=== PATIENT | male | born 1945 | race Two or more races ===

== ENCOUNTER 2020-05-25 12:54 | Emergency (ER) | payer OTHER, SELFPAY ==
[2020-05-25] VITALS (8 sets, daily range): BP systolic 140–173; BP diastolic 54–82; PULSE 64–92; RESP 16–18; TEMP 37–37.2; O2SAT 94–97; BMI 29.0
--- NOTE | ~2020-05-25 | CT_ITS ---
EXAM: CTA chest, abdomen and pelvis CLINICAL INDICATION: Sudden syncope and severe back pain TECHNIQUE: Axial multidetector CTA scan of the chest, abdomen and pelvis was performed following the intravenous administration of 85 cc Omnipaque 350. Coronal, sagittal and MIP reformatted images were also obtained at the acquisition workstation. This CT examination was performed using dose optimization techniques as appropriate, variously including the following: *Automated exposure control *Adjustment of mA and/or kV according to patient size (this includes techniques or standardized protocols for targeted exams where dose is matched to indication/reason for exam; i.e. extremities or head) *Use of iterative reconstruction technique DLP: 620 mGy-cm COMPARISON: None FINDINGS: VASCULAR: Thoracic aorta is normal in caliber. There is mild atherosclerotic disease of the thoracic aorta without evidence of aneurysm or gross dissection. Visualized portions of the proximal bilateral subclavian, common carotid and vertebral arteries are patent. The pulmonary arteries are suboptimally opacified due to contrast bolus timing and therefore not accurately evaluated. The abdominal aorta is nonaneurysmal and demonstrates moderate atherosclerotic disease. Celiac artery is stenotic but patent. Superior mesenteric artery is patent and demonstrates only mild ostial stenosis. Inferior mesenteric artery is patent. Bilateral renal arteries are patent. Deep arteries of the pelvis are patent without gross aneurysm. NON-VASCULAR: Central airways are patent. Lungs are well aerated. Mild emphysematous changes are noted diffusely. There is no lobar consolidation. No pleural effusion or pneumothorax. A few tiny pulmonary nodules are noted, for example a 2 mm right apical nodule on image [id number], series 7. The heart is normal in size. Coronary artery calcifications are present. There is no pericardial effusion. No gross mediastinal lymphadenopathy. Small calcification within the right thyroid lobe. The liver is normal in size but demonstrates diffusely decreased attenuation. Small coarse calcification of the right hepatic lobe. The gallbladder is normal in appearance. The common bile left is normal in caliber although there appears to be nonspecific 1.6 cm cystic abnormality of the pancreatic head. The pancreatic duct is mildly prominent measuring up to 4 mm in diameter. The spleen and adrenal glands are unremarkable. Symmetrically enhancing kidneys without hydronephrosis. There are a few small bilateral hypodensities which are incompletely characterized, for example a partially exophytic 1.5 cm hypodensity off the lateral mid pole of the left kidney. Normal caliber loops of small and large bowel. Moderate colonic diverticulosis without CT evidence to suggest active diverticulitis. 2 cm intraluminal density at the rectosigmoid junction likely represents stool, however, a polyp is not excluded (image 99/137, series 9). Normal appendix. No retroperitoneal lymphadenopathy. The bladder is decompressed and therefore not optimally characterized, however, there does appear to be diffuse bladder wall thickening. The prostate gland is not enlarged. No gross inguinal lymphadenopathy. Diffuse osteopenia with moderate degenerative changes of the thoracolumbar spine. CT/CT angio abdomen pelvis IMPRESSION: 1. Normal caliber thoracic and abdominal aorta without evidence for gross dissection or aneurysm. 2. Mild emphysema. 3. Diffusely decreased liver attenuation suggesting hepatic steatosis. 4. Suspected 1.6 cm cystic abnormality of the pancreatic head. Neoplasm not excluded. Further evaluation with MRI/MRCP recommended. 5. Nonspecific renal hypodensities. These may further evaluated with nonemergent renal ultrasound. 6. Moderate colonic diverticulosis. 7. 2 cm intraluminal density at the rectosigmoid junction likely represents stool, however, a polyp is not excluded. Colonoscopy may be warranted if not recently undertaken.
--- NOTE | 2020-05-25 17:10 | ECG_ITS ---
Test Reason : ABD PAIN Blood Pressure : / mmHG Vent. Rate : 071 BPM Atrial Rate : 071 BPM P-R Int : 138 ms QRS Dur : 092 ms QT Int : 402 ms P-R-T Axes : 059 026 048 degrees QTc Int : 436 ms Normal sinus rhythm with sinus arrhythmia Normal ECG When compared with ECG of 11-JUL-2013 11:48, Sinus rhythm has replaced Atrial fibrillation T wave amplitude has increased in Lateral leads Referred By: Tanna Escobedo Electronically Signed By:JEWELS FLORES
--- NOTE | 2020-05-25 17:25 | ED_ITS ---
HPI - General Adult General Chief complaint: Dizziness Stated complaint: BACK PAIN Time Seen by Provider: 05/25/20 17:00 Source: patient Mode of arrival: EMS Limitations: no limitations History of Present Illness HPI narrative: Patient comes emergency room complaining of left-sided back pain. Patient states it was mild yesterday when it started, not related to exertion or trauma, throughout the day it gradually became worse. Patient states that this afternoon he was walking down the street, states the pain in his back got worse, he got dizzy, states he felt lightheaded, lower himself to the ground, thinks that he passed out for a few seconds. Patient denies hitting his head, no headache, no neck pain, patient is not on blood thinners. Patient states that he was able to get up. Bystanders called the ambulance. Patient states he does not have any chest pain, no abdominal pain, at this time he is only complaining of left-sided back pain, no dizziness. Related Data Previous Rx's Medication Instructions Recorded baclofen 5 mg PO BID #10 tab 05/25/20 Allergies Allergy/AdvReac Type Severity Reaction Status Date / Time No Known Allergies [NKA] Allergy Mild NOT Unverified 10/30/19 16:06 APPLICABLE simvastatin [Zocor] Allergy Unknown Verified 01/24/17 00:00 Review of Systems Review of Systems: Constitutional : No Weight loss, No Fever, No Chills, No Night Sweats, No Fatigue, No Malaise ENT/Mouth : No Hearing loss, No Ear Pain, No Nasal Congestion, No Sinus Pain, No Hoarseness, No sore throat, No Rhinorrhea, No Swallowing Difficulty Eyes: No Eye Pain, No Swelling, No Redness, No Foreign Body, No Discharge, No Vision Changes Cardiovascular : No Chest Pain, No SOB, No Dyspnea on Exertion, No Orthopnea, No Edema, No Palpitations Respiratory : No Cough, No Sputum, No Wheezing, No Smoke Exposure, No Dyspnea Gastrointestinal : No Nausea, No Vomiting, No Diarrhea, No Constipation, No abdominal Pain, No Hematochezia, No Melena Genitourinary : no irregular bleeding, No Dysuria, No Urinary Frequency, No Hematuria, No Urinary Incontinence, No Urgency, No Flank Pain, No Urinary Flow Changes, No Hesitancy Musculoskeletal : Complaining of left-sided back pain, No Joint Swelling Skin : No Skin Lesions, No rash Neuro : No Weakness, No Numbness, No Paresthesias, complaining of brief episode of loss of consciousness Psych : No Anxiety/Panic, No Depression, No SI/HI/AH/VH, No Social Issues, Heme/Lymph: No Bruising, No Bleeding,No Lymphadenopathy Endocrine : No Polyuria, No Polydipsia, No Temperature Intolerance [facility] Past Medical History Medical History High cholesterol Hypertension Social History Social History Alcohol intake: current Alcohol intake frequency: 3 or more drinks per day Alcohol type: beer Smoking Status: Current every day smoker Use of substances other than those prescribed or required for medical reasons: No Advance Directives: No Advance Directives Information Provided: Yes Physical Exam Vital Signs: Vital Signs: Last Vital Signs Temp 98.9 F 05/25/20 17:53 Pulse 86 05/25/20 20:18 Resp 18 05/25/20 20:18 BP 146/78 H 05/25/20 20:18 Pulse Ox 95 05/25/20 20:18 Body Mass Index 29.0 Appearance: Alert. Oriented X3. No acute distress. Eyes: Pupils equal, round and reactive to light. ENT: Pharynx normal. Neck: Normal inspection. Neck supple. No lymph nodes noted. No crepitus CVS: Normal heart rate and rhythm. Pulses normal. Normal S1 and S2 Respiratory: No respiratory distress. Breath sounds normal. No Wheezing. No rales Abdomen: Soft and nontender. No rigidity. No distention. No palpable masses, declined GONZALO Back: No pain to palpation midline, no pain to palpation over the paraspinal muscles or back, pain on back flexion and extension Skin: Skin warm and dry. Normal skin color. Normal skin turgor. Extremities: No lower extremity edema. No lower extremity edema. No Lacerations. No Rash, upper extremity non intentional tremor noted, per patient at baseline for several years (no diagnosis of Parkinson's) Neuro: Oriented X 3. No motor deficit. No sensory deficit. Moving all extermities. No slurred speech. Course Course Course Narrative: I discussed the labs and imaging with the patient. At this time (19:50), patient has not urinated yet, UA pending. I discussed with the patient his CT scan. Patient has suspicious 1.6 cm cystic mass in the head of the pancreas which could represent an new neoplasm, patient will need an MRI or MRCP. Patient also has a 2 cm density in the rectosigmoid junction which could be stool however polyp is not excluded. Patient had a hemoglobin of 14 in 2013 and now is 8.9. Patient declined GONZALO. I discussed with the patient that I recommend that he gets admitted for the GI workup to rule out pancreatic and sigmoid rectal mass, and also for syncope workup. Patient states that he feels well and he wants to go home. Patient declined rectal exam, states that he had a colonoscopy 3 years ago. Patient will likely need another colonoscopy. Urinalysis clean, unlikely to have urethral lithiasis. Patient's pain may likely be musculoskeletal Medical Decision Making Lab Data Result diagrams: 05/25/20 17:21 05/25/20 17:21 Labs: Lab Results 05/25/20 05/25/20 05/25/20 Range/Units 17:21 17:21 17:21 WBC 8.1 (4.8-10.8) X10*3/uL RBC 3.41 L (4.60-5.80) X10*6/uL Hgb 8.9 L (14.0-18.0) g/dl Hct 29.1 L (42-52) % MCV 85.3 (80-98) fL MCH 26.1 L (27.0-33.0) pg MCHC 30.6 L (31.0-36.0) g/dl RDW 17.1 H (11.0-16.0) % Plt Count 222 (160-400) X10*3/uL MPV 10.0 (9.4-12.4) fL Immature Gran % (Auto) 1.0 H (0.0-0.4) % Neut % (Auto) 63.9 (45-73) % Lymph % (Auto) 21.7 (20-40) % [place] % (Auto) 11.9 H (2-11) % Eos % (Auto) 0.9 (0-4) % Baso % (Auto) 0.6 (0-2) % Lymph # (Auto) 1.8 (1.2-4.9) X10*3/uL [place] # (Auto) 1.0 (0.1-1.2) X10*3/uL Eos # (Auto) 0.1 (0.0-0.4) X10*3/uL Baso # (Auto) 0.1 (0.0-0.2) X10*3/uL Abs Immat Gran (auto) 0.08 H (0.00-0.03) X10*3/uL Absolute Neuts (auto) 5.2 (2.0-8.3) X10*3/uL Absolute Nucleated RBC 0.000 (0.0-0.012) X10*3/uL Nucleated RBC % (auto) 0.0 (0.0-0.2) /100WBC D-Dimer NG/ML Sodium 136 (135-145) mmol/L Potassium 5.2 H (3.3-5.1) mmol/L Chloride 103 (96-108) mmol/L Carbon Dioxide 23 (22-29) mmol/L Anion Gap 15 (12-20) BUN 10 (9-16) mg/dL Creatinine 0.91 (0.5-1.4) mg/dL Estim Creat Clear Calc 72.5 Estimated GFR > 60 Random Glucose 89 (60-115) mg/dL Calcium 8.6 (8.4-10.2) mg/dL Total Bilirubin (0.0-1.0) mg/dL Direct Bilirubin (0.0-0.5) mg/dL AST (5-37) U/L ALT (0-40) U/L Alkaline Phosphatase (39-117) U/L Troponin I High Sens 4.4 (<3.5-35.0) ng/L Total Protein (6.5-8.0) g/dL Albumin (3.5-5.0) g/dL Urine Color Urine Appearance Urine pH (5.0-8.0) Ur Specific [place] (1.005-1.025) Urine Protein (NEG-TRACE) MG/DL Urine Glucose (UA) (NEG) MG/DL Urine Ketones (NEG) MG/DL Urine Blood (NEG) Urine Nitrite (NEG) Ur Leukocyte Esterase (NEG) 05/25/20 05/25/20 05/25/20 Range/Units 17:21 17:21 20:21 WBC (4.8-10.8) X10*3/uL RBC (4.60-5.80) X10*6/uL Hgb (14.0-18.0) g/dl Hct (42-52) % MCV (80-98) fL MCH (27.0-33.0) pg MCHC (31.0-36.0) g/dl RDW (11.0-16.0) % Plt Count (160-400) X10*3/uL MPV (9.4-12.4) fL Immature Gran % (Auto) (0.0-0.4) % Neut % (Auto) (45-73) % Lymph % (Auto) (20-40) % [place] % (Auto) (2-11) % Eos % (Auto) (0-4) % Baso % (Auto) (0-2) % Lymph # (Auto) (1.2-4.9) X10*3/uL [place] # (Auto) (0.1-1.2) X10*3/uL Eos # (Auto) (0.0-0.4) X10*3/uL Baso # (Auto) (0.0-0.2) X10*3/uL Abs Immat Gran (auto) (0.00-0.03) X10*3/uL Absolute Neuts (auto) (2.0-8.3) X10*3/uL Absolute Nucleated RBC (0.0-0.012) X10*3/uL Nucleated RBC % (auto) (0.0-0.2) /100WBC D-Dimer 250 NG/ML Sodium 135 (135-145) mmol/L Potassium 5.0 (3.3-5.1) mmol/L Chloride 103 (96-108) mmol/L Carbon Dioxide 23 (22-29) mmol/L Anion Gap 14 (12-20) BUN 10 (9-16) mg/dL Creatinine 0.91 (0.5-1.4) mg/dL Estim Creat Clear Calc 72.5 Estimated GFR > 60 Random Glucose 89 (60-115) mg/dL Calcium 8.5 (8.4-10.2) mg/dL Total Bilirubin 1.1 H (0.0-1.0) mg/dL Direct Bilirubin 0.4 (0.0-0.5) mg/dL AST 40 H (5-37) U/L ALT 27 (0-40) U/L Alkaline Phosphatase 85 (39-117) U/L Troponin I High Sens (<3.5-35.0) ng/L Total Protein 7.4 (6.5-8.0) g/dL Albumin 4.0 (3.5-5.0) g/dL Urine Color YELLOW Urine Appearance CLEAR Urine pH 5.5 (5.0-8.0) Ur Specific [place] 1.010 (1.005-1.025) Urine Protein NEG (NEG-TRACE) MG/DL Urine Glucose (UA) NEG (NEG) MG/DL Urine Ketones NEG (NEG) MG/DL Urine Blood NEG (NEG) Urine Nitrite NEG (NEG) Ur Leukocyte Esterase NEG (NEG) Imaging Data CTA of chest and abdomen and pelvis: Radiologist's impression: VASCULAR: Thoracic aorta is normal in caliber. There is mild atherosclerotic disease of the thoracic aorta without evidence of aneurysm or gross dissection. Visualized portions of the proximal bilateral subclavian, common carotid and vertebral arteries are patent. The pulmonary arteries are suboptimally opacified due to contrast bolus timing and therefore not accurately evaluated. The abdominal aorta is nonaneurysmal and demonstrates moderate atherosclerotic disease. Celiac artery is stenotic but patent. Superior mesenteric artery is patent and demonstrates only mild ostial stenosis. Inferior mesenteric artery is patent. Bilateral renal arteries are patent. Deep arteries of the pelvis are patent without gross aneurysm. NON-VASCULAR: Central airways are patent. Lungs are well aerated. Mild emphysematous changes are noted diffusely. There is no lobar consolidation. No pleural effusion or pneumothorax. A few tiny pulmonary nodules are noted, for example a 2 mm right apical nodule on image [id number]/[id number], series 7. The heart is normal in size. Coronary artery calcifications are present. There is no pericardial effusion. No gross mediastinal lymphadenopathy. Small calcification within the right thyroid lobe. The liver is normal in size but demonstrates diffusely decreased attenuation. Small coarse calcification of the right hepatic lobe. The gallbladder is normal in appearance. The common bile left is normal in caliber although there appears to be nonspecific 1.6 cm cystic abnormality of the pancreatic head. The pancreatic duct is mildly prominent measuring up to 4 mm in diameter. The spleen and adrenal glands are unremarkable. Symmetrically enhancing kidneys without hydronephrosis. There are a few small bilateral hypodensities which are incompletely characterized, for example a partially exophytic 1.5 cm hypodensity off the lateral mid pole of the left kidney. Normal caliber loops of small and large bowel. Moderate colonic diverticulosis without CT evidence to suggest active diverticulitis. 2 cm intraluminal density at the rectosigmoid junction likely represents stool, however, a polyp is not excluded (image 99/137, series 9). Normal appendix. No retroperitoneal lymphadenopathy. The bladder is decompressed and therefore not optimally characterized, however, there does appear to be diffuse bladder wall thickening. The prostate gland is not enlarged. No gross inguinal lymphadenopathy. Diffuse osteopenia with moderate degenerative changes of the thoracolumbar spine. CT/CT angio abdomen pelvis IMPRESSION: 1. Normal caliber thoracic and abdominal aorta without evidence for gross dissection or aneurysm. 2. Mild emphysema. 3. Diffusely decreased liver attenuation suggesting hepatic steatosis. 4. Suspected 1.6 cm cystic abnormality of the pancreatic head. Neoplasm not excluded. Further evaluation with MRI/MRCP recommended. 5. Nonspecific renal hypodensities. These may further evaluated with nonemergent renal ultrasound. 6. Moderate colonic diverticulosis. 7. 2 cm intraluminal density at the rectosigmoid junction likely represents stool, however, a polyp is not excluded. Colonoscopy may be warranted if not recently undertaken. ECG Data Attestation: I personally reviewed and interpreted this ECG as follows: (Normal sinus, sinus arrhythmia, heart rate 71, no ST segment depression or elevation, QTC 436) Discharge Plan Discharge Clinical Impression: Syncope, Anemia, Pancreas cyst, Back pain Patient Disposition: Left Against Medical Advice Instructions: Syncope (ED), Back Pain (ED) Additional Instructions: You refused to be admitted the hospital. Please follow-up with your primary care doctor as it is possible that you may have a cyst versus mass in the pancreas and in the rectosigmoid junction. You will need to be seen by your primary care physician, Gastroenterology, you will likely need a colonoscopy. Please follow-up with your primary care physician tomorrow. If you have any worsening or new symptoms, please return to the emergency room or call 911 Prescriptions: New baclofen 5 mg tablet 5 mg PO BID Qty: 10 RF: 0 Interventions: ED Discharge Assessment Last Done: 05/25/20 22:04 Discharge Date/Time: 05/25/20 22:05
[2020-05-25 17:31] LABS: MANUAL DIFF FLAG NO
[2020-05-25 17:43] LABS: Basophils Absolute Auto 0.1 X10*3/uL (0.0-0.2); Basophils Percent Auto 0.6 % (0-2); Eosinophils Absolute Auto 0.1 X10*3/uL (0.0-0.4); Eosinophils Percent Auto 0.9 % (0-4); Hematocrit 29.1 % (42-52); Hemoglobin 8.9 g/dl (14.0-18.0); Imm Gran Abs Auto 0.08 X10*3/uL (0.00-0.03); Lymphocytes Absolute Auto 1.8 X10*3/uL (1.2-4.9); Lymphocytes Percent Auto 21.7 % (20-40); Mean Corpuscular HGB Conc 30.6 g/dl (31.0-36.0); Mean Corpuscular Hemoglobin 26.1 pg (27.0-33.0); Mean Corpuscular Volume 85.3 fL (80-98); Monocytes Percent Auto 11.9 % (2-11); Neutrophils Absolute Auto 5.2 X10*3/uL (2.0-8.3); Neutrophils Percent Auto 63.9 % (45-73); Platelet Count 222 X10*3/uL (160-400); Red Blood Count 3.41 X10*6/uL (4.60-5.80); Red Cell Distribution Width 17.1 % (11.0-16.0); White Blood Count 8.1 X10*3/uL (4.8-10.8)
[2020-05-25 17:47] LABS: D Dimer 250 NG/ML
[2020-05-25 17:57] LABS: Anion Gap 15 (12-20); Blood Urea Nitrogen 10 mg/dL (9-16); Calcium 8.6 mg/dL (8.4-10.2); Carbon Dioxide 23 mmol/L (22-29); Chloride 103 mmol/L (96-108); Creatinine Clr Calc Pharmacy 72.5; Estimated Glomerular Filt Rate > 60; Glucose Random 89 mg/dL (60-115); Potassium 5.2 mmol/L (3.3-5.1); Sodium 136 mmol/L (135-145)
[2020-05-25 18:00] LABS: Alanine Aminotransferase 27 U/L (0-40); Alkaline Phosphatase 85 U/L (39-117); Anion Gap 14 (12-20); Aspartate Amino Transferase 40 U/L (5-37); Bilirubin Direct 0.4 mg/dL (0.0-0.5); Bilirubin Total 1.1 mg/dL (0.0-1.0); Blood Urea Nitrogen 10 mg/dL (9-16); Calcium 8.5 mg/dL (8.4-10.2); Carbon Dioxide 23 mmol/L (22-29); Chloride 103 mmol/L (96-108); Creatinine Clr Calc Pharmacy 72.5; Estimated Glomerular Filt Rate > 60; Glucose Random 89 mg/dL (60-115); Sodium 135 mmol/L (135-145); Total Protein 7.4 g/dL (6.5-8.0)
[2020-05-25] MEDS: Morphine Sulfate 4 MG/ML CARTRIDGE IVPUSH (18:00)
--- NOTE | 2020-05-25 18:02 | PC.NURSE ---
pt needs assistance for change in position but is steady on feet once up. has gross UE tremor, drinks 3 beers daily and none since yesterday. this rn to make provider aware of tremor. denies ever having dt/sz.
[2020-05-25 18:04] LABS: Troponin-I High Sensitivity 4.4 ng/L (<3.5-35.0)
[2020-05-25] MEDS: iohexoL 350 MG/ML 100 ML INFUS..BTL IV (18:24)
--- NOTE | 2020-05-25 19:51 | PC.NURSE ---
md present to explain finding in ct. pt is refussing rectal exam. willing to give urine. encouraged to stay for admission but refusing.
[2020-05-25 20:37] LABS: Appearance Urine CLEAR; Color Urine YELLOW; Glucose Urine UA NEG (NEG); Leukocyte Esterase Urine NEG (NEG); Nitrite Urine NEG (NEG); PH 5.5 (5.0-8.0); Urine Blood NEG (NEG); Urine Ketones NEG (NEG); Urine Protein NEG (NEG-TRACE)
== END 2020-05-25 22:05 | disposition left against medical advice (07) ==
PROVIDERS: Emergency Provider Emergency Medicine
DX: R42 Dizziness and giddiness (principal); D64.9 Anemia, unspecified; R10.9 Unspecified abdominal pain; R93.5 Abnormal findings on diagnostic imaging of other abdominal regions, including retroperitoneum; K86.2 Cyst of pancreas; K76.0 Fatty (change of) liver, not elsewhere classified; I10 Essential (primary) hypertension; E78.5 Hyperlipidemia, unspecified; F17.200 Nicotine dependence, unspecified, uncomplicated
CPT/HCPCS: 36415; 71275; 74174; 80048; 80076; 81003; 84484; 85025; 85379; 93005; 96374; 99284; J2270; Q9967

== ENCOUNTER 2021-03-28 15:58 | Emergency (ER) | payer OTHER, SELFPAY ==
--- NOTE | ~2021-03-28 | CT_ITS ---
EXAMINATION: CT ABDOMEN AND PELVIS WITH CONTRAST CLINICAL INFORMATION: abd pain COMPARISON: 05/25/2020 TECHNIQUE: Multidetector volumetric imaging was performed from the superior aspect of the liver through the pubic symphysis following administration of 100 mL Omnipaque 300 intravenous contrast. Sagittal and coronal reformatted images were obtained on the technologist workstation.. This CT examination was performed using dose optimization techniques as appropriate, variously including the following: *Automated exposure control *Adjustment of mA and/or kV according to patient size (this includes techniques or standardized protocols for targeted exams where dose is matched to indication/reason for exam; i.e. extremities or head) *Use of iterative reconstruction technique DLP: 648 mGy-cm FINDINGS: LUNG BASES: Minimal dependent atelectasis. Small hiatal hernia. LIVER, GALLBLADDER, AND BILIARY TREE: The liver is normal in size, shape, and attenuation. No focal hepatic lesion or biliary ductal dilatation is present. Subtle focal thickening of the gallbladder fundus again seen possibly due to underlying adenomyomatosis. No pericholecystic inflammatory change or radiopaque gallstones appreciated. PANCREAS: Again there is a low-attenuation cystic structures seen within the pancreatic head/neck measuring up to 1.5 cm in diameter similar to the prior study. This appears to be within the duct. The main branch duct IPMN could have this appearance. There is mild prominence to the distal duct as it extends to the ampulla. No peripancreatic inflammatory changes or fluid. SPLEEN: Unremarkable. ADRENAL GLANDS: Unremarkable. KIDNEYS AND URETERS: There are several low-attenuation probable cysts seen within the left kidney. There is however a partially exophytic 1.2 cm lesion in the lateral midpole of the left kidney that does not measure simple cystic density and a solid left renal lesion cannot be excluded. BLADDER: Unremarkable. GASTROINTESTINAL TRACT: Colon is redundant with scattered colonic diverticulosis but no evidence for diverticulitis. No small bowel abnormality. Stomach is decompressed. ABDOMINAL WALL: No significant hernia is appreciated. LYMPHOVASCULAR STRUCTURES: Vascular calcification within the aorta iliac system. No bulky adenopathy PELVIC VISCERA: Unremarkable. OSSEOUS STRUCTURES: Multilevel degenerative changes in the spine. CT/CT abdomen pelvis w con IMPRESSION: Overall the appearance is similar to the 05/25/2020 study. There are several abnormalities of note 1. Probable adenomyomatosis of the gallbladder fundus. 2. Lesion in the pancreatic head/neck location does appear to be arising within the main pancreatic duct in this location. 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 This does appear to be stable in appearance from the prior study. Dynamic MRI/MRCP may be helpful to evaluate this further. Clinical correlation with endoscopic ultrasound may be helpful to define this further 3. There is a 1.2 cm lesion in the lateral midpole of the left kidney that does not measure cystic density. Uncertain if this represents a hyperdense cyst or a solid renal mass. This can also be assessed with a dynamic MRI with and without contrast. 4. Chronic appearing changes otherwise as described.
--- NOTE | ~2021-03-28 | XR_ITS ---
EXAMINATION: XR CHEST CLINICAL INFORMATION: Fall. COMPARISON: CTA chest, abdomen and pelvis dated from 05/25/2020. Chest radiograph dated from 07/11/2013. TECHNIQUE: AP view of the chest was obtained. FINDINGS: Stable appearance of the cardiomediastinal silhouette. No focal airspace opacities, pleural effusions or pneumothorax. Nonspecific diffuse interstitial prominence. No acute osseous abnormalities. XR/XR chest 1V IMPRESSION: Increased interstitial prominence which is nonspecific and could be associated with asthma, bronchitis, reactive airways disease or atypical infections. No pneumothorax or pleural effusions. No evidence of acutely displaced rib fractures.
--- NOTE | ~2021-03-28 | XR_ITS ---
EXAMINATION: XR HIP, LEFT CLINICAL INFORMATION: Fall, back pain, hip pain. COMPARISON: CTA of the chest abdomen and pelvis dated from 05/25/2020. TECHNIQUE: Two views of the left hip. FINDINGS: No evidence of acute fractures or malalignment. The femoral heads remain well-seated in their respective acetabula. Moderate degenerative changes in both hips with joint space narrowing, subcortical sclerosis and osteophytes. Enthesophytosis in the ischial tuberosities. Pelvic phleboliths. No unexpected radiopaque foreign bodies. XR/XR hip LT w PEL1V IMPRESSION: No acute fractures or malalignment. Moderate degenerative osteoarthritis.
--- NOTE | ~2021-03-28 | XR_ITS ---
EXAMINATION: XR FEMUR, LEFT CLINICAL INFORMATION: Pain COMPARISON: 06/18/2006 TECHNIQUE: AP and lateral views of the left femur were obtained. FINDINGS: Visualized bones are well-mineralized. There are mild 3 compartmental degenerative changes in the left knee joint with marginal spurring. There is no fracture seen. There is small joint effusion seen in suprapatellar. XR/XR femur LT 2V IMPRESSION: Mild degenerative changes and small joint effusion
--- NOTE | ~2021-03-28 | XR_ITS ---
EXAMINATION: XR LUMBOSACRAL SPINE CLINICAL INFORMATION: Fall, back pain. COMPARISON: CTA chest, abdomen and pelvis dated from 05/25/2020. TECHNIQUE: Three views of the lumbosacral spine. FINDINGS: No evidence of acute compression deformities or malalignment. Minimal retrolisthesis of L3 on L4 is unchanged. Redemonstration of moderate to severe multilevel lumbar spondylosis with disc space narrowing, osteophytes and bilateral facet arthropathy leading to varying degrees of neural foraminal encroachment, more noticeable in the lower lumbar spine. Sacroiliac joints are symmetric. Other partially imaged bony structures of the pelvis are within normal limits. Vascular calcifications. Nonobstructive bowel gas pattern. Pelvic phleboliths. XR/XR lumbar spine 2-3V IMPRESSION: No acute fractures or malalignment. Moderate to severe multilevel lumbar spondylosis.
[2021-03-28 16:05] VITALS: BP 147/54; BP 184/90; PULSE 67; PULSE 73; RESP 16; TEMP 37; O2SAT 100; O2SAT 98; BMI 26.5
--- NOTE | 2021-03-28 16:10 | ED_ITS ---
HPI - Fall General Chief Complaint: Fall Stated Complaint: LOW BACK PAIN S/P FALL Time Seen by Provider: 03/28/21 16:09 Source: patient and EMS Mode of arrival: EMS Limitations: no limitations History of Present Illness HPI Narrative: 75-year-old male stents via EMS for lower back and left hip pain. Patient fell on Sunday while at home, experienced some back and hip pain shortly after the fall. Pain has progressively gotten worse and now he is having difficult time ambulating. MD complaint: fall Onset (ago): day(s) (3) Fall from: standing Place fall occurred: home Loss of consciousness: none Prolonged down time: no Symptoms prior to fall: none Context: tripped/slipped and alcohol use Location of injury: back and pelvis Severity: moderate Severity scale (1-10): 7 Quality: aching Associated symptoms (after fall): denies Related Data Home Medications Medication Instructions Recorded Confirmed lisinopril 40 mg tablet 40 mg PO DAILY 03/28/21 03/28/21 metoprolol tartrate 50 mg tablet 50 mg PO BID 03/28/21 03/28/21 nicotine 21 mg/24 hr daily 1 patch TRANSDERMAL DAILY 03/28/21 03/28/21 transdermal patch pravastatin 20 mg tablet 20 mg PO BEDTIME 03/28/21 03/28/21 Allergies Allergy/AdvReac Type Severity Reaction Status Date / Time No Known Allergies [NKA] Allergy Mild NOT Verified 03/28/21 16:09 APPLICABLE simvastatin [Zocor] Allergy Unknown Unknown Unverified 03/28/21 16:09 Review of Systems Review of Systems: Constitutional: No Fever, No Chills ENT/Mouth: No Ear Pain, No Hoarseness, No sore throat Eyes: No Eye Pain, No Swelling, No Redness, No Foreign Body Cardiovascular: No Chest Pain, No SOB Respiratory: No Cough, No Dyspnea Gastrointestinal: No Nausea, No Vomiting, No Diarrhea, No abdominal Pain Genitourinary: No Dysuria, No Hematuria Musculoskeletal: positive lower back and left hip pain, No Myalgias, No Joint Swelling Skin: No Skin lacerations, No rash Neuro: No Weakness, No Numbness, No Paresthesias, No Loss of Consciousness, No Dizziness, No Headache Psych: No Anxiety/Panic, No Depression Heme/Lymph: no easy bruising, no Lymphadenopathy Endocrine: No Polyuria, No Polydipsia Yes all other systems are reviewed and are negative [facility] Past Medical History Attestation statement: The following information was validated with the patient. Source: old records reviewed Medical History High cholesterol Hypertension Social History Social History Alcohol intake: current Alcohol intake frequency: 3 or more drinks per day Alcohol type: beer Advance Directives: No Advance Directives Information Provided: No Physical Exam Vital Signs: Vital Signs: Last Vital Signs Temp 98.0 F 03/28/21 22:25 Pulse 93 03/28/21 22:25 Resp 17 03/28/21 22:25 BP 163/68 H 03/28/21 22: Pulse Ox 97 03/28/21 22:25 BMI result Body Mass Index 26.5 Appearance: Alert. Oriented X3. Moderate distress. Eyes: Pupils equal, round and reactive to light. Sclera nonicteric. ENT: Pharynx normal. Moist mucous membranes. Neck: Normal inspection. Neck supple. CVS: Normal heart rate and rhythm. Pulses normal. Respiratory: No respiratory distress. Breath sounds normal. Abdomen: Soft and diffusely tender to the left side. Obese. Skin: Skin warm and dry. Normal skin color. Normal skin turgor. Extremities: No lower extremity edema. Decreased made of motion to the left lower extremity secondary to pain. Neuro: No motor deficit. No sensory deficit. Cranial nerves 2-12 intact. Course Course Course Narrative: 75-year-old male presents with sustained from a fall. States that he was drinking alcohol Clifford night, and fell over onto his side. Did not hit his head or lose consciousness. Pain is gradually increased over the past few days, and at this point he is having a difficult time ambulating because of the pain. Will order labs, and imaging. 17:40 H&H 7.6, K elevated at 5.6. Troponin is elevated at 51.6 repeat ordered for 20:00. Order for guaiac. 19:03 blood consent signed by patient. Patient verbalized understanding of and risks and benefits of blood transfusion. Agrees with plan. Patient's pain continues to be 10/10 to the left lower extremity, no longer has back pain. Patient is describing pain in his femur. We will now order x-ray of the left femur. 20:[address] Gaxiola, Dr. Gaxiola would like him to be admitted to expedite his workup based on CT scan findings. Dr. Coats gastroenterology consulted by Dr. Gaxiola who agrees with this plan. Discussion with hospitalist regarding plan for admission. 20:38 patient would like to leave against medical advice. Multiple discussions with this FREELANCE DIRECTOR, hospitalist, RN all utilizing interpreter and translator provided information to the patient regarding risks of leaving against medical advice. Patient does continue to request to leave after blood transfusion. Patient wishes respected. Consultations Consultation #1: Minor Time: 20:30 Consultation #2: Hospitalist Time: 20:30 MDM - Fall Differential Diagnosis Differential diagnosis: Likely dislocation and fracture Medical Records Attestation: I reviewed the patient's medical records. Lab Data Attestation: I reviewed the patient's lab results. Result diagrams: 03/28/21 17:05 03/28/21 18:57 Labs: Lab Results 03/28/21 03/28/21 03/28/21 Range/Units 17:05 17:05 17:05 WBC 9.3 (4.8-10.8) X10*3/uL RBC 3.26 L (4.60-5.80) X10*6/uL Hgb 7.2 L (14.0-18.0) g/dl Hct 25.7 L (42.0-52.0) % MCV 78.8 L (80.0-98.0) fL MCH 22.1 L (27.0-33.0) pg MCHC 28.0 L (31.0-36.0) g/dl RDW 18.4 H (11.0-16.0) % Plt Count 316 (160-400) X10*3/uL MPV 9.9 (9.4-12.4) fL Immature Gran % (Auto) 1.2 H (0.0-0.4) % Neut % (Auto) 65.8 (45-73) % Lymph % (Auto) 16.9 L (20-40) % [place] % (Auto) 14.5 H (2-11) % Eos % (Auto) 1.1 (0-4) % Baso % (Auto) 0.5 (0-2) % Lymph # (Auto) 1.6 (1.2-4.9) X10*3/uL [place] # (Auto) 1.4 H (0.1-1.2) X10*3/uL Eos # (Auto) 0.1 (0.0-0.4) X10*3/uL Baso # (Auto) 0.1 (0.0-0.2) X10*3/uL Abs Immat Gran (auto) 0.11 H (0.00-0.03) X10*3/uL Absolute Neuts (auto) 6.1 (2.0-8.3) x10*3/uL Absolute Nucleated RBC 0.000 (0.0-0.012) X10*3/uL Nucleated RBC % (auto) 0.0 (0.0-0.2) /100WBC PT 12.9 (9.9-13.0) SEC INR 1.1 (0.9-1.1) Sodium 137 (135-145) mmol/L Potassium 5.6 H (3.3-5.1) mmol/L Chloride 104 (96-108) mmol/L Carbon Dioxide 25 (22-29) mmol/L Anion Gap 14 (12-20) BUN 16 (9-16) mg/dL Creatinine 1.17 (0.5-1.4) mg/dL Estim Creat Clear Calc 57.1 Estimated GFR > 60 Random Glucose 100 (60-115) mg/dL Calcium 9.2 D (8.4-10.2) mg/dL Total Bilirubin 0.8 (0.0-1.0) mg/dL Direct Bilirubin 0.3 (0.0-0.5) mg/dL AST 27 (5-37) U/L ALT 12 (0-40) U/L Alkaline Phosphatase 108 D (39-117) U/L Troponin I High Sens (<3.5-35.0) ng/L Total Protein 7.4 (6.5-8.0) g/dL Albumin 3.8 (3.5-5.0) g/dL Lipase 71 (8-78) U/L Urine Color Urine Appearance Urine pH (5.0-8.0) Ur Specific [place] (1.005-1.025) Urine Protein (NEG-TRACE) MG/DL Urine Glucose (UA) (NEG) MG/DL Urine Ketones (NEG) MG/DL Urine Blood (NEG) Urine Nitrite (NEG) Ur Leukocyte Esterase (NEG) Stool Occult Blood (NEGATIVE) COVID-19 (GUILLERMO) (Negative) COVID-19 Clin Com Blood Type Antibody Screen Crossmatch 03/28/21 03/28/21 03/28/21 Range/Units 17:05 18:57 18:57 WBC (4.8-10.8) X10*3/uL RBC (4.60-5.80) X10*6/uL Hgb (14.0-18.0) g/dl Hct (42.0-52.0) % MCV (80.0-98.0) fL MCH (27.0-33.0) pg MCHC (31.0-36.0) g/dl RDW (11.0-16.0) % Plt Count (160-400) X10*3/uL MPV (9.4-12.4) fL Immature Gran % (Auto) (0.0-0.4) % Neut % (Auto) (45-73) % Lymph % (Auto) (20-40) % [place] % (Auto) (2-11) % Eos % (Auto) (0-4) % Baso % (Auto) (0-2) % Lymph # (Auto) (1.2-4.9) X10*3/uL [place] # (Auto) (0.1-1.2) X10*3/uL Eos # (Auto) (0.0-0.4) X10*3/uL Baso # (Auto) (0.0-0.2) X10*3/uL Abs Immat Gran (auto) (0.00-0.03) X10*3/uL Absolute Neuts (auto) (2.0-8.3) x10*3/uL Absolute Nucleated RBC (0.0-0.012) X10*3/uL Nucleated RBC % (auto) (0.0-0.2) /100WBC PT (9.9-13.0) SEC INR (0.9-1.1) Sodium 137 (135-145) mmol/L Potassium 4.8 (3.3-5.1) mmol/L Chloride 107 (96-108) mmol/L Carbon Dioxide 23 (22-29) mmol/L Anion Gap 12 (12-20) BUN 15 (9-16) mg/dL Creatinine 1.07 (0.5-1.4) mg/dL Estim Creat Clear Calc 62.5 Estimated GFR > 60 Random Glucose 114 (60-115) mg/dL Calcium 8.6 D (8.4-10.2) mg/dL Total Bilirubin (0.0-1.0) mg/dL Direct Bilirubin (0.0-0.5) mg/dL AST (5-37) U/L ALT (0-40) U/L Alkaline Phosphatase (39-117) U/L Troponin I High Sens 51.6 H (<3.5-35.0) ng/L Total Protein (6.5-8.0) g/dL Albumin (3.5-5.0) g/dL Lipase (8-78) U/L Urine Color Urine Appearance Urine pH (5.0-8.0) Ur Specific [place] (1.005-1.025) Urine Protein (NEG-TRACE) MG/DL Urine Glucose (UA) (NEG) MG/DL Urine Ketones (NEG) MG/DL Urine Blood (NEG) Urine Nitrite (NEG) Ur Leukocyte Esterase (NEG) Stool Occult Blood (NEGATIVE) COVID-19 (GUILLERMO) Negative (Negative) COVID-19 Clin Com See Note Blood Type Antibody Screen Crossmatch 03/28/21 03/28/21 03/28/21 Range/Units 18:57 21:06 21:19 WBC (4.8-10.8) X10*3/uL RBC (4.60-5.80) X10*6/uL Hgb (14.0-18.0) g/dl Hct (42.0-52.0) % MCV (80.0-98.0) fL MCH (27.0-33.0) pg MCHC (31.0-36.0) g/dl RDW (11.0-16.0) % Plt Count (160-400) X10*3/uL MPV (9.4-12.4) fL Immature Gran % (Auto) (0.0-0.4) % Neut % (Auto) (45-73) % Lymph % (Auto) (20-40) % [place] % (Auto) (2-11) % Eos % (Auto) (0-4) % Baso % (Auto) (0-2) % Lymph # (Auto) (1.2-4.9) X10*3/uL [place] # (Auto) (0.1-1.2) X10*3/uL Eos # (Auto) (0.0-0.4) X10*3/uL Baso # (Auto) (0.0-0.2) X10*3/uL Abs Immat Gran (auto) (0.00-0.03) X10*3/uL Absolute Neuts (auto) (2.0-8.3) x10*3/uL Absolute Nucleated RBC (0.0-0.012) X10*3/uL Nucleated RBC % (auto) (0.0-0.2) /100WBC PT (9.9-13.0) SEC INR (0.9-1.1) Sodium (135-145) mmol/L Potassium (3.3-5.1) mmol/L Chloride (96-108) mmol/L Carbon Dioxide (22-29) mmol/L Anion Gap (12-20) BUN (9-16) mg/dL Creatinine (0.5-1.4) mg/dL Estim Creat Clear Calc Estimated GFR Random Glucose (60-115) mg/dL Calcium (8.4-10.2) mg/dL Total Bilirubin (0.0-1.0) mg/dL Direct Bilirubin (0.0-0.5) mg/dL AST (5-37) U/L ALT (0-40) U/L Alkaline Phosphatase (39-117) U/L Troponin I High Sens 29.8 (<3.5-35.0) ng/L Total Protein (6.5-8.0) g/dL Albumin (3.5-5.0) g/dL Lipase (8-78) U/L Urine Color YELLOW Urine Appearance CLEAR Urine pH 6.0 (5.0-8.0) Ur Specific [place] 1.015 (1.005-1.025) Urine Protein NEG (NEG-TRACE) MG/DL Urine Glucose (UA) NEG (NEG) MG/DL Urine Ketones NEG (NEG) MG/DL Urine Blood NEG (NEG) Urine Nitrite NEG (NEG) Ur Leukocyte Esterase NEG (NEG) Stool Occult Blood (NEGATIVE) COVID-19 (GUILLERMO) (Negative) COVID-19 Clin Com Blood Type A Positive Antibody Screen NEGATIVE Crossmatch See Detail 03/28/21 Range/Units Unknown WBC (4.8-10.8) X10*3/uL RBC (4.60-5.80) X10*6/uL Hgb (14.0-18.0) g/dl Hct (42.0-52.0) % MCV (80.0-98.0) fL MCH (27.0-33.0) pg MCHC (31.0-36.0) g/dl RDW (11.0-16.0) % Plt Count (160-400) X10*3/uL MPV (9.4-12.4) fL Immature Gran % (Auto) (0.0-0.4) % Neut % (Auto) (45-73) % Lymph % (Auto) (20-40) % [place] % (Auto) (2-11) % Eos % (Auto) (0-4) % Baso % (Auto) (0-2) % Lymph # (Auto) (1.2-4.9) X10*3/uL [place] # (Auto) (0.1-1.2) X10*3/uL Eos # (Auto) (0.0-0.4) X10*3/uL Baso # (Auto) (0.0-0.2) X10*3/uL Abs Immat Gran (auto) (0.00-0.03) X10*3/uL Absolute Neuts (auto) (2.0-8.3) x10*3/uL Absolute Nucleated RBC (0.0-0.012) X10*3/uL Nucleated RBC % (auto) (0.0-0.2) /100WBC PT (9.9-13.0) SEC INR (0.9-1.1) Sodium (135-145) mmol/L Potassium (3.3-5.1) mmol/L Chloride (96-108) mmol/L Carbon Dioxide (22-29) mmol/L Anion Gap (12-20) BUN (9-16) mg/dL Creatinine (0.5-1.4) mg/dL Estim Creat Clear Calc Estimated GFR Random Glucose (60-115) mg/dL Calcium (8.4-10.2) mg/dL Total Bilirubin (0.0-1.0) mg/dL Direct Bilirubin (0.0-0.5) mg/dL AST (5-37) U/L ALT (0-40) U/L Alkaline Phosphatase (39-117) U/L Troponin I High Sens (<3.5-35.0) ng/L Total Protein (6.5-8.0) g/dL Albumin (3.5-5.0) g/dL Lipase (8-78) U/L Urine Color Urine Appearance Urine pH (5.0-8.0) Ur Specific [place] (1.005-1.025) Urine Protein (NEG-TRACE) MG/DL Urine Glucose (UA) (NEG) MG/DL Urine Ketones (NEG) MG/DL Urine Blood (NEG) Urine Nitrite (NEG) Ur Leukocyte Esterase (NEG) Stool Occult Blood NEGATIVE (NEGATIVE) COVID-19 (GUILLERMO) (Negative) COVID-19 Clin Com Blood Type Antibody Screen Crossmatch Imaging Data Chest x-ray: Attestation: I personally reviewed and interpreted this imaging study as follows: Radiologist's impression: EXAMINATION: XR CHEST CLINICAL INFORMATION: Fall. COMPARISON: CTA chest, abdomen and pelvis dated from 05/25/2020. Chest radiograph dated from 07/11/2013. TECHNIQUE: AP view of the chest was obtained. FINDINGS: Stable appearance of the cardiomediastinal silhouette. No focal airspace opacities, pleural effusions or pneumothorax. Nonspecific diffuse interstitial prominence. No acute osseous abnormalities. XR/XR chest 1V IMPRESSION: Increased interstitial prominence which is nonspecific and could be associated with asthma, bronchitis, reactive airways disease or atypical infections. ? No pneumothorax or pleural effusions. ? No evidence of acutely displaced rib fractures. ? Hip x-ray: Attestation: I personally reviewed and interpreted this imaging study as follows: Radiologist's impression: EXAMINATION: XR HIP, LEFT CLINICAL INFORMATION: Fall, back pain, hip pain. COMPARISON: CTA of the chest abdomen and pelvis dated from 05/25/2020. TECHNIQUE: Two views of the left hip. FINDINGS: No evidence of acute fractures or malalignment. The femoral heads remain well-seated in their respective acetabula. Moderate degenerative changes in both hips with joint space narrowing, subcortical sclerosis and osteophytes. Enthesophytosis in the ischial tuberosities. Pelvic phleboliths. No unexpected radiopaque foreign bodies. XR/XR hip LT w PEL1V IMPRESSION: No acute fractures or malalignment. Moderate degenerative osteoarthritis. Lumbar spine: Attestation: I personally reviewed and interpreted this imaging study as follows: Radiologist's impression: EXAMINATION: XR LUMBOSACRAL SPINE CLINICAL INFORMATION: Fall, back pain. COMPARISON: CTA chest, abdomen and pelvis dated from 05/25/2020. TECHNIQUE: Three views of the lumbosacral spine. FINDINGS: No evidence of acute compression deformities or malalignment. Minimal retrolisthesis of L3 on L4 is unchanged. Redemonstration of moderate to severe multilevel lumbar spondylosis with disc space narrowing, osteophytes and bilateral facet arthropathy leading to varying degrees of neural foraminal encroachment, more noticeable in the lower lumbar spine. Sacroiliac joints are symmetric. Other partially imaged bony structures of the pelvis are within normal limits. Vascular calcifications. Nonobstructive bowel gas pattern. Pelvic phleboliths. XR/XR lumbar spine 2-3V IMPRESSION: No acute fractures or malalignment. ? Moderate to severe multilevel lumbar spondylos CT abdomen pelvis: Attestation: I personally reviewed and interpreted this imaging study as follows: Radiologist's impression: EXAMINATION: CT ABDOMEN AND PELVIS WITH CONTRAST CLINICAL INFORMATION: abd pain COMPARISON: 05/25/2020? TECHNIQUE: Multidetector volumetric imaging was performed from the superior aspect of the liver through the pubic symphysis following administration of 100 mL Omnipaque 300 intravenous contrast. Sagittal and coronal reformatted images were obtained on the technologist workstation.. This CT examination was performed using dose optimization techniques as appropriate, variously including the following: *Automated exposure control *Adjustment of mA and/or kV according to patient size (this includes techniques or standardized protocols for targeted exams where dose is matched to indication/reason for exam; i.e. extremities or head) *Use of iterative reconstruction technique DLP: 648 mGy-cm FINDINGS: LUNG BASES: Minimal dependent atelectasis. Small hiatal hernia.? LIVER, GALLBLADDER, AND BILIARY TREE: The liver is normal in size, shape, and attenuation. No focal hepatic lesion or biliary ductal dilatation is present. Subtle focal thickening of the gallbladder fundus again seen possibly due to underlying adenomyomatosis. No pericholecystic inflammatory change or radiopaque gallstones appreciated.? PANCREAS: Again there is a low-attenuation cystic structures seen within the pancreatic head/neck measuring up to 1.5 cm in diameter similar to the prior study. This appears to be within the duct. The main branch duct IPMN could have this appearance. There is mild prominence to the distal duct as it extends to the ampulla. No peripancreatic inflammatory changes or fluid.? SPLEEN: Unremarkable.? ADRENAL GLANDS: Unremarkable.? KIDNEYS AND URETERS: There are several low-attenuation probable cysts seen within the left kidney. There is however a partially exophytic 1.2 cm lesion in the lateral midpole of the left kidney that does not measure simple cystic density and a solid left renal lesion cannot be excluded.? BLADDER: Unremarkable.? GASTROINTESTINAL TRACT: Colon is redundant with scattered colonic diverticulosis but no evidence for diverticulitis. No small bowel abnormality. Stomach is decompressed.? ABDOMINAL WALL: No significant hernia is appreciated.? LYMPHOVASCULAR STRUCTURES: Vascular calcification within the aorta iliac system. No bulky adenopathy? PELVIC VISCERA: Unremarkable. OSSEOUS STRUCTURES: Multilevel degenerative changes in the spine.? CT/CT abdomen pelvis w con IMPRESSION: Overall the appearance is similar to the 05/25/2020 study. There are several abnormalities of note 1. Probable adenomyomatosis of the gallbladder fundus. 2. Lesion in the pancreatic head/neck location does appear to be arising within the main pancreatic duct in this location. 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 This does appear to be stable in appearance from the prior study. Dynamic MRI/MRCP may be helpful to evaluate this further. Clinical correlation with endoscopic ultrasound may be helpful to define this further 3. There is a 1.2 cm lesion in the lateral midpole of the left kidney that does not measure cystic density. Uncertain if this represents a hyperdense cyst or a solid renal mass. This can also be assessed with a dynamic MRI with and without contrast. 4. Chronic appearing changes otherwise as described. Femur x-ray: Attestation: I personally reviewed and interpreted this imaging study as follows: Radiologist's impression: EXAMINATION: XR FEMUR, LEFT CLINICAL INFORMATION: Pain? COMPARISON: 06/18/2006? TECHNIQUE: AP and lateral views of the left femur were obtained. FINDINGS: Visualized bones are well-mineralized. There are mild 3 compartmental degenerative changes in the left knee joint with marginal spurring. There is no fracture seen. There is small joint effusion seen in suprapatellar. XR/XR femur LT 2V IMPRESSION: Mild degenerative changes and small joint effusion ECG Data Attestation: I personally reviewed and interpreted this ECG as follows: ECG interpretation date: 03/28/21 ECG interpretation time: 17:06 Prior ECG tracings: available for review Interpretation: Vent. rate 71 BPM ME interval 142 ms QRS duration 86 ms QT/QTc 398/432 ms P-R-T axes 66 24 37 Normal sinus rhythm Normal ECG Critical Care Time Critical Care Time Critical Care Time: Yes Total Critical Care Time: 45 Attestation: I have personally provided critical care time exclusive of time spent on separately billable procedures. Time includes review of laboratory data, radiology results, discussion with consultants, and monitoring for potential decompensation. Interventions were performed as documented. Discharge Plan Discharge Clinical Impression: Anemia, Left kidney mass, Pancreatic lesion, Adenomyomatosis of gallbladder, Joint effusion Patient Disposition: Left Against Medical Advice Instructions: Anemia (ED) Additional Instructions: You were evaluated for injury sustained from a fall. Laboratory work indicated anemia, which required a unit of blood to be transfused. CT scan of abdomen pelvis shows adenomyomatosis of the gallbladder, a pancreatic lesion that requires MRI and MRCP and endoscopic ultrasound, and a mass on the left kidney. I discussed your case with Oncology, Dr. Gaxiola, and the hospitalist and we advised admission to the hospital for further testing. You declined admission, and decided for leaving against medical advice. You must follow-up with Oncology and Gastroenterology. These findings are highly suspicious for cancer. You may return at any time for further care. Thank you for choosing this emergency department for evaluation. Please follow-up with primary care physician as needed. Return to the emergency department for any new, concerning, or worsening symptoms. Prescriptions: No Action metoprolol tartrate 50 mg Tablet 50 mg PO BID 0RF nicotine 21 mg/24 hr Patch 24 Hour 1 patch TRANSDERMAL DAILY 0RF pravastatin 20 mg Tablet 20 mg PO BEDTIME 0RF lisinopril 40 mg Tablet 40 mg PO DAILY 0RF Referrals: Pepper Coats MD [Physician] - 2 days (Pancreatic lesion) Yu Gaxiola MD [Physician] - 2 days ([address] scan) Stand Alone Forms: Against Medical Advice Interventions: ED Discharge Assessment Last Done: 03/28/21 23:18
--- NOTE | 2021-03-28 16:13 | ECG_ITS ---
Test Reason : FALL Blood Pressure : / mmHG Vent. Rate : 071 BPM Atrial Rate : 071 BPM P-R Int : 142 ms QRS Dur : 086 ms QT Int : 398 ms P-R-T Axes : 066 024 037 degrees QTc Int : 432 ms Normal sinus rhythm Normal ECG When compared to the previous EKG of No significant changes seen Referred By: Destiny Calvillo Electronically Signed By:BIB ESPINOZA MD
[2021-03-28 17:10] LABS: MANUAL DIFF FLAG NO
[2021-03-28 17:13] VITALS: BP 155/58; PULSE 76; RESP 16; TEMP 37.1; O2SAT 99
[2021-03-28 17:18] LABS: Basophils Absolute Auto 0.1 X10*3/uL (0.0-0.2); Basophils Percent Auto 0.5 % (0-2); Eosinophils Absolute Auto 0.1 X10*3/uL (0.0-0.4); Eosinophils Percent Auto 1.1 % (0-4); Hematocrit 25.7 % (42.0-52.0); Hemoglobin 7.2 g/dl (14.0-18.0); INTERNATIONAL NORM RATIO 1.1 (0.9-1.1); Imm Gran Abs Auto 0.11 X10*3/uL (0.00-0.03); Imm Gran Pct Auto 1.2 % (0.0-0.4); Lymphocytes Absolute Auto 1.6 X10*3/uL (1.2-4.9); Lymphocytes Percent Auto 16.9 % (20-40); Mean Corpuscular Hemoglobin 22.1 pg (27.0-33.0); Mean Corpuscular Volume 78.8 fL (80.0-98.0); Mean Platelet Volume 9.9 fL (9.4-12.4); Monocytes Absolute Auto 1.4 X10*3/uL (0.1-1.2); Monocytes Percent Auto 14.5 % (2-11); Neutrophils Absolute Auto 6.1 x10*3/uL (2.0-8.3); Neutrophils Percent Auto 65.8 % (45-73); Platelet Count 316 X10*3/uL (160-400); Prothrombin Time 12.9 SEC (9.9-13.0); Red Blood Count 3.26 X10*6/uL (4.60-5.80); Red Cell Distribution Width 18.4 % (11.0-16.0); White Blood Count 9.3 X10*3/uL (4.8-10.8)
[2021-03-28 17:29] LABS: Alanine Aminotransferase 12 U/L (0-40); Albumin Level 3.8 g/dL (3.5-5.0); Alkaline Phosphatase 108 U/L (39-117); Anion Gap 14 (12-20); Aspartate Amino Transferase 27 U/L (5-37); Bilirubin Direct 0.3 mg/dL (0.0-0.5); Bilirubin Total 0.8 mg/dL (0.0-1.0); Blood Urea Nitrogen 16 mg/dL (9-16); Calcium 9.2 mg/dL (8.4-10.2); Carbon Dioxide 25 mmol/L (22-29); Chloride 104 mmol/L (96-108); Creatinine Clr Calc Pharmacy 57.1; Estimated Glomerular Filt Rate > 60; Glucose Random 100 mg/dL (60-115); Lipase 71 U/L (8-78); Potassium 5.6 mmol/L (3.3-5.1); Sodium 137 mmol/L (135-145); Total Protein 7.4 g/dL (6.5-8.0)
[2021-03-28 17:34] LABS: Troponin-I High Sensitivity 51.6 ng/L (<3.5-35.0)
[2021-03-28 18:01] LABS: OBS Int Ctl Valid YES; OBS1 NEGATIVE (NEGATIVE)
[2021-03-28] MEDS: Morphine Sulfate 4 MG/ML CARTRIDGE IVPUSH ×2 (18:06→19:18)
[2021-03-28] MEDS: 0.9 % Sodium Chloride 1,000 ML 999 ML IVCONT (18:06)
[2021-03-28] MEDS: Albuterol Sulfate (0.083%) 2.5 MG/3 ML VIAL.NEB 10 MG INHALE (18:06)
[2021-03-28] MEDS: ondansetron HCL 4 MG/2 ML VIAL IVPUSH (18:07)
[2021-03-28 18:11] VITALS: PULSE 78; RESP 20; O2SAT 95
[2021-03-28] MEDS: oxyCODONE HCl Immed Release 5 MG TABLET PO (19:18)
[2021-03-28 19:19] LABS: Anion Gap 12 (12-20); Blood Urea Nitrogen 15 mg/dL (9-16); Calcium 8.6 mg/dL (8.4-10.2); Carbon Dioxide 23 mmol/L (22-29); Chloride 107 mmol/L (96-108); Creatinine Clr Calc Pharmacy 62.5; Estimated Glomerular Filt Rate > 60; Glucose Random 114 mg/dL (60-115); Potassium 4.8 mmol/L (3.3-5.1); Sodium 137 mmol/L (135-145)
[2021-03-28 19:22] LABS: COVID-19 Test Negative (Negative); IDNOW Serial# 9DD0AD1C
--- NOTE | 2021-03-28 19:25 | PC.NURSE ---
provider WIRELESS CELLULAR TECHNICIAN Destiny, rudy RN and smudger at pt bedside to inform pt of questionably CT scan results and discussed pt staying in the hospital. pt adament that he does not want to stay in the hospital. pt reports he wants to go home and get things in order and park his car somewhere safe then he will return to the hospital .
[2021-03-28] MEDS: iohexoL 350 MG/ML 100 ML INFUS..BTL 85 ML IV (19:47)
--- NOTE | 2021-03-28 20:28 | PHA.MEDREC ---
Pharmacy Consult ? Medication Reconciliation Pharmacy has completed the medication reconciliation. [facility]
--- NOTE | 2021-03-28 20:38 | PM.IMHP ---
History of Present Illness Date of Service: 03/28/21 Chief Complaint: fall [facility] Medical History High cholesterol Hypertension Social History Alcohol intake: current Alcohol intake frequency: 3 or more drinks per day Alcohol type: beer Advance Directives: No Advance Directives Information Provided: No Meds Allergies Allergy/AdvReac Type Severity Reaction Status Date / Time No Known Allergies [NKA] Allergy Mild NOT Verified 03/28/21 16:09 APPLICABLE simvastatin [Zocor] Allergy Unknown Unknown Unverified 03/28/21 16:09 Home Medications Medication Instructions Recorded Confirmed Last Taken Type lisinopril 40 mg tablet 40 mg PO DAILY 03/28/21 03/28/21 Unknown History metoprolol tartrate 50 mg tablet 50 mg PO BID 03/28/21 03/28/21 Unknown History nicotine 21 mg/24 hr daily 1 patch TRANSDERMAL DAILY 03/28/21 03/28/21 Unknown History transdermal patch pravastatin 20 mg tablet 20 mg PO BEDTIME 03/28/21 03/28/21 Unknown History Physical Exam Vital Signs and Narrative: Vital Signs: Last Vital Signs Temp 98.8 F 03/28/21 17:13 Pulse 78 03/28/21 18:11 Resp 20 03/28/21 18:11 BP 155/58 H 03/28/21 17:13 Pulse Ox 99 03/28/21 17:13 BMI result Body Mass Index 26.5 Results Labs CBC and Chem 7: 03/28/21 17:05 03/28/21 18:57 Labs: Laboratory Results - last 24 hr 03/28/21 03/28/21 03/28/21 17:05 17:05 17:05 MCV 78.8 L MCH 22.1 L MCHC 28.0 L RDW 18.4 H Plt Count 316 MPV 9.9 Immature Gran % (Auto) 1.2 H Neut % (Auto) 65.8 Lymph % (Auto) 16.9 L [place] % (Auto) 14.5 H Eos % (Auto) 1.1 Baso % (Auto) 0.5 Lymph # (Auto) 1.6 [place] # (Auto) 1.4 H Eos # (Auto) 0.1 Baso # (Auto) 0.1 Abs Immat Gran (auto) 0.11 H Absolute Neuts (auto) 6.1 Absolute Nucleated RBC 0.000 Nucleated RBC % (auto) 0.0 PT 12.9 INR 1.1 Anion Gap 14 Estim Creat Clear Calc 57.1 Estimated GFR > 60 Random Glucose 100 Calcium 9.2 D Total Bilirubin 0.8 Direct Bilirubin 0.3 AST 27 ALT 12 Alkaline Phosphatase 108 D Total Protein 7.4 Albumin 3.8 Lipase 71 Stool Occult Blood COVID-19 (GUILLERMO) COVID-[employer] Blood Type Antibody Screen Crossmatch 03/28/21 03/28/21 03/28/21 18:57 18:57 18:57 MCV MCH MCHC RDW Plt Count MPV Immature Gran % (Auto) Neut % (Auto) Lymph % (Auto) [place] % (Auto) Eos % (Auto) Baso % (Auto) Lymph # (Auto) [place] # (Auto) Eos # (Auto) Baso # (Auto) Abs Immat Gran (auto) Absolute Neuts (auto) Absolute Nucleated RBC Nucleated RBC % (auto) PT INR Anion Gap 12 Estim Creat Clear Calc 62.5 Estimated GFR > 60 Random Glucose 114 Calcium 8.6 D Total Bilirubin Direct Bilirubin AST ALT Alkaline Phosphatase Total Protein Albumin Lipase Stool Occult Blood COVID-19 (GUILLERMO) Negative COVID-[employer] See Note Blood Type A Positive Antibody Screen NEGATIVE Crossmatch See Detail 03/28/21 Unknown MCV MCH MCHC RDW Plt Count MPV Immature Gran % (Auto) Neut % (Auto) Lymph % (Auto) [place] % (Auto) Eos % (Auto) Baso % (Auto) Lymph # (Auto) [place] # (Auto) Eos # (Auto) Baso # (Auto) Abs Immat Gran (auto) Absolute Neuts (auto) Absolute Nucleated RBC Nucleated RBC % (auto) PT INR Anion Gap Estim Creat Clear Calc Estimated GFR Random Glucose Calcium Total Bilirubin Direct Bilirubin AST ALT Alkaline Phosphatase Total Protein Albumin Lipase Stool Occult Blood NEGATIVE COVID-19 (GUILLERMO) COVID-[employer] Blood Type Antibody Screen Crossmatch Imaging Radiologist's Impressions: Impressions Chest X-Ray 03/28/21 16:52 IMPRESSION: Increased interstitial prominence which is nonspecific and could be associated with asthma, bronchitis, reactive airways disease or atypical infections. No pneumothorax or pleural effusions. No evidence of acutely displaced rib fractures. Hip/Pelvis X-Ray 03/28/21 16:52 IMPRESSION: No acute fractures or malalignment. Moderate degenerative osteoarthritis. Lumbar Spine X-Ray 03/28/21 16:52 IMPRESSION: No acute fractures or malalignment. Moderate to severe multilevel lumbar spondylosis. Femur X-Ray 03/28/21 19:18 IMPRESSION: Mild degenerative changes and small joint effusion Abdomen/Pelvis CT 03/28/21 19:49 IMPRESSION: Overall the appearance is similar to the 05/25/2020 study. There are several abnormalities of note 1. Probable adenomyomatosis of the gallbladder fundus. 2. Lesion in the pancreatic head/neck location does appear to be arising within the main pancreatic duct in this location. 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 This does appear to be stable in appearance from the prior study. Dynamic MRI/MRCP may be helpful to evaluate this further. Clinical correlation with endoscopic ultrasound may be helpful to define this further 3. There is a 1.2 cm lesion in the lateral midpole of the left kidney that does not measure cystic density. Uncertain if this represents a hyperdense cyst or a solid renal mass. This can also be assessed with a dynamic MRI with and without contrast. 4. Chronic appearing changes otherwise as described. Quality Stroke Does the patient have a stroke diagnosis?: No VTE Prior VTE?: No VTE Risk Level:: Medical - moderate - high VTE Device Contraindication: Treatment Not Indicated VTE Drug Contraindication: N/A - Med Ordered
[2021-03-28 21:15] VITALS: BP 152/63; PULSE 99; RESP 17; TEMP 37.1
[2021-03-28 21:20] LABS: Appearance Urine CLEAR; Color Urine YELLOW; Glucose Urine UA NEG (NEG); Leukocyte Esterase Urine NEG (NEG); Nitrite Urine NEG (NEG); Specific Gravity - Urine 1.015 (1.005-1.025); Urine Blood NEG (NEG); Urine Ketones NEG (NEG); Urine Protein NEG (NEG-TRACE)
--- NOTE | 2021-03-28 21:21 | PC.NURSE ---
pt receiving blood at this time. reports that he does not want to be admit to the hospital, that he will get his blood but then would like to go home. pt reports he will return another day
[2021-03-28 21:32] VITALS: BP 147/63; PULSE 96; RESP 15; TEMP 37
[2021-03-28 21:42] LABS: Troponin-I High Sensitivity 29.8 ng/L (<3.5-35.0)
--- NOTE | 2021-03-28 21:43 | PM.EVENT ---
Event Note Date of Service: 03/28/21 Event Note: ER wanted to admit the patient but patient refused to admitted. Went speak to the patient he is to stay for further. Patient mentioned that some stuff take care at home and he cannot get admitted to right. ER team to have the patient sign AMA forms
--- NOTE | 2021-03-28 21:50 | PC.NURSE ---
Hospitalist MD Smalls down to see pt. pt continues to report that he is not going to stay in the hospital this evening and that he will be back another day - pt reporting he would like to sign out AMA after his blood has finished administering
[2021-03-28 22:25] VITALS: BP 163/68; PULSE 93; RESP 17; TEMP 36.7; O2SAT 97
== END 2021-03-28 23:19 | disposition left against medical advice (07) ==
PROVIDERS: Nurse Practitioner Family; Emergency Provider Emergency Medicine
DX: D64.9 Anemia, unspecified (principal); K86.9 Disease of pancreas, unspecified; N28.89 Other specified disorders of kidney and ureter; D13.5 Benign neoplasm of extrahepatic bile ducts; M25.452 Effusion, left hip; M54.50 Low back pain, unspecified; I10 Essential (primary) hypertension; E78.5 Hyperlipidemia, unspecified; Z20.822 Contact with and (suspected) exposure to COVID-19; Z79.02 Long term (current) use of antithrombotics/antiplatelets; Z79.899 Other long term (current) drug therapy
CPT/HCPCS: 36415; 36430; 71045; 72100; 73502; 73552; 74177; 80048; 80076; 81003; 82272; 83690; 84484; 85025; 85610; 86850; 86900; 86901; 86923; 87635; 93005; 94640; 94644; 96361; 96374; 96375; 96376; 99284; 99291; J2270; J2405; P9016; Q9967

== ENCOUNTER 2021-04-18 16:20 | Outpatient (REF) | payer OTHER, SELFPAY ==
--- NOTE | ~2021-04-18 | MR_ITS ---
EXAMINATION: MR ABDOMEN WITHOUT CONTRAST CLINICAL INFORMATION: Renal mass. COMPARISON: Previous CT of the abdomen and pelvis March 2021 and CTA of the abdomen May 2020. TECHNIQUE: MR abdomen is performed without gadolinium contrast. IV contrast was not administered as the patient is claustrophobic. There is significant motion artifact. FINDINGS: LUNG BASES: The visualized lung bases are unremarkable. LIVER, GALLBLADDER, AND BILIARY TREE: The liver is normal in size and shape. There is mild fatty infiltration of the liver. No focal liver lesion or biliary ductal dilatation is seen. The gallbladder wall is irregular questionable for adenomyomatosis of the gallbladder wall. There are several small low signal densities adjacent to the gallbladder wall, questionable for small polyps or stones. PANCREAS: There is focal dilatation of the main pancreatic duct in the head of the pancreas measuring up to 1 cm. The pancreas is otherwise unremarkable. SPLEEN: Unremarkable. ADRENAL GLANDS: Unremarkable. KIDNEYS AND URETERS: There is a 1.5 cm lesion exophytic to the lateral midpole of the left kidney. This is slightly high signal on T1-weighted sequences and low signal on T2-weighted sequences. Complex cyst and solid renal lesion, particularly papillary-type renal cell carcinoma, should be considered. Gadolinium was not administered due to motion artifact and claustrophobia. Enhancement of this lesion cannot be assessed. This does not appear appreciably changed in size from May 2020 CTA. There are several adjacent small low signal T1 and high signal T2 lesions in the left kidney probably representing simple cysts. The largest measures 1 cm. The right kidney is normal appearing. GASTROINTESTINAL TRACT: There is diverticulosis of the colon. No ascites. The stomach is unremarkable. ABDOMINAL WALL: No significant hernia is appreciated. LYMPH NODES: No lymphadenopathy. VASCULAR: There is evidence of atherosclerotic disease. OSSEOUS STRUCTURES: Marrow signal normal. There is degenerative disc disease of the spine. MR/MR abdomen wo con IMPRESSION: Limited exam. The patient was claustrophobic and there is significant motion artifact. Gadolinium was not administered. 1.5 cm lesion exophytic to the lateral midpole of the left kidney. This may represent a solid renal lesion, in particular papillary-type renal cell carcinoma versus a complex cyst. This is similar in size to CTA May 2020. Follow-up ultrasound may be helpful. Several adjacent probable simple left renal cysts largest measuring 1 cm. Focal dilatation of the main pancreatic duct in the head of the pancreas. This is similar to May 2020 exam as well. Irregular appearance to the gallbladder wall questionable for adenomyomatosis of the gallbladder wall. Diverticulosis of the colon.
== END 2021-04-18 16:21 | disposition home or self-care (01) ==
LOC: HO.MRI 16:20
PROVIDERS: PCP Internal Medicine; Visit Provider Internal Medicine
DX: N28.89 Other specified disorders of kidney and ureter (principal)
CPT/HCPCS: 74181

== ENCOUNTER → 2021-05-13 13:43 | Outpatient (BNVA) | payer OTHER, SELFPAY | PROVIDERS: PCP Internal Medicine; Visit Provider Urology | DX: C64.9 Malignant neoplasm of unspecified kidney, except renal pelvis (principal) | CPT/HCPCS: 99202 ==

== ENCOUNTER 2021-10-19 10:32 | Outpatient (REF) | payer OTHER, SELFPAY ==
--- NOTE | ~2021-10-19 | US_ITS ---
EXAMINATION: US RETROPERITONEAL LIMITED (RENAL ONLY) CLINICAL INFORMATION: Malignant neoplasm of unspecified kidney, except renal pelvis. COMPARISON: MRI abdomen 04/18/2021. CT abdomen and pelvis 03/28/2021. TECHNIQUE: Real-time imaging of the kidneys. FINDINGS: RIGHT KIDNEY: 10.1 x 5.3 x 5.8 cm (SAG x AP x TRV). The kidney is normal in size, contour, and echogenicity. Renal cortical thickness is normal. No calculi or focal parenchymal lesions. No hydronephrosis. LEFT KIDNEY: 10.4 x 5.1 x 4.6 cm (SAG x AP x TRV). The kidney is normal in size, contour, and echogenicity. Renal cortical thickness is normal. There is a 1.3 x 1.4 x 1.3 cm solid lesion exophytic to the lateral midpole. This does not appear appreciably changed in size from previous exams. There are 2 cysts in the midpole measuring 1.2 x 1 x 1.3 cm and 0.8 x 0.6 x 1 cm. No renal calculi or hydronephrosis. US/US renal BI IMPRESSION: No appreciable change in the left renal mass exophytic to the lateral midpole. Small left renal cysts. Normal right kidney.
== END 2021-10-19 10:33 | disposition home or self-care (01) ==
LOC: HO.HMGCX 10:32
PROVIDERS: Visit Provider Urology
DX: C64.9 Malignant neoplasm of unspecified kidney, except renal pelvis (principal)
CPT/HCPCS: 76775

== ENCOUNTER → 2021-11-15 09:37 | Outpatient (BNVA) | payer OTHER, SELFPAY | PROVIDERS: PCP Internal Medicine; Visit Provider Urology | DX: C64.2 Malignant neoplasm of left kidney, except renal pelvis (principal) | CPT/HCPCS: 99212 ==

== ENCOUNTER 2022-03-12 17:20 | Emergency (ER) | payer OTHER, SELFPAY ==
--- NOTE | 2022-03-12 17:22 | ED.DIZZY ---
HPI - Dizziness General Chief Complaint: General Medical <Santa Menezes CNP - Last Filed: 03/12/22 17:29> Stated Complaint: dizziness/ high blood pressure? <Santa Menezes CNP - Last Filed: 03/12/22 17:29> Time Seen by Provider: 03/12/22 19:51 <Santa Menezes CNP - Last Filed: 03/12/22 17:29> Source: patient <Destiny Calvillo NP - Last Filed: 03/12/22 22:28> Mode of arrival: ambulatory <Destiny Calvillo NP - Last Filed: 03/12/22 22:28> Limitations: no limitations <Destiny Calvillo NP - Last Filed: 03/12/22 22:28> History of Present Illness HPI Narrative: 76-year-old male presents for an episode of dizziness with hypertension after drinking beer. Patient states that he is no longer dizzy, and feels that his dizziness be related to his alcohol intake. <Destiny Calvillo NP - Last Filed: 03/12/22 22:28> MD elicited complaint: dizziness <Destiny Calvillo NP - Last Filed: 03/12/22 22:28> Onset (ago): hour(s) (Within the hour of arrival) <Destiny Calvillo NP - Last Filed: 03/12/22 22:28> Severity: mild <Destniy Calvillo NP - Last Filed: 03/12/22 22:28> Description: lightheadedness <Destiny Calvillo NP - Last Filed: 03/12/22 22:28> Context: other (Alcohol intoxication) <Destiny Calvillo NP - Last Filed: 03/12/22 22:28> History of similar symptoms: Yes <Destiny Calvillo NP - Last Filed: 03/12/22 22:28> Relieving factors: rest <Destiny Calvillo NP - Last Filed: 03/12/22 22:28> Associated symptoms: denies other symptoms <Destiny Calvillo NP - Last Filed: 03/12/22 22:28> Related Data Home Medications: Home Medications Medication Instructions Recorded Confirmed lisinopril 40 mg tablet 40 mg PO DAILY 03/28/21 11/15/21 metoprolol tartrate 50 mg tablet 50 mg PO BID 03/28/21 11/15/21 nicotine 21 mg/24 hr daily 1 patch transdermal DAILY 03/28/21 11/15/21 transdermal patch pravastatin 20 mg tablet 20 mg PO BEDTIME 03/28/21 11/15/21 <Santa Menezes CNP - Last Filed: 03/12/22 17:29> Allergies/Adverse Reactions: Allergies Allergy/AdvReac Type Severity Reaction Status Date / Time No Known Allergies [NKA] Allergy Mild NOT Verified 11/15/21 10:09 APPLICABLE simvastatin [Zocor] Allergy Unknown Unknown Verified 11/15/21 10:09 <Santa Menezes CNP - Last Filed: 03/12/22 17:29> Review of Systems Review of Systems: Constitutional: Resolved dizziness, No Fever, No Chills Cardiovascular: No Chest Pain, No SOB Respiratory: No Cough, No Dyspnea Gastrointestinal: No Nausea, No Vomiting, No Diarrhea, No abdominal Pain Genitourinary: No Dysuria, No Hematuria Musculoskeletal: Note joint pain, No Myalgias, No Joint Swelling Skin: No Skin lacerations, No rash Neuro: No Weakness, No Numbness, No Paresthesias, No Loss of Consciousness, No Dizziness, No Headache <Destiny Calvillo NP - Last Filed: 03/12/22 22:28> Yes all other systems are reviewed and are negative <Destiny Calvillo NP - Last Filed: 03/12/22 22:28> [facility] Past Medical History Attestation statement: The following information was validated with the patient. <Destiny Calvillo NP - Last Filed: 03/12/22 22:28> Source: old records reviewed <Destiny Calvillo NP - Last Filed: 03/12/22 22:28> Medical History: Medical History Atrial fibrillation Borderline hyperlipidemia EtOH dependence High cholesterol HTN (hypertension) Hypertension Inhibited sex excitement Mild cognitive impairment OA (osteoarthritis) Obesity <Santa Menezes CNP - Last Filed: 03/12/22 17:29> Social History Social History: Social History Alcohol intake: current Alcohol intake frequency: 3 or more drinks per day Alcohol type: beer Advance Directives: No Advance Directives Information Provided: Yes <Santa Menezes CNP - Last Filed: 03/12/22 17:29> Physical Exam Vital Signs: Vital Signs: Last Vital Signs Temp 97.5 F 03/12/22 17:26 Pulse 86 03/12/22 17:26 Resp 18 03/12/22 17:26 BP 144/78 H 03/12/22 17:26 Pulse Ox 98 03/12/22 17:26 O2 Del Method 03/12/22 17:26 BMI result Body Mass Index 24.3 <Santa Menezes CNP - Last Filed: 03/12/22 17:29> Vital Signs: Last Vital Signs Temp 97.5 F 03/12/22 17:26 Pulse 86 03/12/22 17:26 Resp 18 03/12/22 17:26 BP 144/78 H 03/12/22 17:26 Pulse Ox 98 03/12/22 17:26 O2 Del Method 03/12/22 17:26 BMI result Body Mass Index 24.3 <Destiny Calvillo NP - Last Filed: 03/12/22 22:28> Appearance: Alert. Oriented X3. No acute distress. Eyes: Pupils equal, round and reactive to light. Sclera nonicteric. ENT: Pharynx normal. Neck: Normal inspection. Neck supple. CVS: Normal heart rate and rhythm. Pulses normal. Respiratory: No respiratory distress. Breath sounds normal. Abdomen: Soft and nontender. Skin: Skin warm and dry. Normal skin color. Normal skin turgor. Extremities: No lower extremity edema. Gait well-balanced well coordinated. Neuro: No motor deficit. No sensory deficit. Cranial nerves 2-12 intact. <Destiny Calvillo NP - Last Filed: 03/12/22 22:28> Course Course Course Narrative: This is an RME: Additional HPI, ROS, PE not included below will be deferred to primary provider. Patient is a 76-year-old male who presents emergency department for evaluation of dizziness with sudden onset at 14:00 has been intermittent since then. Currently without dizziness, resolved 30 minutes ago. Reports history of similar event 2 months ago resulting in a syncopal episode. Patient reports a history of high blood pressure, states he is not sure if this is the cause for his dizziness. he states he has been compliant with his antihypertensives. Denies headache, neck pain, vision changes, chest pain, shortness of breath, nausea, vomiting, numbness or tingling of extremities. No focal neurological deficits. Upon asking he does endorse that he consumed 4 beers today, however the dizziness started before drinking. Reports not being a daily drinker. Plan: labs, EKG <Santa Menezes, BACILIO - Last Filed: 03/12/22 17:29> This is an RME: Additional HPI, ROS, PE not included below will be deferred to primary provider. Patient is a 76-year-old male who presents emergency department for evaluation of dizziness with sudden onset at 14:00 has been intermittent since then. Currently without dizziness, resolved 30 minutes ago. Reports history of similar event 2 months ago resulting in a syncopal episode. Patient reports a history of high blood pressure, states he is not sure if this is the cause for his dizziness. he states he has been compliant with his antihypertensives. Denies headache, neck pain, vision changes, chest pain, shortness of breath, nausea, vomiting, numbness or tingling of extremities. No focal neurological deficits. Upon asking he does endorse that he consumed 4 beers today, however the dizziness started before drinking. Reports not being a daily drinker. Plan: labs, EKG 76-year-old male presents for an episode of dizziness that resolved. Patient has been drinking alcohol throughout the day, and states that he is no longer dizzy upon presentation to the emergency department. NIH stroke scale 0, Mateus coma Scale 15, patient is ambulatory with an even steady gait. Physical exam is unremarkable. Lung sounds clear to auscultation all lobes. Abdomen soft and nontender. Strength 5/5 to all extremities. Labs indicate a white count of 13.2, however patient does not have any upper respiratory symptoms, or indication of infection. Patient's H&H is 11.1/35.1, it is normally 8.9/29.1, he could possibly be dehydrated however I do not feel that IV fluid resuscitation was appropriate at this time. Patient is able to eat and drink without difficulty, I did encourage is patient to drink fluids other than alcohol. Patient is speaking in clear sentences, does not appear to be intoxicated, and would like to be discharged home. Patient verbalized understanding of and agrees to plan of care. Agrees to plan of care discharge home and understands signs symptoms indicating need for emergent intervention. <Destiny Calvillo NP - Last Filed: 03/12/22 22:28> Medical Decision Making Differential Diagnosis Differential Diagnoses: The differential diagnosis associated with the presentation includes <Destiny Calvillo NP - Last Filed: 03/12/22 22:28> Dizziness, alcohol intoxication, dehydration <Destiny Calvillo NP - Last Filed: 03/12/22 22:28> Lab Data MDM Lab Attestation statement: I reviewed the patient's lab results. <Destiny Calvillo NP - Last Filed: 03/12/22 22:28> Result Diagrams: 03/12/22 17:53 03/12/22 17:53 <Santa Menezes CNP - Last Filed: 03/12/22 17:29> Labs: Lab Results 03/12/22 03/12/22 03/12/22 Range/Units 17:52 17:52 17:52 WBC (4.8-10.8) X10*3/uL RBC (4.60-5.80) X10*6/uL Hgb (14.0-18.0) g/dl Hct (42.0-52.0) % MCV (80.0-98.0) fL MCH (27.0-33.0) pg MCHC (31.0-36.0) g/dl RDW (11.0-16.0) % Plt Count (160-400) X10*3/uL MPV (9.4-12.4) fL Immature Gran % (Auto) (0.0-0.4) % Neut % (Auto) (45-73) % Lymph % (Auto) (20-40) % [place] % (Auto) (2-11) % Eos % (Auto) (0-4) % Baso % (Auto) (0-2) % Lymph # (Auto) (1.2-4.9) X10*3/uL [place] # (Auto) (0.1-1.2) X10*3/uL Eos # (Auto) (0.0-0.4) X10*3/uL Baso # (Auto) (0.0-0.2) X10*3/uL Abs Immat Gran (auto) (0.00-0.03) X10*3/uL Absolute Neuts (auto) (2.0-8.3) x10*3/uL Absolute Nucleated RBC (0.0-0.012) X10*3/uL Nucleated RBC % (auto) (0.0-0.2) /100WBC Sodium (135-145) mmol/L Potassium (3.3-5.1) mmol/L Chloride (96-108) mmol/L Carbon Dioxide (22-29) mmol/L Anion Gap (12-20) BUN (9-16) mg/dL Creatinine (0.5-1.4) mg/dL Estim Creat Clear Calc Estimated GFR Random Glucose (60-115) mg/dL Calcium (8.4-10.2) mg/dL Magnesium (1.6-2.6) mg/dL Total Bilirubin (0.0-1.0) mg/dL AST (5-37) U/L ALT (0-40) U/L Alkaline Phosphatase (39-117) U/L Troponin I High Sens 4.1 (<3.5-35.0) ng/L Total Protein (6.5-8.0) g/dL Albumin (3.5-5.0) g/dL Ethyl Alcohol mg/dL COVID-19 (GUILLERMO) Negative (Negative) COVID-19 Clin Com See Note Influenza Type A (FLOR) Cancelled Influenza Type A (PCR) (Negative) Influenza Type B (FLOR) Cancelled Influenza Type B (PCR) (Negative) Influenza A & B Note Cancelled RSV RNA Qual (PCR) (Negative) SARS-CoV-2 RNA (RT-PCR) (Negative) 03/12/22 03/12/22 03/12/22 Range/Units 17:52 17:52 17:53 WBC 13.2 H (4.8-10.8) X10*3/uL RBC 3.73 L (4.60-5.80) X10*6/uL Hgb 11.1 L D (14.0-18.0) g/dl Hct 35.1 L D (42.0-52.0) % MCV 94.1 (80.0-98.0) fL MCH 29.8 (27.0-33.0) pg MCHC 31.6 (31.0-36.0) g/dl RDW 15.6 (11.0-16.0) % Plt Count 306 (160-400) X10*3/uL MPV 10.2 (9.4-12.4) fL Immature Gran % (Auto) 1.5 H (0.0-0.4) % Neut % (Auto) 67.9 (45-73) % Lymph % (Auto) 20.2 (20-40) % [place] % (Auto) 9.4 (2-11) % Eos % (Auto) 0.7 (0-4) % Baso % (Auto) 0.3 (0-2) % Lymph # (Auto) 2.7 (1.2-4.9) X10*3/uL [place] # (Auto) 1.2 (0.1-1.2) X10*3/uL Eos # (Auto) 0.1 (0.0-0.4) X10*3/uL Baso # (Auto) 0.0 (0.0-0.2) X10*3/uL Abs Immat Gran (auto) 0.20 H (0.00-0.03) X10*3/uL Absolute Neuts (auto) 8.9 H (2.0-8.3) x10*3/uL Absolute Nucleated RBC 0.000 (0.0-0.012) X10*3/uL Nucleated RBC % (auto) 0.0 (0.0-0.2) /100WBC Sodium (135-145) mmol/L Potassium (3.3-5.1) mmol/L Chloride (96-108) mmol/L Carbon Dioxide (22-29) mmol/L Anion Gap (12-20) BUN (9-16) mg/dL Creatinine (0.5-1.4) mg/dL Estim Creat Clear Calc Estimated GFR Random Glucose (60-115) mg/dL Calcium (8.4-10.2) mg/dL Magnesium (1.6-2.6) mg/dL Total Bilirubin (0.0-1.0) mg/dL AST (5-37) U/L ALT (0-40) U/L Alkaline Phosphatase (39-117) U/L Troponin I High Sens (<3.5-35.0) ng/L Total Protein (6.5-8.0) g/dL Albumin (3.5-5.0) g/dL Ethyl Alcohol 35 mg/dL COVID-19 (GUILLERMO) (Negative) COVID-19 Clin Com Influenza Type A (FLOR) Influenza Type A (PCR) NEGATIVE (Negative) Influenza Type B (FLOR) Influenza Type B (PCR) NEGATIVE (Negative) Influenza A & B Note RSV RNA Qual (PCR) NEGATIVE (Negative) SARS-CoV-2 RNA (RT-PCR) NEGATIVE (Negative) 03/12/22 Range/Units 17:53 WBC (4.8-10.8) X10*3/uL RBC (4.60-5.80) X10*6/uL Hgb (14.0-18.0) g/dl Hct (42.0-52.0) % MCV (80.0-98.0) fL MCH (27.0-33.0) pg MCHC (31.0-36.0) g/dl RDW (11.0-16.0) % Plt Count (160-400) X10*3/uL MPV (9.4-12.4) fL Immature Gran % (Auto) (0.0-0.4) % Neut % (Auto) (45-73) % Lymph % (Auto) (20-40) % [place] % (Auto) (2-11) % Eos % (Auto) (0-4) % Baso % (Auto) (0-2) % Lymph # (Auto) (1.2-4.9) X10*3/uL [place] # (Auto) (0.1-1.2) X10*3/uL Eos # (Auto) (0.0-0.4) X10*3/uL Baso # (Auto) (0.0-0.2) X10*3/uL Abs Immat Gran (auto) (0.00-0.03) X10*3/uL Absolute Neuts (auto) (2.0-8.3) x10*3/uL Absolute Nucleated RBC (0.0-0.012) X10*3/uL Nucleated RBC % (auto) (0.0-0.2) /100WBC Sodium 131 L (135-145) mmol/L Potassium 4.3 (3.3-5.1) mmol/L Chloride 100 (96-108) mmol/L Carbon Dioxide 20 L (22-29) mmol/L Anion Gap 15 (12-20) BUN 16 (9-16) mg/dL Creatinine 1.04 (0.5-1.4) mg/dL Estim Creat Clear Calc 63.3 Estimated GFR > 60 Random Glucose 89 (60-115) mg/dL Calcium 8.7 (8.4-10.2) mg/dL Magnesium 2.1 (1.6-2.6) mg/dL Total Bilirubin 0.7 (0.0-1.0) mg/dL AST 30 (5-37) U/L ALT 23 (0-40) U/L Alkaline Phosphatase 110 (39-117) U/L Troponin I High Sens (<3.5-35.0) ng/L Total Protein 6.9 (6.5-8.0) g/dL Albumin 3.6 (3.5-5.0) g/dL Ethyl Alcohol mg/dL COVID-19 (GUILLERMO) (Negative) COVID-19 Clin Com Influenza Type A (FLOR) Influenza Type A (PCR) (Negative) Influenza Type B (FLOR) Influenza Type B (PCR) (Negative) Influenza A & B Note RSV RNA Qual (PCR) (Negative) SARS-CoV-2 RNA (RT-PCR) (Negative) <Santa Menezes, BACILIO - Last Filed: 03/12/22 17:29> Lab Results 03/12/22 03/12/22 03/12/22 Range/Units 17:52 17:52 17:52 WBC (4.8-10.8) X10*3/uL RBC (4.60-5.80) X10*6/uL Hgb (14.0-18.0) g/dl Hct (42.0-52.0) % MCV (80.0-98.0) fL MCH (27.0-33.0) pg MCHC (31.0-36.0) g/dl RDW (11.0-16.0) % Plt Count (160-400) X10*3/uL MPV (9.4-12.4) fL Immature Gran % (Auto) (0.0-0.4) % Neut % (Auto) (45-73) % Lymph % (Auto) (20-40) % [place] % (Auto) (2-11) % Eos % (Auto) (0-4) % Baso % (Auto) (0-2) % Lymph # (Auto) (1.2-4.9) X10*3/uL [place] # (Auto) (0.1-1.2) X10*3/uL Eos # (Auto) (0.0-0.4) X10*3/uL Baso # (Auto) (0.0-0.2) X10*3/uL Abs Immat Gran (auto) (0.00-0.03) X10*3/uL Absolute Neuts (auto) (2.0-8.3) x10*3/uL Absolute Nucleated RBC (0.0-0.012) X10*3/uL Nucleated RBC % (auto) (0.0-0.2) /100WBC Sodium (135-145) mmol/L Potassium (3.3-5.1) mmol/L Chloride (96-108) mmol/L Carbon Dioxide (22-29) mmol/L Anion Gap (12-20) BUN (9-16) mg/dL Creatinine (0.5-1.4) mg/dL Estim Creat Clear Calc Estimated GFR Random Glucose (60-115) mg/dL Calcium (8.4-10.2) mg/dL Magnesium (1.6-2.6) mg/dL Total Bilirubin (0.0-1.0) mg/dL AST (5-37) U/L ALT (0-40) U/L Alkaline Phosphatase (39-117) U/L Troponin I High Sens 4.1 (<3.5-35.0) ng/L Total Protein (6.5-8.0) g/dL Albumin (3.5-5.0) g/dL Ethyl Alcohol mg/dL COVID-19 (GUILLERMO) Negative (Negative) COVID-19 Clin Com See Note Influenza Type A (FLOR) Cancelled Influenza Type A (PCR) (Negative) Influenza Type B (FLOR) Cancelled Influenza Type B (PCR) (Negative) Influenza A & B Note Cancelled RSV RNA Qual (PCR) (Negative) SARS-CoV-2 RNA (RT-PCR) (Negative) 03/12/22 03/12/22 03/12/22 Range/Units 17:52 17:52 17:53 WBC 13.2 H (4.8-10.8) X10*3/uL RBC 3.73 L (4.60-5.80) X10*6/uL Hgb 11.1 L D (14.0-18.0) g/dl Hct 35.1 L D (42.0-52.0) % MCV 94.1 (80.0-98.0) fL MCH 29.8 (27.0-33.0) pg MCHC 31.6 (31.0-36.0) g/dl RDW 15.6 (11.0-16.0) % Plt Count 306 (160-400) X10*3/uL MPV 10.2 (9.4-12.4) fL Immature Gran % (Auto) 1.5 H (0.0-0.4) % Neut % (Auto) 67.9 (45-73) % Lymph % (Auto) 20.2 (20-40) % [place] % (Auto) 9.4 (2-11) % Eos % (Auto) 0.7 (0-4) % Baso % (Auto) 0.3 (0-2) % Lymph # (Auto) 2.7 (1.2-4.9) X10*3/uL [place] # (Auto) 1.2 (0.1-1.2) X10*3/uL Eos # (Auto) 0.1 (0.0-0.4) X10*3/uL Baso # (Auto) 0.0 (0.0-0.2) X10*3/uL Abs Immat Gran (auto) 0.20 H (0.00-0.03) X10*3/uL Absolute Neuts (auto) 8.9 H (2.0-8.3) x10*3/uL Absolute Nucleated RBC 0.000 (0.0-0.012) X10*3/uL Nucleated RBC % (auto) 0.0 (0.0-0.2) /100WBC Sodium (135-145) mmol/L Potassium (3.3-5.1) mmol/L Chloride (96-108) mmol/L Carbon Dioxide (22-29) mmol/L Anion Gap (12-20) BUN (9-16) mg/dL Creatinine (0.5-1.4) mg/dL Estim Creat Clear Calc Estimated GFR Random Glucose (60-115) mg/dL Calcium (8.4-10.2) mg/dL Magnesium (1.6-2.6) mg/dL Total Bilirubin (0.0-1.0) mg/dL AST (5-37) U/L ALT (0-40) U/L Alkaline Phosphatase (39-117) U/L Troponin I High Sens (<3.5-35.0) ng/L Total Protein (6.5-8.0) g/dL Albumin (3.5-5.0) g/dL Ethyl Alcohol 35 mg/dL COVID-19 (GUILLERMO) (Negative) COVID-19 Clin Com Influenza Type A (FLOR) Influenza Type A (PCR) NEGATIVE (Negative) Influenza Type B (FLOR) Influenza Type B (PCR) NEGATIVE (Negative) Influenza A & B Note RSV RNA Qual (PCR) NEGATIVE (Negative) SARS-CoV-2 RNA (RT-PCR) NEGATIVE (Negative) 03/12/22 Range/Units 17:53 WBC (4.8-10.8) X10*3/uL RBC (4.60-5.80) X10*6/uL Hgb (14.0-18.0) g/dl Hct (42.0-52.0) % MCV (80.0-98.0) fL MCH (27.0-33.0) pg MCHC (31.0-36.0) g/dl RDW (11.0-16.0) % Plt Count (160-400) X10*3/uL MPV (9.4-12.4) fL Immature Gran % (Auto) (0.0-0.4) % Neut % (Auto) (45-73) % Lymph % (Auto) (20-40) % [place] % (Auto) (2-11) % Eos % (Auto) (0-4) % Baso % (Auto) (0-2) % Lymph # (Auto) (1.2-4.9) X10*3/uL [place] # (Auto) (0.1-1.2) X10*3/uL Eos # (Auto) (0.0-0.4) X10*3/uL Baso # (Auto) (0.0-0.2) X10*3/uL Abs Immat Gran (auto) (0.00-0.03) X10*3/uL Absolute Neuts (auto) (2.0-8.3) x10*3/uL Absolute Nucleated RBC (0.0-0.012) X10*3/uL Nucleated RBC % (auto) (0.0-0.2) /100WBC Sodium 131 L (135-145) mmol/L Potassium 4.3 (3.3-5.1) mmol/L Chloride 100 (96-108) mmol/L Carbon Dioxide 20 L (22-29) mmol/L Anion Gap 15 (12-20) BUN 16 (9-16) mg/dL Creatinine 1.04 (0.5-1.4) mg/dL Estim Creat Clear Calc 63.3 Estimated GFR > 60 Random Glucose 89 (60-115) mg/dL Calcium 8.7 (8.4-10.2) mg/dL Magnesium 2.1 (1.6-2.6) mg/dL Total Bilirubin 0.7 (0.0-1.0) mg/dL AST 30 (5-37) U/L ALT 23 (0-40) U/L Alkaline Phosphatase 110 (39-117) U/L Troponin I High Sens (<3.5-35.0) ng/L Total Protein 6.9 (6.5-8.0) g/dL Albumin 3.6 (3.5-5.0) g/dL Ethyl Alcohol mg/dL COVID-19 (GUILLERMO) (Negative) COVID-19 Clin Com Influenza Type A (FLOR) Influenza Type A (PCR) (Negative) Influenza Type B (FLOR) Influenza Type B (PCR) (Negative) Influenza A & B Note RSV RNA Qual (PCR) (Negative) SARS-CoV-2 RNA (RT-PCR) (Negative) <Destiny Calvillo NP - Last Filed: 03/12/22 22:28> Independent Interpretation I performed an independent interpretation of an: EKG <Destiny Calvillo NP - Last Filed: 03/12/22 22:28> Interpretation: Sinus rhythm with marked sinus arrhythmia with occasional , and consecutive Premature ventricular complexes Abnormal ECG When compared with ECG of 28-MAR-2021 17:06, Premature ventricular complexes are now Present Vent. rate 74 BPM DE interval 136 ms QRS duration 86 ms QT/QTc 380/421 ms P-R-T axes 39 12 34 12-MAR-2022 17:45:01 <Destiny Calvillo NP - Last Filed: 03/12/22 22:28> External Record Review External record reviewed: Outpatient record and Prior outpatient labs <Destiny Calvillo NP - Last Filed: 03/12/22 22:28> Discharge Plan Discharge Clinical Impression: Alcohol use <Santa Menezes CNP - Last Filed: 03/12/22 17:29> Patient Disposition: Home, Self-Care <Santa Menezes CNP - Last Filed: 03/12/22 17:29> Instructions: At-Risk Alcohol Use (ED) <Santa Menezes CNP - Last Filed: 03/12/22 17:29> Additional Instructions: You were evaluated for dizziness after drinking multiple beers. Please consider drinking less alcohol. Thank you for choosing this emergency department for evaluation. Please follow-up with primary care physician as needed. Return to the emergency department for any new, concerning, or worsening symptoms. <Santa Menezes CNP - Last Filed: 03/12/22 17:29> Prescriptions: No Action metoprolol tartrate 50 mg Tablet 50 mg PO BID nicotine 21 mg/24 hr Patch 24 Hour 1 patch TRANSDERMAL DAILY pravastatin 20 mg Tablet 20 mg PO BEDTIME lisinopril 40 mg Tablet 40 mg PO DAILY <Santa Menezes CNP - Last Filed: 03/12/22 17:29> Interventions: ED Discharge Assessment Last Done: 03/12/22 20:58 <Santa Menezes CNP - Last Filed: 03/12/22 17:29> Discharge Date/Time: 03/12/22 20:59 <Santa Menezes CNP - Last Filed: 03/12/22 17:29>
[2022-03-12 17:26] VITALS: BP 144/78; PULSE 86; RESP 18; TEMP 36.4; O2SAT 98; BMI 24.3
--- NOTE | 2022-03-12 17:27 | ECG_ITS ---
Test Reason : DIZZINESS Blood Pressure : / mmHG Vent. Rate : 074 BPM Atrial Rate : 074 BPM P-R Int : 136 ms QRS Dur : 086 ms QT Int : 380 ms P-R-T Axes : 039 012 034 degrees QTc Int : 421 ms Sinus rhythm with marked sinus arrhythmia with occasional , and consecutive Premature ventricular complexes Abnormal ECG When compared with ECG of 28-MAR-2021 17:06, Premature ventricular complexes are now Present Referred By: Santa Menezes Electronically Signed By:Jarred Flores
[2022-03-12 17:59] LABS: MANUAL DIFF FLAG NO
[2022-03-12 18:02] LABS: Basophils Percent Auto 0.3 % (0-2); Eosinophils Absolute Auto 0.1 X10*3/uL (0.0-0.4); Eosinophils Percent Auto 0.7 % (0-4); Hematocrit 35.1 % (42.0-52.0); Hemoglobin 11.1 g/dl (14.0-18.0); Imm Gran Pct Auto 1.5 % (0.0-0.4); Lymphocytes Absolute Auto 2.7 X10*3/uL (1.2-4.9); Lymphocytes Percent Auto 20.2 % (20-40); Mean Corpuscular HGB Conc 31.6 g/dl (31.0-36.0); Mean Corpuscular Hemoglobin 29.8 pg (27.0-33.0); Mean Corpuscular Volume 94.1 fL (80.0-98.0); Mean Platelet Volume 10.2 fL (9.4-12.4); Monocytes Absolute Auto 1.2 X10*3/uL (0.1-1.2); Monocytes Percent Auto 9.4 % (2-11); Neutrophils Absolute Auto 8.9 x10*3/uL (2.0-8.3); Neutrophils Percent Auto 67.9 % (45-73); Platelet Count 306 X10*3/uL (160-400); Red Blood Count 3.73 X10*6/uL (4.60-5.80); Red Cell Distribution Width 15.6 % (11.0-16.0); White Blood Count 13.2 X10*3/uL (4.8-10.8)
[2022-03-12 18:15] LABS: Ethanol 35 mg/dL
[2022-03-12 18:18] LABS: Alanine Aminotransferase 23 U/L (0-40); Albumin Level 3.6 g/dL (3.5-5.0); Alkaline Phosphatase 110 U/L (39-117); Anion Gap 15 (12-20); Aspartate Amino Transferase 30 U/L (5-37); Bilirubin Total 0.7 mg/dL (0.0-1.0); Blood Urea Nitrogen 16 mg/dL (9-16); Calcium 8.7 mg/dL (8.4-10.2); Carbon Dioxide 20 mmol/L (22-29); Chloride 100 mmol/L (96-108); Creatinine Clr Calc Pharmacy 63.3; Estimated Glomerular Filt Rate > 60; Glucose Random 89 mg/dL (60-115); Magnesium 2.1 mg/dL (1.6-2.6); Potassium 4.3 mmol/L (3.3-5.1); Sodium 131 mmol/L (135-145); Total Protein 6.9 g/dL (6.5-8.0)
[2022-03-12 18:24] LABS: COVID-19 Test Negative (Negative); IDNOW Serial# 16C4AD1C
[2022-03-12 18:25] LABS: Troponin-I High Sensitivity 4.1 ng/L (<3.5-35.0)
[2022-03-12 18:49] LABS: Influenza A PCR NEGATIVE (Negative); Influenza B PCR NEGATIVE (Negative); Resp Syncy Virus RNA Qual PCR NEGATIVE (Negative); SARS COV2 PCR INHOUSE NEGATIVE (Negative)
--- NOTE | 2022-03-12 20:57 | PC.NURSE ---
per provider Destiny, pt is ready for discharge. Reviewed discharge with pt. pt verbalized understanding. Pt a&o, no sob or chest pain. pt able to answer appropriately . Notified RN Naty.
== END 2022-03-12 20:59 | disposition home or self-care (01) ==
PROVIDERS: Nurse Practitioner Family; Emergency Provider Internal Medicine
DX: R42 Dizziness and giddiness (principal); I10 Essential (primary) hypertension; F10.10 Alcohol abuse, uncomplicated; Y90.1 Blood alcohol level of 20-39 mg/100 ml; Z20.822 Contact with and (suspected) exposure to COVID-19; Z20.828 Contact with and (suspected) exposure to other viral communicable diseases; Z79.899 Other long term (current) drug therapy
CPT/HCPCS: 0241U; 36415; 80053; 82077; 83735; 84484; 85025; 87635; 93005; 99283

== ENCOUNTER 2022-04-20 15:31 | Emergency (ER) | payer OTHER, SELFPAY ==
--- NOTE | ~2022-04-20 | CT_ITS ---
EXAMINATION: CT HEAD WITHOUT CONTRAST CLINICAL INFORMATION: Dizziness. COMPARISON: CT head 09/16/2007. TECHNIQUE: Contiguous axial imaging was performed from the skull base to vertex without intravenous administration of contrast. This CT examination was performed using dose optimization techniques as appropriate, variously including the following: *Automated exposure control *Adjustment of mA and/or kV according to patient size (this includes techniques or standardized protocols for targeted exams where dose is matched to indication/reason for exam; i.e. extremities or head) *Use of iterative reconstruction technique DLP: 732 mGy-cm FINDINGS: A 0.4 cm hyperdense focus in the left frontal lobe (4:30) is unchanged compared to 09/16/2007. There is no evidence of acute intracranial hemorrhage or edematous territorial infarction. A few foci of hypoattenuation in the periventricular and deep white matter are consistent with mild microangiopathy. Fontenot-white matter differentiation is preserved. Proportional prominence of the ventricles and sulcal spaces. No evidence for obstructive hydrocephalus. No abnormal mass effect or midline shift. No extra-axial fluid collections. No acute soft tissue or osseous abnormalities. Unchanged nonaggressive appearing cystic lucency in the right mandibular rami, likely degenerative in nature. Mucosal thickening of the paranasal sinuses with small mucous retention cysts in the maxillary sinuses. The mastoids and middle ear cavities are clear. A 0.6 cm soft tissue nodule in the right posterior scalp at the vertex (4:4) likely represents a sebaceous cyst or pilomatricoma. CT/CT head/brain wo IV con IMPRESSION: 1. No evidence of acute intracranial hemorrhage or edematous territorial infarction. 2. Small hyperdense focus in the left frontal lobe is unchanged dating back to 2007, which is reassuring, favoring to represent a benign calcification. 3. Soft tissue nodule in the scalp of the right posterior vertex, likely a sebaceous cyst or pilomatricoma. Correlation with direct visualization could be obtained.
--- NOTE | 2022-04-20 15:33 | ECG_ITS ---
Test Reason : PRE-SYNCOPE Blood Pressure : / mmHG Vent. Rate : 077 BPM Atrial Rate : 077 BPM P-R Int : 136 ms QRS Dur : 090 ms QT Int : 394 ms P-R-T Axes : 046 005 035 degrees QTc Int : 445 ms Sinus rhythm with Premature atrial complexes with Aberrant conduction Minimal voltage criteria for LVH, may be normal variant ( Chente product ) Borderline ECG When compared with ECG of 12-MAR-2022 17:45, No significant changes seen Referred By: Santa Menezes Electronically Signed By:JEWELS FLORES
[2022-04-20 15:46] VITALS: BP 144/72; PULSE 74; O2SAT 98; BMI 25.8
--- NOTE | 2022-04-20 16:15 | ED_ITS ---
HPI - Syncope General Chief Complaint: Dizziness Stated Complaint: near syncope Time Seen by Provider: 04/20/22 16:10 Source: patient Mode of arrival: EMS Limitations: no limitations History of Present Illness HPI narrative: Patient is 71 years old with history of hypertension hyperlipidemia alcohol dependence comes in for dizziness after drinking beer same in the past complaining of vertiginous feeling for last 2 days does have chronic tinnitus today prior to arrival got worse feels off balance no headache no recent fall no nausea no vomiting no focal weakness dizziness gets worse on movements no neck pain which did not have any CT scan for dizziness in the past patient did have left-sided chest pain and shoulder pain lasted for 2 hours patient does patient complain of bilateral tinnitus for years Related Data Home Medications Medication Instructions Recorded Confirmed lisinopril 40 mg tablet 40 mg PO DAILY 03/28/21 11/15/21 metoprolol tartrate 50 mg tablet 50 mg PO BID 03/28/21 11/15/21 nicotine 21 mg/24 hr daily 1 patch transdermal DAILY 03/28/21 11/15/21 transdermal patch pravastatin 20 mg tablet 20 mg PO BEDTIME 03/28/21 11/15/21 Previous Rx's Medication Instructions Recorded aspirin 81 mg tablet,delayed 81 mg PO DAILY #30 tabs 04/20/22 release meclizine 25 mg tablet 25 mg PO TID PRN dizziness #20 tabs 04/20/22 Allergies Allergy/AdvReac Type Severity Reaction Status Date / Time No Known Allergies [NKA] Allergy Mild NOT Verified 11/15/21 10:09 APPLICABLE simvastatin [Zocor] Allergy Unknown Unknown Verified 11/15/21 10:09 Review of Systems Review of Systems: Yes all other systems are reviewed and are negative [facility] Past Medical History Medical History Atrial fibrillation Borderline hyperlipidemia EtOH dependence High cholesterol HTN (hypertension) Hypertension Inhibited sex excitement Mild cognitive impairment OA (osteoarthritis) Obesity Social History Social History Alcohol intake: current Alcohol intake frequency: 3 or more drinks per day Alcohol type: beer Advance Directives: No Advance Directives Information Provided: Yes Physical Exam Vital Signs: Vital Signs: Last Vital Signs Pulse 75 04/20/22 19:02 Resp 18 04/20/22 19:02 BP 142/81 H 04/20/22 19:02 Pulse Ox 97 04/20/22 19:02 O2 Del Method 04/20/22 19:02 BMI result Body Mass Index 25.8 Appearance: Alert. Oriented X3. No acute distress. Denies any dizziness at this time Eyes: PERRLA, No Nystagmus ENT: Pharynx normal. Oral Mucosa moist Neck: Normal inspection. Neck supple. CVS: Normal heart rate and rhythm. Pulses normal. Respiratory: No respiratory distress. Equal air entry bilateral, no wheezing/rales/rhonchi Abdomen: Soft and nontender. Bowel sounds are present, no mass palpable, no CVA tenderness Skin: Skin warm and dry. Normal skin color. Normal skin turgor. Extremities: No lower extremity edema. No calf tenderness Neuro: Oriented X 3. No motor deficit. No sensory deficit.No cerebellar signs , cranial nerves II-XII intact Medications Administered Discontinued Medications Generic Name Dose Route Start Last Admin Trade Name Freq PRN Reason Stop Dose Admin Meclizine HCl 25 mg 04/20/22 16:26 04/20/22 17:15 Meclizine Hcl 25 Mg Tablet PO 04/20/22 16:27 25 mg ONCE ONE Administration Medical Decision Making Medical Decision Making [facility] Narrative: Patient with benign positional vertigo with history of chest pain last night no significant change in delta troponin EKG without any ischemic changes patient chest pain-free at this time advised patient to follow supercalender operator helper in 1-2 days for further workup will prescribe meclizine also no chest pain at this time patient feels comfortable going home will give aspirin Lab Data [facility] Lab Attestation statement: I reviewed the patient's lab results. 04/20/22 17:07 04/20/22 17:07 Labs: Lab Results 04/20/22 04/20/22 04/20/22 Range/Units 15:59 15:59 17:07 WBC 13.1 H (4.8-10.8) X10*3/uL RBC 3.86 L (4.60-5.80) X10*6/uL Hgb 11.3 L (14.0-18.0) g/dl Hct 35.0 L (42.0-52.0) % MCV 90.7 (80.0-98.0) fL MCH 29.3 (27.0-33.0) pg MCHC 32.3 (31.0-36.0) g/dl RDW 15.9 (11.0-16.0) % Plt Count 281 (160-400) X10*3/uL MPV 10.4 (9.4-12.4) fL Immature Gran % (Auto) 1.1 H (0.0-0.4) % Neut % (Auto) 74.4 H (45-73) % Lymph % (Auto) 15.0 L (20-40) % [place] % (Auto) 8.7 (2-11) % Eos % (Auto) 0.3 (0-4) % Baso % (Auto) 0.5 (0-2) % Lymph # (Auto) 2.0 (1.2-4.9) X10*3/uL [place] # (Auto) 1.1 (0.1-1.2) X10*3/uL Eos # (Auto) 0.0 (0.0-0.4) X10*3/uL Baso # (Auto) 0.1 (0.0-0.2) X10*3/uL Abs Immat Gran (auto) 0.15 H (0.00-0.03) X10*3/uL Absolute Neuts (auto) 9.8 H (2.0-8.3) x10*3/uL Absolute Nucleated RBC 0.000 (0.0-0.012) X10*3/uL Nucleated RBC % (auto) 0.0 (0.0-0.2) /100WBC Sodium (135-145) mmol/L Potassium (3.3-5.1) mmol/L Chloride (96-108) mmol/L Carbon Dioxide (22-29) mmol/L Anion Gap (12-20) BUN (9-16) mg/dL Creatinine (0.5-1.4) mg/dL Estim Creat Clear Calc Estimated GFR Random Glucose (60-115) mg/dL Calcium (8.4-10.2) mg/dL Magnesium (1.6-2.6) mg/dL Total Bilirubin (0.0-1.0) mg/dL AST (5-37) U/L ALT (0-40) U/L Alkaline Phosphatase (39-117) U/L Total Creatine Kinase (38-174) U/L Troponin I High Sens (<3.5-35.0) ng/L B-Natriuretic Peptide (<100) pg/mL Total Protein (6.5-8.0) g/dL Albumin (3.5-5.0) g/dL Ethyl Alcohol mg/dL COVID-19 (GUILLERMO) Negative (Negative) COVID-19 Clin Com See Note Influenza Type A (FLOR) Negative (Negative) Influenza Type B (FLOR) Negative (Negative) Influenza A & B Note See Note 04/20/22 04/20/22 04/20/22 Range/Units 17:07 17:07 17:07 WBC (4.8-10.8) X10*3/uL RBC (4.60-5.80) X10*6/uL Hgb (14.0-18.0) g/dl Hct (42.0-52.0) % MCV (80.0-98.0) fL MCH (27.0-33.0) pg MCHC (31.0-36.0) g/dl RDW (11.0-16.0) % Plt Count (160-400) X10*3/uL MPV (9.4-12.4) fL Immature Gran % (Auto) (0.0-0.4) % Neut % (Auto) (45-73) % Lymph % (Auto) (20-40) % [place] % (Auto) (2-11) % Eos % (Auto) (0-4) % Baso % (Auto) (0-2) % Lymph # (Auto) (1.2-4.9) X10*3/uL [place] # (Auto) (0.1-1.2) X10*3/uL Eos # (Auto) (0.0-0.4) X10*3/uL Baso # (Auto) (0.0-0.2) X10*3/uL Abs Immat Gran (auto) (0.00-0.03) X10*3/uL Absolute Neuts (auto) (2.0-8.3) x10*3/uL Absolute Nucleated RBC (0.0-0.012) X10*3/uL Nucleated RBC % (auto) (0.0-0.2) /100WBC Sodium 135 (135-145) mmol/L Potassium 5.2 H D (3.3-5.1) mmol/L Chloride 103 (96-108) mmol/L Carbon Dioxide 24 (22-29) mmol/L Anion Gap 13 (12-20) BUN 18 H (9-16) mg/dL Creatinine 1.36 (0.5-1.4) mg/dL Estim Creat Clear Calc 48.4 Estimated GFR 51 Random Glucose 94 (60-115) mg/dL Calcium 9.0 (8.4-10.2) mg/dL Magnesium 2.0 (1.6-2.6) mg/dL Total Bilirubin 0.8 (0.0-1.0) mg/dL AST 35 (5-37) U/L ALT 19 (0-40) U/L Alkaline Phosphatase 95 (39-117) U/L Total Creatine Kinase 172 (38-174) U/L Troponin I High Sens 102.3 H* D (<3.5-35.0) ng/L B-Natriuretic Peptide 196 H (<100) pg/mL Total Protein 7.0 (6.5-8.0) g/dL Albumin 3.8 (3.5-5.0) g/dL Ethyl Alcohol mg/dL COVID-19 (GUILLERMO) (Negative) COVID-19 Clin Com Influenza Type A (FLOR) (Negative) Influenza Type B (FLOR) (Negative) Influenza A & B Note 04/20/22 04/20/22 Range/Units 17:07 18:27 WBC (4.8-10.8) X10*3/uL RBC (4.60-5.80) X10*6/uL Hgb (14.0-18.0) g/dl Hct (42.0-52.0) % MCV (80.0-98.0) fL MCH (27.0-33.0) pg MCHC (31.0-36.0) g/dl RDW (11.0-16.0) % Plt Count (160-400) X10*3/uL MPV (9.4-12.4) fL Immature Gran % (Auto) (0.0-0.4) % Neut % (Auto) (45-73) % Lymph % (Auto) (20-40) % [place] % (Auto) (2-11) % Eos % (Auto) (0-4) % Baso % (Auto) (0-2) % Lymph # (Auto) (1.2-4.9) X10*3/uL [place] # (Auto) (0.1-1.2) X10*3/uL Eos # (Auto) (0.0-0.4) X10*3/uL Baso # (Auto) (0.0-0.2) X10*3/uL Abs Immat Gran (auto) (0.00-0.03) X10*3/uL Absolute Neuts (auto) (2.0-8.3) x10*3/uL Absolute Nucleated RBC (0.0-0.012) X10*3/uL Nucleated RBC % (auto) (0.0-0.2) /100WBC Sodium (135-145) mmol/L Potassium (3.3-5.1) mmol/L Chloride (96-108) mmol/L Carbon Dioxide (22-29) mmol/L Anion Gap (12-20) BUN (9-16) mg/dL Creatinine (0.5-1.4) mg/dL Estim Creat Clear Calc Estimated GFR Random Glucose (60-115) mg/dL Calcium (8.4-10.2) mg/dL Magnesium (1.6-2.6) mg/dL Total Bilirubin (0.0-1.0) mg/dL AST (5-37) U/L ALT (0-40) U/L Alkaline Phosphatase (39-117) U/L Total Creatine Kinase (38-174) U/L Troponin I High Sens 83.8 H (<3.5-35.0) ng/L B-Natriuretic Peptide (<100) pg/mL Total Protein (6.5-8.0) g/dL Albumin (3.5-5.0) g/dL Ethyl Alcohol < 10 mg/dL COVID-19 (GUILLERMO) (Negative) COVID-19 Clin Com Influenza Type A (FLOR) (Negative) Influenza Type B (FLOR) (Negative) Influenza A & B Note Independent Interpretation I performed an independent interpretation of an: EKG Interpretation: Normal sinus rhythm heart rate 77 beats per minute, PACs present LVH no acute ischemic change Discharge Plan Discharge Clinical Impression: Benign paroxysmal positional vertigo, Chest pain Patient Disposition: Home, Self-Care Instructions: Chest Pain (ED), Benign Paroxysmal Positional Vertigo (ED) Additional Instructions: Care and caution as advised Follow-up with supercalender operator helper for further workup about chest pain including stress test Start taking baby aspirin daily Report to the ER if recurrence of the chest pain Medication for dizziness as prescribed Prescriptions: New meclizine 25 mg tablet 25 mg PO TID PRN (Reason: dizziness) Qty: 20 0RF aspirin 81 mg tablet,delayed release (DR/EC) 81 mg PO DAILY Qty: 30 0RF No Action metoprolol tartrate 50 mg Tablet 50 mg PO BID nicotine 21 mg/24 hr Patch 24 Hour 1 patch TRANSDERMAL DAILY pravastatin 20 mg Tablet 20 mg PO BEDTIME lisinopril 40 mg Tablet 40 mg PO DAILY Referrals: Vern Calix MD [Physician] - 3 days Interventions: ED Discharge Assessment Last Done: 04/20/22 20:35 Discharge Date/Time: 04/20/22 20:37
[2022-04-20 16:34] LABS: COVID-19 Test Negative (Negative); IDNOW Serial# 55D5AD1C
[2022-04-20 16:45] LABS: IDNOW Serial# 9DB6401D; Influenza A Negative (Negative); Influenza B2 Negative (Negative)
[2022-04-20] MEDS: Meclizine HCl 25 MG TABLET PO (17:15)
[2022-04-20 17:18] LABS: MANUAL DIFF FLAG NO
[2022-04-20 17:19] LABS: Basophils Absolute Auto 0.1 X10*3/uL (0.0-0.2); Basophils Percent Auto 0.5 % (0-2); Eosinophils Percent Auto 0.3 % (0-4); Hemoglobin 11.3 g/dl (14.0-18.0); Imm Gran Abs Auto 0.15 X10*3/uL (0.00-0.03); Imm Gran Pct Auto 1.1 % (0.0-0.4); Mean Corpuscular HGB Conc 32.3 g/dl (31.0-36.0); Mean Corpuscular Hemoglobin 29.3 pg (27.0-33.0); Mean Corpuscular Volume 90.7 fL (80.0-98.0); Mean Platelet Volume 10.4 fL (9.4-12.4); Monocytes Absolute Auto 1.1 X10*3/uL (0.1-1.2); Monocytes Percent Auto 8.7 % (2-11); Neutrophils Absolute Auto 9.8 x10*3/uL (2.0-8.3); Neutrophils Percent Auto 74.4 % (45-73); Platelet Count 281 X10*3/uL (160-400); Red Blood Count 3.86 X10*6/uL (4.60-5.80); Red Cell Distribution Width 15.9 % (11.0-16.0); White Blood Count 13.1 X10*3/uL (4.8-10.8)
[2022-04-20 17:50] LABS: Ethanol < 10 mg/dL
[2022-04-20 17:53] VITALS: BP 144/75; PULSE 78
[2022-04-20 17:53] LABS: Alanine Aminotransferase 19 U/L (0-40); Albumin Level 3.8 g/dL (3.5-5.0); Alkaline Phosphatase 95 U/L (39-117); Anion Gap 13 (12-20); Aspartate Amino Transferase 35 U/L (5-37); Bilirubin Total 0.8 mg/dL (0.0-1.0); Blood Urea Nitrogen 18 mg/dL (9-16); Carbon Dioxide 24 mmol/L (22-29); Chloride 103 mmol/L (96-108); Creatinine Clr Calc Pharmacy 48.4; Estimated Glomerular Filt Rate 51; Glucose Random 94 mg/dL (60-115); Potassium 5.2 mmol/L (3.3-5.1); Sodium 135 mmol/L (135-145)
[2022-04-20 17:54] VITALS: BP 146/79; PULSE 83
[2022-04-20 17:55] VITALS: BP 143/78; PULSE 89
[2022-04-20 17:56] LABS: B Type Natriuretic Peptide 196 pg/mL (<100)
[2022-04-20 18:09] LABS: Troponin-I High Sensitivity 102.3 ng/L (<3.5-35.0)
[2022-04-20 18:52] LABS: Troponin-I High Sensitivity 83.8 ng/L (<3.5-35.0)
[2022-04-20 19:02] VITALS: BP 142/81; PULSE 75; RESP 18; O2SAT 97
== END 2022-04-20 20:37 | disposition home or self-care (01) ==
PROVIDERS: Nurse Practitioner Family; Emergency Provider Internal Medicine
DX: H81.13 Benign paroxysmal vertigo, bilateral (principal); R07.89 Other chest pain; R06.02 Shortness of breath; Z20.822 Contact with and (suspected) exposure to COVID-19; Z20.828 Contact with and (suspected) exposure to other viral communicable diseases; Z79.899 Other long term (current) drug therapy
CPT/HCPCS: 36415; 70450; 80053; 82077; 82550; 83735; 83880; 84484; 85025; 87502; 87635; 93005; 99283; 99284

== ENCOUNTER 2022-04-21 12:40 | Outpatient (REF) | payer OTHER, SELFPAY ==
--- NOTE | ~2022-04-21 | US_ITS ---
EXAMINATION: US RETROPERITONEAL LIMITED (RENAL ONLY) CLINICAL INFORMATION: Malignant neoplasm of unspecified kidney, except renal pelvis. COMPARISON: Renal ultrasound 10/19/2021. MRI abdomen 04/18/2021. CT abdomen and pelvis 03/28/2021. TECHNIQUE: Real-time imaging of the kidneys. FINDINGS: RIGHT KIDNEY: 10.5 x 5.1 x 6.4 cm (SAG x AP x TRV). The kidney is normal in size, contour, and echogenicity. Renal cortical thickness is normal. No calculi or focal parenchymal lesions. No hydronephrosis. LEFT KIDNEY: 10.5 x 5.2 x 4.0 cm (SAG x AP x TRV). The kidney is normal in size, contour, and echogenicity. Renal cortical thickness is normal. No renal calculi or hydronephrosis. There is a solid exophytic upper to mid pole renal mass present measuring 1.1 x 1.2 x 1.3 cm. Previous ultrasound measurements are 1.3 x 1.4 x 1.3 cm. On the prior MRI abdomen, this measured 1.5 cm. Some benign Bosniak class I left-sided renal cysts are again seen which need no additional imaging or follow up. US/US renal BI IMPRESSION: Solid left renal mass, slightly smaller than previously noted, although differences may be within the margin of measuring error.
== END 2022-04-21 12:41 | disposition home or self-care (01) ==
LOC: HO.US 12:40
PROVIDERS: Visit Provider Urology
DX: C64.9 Malignant neoplasm of unspecified kidney, except renal pelvis (principal)
CPT/HCPCS: 76775

== ENCOUNTER 2022-05-09 18:35 | Inpatient (IN) | payer OTHER, SELFPAY ==
--- NOTE | ~2022-05-09 | CT_ITS ---
EXAMINATION: CT head/brain wo IV con CLINICAL INFORMATION: Reason for Exam dizziness COMPARISON: CT head without contrast 04/20/2022 TECHNIQUE: Contiguous axial imaging was performed from the skull base to vertex without intravenous contrast. Sagittal and coronal reformatted images were obtained. This CT examination was performed using dose optimization techniques as appropriate, variously including the following: * Automated exposure control * Adjustment of mA and/or kV according to patient size (this includes techniques or standardized protocols for targeted exams where dose is matched to indication/reason for exam; i.e. extremities or head) Use of iterative reconstruction technique DLP: 1122 mGy-cm FINDINGS: No acute osseous or soft tissue abnormality. Mastoids are clear. Maxillary sinus mucous retention cysts. Mild ethmoid sinus mucosal thickening There is no evidence of acute intracranial hemorrhage or territorial infarction. Stable hyperdensity in the left frontal lobe spanning approximately 9 mm which may reflect mineralization or a cavernoma No abnormal mass effect or midline shift is seen. Fontenot to white matter differentiation is well preserved. No extra-axial fluid collections are identified. No hydrocephalus. No significant volume loss. There is no abnormal attenuation within the brain parenchyma. CT/CT head/brain wo IV con IMPRESSION: 1. No acute intracranial abnormality including hemorrhage, mass effect, hydrocephalus, or acute territorial edematous infarction. 2. Stable chronic hyperdensity in the left frontal lobe which may reflect parenchymal mineralization or the presence of a cavernoma.
--- NOTE | ~2022-05-09 | CT_ITS ---
EXAMINATION: CT ANGIOGRAM OF THE CHEST WITH AND WITHOUT CONTRAST (CT PULMONARY ANGIOGRAM FOR PE) CLINICAL INFORMATION: New onset atrial fibrillation. COMPARISON: CTA chest, abdomen and pelvis 05/25/2020. Abdominal MRI 04/18/2021. TECHNIQUE: Prior to contrast administration, noncontrast localization images were obtained. Subsequently, multidetector volumetric imaging was performed from the thoracic inlet to below the diaphragms following the administration of 65 mL Omnipaque 350 intravenous contrast. No contrast reaction reported Sagittal, coronal, and MIP oblique sagittal reformatted images were obtained on the CT workstation, uploaded to PACS, and reviewed. This CT examination was performed using dose optimization techniques as appropriate, variously including the following: *Automated exposure control *Adjustment of mA and/or kV according to patient size (this includes techniques or standardized protocols for targeted exams where dose is matched to indication/reason for exam; i.e. extremities or head) *Use of iterative reconstruction technique Total exam dose-length product 342 mGy-cm FINDINGS: QUALITY OF STUDY/CONTRAST BOLUS: Satisfactory. PULMONARY ARTERIES: No central or segmental pulmonary emboli. THORACIC AORTA: No aneurysm or dissection. Atherosclerotic disease. LUNG: Increased bronchial wall thickening and mosaic attenuation of the lung parenchyma compared to May 2020. Redemonstration of background of emphysematous changes with mild peripheral reticulation. No consolidation or significant groundglass disease. The central airways are patent. A 7 mm nodule in the medial right upper lobe (18:183) is unchanged. Additional scattered sub-3 mm pulmonary nodules are not convincingly changed, for instance a 3 mm nodule in the right upper lobe (18:174) and a 2 mm left lower lobe nodule (18:328). Stable perifissural nodules along the right minor fissure, largest measuring 8 mm (18:258). PLEURA: No pleural effusion or pneumothorax. MEDIASTINUM: Normal heart size. No pericardial effusion. No hilar or mediastinal lymphadenopathy. No evidence of septal bowing or right heart strain. Air-fluid level seen in the esophagus suggesting reflux/dysmotility. CORONARY ARTERY CALCIFICATION: Coronary artery calcifications are visualized. CHEST WALL/AXILLA: No axillary or internal mammary lymphadenopathy. OSSEOUS STRUCTURES: No acute or suspicious osseous abnormality. UPPER ABDOMEN: Small granuloma in the right hepatic lobe (16:60). Stable punctate calculus in the region of the gallbladder neck (16:61). Redemonstration of a partially imaged hypodensity in the pancreatic head (16:61). No reflux of contrast into the hepatic veins to suggest elevated right heart pressures. CT/CT angio chest PE protocol IMPRESSION: 1. No evidence of pulmonary embolism or increased right-sided heart pressures. 2. Increased bronchial wall thickening and mosaic attenuation of the lung parenchyma compared to prior examination from May 2020, suggesting the possibility of an infectious/inflammatory process of the small airways. 3. Background of emphysematous changes with multiple stable pulmonary nodules, largest measuring 7 mm in the medial right upper lobe. Assuming patient has no history of malignancy, recommend follow-up per Fleischner Society recommendations. According to the UPDATED 2017 Fleischner Society recommendations, the advised followup imaging for multiple solid nodules, the largest measuring 6 mm or greater, is: LOW RISK PATIENT: CT at 3-6 months, then consider CT at 18-24 months. HIGH RISK PATIENT: CT at 3-6 months, then at 18-24 months. 4. Air-fluid level in the esophagus suggesting reflux/dysmotility, which could predispose to aspiration. 5. Partially imaged hypodensity in the pancreatic head, previously characterized as focal dilatation of the main duct on abdominal MRI from 04/18/2021. 6. Previously described possible solid renal neoplasm in the lateral left mid kidney is not well seen, follow-up with an elective MRI of the abdomen is recommended. VTE: negative
--- NOTE | ~2022-05-09 | XR_ITS ---
EXAMINATION: XR CHEST 2 VIEW CLINICAL INFORMATION: Chest pain COMPARISON: 03/28/2021 TECHNIQUE: PA and lateral views of the chest obtained. FINDINGS: The lungs are clear. There are no pleural effusions. The cardiomediastinal silhouette is normal. No rib fracture or pneumothorax is identified. XR/XR chest 2V IMPRESSION: No active cardiopulmonary disease.
--- NOTE | 2022-05-09 18:38 | ECG_ITS ---
Test Reason : CHEST PAIN Blood Pressure : / mmHG Vent. Rate : 130 BPM Atrial Rate : 000 BPM P-R Int : 000 ms QRS Dur : 086 ms QT Int : 304 ms P-R-T Axes : 000 009 043 degrees QTc Int : 447 ms Atrial fibrillation with rapid ventricular response with premature ventricular or aberrantly conducted complexes Nonspecific ST abnormality Abnormal ECG When compared with ECG of 20-APR-2022 15:50, Atrial fibrillation has replaced Sinus rhythm Vent. rate has increased BY 53 BPM Referred By: Deisy Salas Electronically Signed By:JEWELS FLORES
--- NOTE | 2022-05-09 18:49 | ED.CHESTPAIN ---
HPI - Chest Pain General Chief Complaint: Chest Pain <SEBASTIAN Hunter - Last Filed: 05/09/22 18:53> Stated Complaint: chest pain/ numbness arm <SEBASTIAN Hunter - Last Filed: 05/09/22 18:53> Time Seen by Provider: 05/09/22 18:57 <SEBASTIAN Hunter - Last Filed: 05/09/22 18:53> Source: patient <SEBASTIAN Prince - Last Filed: 05/10/22 00:18> Mode of arrival: ambulatory <SEBASTIAN Prince - Last Filed: 05/10/22 00:18> Limitations: other (Poor historian) <SEBASTIAN Prince - Last Filed: 05/10/22 00:18> History of Present Illness HPI narrative: This is a 76-year-old male history of atrial fibrillation not on anticoagulation, ETOH dependence, hyperlipidemia, hypercholesterolemia, hypertension, inhibited sex excitement, mild cognitive impairment, osteoarthritis and obesity presenting to the emergency department for evaluation of hot flashes, lightheadedness, palpitations that started today. He tells me he has had 2 episodes of lasted a few minutes unable to tell me how many minutes. He tells me he just did not feel right. Feels fatigued does well. Denying chest pain, shortness of breath, fevers, chills, nausea, vomiting, abdominal pain, headache, vision changes, dizziness at this time. NIH stroke scale 0. <SEBASTIAN Prince Last Filed: 05/10/22 00:18> Related Data Home Medications: Home Medications Medication Instructions Recorded Confirmed lisinopril 40 mg tablet 40 mg PO DAILY 03/28/21 11/15/21 metoprolol tartrate 50 mg tablet 50 mg PO BID 03/28/21 11/15/21 nicotine 21 mg/24 hr daily 1 patch transdermal DAILY 03/28/21 11/15/21 transdermal patch pravastatin 20 mg tablet 20 mg PO BEDTIME 03/28/21 11/15/21 Previous Rx's Medication Instructions Recorded aspirin 81 mg tablet,delayed 81 mg PO DAILY #30 tabs 04/20/22 release meclizine 25 mg tablet 25 mg PO TID PRN dizziness #20 tabs 04/20/22 <SEBASTIAN Hunter Last Filed: 05/09/22 18:53> Allergies/Adverse Reactions: Allergies Allergy/AdvReac Type Severity Reaction Status Date / Time No Known Allergies [NKA] Allergy Mild NOT Verified 11/15/21 10:09 APPLICABLE <SEBASTIAN Hunter - Last Filed: 05/09/22 18:53> Review of Systems Review of Systems: Constitutional : No Weight loss, No Fever, No Chills, No Fatigue, No Malaise ENT/Mouth : No sore throat, No Rhinorrhea Eyes: No Eye Pain, No Swelling, No Redness Cardiovascular : No Chest Pain, No SOB, No Dyspnea on Exertion, No Orthopnea, No Edema, + Palpitations Respiratory : No Cough, No Sputum, No Wheezing Gastrointestinal : No Nausea, No Vomiting, No Diarrhea, No Constipation, No abdominal Pain, No Hematochezia, No Melena Genitourinary : No Dysuria, No Urinary Frequency, No Hematuria, Musculoskeletal : No joint pain, No Myalgias, No Joint Swelling Skin : No Skin Lesions, No rash Neuro : No Weakness, No Numbness, + Dizziness, No Headache Psych : No Anxiety/Panic, No Depression All other systems reviewed and are negative <SEBASTIAN Prince - Last Filed: 05/10/22 00:18> Yes all other systems are reviewed and are negative <SEBASTIAN Prince - Last Filed: 05/10/22 00:18> [facility] Past Medical History Attestation statement: The following information was validated with the patient. <SEBASTIAN Prince - Last Filed: 05/10/22 00:18> Source: old records reviewed and nursing notes reviewed <SEBASTIAN Prince - Last Filed: 05/10/22 00:18> Medical History: Medical History Atrial fibrillation Borderline hyperlipidemia EtOH dependence High cholesterol HTN (hypertension) Hypertension Inhibited sex excitement Mild cognitive impairment OA (osteoarthritis) Obesity <SEBASTIAN Hunter - Last Filed: 05/09/22 18:53> Social History Social History: Social History Alcohol intake: current Alcohol intake frequency: a few times a week Alcohol type: beer Smoked in Last 30 Days: No Use of substances other than those prescribed or required for medical reasons: No Advance Directives: No Advance Directives Information Provided: Yes <SEBASTIAN Hunter - Last Filed: 05/09/22 18:53> Physical Exam Vital Signs: Vital Signs: Last Vital Signs Temp 98.5 F 05/09/22 23:59 Pulse 68 05/09/22 23:59 Resp 17 05/09/22 23:59 BP 144/70 H 05/09/22 23:59 Pulse Ox 97 05/09/22 23:59 O2 Del Method Room Air 05/09/22 23:59 BMI result Body Mass Index 26.9 <SEBASTIAN Hunter - Last Filed: 05/09/22 18:53> Vital Signs: Last Vital Signs Temp 98.5 F 05/09/22 23:59 Pulse 68 05/09/22 23:59 Resp 17 05/09/22 23:59 BP 144/70 H 05/09/22 23:59 Pulse Ox 97 05/09/22 23:59 O2 Del Method Room Air 05/09/22 23:59 BMI result Body Mass Index 26.9 vss <SEBASTIAN Prince - Last Filed: 05/10/22 00:18> Appearance: Alert.? Oriented X3.? No acute distress.? Head: Normocephalic, atraumatic, no step-offs or deformities Eyes: Pupils equal, round and reactive to light.? Neck: Normal inspection.? Neck supple.? CVS: Regularly irregular rhythm likely atrial fibrillation..? Pulses normal.? Respiratory: No respiratory distress.? Breath sounds normal.? Abdomen: Soft and nontender.? Skin: Skin warm and dry.? Normal skin color.? Normal skin turgor.? Extremities: No lower extremity edema.? No calf ttp. 5/5 strength to bilateral upper and lower extremities Neuro: Oriented X 3.? No motor deficit.? No sensory deficit. CN 2-12 intact <SEBASTIAN Prince - Last Filed: 05/10/22 00:18> Course Course Course Narrative: PIA-18:50pm - 76yoM who is Montene[place]in-speaking with a PMHx of hypertension, hyperlipidemia, alcohol dependency who is presenting to the ER with complaints of left-sided chest/rib cage pain and left arm pain since yesterday has been intermittent. Also has some right-sided chest pain although that has resolved today. Repeat reports associated chills and intermittent shortness of breath. Denies any dizziness, change in vision, cough, paresthesias, nausea/vomiting/diarrhea, abdominal pain or any other symptoms complaints or concerns at this time. Patient is only on a aspirin no other blood thinners. Plan: Labs, EKG, chest x-ray, COVID/RSV/flu swab. Patient will be brought directly to the ED for further evaluation treatment <SEBASTIAN Hunter - Last Filed: 05/09/22 18:53> Reevaluation(s) Reevaluation #1: Patient's white blood cell count elevated 13.8 however this appears to be around his baseline, patient with normocytic anemia again patient's baseline. Chemistry unremarkable. Troponin negative EKG nonischemic unlikely ACS, BNP slightly elevated 117 unlikely that this is CHF. No signs of fluid overload on exam. Coags no acute finding. UA without infection. COVID and influenza negative. Chest x-ray with no acute cardiopulmonary disease. CTA pending. <SEBASTIAN Prince - Last Filed: 05/10/22 00:18> Time: 20:22 <SEBASTIAN Prince - Last Filed: 05/10/22 00:18> Reevaluation #2: EKG initially showed atrial fibrillation with rapid ventricular response. Patient was given Cardizem x2 despite this heart rate in the 160s. Will try Lopressor at this time. CT of the head with no acute findings. Stable chronic hyperdensity in the left frontal lobe, chronic in nature. Chest x-ray unremarkable. CTA pending. <SEBASTIAN Prince Last Filed: 05/10/22 00:18> Time: 21:24 <SEBASTIAN Prince Last Filed: 05/10/22 00:18> Reevaluation #3: CT with no evidence of PE. No signs of increased right heart strain. Increased bronchial wall thickening similar to previous studies. Emphysema noted with some changes. Some pulmonary nodules noted. Air-fluid level in the esophagus likely reflux. Due to inconsistency of heart rates while in the department, patient was up to 160 beats per minute at 1 point sustained, slightly positive delta troponin likely secondary to demand ischemia, unlikely from ACS. Patient will be admitted to the hospital for further evaluation and treatment. <SEBASTIAN Prince - Last Filed: 05/10/22 00:18> Time: 00:17 <SEBASTIAN Prince - Last Filed: 05/10/22 00:18> Medications Administered Discontinued Medications Generic Name Dose Route Start Last Admin Trade Name Freq PRN Reason Stop Dose Admin Diltiazem HCl 10 mg 05/09/22 19:03 05/09/22 19:09 Diltiazem Hcl 50 Mg/10 Ml Vial IVPUSH 05/09/22 19:04 10 mg STAT STA Administration Diltiazem HCl 10 mg 05/09/22 20:35 05/09/22 20:42 Diltiazem Hcl 50 Mg/10 Ml Vial IVPUSH 05/09/22 20:36 10 mg STAT STA Administration Diltiazem HCl 10 mg 05/09/22 21:40 05/09/22 21:56 Diltiazem Hcl 50 Mg/10 Ml Vial IVPUSH 05/09/22 21:41 10 mg STAT STA Administration Iohexol 100 ml 05/09/22 20:15 05/09/22 20:15 Iohexol 350 Mg/Ml 100 Ml Infus..Btl IV 05/09/22 20:16 65 ml ONCE ONE Administration Metoprolol Tartrate 5 mg 05/09/22 21:23 05/09/22 21:37 Metoprolol Tartrate 5 Mg/5 Ml Vial IVPUSH 05/09/22 21:24 5 mg ONCE ONE Administration <SEBASTIAN Hunter - Last Filed: 05/09/22 18:53> Medications Administered Discontinued Medications Generic Name Dose Route Start Last Admin Trade Name Freq PRN Reason Stop Dose Admin Diltiazem HCl 10 mg 05/09/22 19:03 05/09/22 19:09 Diltiazem Hcl 50 Mg/10 Ml Vial IVPUSH 05/09/22 19:04 10 mg STAT STA Administration Diltiazem HCl 10 mg 05/09/22 20:35 05/09/22 20:42 Diltiazem Hcl 50 Mg/10 Ml Vial IVPUSH 05/09/22 20:36 10 mg STAT STA Administration Diltiazem HCl 10 mg 05/09/22 21:40 05/09/22 21:56 Diltiazem Hcl 50 Mg/10 Ml Vial IVPUSH 05/09/22 21:41 10 mg STAT STA Administration Iohexol 100 ml 05/09/22 20:15 05/09/22 20:15 Iohexol 350 Mg/Ml 100 Ml Infus..Btl IV 05/09/22 20:16 65 ml ONCE ONE Administration Metoprolol Tartrate 5 mg 05/09/22 21:23 05/09/22 21:37 Metoprolol Tartrate 5 Mg/5 Ml Vial IVPUSH 05/09/22 21:24 5 mg ONCE ONE Administration <SEBASTIAN Prince - Last Filed: 05/10/22 00:18> Medical Decision Making Medical Decision Making [facility] Narrative: 1904 76-year-old male presents with complaints of lightheadedness, hot flashes, malaise Exam noted to have an irregularly irregular fast rhythm likely atrial fibrillation. Concerns for atrial fibrillation with rapid ventricular response, will rule out electrolyte abnormalities, UTI, ACS, PE although less likely. Unlikely stroke or posterior stroke Plan at this time labs, imaging, urine, viral testing <SEBASTIAN Prince Last Filed: 05/10/22 00:18> Differential Diagnosis Differential Diagnoses: The differential diagnosis associated with the presentation includes <SEBASTIAN Prince Last Filed: 05/10/22 00:18> Concerns for atrial fibrillation with rapid ventricular response, will rule out electrolyte abnormalities, UTI, ACS, PE although less likely. Unlikely stroke or posterior stroke <SEBASTIAN Prince - Last Filed: 05/10/22 00:18> Admission/Observation Consideration of admission/observation: Escalation of care including admission/observation considered <SEBASTIAN Prince Last Filed: 05/10/22 00:18> Likely <SEBASTIAN Prince Last Filed: 05/10/22 00:18> Consult Healthcare Provider Management of the patient was discussed with: Hospitalist <SEBASTIAN Prince - Last Filed: 05/10/22 00:18> Lab Data [facility] Lab Attestation statement: I reviewed the patient's lab results. <SEBASTIAN Prince - Last Filed: 05/10/22 00:18> Result Diagrams: 05/09/22 18:48 05/09/22 18:48 <SEBASTIAN Hunter - Last Filed: 05/09/22 18:53> Labs: Lab Results 05/09/22 05/09/22 05/09/22 Range/Units 18:48 18:48 18:48 WBC 13.8 H (4.8-10.8) X10*3/uL RBC 3.93 L (4.60-5.80) X10*6/uL Hgb 11.0 L (14.0-18.0) g/dl Hct 35.6 L (42.0-52.0) % MCV 90.6 (80.0-98.0) fL MCH 28.0 (27.0-33.0) pg MCHC 30.9 L (31.0-36.0) g/dl RDW 15.6 (11.0-16.0) % Plt Count 301 (160-400) X10*3/uL MPV 10.7 (9.4-12.4) fL Immature Gran % (Auto) 1.6 H (0.0-0.4) % Neut % (Auto) 61.5 (45-73) % Lymph % (Auto) 24.0 (20-40) % [place] % (Auto) 11.1 H (2-11) % Eos % (Auto) 1.4 (0-4) % Baso % (Auto) 0.4 (0-2) % Lymph # (Auto) 3.3 (1.2-4.9) X10*3/uL [place] # (Auto) 1.5 H (0.1-1.2) X10*3/uL Eos # (Auto) 0.2 (0.0-0.4) X10*3/uL Baso # (Auto) 0.1 (0.0-0.2) X10*3/uL Abs Immat Gran (auto) 0.22 H (0.00-0.03) X10*3/uL Absolute Neuts (auto) 8.5 H (2.0-8.3) x10*3/uL Absolute Nucleated RBC 0.000 (0.0-0.012) X10*3/uL Nucleated RBC % (auto) 0.0 (0.0-0.2) /100WBC Smear Tech's Comments VERIFIED PT 11.7 (10.0-13.1) SEC INR 1.0 (0.9-1.1) Sodium 138 (135-145) mmol/L Potassium 4.2 (3.3-5.1) mmol/L Chloride 103 (96-108) mmol/L Carbon Dioxide 25 (22-29) mmol/L Anion Gap 14 (12-20) BUN 10 (9-16) mg/dL Creatinine 0.96 (0.5-1.4) mg/dL Estim Creat Clear Calc 68.6 Estimated GFR > 60 Random Glucose 99 (60-115) mg/dL Calcium 8.9 (8.4-10.2) mg/dL Magnesium 2.0 (1.6-2.6) mg/dL Total Bilirubin 0.4 (0.0-1.0) mg/dL AST 22 (5-37) U/L ALT 19 (0-40) U/L Alkaline Phosphatase 101 (39-117) U/L Troponin I High Sens (<3.5-35.0) ng/L B-Natriuretic Peptide (<100) pg/mL Total Protein 6.9 (6.5-8.0) g/dL Albumin 3.7 (3.5-5.0) g/dL Urine Color Urine Appearance Urine pH (5.0-9.0) Ur Specific [place] (1.005-1.025) Urine Protein (Neg-Trace) mg/dL Urine Glucose (UA) (Negative) mg/dL Urine Ketones (Negative) mg/dL Urine Blood (Negative) Urine Nitrite (Negative) Ur Leukocyte Esterase (Negative) Influenza Type A (PCR) (Negative) Influenza Type B (PCR) (Negative) RSV RNA Qual (PCR) (Negative) SARS-CoV-2 RNA (RT-PCR) (Negative) 05/09/22 05/09/22 05/09/22 Range/Units 18:48 18:48 19:31 WBC (4.8-10.8) X10*3/uL RBC (4.60-5.80) X10*6/uL Hgb (14.0-18.0) g/dl Hct (42.0-52.0) % MCV (80.0-98.0) fL MCH (27.0-33.0) pg MCHC (31.0-36.0) g/dl RDW (11.0-16.0) % Plt Count (160-400) X10*3/uL MPV (9.4-12.4) fL Immature Gran % (Auto) (0.0-0.4) % Neut % (Auto) (45-73) % Lymph % (Auto) (20-40) % [place] % (Auto) (2-11) % Eos % (Auto) (0-4) % Baso % (Auto) (0-2) % Lymph # (Auto) (1.2-4.9) X10*3/uL [place] # (Auto) (0.1-1.2) X10*3/uL Eos # (Auto) (0.0-0.4) X10*3/uL Baso # (Auto) (0.0-0.2) X10*3/uL Abs Immat Gran (auto) (0.00-0.03) X10*3/uL Absolute Neuts (auto) (2.0-8.3) x10*3/uL Absolute Nucleated RBC (0.0-0.012) X10*3/uL Nucleated RBC % (auto) (0.0-0.2) /100WBC Smear Tech's Comments PT (10.0-13.1) SEC INR (0.9-1.1) Sodium (135-145) mmol/L Potassium (3.3-5.1) mmol/L Chloride (96-108) mmol/L Carbon Dioxide (22-29) mmol/L Anion Gap (12-20) BUN (9-16) mg/dL Creatinine (0.5-1.4) mg/dL Estim Creat Clear Calc Estimated GFR Random Glucose (60-115) mg/dL Calcium (8.4-10.2) mg/dL Magnesium (1.6-2.6) mg/dL Total Bilirubin (0.0-1.0) mg/dL AST (5-37) U/L ALT (0-40) U/L Alkaline Phosphatase (39-117) U/L Troponin I High Sens 4.7 D (<3.5-35.0) ng/L B-Natriuretic Peptide 117 H (<100) pg/mL Total Protein (6.5-8.0) g/dL Albumin (3.5-5.0) g/dL Urine Color Urine Appearance Urine pH (5.0-9.0) Ur Specific [place] (1.005-1.025) Urine Protein (Neg-Trace) mg/dL Urine Glucose (UA) (Negative) mg/dL Urine Ketones (Negative) mg/dL Urine Blood (Negative) Urine Nitrite (Negative) Ur Leukocyte Esterase (Negative) Influenza Type A (PCR) NEGATIVE (Negative) Influenza Type B (PCR) NEGATIVE (Negative) RSV RNA Qual (PCR) NEGATIVE (Negative) SARS-CoV-2 RNA (RT-PCR) NEGATIVE (Negative) 05/09/22 05/09/22 Range/Units 19:48 23:09 WBC (4.8-10.8) X10*3/uL RBC (4.60-5.80) X10*6/uL Hgb (14.0-18.0) g/dl Hct (42.0-52.0) % MCV (80.0-98.0) fL MCH (27.0-33.0) pg MCHC (31.0-36.0) g/dl RDW (11.0-16.0) % Plt Count (160-400) X10*3/uL MPV (9.4-12.4) fL Immature Gran % (Auto) (0.0-0.4) % Neut % (Auto) (45-73) % Lymph % (Auto) (20-40) % [place] % (Auto) (2-11) % Eos % (Auto) (0-4) % Baso % (Auto) (0-2) % Lymph # (Auto) (1.2-4.9) X10*3/uL [place] # (Auto) (0.1-1.2) X10*3/uL Eos # (Auto) (0.0-0.4) X10*3/uL Baso # (Auto) (0.0-0.2) X10*3/uL Abs Immat Gran (auto) (0.00-0.03) X10*3/uL Absolute Neuts (auto) (2.0-8.3) x10*3/uL Absolute Nucleated RBC (0.0-0.012) X10*3/uL Nucleated RBC % (auto) (0.0-0.2) /100WBC Smear Tech's Comments PT (10.0-13.1) SEC INR (0.9-1.1) Sodium (135-145) mmol/L Potassium (3.3-5.1) mmol/L Chloride (96-108) mmol/L Carbon Dioxide (22-29) mmol/L Anion Gap (12-20) BUN (9-16) mg/dL Creatinine (0.5-1.4) mg/dL Estim Creat Clear Calc Estimated GFR Random Glucose (60-115) mg/dL Calcium (8.4-10.2) mg/dL Magnesium (1.6-2.6) mg/dL Total Bilirubin (0.0-1.0) mg/dL AST (5-37) U/L ALT (0-40) U/L Alkaline Phosphatase (39-117) U/L Troponin I High Sens 7.1 D (<3.5-35.0) ng/L B-Natriuretic Peptide (<100) pg/mL Total Protein (6.5-8.0) g/dL Albumin (3.5-5.0) g/dL Urine Color Yellow Urine Appearance Clear Urine pH 6.5 (5.0-9.0) Ur Specific [place] <= 1.005 (1.005-1.025) Urine Protein Negative (Neg-Trace) mg/dL Urine Glucose (UA) Negative (Negative) mg/dL Urine Ketones Negative (Negative) mg/dL Urine Blood Negative (Negative) Urine Nitrite Negative (Negative) Ur Leukocyte Esterase Negative (Negative) Influenza Type A (PCR) (Negative) Influenza Type B (PCR) (Negative) RSV RNA Qual (PCR) (Negative) SARS-CoV-2 RNA (RT-PCR) (Negative) <SEBASTIAN Hunter - Last Filed: 05/09/22 18:53> Lab Results 05/09/22 05/09/22 05/09/22 Range/Units 18:48 18:48 18:48 WBC 13.8 H (4.8-10.8) X10*3/uL RBC 3.93 L (4.60-5.80) X10*6/uL Hgb 11.0 L (14.0-18.0) g/dl Hct 35.6 L (42.0-52.0) % MCV 90.6 (80.0-98.0) fL MCH 28.0 (27.0-33.0) pg MCHC 30.9 L (31.0-36.0) g/dl RDW 15.6 (11.0-16.0) % Plt Count 301 (160-400) X10*3/uL MPV 10.7 (9.4-12.4) fL Immature Gran % (Auto) 1.6 H (0.0-0.4) % Neut % (Auto) 61.5 (45-73) % Lymph % (Auto) 24.0 (20-40) % [place] % (Auto) 11.1 H (2-11) % Eos % (Auto) 1.4 (0-4) % Baso % (Auto) 0.4 (0-2) % Lymph # (Auto) 3.3 (1.2-4.9) X10*3/uL [place] # (Auto) 1.5 H (0.1-1.2) X10*3/uL Eos # (Auto) 0.2 (0.0-0.4) X10*3/uL Baso # (Auto) 0.1 (0.0-0.2) X10*3/uL Abs Immat Gran (auto) 0.22 H (0.00-0.03) X10*3/uL Absolute Neuts (auto) 8.5 H (2.0-8.3) x10*3/uL Absolute Nucleated RBC 0.000 (0.0-0.012) X10*3/uL Nucleated RBC % (auto) 0.0 (0.0-0.2) /100WBC Smear Tech's Comments VERIFIED PT 11.7 (10.0-13.1) SEC INR 1.0 (0.9-1.1) Sodium 138 (135-145) mmol/L Potassium 4.2 (3.3-5.1) mmol/L Chloride 103 (96-108) mmol/L Carbon Dioxide 25 (22-29) mmol/L Anion Gap 14 (12-20) BUN 10 (9-16) mg/dL Creatinine 0.96 (0.5-1.4) mg/dL Estim Creat Clear Calc 68.6 Estimated GFR > 60 Random Glucose 99 (60-115) mg/dL Calcium 8.9 (8.4-10.2) mg/dL Magnesium 2.0 (1.6-2.6) mg/dL Total Bilirubin 0.4 (0.0-1.0) mg/dL AST 22 (5-37) U/L ALT 19 (0-40) U/L Alkaline Phosphatase 101 (39-117) U/L Troponin I High Sens (<3.5-35.0) ng/L B-Natriuretic Peptide (<100) pg/mL Total Protein 6.9 (6.5-8.0) g/dL Albumin 3.7 (3.5-5.0) g/dL Urine Color Urine Appearance Urine pH (5.0-9.0) Ur Specific [place] (1.005-1.025) Urine Protein (Neg-Trace) mg/dL Urine Glucose (UA) (Negative) mg/dL Urine Ketones (Negative) mg/dL Urine Blood (Negative) Urine Nitrite (Negative) Ur Leukocyte Esterase (Negative) Influenza Type A (PCR) (Negative) Influenza Type B (PCR) (Negative) RSV RNA Qual (PCR) (Negative) SARS-CoV-2 RNA (RT-PCR) (Negative) 05/09/22 05/09/22 05/09/22 Range/Units 18:48 18:48 19:31 WBC (4.8-10.8) X10*3/uL RBC (4.60-5.80) X10*6/uL Hgb (14.0-18.0) g/dl Hct (42.0-52.0) % MCV (80.0-98.0) fL MCH (27.0-33.0) pg MCHC (31.0-36.0) g/dl RDW (11.0-16.0) % Plt Count (160-400) X10*3/uL MPV (9.4-12.4) fL Immature Gran % (Auto) (0.0-0.4) % Neut % (Auto) (45-73) % Lymph % (Auto) (20-40) % [place] % (Auto) (2-11) % Eos % (Auto) (0-4) % Baso % (Auto) (0-2) % Lymph # (Auto) (1.2-4.9) X10*3/uL [place] # (Auto) (0.1-1.2) X10*3/uL Eos # (Auto) (0.0-0.4) X10*3/uL Baso # (Auto) (0.0-0.2) X10*3/uL Abs Immat Gran (auto) (0.00-0.03) X10*3/uL Absolute Neuts (auto) (2.0-8.3) x10*3/uL Absolute Nucleated RBC (0.0-0.012) X10*3/uL Nucleated RBC % (auto) (0.0-0.2) /100WBC Smear Tech's Comments PT (10.0-13.1) SEC INR (0.9-1.1) Sodium (135-145) mmol/L Potassium (3.3-5.1) mmol/L Chloride (96-108) mmol/L Carbon Dioxide (22-29) mmol/L Anion Gap (12-20) BUN (9-16) mg/dL Creatinine (0.5-1.4) mg/dL Estim Creat Clear Calc Estimated GFR Random Glucose (60-115) mg/dL Calcium (8.4-10.2) mg/dL Magnesium (1.6-2.6) mg/dL Total Bilirubin (0.0-1.0) mg/dL AST (5-37) U/L ALT (0-40) U/L Alkaline Phosphatase (39-117) U/L Troponin I High Sens 4.7 D (<3.5-35.0) ng/L B-Natriuretic Peptide 117 H (<100) pg/mL Total Protein (6.5-8.0) g/dL Albumin (3.5-5.0) g/dL Urine Color Urine Appearance Urine pH (5.0-9.0) Ur Specific [place] (1.005-1.025) Urine Protein (Neg-Trace) mg/dL Urine Glucose (UA) (Negative) mg/dL Urine Ketones (Negative) mg/dL Urine Blood (Negative) Urine Nitrite (Negative) Ur Leukocyte Esterase (Negative) Influenza Type A (PCR) NEGATIVE (Negative) Influenza Type B (PCR) NEGATIVE (Negative) RSV RNA Qual (PCR) NEGATIVE (Negative) SARS-CoV-2 RNA (RT-PCR) NEGATIVE (Negative) 05/09/22 05/09/22 Range/Units 19:48 23:09 WBC (4.8-10.8) X10*3/uL RBC (4.60-5.80) X10*6/uL Hgb (14.0-18.0) g/dl Hct (42.0-52.0) % MCV (80.0-98.0) fL MCH (27.0-33.0) pg MCHC (31.0-36.0) g/dl RDW (11.0-16.0) % Plt Count (160-400) X10*3/uL MPV (9.4-12.4) fL Immature Gran % (Auto) (0.0-0.4) % Neut % (Auto) (45-73) % Lymph % (Auto) (20-40) % [place] % (Auto) (2-11) % Eos % (Auto) (0-4) % Baso % (Auto) (0-2) % Lymph # (Auto) (1.2-4.9) X10*3/uL [place] # (Auto) (0.1-1.2) X10*3/uL Eos # (Auto) (0.0-0.4) X10*3/uL Baso # (Auto) (0.0-0.2) X10*3/uL Abs Immat Gran (auto) (0.00-0.03) X10*3/uL Absolute Neuts (auto) (2.0-8.3) x10*3/uL Absolute Nucleated RBC (0.0-0.012) X10*3/uL Nucleated RBC % (auto) (0.0-0.2) /100WBC Smear Tech's Comments PT (10.0-13.1) SEC INR (0.9-1.1) Sodium (135-145) mmol/L Potassium (3.3-5.1) mmol/L Chloride (96-108) mmol/L Carbon Dioxide (22-29) mmol/L Anion Gap (12-20) BUN (9-16) mg/dL Creatinine (0.5-1.4) mg/dL Estim Creat Clear Calc Estimated GFR Random Glucose (60-115) mg/dL Calcium (8.4-10.2) mg/dL Magnesium (1.6-2.6) mg/dL Total Bilirubin (0.0-1.0) mg/dL AST (5-37) U/L ALT (0-40) U/L Alkaline Phosphatase (39-117) U/L Troponin I High Sens 7.1 D (<3.5-35.0) ng/L B-Natriuretic Peptide (<100) pg/mL Total Protein (6.5-8.0) g/dL Albumin (3.5-5.0) g/dL Urine Color Yellow Urine Appearance Clear Urine pH 6.5 (5.0-9.0) Ur Specific [place] <= 1.005 (1.005-1.025) Urine Protein Negative (Neg-Trace) mg/dL Urine Glucose (UA) Negative (Negative) mg/dL Urine Ketones Negative (Negative) mg/dL Urine Blood Negative (Negative) Urine Nitrite Negative (Negative) Ur Leukocyte Esterase Negative (Negative) Influenza Type A (PCR) (Negative) Influenza Type B (PCR) (Negative) RSV RNA Qual (PCR) (Negative) SARS-CoV-2 RNA (RT-PCR) (Negative) <SEBASTIAN Prince - Last Filed: 05/10/22 00:18> Independent Interpretation I performed an independent interpretation of an: CT Scan ( CT/CT angio chest PE protocol IMPRESSION: 1. No evidence of pulmonary embolism or increased right-sided heart pressures. 2. Increased bronchial wall thickening and mosaic attenuation of the lung parenchyma compared to prior examination from May 2020, suggesting the possibility of an infectious/) <SEBASTIAN Prince Last Filed: 05/10/22 00:18> Radiology Impression Discussion of test interpretation with radiology: I have reviewed the radiologist's reading. <SEBASTIAN Prince Last Filed: 05/10/22 00:18> Chronic Conditions Patient?s care impacted by: Hypertension <SEBASTIAN Prince Last Filed: 05/10/22 00:18> Core Measures AMI core measures followed: Yes <SEBASTIAN Prince - Last Filed: 05/10/22 00:18> Measure exclusions: not indicated <SEBASTIAN Prince - Last Filed: 05/10/22 00:18> Critical Care Time Critical Care Time Critical Care Time: No <SEBASTIAN Prince - Last Filed: 05/10/22 00:18> Discharge Plan Discharge Clinical Impression: Atrial fibrillation with rapid ventricular response <SEBASTIAN Hunter - Last Filed: 05/09/22 18:53> Patient Disposition: Still a Patient <SEBASTIAN Hunter - Last Filed: 05/09/22 18:53> Prescriptions: No Action metoprolol tartrate 50 mg Tablet 50 mg PO BID nicotine 21 mg/24 hr Patch 24 Hour 1 patch TRANSDERMAL DAILY pravastatin 20 mg Tablet 20 mg PO BEDTIME lisinopril 40 mg Tablet 40 mg PO DAILY meclizine 25 mg tablet 25 mg PO TID PRN (Reason: dizziness) Qty: 20 0RF aspirin 81 mg tablet,delayed release (DR/EC) 81 mg PO DAILY Qty: 30 0RF <SEBASTIAN Hunter - Last Filed: 05/09/22 18:53>
[2022-05-09 18:50] VITALS: BP 168/80; PULSE 75; RESP 20; TEMP 36.5; O2SAT 98; BMI 26.9
[2022-05-09 19:05] LABS: Prothrombin Time 11.7 SEC (10.0-13.1)
[2022-05-09] MEDS: dilTIAZem HCL 50 MG/10 ML VIAL 10 MG IVPUSH ×3 (19:09→21:56)
[2022-05-09 19:19] LABS: Basophils Absolute Auto 0.1 X10*3/uL (0.0-0.2); Basophils Percent Auto 0.4 % (0-2); Eosinophils Absolute Auto 0.2 X10*3/uL (0.0-0.4); Eosinophils Percent Auto 1.4 % (0-4); Hematocrit 35.6 % (42.0-52.0); Imm Gran Abs Auto 0.22 X10*3/uL (0.00-0.03); Imm Gran Pct Auto 1.6 % (0.0-0.4); Lymphocytes Absolute Auto 3.3 X10*3/uL (1.2-4.9); MANUAL DIFF FLAG SCAN; Mean Corpuscular HGB Conc 30.9 g/dl (31.0-36.0); Mean Corpuscular Volume 90.6 fL (80.0-98.0); Mean Platelet Volume 10.7 fL (9.4-12.4); Monocytes Absolute Auto 1.5 X10*3/uL (0.1-1.2); Monocytes Percent Auto 11.1 % (2-11); Neutrophils Absolute Auto 8.5 x10*3/uL (2.0-8.3); Neutrophils Percent Auto 61.5 % (45-73); Platelet Count 301 X10*3/uL (160-400); Red Blood Count 3.93 X10*6/uL (4.60-5.80); Red Cell Distribution Width 15.6 % (11.0-16.0); SCAN SMEAR FLAG 1; White Blood Count 13.8 X10*3/uL (4.8-10.8)
[2022-05-09 19:22] LABS: Alanine Aminotransferase 19 U/L (0-40); Albumin Level 3.7 g/dL (3.5-5.0); Alkaline Phosphatase 101 U/L (39-117); Anion Gap 14 (12-20); Aspartate Amino Transferase 22 U/L (5-37); Bilirubin Total 0.4 mg/dL (0.0-1.0); Blood Urea Nitrogen 10 mg/dL (9-16); Calcium 8.9 mg/dL (8.4-10.2); Carbon Dioxide 25 mmol/L (22-29); Chloride 103 mmol/L (96-108); Creatinine Clr Calc Pharmacy 68.6; Estimated Glomerular Filt Rate > 60; Glucose Random 99 mg/dL (60-115); Potassium 4.2 mmol/L (3.3-5.1); Sodium 138 mmol/L (135-145); Total Protein 6.9 g/dL (6.5-8.0)
[2022-05-09 19:30] LABS: Troponin-I High Sensitivity 4.7 ng/L (<3.5-35.0)
[2022-05-09 19:44] VITALS: BP 143/80; PULSE 85; RESP 17; TEMP 36.9; O2SAT 96
[2022-05-09 19:45] LABS: Influenza A PCR NEGATIVE (Negative); Influenza B PCR NEGATIVE (Negative); Resp Syncy Virus RNA Qual PCR NEGATIVE (Negative); SARS COV2 PCR INHOUSE NEGATIVE (Negative)
[2022-05-09 19:46] LABS: SLIDE REVIEW VERIFIED
[2022-05-09 19:57] LABS: Appearance Urine Clear; Color Urine Yellow; Glucose Urine UA Negative (Negative); Leukocyte Esterase Urine Negative (Negative); Nitrite Urine Negative (Negative); PH 6.5 (5.0-9.0); Specific Gravity - Urine <= 1.005 (1.005-1.025); Urine Blood Negative (Negative); Urine Ketones Negative (Negative); Urine Protein Negative (Neg-Trace)
[2022-05-09 20:06] LABS: B Type Natriuretic Peptide 117 pg/mL (<100)
[2022-05-09] MEDS: iohexoL 350 MG/ML 100 ML INFUS..BTL IV (20:15)
[2022-05-09 20:44] VITALS: BP 105/63; PULSE 125; RESP 18; TEMP 36.9; O2SAT 97
[2022-05-09] MEDS: Metoprolol Tartrate 5 MG/5 ML VIAL IVPUSH (21:37)
--- NOTE | 2022-05-09 21:58 | PC.NURSE ---
Pt aox4 resting at the bedside in no apparent distress. Breaths are even, regular and unlabored. Sinus tach on monitor with HR 125. Medicated as ordered. Pt tolerated well. Abd soft and nontender. Skin warm, dry, and appropriate for color. Pt denies any pain, sob, or dizziness at this time. Pt aware of plan of care. Will continue to monitor.
[2022-05-09 22:01] VITALS: BP 128/66; PULSE 74; RESP 13; TEMP 37; O2SAT 97
[2022-05-09 22:03] VITALS: PULSE 125
[2022-05-09 23:37] LABS: Troponin-I High Sensitivity 7.1 ng/L (<3.5-35.0)
[2022-05-09 23:59] VITALS: BP 144/70; PULSE 68; RESP 17; TEMP 36.9; O2SAT 97
--- NOTE | 2022-05-10 | PC.NURSE ---
Pt aox4 resting at the bedside in no apparent distress. O2 sat 97% RA. Sinu tach on monitor with HR between 70-105bpm. Reports no pain or discomfort at this time. Will continue to monitor.
--- NOTE | 2022-05-10 00:17 | P.HPHOSP_ITS ---
History of Present Illness Date of Service: 05/10/22 Chief Complaint: Palpitations This is a 76-year-old male with pertinent history of atrial fibrillation not on anticoagulation, essential hypertension, mixed hyperlipidemia who presents to the emergency department evaluation of palpitations. Patient states he had multiple episodes of palpitations that started yesterday. Each episode lasted a few minutes and resolved. Also had episodes of lightheadedness along with palpitations. Patient denies fever, chills, cough, chest discomfort, shortness of breath, abdominal pain, changes in urinary or bowel habits. In the emergency department, patient's heart rate was found to be 160s Review of Systems Constitutional: Constitutional: Reports fatigue Cardiovascular: Cardiovascular: Reports rapid heart rate Respiratory: Respiratory: Reports no additional respiratory complaints Gastrointestinal: Gastrointestinal: Reports no additional gastrointestinal complaints Genitourinary: Genitourinary: Reports no additional male genitourinary complaints Endocrine: Endocrine: Reports fatigue [facility] Medical History Atrial fibrillation Borderline hyperlipidemia EtOH dependence High cholesterol HTN (hypertension) Hypertension Inhibited sex excitement Mild cognitive impairment OA (osteoarthritis) Obesity Social History Alcohol intake: current Alcohol intake frequency: a few times a week Alcohol type: beer Smoked in Last 30 Days: No Use of substances other than those prescribed or required for medical reasons: No Advance Directives: No Advance Directives Information Provided: Yes Meds Allergies Allergy/AdvReac Type Severity Reaction Status Date / Time No Known Allergies [NKA] Allergy Mild NOT Verified 11/15/21 10:09 APPLICABLE Active Medications: Current Medications Pharmacy Consult (Consult Rx Perform Med Rec) 1 each MISCELLANE ONCE PRN PRN Reason: Consult order Home Medications Medication Instructions Recorded Confirmed Last Taken Type lisinopril 40 mg tablet 40 mg PO DAILY 03/28/21 11/15/21 Unknown History metoprolol tartrate 50 mg tablet 50 mg PO BID 03/28/21 11/15/21 Unknown History nicotine 21 mg/24 hr daily 1 patch transdermal DAILY 03/28/21 11/15/21 Unknown History transdermal patch pravastatin 20 mg tablet 20 mg PO BEDTIME 03/28/21 11/15/21 Unknown History Physical Exam Vital Signs and Narrative: Vital Signs: Last Vital Signs Temp 98.5 F 05/09/22 23:59 Pulse 68 05/09/22 23:59 Resp 17 05/09/22 23:59 BP 144/70 H 05/09/22 23:59 Pulse Ox 97 05/09/22 23:59 O2 Del Method Room Air 05/09/22 23:59 BMI result Body Mass Index 26.9 Middle-aged male lying in bed in no distress Neck supple, no JVD Irregularly irregular, S1-S2 heard Regular breath sounds bilaterally, no wheezing or crackles appreciated Abdomen soft nontender, no guarding, no rigidity Patient is awake, alert and oriented to self, place, time and person ; no focal motor deficit Psych: Normal mood No pedal edema Results Labs 05/09/22 18:48 05/09/22 18:48 Labs: Laboratory Results - last 24 hr 05/09/22 05/09/22 05/09/22 18:48 18:48 18:48 MCV 90.6 MCH 28.0 MCHC 30.9 L RDW 15.6 Plt Count 301 MPV 10.7 Immature Gran % (Auto) 1.6 H Neut % (Auto) 61.5 Lymph % (Auto) 24.0 [place] % (Auto) 11.1 H Eos % (Auto) 1.4 Baso % (Auto) 0.4 Lymph # (Auto) 3.3 [place] # (Auto) 1.5 H Eos # (Auto) 0.2 Baso # (Auto) 0.1 Abs Immat Gran (auto) 0.22 H Absolute Neuts (auto) 8.5 H Absolute Nucleated RBC 0.000 Nucleated RBC % (auto) 0.0 Smear Tech's Comments VERIFIED PT 11.7 INR 1.0 Anion Gap 14 Estim Creat Clear Calc 68.6 Estimated GFR > 60 Random Glucose 99 Calcium 8.9 Magnesium 2.0 Total Bilirubin 0.4 AST 22 ALT 19 Alkaline Phosphatase 101 Troponin I High Sens B-Natriuretic Peptide Total Protein 6.9 Albumin 3.7 Urine Color Urine Appearance Urine pH Ur Specific [place] Urine Protein Urine Glucose (UA) Urine Ketones Urine Blood Urine Nitrite Ur Leukocyte Esterase Influenza Type A (PCR) Influenza Type B (PCR) RSV RNA Qual (PCR) SARS-CoV-2 RNA (RT-PCR) 05/09/22 05/09/22 05/09/22 18:48 18:48 19:31 MCV MCH MCHC RDW Plt Count MPV Immature Gran % (Auto) Neut % (Auto) Lymph % (Auto) [place] % (Auto) Eos % (Auto) Baso % (Auto) Lymph # (Auto) [place] # (Auto) Eos # (Auto) Baso # (Auto) Abs Immat Gran (auto) Absolute Neuts (auto) Absolute Nucleated RBC Nucleated RBC % (auto) Smear Tech's Comments PT INR Anion Gap Estim Creat Clear Calc Estimated GFR Random Glucose Calcium Magnesium Total Bilirubin AST ALT Alkaline Phosphatase Troponin I High Sens 4.7 D B-Natriuretic Peptide 117 H Total Protein Albumin Urine Color Urine Appearance Urine pH Ur Specific [place] Urine Protein Urine Glucose (UA) Urine Ketones Urine Blood Urine Nitrite Ur Leukocyte Esterase Influenza Type A (PCR) NEGATIVE Influenza Type B (PCR) NEGATIVE RSV RNA Qual (PCR) NEGATIVE SARS-CoV-2 RNA (RT-PCR) NEGATIVE 05/09/22 05/09/22 19:48 23:09 MCV MCH MCHC RDW Plt Count MPV Immature Gran % (Auto) Neut % (Auto) Lymph % (Auto) [place] % (Auto) Eos % (Auto) Baso % (Auto) Lymph # (Auto) [place] # (Auto) Eos # (Auto) Baso # (Auto) Abs Immat Gran (auto) Absolute Neuts (auto) Absolute Nucleated RBC Nucleated RBC % (auto) Smear Tech's Comments PT INR Anion Gap Estim Creat Clear Calc Estimated GFR Random Glucose Calcium Magnesium Total Bilirubin AST ALT Alkaline Phosphatase Troponin I High Sens 7.1 D B-Natriuretic Peptide Total Protein Albumin Urine Color Yellow Urine Appearance Clear Urine pH 6.5 Ur Specific [place] <= 1.005 Urine Protein Negative Urine Glucose (UA) Negative Urine Ketones Negative Urine Blood Negative Urine Nitrite Negative Ur Leukocyte Esterase Negative Influenza Type A (PCR) Influenza Type B (PCR) RSV RNA Qual (PCR) SARS-CoV-2 RNA (RT-PCR) Imaging Radiologist's Impressions: Impressions Chest X-Ray 05/09/22 19:22 IMPRESSION: No active cardiopulmonary disease. Head CT 05/09/22 20:27 IMPRESSION: 1. No acute intracranial abnormality including hemorrhage, mass effect, hydrocephalus, or acute territorial edematous infarction. 2. Stable chronic hyperdensity in the left frontal lobe which may reflect parenchymal mineralization or the presence of a cavernoma. Chest CTA 05/09/22 20:28 IMPRESSION: 1. No evidence of pulmonary embolism or increased right-sided heart pressures. 2. Increased bronchial wall thickening and mosaic attenuation of the lung parenchyma compared to prior examination from May 2020, suggesting the possibility of an infectious/inflammatory process of the small airways. 3. Background of emphysematous changes with multiple stable pulmonary nodules, largest measuring 7 mm in the medial right upper lobe. Assuming patient has no history of malignancy, recommend follow-up per Fleischner Society recommendations. According to the UPDATED 2017 Fleischner Society recommendations, the advised followup imaging for multiple solid nodules, the largest measuring 6 mm or greater, is: LOW RISK PATIENT: CT at 3-6 months, then consider CT at 18-24 months. HIGH RISK PATIENT: CT at 3-6 months, then at 18-24 months. 4. Air-fluid level in the esophagus suggesting reflux/dysmotility, which could predispose to aspiration. 5. Partially imaged hypodensity in the pancreatic head, previously characterized as focal dilatation of the main duct on abdominal MRI from 04/18/2021. 6. Previously described possible solid renal neoplasm in the lateral left mid kidney is not well seen, follow-up with an elective MRI of the abdomen is recommended. VTE: negative Assessment and Plan (1) Atrial fibrillation with rapid ventricular response: Status: Acute Plan This is a 76-year-old male with pertinent history of atrial fibrillation not on anticoagulation, essential hypertension, mixed hyperlipidemia who presents to the emergency department evaluation of palpitations. #. AFib with RVR: Unclear compliance with beta-blanca. Will admit with c ardiac monitor. Initiated on diltiazem drip in the ER. Consulting Cardiology, obtaining TSH and echo. CHADsVASc score 3, will benefit from anticoagulation #. Essential hypertension: Continue home antihypertensives #. Mixed hyperlipidemia: On statin #. Imaging with possible solid renal neoplasm of left kidney: Follow-up with outpatient MRI #. GERD: Initiating H2 blanca Med rec pending DVT prophylaxis: Lovenox 40 mg daily Full code Cardiac diet Admit as inpatient and will require two night minimum hospital stay for IV diltiazem and optimizing medications for AFib Time Spent With Patient Time: Total time managing care of this patient today ____ minutes. Quality Stroke Does the patient have a stroke diagnosis?: No VTE Prior VTE?: No VTE Risk Level:: Medical - moderate - high VTE Device Contraindication: Treatment Not Indicated VTE Drug Contraindication: N/A - Med Ordered
[2022-05-10] MEDS: Famotidine 20 MG TABLET PO ×2 (00:48→21:57)
[2022-05-10] MEDS: Enoxaparin Sodium 40 MG/0.4 ML SYRINGE SUBCUT (00:48)
[2022-05-10] MEDS: Metoprolol Tartrate 50 MG TABLET PO ×3 (00:48→21:57)
[2022-05-10 01:07] LABS: Thyroid Stimulating Hormone 1.92 uIU/mL (0.32-4.0)
[2022-05-10] MEDS: dilTIAZem HCL 125 MG in 0.9 % Sodium Chloride 100 ML 10 MG IVCONT (01:32)
--- NOTE | 2022-05-10 01:33 | PC.NURSE ---
Pt aox4 resting at the bedside in no apparent distress. Sinus tach on monitor with hr 106. Cardizem drip started at 10mg/hr as ordered. Pt tolerating well. Will continue to monitor.
--- NOTE | 2022-05-10 02:15 | PC.NURSE ---
Med req completed.
[2022-05-10 04:02] VITALS: BP 130/94; PULSE 65; RESP 17; TEMP 36.5; O2SAT 96
--- NOTE | 2022-05-10 04:12 | PC.NURSE ---
Diltiazem drip paused at this time as pts HR 68. aware.
--- NOTE | 2022-05-10 04:16 | PC.NURSE ---
RN to RN report given to HAILEY Johnson. Pt being transferred to room 461 and aware of plan of care.
[2022-05-10 04:47] VITALS: BP 106/65; PULSE 65; RESP 15; TEMP 36.5; O2SAT 95
[2022-05-10 04:52] VITALS: BMI 27.0
--- NOTE | 2022-05-10 07:00 | CA_ITS ---
Transthoracic Echocardiogram Patient (Last, First, Middle): Mehran Ku, Gender: Male Date of : 1945 Age: 76 Procedure Date: 05/10/2022 Procedure Type: Transthoracic Echocardiogram Location: [facility] [place] Height: 177.8 cm Weight: 85.28 kg BSA: 2.03 m2 Heart Rate: bpm BP: 136 / 87 mmHg Wind Up Worker: Referring MD: Meli Gamboa MD Symptoms: afib Study Quality: Fair ECG Rhythm: Atrial Fibrillation Conclusions: - The left ventricular systolic function is hyperdynamic. The visually estimated ejection fraction is >70%. - There is mild calcification of the aortic valve. - There is mild anterior mitral leaflet thickening. Findings Procedure Information Contrast agent, definity, is being given per protocol without apparent complications. Left Ventricle Normal left ventricular cavity size. There is moderately increased left ventricular wall thickness. The left ventricular systolic function is hyperdynamic. The visually estimated ejection fraction is >70%. There is no evidence of regional wall motion abnormalities. Diastolic function is indeterminate on the basis of available data. Right Ventricle Normal right ventricular cavity size and systolic function. Atria Both atria are normal in size. Aortic Valve There is a normal trileaflet aortic valve. There is mild calcification of the aortic valve. There is no aortic valve stenosis. There is no aortic valve regurgitation. Mitral Valve There is mild anterior mitral leaflet thickening. There is no mitral valve regurgitation. There is no mitral valve stenosis. Pulmonic Valve The pulmonic valve is likely normal. Tricuspid Valve Normal tricuspid valve structure. There is trace tricuspid valve regurgitation. There is no evidence of pulmonary hypertension. Great Vessels The asc aorta is normal in size. Venous The inferior vena cava is normal in size and collapses greater than 50% with inspiration. Pericardium/Pleural There is a trivial pericardial effusion. Prior Study Comparison No prior study available for comparison. Measurements 2D Linear Measurements IVSd: 1.62 0.6-0.9/0.6-1.0 cm LVIDd: 4.45 3.9-5.3/4.2-5.9 cm LVIDd Index: 2.19 2.4-3.2/2.2-3.1 cm/m2 LVIDs: 2.60 2.0-3.6 cm LVPWd: 1.56 0.7-1.1 cm Ao Root: 3.30 2.1-3.5 cm LA Diam: 3.40 2.7-3.8/3.0-4.0 cm LAIDs Index: 1.67 1.5-2.3 cm/m2 LV Mass: 370.32 67-162/88-224 g LV Mass Index: 182.42 43-95/49-115 g/m2 LVOT Diam: 2.00 3.0+(-)1.3 cm 2D Systolic Function EF 4C: 69.80 >55% EF 2C: 74.40 >55% EF BiP: 72.20 >55% Mitral Valve MV Pk E: 0.84 MV Decel Time: 100.00 E'Lateral: 12.50 E'Medial: 8.81 E/E' Med: 9.60 E/E' Lat: 6.80 PHT: 29.00 MVA PHT: 7.59 Decel [place]: 8.41 Aortic Valve AoV Pk Yonis: 1.60 AoV Mn Yonis: 1.01 AoV VTI: 0.29 AoV Pk Grad: 10.00 Aov Mn Grad: 5.00 JENY Cont.VTI: 1.54 LVOT LVOT Pk Yonis: 1.19 LVOT Mn Yonis: 0.53 LVOT VTI: 0.14 LVOT Pk Grad: 6.00 LVOT Mn Grad: 1.00 LVOT Diam: 2.00 LVOT Area: 3.14 Diastolic Function MV Pk E: 0.84 E'Medial: 8.81 E/E' Med: 9.60 E' Laterial: 12.50 E/E' Lat: 6.80 Right Ventricle TAPSE (mm): 29.00 TVS' Yonis: 17.00 Tricuspid Valve TR Pk Yonis: 2.20 TR Pk Grad: 19.00 RA Press: 3.00 RVSP: 22.00 Great Vessels Aorta Ao Root-2D: 3.30 2.0-3.7 cm Ao Asc: 3.60 2.1-3.4 cm Pulmonary Valve PV Pk Yonis: 1.08 Peak PV Grad: 5.00 Updated in Other Vendor System with Status of Final Randy Melgar MD electronically signed on 05/10/2022 4:16:41 PM with status of Final
[2022-05-10 07:15] VITALS: BP 135/87; PULSE 91; RESP 20; TEMP 36.4; O2SAT 96
--- NOTE | 2022-05-10 07:36 | PM.EVENT ---
Event Note Date of Service: 05/10/22 Event Note: pt seen and examined on same day of admission, vitals reviewed, exam unremarkable This is a 76-year-old male with pertinent history of atrial fibrillation not on anticoagulation, essential hypertension, mixed hyperlipidemia who presents to the emergency department evaluation of palpitations and found to be in AFIB with rVR #.Unknown type of? AFib with RVR:? Unclear compliance with beta-blanca.? CHADsVASc score 3 -control with IV cardizem and transtion to oral BB or CCB -Has not been on anticoagulation, baring no contrindication will start eliquis] -defer echo to cardiology #.? Essential hypertension:? continue Lisinopril 20 daily (40 at home), Metoprolol 50 bid #.? Mixed hyperlipidemia: On statin #.? 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 GERD: Initiating H2 blanca Time Spent With Patient Time: Total time managing care of this patient today _15___ minutes.
--- NOTE | 2022-05-10 08:03 | PC.NURSE ---
cardizem gtt resumed at 08:03 due to HR of 140. Current rate is 10mg/hr per policy. Will continue to monitor. MD farley
[2022-05-10] MEDS: lisinopriL 20 MG TABLET PO (08:14)
[2022-05-10] MEDS: 0.9 % Sodium Chloride Flush 3 ML SYRINGE IVFLUSH ×2 (08:15→21:57)
[2022-05-10] MEDS: Aspirin Enteric Coated 81 MG TABLET.DR PO (08:15)
[2022-05-10 08:36] LABS: MANUAL DIFF FLAG NO
[2022-05-10 08:38] LABS: Basophils Absolute Auto 0.1 X10*3/uL (0.0-0.2); Basophils Percent Auto 0.6 % (0-2); Eosinophils Absolute Auto 0.2 X10*3/uL (0.0-0.4); Eosinophils Percent Auto 1.7 % (0-4); Hematocrit 36.8 % (42.0-52.0); Hemoglobin 11.5 g/dl (14.0-18.0); Imm Gran Abs Auto 0.19 X10*3/uL (0.00-0.03); Imm Gran Pct Auto 1.4 % (0.0-0.4); Lymphocytes Absolute Auto 3.3 X10*3/uL (1.2-4.9); Lymphocytes Percent Auto 25.2 % (20-40); Mean Corpuscular HGB Conc 31.3 g/dl (31.0-36.0); Mean Corpuscular Hemoglobin 28.3 pg (27.0-33.0); Mean Corpuscular Volume 90.4 fL (80.0-98.0); Mean Platelet Volume 10.2 fL (9.4-12.4); Monocytes Absolute Auto 1.3 X10*3/uL (0.1-1.2); Monocytes Percent Auto 9.9 % (2-11); Neutrophils Absolute Auto 8.1 x10*3/uL (2.0-8.3); Neutrophils Percent Auto 61.2 % (45-73); Platelet Count 321 X10*3/uL (160-400); Red Blood Count 4.07 X10*6/uL (4.60-5.80); Red Cell Distribution Width 15.9 % (11.0-16.0); White Blood Count 13.2 X10*3/uL (4.8-10.8)
--- NOTE | 2022-05-10 08:47 | PC.NURSE ---
Cardizem drip decreased to 5mg/hr per Dr. Addison
[2022-05-10 08:53] LABS: Anion Gap 12 (12-20); Blood Urea Nitrogen 10 mg/dL (9-16); Calcium 8.9 mg/dL (8.4-10.2); Carbon Dioxide 27 mmol/L (22-29); Chloride 104 mmol/L (96-108); Creatinine Clr Calc Pharmacy 65.2; Estimated Glomerular Filt Rate > 60; Glucose Random 152 mg/dL (60-115); Potassium 4.4 mmol/L (3.3-5.1); Sodium 139 mmol/L (135-145)
--- NOTE | 2022-05-10 08:55 | MHC.CM.PN ---
CM spoke with Patient with the assist of a Sander Hand. 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 Home/self care is the goal and CM has initiated and will follow for dc planning. Patient has not been covid vax'd and his PCP is Dr. Joao Duncan.
--- NOTE | 2022-05-10 10:06 | PM.CNCAR ---
History of Present Illness History of Present Illness Date of Service: 05/10/22 Chief complaint: Palpitations Narrative: This is a cardiology consultation regarding atrial fibrillation with rapid rate. Apparently, he has a history of atrial fibrillation but patient cannot recall his. Mention in the chart. Not any anticoagulation baseline. Has hypertension and dyslipidemia. He came to the ER for palpitations. However, when I questioned him he states he just has dizziness and no palpitations. No anginal-type symptoms or shortness of breath. No other cardiac history. Denies any history of coronary disease or myocardial infarction or cardiomyopathy. It seems he was found to be atrial fibrillation rapid rate. Then has been put on a Cardizem drip. There has been some interruption overnight and there was a pause in the morning but he is back on the drip. Review of Systems Review of Systems: Yes all other systems are reviewed and are negative Constitutional: Constitutional: Reports as per HPI and Reports no additional constitutional complaints Eyes: Eyes: Reports as per HPI and Denies no additional eye complaints ENT: Denies system reviewed and no additional complaints, except as documented and Reports as per HPI Cardiovascular: Cardiovascular: Reports as per HPI, Reports no additional cardiovascular complaints, Denies acrocyanosis, Denies cool extremities, Denies chest pain, Denies leg edema, Reports lightheadedness, Reports palpitations and Denies dyspnea Respiratory: Respiratory: Reports as per HPI, Denies no additional respiratory complaints and Denies dyspnea Gastrointestinal: Gastrointestinal: Reports as per HPI and Denies no additional gastrointestinal complaints Genitourinary: Genitourinary: Reports no additional male genitourinary complaints and Reports as per HPI Musculoskeletal: Musculoskeletal: Reports no additional musculoskeletal complaints and Reports as per HPI Integumentary/Breasts: Skin/Breast: Reports system reviewed and no additional complaints, except as docu Neurologic: Reports system reviewed and no additional complaints, except as documented and Reports as per HPI Psychiatric: Psychiatric: Reports no additional psychiatric complaints and Reports as per HPI Endocrine: Endocrine: Reports no additional endocrine complaints, Reports as per HPI and Reports palpitations Hematologic/Lymphatic: Hematologic/Lymphatic: Reports no additional hematologic/lymphatic complaints and Reports as per HPI Allergic/Immunologic: Allergic/Immunologic: Reports no additional allergic/immunologic complaints and Reports as per HPI [facility] Past Medical History Medical History Atrial fibrillation Borderline hyperlipidemia EtOH dependence High cholesterol HTN (hypertension) Hypertension Inhibited sex excitement Mild cognitive impairment OA (osteoarthritis) Obesity Family History Family History (Updated 05/10/22 @ 10:08 by Randy Melgar MD) Mother Heart problem Social History Social History Household Members: Spouse Housing: House Alcohol intake: current Alcohol intake frequency: a few times a week Alcohol type: beer Patient Tobacco Use Status: Never used Tobacco service: Yes Current occupational status: retired [employer] Allergies Allergy/AdvReac Type Severity Reaction Status Date / Time No Known Allergies [NKA] Allergy Mild NOT Verified 11/15/21 10:09 APPLICABLE Active Medications: Current Medications Acetaminophen (Acetaminophen 325 Mg Tablet) 650 mg PO Q6H PRN PRN Reason: Pain, Mild (Pain Scale 1-3) Acetaminophen (Acetaminophen Supp 650 Mg Supp.Rect) 650 mg PA Q6H PRN PRN Reason: Pain, Mild (Pain Scale 1-3) Aspirin (Aspirin Enteric Coated 81 Mg Tablet.Dr) 81 mg PO DAILY [facility] Last Admin: 05/10/22 08:15 Dose: 81 mg Famotidine (Famotidine 20 Mg Tablet) 20 mg PO BEDTIME NILE Last Admin: 05/10/22 00:48 Dose: 20 mg Diltiazem HCl 125 mg/ Sodium (Chloride) 125 mls @ 0 mls/hr IVCONT .Q0M [facility]; Protocol Last Titration: 05/10/22 07:57 Dose: 10 mg/hr, 10 mls/hr Lisinopril (Lisinopril 20 Mg Tablet) 20 mg PO DAILY [facility]; Protocol Last Admin: 05/10/22 08:14 Dose: 20 mg Meclizine HCl (Meclizine Hcl 25 Mg Tablet) 25 mg PO TID PRN PRN Reason: dizziness Melatonin (Melatonin 3 Mg Tablet) 6 mg PO BEDTIME PRN PRN Reason: Insomnia Metoprolol Tartrate (Metoprolol Tartrate 50 Mg Tablet) 50 mg PO BID [facility]; Protocol Last Admin: 05/10/22 08:15 Dose: 50 mg Ondansetron HCl (Ondansetron Hcl 4 Mg/2 Ml Vial) 4 mg IVPUSH Q8H PRN PRN Reason: Nausea and Vomiting Pharmacy Consult (Consult Rx Perform Med Rec) 1 each MISCELLANE ONCE PRN PRN Reason: Consult order Pravastatin Sodium (Pravastatin Sodium 20 Mg Tablet) 20 mg PO BEDTIME [facility] Sodium Chloride (0.9 % Sodium Chloride Flush 3 Ml Syringe) 3 ml IVFLUSH QSHIFT NILE Last Admin: 05/10/22 08:15 Dose: 3 ml Home Medications Medication Instructions Recorded Confirmed Last Taken Type lisinopril 40 mg tablet 40 mg PO DAILY 03/28/21 05/10/22 Unknown History metoprolol tartrate 50 mg tablet 50 mg PO BID 03/28/21 05/10/22 Unknown History pravastatin 20 mg tablet 20 mg PO BEDTIME 03/28/21 05/10/22 Unknown History Physical Exam Vital Signs: Vital Signs: Last Vital Signs Temp 97.5 F 05/10/22 07:15 Pulse 91 05/10/22 07:15 Resp 20 05/10/22 07:15 BP 135/87 05/10/22 07:15 Pulse Ox 96 05/10/22 07:15 O2 Del Method Room Air 05/10/22 07:15 BMI result Body Mass Index 27.0 Const: General: comfortable and no acute distress Orientation/consciousness: patient oriented x3 HEENT: Other: Unremarkable Head: Yes normal to inspection Neck: Neck: Yes normal visual inspection Chest: Chest palpation & inspection: normal inspection of the chest Resp: Auscultation: clear to auscultation bilaterally Cardio: Palpation: normal PMI Heart sounds: S1 normal heart sound present, S2 normal heart sound present, no gallops, no murmurs and no rubs GI: Palpation (GI): Soft to palpation Back/Spine/Pelvis: Other: unremarkable Skin: General skin exam: no rashes or lesions noted Neuro: General: patient oriented x3 Extrem: General: Yes normal to inspection Psych: Mental Status: mental status grossly normal Objective Labs and Meds 05/10/22 08:31 05/10/22 08:31 Lab results: Laboratory Results - last 24 hr 05/09/22 05/09/22 05/09/22 18:48 18:48 18:48 WBC 13.8 H RBC 3.93 L Hgb 11.0 L Hct 35.6 L MCV 90.6 MCH 28.0 MCHC 30.9 L RDW 15.6 Plt Count 301 MPV 10.7 Immature Gran % (Auto) 1.6 H Neut % (Auto) 61.5 Lymph % (Auto) 24.0 [place] % (Auto) 11.1 H Eos % (Auto) 1.4 Baso % (Auto) 0.4 Lymph # (Auto) 3.3 [place] # (Auto) 1.5 H Eos # (Auto) 0.2 Baso # (Auto) 0.1 Abs Immat Gran (auto) 0.22 H Absolute Neuts (auto) 8.5 H Absolute Nucleated RBC 0.000 Nucleated RBC % (auto) 0.0 Smear Tech's Comments VERIFIED PT 11.7 INR 1.0 Sodium 138 Potassium 4.2 Chloride 103 Carbon Dioxide 25 Anion Gap 14 BUN 10 Creatinine 0.96 Estim Creat Clear Calc 68.6 Estimated GFR > 60 Random Glucose 99 Calcium 8.9 Magnesium 2.0 Total Bilirubin 0.4 AST 22 ALT 19 Alkaline Phosphatase 101 Troponin I High Sens B-Natriuretic Peptide Total Protein 6.9 Albumin 3.7 TSH 1.92 Urine Color Urine Appearance Urine pH Ur Specific [place] Urine Protein Urine Glucose (UA) Urine Ketones Urine Blood Urine Nitrite Ur Leukocyte Esterase Influenza Type A (PCR) Influenza Type B (PCR) RSV RNA Qual (PCR) SARS-CoV-2 RNA (RT-PCR) 05/09/22 05/09/22 05/09/22 18:48 18:48 19:31 WBC RBC Hgb Hct MCV MCH MCHC RDW Plt Count MPV Immature Gran % (Auto) Neut % (Auto) Lymph % (Auto) [place] % (Auto) Eos % (Auto) Baso % (Auto) Lymph # (Auto) [place] # (Auto) Eos # (Auto) Baso # (Auto) Abs Immat Gran (auto) Absolute Neuts (auto) Absolute Nucleated RBC Nucleated RBC % (auto) Smear Tech's Comments PT INR Sodium Potassium Chloride Carbon Dioxide Anion Gap BUN Creatinine Estim Creat Clear Calc Estimated GFR Random Glucose Calcium Magnesium Total Bilirubin AST ALT Alkaline Phosphatase Troponin I High Sens 4.7 D B-Natriuretic Peptide 117 H Total Protein Albumin TSH Urine Color Urine Appearance Urine pH Ur Specific [place] Urine Protein Urine Glucose (UA) Urine Ketones Urine Blood Urine Nitrite Ur Leukocyte Esterase Influenza Type A (PCR) NEGATIVE Influenza Type B (PCR) NEGATIVE RSV RNA Qual (PCR) NEGATIVE SARS-CoV-2 RNA (RT-PCR) NEGATIVE 05/09/22 05/09/22 05/10/22 19:48 23:09 08:31 WBC 13.2 H RBC 4.07 L Hgb 11.5 L Hct 36.8 L MCV 90.4 MCH 28.3 MCHC 31.3 RDW 15.9 Plt Count 321 MPV 10.2 Immature Gran % (Auto) 1.4 H Neut % (Auto) 61.2 Lymph % (Auto) 25.2 [place] % (Auto) 9.9 Eos % (Auto) 1.7 Baso % (Auto) 0.6 Lymph # (Auto) 3.3 [place] # (Auto) 1.3 H Eos # (Auto) 0.2 Baso # (Auto) 0.1 Abs Immat Gran (auto) 0.19 H Absolute Neuts (auto) 8.1 Absolute Nucleated RBC 0.000 Nucleated RBC % (auto) 0.0 Smear Tech's Comments PT INR Sodium Potassium Chloride Carbon Dioxide Anion Gap BUN Creatinine Estim Creat Clear Calc Estimated GFR Random Glucose Calcium Magnesium Total Bilirubin AST ALT Alkaline Phosphatase Troponin I High Sens 7.1 D B-Natriuretic Peptide Total Protein Albumin TSH Urine Color Yellow Urine Appearance Clear Urine pH 6.5 Ur Specific [place] <= 1.005 Urine Protein Negative Urine Glucose (UA) Negative Urine Ketones Negative Urine Blood Negative Urine Nitrite Negative Ur Leukocyte Esterase Negative Influenza Type A (PCR) Influenza Type B (PCR) RSV RNA Qual (PCR) SARS-CoV-2 RNA (RT-PCR) 05/10/22 08:31 WBC RBC Hgb Hct MCV MCH MCHC RDW Plt Count MPV Immature Gran % (Auto) Neut % (Auto) Lymph % (Auto) [place] % (Auto) Eos % (Auto) Baso % (Auto) Lymph # (Auto) [place] # (Auto) Eos # (Auto) Baso # (Auto) Abs Immat Gran (auto) Absolute Neuts (auto) Absolute Nucleated RBC Nucleated RBC % (auto) Smear Tech's Comments PT INR Sodium 139 Potassium 4.4 Chloride 104 Carbon Dioxide 27 Anion Gap 12 BUN 10 Creatinine 1.01 Estim Creat Clear Calc 65.2 Estimated GFR > 60 Random Glucose 152 H Calcium 8.9 Magnesium Total Bilirubin AST ALT Alkaline Phosphatase Troponin I High Sens B-Natriuretic Peptide Total Protein Albumin TSH Urine Color Urine Appearance Urine pH Ur Specific [place] Urine Protein Urine Glucose (UA) Urine Ketones Urine Blood Urine Nitrite Ur Leukocyte Esterase Influenza Type A (PCR) Influenza Type B (PCR) RSV RNA Qual (PCR) SARS-CoV-2 RNA (RT-PCR) ECG Interpretation: EKG with atrial fibrillation at a rate of 130/Min. Telemetry reviewed. There is a pause of 6.6 seconds while in atrial fibrillation this a.m. around 6. Now rate is around 100-110/Min. Imaging Radiologist's impression: Impressions Chest X-Ray 05/09/22 19:22 IMPRESSION: No active cardiopulmonary disease. Head CT 05/09/22 20:27 IMPRESSION: 1. No acute intracranial abnormality including hemorrhage, mass effect, hydrocephalus, or acute territorial edematous infarction. 2. Stable chronic hyperdensity in the left frontal lobe which may reflect parenchymal mineralization or the presence of a cavernoma. Chest CTA 05/09/22 20:28 IMPRESSION: 1. No evidence of pulmonary embolism or increased right-sided heart pressures. 2. Increased bronchial wall thickening and mosaic attenuation of the lung parenchyma compared to prior examination from May 2020, suggesting the possibility of an infectious/inflammatory process of the small airways. 3. Background of emphysematous changes with multiple stable pulmonary nodules, largest measuring 7 mm in the medial right upper lobe. Assuming patient has no history of malignancy, recommend follow-up per Fleischner Society recommendations. According to the UPDATED 2017 Fleischner Society recommendations, the advised followup imaging for multiple solid nodules, the largest measuring 6 mm or greater, is: LOW RISK PATIENT: CT at 3-6 months, then consider CT at 18-24 months. HIGH RISK PATIENT: CT at 3-6 months, then at 18-24 months. 4. Air-fluid level in the esophagus suggesting reflux/dysmotility, which could predispose to aspiration. 5. Partially imaged hypodensity in the pancreatic head, previously characterized as focal dilatation of the main duct on abdominal MRI from 04/18/2021. 6. Previously described possible solid renal neoplasm in the lateral left mid kidney is not well seen, follow-up with an elective MRI of the abdomen is recommended. VTE: negative Assessment and Plan (1) Atrial fibrillation with rapid ventricular response: Status: Acute Plan EKG shows atrial fibrillation with rapid rate. There is mention of atrial fibrillation is history as a past medical problem but patient is not aware of it and prior EKG shows only sinus rhythm. Hence not very clear. At the current time, we can stop the diltiazem drip and start up titrating the beta-blockers. Possibly add digoxin. Anticoagulation. Stop aspirin. Echocardiogram once heart rates are better. If there is any definite evidence of tachy/Robert, then consider pacemaker. If rates currently controlled, then potentially BERNARDINO/cardioversion. Will follow up with you closely. Discussed with Dr. Addison. Time Spent With Patient Time: Total time managing care of this patient today 76 minutes. This includes review of chart, discussion with patient, discussion with nurse, review of telemetry, discussion with telemetry psychiatry, discussion with hospitalist, documentation, coordination of care. Procedures Date of Service Date of Service: 05/10/22
[2022-05-10 11:27] VITALS: BP 117/56; PULSE 95; RESP 20; TEMP 36.7; O2SAT 96
[2022-05-10 16:00] VITALS: BP 150/77; PULSE 87; RESP 20; TEMP 36.9; O2SAT 99
[2022-05-10 20:00] VITALS: BP 167/74; PULSE 82; RESP 18; TEMP 36.8; O2SAT 95
[2022-05-10] MEDS: Pravastatin Sodium 20 MG TABLET PO (21:57)
[2022-05-10] MEDS: Apixaban 5 MG TABLET PO (21:57)
[2022-05-11] VITALS: BP 140/67; PULSE 64; RESP 18; TEMP 37.2; O2SAT 94
[2022-05-11 03:28] VITALS: BP 164/76; PULSE 72; RESP 18; TEMP 36.2; O2SAT 95
[2022-05-11 07:31] VITALS: BP 144/65; PULSE 88; RESP 18; TEMP 36.2; O2SAT 96
--- NOTE | 2022-05-11 09:17 | PM.PNCARD ---
Subjective Subjective Date of Service: 05/11/22 Interval history: He states that he is doing okay. No new complaints. Review of Systems Review of Systems Yes all other systems are reviewed and are negative Constitutional: Reports as per HPI and Reports no additional constitutional complaints Eyes: Reports as per HPI and Denies no additional eye complaints Denies system reviewed and no additional complaints, except as documented and Reports as per HPI Cardiovascular: Reports as per HPI, Reports no additional cardiovascular complaints, Denies acrocyanosis, Denies cool extremities, Denies chest pain, Denies leg edema, Denies lightheadedness, Denies palpitations and Denies dyspnea Respiratory: Reports as per HPI, Denies no additional respiratory complaints and Denies dyspnea Gastrointestinal: Reports as per HPI and Denies no additional gastrointestinal complaints Genitourinary: Reports no additional male genitourinary complaints and Reports as per HPI Musculoskeletal: Reports no additional musculoskeletal complaints and Reports as per HPI Skin/Breast: Reports system reviewed and no additional complaints, except as docu Reports system reviewed and no additional complaints, except as documented and Reports as per HPI Psychiatric: Reports no additional psychiatric complaints and Reports as per HPI Endocrine: Reports no additional endocrine complaints, Reports as per HPI and Denies palpitations Hematologic/Lymphatic: Reports no additional hematologic/lymphatic complaints and Reports as per HPI Allergic/Immunologic: Reports no additional allergic/immunologic complaints and Reports as per HPI Physical Exam Vital Signs: Last Vital Signs Temp 97.1 F 05/11/22 07:31 Pulse 88 05/11/22 07:31 Resp 18 05/11/22 07:31 BP 144/65 H 05/11/22 07:31 Pulse Ox 96 05/11/22 07:31 O2 Del Method Room Air 05/11/22 07:31 BMI result Body Mass Index 27.0 Const General: comfortable and no acute distress Orientation/consciousness: patient oriented x3 HEENT Other: Unremarkable Head: Yes normal to inspection Neck Neck: Yes normal visual inspection Chest Chest palpation & inspection: normal inspection of the chest Resp Auscultation: clear to auscultation bilaterally Cardio Palpation: normal PMI Heart sounds: S1 normal heart sound present, S2 normal heart sound present, no gallops, no murmurs and no rubs GI Palpation (GI): Soft to palpation Back/Spine/Pelvis Other: unremarkable Skin General skin exam: no rashes or lesions noted Neuro General: patient oriented x3 Extrem General: Yes normal to inspection Psych Mental Status: mental status grossly normal Objective Labs and Meds 05/10/22 08:31 05/10/22 08:31 Progress Note: A&P Assessment and plan (1) Atrial fibrillation with rapid ventricular response: Status: Acute Plan He is back in sinus rhythm. No longer in atrial fibrillation. Echocardiogram with hyperdynamic LVEF and mild aortic calcification and mitral valve thickening. For medications, we can increase the home dose of metoprolol from 50 mg b.i.d. to 100 mg b.i.d. and cut back on the lisinopril. Anticoagulation with Eliquis. Stop aspirin. Discharge planning. Discussed with Dr. Addison. Follow-up can be arranged. Time Spent With Patient Time: Total time managing care of this patient today 35 minutes. This includes time spent in review of chart, telemetry, discussion with patient, hospitalist, documentation, coordination of care. Progress Note: Quality Stroke Does the patient have a stroke diagnosis?: No Procedures Date of Service Date of Service: 05/11/22
[2022-05-11] MEDS: lisinopriL 20 MG TABLET PO (09:48)
[2022-05-11] MEDS: Apixaban 5 MG TABLET PO (09:48)
[2022-05-11] MEDS: 0.9 % Sodium Chloride Flush 3 ML SYRINGE IVFLUSH (09:49)
[2022-05-11 11:06] VITALS: BP 140/74; PULSE 69; RESP 20; TEMP 36.3; O2SAT 96
--- NOTE | 2022-05-11 11:30 | P.DS_ITS ---
DS: Providers Provider Date of Service: 05/11/22 Date of admission: 05/10/22 00:16 Primary care physician: Joao Duncan Consults: 05/10/22 00:18 Consult to Cardiology Routine Consulting Provider: [facility] Cardiovascular Services Reason for consultation: afib with rvr Has provider been notified: Yes DS: Diagnosis Discharge Diagnosis (1) Atrial fibrillation with rapid ventricular response: Status: Acute DS: Summary Hospital Course Hospital Course: Admission HPI Chief Complaint: Palpitations This is a 76-year-old male with pertinent history of atrial fibrillation not on anticoagulation, essential hypertension, mixed hyperlipidemia who presents to the emergency department evaluation of palpitations.? Patient states he had multiple episodes of palpitations that started yesterday.? Each episode lasted a few minutes and resolved.? Also had episodes of lightheadedness along with palpitations.? Patient denies fever, chills, cough, chest discomfort, shortness of breath, abdominal pain, changes in urinary or bowel habits. In the emergency department, patient's heart rate was found to be 160s Hospital course: The patient has a documented history of atrial fibrillation and was on metoprolol 50 mg twice daily. For some reason, he was only on baby aspirin, not a blood thinner. He presented with palpitations and was noted to be in atrial fibrillation with a rapid ventricular response; his heart rate was as high as 160. He was started on IV Cardizem and subsequently admitted. During hospitalization, he developed 1 episode of bradycardia with a sinus pause of up to 6 seconds. He was seen in consultation by Dr. Melgar from Cardiology and was put on metoprolol. Ultimately, his heart rate came down he converted to sinus rhythm. He has been initiated Eliquis to prevent stroke. His blood pressure medication has been adjusted such that lisinopril 40 mg has been changed to 20 mg. Aspirin will D discontinue instead of him being on Eliquis. He had an echocardiogram which showed an ejection fraction greater than 70%. #.? Essential hypertension:? continue Lisinopril 20 daily (40 at home), Metoprolol now 100 mg twice daily #.? Mixed hyperlipidemia: continue Pravastatin #.? 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 GERD: Initiating H2 blanca Time Spent with Patient Time attestation: Total time managing care of this patient today ____ minutes. Discharge coordination time: Greater than 30 minutes Quality: Safe Use of Opioids Does Pt have an Active Cancer Diagnosis on the Problem List?: No Quality: Stroke Does the patient have a stroke diagnosis?: No Physical Exam Vital Signs: Vital Signs: Last Vital Signs Temp 97.4 F 05/11/22 11:06 Pulse 69 05/11/22 11:06 Resp 20 05/11/22 11:06 BP 140/74 H 05/11/22 11:06 Pulse Ox 96 05/11/22 11:06 O2 Del Method Room Air 05/11/22 11:06 BMI result Body Mass Index 27.0 Discharge Plan Discharge Anticipated Discharge Date/Time: 05/11/22 11:20 Patient Disposition: Home, Self-Care Discharge Diagnosis: Paroxysmal AFIB Referrals: Joao Duncan [Primary Care Provider] - 1 Week Discharge Medications: New metoprolol tartrate 100 mg Tablet 100 mg PO BID Qty: 61 1RF Protocol: Hold for SBP/HR < HOLD for SBP < : 90 HOLD for HR < : 60 lisinopril 20 mg Tablet 20 mg PO DAILY Qty: 30 1RF Protocol: Hold for SBP< HOLD for SBP < : 90 Eliquis 5 mg Tablet 5 mg PO Q12H Qty: 60 0RF Continued pravastatin 20 mg Tablet 20 mg PO BEDTIME meclizine 25 mg tablet 25 mg PO TID PRN (Reason: dizziness) Qty: 20 0RF Discontinued metoprolol tartrate 50 mg Tablet 50 mg PO BID lisinopril 40 mg Tablet 40 mg PO DAILY aspirin 81 mg tablet,delayed release (DR/EC) 81 mg PO DAILY Qty: 30 0RF Discharge Orders: Discharge Order (Routine); Ordered 05/11/22 Ordered By: Facundo Addison Diet: Advance to usual diet Activity on Discharge: As tolerated Stand Alone Forms: Patient Portal Discharge page Other Ambulatory Orders: MR abdomen wo con (Routine) Timeframe: 2 Weeks Facility: [facility] - Location: MRI Ordered By: Facundo Addison Care Plan Goals: The goal of afib treatment is to control the heart rhythm and prevent stroke Health Concerns: AFIB, Plan of Treatment: You should take Metoprolol 100 mg twice daily instead of 50 mg twice daily, Lisinopril 20 mg rather than 40 mg, and Eliquis to help thin your blood and prevent stroke. Stop taking Aspirin Follow up with the heart Doctor--they will call you Follow up with your Doctor rosina week, call for appointment You will have MRI of abdomen done to assess a left kidney mass Assessment: as above
--- NOTE | 2022-05-11 11:43 | MHC.CM.PN ---
Patient has been medic ally cleared for dc to home today, self care.
--- NOTE | 2022-05-11 15:13 | MHC.CM.PN ---
Per RN, Patient's Friend is providing transportation to home.
--- NOTE | 2022-05-11 16:16 | MHC.CM.PN ---
RN informed NOAH that Patient had difficulty filling his scripts (and returned to the hospital) because no insurance was listed. CM has provided Patient with a coupon for a 30 day fee trial for his Eliquis and provided him with his insurance information. NOAH attempted to reach the MS/ Grethel on her cell and office number but only reached a voice message.
--- NOTE | 2022-05-11 17:20 | PC.NURSE ---
patient was dc'd home ,stopped by at the [facility] and came back to the med/tele unit again saying that his medications are not in the pharmacy . Phone call was made and per pharmacist statement meds are available but they don't have his RX insurance on file . Pt stated that he pays some meds out of packet at times and he gets regular RX via mail. Stated that he doesn't have health insurance but has a doctor in [place] and goes to the [address] [place] [address] for Cardiology appointment and has one coming up on May. Darlyn ZAMORA was contacted and pt was given a free trial card for Eliquis . Pt stated that he will pay for his Lisinopril and Metoprolol out of packet. Patient went to the pharmacy again and came back to the nursing station again saying that the card for the Eliqius is not valid. Nathalia ZAMORA from ED was contacted and was able to provide another free trial card for eliquis
== END 2022-05-11 15:38 | disposition home or self-care (01) | DRG 310 ==
LOC: HO.ED 05-10 00:18 → HO.EDOVER 05-10 00:34 → HO.IMC 05-10 03:41
PROVIDERS: Physician Assistant; Physician Assistant Medical; Admitting Provider Student in an Organized Health Care Education/Training Program; Emergency Provider Emergency Medicine Emergency Medical Services; PCP Internal Medicine; Visit Provider Internal Medicine
DX: I48.91 Unspecified atrial fibrillation (principal); K21.9 Gastro-esophageal reflux disease without esophagitis; I49.5 Sick sinus syndrome; E78.2 Mixed hyperlipidemia; I70.0 Atherosclerosis of aorta; D49.512 Neoplasm of unspecified behavior of left kidney; Z20.822 Contact with and (suspected) exposure to COVID-19; Z79.01 Long term (current) use of anticoagulants; Z79.899 Other long term (current) drug therapy
CPT/HCPCS: 0241U; 36415; 70450; 71046; 71275; 80048; 80053; 81003; 83735; 83880; 84443; 84484; 85025; 85610; 93005; 93306; 99285; J1650; Q9957; Q9967

== ENCOUNTER → 2022-05-18 08:52 | Outpatient (BNVA) | payer OTHER, SELFPAY | PROVIDERS: PCP Internal Medicine; Visit Provider Urology | DX: C64.9 Malignant neoplasm of unspecified kidney, except renal pelvis (principal) | CPT/HCPCS: 99212 ==

== ENCOUNTER 2022-06-08 08:45 | Outpatient (REF) | payer OTHER, SELFPAY ==
[2022-06-08 10:12] LABS: Alanine Aminotransferase 18 U/L (0-40); Albumin Level 3.4 g/dL (3.5-5.0); Alkaline Phosphatase 89 U/L (39-117); Aspartate Amino Transferase 18 U/L (5-37); Bilirubin Direct 0.3 mg/dL (0.0-0.5); Bilirubin Total 0.7 mg/dL (0.0-1.0); Blood Urea Nitrogen 14 mg/dL (9-16); Estimated Glomerular Filt Rate > 60; Total Protein 6.1 g/dL (6.5-8.0)
[2022-06-10 08:28] LABS: Carbohydrate Antigen 19-9 <3 U/mL (<34)
== END 2022-06-08 08:46 | disposition home or self-care (01) ==
LOC: HO.LAB 08:45
PROVIDERS: Visit Provider Internal Medicine
DX: Q45.3 Other congenital malformations of pancreas and pancreatic duct (principal)
CPT/HCPCS: 36415; 80076; 82565; 84520; 86301

== ENCOUNTER 2022-06-18 17:46 | Inpatient (IN) | payer OTHER, SELFPAY ==
--- NOTE | 2022-06-18 | ECG_ITS ---
Test Reason : change of rythm Blood Pressure : / mmHG Vent. Rate : 057 BPM Atrial Rate : 057 BPM P-R Int : 146 ms QRS Dur : 088 ms QT Int : 416 ms P-R-T Axes : 059 023 043 degrees QTc Int : 404 ms Sinus bradycardia Otherwise normal ECG When compared with ECG of 18-JUN-2022 18:03, Sinus rhythm has replaced Atrial fibrillation Vent. rate has decreased BY 50 BPM Referred By: Alonso Francois Electronically Signed By:JEWELS FLORES
--- NOTE | ~2022-06-18 | CT_ITS ---
EXAMINATION: CT ABDOMEN AND PELVIS WITH CONTRAST CLINICAL INFORMATION: GI bleed, not acute COMPARISON: 03/28/2021 TECHNIQUE: Multidetector volumetric images were obtained from the superior aspect of the liver through the pubic symphysis following administration 85 mL of Omnipaque 350 intravenous contrast. Sagittal and coronal reformatted images were obtained on the technologist's workstation. Oral contrast: No This CT examination was performed using dose optimization techniques as appropriate, variously including the following: *Automated exposure control *Adjustment of mA and/or kV according to patient size (this includes techniques or standardized protocols for targeted exams where dose is matched to indication/reason for exam; i.e. extremities or head) *Use of iterative reconstruction technique DLP: 650 mGy-cm FINDINGS: LUNG BASES: The visualized lung bases are unremarkable. LIVER, GALLBLADDER, AND BILIARY TREE: The liver is normal in size, shape, and attenuation. No focal hepatic lesion or biliary ductal dilatation is present. Cholelithiasis is noted. There is suspected adenomyomatosis at the gallbladder fundus. PANCREAS: Redemonstrated cystic structure and/or dilated segment of pancreatic duct in the head and proximal body, without significant change. No surrounding inflammation. SPLEEN: Unremarkable. ADRENAL GLANDS: Subtle mural nodularity of the adrenal glands is similar to prior. KIDNEYS AND URETERS: Bilateral nephrograms are symmetric. No hydronephrosis or obstructing calculus identified. Small left renal cyst suspected, though an additional mildly hypodense small left renal lesion is also again noted, not cystic by CT criteria. BLADDER: Mild mural prominence, which may be due to underdistention. GASTROINTESTINAL TRACT: Colonic diverticulosis is noted. The small and large bowel are otherwise unremarkable without evidence of obstruction or pericolonic inflammatory change. The appendix is unremarkable. No free fluid or free air is seen. ABDOMINAL WALL: No significant hernia is appreciated. LYMPH NODES: Normal. VASCULAR: There is atherosclerotic calcification along the aorta and iliac arteries. PELVIC VISCERA: Unremarkable. OSSEOUS STRUCTURES: Degenerative changes are noted in the spine. CT/CT abdomen pelvis w IV con IMPRESSION: 1. No acute findings identified in the abdomen/pelvis. Colonic diverticulosis without diverticulitis. 2. Cholelithiasis. 3. Redemonstrated cystic structure versus dilated segment of pancreatic duct in the head and proximal body of the pancreas, without significant change. As previously noted, this may be better assessed with MRI/MRCP. 4. Redemonstrated small left renal lesion, not definitively cystic. Solid mass cannot be excluded. As previously noted, this would be better evaluated with renal protocol MRI.
--- NOTE | ~2022-06-18 | XR_ITS ---
EXAMINATION: XR CHEST CLINICAL INFORMATION: Cough COMPARISON: Chest x-ray 05/01/2022 TECHNIQUE: Frontal view of the chest was obtained. 6:32 PM FINDINGS: Lungs are clear. No pulmonary vascular congestion. There is no pleural effusion. The heart size is normal. The cardiac and mediastinal contours are normal. There are calcifications of the thoracic aorta. There are multilevel degenerative changes of dorsal spine. XR/XR chest 1V IMPRESSION: Unremarkable examination.
--- NOTE | ~2022-06-18 | FL_ITS ---
EXAMINATION: XR FLUOROSCOPY WITH IMAGES CLINICAL INFORMATION: Pacemaker. COMPARISON: Chest x-ray of 06/18/2022 TECHNIQUE: Fluoroscopy Supervised By: Dr. Armstrong. Fluoroscopy Time: 3.7 minutes. Cumulative Dose: 100 mGy-cm DAP: 27.2 uGy-cm2 Images: 3 FINDINGS: Intraoperative imaging demonstrates placement of dual-chamber pacemaker. FL/FL guidance in OR IMPRESSION: Intraoperative imaging for cardiology procedure.
[2022-06-18 17:58] VITALS: BP 124/84; BP 144/79; PULSE 95; PULSE 96; RESP 17; TEMP 36.9; O2SAT 100; O2SAT 97; BMI 29.5
--- NOTE | 2022-06-18 18:03 | ECG_ITS ---
Test Reason : dizziness Blood Pressure : / mmHG Vent. Rate : 107 BPM Atrial Rate : 000 BPM P-R Int : 000 ms QRS Dur : 088 ms QT Int : 296 ms P-R-T Axes : 000 020 048 degrees QTc Int : 395 ms Atrial fibrillation with rapid ventricular response Abnormal ECG When compared with ECG of 09-MAY-2022 18:41, No significant change was found Referred By: Antonia Perez Electronically Signed By:JEWELS FLORES
--- NOTE | 2022-06-18 18:15 | PC.NURSE ---
pt a+o x4, vss, he states that he was sitting in his recliner and got dizzy then it went away. he states that it happened couple more times since then. denies syncope/fall/ injury/head strike. no other symptoms reported. pt has hx of AFIB is on eliquis. he states that he is not having any dizziness at this time. AFIB on monitor.
[2022-06-18 18:33] LABS: MANUAL DIFF FLAG NO
[2022-06-18 18:34] LABS: Basophils Percent Auto 0.4 % (0-2); Eosinophils Absolute Auto 0.2 X10*3/uL (0.0-0.4); Eosinophils Percent Auto 1.6 % (0-4); Hematocrit 27.8 % (42.0-52.0); Hemoglobin 8.4 g/dl (14.0-18.0); Imm Gran Abs Auto 0.23 X10*3/uL (0.00-0.03); Imm Gran Pct Auto 2.1 % (0.0-0.4); Lymphocytes Absolute Auto 1.8 X10*3/uL (1.2-4.9); Lymphocytes Percent Auto 16.5 % (20-40); Mean Corpuscular HGB Conc 30.2 g/dl (31.0-36.0); Mean Corpuscular Hemoglobin 26.2 pg (27.0-33.0); Mean Corpuscular Volume 86.6 fL (80.0-98.0); Mean Platelet Volume 10.5 fL (9.4-12.4); Monocytes Absolute Auto 1.4 X10*3/uL (0.1-1.2); Monocytes Percent Auto 12.9 % (2-11); Neutrophils Absolute Auto 7.3 x10*3/uL (2.0-8.3); Neutrophils Percent Auto 66.5 % (45-73); Platelet Count 294 X10*3/uL (160-400); Red Blood Count 3.21 X10*6/uL (4.60-5.80); Red Cell Distribution Width 15.8 % (11.0-16.0)
[2022-06-18 18:49] LABS: INTERNATIONAL NORM RATIO 1.1 (0.9-1.1); Prothrombin Time 13.1 SEC (10.0-13.1)
[2022-06-18 18:54] LABS: Alanine Aminotransferase 18 U/L (0-40); Albumin Level 3.4 g/dL (3.5-5.0); Alkaline Phosphatase 98 U/L (39-117); Anion Gap 10 (12-20); Aspartate Amino Transferase 20 U/L (5-37); Bilirubin Total 0.5 mg/dL (0.0-1.0); Blood Urea Nitrogen 13 mg/dL (9-16); Calcium 8.6 mg/dL (8.4-10.2); Carbon Dioxide 26 mmol/L (22-29); Chloride 103 mmol/L (96-108); Creatinine Clr Calc Pharmacy 75.5; Estimated Glomerular Filt Rate > 60; Ethanol < 10 mg/dL; Glucose Random 95 mg/dL (60-115); Potassium 4.9 mmol/L (3.3-5.1); Sodium 134 mmol/L (135-145); Total Protein 6.5 g/dL (6.5-8.0)
[2022-06-18 18:57] LABS: Appearance Urine Clear; Color Urine Yellow; Glucose Urine UA Negative (Negative); Leukocyte Esterase Urine Negative (Negative); Nitrite Urine Negative (Negative); Specific Gravity - Urine <= 1.005 (1.005-1.025); Urine Blood Negative (Negative); Urine Ketones Negative (Negative); Urine Protein Negative (Neg-Trace)
[2022-06-18 18:57] LABS: B Type Natriuretic Peptide 56 pg/mL (<100)
--- NOTE | 2022-06-18 19:00 | ED_ITS ---
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 He states he is otherwise been feeling well and denies any speech changes or unilateral numbness/tingling/weakness. He also denies any chest pain or palpitations. Related Data Home Medications Medication Instructions Recorded Confirmed pravastatin 20 mg tablet 20 mg PO BEDTIME 03/28/21 05/18/22 aspirin 81 mg tablet,delayed 81 mg PO DAILY 05/18/22 05/18/22 release Previous Rx's Medication Instructions Recorded meclizine 25 mg tablet 25 mg PO TID PRN dizziness #20 tabs 04/20/22 apixaban 5 mg tablet (Eliquis) 5 mg PO Q12H 90 days #180 tabs 06/08/22 lisinopril 20 mg tablet 20 mg PO DAILY 90 days #90 tabs 06/08/22 metoprolol tartrate 100 mg tablet 100 mg PO BID 90 days #180 tabs 06/08/22 Allergies Allergy/AdvReac Type Severity Reaction Status Date / Time No Known Allergies [NKA] Allergy Mild NOT Verified 06/18/22 18:04 APPLICABLE Review of Systems Review of Systems: Pertinent positives and negatives as stated in HPI PMFSH Past Medical History Source: nursing notes reviewed Medical History Atrial fibrillation Borderline hyperlipidemia EtOH dependence High cholesterol HTN (hypertension) Hypertension Inhibited sex excitement Mild cognitive impairment OA (osteoarthritis) Obesity Family History Family History Mother Heart problem Social History Social History Household Members: Spouse Housing: House Alcohol intake: current Alcohol intake frequency: does not drink Alcohol type: beer Patient Tobacco Use Status: Never used Tobacco Use of substances other than those prescribed or required for medical reasons: No Advance Directives: No Advance Directives Information Provided: No service: Yes Current occupational status: retired Physical Exam Vital Signs: Vital Signs: Last Vital Signs Temp 98.5 F 06/18/22 19:17 Pulse 97 06/18/22 19:17 Resp 16 06/18/22 19:17 BP 127/71 06/18/22 19:17 Pulse Ox 96 06/18/22 19:17 O2 Del Method Room Air 06/18/22 19:17 BMI result Body Mass Index 29.5 VITAL SIGNS: Reviewed. GENERAL: Well developed, well nourished, in no acute distress. HEAD: Normocephalic/atraumatic EYES: PERRLA, EOMI EARS: Ext canals without abnormality NOSE: Nares patent bilateral OROPHARYNX: no oral lesions noted, posterior pharynx clear NECK: Supple, no adenopathy LUNGS: Normal breath sounds. No adventitious sounds or accessory muscle use. SpO2<96> CARDIOVASCULAR: Regular rate and rhythm without noted murmurs, no JVD or lower extremity edema. ABDOMEN: Soft, non-tender, non-distended with bowel sounds. GONZALO: [Parachute Rigger-Aditi] No skin tags, difficulty with rectal exam but noted to have blood-tinged substance on finger tip no evidence of melena MUSCULOSKELETAL: No tenderness, deformities, or effusions noted on gross inspection. EXTREMITIES: No cyanosis, clubbing or edema. SKIN: Inspection of the skin reveals no rashes NEUROLOGIC: Alert and oriented x 4. Strength and sensation to light touch were grossly intact x 4. Medications Administered Discontinued Medications Generic Name Dose Route Start Last Admin Trade Name Freq PRN Reason Stop Dose Admin Metoprolol Tartrate 5 mg 06/18/22 18:33 06/18/22 19:03 Metoprolol Tartrate 5 Mg/5 Ml Vial IVPUSH 06/18/22 18:34 5 mg ONCE ONE Administration Medical Decision Making Medical Decision Making [facility] Narrative: 76-year-old male with history and clinical presentation without focal deficits, patient otherwise appears well but is obviously in atrial fibrillation with RVR no significant shortness of breath noted. I reviewed all laboratory investigations and he has a noted drop in his hemoglobin but denies any melena or hematochezia and denies any hematemesis. I did order 5 mg Lopressor, IVP for the RVR, however suspect that the tachycardia may be attributable to the anemia. Patient has no abdominal discomfort so I do not suspect any intra-abdominal infection or bleeding. 2039: I reviewed all investigations and my interpretation is that this patient is likely tachycardic secondary to anemia and suspect that patient's dizziness may be attributed ill to this as well. I consented the patient in Jamaican, he understands that he will need to be admitted, will proceed with CT abdomen pelvis with IV contrast, I discussed this with the inpatient hospitalist who accepts admission. Follow-up: Chest x-ray results and CT scan abdomen/pelvis. Differential Diagnosis Please see the discussion above Consult Healthcare Provider Management of the patient was discussed with: Hospitalist Please see the discussion above Lab Data Please see the discussion above 06/18/22 18:28 06/18/22 18:28 Labs: Lab Results 06/18/22 06/18/22 06/18/22 Range/Units 18:28 18:28 18:28 WBC 11.0 H (4.8-10.8) X10*3/uL RBC 3.21 L D (4.60-5.80) X10*6/uL Hgb 8.4 L D (14.0-18.0) g/dl Hct 27.8 L D (42.0-52.0) % MCV 86.6 (80.0-98.0) fL MCH 26.2 L (27.0-33.0) pg MCHC 30.2 L (31.0-36.0) g/dl RDW 15.8 (11.0-16.0) % Plt Count 294 (160-400) X10*3/uL MPV 10.5 (9.4-12.4) fL Immature Gran % (Auto) 2.1 H (0.0-0.4) % Neut % (Auto) 66.5 (45-73) % Lymph % (Auto) 16.5 L (20-40) % Ogle % (Auto) 12.9 H (2-11) % Eos % (Auto) 1.6 (0-4) % Baso % (Auto) 0.4 (0-2) % Lymph # (Auto) 1.8 (1.2-4.9) X10*3/uL [place]gle # (Auto) 1.4 H (0.1-1.2) X10*3/uL Eos # (Auto) 0.2 (0.0-0.4) X10*3/uL Baso # (Auto) 0.0 (0.0-0.2) X10*3/uL Abs Immat Gran (auto) 0.23 H (0.00-0.03) X10*3/uL Absolute Neuts (auto) 7.3 (2.0-8.3) x10*3/uL Absolute Nucleated RBC 0.000 (0.0-0.012) X10*3/uL Nucleated RBC % (auto) 0.0 (0.0-0.2) /100WBC PT 13.1 (10.0-13.1) SEC INR 1.1 (0.9-1.1) Sodium 134 L (135-145) mmol/L Potassium 4.9 (3.3-5.1) mmol/L Chloride 103 (96-108) mmol/L Carbon Dioxide 26 (22-29) mmol/L Anion Gap 10 L (12-20) BUN 13 (9-16) mg/dL Creatinine 0.94 (0.5-1.4) mg/dL Estim Creat Clear Calc 75.5 Estimated GFR > 60 Random Glucose 95 (60-115) mg/dL Calcium 8.6 (8.4-10.2) mg/dL Total Bilirubin 0.5 (0.0-1.0) mg/dL AST 20 (5-37) U/L ALT 18 (0-40) U/L Alkaline Phosphatase 98 (39-117) U/L Troponin I High Sens (<3.5-35.0) ng/L B-Natriuretic Peptide (<100) pg/mL Total Protein 6.5 (6.5-8.0) g/dL Albumin 3.4 L (3.5-5.0) g/dL Urine Color Urine Appearance Urine pH (5.0-9.0) Ur Specific [place] (1.005-1.025) Urine Protein (Neg-Trace) mg/dL Urine Glucose (UA) (Negative) mg/dL Urine Ketones (Negative) mg/dL Urine Blood (Negative) Urine Nitrite (Negative) Ur Leukocyte Esterase (Negative) Stool Occult Blood (NEGATIVE) Ethyl Alcohol mg/dL 06/18/22 06/18/22 06/18/22 Range/Units 18:28 18:28 18:28 WBC (4.8-10.8) X10*3/uL RBC (4.60-5.80) X10*6/uL Hgb (14.0-18.0) g/dl Hct (42.0-52.0) % MCV (80.0-98.0) fL MCH (27.0-33.0) pg MCHC (31.0-36.0) g/dl RDW (11.0-16.0) % Plt Count (160-400) X10*3/uL MPV (9.4-12.4) fL Immature Gran % (Auto) (0.0-0.4) % Neut % (Auto) (45-73) % Lymph % (Auto) (20-40) % Ogle % (Auto) (2-11) % Eos % (Auto) (0-4) % Baso % (Auto) (0-2) % Lymph # (Auto) (1.2-4.9) X10*3/uL Ogle # (Auto) (0.1-1.2) X10*3/uL Eos # (Auto) (0.0-0.4) X10*3/uL Baso # (Auto) (0.0-0.2) X10*3/uL Abs Immat Gran (auto) (0.00-0.03) X10*3/uL Absolute Neuts (auto) (2.0-8.3) x10*3/uL Absolute Nucleated RBC (0.0-0.012) X10*3/uL Nucleated RBC % (auto) (0.0-0.2) /100WBC PT (10.0-13.1) SEC INR (0.9-1.1) Sodium (135-145) mmol/L Potassium (3.3-5.1) mmol/L Chloride (96-108) mmol/L Carbon Dioxide (22-29) mmol/L Anion Gap (12-20) BUN (9-16) mg/dL Creatinine (0.5-1.4) mg/dL Estim Creat Clear Calc Estimated GFR Random Glucose (60-115) mg/dL Calcium (8.4-10.2) mg/dL Total Bilirubin (0.0-1.0) mg/dL AST (5-37) U/L ALT (0-40) U/L Alkaline Phosphatase (39-117) U/L Troponin I High Sens 3.3 D (<3.5-35.0) ng/L B-Natriuretic Peptide 56 (<100) pg/mL Total Protein (6.5-8.0) g/dL Albumin (3.5-5.0) g/dL Urine Color Urine Appearance Urine pH (5.0-9.0) Ur Specific [place] (1.005-1.025) Urine Protein (Neg-Trace) mg/dL Urine Glucose (UA) (Negative) mg/dL Urine Ketones (Negative) mg/dL Urine Blood (Negative) Urine Nitrite (Negative) Ur Leukocyte Esterase (Negative) Stool Occult Blood (NEGATIVE) Ethyl Alcohol < 10 mg/dL 06/18/22 06/18/22 Range/Units 18:35 20:00 WBC (4.8-10.8) X10*3/uL RBC (4.60-5.80) X10*6/uL Hgb (14.0-18.0) g/dl Hct (42.0-52.0) % MCV (80.0-98.0) fL MCH (27.0-33.0) pg MCHC (31.0-36.0) g/dl RDW (11.0-16.0) % Plt Count (160-400) X10*3/uL MPV (9.4-12.4) fL Immature Gran % (Auto) (0.0-0.4) % Neut % (Auto) (45-73) % Lymph % (Auto) (20-40) % [place]gle % (Auto) (2-11) % Eos % (Auto) (0-4) % Baso % (Auto) (0-2) % Lymph # (Auto) (1.2-4.9) X10*3/uL [place]gle # (Auto) (0.1-1.2) X10*3/uL Eos # (Auto) (0.0-0.4) X10*3/uL Baso # (Auto) (0.0-0.2) X10*3/uL Abs Immat Gran (auto) (0.00-0.03) X10*3/uL Absolute Neuts (auto) (2.0-8.3) x10*3/uL Absolute Nucleated RBC (0.0-0.012) X10*3/uL Nucleated RBC % (auto) (0.0-0.2) /100WBC PT (10.0-13.1) SEC INR (0.9-1.1) Sodium (135-145) mmol/L Potassium (3.3-5.1) mmol/L Chloride (96-108) mmol/L Carbon Dioxide (22-29) mmol/L Anion Gap (12-20) BUN (9-16) mg/dL Creatinine (0.5-1.4) mg/dL Estim Creat Clear Calc Estimated GFR Random Glucose (60-115) mg/dL Calcium (8.4-10.2) mg/dL Total Bilirubin (0.0-1.0) mg/dL AST (5-37) U/L ALT (0-40) U/L Alkaline Phosphatase (39-117) U/L Troponin I High Sens (<3.5-35.0) ng/L B-Natriuretic Peptide (<100) pg/mL Total Protein (6.5-8.0) g/dL Albumin (3.5-5.0) g/dL Urine Color Yellow Urine Appearance Clear Urine pH 6.0 (5.0-9.0) Ur Specific [place] <= 1.005 (1.005-1.025) Urine Protein Negative (Neg-Trace) mg/dL Urine Glucose (UA) Negative (Negative) mg/dL Urine Ketones Negative (Negative) mg/dL Urine Blood Negative (Negative) Urine Nitrite Negative (Negative) Ur Leukocyte Esterase Negative (Negative) Stool Occult Blood POSITIVE (NEGATIVE) Ethyl Alcohol mg/dL Independent Interpretation I performed an independent interpretation of an: EKG Interpretation: Atrial fibrillation with RVR, HR-107, no STEMI, peaked appearance of T-waves is consistent with prior EKGs, QRS/QTC is within normal limits. Discharge Plan Discharge Clinical Impression: Atrial fibrillation with rapid ventricular response, GI bleed, Chronic anticoagulation, Anemia Patient Disposition: Admitted As Inpatient
[2022-06-18 19:02] LABS: Troponin-I High Sensitivity 3.3 ng/L (<3.5-35.0)
[2022-06-18] MEDS: Metoprolol Tartrate 5 MG/5 ML VIAL IVPUSH (19:03)
[2022-06-18 19:17] VITALS: BP 127/71; PULSE 97; RESP 16; TEMP 36.9; O2SAT 96
[2022-06-18 20:16] LABS: OBS Int Ctl Valid YES; OBS1 POSITIVE (NEGATIVE)
[2022-06-18 21:04] VITALS: BP 139/90; PULSE 111; RESP 16; TEMP 36.9; O2SAT 97
--- NOTE | 2022-06-18 21:07 | P.HPHOSP_ITS ---
History of Present Illness Date of Service: 06/18/22 Chief Complaint: Dizziness 76-year-old male with past medical history of AFib on Eliquis, HTN, history of alcohol abuse although patient currently denies alcohol use for the past 2 months, presents the hospital with complaints of dizziness. Patient is Serbian-speaking only, history is obtained with the help of an meteorology professor. Patient reports that his dizziness is intermittent, worse with walking, he denies any shortness of breath, no chest pain, no palpitations. Reports noticing some bloody bowel movements on and off for the past few weeks, but reports that he has hemorrhoids. denies using any aspirin, no NSAIDs. Reports no abdominal pain, no nausea or vomiting, no diarrhea. Patient denies any chest pain, no palpitations, no numbness tingling or weakness in extremities, no urinary symptoms and no lower extremity edema. On arrival to the ED patient noticed to have tachycardia with a heart rate increasing to 140s, patient received 5 mg of IV Lopressor, and received his home dose of metoprolol. While in the ED patient observed to have 2 episodes of 3-5 second pauses of monitor . he was awake during these episodes and denies feeling anything when the happened. Otherwise stable After patient developed this 2nd pause at lasted about 3 seconds, patient went into sinus bradycardia with heart rate in the 50s. Lab work otherwise significant for WBC count of 11, hemoglobin of 8.4 which dropped from 11.5 on 05/10, hematocrit 27.8, sodium 134, BNP of 56, troponin of 3.3, TSH of 1.65 UA negative, stool occult blood positive, Abdomen pelvic CT shows no acute findings in the abdomen and pelvis, diverticulosis with no diverticulitis, cholelithiasis, cystic structure versus dilated segment of pancreatic duct in the head and proximal body of the pancreas which was seen and previous imaging as well as a left renal cyst lesion Patient will be admitted for further management Review of Systems Review of Systems: Yes all other systems are reviewed and are negative [facility] Medical History Atrial fibrillation Borderline hyperlipidemia EtOH dependence High cholesterol HTN (hypertension) Hypertension Inhibited sex excitement Mild cognitive impairment OA (osteoarthritis) Obesity Family History Mother Heart problem Social History Household Members: Spouse Housing: House Alcohol intake: current Alcohol intake frequency: does not drink Alcohol type: beer Patient Tobacco Use Status: Never used Tobacco Use of substances other than those prescribed or required for medical reasons: No Advance Directives: No Advance Directives Information Provided: No Nutrition Risks: No Nutritional Risk service: Yes Current occupational status: retired Meds Allergies Allergy/AdvReac Type Severity Reaction Status Date / Time No Known Allergies [NKA] Allergy Mild NOT Verified 06/18/22 18:04 APPLICABLE Active Medications: Current Medications Pharmacy Consult (Consult Rx Perform Med Rec) 1 each MISCELLANE ONCE PRN PRN Reason: Consult order Physical Exam Vital Signs and Narrative: Vital Signs: Last Vital Signs Temp 98.4 F 06/18/22 21:04 Pulse 111 H 06/18/22 21:04 Resp 16 06/18/22 21:04 BP 139/90 H 06/18/22 21:04 Pulse Ox 97 06/18/22 21:04 O2 Del Method Room Air 06/18/22 21:04 BMI result Body Mass Index 29.5 Const: General: cooperative and no acute distress Orientation/consciousness : patient oriented x3 Eyes: General: appearance normal, both eyes and all related structures Resp: Effort & Inspection: normal respiratory effort Auscultation: clear to auscultation bilaterally Cardio: Other: Tachycardic, irregular rhythm GI: Palpation (GI): Soft to palpation Auscultation: normal bowel sounds Skin: General skin exam: no rashes or lesions noted Neuro: General: patient oriented x3 Cognition (Neuro): normal cognition Extrem: General: Yes normal to inspection and Yes no pedal edema Results Labs 06/18/22 18:28 06/18/22 18:28 Labs: Laboratory Results - last 24 hr 06/18/22 06/18/22 06/18/22 18:28 18:28 18:28 MCV 86.6 MCH 26.2 L MCHC 30.2 L RDW 15.8 Plt Count 294 MPV 10.5 Immature Gran % (Auto) 2.1 H Neut % (Auto) 66.5 Lymph % (Auto) 16.5 L [place] % (Auto) 12.9 H Eos % (Auto) 1.6 Baso % (Auto) 0.4 Lymph # (Auto) 1.8 [place] # (Auto) 1.4 H Eos # (Auto) 0.2 Baso # (Auto) 0.0 Abs Immat Gran (auto) 0.23 H Absolute Neuts (auto) 7.3 Absolute Nucleated RBC 0.000 Nucleated RBC % (auto) 0.0 PT 13.1 INR 1.1 Anion Gap 10 L Estim Creat Clear Calc 75.5 Estimated GFR > 60 Random Glucose 95 Calcium 8.6 Total Bilirubin 0.5 AST 20 ALT 18 Alkaline Phosphatase 98 Troponin I High Sens B-Natriuretic Peptide Total Protein 6.5 Albumin 3.4 L Urine Color Urine Appearance Urine pH Ur Specific [place] Urine Protein Urine Glucose (UA) Urine Ketones Urine Blood Urine Nitrite Ur Leukocyte Esterase Stool Occult Blood Ethyl Alcohol 06/18/22 06/18/22 06/18/22 18:28 18:28 18:28 MCV MCH MCHC RDW Plt Count MPV Immature Gran % (Auto) Neut % (Auto) Lymph % (Auto) [place] % (Auto) Eos % (Auto) Baso % (Auto) Lymph # (Auto) [place] # (Auto) Eos # (Auto) Baso # (Auto) Abs Immat Gran (auto) Absolute Neuts (auto) Absolute Nucleated RBC Nucleated RBC % (auto) PT INR Anion Gap Estim Creat Clear Calc Estimated GFR Random Glucose Calcium Total Bilirubin AST ALT Alkaline Phosphatase Troponin I High Sens 3.3 D B-Natriuretic Peptide 56 Total Protein Albumin Urine Color Urine Appearance Urine pH Ur Specific [place] Urine Protein Urine Glucose (UA) Urine Ketones Urine Blood Urine Nitrite Ur Leukocyte Esterase Stool Occult Blood Ethyl Alcohol < 10 06/18/22 06/18/22 18:35 20:00 MCV MCH MCHC RDW Plt Count MPV Immature Gran % (Auto) Neut % (Auto) Lymph % (Auto) [place] % (Auto) Eos % (Auto) Baso % (Auto) Lymph # (Auto) [place] # (Auto) Eos # (Auto) Baso # (Auto) Abs Immat Gran (auto) Absolute Neuts (auto) Absolute Nucleated RBC Nucleated RBC % (auto) PT INR Anion Gap Estim Creat Clear Calc Estimated GFR Random Glucose Calcium Total Bilirubin AST ALT Alkaline Phosphatase Troponin I High Sens B-Natriuretic Peptide Total Protein Albumin Urine Color Yellow Urine Appearance Clear Urine pH 6.0 Ur Specific [place] <= 1.005 Urine Protein Negative Urine Glucose (UA) Negative Urine Ketones Negative Urine Blood Negative Urine Nitrite Negative Ur Leukocyte Esterase Negative Stool Occult Blood POSITIVE Ethyl Alcohol Imaging Radiologist's Impressions: Impressions Chest X-Ray 06/18/22 18:35 IMPRESSION: Unremarkable examination. Assessment and Plan (1) Atrial fibrillation with rapid ventricular response: Status: Acute (2) Normocytic anemia: Status: Acute (3) Acute on chronic anemia: Status: Acute (4) Sinus bradycardia: Status: Acute (5) Sick sinus syndrome: Status: Acute (6) Dizziness: Status: Acute (7) Cancer of kidney: Status: Acute Plan 76-year-old male with past medical history of AFib on anticoagulation, hypertension, presents to the hospital with complaints of dizziness, found to have multiple abnormalities # AFib with RVR - on arrival patient was found to be in AFib with RVR, was given 1 dose of IV metoprolol, and home medications was resumed - he then developed 2 episodes of few seconds of pauses on quality assurance monitor final, and sinus bradycardia - given the dizziness, this is concerning for sick sinus syndrome - EKG shows no AV block - will obtain echocardiogram, will consult Cardiology - admit to telemetry # normocytic anemia, acute on chronic anemia, - likely secondary to GI bleed - dropped from 11-8.4 within less than 2 months - evidence of diverticulosis with no diverticulitis on CT abdomen - patient on Eliquis, denies any use of NSAIDs - will hold off Eliquis at this time, GI consult, receiving 1 unit of PRBC - follow CBC # dizziness - likely multifactorial secondary to the above 2 reasons including anemia, AFib, sinus bradycardia, episodes of pauses seen on telemetry - will admit to telemetry - cardiology consulted # abnormal mass of kidney/pancreas - 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 Quality Stroke Does the patient have a stroke diagnosis?: No VTE Prior VTE?: No VTE Risk Level:: Medical - moderate - high VTE Device Contraindication: N/A - Device Ordered VTE Drug Contraindication: Treatment Not Indicated
[2022-06-18] MEDS: iohexoL 350 MG/ML 100 ML INFUS..BTL IV (21:11)
[2022-06-18] MEDS: Metoprolol Tartrate 100 MG TABLET PO (21:16)
[2022-06-18] MEDS: Pantoprazole Sodium 40 MG/10 ML VIAL IVPUSH (21:16)
--- NOTE | 2022-06-18 21:28 | PC.NURSE ---
second IV placed 22g in RFA
[2022-06-18 21:34] VITALS: BP 149/72; PULSE 117; RESP 12; TEMP 36.9
[2022-06-18 21:51] VITALS: BP 119/65; PULSE 58; RESP 12; TEMP 36.9
[2022-06-18 21:59] VITALS: BP 130/67; PULSE 62; RESP 16; TEMP 36.9
--- NOTE | 2022-06-18 22:02 | PC.NURSE ---
this RN was in pts room while administering blood when patient had episode of asystole lasting approximately 2 seconds. Pt jolted up in bed and stated that he was dizzy. This RN stopped the blood administration and tiger texted MD Francois. GRACIELA Au printed out rhythm strip. MD Francois at bedside. Verbal order to resume blood again and obtain an EKG. GRACIELA Parra in room at this time obtaining EKG. Prior to period of aystole patient HR was in the 90s-100s, after the period of asystole patient has sustained a HR of 50-60s
[2022-06-18 23:05] LABS: Thyroid Stimulating Hormone 1.65 uIU/mL (0.32-4.0)
[2022-06-19] VITALS (10 sets, daily range): BP systolic 95–167; BP diastolic 58–77; PULSE 57–93; RESP 15–20; TEMP 36.2–37.1; O2SAT 92–98; BMI 28.3
--- NOTE | 2022-06-19 07:00 | CA_ITS ---
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 The calculated ejection fraction is 63% by biplane method. - There is mildly increased left ventricular wall thickness. - No obvious valvular pathology seen on this study. Findings Left Ventricle Normal left ventricular cavity size. There is mildly increased left ventricular wall thickness. The left ventricular systolic function is normal. The calculated ejection fraction is 63% by biplane method. There is no evidence of regional wall motion abnormalities. Diastolic function is normal for age. Right Ventricle Normal right ventricular cavity size and systolic function. Atria Both atria are normal in size. Aortic Valve There is a normal trileaflet aortic valve. There is mild calcification of the aortic valve. There is no aortic valve stenosis. There is no aortic valve regurgitation. Mitral Valve There is mild anterior mitral leaflet thickening. There is no mitral valve regurgitation. There is no mitral valve stenosis. Pulmonic Valve The pulmonic valve is likely normal. Tricuspid Valve There is trace tricuspid valve regurgitation. There is no evidence of pulmonary hypertension. Great Vessels The asc aorta is normal in size. Venous The inferior vena cava is normal in size and collapses greater than 50% with inspiration. Pericardium/Pleural There is a trivial pericardial effusion. Prior Study Comparison No significant change compared to prior study dated: 05/10/2022. Recommendations, Care & Conclusions No obvious valvular pathology seen on this study. Measurements 2D Linear Measurements IVSd: 1.26 0.6-0.9/0.6-1.0 cm LVIDd: 4.76 3.9-5.3/4.2-5.9 cm LVIDd Index: 2.31 2.4-3.2/2.2-3.1 cm/m2 LVIDs: 3.08 2.0-3.6 cm LVPWd: 1.31 0.7-1.1 cm Ao Root: 3.20 2.1-3.5 cm LA Diam: 4.00 2.7-3.8/3.0-4.0 cm LAIDs Index: 1.94 1.5-2.3 cm/m2 LV Mass: 297.42 67-162/88-224 g LV Mass Index: 144.38 43-95/49-115 g/m2 LVOT Diam: 2.40 3.0+(-)1.3 cm 2D Systolic Function EF 4C: 68.70 >55% EF 2C: 59.00 >55% EF BiP: 62.60 >55% Mitral Valve MV Pk E: 0.84 MV PK A: 0.88 MV Decel Time: 268.00 E/A: 1.00 E'Lateral: 8.05 E'Medial: 5.87 E/E' Med: 14.30 E/E' Lat: 10.40 PHT: 78.00 MVA PHT: 2.82 Decel [place]: 3.13 Aortic Valve AoV Pk Yonis: 2.21 AoV Mn Yonis: 1.27 AoV VTI: 0.49 AoV Pk Grad: 20.00 Aov Mn Grad: 8.00 JENY Cont.VTI: 3.00 LVOT LVOT Pk Yonis: 1.31 LVOT Mn Yonis: 0.76 LVOT VTI: 0.32 LVOT Pk Grad: 7.00 LVOT Mn Grad: 3.00 LVOT Diam: 2.40 LVOT Area: 4.52 Diastolic Function MV Pk E: 0.84 MV Pk A: 0.88 E/A: 1.00 E'Medial: 5.87 E/E' Med: 14.30 E' Laterial: 8.05 E/E' Lat: 10.40 Right Ventricle TAPSE (mm): 26.00 TVS' Yonis: 21.00 Tricuspid Valve TR Pk Yonis: 1.90 TR Pk Grad: 14.00 RA Press: 3.00 RVSP: 17.00 Great Vessels Aorta Ao Root-2D: 3.20 2.0-3.7 cm Ao Asc: 3.60 2.1-3.4 cm Pulmonary Valve PV Pk Yonis: 1.06 Peak PV Grad: 4.00 Updated in Other Vendor System with Status of Final Randy Melgar MD electronically signed on 06/19/2022 11:51:49 AM with status of Final
[2022-06-19 07:02] LABS: Basophils Percent Auto 0.4 % (0-2); Eosinophils Absolute Auto 0.2 X10*3/uL (0.0-0.4); Eosinophils Percent Auto 1.7 % (0-4); Hematocrit 28.5 % (42.0-52.0); Hemoglobin 8.9 g/dl (14.0-18.0); Imm Gran Abs Auto 0.21 X10*3/uL (0.00-0.03); Imm Gran Pct Auto 1.9 % (0.0-0.4); Lymphocytes Absolute Auto 2.1 X10*3/uL (1.2-4.9); Lymphocytes Percent Auto 18.4 % (20-40); MANUAL DIFF FLAG NO; Mean Corpuscular HGB Conc 31.2 g/dl (31.0-36.0); Mean Corpuscular Hemoglobin 27.4 pg (27.0-33.0); Mean Corpuscular Volume 87.7 fL (80.0-98.0); Mean Platelet Volume 10.7 fL (9.4-12.4); Monocytes Absolute Auto 1.5 X10*3/uL (0.1-1.2); Monocytes Percent Auto 12.8 % (2-11); Neutrophils Absolute Auto 7.4 x10*3/uL (2.0-8.3); Neutrophils Percent Auto 64.8 % (45-73); Platelet Count 277 X10*3/uL (160-400); Red Blood Count 3.25 X10*6/uL (4.60-5.80); Red Cell Distribution Width 15.9 % (11.0-16.0); White Blood Count 11.3 X10*3/uL (4.8-10.8)
[2022-06-19 07:32] LABS: Anion Gap 10 (12-20); Blood Urea Nitrogen 13 mg/dL (9-16); Calcium 8.7 mg/dL (8.4-10.2); Carbon Dioxide 27 mmol/L (22-29); Chloride 104 mmol/L (96-108); Creatinine Clr Calc Pharmacy 66.3; Estimated Glomerular Filt Rate > 60; Glucose Random 91 mg/dL (60-115); Potassium 4.9 mmol/L (3.3-5.1); Sodium 136 mmol/L (135-145)
--- NOTE | 2022-06-19 08:57 | MHC.CM.PN ---
CM met with Patient at bedside. 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 Home/self care is the goal and CM has initiated and will follow for dc planning. Patient has received NO covid vax and his PCP is Dr. Graciela Nolan.
--- NOTE | 2022-06-19 09:51 | P.PNIM_ITS ---
Subjective Subjective Date of Service: 06/19/22 Review of Systems Follow up afib rvr, anemia, SSS no pain, or discomfort Physical Exam Vital Signs: Vital Signs: Last Vital Signs Temp 97.6 F 06/19/22 09:00 Pulse 60 06/19/22 09:00 Resp 20 06/19/22 09:00 BP 145/68 H 06/19/22 09:00 Pulse Ox 96 06/19/22 09:00 O2 Del Method Room Air 06/19/22 09:00 BMI result Body Mass Index 28.3 Appearing in no acute distress lung sounds are clear to auscultation heart regular rate rhythm, clear S1, S2 positive bowel sounds, abdomen is soft, nontender neuro patient is alert x3, no focal deficits Objective Data Active Medications Acetaminophen (Acetaminophen 325 Mg Tablet) 650 mg PO Q6H PRN PRN Reason: Pain, Mild (Pain Scale 1-3) Docusate Sodium (Docusate Sodium 100 Mg Capsule) 100 mg PO DAILY PRN PRN Reason: Constipation Cefazolin Sodium/Dextrose (Ancef) 2 gm in 50 mls @ 100 mls/hr IV PREOP ONE Stop: 06/19/22 10:02 Lisinopril (Lisinopril 20 Mg Tablet) 20 mg PO DAILY [facility]; Protocol Ondansetron HCl (Ondansetron Hcl 4 Mg/2 Ml Vial) 4 mg IVPUSH Q8H PRN PRN Reason: Nausea and Vomiting Pantoprazole Sodium (Pantoprazole Sodium 40 Mg/10 Ml Vial) 40 mg IVPUSH BID@0630,1630 [facility] Last Admin: 06/18/22 21:16 Dose: 40 mg Documented By: SIVAKUMAR Pharmacy Consult (Consult Rx Perform Med Rec) 1 each MISCELLANE ONCE PRN PRN Reason: Consult order Sodium Chloride (0.9 % Sodium Chloride Flush 3 Ml Syringe) 3 ml IVFLUSH QSHIFT [facility] Last Admin: 06/19/22 01:01 Dose: Not Given Documented By: SIVAKUMAR Non-Admin Reason: IV Running Labs 06/19/22 06:25 06/19/22 06:25 Labs: Laboratory Results - last 24 hr 06/18/22 06/18/22 06/18/22 18:28 18:28 18:28 MCV 86.6 MCH 26.2 L MCHC 30.2 L RDW 15.8 Plt Count 294 MPV 10.5 Immature Gran % (Auto) 2.1 H Neut % (Auto) 66.5 Lymph % (Auto) 16.5 L Ness % (Auto) 12.9 H Eos % (Auto) 1.6 Baso % (Auto) 0.4 Lymph # (Auto) 1.8 Ness # (Auto) 1.4 H Eos # (Auto) 0.2 Baso # (Auto) 0.0 Abs Immat Gran (auto) 0.23 H Absolute Neuts (auto) 7.3 Absolute Nucleated RBC 0.000 Nucleated RBC % (auto) 0.0 PT 13.1 INR 1.1 Anion Gap 10 L Estim Creat Clear Calc 75.5 Estimated GFR > 60 Random Glucose 95 Calcium 8.6 Total Bilirubin 0.5 AST 20 ALT 18 Alkaline Phosphatase 98 Troponin I High Sens B-Natriuretic Peptide Total Protein 6.5 Albumin 3.4 L TSH 1.65 Urine Color Urine Appearance Urine pH Ur Specific [place] Urine Protein Urine Glucose (UA) Urine Ketones Urine Blood Urine Nitrite Ur Leukocyte Esterase Stool Occult Blood Ethyl Alcohol Blood Type Antibody Screen Crossmatch 06/18/22 06/18/22 06/18/22 18:28 18:28 18:28 MCV MCH MCHC RDW Plt Count MPV Immature Gran % (Auto) Neut % (Auto) Lymph % (Auto) Ness % (Auto) Eos % (Auto) Baso % (Auto) Lymph # (Auto) Ness # (Auto) Eos # (Auto) Baso # (Auto) Abs Immat Gran (auto) Absolute Neuts (auto) Absolute Nucleated RBC Nucleated RBC % (auto) PT INR Anion Gap Estim Creat Clear Calc Estimated GFR Random Glucose Calcium Total Bilirubin AST ALT Alkaline Phosphatase Troponin I High Sens 3.3 D B-Natriuretic Peptide 56 Total Protein Albumin TSH Urine Color Urine Appearance Urine pH Ur Specific [place] Urine Protein Urine Glucose (UA) Urine Ketones Urine Blood Urine Nitrite Ur Leukocyte Esterase Stool Occult Blood Ethyl Alcohol < 10 Blood Type Antibody Screen Crossmatch 06/18/22 06/18/22 06/18/22 18:35 20:00 20:34 MCV MCH MCHC RDW Plt Count MPV Immature Gran % (Auto) Neut % (Auto) Lymph % (Auto) Ness % (Auto) Eos % (Auto) Baso % (Auto) Lymph # (Auto) Ness # (Auto) Eos # (Auto) Baso # (Auto) Abs Immat Gran (auto) Absolute Neuts (auto) Absolute Nucleated RBC Nucleated RBC % (auto) PT INR Anion Gap Estim Creat Clear Calc Estimated GFR Random Glucose Calcium Total Bilirubin AST ALT Alkaline Phosphatase Troponin I High Sens B-Natriuretic Peptide Total Protein Albumin TSH Urine Color Yellow Urine Appearance Clear Urine pH 6.0 Ur Specific [place] <= 1.005 Urine Protein Negative Urine Glucose (UA) Negative Urine Ketones Negative Urine Blood Negative Urine Nitrite Negative Ur Leukocyte Esterase Negative Stool Occult Blood POSITIVE Ethyl Alcohol Blood Type A Positive Antibody Screen NEGATIVE Crossmatch See Detail 06/19/22 06/19/22 06:25 06:25 MCV 87.7 MCH 27.4 MCHC 31.2 RDW 15.9 Plt Count 277 MPV 10.7 Immature Gran % (Auto) 1.9 H Neut % (Auto) 64.8 Lymph % (Auto) 18.4 L Ness % (Auto) 12.8 H Eos % (Auto) 1.7 Baso % (Auto) 0.4 Lymph # (Auto) 2.1 Ness # (Auto) 1.5 H Eos # (Auto) 0.2 Baso # (Auto) 0.0 Abs Immat Gran (auto) 0.21 H Absolute Neuts (auto) 7.4 Absolute Nucleated RBC 0.000 Nucleated RBC % (auto) 0.0 PT INR Anion Gap 10 L Estim Creat Clear Calc 66.3 Estimated GFR > 60 Random Glucose 91 Calcium 8.7 Total Bilirubin AST ALT Alkaline Phosphatase Troponin I High Sens B-Natriuretic Peptide Total Protein Albumin TSH Urine Color Urine Appearance Urine pH Ur Specific [place] Urine Protein Urine Glucose (UA) Urine Ketones Urine Blood Urine Nitrite Ur Leukocyte Esterase Stool Occult Blood Ethyl Alcohol Blood Type Antibody Screen Crossmatch Assessment and Plan (1) Acute on chronic anemia: Status: Acute Plan 76-year-old male with past medical history of AFib on anticoagulation, hypertension, presents to the hospital with complaints of dizziness, found to have multiple abnormalities SSS dissiness associated with multiple episodes of pauses on telemetry, some over 8 seconds No AV block on EKG discussed with cardiology>plan for pacer, Dr. 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 Kapadia Full code continue hospital stay for acute anemia, afib rvr and SSS likely requiring pacer placement and close cardiac monitoring Time Spent With Patient Time: Total time managing care of this patient today ____ minutes. Quality Stroke Does the patient have a stroke diagnosis?: No VTE Prior VTE?: No VTE Risk Level:: Medical - moderate - high VTE Device Contraindication: N/A - Device Ordered VTE Drug Contraindication: Treatment Not Indicated
--- NOTE | 2022-06-19 10:08 | PHA.MEDREC ---
Pharmacy Consult ? Medication Reconciliation Pharmacy has completed the medication reconciliation. Pharmacy has reviewed med rec done by overnight nurse
--- NOTE | 2022-06-19 10:34 | PM.CNCAR ---
History of Present Illness History of Present Illness Date of Service: 06/19/22 Chief complaint: Symptomatic anemia, a. fib w rvr, GI bleed Narrative: This is a cardiology consultation regarding atrial fibrillation as well as pauses. Patient was recently seen in the hospital consultation few weeks back. At that time, he was placed on beta-blockers and Eliquis and aspirin was stopped. He was then discharged home. Current admission is for feeling dizzy. He states that he has been feeling intermittently dizzy and feels as though his vision is blurry as well. These last for several seconds at a time. Apparently has had in the past but not to frequent but now much more bothersome. Also duration is longer recently than in the past. This led to the current hospitalization. In the actual H and P there is not a clear documentation av as to the pauses but when I reviewed the strips, these are fairly long and last for several seconds. And these happen primarily the time of conversion from atrial fibrillation to sinus. By my own measurement, seems to be more than 8 seconds. Cannot see the last QRS complex as the strip ends. Hence the actual duration is not clear. Review of Systems Review of Systems: Yes all other systems are reviewed and are negative Constitutional: Constitutional: Reports as per HPI and Reports no additional constitutional complaints Eyes: Eyes: Reports as per HPI and Denies no additional eye complaints ENT: Denies system reviewed and no additional complaints, except as documented and Reports as per HPI Cardiovascular: Cardiovascular: Reports as per HPI, Reports no additional cardiovascular complaints, Denies acrocyanosis, Denies cool extremities, Denies chest pain, Denies leg edema, Denies lightheadedness, Denies palpitations and Denies dyspnea Respiratory: Respiratory: Reports as per HPI, Denies no additional respiratory complaints and Denies dyspnea Gastrointestinal: Gastrointestinal: Reports as per HPI and Denies no additional gastrointestinal complaints Genitourinary: Genitourinary: Reports no additional male genitourinary complaints and Reports as per HPI Musculoskeletal: Musculoskeletal: Reports no additional musculoskeletal complaints and Reports as per HPI Integumentary/Breasts: Skin/Breast: Reports system reviewed and no additional complaints, except as docu Neurologic: Reports system reviewed and no additional complaints, except as documented and Reports as per HPI Psychiatric: Psychiatric: Reports no additional psychiatric complaints and Reports as per HPI Endocrine: Endocrine: Reports no additional endocrine complaints, Reports as per HPI and Denies palpitations Hematologic/Lymphatic: Hematologic/Lymphatic: Reports no additional hematologic/lymphatic complaints and Reports as per HPI Allergic/Immunologic: Allergic/Immunologic: Reports no additional allergic/immunologic complaints and Reports as per HPI [facility] Past Medical History Medical History Atrial fibrillation Borderline hyperlipidemia EtOH dependence High cholesterol HTN (hypertension) Hypertension Inhibited sex excitement Mild cognitive impairment OA (osteoarthritis) Obesity Family History Family History Mother Heart problem Social History Social History Household Members: Spouse Housing: House Do you presently have visiting nurse or other home services: No Alcohol intake: current Alcohol intake frequency: does not drink Alcohol type: beer Patient Tobacco Use Status: Never used Tobacco service: Yes Current occupational status: [employer] Allergies Allergy/AdvReac Type Severity Reaction Status Date / Time No Known Allergies [NKA] Allergy Mild NOT Verified 06/18/22 18:04 APPLICABLE Active Medications: Current Medications Acetaminophen (Acetaminophen 325 Mg Tablet) 650 mg PO Q6H PRN PRN Reason: Pain, Mild (Pain Scale 1-3) Docusate Sodium (Docusate Sodium 100 Mg Capsule) 100 mg PO DAILY PRN PRN Reason: Constipation Lisinopril (Lisinopril 20 Mg Tablet) 20 mg PO DAILY [facility]; Protocol Ondansetron HCl (Ondansetron Hcl 4 Mg/2 Ml Vial) 4 mg IVPUSH Q8H PRN PRN Reason: Nausea and Vomiting Pantoprazole Sodium (Pantoprazole Sodium 40 Mg/10 Ml Vial) 40 mg IVPUSH BID@0630,1630 [facility] Last Admin: 06/18/22 21:16 Dose: 40 mg Pharmacy Consult (Consult Rx Perform Med Rec) 1 each MISCELLANE ONCE PRN PRN Reason: Consult order Sodium Chloride (0.9 % Sodium Chloride Flush 3 Ml Syringe) 3 ml IVFLUSH QSHIFT [facility] Last Admin: 06/19/22 01:01 Dose: Not Given Home Medications Medication Instructions Recorded Confirmed Last Taken Type aspirin 81 mg tablet,delayed 81 mg PO DAILY 06/19/22 06/19/22 06/18/22 History release Physical Exam Vital Signs: Vital Signs: Last Vital Signs Temp 97.6 F 06/19/22 09:00 Pulse 60 06/19/22 09:00 Resp 20 06/19/22 09:00 BP 145/68 H 06/19/22 09:00 Pulse Ox 96 06/19/22 09:00 O2 Del Method Room Air 06/19/22 09:00 BMI result Body Mass Index 28.3 Const: General: comfortable and no acute distress Orientation/consciousness: patient oriented x3 HEENT: Other: Unremarkable Head: Yes normal to inspection Neck: Neck: Yes normal visual inspection Chest: Chest palpation & inspection: normal inspection of the chest Resp: Auscultation: clear to auscultation bilaterally Cardio: Palpation: normal PMI Heart sounds: S1 normal heart sound present, S2 normal heart sound present, no gallops, no murmurs and no rubs GI: Palpation (GI): Soft to palpation Back/Spine/Pelvis: Other: unremarkable Skin: General skin exam: no rashes or lesions noted Neuro: General: patient oriented x3 Extrem: General: Yes normal to inspection Psych: Mental Status: mental status grossly normal Objective Labs and Meds 06/19/22 06:25 06/19/22 06:25 Lab results: Laboratory Results - last 24 hr 06/18/22 06/18/22 06/18/22 18:28 18:28 18:28 WBC 11.0 H RBC 3.21 L D Hgb 8.4 L D Hct 27.8 L D MCV 86.6 MCH 26.2 L MCHC 30.2 L RDW 15.8 Plt Count 294 MPV 10.5 Immature Gran % (Auto) 2.1 H Neut % (Auto) 66.5 Lymph % (Auto) 16.5 L [place] % (Auto) 12.9 H Eos % (Auto) 1.6 Baso % (Auto) 0.4 Lymph # (Auto) 1.8 [place] # (Auto) 1.4 H Eos # (Auto) 0.2 Baso # (Auto) 0.0 Abs Immat Gran (auto) 0.23 H Absolute Neuts (auto) 7.3 Absolute Nucleated RBC 0.000 Nucleated RBC % (auto) 0.0 PT 13.1 INR 1.1 Sodium 134 L Potassium 4.9 Chloride 103 Carbon Dioxide 26 Anion Gap 10 L BUN 13 Creatinine 0.94 Estim Creat Clear Calc 75.5 Estimated GFR > 60 Random Glucose 95 Calcium 8.6 Total Bilirubin 0.5 AST 20 ALT 18 Alkaline Phosphatase 98 Troponin I High Sens B-Natriuretic Peptide Total Protein 6.5 Albumin 3.4 L TSH 1.65 Urine Color Urine Appearance Urine pH Ur Specific [place] Urine Protein Urine Glucose (UA) Urine Ketones Urine Blood Urine Nitrite Ur Leukocyte Esterase Stool Occult Blood Ethyl Alcohol Blood Type Antibody Screen Crossmatch 06/18/22 06/18/22 06/18/22 18:28 18:28 18:28 WBC RBC Hgb Hct MCV MCH MCHC RDW Plt Count MPV Immature Gran % (Auto) Neut % (Auto) Lymph % (Auto) [place] % (Auto) Eos % (Auto) Baso % (Auto) Lymph # (Auto) [place] # (Auto) Eos # (Auto) Baso # (Auto) Abs Immat Gran (auto) Absolute Neuts (auto) Absolute Nucleated RBC Nucleated RBC % (auto) PT INR Sodium Potassium Chloride Carbon Dioxide Anion Gap BUN Creatinine Estim Creat Clear Calc Estimated GFR Random Glucose Calcium Total Bilirubin AST ALT Alkaline Phosphatase Troponin I High Sens 3.3 D B-Natriuretic Peptide 56 Total Protein Albumin TSH Urine Color Urine Appearance Urine pH Ur Specific [place] Urine Protein Urine Glucose (UA) Urine Ketones Urine Blood Urine Nitrite Ur Leukocyte Esterase Stool Occult Blood Ethyl Alcohol < 10 Blood Type Antibody Screen Crossmatch 06/18/22 06/18/22 06/18/22 18:35 20:00 20:34 WBC RBC Hgb Hct MCV MCH MCHC RDW Plt Count MPV Immature Gran % (Auto) Neut % (Auto) Lymph % (Auto) [place] % (Auto) Eos % (Auto) Baso % (Auto) Lymph # (Auto) [place] # (Auto) Eos # (Auto) Baso # (Auto) Abs Immat Gran (auto) Absolute Neuts (auto) Absolute Nucleated RBC Nucleated RBC % (auto) PT INR Sodium Potassium Chloride Carbon Dioxide Anion Gap BUN Creatinine Estim Creat Clear Calc Estimated GFR Random Glucose Calcium Total Bilirubin AST ALT Alkaline Phosphatase Troponin I High Sens B-Natriuretic Peptide Total Protein Albumin TSH Urine Color Yellow Urine Appearance Clear Urine pH 6.0 Ur Specific [place] <= 1.005 Urine Protein Negative Urine Glucose (UA) Negative Urine Ketones Negative Urine Blood Negative Urine Nitrite Negative Ur Leukocyte Esterase Negative Stool Occult Blood POSITIVE Ethyl Alcohol Blood Type A Positive Antibody Screen NEGATIVE Crossmatch See Detail 06/19/22 06/19/22 06:25 06:25 WBC 11.3 H RBC 3.25 L Hgb 8.9 L Hct 28.5 L MCV 87.7 MCH 27.4 MCHC 31.2 RDW 15.9 Plt Count 277 MPV 10.7 Immature Gran % (Auto) 1.9 H Neut % (Auto) 64.8 Lymph % (Auto) 18.4 L [place] % (Auto) 12.8 H Eos % (Auto) 1.7 Baso % (Auto) 0.4 Lymph # (Auto) 2.1 Pender # (Auto) 1.5 H Eos # (Auto) 0.2 Baso # (Auto) 0.0 Abs Immat Gran (auto) 0.21 H Absolute Neuts (auto) 7.4 Absolute Nucleated RBC 0.000 Nucleated RBC % (auto) 0.0 PT INR Sodium 136 Potassium 4.9 Chloride 104 Carbon Dioxide 27 Anion Gap 10 L BUN 13 Creatinine 1.07 Estim Creat Clear Calc 66.3 Estimated GFR > 60 Random Glucose 91 Calcium 8.7 Total Bilirubin AST ALT Alkaline Phosphatase Troponin I High Sens B-Natriuretic Peptide Total Protein Albumin TSH Urine Color Urine Appearance Urine pH Ur Specific [place] Urine Protein Urine Glucose (UA) Urine Ketones Urine Blood Urine Nitrite Ur Leukocyte Esterase Stool Occult Blood Ethyl Alcohol Blood Type Antibody Screen Crossmatch ECG Interpretation: EKGs as well as available telemetry strips reviewed. Initial EKG shows atrial fibrillation rate of 107/Min. Others strips from telemetry show sinus rhythm. In some strips, there is atrial fibrillation with rapid rate followed by very long pauses- about 7-8sec +. Imaging Radiologist's impression: Impressions Chest X-Ray 06/18/22 18:35 IMPRESSION: Unremarkable examination. Abdomen/Pelvis CT 06/18/22 21:15 IMPRESSION: 1. No acute findings identified in the abdomen/pelvis. Colonic diverticulosis without diverticulitis. 2. Cholelithiasis. 3. Redemonstrated cystic structure versus dilated segment of pancreatic duct in the head and proximal body of the pancreas, without significant change. As previously noted, this may be better assessed with MRI/MRCP. 4. Redemonstrated small left renal lesion, not definitively cystic. Solid mass cannot be excluded. As previously noted, this would be better evaluated with renal protocol MRI. Assessment and Plan (1) Atrial fibrillation with rapid ventricular response: Status: Acute (2) Sick sinus syndrome: Status: Acute (3) Anemia: Status: Acute Plan Atrial fibrillation and rapid rate with recurrent pauses exceeding 8 seconds with symptomatic dizziness/visual blurring. Based on the above, recommend permanent pacemaker implantation. Once this is completed, can resume the dose of metoprolol that he takes at home. If the blood pressure is still running high, then we can probably add diltiazem as well. Discussed with Nathalia Dawn hold communicate with the thoracic surgeon. With regard to the anemia, not clear why this is happening. Will need to probably get GI involved as he may need endoscopy/colonoscopy and further evaluation. Time Spent With Patient Time: Total time managing care of this patient today 75 minutes. This includes time spent in review of chart, laboratory data, imaging studies, review of telemetry, counseling patient, discussion with hospitalist, RN, documentation, coordination of care. Procedures Date of Service Date of Service: 06/19/22
[2022-06-19] MEDS: Pantoprazole Sodium 40 MG/10 ML VIAL IVPUSH ×2 (10:53→17:22)
[2022-06-19] MEDS: lisinopriL 20 MG TABLET PO (10:53)
[2022-06-19] MEDS: 0.9 % Sodium Chloride Flush 3 ML SYRINGE IVFLUSH ×3 (10:55→19:47)
--- NOTE | 2022-06-19 12:37 | P.CNGI_ITS ---
History of Present Illness Data of Consult Service Date: 06/19/22 Requesting physician: Nathalia Dawn Primary Care Provider: Dayana Nolan HPI Reason for consult: anemia 76-year-old male with past medical history of AFib on Eliquis, HTN, history of alcohol abuse and kidney mass who I am seeing for assessment for anemia. Patient presented with dizziness-worse on exertion but no other complaints of shortness of breath, no chest pain, no palpitations. Hed id notice some fresh b lood on and off in stools attributed to hemorrhoids. denies using any aspirin, no NSAIDs.? Reports no abdominal pain, no nausea or vomiting, no diarrhea-no melena, no nose bleeds Lab: WBC count of 11, hemoglobin of 8.4 which dropped from 11.5 on 05/10, hematocrit 27.8, sodium 134, BNP of 56, troponin of 3.3, TSH of 1.65 UA negative, stool occult blood positive, \ Imaging: no acute findings in the abdomen and pelvis, diverticulosis with no diverticulitis, cholelithiasis, cystic structure versus dilated segment of pancreatic duct in the head and proximal body of the pancreas which was seen on previous imaging as well as a left renal cyst lesion He did have pauses on monitor and concern for SSS, awaiting in patient pacemaker placement. Review of Systems Review of Systems: Constitutional : No Weight loss, No Fever, No Chills ENT/Mouth : No sore throat, No Rhinorrhea Eyes: No Swelling, No Redness Cardiovascular : No Chest Pain, No SOB, No Edema Respiratory : No Cough, No Sputum, No Wheezing Gastrointestinal : see HPI Genitourinary : NO Dysuria, No Urinary Frequency, No Hematuria, No Urgency Musculoskeletal : No joint pain, No Myalgias, No Joint Swelling Skin : No Skin Lesions, No rash Neuro : No Weakness, No Numbness, No Dizziness, No Headache Psych : No Anxiety/Panic, No Depression Heme/Lymph: No Bruising, No Lymphadenopathy Endocrine : No Polyuria, No Polydipsia All other systems reviewed and are negative. [facility] Past Medical History Medical History Atrial fibrillation Borderline hyperlipidemia EtOH dependence High cholesterol HTN (hypertension) Hypertension Inhibited sex excitement Mild cognitive impairment OA (osteoarthritis) Obesity Family History Family History Mother Heart problem Social History Social History Household Members: Spouse Housing: House Do you presently have visiting nurse or other home services: No Alcohol intake: current Alcohol intake frequency: does not drink Alcohol type: beer Patient Tobacco Use Status: Never used Tobacco service: Yes Current occupational status: retired Meds Allergies Allergy/AdvReac Type Severity Reaction Status Date / Time No Known Allergies [NKA] Allergy Mild NOT Verified 06/18/22 18:04 APPLICABLE Active Medications: Current Medications Acetaminophen (Acetaminophen 325 Mg Tablet) 650 mg PO Q6H PRN PRN Reason: Pain, Mild (Pain Scale 1-3) Docusate Sodium (Docusate Sodium 100 Mg Capsule) 100 mg PO DAILY PRN PRN Reason: Constipation Lisinopril (Lisinopril 20 Mg Tablet) 20 mg PO DAILY [facility]; Protocol Last Admin: 06/19/22 10:53 Dose: 20 mg Ondansetron HCl (Ondansetron Hcl 4 Mg/2 Ml Vial) 4 mg IVPUSH Q8H PRN PRN Reason: Nausea and Vomiting Pantoprazole Sodium (Pantoprazole Sodium 40 Mg/10 Ml Vial) 40 mg IVPUSH BID@0630,1630 [facility] Last Admin: 06/19/22 10:53 Dose: 40 mg Pharmacy Consult (Consult Rx Perform Med Rec) 1 each MISCELLANE ONCE PRN PRN Reason: Consult order Sodium Chloride (0.9 % Sodium Chloride Flush 3 Ml Syringe) 3 ml IVFLUSH QSHIFT [facility] Last Admin: 06/19/22 10:55 Dose: 3 ml Home Medications Medication Instructions Recorded Confirmed Last Taken Type aspirin 81 mg tablet,delayed 81 mg PO DAILY 06/19/22 06/19/22 06/18/22 History release Physical Exam Vital Signs: Vital Signs: Last Vital Signs Temp 98.4 F 06/19/22 12:00 Pulse 64 06/19/22 12:00 Resp 20 06/19/22 12:00 BP 134/64 06/19/22 12:00 Pulse Ox 97 06/19/22 12:00 O2 Del Method Room Air 06/19/22 12:00 BMI result Body Mass Index 28.3 EXAM: GENERAL: The patient is well developed and nontoxic. VITAL SIGNS:see workflow HEENT: Nonicteric sclerae, PERRLA, EOMI. Oropharynx clear. Moist mucous membranes. Conjunctivae appear well perfused. No thyroid mass. CHEST: Chest wall is nontender. HEART: Regular rate and rhythm without murmurs. LUNGS: Clear to auscultation bilaterally. ABDOMEN: Soft, positive bowel sounds, nontender, no organomegaly.no flank tenderness SKIN: No rash, no excessive bruising, petechiae, or purpura. NEUROLOGIC: Cranial nerves II-XII intact without motor/sensory deficit. Psych: Appearance: grossly normal Results Labs 06/19/22 06:25 06/19/22 06:25 Labs: Short CBC 06/18/22 06/19/22 Range/Units 18:28 06:25 WBC 11.0 H 11.3 H (4.8-10.8) X10*3/uL Hgb 8.4 L D 8.9 L (14.0-18.0) g/dl Hct 27.8 L D 28.5 L (42.0-52.0) % Plt Count 294 277 (160-400) X10*3/uL BMP 06/18/22 06/19/22 18:28 06:25 Sodium 134 L 136 Potassium 4.9 4.9 Chloride 103 104 Carbon Dioxide 26 27 BUN 13 13 Creatinine 0.94 1.07 Calcium 8.6 8.7 Liver Function 06/18/22 Range/Units 18:28 Total Bilirubin 0.5 (0.0-1.0) mg/dL AST 20 (5-37) U/L ALT 18 (0-40) U/L Alkaline Phosphatase 98 (39-117) U/L Albumin 3.4 L (3.5-5.0) g/dL Urine 06/18/22 Range/Units 18:35 Urine Color Yellow Urine Appearance Clear Urine pH 6.0 (5.0-9.0) Ur Specific [place] <= 1.005 (1.005-1.025) Urine Protein Negative (Neg-Trace) mg/dL Urine Glucose (UA) Negative (Negative) mg/dL Assessment and Plan (1) Acute on chronic anemia: Status: Acute Plan 1/ Acute on chronic anemia on eliquis with some rectal bleeding noted recently, ddx: hemorhroidal, upper GI source, proctitits, neoplasia or mets PLAN: 1/ he si getting pacemaker for the SSS, can plan EGd,colo thereafter 2/ can start low dose PPI meantime, monitor HGB and transfuse if <7 g/dl Time Spent With Patient Time: Total time managing care of this patient today ____ minutes. Procedures Date of Service Date of Service: 06/19/22
--- NOTE | 2022-06-19 13:53 | HO.ANESPROP2 ---
HPI - Anesthesia Eval Consult details Narrative: 76yo male patient with Sick Sinus Syndrome. For dual chamber pacemaker [facility] Active Problems Active Problems: All Active Problems (Updated 06/19/22 @ 13:55 by Miley Her MD) Acute on chronic anemia (Acute)- Seen by Dr Lara. Planned EGD/ Colonoscopy after pacemaker insertion Normocytic anemia (Acute). S/p transfusion of 1unit PRBC yesterday evening 06/18/22 for H/H 8.4/27.8. H/H today 06/19 23 8.9/28.5 Dizziness (Acute) Sick sinus syndrome (Acute) Sinus bradycardia (Acute) GI bleed (Acute) Chronic anticoagulation (Acute) Anemia (Acute) Atrial fibrillation with rapid ventricular response (Acute). Started on eliquis 05/04. Last dose 06/18/22 a.m. EKG today 06/19 SR 76 Cancer of kidney (Acute) H/o ETOH dependece. Denies ETOH in last 3 months Left renal mass Past Medical History Medical History Atrial fibrillation Borderline hyperlipidemia EtOH dependence High cholesterol HTN (hypertension) Hypertension Inhibited sex excitement Mild cognitive impairment OA (osteoarthritis) Obesity Family History Family History Mother Heart problem Family history of problems with anesthesia: No Surgical History History of Problems with Anesthesia: No Social History Social History Household Members: Spouse Housing: House Do you presently have visiting nurse or other home services: No Alcohol intake: current Alcohol intake frequency: former alcohol drinker Alcohol type: beer Patient Tobacco Use Status: Former Tobacco user service: Yes Current occupational status: retired Meds Allergies Allergy/AdvReac Type Severity Reaction Status Date / Time No Known Allergies [NKA] Allergy Mild NOT Verified 06/18/22 18:04 APPLICABLE Active Medications: Current Medications Acetaminophen (Acetaminophen 325 Mg Tablet) 650 mg PO Q6H PRN PRN Reason: Pain, Mild (Pain Scale 1-3) Docusate Sodium (Docusate Sodium 100 Mg Capsule) 100 mg PO DAILY PRN PRN Reason: Constipation Lisinopril (Lisinopril 20 Mg Tablet) 20 mg PO DAILY [facility]; Protocol Last Admin: 06/19/22 10:53 Dose: 20 mg Ondansetron HCl (Ondansetron Hcl 4 Mg/2 Ml Vial) 4 mg IVPUSH Q8H PRN PRN Reason: Nausea and Vomiting Pantoprazole Sodium (Pantoprazole Sodium 40 Mg/10 Ml Vial) 40 mg IVPUSH BID@0630,1630 [facility] Last Admin: 06/19/22 10:53 Dose: 40 mg Pharmacy Consult (Consult Rx Perform Med Rec) 1 each MISCELLANE ONCE PRN PRN Reason: Consult order Sodium Chloride (0.9 % Sodium Chloride Flush 3 Ml Syringe) 3 ml IVFLUSH QSHIFT [facility] Last Admin: 06/19/22 10:55 Dose: 3 ml Home Medications Medication Instructions Recorded Confirmed Last Taken Type aspirin 81 mg tablet,delayed 81 mg PO DAILY 06/19/22 06/19/22 06/18/22 History release Exam Exam Date and Time: June 19, 2022 1353 Height,Weight and Vital Signs: Height 5 ft 9 in Weight 86.8 kg Last Vital Signs Temp 98.4 F 06/19/22 12:00 Pulse 64 06/19/22 12:00 Resp 20 06/19/22 12:00 BP 134/64 06/19/22 12:00 Pulse Ox 97 06/19/22 12:00 O2 Del Method Room Air 06/19/22 12:00 Vital Signs Temp Pulse Resp BP Pulse Ox O2 Del Method 06/19/22 14:15 97.9 F 76 18 146/77 H 98 Room Air 06/19/22 12:00 98.4 F 64 20 134/64 97 Room Air 06/19/22 09:00 97.6 F 60 20 145/68 H 96 Room Air 06/19/22 07:00 57 15 150/58 H 98 Room Air 06/19/22 01:27 98.6 F 64 15 133/70 06/18/22 21:59 98.4 F 62 16 130/67 06/18/22 21:51 98.5 F 58 12 119/65 06/18/22 21:34 98.4 F 117 H 12 149/72 H 06/18/22 21:04 98.4 F 111 H 16 139/90 H 97 Room Air 06/18/22 19:17 98.5 F 97 16 127/71 96 Room Air 06/18/22 17:58 98.5 F 95 17 144/79 H 97 Room Air Pertinent Lab Results Pertinent Lab Results: Laboratory Tests 06/18/22 06/18/22 06/18/22 18:28 18:28 18:28 WBC 11.0 H RBC 3.21 L D Hgb 8.4 L D Hct 27.8 L D MCV 86.6 MCH 26.2 L MCHC 30.2 L RDW 15.8 Plt Count 294 MPV 10.5 Immature Gran % (Auto) 2.1 H Neut % (Auto) 66.5 Lymph % (Auto) 16.5 L [place] % (Auto) 12.9 H Eos % (Auto) 1.6 Baso % (Auto) 0.4 Lymph # (Auto) 1.8 [place] # (Auto) 1.4 H Eos # (Auto) 0.2 Baso # (Auto) 0.0 Abs Immat Gran (auto) 0.23 H Absolute Neuts (auto) 7.3 Absolute Nucleated RBC 0.000 Nucleated RBC % (auto) 0.0 PT 13.1 INR 1.1 Sodium 134 L Potassium 4.9 Chloride 103 Carbon Dioxide 26 Anion Gap 10 L BUN 13 Creatinine 0.94 Estim Creat Clear Calc 75.5 Estimated GFR > 60 Random Glucose 95 Calcium 8.6 Total Bilirubin 0.5 AST 20 ALT 18 Alkaline Phosphatase 98 Troponin I High Sens B-Natriuretic Peptide Total Protein 6.5 Albumin 3.4 L TSH 1.65 Urine Color Urine Appearance Urine pH Ur Specific [place] Urine Protein Urine Glucose (UA) Urine Ketones Urine Blood Urine Nitrite Ur Leukocyte Esterase Stool Occult Blood Ethyl Alcohol Blood Type Antibody Screen Crossmatch 06/18/22 06/18/22 06/18/22 18:28 18:28 18:28 WBC RBC Hgb Hct MCV MCH MCHC RDW Plt Count MPV Immature Gran % (Auto) Neut % (Auto) Lymph % (Auto) [place] % (Auto) Eos % (Auto) Baso % (Auto) Lymph # (Auto) [place] # (Auto) Eos # (Auto) Baso # (Auto) Abs Immat Gran (auto) Absolute Neuts (auto) Absolute Nucleated RBC Nucleated RBC % (auto) PT INR Sodium Potassium Chloride Carbon Dioxide Anion Gap BUN Creatinine Estim Creat Clear Calc Estimated GFR Random Glucose Calcium Total Bilirubin AST ALT Alkaline Phosphatase Troponin I High Sens 3.3 D B-Natriuretic Peptide 56 Total Protein Albumin TSH Urine Color Urine Appearance Urine pH Ur Specific [place] Urine Protein Urine Glucose (UA) Urine Ketones Urine Blood Urine Nitrite Ur Leukocyte Esterase Stool Occult Blood Ethyl Alcohol < 10 Blood Type Antibody Screen Crossmatch 06/18/22 06/18/22 06/18/22 18:35 20:00 20:34 WBC RBC Hgb Hct MCV MCH MCHC RDW Plt Count MPV Immature Gran % (Auto) Neut % (Auto) Lymph % (Auto) [place] % (Auto) Eos % (Auto) Baso % (Auto) Lymph # (Auto) [place] # (Auto) Eos # (Auto) Baso # (Auto) Abs Immat Gran (auto) Absolute Neuts (auto) Absolute Nucleated RBC Nucleated RBC % (auto) PT INR Sodium Potassium Chloride Carbon Dioxide Anion Gap BUN Creatinine Estim Creat Clear Calc Estimated GFR Random Glucose Calcium Total Bilirubin AST ALT Alkaline Phosphatase Troponin I High Sens B-Natriuretic Peptide Total Protein Albumin TSH Urine Color Yellow Urine Appearance Clear Urine pH 6.0 Ur Specific [place] <= 1.005 Urine Protein Negative Urine Glucose (UA) Negative Urine Ketones Negative Urine Blood Negative Urine Nitrite Negative Ur Leukocyte Esterase Negative Stool Occult Blood POSITIVE Ethyl Alcohol Blood Type A Positive Antibody Screen NEGATIVE Crossmatch See Detail 06/19/22 06/19/22 06:25 06:25 WBC 11.3 H RBC 3.25 L Hgb 8.9 L Hct 28.5 L MCV 87.7 MCH 27.4 MCHC 31.2 RDW 15.9 Plt Count 277 MPV 10.7 Immature Gran % (Auto) 1.9 H Neut % (Auto) 64.8 Lymph % (Auto) 18.4 L [place] % (Auto) 12.8 H Eos % (Auto) 1.7 Baso % (Auto) 0.4 Lymph # (Auto) 2.1 [place] # (Auto) 1.5 H Eos # (Auto) 0.2 Baso # (Auto) 0.0 Abs Immat Gran (auto) 0.21 H Absolute Neuts (auto) 7.4 Absolute Nucleated RBC 0.000 Nucleated RBC % (auto) 0.0 PT INR Sodium 136 Potassium 4.9 Chloride 104 Carbon Dioxide 27 Anion Gap 10 L BUN 13 Creatinine 1.07 Estim Creat Clear Calc 66.3 Estimated GFR > 60 Random Glucose 91 Calcium 8.7 Total Bilirubin AST ALT Alkaline Phosphatase Troponin I High Sens B-Natriuretic Peptide Total Protein Albumin TSH Urine Color Urine Appearance Urine pH Ur Specific [place] Urine Protein Urine Glucose (UA) Urine Ketones Urine Blood Urine Nitrite Ur Leukocyte Esterase Stool Occult Blood Ethyl Alcohol Blood Type Antibody Screen Crossmatch Narrative Narrative: Date of Service: 06/18/22 Procedure(s): ECG 12 lead EKG Test Reason : change of rythm Vent. Rate : 057 BPM ? ? Atrial Rate : 057 BPM ?? P-R Int : 146 ms? QRS Dur : 088 ms ? ? QT Int : 416 ms ? ? ? P-R-T Axes : 059 023 043 degrees ?? QTc Int : 404 ms ? Sinus bradycardia Otherwise normal ECG When compared with ECG of 18-JUN-2022 18:03, Sinus rhythm has replaced Atrial fibrillation Vent. rate has decreased BY? 50 BPM Procedure Date:? 06/19/2022 Procedure Type:? Transthoracic Echocardiogram [place] [facility] [place]:? 175.26 cm? Weight: ? 90.27 kg BSA: ? 2.06 m2? Heart Rate:? ? ? bpm BP:? 150 / 58 mmHg Symptoms:? a fib w rvr, pauses Study Quality: ? Fair ECG Rhythm:? ? ? Sinus ?? ? Conclusions: - The left ventricular systolic function is normal.? The ? calculated ejection fraction is 63% by biplane method. ? - There is mildly increased left ventricular wall thickness. ? ? - No obvious valvular pathology seen on this study.? Findings Left Ventricle Normal left ventricular cavity size.? There is mildly increased left ventricular wall thickness.? The left ventricular systolic function is normal.? The calculated ejection fraction is 63% by biplane method.? There is no evidence of regional wall motion abnormalities.? Diastolic function is normal for age. Right Ventricle Normal right ventricular cavity size and systolic function. Atria Both atria are normal in size. Aortic Valve There is a normal trileaflet aortic valve.? There is mild calcification of the aortic valve.? There is no aortic valve stenosis.? There is no aortic valve regurgitation. Mitral Valve There is mild anterior mitral leaflet thickening. There is no mitral valve regurgitation.? There is no mitral valve stenosis. Pulmonic Valve The pulmonic valve is likely normal. Tricuspid Valve There is trace tricuspid valve regurgitation.? There is no evidence of pulmonary hypertension. Great Vessels The asc aorta is normal in size. Venous The inferior vena cava is normal in size and collapses greater than 50% with inspiration. Pericardium/Pleural There is a trivial pericardial effusion. Prior Study Comparison No significant change compared to prior study dated:? 05/10/2022. Recommendations, Care & Conclusions No obvious valvular pathology seen on this study. ? Airway Mallampati Class: II TM Dist: >3cm Neck ROM: Full Denture: Upper and Lower Loose/Missing/Broken Teeth: Yes Heart: RRR Lungs: CTAB Assessment and Plan Assessment Anesthesia Assessment: Anesthesia Plan Discussed and Chart Reviewed Final Anesthetic Review Family History of Problems with Anesthesia: No History of Problems with Anesthesia: No NPO: Yes ASA Class: III and Emergency Final Preanesthetic Review: No Changes in Pt Med Stat, Meds/Allgs Chart Reviewed, Consent Obtained/Reviewed and Anes Risks/Benef Reviewed Patient Risk: Intermediate Procedure Risk: Intermediate Assessment/Block/Sedation in SS: Assess/Block/Sedation-SS Anesthetic Plan Anesthetic Plan: MAC: Disposition: Standard PACU and Inp. Admit - [facility]
--- NOTE | 2022-06-19 16:34 | P.OP_ITS ---
Operative Note Operative Note Date of Service: 06/19/22 Narrative: Preoperative diagnosis: [] Sick sinus syndrome Postop diagnosis: [] Same Procedure [] dual-chamber permanent pacemaker placement with fluoroscopy Surgeon: [] Nathaniel Fire Extinguisher Sprinkler Inspector: [] Type of Anesthesia: [] MAC Indication for surgery: [] Sick sinus syndrome. For specifics of sensing and capture, please refer to [facility] David worksheet. Findings: [] Patient brought to the operating room, placed on operative table s upine position, after adequate level of MAC anesthesia was induced, a shoulder roll was placed, the patient was positioned in the Trendelenburg position. Right arm was pulled inferiorly, after prep/drape and local infiltration, the right subclavian vein was uneventfully cannulated using Seldinger technique and a wire advanced to the level of the superior vena cava under fluoroscopic guidance. A pocket was fashioned using scalpel followed by Bovie at the cannulation site. Dilating sheath was then placed over the wire , which was retained , under fluoroscopic guidance. Ventricular lead was advanced and placed with good sensing and capture and screwed in uneventfully.. Dilating sheath was uneventfully removed with wire retained. Lead was secured using 2 2- 0 silk sutures to the flange. Over the retained wire, a 2nd dilating sheath was placed again on fluoroscopic guidance and a wire retrieved. Atrial lead was then advanced under fluoroscopic guidance with good positioning and good sensing and capture and uneventfully screwed in. Peel-away sheath was removed. Atrial lead was also secured using 2 2-0 silk sutures to the flange. Both leads were recheck with good sensing and capture. The lead were then connected to generator in appropriate positions and tugged and were found to be secure and generator then placed in the pocket. Wound was irrigated, secured for hemostasis and closed using interrupted inverted dermal 3-0 Vicryl sutures followed by Steri-Strips and sterile dressings. Right upper extremity was then placed in a sling. Pacemaker is once again interrogated prior to completion and good sensing and capture were maintained. Sponge, needle, and instrument counts reported correct. Patient tolerated the procedure well emerge from anesthesia in stable condition. A completion the procedure, intraoperative fluoroscopic chest x-ray was taken with leads in good position and no evidence of pneumothorax. EBL minimal
[2022-06-20 04:00] VITALS: BP 141/89; PULSE 108; RESP 18; TEMP 37.1; O2SAT 97
[2022-06-20 05:00] LABS: MANUAL DIFF FLAG NO
[2022-06-20 05:05] LABS: Basophils Percent Auto 0.2 % (0-2); Hematocrit 26.2 % (42.0-52.0); Hemoglobin 8.2 g/dl (14.0-18.0); Imm Gran Abs Auto 0.14 X10*3/uL (0.00-0.03); Imm Gran Pct Auto 1.7 % (0.0-0.4); Lymphocytes Absolute Auto 1.1 X10*3/uL (1.2-4.9); Lymphocytes Percent Auto 13.3 % (20-40); Mean Corpuscular HGB Conc 31.3 g/dl (31.0-36.0); Mean Corpuscular Hemoglobin 27.2 pg (27.0-33.0); Mean Platelet Volume 10.7 fL (9.4-12.4); Monocytes Absolute Auto 0.8 X10*3/uL (0.1-1.2); Monocytes Percent Auto 9.4 % (2-11); Neutrophils Absolute Auto 6.3 x10*3/uL (2.0-8.3); Neutrophils Percent Auto 75.4 % (45-73); Platelet Count 260 X10*3/uL (160-400); Red Blood Count 3.01 X10*6/uL (4.60-5.80); Red Cell Distribution Width 16.1 % (11.0-16.0); White Blood Count 8.4 X10*3/uL (4.8-10.8)
[2022-06-20] MEDS: Pantoprazole Sodium 40 MG/10 ML VIAL IVPUSH ×2 (05:40→16:40)
[2022-06-20 07:32] VITALS: BP 159/68; PULSE 84; RESP 20; TEMP 36.5; O2SAT 99
[2022-06-20] MEDS: lisinopriL 20 MG TABLET PO (08:21)
[2022-06-20] MEDS: 0.9 % Sodium Chloride Flush 3 ML SYRINGE IVFLUSH ×3 (08:21→23:58)
--- NOTE | 2022-06-20 08:33 | PM.PNTS ---
Subjective Subjective Date of Service: 06/20/22 Interval history: Uneventful evening. Physical Exam Vital Signs: Vital Signs: Last Vital Signs Temp 97.7 F 06/20/22 07:32 Pulse 84 06/20/22 07:32 Resp 20 06/20/22 07:32 BP 159/68 H 06/20/22 07:32 Pulse Ox 99 06/20/22 07:32 O2 Del Method Nasal Cannula 06/20/22 07:32 O2 Flow Rate 2 06/20/22 07:32 BMI result Body Mass Index 28.3 Chest: Other: Wound clean dry and intact. Right upper extremity in sling. Procedures Date of Service Date of Service: 06/20/22 Progress Note: A&P Assessment and plan (1) Sick sinus syndrome: Status: Acute (2) Sinus bradycardia: Status: Acute Plan Status post permanent pacemaker. For interrogation by [facility] this morning. Patient should follow up with me in the surgical clinic in 1-2 weeks. Right upper extremity sling when discharged home for 1-2 weeks. Time Spent With Patient Time: Total time managing care of this patient today ____ minutes. Quality Stroke Does the patient have a stroke diagnosis?: No VTE Prior VTE?: No VTE Risk Level:: Medical - moderate - high VTE Device Contraindication: N/A - Device Ordered VTE Drug Contraindication: Treatment Not Indicated
--- NOTE | 2022-06-20 10:32 | PM.PNCARD ---
Subjective Subjective Date of Service: 06/20/22 Interval history: He states that he feels okay. No new complaints. Received pacemaker yesterday. Review of Systems Review of Systems Yes all other systems are reviewed and are negative Constitutional: Reports as per HPI and Reports no additional constitutional complaints Eyes: Reports as per HPI and Denies no additional eye complaints Denies system reviewed and no additional complaints, except as documented and Reports as per HPI Cardiovascular: Reports as per HPI, Reports no additional cardiovascular complaints, Denies acrocyanosis, Denies cool extremities, Denies chest pain, Denies leg edema, Denies lightheadedness, Denies palpitations and Denies dyspnea Respiratory: Reports as per HPI, Denies no additional respiratory complaints and Denies dyspnea Gastrointestinal: Reports as per HPI and Denies no additional gastrointestinal complaints Genitourinary: Reports no additional male genitourinary complaints and Reports as per HPI Musculoskeletal: Reports no additional musculoskeletal complaints and Reports as per HPI Skin/Breast: Reports system reviewed and no additional complaints, except as docu Reports system reviewed and no additional complaints, except as documented and Reports as per HPI Psychiatric: Reports no additional psychiatric complaints and Reports as per HPI Endocrine: Reports no additional endocrine complaints, Reports as per HPI and Denies palpitations Hematologic/Lymphatic: Reports no additional hematologic/lymphatic complaints and Reports as per HPI Allergic/Immunologic: Reports no additional allergic/immunologic complaints and Reports as per HPI Physical Exam Vital Signs: Last Vital Signs Temp 97.7 F 06/20/22 07:32 Pulse 84 06/20/22 07:32 Resp 20 06/20/22 07:32 BP 159/68 H 06/20/22 07:32 Pulse Ox 99 06/20/22 07:32 O2 Del Method Nasal Cannula 06/20/22 07:32 O2 Flow Rate 2 06/20/22 07:32 BMI result Body Mass Index 28.3 Const General: comfortable and no acute distress Orientation/consciousness: patient oriented x3 HEENT Other: Unremarkable Head: Yes normal to inspection Neck Neck: Yes normal visual inspection Chest Chest palpation & inspection: normal inspection of the chest Resp Auscultation: clear to auscultation bilaterally Cardio Palpation: normal PMI Heart sounds: S1 normal heart sound present, S2 normal heart sound present, no gallops, no murmurs and no rubs GI Palpation (GI): Soft to palpation Back/Spine/Pelvis Other: unremarkable Skin General skin exam: no rashes or lesions noted Neuro General: patient oriented x3 Extrem General: Yes normal to inspection Psych Mental Status: mental status grossly normal Objective Labs and Meds 06/20/22 04:39 06/19/22 06:25 Lab results: Laboratory Results - last 24 hr 06/20/22 04:39 WBC 8.4 RBC 3.01 L Hgb 8.2 L Hct 26.2 L MCV 87.0 MCH 27.2 MCHC 31.3 RDW 16.1 H Plt Count 260 MPV 10.7 Immature Gran % (Auto) 1.7 H Neut % (Auto) 75.4 H Lymph % (Auto) 13.3 L [place] % (Auto) 9.4 Eos % (Auto) 0.0 Baso % (Auto) 0.2 Lymph # (Auto) 1.1 L [place] # (Auto) 0.8 Eos # (Auto) 0.0 Baso # (Auto) 0.0 Abs Immat Gran (auto) 0.14 H Absolute Neuts (auto) 6.3 Absolute Nucleated RBC 0.000 Nucleated RBC % (auto) 0.0 Progress Note: A&P Assessment and plan (1) Atrial fibrillation with rapid ventricular response: Status: Acute (2) Sick sinus syndrome: Status: Acute (3) Anemia: Status: Acute (4) Encounter for interrogation of cardiac pacemaker: Status: Acute Plan Atrial fibrillation and rapid rate with recurrent pauses exceeding 8 seconds with symptomatic dizziness/visual blurring. Based on the above, he underwent permanent pacemaker implantation. By today morning interrogation, normal function. Continue beta-blockers at home dosing. In spite of this, if he still has any further atrial fibrillation episodes, then probably add diltiazem. That would help as he also has high blood pressure. Otherwise, anticoagulation is on hold because of anemia. He has been seen by Gastroenterology and plan to go for EGD/colonoscopy. Once that is cleared up, may resume anticoagulation. He does have a history of alcohol use but he states he has not done that in 2 months or so. Usual pacemaker precautions and then we will arrange follow-up in the clinic. Time Spent With Patient Time: Total time managing care of this patient today ____ minutes. Progress Note: Quality Stroke Does the patient have a stroke diagnosis?: No Procedures Date of Service Date of Service: 06/20/22
[2022-06-20 11:06] VITALS: BP 154/70; PULSE 93; RESP 20; TEMP 37.1; O2SAT 97
[2022-06-20] MEDS: Metoprolol Tartrate 100 MG TABLET PO ×2 (11:49→20:13)
--- NOTE | 2022-06-20 13:24 | P.PNIM_ITS ---
Subjective Subjective Date of Service: 06/20/22 Review of Systems Follow up afib rvr, anemia, SSS no pain, or discomfort, sling to left arm Physical Exam Vital Signs: Vital Signs: Last Vital Signs Temp 98.7 F 06/20/22 11:06 Pulse 93 06/20/22 11:06 Resp 20 06/20/22 11:06 BP 154/70 H 06/20/22 11:06 Pulse Ox 97 06/20/22 11:06 O2 Del Method Room Air 06/20/22 11:06 O2 Flow Rate 2 06/20/22 07:32 BMI result Body Mass Index 28.3 Appearing in no acute distress lung sounds are clear to auscultation heart regular rate rhythm, clear S1, S2 positive bowel sounds, abdomen is soft, nontender neuro patient is alert x3, no focal deficits Pacer site sutured, sling to left arm Objective Data Active Medications Acetaminophen (Acetaminophen 325 Mg Tablet) 650 mg PO Q6H PRN PRN Reason: Pain, Mild (Pain Scale 1-3) Docusate Sodium (Docusate Sodium 100 Mg Capsule) 100 mg PO DAILY PRN PRN Reason: Constipation Lactated Ringer's (Lr) 500 mls @ 20 mls/hr IVCONT .Q24H [facility] Last Admin: 06/19/22 16:00 Dose: Not Given Documented By: LEAH Non-Admin Reason: Off Unit: Surgery Lisinopril (Lisinopril 20 Mg Tablet) 20 mg PO DAILY [facility]; Protocol Last Admin: 06/20/22 08:21 Dose: 20 mg Documented By: LEAH Metoprolol Tartrate (Metoprolol Tartrate 100 Mg Tablet) 100 mg PO BID [facility]; Protocol Last Admin: 06/20/22 11:49 Dose: 100 mg Documented By: LEAH Ondansetron HCl (Ondansetron Hcl 4 Mg/2 Ml Vial) 4 mg IVPUSH Q8H PRN PRN Reason: Nausea and Vomiting Oxycodone HCl (Oxycodone Hcl Immed Release 5 Mg Tablet) 5 mg PO Q6H PRN PRN Reason: Pain, Moderate(Pain Scale 4-6) Pantoprazole Sodium (Pantoprazole Sodium 40 Mg/10 Ml Vial) 40 mg IVPUSH BID@0630,1630 [facility] Last Admin: 06/20/22 05:40 Dose: 40 mg Documented By: SERENITY Pharmacy Consult (Consult Rx Perform Med Rec) 1 each MISCELLANE ONCE PRN PRN Reason: Consult order Polyethylene Glycol/Electrolytes (Peg 3350/Na Sulf,Bicarb,Cl/Kcl 4,000 Ml Soln.Recon) 4,000 ml PO ONCE ONE Stop: 06/20/22 17:01 Sodium Chloride (0.9 % Sodium Chloride Flush 3 Ml Syringe) 3 ml IVFLUSH QSHIFT [facility] Last Admin: 06/20/22 08:21 Dose: 3 ml Documented By: LEAH Labs 06/20/22 04:39 06/19/22 06:25 Labs: Laboratory Results - last 24 hr 06/20/22 04:39 MCV 87.0 MCH 27.2 MCHC 31.3 RDW 16.1 H Plt Count 260 MPV 10.7 Immature Gran % (Auto) 1.7 H Neut % (Auto) 75.4 H Lymph % (Auto) 13.3 L [place] % (Auto) 9.4 Eos % (Auto) 0.0 Baso % (Auto) 0.2 Lymph # (Auto) 1.1 L [place] # (Auto) 0.8 Eos # (Auto) 0.0 Baso # (Auto) 0.0 Abs Immat Gran (auto) 0.14 H Absolute Neuts (auto) 6.3 Absolute Nucleated RBC 0.000 Nucleated RBC % (auto) 0.0 Assessment and Plan (1) Acute on chronic anemia: Status: Acute Plan 76-year-old male with past medical history of AFib on anticoagulation, hypertension, presents to the hospital with complaints of dizziness, found to have multiple abnormalities SSS dissiness associated with multiple episodes of pauses on telemetry, some over 8 seconds No AV block on EKG s/p pacemaker 06/19/22 AFib with RVR echo with EF of 63%, no rwma restart metoprolol cardiology following hold Eliquis in light of endo/colo normocytic anemia, acute on chronic anemia, likely secondary to GI bleed dropped from 11-8.4 within less than 2 months evidence of diverticulosis with no diverticulitis on CT abdomen patient on Eliquis, denies any use of NSAIDs will hold off Eliquis at this time GI consult, plan for EGD and colo 06/21/22 s/p 1 unit of PRBC abnormal mass of kidney/pancreas imaging 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 Kapadia Full code continue hospital stay for acute anemia, afib rvr and SSS likely requiring pacer placement and close cardiac monitoring Time Spent With Patient Time: Total time managing care of this patient today ____ minutes. Quality Stroke Does the patient have a stroke diagnosis?: No VTE Prior VTE?: No VTE Risk Level:: Medical - moderate - high VTE Device Contraindication: N/A - Device Ordered VTE Drug Contraindication: Treatment Not Indicated
--- NOTE | 2022-06-20 14:07 | HO.POSTANES ---
Post Anesthesia Evaluation Post Anesthesia Evaluation Vital Signs: Vital Signs Temp Pulse Resp BP Pulse Ox O2 Del Method O2 Flow Rate 06/20/22 11:06 98.7 F 93 20 154/70 H 97 Room Air 06/20/22 07:32 97.7 F 84 20 159/68 H 99 Nasal Cannula 2 06/20/22 04:00 98.7 F 108 H 18 141/89 H 97 Room Air Anesthesia: Monitored Mental Status: Awake Pain Control: Satisfactory Nausea/Vomiting: None Hydration: Adequate Anesthesia-Related Issues: No Anes. Related Issues
[2022-06-20] MEDS: Lactated Ringers 500 ML 20 ML IVCONT (14:59)
[2022-06-20 15:45] VITALS: BP 137/67; PULSE 62; RESP 17; TEMP 37.3; O2SAT 98
[2022-06-20] MEDS: PEG 3350/Na Sulf,Bicarb,Cl/KCL 4,000 ML SOLN.RECON 4000 ML PO (16:40)
[2022-06-20 19:02] VITALS: BP 154/70; PULSE 56; RESP 17; TEMP 36.9; O2SAT 98
[2022-06-20 23:40] VITALS: BP 161/71; PULSE 62; RESP 18; TEMP 36.8; O2SAT 98
[2022-06-21] VITALS (9 sets, daily range): BP systolic 98–159; BP diastolic 51–71; PULSE 59–77; RESP 16–20; TEMP 36–37.1; O2SAT 95–99
[2022-06-21] MEDS: Pantoprazole Sodium 40 MG/10 ML VIAL IVPUSH (06:06)
[2022-06-21 07:10] LABS: Hematocrit 27.4 % (42.0-52.0); Hemoglobin 8.3 g/dl (14.0-18.0); Mean Corpuscular HGB Conc 30.3 g/dl (31.0-36.0); Mean Corpuscular Hemoglobin 26.6 pg (27.0-33.0); Mean Corpuscular Volume 87.8 fL (80.0-98.0); Mean Platelet Volume 10.8 fL (9.4-12.4); Platelet Count 247 X10*3/uL (160-400); Red Blood Count 3.12 X10*6/uL (4.60-5.80); Red Cell Distribution Width 16.4 % (11.0-16.0); White Blood Count 10.9 X10*3/uL (4.8-10.8)
[2022-06-21 07:32] LABS: Anion Gap 11 (12-20); Blood Urea Nitrogen 14 mg/dL (9-16); Calcium 8.5 mg/dL (8.4-10.2); Carbon Dioxide 27 mmol/L (22-29); Chloride 107 mmol/L (96-108); Creatinine Clr Calc Pharmacy 60.5; Estimated Glomerular Filt Rate > 60; Glucose Random 76 mg/dL (60-115); Potassium 4.9 mmol/L (3.3-5.1); Sodium 140 mmol/L (135-145)
[2022-06-21] MEDS: lisinopriL 20 MG TABLET PO (07:38)
[2022-06-21] MEDS: Metoprolol Tartrate 100 MG TABLET PO ×2 (07:38→20:34)
[2022-06-21] MEDS: 0.9 % Sodium Chloride Flush 3 ML SYRINGE IVFLUSH ×2 (07:39→20:34)
--- NOTE | 2022-06-21 10:28 | MHC.CM.PN ---
Per ROUNDS discussion, Patient is not yet medically cleared for dc (scoped today and needs PT eval to assist with disposition); CM will follow.
--- NOTE | 2022-06-21 11:45 | HO.PM.IMPN ---
Subjective Subjective Date of Service: 06/21/22 Interval History: This history was taken in [place] from the patient. No pain from pacemaker, in sling currently No dizziness or lightheadedness No abd pain, melena, or hematochezia Review of Systems Review of Systems: Yes all other systems are reviewed and are negative Physical Exam Vital Signs: Vital Signs: Last Vital Signs Temp 96.8 F 06/21/22 11:28 Pulse 60 06/21/22 11:28 Resp 16 06/21/22 11:28 BP 125/71 06/21/22 11:28 Pulse Ox 96 06/21/22 11:28 O2 Del Method Room Air 06/21/22 11:28 O2 Flow Rate 2 06/20/22 07:32 BMI result Body Mass Index 28.3 Gen: in no acute distress HEENT: sclera anicteric, moist mucus membranes Neck: supple Lungs: clear to auscultation bilaterally Heart: regular rate and rhythm, no murmurs, L arm in sling Abd: soft, non-tender, non-distended Ext: no edema Skin: warm/well-perfused, pacemaker site C/D/I Neuro: alert and oriented x3, no focal findings Psych: appropriate affect Objective Data Active Medications Acetaminophen (Acetaminophen 325 Mg Tablet) 650 mg PO Q6H PRN PRN Reason: Pain, Mild (Pain Scale 1-3) Docusate Sodium (Docusate Sodium 100 Mg Capsule) 100 mg PO DAILY PRN PRN Reason: Constipation Lactated Ringer's (Lr) 500 mls @ 20 mls/hr IVCONT .Q24H [facility] Last Admin: 06/20/22 14:59 Dose: 20 mls/hr Documented By: LEAH Lisinopril (Lisinopril 20 Mg Tablet) 20 mg PO DAILY [facility]; Protocol Last Admin: 06/21/22 07:38 Dose: 20 mg Documented By: JENNIE Metoprolol Tartrate (Metoprolol Tartrate 100 Mg Tablet) 100 mg PO BID [facility]; Protocol Last Admin: 06/21/22 07:38 Dose: 100 mg Documented By: JENNIE Ondansetron HCl (Ondansetron Hcl 4 Mg/2 Ml Vial) 4 mg IVPUSH Q8H PRN PRN Reason: Nausea and Vomiting Oxycodone HCl (Oxycodone Hcl Immed Release 5 Mg Tablet) 5 mg PO Q6H PRN PRN Reason: Pain, Moderate(Pain Scale 4-6) Pantoprazole Sodium (Pantoprazole Sodium 40 Mg/10 Ml Vial) 40 mg IVPUSH BID@0630,1630 [facility] Last Admin: 06/21/22 06:06 Dose: 40 mg Documented By: ANTOIC Pharmacy Consult (Consult Rx Perform Med Rec) 1 each MISCELLANE ONCE PRN PRN Reason: Consult order Sodium Chloride (0.9 % Sodium Chloride Flush 3 Ml Syringe) 3 ml IVFLUSH QSHIFT [facility] Last Admin: 06/21/22 07:39 Dose: 3 ml Documented By: FOSTEKR Labs 06/21/22 06:37 06/21/22 06:37 Labs: Laboratory Results - last 24 hr 06/21/22 06/21/22 06:37 06:37 MCV 87.8 MCH 26.6 L MCHC 30.3 L RDW 16.4 H Plt Count 247 MPV 10.8 Absolute Nucleated RBC 0.000 Nucleated RBC % (auto) 0.0 Anion Gap 11 L Estim Creat Clear Calc 60.5 Estimated GFR > 60 Random Glucose 76 Calcium 8.5 Assessment and Plan (1) Acute on chronic anemia: Status: Acute Plan d#4 76yo M with AF on apixaban, HTN presenting with dizziness, admitted for sinus pauses up to 8s, acute/chronic anemia with FOBT+ # SSS - s/p PPM 06/19/22 with pacer functioning appropriately postop - PPM precautions # paroxysmal AF with RVR - restarted metoprolol; if pAF recurs, can add diltiazem - apixaban held for anemia/FOBT+ # acute/chronic normocytic anemia [Hb 11.5->8.4], FOBT+ - hold apixaban, transfused 1u pRBCs 06/19, GI consulted- plan EGD + C-scope today, IV PPI # incidental cystic structure and/or dilated segment of pancreatic duct in the head and proximal body, without significant change since prior imaging Mar 2021 - outpt MRI/MRCP # incidental small left renal lesion, not definitely cystic, cannot exclude solid mass - followed by Urology, 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 Quality Stroke Does the patient have a stroke diagnosis?: No VTE Prior VTE?: No VTE Risk Level:: Medical - moderate - high VTE Device Contraindication: N/A - Device Ordered VTE Drug Contraindication: Treatment Not Indicated
--- NOTE | 2022-06-21 14:07 | HO.ANESPROP2 ---
[facility] Active Problems Active Problems: All Active Problems (Updated 06/20/22 @ 10:41 by Randy Melgar MD) Encounter for interrogation of cardiac pacemaker (Acute) Acute on chronic anemia (Acute) Normocytic anemia (Acute) Dizziness (Acute) Sick sinus syndrome (Acute) Sinus bradycardia (Acute) GI bleed (Acute) Chronic anticoagulation (Acute) Anemia (Acute) Atrial fibrillation with rapid ventricular response (Acute) Cancer of kidney (Acute) Past Medical History Medical History Atrial fibrillation Borderline hyperlipidemia EtOH dependence High cholesterol HTN (hypertension) Hypertension Inhibited sex excitement Mild cognitive impairment OA (osteoarthritis) Obesity Family History Family History Mother Heart problem Family history of problems with anesthesia: No Surgical History History of Problems with Anesthesia: No Social History Social History Household Members: Spouse Housing: House Do you presently have visiting nurse or other home services: No Alcohol intake: current Alcohol intake frequency: former alcohol drinker Alcohol type: beer Patient Tobacco Use Status: Former Tobacco user service: Yes Current occupational status: retired [employer] Allergies Allergy/AdvReac Type Severity Reaction Status Date / Time No Known Allergies [NKA] Allergy Mild NOT Verified 06/18/22 18:04 APPLICABLE Active Medications: Current Medications Acetaminophen (Acetaminophen 325 Mg Tablet) 650 mg PO Q6H PRN PRN Reason: Pain, Mild (Pain Scale 1-3) Docusate Sodium (Docusate Sodium 100 Mg Capsule) 100 mg PO DAILY PRN PRN Reason: Constipation Lactated Ringer's (Lr) 500 mls @ 20 mls/hr IVCONT .Q24H [facility] Last Admin: 06/20/22 14:59 Dose: 20 mls/hr Lisinopril (Lisinopril 20 Mg Tablet) 20 mg PO DAILY [facility]; Protocol Last Admin: 06/21/22 07:38 Dose: 20 mg Metoprolol Tartrate (Metoprolol Tartrate 100 Mg Tablet) 100 mg PO BID [facility]; Protocol Last Admin: 06/21/22 07:38 Dose: 100 mg Ondansetron HCl (Ondansetron Hcl 4 Mg/2 Ml Vial) 4 mg IVPUSH Q8H PRN PRN Reason: Nausea and Vomiting Oxycodone HCl (Oxycodone Hcl Immed Release 5 Mg Tablet) 5 mg PO Q6H PRN PRN Reason: Pain, Moderate(Pain Scale 4-6) Pantoprazole Sodium (Pantoprazole Sodium 40 Mg/10 Ml Vial) 40 mg IVPUSH BID@0630,1630 [facility] Last Admin: 06/21/22 06:06 Dose: 40 mg Pharmacy Consult (Consult Rx Perform Med Rec) 1 each MISCELLANE ONCE PRN PRN Reason: Consult order Sodium Chloride (0.9 % Sodium Chloride Flush 3 Ml Syringe) 3 ml IVFLUSH QSHIFT [facility] Last Admin: 06/21/22 07:39 Dose: 3 ml Home Medications Medication Instructions Recorded Confirmed Last Taken Type aspirin 81 mg tablet,delayed 81 mg PO DAILY 06/19/22 06/19/22 06/18/22 History release Exam Exam Date and Time: June 21, 2022 1407 Height,Weight and Vital Signs: Height 5 ft 9 in Weight 86.8 kg Last Vital Signs Temp 96.8 F 06/21/22 11:28 Pulse 60 06/21/22 11:28 Resp 16 06/21/22 11:28 BP 125/71 06/21/22 11:28 Pulse Ox 96 06/21/22 11:28 O2 Del Method Room Air 06/21/22 11:28 O2 Flow Rate 2 06/20/22 07:32 Pertinent Lab Results Pertinent Lab Results: Laboratory Tests 06/18/22 06/18/22 06/18/22 18:28 18:28 18:28 WBC 11.0 H RBC 3.21 L D Hgb 8.4 L D Hct 27.8 L D MCV 86.6 MCH 26.2 L MCHC 30.2 L RDW 15.8 Plt Count 294 MPV 10.5 Immature Gran % (Auto) 2.1 H Neut % (Auto) 66.5 Lymph % (Auto) 16.5 L [place] % (Auto) 12.9 H Eos % (Auto) 1.6 Baso % (Auto) 0.4 Lymph # (Auto) 1.8 [place] # (Auto) 1.4 H Eos # (Auto) 0.2 Baso # (Auto) 0.0 Abs Immat Gran (auto) 0.23 H Absolute Neuts (auto) 7.3 Absolute Nucleated RBC 0.000 Nucleated RBC % (auto) 0.0 PT 13.1 INR 1.1 Sodium 134 L Potassium 4.9 Chloride 103 Carbon Dioxide 26 Anion Gap 10 L BUN 13 Creatinine 0.94 Estim Creat Clear Calc 75.5 Estimated GFR > 60 Random Glucose 95 Calcium 8.6 Total Bilirubin 0.5 AST 20 ALT 18 Alkaline Phosphatase 98 Troponin I High Sens B-Natriuretic Peptide Total Protein 6.5 Albumin 3.4 L TSH 1.65 Urine Color Urine Appearance Urine pH Ur Specific [place] Urine Protein Urine Glucose (UA) Urine Ketones Urine Blood Urine Nitrite Ur Leukocyte Esterase Stool Occult Blood Ethyl Alcohol Blood Type Antibody Screen Crossmatch 06/18/22 06/18/22 06/18/22 18:28 18:28 18:28 WBC RBC Hgb Hct MCV MCH MCHC RDW Plt Count MPV Immature Gran % (Auto) Neut % (Auto) Lymph % (Auto) [place] % (Auto) Eos % (Auto) Baso % (Auto) Lymph # (Auto) [place] # (Auto) Eos # (Auto) Baso # (Auto) Abs Immat Gran (auto) Absolute Neuts (auto) Absolute Nucleated RBC Nucleated RBC % (auto) PT INR Sodium Potassium Chloride Carbon Dioxide Anion Gap BUN Creatinine Estim Creat Clear Calc Estimated GFR Random Glucose Calcium Total Bilirubin AST ALT Alkaline Phosphatase Troponin I High Sens 3.3 D B-Natriuretic Peptide 56 Total Protein Albumin TSH Urine Color Urine Appearance Urine pH Ur Specific [place] Urine Protein Urine Glucose (UA) Urine Ketones Urine Blood Urine Nitrite Ur Leukocyte Esterase Stool Occult Blood Ethyl Alcohol < 10 Blood Type Antibody Screen Crossmatch 06/18/22 06/18/22 06/18/22 18:35 20:00 20:34 WBC RBC Hgb Hct MCV MCH MCHC RDW Plt Count MPV Immature Gran % (Auto) Neut % (Auto) Lymph % (Auto) [place] % (Auto) Eos % (Auto) Baso % (Auto) Lymph # (Auto) [place] # (Auto) Eos # (Auto) Baso # (Auto) Abs Immat Gran (auto) Absolute Neuts (auto) Absolute Nucleated RBC Nucleated RBC % (auto) PT INR Sodium Potassium Chloride Carbon Dioxide Anion Gap BUN Creatinine Estim Creat Clear Calc Estimated GFR Random Glucose Calcium Total Bilirubin AST ALT Alkaline Phosphatase Troponin I High Sens B-Natriuretic Peptide Total Protein Albumin TSH Urine Color Yellow Urine Appearance Clear Urine pH 6.0 Ur Specific [place] <= 1.005 Urine Protein Negative Urine Glucose (UA) Negative Urine Ketones Negative Urine Blood Negative Urine Nitrite Negative Ur Leukocyte Esterase Negative Stool Occult Blood POSITIVE Ethyl Alcohol Blood Type A Positive Antibody Screen NEGATIVE Crossmatch See Detail 06/19/22 06/19/22 06/20/22 06:25 06:25 04:39 WBC 11.3 H 8.4 RBC 3.25 L 3.01 L Hgb 8.9 L 8.2 L Hct 28.5 L 26.2 L MCV 87.7 87.0 MCH 27.4 27.2 MCHC 31.2 31.3 RDW 15.9 16.1 H Plt Count 277 260 MPV 10.7 10.7 Immature Gran % (Auto) 1.9 H 1.7 H Neut % (Auto) 64.8 75.4 H Lymph % (Auto) 18.4 L 13.3 L [place] % (Auto) 12.8 H 9.4 Eos % (Auto) 1.7 0.0 Baso % (Auto) 0.4 0.2 Lymph # (Auto) 2.1 1.1 L [place] # (Auto) 1.5 H 0.8 Eos # (Auto) 0.2 0.0 Baso # (Auto) 0.0 0.0 Abs Immat Gran (auto) 0.21 H 0.14 H Absolute Neuts (auto) 7.4 6.3 Absolute Nucleated RBC 0.000 0.000 Nucleated RBC % (auto) 0.0 0.0 PT INR Sodium 136 Potassium 4.9 Chloride 104 Carbon Dioxide 27 Anion Gap 10 L BUN 13 Creatinine 1.07 Estim Creat Clear Calc 66.3 Estimated GFR > 60 Random Glucose 91 Calcium 8.7 Total Bilirubin AST ALT Alkaline Phosphatase Troponin I High Sens B-Natriuretic Peptide Total Protein Albumin TSH Urine Color Urine Appearance Urine pH Ur Specific [place] Urine Protein Urine Glucose (UA) Urine Ketones Urine Blood Urine Nitrite Ur Leukocyte Esterase Stool Occult Blood Ethyl Alcohol Blood Type Antibody Screen Crossmatch 06/21/22 06/21/22 06:37 06:37 WBC 10.9 H RBC 3.12 L Hgb 8.3 L Hct 27.4 L MCV 87.8 MCH 26.6 L MCHC 30.3 L RDW 16.4 H Plt Count 247 MPV 10.8 Immature Gran % (Auto) Neut % (Auto) Lymph % (Auto) [place] % (Auto) Eos % (Auto) Baso % (Auto) Lymph # (Auto) [place] # (Auto) Eos # (Auto) Baso # (Auto) Abs Immat Gran (auto) Absolute Neuts (auto) Absolute Nucleated RBC 0.000 Nucleated RBC % (auto) 0.0 PT INR Sodium 140 Potassium 4.9 Chloride 107 Carbon Dioxide 27 Anion Gap 11 L BUN 14 Creatinine 1.15 Estim Creat Clear Calc 60.5 Estimated GFR > 60 Random Glucose 76 Calcium 8.5 Total Bilirubin AST ALT Alkaline Phosphatase Troponin I High Sens B-Natriuretic Peptide Total Protein Albumin TSH Urine Color Urine Appearance Urine pH Ur Specific [place] Urine Protein Urine Glucose (UA) Urine Ketones Urine Blood Urine Nitrite Ur Leukocyte Esterase Stool Occult Blood Ethyl Alcohol Blood Type Antibody Screen Crossmatch Airway Mallampati Class: II TM Dist: >3cm Neck ROM: Full Denture: Upper and Lower Heart: rrr Lungs: cta Assessment and Plan Assessment Anesthesia Assessment: Anesthesia Plan Discussed and Chart Reviewed Final Anesthetic Review Family History of Problems with Anesthesia: No History of Problems with Anesthesia: No NPO: Yes ASA Class: III Final Preanesthetic Review: No Changes in Pt Med Stat, Meds/Allgs Chart Reviewed and Consent Obtained/Reviewed Patient Risk: Intermediate Procedure Risk: Intermediate Anesthetic Plan Anesthetic Plan: MAC: Disposition: Standard PACU
--- NOTE | 2022-06-21 15:02 | PC.NURSE ---
ok per Dr. Armstrong, pt s/p pacemaker insertion right chest, post-op day #1 - ok to undergo EGD/colonoscopy as long as sling is in place on RUE. sling on RUE in place, steris clean, dry, and intect right chest.
--- NOTE | 2022-06-21 16:38 | MHC.SHP ---
Pre-Procedural Eval Section A Date of Service: 06/21/22 The patient is an INPATIENT: Yes The History & Physical has been completed within 30 days and I have reviewed it.: Yes Section B Chief Complaint: Symptomatic anemia, a. fib w rvr, GI bleed Allergies: Allergies Allergy/AdvReac Type Severity Reaction Status Date / Time No Known Allergies [NKA] Allergy Mild NOT Verified 06/18/22 18:04 APPLICABLE Plan Diagnosis/Plan: Unchanged I have reviewed the history and physical and performed a pertinent physical examination on my patient. No changes have occurred unless specified. Time Spent With Patient Time: Total time managing care of this patient today ____ minutes.
--- NOTE | 2022-06-21 16:39 | P.OP_ITS ---
Operative Note Operative Note Date of Service: 06/21/22 Narrative: Operative Information Procedure Description: EGD, Colonoscopy Indication: anemia Anesthesia: MAC FLEXIBLE TRANSORAL UPPER GASTROINTESTINAL ENDOSCOPY AND COLONOSCOPY PROCEDURE NOTE UPPER ENDOSCOPY Consent: Indications for the procedure and potential complications of bleeding, perforation, reaction to medications and missed diagnosis were discussed with the patient and informed consent was obtained. Instrument: Olympus GIF H 190 J mid size upper endoscope Monitoring: Vital signs and clinical assessment, continuous EKG monitoring, Pulse oximetry, Carbon Dioxide monitoring and blood pressure monitoring were done throughout the procedure. Procedure: The patient was placed in the left lateral decubitis position and pre-procedure medications were administered and a bite block was placed. The endoscope was inserted into the mouth and advanced under direct vision to the third part of duodenum. A careful inspection was made as the upper endoscope was withdrawn including a retroflexed examination of the proximal stomach; Findings and interventions are described below. Findings: Larynx:normal Esophagus: GE junction at 40 cm, diaphragm hiatus at 40 cm, mild esophagitis noted, Stomach: Mild gastritis. Biopsies were obtained. 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 Duodenum: congested and erythematous duodenal bulb, bx taken Intervention: Biopsies as noted above, APC to AVM COLONOSCOPY Instrument: Olympus variable stiffness pediatric scope 190L Colonoscopy Monitoring: Vital signs and clinical assessment, continuous EKG monitoring, Pulse oximetry, Carbon Dioxide monitoring and blood pressure monitoring were done throughout the procedure. Colon withdrawal time was 16 minutes. Procedure: The patient was placed in the left lateral decubitis position and pre-procedure medications were administered. After a digital rectal examination of the ano-rectum, the video colonoscope was inserted into the rectum and advanced through the colon to the cecum/TI. The colonoscope was slowly withdrawn in a retrograde panoramic fashion and the colon mucosa was carefully examined including a retroflexed view of the rectum. Findings and interventions are described below. Procedure Difficulty: mdoerate due to looping Findings: Terminal Ileum-not intubated Cecum:normal Ascending Colon: x 3 semi pedunculated polyps 12-14 mm each removed with cold snare, one area had clip placed Transverse Colon -normal Descending Colon: x1 sessile polyp 12-14 mm removed with cold snare Sigmoid Colon: mdoerate diverticulosis Rectum: Retroflexion with medium sized internal hemorrhoids, grade I, Rectal mass noted at about 8-10 cm from anal verge with irregular hard edges and measured about 6-8 cm. biopsies taken Anorectum - normal Colon preparation: [place] Bowel Preparation Scale Right colon; 2 Transverse colon: 2 Left colon; 2 (0 = Unprepared colon segment with mucosa not seen due to solid stool that cannot be cleared. 1 = Portion of mucosa of the colon segment seen, but other areas of the colon segment not well seen due to staining, residual stool and/or opaque liquid. 2 = Minor amount of residual staining, small fragments of stool and/or opaque liquid, but mucosa of colon segment seen well. 3 = Entire mucosa of colon segment seen well with no residual staining, small fragments of stool or opaque liquid) Impression and Post Procedure Diagnosis: Endoscopy Findings: AVM duodenitis esophagitis gastritis Colonoscopy Findings: polyps internal hemorrhoids diverticular disease rectal mass Plan: Await Pathology results surgical referral, will need MRI pelvis, CT A/P and chest, check CEA level High fiber diet leaflet avoid straining at stool, epsom salts and sitz bath, anusol supps or cream Above findings were reviewed with the patient and relevant handouts were provided if indicated.
[2022-06-22] MEDS: Lactated Ringers 500 ML 20 ML IVCONT (02:46)
[2022-06-22 03:08] VITALS: BP 120/60; PULSE 62; RESP 18; TEMP 36.8; O2SAT 95
[2022-06-22 07:00] VITALS: BP 146/67; PULSE 72; RESP 20; TEMP 36.8; O2SAT 96
[2022-06-22 07:11] LABS: Hemoglobin 8.6 g/dl (14.0-18.0); Mean Corpuscular HGB Conc 30.7 g/dl (31.0-36.0); Mean Corpuscular Hemoglobin 27.2 pg (27.0-33.0); Mean Corpuscular Volume 88.6 fL (80.0-98.0); Mean Platelet Volume 10.9 fL (9.4-12.4); Platelet Count 280 X10*3/uL (160-400); Red Blood Count 3.16 X10*6/uL (4.60-5.80); Red Cell Distribution Width 16.8 % (11.0-16.0); White Blood Count 13.5 X10*3/uL (4.8-10.8)
[2022-06-22 07:27] LABS: Anion Gap 14 (12-20); Blood Urea Nitrogen 13 mg/dL (9-16); Calcium 8.8 mg/dL (8.4-10.2); Carbon Dioxide 26 mmol/L (22-29); Chloride 106 mmol/L (96-108); Creatinine Clr Calc Pharmacy 63.3; Estimated Glomerular Filt Rate > 60; Glucose Random 88 mg/dL (60-115); Potassium 4.8 mmol/L (3.3-5.1); Sodium 141 mmol/L (135-145)
--- NOTE | 2022-06-22 08:01 | HO.POSTANES ---
Post Anesthesia Evaluation Post Anesthesia Evaluation Vital Signs: Vital Signs Temp Pulse Resp BP Pulse Ox O2 Del Method 06/22/22 07:00 98.2 F 72 20 146/67 H 96 Room Air 06/22/22 03:08 98.2 F 62 18 120/60 95 Room Air 06/21/22 23:18 98.2 F 62 18 131/66 95 Room Air Anesthesia: Monitored Mental Status: Awake Pain Control: Satisfactory Nausea/Vomiting: None Hydration: Adequate Anesthesia-Related Issues: No Anes. Related Issues
[2022-06-22] MEDS: lisinopriL 20 MG TABLET PO (09:10)
[2022-06-22] MEDS: Metoprolol Tartrate 100 MG TABLET PO (09:10)
--- NOTE | 2022-06-22 09:29 | P.PNCA_ITS ---
Subjective Subjective Date of Service: 06/22/22 Interval history: Patient states that he is feeling okay. No clear-cut cardiac complaints at this time. Underwent GI workup with EGD/colonoscopy. That had abnormal findings. Review of Systems Review of Systems Yes all other systems are reviewed and are negative Constitutional: Reports as per HPI and Reports no additional constitutional complaints Eyes: Reports as per HPI and Denies no additional eye complaints Denies system reviewed and no additional complaints, except as documented and Reports as per HPI Cardiovascular: Reports as per HPI, Reports no additional cardiovascular complaints, Denies acrocyanosis, Denies cool extremities, Denies chest pain, Denies leg edema, Denies lightheadedness, Denies palpitations and Denies dyspnea Respiratory: Reports as per HPI, Denies no additional respiratory complaints and Denies dyspnea Gastrointestinal: Reports as per HPI and Denies no additional gastrointestinal complaints Genitourinary: Reports no additional male genitourinary complaints and Reports as per HPI Musculoskeletal: Reports no additional musculoskeletal complaints and Reports as per HPI Skin/Breast: Reports system reviewed and no additional complaints, except as docu Reports system reviewed and no additional complaints, except as documented and Reports as per HPI Psychiatric: Reports no additional psychiatric complaints and Reports as per HPI Endocrine: Reports no additional endocrine complaints, Reports as per HPI and Denies palpitations Hematologic/Lymphatic: Reports no additional hematologic/lymphatic complaints and Reports as per HPI Allergic/Immunologic: Reports no additional allergic/immunologic complaints and Reports as per HPI Physical Exam Vital Signs: Last Vital Signs Temp 98.2 F 06/22/22 07:00 Pulse 72 06/22/22 07:00 Resp 20 06/22/22 07:00 BP 146/67 H 06/22/22 07:00 Pulse Ox 96 06/22/22 07:00 O2 Del Method Room Air 06/22/22 07:00 O2 Flow Rate 2 06/20/22 07:32 BMI result Body Mass Index 28.3 Const General: comfortable and no acute distress Orientation/consciousness: patient oriented x3 HEENT Other: Unremarkable Head: Yes normal to inspection Neck Neck: Yes normal visual inspection Chest Chest palpation & inspection: normal inspection of the chest Resp Auscultation: clear to auscultation bilaterally Cardio Palpation: normal PMI Heart sounds: S1 normal heart sound present, S2 normal heart sound present, no gallops, no murmurs and no rubs GI Palpation (GI): Soft to palpation Back/Spine/Pelvis Other: unremarkable Skin General skin exam: no rashes or lesions noted Neuro General: patient oriented x3 Extrem General: Yes normal to inspection Psych Mental Status: mental status grossly normal Objective Labs and Meds 06/22/22 06:52 06/22/22 06:52 Lab results: Laboratory Results - last 24 hr 06/22/22 06/22/22 06:52 06:52 WBC 13.5 H RBC 3.16 L Hgb 8.6 L Hct 28.0 L MCV 88.6 MCH 27.2 MCHC 30.7 L RDW 16.8 H Plt Count 280 MPV 10.9 Absolute Nucleated RBC 0.000 Nucleated RBC % (auto) 0.0 Sodium 141 Potassium 4.8 Chloride 106 Carbon Dioxide 26 Anion Gap 14 BUN 13 Creatinine 1.10 Estim Creat Clear Calc 63.3 Estimated GFR > 60 Random Glucose 88 Calcium 8.8 Progress Note: A&P Assessment and plan (1) Atrial fibrillation with rapid ventricular response: Status: Acute (2) Sick sinus syndrome: Status: Acute (3) Anemia: Status: Acute (4) Encounter for interrogation of cardiac pacemaker: Status: Acute Plan Atrial fibrillation and rapid rate with recurrent pauses exceeding 8 seconds with symptomatic dizziness/visual blurring. This led to permanent pacemaker implantation. Normally function. Patient remains in sinus rhythm on telemetry. EGD/colonoscopy findings reviewed. On endoscopy, he had AVMs, esophagitis, duod enitis, gastritis. On colonoscopy, he had polyps, internal hemorrhoids, diverticular disease and rectal mass. Further workup is pending at this time. With regard to anticoagulation, may hold as indicated. Otherwise, atrial fibrillation is controlled on the current dose of beta- blockers. If still necessary we can add some diltiazem as well. Will follow up with you. Discussed with Stacie Silverman Time Spent With Patient Time: Total time managing care of this patient today 50 minutes. This includes time spent in review of chart, laboratory data, imaging studies, review of telemetry, counseling patient, discussion with hospitalist, documentation, coordination of care. Progress Note: Quality Stroke Does the patient have a stroke diagnosis?: No Procedures Date of Service Date of Service: 06/22/22
[2022-06-22 11:17] VITALS: BP 121/59; PULSE 60; RESP 20; TEMP 36.3; O2SAT 98
--- NOTE | 2022-06-22 11:23 | P.DS_ITS ---
DS: Providers Provider Date of Service: 06/22/22 Date of admission: 06/18/22 22:10 Date of discharge: 06/22/22 Primary care physician: Dayana Nolan Consults: 06/18/22 21:00 Consult to Gastroenterology Routine Consulting Provider: Nawaf Lara Reason for consultation: anemia, positive guaic, on ac Has provider been notified: No 06/18/22 22:06 Consult to Cardiology Routine Consulting Provider: [facility] Reason for consultation: several seconds of pause, A fib w RBR, symptomatic 06/19/22 09:49 Consult to Thoracic Surgery Routine Consulting Provider: Manjinder Armstrong Reason for consultation: SSS Attending physician on discharge: Mando Kapadia Discharging clinician: Stacie Silverman DS: Diagnosis Discharge Diagnosis (1) Atrial fibrillation with rapid ventricular response: Status: Acute (2) Sick sinus syndrome: Status: Acute (3) Anemia: Status: Acute (4) Encounter for interrogation of cardiac pacemaker: Status: Acute (5) Rectal mass: Status: Acute DS: Summary Hospital Course Hospital Course: From H&P on day of admission 76-year-old male with past medical history of AFib on Eliquis, HTN, history of alcohol abuse although patient currently denies alcohol use for the past 2 months, presents the hospital with complaints of dizziness.? Patient is [place]-speaking only, history is obtained with the help of an ceramics teacher. Patient reports that his dizziness is intermittent, worse with walking, he denies any shortness of breath, no chest pain, no palpitations.? Reports noticing some bloody bowel movements on and off for the past few weeks, but reports that he has hemorrhoids.? denies using any aspirin, no NSAIDs.? Reports no abdominal pain, no nausea or vomiting, no diarrhea.? Patient denies any chest pain, no palpitations, no numbness tingling or weakness in extremities, no urinary symptoms and no lower extremity edema.? On arrival to the ED patient noticed to have tachycardia with a heart rate in creasing to 140s, patient received 5 mg of IV Lopressor, and received his home dose of metoprolol.? While in the ED patient observed to have 2 episodes of 3-5 second pauses of monitor . he was awake during these episodes and denies feeling anything when the happened.? Otherwise stable After patient developed this 2nd pause at lasted about 3 seconds, patient went into sinus bradycardia with heart rate in the 50s. Lab work otherwise significant for WBC count of 11, hemoglobin of 8.4 which dropped from 11.5 on 05/10, hematocrit 27.8, sodium 134, BNP of 56, troponin of 3.3, TSH of 1.65 UA negative, stool occult blood positive, Abdomen pelvic CT shows no acute findings in the abdomen and pelvis, diverticulosis with no diverticulitis, cholelithiasis, cystic structure versus dilated segment of pancreatic duct in the head and proximal body of the pancreas which was seen and previous imaging as well as a left renal cyst lesion # SSS - s/p PPM 06/19/22 with pacer functioning appropriately postop. will need outpatient follow up with thoracic surgery # paroxysmal AF with RVR s/p PM placement. apixaban held for anemia/FOBT+ can resume tomorrow per GI. will need follow up with cardiology. # acute/chronic normocytic anemia [Hb 11.5->8.4], FOBT+ transfused 1u pRBCs 06/19, GI consulted- s/p EGD/colonoscopy AVM, duodenitis, esophagitis, gastritis Colonoscopy Findings: polyps, internal hemorrhoids, diverticular disease, rectal mass -Await Pathology results -surgical referral, oncology referral will need MRI pelvis, CT A/P (done on admission) and chest, CEA level pending at discharge H/H has remained stable # incidental cystic structure and/or dilated segment of pancreatic duct in the head and proximal body, without significant change since prior imaging Mar 2021 - outpt MRI/MRCP was scheduled prior to admission # incidental small left renal lesion, not definitely cystic, cannot exclude solid mass - followed by Urology, 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 Discharge coordination time: Greater than 30 minutes Quality: Safe Use of Opioids Does Pt have an Active Cancer Diagnosis on the Problem List?: No Quality: Stroke Does the patient have a stroke diagnosis?: No Physical Exam Vital Signs: Vital Signs: Last Vital Signs Temp 97.4 F 06/22/22 11:17 Pulse 60 06/22/22 11:17 Resp 20 06/22/22 11:17 BP 121/59 L 06/22/22 11:17 Pulse Ox 98 06/22/22 11:17 O2 Del Method Room Air 06/22/22 11:17 O2 Flow Rate 2 06/20/22 07:32 BMI result Body Mass Index 28.3 Const: General: cooperative, comfortable, no acute distress, alert and awake Nutritional Appearance: average body habitus Orientation/consciousness: patient oriented x3 Chest: Other: right chest wall PM site clean and dry Resp: Effort & Inspection: normal respiratory effort and able to speak in complete sentences GI: Inspection: No distended Palpation (GI): Soft to palpation and nontender Neuro: General: patient oriented x3 and CN's II-XI intact bilaterally DS: Data Data Completed and Pending Pending studies at discharge: Pending at discharge 06/21/22 16:26 Surgical [PTH] Routine Labs on day of discharge: Laboratory Results - last 24 hr 06/22/22 06/22/22 06:52 06:52 WBC 13.5 H RBC 3.16 L Hgb 8.6 L Hct 28.0 L MCV 88.6 MCH 27.2 MCHC 30.7 L RDW 16.8 H Plt Count 280 MPV 10.9 Absolute Nucleated RBC 0.000 Nucleated RBC % (auto) 0.0 Sodium 141 Potassium 4.8 Chloride 106 Carbon Dioxide 26 Anion Gap 14 BUN 13 Creatinine 1.10 Estim Creat Clear Calc 63.3 Estimated GFR > 60 Random Glucose 88 Calcium 8.8 Discharge Plan Discharge Anticipated Discharge Date/Time: 06/22/22 12:21 Patient Disposition: Home, Self-Care Discharge Diagnosis: Rectal mass SSS s/p pacemaker placement Referrals: Nitza Abdul MD [Physician] - 1 Week (rectal mass found on colonoscopy ) Dayana Nolan CNA [Primary Care Provider] - 1 Week Sj Yi MD [Physician] - 1 Week (Rectal mass found on colonoscopy ) Manjinder Armstrong MD [Physician] - 2 Weeks (follow up for pacemaker placement ) Discharge Medications: New omeprazole 20 mg capsule,delayed release(DR/EC) 20 mg PO DAILY 30 Days Qty: 30 0RF Continued lisinopril 20 mg tablet 20 mg PO DAILY 90 Days Qty: 90 0RF Protocol: Hold for SBP< HOLD for SBP < : 90 metoprolol tartrate 100 mg tablet 100 mg PO BID 90 Days Qty: 180 0RF Protocol: Hold for SBP/HR < HOLD for SBP < : 90 HOLD for HR < : 60 aspirin 81 mg tablet,delayed release (DR/EC) 81 mg PO DAILY Held Eliquis 5 mg tablet 5 mg PO Q12H 90 Days Qty: 180 0RF Hold Instructions: Resume june 23 Discharge Orders: Discharge Order (Routine); Ordered 06/22/22 Ordered By: Stacie Silverman Activity on Discharge: As tolerated Stand Alone Forms: Patient Portal Discharge page Activity Restrictions/Additional Instructions: ACTIVITY: * ARM MOVEMENT RESTRICTIONS: No lifting your right arm over your head or behind your back, no pushing/pulling/lifting anything >10lb with your right arm for 6-8 weeks. This ensures the pacemaker wires stay in place and do not get pulled out accidentally. Make sure you are doing gentle range of motion exercises with the left arm (such as pendulum exercise) to make sure your el bow and shoulder do not get frozen up. * ARM SLING: You may take the sling off and leave it off. HOWEVER, if you are noticing a difficulty limiting your arm movement (as outlined above) then wear your sling during the day to make sure you are adhering to the restrictions above. * Ask your doctor when you can expect to return to work. INCISION CARE: * You may shower. * Do not submerge yourself in water (baths, pools, etc.) for 2 weeks. * Monitor the incision for increased redness, swelling, bruising, pain, open area, or drainage. OTHER PRECAUTIONS: * Before you receive any treatment, tell all healthcare providers (including your dentist) that you have a pacemaker. * You will be given an ID card that contains information about your pacemaker. Always carry this card with you. You can show this card if your pacemaker sets off a metal detector. You should also show it to avoid screening with a hand-held security wand. * Keep your cell phone away from your pacemaker. Do not carry the phone in your shirt pocket, even it if is turned off. * Avoid strong magnets. Examples are those used in MRI's or in hand-held se curity wands. * Avoid strong electrical young. Examples are those made by radio transmitting towers, [employer] radios, and heavy-duty electrical equipment. * Avoid leaning over the open curtis of a running car. A running engine creates an electrical field. Most household and yard appliances will not cause any problems. If you use any large power tools, such as an industrial research development director, talk with your doctor. WHEN TO CALL YOUR DOCTOR: Call your doctor immediately if you have any of the following: * Dizziness * Chest pain * Lack of energy * Fainting spells * Twitching chest muscles * Rapid pule or pounding heartbeat * Shortness of breath * Pain around your pacemaker * Fever above 100.4 F (38 C) or other signs of infection (redness, swelling, drainage, or warmth at the incision site). * Hiccups that will not stop FOLLOWUP APPOINTMENTS: * Call Dr. Armstrong's office (Thoracic Surgery) as soon as you get home to schedule a followup appointment for 1-2 weeks from now * Call your surgical services manager to make an appointment for the next couple weeks. Make regular follow-up appointments with your doctor. He or she will check the pacemaker to make sure it is working properly Care Plan Goals: see below Health Concerns: sick sinus syndrome s/p pacemaker placement Rectal mass Plan of Treatment: for pacemaker - will need to follow up with Dr. Armstrong - please call to schedule an appointment. see Pacemaker instructions above For rectal mass - will need CT scan of chest, MRI of abdomen for work up of mass - pathology results of biopsy and CEA levels are pending at the time of discharge. call PCP to schedule imaging studies. will also need to schedule an appointment with general surgeon and oncology - please call offices to schedule appointment. Can resume Eliquis, aspirin tomorrow Call to schedule follow up appointment with PCP Assessment: see discharge summary
--- NOTE | 2022-06-22 12:55 | MHC.CM.PN ---
Patient has been medically cleared for dc to home today, self care.
== END 2022-06-22 14:49 | disposition home or self-care (01) | DRG 242 ==
LOC: HO.ED 20:26 → HO.EDOVER 21:18 → HO.IMC 06-19 07:37
PROVIDERS: Family Medicine; Internal Medicine Gastroenterology; Nurse Practitioner Acute Care; Surgery; Admitting Provider Internal Medicine; Emergency Provider Student in an Organized Health Care Education/Training Program; Visit Provider Physician Assistant Medical
PROC: 0JH606Z Insertion of Pacemaker, Dual Chamber into Chest Subcutaneous Tissue and Fascia, Open Approach (ICD-10-PCS; principal; 2022-06-19 15:10)
PROC: 0DB98ZX Excision of Duodenum, Via Natural or Artificial Opening Endoscopic, Diagnostic (ICD-10-PCS; principal; 2022-06-21 14:40)
DX: I49.5 Sick sinus syndrome (principal); K29.71 Gastritis, unspecified, with bleeding; K31.811 Angiodysplasia of stomach and duodenum with bleeding; K29.81 Duodenitis with bleeding; K57.31 Diverticulosis of large intestine without perforation or abscess with bleeding; D62 Acute posthemorrhagic anemia; C64.2 Malignant neoplasm of left kidney, except renal pelvis; K63.5 Polyp of colon; K62.9 Disease of anus and rectum, unspecified; K64.8 Other hemorrhoids; D63.0 Anemia in neoplastic disease; I10 Essential (primary) hypertension; I48.0 Paroxysmal atrial fibrillation; E78.00 Pure hypercholesterolemia, unspecified; Z87.891 Personal history of nicotine dependence; Z79.01 Long term (current) use of anticoagulants; Z79.899 Other long term (current) drug therapy
CPT/HCPCS: 36415; 71045; 74177; 80048; 80053; 80307; 81003; 82272; 82378; 83880; 84443; 84484; 85025; 85027; 85610; 86850; 86900; 86901; 86923; 88305; 88341; 88342; 93005; 93306; 97161; 99285; C1785; C1892; C1898; J0690; J1100; J2370; J2405; J2795; J3010; P9016; Q9957; Q9967

== ENCOUNTER → 2022-06-27 09:21 | Outpatient (BNVA) | payer OTHER, SELFPAY | PROVIDERS: Visit Provider Surgery | DX: Z95.0 Presence of cardiac pacemaker (principal); K62.89 Other specified diseases of anus and rectum | CPT/HCPCS: 99212 ==

== ENCOUNTER 2022-07-06 12:18 | Outpatient (REF) | payer OTHER, SELFPAY ==
--- NOTE | ~2022-07-06 | CT_ITS ---
EXAMINATION: CT ABDOMEN AND PELVIS WITH CONTRAST CLINICAL INFORMATION: Abnormal pancreatic duct. COMPARISON: None available. TECHNIQUE: Multidetector volumetric images were obtained from the superior aspect of the liver through the pubic symphysis following administration 85 mL of Omnipaque 350 intravenous contrast. Sagittal and coronal reformatted images were obtained on the technologist's workstation. Oral contrast: No. This CT examination was performed using dose optimization techniques as appropriate, variously including the following: *Automated exposure control *Adjustment of mA and/or kV according to patient size (this includes techniques or standardized protocols for targeted exams where dose is matched to indication/reason for exam; i.e. extremities or head) *Use of iterative reconstruction technique DLP: 579 mGy-cm FINDINGS: LUNG BASES: There are mild atelectatic changes anterobasal segment left lower lobe. Heart size is normal. There are pacer electrodes in right atrium and right ventricle. LIVER, GALLBLADDER, AND BILIARY TREE: The liver is normal in size, shape, and attenuation. No focal hepatic lesion or biliary ductal dilatation is present. The gallbladder is unremarkable with no evidence of radiopaque gallstones, gallbladder wall thickening, or obvious pericholecystic inflammatory changes. PANCREAS: The pancreas is homogeneous in echotexture, normal size. The peripancreatic fat planes are preserved. The proximal pancreatic duct is mildly dilated measuring 1 cm. The distal pancreatic duct at the tail and the body is normal size. The dorsal and ventral pancreatic duct unite and open separately into the duodenum. The CBD open separately into the duodenum slightly superiorly. SPLEEN: Unremarkable. ADRENAL GLANDS: Unremarkable. KIDNEYS AND URETERS: The kidneys are lobulated in shape but normal size. There is a 1.7 x 1.4 cm partially exophytic heterogeneous lesion, measuring 75 Hounsfield units. A smaller exophytic lesion measuring 1 cm measures 23 Hounsfield units. BLADDER: The bladder is nondistended. Mild bladder wall thickening. GASTROINTESTINAL TRACT: There is scattered stool, diverticula and gas seen throughout the colon without distention. Contrast opacified small bowel loops are nondilated and unremarkable. No free air or free fluid seen. ABDOMINAL WALL: No significant hernia is appreciated. LYMPH NODES: Normal. VASCULAR: Unremarkable. PELVIC VISCERA: Unremarkable. OSSEOUS STRUCTURES: No aggressive lytic or sclerotic process seen. There are mild degenerative disc changes L3-L4, L4-L5 disc levels with moderate ventral spondylosis throughout lumbar spine. CT/CT abdomen pelvis w IV con IMPRESSION: Focal dilatation of proximal pancreatic duct likely confluence of dorsal and ventral pancreatic duct which have direct entry into the duodenum. A intraductal cystic neoplasm such as IPMN cannot be excluded. Recommend MRI pancreas with and without contrast. The CBD opens separately into the duodenum. The distal and mid pancreatic duct is normal. The pancreas itself is normal. The CBD is normal caliber. No pancreatic lesions seen. Two complex partially exophytic cysts in the midpole left kidney with no hydronephrosis. Fleischner guidelines were followed.
[2022-07-06] MEDS: Barium Sulfate Oral (Vanilla) 450 ML ORAL.SUSP 900 ML PO (14:50)
[2022-07-06] MEDS: iohexoL 350 MG/ML 100 ML INFUS..BTL IV (14:51)
== END 2022-07-06 12:19 | disposition home or self-care (01) ==
LOC: HO.CT 12:18
PROVIDERS: Visit Provider Internal Medicine
DX: Q45.3 Other congenital malformations of pancreas and pancreatic duct (principal)
CPT/HCPCS: 74177; Q9967

== ENCOUNTER → 2022-07-17 14:18 | Outpatient (BNVA) | payer OTHER, SELFPAY | PROVIDERS: Visit Provider Internal Medicine | DX: Z45.018 Encounter for adjustment and management of other part of cardiac pacemaker (principal); I49.5 Sick sinus syndrome; D64.9 Anemia, unspecified | CPT/HCPCS: 93280; 99212 ==

== ENCOUNTER → 2022-08-21 11:40 | Outpatient (BNV) | payer OTHER, SELFPAY | PROVIDERS: PCP Surgery; Visit Provider Internal Medicine Medical Oncology | DX: C20 Malignant neoplasm of rectum (principal); Z92.3 Personal history of irradiation | CPT/HCPCS: 99204; 99213; 99214 ==

== ENCOUNTER 2022-09-04 10:34 | Outpatient (AMB) | payer OTHER, SELFPAY ==
--- NOTE | 2022-09-04 10:45 | MHC.OFFVIS ---
Intake Vital Signs 09/04/22 10:49 Height 5 ft 10 in Weight 202 lb BMI 29.0 BP 143/67 H Blood Pressure Location Rt brachial Position Sitting Pulse 61 Intake Visit Reasons: Rectal mass Intake Note: Patient here for rectal mass. Unsure how long it has been present. Reports some bleeding after BM. Recent colonoscopy in June. 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 No pacemaker issues. Patient completed an MRI of his pelvis which demonstrated a localized approximately T2 mid rectal lesion. No evidence of adenopathy. Patient is tentatively scheduled for a PET scan later this week. [facility] Medical History (Updated 09/04/22 @ 10:48 by KENIA Matias) Aftercare following left shoulder joint replacement surgery Atrial fibrillation Borderline hyperlipidemia Cancer of kidney EtOH dependence High cholesterol HTN (hypertension) Hypertension Inhibited sex excitement Mild cognitive impairment OA (osteoarthritis) Obesity Pacemaker Family History Mother Heart problem Social History Household Members: Spouse Housing: House Do you presently have visiting nurse or other home services: No Alcohol intake: current Alcohol intake frequency: former alcohol drinker Alcohol type: beer Patient Tobacco Use Status: Former Tobacco user service: Yes Physical Exam Vital Signs: Last Vital Signs Pulse 61 09/04/22 10:49 BP 143/67 H 09/04/22 10:49 BMI result Body Mass Index 29.0 Chest Other: Pacemaker pocket site clean dry and intact healing uneventfully. GI Other: Abdomen soft, corpulent, benign. Rectal exam demonstrated no obvious palpable lesion in the rectum. Assessment & Plan Assessment & Plan (1) Malignant neoplasm of rectum: Code(s): C20 - Malignant neoplasm of rectum (2) Atrial fibrillation with rapid ventricular response: Code(s): I48.91 - Unspecified atrial fibrillation Plan I reviewed the patient that he will be presented at the tumor Board Conference 09/07. In all probability, patient will undergo neoadjuvant radiation therapy, be re-staged, and then surgical intervention if indicated, will be undertaken after this. I will discuss in more detail the surgical procedure involved when he is seen post radiation therapy completion. Coding Level of Care Code Est Pt Level 4 (36928) Global (91840) Diagnoses Malignant neoplasm of rectum C20 Atrial fibrillation with rapid ventricular response I48.91
[2022-09-04 10:49] VITALS: BP 143/67; PULSE 61; BMI 29.0
== END 2022-09-04 10:56 | disposition home or self-care (01) ==
PROVIDERS: PCP Surgery; Referring Provider Internal Medicine Medical Oncology; Visit Provider Surgery
DX: C20 Malignant neoplasm of rectum (principal); I48.91 Unspecified atrial fibrillation
CPT/HCPCS: 99024; 99214

== ENCOUNTER → 2022-09-04 10:34 | Outpatient (BNVA) | payer OTHER, SELFPAY | PROVIDERS: PCP Surgery; Referring Provider Internal Medicine Medical Oncology; Visit Provider Surgery | DX: C20 Malignant neoplasm of rectum (principal); I48.91 Unspecified atrial fibrillation | CPT/HCPCS: 99212 ==

== ENCOUNTER → 2022-09-25 23:59 | Outpatient (BNV) | payer OTHER, SELFPAY ==
--- NOTE | 2022-10-01 10:52 | A.OFFVIS_ITS ---
Intake Intake Visit Reasons: remote pacer monitoring- [facility] Allergies No Known Allergies [NKA] Allergy (Mild, Verified 09/29/22 15:04) NOT APPLICABLE PFSH Medical History Aftercare following left shoulder joint replacement surgery Atrial fibrillation Borderline hyperlipidemia Cancer of kidney EtOH dependence High cholesterol HTN (hypertension) Hypertension Inhibited sex excitement Mild cognitive impairment OA (osteoarthritis) Obesity Pacemaker Family History Mother Heart problem Social History Household Members: Spouse Housing: House Do you presently have visiting nurse or other home services: No Alcohol intake: current Alcohol intake frequency: former alcohol drinker Alcohol type: beer Patient Tobacco Use Status: Former Tobacco user Use of substances other than those prescribed or required for medical reasons: No Do you feel safe in your current relationship?: Yes Do you have thoughts of harming others: None service: Yes Office Procedures Cardiac Device Check Cardiac Device Check [id number] Cardiac Device Interrogation, pacemaker Procedure code (CPT) selection complete Cardiac Device Check Cardiac Device Check Details: Date of service- 09/25/2022 ; Battery life >9 years; normal lead parameters; AP 32%; MAINTENANCE SPECIALIST <1%; Episodes of AFib/RVR noted; burden 2.6%. Overall normal device function. [id number] Cardiac Device Interrogation, pacemaker Procedure code (CPT) selection complete Assessment & Plan Assessment & Plan (1) Atrial fibrillation with rapid ventricular response: Code(s): I48.91 - Unspecified atrial fibrillation (2) Sinus bradycardia: Code(s): R00.1 - Bradycardia, unspecified Coding Level of Care Code Procedure Only Diagnoses Atrial fibrillation with rapid ventricular response I48.91 Sinus bradycardia R00.1 CPT Codes Cardiac Device Check - Cardiac Device 12: [id number] Cardiac Device Interrogation, pacemaker ([id number]) Cardiac Device Check - Cardiac Device 12: [id number] Cardiac Device Interrogation, pacemaker ([id number])
== END ==
PROVIDERS: PCP Surgery; Visit Provider Internal Medicine
DX: I48.91 Unspecified atrial fibrillation (principal); R00.1 Bradycardia, unspecified; Z95.0 Presence of cardiac pacemaker
CPT/HCPCS: 93294

== ENCOUNTER 2022-10-16 19:42 | Emergency (ER) | payer OTHER, SELFPAY ==
[2022-10-16] VITALS (9 sets, daily range): BP systolic 124–144; BP diastolic 41–64; PULSE 65–76; RESP 12–17; TEMP 36.9–37.1; O2SAT 93–99; BMI 29.4
--- NOTE | 2022-10-16 | ECG_ITS ---
Test Reason : dizziness Blood Pressure : / mmHG Vent. Rate : 069 BPM Atrial Rate : 069 BPM P-R Int : 150 ms QRS Dur : 088 ms QT Int : 400 ms P-R-T Axes : 046 015 033 degrees QTc Int : 428 ms Normal sinus rhythm Normal ECG When compared with ECG of 18-JUN-2022 22:03, No significant change was found Referred By: Generic ED Physician Electronically Signed By:MAYKEL PURCELL
--- NOTE | 2022-10-16 20:08 | MHC.EDTECH ---
This tech assumed care of this pt upon arrival. EKG and bloodwork completed, pt placed on medical billing coordinator. Red wristband and red fall precautions sock put on pt
[2022-10-16 20:13] LABS: Hematocrit 23.8 % (42.0-52.0); Hemoglobin 7.1 g/dl (14.0-18.0); Mean Corpuscular HGB Conc 29.8 g/dl (31.0-36.0); Mean Corpuscular Hemoglobin 23.2 pg (27.0-33.0); Mean Corpuscular Volume 77.8 fL (80.0-98.0); Mean Platelet Volume 9.8 fL (9.4-12.4); Platelet Count 247 X10*3/uL (160-400); Red Blood Count 3.06 X10*6/uL (4.60-5.80); Red Cell Distribution Width 19.4 % (11.0-16.0); White Blood Count 11.1 X10*3/uL (4.8-10.8)
[2022-10-16 20:22] LABS: Alanine Aminotransferase 11 U/L (0-40); Albumin Level 3.5 g/dL (3.5-5.0); Alkaline Phosphatase 102 U/L (39-117); Anion Gap 11 (12-20); Aspartate Amino Transferase 16 U/L (5-37); Bilirubin Total 0.5 mg/dL (0.0-1.0); Blood Urea Nitrogen 21 mg/dL (9-16); Calcium 8.5 mg/dL (8.4-10.2); Carbon Dioxide 22 mmol/L (22-29); Chloride 103 mmol/L (96-108); Creatinine Clr Calc Pharmacy 58.5; Estimated Glomerular Filt Rate 57; Glucose Random 91 mg/dL (60-115); Potassium 4.6 mmol/L (3.3-5.1); Sodium 131 mmol/L (135-145); Total Protein 6.8 g/dL (6.5-8.0)
--- NOTE | 2022-10-16 21:05 | ED.DIZZY ---
HPI - Dizziness General Chief Complaint: Dizziness Stated Complaint: dizzy, no LOC Time Seen by Provider: 10/16/22 20:18 Source: patient Mode of arrival: EMS History of Present Illness HPI Narrative: Patient is a 77-year-old male who presents emergency department for evaluation of a dizziness episode. Reportedly he was sitting down after coming home from the store when he suddenly became dizziness and had blurred vision. Has difficulty describing the dizziness, does not described as a room spinning sensation or lightheadedness. There is no fall, head strike, loss of consciousness. At this time he denies any complaints. Denies headache, neck pain, vision changes, dizziness, lightheadedness, chest pain, shortness of breath, difficulty breathing, changes in speech, numbness or tingling of the extremities, generalized weakness, bloody or black stools Related Data Home Medications Medication Instructions Recorded Confirmed apixaban 5 mg tablet (Eliquis) 5 mg PO BID 06/27/22 09/04/22 Previous Rx's Medication Instructions Recorded lisinopril 20 mg tablet 20 mg PO DAILY 90 days #90 tabs 06/08/22 metoprolol tartrate 100 mg tablet 100 mg PO BID 90 days #180 tabs 06/08/22 capecitabine 500 mg tablet 1,500 mg PO BID #120 tabs 09/11/22 ondansetron 8 mg disintegrating 8 mg PO Q12H #60 tabs 09/29/22 tablet Allergies Allergy/AdvReac Type Severity Reaction Status Date / Time No Known Allergies [NKA] Allergy Mild NOT Verified 10/16/22 19:54 APPLICABLE Review of Systems Review of Systems: Yes all other systems are reviewed and are negative PMFSH Past Medical History Attestation statement: The following information was validated with the patient. Source: old records reviewed Medical History Aftercare following left shoulder joint replacement surgery Atrial fibrillation Borderline hyperlipidemia Cancer of kidney EtOH dependence High cholesterol HTN (hypertension) Hypertension Inhibited sex excitement Mild cognitive impairment OA (osteoarthritis) Obesity Pacemaker Family History Family History Mother Heart problem Social History Social History Household Members: Spouse Housing: House Do you presently have visiting nurse or other home services: No Alcohol intake: never Patient Tobacco Use Status: Former Tobacco user Smoked in Last 30 Days: No Use of substances other than those prescribed or required for medical reasons: No Advance Directives: No Advance Directives Information Provided: No service: Yes Physical Exam Vital Signs: Vital Signs: Last Vital Signs Temp 98.5 F 10/16/22 23:23 Pulse 68 10/16/22 23:23 Resp 16 10/16/22 23:23 BP 144/59 H 10/16/22 23:23 Pulse Ox 96 10/16/22 22:31 O2 Del Method Room Air 10/16/22 22:31 BMI result Body Mass Index 29.4 Appearance: Alert.?Oriented to person, place and time. No acute distress.?Normal affect. Eyes: Pupils equal, round and reactive to light.? EOMI. No nystagmus. ENT: Pharynx normal.?? Neck: Normal inspection.? Neck supple.?? CVS: Heart sounds normal. Normal heart rate and rhythm.? Pulses normal.?? Respiratory: No respiratory distress.? Lung sounds clear to auscultation bilaterally?? Abdomen: Soft and non-tender. Normoactive bowel sounds. Skin: Skin warm and dry.? Normal skin color.? Extremities: No lower extremity edema.? No calf ttp? Neuro: Moves all extremities spontaneously. Sensation intact bilaterally. CN II-XII intact. No focal neuro deficits. Ambulates with normal steady gait. Course Reevaluation(s) Reevaluation #1: CBC revealing a microcytic anemia with drop from baseline, current hemoglobin 7.1 and hematocrit 23.8, we discussed indications for blood transfusion, potential complications, consent was obtained and he is agreeable for transfusion. Is hyponatremic with a sodium of 131 lb with baseline renal function. Troponin <2.7, EKG revealing a normal sinus rhythm with ventricular rate of 69, normal ID interval, QTC 428, no ST elevation, no ST depression, no T-wave inversion. I discussed admission with the patient for further evaluation of his dizziness episode, as it would seem less likely that episodic brief episodes of dizziness to the from the anemia alone, discussed additional etiologies including hernia pathology. 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 Discussed with patient he would be leaving against medical advice, he verbalized understanding of this as well as potential complications which may very well be life threatening. Time: 21:28 Medications Administered Discontinued Medications Generic Name Dose Route Start Last Admin Trade Name Jay Jay PRN Reason Stop Dose Admin Sodium Chloride 100 mls @ 100 mls/hr 10/16/22 21:29 10/16/22 23:08 Ns IV 10/16/22 22:28 100 mls/hr ONCE ONE Administration Medical Decision Making Medical Decision Making [facility] Narrative: Patient is a 77-year-old male with past medical history of atrial fibrillation on a anticoagulation, hyperlipidemia, hypertension, osteoarthritis, obesity, rectal carcinoma for which he has recently began radiation and oral chemotherapy who presents to the emergency department for evaluation of brief episode of dizziness which has resolved. Physical examination is without any focal neurological deficits, he otherwise appears well, no respiratory distress. Will obtain CBC to evaluate for leukocytosis/ anemia, CMP and lipase to evaluate for abnormal electrolytes /abnormal renal function/ abnormal hepatic/biliary function, EKG and troponin to evaluate for ischemia/ACS. Differential Diagnosis Differential Diagnoses: The differential diagnosis associated with the presentation includes (Arrhythmia, ACS, PE, BPPV) Admission/Observation Consideration of admission/observation: Escalation of care including admission/observation considered (I considered admission for dizziness, see course narrative for further detail) Lab Data MDM Lab Attestation statement: I reviewed the patient's lab results. 10/16/22 20:00 10/16/22 20:00 Labs: Lab Results 10/16/22 10/16/22 10/16/22 Range/Units 20:00 20:00 20:00 WBC 11.1 H (4.8-10.8) X10*3/uL RBC 3.06 L (4.60-5.80) X10*6/uL Hgb 7.1 L (14.0-18.0) g/dl Hct 23.8 L (42.0-52.0) % MCV 77.8 L (80.0-98.0) fL MCH 23.2 L (27.0-33.0) pg MCHC 29.8 L (31.0-36.0) g/dl RDW 19.4 H (11.0-16.0) % Plt Count 247 (160-400) X10*3/uL MPV 9.8 (9.4-12.4) fL Absolute Nucleated RBC 0.000 (0.0-0.012) X10*3/uL Nucleated RBC % (auto) 0.0 (0.0-0.2) /100WBC Sodium 131 L (135-145) mmol/L Potassium 4.6 (3.3-5.1) mmol/L Chloride 103 (96-108) mmol/L Carbon Dioxide 22 (22-29) mmol/L Anion Gap 11 L (12-20) BUN 21 H (9-16) mg/dL Creatinine 1.23 (0.5-1.4) mg/dL Estim Creat Clear Calc 58.5 Estimated GFR 57 Random Glucose 91 (60-115) mg/dL Calcium 8.5 D (8.4-10.2) mg/dL Total Bilirubin 0.5 (0.0-1.0) mg/dL AST 16 (5-37) U/L ALT 11 (0-40) U/L Alkaline Phosphatase 102 (39-117) U/L Troponin I High Sens < 2.7 (<3.5-35.0) ng/L Total Protein 6.8 (6.5-8.0) g/dL Albumin 3.5 (3.5-5.0) g/dL Blood Type Antibody Screen Crossmatch 10/16/22 Range/Units 21:56 WBC (4.8-10.8) X10*3/uL RBC (4.60-5.80) X10*6/uL Hgb (14.0-18.0) g/dl Hct (42.0-52.0) % MCV (80.0-98.0) fL MCH (27.0-33.0) pg MCHC (31.0-36.0) g/dl RDW (11.0-16.0) % Plt Count (160-400) X10*3/uL MPV (9.4-12.4) fL Absolute Nucleated RBC (0.0-0.012) X10*3/uL Nucleated RBC % (auto) (0.0-0.2) /100WBC Sodium (135-145) mmol/L Potassium (3.3-5.1) mmol/L Chloride (96-108) mmol/L Carbon Dioxide (22-29) mmol/L Anion Gap (12-20) BUN (9-16) mg/dL Creatinine (0.5-1.4) mg/dL Estim Creat Clear Calc Estimated GFR Random Glucose (60-115) mg/dL Calcium (8.4-10.2) mg/dL Total Bilirubin (0.0-1.0) mg/dL AST (5-37) U/L ALT (0-40) U/L Alkaline Phosphatase (39-117) U/L Troponin I High Sens (<3.5-35.0) ng/L Total Protein (6.5-8.0) g/dL Albumin (3.5-5.0) g/dL Blood Type A Positive Antibody Screen NEGATIVE Crossmatch See Detail Independent Interpretation I performed an independent interpretation of an: EKG (As noted in course) Discharge Plan Discharge Clinical Impression: Microcytic hypochromic anemia, Dizziness, Left against medical advice Patient Disposition: Left Against Medical Advice Additional Instructions: As discussed, it was recommended that you stay in the hospital for admission you however declined. Please contact your doctors and arrange for follow-up Return back to emergency department any new or worsening symptoms or concerns Prescriptions: No Action lisinopril 20 mg tablet 20 mg PO DAILY 90 Days Qty: 90 0RF Protocol: Hold for SBP< HOLD for SBP < : 90 metoprolol tartrate 100 mg tablet 100 mg PO BID 90 Days Qty: 180 0RF Protocol: Hold for SBP/HR < HOLD for SBP < : 90 HOLD for HR < : 60 capecitabine 500 mg Tablet 1,500 mg PO BID Qty: 120 0RF Rx Instructions: Take 1500 mg b.i.d. days 1-5, (weekends off) through radiation for 8 week. Must administer with water 30 minutes after a meal ondansetron 8 mg Tablet,Disintegrating 8 mg PO Q12H Qty: 60 4RF Eliquis 5 mg tablet 5 mg PO BID Referrals: Physician,Unknown J [Primary Care Provider] - Stand Alone Forms: Against Medical Advice
[2022-10-16 21:15] LABS: Troponin-I High Sensitivity < 2.7 ng/L (<3.5-35.0)
--- NOTE | 2022-10-16 23:14 | PC.NURSE ---
blood transfusion started at 23:08. verified with second RN Ale. pt tolerating well. on laboratory monitor no apparent distress and no current complaints.
[2022-10-17 02:00] VITALS: BP 125/59; PULSE 70; RESP 15; TEMP 36.9
== END 2022-10-17 02:14 | disposition left against medical advice (07) ==
PROVIDERS: Emergency Provider Emergency Medicine
DX: D50.9 Iron deficiency anemia, unspecified (principal); R42 Dizziness and giddiness; R11.2 Nausea with vomiting, unspecified; Z79.899 Other long term (current) drug therapy
CPT/HCPCS: 36415; 36430; 80053; 84484; 85027; 86850; 86900; 86901; 86923; 93005; 96360; 96361; 99285; P9016

== ENCOUNTER 2022-10-26 13:44 | Outpatient (AMB) | payer OTHER, SELFPAY ==
--- NOTE | 2022-10-26 14:02 | A.OFFVIS_ITS ---
Intake Vital Signs 10/26/22 14:03 Height 5 ft 9 in Weight 200 lb 9.93 oz BMI 29.6 BP 120/64 Blood Pressure Location Lt brachial Position Sitting Pulse 63 Pulse Source Pulse Oximeter Intake Visit Reasons: 3 month follow up Intake Note: 3 month f/u patient felling some palpitations Instructional Technology Director Required: Yes Instructional Technology Director Name: nicci wood [id number] Allergies No Known Allergies [NKA] Allergy (Mild, Verified 10/26/22 14:09) NOT APPLICABLE Medication List - Last Reconciled 10/26/22 by Divina Hassan, LOCOMOTIVE REPAIRER [employer]-C apixaban (Eliquis) 5 mg PO BID capecitabine 1,500 mg (3 x 500 mg) PO BID lisinopril 20 mg See Protocol PO DAILY 90 days metoprolol tartrate 100 mg See Protocol PO BID 90 days ondansetron 8 mg PO Q12H PFSH Medical History Aftercare following left shoulder joint replacement surgery Pacemaker OA (osteoarthritis) Borderline hyperlipidemia Obesity HTN (hypertension) EtOH dependence Mild cognitive impairment Inhibited sex excitement Atrial fibrillation Cancer of kidney High cholesterol Hypertension Family History Mother Heart problem Social History Household Members: Spouse Housing: House Do you presently have visiting nurse or other home services: No Alcohol intake: never Patient Tobacco Use Status: Former Tobacco user service: Yes Review of Systems Const All systems reviewed & are unremarkable except as noted in HPI and below ENT Denies dizziness Card Denies chest pain, Denies chest pain at rest, Denies chest pain with activity, Denies rapid heart rate, Denies pedal edema, Denies edema, Denies leg edema, Denies lightheadedness, Denies palpitations, Denies dyspnea, Denies dyspnea on exertion and Denies orthopnea Resp Denies cough, Denies dyspnea and Denies dyspnea on exertion GI Details: Small amount of blood at times when he has a bowel movement Denies hematochezia and Denies change in stool character Musc Denies abnormal gait, Denies limited range of motion, Denies muscle cramps, Denies muscle weakness, Denies numbness, Denies radiating pain into limb, Denies stiffness and Denies tingling Neuro Denies abnormal gait, Denies dizziness, Denies numbness and Denies tingling Endo Denies palpitations Physical Exam Vital Signs: Last Vital Signs Pulse 63 10/26/22 14:03 BP 120/64 10/26/22 14:03 BMI result Body Mass Index 29.6 Const General: cooperative, healthy appearing, comfortable and no acute distress Orientation/consciousness: patient oriented x3 Neck Neck: Yes normal visual inspection Resp Effort & Inspection: normal respiratory effort Auscultation: clear to auscultation bilaterally, no crackles, no rales, no rhonchi and no wheezes Cardio Jugular venous distension: no JVD Rate: regular rate Rhythm: regular rhythm Heart sounds: S1 normal heart sound present, S2 normal heart sound present, no murmurs and no rubs Neuro General: patient oriented x3 Extrem General: Yes normal to inspection Psych Appearance: grossly normal Mental Status: mental status grossly normal Speech and movement: Normal speech and movement present Assessment & Plan Assessment & Plan (1) PAF (paroxysmal atrial fibrillation): Code(s): I48.0 - Paroxysmal atrial fibrillation (2) Chronic anticoagulation: Code(s): Z79.01 - half-way (current) use of anticoagulants (3) Malignant neoplasm of rectum: Code(s): C20 - Malignant neoplasm of rectum (4) Normocytic anemia: Code(s): D64.9 - Anemia, unspecified Coding Level of Care Code Est Pt Level 4 (04807) Diagnoses PAF (paroxysmal atrial fibrillation) I48.0 Chronic anticoagulation Z79.01 Malignant neoplasm of rectum C20 Normocytic anemia D64.9 Time Spent (min) 26
[2022-10-26 14:03] VITALS: BP 120/64; PULSE 63; BMI 29.6
== END 2022-10-26 14:29 | disposition home or self-care (01) ==
PROVIDERS: Visit Provider Nurse Practitioner Family
DX: I48.0 Paroxysmal atrial fibrillation (principal); Z79.01 Long term (current) use of anticoagulants; C20 Malignant neoplasm of rectum; D64.9 Anemia, unspecified
CPT/HCPCS: 99214

== ENCOUNTER → 2022-10-26 13:44 | Outpatient (BNVA) | payer OTHER, SELFPAY | PROVIDERS: Visit Provider Nurse Practitioner Family | DX: I48.0 Paroxysmal atrial fibrillation (principal); D64.9 Anemia, unspecified; C20 Malignant neoplasm of rectum; Z79.01 Long term (current) use of anticoagulants; Z79.899 Other long term (current) drug therapy | CPT/HCPCS: 99212 ==

== ENCOUNTER 2022-11-04 17:52 | Emergency (ER) | payer OTHER, SELFPAY ==
--- NOTE | 2022-11-04 | ECG_ITS ---
Test Reason : DIZZINESS Blood Pressure : / mmHG Vent. Rate : 060 BPM Atrial Rate : 060 BPM P-R Int : 160 ms QRS Dur : 092 ms QT Int : 404 ms P-R-T Axes : 000 020 041 degrees QTc Int : 404 ms Atrial-paced rhythm Abnormal ECG When compared with ECG of 16-OCT-2022 19:48, Electronic atrial pacemaker has replaced Sinus rhythm Referred By: Generic ED Physician Electronically Signed By:MAYKEL PURCELL
[2022-11-04 17:59] VITALS: BP 112/38; BP 136/80; PULSE 60; PULSE 62; RESP 16; TEMP 36.6; O2SAT 100; O2SAT 99; BMI 27.2
[2022-11-04 18:27] LABS: Glucose, Whole Blood 132 mg/dL (60-115)
[2022-11-04 18:45] VITALS: BP 120/47; PULSE 60; RESP 12; O2SAT 98
--- NOTE | 2022-11-04 19:01 | PC.NURSE ---
pt brought in by ambulance with c/o one episode of dizziness after sitting down to eat dinner this evening. he has hx of colon cancer, started getting radiation M-F for one month now and has 2 more weeks of tx. pt relates the dizziness to his radiation txs. he denies dizziness/blurry vision/menjivar/pain at this time. pt has pacemaker that was placed earlier this year. pt also on eliquis.
[2022-11-04 19:50] VITALS: BP 122/55; PULSE 60; RESP 18; TEMP 36.8; O2SAT 100
[2022-11-04 19:51] LABS: MANUAL DIFF FLAG NO
--- NOTE | 2022-11-04 19:51 | MHC.EDTECH ---
This tech assumed care of patient at 1900,vitals and rounds completed. Labs were obtained and sent to lab. Call pate within reach
[2022-11-04 19:53] LABS: Basophils Percent Auto 0.4 % (0-2); Eosinophils Absolute Auto 0.2 X10*3/uL (0.0-0.4); Eosinophils Percent Auto 2.5 % (0-4); Hematocrit 28.6 % (42.0-52.0); Hemoglobin 9.3 g/dl (14.0-18.0); Imm Gran Abs Auto 0.08 X10*3/uL (0.00-0.03); Lymphocytes Absolute Auto 0.9 X10*3/uL (1.2-4.9); Lymphocytes Percent Auto 11.7 % (20-40); Mean Corpuscular HGB Conc 32.5 g/dl (31.0-36.0); Mean Corpuscular Hemoglobin 29.2 pg (27.0-33.0); Mean Corpuscular Volume 89.9 fL (80.0-98.0); Mean Platelet Volume 9.6 fL (9.4-12.4); Monocytes Absolute Auto 0.8 X10*3/uL (0.1-1.2); Monocytes Percent Auto 10.6 % (2-11); Neutrophils Absolute Auto 5.9 x10*3/uL (2.0-8.3); Neutrophils Percent Auto 73.8 % (45-73); Platelet Count 115 X10*3/uL (160-400); Red Blood Count 3.18 X10*6/uL (4.60-5.80); Red Cell Distribution Width 25.2 % (11.0-16.0); White Blood Count 7.9 X10*3/uL (4.8-10.8)
[2022-11-04 20:09] LABS: Alanine Aminotransferase 11 U/L (0-40); Albumin Level 3.7 g/dL (3.5-5.0); Alkaline Phosphatase 101 U/L (39-117); Anion Gap 13 (12-20); Aspartate Amino Transferase 13 U/L (5-37); Bilirubin Total 0.7 mg/dL (0.0-1.0); Blood Urea Nitrogen 41 mg/dL (9-16); Calcium 8.6 mg/dL (8.4-10.2); Carbon Dioxide 15 mmol/L (22-29); Chloride 112 mmol/L (96-108); Creatinine Clr Calc Pharmacy 35.4; Estimated Glomerular Filt Rate 36; Glucose Random 108 mg/dL (60-115); Potassium 4.1 mmol/L (3.3-5.1); Sodium 136 mmol/L (135-145); Total Protein 6.8 g/dL (6.5-8.0)
--- NOTE | 2022-11-04 20:44 | PC.NURSE ---
Assumed care of pt at 1900. Pt alert and oriented. Vitals signs stable. Cardiac monitoring in place. Labs drawn by process control techquirino Caicedo. Attempted to place IV line twice. Requested charge nurse assistance
--- NOTE | 2022-11-04 20:45 | ED_ITS ---
HPI - General Adult General Chief complaint: Dizziness Stated complaint: dizziness, per ems Time Seen by Provider: 11/04/22 19:48 Source: patient, RN notes reviewed, old records reviewed and child care assistant Mode of arrival: EMS Limitations: language barrier History of Present Illness HPI narrative: 77-year-old male with past medical history significant for rectal CA followed by Dr Gaxiola, paroxysmal AFib on Eliquis presents for evaluation of dizziness. Patient reports that he gets radiation Sunday through Sunday with Dr. Gaxiola. He reports that he was told the fever has any symptoms needs to go to the hospital to be ?checked out. ? Patient reports that he had an episode of dizziness that lasted about 20 minutes after he was sitting down and eating On further history it sounds that the patient is describing lightheadedness as he felt like he was weak and going to pass out He denies having had any chest pain, shortness of breath, palpitations His symptoms worsened when he stood up. The time my evaluation he is currently asymptomatic and no longer feeling dizzy Related Data Home Medications Medication Instructions Recorded Confirmed apixaban 5 mg tablet (Eliquis) 5 mg PO BID 06/27/22 10/27/22 Previous Rx's Medication Instructions Recorded lisinopril 20 mg tablet 20 mg PO DAILY 90 days #90 tabs 06/08/22 metoprolol tartrate 100 mg tablet 100 mg PO BID 90 days #180 tabs 06/08/22 capecitabine 500 mg tablet 1,500 mg (3 x 500 mg) PO BID #120 09/11/22 tabs ondansetron 8 mg disintegrating 8 mg PO Q12H #60 tabs 09/29/22 tablet Allergies Allergy/AdvReac Type Severity Reaction Status Date / Time No Known Allergies [NKA] Allergy Mild NOT Verified 11/04/22 18:18 APPLICABLE Review of Systems 2 Constitutional: Constitutional: Reports as per HPI, Denies chills, Denies fever(s) and Denies headache(s) ENT: Denies headache(s) Cardiovascular: Cardiovascular: Denies chest pain and Denies dyspnea Respiratory: Respiratory: Denies cough and Denies dyspnea Gastrointestinal: Gastrointestinal: Denies abdominal pain, Denies constipation and Denies vomiting Genitourinary: Genitourinary: Denies difficulty urinating and Denies dysuria Neurologic: Denies headache(s) and Denies focal weakness PMFSH Past Medical History Medical History Aftercare following left shoulder joint replacement surgery Pacemaker OA (osteoarthritis) Borderline hyperlipidemia Obesity HTN (hypertension) EtOH dependence Mild cognitive impairment Inhibited sex excitement Atrial fibrillation Cancer of kidney High cholesterol Hypertension Family History Family History Mother Heart problem Social History Social History (Updated 10/27/22 @ 13:25 by Jumana Bonilla) Household Members: Spouse Housing: House Do you presently have visiting nurse or other home services: No Alcohol intake: never Patient Tobacco Use Status: Former Tobacco user Advance Directives: No Advance Directives Information Provided: No service: Yes Physical Exam ED Vital Signs: Vital Signs - 24 hr 11/04/22 17:59 11/04/22 18:45 11/04/22 19:50 Temperature 97.8 F 98.2 F Pulse Rate 62 60 60 Respiratory Rate 16 12 18 Blood Pressure 112/38 L 120/47 L 122/55 L Pulse Oximetry 100 98 100 Oxygen Delivery Method Room Air Room Air Room Air BMI result Body Mass Index 27.2 Const General: comfortable, no acute distress, alert and awake Nutritional Appearance: well nourished Orientation/consciousness: patient oriented x3 HENMT Head: Yes normocephalic and Yes atraumatic Eyes Eyelids: Yes eyelids normal Conjunctivae: conjunctivae normal Sclerae: sclerae normal Corneas: corneas normal Pupils: Equal, round and reactive pupils present EOM: EOMs intact bilaterally Neck Neck: Yes full ROM Resp Effort & Inspection: normal respiratory effort, able to speak in complete sentences and not labored Cardio Rate: regular rate Rhythm: regular rhythm GI Inspection: No distended Palpation (GI): Soft to palpation, not firm, nontender, no guarding and not rigid Skin General skin exam: no rashes or lesions noted and elasticity normal Neuro General: patient oriented x3 Cranial nerves: Yes Equal, round and reactive pupils present and Yes Bilaterally intact EOM present Cognition (Neuro): normal cognition Extrem Other: Moving all extremities well without any obvious deformities Course Reevaluation(s) Reevaluation #1: Patient had 2 attempts at IV that were unsuccessful. He adamantly refused any further attempts with nursing or myself using the ultrasound. The patient is not vomiting or having diarrhea, I feel is appropriate to discharge the patient and he may hydrate orally. He is comfortable with this plan. He is aware that he declined IV fluids despite the mild ANIL. Patient will repeat labs next week to monitor his ANIL but will hydrate aggressively at home Time: 21:00 Medical Decision Making Medical Decision Making [facility] Narrative: 77-year-old male presents for evaluation of an episode of lightheadedness. His symptoms have resolved he never had any chest pain. He does receive radiation Sunday through Sunday and this could be a side effect of that. His vital signs are currently stable. The patient remains atrial paced on EKG and cardiac monitoring. Troponin is negative in the patient ever any chest pain. Will check orthostatics. The patient was noted to have an elevation in creatinine which is likely related to some degree of dehydration, he denies any chest pain. He does have a mild anemia but actually improved compared to baseline Differential Diagnosis Differential Diagnoses: The differential diagnosis associated with the presentation includes Side effects of radiation Anemia Dehydration ANIL Rectal cancer Lightheadedness Admission/Observation Consideration of admission/observation: Escalation of care including admission/observation considered Cancer patient presenting with lightheadedness. He was found to have mild ANIL but this can be treated with IV fluids and he is not vomiting so he can continue oral hydration and thus, admission not necessitated at this time. Lab Data [facility] Lab Attestation statement: I reviewed the patient's lab results. No leukocytosis, mild anemia with a hemoglobin 9.3 is actually improved from his baseline of around 8 and half. Patient does have thrombocytopenia with platelet count of a 115 K. This is likely a side effect of the radiation. Sodium and potassium within normal limits. His chloride is slightly elevated to 112 with the CO2 of 15. Patient's BUN is elevated to 41 with a creatinine of 1.81. These are up from a baseline of about 14 and 1.0 respectively 11/04/22 19:48 11/04/22 19:48 Labs: Lab Results 11/04/22 11/04/22 Range/Units 18:23 19:48 WBC 7.9 (4.8-10.8) X10*3/uL RBC 3.18 L (4.60-5.80) X10*6/uL Hgb 9.3 L D (14.0-18.0) g/dl Hct 28.6 L D (42.0-52.0) % MCV 89.9 (80.0-98.0) fL MCH 29.2 (27.0-33.0) pg MCHC 32.5 (31.0-36.0) g/dl RDW 25.2 H (11.0-16.0) % Plt Count 115 L D (160-400) X10*3/uL MPV 9.6 (9.4-12.4) fL Immature Gran % (Auto) 1.0 H (0.0-0.4) % Neut % (Auto) 73.8 H (45-73) % Lymph % (Auto) 11.7 L (20-40) % [place] % (Auto) 10.6 (2-11) % Eos % (Auto) 2.5 (0-4) % Baso % (Auto) 0.4 (0-2) % Lymph # (Auto) 0.9 L (1.2-4.9) X10*3/uL [place] # (Auto) 0.8 (0.1-1.2) X10*3/uL Eos # (Auto) 0.2 (0.0-0.4) X10*3/uL Baso # (Auto) 0.0 (0.0-0.2) X10*3/uL Abs Immat Gran (auto) 0.08 H (0.00-0.03) X10*3/uL Absolute Neuts (auto) 5.9 (2.0-8.3) x10*3/uL Absolute Nucleated RBC 0.000 (0.0-0.012) X10*3/uL Nucleated RBC % (auto) 0.0 (0.0-0.2) /100WBC Sodium 136 (135-145) mmol/L Potassium 4.1 (3.3-5.1) mmol/L Chloride 112 H (96-108) mmol/L Carbon Dioxide 15 L (22-29) mmol/L Anion Gap 13 (12-20) BUN 41 H (9-16) mg/dL Creatinine 1.83 H (0.5-1.4) mg/dL Estim Creat Clear Calc 35.4 Estimated GFR 36 POC Glucose 132 H (60-115) mg/dL Random Glucose 108 (60-115) mg/dL Calcium 8.6 (8.4-10.2) mg/dL Total Bilirubin 0.7 (0.0-1.0) mg/dL AST 13 (5-37) U/L ALT 11 (0-40) U/L Alkaline Phosphatase 101 (39-117) U/L Total Protein 6.8 (6.5-8.0) g/dL Albumin 3.7 (3.5-5.0) g/dL Discharge Plan Discharge Clinical Impression: Lightheadedness, Acute kidney injury Patient Disposition: Home, Self-Care Instructions: Acute Kidney Injury (DC) Additional Instructions: Your workup in the emergency room today was significant for a mild acute kidney injury needing your kidney function was slightly elevated. This means your likely and low bit dehydrated and will explain your lightheadedness/dizziness Drink lots of fluids at home Follow-up with your oncologist and primary doctor next week to have repeat labs and check your kidney function Prescriptions: No Action lisinopril 20 mg tablet 20 mg PO DAILY 90 Days Qty: 90 0RF Protocol: Hold for SBP< HOLD for SBP < : 90 metoprolol tartrate 100 mg tablet 100 mg PO BID 90 Days Qty: 180 0RF Protocol: Hold for SBP/HR < HOLD for SBP < : 90 HOLD for HR < : 60 capecitabine 500 mg Tablet 1,500 mg PO BID Qty: 120 0RF Rx Instructions: Take 1500 mg b.i.d. days 1-5, (weekends off) through radiation for 8 week. Must administer with water 30 minutes after a meal ondansetron 8 mg Tablet,Disintegrating 8 mg PO Q12H Qty: 60 4RF Eliquis 5 mg tablet 5 mg PO BID
== END 2022-11-04 21:39 | disposition home or self-care (01) ==
PROVIDERS: Emergency Provider Internal Medicine
DX: R42 Dizziness and giddiness (principal); N17.9 Acute kidney failure, unspecified; I10 Essential (primary) hypertension; E78.00 Pure hypercholesterolemia, unspecified; I48.0 Paroxysmal atrial fibrillation; C20 Malignant neoplasm of rectum; Z92.3 Personal history of irradiation; Z87.891 Personal history of nicotine dependence; Z95.0 Presence of cardiac pacemaker; Z79.01 Long term (current) use of anticoagulants; Z79.899 Other long term (current) drug therapy
CPT/HCPCS: 36415; 80053; 82947; 85025; 93005; 99284

== ENCOUNTER 2022-11-06 16:12 | Outpatient (REF) | payer OTHER, SELFPAY ==
--- NOTE | ~2022-11-06 | US_ITS ---
EXAMINATION: US RETROPERITONEAL LIMITED (RENAL ONLY) CLINICAL INFORMATION: Malignant neoplasm of unspecified kidney, except renal pelvis. COMPARISON: CT abdomen and pelvis 07/06/2022. Renal ultrasound 04/21/2022 and 10/19/2021. MRI abdomen 04/18/2021. TECHNIQUE: Real-time imaging of the kidneys. FINDINGS: RIGHT KIDNEY: 9.9 x 5.5 x 5.8 cm (SAG x AP x TRV). The kidney is normal in size and echogenicity. Renal cortical thickness is normal. No calculi or focal parenchymal lesions. No hydronephrosis. LEFT KIDNEY: 10.4 x 5.0 x 4.0 cm (SAG x AP x TRV). The kidney is normal in size and echogenicity. Renal cortical thickness is normal. No renal calculi or hydronephrosis. Exophytic complex hypoechoic focus along the left renal upper pole measuring 1.2 x 1.1 x 1.2 cm. Simple appearing cystic foci in the left kidney are noted the largest measuring up to 1.1 cm in the interpolar region. US/US renal BI IMPRESSION: 1. Exophytic complex hypoechoic focus along the left renal upper pole measuring 1.2 x 1.1 x 1.2 cm corresponding to a exophytic heterogeneous focus seen on prior cross-sectional imaging 2. Simple appearing cystic foci in the left kidney are noted the largest measuring up to 1.1 cm in the interpolar region, not requiring follow-up.
== END 2022-11-06 16:13 | disposition home or self-care (01) ==
LOC: HO.US 16:12
PROVIDERS: Visit Provider Urology
DX: C64.9 Malignant neoplasm of unspecified kidney, except renal pelvis (principal)
CPT/HCPCS: 76775

== ENCOUNTER 2022-11-09 08:16 | Inpatient (IN) | payer OTHER, SELFPAY ==
[2022-11-09] VITALS (11 sets, daily range): BP systolic 80–134; BP diastolic 40–78; PULSE 60–124; RESP 13–20; TEMP 36.3–36.7; O2SAT 96–98; BMI 26.9; BMI 27.8
--- NOTE | 2022-11-09 | ECG_ITS ---
Test Reason : repeat Blood Pressure : / mmHG Vent. Rate : 063 BPM Atrial Rate : 063 BPM P-R Int : 124 ms QRS Dur : 104 ms QT Int : 400 ms P-R-T Axes : -09 014 029 degrees QTc Int : 409 ms Normal sinus rhythm with sinus arrhythmia Normal ECG When compared with ECG of 09-NOV-2022 08:35, Sinus rhythm has replaced Electronic atrial pacemaker Referred By: Roxann Horne Electronically Signed By:MAYKEL PURCELL
--- NOTE | 2022-11-09 | ECG_ITS ---
Test Reason : chest pain Blood Pressure : / mmHG Vent. Rate : 060 BPM Atrial Rate : 060 BPM P-R Int : 170 ms QRS Dur : 096 ms QT Int : 416 ms P-R-T Axes : 116 016 039 degrees QTc Int : 416 ms Atrial-paced rhythm Abnormal ECG When compared with ECG of 04-NOV-2022 18:47, No significant change was found Referred By: Bhakti Reddy Electronically Signed By:MAYKEL PURCELL
--- NOTE | ~2022-11-09 | IR_ITS ---
Mesenteric arteriogram followed by selective embolization of a superior hemorrhoidal branch of the PRABHU INDICATIONS: Lower GI bleed with an active site of bleeding detected on the recent sigmoidoscopy After informed and written consent was obtained an official timeout was performed immediately prior to the procedure. I was personally responsible for the administration of moderate sedation services, all requirements were followed, an independent trained observer was utilized. PROCEDURE: Under ultrasound guidance a micropuncture needle was placed into the right common femoral artery. A 5 [place] sheath was placed. A 4 [employer] 1 catheter was selectively placed into the PRABHU. Selective angiography of the PRABHU demonstrates that the branches are normal in appearance. No active site of bleeding is identified. A microcatheter was selectively placed into the sigmoidal branch of the PRABHU. Selective angiography demonstrates an area of hyperemia involving the midportion of the rectum adjacent to a previously placed endoscopic clip. A microcatheter was advanced into the branch supplying this area of the rectum and embolized with 2 microcoils. Decrease perfusion of the area of hyperemia post procedure. A closure device was placed in the right groin and hemostasis obtained. IR/IR us guide venous access IMPRESSION: Selective embolization of a rectal branch of the PRABHU. Area of hyperemia adjacent to the previously placed endoscopic clip as noted. Decreased perfusion of this area postembolization.
--- NOTE | ~2022-11-09 | XR_ITS ---
EXAMINATION: XR ABDOMEN KUB CLINICAL INDICATION: Ileus COMPARISON: Abdomen radiograph from 11/22/2022. TECHNIQUE: AP view of the abdomen. FINDINGS: Again noted is extensive gaseous distention of small bowel. However, no evidence of colonic dilatation. The abnormal circumferential edematous wall thickening of small bowel the left abdomen visible on the abdominal CT images from 11/22/2022 is not well visualized on this radiographic examination. There is no evidence of pneumatosis intestinalis or pneumoperitoneum. There appears to be a small metallic coil as well as a metallic clip-like device in the rectum. XR/XR abdomen 1V IMPRESSION: The diffuse gaseous distention of small bowel remains similar in appearance compared to 11/22/2022. This could represent small bowel ileus rather than obstruction. The edematous thickening of small bowel in the left abdomen seen on the recent abdomen CT is not well visualized on this exam. No pneumatosis intestinalis.
--- NOTE | ~2022-11-09 | CT_ITS ---
EXAMINATION: CT ABDOMEN AND PELVIS WITHOUT CONTRAST CLINICAL INFORMATION: Renal failure. COMPARISON: 07/06/2022 TECHNIQUE: Multidetector volumetric imaging was performed from the superior aspect of the liver through the pubic symphysis. Sagittal and coronal reformatted images were obtained on the technologist's workstation. This CT examination was performed using dose optimization techniques as appropriate, variously including the following: *Automated exposure control *Adjustment of mA and/or kV according to patient size (this includes techniques or standardized protocols for targeted exams where dose is matched to indication/reason for exam; i.e. extremities or head) *Use of iterative reconstruction technique DLP: 574 mGy-cm FINDINGS: LUNG BASES: The heart is enlarged. Pacing leads are partially imaged. No pleural or pericardial effusion. Nonspecific distal esophageal wall thickening. LIVER, GALLBLADDER, AND BILIARY TREE: The noncontrast liver is normal in size and contour. No biliary ductal dilatation is present. The gallbladder is unremarkable with no evidence of radiopaque gallstones, gallbladder wall thickening, or obvious pericholecystic inflammatory changes. PANCREAS: Stable 1.0 cm hypodensity in the head of the pancreas. SPLEEN: Not enlarged. ADRENAL GLANDS: Nodular thickening of the adrenal glands. KIDNEYS AND URETERS: The kidneys are symmetric in size. 1.5 cm contour abnormality lateral midpole of the left kidney. 1.2 cm contour abnormality lateral midpole left kidney possibly proteinaceous or hemorrhagic cyst. No hydronephrosis or perinephric fluid collection. BLADDER: Unremarkable. GASTROINTESTINAL TRACT: No small bowel obstruction. Appendix is within normal limits. Possible filling defect in the rectosigmoid colon. ABDOMINAL WALL: No significant hernia is appreciated. LYMPH NODES: No bulky abdominal or pelvic lymphadenopathy. VASCULAR: Marked atherosclerotic vascular calcification of the abdominal aorta and major branch vessels without aneurysmal dilatation. PELVIC VISCERA: Enlarged prostate gland. OSSEOUS STRUCTURES: No destructive bone lesions. CT/CT abdomen pelvis wo IV con IMPRESSION: 1.5 cm contour abnormality of the left kidney in the lateral midpole remains concerning for underlying mass. Further evaluation/characterization with MR imaging may be considered. Possible filling defect in the rectosigmoid colon. Advise correlation with direct visualization.
--- NOTE | ~2022-11-09 | XR_ITS ---
EXAMINATION: XR ABDOMEN KUB CLINICAL INDICATION: Ileus, nasogastric tube COMPARISON: 11/23/2022 TECHNIQUE: 2 AP views of the abdomen. FINDINGS: Nasogastric tube tip projects in the central upper abdomen. Pacer lines partially imaged overlying the cardiac silhouette. Redemonstration of extensive gaseous distention of multiple loops of small bowel. No abnormally distended loops of colon are identified. Redemonstration of a small metallic coil/clip-like device in the pelvis. Advanced degenerative changes in the lumbar spine. XR/XR abdomen 1V IMPRESSION: Nasogastric tube tip projects in the upper abdomen. Persistent diffuse gaseous distention of small bowel may be related to ileus versus obstruction.
--- NOTE | ~2022-11-09 | XR_ITS ---
EXAMINATION: XR CHEST CLINICAL INFORMATION: NG tube placement COMPARISON: 11/22/2022 TECHNIQUE: Frontal view of the chest was obtained. FINDINGS: Enteric tube coils in the left upper quadrant within the gastric fundus. Normal symmetric lung volumes. Left basilar streaky opacities unchanged. No large pleural effusion. No pneumothorax. Cardiomediastinal silhouette and pulmonary vascularity are within normal limits. Multiple dilated loops of small bowel redemonstrated in the abdomen. No acute osseous abnormalities. XR/XR chest 1V IMPRESSION: * Enteric tube coils in the left upper quadrant within the gastric fundus. * Unchanged left basilar streaky opacities, nonspecific possibly atelectasis. There may be a small left pleural effusion.
--- NOTE | ~2022-11-09 | XR_ITS ---
EXAMINATION: XR CHEST CLINICAL INFORMATION: Shortness of breath COMPARISON: 06/18/2022 TECHNIQUE: Frontal view of the chest was obtained. FINDINGS: Since the prior study, a right chest wall pacemaker has been placed with 2 leads in good position. There is borderline cardiac enlargement. No evidence of CHF. No infiltrates, effusions or lung masses are seen. XR/XR chest 1V IMPRESSION: No acute intrathoracic disease. Borderline cardiac enlargement. New pacemaker in place.
--- NOTE | ~2022-11-09 | IR_ITS ---
Mesenteric arteriogram followed by selective embolization of a superior hemorrhoidal branch of the PRABHU INDICATIONS: Lower GI bleed with an active site of bleeding detected on the recent sigmoidoscopy After informed and written consent was obtained an official timeout was performed immediately prior to the procedure. I was personally responsible for the administration of moderate sedation services, all requirements were followed, an independent trained observer was utilized. PROCEDURE: Under ultrasound guidance a micropuncture needle was placed into the right common femoral artery. A 5 [place] sheath was placed. A 4 [place]eron[place] 1 catheter was selectively placed into the PRABHU. Selective angiography of the PRABHU demonstrates that the branches are normal in appearance. No active site of bleeding is identified. A microcatheter was selectively placed into the sigmoidal branch of the PRABHU. Selective angiography demonstrates an area of hyperemia involving the midportion of the rectum adjacent to a previously placed endoscopic clip. A microcatheter was advanced into the branch supplying this area of the rectum and embolized with 2 microcoils. Decrease perfusion of the area of hyperemia post procedure. A closure device was placed in the right groin and hemostasis obtained. IR/IR embolization hemorrhage IMPRESSION: Selective embolization of a rectal branch of the PRABHU. Area of hyperemia adjacent to the previously placed endoscopic clip as noted. Decreased perfusion of this area postembolization.
--- NOTE | 2022-11-09 08:36 | PC.NURSE ---
Patient alert and oriented, reports epigastric and right sided chest pain that started at 2am. Reports pain has gotten worse. Reports nausea and a small amount of vomiting. Reports hx of colon cancer and is getting radiation for rectal cancer. Reports had a pacemaker placed x1 month ago. NSR on monitor. BP 108/50. EKG obatained. Seen by provider
--- OUTSIDE RECORDS SUMMARY | 2022-11-09 08:37 | XMS_ITS | Patient Health Record ---
Author Name Unknown Organization [facility] Address [address] [place] [address] Care Team Providers Care Truckload Checker Name Role Phone Joao Duncan MD Primary Care Provider Markos Plata [phone] ALLERGIES Allergen (clinical drug ingredient) Drug/Non Drug Allergy documented on EMR Reaction Allergy Type Onset Date Status simvastatin Zocor Unknown Drug Allergy Activ e RESULTS Component Value Reference Range Notes Liver Panel Reviewed date:06/08/2022 12:11:51 PM Interpretation: Performing Lab:[facility], [address] [place] [phone] Notes/Report: Bilirubin Total 0.7 0.0-1.0 mg/dL Bilirubin Direct 0.3 0.0-0.5 mg/dL Aspartate Amino Transferase 18 5-37 U/L Alanine Aminotransferase 18 0-40 U/L Total Protein 6.1 6.5-8.0 g/dL Albumin Level 3.4 3.5-5.0 g/dL Alkaline Phosphatase 89 39-117 U/L Blood Urea Nitrogen Reviewed date:06/08/2022 12:14:40 PM Interpretation: Performing Lab:[facility], [address] [place] [phone] Notes/Report: Blood Urea Nitrogen 14 9-16 mg/dL Creatinine Reviewed date:06/08/2022 05:20:52 PM Interpretation: Performing Lab:[facility], [address] [place] [phone] Notes/Report: Creatinine 0.98 0.5-1.4 mg/dL Estimated Glomerular Filt Rate > 60 NOTE: For -[place] individuals, multiply the result by 1.210. Chronic Kidney Disease: Estimated GFR < 60 mL/min/1.73m2 Severe Kidney Disease: Estimated GFR < 15 mL/min/1.73m2 Carbohydrate Antigen 19-9 Reviewed date:06/12/2022 04:53:05 PM Interpretation: Performing Lab:[facility], [address] [place] [phone] Notes/Report: Carbohydrate Antigen 19-9 <3 <34 U/mL The CA19-9 result may be increased on average 14% - 20%, relative to results previously obtained with this method due to a recent calibrator adjustment made in April 2022 by the reagent ediphone operator. In the low range for this assay (< 34 U/mL), this increase may be greater than 20%. Serially monitored results should always be used in conjunction with other diagnostic procedures, including clinical evaluation. This test was performed using the Siemens chemiluminescent method. Values obtained from different assay methods cannot be used interchangeably. CA 19-9 levels, regardless of value, should not be interpreted as absolute evidence of the presence or absence of disease. THIS TEST WAS PERFORMED AT: [facility] [address] [place] [phone] abdomen pelvis w con Reviewed date:07/17/2022 10:00:32 PM Interpretation: Performing Lab: Notes/Report: [address] [address] [address] Scan Report Signed Patient: Aimee Ku MR#: [id number] : 1945 Acct:[id number] Age/Sex: 76 / M ADM Date: 07/06/22 Loc: HO.CT Attending Dr: Markos Hammer Ordering Physician: Markos Hammer Date of Service: 07/06/22 Procedure(s): CT abdomen pelvis w IV con Accession Number(s): [id number] cc: Markos Hammer EXAMINATION: CT ABDOMEN AND PELVIS WITH CONTRAST CLINICAL INFORMATION: Abnormal pancreatic duct. COMPARISON: None available. TECHNIQUE: Multidetector volumetric images were obtained from the superior aspect of the liver through the pubic symphysis following administration 85 mL of Omnipaque 350 intravenous contrast. Sagittal and coronal reformatted images were obtained on the technologist's workstation. Oral contrast: No. This CT examination was performed using dose optimization techniques as appropriate, variously including the following: *Automated exposure control *Adjustment of mA and/or kV according to patient size (this includes techniques or standardized protocols for targeted exams where dose is matched to indication/reason for exam; i.e. extremities or head) *Use of iterative reconstruction technique DLP: 579 mGy-cm FINDINGS: LUNG BASES: There are mild atelectatic changes anterobasal segment left lower lobe. Heart size is normal. There are pacer electrodes in right atrium and right ventricle. LIVER, GALLBLADDER, AND BILIARY TREE: The liver is normal in size, shape, and attenuation. No focal hepatic lesion or biliary ductal dilatation is present. The gallbladder is unremarkable with no evidence of radiopaque gallstones, gallbladder wall thickening, or obvious pericholecystic inflammatory changes. PANCREAS: The pancreas is homogeneous in echotexture, normal size. The peripancreatic fat planes are preserved. The proximal pancreatic duct is mildly dilated measuring 1 cm. The distal pancreatic duct at the tail and the body is normal size. The dorsal and ventral pancreatic duct unite and open separately into the duodenum. The CBD open separately into the duodenum slightly superiorly. SPLEEN: Unremarkable. ADRENAL GLANDS: Unremarkable. KIDNEYS AND URETERS: The kidneys are lobulated in shape but normal size. There is a 1.7 x 1.4 cm partially exophytic heterogeneous lesion, measuring 75 Hounsfield units. A smaller exophytic lesion measuring 1 cm measures 23 Hounsfield units. BLADDER: The bladder is nondistended. Mild bladder wall thickening. GASTROINTESTINAL TRACT: There is scattered stool, diverticula and gas seen throughout the colon without distention. Contrast opacified small bowel loops are nondilated and unremarkable. No free air or free fluid seen. ABDOMINAL WALL: No significant hernia is appreciated. LYMPH NODES: Normal. VASCULAR: Unremarkable. PELVIC VISCERA: Unremarkable. OSSEOUS STRUCTURES: No aggressive lytic or sclerotic process seen. There are mild degenerative disc changes L3-L4, L4-L5 disc levels with moderate ventral spondylosis throughout lumbar spine. CT/CT abdomen pelvis w IV con IMPRESSION: Focal dilatation of proximal pancreatic duct likely confluence of dorsal and ventral pancreatic duct which have direct entry into the duodenum. A intraductal cystic neoplasm such as IPMN cannot be excluded. Recommend MRI pancreas with and without contrast. The CBD opens separately into the duodenum. The distal and mid pancreatic duct is normal. The pancreas itself is normal. The CBD is normal caliber. No pancreatic lesions seen. Two complex partially exophytic cysts in the midpole left kidney with no hydronephrosis. Fleischner guidelines were followed. Dictated By: Alfredo Ramirez MD Signed By: <Electronically signed by Alfredo Ramirez MD in OV> 07/14/22 0808 DD/ 1451 TD/TT: Long Goods Drier: VISH REASON FOR REFERRAL Referring Provider First Name Joao Referring Provider Last Name Perla Referring Provider Speciality Internal M edicine Referred Organization [facility] Referred Provider Markos Hammer Referred Address [address] [place] [address] [address],[place],[address], Referred Provider Specialty Gastroentero logy General Notes Divina Cleveland 023 01:48:12 PM EDT > requested a [facility] referral from [facility] for an appt with dr hammer on 06-07-2022 fx pancreatic cyst [phone] Referral Priority Routine MEDICATIONS Medication SIG (Take, Route, Frequency, Duration) Notes Start Date End Date Status Metoprolol Tartrate 100 MG TAKE 1 TABLET BY MOUTH TWICE A DAY Oral for 30 Active Lisinopril 20 MG TAKE 1 TABLET BY JUANIS TH EVERY DAY Oral for 30 Active Eliquis 5 MG TAKE 1 TABLET BY JUANIS TH EVERY 12 HOURS Oral for 30 Activ e IMMUNIZATIONS Vaccine Route Administration Date Status Comme nts Influenza Unknown 06/07/2022 Refused SOCIAL HISTORY Tobacco Use: Social History Observation Description Date Details (start date - stop date) Never Smoker NA - NA Sex Assigned At : Social History Observation Description Sex Assigned At Unknown Tobacco Use/Smoking Question Answer Notes Patient is a nonsmoker Alcohol Screen Question Answer Notes Did you have a drink containing alcohol in the p ast year? 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 [id number] Encounters Encounter Location Date Provider Diagnosis [facility] [address] [place] [address] 06/07/2022 Markos Hammer Abnormality of pancreatic duct Q45.3 [facility] [address] [place] [address] 06/07/2022 Markos Hammer [facility] [address] [place] [address] 06/19/2022 Markos Hammer Abnormality of pancreatic duct Q45.3 [facility] [address] [place] [address] 07/17/2022 Markos Hammer ASSESSMENTS Encounter Date Diagnosis Assessment Notes Treatment Notes Treatment Clinical Notes 06/07/2022 Abnormality of pancreatic duct (ICD-10 - Q45.3) 06/19/2022 Abnormality of pancreatic duct (ICD-10 - Q45.3) PLAN OF TREATMENT Pending Test Test Name Order Date BUN 06/07/2022 LIVER PROFILE 06/07/2022 CA 19-9 06/07/2022 CT ABD & PELVIS WITH CONTRAST 06/19/2022 MRI ABD W&WO CONTRAST 06/07/2022 Creatinine 06/07/2022 Insurance Providers Payer Name Payer Address Payer Phone Subscriber Number Group Number Insured Name Patient Relationship to Insured Coverage Start Date Coverage End Date [facility] [employer] [address] [place] [address] [id number] AIMEE CRUZ Self - patient is the insured MEDICAL (GENERAL) HISTORY Medical History History ICD Code Hyperlipidemia Hypertension Reports negative Colonoscopy x 2 at the [facility] Atrial fibrillation Denies [place],DM,CVA,Lung disease,renal dise ase Left renal lesion followed by Dr. Horton Abnormal imaging of the panc reatic duct with an area of focal dilatation on CT scan in 2020 and MRI in April of 2021 Surgical History Surgery Date(Month/Year) Left shoulder surgery
--- NOTE | 2022-11-09 08:58 | ED_ITS ---
HPI - Chest Pain General Chief Complaint: Chest Pain Stated Complaint: L ARM NUMBNESS,BURNING AT PACEMAKER SITE X1 HOUR Time Seen by Provider: 11/09/22 08:32 Source: patient and old records reviewed Mode of arrival: EMS Limitations: no limitations History of Present Illness HPI narrative: 77 yo male with PMH of SSS with PPM, afib takes eliquis, anemia, rectal cancer currently on oral chemo and receiving radiation he comes in with c/o having burning pain in chest and R side of chest since 2am. He notes some nausea and it lindsey and hurts when he swallows. He denies cough or fever, black or bloody stools. He notes no shortness of breath or swelling. He is compliant with his medications. He has not had GERD like this and no spicy or acidic foods before sleep. Poor PO intake since discharge still taking all of his medications. MD complaint: chest pain Onset (ago): hour(s) (7) Timing of current episode: constant Prior episodes: No Onset: during rest Pain location: substernal and right chest Pain radiation: none Severity: moderate Quality: burning Relieving factors: nothing Exacerbating factors: other (swallowing) Context: other (on oral chemotherapy) Associated symptoms: nausea Treatment prior to arrival: none Related Data Home Medications Medication Instructions Recorded Confirmed apixaban 5 mg tablet (Eliquis) 5 mg PO BID 06/27/22 10/27/22 Previous Rx's Medication Instructions Recorded lisinopril 20 mg tablet 20 mg PO DAILY 90 days #90 tabs 06/08/22 metoprolol tartrate 100 mg tablet 100 mg PO BID 90 days #180 tabs 06/08/22 capecitabine 500 mg tablet 1,500 mg (3 x 500 mg) PO BID #120 09/11/22 tabs ondansetron 8 mg disintegrating 8 mg PO Q12H #60 tabs 09/29/22 tablet Allergies Allergy/AdvReac Type Severity Reaction Status Date / Time No Known Allergies [NKA] Allergy Mild NOT Verified 11/04/22 18:18 APPLICABLE Review of Systems 2 Review of Systems: Constitutional : No Weight loss, No Fever, No Chills ENT/Mouth : pos sore throat, No Rhinorrhea Eyes: No Eye Pain, No Swelling Cardiovascular : pos Chest Pain, no SOB, no Dyspnea on Exertion, No Orthopnea, No Edema, No Palpitations Respiratory : No Cough, No Sputum Gastrointestinal : pos Nausea, No Vomiting, No Diarrhea, No abdominal Pain, No Hematochezia, No Melena Genitourinary : No Dysuria, No Urinary Frequency Musculoskeletal : No joint pain, No Myalgias, No Joint Swelling Skin : No Skin Lesions, No rash Neuro : No Weakness, No Numbness, No Dizziness, No Headache Psych : No Anxiety/Panic, No Depression Heme/Lymph: No Bruising, No Lymphadenopathy Endocrine : No Polyuria, No Polydipsia All other systems reviewed and are negative [facility] Past Medical History Attestation statement: The following information was validated with the patient. Source: old records reviewed Medical History Aftercare following left shoulder joint replacement surgery Pacemaker OA (osteoarthritis) Borderline hyperlipidemia Obesity HTN (hypertension) EtOH dependence Mild cognitive impairment Inhibited sex excitement Atrial fibrillation Cancer of kidney High cholesterol Hypertension Family History Family History Mother Heart problem Social History Social History Household Members: Spouse Housing: House Do you presently have visiting nurse or other home services: No Alcohol intake: former Patient Tobacco Use Status: Former Tobacco user Smoked in Last 30 Days: No Use of substances other than those prescribed or required for medical reasons: No Advance Directives: No Advance Directives Information Provided: Yes service: Yes Physical Exam 2 Vital Signs: Vital Signs: Last Vital Signs Temp 97.5 F 11/09/22 11:32 Pulse 63 11/09/22 12:49 Resp 18 11/09/22 12:49 BP 123/52 L 11/09/22 12:49 Pulse Ox 97 11/09/22 12:49 O2 Del Method Room Air 11/09/22 12:49 BMI result Body Mass Index 26.9 Appearance: Alert. Oriented X3. No acute distress. Eyes: Pupils equal, round and reactive to light. ENT: Pharynx tongue with white material on it and posterior pharynx is normal Neck: Normal inspection. Neck supple. CVS: Normal heart rate and rhythm. Pulses normal. Respiratory: No respiratory distress. Breath sounds normal. Abdomen: Soft and non-tender. Skin: Skin warm and dry. Normal skin color. Normal skin turgor. Extremities: No lower extremity edema. No calf ttp Neuro: Oriented X 3. No motor deficit. No sensory deficit. Course Course Course Narrative: bladder scan 79 was taking all of his medications after ED visit on Sunday including his lisinopril Reevaluation(s) Reevaluation #1: still pending nephrology call back called at 1pm - on NS rate and will start on NaHCO3 drip Medications Administered Discontinued Medications Generic Name Dose Route Start Last Admin Trade Name Boq PRN Reason Stop Dose Admin Al Hydroxide/Mg Hydroxide 15 ml 11/09/22 08:44 11/09/22 10:21 Magnesium Hydrox/Alum Hydrox 30 Ml Oral.Susp PO 11/09/22 08:45 15 ml ONCE ONE Administration Famotidine 20 mg 11/09/22 08:44 11/09/22 10:20 Famotidine/Pf 20 Mg/2 Ml Vial IVPUSH 11/09/22 08:45 20 mg ONCE ONE Administration Sodium Chloride 500 mls @ 500 mls/hr 11/09/22 08:45 11/09/22 12:35 Ns IV 11/09/22 09:44 Infused .Q1H NILE Infusion Sodium Chloride 1,000 mls @ 999 mls/hr 11/09/22 10:15 11/09/22 12:35 Ns IV 11/09/22 11:15 Infused .Q1H1M NILE Infusion Lidocaine HCl 15 ml 11/09/22 08:44 11/09/22 10:20 Lidocaine Hcl Viscous 2 % 15 Ml Solution MUCOUS MEM 11/09/22 08:45 15 ml ONCE ONE Administration Ondansetron HCl 4 mg 11/09/22 08:44 11/09/22 10:20 Ondansetron Hcl 4 Mg/2 Ml Vial IVPUSH 11/09/22 08:45 4 mg ONCE ONE Administration Medical Decision Making Medical Decision Making [facility] Narrative: 77 yo male with PMH of SSS with PPM, afib takes eliquis, anemia, rectal cancer currently on oral chemo and receiving radiation here with c/o atypical burning chest pain hurts to swallow. I see thrush on exam. I doubt VTE given DOAC use. He denies infectious symptoms that would suggest pneumonia. He has no known mets. At this time basic labs, IVF, CXR and GI cocktail pepcid ordered. If negative workup I may start him on antacids and nystatin. Daughter notes poor PO intake likely due to thrush symptoms Differential Diagnosis Differential Diagnoses: The differential diagnosis associated with the presentation includes thrush, GERD, atypical chest pain Admission/Observation Consideration of admission/observation: Escalation of care including admission/observation considered admit for acute renal failure Consult Healthcare Provider Management of the patient was discussed with: Hospitalist (agrees to admission) and Clay Pigeon Loader (nephrology Dr. Velasquez aware and will consult) Lab Data MDM Lab Attestation statement: I reviewed the patient's lab results. 11/09/22 09:32 11/09/22 12:17 Labs: Lab Results 11/09/22 11/09/22 Range/Units : 12:17 WBC 10.7 (4.8-10.8) X10*3/uL RBC 3.40 L (4.60-5.80) X10*6/uL Hgb 9.8 L (14.0-18.0) g/dl Hct 29.9 L (42.0-52.0) % MCV 87.9 (80.0-98.0) fL MCH 28.8 (27.0-33.0) pg MCHC 32.8 (31.0-36.0) g/dl RDW 25.8 H (11.0-16.0) % Plt Count 160 D (160-400) X10*3/uL MPV 10.4 (9.4-12.4) fL Immature Gran % (Auto) 0.9 H (0.0-0.4) % Neut % (Auto) 91.8 H (45-73) % Lymph % (Auto) 2.8 L (20-40) % [place] % (Auto) 3.8 (2-11) % Eos % (Auto) 0.6 (0-4) % Baso % (Auto) 0.1 (0-2) % Lymph # (Auto) 0.3 L (1.2-4.9) X10*3/uL [place] # (Auto) 0.4 (0.1-1.2) X10*3/uL Eos # (Auto) 0.1 (0.0-0.4) X10*3/uL Baso # (Auto) 0.0 (0.0-0.2) X10*3/uL Abs Immat Gran (auto) 0.10 H (0.00-0.03) X10*3/uL Absolute Neuts (auto) 9.8 H (2.0-8.3) x10*3/uL Absolute Nucleated RBC 0.000 (0.0-0.012) X10*3/uL Nucleated RBC % (auto) 0.0 (0.0-0.2) /100WBC Smear Tech's Comments VERIFIED Sodium 133 L 135 (135-145) mmol/L Potassium 5.3 H D 4.4 (3.3-5.1) mmol/L Chloride 107 112 H (96-108) mmol/L Carbon Dioxide 11 L 8 L* D (22-29) mmol/L Anion Gap 20 19 (12-20) BUN 126 H 123 H (9-16) mg/dL Creatinine 5.21 H* 4.58 H* (0.5-1.4) mg/dL Estim Creat Clear Calc 12.0 13.7 Estimated GFR 11 13 Random Glucose 135 H 113 (60-115) mg/dL Calcium 7.8 L D 7.1 L D (8.4-10.2) mg/dL Magnesium 2.5 (1.6-2.6) mg/dL Total Bilirubin 0.6 (0.0-1.0) mg/dL Direct Bilirubin 0.2 (0.0-0.5) mg/dL AST 30 (5-37) U/L ALT 8 (0-40) U/L Alkaline Phosphatase 100 (39-117) U/L Total Creatine Kinase 128 (38-174) U/L Troponin I High Sens 6.7 D (<3.5-35.0) ng/L Total Protein 7.6 (6.5-8.0) g/dL Albumin 3.9 (3.5-5.0) g/dL Lipase 76 (8-78) U/L Urine Color Yellow Urine Appearance Clear Urine pH 5.0 (5.0-9.0) Ur Specific [place] 1.015 (1.005-1.025) Urine Protein 30 (1+) H (Neg-Trace) mg/dL Urine Glucose (UA) Negative (Negative) mg/dL Urine Ketones Negative (Negative) mg/dL Urine Blood Negative (Negative) Urine Nitrite Negative (Negative) Ur Leukocyte Esterase Negative (Negative) Urine RBC 0-2 (0-2) /HPF Urine WBC 0-5 (0-5) /HPF Ur Squamous Epith Cells 0-2 (0-2) /HPF Urine Bacteria None Seen (None Seen) Hyaline Casts 6-10 (0-2) /LPF Independent Interpretation I performed an independent interpretation of an: EKG and Plain X-Ray Interpretation: Rate: 60 Rhythm: atrial paced [place]: mpr,a; Normal P waves. Normal FREYA. Normal QRS complex. ST T wave : normal no ORIN qTC: normal prior studies: no acute ischemia The study has been interpreted contemporaneously by me. . Radiology Impression Discussion of test interpretation with radiology: I have reviewed the radiologist's reading. Independent Historian Clinical information obtained from an independent historian. History obtained from or confirmed by: EMS External Record Review External record reviewed: Inpatient record Critical Care Time Critical Care Time Critical Care Time: Yes Total Critical Care Time: 45 Attestation: IVF< repeat labs, HCO3 drip, travel consultant discussion admit for further management, review of records I attest to this time spent taking care of the patient Discharge Plan Discharge Clinical Impression: Elevated BUN, Candidiasis of mouth Acute renal failure Qualifiers: Acute renal failure type: unspecified Qualified Code(s): N17.9 - Acute kidney failure, unspecified Patient Disposition: Admitted As Inpatient
--- NOTE | 2022-11-09 09:00 | PC.NURSE ---
attempt x1 by zeenat balderas for iv. unable.
--- NOTE | 2022-11-09 09:25 | PC.NURSE ---
attempt for iv- unable.
[2022-11-09 09:45] LABS: Basophils Percent Auto 0.1 % (0-2); Eosinophils Absolute Auto 0.1 X10*3/uL (0.0-0.4); Eosinophils Percent Auto 0.6 % (0-4); Hematocrit 29.9 % (42.0-52.0); Hemoglobin 9.8 g/dl (14.0-18.0); Imm Gran Pct Auto 0.9 % (0.0-0.4); Lymphocytes Absolute Auto 0.3 X10*3/uL (1.2-4.9); Lymphocytes Percent Auto 2.8 % (20-40); MANUAL DIFF FLAG SCAN; Mean Corpuscular HGB Conc 32.8 g/dl (31.0-36.0); Mean Corpuscular Hemoglobin 28.8 pg (27.0-33.0); Mean Corpuscular Volume 87.9 fL (80.0-98.0); Mean Platelet Volume 10.4 fL (9.4-12.4); Monocytes Absolute Auto 0.4 X10*3/uL (0.1-1.2); Monocytes Percent Auto 3.8 % (2-11); Neutrophils Absolute Auto 9.8 x10*3/uL (2.0-8.3); Neutrophils Percent Auto 91.8 % (45-73); Platelet Count 160 X10*3/uL (160-400); Red Cell Distribution Width 25.8 % (11.0-16.0); SCAN SMEAR FLAG 1; White Blood Count 10.7 X10*3/uL (4.8-10.8)
--- NOTE | 2022-11-09 09:50 | PC.NURSE ---
iv attempt by farhana balderas successful. blood drawn. sent to lab
--- NOTE | 2022-11-09 09:55 | PC.NURSE ---
pt in radiology
[2022-11-09 10:01] LABS: Troponin-I High Sensitivity 6.7 ng/L (<3.5-35.0)
[2022-11-09 10:06] LABS: Alanine Aminotransferase 8 U/L (0-40); Albumin Level 3.9 g/dL (3.5-5.0); Alkaline Phosphatase 100 U/L (39-117); Anion Gap 20 (12-20); Aspartate Amino Transferase 30 U/L (5-37); Bilirubin Direct 0.2 mg/dL (0.0-0.5); Bilirubin Total 0.6 mg/dL (0.0-1.0); Blood Urea Nitrogen 126 mg/dL (9-16); Calcium 7.8 mg/dL (8.4-10.2); Carbon Dioxide 11 mmol/L (22-29); Chloride 107 mmol/L (96-108); Estimated Glomerular Filt Rate 11; Glucose Random 135 mg/dL (60-115); Lipase 76 U/L (8-78); Magnesium 2.5 mg/dL (1.6-2.6); Potassium 5.3 mmol/L (3.3-5.1); Sodium 133 mmol/L (135-145); Total Protein 7.6 g/dL (6.5-8.0)
[2022-11-09 10:18] LABS: SLIDE REVIEW VERIFIED
--- NOTE | 2022-11-09 10:18 | PC.NURSE ---
pt returned from radiology- denies chest pain/pressure. reports epigastric discomfor/burning.
[2022-11-09] MEDS: Lidocaine HCl Viscous 2 % 15 ML SOLUTION MUCOUS MEM (10:20)
[2022-11-09] MEDS: Famotidine/PF 20 MG/2 ML VIAL IVPUSH (10:20)
[2022-11-09] MEDS: ondansetron HCL 4 MG/2 ML VIAL IVPUSH (10:20)
[2022-11-09] MEDS: Magnesium Hydrox/Alum Hydrox 30 ML ORAL.SUSP 15 ML PO (10:21)
[2022-11-09] MEDS: 0.9 % Sodium Chloride 1,000 ML 999 ML IV (10:21)
[2022-11-09] MEDS: 0.9 % Sodium Chloride 500 ML IV (11:28)
--- NOTE | 2022-11-09 11:32 | PC.NURSE ---
reports no burning or pain. resting calmly. vss. no distress noted
[2022-11-09 12:24] LABS: Appearance Urine Clear; Color Urine Yellow; Glucose Urine UA Negative (Negative); Leukocyte Esterase Urine Negative (Negative); Nitrite Urine Negative (Negative); Specific Gravity - Urine 1.015 (1.005-1.025); UMIC TRIGGER UACC YES; Urine Blood Negative (Negative); Urine Ketones Negative (Negative); Urine Protein 30 (1+) mg/dL (Neg-Trace)
[2022-11-09 12:37] LABS: Bacteria Urine None Seen (None Seen); RBC Urine 0-2 /HPF (0-2); Squamous Epithelial Cell Urine 0-2 /HPF (0-2); WBC Urine 0-5 /HPF (0-5)
[2022-11-09 12:53] LABS: Anion Gap 19 (12-20); Blood Urea Nitrogen 123 mg/dL (9-16); Calcium 7.1 mg/dL (8.4-10.2); Carbon Dioxide 8 mmol/L (22-29); Chloride 112 mmol/L (96-108); Creatinine Clr Calc Pharmacy 13.7; Estimated Glomerular Filt Rate 13; Glucose Random 113 mg/dL (60-115); Potassium 4.4 mmol/L (3.3-5.1); Sodium 135 mmol/L (135-145)
--- NOTE | 2022-11-09 13:47 | P.PNNP_ITS ---
Subjective Subjective Date of Service: 11/09/22 Interval history: Consulted from ER for ANIL with metabolic Acidosis Case D/W ER Attending Patient will be seen and detailed consult to follow Physical Exam 2 Vital Signs: Vital Signs: Last Vital Signs Temp 97.5 F 11/09/22 11:32 Pulse 63 11/09/22 12:49 Resp 18 11/09/22 12:49 BP 123/52 L 11/09/22 12:49 Pulse Ox 97 11/09/22 12:49 O2 Del Method Room Air 11/09/22 12:49 BMI result Body Mass Index 26.9 Objective Data Labs 11/09/22 09:32 11/09/22 12:17 Labs: Laboratory Results - last 24 hr 11/09/22 11/09/22 09:32 12:17 WBC 10.7 RBC 3.40 L Hgb 9.8 L Hct 29.9 L MCV 87.9 MCH 28.8 MCHC 32.8 RDW 25.8 H Plt Count 160 D MPV 10.4 Immature Gran % (Auto) 0.9 H Neut % (Auto) 91.8 H Lymph % (Auto) 2.8 L [place] % (Auto) 3.8 Eos % (Auto) 0.6 Baso % (Auto) 0.1 Lymph # (Auto) 0.3 L [place] # (Auto) 0.4 Eos # (Auto) 0.1 Baso # (Auto) 0.0 Abs Immat Gran (auto) 0.10 H Absolute Neuts (auto) 9.8 H Absolute Nucleated RBC 0.000 Nucleated RBC % (auto) 0.0 Smear Tech's Comments VERIFIED Sodium 133 L 135 Potassium 5.3 H D 4.4 Chloride 107 112 H Carbon Dioxide 11 L 8 L* D Anion Gap 20 19 BUN 126 H 123 H Creatinine 5.21 H* 4.58 H* Estim Creat Clear Calc 12.0 13.7 Estimated GFR 11 13 Random Glucose 135 H 113 Calcium 7.8 L D 7.1 L D Magnesium 2.5 Total Bilirubin 0.6 Direct Bilirubin 0.2 AST 30 ALT 8 Alkaline Phosphatase 100 Total Creatine Kinase 128 Troponin I High Sens 6.7 D Total Protein 7.6 Albumin 3.9 Lipase 76 Urine Color Yellow Urine Appearance Clear Urine pH 5.0 Ur Specific [place] 1.015 Urine Protein 30 (1+) H Urine Glucose (UA) Negative Urine Ketones Negative Urine Blood Negative Urine Nitrite Negative Ur Leukocyte Esterase Negative Urine RBC 0-2 Urine WBC 0-5 Ur Squamous Epith Cells 0-2 Urine Bacteria None Seen Hyaline Casts 6-10 Procedures Date of Service Date of Service: 11/09/22 Assessment & Plan Assessment and plan (1) Acute renal failure: Status: Acute Assessment and Plan: Likely due to tubular injury ACEI on hold; Started NaHCO3( 3 amps in 1 L D5 W)- needs to be on 150 mls/ hour Needs USS; Urine studies; Shall follow Time Spent With Patient Time: Total time managing care of this patient today ____ minutes.
--- NOTE | 2022-11-09 13:48 | PC.NURSE ---
nir de jesus placed us iv as pt difficult stick.
--- NOTE | 2022-11-09 13:53 | PC.NURSE ---
spoke w pharmacist - pharmacy working on bicarb drip and will send down to ED.
[2022-11-09] MEDS: Sodium Bicarbonate 8.4% 150 MEQ in Dextrose 5 % 850 ML 50 MEQ IV ×2 (14:07→22:12)
--- NOTE | 2022-11-09 14:10 | P.HPHOSP_ITS ---
History of Present Illness Date of Service: 11/09/22 <SEBASTIAN Edward - Last Filed: 11/09/22 19:11> Attending physician on admission: Daquan Webb <SEBASTIAN Edward - Last Filed: 11/09/22 19:11> Chief Complaint: Burning chest pain <SEBASTIAN Edward - Last Filed: 11/09/22 19:11> Pt is a Australian-speaking 77-year-old male with a PMH significant for?AFib on Eliquis, sick sinus syndrome with pacemaker in place, HTN, and rectal cancer currently on oral chemotherapy and receiving radiation followed by Dr. Gaxiola who presents to the ED with?severe epigastric pain. Patient states symptoms began when he awoke at 02:00 to use the bathroom. Patient reports having severe burning pain in his epigastric region that radiated up his throat and also to his right side. Patient felt nauseous, but could not vomit. Patient states that it felt like acid reflux only much worse. Patient also states he has been experiencing some minor pain when swallowing and also difficulty with swelling for the past 3-4 days. Patient has recently started chemotherapy and radiation at the beginning of this month for rectal cancer. Patient reports having decreased appetite with reduced p.o. intake since starting treatment, says he has been eating and drinking very little the past few days. Has also noticed decreased urine output. Denies diarrhea, but states stool is softer than usual. Patient denies chest pressure, palpitations. No fever, chills, abdominal pain. In the ED patient was afebrile and hypotensive as low as 97/50. Labs were significant for stable H&H of 9.8/29.9, initial sodium 133, potassium 5.3, bicarb is low as 8, BUN 126, creatinine 5.21. No leukocytosis. Troponin 6.7. Hepatic function baseline. UA with proteinuria of 30, negative for UTI. CXR showed no acute intrathoracic disease. CT?of abdomen/pelvis a 1.5 cm contour abnormality in left kidney in the lateral midpole remains concerning for underlying mass, suggest consider MRI imaging, and also found possible filling deficit in the rectosigmoid colon. EKG showed atrial paced rhythm without evidence of ST elevations or depressions and QTc 416. Pt was treated with GI cocktail, IVF, and placed on a sodium bicarb drip. Pt will be admitted to the hospital for treatment of ANIL in the setting of recently starting chemo and radiation with likely GI toxicity secondary to chemotherapy. <SEBASTIAN Edward - Last Filed: 11/09/22 19:11> Review of Systems 2 Review of Systems: Epigastric pain radiating to the throat and right-sided chest Nausea, no vomiting Dysphagia, odynophagia Generalized weakness Denies chest pressure, palpitations No fever, chills Denies abdominal pain No diarrhea, but stool softer than normal <SEBASTIAN Edward - Last Filed: 11/09/22 19:11> [facility] Medical History: Medical History Aftercare following left shoulder joint replacement surgery Pacemaker OA (osteoarthritis) Borderline hyperlipidemia Obesity HTN (hypertension) EtOH dependence Mild cognitive impairment Inhibited sex excitement Atrial fibrillation Cancer of kidney High cholesterol Hypertension <SEBASTIAN Edward - Last Filed: 11/09/22 19:11> Family History: Family History Mother Heart problem <SEBASTIAN Edward - Last Filed: 11/09/22 19:11> Social History: Social History Household Members: Spouse Housing: House Do you presently have visiting nurse or other home services: No Alcohol intake: former Patient Tobacco Use Status: Former Tobacco user Smoked in Last 30 Days: No Use of substances other than those prescribed or required for medical reasons: No Currently Displaying Signs/Symptoms of Drug Intoxication Withdrawal: No Have you been hit, kicked, punched, or otherwise hurt by someone within the past year? If so, by whom?: No Do you feel safe in your current relationship?: Yes Is there a partner from a previous relationship who is making you feel unsafe now?: No Are you made to feel afraid or neglected: No Advance Directives: No Advance Directives Information Provided: Yes Do you have thoughts of harming others: None Do you have a plan to hurt others: No Plan Recently lost weight without trying: Unsure How much weight loss: Unsure Nutrition Risks: No Nutritional Risk service: Yes <SEBASTIAN Edward - Last Filed: 11/09/22 19:11> Meds Allergies/Adverse reactions: Allergies Allergy/AdvReac Type Severity Reaction Status Date / Time No Known Allergies [NKA] Allergy Mild NOT Verified 11/04/22 18:18 APPLICABLE <SEBASTIAN Edward Last Filed: 11/09/22 19:11> Active Medications: Current Medications Sodium Chloride (Ns) 1,000 mls @ 100 mls/hr IVCONT .Q10H NILE Sodium Bicarbonate 150 meq/ (Dextrose) 1,000 mls @ 50 mls/hr IV .Q20H NILE <SEBASTIAN Edward - Last Filed: 11/09/22 19:11> Home medications: Home Medications Medication Instructions Recorded Confirmed Last Taken Type apixaban 5 mg tablet (Eliquis) 5 mg PO BID 06/27/22 11/09/22 Unknown History <SEBASTIAN Edward Last Filed: 11/09/22 19:11> Physical Exam 2 Vital Signs and Narrative: Vital Signs: Last Vital Signs Temp 97.5 F 11/09/22 13:58 Pulse 63 11/09/22 12:49 Resp 18 11/09/22 12:49 BP 123/52 L 11/09/22 12:49 Pulse Ox 97 11/09/22 12:49 O2 Del Method Room Air 11/09/22 12:49 BMI result Body Mass Index 26.9 <SEBASTIAN Edward Last Filed: 11/09/22 19:11> Constitutional: Alert, in no acute distress. Mental Status: Oriented to person, place and time. Eyes: Pupils are equal, round, and reactive to light. Ear, Nose, and Throat: Oropharynx with white plaque on tongue that scrapes off, see picture below. Mucous membranes dry. Ears and nose without deformities. Trachea midline. Respiratory: Clear to auscultation bilaterally. No wheezing, rales, or rhonchi. Cardiovascular: S1, S2 regular. No murmurs, rubs, or gallops. Gastrointestinal: Abdomen soft, non-tender, non-distended. Normal bowel sounds. Neurologic: Cranial nerves II-XII are grossly intact bilaterally. No focal neurological deficits. Moves all extremities spontaneously. Skin: No rashes or lesions noted. Musculoskeletal: No cyanosis or clubbing. Extremities: No edema. Psychiatric: Normal mood and affect. <SEBASTIAN Edward Last Filed: 11/09/22 19:11> Results Labs CBC and Chem 7: 11/10/22 10:31 11/10/22 10:32 <SEBASTIAN Edward - Last Filed: 11/09/22 19:11> Labs: Laboratory Results - last 24 hr 11/09/22 11/09/22 09:32 12:17 MCV 87.9 MCH 28.8 MCHC 32.8 RDW 25.8 H Plt Count 160 D MPV 10.4 Immature Gran % (Auto) 0.9 H Neut % (Auto) 91.8 H Lymph % (Auto) 2.8 L Moffat % (Auto) 3.8 Eos % (Auto) 0.6 Baso % (Auto) 0.1 Lymph # (Auto) 0.3 L Moffat # (Auto) 0.4 Eos # (Auto) 0.1 Baso # (Auto) 0.0 Abs Immat Gran (auto) 0.10 H Absolute Neuts (auto) 9.8 H Absolute Nucleated RBC 0.000 Nucleated RBC % (auto) 0.0 Smear Tech's Comments VERIFIED Anion Gap 20 19 Estim Creat Clear Calc 12.0 13.7 Estimated GFR 11 13 Random Glucose 135 H 113 Calcium 7.8 L D 7.1 L D Magnesium 2.5 Total Bilirubin 0.6 Direct Bilirubin 0.2 AST 30 ALT 8 Alkaline Phosphatase 100 Total Creatine Kinase 128 Total Protein 7.6 Albumin 3.9 Lipase 76 Urine Color Yellow Urine Appearance Clear Urine pH 5.0 Ur Specific [place] 1.015 Urine Protein 30 (1+) H Urine Glucose (UA) Negative Urine Ketones Negative Urine Blood Negative Urine Nitrite Negative Ur Leukocyte Esterase Negative Urine RBC 0-2 Urine WBC 0-5 Ur Squamous Epith Cells 0-2 Urine Bacteria None Seen Hyaline Casts 6-10 <SEBASTIAN Edward - Last Filed: 11/09/22 19:11> Imaging Radiologist's Impressions: Impressions Chest X-Ray 11/09/22 09:39 IMPRESSION: No acute intrathoracic disease. Borderline cardiac enlargement. New pacemaker in place. Abdomen/Pelvis CT 11/09/22 10:28 IMPRESSION: 1.5 cm contour abnormality of the left kidney in the lateral midpole remains concerning for underlying mass. Further evaluation/characterization with MR imaging may be considered. Possible filling defect in the rectosigmoid colon. Advise correlation with direct visualization. <SEBASTIAN Edward - Last Filed: 11/09/22 19:11> Assessment and Plan (1) Candidiasis of mouth: Status: Acute <SEBASTIAN Edward - Last Filed: 11/09/22 19:11> (2) Acute renal failure: Qualifiers: Acute renal failure type: unspecified Qualified Code(s): N 17.9 - Acute kidney failure, unspecified <SEBASTIAN Edward - Last Filed: 11/09/22 19:11> Status: Acute <SEBASTIAN Edward - Last Filed: 11/09/22 19:11> Pt is a Australian-speaking 77-year-old male with a PMH significant for?AFib on Eliquis, sick sinus syndrome with pacemaker in place, HTN, and rectal cancer currently on oral chemotherapy and receiving radiation followed by Dr. Gaxiola who presents to the ED with?severe epigastric pain. Pt will be admitted to the hospital for treatment of ANIL in the setting of recently starting chemo and radiation with likely GI toxicity secondary to chemotherapy. ANIL Pt with creatinine 5.21, up from 1.23 on 10/16/2022 Likely secondary to dehydration and reduced po intake from complications from starting chemo and radiation for rectal cancer, including oral candidiasis and possible GI toxicity Patient placed on sodium bicarb drip Will get urine studies: Urine creatinine, urine osmolality, urine sodium Hold lisinopril, capecitabine Nephrology consult Monitor on telemetry Epigastric pain Patient's main presenting symptom was severe epigastric pain radiating to throat and right-sided since the a.m. Possibly secondary to Xeloda which can cause GI toxicity and upset Patient with anorexia, reduced p.o. intake Patient received GI cocktail in the ED Will give Protonix IV b.i.d. Hold Xeloda for now Oral candidiasis Patient with white plaque on tongue that scrapes off, pt with odynophagia, dysphagia Likely secondary to starting chemotherapy, radiation Will start fluconazole 100 mg x1 dose, then fluconazole 50 mg qd x13 days renally dosed, started 11/09/2022 Rectal cancer Patient started on chemotherapy and Xeloda on 10/11/2022 Will hold Xeloda d/t ANIL, GI upset Oncology consult Normocytic anemia H&H 9.8/29.9, seems stable, at baseline Follow CBC HTN Hold lisinopril d/t ANIL Monitor BP AFib Continue metoprolol Continue Eliquis at full dose, pt does not meet renal dosing requirements Renal mass CT found 1.5 mm contour abnormality of left kidney lateral midpole, concerning for underlying mass Initially found over 1 year ago Patient follows up outpatient with imaging done every 6 months Continue to follow-up outpatient Full Code Attending:?Dr. Horne DVT Prophylaxis: On Eliquis Pt will require a hospitalization of at least two nights for treatment of ANIL in the setting of recently starting chemo and radiation with likely GI toxicity secondary to chemotherapy. Pt will be receiving IVF, Bicarb, IV PPI, close monitoring, and specialist consultation. <SEBASTIAN Edward - Last Filed: 11/09/22 19:11> Pt is a Australian-speaking 77-year-old male with a PMH significant for?AFib on Eliquis, sick sinus syndrome with pacemaker in place, HTN, and rectal cancer currently on oral chemotherapy and receiving radiation followed by Dr. Gaxiola who presents to the ED with?severe epigastric pain. Pt will be admitted to the hospital for treatment of ANIL in the setting of recently starting chemo and radiation with likely GI toxicity secondary to chemotherapy. ANIL Pt with creatinine 5.21, up from 1.23 on 10/16/2022 Likely secondary to dehydration and reduced po intake from complications from starting chemo and radiation for rectal cancer, including oral candidiasis and possible GI toxicity Patient placed on sodium bicarb drip Will get urine studies: Urine creatinine, urine osmolality, urine sodium Hold lisinopril, capecitabine Nephrology consult Monitor on telemetry Epigastric pain Patient's main presenting symptom was severe epigastric pain radiating to throat and right-sided since the a.m. Possibly secondary to Xeloda which can cause GI toxicity and upset Patient with anorexia, reduced p.o. intake Patient received GI cocktail in the ED Will give Protonix IV b.i.d. Hold Xeloda for now Oral candidiasis Patient with white plaque on tongue that scrapes off, pt with odynophagia, dysphagia Likely secondary to starting chemotherapy, radiation Will start fluconazole 100 mg x1 dose, then fluconazole 50 mg qd x13 days renally dosed, started 11/09/2022 Rectal cancer Patient started on chemotherapy and Xeloda on 10/11/2022 Will hold Xeloda d/t ANIL, GI upset Oncology consult Normocytic anemia H&H 9.8/29.9, seems stable, at baseline Follow CBC HTN Hold lisinopril d/t ANIL Monitor BP AFib Continue metoprolol Continue Eliquis at full dose, pt does not meet renal dosing requirements Renal mass CT found 1.5 mm contour abnormality of left kidney lateral midpole, concerning for underlying mass Initially found over 1 year ago Patient follows up outpatient with imaging done every 6 months Continue to follow-up outpatient Full Code Attending:?Dr. Horne DVT Prophylaxis: On Eliquis Pt will require a hospitalization of at least two nights for treatment of ANIL in the setting of recently starting chemo and radiation with likely GI toxicity secondary to chemotherapy. Pt will be receiving IVF, Bicarb, IV PPI, close monitoring, and specialist consultation. Addendum to history and physical by the advanced practice provider, SEBASTIAN Shannon, DOS 11/09/22 I interviewed and examined the patient. I discussed their presentation and management with the KELLY. I reviewed the history and physical and agree with the documentation, with the following additions and corrections: This history was taken in [place] from the patient. 77yo M with AF on apixaban, SSS s/p PPM, HTN, rectal CA on chemotherapy/XRT presenting with burning epigastric pain with dysphagia. Anorexia for several days. Found to be in ANIL with BUN/Cr 126/5.21 with severe acidemia, serum bicarb 8. Noted to have thrush on tongue. On CT, a 1.5 cm contour abnormality in left kidney in the lateral midpole remains concerning for underlying mass Impression is of prerenal ANIL. Will place on bicarbonate drip, consult Nephrology, hold MISSAEL-I and Xeloda. Treat presumptively for esophageal and oral candidiasis with IV fluconazole after checking QTc. Re: incidental renal mass, it was discovered >1 yr ago and is followed with serial imaging q6mo <Roxann Horne MD - Last Filed: 11/10/22 12:09> Time Spent With Patient Time: Total time managing care of this patient today ____ minutes. <SEBASTIAN Edward - Last Filed: 11/09/22 19:11> Quality Stroke Does the patient have a stroke diagnosis?: No <SEBASTIAN Edward - Last Filed: 11/09/22 19:11> VTE Prior VTE?: No <SEBASTIAN Edward - Last Filed: 11/09/22 19:11> VTE Risk Level:: Medical - moderate - high <SEBASTIAN Edward - Last Filed: 11/09/22 19:11> VTE Device Contraindication: Treatment Not Indicated <SEBASTIAN Edward - Last Filed: 11/09/22 19:11> VTE Drug Contraindication: N/A - Med Ordered <SEBASTIAN Edward - Last Filed: 11/09/22 19:11>
[2022-11-09] MEDS: Nystatin Oral Susp 500,000 UNIT/5 ML ORAL.SUSP 400000 UNIT PO (15:24)
[2022-11-09] MEDS: Lidocaine HCl 2 % Urojet 10 ML JEL.PF.APP TOPICAL (15:26)
--- NOTE | 2022-11-09 15:30 | PC.NURSE ---
right arm us-guided iv removed. consulting estevan giron to come to [place]- rn also called pharmacy. painful/swollen. no redness/coldness/red streaks/discoloration. elevated. awaiting further advising.
--- NOTE | 2022-11-09 16:02 | PC.NURSE ---
provider estella giron made aware pt r arm iv not working- multiple rn's tried to place new iv- unable. pausing biccon carrion. pa made aware.
--- NOTE | 2022-11-09 16:51 | PHA.MEDREC ---
Pharmacy Consult ? Medication Reconciliation Pharmacy has completed the medication reconciliation.MED REC COMPLETE BASED ON CLAIM HISTORY AND MD REPORT FROM 10/26
--- NOTE | 2022-11-09 17:05 | PC.NURSE ---
pa came to bedside to eval r arm- states no intervention needed except warm compresses- arm elevated w compress
--- NOTE | 2022-11-09 17:05 | PC.NURSE ---
report called- no transport- attempting to find tech to bring up- report called earlier to janette balderas
--- NOTE | 2022-11-09 17:20 | PC.NURSE ---
medical affairs manager able to bring pt upstairs.
[2022-11-09] MEDS: Pantoprazole Sodium 40 MG/10 ML VIAL IVPUSH (18:03)
[2022-11-09] MEDS: Acetaminophen 325 MG TABLET 650 MG PO (18:03)
[2022-11-09] MEDS: Fluconazole in NaCl,Iso-Osm 100 MG in Container,Empty 0 ML 50 MG IV (18:22)
[2022-11-09] MEDS: Metoprolol Tartrate 5 MG/5 ML VIAL IVPUSH (19:18)
[2022-11-09 20:10] LABS: Osmolality Urine 368 mosm/kg (373-1093); Sodium Urine Random < 20.0 mmol/L
[2022-11-09 20:14] LABS: Creatinine Urine 113.58 mg/dL
[2022-11-09] MEDS: Metoprolol Tartrate 100 MG TABLET PO (20:18)
[2022-11-09] MEDS: Apixaban 5 MG TABLET PO (20:18)
[2022-11-09] MEDS: Phenazopyridine HCL 100 MG TABLET PO (20:19)
[2022-11-09 21:36] LABS: Troponin-I High Sensitivity 8.4 ng/L (<3.5-35.0)
[2022-11-09 21:47] LABS: Anion Gap 19 (12-20); Blood Urea Nitrogen 125 mg/dL (9-16); Calcium 7.4 mg/dL (8.4-10.2); Carbon Dioxide 10 mmol/L (22-29); Chloride 113 mmol/L (96-108); Creatinine Clr Calc Pharmacy 17.2; Estimated Glomerular Filt Rate 15; Glucose Random 112 mg/dL (60-115); Magnesium 2.2 mg/dL (1.6-2.6); Sodium 138 mmol/L (135-145)
[2022-11-09] MEDS: oxyCODONE HCl Immed Release 5 MG TABLET PO (22:09)
[2022-11-09] MEDS: Famotidine 20 MG TABLET PO (22:10)
[2022-11-09] MEDS: Calcium Carbonate 750 MG TAB.CHEW PO (22:10)
[2022-11-09] MEDS: traZODone HCL 50 MG TABLET PO (22:10)
[2022-11-09 23:14] LABS: Appearance Urine Clear; Glucose Urine UA Negative (Negative); Leukocyte Esterase Urine Small (1+) (Negative); Nitrite Urine Negative (Negative); PH 5.5 (5.0-9.0); Specific Gravity - Urine 1.015 (1.005-1.025); UMIC TRIGGER UACC YES; Urine Blood Large (3+) (Negative); Urine Ketones Negative (Negative); Urine Protein 100 (2+) mg/dL (Neg-Trace)
[2022-11-09 23:15] LABS: Color Urine Yellow
[2022-11-09 23:25] LABS: Bacteria Urine None Seen (None Seen); RBC Urine >20 /HPF (0-2); Squamous Epithelial Cell Urine 0-2 /HPF (0-2); UACC Culture Trigger YES; WBC Urine 0-5 /HPF (0-5)
[2022-11-10] VITALS (12 sets, daily range): BP systolic 92–133; BP diastolic 41–57; PULSE 60–95; RESP 18–20; TEMP 36.1–37.1; O2SAT 96–100
[2022-11-10] MEDS: 0.9 % Sodium Chloride Flush 3 ML SYRINGE IVFLUSH ×2 (01:38→15:48)
[2022-11-10] MEDS: Acetaminophen 325 MG TABLET 650 MG PO (03:42)
[2022-11-10] MEDS: Sodium Bicarbonate 8.4% 150 MEQ in Dextrose 5 % 850 ML 50 MEQ IV (05:23)
[2022-11-10] MEDS: Pantoprazole Sodium 40 MG/10 ML VIAL IVPUSH ×2 (05:23→16:04)
[2022-11-10] MEDS: Phenazopyridine HCL 100 MG TABLET PO ×2 (07:40→16:04)
[2022-11-10] MEDS: 0.9 % Sodium Chloride 1,000 ML 999 ML IVCONT (07:41)
[2022-11-10] MEDS: Apixaban 2.5 MG TABLET PO (07:41)
[2022-11-10] MEDS: Metoprolol Tartrate 100 MG TABLET PO ×2 (07:41→22:38)
[2022-11-10] MEDS: HYDROmorphone HCl 0.5 MG/0.5 ML SYRINGE 0.25 MG IVPUSH ×4 (08:47→22:28)
--- NOTE | 2022-11-10 09:36 | MHC.CM.PN ---
CM MET WITH PT WITH A BACKFILLER PT REPORTS HE LIVES WITH HIS AND IS INDEPENDENT WITH CARE HE DENIES USE OF DME OR HOME SERVICES HE IS INTERESTED IN SIGNING A HCP NAMING HIS , JAMLA HIS AGENT PCP AT THE [facility], MIHAELA MONTERO DCP: HOME NO SERVICES VIA PRIVATE TRANSPORT
[2022-11-10 10:50] LABS: Anion Gap 16 (12-20); Blood Urea Nitrogen 119 mg/dL (9-16); Calcium 7.3 mg/dL (8.4-10.2); Carbon Dioxide 12 mmol/L (22-29); Chloride 118 mmol/L (96-108); Creatinine Clr Calc Pharmacy 21.6; Estimated Glomerular Filt Rate 19; Glucose Random 128 mg/dL (60-115); Potassium 4.3 mmol/L (3.3-5.1); Sodium 142 mmol/L (135-145)
[2022-11-10 11:04] LABS: Mean Corpuscular HGB Conc 32.2 g/dl (31.0-36.0); Mean Corpuscular Hemoglobin 28.4 pg (27.0-33.0); Mean Corpuscular Volume 88.4 fL (80.0-98.0); Mean Platelet Volume 9.9 fL (9.4-12.4); Platelet Count 105 X10*3/uL (160-400); Red Blood Count 2.32 X10*6/uL (4.60-5.80); Red Cell Distribution Width 25.9 % (11.0-16.0); White Blood Count 5.3 X10*3/uL (4.8-10.8)
[2022-11-10 11:18] LABS: Hemoglobin 6.6 g/dl (14.0-18.0)
--- NOTE | 2022-11-10 11:18 | PM.CNNEP ---
History of Present Illness Reason for Consult Consult date: 11/10/22 Chief Complaint Chief complaint: Epigastric pain, ANIL History of Present Illness Narrative: 77-year-old male with rectal cancer currently on oral chemotherapy and receiving radiation followed by Dr. Gaxiola who presents to the ED with?severe epigastric pain. He has CKD 3 at baseline. He has been feeling nauseous. Patient has recently started chemotherapy and radiation at the beginning of this month for rectal cancer. Patient reports having decreased appetite with reduced p.o. intake since starting treatment. He has been eating and drinking very little the past few days. Has also noticed decreased urine output. Denies diarrhea, but states stool is softer than usual. Patient denies chest pressure, palpitations. No fever, chills, abdominal pain. In the ED patient was afebrile and hypotensive as low as 97/50. Labs were significant for stable H&H of 9.8/29.9, initial sodium 133, potassium 5.3, bicarb is low as 8, BUN 126, creatinine 5.21.. CT?of abdomen/pelvis a 1.5 cm contour abnormality in left kidney in the lateral midpole remains concerning for underlying mass and also found possible filling deficit in the rectosigmoid colon. Pt was admitted and was started on a sodium bicarb drip. Nephrology has been consulted to assist in her clinical care during her current hospital stay. Review of Systems Review of Systems Yes all other systems are reviewed and are negative [facility] Past Medical History Medical History Aftercare following left shoulder joint replacement surgery Pacemaker OA (osteoarthritis) Borderline hyperlipidemia Obesity HTN (hypertension) EtOH dependence Mild cognitive impairment Inhibited sex excitement Atrial fibrillation Cancer of kidney High cholesterol Hypertension Family History Family History Mother Heart problem Social History Social History Household Members: Spouse Housing: House Do you presently have visiting nurse or other home services: No Alcohol intake: former Patient Tobacco Use Status: Former Tobacco user Smoked in Last 30 Days: No Use of substances other than those prescribed or required for medical reasons: No Currently Displaying Signs/Symptoms of Drug Intoxication Withdrawal: No Have you been hit, kicked, punched, or otherwise hurt by someone within the past year? If so, by whom?: No Do you feel safe in your current relationship?: Yes Is there a partner from a previous relationship who is making you feel unsafe now?: No Are you made to feel afraid or neglected: No Advance Directives: No Advance Directives Information Provided: Yes Do you have thoughts of harming others: None Do you have a plan to hurt others: No Plan Recently lost weight without trying: Unsure How much weight loss: Unsure Nutrition Risks: No Nutritional Risk service: Yes Meds Allergies Allergy/AdvReac Type Severity Reaction Status Date / Time No Known Allergies [NKA] Allergy Mild NOT Verified 11/04/22 18:18 APPLICABLE Active Medications: Current Medications Acetaminophen (Acetaminophen 325 Mg Tablet) 650 mg PO Q6H PRN PRN Reason: Pain, Mild (Pain Scale 1-3) Last Admin: 11/10/22 03:42 Dose: 650 mg Apixaban (Apixaban 2.5 Mg Tablet) 2.5 mg PO BID [facility] Last Admin: 11/10/22 07:41 Dose: 2.5 mg Calcium Carbonate (Calcium Carbonate 750 Mg Tab.Chew) 750 mg PO Q6H PRN PRN Reason: Heartburn Last Admin: 11/09/22 22:10 Dose: 750 mg Hydromorphone HCl (Hydromorphone Hcl 0.5 Mg/0.5 Ml Syringe) 0.25 mg IVPUSH Q4H PRN; Protocol PRN Reason: severe pain Last Admin: 11/10/22 08:47 Dose: 0.25 mg Sodium Bicarbonate 150 meq/ (Dextrose) 1,000 mls @ 150 mls/hr IV .Q6H40M [facility] Last Admin: 11/10/22 05:23 Dose: 50 mls/hr Fluconazole 50 mg/ IV (Miscellaneous Supplies) 25 mls @ 25 mls/hr IV Q24H [facility] Metoprolol Tartrate (Metoprolol Tartrate 100 Mg Tablet) 100 mg PO BID [facility]; Protocol Last Admin: 11/10/22 07:41 Dose: 100 mg Ondansetron HCl (Ondansetron Hcl 4 Mg/2 Ml Vial) 4 mg IVPUSH Q8H PRN PRN Reason: Nausea and Vomiting Pantoprazole Sodium (Pantoprazole Sodium 40 Mg/10 Ml Vial) 40 mg IVPUSH BID@0630,1630 [facility] Last Admin: 11/10/22 05:23 Dose: 40 mg Phenazopyridine HCl (Phenazopyridine Hcl 100 Mg Tablet) 100 mg PO BIDWM [facility] Stop: 11/11/22 08:01 Last Admin: 11/10/22 07:40 Dose: 100 mg Sodium Chloride (0.9 % Sodium Chloride Flush 3 Ml Syringe) 3 ml IVFLUSH QSHIFT [facility] Last Admin: 11/10/22 07:32 Dose: Not Given Home Medications Medication Instructions Recorded Confirmed Last Taken Type apixaban 5 mg tablet (Eliquis) 5 mg PO BID 06/27/22 11/09/22 Unknown History Physical Exam Vital Signs: Last Vital Signs Temp 98.5 F 11/10/22 11:08 Pulse 62 11/10/22 11:08 Resp 20 11/10/22 11:08 BP 92/47 L 11/10/22 11:08 Pulse Ox 100 11/10/22 11:08 O2 Del Method Room Air 11/10/22 11:08 BMI result Body Mass Index 27.8 Const General: cooperative Eyes EOM: EOMs intact bilaterally Resp Auscultation: diminished lung sounds Cardio Rate: regular rate GI Palpation (GI): Soft to palpation Neuro General: moves all extremities Results Lab Results 11/09/22 09:32 11/10/22 10:32 Lab results: Chemistry 11/09/22 11/09/22 11/09/22 09:32 12:17 21:07 Sodium 133 L 135 138 Potassium 5.3 H D 4.4 4.0 Carbon Dioxide 11 L 8 L* D 10 L* D BUN 126 H 123 H 125 H Creatinine 5.21 H* 4.58 H* 3.95 H Calcium 7.8 L D 7.1 L D 7.4 L 11/10/22 10:32 Sodium 142 Potassium 4.3 Carbon Dioxide 12 L BUN 119 H Creatinine 3.14 H Calcium 7.3 L Hematology 11/09/22 09:32 WBC 10.7 Hgb 9.8 L Plt Count 160 D Urinalysis 11/09/22 11/09/22 12:17 22:50 Urine Color Yellow Yellow Urine Appearance Clear Clear Urine pH 5.0 5.5 Ur Specific [place] 1.015 1.015 Urine Protein 30 (1+) H 100 (2+) H Urine Glucose (UA) Negative Negative Urine Ketones Negative Negative Urine Blood Negative Large (3+) H Urine Nitrite Negative Negative Ur Leukocyte Esterase Negative Small (1+) H Urine RBC 0-2 >20 H Urine WBC 0-5 0-5 Ur Squamous Epith Cells 0-2 0-2 Hyaline Casts 6-10 3-5 Urine Studies 11/09/22 19:27 Urine Osmolality 368 L Urine Creatinine 113.58 Assessment and Plan (1) Acute renal failure: Qualifiers: Acute renal failure type: unspecified Qualified Code(s): N17.9 - Acute kidney failure, unspecified Status: Acute Time Spent With Patient Time: ANIL likely due to tubular injury Obstruction ruled out by imaging Urine Na < 20; Acidotic; On NaHCO3 drip- HCO3 better DDX- TLS( no evidence)/ direct toxicity by chemotherapeutic agent Serum creatinine better with supportive care. Labs AM Procedures Date of Service Date of Service: 11/10/22
[2022-11-10] MEDS: Sodium Bicarbonate 8.4% 150 MEQ in Dextrose 5 % 850 ML 125 MEQ IV (11:50)
--- NOTE | 2022-11-10 12:13 | HO.PM.IMPN ---
Subjective Subjective Date of Service: 11/10/22 Interval History: last evening, had AF/RVR with rate in 150s got 1 dose IV metoprolol converted to NSR @ 5:55 this AM c/o pain from [place] HCO3 up to 12 anemic; consents for blood transfusion ongoing burning epigastric pain + dysphagia This history was taken in [place] from the patient. Review of Systems Review of Systems: Yes all other systems are reviewed and are negative Physical Exam Vital Signs: Vital Signs: Last Vital Signs Temp 98.5 F 11/10/22 11:08 Pulse 62 11/10/22 11:08 Resp 20 11/10/22 11:08 BP 92/47 L 11/10/22 11:08 Pulse Ox 100 11/10/22 11:08 O2 Del Method Room Air 11/10/22 11:08 BMI result Body Mass Index 27.8 Gen: in no acute distress HEENT: sclera anicteric, thrush on tongue Neck: supple Lungs: clear to auscultation bilaterally Heart: regular rate and rhythm, no murmurs Abd: soft, non-tender, non-distended Ext: no edema Skin: warm/well-perfused Neuro: alert and oriented x3, no focal findings Psych: appropriate affect Objective Data Active Medications Acetaminophen (Acetaminophen 325 Mg Tablet) 650 mg PO Q6H PRN PRN Reason: Pain, Mild (Pain Scale 1-3) Last Admin: 11/10/22 03:42 Dose: 650 mg Documented By: ANDREW Apixaban (Apixaban 2.5 Mg Tablet) 2.5 mg PO BID [facility] Last Admin: 11/10/22 07:41 Dose: 2.5 mg Documented By: SHANNAN Calcium Carbonate (Calcium Carbonate 750 Mg Tab.Chew) 750 mg PO Q6H PRN PRN Reason: Heartburn Last Admin: 11/09/22 22:10 Dose: 750 mg Documented By: ANDREW Hydromorphone HCl (Hydromorphone Hcl 0.5 Mg/0.5 Ml Syringe) 0.25 mg IVPUSH Q4H PRN; Protocol PRN Reason: severe pain Last Admin: 11/10/22 08:47 Dose: 0.25 mg Documented By: SHANNAN Sodium Bicarbonate 150 meq/ (Dextrose) 1,000 mls @ 125 mls/hr IV .Q8H [facility] Last Admin: 11/10/22 11:50 Dose: 125 mls/hr Documented By: SHANNAN Fluconazole 50 mg/ IV (Miscellaneous Supplies) 25 mls @ 25 mls/hr IV Q24H [facility] Sodium Chloride (Ns) 100 mls @ 100 mls/hr IV ONCE ONE Stop: 11/10/22 12:16 Sodium Chloride (Ns) 100 mls @ 100 mls/hr IV ONCE ONE Stop: 11/10/22 12:16 Metoprolol Tartrate (Metoprolol Tartrate 100 Mg Tablet) 100 mg PO BID [facility]; Protocol Last Admin: 11/10/22 07:41 Dose: 100 mg Documented By: SHANNAN Ondansetron HCl (Ondansetron Hcl 4 Mg/2 Ml Vial) 4 mg IVPUSH Q8H PRN PRN Reason: Nausea and Vomiting Pantoprazole Sodium (Pantoprazole Sodium 40 Mg/10 Ml Vial) 40 mg IVPUSH BID@0630,1630 [facility] Last Admin: 11/10/22 05:23 Dose: 40 mg Documented By: ANDREW Phenazopyridine HCl (Phenazopyridine Hcl 100 Mg Tablet) 100 mg PO BIDWM [facility] Stop: 11/11/22 08:01 Last Admin: 11/10/22 07:40 Dose: 100 mg Documented By: SHANNAN Sodium Chloride (0.9 % Sodium Chloride Flush 3 Ml Syringe) 3 ml IVFLUSH QSHIFT [facility] Last Admin: 11/10/22 07:32 Dose: Not Given Documented By: SHANNAN Non-Admin Reason: IV Running Labs 11/10/22 10:31 11/10/22 10:32 Labs: Laboratory Results - last 24 hr 11/09/22 11/09/22 11/09/22 12:17 19:27 21:07 MCV MCH MCHC RDW Plt Count MPV Absolute Nucleated RBC Nucleated RBC % (auto) Hold Purple Top SEE NOTE Anion Gap 19 19 Estim Creat Clear Calc 13.7 17.2 Estimated GFR 13 15 Random Glucose 113 112 Calcium 7.1 L D 7.4 L Magnesium 2.2 Urine Color Yellow Urine Appearance Clear Urine pH 5.0 Ur Specific [place] 1.015 Urine Protein 30 (1+) H Urine Glucose (UA) Negative Urine Ketones Negative Urine Blood Negative Urine Nitrite Negative Ur Leukocyte Esterase Negative Urine RBC 0-2 Urine WBC 0-5 Ur Squamous Epith Cells 0-2 Urine Bacteria None Seen Hyaline Casts 6-10 Urine Osmolality 368 L Ur Random Sodium < 20.0 Urine Creatinine 113.58 Crossmatch 11/09/22 11/10/22 11/10/22 22:50 10:31 10:32 MCV 88.4 MCH 28.4 MCHC 32.2 RDW 25.9 H Plt Count 105 L D MPV 9.9 Absolute Nucleated RBC 0.000 Nucleated RBC % (auto) 0.0 Hold Purple Top Anion Gap 16 Estim Creat Clear Calc 21.6 Estimated GFR 19 Random Glucose 128 H Calcium 7.3 L Magnesium Urine Color Yellow Urine Appearance Clear Urine pH 5.5 Ur Specific [place] 1.015 Urine Protein 100 (2+) H Urine Glucose (UA) Negative Urine Ketones Negative Urine Blood Large (3+) H Urine Nitrite Negative Ur Leukocyte Esterase Small (1+) H Urine RBC >20 H Urine WBC 0-5 Ur Squamous Epith Cells 0-2 Urine Bacteria None Seen Hyaline Casts 3-5 Urine Osmolality Ur Random Sodium Urine Creatinine Crossmatch 11/10/22 11:46 MCV MCH MCHC RDW Plt Count MPV Absolute Nucleated RBC Nucleated RBC % (auto) Hold Purple Top Anion Gap Estim Creat Clear Calc Estimated GFR Random Glucose Calcium Magnesium Urine Color Urine Appearance Urine pH Ur Specific [place] Urine Protein Urine Glucose (UA) Urine Ketones Urine Blood Urine Nitrite Ur Leukocyte Esterase Urine RBC Urine WBC Ur Squamous Epith Cells Urine Bacteria Hyaline Casts Urine Osmolality Ur Random Sodium Urine Creatinine Crossmatch See Detail Assessment and Plan (1) Acute renal failure: Status: Acute Plan d2 77yo M with AF on apixaban, SSS s/p PPM, HTN, rectal CA on chemotherapy/XRT presenting with burning epigastric pain with dysphagia, anorexia admitted for ANIL with severe acidemia ANIL metabolic acidosis - suspect prerenal from dehydration/poor PO intake from chemo; continue isotonic bicarbonate drip and monitoring of BMP daily - hold lisinopril + Xeloda normocytic anemia - transfuse 2u PRBCs, check FOBT, monitor H+H epigastric pain - likely GI toxicity of Xeloda; continue PPI IV oral/esophageal candidiasis - IV fluconazole, renally dosed rectal CA - recently started chemotherapy + XRT; hold Xeloda; Heme-Onc consult HTN - hold lisinopril, continue metoprolol paroxysmal AF with RVR - continue metoprolol - continue apixaban renal mass - outpt surveillance q6mo VTE ppx - apixaban dispo - TBD In my clinical judgment, the patient requires continued inpatient hospitalization for the following reasons: transfusion, IV bicarbonate, lab monitoring Time Spent With Patient Time: Total time managing care of this patient today __50__ minutes. Quality Stroke Does the patient have a stroke diagnosis?: No VTE Prior VTE?: No VTE Risk Level:: Medical - moderate - high VTE Device Contraindication: Treatment Not Indicated VTE Drug Contraindication: N/A - Med Ordered
[2022-11-10 12:32] LABS: Hematocrit 20.5 % (42.0-52.0)
[2022-11-10 14:23] LABS: OBS Int Ctl Valid YES; OBS1 NEGATIVE (NEGATIVE)
--- NOTE | 2022-11-10 16:25 | PM.HEMONCCN ---
Subjective - Subjective Chief complaint: Consult for: Rectal carcinoma Patient: known to practice within the last 3 years Consult date: 11/10/22 Primary Care Provider: Joao Duncan Medical Summary: DIAGNOSIS: RECTAL CARCINOMA. ON CHEMORADIATION. ANEMIA. GI DISTRESS. HPI - Consult Narrative Reason for consult: Consult for: 1. Anemia. 2. GI distress. 3. Rectal carcinoma. Narrative: Mehran Samuel is a 77 year old gentleman with a recent diagnosis of rectal carcinoma. Patient has been on combined modality therapy with chemo and radiation. He presented to the hospital yesterday to the ED with?severe epigastric pain. Patient states symptoms began when he awoke at 02:00 to use the bathroom. Patient reports having severe burning pain in his epigastric region that radiated up his throat and also to his right side. Patient felt nauseous, but could not vomit.He said that it felt like acid reflux only much worse. He has been experiencing some minor pain when swallowing and also difficulty with swelling for the past 3-4 days. He started chemotherapy and radiation at the beginning of this month for rectal cancer. He has had decreased appetite with reduced p.o. intake since starting treatment, he has been eating and drinking very little the past few days. Has also noticed decreased urine output. Denies diarrhea, but states stool is softer than usual. He denies chest pressure, palpitations. No fever, chills, abdominal pain. Here he was afebrile and hypotensive as low as 97/50. Labs were significant for stable H&H of 9.8/29.9, initial sodium 133, potassium 5.3, bicarb is low as 8, BUN 126, creatinine 5.21. No leukocytosis. Troponin 6.7. Hepatic function baseline. UA with proteinuria of 30, negative for UTI. CXR showed no acute intrathoracic disease. CT?of abdomen/pelvis a 1.5 cm contour abnormality in left kidney in the lateral midpole remains concerning for underlying mass, suggest consider MRI imaging, and also found possible filling deficit in the rectosigmoid colon. EKG showed atrial paced rhythm without evidence of ST elevations or depressions and QTc 416. Pt was treated with GI cocktail, IVF, and placed on a sodium bicarb drip. Pt was admitted to the hospital for treatment of ANIL in the setting of recently starting chemo and radiation with likely GI toxicity secondary to chemotherapy. Review of Systems Review of Systems: Epigastric pain radiating to the throat and right-sided chest Nausea, no vomiting Dysphagia, odynophagia Generalized weakness Denies chest pressure, palpitations No fever, chills Denies abdominal pain No diarrhea, but stool softer than normal <SEBASTIAN Edward - Last Filed: 11/09/22 19:11> [facility] Medical History: Medical History: PMH significant for?AFib on Eliquis, sick sinus syndrome with pacemaker in place, HTN, Rectal cancer currently on oral chemotherapy and receiving radiation Aftercare following left shoulder joint replacement surgery Pacemaker OA (osteoarthritis) Borderline hyperlipidemia Obesity HTN (hypertension) EtOH dependence Mild cognitive impairment Inhibited sex excitement Atrial fibrillation Cancer of kidney High cholesterol Hypertension : Family History: Review of Systems - Constitutional Reports no additional constitutional complaints, Reports lack of energy, Reports malaise, Reports weight loss - Eyes Reports no additional eye complaints - ENT Reports no additional ear, nose, mouth, and throat complaints - Cardiovascular Reports no additional cardiovascular complaints - Respiratory Reports no additional respiratory complaints - Gastrointestinal Reports no additional gastrointestinal complaints - Genitourinary Genitourinary: Reports no additional male genitourinary complaints - Musculoskeletal Reports no additional musculoskeletal complaints - Integumentary/Breasts Skin/Breast: Reports no additional skin complaints - Neurologic Reports no additional neurologic complaints - Psychiatric Reports no additional psychiatric complaints - Endocrine Reports no additional endocrine complaints - Hematologic/Lymphatic Reports no additional hematologic/lymphatic complaints - Allergic/Immunologic Reports no additional allergic/immunologic complaints Oncology Screenings - ECOG Performance Status ECOG Performance Status: 1 [facility] Medical History: Medical History (Last Reviewed 11/10/22 @ 09:15 by Page Livingston, PT) Aftercare following left shoulder joint replacement surgery Atrial fibrillation Borderline hyperlipidemia Cancer of kidney EtOH dependence High cholesterol HTN (hypertension) Hypertension Inhibited sex excitement Mild cognitive impairment OA (osteoarthritis) Obesity Pacemaker Functional capacity: uses cane/walker Patient : No Family History: Family History (Last Reviewed 11/09/22 @ 16:10 by SEBASTIAN Edward) Mother Heart problem Social History: Social History (Last Reviewed 11/10/22 @ 03:15 by Keiry Chen RN) Living Situation History: Household Members: Spouse Housing: House Do you presently have visiting nurse or other home services: No Alcohol History Details: Currently Displaying Signs/Symptoms of Alcohol Withdrawal: No Tobacco History: Patient Tobacco Use Status: Former Tobacco user Smoked in Last 30 Days: No Substance Use History: Use of substances other than those prescribed or required for medical reasons: No Currently Displaying Signs/Symptoms of Drug Intoxication Withdrawal: No Domestic Abuse History: Have you been hit, kicked, punched, or otherwise hurt by someone within the past year? 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 Home Medications and Allergies Current Medications: Current Medications Acetaminophen (Acetaminophen 325 Mg Tablet) 650 mg PO Q6H PRN PRN Reason: Pain, Mild (Pain Scale 1-3) Last Admin: 11/10/22 03:42 Dose: 650 mg Apixaban (Apixaban 2.5 Mg Tablet) 2.5 mg PO BID NILE Last Admin: 11/10/22 07:41 Dose: 2.5 mg Calcium Carbonate (Calcium Carbonate 750 Mg Tab.Chew) 750 mg PO Q6H PRN PRN Reason: Heartburn Last Admin: 11/09/22 22:10 Dose: 750 mg Hydromorphone HCl (Hydromorphone Hcl 0.5 Mg/0.5 Ml Syringe) 0.25 mg IVPUSH Q2H PRN; Protocol PRN Reason: severe pain Last Admin: 11/10/22 12:26 Dose: 0.25 mg Sodium Bicarbonate 150 meq/ (Dextrose) 1,000 mls @ 125 mls/hr IV .Q8H NILE Last Infusion: 11/10/22 16:16 Dose: 0 mls/hr Fluconazole 50 mg/ IV (Miscellaneous Supplies) 25 mls @ 25 mls/hr IV Q24H NILE Metoprolol Tartrate (Metoprolol Tartrate 100 Mg Tablet) 100 mg PO BID NILE; Protocol Last Admin: 11/10/22 07:41 Dose: 100 mg Ondansetron HCl (Ondansetron Hcl 4 Mg/2 Ml Vial) 4 mg IVPUSH Q8H PRN PRN Reason: Nausea and Vomiting Pantoprazole Sodium (Pantoprazole Sodium 40 Mg/10 Ml Vial) 40 mg IVPUSH BID@0630,1630 [facility] Last Admin: 11/10/22 16:04 Dose: 40 mg Phenazopyridine HCl (Phenazopyridine Hcl 100 Mg Tablet) 100 mg PO BIDWM [facility] Stop: 11/11/22 08:01 Last Admin: 11/10/22 16:04 Dose: 100 mg Sodium Chloride (0.9 % Sodium Chloride Flush 3 Ml Syringe) 3 ml IVFLUSH QSHIFT [facility] Last Admin: 11/10/22 15:48 Dose: 3 ml Home Medications Medication Instructions Recorded Confirmed Type apixaban 5 mg tablet (Eliquis) 5 mg PO BID 06/27/22 11/09/22 History Allergies Allergy/AdvReac Type Severity Reaction Status Date / Time No Known Allergies [NKA] Allergy Mild NOT Verified 11/04/22 18:18 APPLICABLE Physical Exam Vital signs: Vital Signs Temp 97.2 F 11/10/22 16:11 Pulse 80 11/10/22 16:11 Resp 18 11/10/22 16:11 BP 101/43 L 11/10/22 16:11 Pulse Ox 98 11/10/22 15:24 O2 Del Method Room Air 11/10/22 15:24 Intake & Output 11/09/22 11/10/22 11/10/22 18:59 06:59 18:59 Intake Total 1500 / 5358.334 3858.334 / 5358.334 2371.667 / 2371.667 Output Total 0 / 800 800 / 800 500 / 500 Balance 1500 / 4558.334 3058.334 / 4558.334 1871.667 / 1871.667 Urine Output (Average ml/kg/hr) 0.00 0.49 0.49 Intake: Intake, Oral Amount 480 / 480 480 / 480 Intake (Blood Product) Amount 0 / 0 Red Blood Cells (E0336) Unit 0 / 0 [id number] Intake, IV Amount 1500 / 4878.334 3378.334 / 4878.334 1891.667 / 1891.667 0.9 % Sodium Chloride 2,565 ml 1000 / 3565 2565 / 3565 @ 2565 mls/hr IV .Q1H STA Rx#: [id number] 0.9 % Sodium Chloride 100 ml @ 15 / 15 100 mls/hr IV ONCE ONE Rx#: [id number] 0.9 % Sodium Chloride 500 ml @ 500 / 500 500 mls/hr IV .Q1H NILE Rx#: [id number] Fluconazole in NaCl,Iso-Osm 100 50 / 50 mg In Container,Empty 0 ml @ 50 mls/hr IV NOW STA Rx#: [id number] Sodium Bicarbonate 8.4% 150 meq 763.334 / 763.334 876.667 / 876.667 In Dextrose 5 % 850 ml @ 125 mls/hr IV .Q8H NILE Rx#: [id number] 0.9 % Sodium Chloride 1,000 ml 1000 / 1000 @ 999 mls/hr IVCONT .Q1H1M NILE Rx#:[id number] Output: Output, Urine Amount 0 / 500 500 / 500 500 / 500 Output, Post Void Residual 300 / 300 Amount Other: Breakfast % Eaten 75% Lunch % Eaten 50% Number of Incontinent Voids 0 Number of Bowel Movements [address] [facility] Urine Color Yellow [place] Last Bowel Movement 11/09/22 11/10/22 Stool Bathroom Stool Amount Moderate Stool Color Blood Tinged Stool Consistency Soft Weight 85.5 kg Media Weight in Grams 04119 Weight 85.5 kg - Constitutional Present: moderate distress - Routine HEENT Exam Head: Present: normal inspection Eye: Present: normal appearance ENT: Present: mucous membranes moist - Routine Neck Exam Present: supple - Routine Respiratory Exam Present: CTAB - Routine Cardiovascular Exam Cardiovascular: Present: RRR, S1, S2 - Routine Abdominal Exam Present: nontender - Routine Skin Exam Present: intact, normal turgor - Routine Neurological Exam Present: alert - Detailed Neurological Exam: Coma Scale Eye Opening: Spontaneous (4) Verbal Response: Oriented (5) Motor Response: Obeys commands (6) Mateus Coma Scale Total: 15 - Routine Psychiatric Exam Present: depressed Hem/Onc Consult Result - Labs CBC & Chem 7: 11/10/22 10:31 11/10/22 10:32 Labs: Short CBC 11/10/22 Range/Units 10:31 WBC 5.3 (4.8-10.8) X10*3/uL Hgb 6.6 L* D (14.0-18.0) g/dl Hct 20.5 L* D (42.0-52.0) % Plt Count 105 L D (160-400) X10*3/uL BMP 11/09/22 11/10/22 21:07 10:32 Sodium 138 142 Potassium 4.0 4.3 Chloride 113 H 118 H Carbon Dioxide 10 L* D 12 L BUN 125 H 119 H Creatinine 3.95 H 3.14 H Calcium 7.4 L 7.3 L Urine 11/09/22 Range/Units 22:50 Urine Color Yellow Urine Appearance Clear Urine pH 5.5 (5.0-9.0) Ur Specific [place] 1.015 (1.005-1.025) Urine Protein 100 (2+) H (Neg-Trace) mg/dL Urine Glucose (UA) Negative (Negative) mg/dL Assessment and Plan Patient Active problem list reviewed?: Yes (1) Rectal carcinoma Status: Acute Assessment and plan: This is a 76-year-old gentleman, who had presented after syncopal episode, back on June 19. He was noted to be anemic. He received a unit of blood. Colonoscopy from 06/21 revealed: A rectal mass at 8 - 10 cm from anal verge, with irregular hard edges and measured about 6-8 cm. Biopsies revealed: Superficial fragments of intramucosal adenocarcinoma at least, with foci suspicious of submucosal invasion. Immunostains pending. MLH1: Preserved. MSH2: Preserved. MSH6: Focally preserved. PMS to: Preserved. Results negative for mismatch repair defect/Costello syndrome related tumor. CT scan of the abdomen pelvis from 07/06 revealed: Focal dilatation of proximal pancreatic duct likely confluence of dorsal and ventral pancreatic duct which have direct entry into the duodenum. A intraductal cystic neoplasm such as IPMN cannot be excluded. Recommend MRI pancreas with and without contrast. The CBD opens separately into the duodenum. The distal and mid pancreatic duct is normal. The pancreas itself is normal. The CBD is normal caliber. No pancreatic lesions seen. Two complex partially exophytic cysts in the midpole left kidney with no hydronephrosis. Initial CEA: 35.50. CA 19-9: <3. l proceeded with further staging workup. He had an MRI of the pelvis at [facility]. It revealed: A 4 cm intraluminal mass in the middle and upper rectum about 7.5 cm from the anal verge with no extension into mesorectal facie or surrounding organs. No significant perirectal or pelvic adenopathy. CEA August 24:56. CEA 09/29:100. I proceeded with a PET scan, to look for the extent of the disease. Intensely hypermetabolic lobulated rectal mass, consistent with known malignancy. No FDG avid local or distant metastatic disease. Mild heterogenous FDG uptake in the prostate gland is of nonspecific correlation with serum PSA levels recommended. He was deemed a candidate for upfront combined modality therapy with radiation along with chemotherapy, with Xeloda. He started radiation and Xeloda on 10/12. He had labs drawn at [facility] on Sunday. Hemoglobin of 6.9. He was given 2 units of packed RBCs. He had labs checked 10/26: WBC 9, Hemoglobin 7.8, HCT. 25.4, PLt 205. He has now been admitted to the hospital with GI upset, nausea and heartburn. His kidney function has worsened. Likely dehydrated. Reduced oral intake. He has been noted to be significantly anemic. Hemoglobin today is down to 6.6. His dyspepsia is likely related to the chemotherapy: Xeloda. In addition, he has been diagnosed with oral and esophageal candidiasis. PLAN: The Xeloda is on hold. He is being treated with IV proton pump inhibitor. He is on IV fluconazole for the Cristal esophagitis. He will receive 2 units of blood. Will continue supportive care including IV hydration. The radiation will be resumed once he gets out of the hospital. Thank you, Cc: - Time Spent With Patient Time Spent with Patient (in minutes): 30
[2022-11-10 19:36] LABS: INTERNATIONAL NORM RATIO 1.8 (0.9-1.1); Prothrombin Time 22.1 SEC (11.1-13.3)
[2022-11-10 22:41] LABS: Hematocrit 26.6 % (42.0-52.0); Hemoglobin 8.8 g/dl (14.0-18.0)
[2022-11-10 22:54] LABS: Anion Gap 15 (12-20); Blood Urea Nitrogen 103 mg/dL (9-16); Calcium 7.2 mg/dL (8.4-10.2); Carbon Dioxide 14 mmol/L (22-29); Chloride 119 mmol/L (96-108); Creatinine Clr Calc Pharmacy 29.1; Estimated Glomerular Filt Rate 27; Glucose Random 120 mg/dL (60-115); Potassium 3.6 mmol/L (3.3-5.1); Sodium 144 mmol/L (135-145)
[2022-11-11] VITALS (10 sets, daily range): BP systolic 93–152; BP diastolic 46–68; PULSE 60–73; RESP 15–22; TEMP 36.2–36.8; O2SAT 94–99
[2022-11-11] MEDS: HYDROmorphone HCl 0.5 MG/0.5 ML SYRINGE 0.25 MG IVPUSH ×6 (01:50→23:23)
[2022-11-11] MEDS: Sodium Bicarbonate 8.4% 150 MEQ in Dextrose 5 % 850 ML 125 MEQ IV ×2 (03:07→11:01)
[2022-11-11] MEDS: Pantoprazole Sodium 40 MG/10 ML VIAL IVPUSH ×2 (05:52→16:34)
[2022-11-11] MEDS: Metoprolol Tartrate 100 MG TABLET PO ×2 (09:12→20:39)
[2022-11-11] MEDS: Phenazopyridine HCL 100 MG TABLET PO (09:13)
[2022-11-11] MEDS: 0.9 % Sodium Chloride Flush 3 ML SYRINGE IVFLUSH ×2 (09:16→20:42)
--- NOTE | 2022-11-11 09:21 | P.PNIM_ITS ---
Subjective Subjective Date of Service: 11/11/22 Interval History: This history was taken in Green[place]ic from the patient. No further BRBPR Ongoing dysphagia + epigastric burning Review of Systems Review of Systems: Yes all other systems are reviewed and are negative Physical Exam 2 Vital Signs: Vital Signs: Last Vital Signs Temp 98.3 F 11/11/22 08:00 Pulse 67 11/11/22 08:00 Resp 18 11/11/22 08:00 BP 152/68 H 11/11/22 08:00 Pulse Ox 98 11/11/22 08:00 O2 Del Method Room Air 11/11/22 08:00 BMI result Body Mass Index 27.8 Gen: in no acute distress HEENT: sclera anicteric, thrush on tongue Neck: supple Lungs: clear to auscultation bilaterally Heart: regular rate and rhythm, no murmurs Abd: soft, non-tender, non-distended Ext: no edema Skin: warm/well-perfused Neuro: alert and oriented x3, no focal findings Psych: appropriate affect Objective Data Active Medications Acetaminophen (Acetaminophen 325 Mg Tablet) 650 mg PO Q6H PRN PRN Reason: Pain, Mild (Pain Scale 1-3) Last Admin: 11/10/22 03:42 Dose: 650 mg Documented By: ANDREW Apixaban (Apixaban 2.5 Mg Tablet) 2.5 mg PO BID [facility] Last Admin: 11/10/22 07:41 Dose: 2.5 mg Documented By: SHANNAN Calcium Carbonate (Calcium Carbonate 750 Mg Tab.Chew) 750 mg PO Q6H PRN PRN Reason: Heartburn Last Admin: 11/09/22 22:10 Dose: 750 mg Documented By: ANDREW Hydromorphone HCl (Hydromorphone Hcl 0.5 Mg/0.5 Ml Syringe) 0.25 mg IVPUSH Q2H PRN; Protocol PRN Reason: severe pain Last Admin: 11/11/22 01:50 Dose: 0.25 mg Documented By: OSCAR Sodium Bicarbonate 150 meq/ (Dextrose) 1,000 mls @ 125 mls/hr IV .Q8H [facility] Last Admin: 11/11/22 03:07 Dose: 125 mls/hr Documented By: OSCAR Fluconazole 50 mg/ IV (Miscellaneous Supplies) 25 mls @ 25 mls/hr IV Q24H [facility] Last Admin: 11/10/22 18:15 Dose: Not Given Documented By: JAEL Non-Admin Reason: No Access Metoprolol Tartrate (Metoprolol Tartrate 100 Mg Tablet) 100 mg PO BID [facility]; Protocol Last Admin: 11/11/22 09:12 Dose: 100 mg Documented By: SHARMAINE Ondansetron HCl (Ondansetron Hcl 4 Mg/2 Ml Vial) 4 mg IVPUSH Q8H PRN PRN Reason: Nausea and Vomiting Pantoprazole Sodium (Pantoprazole Sodium 40 Mg/10 Ml Vial) 40 mg IVPUSH BID@0630,1630 [facility] Last Admin: 11/11/22 05:52 Dose: 40 mg Documented By: OSCAR Sodium Chloride (0.9 % Sodium Chloride Flush 3 Ml Syringe) 3 ml IVFLUSH QSHIFT [facility] Last Admin: 11/11/22 09:16 Dose: 3 ml Documented By: SHARMAINE Labs 11/10/22 22:34 11/10/22 22:34 Labs: Laboratory Results - last 24 hr 11/09/22 11/10/22 11/10/22 13:55 10:31 10:32 MCV 88.4 MCH 28.4 MCHC 32.2 RDW 25.9 H Plt Count 105 L D MPV 9.9 Absolute Nucleated RBC 0.000 Nucleated RBC % (auto) 0.0 PT INR Anion Gap 16 Estim Creat Clear Calc 21.6 Estimated GFR 19 Random Glucose 128 H Calcium 7.3 L Stool Occult Blood NEGATIVE Blood Type Antibody Screen Crossmatch 11/10/22 11/10/22 11/10/22 12:46 19:12 22:34 MCV MCH MCHC RDW Plt Count MPV Absolute Nucleated RBC Nucleated RBC % (auto) PT 22.1 H INR 1.8 H Anion Gap 15 Estim Creat Clear Calc 29.1 Estimated GFR 27 Random Glucose 120 H Calcium 7.2 L Stool Occult Blood Blood Type A Positive Antibody Screen NEGATIVE Crossmatch See Detail Microbiology Microbiology Results: Microbiology 11/09/22 21:03 Blood Culture - Preliminary Blood - Venous No growth after 24 hours. 11/09/22 21:04 Blood Culture - Preliminary Blood - Venous No growth after 24 hours. 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; if develops severe bleeding, consider PCC, FFP, and/or ddAVP epigastric pain - likely GI toxicity of Xeloda; continue PPI IV oral/esophageal candidiasis - IV fluconazole, renally dosed, started 11/09/22 rectal CA - recently started chemotherapy + XRT; hold Xeloda; Heme-Onc consulted HTN - hold lisinopril, continue metoprolol paroxysmal AF with RVR - continue metoprolol - hold apiaxban renal mass - outpt surveillance q6mo VTE ppx - SCDs dispo - eventual home In my clinical judgment, the patient requires continued inpatient hospitalization for the following reasons: LGIB, acidemia, IV bicarbonate, lab monitoring Time Spent With Patient Time: Total time managing care of this patient today __40__ minutes. Quality Stroke Does the patient have a stroke diagnosis?: No VTE Prior VTE?: No VTE Risk Level:: Medical - moderate - high VTE Device Contraindication: Treatment Not Indicated VTE Drug Contraindication: N/A - Med Ordered
--- NOTE | 2022-11-11 10:43 | P.PNNP_ITS ---
Subjective Subjective Date of Service: 11/11/22 Interval history: Events noted. All recent data reviewed; Labs from this AM awaited Physical Exam 2 Vital Signs: Vital Signs: Last Vital Signs Temp 98.3 F 11/11/22 08:00 Pulse 67 11/11/22 08:00 Resp 18 11/11/22 08:00 BP 152/68 H 11/11/22 08:00 Pulse Ox 98 11/11/22 08:00 O2 Del Method Room Air 11/11/22 08:00 BMI result Body Mass Index 27.8 Const: General: no acute distress Neck: Neck: Yes supple Resp: Auscultation: diminished lung sounds Cardio: Rate: regular rate GI: Palpation (GI): Soft to palpation Neuro: General: moves all extremities Objective Data Labs 11/10/22 22:34 11/10/22 22:34 Labs: Laboratory Results - last 24 hr 11/09/22 11/10/22 11/10/22 13:55 10:31 10:32 WBC 5.3 RBC 2.32 L D Hgb 6.6 L* D Hct 20.5 L* D MCV 88.4 MCH 28.4 MCHC 32.2 RDW 25.9 H Plt Count 105 L D MPV 9.9 Absolute Nucleated RBC 0.000 Nucleated RBC % (auto) 0.0 PT INR Sodium 142 Potassium 4.3 Chloride 118 H Carbon Dioxide 12 L Anion Gap 16 BUN 119 H Creatinine 3.14 H Estim Creat Clear Calc 21.6 Estimated GFR 19 Random Glucose 128 H Calcium 7.3 L Stool Occult Blood NEGATIVE Blood Type Antibody Screen Crossmatch 11/10/22 11/10/22 11/10/22 12:46 19:12 22:34 WBC RBC Hgb 8.8 L D Hct 26.6 L D MCV MCH MCHC RDW Plt Count MPV Absolute Nucleated RBC Nucleated RBC % (auto) PT 22.1 H INR 1.8 H Sodium 144 Potassium 3.6 Chloride 119 H Carbon Dioxide 14 L Anion Gap 15 BUN 103 H Creatinine 2.34 H Estim Creat Clear Calc 29.1 Estimated GFR 27 Random Glucose 120 H Calcium 7.2 L Stool Occult Blood Blood Type A Positive Antibody Screen NEGATIVE Crossmatch See Detail Microbiology Microbiology Results: Microbiology 11/09/22 21:03 Blood - Venous Blood Culture - Preliminary No growth after 24 hours. 11/09/22 21:04 Blood - Venous Blood Culture - Preliminary No growth after 24 hours. Procedures Date of Service Date of Service: 11/11/22 Assessment & Plan Assessment and plan (1) Acute renal failure: Status: Acute Assessment and Plan: ANIL likely due to tubular injury Obstruction ruled out by imaging Urine Na was < 20; Had been acidotic; On NaHCO3 drip- HCO3 was better Blood work from this AM pending DDX- TLS( no evidence)/ direct toxicity by chemotherapeutic agent Serum creatinine had improved with supportive care. Labs AM Progress Note: Quality Stroke Does the patient have a stroke diagnosis?: No
[2022-11-11 11:09] LABS: Hematocrit 26.6 % (42.0-52.0); Hemoglobin 8.8 g/dl (14.0-18.0); Mean Corpuscular HGB Conc 33.1 g/dl (31.0-36.0); Mean Corpuscular Hemoglobin 28.9 pg (27.0-33.0); Mean Corpuscular Volume 87.5 fL (80.0-98.0); Mean Platelet Volume 9.3 fL (9.4-12.4); Red Blood Count 3.04 X10*6/uL (4.60-5.80); Red Cell Distribution Width 24.4 % (11.0-16.0); White Blood Count 6.5 X10*3/uL (4.8-10.8)
[2022-11-11 11:13] LABS: Platelet Count 91 X10*3/uL (160-400)
[2022-11-11 11:31] LABS: Anion Gap 16 (12-20); Blood Urea Nitrogen 76 mg/dL (9-16); Calcium 7.6 mg/dL (8.4-10.2); Carbon Dioxide 23 mmol/L (22-29); Chloride 113 mmol/L (96-108); Estimated Glomerular Filt Rate 35; Glucose Random 98 mg/dL (60-115); Potassium 3.7 mmol/L (3.3-5.1); Sodium 148 mmol/L (135-145)
[2022-11-11] MEDS: Phytonadione (Vit K1) 10 MG in 0.9 % Sodium Chloride 50 ML 51 MG IV (12:00)
--- NOTE | 2022-11-11 16:20 | PM.EVENT ---
Event Note Date of Service: 11/11/22 Event Note: GI Consult-Full note dictated. History from patient, RN, and EMR Imp: Lower GI bleeding with significant anemia in 77 yo male with diagnosis of rectal cancer in 06/2022. He is on chronic Eliquis for Afib. He has been on treatment for the rectal cancer for the past month or so with Xeloda and XRT. He has been noting hematochezia since even before the XRT, and odynophagia for about a week. He has been tolerating po's fairly well. Today he reports only some small amounts of pinkish rectal discharge and no further mejia bleeding. His Hgb has improved after transfusions and he is now off the Eliquis. He denies abdominal pain presently. He reports that his odynophagia has improved somewhat on the Diflucan as well. He presently seem stable and feels better in regard to the previous bleeding and anemia. Diff dx: I suspect his bleeding is in relation to the known rectal tumor, as well as probably some acute XRT-induced proctitis. His concurrent use of Eliquis certainly contributed to the situation as well. Rec: Supportive care. F/U Hgb and PT/INR--he received a dose of 10mg of IV Vit K earlier today. Continue to hold Eliquis for the foreseeable future, especially until at least the XRT has been completed. He can be changed to an oral PPI and oral Diflucan as he is taking po's without a problem at the present time. I do not think he requires any type of endoscopic intervention at this time. Please advise if I can be of further assistance. D/W patient and his . They are comfortable with this plan. Thanks. Time Spent With Patient Time: Total time managing care of this patient today ____ minutes.
[2022-11-11] MEDS: 0.9 % Sodium Chloride 1,000 ML 75 ML IVCONT (16:34)
[2022-11-11] MEDS: Acetaminophen 325 MG TABLET 650 MG PO (20:40)
[2022-11-11] MEDS: Calcium Carbonate 750 MG TAB.CHEW PO (20:47)
[2022-11-11] MEDS: traZODone HCL 50 MG TABLET PO (23:43)
[2022-11-12] VITALS (8 sets, daily range): BP systolic 115–156; BP diastolic 58–70; PULSE 57–75; RESP 17–20; TEMP 36.1–37.5; O2SAT 92–99
[2022-11-12] MEDS: HYDROmorphone HCl 0.5 MG/0.5 ML SYRINGE 0.25 MG IVPUSH ×3 (03:14→11:52)
[2022-11-12] MEDS: 0.9 % Sodium Chloride 1,000 ML 75 ML IVCONT ×2 (03:15→16:46)
--- NOTE | 2022-11-12 03:24 | CONS_ITS ---
DATE OF SERVICE: 11/11/2022 REASON FOR CONSULTATION: Rectal bleeding and history of rectal cancer. HISTORY OF PRESENT ILLNESS: This has been obtained from the patient, his nurse, and the medical record. The patient is a 77-year-old male diagnosed with rectal cancer in June. At that time, he underwent colonoscopy with Dr. Lara and biopsies showed adenocarcinoma. He is on chronic Eliquis and describes intermittent hematochezia. Just about a month ago, he started radiation treatments and Xeloda under the care of Dr. Gaxiola. He does describe some increasing episodes of hematochezia for which he came to the ER and was found to be anemic. He also was noted to be in acute renal failure. He has been admitted to the hospital and received 2 units of blood with a good response in regard to an increase in hemoglobin. His Eliquis has been on hold and today he has had only some pink rectal discharge. He has no longer had any further bright red blood or blood clots per rectum. The patient has been having some pain in the perirectal area. During this time, he has also had some increasing odynophagia. He did receive 2 units of blood since admission and has also been on IV Diflucan. He does report that he is feeling better in regard to the anemia, and the odynophagia has also improved somewhat. He has had some vomiting at home, but without hematemesis nor coffee-grounds emesis. He has not had any vomiting here in the hospital and has been tolerating his diet fairly well. He denies any abdominal pain. Aside from his Eliquis, he is not taking any other blood thinners and denies any use of aspirin or NSAIDs. MEDICATIONS: At home included Eliquis, Xeloda, lisinopril, metoprolol, and Zofran. His medications here in the hospital include IV Diflucan, IV pantoprazole, Zofran p.r.n., metoprolol, Dilaudid p.r.n., Tums p.r.n., acetaminophen p.r.n. PAST MEDICAL HISTORY: Diagnosis of rectal cancer in June. He is under the care of Dr. Gaxiola for that and started radiation treatment and Xeloda early this month. He has underlying atrial fibrillation. He is status post a pacemaker. He denies any history of SD, diabetes, stroke, nor lung disease. He has had shoulder surgery. SOCIAL HISTORY: He is . He is a former smoker and previous heavy drinker. He has been abstinent for many years. FAMILY HISTORY: Noncontributory. REVIEW OF SYSTEMS: CONSTITUTIONAL: He has been feeling weak at home with some nausea. CARDIAC: No chest pain. PULMONARY: No cough. No hemoptysis. GI: As above. URINARY: No dysuria, no hematuria. NEUROLOGIC: No headache or seizures. PHYSICAL EXAMINATION: GENERAL: The patient is a pleasant, alert male, sitting up in bed, in no distress. He does have some rectal pain at the present time. SKIN: Warm and dry. HEENT: Anicteric sclerae. NECK: Supple. CHEST: Clear. CARDIAC: Normal S1, S2. ABDOMEN: Soft, nondistended, nontender. LABORATORY DATA: His hemoglobin on admission was 6.6. He did receive 2 units of blood and hemoglobin last evening was 8.8 and this morning was 8.8 as well. MCV 88. Platelets 91,000. White blood cell count 6.5. His PT was 22.1 with an INR of 1.8 last evening. Normal electrolytes. BUN today is 76 with a creatinine 1.9. His BUN on November 09 was 123 with a creatinine of 4.6. He had normal LFTs on November 09. His CT scan described a probable mass in the rectosigmoid area as well as a 1.5 cm possible mass in the left kidney. This was also seen on a CT scan in June as well as an ultrasound back in April. He is followed by Dr. Horton from Urology for that. 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 There is certainly a contributing factor from his chronic use of Eliquis as well. At the present time, he seems to be hemodynamically stable and without any sign of significant active bleeding. He seems improved after the transfusions and the holding of his Eliquis. At this point, I do not think any endoscopic intervention is required given his stable clinical appearance. I would simply continue supportive care, continue to hold the Eliquis for the foreseeable future, particularly until at least the radiation treatments have been completed. I did order a dose of vitamin K earlier today for him. I think he can be treated with oral Diflucan and oral PPI at this time as well. If he shows signs of worsening bleeding, then we could consider other options such as FFP if the PT/INR remains abnormal, platelet transfusion in regard to the relative thrombocytopenia and possible platelet dysfunction from his renal failure, and/or possible use of the reversal agent for his Eliquis. However, at this point, things seem quite stable and I do not think any of that is necessary. I don't think he requires any endoscopic intervention at this time. This has all been discussed with the patient and his in detail. They are comfortable with the plan. Thanks for the consultation. MD LYNN Moreau/JONO / [id number] MTDD
[2022-11-12] MEDS: Metoprolol Tartrate 100 MG TABLET PO ×2 (08:28→20:42)
[2022-11-12] MEDS: 0.9 % Sodium Chloride Flush 3 ML SYRINGE IVFLUSH ×4 (08:28→20:42)
[2022-11-12] MEDS: Acetaminophen 325 MG TABLET 650 MG PO ×2 (08:28→16:18)
[2022-11-12] MEDS: Omeprazole 20 MG CAPSULE.DR PO (08:29)
--- NOTE | 2022-11-12 11:20 | HO.PM.IMPN ---
Subjective Subjective Date of Service: 11/12/22 Interval History: This history was taken in Danish from the patient. feeling better no further rectal bleeding c/o dysphagia epigastric burning resolved Review of Systems Review of Systems: Yes all other systems are reviewed and are negative Physical Exam Vital Signs: Vital Signs: Last Vital Signs Temp 97.7 F 11/12/22 08:00 Pulse 73 11/12/22 08:00 Resp 18 11/12/22 08:27 BP 143/65 H 11/12/22 08:00 Pulse Ox 99 11/12/22 08:00 O2 Del Method Room Air 11/12/22 08:00 BMI result Body Mass Index 27.8 Gen: in no acute distress HEENT: sclera anicteric, thrush on tongue Neck: supple Lungs: clear to auscultation bilaterally Heart: regular rate and rhythm, no murmurs Abd: soft, non-tender, non-distended Ext: no edema Skin: warm/well-perfused Neuro: alert and oriented x3, no focal findings Psych: appropriate affect Objective Data Active Medications Acetaminophen (Acetaminophen 325 Mg Tablet) 650 mg PO Q6H PRN PRN Reason: Pain, Mild (Pain Scale 1-3) Last Admin: 11/12/22 08:28 Dose: 650 mg Documented By: LICHA Apixaban (Apixaban 2.5 Mg Tablet) 2.5 mg PO BID [facility] Last Admin: 11/10/22 07:41 Dose: 2.5 mg Documented By: SHANNAN Calcium Carbonate (Calcium Carbonate 750 Mg Tab.Chew) 750 mg PO Q6H PRN PRN Reason: Heartburn Last Admin: 11/11/22 20:47 Dose: 750 mg Documented By: MITZI Fluconazole (Fluconazole 50 Mg Tablet) 50 mg PO DAILY [facility] Last Admin: 11/12/22 08:29 Dose: 50 mg Documented By: LICHA Hydromorphone HCl (Hydromorphone Hcl 0.5 Mg/0.5 Ml Syringe) 0.25 mg IVPUSH Q2H PRN; Protocol PRN Reason: severe pain Last Admin: 11/12/22 08:27 Dose: 0.25 mg Documented By: LICHA Sodium Chloride (Ns) 1,000 mls @ 75 mls/hr IVCONT .[id number] [facility] Last Admin: 11/12/22 03:15 Dose: 75 mls/hr Documented By: YURI Metoprolol Tartrate (Metoprolol Tartrate 100 Mg Tablet) 100 mg PO BID [facility]; Protocol Last Admin: 11/12/22 08:28 Dose: 100 mg Documented By: LICHA Omeprazole (Omeprazole 20 Mg Capsule.) 20 mg PO BID@0630,1630 [facility] Last Admin: 11/12/22 08:29 Dose: 20 mg Documented By: LCIHA Ondansetron HCl (Ondansetron Hcl 4 Mg/2 Ml Vial) 4 mg IVPUSH Q8H PRN PRN Reason: Nausea and Vomiting Sodium Chloride (0.9 % Sodium Chloride Flush 3 Ml Syringe) 3 ml IVFLUSH QSHIFT [facility] Last Admin: 11/12/22 08:28 Dose: 3 ml Documented By: LICHA Labs 11/11/22 10:50 11/11/22 10:50 Labs: Laboratory Results - last 24 hr 11/11/22 10:50 Anion Gap 16 Estim Creat Clear Calc 36.0 Estimated GFR 35 Random Glucose 98 Calcium 7.6 L Magnesium 2.0 Microbiology Microbiology Results: Microbiology 11/09/22 21:03 Blood Culture - Preliminary Blood - Venous No growth after 48 hours. 11/09/22 21:04 Blood Culture - Preliminary Blood - Venous No growth after 48 hours. 11/09/22 Unknown Urine Culture - Final Urine Catheterized - Mckeon Catheter No growth. Assessment and Plan (1) Acute renal failure: Status: Acute Plan d4 77yo M with AF on apixaban, SSS s/p PPM, HTN, rectal CA on chemotherapy/XRT presenting with burning epigastric pain with dysphagia, anorexia admitted for ANIL with severe acidemia developed LGIB ANIL metabolic acidosis - prerenal from dehydration/poor PO intake from chemo; changed isotonic bicarbonate to saline on 11/11/22; today's labs pending - continue hold lisinopril + Xeloda normocytic anemia due to LGIB - transfused 2u PRBCs 11/10/22 with appropriate rise in H+H; today's labs pending - held apixaban; got vitamin K 11/11/22 - GI consulted [Dr Levine]; 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; if develops severe bleeding, consider PCC, FFP, and/or ddAVP but seems to have resolved at this point epigastric pain - likely GI toxicity of Xeloda; switched IV to PO PPI oral/esophageal candidiasis - fluconazole 11/09-11/22/22; renally dosed but if CrCl recovers to >50, give usual dose rectal CA - recently started chemotherapy + XRT; hold Xeloda; Heme-Onc consulted and will need outpt f/u HTN - hold lisinopril, continue metoprolol paroxysmal AF with RVR - continue metoprolol - hold apixaban renal mass - outpt surveillance q6mo VTE ppx - SCDs dispo - eventual home, possibly tomorrow In my clinical judgment, the patient requires continued inpatient hospitalization for the following reasons: LGIB, acidemia, ANIL, rectal bleeding, lab monitoring Time Spent With Patient Time: Total time managing care of this patient today __35__ minutes. Quality Stroke Does the patient have a stroke diagnosis?: No VTE Prior VTE?: No VTE Risk Level:: Medical - moderate - high VTE Device Contraindication: Treatment Not Indicated VTE Drug Contraindication: N/A - Med Ordered
[2022-11-12 12:04] LABS: Hematocrit 25.3 % (42.0-52.0); Hemoglobin 8.2 g/dl (14.0-18.0); Mean Corpuscular HGB Conc 32.4 g/dl (31.0-36.0); Mean Corpuscular Hemoglobin 28.9 pg (27.0-33.0); Mean Corpuscular Volume 89.1 fL (80.0-98.0); Mean Platelet Volume 9.6 fL (9.4-12.4); Red Blood Count 2.84 X10*6/uL (4.60-5.80); Red Cell Distribution Width 24.3 % (11.0-16.0); White Blood Count 5.5 X10*3/uL (4.8-10.8)
[2022-11-12 12:06] LABS: Platelet Count 80 X10*3/uL (160-400)
[2022-11-12 12:25] LABS: Anion Gap 13 (12-20); Blood Urea Nitrogen 46 mg/dL (9-16); Calcium 7.6 mg/dL (8.4-10.2); Carbon Dioxide 22 mmol/L (22-29); Chloride 114 mmol/L (96-108); Creatinine Clr Calc Pharmacy 44.8; Estimated Glomerular Filt Rate 45; Glucose Random 131 mg/dL (60-115); Sodium 145 mmol/L (135-145)
--- NOTE | 2022-11-12 12:43 | P.PNNP_ITS ---
Subjective Subjective Date of Service: 11/12/22 Interval history: Events noted; All recent data reviewed Physical Exam 2 Vital Signs: Vital Signs: Last Vital Signs Temp 97.6 F 11/12/22 12:00 Pulse 60 11/12/22 12:00 Resp 18 11/12/22 12:00 BP 143/64 H 11/12/22 12:00 Pulse Ox 99 11/12/22 12:00 O2 Del Method Room Air 11/12/22 12:00 BMI result Body Mass Index 27.8 Const: General: no acute distress Eyes: EOM: EOMs intact bilaterally Resp: Auscultation: diminished lung sounds Cardio: Rate: regular rate GI: Palpation (GI): Soft to palpation Neuro: General: moves all extremities Objective Data Labs 11/12/22 11:34 11/12/22 11:34 Labs: Laboratory Results - last 24 hr 11/12/22 11:34 WBC 5.5 RBC 2.84 L Hgb 8.2 L Hct 25.3 L MCV 89.1 MCH 28.9 MCHC 32.4 RDW 24.3 H Plt Count 80 L MPV 9.6 Absolute Nucleated RBC 0.000 Nucleated RBC % (auto) 0.0 Sodium 145 Potassium 4.0 Chloride 114 H Carbon Dioxide 22 Anion Gap 13 BUN 46 H Creatinine 1.52 H Estim Creat Clear Calc 44.8 Estimated GFR 45 Random Glucose 131 H Calcium 7.6 L Microbiology Microbiology Results: Microbiology 11/09/22 21:03 Blood - Venous Blood Culture - Preliminary No growth after 48 hours. 11/09/22 21:04 Blood - Venous Blood Culture - Preliminary No growth after 48 hours. 11/09/22 Unknown Urine Catheterized - Mckeon Catheter Urine Culture - Final No growth. Procedures Date of Service Date of Service: 11/12/22 Assessment & Plan Assessment and plan (1) Acute renal failure: Status: Acute Assessment and Plan: ANIL likely due to tubular injury- resolving Obstruction ruled out by imaging; NO FURTHER ACEI FOR NOW PLEASE Urine Na was < 20; Had been acidotic- resolved DDX- TLS( no evidence)/ direct toxicity by chemotherapeutic agent- unlikely Serum creatinine had improved with supportive care. Labs AM Progress Note: Quality Stroke Does the patient have a stroke diagnosis?: No
[2022-11-12] MEDS: Loperamide HCl 2 MG CAPSULE PO ×2 (15:12→18:04)
[2022-11-12] MEDS: HYDROmorphone HCl 0.5 MG/0.5 ML SYRINGE IVPUSH ×2 (15:12→18:04)
--- NOTE | 2022-11-12 17:21 | PM.EVENT ---
Event Note Date of Service: 11/12/22 Event Note: GI-Case D/W Dr. Horne regarding ongoing symptoms of diarrhea, rectal pain, and some bleeding. I advised that this seems c/w acute XRT-proctitis. I would recommend holiday from further XRT and Xeloda, hold Eliquis, check stools to R/O infectious component, Loperamide prn for diarrhea, and a topical rectal steroid treatment with a suppository or foam as I don't think he would tolerate an enema. Recheck Hgb/Platelet count and PT/INR in AM. Thanks. Time Spent With Patient Time: Total time managing care of this patient today ____ minutes.
[2022-11-12 17:34] LABS: CDiff Gene PCR NEGATIVE (Negative)
[2022-11-12] MEDS: Hydrocortisone 2.5 % Rectal Cr 30 GM TUBE 1 APPL PR (18:31)
[2022-11-13] MEDS: Hydrocortisone 2.5 % Rectal Cr 30 GM TUBE 1 APPL PR (03:37)
[2022-11-13] MEDS: HYDROmorphone HCl 0.5 MG/0.5 ML SYRINGE IVPUSH ×5 (03:37→20:20)
[2022-11-13] MEDS: Loperamide HCl 2 MG CAPSULE PO ×2 (03:37→20:07)
[2022-11-13 04:00] VITALS: BP 135/87; PULSE 75; RESP 20; TEMP 36.8; O2SAT 96
[2022-11-13] MEDS: Omeprazole 20 MG CAPSULE.DR PO ×2 (06:29→18:19)
[2022-11-13] MEDS: 0.9 % Sodium Chloride 1,000 ML 75 ML IVCONT (06:30)
[2022-11-13 07:28] LABS: INTERNATIONAL NORM RATIO 1.3 (0.9-1.1); Prothrombin Time 15.9 SEC (11.1-13.3)
[2022-11-13 07:29] LABS: Hemoglobin 8.9 g/dl (14.0-18.0); Mean Corpuscular HGB Conc 31.8 g/dl (31.0-36.0); Mean Corpuscular Hemoglobin 28.6 pg (27.0-33.0); Mean Platelet Volume 10.4 fL (9.4-12.4); Red Blood Count 3.11 X10*6/uL (4.60-5.80); Red Cell Distribution Width 24.5 % (11.0-16.0); White Blood Count 5.9 X10*3/uL (4.8-10.8)
[2022-11-13 07:32] LABS: Platelet Count 64 X10*3/uL (160-400)
[2022-11-13 07:38] LABS: Anion Gap 13 (12-20); Blood Urea Nitrogen 29 mg/dL (9-16); Calcium 7.6 mg/dL (8.4-10.2); Carbon Dioxide 21 mmol/L (22-29); Chloride 115 mmol/L (96-108); Creatinine Clr Calc Pharmacy 50.8; Estimated Glomerular Filt Rate 52; Glucose Random 130 mg/dL (60-115); Potassium 3.9 mmol/L (3.3-5.1); Sodium 145 mmol/L (135-145)
[2022-11-13 07:42] VITALS: BP 105/49; PULSE 72; RESP 20; TEMP 37.5; O2SAT 100
--- NOTE | 2022-11-13 10:23 | P.PNNP_ITS ---
Subjective Subjective Date of Service: 11/13/22 Interval history: Events noted; All recent data reviewed Physical Exam 2 Vital Signs: Vital Signs: Last Vital Signs Temp 99.5 F 11/13/22 07:42 Pulse 72 11/13/22 07:42 Resp 20 11/13/22 07:42 BP 105/49 L 11/13/22 07:42 Pulse Ox 100 11/13/22 07:42 O2 Del Method Room Air 11/13/22 07:42 BMI result Body Mass Index 27.8 Const: General: no acute distress Resp: Auscultation: diminished lung sounds GI: Palpation (GI): Soft to palpation Objective Data Labs 11/13/22 07:10 11/13/22 07:10 Labs: Laboratory Results - last 24 hr 11/12/22 11/12/22 11/13/22 11:34 16:09 07:10 WBC 5.5 5.9 RBC 2.84 L 3.11 L Hgb 8.2 L 8.9 L Hct 25.3 L 28.0 L MCV 89.1 90.0 MCH 28.9 28.6 MCHC 32.4 31.8 RDW 24.3 H 24.5 H Plt Count 80 L 64 L MPV 9.6 10.4 Absolute Nucleated RBC 0.000 0.000 Nucleated RBC % (auto) 0.0 0.0 PT 15.9 H D INR 1.3 H Sodium 145 145 Potassium 4.0 3.9 Chloride 114 H 115 H Carbon Dioxide 22 21 L Anion Gap 13 13 BUN 46 H 29 H Creatinine 1.52 H 1.34 Estim Creat Clear Calc 44.8 50.8 Estimated GFR 45 52 Random Glucose 131 H 130 H Calcium 7.6 L 7.6 L C. difficile Tox B Gene NEGATIVE Microbiology Microbiology Results: Microbiology 11/09/22 21:03 Blood - Venous Blood Culture - Preliminary No growth after 48 hours. 11/09/22 21:04 Blood - Venous Blood Culture - Preliminary No growth after 48 hours. 11/09/22 Unknown Urine Catheterized - Mckeon Catheter Urine Culture - Final No growth. Procedures Date of Service Date of Service: 11/13/22 Assessment & Plan Assessment and plan (1) Acute renal failure: Status: Acute Assessment and Plan: ANIL likely due to tubular injury- resolving Urine Na was < 20; Had been acidotic- resolved Obstruction ruled out by imaging; NO FURTHER ACEI FOR NOW PLEASE DDX- TLS( no evidence)/ direct toxicity by chemotherapeutic agent- unlikely Serum creatinine had improved with supportive care. Time Spent With Patient Time: Total time managing care of this patient today ____ minutes. Progress Note: Quality Stroke Does the patient have a stroke diagnosis?: No
--- NOTE | 2022-11-13 10:29 | MHC.CM.PN ---
EMR reviewed and per MD rounds, pt is not medically cleared for D/C today due to pending GI/Neuro consults. CM will continue to follow.
[2022-11-13 10:44] LABS: Adenovirus F 40/41 Not Detected (Not Detect.); Astrovirus Not Detected (Not Detect.); Campylobacter Not Detected (Not Detect.); Cryptosporidium Not Detected (Not Detect.); Cyclospora cayetanensis Not Detected (Not Detect.); E. coli EAEC Not Detected (Not Detect.); E. coli EPEC Not Detected (Not Detect.); E. coli ETEC Not Detected (Not Detect.); E. coli STEC Not Detected (Not Detect.); Entamoeba histolytica Not Detected (Not Detect.); Giardia lamblia Not Detected (Not Detect.); Norovirus GI/GII Not Detected (Not Detect.); Plesiomonas shigelloides Not Detected (Not Detect.); Rotavirus A Not Detected (Not Detect.); Salmonella Not Detected (Not Detect.); Sapovirus Not Detected (Not Detect.); Shigella sp./EIEC Not Detected (Not Detect.); Vibrio Not Detected (Not Detect.); Vibrio Cholerae Not Detected (Not Detect.); Yersinia enterocolitica Not Detected (Not Detect.)
[2022-11-13] MEDS: Metoprolol Tartrate 100 MG TABLET PO ×2 (11:19→20:07)
[2022-11-13] MEDS: 0.9 % Sodium Chloride Flush 3 ML SYRINGE IVFLUSH ×2 (11:19→20:08)
[2022-11-13 12:00] VITALS: BP 161/63; PULSE 77; RESP 20; TEMP 37; O2SAT 99
--- NOTE | 2022-11-13 12:34 | P.PNIM_ITS ---
Subjective Subjective Date of Service: 11/13/22 Interval History: Offers no acute complaints denies abdominal pain, denies rectal bleed, rectal pain resolved, no fevers, no chills, no lightheadedness or dizziness, tolerating diet, denies oral pain, no acute events overnight. Review of Systems All other system reviewed and negative Physical Exam 2 Vital Signs: Vital Signs: Last Vital Signs Temp 99.5 F 11/13/22 07:42 Pulse 72 11/13/22 07:42 Resp 20 11/13/22 07:42 BP 105/49 L 11/13/22 07:42 Pulse Ox 100 11/13/22 07:42 O2 Del Method Room Air 11/13/22 07:42 BMI result Body Mass Index 27.8 Const: Other: Gen: in no acute distress HEENT: sclera anicteric, thrush on tongue Neck: supple Lungs: clear to auscultation bilaterally Heart: regular rate and rhythm, no murmurs Abd: soft, non-tender, non-distended Ext: no edema Skin: warm/well-perfused Neuro: alert and oriented x3, no focal findings Psych: appropriate affect Objective Data Active Medications Acetaminophen (Acetaminophen 325 Mg Tablet) 650 mg PO Q6H PRN PRN Reason: Pain, Mild (Pain Scale 1-3) Last Admin: 11/12/22 16:18 Dose: 650 mg Documented By: LICHA Apixaban (Apixaban 2.5 Mg Tablet) 2.5 mg PO BID [facility] Last Admin: 11/10/22 07:41 Dose: 2.5 mg Documented By: SHANNAN Calcium Carbonate (Calcium Carbonate 750 Mg Tab.Chew) 750 mg PO Q6H PRN PRN Reason: Heartburn Last Admin: 11/11/22 20:47 Dose: 750 mg Documented By: MITZI Fluconazole (Fluconazole 100 Mg Tablet) 100 mg PO DAILY [facility] Hydrocortisone (Hydrocortisone 2.5 % Rectal Cr 30 Gm Tube) 1 appl [place] DAILY COUNT [facility]CLUDES [facility] Last Admin: 11/13/22 03:37 Dose: 1 appl Documented By: ARASH Hydromorphone HCl (Hydromorphone Hcl 0.5 Mg/0.5 Ml Syringe) 0.5 mg IVPUSH Q2H PRN; Protocol PRN Reason: severe pain Last Admin: 11/13/22 11:24 Dose: 0.5 mg Documented By: DES Loperamide HCl (Loperamide Hcl 2 Mg Capsule) 2 mg PO Q4H PRN PRN Reason: Diarrhea Last Admin: 11/13/22 03:37 Dose: 2 mg Documented By: ARASH Metoprolol Tartrate (Metoprolol Tartrate 100 Mg Tablet) 100 mg PO BID [facility]; Protocol Last Admin: 11/13/22 11:19 Dose: 100 mg Documented By: DES Omeprazole (Omeprazole 20 Mg Capsule.Dr) 20 mg PO BID@0630,1630 [facility] Last Admin: 11/13/22 06:29 Dose: 20 mg Documented By: ARASH Ondansetron HCl (Ondansetron Hcl 4 Mg/2 Ml Vial) 4 mg IVPUSH Q8H PRN PRN Reason: Nausea and Vomiting Sodium Chloride (0.9 % Sodium Chloride Flush 3 Ml Syringe) 3 ml IVFLUSH QSHIFT COUNT [facility]CLUDES [facility] Last Admin: 11/13/22 11:19 Dose: 3 ml Documented By: DES Labs 11/13/22 07:10 11/13/22 07:10 Labs: Laboratory Results - last 24 hr 11/12/22 11/13/22 16:09 07:10 MCV 90.0 MCH 28.6 MCHC 31.8 RDW 24.5 H Plt Count 64 L MPV 10.4 Absolute Nucleated RBC 0.000 Nucleated RBC % (auto) 0.0 PT 15.9 H D INR 1.3 H Anion Gap 13 Estim Creat Clear Calc 50.8 Estimated GFR 52 Random Glucose 130 H Calcium 7.6 L Stl C. cayetanensis PCR Not Detected Stool Rotavirus A PCR Not Detected Stl Adenov F 40/41 PCR Not Detected Stool Astrovirus (PCR) Not Detected Stool Campylobacter PCR Not Detected Stool Cryptosporidium PCR Not Detected Stl Sh Tox Pr E STEC PCR Not Detected Stool E coli O157 PCR Not applicable Stl Enterotoxigenic E PCR Not Detected Stool EPEC (PCR) Not Detected Stool EAEC (PCR) Not Detected Stl E. histolytica PCR Not Detected Stool Giardia Lamblia PCR Not Detected Stl P. shigelloides PCR Not Detected Stool Salmonella PCR Not Detected Stool Sapovirus (PCR) Not Detected Stl Shigella/EIEC PCR Not Detected St Y.enterocolitica PCR Not Detected Stool Vibrio (PCR) Not Detected Stl Vibrio cholerae PCR Not Detected Stl Norovirus GI/GII PCR Not Detected C. difficile Tox B Gene NEGATIVE Assessment and Plan (1) Acute renal failure: Status: Acute Plan 77yo M with AF on apixaban, SSS s/p PPM, HTN, rectal CA on chemotherapy/XRT presenting with burning epigastric pain with dysphagia, anorexia, admitted for ANIL with severe acidemia, developed LGIB ANIL metabolic acidosis - prerenal from dehydration/poor PO intake from chemo; , renal ultrasound showed no obstruction, renal function normalized, DC IV fluids , will continue hold lisinopril + Xeloda, being followed by Nephrology normocytic anemia due to LGIB - transfused 2u PRBCs 11/10/22 with appropriate rise in H+H; repeat hematocrit stable today at 28 - held apixaban; got vitamin K 11/11/22 - GI consulted [Dr Levine]; 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; had recurrent episode of small amount of lower GI bleed yesterday status post recent colonoscopy that showed diverticulosis and internal hemorrhoids , started on hemorrhoidal cream continue to hold Eliquis, INR improved to 1.3 epigastric pain - likely GI toxicity of Xeloda; switched IV to PO PPI oral/esophageal candidiasis - fluconazole 11/09-11/22/22; creatinine clearance improved increase dose of Diflucan 200 mg daily rectal CA - recently started chemotherapy + XRT; hold Xeloda and radiation; Heme-Onc consulted and will need outpt f/u HTN stable BP - hold lisinopril, continue metoprolol paroxysmal AF with RVR - continue metoprolol, - hold apixaban renal mass - outpt surveillance q6mo VTE ppx - SCDs dispo - eventual home In my clinical judgment, the patient requires continued inpatient hospitalization for the following reasons: LGIB, acidemia, ANIL, rectal bleeding, lab monitoring Time Spent With Patient Time: Total time managing care of this patient today ____ minutes. Quality Stroke Does the patient have a stroke diagnosis?: No VTE Prior VTE?: No VTE Risk Level:: Medical - moderate - high VTE Device Contraindication: Treatment Not Indicated VTE Drug Contraindication: N/A - Med Ordered
[2022-11-13 15:13] VITALS: BP 161/64; PULSE 93; RESP 20; TEMP 36.7; O2SAT 100
[2022-11-13 19:06] VITALS: BP 159/62; PULSE 81; RESP 20; TEMP 36.7; O2SAT 98
--- NOTE | 2022-11-13 22:17 | P.PNGI_ITS ---
Subjective Subjective Date of Service: 11/13/22 Interval History: doing better minimal abdo and pekvic/rectal d/c passing gss and stools blood redcued as marco antonio Critical Care Time (minutes): 0 Physical Exam 2 Vital Signs: Vital Signs: Last Vital Signs Temp 98.1 F 11/13/22 19:06 Pulse 81 11/13/22 19:06 Resp 20 11/13/22 19:06 BP 159/62 H 11/13/22 19:06 Pulse Ox 98 11/13/22 19:06 O2 Del Method Room Air 11/13/22 19:06 BMI result Body Mass Index 27.8 EXAM: GENERAL: The patient is well developed and nontoxic. VITAL SIGNS:see workflow HEENT: Nonicteric sclerae, PERRLA, EOMI. Oropharynx clear. Moist mucous membranes. Conjunctivae appear pale. No thyroid mass. CHEST: Chest wall is nontender. HEART: Regular rate and rhythm without murmurs. LUNGS: Clear to auscultation bilaterally. ABDOMEN: Soft, positive bowel sounds, nontender, no organomegaly.no flank tenderness SKIN: No rash, no excessive bruising, petechiae, or purpura. NEUROLOGIC: Cranial nerves II-XII intact without motor/sensory deficit. Objective Data Labs 11/14/22 06:42 11/13/22 07:10 Labs: Laboratory Results - last 24 hr 11/12/22 11/13/22 16:09 07:10 WBC 5.9 RBC 3.11 L Hgb 8.9 L Hct 28.0 L MCV 90.0 MCH 28.6 MCHC 31.8 RDW 24.5 H Plt Count 64 L MPV 10.4 Absolute Nucleated RBC 0.000 Nucleated RBC % (auto) 0.0 PT 15.9 H D INR 1.3 H Sodium 145 Potassium 3.9 Chloride 115 H Carbon Dioxide 21 L Anion Gap 13 BUN 29 H Creatinine 1.34 Estim Creat Clear Calc 50.8 Estimated GFR 52 Random Glucose 130 H Calcium 7.6 L Stl C. cayetanensis PCR Not Detected Stool Rotavirus A PCR Not Detected Stl Adenov F 40/41 PCR Not Detected Stool Astrovirus (PCR) Not Detected Stool Campylobacter PCR Not Detected Stool Cryptosporidium PCR Not Detected Stl Sh Tox Pr E STEC PCR Not Detected Stool E coli O157 PCR Not applicable Stl Enterotoxigenic E PCR Not Detected Stool EPEC (PCR) Not Detected Stool EAEC (PCR) Not Detected Stl E. histolytica PCR Not Detected Stool Giardia Lamblia PCR Not Detected Stl P. shigelloides PCR Not Detected Stool Salmonella PCR Not Detected Stool Sapovirus (PCR) Not Detected Stl Shigella/EIEC PCR Not Detected St Y.enterocolitica PCR Not Detected Stool Vibrio (PCR) Not Detected Stl Vibrio cholerae PCR Not Detected Stl Norovirus GI/GII PCR Not Detected Microbiology Microbiology Results: Microbiology 11/09/22 21:03 Blood - Venous Blood Culture - Preliminary No growth after 48 hours. 11/09/22 21:04 Blood - Venous Blood Culture - Preliminary No growth after 48 hours. 11/09/22 Unknown Urine Catheterized - Mckeon Catheter Urine Culture - Final No growth. Procedures Date of Service Date of Service: 11/14/22 Progress Note: A&P Assessment and plan (1) Rectal carcinoma: Status: Acute (2) GI bleed: Status: Acute Plan 1/ Rectal bleeding, most likely either hemorrhoidal or from tumour breakdown --bit too early for radiation proctitis PLAN:' 1/ cont with steroid supp 2/ avodi straining at stool, can use stool softener 3/ if ongoing sx then sigmoidoscopy Time Spent With Patient Time: Total time managing care of this patient today ____ minutes. Quality Stroke Does the patient have a stroke diagnosis?: No VTE Prior VTE?: No VTE Risk Level:: Medical - moderate - high VTE Device Contraindication: Treatment Not Indicated VTE Drug Contraindication: N/A - Med Ordered
[2022-11-13 23:59] VITALS: BP 139/68; PULSE 71; RESP 18; TEMP 37; O2SAT 99
[2022-11-14 03:23] VITALS: BP 134/66; PULSE 79; RESP 18; TEMP 37.2; O2SAT 98
[2022-11-14] MEDS: HYDROmorphone HCl 0.5 MG/0.5 ML SYRINGE IVPUSH ×4 (03:44→21:12)
[2022-11-14 07:11] LABS: Hematocrit 24.1 % (42.0-52.0); Hemoglobin 7.7 g/dl (14.0-18.0); Mean Corpuscular Hemoglobin 28.8 pg (27.0-33.0); Mean Corpuscular Volume 90.3 fL (80.0-98.0); Mean Platelet Volume 9.6 fL (9.4-12.4); Red Blood Count 2.67 X10*6/uL (4.60-5.80); Red Cell Distribution Width 24.1 % (11.0-16.0); White Blood Count 4.9 X10*3/uL (4.8-10.8)
[2022-11-14 07:19] LABS: Platelet Count 67 X10*3/uL (160-400)
[2022-11-14 07:58] VITALS: BP 148/67; PULSE 65; RESP 20; TEMP 36.5; O2SAT 98
[2022-11-14] MEDS: Fluconazole 100 MG TABLET PO (08:12)
[2022-11-14] MEDS: Omeprazole 20 MG CAPSULE.DR PO ×2 (08:12→16:29)
[2022-11-14] MEDS: 0.9 % Sodium Chloride Flush 3 ML SYRINGE IVFLUSH ×3 (08:12→23:14)
[2022-11-14] MEDS: Metoprolol Tartrate 100 MG TABLET PO ×2 (08:12→21:12)
[2022-11-14] MEDS: Hydrocortisone 2.5 % Rectal Cr 30 GM TUBE 1 APPL PR (08:14)
[2022-11-14 11:39] VITALS: BP 136/63; PULSE 69; RESP 20; TEMP 37; O2SAT 100
[2022-11-14 12:30] LABS: Hematocrit 24.6 % (42.0-52.0); Hemoglobin 8.1 g/dl (14.0-18.0)
--- NOTE | 2022-11-14 13:21 | P.PNIM_ITS ---
Subjective Subjective Date of Service: 11/14/22 Interval History: Feeling hungry has not received breakfast denies GI bleed had a soft bowel movement noted to have blood on toilet paper, denies blood mixed with stool ,denies lightheadedness, no dizziness, denies chest pain, no palpitation, has been ambulating to bathroom tolerating diet no nausea, no vomiting, no hematemesis. History obtained via spanish interpreter/translator. Review of Systems All other system reviewed and negative Physical Exam 2 Vital Signs: Vital Signs: Last Vital Signs Temp 98.6 F 11/14/22 11:39 Pulse 69 11/14/22 11:39 Resp 20 11/14/22 11:39 BP 136/63 11/14/22 11:39 Pulse Ox 100 11/14/22 11:39 O2 Del Method Room Air 11/14/22 11:39 BMI result Body Mass Index 27.8 Const: Other: Gen: Awake alert, in no acute distress HEENT: sclera anicteric, thrush on tongue Neck: supple Lungs: clear to auscultation bilaterally Heart: regular rate and rhythm, no murmurs Abd: soft, non-tender, non-distended Ext: no edema Skin: warm/well-perfused Neuro: alert and oriented x3, no focal findings Psych: appropriate affect Objective Data Active Medications Acetaminophen (Acetaminophen 325 Mg Tablet) 650 mg PO Q6H PRN PRN Reason: Pain, Mild (Pain Scale 1-3) Last Admin: 11/12/22 16:18 Dose: 650 mg Documented By: LICHA Calcium Carbonate (Calcium Carbonate 750 Mg Tab.Chew) 750 mg PO Q6H PRN PRN Reason: Heartburn Last Admin: 11/11/22 20:47 Dose: 750 mg Documented By: MITZI Fluconazole (Fluconazole 100 Mg Tablet) 100 mg PO DAILY [facility] Last Admin: 11/14/22 08:12 Dose: 100 mg Documented By: DES Hydrocortisone (Hydrocortisone 2.5 % Rectal Cr 30 Gm Tube) 1 appl [place] DAILY [facility] Last Admin: 11/14/22 08:14 Dose: 1 appl Documented By: DES Hydromorphone HCl (Hydromorphone Hcl 0.5 Mg/0.5 Ml Syringe) 0.5 mg IVPUSH Q2H PRN; Protocol PRN Reason: severe pain Last Admin: 11/14/22 11:38 Dose: 0.5 mg Documented By: DES Loperamide HCl (Loperamide Hcl 2 Mg Capsule) 2 mg PO Q4H PRN PRN Reason: Diarrhea Last Admin: 11/13/22 20:07 Dose: 2 mg Documented By: ARASH Metoprolol Tartrate (Metoprolol Tartrate 100 Mg Tablet) 100 mg PO BID [facility]; Protocol Last Admin: 11/14/22 08:12 Dose: 100 mg Documented By: DES Omeprazole (Omeprazole 20 Mg Capsule.Dr) 20 mg PO BID@0630,1630 [facility] Last Admin: 11/14/22 08:12 Dose: 20 mg Documented By: DES Ondansetron HCl (Ondansetron Hcl 4 Mg/2 Ml Vial) 4 mg IVPUSH Q8H PRN PRN Reason: Nausea and Vomiting Polyethylene Glycol (Polyethylene Glycol 3350 17 Gm Powd.Pack) 17 gm PO DAILY [facility] Last Admin: 11/14/22 11:19 Dose: Not Given Documented By: DES Non-Admin Reason: Patient Refused Sodium Chloride (0.9 % Sodium Chloride Flush 3 Ml Syringe) 3 ml IVFLUSH [facility] Last Admin: 11/14/22 08:12 Dose: 3 ml Documented By: DES Labs 11/14/22 12:06 11/13/22 07:10 Labs: Laboratory Results - last 24 hr 11/14/22 06:42 MCV 90.3 MCH 28.8 MCHC 32.0 RDW 24.1 H Plt Count 67 L MPV 9.6 Absolute Nucleated RBC 0.000 Nucleated RBC % (auto) 0.0 Hold Green Top See Note Assessment and Plan (1) Acute renal failure: Status: Acute Plan 77yo M with AF on apixaban, SSS s/p PPM, HTN, rectal CA on chemotherapy/XRT presenting with burning epigastric pain with dysphagia, anorexia, admitted for ANIL with severe acidemia, developed LGIB ANIL/metabolic acidosis - prerenal from dehydration/poor PO intake from chemo; , renal ultrasound showed no obstruction, renal function normalized, s/p IV fluids , will continue hold lisinopril + Xeloda, being followed by Nephrology normocytic anemia due to LGIB - transfused 2u PRBCs 11/10/22 with appropriate rise in H+H; repeat hematocrit 24.1 this morning, patient denies active bleeding - held apixaban; got vitamin K 11/11/22 - GI consulted [Dr Levine]; 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 Moreau he recommend sigmoidoscopy, will place on clear liquid diet. Patient asymptomatic will hold transfusion repeat hematocrit this afternoon epigastric pain resolved was likely GI toxicity of Xeloda; cont. PO PPI oral/esophageal candidiasis - fluconazole 11/09-11/22/22; creatinine clearance improved on Diflucan 100 mg daily rectal CA - recently started chemotherapy + XRT; hold Xeloda and radiation; Heme-Onc consulted and will need outpt f/u HTN stable BP - hold lisinopril, continue metoprolol paroxysmal AF with RVR - continue metoprolol, - hold apixaban renal mass - outpt surveillance q6mo VTE ppx - SCDs dispo - eventual home In my clinical judgment, the patient requires continued inpatient hospitalization for the following reasons: LGIB, acidemia, ANIL, rectal bleeding, anemia need sigmoidoscopy Time Spent With Patient Time: Total time managing care of this patient today ____ minutes. Quality Stroke Does the patient have a stroke diagnosis?: No VTE Prior VTE?: No VTE Risk Level:: Medical - moderate - high VTE Device Contraindication: Treatment Not Indicated VTE Drug Contraindication: N/A - Med Ordered
--- NOTE | 2022-11-14 14:05 | P.CDIM_ITS ---
PROVIDER RESPONSE TEXT: To clarify, the appropriate diagnosis supported by the clinical indicators: Acute blood loss anemia due to lower GI bleed QUERY TEXT: PHYSICIAN'S DOCUMENTATION REQUEST Date of Query: 11/14/2022 08:11 AM EDT Patient Name: Mehran Ku Admit Date: 11/09/2022 Dear Ron Weinstein, A review of the medical record indicates additional documentation may be needed. Please review below and update the documentation accordingly. Clinical Indicators: PN: LGIB, transfused 2 units PRBCs with appropriate rise in H + H - diarrhea with mixed blood, rectal pain. 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 H/H - 6.6/20.5 L post transfusion: H/H 8.8/26.8 BP 97/50 L Based on the above, could you clarify which of the following is the most likely type of anemia you ar e evaluating, treating, and/or monitoring? Acute blood loss anemia due to lower GI bleed Other Other (explain)Clinically unable to determine (explain)Thank you, Teresa Arroyo, CCS, CDIS Use of terms such as suspected, likely, concern for, or probable (associated with a specific diagnosi s that is being evaluated, monitored, or treated as if it exists) are acceptable and can be coded in the inpatient se tting, when documented at the time of discharge. Please use your independent medical judgment in providing your response. THIS QUERY IS PART OF THE PERMANENT MEDICAL RECORD
--- NOTE | 2022-11-14 14:05 | P.CDIM_ITS ---
PROVIDER RESPONSE TEXT: To clarify, the appropriate diagnosis supported by the clinical indicators: Hypernatremia QUERY TEXT: PHYSICIAN'S DOCUMENTATION REQUEST Date of Query: 11/14/2022 08:17 AM EDT Patient Name: Mehran Ku Admit Date: 11/09/2022 Dear Ron Weinstein, A review of the medical record indicates additional documentation may be needed. Please review below and update the documentation accordingly. Clinical Indicators: LAB FINDINGS: sodium 148 H Based on the above, is there a diagnosis that correlates with these lab findings: Hypernatremia Labs indicate a diagnosis of (please specify) Other please specify Other (explain)Clinically unable to determine (explain)Thank you, Teresa Arroyo, CCS, CDIS Use of terms such as suspected, likely, concern for, or probable (associated with a specific diagnosi s that is being evaluated, monitored, or treated as if it exists) are acceptable and can be coded in the inpatient se tting, when documented at the time of discharge. Please use your independent medical judgment in providing your response. THIS QUERY IS PART OF THE PERMANENT MEDICAL RECORD
[2022-11-14 14:47] VITALS: BP 135/64; PULSE 63; RESP 20; TEMP 36.8; O2SAT 100
[2022-11-14 19:02] VITALS: BP 161/72; PULSE 93; RESP 20; TEMP 36.7; O2SAT 100
[2022-11-14] MEDS: Loperamide HCl 2 MG CAPSULE PO (21:18)
[2022-11-14 23:54] VITALS: BP 146/67; PULSE 74; RESP 20; TEMP 36.8; O2SAT 99
[2022-11-15] VITALS (14 sets, daily range): BP systolic 117–169; BP diastolic 61–77; PULSE 60–142; RESP 18–22; TEMP 36.2–37.3; O2SAT 96–100; BMI 28.9
[2022-11-15] MEDS: HYDROmorphone HCl 0.5 MG/0.5 ML SYRINGE IVPUSH ×5 (06:20→23:13)
[2022-11-15] MEDS: Omeprazole 20 MG CAPSULE.DR PO ×2 (06:21→17:36)
[2022-11-15 06:22] LABS: Anion Gap 9 (12-20); Blood Urea Nitrogen 17 mg/dL (9-16); Calcium 7.3 mg/dL (8.4-10.2); Carbon Dioxide 25 mmol/L (22-29); Chloride 112 mmol/L (96-108); Creatinine Clr Calc Pharmacy 62.4; Estimated Glomerular Filt Rate > 60; Glucose Random 101 mg/dL (60-115); Potassium 3.6 mmol/L (3.3-5.1); Sodium 142 mmol/L (135-145)
[2022-11-15 06:53] LABS: Hematocrit 21.3 % (42.0-52.0); Mean Corpuscular HGB Conc 32.9 g/dl (31.0-36.0); Mean Corpuscular Volume 88.4 fL (80.0-98.0); Mean Platelet Volume 10.1 fL (9.4-12.4); Red Blood Count 2.41 X10*6/uL (4.60-5.80); Red Cell Distribution Width 23.8 % (11.0-16.0); White Blood Count 3.6 X10*3/uL (4.8-10.8)
[2022-11-15 07:36] LABS: Platelet Count 69 X10*3/uL (160-400)
[2022-11-15] MEDS: Metoprolol Tartrate 100 MG TABLET PO ×2 (10:19→20:14)
[2022-11-15] MEDS: Acetaminophen 325 MG TABLET 650 MG PO ×2 (10:19→16:34)
[2022-11-15] MEDS: Fluconazole 100 MG TABLET PO (10:19)
[2022-11-15] MEDS: 0.9 % Sodium Chloride Flush 3 ML SYRINGE IVFLUSH ×3 (10:21→20:16)
[2022-11-15] MEDS: Hydrocortisone 2.5 % Rectal Cr 30 GM TUBE 1 APPL PR (10:21)
--- NOTE | 2022-11-15 12:03 | MHC.CM.PN ---
EMR REVIEWED. PER MD ROUNDS PT NOT MEDICALLY CLEARED FOR DC AT THIS TIME. TO RECEIVE TRANSFUSION TODAY. CM WILL CONTINUE TO FOLLOW.
--- NOTE | 2022-11-15 13:46 | HO.PM.IMPN ---
Subjective Subjective Date of Service: 11/15/22 Interval History: Resting comfortably offers no acute complaints, no diarrhea having regular bowel movements, notes blood on toilet paper otherwise no blood in commode denies abdominal pain no nausea no vomiting no epigastric pain no other acute issues overnight denies lightheadedness, no dizziness, no fevers, no chills. Review of Systems All other system reviewed and negative. Physical Exam Vital Signs: Vital Signs: Last Vital Signs Temp 98.4 F 11/15/22 11:45 Pulse 62 11/15/22 11:45 Resp 19 11/15/22 11:45 BP 147/61 H 11/15/22 11:45 Pulse Ox 99 11/15/22 11:04 O2 Del Method Room Air 11/15/22 11:04 BMI result Body Mass Index 27.8 Const: Other: Gen: Awake alert, in no acute distress Neck: supple Lungs: clear to auscultation bilaterally Heart: regular rate and rhythm, no murmurs Abd: soft, non-tender, non-distended, bowel sounds audible, no guarding no rigidity Ext: no edema Skin: warm/well-perfused Neuro: alert and oriented x3, no focal findings Psych: appropriate affect Objective Data Active Medications Acetaminophen (Acetaminophen 325 Mg Tablet) 650 mg PO Q6H PRN PRN Reason: Pain, Mild (Pain Scale 1-3) Last Admin: 11/15/22 10:19 Dose: 650 mg Documented By: COLIN Calcium Carbonate (Calcium Carbonate 750 Mg Tab.Chew) 750 mg PO Q6H PRN PRN Reason: Heartburn Last Admin: 11/11/22 20:47 Dose: 750 mg Documented By: MITZI Fluconazole (Fluconazole 100 Mg Tablet) 100 mg PO DAILY [facility] Last Admin: 11/15/22 10:19 Dose: 100 mg Documented By: COLIN Hydrocortisone (Hydrocortisone 2.5 % Rectal Cr 30 Gm Tube) 1 appl [place] DAILY [facility] Last Admin: 11/15/22 10:21 Dose: 1 appl Documented By: COLIN Hydromorphone HCl (Hydromorphone Hcl 0.5 Mg/0.5 Ml Syringe) 0.5 mg IVPUSH Q2H PRN; Protocol PRN Reason: severe pain Last Admin: 11/15/22 10:20 Dose: 0.5 mg Documented By: COLIN Loperamide HCl (Loperamide Hcl 2 Mg Capsule) 2 mg PO Q4H PRN PRN Reason: Diarrhea Last Admin: 11/14/22 21:18 Dose: 2 mg Documented By: ANDREW Metoprolol Tartrate (Metoprolol Tartrate 100 Mg Tablet) 100 mg PO BID [facility]; Protocol Last Admin: 11/15/22 10:19 Dose: 100 mg Documented By: COLIN Omeprazole (Omeprazole 20 Mg Capsule.Dr) 20 mg PO BID@0630,1630 [facility] Last Admin: 11/15/22 06:21 Dose: 20 mg Documented By: OSCAR Ondansetron HCl (Ondansetron Hcl 4 Mg/2 Ml Vial) 4 mg IVPUSH Q8H PRN PRN Reason: Nausea and Vomiting Polyethylene Glycol (Polyethylene Glycol 3350 17 Gm Powd.Pack) 17 gm PO DAILY [facility] Last Admin: 11/15/22 10:21 Dose: Not Given Documented By: COLIN Non-Admin Reason: Patient Refused Sodium Chloride (0.9 % Sodium Chloride Flush 3 Ml Syringe) 3 ml IVFLUSH QSHIFT [facility] Last Admin: 11/15/22 10:21 Dose: 3 ml Documented By: COLIN Labs 11/15/22 05:56 11/15/22 05:56 Labs: Laboratory Results - last 24 hr 11/15/22 11/15/22 05:56 09:25 MCV 88.4 MCH 29.0 MCHC 32.9 RDW 23.8 H Plt Count 69 L MPV 10.1 Absolute Nucleated RBC 0.000 Nucleated RBC % (auto) 0.0 Anion Gap 9 L Estim Creat Clear Calc 62.4 Estimated GFR > 60 Random Glucose 101 Calcium 7.3 L Blood Type A Positive Antibody Screen NEGATIVE Crossmatch See Detail Microbiology Microbiology Results: Microbiology 11/09/22 21:03 Blood Culture - Final Blood - Venous No growth after 5 days. 11/09/22 21:04 Blood Culture - Final Blood - Venous No growth after 5 days. Assessment and Plan (1) Acute renal failure: Status: Acute Plan 77yo M with AF on apixaban, SSS s/p PPM, HTN, rectal CA on chemotherapy/XRT presenting with burning epigastric pain with dysphagia, anorexia, admitted for ANIL with severe acidemia, developed LGIB ANIL/metabolic acidosis prerenal from dehydration/poor PO intake from chemo; , renal ultrasound showed no obstruction, renal function normalized, s/p IV fluids , will continue hold lisinopril + Xeloda. 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 Moreau he recommend sigmoidoscopy, is scheduled for this afternoon, npo . Thrombocytopenia likely due to chemo epigastric pain resolved was likely GI toxicity of Xeloda; cont. PO PPI oral/esophageal candidiasis - fluconazole 11/09-11/22/22; creatinine clearance improved on Diflucan 100 mg daily rectal CA - recently started chemotherapy + XRT; hold Xeloda and radiation; Heme-Onc consulted and will need outpt f/u HTN BP noted to be elevated on metoprolol 100 b.i.d., lisinopril on hold due to ANIL will place on Norvasc 5 follow BP paroxysmal AF with RVR - continue metoprolol, - hold apixaban renal mass - outpt surveillance q6mo VTE ppx - SCDs dispo - eventual home In my clinical judgment, the patient requires continued inpatient hospitalization for the following reasons: LGIB, anemia need sigmoidoscopy Time Spent With Patient Time: Total time managing care of this patient today ____ minutes. Quality Stroke Does the patient have a stroke diagnosis?: No VTE Prior VTE?: No VTE Risk Level:: Medical - moderate - high VTE Device Contraindication: Treatment Not Indicated VTE Drug Contraindication: N/A - Med Ordered
--- NOTE | 2022-11-15 14:15 | P.CONAN_ITS ---
[facility] Active Problems Active Problems: All Active Problems (Updated 11/10/22 @ 16:38 by Yu Gaxiola MD) Rectal carcinoma (Acute) Candidiasis of mouth (Acute) Elevated BUN (Acute) Acute renal failure (Acute) Atrial fibrillation with rapid ventricular response (Acute) GI bleed (Acute) Chronic anticoagulation (Acute) Sinus bradycardia (Acute) Sick sinus syndrome (Acute) Normocytic anemia (Acute) Acute on chronic anemia (Acute) Encounter for interrogation of cardiac pacemaker (Acute) Rectal mass (Acute) PAF (paroxysmal atrial fibrillation) (Acute) Malignant neoplasm of rectum (Acute) Past Medical History Medical History Aftercare following left shoulder joint replacement surgery Pacemaker OA (osteoarthritis) Borderline hyperlipidemia Obesity HTN (hypertension) EtOH dependence Mild cognitive impairment Inhibited sex excitement Atrial fibrillation Cancer of kidney High cholesterol Hypertension Functional capacity: uses cane/walker Family History Family History Mother Heart problem Family history of problems with anesthesia: No Surgical History History of Problems with Anesthesia: No Social History Social History Household Members: Spouse Housing: House Do you presently have visiting nurse or other home services: No Alcohol intake: former Patient Tobacco Use Status: Former Tobacco user Smoked in Last 30 Days: No Use of substances other than those prescribed or required for medical reasons: No Currently Displaying Signs/Symptoms of Drug Intoxication Withdrawal: No Have you been hit, kicked, punched, or otherwise hurt by someone within the past year? If so, by whom?: No Do you feel safe in your current relationship?: Yes Is there a partner from a previous relationship who is making you feel unsafe now?: No Are you made to feel afraid or neglected: No Advance Directives: No Advance Directives Information Provided: Yes Do you have thoughts of harming others: None Do you have a plan to hurt others: No Plan Recently lost weight without trying: Unsure How much weight loss: Unsure Nutrition Risks: No Nutritional Risk service: Yes Meds Allergies Allergy/AdvReac Type Severity Reaction Status Date / Time No Known Allergies [NKA] Allergy Mild NOT Verified 11/04/22 18:18 APPLICABLE Active Medications: Current Medications Acetaminophen (Acetaminophen 325 Mg Tablet) 650 mg PO Q6H PRN PRN Reason: Pain, Mild (Pain Scale 1-3) Last Admin: 11/15/22 10:19 Dose: 650 mg Calcium Carbonate (Calcium Carbonate 750 Mg Tab.Chew) 750 mg PO Q6H PRN PRN Reason: Heartburn Last Admin: 11/11/22 20:47 Dose: 750 mg Fluconazole (Fluconazole 100 Mg Tablet) 100 mg PO DAILY [facility] Last Admin: 11/15/22 10:19 Dose: 100 mg Hydrocortisone (Hydrocortisone 2.5 % Rectal Cr 30 Gm Tube) 1 appl IN DAILY [facility] Last Admin: 11/15/22 10:21 Dose: 1 appl Hydromorphone HCl (Hydromorphone Hcl 0.5 Mg/0.5 Ml Syringe) 0.5 mg IVPUSH Q2H PRN; Protocol PRN Reason: severe pain Last Admin: 11/15/22 10:20 Dose: 0.5 mg Loperamide HCl (Loperamide Hcl 2 Mg Capsule) 2 mg PO Q4H PRN PRN Reason: Diarrhea Last Admin: 11/14/22 21:18 Dose: 2 mg Metoprolol Tartrate (Metoprolol Tartrate 100 Mg Tablet) 100 mg PO BID [facility]; Protocol Last Admin: 11/15/22 10:19 Dose: 100 mg Omeprazole (Omeprazole 20 Mg Capsule.) 20 mg PO BID@0630,1630 [facility] Last Admin: 11/15/22 06:21 Dose: 20 mg Ondansetron HCl (Ondansetron Hcl 4 Mg/2 Ml Vial) 4 mg IVPUSH Q8H PRN PRN Reason: Nausea and Vomiting Polyethylene Glycol (Polyethylene Glycol 3350 17 Gm Powd.Pack) 17 gm PO DAILY [facility] Last Admin: 11/15/22 10:21 Dose: Not Given Sodium Chloride (0.9 % Sodium Chloride Flush 3 Ml Syringe) 3 ml IVFLUSH QSHIFT [facility] Last Admin: 11/15/22 10:21 Dose: 3 ml Home Medications Medication Instructions Recorded Confirmed Last Taken Type apixaban 5 mg tablet (Eliquis) 5 mg PO BID 06/27/22 11/09/22 Unknown History Exam Exam Date and Time: November 15, 2022 1415 Height,Weight and Vital Signs: Height 5 ft 9 in Weight 88.904 kg Last Vital Signs Temp 97.2 F 11/15/22 14:06 Pulse 60 10/04/23 14:06 Resp 18 11/15/22 14:06 BP 158/69 H 11/15/22 14:06 Pulse Ox 100 11/15/22 14:06 O2 Del Method Room Air 11/15/22 14:06 Pertinent Lab Results Pertinent Lab Results: Laboratory Tests 11/09/22 11/09/22 11/09/22 09:32 12:17 13:55 WBC 10.7 RBC 3.40 L Hgb 9.8 L Hct 29.9 L MCV 87.9 MCH 28.8 MCHC 32.8 RDW 25.8 H Plt Count 160 D MPV 10.4 Immature Gran % (Auto) 0.9 H Neut % (Auto) 91.8 H Lymph % (Auto) 2.8 L [place] % (Auto) 3.8 Eos % (Auto) 0.6 Baso % (Auto) 0.1 Lymph # (Auto) 0.3 L [place] # (Auto) 0.4 Eos # (Auto) 0.1 Baso # (Auto) 0.0 Abs Immat Gran (auto) 0.10 H Absolute Neuts (auto) 9.8 H Absolute Nucleated RBC 0.000 Nucleated RBC % (auto) 0.0 Smear Tech's Comments VERIFIED Hold Purple Top PT INR Sodium 133 L 135 Potassium 5.3 H D 4.4 Chloride 107 112 H Carbon Dioxide 11 L 8 L* D Anion Gap 20 19 BUN 126 H 123 H Creatinine 5.21 H* 4.58 H* Estim Creat Clear Calc 12.0 13.7 Estimated GFR 11 13 Random Glucose 135 H 113 Calcium 7.8 L D 7.1 L D Magnesium 2.5 Total Bilirubin 0.6 Direct Bilirubin 0.2 AST 30 ALT 8 Alkaline Phosphatase 100 Total Creatine Kinase 128 Troponin I High Sens 6.7 D Total Protein 7.6 Albumin 3.9 Lipase 76 Hold Green Top Urine Color Yellow Urine Appearance Clear Urine pH 5.0 Ur Specific [place] 1.015 Urine Protein 30 (1+) H Urine Glucose (UA) Negative Urine Ketones Negative Urine Blood Negative Urine Nitrite Negative Ur Leukocyte Esterase Negative Urine RBC 0-2 Urine WBC 0-5 Ur Squamous Epith Cells 0-2 Urine Bacteria None Seen Hyaline Casts 6-10 Urine Osmolality Ur Random Sodium Urine Creatinine Stool Occult Blood NEGATIVE Stl C. cayetanensis PCR Stool Rotavirus A PCR Stl Adenov F 40/41 PCR Stool Astrovirus (PCR) Stool Campylobacter PCR Stool Cryptosporidium PCR Stl Sh Tox Pr E STEC PCR Stool E coli O157 PCR Stl Enterotoxigenic E PCR Stool EPEC (PCR) Stool EAEC (PCR) Stl E. histolytica PCR Stool Giardia Lamblia PCR Stl P. shigelloides PCR Stool Salmonella PCR Stool Sapovirus (PCR) Stl Shigella/EIEC PCR St Y.enterocolitica PCR Stool Vibrio (PCR) Stl Vibrio cholerae PCR Stl Norovirus GI/GII PCR C. difficile Tox B Gene Blood Type Antibody Screen Crossmatch 11/09/22 11/09/22 11/09/22 19:27 21:07 22:50 WBC RBC Hgb Hct MCV MCH MCHC RDW Plt Count MPV Immature Gran % (Auto) Neut % (Auto) Lymph % (Auto) [place] % (Auto) Eos % (Auto) Baso % (Auto) Lymph # (Auto) [place] # (Auto) Eos # (Auto) Baso # (Auto) Abs Immat Gran (auto) Absolute Neuts (auto) Absolute Nucleated RBC Nucleated RBC % (auto) Smear Tech's Comments Hold Purple Top SEE NOTE PT INR Sodium 138 Potassium 4.0 Chloride 113 H Carbon Dioxide 10 L* D Anion Gap 19 BUN 125 H Creatinine 3.95 H Estim Creat Clear Calc 17.2 Estimated GFR 15 Random Glucose 112 Calcium 7.4 L Magnesium 2.2 Total Bilirubin Direct Bilirubin AST ALT Alkaline Phosphatase Total Creatine Kinase Troponin I High Sens 8.4 Total Protein Albumin Lipase Hold Green Top Urine Color Yellow Urine Appearance Clear Urine pH 5.5 Ur Specific [place] 1.015 Urine Protein 100 (2+) H Urine Glucose (UA) Negative Urine Ketones Negative Urine Blood Large (3+) H Urine Nitrite Negative Ur Leukocyte Esterase Small (1+) H Urine RBC >20 H Urine WBC 0-5 Ur Squamous Epith Cells 0-2 Urine Bacteria None Seen Hyaline Casts 3-5 Urine Osmolality 368 L Ur Random Sodium < 20.0 Urine Creatinine 113.58 Stool Occult Blood Stl C. cayetanensis PCR Stool Rotavirus A PCR Stl Adenov F PCR Stool Astrovirus (PCR) Stool Campylobacter PCR Stool Cryptosporidium PCR Stl Sh Tox Pr E STEC PCR Stool E coli O157 PCR Stl Enterotoxigenic E PCR Stool EPEC (PCR) Stool EAEC (PCR) Stl E. histolytica PCR Stool Giardia Lamblia PCR Stl P. shigelloides PCR Stool Salmonella PCR Stool Sapovirus (PCR) Stl Shigella/EIEC PCR St Y.enterocolitica PCR Stool Vibrio (PCR) Stl Vibrio cholerae PCR Stl Norovirus GI/GII PCR C. difficile Tox B Gene Blood Type Antibody Screen Crossmatch 11/10/22 11/10/22 11/10/22 10:31 10:32 12:46 WBC 5.3 RBC 2.32 L D Hgb 6.6 L* D Hct 20.5 L* D MCV 88.4 MCH 28.4 MCHC 32.2 RDW 25.9 H Plt Count 105 L D MPV 9.9 Immature Gran % (Auto) Neut % (Auto) Lymph % (Auto) [place] % (Auto) Eos % (Auto) Baso % (Auto) Lymph # (Auto) [place] # (Auto) Eos # (Auto) Baso # (Auto) Abs Immat Gran (auto) Absolute Neuts (auto) Absolute Nucleated RBC 0.000 Nucleated RBC % (auto) 0.0 Smear Tech's Comments Hold Purple Top PT INR Sodium 142 Potassium 4.3 Chloride 118 H Carbon Dioxide 12 L Anion Gap 16 BUN 119 H Creatinine 3.14 H Estim Creat Clear Calc 21.6 Estimated GFR 19 Random Glucose 128 H Calcium 7.3 L Magnesium Total Bilirubin Direct Bilirubin AST ALT Alkaline Phosphatase Total Creatine Kinase Troponin I High Sens Total Protein Albumin Lipase Hold Green Top Urine Color Urine Appearance Urine pH Ur Specific [place] Urine Protein Urine Glucose (UA) Urine Ketones Urine Blood Urine Nitrite Ur Leukocyte Esterase Urine RBC Urine WBC Ur Squamous Epith Cells Urine Bacteria Hyaline Casts Urine Osmolality Ur Random Sodium Urine Creatinine Stool Occult Blood Stl C. cayetanensis PCR Stool Rotavirus A PCR Stl Adenov F 40 PCR Stool Astrovirus (PCR) Stool Campylobacter PCR Stool Cryptosporidium PCR Stl Sh Tox Pr E STEC PCR Stool E coli O157 PCR Stl Enterotoxigenic E PCR Stool EPEC (PCR) Stool EAEC (PCR) Stl E. histolytica PCR Stool Giardia Lamblia PCR Stl P. shigelloides PCR Stool Salmonella PCR Stool Sapovirus (PCR) Stl Shigella/EIEC PCR St Y.enterocolitica PCR Stool Vibrio (PCR) Stl Vibrio cholerae PCR Stl Norovirus GI/GII PCR C. difficile Tox B Gene Blood Type A Positive Antibody Screen NEGATIVE Crossmatch See Detail 11/10/22 11/10/22 11/11/22 19:12 22:34 10:50 WBC 6.5 RBC 3.04 L D Hgb 8.8 L D 8.8 L Hct 26.6 L D 26.6 L MCV 87.5 MCH 28.9 MCHC 33.1 RDW 24.4 H Plt Count 91 L MPV 9.3 L Immature Gran % (Auto) Neut % (Auto) Lymph % (Auto) [place] % (Auto) Eos % (Auto) Baso % (Auto) Lymph # (Auto) [place] # (Auto) Eos # (Auto) Baso # (Auto) Abs Immat Gran (auto) Absolute Neuts (auto) Absolute Nucleated RBC 0.000 Nucleated RBC % (auto) 0.0 Smear Tech's Comments Hold Purple Top PT 22.1 H INR 1.8 H Sodium 144 148 H Potassium 3.6 3.7 Chloride 119 H 113 H Carbon Dioxide 14 L 23 Anion Gap 15 16 BUN 103 H 76 H Creatinine 2.34 H 1.89 H Estim Creat Clear Calc 29.1 36.0 Estimated GFR 27 35 Random Glucose 120 H 98 Calcium 7.2 L 7.6 L Magnesium 2.0 Total Bilirubin Direct Bilirubin AST ALT Alkaline Phosphatase Total Creatine Kinase Troponin I High Sens Total Protein Albumin Lipase Hold Green Top Urine Color Urine Appearance Urine pH Ur Specific [place] Urine Protein Urine Glucose (UA) Urine Ketones Urine Blood Urine Nitrite Ur Leukocyte Esterase Urine RBC Urine WBC Ur Squamous Epith Cells Urine Bacteria Hyaline Casts Urine Osmolality Ur Random Sodium Urine Creatinine Stool Occult Blood Stl C. cayetanensis PCR Stool Rotavirus A PCR Stl Adenov F 40/41 PCR Stool Astrovirus (PCR) Stool Campylobacter PCR Stool Cryptosporidium PCR Stl Sh Tox Pr E STEC PCR Stool E coli O157 PCR Stl Enterotoxigenic E PCR Stool EPEC (PCR) Stool EAEC (PCR) Stl E. histolytica PCR Stool Giardia Lamblia PCR Stl P. shigelloides PCR Stool Salmonella PCR Stool Sapovirus (PCR) Stl Shigella/EIEC PCR St Y.enterocolitica PCR Stool Vibrio (PCR) Stl Vibrio cholerae PCR Stl Norovirus GI/GII PCR C. difficile Tox B Gene Blood Type Antibody Screen Crossmatch 11/12/22 11/12/22 11/13/22 11:34 16:09 07:10 WBC 5.5 5.9 RBC 2.84 L 3.11 L Hgb 8.2 L 8.9 L Hct 25.3 L 28.0 L MCV 89.1 90.0 MCH 28.9 28.6 MCHC 32.4 31.8 RDW 24.3 H 24.5 H Plt Count 80 L 64 L MPV 9.6 10.4 Immature Gran % (Auto) Neut % (Auto) Lymph % (Auto) [place] % (Auto) Eos % (Auto) Baso % (Auto) Lymph # (Auto) [place] # (Auto) Eos # (Auto) Baso # (Auto) Abs Immat Gran (auto) Absolute Neuts (auto) Absolute Nucleated RBC 0.000 0.000 Nucleated RBC % (auto) 0.0 0.0 Smear Tech's Comments Hold Purple Top PT 15.9 H D INR 1.3 H Sodium 145 145 Potassium 4.0 3.9 Chloride 114 H 115 H Carbon Dioxide 22 21 L Anion Gap 13 13 BUN 46 H 29 H Creatinine 1.52 H 1.34 Estim Creat Clear Calc 44.8 50.8 Estimated GFR 45 52 Random Glucose 131 H 130 H Calcium 7.6 L 7.6 L Magnesium Total Bilirubin Direct Bilirubin AST ALT Alkaline Phosphatase Total Creatine Kinase Troponin I High Sens Total Protein Albumin Lipase Hold Green Top Urine Color Urine Appearance Urine pH Ur Specific [place] Urine Protein Urine Glucose (UA) Urine Ketones Urine Blood Urine Nitrite Ur Leukocyte Esterase Urine RBC Urine WBC Ur Squamous Epith Cells Urine Bacteria Hyaline Casts Urine Osmolality Ur Random Sodium Urine Creatinine Stool Occult Blood Stl C. cayetanensis PCR Not Detected Stool Rotavirus A PCR Not Detected Stl Adenov F 40/41 PCR Not Detected Stool Astrovirus (PCR) Not Detected Stool Campylobacter PCR Not Detected Stool Cryptosporidium PCR Not Detected Stl Sh Tox Pr E STEC PCR Not Detected Stool E coli O157 PCR Not applicable Stl Enterotoxigenic E PCR Not Detected Stool EPEC (PCR) Not Detected Stool EAEC (PCR) Not Detected Stl E. histolytica PCR Not Detected Stool Giardia Lamblia PCR Not Detected Stl P. shigelloides PCR Not Detected Stool Salmonella PCR Not Detected Stool Sapovirus (PCR) Not Detected Stl Shigella/EIEC PCR Not Detected St Y.enterocolitica PCR Not Detected Stool Vibrio (PCR) Not Detected Stl Vibrio cholerae PCR Not Detected Stl Norovirus GI/GII PCR Not Detected C. difficile Tox B Gene NEGATIVE Blood Type Antibody Screen Crossmatch 11/14/22 11/14/22 11/15/22 06:42 12:06 05:56 WBC 4.9 3.6 L RBC 2.67 L 2.41 L Hgb 7.7 L 8.1 L 7.0 L* Hct 24.1 L 24.6 L 21.3 L MCV 90.3 88.4 MCH 28.8 29.0 MCHC 32.0 32.9 RDW 24.1 H 23.8 H Plt Count 67 L 69 L MPV 9.6 10.1 Immature Gran % (Auto) Neut % (Auto) Lymph % (Auto) [place] % (Auto) Eos % (Auto) Baso % (Auto) Lymph # (Auto) [place] # (Auto) Eos # (Auto) Baso # (Auto) Abs Immat Gran (auto) Absolute Neuts (auto) Absolute Nucleated RBC 0.000 0.000 Nucleated RBC % (auto) 0.0 0.0 Smear Tech's Comments Hold Purple Top PT INR Sodium 142 Potassium 3.6 Chloride 112 H Carbon Dioxide 25 Anion Gap 9 L BUN 17 H Creatinine 1.09 Estim Creat Clear Calc 62.4 Estimated GFR > 60 Random Glucose 101 Calcium 7.3 L Magnesium Total Bilirubin Direct Bilirubin AST ALT Alkaline Phosphatase Total Creatine Kinase Troponin I High Sens Total Protein Albumin Lipase Hold Green Top See Note Urine Color Urine Appearance Urine pH Ur Specific [place] Urine Protein Urine Glucose (UA) Urine Ketones Urine Blood Urine Nitrite Ur Leukocyte Esterase Urine RBC Urine WBC Ur Squamous Epith Cells Urine Bacteria Hyaline Casts Urine Osmolality Ur Random Sodium Urine Creatinine Stool Occult Blood Stl C. cayetanensis PCR Stool Rotavirus A PCR Stl Adenov F 40/41 PCR Stool Astrovirus (PCR) Stool Campylobacter PCR Stool Cryptosporidium PCR Stl Sh Tox Pr E STEC PCR Stool E coli O157 PCR Stl Enterotoxigenic E PCR Stool EPEC (PCR) Stool EAEC (PCR) Stl E. histolytica PCR Stool Giardia Lamblia PCR Stl P. shigelloides PCR Stool Salmonella PCR Stool Sapovirus (PCR) Stl Shigella/EIEC PCR St Y.enterocolitica PCR Stool Vibrio (PCR) Stl Vibrio cholerae PCR Stl Norovirus GI/GII PCR C. difficile Tox B Gene Blood Type Antibody Screen Crossmatch 11/15/22 09:25 WBC RBC Hgb Hct MCV MCH MCHC RDW Plt Count MPV Immature Gran % (Auto) Neut % (Auto) Lymph % (Auto) [place] % (Auto) Eos % (Auto) Baso % (Auto) Lymph # (Auto) [place] # (Auto) Eos # (Auto) Baso # (Auto) Abs Immat Gran (auto) Absolute Neuts (auto) Absolute Nucleated RBC Nucleated RBC % (auto) Smear Tech's Comments Hold Purple Top PT INR Sodium Potassium Chloride Carbon Dioxide Anion Gap BUN Creatinine Estim Creat Clear Calc Estimated GFR Random Glucose Calcium Magnesium Total Bilirubin Direct Bilirubin AST ALT Alkaline Phosphatase Total Creatine Kinase Troponin I High Sens Total Protein Albumin Lipase Hold Green Top Urine Color Urine Appearance Urine pH Ur Specific [place] Urine Protein Urine Glucose (UA) Urine Ketones Urine Blood Urine Nitrite Ur Leukocyte Esterase Urine RBC Urine WBC Ur Squamous Epith Cells Urine Bacteria Hyaline Casts Urine Osmolality Ur Random Sodium Urine Creatinine Stool Occult Blood Stl C. cayetanensis PCR Stool Rotavirus A PCR Stl Adenov F 40/41 PCR Stool Astrovirus (PCR) Stool Campylobacter PCR Stool Cryptosporidium PCR Stl Sh Tox Pr E STEC PCR Stool E coli O157 PCR Stl Enterotoxigenic E PCR Stool EPEC (PCR) Stool EAEC (PCR) Stl E. histolytica PCR Stool Giardia Lamblia PCR Stl P. shigelloides PCR Stool Salmonella PCR Stool Sapovirus (PCR) Stl Shigella/EIEC PCR St Y.enterocolitica PCR Stool Vibrio (PCR) Stl Vibrio cholerae PCR Stl Norovirus GI/GII PCR C. difficile Tox B Gene Blood Type A Positive Antibody Screen NEGATIVE Crossmatch See Detail Airway Mallampati Class: III TM Dist: >3cm Neck ROM: Full Denture: Upper and Lower Assessment and Plan Assessment Anesthesia Assessment: Anesthesia Plan Discussed and Chart Reviewed Final Anesthetic Review Family History of Problems with Anesthesia: No History of Problems with Anesthesia: No NPO: Yes ASA Class: III and Emergency Final Preanesthetic Review: No Changes in Pt Med Stat, Meds/Allgs Chart Reviewed, Consent Obtained/Reviewed and Anes Risks/Benef Reviewed Patient Risk: Intermediate Procedure Risk: Low Anesthetic Plan Anesthetic Plan: MAC: Disposition: Standard PACU
[2022-11-15] MEDS: Lactated Ringers 1,000 ML 50 ML IVCONT (14:23)
--- NOTE | 2022-11-15 14:23 | PC.NURSE ---
blood running via pump Left AC 97.2 60 18 158/69 100
--- NOTE | 2022-11-15 14:59 | MHC.SHP ---
Pre-Procedural Eval Section A Date of Service: 11/15/22 The patient is an INPATIENT: Yes The History & Physical has been completed within 30 days and I have reviewed it.: Yes Section B Chief Complaint: rectal bleeding Allergies: Allergies Allergy/AdvReac Type Severity Reaction Status Date / Time No Known Allergies [NKA] Allergy Mild NOT Verified 11/04/22 18:18 APPLICABLE Plan Diagnosis/Plan: Unchanged I have reviewed the history and physical and performed a pertinent physical examination on my patient. No changes have occurred unless specified.rectal bleeding Time Spent With Patient Time: Total time managing care of this patient today ____ minutes.
--- NOTE | 2022-11-15 15:00 | P.OP_ITS ---
Operative Note Operative Note Date of Service: 11/15/22 Narrative: Operative Information Procedure Description: sigmoidoscopy Indication: rectal bleeding Anesthesia: MAC Sigmoidoscopy Instrument: Upper endoscope Colonoscopy Monitoring: Vital signs and clinical assessment, continuous EKG monitoring, Pulse oximetry, Carbon Dioxide monitoring and blood pressure monitoring were done throughout the procedure. Procedure: The patient was placed in the left lateral decubitis position and pre-procedure medications were administered. After a digital rectal examination of the ano-rectum, the video colonoscope was inserted into the rectum and advanced through the colon to the transverse colon. The scope was slowly withdrawn in a retrograde panoramic fashion and the colon mucosa was carefully examined including a retroflexed view of the rectum. Findings and interventions are described below. Procedure Difficulty: easy Findings: Transverse Colon -normal Descending Colon:normal Sigmoid Colon: normal Rectum: proximal rectum with friable rectal mass about 2-3 cm with surrounding fibrotic and scarred tissue, was actively oozing blood. A bear claw clip was applied with reduction in blood flow but still oozing so hemospray then applied. There was macerated mucosa in the rest of the rectum and distal sigmoid probably from XRT. 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 Above findings were reviewed with the patient and relevant handouts were provided if indicated.
--- NOTE | 2022-11-15 20:32 | ECG_ITS ---
Test Reason : AFIB Blood Pressure : / mmHG Vent. Rate : 114 BPM Atrial Rate : 000 BPM P-R Int : 000 ms QRS Dur : 092 ms QT Int : 302 ms P-R-T Axes : 000 012 046 degrees QTc Int : 416 ms Atrial fibrillation with rapid ventricular response with premature ventricular or aberrantly conducted complexes Nonspecific ST abnormality Abnormal ECG When compared with ECG of 09-NOV-2022 15:46, Atrial fibrillation has replaced Sinus rhythm Vent. rate has increased BY [address] abnormality is now Present Referred By: Ron Weinstein Electronically Signed By:MAYKEL PURCELL
--- NOTE | 2022-11-15 23:59 | PC.NURSE ---
PT HR went up to 150's with ambulation. 12 leads EKG done showing Afib with Presley JOHNSON notified. Pt denies chest pain. At 2200, pt HR converted back to NSR /a paced. Remains have a bloody smear per rectum. NO active bleeding noted.
[2022-11-16] VITALS (7 sets, daily range): BP systolic 112–166; BP diastolic 68–72; PULSE 63–85; RESP 16–20; TEMP 36.4–37.5; O2SAT 95–99
[2022-11-16] MEDS: HYDROmorphone HCl 0.5 MG/0.5 ML SYRINGE IVPUSH ×5 (02:28→16:07)
[2022-11-16] MEDS: Omeprazole 20 MG CAPSULE.DR PO ×2 (06:06→16:06)
[2022-11-16 07:33] LABS: Hematocrit 27.5 % (42.0-52.0); Hemoglobin 8.7 g/dl (14.0-18.0); Mean Corpuscular HGB Conc 31.6 g/dl (31.0-36.0); Mean Corpuscular Hemoglobin 28.5 pg (27.0-33.0); Mean Corpuscular Volume 90.2 fL (80.0-98.0); Mean Platelet Volume 10.2 fL (9.4-12.4); Red Blood Count 3.05 X10*6/uL (4.60-5.80); Red Cell Distribution Width 23.3 % (11.0-16.0)
[2022-11-16 07:34] LABS: Platelet Count 75 X10*3/uL (160-400)
[2022-11-16] MEDS: Metoprolol Tartrate 100 MG TABLET PO ×2 (08:56→19:39)
[2022-11-16] MEDS: amLODIPine Besylate 5 MG TABLET PO (08:56)
[2022-11-16] MEDS: Fluconazole 100 MG TABLET PO (08:56)
[2022-11-16] MEDS: 0.9 % Sodium Chloride Flush 3 ML SYRINGE IVFLUSH ×2 (08:57→16:07)
[2022-11-16] MEDS: Acetaminophen 325 MG TABLET 650 MG PO ×2 (08:57→16:07)
[2022-11-16] MEDS: Lactated Ringers 1,000 ML 50 ML IVCONT (08:58)
[2022-11-16] MEDS: Hydrocortisone 2.5 % Rectal Cr 30 GM TUBE 1 APPL PR (09:12)
--- NOTE | 2022-11-16 13:04 | HO.POSTANES ---
Post Anesthesia Evaluation Post Anesthesia Evaluation Date of Service: 11/16/22 Vital Signs: Vital Signs Temp Pulse Resp BP Pulse Ox O2 Del Method 11/16/22 11:32 97.9 F 85 18 112/68 95 Room Air 11/16/22 07:19 99.0 F 64 18 164/70 H 98 Room Air 11/16/22 04:00 97.6 F 66 16 166/71 H 97 Room Air Anesthesia: Monitored Mental Status: Awake Pain Control: Satisfactory Nausea/Vomiting: None Hydration: Adequate Anesthesia-Related Issues: No Anes. Related Issues
--- NOTE | 2022-11-16 16:36 | HO.PM.IMPN ---
Subjective Subjective Date of Service: 11/16/22 Interval History: Offers no acute complaints denies abdominal pain, no chest pain, no lightheadedness, no dizziness , has had 3 small bowel movements this morning mixed with blood with no associated abdominal cramps, complaining of discomfort with bowel movements. Review of Systems All other system reviewed and negative. Physical Exam Vital Signs: Vital Signs: Last Vital Signs Temp 99.0 F 11/16/22 15:09 Pulse 67 11/16/22 15:09 Resp 18 11/16/22 15:09 BP 146/72 H 11/16/22 15:09 Pulse Ox 98 11/16/22 15:09 O2 Del Method Room Air 11/16/22 15:09 BMI result Body Mass Index 28.9 Const: Other: Gen: Awake alert, in no acute distress Neck: supple Lungs: clear to auscultation bilaterally Heart: regular rate and rhythm, no murmurs Abd: soft, non-tender, non-distended, bowel sounds audible, no guarding no rigidity Ext: no edema Skin: warm/well-perfused Neuro: alert and oriented x3, no focal findings Psych: appropriate affect Objective Data Active Medications Acetaminophen (Acetaminophen 325 Mg Tablet) 650 mg PO Q6H PRN PRN Reason: Pain, Mild (Pain Scale 1-3) Last Admin: 11/16/22 16:07 Dose: 650 mg Documented By: COLIN Amlodipine Besylate (Amlodipine Besylate 5 Mg Tablet) 5 mg PO DAILY [facility]; Protocol Last Admin: 11/16/22 08:56 Dose: 5 mg Documented By: COLIN Calcium Carbonate (Calcium Carbonate 750 Mg Tab.Chew) 750 mg PO Q6H PRN PRN Reason: Heartburn Last Admin: 11/11/22 20:47 Dose: 750 mg Documented By: MITZI Fluconazole (Fluconazole 100 Mg Tablet) 100 mg PO DAILY [facility] Last Admin: 11/16/22 08:56 Dose: 100 mg Documented By: COLIN Hydrocortisone (Hydrocortisone 2.5 % Rectal Cr 30 Gm Tube) 1 appl [place] DAILY [facility] Last Admin: 11/16/22 09:12 Dose: 1 appl Documented By: COLIN Hydromorphone HCl (Hydromorphone Hcl 0.5 Mg/0.5 Ml Syringe) 0.5 mg IVPUSH Q2H PRN; Protocol PRN Reason: severe pain Last Admin: 11/16/22 16:07 Dose: 0.5 mg Documented By: COLIN Lactated Ringer's (Lr) 1,000 mls @ 50 mls/hr IVCONT .Q20H [facility] Last Infusion: 11/16/22 11:24 Dose: Infused Documented By: COLIN Loperamide HCl (Loperamide Hcl 2 Mg Capsule) 2 mg PO Q4H PRN PRN Reason: Diarrhea Last Admin: 11/14/22 21:18 Dose: 2 mg Documented By: ANDREW Metoprolol Tartrate (Metoprolol Tartrate 100 Mg Tablet) 100 mg PO BID [facility]; Protocol Last Admin: 11/16/22 08:56 Dose: 100 mg Documented By: COLIN Omeprazole (Omeprazole 20 Mg Capsule.Dr) 20 mg PO BID@0630,1630 [facility] Last Admin: 11/16/22 16:06 Dose: 20 mg Documented By: COLIN Ondansetron HCl (Ondansetron Hcl 4 Mg/2 Ml Vial) 4 mg IVPUSH Q8H PRN PRN Reason: Nausea and Vomiting Polyethylene Glycol (Polyethylene Glycol 3350 17 Gm Powd.Pack) 17 gm PO DAILY [facility] Last Admin: 11/16/22 09:13 Dose: Not Given Documented By: COLIN Non-Admin Reason: Patient Refused Sodium Chloride (0.9 % Sodium Chloride Flush 3 Ml Syringe) 3 ml IVFLUSH QSHIFT [facility] Last Admin: 11/16/22 16:07 Dose: 3 ml Documented By: COLIN Labs 11/16/22 06:55 11/15/22 05:56 Labs: Laboratory Results - last 24 hr 11/16/22 06:55 MCV 90.2 MCH 28.5 MCHC 31.6 RDW 23.3 H Plt Count 75 L MPV 10.2 Absolute Nucleated RBC 0.000 Nucleated RBC % (auto) 0.0 Hold Green Top See Note Assessment and Plan (1) Acute renal failure: Status: Acute Plan 77yo M with AF on apixaban, SSS s/p PPM, HTN, rectal CA on chemotherapy/XRT presenting with burning epigastric pain with dysphagia, anorexia, admitted for ANIL with severe acidemia, developed LGIB ANIL/metabolic acidosis prerenal from dehydration/poor PO intake from chemo; , renal ultrasound showed no obstruction, renal function normalized, s/p IV fluids , will continue hold lisinopril + Xeloda. 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 PO PPI oral/esophageal candidiasis - fluconazole 11/09-11/22/22; creatinine clearance improved on Diflucan 100 mg daily rectal CA - recently started chemotherapy + XRT; hold Xeloda and radiation; Heme-Onc consulted and will need outpt f/u HTN BP noted to be elevated on metoprolol 100 b.i.d., added Norvasc 5 mg better BP control, previously was on lisinopril discontinued due to ANIL paroxysmal AF with RVR - continue metoprolol, - hold apixaban renal mass - outpt surveillance q6mo VTE ppx - SCDs dispo - eventual home In my clinical judgment, the patient requires continued inpatient hospitalization for the following reasons: LGIB, anemia need further workup an expert opinion if continue to bleed Time Spent With Patient Time: Total time managing care of this patient today ____ minutes. Quality Stroke Does the patient have a stroke diagnosis?: No VTE Prior VTE?: No VTE Risk Level:: Medical - moderate - high VTE Device Contraindication: Treatment Not Indicated VTE Drug Contraindication: N/A - Med Ordered
[2022-11-16] MEDS: Loperamide HCl 2 MG CAPSULE PO (22:35)
[2022-11-17] VITALS (8 sets, daily range): BP systolic 106–150; BP diastolic 50–79; PULSE 59–79; RESP 17–22; TEMP 36.5–36.9; O2SAT 96–98
[2022-11-17] MEDS: Loperamide HCl 2 MG CAPSULE PO ×2 (05:08→11:40)
[2022-11-17] MEDS: Omeprazole 20 MG CAPSULE.DR PO ×2 (05:08→15:41)
--- NOTE | 2022-11-17 06:46 | PM.EVENT ---
Event Note Date of Service: 11/17/22 Event Note: AFIB with RVR this morning, IV cardizem 10 mg and if perisists then start drip Time Spent With Patient Time: Total time managing care of this patient today ____ minutes.
[2022-11-17] MEDS: amLODIPine Besylate 5 MG TABLET PO (08:23)
[2022-11-17] MEDS: Metoprolol Tartrate 100 MG TABLET PO (08:24)
[2022-11-17] MEDS: 0.9 % Sodium Chloride Flush 3 ML SYRINGE IVFLUSH (08:29)
[2022-11-17] MEDS: Hydrocortisone 2.5 % Rectal Cr 30 GM TUBE 1 APPL PR (09:31)
--- NOTE | 2022-11-17 14:12 | HO.PM.IMPN ---
Subjective Subjective Date of Service: 11/17/22 Physical Exam Vital Signs: Vital Signs: Last Vital Signs Temp 97.7 F 11/17/22 11:51 Pulse 59 11/17/22 11:51 Resp 17 11/17/22 11:51 BP 116/60 11/17/22 11:51 Pulse Ox 97 11/17/22 11:51 O2 Del Method Room Air 11/17/22 11:51 BMI result Body Mass Index 28.9 Objective Data Active Medications Acetaminophen (Acetaminophen 325 Mg Tablet) 650 mg PO Q6H PRN PRN Reason: Pain, Mild (Pain Scale 1-3) Last Admin: 11/16/22 16:07 Dose: 650 mg Documented By: COLIN Calcium Carbonate (Calcium Carbonate 750 Mg Tab.Chew) 750 mg PO Q6H PRN PRN Reason: Heartburn Last Admin: 11/11/22 20:47 Dose: 750 mg Documented By: MITZI Diltiazem HCl (Diltiazem Hcl 60 Mg Tablet) 60 mg PO TID [facility]; Protocol Fluconazole (Fluconazole 100 Mg Tablet) 100 mg PO DAILY [facility] Last Admin: 11/17/22 08:23 Dose: 100 mg Documented By: PAMELA Hydrocortisone (Hydrocortisone 2.5 % Rectal Cr 30 Gm Tube) 1 appl [place] DAILY [facility] Last Admin: 11/17/22 09:31 Dose: 1 appl Documented By: PAMELA Hydromorphone HCl (Hydromorphone Hcl 0.5 Mg/0.5 Ml Syringe) 0.5 mg IVPUSH Q2H PRN; Protocol PRN Reason: severe pain Last Admin: 11/17/22 13:49 Dose: 0.5 mg Documented By: PAMELA Loperamide HCl (Loperamide Hcl 2 Mg Capsule) 2 mg PO Q4H PRN PRN Reason: Diarrhea Last Admin: 11/17/22 11:40 Dose: 2 mg Documented By: PAMELA Metoprolol Tartrate (Metoprolol Tartrate 100 Mg Tablet) 100 mg PO BID [facility]; Protocol Last Admin: 11/17/22 08:24 Dose: 100 mg Documented By: PAMELA Omeprazole (Omeprazole 20 Mg Capsule.) 20 mg PO BID@0630,1630 [facility] Last Admin: 11/17/22 05:08 Dose: 20 mg Documented By: HO.MATTHEP Ondansetron HCl (Ondansetron Hcl 4 Mg/2 Ml Vial) 4 mg IVPUSH Q8H PRN PRN Reason: Nausea and Vomiting Oxycodone HCl (Oxycodone Hcl Immed Release 5 Mg Tablet) 5 mg PO Q4H PRN PRN Reason: Pain, Moderate(Pain Scale 4-6) Last Admin: 11/17/22 13:19 Dose: 5 mg Documented By: PAMELA Polyethylene Glycol (Polyethylene Glycol 3350 17 Gm Powd.Pack) 17 gm PO DAILY [facility] Last Admin: 11/17/22 08:48 Dose: Not Given Documented By: MEGHAN Non-Admin Reason: increase bowel movements Sodium Chloride (0.9 % Sodium Chloride Flush 3 Ml Syringe) 3 ml IVFLUSH QSHIFT [facility] Last Admin: 11/17/22 08:29 Dose: 3 ml Documented By: PAMELA Labs 11/17/22 07:02 11/15/22 05:56 Labs: Laboratory Results - last 24 hr 11/17/22 07:02 MCV 86.9 MCH 28.6 MCHC 32.9 RDW 23.3 H Plt Count 74 L MPV 10.7 Absolute Nucleated RBC 0.000 Nucleated RBC % (auto) 0.0 Hold Green Top See Note Assessment and Plan (1) Acute renal failure: Status: Acute Plan 77yo M with AF on apixaban, SSS s/p PPM, HTN, rectal CA on chemotherapy/XRT presenting with burning epigastric pain with dysphagia, anorexia, admitted for ANIL with severe acidemia, developed LGIB Paroxysmal AFib with RVR patient noted to be in rapid ventricular rate to 160 with chest palpitation, patient received 2 dosages of IV Cardizem heart rate subsequently improved to 60s patient started on Cardizem 60 mg t.i.d. ANIL/metabolic acidosis prerenal from dehydration/poor PO intake from chemo; , renal ultrasound showed no obstruction, renal function normalized, s/p IV fluids , will continue hold lisinopril + Xeloda. Acute on chronic blood loss anemia due to acute LGIB transfused 2u PRBCs 11/10/22 with appropriate rise in H+H; repeat hematocrit dropped on 11/15 transfuse 1 unit of packed RBC repeat hematocrit improved but slowly trending down continue to hold Eliquis, s/p vitamin K 11/11/22, INR improved to 1.3 status post recent colonoscopy that showed diverticulosis and internal hemorrhoids , started on hemorrhoidal cream s/p sigmoidoscopy on 11/15 noted to have bleeding rectal tumour s/p OTC clip and hemospray continue to have blood in stools, with multiple bowel movements and pain, will monitor H&H , increased pain medications increase dose of Imodium and DC MiraLax Case discussed with Dr. Gaxiola/Dr. Ramirez regarding embolization of tumor,IR recommended CTA abdomen that showed hyperemia of the rectum, no evidence of extravasation. Pancytopenia likely due to chemo. epigastric pain resolved was likely GI toxicity of Xeloda; cont. PO PPI oral/esophageal candidiasis - fluconazole 11/09-11/22/22; creatinine clearance improved on Diflucan 100 mg daily rectal CA - recently started chemotherapy + XRT; hold Xeloda and radiation; Heme-Onc consulted and will need outpt f/u HTN BP noted to be elevated on metoprolol 100 b.i.d., lisinopril discontinued due to ANIL patient placed on Cardizem 60 mg t.i.d. for better blood pressure and heart rate control paroxysmal AF with RVR - continue metoprolol, - hold apixaban renal mass - 1.5 cm enhancing lesion in the left mid pole kidney suspicious for renal mass, outpt follow-up with Oncology VTE ppx - SCDs dispo - eventual home In my clinical judgment, the patient requires continued inpatient hospitalization for the following reasons: LGIB, anemia need further workup an expert opinion if continue to bleed Time Spent With Patient Time: Total time managing care of this patient today ____ minutes. Quality Stroke Does the patient have a stroke diagnosis?: No VTE Prior VTE?: No VTE Risk Level:: Medical - moderate - high VTE Device Contraindication: Treatment Not Indicated VTE Drug Contraindication: N/A - Med Ordered
[2022-11-17] MEDS: Loperamide HCl 2 MG CAPSULE 4 MG PO (14:43)
--- NOTE | 2022-11-17 14:59 | MHC.CM.PN ---
PER MD ROUNDS, PT NOT MEDICALLY CLEARED TO DC DUE TO AFIB DCP REMAINS HOME VIA FAMILY TRANSPORT
--- NOTE | 2022-11-17 16:39 | PC.NURSE ---
Assumed care at 07:00. Patient alert and oriented x4, was communicated with in [place] and used interpretter also. Patient with frequent blood-tinged BMs liquid stool, purple colored on first 5 BMs, had two BMs that were clay and had slight formed parts fterward. Discussed with MD and increased PRN loperamide dosage administered with effect. Patient with pain in anus 11/21, had IV dilaudid 0.5 mg IV Q2 administered with minimal effect, PO oxycodone given per MD with poor effect. Patient with IV dilaudid increased to 1 mg per MD adminitered with effect. patient with urgency to void and little or often no output while straining to void, bladder scanned for 106 ccs, MD aware. patient diet advanced from clear liquids to cardiac diet, mechanical engineering teacher consulted for question of can patient have ensures. Patient incontinent of stool often with urgency. Has been applying proctozone to self repeatedly with each BM, MD notified.
[2022-11-17] MEDS: Acetaminophen 325 MG TABLET 650 MG PO (17:38)
[2022-11-18] VITALS (7 sets, daily range): BP systolic 103–140; BP diastolic 51–66; PULSE 60–98; RESP 18–20; TEMP 36.6–38.5; O2SAT 95–100
[2022-11-18] MEDS: Metoprolol Tartrate 100 MG TABLET PO ×3 (00:30→21:08)
[2022-11-18] MEDS: 0.9 % Sodium Chloride Flush 3 ML SYRINGE IVFLUSH ×2 (01:06→10:12)
[2022-11-18] MEDS: Omeprazole 20 MG CAPSULE.DR PO ×2 (04:20→14:37)
[2022-11-18 07:15] LABS: Anion Gap 13 (12-20); Blood Urea Nitrogen 14 mg/dL (9-16); Calcium 7.3 mg/dL (8.4-10.2); Carbon Dioxide 25 mmol/L (22-29); Chloride 108 mmol/L (96-108); Creatinine Clr Calc Pharmacy 64.1; Estimated Glomerular Filt Rate > 60; Glucose Random 108 mg/dL (60-115); Potassium 4.4 mmol/L (3.3-5.1); Sodium 142 mmol/L (135-145)
[2022-11-18] MEDS: Hydrocortisone 2.5 % Rectal Cr 30 GM TUBE 1 APPL PR (10:13)
--- NOTE | 2022-11-18 16:03 | HO.PM.IMPN ---
Subjective Subjective Date of Service: 11/18/22 Interval History: continues to complain of rectal tenderness with minimal bleeding. Fever to 101.3 this afternoon Review of Systems denies chest pain Denies shortness of breath Denies nausea vomiting diarrhea Physical Exam Vital Signs: Vital Signs: Last Vital Signs Temp 101.3 F H 11/18/22 15:37 Pulse 62 11/18/22 15:37 Resp 20 11/18/22 15:37 BP 125/60 11/18/22 15:37 Pulse Ox 100 11/18/22 15:37 O2 Del Method Room Air 11/18/22 15:37 BMI result Body Mass Index 28.9 Const: Other: awake alert no acute distress Resp: Other: clear to auscultation bilaterally no rales rhonchi or wheezes Cardio: Other: no S4; positive S1-S2; no S3 murmurs rubs or gallops GI: Other: soft nontender nondistended normoactive caroline Extrem: Other: no edema bilaterally Objective Data Active Medications Acetaminophen (Acetaminophen 325 Mg Tablet) 650 mg PO Q6H PRN PRN Reason: Pain, Mild (Pain Scale 1-3) Last Admin: 11/17/22 17:38 Dose: 650 mg Documented By: TRELL Calcium Carbonate (Calcium Carbonate 750 Mg Tab.Chew) 750 mg PO Q6H PRN PRN Reason: Heartburn Last Admin: 11/11/22 20:47 Dose: 750 mg Documented By: MITZI Diltiazem HCl (Diltiazem Hcl 60 Mg Tablet) 60 mg PO TID [facility]; Protocol Last Admin: 11/18/22 14:37 Dose: 60 mg Documented By: DES Fluconazole (Fluconazole 100 Mg Tablet) 100 mg PO DAILY [facility] Stop: 11/22/22 23:59 Last Admin: 11/18/22 10:13 Dose: 100 mg Documented By: DES Hydrocortisone (Hydrocortisone 2.5 % Rectal Cr 30 Gm Tube) 1 appl [place] DAILY [facility] Last Admin: 11/18/22 10:13 Dose: 1 appl Documented By: DES Hydromorphone HCl (Hydromorphone Hcl 1 Mg/Ml Syringe) 1 mg IVPUSH Q4H PRN; Protocol PRN Reason: severe pain Last Admin: 11/18/22 11:48 Dose: 1 mg Documented By: DES Loperamide HCl (Loperamide Hcl 2 Mg Capsule) 4 mg PO Q4H PRN PRN Reason: Diarrhea Last Admin: 11/18/22 14:37 Dose: 4 mg Documented By: DES Metoprolol Tartrate (Metoprolol Tartrate 100 Mg Tablet) 100 mg PO BID [facility]; Protocol Last Admin: 11/18/22 10:13 Dose: 100 mg Documented By: DES Omeprazole (Omeprazole 20 Mg Capsule.Dr) 20 mg PO BID@0630,1630 [facility] Last Admin: 11/18/22 14:37 Dose: 20 mg Documented By: DES Ondansetron HCl (Ondansetron Hcl 4 Mg/2 Ml Vial) 4 mg IVPUSH Q8H PRN PRN Reason: Nausea and Vomiting Oxycodone HCl (Oxycodone Hcl Immed Release 5 Mg Tablet) 5 mg PO Q4H PRN PRN Reason: Pain, Moderate(Pain Scale 4-6) Last Admin: 11/18/22 04:20 Dose: 5 mg Documented By: ARASH Sodium Chloride (0.9 % Sodium Chloride Flush 3 Ml Syringe) [facility] Last Admin: 11/18/22 14:37 Dose: 3 ml Documented By: DES Labs 11/18/22 06:32 11/18/22 06:32 Labs: Laboratory Results - last 24 hr 11/18/22 06:32 MCV 90.4 MCH 28.6 MCHC 31.6 RDW 23.7 H Plt Count 79 L MPV 10.5 Absolute Nucleated RBC 0.000 Nucleated RBC % (auto) 0.0 Anion Gap 13 Estim Creat Clear Calc 64.1 Estimated GFR > 60 Random Glucose 108 Calcium 7.3 L Assessment and Plan (1) Acute renal failure: Status: Acute (2) PAF (paroxysmal atrial fibrillation): Status: Acute (3) Malignant neoplasm of rectum: Status: Acute Plan 77yo M with AF on apixaban, SSS s/p PPM, HTN, rectal CA on chemotherapy/XRT presenting with burning epigastric pain with dysphagia, anorexia, admitted for ANIL with severe acidemia, developed LGIB Paroxysmal AFib with RVR patient noted to be in rapid ventricular rate to 160 with chest palpitation, patient received 2 dosages of IV Cardizem heart rate subsequently improved to 60s patient started on Cardizem 60 mg t.i.d. 1.ANIL/metabolic acidosis - normalized with volume repletion -follow renals/divalents 2.Acute on chronic blood loss anemia due to acute LGIB -transfused 3u PRBCs since admit -continue to hold Eliquis;, follow INR -follow daily CBC 3.Malignant neoplasm of rectum - continues to have multiple watery stools - will check C diff - switch Imodium to Lomotil - continue to hold Xeloda 3.Paroxysmal AF with RVR - acceptable rate control - continue to hold Eliquis - adjust therapies as indicated SCDs Full Code In my clinical judgment, the patient requires continued inpatient hospitalization for the following reasons: LGIB, anemia need further workup an expert opinion if continue to bleed Time Spent With Patient Time: Total time managing care of this patient today ____ minutes. Quality Stroke Does the patient have a stroke diagnosis?: No VTE Prior VTE?: No VTE Risk Level:: Medical - moderate - high VTE Device Contraindication: Treatment Not Indicated VTE Drug Contraindication: N/A - Med Ordered
[2022-11-18] MEDS: Acetaminophen 325 MG TABLET 650 MG PO (16:23)
[2022-11-19 03:32] VITALS: BP 113/58; PULSE 89; RESP 18; TEMP 37; O2SAT 98
[2022-11-19 08:00] VITALS: BP 122/56; PULSE 69; RESP 20; TEMP 36.7; O2SAT 98
[2022-11-19] MEDS: Metoprolol Tartrate 100 MG TABLET PO ×2 (10:13→21:02)
[2022-11-19 11:52] VITALS: BP 122/57; PULSE 68; RESP 20; TEMP 36.8; O2SAT 97
--- NOTE | 2022-11-19 13:44 | PM.HEMONCPN ---
Medical Summary - Medical Summary Date of Service: 11/19/22 Primary Care Provider: Joao Duncan Medical Summary: DIAGNOSIS: RECTAL CARCINOMA. ON CHEMORADIATION. ANEMIA. GI DISTRESS. Interval History Interval history: Mehran Samuel is a 77 year old gentleman with a recent diagnosis of rectal carcinoma. Patient has been on combined modality therapy with chemo and radiation. He presented to the hospital yesterday to the ED with?severe epigastric pain. Patient states symptoms began when he awoke at 02:00 to use the bathroom. Patient reports having severe burning pain in his epigastric region that radiated up his throat and also to his right side. Patient felt nauseous, but could not vomit.He said that it felt like acid reflux only much worse. He has been experiencing some minor pain when swallowing and also difficulty with swelling for the past 3-4 days. He started chemotherapy and radiation at the beginning of this month for rectal cancer. He has had decreased appetite with reduced p.o. intake since starting treatment, he has been eating and drinking very little the past few days. Has also noticed decreased urine output. Denies diarrhea, but states stool is softer than usual. He denies chest pressure, palpitations. No fever, chills, abdominal pain. Here he was afebrile and hypotensive as low as 97/50. Labs were significant for stable H&H of 9.8/29.9, initial sodium 133, potassium 5.3, bicarb is low as 8, BUN 126, creatinine 5.21. No leukocytosis. Troponin 6.7. Hepatic function baseline. UA with proteinuria of 30, negative for UTI. CXR showed no acute intrathoracic disease. CT?of abdomen/pelvis a 1.5 cm contour abnormality in left kidney in the lateral midpole remains concerning for underlying mass, suggest consider MRI imaging, and also found possible filling deficit in the rectosigmoid colon. EKG showed atrial paced rhythm without evidence of ST elevations or depressions and QTc 416. Pt was treated with GI cocktail, IVF, and placed on a sodium bicarb drip. Pt was admitted to the hospital for treatment of ANIL in the setting of recently starting chemo and radiation with likely GI toxicity secondary to chemotherapy. Review of Systems Review of Systems: Epigastric pain radiating to the throat and right-sided chest Nausea, no vomiting Dysphagia, odynophagia Generalized weakness Denies chest pressure, palpitations No fever, chills Denies abdominal pain No diarrhea, but stool softer than normal <SEBASTIAN Edward - Last Filed: 11/09/22 19:11> [facility] Medical History: Medical History: PMH significant for?AFib on Eliquis, sick sinus syndrome with pacemaker in place, HTN, Rectal cancer currently on oral chemotherapy and receiving radiation Aftercare following left shoulder joint replacement surgery Pacemaker OA (osteoarthritis) Borderline hyperlipidemia Obesity HTN (hypertension) EtOH dependence Mild cognitive impairment Inhibited sex excitement Atrial fibrillation Cancer of kidney High cholesterol Hypertension : Family History: Review of Systems - Constitutional Reports anorexia - Eyes Reports other - ENT Reports system reviewed and no additional complaints, except as documented - Cardiovascular Reports fast heart rate - Respiratory Reports dyspnea on exertion - Gastrointestinal Reports abdominal pain - Genitourinary Genitourinary: Reports urinary urgency - Neurologic Reports system reviewed and no additional complaints, except as documented [facility] Medical History: Medical History (Last Reviewed 11/10/22 @ 09:15 by Page Livingston PT) Aftercare following left shoulder joint replacement surgery Atrial fibrillation Borderline hyperlipidemia Cancer of kidney EtOH dependence High cholesterol HTN (hypertension) Hypertension Inhibited sex excitement Mild cognitive impairment OA (osteoarthritis) Obesity Pacemaker Functional capacity: uses cane/walker Family History: Family History (Last Reviewed 11/09/22 @ 16:10 by SEBASTIAN Edward) Mother Heart problem Social History: Social History (Last Reviewed 11/10/22 @ 03:15 by Keiry Chen RN) Living Situation History: Household Members: Spouse Housing: House Do you presently have visiting nurse or other home services: No Alcohol History Details: 1. How often do you have a drink containing alcohol?: a. Never AUDIT-C Alcohol total score: 0 Currently Displaying Signs/Symptoms of Alcohol Withdrawal: No Tobacco History: Patient Tobacco Use Status: Former Tobacco user Smoked in Last 30 Days: No Substance Use History: Use of substances other than those prescribed or required for medical reasons: No Currently Displaying Signs/Symptoms of Drug Intoxication Withdrawal: No Domestic Abuse History: Have you been hit, kicked, punched, or otherwise hurt by someone within the past year? 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 Home Medications and Allergies Current Medications: Current Medications Acetaminophen (Acetaminophen 325 Mg Tablet) 650 mg PO Q6H PRN PRN Reason: Pain, Mild (Pain Scale 1-3) Last Admin: 11/18/22 16:23 Dose: 650 mg Calcium Carbonate (Calcium Carbonate 750 Mg Tab.Chew) 750 mg PO Q6H PRN PRN Reason: Heartburn Last Admin: 11/11/22 20:47 Dose: 750 mg Diltiazem HCl (Diltiazem Hcl 60 Mg Tablet) 60 mg PO TID [facility]; Protocol Last Admin: 11/19/22 10:13 Dose: 60 mg Fluconazole (Fluconazole 100 Mg Tablet) 100 mg PO DAILY [facility] Stop: 11/22/22 23:59 Last Admin: 11/19/22 10:13 Dose: 100 mg Hydrocortisone (Hydrocortisone 2.5 % Rectal Cr 30 Gm Tube) 1 appl OK DAILY [facility] Last Admin: 11/19/22 10:13 Dose: 1 appl Hydromorphone HCl (Hydromorphone Hcl 1 Mg/Ml Syringe) 1 mg IVPUSH Q4H PRN; Protocol PRN Reason: severe pain Last Admin: 11/19/22 10:09 Dose: 1 mg Loperamide HCl (Loperamide Hcl 2 Mg Capsule) 4 mg PO Q4H PRN PRN Reason: Diarrhea Last Admin: 11/18/22 21:08 Dose: 4 mg Metoprolol Tartrate (Metoprolol Tartrate 100 Mg Tablet) 100 mg PO BID [facility]; Protocol Last Admin: 11/19/22 10:13 Dose: 100 mg Omeprazole (Omeprazole 20 Mg Capsule.Dr) 20 mg PO BID@0630,1630 [facility] Last Admin: 11/19/22 06:19 Dose: 20 mg Ondansetron HCl (Ondansetron Hcl 4 Mg/2 Ml Vial) 4 mg IVPUSH Q8H PRN PRN Reason: Nausea and Vomiting Oxycodone HCl (Oxycodone Hcl Immed Release 5 Mg Tablet) 5 mg PO Q4H PRN PRN Reason: Pain, Moderate(Pain Scale 4-6) Last Admin: 11/18/22 21:06 Dose: 5 mg Sodium Chloride (0.9 % Sodium Chloride Flush 3 Ml Syringe) 3 ml IVFLUSH QSHIFT [facility] Last Admin: 11/19/22 10:14 Dose: 3 ml Home Medications Medication Instructions Recorded Confirmed Type apixaban 5 mg tablet (Eliquis) 5 mg PO BID 06/27/22 11/09/22 History Allergies Allergy/AdvReac Type Severity Reaction Status Date / Time No Known Allergies [NKA] Allergy Mild NOT Verified 11/04/22 18:18 APPLICABLE Exam Vital signs: Vital Signs Temp 98.2 F 11/19/22 11:52 Pulse 68 11/19/22 11:52 Resp 20 11/19/22 11:52 BP 122/57 L 11/19/22 11:52 Pulse Ox 97 11/19/22 11:52 O2 Del Method Room Air 11/19/22 11:52 Intake & Output 11/18/22 11/19/22 11/19/22 18:59 06:59 18:59 Intake Total 720 / 720 Output Total 500 / 500 Balance 720 / 220 -500 / 220 Urine Output (Average ml/kg/hr) 0.47 0.47 Intake: Intake, Oral Amount 720 / 720 Output: Output, Urine Amount 500 / 500 Other: Breakfast % Eaten 25% Lunch % Eaten 0% Number of Unmeasured Voids 2 1 Number of Bowel Movements 5 1 Urine Bathroom Bedside Commode Urine Color Yellow Yellow Last Bowel Movement 11/18/22 11/19/22 11/19/22 Stool Bedside Commode Bedside Commode Stool Amount Moderate Small Stool Color Ramon Ramon Stool Consistency Mushy Watery Weight 88.904 kg BMI result Body Mass Index 28.9 - Constitutional Present: no acute distress, moderate distress - Routine HEENT Exam Head: Present: atraumatic, normal inspection - Routine Neck Exam Present: full ROM - Routine Chest/Breast/Axilla Exam Breast: Present: Normal Exam - Routine Respiratory Exam Present: decreased breath sounds, CTAB - Routine Cardiovascular Exam Cardiovascular: Present: RRR, S1, S2 - Routine Abdominal Exam Present: diminished bowel sounds, hypoactive bowel sounds, nontender - Routine Back/Spine/Pelvis Exam Back/Spine: Present: full ROM - Routine Skin Exam Present: intact, normal turgor - Routine Neurological Exam Present: alert - Detailed Neurological Exam: Coma Scale Eye Opening: Spontaneous (4) Data - Labs CBC & Chem 7: 11/19/22 07:31 11/18/22 06:32 Labs: 11/09/22 ECG 12 lead EKG Stat ECG 12 lead EKG Stat Urine Culture Routine 11/09/22 08:33 EKG Documentation DIRECTED 11/09/22 08:44 Famotidine/PF [Pepcid/PF] 20 mg IVPUSH ONCE ONE Lidocaine HCl Viscous 2 % [Xylocaine Viscous 2 % Oral Anayeli] 15 ml MUCOUS MEM ONCE ONE Magnesium Hydrox/Alum Hydrox [Maalox] 15 ml PO ONCE ONE ondansetron HCL [Zofran] 4 mg IVPUSH ONCE ONE 11/09/22 08:45 XR chest 1V Stat 0.9 % Sodium Chloride [Ns] 500 ml IV 500 mls/hr 11/09/22 09:32 Basic Metabolic Panel Stat Complete Blood Count Auto Diff Stat Creatine Kinase Total Stat Lipase Stat Liver Panel Stat Magnesium Stat SLIDE REVIEW Stat Troponin-I High Sensitivity Stat 11/09/22 10:05 Bl[address] Scan [address] CT abdomen pelvis wo IV con Stat 11/09/22 10:15 0.9 % Sodium Chloride [Ns] 1,000 ml IV 999 mls/hr 11/09/22 10:23 Add Laboratory Test Stat 11/09/22 12:17 BMP [Basic Metabolic Panel] Stat UA ClnCatch+Micro w/rflx Cult Stat 11/09/22 12:56 Mckeon catheter [Insert/maintain urinary catheter] DAILY@1000,2200 Lidocaine HCl 2 % Urojet [Xylocaine 2 % Urojet] 10 ml TOPICAL ONCE ONE 11/09/22 13:30 Dextrose 5 % [D5w] 850 ml Sodium Bicarbonate 8.4% 150 meq IV 125 mls/hr 11/09/22 13:48 Nystatin Oral Susp [Mycostatin Oral Susp] 400,000 unit PO ONCE ONE Sodium Bicarbonate 8.4% 50 meq .ROUTE .STK-MED ONE 11/09/22 13:55 Occult Blood, Stool x1 [OBSX1] Stat 11/09/22 15:21 EKG Documentation DIRECTED 11/09/22 15:37 Admission Assessment - Modified NOW 11/09/22 15:39 Low Sodium Diet 11/09/22 16:53 Fluconazole in NaCl,Iso-Osm [Diflucan] 100 mg Container,Empty 0 ml IV NOW 11/09/22 17:00 Pantoprazole Sodium [Protonix] 40 mg IVPUSH BID@0630,1630 11/09/22 17:59 Fluconazole in NaCl,Iso-Osm [Diflucan] 100 ml IV As directed 11/09/22 18:53 Metoprolol Tartrate [Lopressor] 5 mg IVPUSH ONCE ONE 11/09/22 18:55 Phenazopyridine HCL [Pyridium] 100 mg PO BIDWM 11/09/22 19:27 Creatinine Urine Stat Osmolality Urine Stat Sodium Urine Random Stat 11/09/22 20:30 Famotidine [Pepcid] 20 mg PO ONCE ONE 11/09/22 21:00 Apixaban [Eliquis] 5 mg PO BID 11/09/22 21:03 Blood Culture X2 [BC] Stat 11/09/22 21:07 BMP [Basic Metabolic Panel] Routine Hold Lav - Possible Hematology Stat Magnesium Routine Troponin-I High Sensitivity Stat 11/09/22 21:50 oxyCODONE HCl Immed Release [Roxicodone] 5 mg PO ONCE ONE 11/09/22 21:51 traZODone HCL [Desyrel] 50 mg PO ONCE ONE 11/09/22 22:50 UA ClnCatch+Micro w/rflx Cult Stat 11/10/22 01:32 0.9 % Sodium Chloride [Ns] 2,565 ml IV 2,565 mls/hr 11/10/22 07:30 0.9 % Sodium Chloride [Ns] 1,000 ml IVCONT 999 mls/hr 11/10/22 08:15 HYDROmorphone HCl [Dilaudid] 0.25 mg IVPUSH Q4H PRN 11/10/22 09:00 Apixaban [Eliquis] 2.5 mg PO BID 11/10/22 10:31 Complete Blood Count no Diff Routine 11/10/22 10:32 Basic Metabolic Panel Routine 11/10/22 11:17 0.9 % Sodium Chloride [Ns] 100 ml IV ONCE 0.9 % Sodium Chloride [Ns] 100 ml IV ONCE 11/10/22 12:14 HYDROmorphone HCl [Dilaudid] 0.25 mg IVPUSH Q2H PRN 11/10/22 12:46 PACKED CELLS [Red Blood Cells] Routine Type and Screen Routine 11/10/22 17:00 Fluconazole in NaCl,Iso-Osm [Diflucan] 50 mg Container,Empty 0 ml IV Q24H 11/10/22 19:12 Prothrombin Time INR Stat 11/10/22 22:34 BMP [Basic Metabolic Panel] Routine Hemoglobin and Hematocrit Routine 11/11/22 10:50 Basic Metabolic Panel Routine Complete Blood Count no Diff Routine Magnesium Routine 11/11/22 11:08 Phytonadione (Vit K1) [Vitamin K] 10 mg 0.9 % Sodium Chloride [Ns] 50 ml IV ONCE 11/11/22 15:30 0.9 % Sodium Chloride [Ns] 1,000 ml IVCONT 75 mls/hr 11/11/22 23:35 traZODone HCL [Desyrel] 50 mg PO ONCE ONE 11/12/22 09:00 Fluconazole [Diflucan] 50 mg PO DAILY 11/12/22 11:34 Basic Metabolic Panel Routine Complete Blood Count no Diff Routine 11/12/22 14:40 HYDROmorphone HCl [Dilaudid] 0.5 mg IVPUSH Q2H PRN 11/12/22 14:57 Loperamide HCl [Imodium] 2 mg PO Q4H PRN 11/12/22 16:09 CDiff Gene PCR Stat GI Panel Stat 11/13/22 07:10 Basic Metabolic Panel Routine Complete Blood Count no Diff Routine Prothrombin Time INR Routine 11/14/22 06:42 Complete Blood Count no Diff AM Hold Green Routine 11/14/22 09:00 polyethylene glycoL 3350 [Miralax] 17 gm PO DAILY 11/14/22 12:06 Hgb & Hct [Hemoglobin and Hematocrit] Routine 11/14/22 13:20 Clear Liquid Diet 11/15/22 05:56 Basic Metabolic Panel Routine Complete Blood Count no Diff AM 11/15/22 08:10 NPO Diet 0.9 % Sodium Chloride [Ns] 100 ml IV ONCE 11/15/22 09:25 PRBC [Red Blood Cells] Urgent Type and Screen Urgent 11/15/22 14:21 Continuous pulse oximetry CONT Vital Signs Q1H Vital Signs Q5MIN 11/15/22 14:30 Lactated Ringers [Lr] 1,000 ml IVCONT 50 mls/hr 11/15/22 15:13 Lidocaine HCl 1 % MPF [Xylocaine 1 % MPF] 5 ml .ROUTE .STK-MED ONE 11/15/22 15:41 propofoL [Diprivan] 200 mg IVPUSH .STK-MED ONE propofoL [Diprivan] 200 mg IVPUSH .STK-MED ONE 11/15/22 15:48 propofoL [Diprivan] 200 mg IVPUSH .STK-MED ONE 11/15/22 15:55 Transfer Order Routine 11/15/22 16:10 HYDROmorphone HCl [Dilaudid] 0.5 mg .ROUTE .STK-MED ONE 11/15/22 16:32 Acetaminophen [Tylenol] 325 mg .ROUTE .STK-MED ONE 11/15/22 17:06 Clear Liquid Diet 11/15/22 20:32 ECG 12 lead EKG Routine 11/16/22 06:55 Complete Blood Count no Diff AM Hold Green Routine 11/16/22 09:00 amLODIPine Besylate [Norvasc] 5 mg PO DAILY 11/17/22 CT angio abdomen pelvis Routine 11/17/22 06:45 dilTIAZem HCL [Cardizem] 10 mg IVPUSH STAT STA 11/17/22 07:02 Complete Blood Count no Diff AM Hold Green Routine 11/17/22 08:40 dilTIAZem HCL [Cardizem] 15 mg IVPUSH STAT STA 11/17/22 11:31 iohexoL 350 MG/ML 100 ML [Omnipaque 350 MG/ML] 100 ml IV ONCE ONE 11/17/22 14:23 HYDROmorphone HCl [Dilaudid] 1 mg IVPUSH Q4H PRN 11/18/22 CXR [XR chest 1V] Stat 11/18/22 06:32 Basic Metabolic Panel Routine Complete Blood Count no Diff AM 11/18/22 17:45 CDiff Gene PCR Routine 11/18/22 21:45 UA w Microscopic Stat 11/19/22 07:31 Complete Blood Count Man Dif Stat Hold Gold Stat Laboratory Last Values WBC 2.5 X10*3/uL (4.8-10.8) L 11/19/22 07:31 RBC 2.98 X10*6/uL (4.60-5.80) L 11/19/22 07:31 Hgb 8.4 g/dl (14.0-18.0) L 11/19/22 07:31 Hct 26.8 % (42.0-52.0) L 11/19/22 07:31 MCV 89.9 fL (80.0-98.0) 11/19/22 07:31 MCH 28.2 pg (27.0-33.0) 11/19/22 07:31 MCHC 31.3 g/dl (31.0-36.0) 11/19/22 07:31 RDW 23.9 % (11.0-16.0) H 11/19/22 07:31 Plt Count 92 X10*3/uL (160-400) L 11/19/22 07:31 MPV 11.3 fL (9.4-12.4) 11/19/22 07:31 Immature Gran % (Auto) Cancelled 11/19/22 07:31 Neut % (Auto) Cancelled 11/19/22 07:31 Lymph % (Auto) Cancelled 11/19/22 07:31 [place] % (Auto) Cancelled 11/19/22 07:31 Eos % (Auto) Cancelled 11/19/22 07:31 Baso % (Auto) Cancelled 11/19/22 07:31 Lymph # (Auto) Cancelled 11/19/22 07:31 [place] # (Auto) Cancelled 11/19/22 07:31 Eos # (Auto) Cancelled 11/19/22 07:31 Baso # (Auto) Cancelled 11/19/22 07:31 Abs Immat Gran (auto) Cancelled 11/19/22 07:31 Absolute Neuts (auto) Cancelled 11/19/22 07:31 Absolute Nucleated RBC 0.000 X10*3/uL (0.0-0.012) 11/19/22 07:31 Nucleated RBC % (auto) 0.0 /100WBC (0.0-0.2) 11/19/22 07:31 Neutrophils % (Manual) 43 % (45-73) L 11/19/22 07:31 Band Neutrophils % 17 % (3-5) H 11/19/22 07:31 Lymphocytes % (Manual) 16 % (20-40) L 11/19/22 07:31 Atypical Lymphs % (Man) 3 % (0-6) 11/19/22 07:31 Monocytes % (Manual) 7 % (2-11) 11/19/22 07:31 Eosinophils % (Manual) 9 % (0-4) H 11/19/22 07:31 Basophils % (Manual) 1 % (0-2) 11/19/22 07:31 Metamyelocytes % 4 % 11/19/22 07:31 Abs Neuts (Manual) 1.5 X10*3/uL (2.0-8.3) L 11/19/22 07:31 Lymphocytes # (Manual) 0.4 X10*3/uL (1.2-4.9) L 11/19/22 07:31 Atyp Lymphs # (Manual) 0.1 x10*3/uL 11/19/22 07:31 Monocytes # (Manual) 0.2 X10*3/uL (0.1-1.2) 11/19/22 07:31 Eosinophils # (Manual) 0.2 X10*3/uL (0.0-0.4) 11/19/22 07:31 Metamyelocytes # 0.1 X10*3/uL 11/19/22 07:31 Dohle Bodies PRESENT 11/19/22 07:31 Platelet Estimate DECREASED (NORMAL) 11/19/22 07:31 Plt Morphology Comment NORMAL 11/19/22 07:31 RBC Morphology NOTED 11/19/22 07:31 Polychromasia 1+ (0-2) /OIF 11/19/22 07:31 Macrocytosis 1+ (5-14) /OIF 11/19/22 07:31 Spherocytes 3+ (>5) /OIF 11/19/22 07:31 [place] Cells 1+ (0-2) /OIF 11/19/22 07:31 Schistocytes 1+ (0-2) /OIF 11/19/22 07:31 Smear Tech's Comments VERIFIED 11/09/22 09:32 Hold Purple Top SEE NOTE 11/09/22 21:07 PT 15.9 SEC (11.1-13.3) H D 11/13/22 07:10 INR 1.3 (0.9-1.1) H 11/13/22 07:10 Sodium 142 mmol/L (135-145) 11/18/22 06:32 Potassium 4.4 mmol/L (3.3-5.1) D 11/18/22 06:32 Chloride 108 mmol/L (96-108) 11/18/22 06:32 Carbon Dioxide 25 mmol/L (22-29) 11/18/22 06:32 Anion Gap 13 (12-20) 11/18/22 06:32 BUN 14 mg/dL (9-16) 11/18/22 06:32 Creatinine 1.08 mg/dL (0.5-1.4) 11/18/22 06:32 Estim Creat Clear Calc 64.1 11/18/22 06:32 Estimated GFR > 60 11/18/22 06:32 Random Glucose 108 mg/dL (60-115) 11/18/22 06:32 Calcium 7.3 mg/dL (8.4-10.2) L 11/18/22 06:32 Magnesium 2.0 mg/dL (1.6-2.6) 11/11/22 10:50 Total Bilirubin 0.6 mg/dL (0.0-1.0) 11/09/22 09:32 Direct Bilirubin 0.2 mg/dL (0.0-0.5) 11/09/22 09:32 AST 30 U/L (5-37) 11/09/22 09:32 ALT 8 U/L (0-40) 11/09/22 09:32 Alkaline Phosphatase 100 U/L (39-117) 11/09/22 09:32 Total Creatine Kinase 128 U/L (38-174) 11/09/22 09:32 Troponin I High Sens 8.4 ng/L (<3.5-35.0) 11/09/22 21:07 Total Protein 7.6 g/dL (6.5-8.0) 11/09/22 09:32 Albumin 3.9 g/dL (3.5-5.0) 11/09/22 09:32 Lipase 76 U/L (8-78) 11/09/22 09:32 Hold Green Top See Note 11/17/22 07:02 Hold Yellow Top See Note 11/19/22 07:31 Urine Color Dark Yellow 11/18/22 21:45 Urine Appearance Clear 11/18/22 21:45 Urine pH 5.5 (5.0-9.0) 11/18/22 21:45 Ur Specific Hazel 1.020 (1.005-1.025) 11/18/22 21:45 Urine Protein 30 (1+) mg/dL (Neg-Trace) H 11/18/22 21:45 Urine Glucose (UA) Negative mg/dL (Negative) 11/18/22 21:45 Urine Ketones Negative mg/dL (Negative) 11/18/22 21:45 Urine Blood Negative (Negative) 11/18/22 21:45 Urine Nitrite Negative (Negative) 11/18/22 21:45 Ur Leukocyte Esterase Negative (Negative) 11/18/22 21:45 Urine RBC 0-2 /HPF (0-2) 11/18/22 21:45 Urine WBC 0-5 /HPF (0-5) 11/18/22 21:45 Ur Squamous Epith Cells 6-10 /HPF (0-2) 11/18/22 21:45 Urine Bacteria None Seen (None Seen) 11/18/22 21:45 Hyaline Casts 3-5 /LPF (0-2) 11/18/22 21:45 Urine Osmolality 368 mosm/kg (373-1093) L 11/09/22 19:27 Ur Random Sodium < 20.0 mmol/L 11/09/22 19:27 Urine Creatinine 113.58 mg/dL 11/09/22 19:27 Stool Occult Blood NEGATIVE (NEGATIVE) 11/09/22 13:55 Stl C. cayetanensis PCR Not Detected (Not Detect.) 11/12/22 16:09 Stool Rotavirus A PCR Not Detected (Not Detect.) 11/12/22 16:09 Stl Adenov F 40/41 PCR Not Detected (Not Detect.) 11/12/22 16:09 Stool Astrovirus (PCR) Not Detected (Not Detect.) 11/12/22 16:09 Stool Campylobacter PCR Not Detected (Not Detect.) 11/12/22 16:09 Stool Cryptosporidium PCR Not Detected (Not Detect.) 11/12/22 16:09 Stl Sh Tox Pr E STEC PCR Not Detected (Not Detect.) 11/12/22 16:09 Stool E coli O157 PCR Not applicable (Not Detect.) 11/12/22 16:09 Stl Enterotoxigenic E PCR Not Detected (Not Detect.) 11/12/22 16:09 Stool EPEC (PCR) Not Detected (Not Detect.) 11/12/22 16:09 Stool EAEC (PCR) Not Detected (Not Detect.) 11/12/22 16:09 Stl E. histolytica PCR Not Detected (Not Detect.) 11/12/22 16:09 Stool Giardia Lamblia PCR Not Detected (Not Detect.) 11/12/22 16:09 Stl P. shigelloides PCR Not Detected (Not Detect.) 11/12/22 16:09 Stool Salmonella PCR Not Detected (Not Detect.) 11/12/22 16:09 Stool Sapovirus (PCR) Not Detected (Not Detect.) 11/12/22 16:09 Stl Shigella/EIEC PCR Not Detected (Not Detect.) 11/12/22 16:09 St Y.enterocolitica PCR Not Detected (Not Detect.) 11/12/22 16:09 Stool Vibrio (PCR) Not Detected (Not Detect.) 11/12/22 16:09 Stl Vibrio cholerae PCR Not Detected (Not Detect.) 11/12/22 16:09 Stl Norovirus GI/GII PCR Not Detected (Not Detect.) 11/12/22 16:09 C. difficile Tox B Gene NEGATIVE (Negative) 11/18/22 17:45 Blood Type A Positive 11/15/22 09:25 Antibody Screen NEGATIVE 11/15/22 09:25 Crossmatch See Detail 11/15/22 09:25 - Imaging Radiologist's impression: ITS Impressions Chest X-Ray 11/09/22 09:39 IMPRESSION: No acute intrathoracic disease. Borderline cardiac enlargement. New pacemaker in place. Abdomen/Pelvis CT 11/09/22 10:28 IMPRESSION: 1.5 cm contour abnormality of the left kidney in the lateral midpole remains concerning for underlying mass. Further evaluation/characterization with MR imaging may be considered. Possible filling defect in the rectosigmoid colon. Advise correlation with direct visualization. Abdomen/Pelvis CTA 11/17/22 11:29 IMPRESSION: 1. Hyperemia of the rectum. No definite evidence of extravasation. 2. 1.5 cm enhancing lesion in the left mid pole kidney suspicious for renal mass. Fleischner guidelines were followed. Chest X-Ray 11/18/22 16:21 IMPRESSION: 1. Similar-appearing chronic interstitial lung markings. 2. Left basilar atelectasis. Assessment and Plan Patient Active problem list reviewed?: Yes (1) Rectal carcinoma Status: Acute Assessment and plan: This is a 76-year-old gentleman, who had presented after syncopal episode, back on June 19. He was noted to be anemic. He received a unit of blood. Colonoscopy from 06/21 revealed: A rectal mass at 8 - 10 cm from anal verge, with irregular hard edges and measured about 6-8 cm. Biopsies revealed: Superficial fragments of intramucosal adenocarcinoma at least, with foci suspicious of submucosal invasion. Immunostains pending. MLH1: Preserved. MSH2: Preserved. MSH6: Focally preserved. PMS to: Preserved. Results negative for mismatch repair defect/Costello syndrome related tumor. CT scan of the abdomen pelvis from 07/06 revealed: Focal dilatation of proximal pancreatic duct likely confluence of dorsal and ventral pancreatic duct which have direct entry into the duodenum. A intraductal cystic neoplasm such as IPMN cannot be excluded. Recommend MRI pancreas with and without contrast. The CBD opens separately into the duodenum. The distal and mid pancreatic duct is normal. The pancreas itself is normal. The CBD is normal caliber. No pancreatic lesions seen. Two complex partially exophytic cysts in the midpole left kidney with no hydronephrosis. Initial CEA: 35.50. CA 19-9: <3. l proceeded with further staging workup. He had an MRI of the pelvis at [facility]. It revealed: A 4 cm intraluminal mass in the middle and upper rectum about 7.5 cm from the anal verge with no extension into mesorectal facie or surrounding organs. No significant perirectal or pelvic adenopathy. CEA August 24:56. CEA 09/29:100. I proceeded with a PET scan, to look for the extent of the disease. Intensely hypermetabolic lobulated rectal mass, consistent with known malignancy. No FDG avid local or distant metastatic disease. Mild heterogenous FDG uptake in the prostate gland is of nonspecific correlation with serum PSA levels recommended. He was deemed a candidate for upfront combined modality therapy with radiation along with chemotherapy, with Xeloda. He started radiation and Xeloda on 10/12. He had labs drawn at [facility] on Sunday. Hemoglobin of 6.9. He was given 2 units of packed RBCs. He had labs checked 10/26: WBC 9, Hemoglobin 7.8, HCT. 25.4, PLt 205. He has now been admitted to the hospital with GI upset, nausea and heartburn. His kidney function has worsened. Likely dehydrated. Reduced oral intake. He has been noted to be significantly anemic. Hemoglobin today is down to 6.6. His dyspepsia is likely related to the chemotherapy: Xeloda. In addition, he has been diagnosed with oral and esophageal candidiasis. PLAN: The Xeloda is on hold. He is being treated with IV proton pump inhibitor. He is on IV fluconazole for the Cristal esophagitis. He will receive 2 units of blood. Will continue supportive care including IV hydration. The radiation will be resumed once he gets out of the hospital. Thank you, Cc: He remais stable with a chief complaint today of leg pain. - Time Spent With Patient Time Spent with Patient (in minutes): 15
[2022-11-19 15:18] VITALS: BP 126/58; PULSE 60; RESP 18; TEMP 36.6; O2SAT 97
--- NOTE | 2022-11-19 15:26 | HO.PM.IMPN ---
Subjective Subjective Date of Service: 11/19/22 Interval History: continues to complain of rectal tenderness with minimal bleeding. Fever to 101.3 this afternoon Review of Systems still with loose stools. Pain control poor Physical Exam Vital Signs: Vital Signs: Last Vital Signs Temp 97.8 F 11/19/22 15:18 Pulse 60 11/19/22 15:18 Resp 18 11/19/22 15:18 BP 126/58 L 11/19/22 15:18 Pulse Ox 97 11/19/22 15:18 O2 Del Method Room Air 11/19/22 15:18 BMI result Body Mass Index 28.9 Const: Other: awake alert no acute distress Resp: Other: clear to auscultation bilaterally no rales rhonchi or wheezes Cardio: Other: no S4; positive S1-S2; no S3 murmurs rubs or gallops GI: Other: soft nontender nondistended normoactive caroline Extrem: Other: no edema bilaterally Objective Data Active Medications Acetaminophen (Acetaminophen 325 Mg Tablet) 650 mg PO Q6H PRN PRN Reason: Pain, Mild (Pain Scale 1-3) Last Admin: 11/18/22 16:23 Dose: 650 mg Documented By: DES Calcium Carbonate (Calcium Carbonate 750 Mg Tab.Chew) 750 mg PO Q6H PRN PRN Reason: Heartburn Last Admin: 11/11/22 20:47 Dose: 750 mg Documented By: MITZI Diltiazem HCl (Diltiazem Hcl 60 Mg Tablet) 60 mg PO TID [facility]; Protocol Last Admin: 11/19/22 14:34 Dose: 60 mg Documented By: DES Fluconazole (Fluconazole 100 Mg Tablet) 100 mg PO DAILY [facility] Stop: 11/22/22 23:59 Last Admin: 11/19/22 10:13 Dose: 100 mg Documented By: DES Hydrocortisone (Hydrocortisone 2.5 % Rectal Cr 30 Gm Tube) 1 appl [place] DAILY [facility] Last Admin: 11/19/22 10:13 Dose: 1 appl Documented By: DES Hydromorphone HCl (Hydromorphone Hcl 1 Mg/Ml Syringe) 1 mg IVPUSH Q4H PRN; Protocol PRN Reason: severe pain Last Admin: 11/19/22 14:36 Dose: 1 mg Documented By: DES Loperamide HCl (Loperamide Hcl 2 Mg Capsule) 4 mg PO Q4H PRN PRN Reason: Diarrhea Last Admin: 11/18/22 21:08 Dose: 4 mg Documented By: ARASH Metoprolol Tartrate (Metoprolol Tartrate 100 Mg Tablet) 100 mg PO BID [facility]; Protocol Last Admin: 11/19/22 10:13 Dose: 100 mg Documented By: DES Omeprazole (Omeprazole 20 Mg Capsule.Dr) 20 mg PO BID@0630,1630 [facility] Last Admin: 11/19/22 06:19 Dose: 20 mg Documented By: ARASH Ondansetron HCl (Ondansetron Hcl 4 Mg/2 Ml Vial) 4 mg IVPUSH Q8H PRN PRN Reason: Nausea and Vomiting Oxycodone HCl (Oxycodone Hcl Immed Release 5 Mg Tablet) 10 mg PO Q4H PRN PRN Reason: Pain, Moderate(Pain Scale 4-6) Sodium Chloride (0.9 % Sodium Chloride Flush 3 Ml Syringe) 3 ml IVFLUSH [facility] Last Admin: 11/19/22 14:35 Dose: 3 ml Documented By: DES Labs 11/19/22 07:31 11/18/22 06:32 Labs: Laboratory Results - last 24 hr 11/18/22 11/18/22 11/19/22 17:45 21:45 07:31 MCV 89.9 MCH 28.2 MCHC 31.3 RDW 23.9 H Plt Count 92 L MPV 11.3 Immature Gran % (Auto) Cancelled Neut % (Auto) Cancelled Lymph % (Auto) Cancelled Kane % (Auto) Cancelled Eos % (Auto) Cancelled Baso % (Auto) Cancelled Lymph # (Auto) Cancelled Kane # (Auto) Cancelled Eos # (Auto) Cancelled Baso # (Auto) Cancelled Abs Immat Gran (auto) Cancelled Absolute Neuts (auto) Cancelled Absolute Nucleated RBC 0.000 Nucleated RBC % (auto) 0.0 Neutrophils % (Manual) 43 L Band Neutrophils % 17 H Lymphocytes % (Manual) 16 L Atypical Lymphs % (Man) 3 Monocytes % (Manual) 7 Eosinophils % (Manual) 9 H Basophils % (Manual) 1 Metamyelocytes % 4 Abs Neuts (Manual) 1.5 L Lymphocytes # (Manual) 0.4 L Atyp Lymphs # (Manual) 0.1 Monocytes # (Manual) 0.2 Eosinophils # (Manual) 0.2 Metamyelocytes # 0.1 Dohle Bodies PRESENT Platelet Estimate DECREASED Plt Morphology Comment NORMAL RBC Morphology NOTED Polychromasia 1+ (0-2) Macrocytosis 1+ (5-14) Spherocytes 3+ (>5) Escalon Cells 1+ (0-2) Schistocytes 1+ (0-2) Hold Yellow Top See Note Urine Color Dark Yellow Urine Appearance Clear Urine pH 5.5 Ur Specific Austin 1.020 Urine Protein 30 (1+) H Urine Glucose (UA) Negative Urine Ketones Negative Urine Blood Negative Urine Nitrite Negative Ur Leukocyte Esterase Negative Urine RBC 0-2 Urine WBC 0-5 Ur Squamous Epith Cells 6-10 Urine Bacteria None Seen Hyaline Casts 3-5 C. difficile Tox B Gene NEGATIVE Assessment and Plan (1) Fever: Status: Acute (2) Rectal carcinoma: Status: Acute Plan 77yo M with AF on apixaban, SSS s/p PPM, HTN, rectal CA on chemotherapy/XRT presenting with burning epigastric pain with dysphagia, anorexia, admitted for ANIL with severe acidemia, developed LGIB Paroxysmal AFib with RVR patient noted to be in rapid ventricular rate to 160 with chest palpitation, patient received 2 dosages of IV Cardizem heart rate subsequently improved to 60s patient started on Cardizem 60 mg t.i.d. 1.Fever - chest x-ray in urine negative for acute cause - blood cultures pending; will hold antibiotics pending culture 2.ANIL/metabolic acidosis - normalized with volume repletion -follow renals/divalents 3.Acute on chronic blood loss anemia due to acute LGIB -transfused 3u PRBCs since admit -continue to hold Eliquis;, follow INR -follow daily CBC 4.Malignant neoplasm of rectum - continues to have multiple watery stools - will check C diff - switch Imodium to Lomotil - continue to hold Xeloda 5.Paroxysmal AF with RVR - acceptable rate control - continue to hold Eliquis - adjust therapies as indicated SCDs Full Code In my clinical judgment, the patient requires continued inpatient hospitalization for the following reasons: LGIB, anemia need further workup an expert opinion if continue to bleed Time Spent With Patient Time: Total time managing care of this patient today ____ minutes. Quality Stroke Does the patient have a stroke diagnosis?: No VTE Prior VTE?: No VTE Risk Level:: Medical - moderate - high VTE Device Contraindication: Treatment Not Indicated VTE Drug Contraindication: N/A - Med Ordered
[2022-11-19 19:18] VITALS: BP 137/89; PULSE 89; RESP 17; TEMP 37; O2SAT 98
[2022-11-19] MEDS: ondansetron HCL 4 MG/2 ML VIAL IVPUSH (21:03)
[2022-11-19 23:20] VITALS: BP 138/63; PULSE 70; RESP 18; TEMP 36.7; O2SAT 97
[2022-11-20] VITALS (7 sets, daily range): BP systolic 118–137; BP diastolic 57–76; PULSE 60–98; RESP 16–22; TEMP 36.2–37.1; O2SAT 92–98
[2022-11-20] MEDS: Calcium Carbonate 750 MG TAB.CHEW PO (01:48)
--- NOTE | 2022-11-20 12:01 | PM.HEMONCPN ---
Medical Summary - Medical Summary Date of Service: 11/20/22 Primary Care Provider: Joao Duncan Medical Summary: DIAGNOSIS: RECTAL CARCINOMA. ON CHEMORADIATION. ANEMIA. GI DISTRESS. Interval History Interval history: Mehran Samuel is a 77 year old gentleman with a recent diagnosis of rectal carcinoma. Patient has been on combined modality therapy with chemo and radiation. He presented to the hospital yesterday to the ED with?severe epigastric pain. Patient states symptoms began when he awoke at 02:00 to use the bathroom. Patient reports having severe burning pain in his epigastric region that radiated up his throat and also to his right side. Patient felt nauseous, but could not vomit.He said that it felt like acid reflux only much worse. He has been experiencing some minor pain when swallowing and also difficulty with swelling for the past 3-4 days. He started chemotherapy and radiation at the beginning of this month for rectal cancer. He has had decreased appetite with reduced p.o. intake since starting treatment, he has been eating and drinking very little the past few days. Has also noticed decreased urine output. Denies diarrhea, but states stool is softer than usual. He denies chest pressure, palpitations. No fever, chills, abdominal pain. Here he was afebrile and hypotensive as low as 97/50. Labs were significant for stable H&H of 9.8/29.9, initial sodium 133, potassium 5.3, bicarb is low as 8, BUN 126, creatinine 5.21. No leukocytosis. Troponin 6.7. Hepatic function baseline. UA with proteinuria of 30, negative for UTI. CXR showed no acute intrathoracic disease. CT?of abdomen/pelvis a 1.5 cm contour abnormality in left kidney in the lateral midpole remains concerning for underlying mass, suggest consider MRI imaging, and also found possible filling deficit in the rectosigmoid colon. EKG showed atrial paced rhythm without evidence of ST elevations or depressions and QTc 416. Pt was treated with GI cocktail, IVF, and placed on a sodium bicarb drip. Pt was admitted to the hospital for treatment of ANIL in the setting of recently starting chemo and radiation with likely GI toxicity secondary to chemotherapy. Review of Systems Review of Systems: Epigastric pain radiating to the throat and right-sided chest Nausea, no vomiting Dysphagia, odynophagia Generalized weakness Denies chest pressure, palpitations No fever, chills Denies abdominal pain No diarrhea, but stool softer than normal <SEBASTIAN Edward - Last Filed: 11/09/22 19:11> [facility] Medical History: Medical History: PMH significant for?AFib on Eliquis, sick sinus syndrome with pacemaker in place, HTN, Rectal cancer currently on oral chemotherapy and receiving radiation Aftercare following left shoulder joint replacement surgery Pacemaker OA (osteoarthritis) Borderline hyperlipidemia Obesity HTN (hypertension) EtOH dependence Mild cognitive impairment Inhibited sex excitement Atrial fibrillation Cancer of kidney High cholesterol Hypertension : Family History: Review of Systems - ENT Reports other - Cardiovascular Reports fast heart rate - Respiratory Reports dyspnea on exertion - Gastrointestinal Reports abdominal pain - Genitourinary Genitourinary: Reports urinary urgency - Musculoskeletal Reports radiating pain into limb - Neurologic Reports system reviewed and no additional complaints, except as documented [facility] Medical History: Medical History (Last Reviewed 11/10/22 @ 09:15 by Page Livingston PT) Aftercare following left shoulder joint replacement surgery Atrial fibrillation Borderline hyperlipidemia Cancer of kidney EtOH dependence High cholesterol HTN (hypertension) Hypertension Inhibited sex excitement Mild cognitive impairment OA (osteoarthritis) Obesity Pacemaker Functional capacity: uses cane/walker Family History: Family History (Last Reviewed 11/09/22 @ 16:10 by SEBASTIAN Edward) Mother Heart problem Social History: Social History (Last Reviewed 11/10/22 @ 03:15 by Keiry Chen RN) Living Situation History: Household Members: Spouse Housing: House Do you presently have visiting nurse or other home services: No Alcohol History Details: 1. How often do you have a drink containing alcohol?: a. Never AUDIT-C Alcohol total score: 0 Currently Displaying Signs/Symptoms of Alcohol Withdrawal: No Tobacco History: Patient Tobacco Use Status: Former Tobacco user Smoked in Last 30 Days: No Substance Use History: Use of substances other than those prescribed or required for medical reasons: No Currently Displaying Signs/Symptoms of Drug Intoxication Withdrawal: No Domestic Abuse History: Have you been hit, kicked, punched, or otherwise hurt by someone within the past year? 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 Home Medications and Allergies Current Medications: Current Medications Acetaminophen (Acetaminophen 325 Mg Tablet) 650 mg PO Q6H PRN PRN Reason: Pain, Mild (Pain Scale 1-3) Last Admin: 11/18/22 16:23 Dose: 650 mg Calcium Carbonate (Calcium Carbonate 750 Mg Tab.Chew) 750 mg PO Q6H PRN PRN Reason: Heartburn Last Admin: 11/20/22 01:48 Dose: 750 mg Diltiazem HCl (Diltiazem Hcl 60 Mg Tablet) 60 mg PO TID [facility]; Protocol Last Admin: 11/20/22 09:36 Dose: 60 mg Fluconazole (Fluconazole 100 Mg Tablet) 100 mg PO DAILY [facility] Stop: 11/22/22 23:59 Last Admin: 11/20/22 09:37 Dose: 100 mg Hydrocortisone (Hydrocortisone 2.5 % Rectal Cr 30 Gm Tube) 1 appl [place] DAILY [facility] Last Admin: 11/20/22 09:42 Dose: 1 appl Hydromorphone HCl (Hydromorphone Hcl 1 Mg/Ml Syringe) 1 mg IVPUSH Q4H PRN; Protocol PRN Reason: severe pain Last Admin: 11/20/22 09:41 Dose: 1 mg Loperamide HCl (Loperamide Hcl 2 Mg Capsule) 4 mg PO Q4H PRN PRN Reason: Diarrhea Last Admin: 11/19/22 21:02 Dose: 4 mg Metoprolol Tartrate (Metoprolol Tartrate 100 Mg Tablet) 100 mg PO BID [facility]; Protocol Last Admin: 11/20/22 09:36 Dose: 100 mg Omeprazole (Omeprazole 20 Mg Capsule.Dr) 20 mg PO BID@0630,1630 [facility] Last Admin: 11/20/22 06:09 Dose: 20 mg Ondansetron HCl (Ondansetron Hcl 4 Mg/2 Ml Vial) 4 mg IVPUSH Q8H PRN PRN Reason: Nausea and Vomiting Last Admin: 11/19/22 21:03 Dose: 4 mg Oxycodone HCl (Oxycodone Hcl Immed Release 5 Mg Tablet) 10 mg PO Q4H PRN PRN Reason: Pain, Moderate(Pain Scale 4-6) Sodium Chloride (0.9 % Sodium Chloride Flush 3 Ml Syringe) [facility] Last Admin: 11/20/22 09:43 Dose: 3 ml Home Medications Medication Instructions Recorded Confirmed Type apixaban 5 mg tablet (Eliquis) 5 mg PO BID 06/27/22 11/09/22 History Allergies Allergy/AdvReac Type Severity Reaction Status Date / Time No Known Allergies [NKA] Allergy Mild NOT Verified 11/04/22 18:18 APPLICABLE Exam Vital signs: Vital Signs Temp 98.2 F 11/20/22 08:00 Pulse 68 11/20/22 08:00 Resp 16 11/20/22 08:00 BP 137/58 L 11/20/22 08:00 Pulse Ox 94 11/20/22 08:00 O2 Del Method Room Air 11/20/22 08:00 Intake & Output 11/19/22 11/20/22 11/20/22 18:59 06:59 18:59 Intake Total 180 / 420 240 / 420 Output Total 300 / 300 Balance 180 / 120 -60 / 120 Urine Output (Average ml/kg/hr) 0.28 0.28 Intake: Intake, Oral Amount 180 / 420 240 / 420 Output: Output, Urine Amount 300 / 300 Other: Breakfast % Eaten 75% Lunch % Eaten 100% Number of Bowel Movements 1 Number of Unmeasured Emesis 2 Episodes Urine Urinal Urine Color Yellow Last Bowel Movement 11/19/22 11/19/22 11/20/22 Stool Bedside Commode Stool Amount Scant Stool Color Ramon Stool Consistency Watery Emesis Color Undigested Food Weight 88.904 kg BMI result Body Mass Index 28.9 - Constitutional Present: no acute distress, moderate distress - Routine HEENT Exam Head: Present: atraumatic, normal inspection - Routine Neck Exam Present: full ROM - Routine Respiratory Exam Present: decreased breath sounds, CTAB - Routine Cardiovascular Exam Cardiovascular: Present: RRR, S1, S2 - Routine Abdominal Exam Present: diminished bowel sounds, hypoactive bowel sounds, nontender - Routine Back/Spine/Pelvis Exam Back/Spine: Present: full ROM - Routine Skin Exam Present: intact, normal turgor - Routine Neurological Exam Present: alert - Detailed Neurological Exam: Coma Scale Eye Opening: Spontaneous (4) Data - Labs CBC & Chem 7: 11/19/22 07:31 11/18/22 06:32 - Imaging Radiologist's impression: ITS Impressions Chest X-Ray 11/09/22 09:39 IMPRESSION: No acute intrathoracic disease. Borderline cardiac enlargement. New pacemaker in place. Abdomen/Pelvis CT 11/09/22 10:28 IMPRESSION: 1.5 cm contour abnormality of the left kidney in the lateral midpole remains concerning for underlying mass. Further evaluation/characterization with MR imaging may be considered. Possible filling defect in the rectosigmoid colon. Advise correlation with direct visualization. Abdomen/Pelvis CTA 11/17/22 11:29 IMPRESSION: 1. Hyperemia of the rectum. No definite evidence of extravasation. 2. 1.5 cm enhancing lesion in the left mid pole kidney suspicious for renal mass. Fleischner guidelines were followed. Chest X-Ray 11/18/22 16:21 IMPRESSION: 1. Similar-appearing chronic interstitial lung markings. 2. Left basilar atelectasis. Assessment and Plan Patient Active problem list reviewed?: Yes (1) Rectal carcinoma Status: Acute Assessment and plan: This is a 76-year-old gentleman, who had presented after syncopal episode, back on June 19. He was noted to be anemic. He received a unit of blood. Colonoscopy from 06/21 revealed: A rectal mass at 8 - 10 cm from anal verge, with irregular hard edges and measured about 6-8 cm. Biopsies revealed: Superficial fragments of intramucosal adenocarcinoma at least, with foci suspicious of submucosal invasion. Immunostains pending. MLH1: Preserved. MSH2: Preserved. MSH6: Focally preserved. PMS to: Preserved. Results negative for mismatch repair defect/Costello syndrome related tumor. CT scan of the abdomen pelvis from 07/06 revealed: Focal dilatation of proximal pancreatic duct likely confluence of dorsal and ventral pancreatic duct which have direct entry into the duodenum. A intraductal cystic neoplasm such as IPMN cannot be excluded. Recommend MRI pancreas with and without contrast. The CBD opens separately into the duodenum. The distal and mid pancreatic duct is normal. The pancreas itself is normal. The CBD is normal caliber. No pancreatic lesions seen. Two complex partially exophytic cysts in the midpole left kidney with no hydronephrosis. Initial CEA: 35.50. CA 19-9: <3. l proceeded with further staging workup. He had an MRI of the pelvis at [facility]. It revealed: A 4 cm intraluminal mass in the middle and upper rectum about 7.5 cm from the anal verge with no extension into mesorectal facie or surrounding organs. No significant perirectal or pelvic adenopathy. CEA August 24:56. CEA 09/29:100. I proceeded with a PET scan, to look for the extent of the disease. Intensely hypermetabolic lobulated rectal mass, consistent with known malignancy. No FDG avid local or distant metastatic disease. Mild heterogenous FDG uptake in the prostate gland is of nonspecific correlation with serum PSA levels recommended. He was deemed a candidate for upfront combined modality therapy with radiation along with chemotherapy, with Xeloda. He started radiation and Xeloda on 10/12. He had labs drawn at [facility] on Sunday. Hemoglobin of 6.9. He was given 2 units of packed RBCs. He had labs checked 10/26: WBC 9, Hemoglobin 7.8, HCT. 25.4, PLt 205. He has now been admitted to the hospital with GI upset, nausea and heartburn. His kidney function has worsened. Likely dehydrated. Reduced oral intake. He has been noted to be significantly anemic. Hemoglobin today is down to 6.6. His dyspepsia is likely related to the chemotherapy: Xeloda. In addition, he has been diagnosed with oral and esophageal candidiasis. PLAN: The Xeloda is on hold. He is being treated with IV proton pump inhibitor. He is on IV fluconazole for the Cristal esophagitis. He will receive 2 units of blood. Will continue supportive care including IV hydration. The radiation will be resumed once he gets out of the hospital. Thank you, Cc: He remais stable with a chief complaint today of leg pain. - Time Spent With Patient Time Spent with Patient (in minutes): 15
--- NOTE | 2022-11-20 13:47 | HO.PM.IMPN ---
Subjective Subjective Date of Service: 11/20/22 Interval History: no acute changes overnight. Pain control adequate. No major rectal bleed Review of Systems still with loose stools. Pain control poor Physical Exam Vital Signs: Vital Signs: Last Vital Signs Temp 98.3 F 11/20/22 12:00 Pulse 74 11/20/22 12:00 Resp 16 11/20/22 12:00 BP 121/57 L 11/20/22 12:00 Pulse Ox 98 11/20/22 12:00 O2 Del Method Room Air 11/20/22 12:00 BMI result Body Mass Index 28.9 Const: Other: awake alert no acute distress Resp: Other: clear to auscultation bilaterally no rales rhonchi or wheezes Cardio: Other: no S4; positive S1-S2; no S3 murmurs rubs or gallops GI: Other: soft nontender nondistended normoactive caroline Extrem: Other: no edema bilaterally Objective Data Active Medications Acetaminophen (Acetaminophen 325 Mg Tablet) 650 mg PO Q6H PRN PRN Reason: Pain, Mild (Pain Scale 1-3) Last Admin: 11/18/22 16:23 Dose: 650 mg Documented By: DES Calcium Carbonate (Calcium Carbonate 750 Mg Tab.Chew) 750 mg PO Q6H PRN PRN Reason: Heartburn Last Admin: 11/20/22 01:48 Dose: 750 mg Documented By: OSCAR Diltiazem HCl (Diltiazem Hcl 60 Mg Tablet) 60 mg PO TID [facility]; Protocol Last Admin: 11/20/22 09:36 Dose: 60 mg Documented By: SHANNAN Fluconazole (Fluconazole 100 Mg Tablet) 100 mg PO DAILY [facility] Stop: 11/22/22 23:59 Last Admin: 11/20/22 09:37 Dose: 100 mg Documented By: SHANNAN Hydrocortisone (Hydrocortisone 2.5 % Rectal Cr 30 Gm Tube) 1 appl IN DAILY [facility] Last Admin: 11/20/22 09:42 Dose: 1 appl Documented By: SHANNAN Hydromorphone HCl (Hydromorphone Hcl 1 Mg/Ml Syringe) 1 mg IVPUSH Q4H PRN; Protocol PRN Reason: severe pain Last Admin: 11/20/22 09:41 Dose: 1 mg Documented By: SHANNAN Loperamide HCl (Loperamide Hcl 2 Mg Capsule) 4 mg PO Q4H PRN PRN Reason: Diarrhea Last Admin: 11/19/22 21:02 Dose: 4 mg Documented By: ARASH Metoprolol Tartrate (Metoprolol Tartrate 100 Mg Tablet) 100 mg PO BID [facility]; Protocol Last Admin: 11/20/22 09:36 Dose: 100 mg Documented By: SHANNAN Omeprazole (Omeprazole 20 Mg Capsule.) 20 mg PO BID@0630,1630 [facility] Last Admin: 11/20/22 06:09 Dose: 20 mg Documented By: OSCAR Ondansetron HCl (Ondansetron Hcl 4 Mg/2 Ml Vial) 4 mg IVPUSH Q8H PRN PRN Reason: Nausea and Vomiting Last Admin: 11/19/22 21:03 Dose: 4 mg Documented By: ARASH Oxycodone HCl (Oxycodone Hcl Immed Release 5 Mg Tablet) 10 mg PO Q4H PRN PRN Reason: Pain, Moderate(Pain Scale 4-6) Sodium Chloride (0.9 % Sodium Chloride Flush 3 Ml Syringe) 3 ml IVFLUSH QSHIFT [facility] Last Admin: 11/20/22 09:43 Dose: 3 ml Documented By: SHANNAN Labs 11/19/22 07:31 11/18/22 06:32 Microbiology Microbiology Results: Microbiology 11/18/22 16:41 Blood Culture - Preliminary Blood - Venous No growth after 24 hours. 11/18/22 16:41 Blood Culture - Preliminary Blood - Venous No growth after 24 hours. Assessment and Plan (1) Fever: Status: Acute (2) Rectal carcinoma: Status: Acute Plan 77yo M with AF on apixaban, SSS s/p PPM, HTN, rectal CA on chemotherapy/XRT presenting with burning epigastric pain with dysphagia, anorexia, admitted for ANIL with severe acidemia, developed LGIB Paroxysmal AFib with RVR patient noted to be in rapid ventricular rate to 160 with chest palpitation, patient received 2 dosages of IV Cardizem heart rate subsequently improved to 60s patient started on Cardizem 60 mg t.i.d. 1.Fever - afebrile times 48 hours - blood cultures negative times 24 hours 2.ANIL/metabolic acidosis - normalized with volume repletion -follow renals/divalents 3.Acute on chronic blood loss anemia due to acute LGIB -transfused 3u PRBCs since admit -continue to hold Eliquis;, follow INR -follow daily CBC 4.Malignant neoplasm of rectum - continues to have multiple watery stools - will check C diff - switch Imodium to Lomotil - continue to hold Xeloda 5.Paroxysmal AF with RVR - acceptable rate control - continue to hold Eliquis - adjust therapies as indicated SCDs Full Code In my clinical judgment, the patient requires continued inpatient hospitalization for the following reasons: LGIB, anemia need further workup an expert opinion if continue to bleed Time Spent With Patient Time: Total time managing care of this patient today ____ minutes. Quality Stroke Does the patient have a stroke diagnosis?: No VTE Prior VTE?: No VTE Risk Level:: Medical - moderate - high VTE Device Contraindication: Treatment Not Indicated VTE Drug Contraindication: N/A - Med Ordered
[2022-11-20] MEDS: ondansetron HCL 4 MG/2 ML VIAL IVPUSH (19:27)
[2022-11-21] VITALS (9 sets, daily range): BP systolic 104–163; BP diastolic 48–77; PULSE 60–75; RESP 16–20; TEMP 36.2–37.4; O2SAT 91–95
--- NOTE | 2022-11-21 05:21 | PC.NURSE ---
Dr. Gaxiola from Oncology called this RN at approx 2130. Per MD patient ordered for IR procedure in AM. In anticipation patient made NPO at midnight and labs ordered for AM. Patient notified.
--- NOTE | 2022-11-21 14:08 | MHC.CM.PN ---
EMR reviewed and per MD round, pt is not medically cleared due to pending embolization. CM will continue to follow.
--- NOTE | 2022-11-21 14:45 | HO.PM.IMPN ---
Subjective Subjective Date of Service: 11/21/22 Interval History: No acute issues overnight hemoglobin stable. Review of Systems still with loose stools. Pain control poor Physical Exam Vital Signs: Vital Signs: Last Vital Signs Temp 98.7 F 11/21/22 11:17 Pulse 61 11/21/22 11:17 Resp 17 11/21/22 11:17 BP 104/55 L 11/21/22 11:17 Pulse Ox 94 11/21/22 11:17 O2 Del Method Room Air 11/21/22 11:17 BMI result Body Mass Index 28.9 Const: Other: awake alert no acute distress Resp: Other: clear to auscultation bilaterally no rales rhonchi or wheezes Cardio: Other: no S4; positive S1-S2; no S3 murmurs rubs or gallops GI: Other: soft nontender nondistended normoactive caroline Extrem: Other: no edema bilaterally Objective Data Active Medications Acetaminophen (Acetaminophen 325 Mg Tablet) 650 mg PO Q6H PRN PRN Reason: Pain, Mild (Pain Scale 1-3) Last Admin: 11/18/22 16:23 Dose: 650 mg Documented By: DES Calcium Carbonate (Calcium Carbonate 750 Mg Tab.Chew) 750 mg PO Q6H PRN PRN Reason: Heartburn Last Admin: 11/20/22 01:48 Dose: 750 mg Documented By: OSCAR Diltiazem HCl (Diltiazem Hcl 60 Mg Tablet) 60 mg PO TID [facility]; Protocol Last Admin: 11/21/22 08:41 Dose: 60 mg Documented By: SHANNAN Fluconazole (Fluconazole 100 Mg Tablet) 100 mg PO DAILY [facility] Stop: 11/22/22 23:59 Last Admin: 11/21/22 08:41 Dose: 100 mg Documented By: SHANNAN Hydrocortisone (Hydrocortisone 2.5 % Rectal Cr 30 Gm Tube) 1 appl [place] DAILY [facility] Last Admin: 11/21/22 08:42 Dose: 1 appl Documented By: SHANNAN Hydromorphone HCl (Hydromorphone Hcl 1 Mg/Ml Syringe) 1 mg IVPUSH Q4H PRN; Protocol PRN Reason: severe pain Last Admin: 11/21/22 08:42 Dose: 1 mg Documented By: SHANNAN Loperamide HCl (Loperamide Hcl 2 Mg Capsule) 4 mg PO Q4H PRN PRN Reason: Diarrhea Last Admin: 11/20/22 23:12 Dose: 4 mg Documented By: ALICIA Metoprolol Tartrate (Metoprolol Tartrate 100 Mg Tablet) 100 mg PO BID [facility]; Protocol Last Admin: 11/21/22 08:41 Dose: 100 mg Documented By: SHANNAN Omeprazole (Omeprazole 20 Mg Capsule.Dr) 20 mg PO BID@0630,1630 [facility] Last Admin: 11/21/22 05:46 Dose: 20 mg Documented By: ALICIA Ondansetron HCl (Ondansetron Hcl 4 Mg/2 Ml Vial) 4 mg IVPUSH Q8H PRN PRN Reason: Nausea and Vomiting Last Admin: 11/20/22 19:27 Dose: 4 mg Documented By: NEAL Oxycodone HCl (Oxycodone Hcl Immed Release 5 Mg Tablet) 10 mg PO Q4H PRN PRN Reason: Pain, Moderate(Pain Scale 4-6) Last Admin: 11/21/22 12:25 Dose: 10 mg Documented By: SHANNAN Sodium Chloride (0.9 % Sodium Chloride Flush 3 Ml Syringe) 3 ml IVFLUSH QSHIFT [facility] Last Admin: 11/21/22 08:41 Dose: 3 ml Documented By: SHANNAN Labs 11/21/22 06:46 11/21/22 06:46 Labs: Laboratory Results - last 24 hr 11/21/22 06:46 MCV 89.6 MCH 28.5 MCHC 31.8 RDW 24.1 H Plt Count 124 L D MPV 10.3 Immature Gran % (Auto) Cancelled Neut % (Auto) Cancelled Lymph % (Auto) Cancelled [place] % (Auto) Cancelled Eos % (Auto) Cancelled Baso % (Auto) Cancelled Lymph # (Auto) Cancelled [place] # (Auto) Cancelled Eos # (Auto) Cancelled Baso # (Auto) Cancelled Abs Immat Gran (auto) Cancelled Absolute Neuts (auto) Cancelled Absolute Nucleated RBC 0.000 Nucleated RBC % (auto) 0.0 Neutrophils % (Manual) 64 Band Neutrophils % 11 H Lymphocytes % (Manual) 7 L Atypical Lymphs % (Man) 1 Monocytes % (Manual) 9 Eosinophils % (Manual) 1 Metamyelocytes % 3 Myelocytes % 3 Promyelocytes % 1 Abs Neuts (Manual) 2.6 Lymphocytes # (Manual) 0.2 L Monocytes # (Manual) 0.3 Metamyelocytes # 0.1 Myelocytes # 0.1 Toxic Granulation PRESENT Dohle Bodies PRESENT Platelet Estimate DECREASED Plt Morphology Comment NORMAL RBC Morphology NOTED Polychromasia 1+ (0-2) Macrocytosis 1+ (5-14) PT 17.0 H INR 1.4 H Anion Gap 16 Estim Creat Clear Calc 41.7 Estimated GFR 40 Random Glucose 106 Calcium 8.4 D Total Bilirubin 1.1 H AST 18 ALT 12 Alkaline Phosphatase 59 Total Protein 5.4 L Albumin 2.7 L Blood Type A Positive Antibody Screen NEGATIVE Microbiology Microbiology Results: Microbiology 11/18/22 16:41 Blood Culture - Preliminary Blood - Venous No growth after 48 hours. 11/18/22 16:41 Blood Culture - Preliminary Blood - Venous No growth after 48 hours. Assessment and Plan (1) Rectal carcinoma: Status: Acute Plan 77yo M with AF on apixaban, SSS s/p PPM, HTN, rectal CA on chemotherapy/XRT presenting with burning epigastric pain with dysphagia, anorexia, admitted for ANIL with severe acidemia, developed LGIB Paroxysmal AFib with RVR patient noted to be in rapid ventricular rate to 160 with chest palpitation, patient received 2 dosages of IV Cardizem heart rate subsequently improved to 60s patient started on Cardizem 60 mg t.i.d. 1..Malignant neoplasm of rectum - continues to have multiple watery stools - Dr. Gaxiola to arrange embolization - continue to hold Xeloda 2.ANIL/metabolic acidosis - normalized with volume repletion -follow renals/divalents 3.Acute on chronic blood loss anemia due to acute LGIB -transfused 3u PRBCs since admit -continue to hold Eliquis;, follow INR -follow daily CBC 4.Paroxysmal AF with RVR - acceptable rate control - continue to hold Eliquis - adjust therapies as indicated SCDs Full Code In my clinical judgment, the patient requires continued inpatient hospitalization for the following reasons: LGIB, anemia need further workup an expert opinion if continue to bleed Time Spent With Patient Time: Total time managing care of this patient today ____ minutes. Quality Stroke Does the patient have a stroke diagnosis?: No VTE Prior VTE?: No VTE Risk Level:: Medical - moderate - high VTE Device Contraindication: Treatment Not Indicated VTE Drug Contraindication: N/A - Med Ordered
--- NOTE | 2022-11-21 18:36 | PC.NURSE ---
Assumed care of patient upon arrival back to unit from OR at approx 1715 arrived flat in bed. Right groin with dressing clean dry intact scant bloody drainage on tegaderm, no redness, warmth or swelling to site soft to touch not painful per patient if not moving. A&OX4. Fluids infusing per order. Vital signs stable. Patient to remain flat until 1929 then HOB 30 degrees until 2129. Diet changed to clear liquid per request of surgery. Will continue to monitor and report changes
[2022-11-22] VITALS (7 sets, daily range): BP systolic 118–144; BP diastolic 56–78; PULSE 64–97; RESP 18–22; TEMP 36.3–37.2; O2SAT 93–96
[2022-11-22] MEDS: ondansetron HCL 4 MG/2 ML VIAL IVPUSH (04:30)
--- NOTE | 2022-11-22 06:57 | PM.EVENT ---
Event Note Date of Service: 11/22/22 Event Note: Nurse reported increase intensity in abdominal pain. Upon examination, abdomen distended noted. Ordered KUB which showed ileus versus obstruction. Will keep patient NPO. Defer NG tube as patient not actively vomiting. Will order CT scan Time Spent With Patient Time: Total time managing care of this patient today ____ minutes.
--- NOTE | 2022-11-22 06:57 | PC.NURSE ---
At 0420 patient reported having nausea, new epigastric pain, and abdominal pain. MD made aware, EkG obtained and zofran given. patients epigastric pain continued to worsen and abnominal distention increased. MD was paged again and he came to the floor to evaluate patient. upon evaluation MD order abdominal Xray kud. patient settled into bed now and resting.
[2022-11-22 08:45] LABS: Alanine Aminotransferase 13 U/L (0-40); Albumin Level 2.9 g/dL (3.5-5.0); Alkaline Phosphatase 74 U/L (39-117); Anion Gap 16 (12-20); Aspartate Amino Transferase 19 U/L (5-37); Blood Urea Nitrogen 24 mg/dL (9-16); Calcium 8.5 mg/dL (8.4-10.2); Carbon Dioxide 27 mmol/L (22-29); Chloride 105 mmol/L (96-108); Creatinine Clr Calc Pharmacy 48.8; Estimated Glomerular Filt Rate 48; Glucose Fasting 123 mg/dL (60-99); Potassium 4.1 mmol/L (3.3-5.1); Sodium 144 mmol/L (135-145)
--- NOTE | 2022-11-22 11:51 | PM.CNGS ---
History of Present Illness Consult details Consult date: 11/22/22 Reason for consult: abdominal pain Requesting physician: Lorenzo Horner Narrative: 77-year-old male patient admitted to the hospitalist service for complaints of nausea and severe epigastric pain, admitted on 11/09/2022. He was recently diagnosed with rectal cancer is currently undergoing chemo and radiation therapy under the direction of Dr. Gaxiola. His past history is also significant for atrial fibrillation on Eliquis, sick sinus syndrome with pacemaker in place, and hypertension. The patient became more distended reported increased abdominal pain overnight and subsequently was evaluated with CT abdomen and pelvis. This revealed a distended loops of small bowel suggestive of an ileus with no clear transition point. There is moderate distension of the stomach with air-fluid levels as well. Nasogastric tube was offered but the patient has refused. Review of Systems Review of Systems: Yes Unobtainable due to mental condition [facility] Past Medical History Medical History Aftercare following left shoulder joint replacement surgery Pacemaker OA (osteoarthritis) Borderline hyperlipidemia Obesity HTN (hypertension) EtOH dependence Mild cognitive impairment Inhibited sex excitement Atrial fibrillation Cancer of kidney High cholesterol Hypertension Functional capacity: uses cane/walker Family History Family History Mother Heart problem Social History Social History Household Members: Spouse Housing: House Do you presently have visiting nurse or other home services: No Alcohol intake: former Patient Tobacco Use Status: Former Tobacco user Smoked in Last 30 Days: No Use of substances other than those prescribed or required for medical reasons: No Currently Displaying Signs/Symptoms of Drug Intoxication Withdrawal: No Have you been hit, kicked, punched, or otherwise hurt by someone within the past year? If so, by whom?: No Do you feel safe in your current relationship?: Yes Is there a partner from a previous relationship who is making you feel unsafe now?: No Are you made to feel afraid or neglected: No Advance Directives: No Advance Directives Information Provided: Yes Do you have thoughts of harming others: None Do you have a plan to hurt others: No Plan Recently lost weight without trying: Unsure How much weight loss: Unsure Nutrition Risks: No Nutritional Risk service: Yes Meds Allergies Allergy/AdvReac Type Severity Reaction Status Date / Time No Known Allergies [NKA] Allergy Mild NOT Verified 11/04/22 18:18 APPLICABLE Active Medications: Current Medications Acetaminophen (Acetaminophen 325 Mg Tablet) 650 mg PO Q6H PRN PRN Reason: Pain, Mild (Pain Scale 1-3) Last Admin: 11/18/22 16:23 Dose: 650 mg Calcium Carbonate (Calcium Carbonate 750 Mg Tab.Chew) 750 mg PO Q6H PRN PRN Reason: Heartburn Last Admin: 11/20/22 01:48 Dose: 750 mg Diltiazem HCl (Diltiazem Hcl 60 Mg Tablet) 60 mg PO TID [facility]; Protocol Last Admin: 11/22/22 10:51 Dose: Not Given Fluconazole (Fluconazole 100 Mg Tablet) 100 mg PO DAILY [facility] Stop: 11/22/22 23:59 Last Admin: 11/22/22 10:51 Dose: Not Given Hydrocortisone (Hydrocortisone 2.5 % Rectal Cr 30 Gm Tube) 1 appl [place] DAILY [facility] Last Admin: 11/22/22 11:09 Dose: Not Given Hydromorphone HCl (Hydromorphone Hcl 1 Mg/Ml Syringe) 1 mg IVPUSH Q4H PRN; Protocol PRN Reason: severe pain Last Admin: 11/22/22 11:01 Dose: 1 mg Loperamide HCl (Loperamide Hcl 2 Mg Capsule) 4 mg PO Q4H PRN PRN Reason: Diarrhea Last Admin: 11/20/22 23:12 Dose: 4 mg Metoprolol Tartrate (Metoprolol Tartrate 100 Mg Tablet) 100 mg PO BID [facility]; Protocol Last Admin: 11/22/22 10:51 Dose: Not Given Omeprazole (Omeprazole 20 Mg Capsule.Dr) 20 mg PO BID@0630,1630 [facility] Last Admin: 11/22/22 07:13 Dose: Not Given Ondansetron HCl (Ondansetron Hcl 4 Mg/2 Ml Vial) 4 mg IVPUSH Q8H PRN PRN Reason: Nausea and Vomiting Last Admin: 11/22/22 04:30 Dose: 4 mg Oxycodone HCl (Oxycodone Hcl Immed Release 5 Mg Tablet) 10 mg PO Q4H PRN PRN Reason: Pain, Moderate(Pain Scale 4-6) Last Admin: 11/21/22 12:25 Dose: 10 mg Sodium Chloride (0.9 % Sodium Chloride Flush 3 Ml Syringe) 3 ml IVFLUSH QSHIFT [facility] Last Admin: 11/22/22 10:51 Dose: Not Given Home Medications Medication Instructions Recorded Confirmed Last Taken Type apixaban 5 mg tablet (Eliquis) 5 mg PO BID 06/27/22 11/09/22 Unknown History Physical Exam Vital Signs: Vital Signs: Last Vital Signs Temp 97.6 F 11/22/22 08:00 Pulse 89 11/22/22 08:00 Resp 18 11/22/22 08:00 BP 142/78 H 11/22/22 08:00 Pulse Ox 95 11/22/22 08:00 O2 Del Method Room Air 11/22/22 08:00 BMI result Body Mass Index 28.9 Const: General: ill appearing and tired appearing Nutritional Appearance: well nourished HEENT: Head: Yes normocephalic Resp: Effort & Inspection: normal respiratory effort, no audible wheezes and no cough GI: Inspection: Yes distended Palpation (GI): Firmness to palpation present (GI), Tenderness to palpation present (GI) with no rebound tenderness, no guarding and not rigid Percussion: Yes tympanic to percussion Auscultation: Absent bowel sounds Rectal Exam - Male: Yes deferred Extrem: General: Yes edema Results Labs 11/22/22 08:00 11/22/22 08:00 Labs: Abnormal lab results 11/22/22 Range/Units 08:00 RBC 3.51 L (4.60-5.80) X10*6/uL Hgb 10.1 L (14.0-18.0) g/dl Hct 31.8 L (42.0-52.0) % RDW 24.4 H (11.0-16.0) % Absolute Nucleated RBC 0.020 H (0.0-0.012) X10*3/uL Nucleated RBC % (auto) 0.4 H (0.0-0.2) /100WBC Neutrophils % (Manual) 42 L (45-73) % Band Neutrophils % 44 H (3-5) % Lymphocytes % (Manual) 5 L (20-40) % Lymphocytes # (Manual) 0.3 L (1.2-4.9) X10*3/uL BUN 24 H (9-16) mg/dL Creatinine 1.42 H (0.5-1.4) mg/dL Fasting Glucose 123 H (60-99) mg/dL Total Protein 6.0 L (6.5-8.0) g/dL Albumin 2.9 L (3.5-5.0) g/dL Short CBC 11/22/22 Range/Units 08:00 WBC 5.0 (4.8-10.8) X10*3/uL Hgb 10.1 L (14.0-18.0) g/dl Hct 31.8 L (42.0-52.0) % Plt Count 169 D (160-400) X10*3/uL BMP 11/22/22 08:00 Sodium 144 Potassium 4.1 Chloride 105 Carbon Dioxide 27 BUN 24 H Creatinine 1.42 H Calcium 8.5 Liver Function 11/22/22 Range/Units 08:00 Total Bilirubin 1.0 (0.0-1.0) mg/dL AST 19 (5-37) U/L ALT 13 (0-40) U/L Alkaline Phosphatase 74 (39-117) U/L Albumin 2.9 L (3.5-5.0) g/dL Urine 11/09/22 11/09/22 11/18/22 Range/Units 12:17 22:50 21:45 Urine Color Yellow Yellow Dark Yellow Urine Appearance Clear Clear Clear Urine pH 5.0 5.5 5.5 (5.0-9.0) Ur Specific [place] 1.015 1.015 1.020 (1.005-1.025) Urine Protein 30 (1+) H 100 (2+) H 30 (1+) H (Neg-Trace) mg/dL Urine Glucose (UA) Negative Negative Negative (Negative) mg/dL All other labs normal. Imaging Abdomen CT scan report/results: image reviewed CT scan - pelvis: image reviewed Assessment and Plan (1) Rectal carcinoma: Status: Acute (2) Adynamic ileus: Status: Acute Plan Unfortunate 77-year-old male diagnosed with rectal cancer currently undergoing chemoradiation presenting with abdominal distension, abdominal pain, nausea and vomiting. Workup revealed an ileus most likely due to the radiation therapy. Ideally patient have an NG tube to decompress stomach and small bowel which may help with patient's comfort. Patient has refused. Recommend supportive care and bowel rest. No surgical intervention anticipated. Time Spent With Patient Time: Total time managing care of this patient today ____ minutes. Procedures Date of Service Date of Service: 11/22/22
--- NOTE | 2022-11-22 13:55 | MHC.CM.PN ---
EMR REVIEWED, PT NOW W/ILEUS, NPO INITATED PLAN FOR BOWEL REST AND SUPPORTIVE CARE PT HAS REFUSED NG TUBE PLACEMENT, CM WILL CONT TO FOLLOW D/C NEEDS.
--- NOTE | 2022-11-22 15:51 | P.PNIM_ITS ---
Subjective Subjective Date of Service: 11/22/22 Interval History: Noted to be extremely distended and tympanitic this a.m.. CT demonstrated ileus. NG tube placed with 900 cc removed. Patient noted improvement. Review of Systems still with loose stools. Pain control poor Physical Exam 2 Vital Signs: Vital Signs: Last Vital Signs Temp 98.5 F 11/22/22 15:18 Pulse 85 11/22/22 15:18 Resp 18 11/22/22 15:18 BP 118/60 11/22/22 15:18 Pulse Ox 94 11/22/22 15:18 O2 Del Method Room Air 11/22/22 15:18 BMI result Body Mass Index 28.9 Const: Other: awake alert no acute distress Resp: Other: clear to auscultation bilaterally no rales rhonchi or wheezes Cardio: Other: no S4; positive S1-S2; no S3 murmurs rubs or gallops GI: Other: Protuberant tympanitic with essentially no bowel sounds Extrem: Other: no edema bilaterally Objective Data Active Medications Acetaminophen (Acetaminophen 325 Mg Tablet) 650 mg PO Q6H PRN PRN Reason: Pain, Mild (Pain Scale 1-3) Last Admin: 11/18/22 16:23 Dose: 650 mg Documented By: DES Calcium Carbonate (Calcium Carbonate 750 Mg Tab.Chew) 750 mg PO Q6H PRN PRN Reason: Heartburn Last Admin: 11/20/22 01:48 Dose: 750 mg Documented By: OSCAR Diltiazem HCl (Diltiazem Hcl 60 Mg Tablet) 60 mg PO TID [facility]; Protocol Last Admin: 11/22/22 15:41 Dose: Not Given Documented By: SHARMAINE Non-Admin Reason: NPO Fluconazole (Fluconazole 100 Mg Tablet) 100 mg PO DAILY [facility] Stop: 11/22/22 23:59 Last Admin: 11/22/22 10:51 Dose: Not Given Documented By: SHARMAINE Non-Admin Reason: NPO Hydrocortisone (Hydrocortisone 2.5 % Rectal Cr 30 Gm Tube) 1 appl [place] DAILY [facility] Last Admin: 11/22/22 11:09 Dose: Not Given Documented By: SHARMAINE Non-Admin Reason: Not In Room Hydromorphone HCl (Hydromorphone Hcl 1 Mg/Ml Syringe) 1 mg IVPUSH Q4H PRN; Protocol PRN Reason: severe pain Last Admin: 11/22/22 11:01 Dose: 1 mg Documented By: SHARMAINE Loperamide HCl (Loperamide Hcl 2 Mg Capsule) 4 mg PO Q4H PRN PRN Reason: Diarrhea Last Admin: 11/20/22 23:12 Dose: 4 mg Documented By: ALICIA Metoprolol Tartrate (Metoprolol Tartrate 100 Mg Tablet) 100 mg PO BID [facility]; Protocol Last Admin: 11/22/22 10:51 Dose: Not Given Documented By: SHARMAINE Non-Admin Reason: NPO Omeprazole (Omeprazole 20 Mg Capsule.Dr) 20 mg PO BID@0630,1630 [facility] Last Admin: 11/22/22 07:13 Dose: Not Given Documented By: GUSTAVO Non-Admin Reason: NPO Ondansetron HCl (Ondansetron Hcl 4 Mg/2 Ml Vial) 4 mg IVPUSH Q8H PRN PRN Reason: Nausea and Vomiting Last Admin: 11/22/22 04:30 Dose: 4 mg Documented By: MARISELA Oxycodone HCl (Oxycodone Hcl Immed Release 5 Mg Tablet) 10 mg PO Q4H PRN PRN Reason: Pain, Moderate(Pain Scale 4-6) Last Admin: 11/21/22 12:25 Dose: 10 mg Documented By: SHANNAN Sodium Chloride (0.9 % Sodium Chloride Flush 3 Ml Syringe) 3 ml IVFLUSH QSHIFT [facility] Last Admin: 11/22/22 10:51 Dose: Not Given Documented By: SHARMAINE Non-Admin Reason: Previously Administered Labs 11/22/22 08:00 11/22/22 08:00 Labs: Laboratory Results - last 24 hr 11/22/22 08:00 MCV 90.6 MCH 28.8 MCHC 31.8 RDW 24.4 H Plt Count 169 D MPV 10.7 Immature Gran % (Auto) Cancelled Neut % (Auto) Cancelled Lymph % (Auto) Cancelled [place] % (Auto) Cancelled Eos % (Auto) Cancelled Baso % (Auto) Cancelled Lymph # (Auto) Cancelled [place] # (Auto) Cancelled Eos # (Auto) Cancelled Baso # (Auto) Cancelled Abs Immat Gran (auto) Cancelled Absolute Neuts (auto) Cancelled Absolute Nucleated RBC 0.020 H Nucleated RBC % (auto) 0.4 H Neutrophils % (Manual) 42 L Band Neutrophils % 44 H Lymphocytes % (Manual) 5 L Monocytes % (Manual) 7 Metamyelocytes % 2 Abs Neuts (Manual) 4.3 Lymphocytes # (Manual) 0.3 L Monocytes # (Manual) 0.4 Metamyelocytes # 0.1 Dohle Bodies PRESENT Platelet Estimate NORMAL Large Platelets PRESENT Plt Morphology Comment NOTED RBC Morphology NOTED Polychromasia 1+ (0-2) Microcytosis 1+ (5-14) Macrocytosis 1+ (5-14) Tear Drop Cells 1+ (0-2) Ovalocytes 1+ (5-14) Millicent Cells 2+ (3-5) Acanthocytes (Spur) 1+ (0-2) Schistocytes 1+ (0-2) Anion Gap 16 Estim Creat Clear Calc 48.8 Estimated GFR 48 Fasting Glucose 123 H Calcium 8.5 Total Bilirubin 1.0 AST 19 ALT 13 Alkaline Phosphatase 74 Total Protein 6.0 L Albumin 2.9 L Assessment and Plan (1) Adynamic ileus: Status: Acute (2) Rectal carcinoma: Status: Acute Plan 77yo M with AF on apixaban, SSS s/p PPM, HTN, rectal CA on chemotherapy/XRT presenting with burning epigastric pain with dysphagia, anorexia, admitted for ANIL with severe acidemia, developed LGIB Paroxysmal AFib with RVR patient noted to be in rapid ventricular rate to 160 with chest palpitation, patient received 2 dosages of IV Cardizem heart rate subsequently improved to 60s patient started on Cardizem 60 mg t.i.d. 1..Malignant neoplasm of rectum... Embolization done 11/21/2022 - ileus overnight. . . NG tube decompression with success -continue same with supplemental IV fluids -pain management with dilaudid 2.ANIL/metabolic acidosis - normalized with volume repletion -follow renals/divalents 3.Acute on chronic blood loss anemia due to acute LGIB -transfused 3u PRBCs since admit... Hemoglobin stable -continue to hold Eliquis;, follow INR -follow daily CBC 4.Paroxysmal AF with RVR - acceptable rate control - continue to hold Eliquis - adjust therapies as indicated SCDs Full Code In my clinical judgment, the patient requires continued inpatient hospitalization for the following reasons: LGIB, anemia need further workup an expert opinion if continue to bleed Time Spent With Patient Time: Total time managing care of this patient today ____ minutes. Quality Stroke Does the patient have a stroke diagnosis?: No VTE Prior VTE?: No VTE Risk Level:: Medical - moderate - high VTE Device Contraindication: Treatment Not Indicated VTE Drug Contraindication: N/A - Med Ordered
[2022-11-22] MEDS: 0.9 % Sodium Chloride Flush 3 ML SYRINGE IVFLUSH ×2 (16:44→21:14)
[2022-11-22] MEDS: HYDROmorphone HCl 1 MG/ML SYRINGE IVPUSH ×2 (16:50→21:13)
[2022-11-22] MEDS: Lactated Ringers 1,000 ML 100 ML IVCONT (16:52)
--- NOTE | 2022-11-22 18:30 | PC.NURSE ---
Pt 9/10 at start of shift 0730. Abdomen distended, firm, unable to appreciate bowel sounds. Painful to touch. Remains NPO. Off unit approximately [address] Horner updated on patient status, HR elevated into 130's. Seen by MD at bedside, initially refusing NG tube. Medicated for pain with IV Dilaudid per order with some effect. Pt educated on need for NG tube and given time to decide on plan. 1215 pt agreed to have NG tube placed appears very uncomfortable questions asked and answered pt reassured on decision. Dr Horner notified. Extra dose 1mg IV Dilaudid ordered and given prior to tube placement for comfort. NG tube placed to right nare with some difficulty small amount bleeding noted from insertion, although patient tolerated well. Immediate light brown drainage in tube. Xray completed Dr Horner notified. 1400 NG tube hooked up to low wall suction immediate 300ML brown liquid in container 1615 total of 1300 emptied from initial suction canister. Dr Horner notified IV fluids started LR at 100/hr per order. Pt remains npo although now asking to eat and drink. Educated on need to remain NPO oral swabs provided. Abdomen less firm than previous although still no bowel sounds appreciated. Medicated for pain as needed with IV Dilaudid with good effect. Dressing to right groin remains with unchanged bloody drainage site soft to touch no redness, swelling or warmth. Will continue to monitor and report changes
[2022-11-22] MEDS: dilTIAZem HCL 60 MG TABLET PO (21:12)
[2022-11-22] MEDS: Metoprolol Tartrate 100 MG TABLET PO (21:13)
[2022-11-23] MEDS: HYDROmorphone HCl 1 MG/ML SYRINGE IVPUSH ×4 (01:46→23:04)
[2022-11-23] MEDS: Lactated Ringers 1,000 ML 100 ML IVCONT ×2 (02:36→13:08)
[2022-11-23 03:06] VITALS: BP 114/57; PULSE 68; RESP 18; TEMP 36.6; O2SAT 94
[2022-11-23] MEDS: Omeprazole 20 MG CAPSULE.DR PO ×2 (05:38→17:34)
[2022-11-23 07:44] LABS: Hematocrit 28.5 % (42.0-52.0); Hemoglobin 8.9 g/dl (14.0-18.0); Mean Corpuscular HGB Conc 31.2 g/dl (31.0-36.0); Mean Corpuscular Hemoglobin 28.6 pg (27.0-33.0); Mean Corpuscular Volume 91.6 fL (80.0-98.0); Mean Platelet Volume 11.2 fL (9.4-12.4); NRBC Pct Auto 0.2 /100WBC (0.0-0.2); Platelet Count 161 X10*3/uL (160-400); Red Blood Count 3.11 X10*6/uL (4.60-5.80); Red Cell Distribution Width 24.9 % (11.0-16.0)
[2022-11-23 07:45] LABS: WBC ABN SCTR FOR CBC 1
[2022-11-23 07:47] VITALS: BP 128/65; PULSE 80; RESP 18; TEMP 37; O2SAT 94
[2022-11-23 08:00] LABS: Alanine Aminotransferase 11 U/L (0-40); Albumin Level 2.6 g/dL (3.5-5.0); Alkaline Phosphatase 75 U/L (39-117); Anion Gap 16 (12-20); Aspartate Amino Transferase 17 U/L (5-37); Bilirubin Total 0.9 mg/dL (0.0-1.0); Blood Urea Nitrogen 33 mg/dL (9-16); Calcium 7.8 mg/dL (8.4-10.2); Carbon Dioxide 27 mmol/L (22-29); Chloride 106 mmol/L (96-108); Creatinine Clr Calc Pharmacy 41.2; Estimated Glomerular Filt Rate 40; Glucose Fasting 101 mg/dL (60-99); Potassium 4.5 mmol/L (3.3-5.1); Sodium 144 mmol/L (135-145); Total Protein 5.3 g/dL (6.5-8.0)
[2022-11-23 08:15] LABS: Band Neutrophils Percent 32 % (3-5); Lymphocytes Percent Manual 4 % (20-40); Metamyelocytes Percent 2 %; Monocytes Percent Manual 6 % (2-11); Neutrophils Percent Manual 56 % (45-73); Nucleated Red Blood Cells 1 /100WBC (0-0)
[2022-11-23 08:17] LABS: Large Platelet PRESENT; Macrocytosis 1+ (5-14) /OIF; Microcytosis 1+ (5-14) /OIF; Platelet Estimate NORMAL (NORMAL); Platelet Morphology Comment NOTED; RBC Morphology NOTED
[2022-11-23 08:18] LABS: Acanthocytes 1+ (0-2) /OIF; Burr Cells 1+ (0-2) /OIF; Dohle Bodies PRESENT; Ovalocytes 1+ (5-14) /OIF; Schistocytes 1+ (0-2) /OIF; Tear Drop Cells 1+ (0-2) /OIF
[2022-11-23 08:22] LABS: Lymphocytes Absolute Manual 0.4 X10*3/uL (1.2-4.9); Metamyelocytes Absolute 0.2 X10*3/uL; Monocytes Absolute Manual 0.6 X10*3/uL (0.1-1.2); Neutrophils Absolute Manual 8.4 X10*3/uL (2.0-8.3); White Blood Count 9.5 X10*3/uL (4.8-10.8)
--- NOTE | 2022-11-23 08:45 | PM.PNGS ---
Subjective Subjective Date of Service: 11/23/22 Interval history: NGT inserted yesterday but patient pulled out while sleeping. Denies nausea, vomiting. Passing some flatus and had small liquid stool this morning. Has not been OOB. Wants to drink something. Physical Exam Vital Signs: Vital Signs: Last Vital Signs Temp 98.6 F 11/23/22 07:47 Pulse 80 11/23/22 07:47 Resp 18 11/23/22 07:47 BP 128/65 11/23/22 07:47 Pulse Ox 94 11/23/22 07:47 O2 Del Method Room Air 11/23/22 07:47 BMI result Body Mass Index 28.9 Const: General: comfortable, no acute distress and alert Orientation/consciousness: patient oriented x3 GI: Inspection: Yes distended Palpation (GI): Soft to palpation, nontender, no guarding and not rigid Percussion: Yes tympanic to percussion Skin: General skin exam: no rashes or lesions noted Neuro: General: patient oriented x3 Objective Data Active Medications Acetaminophen (Acetaminophen 325 Mg Tablet) 650 mg PO Q6H PRN PRN Reason: Pain, Mild (Pain Scale 1-3) Last Admin: 11/18/22 16:23 Dose: 650 mg Documented By: DES Calcium Carbonate (Calcium Carbonate 750 Mg Tab.Chew) 750 mg PO Q6H PRN PRN Reason: Heartburn Last Admin: 11/20/22 01:48 Dose: 750 mg Documented By: OSCAR Diltiazem HCl (Diltiazem Hcl 60 Mg Tablet) 60 mg PO TID NILE; Protocol Last Admin: 11/22/22 21:12 Dose: 60 mg Documented By: ARASH Hydrocortisone (Hydrocortisone 2.5 % Rectal Cr 30 Gm Tube) 1 appl [place] DAILY [facility] Last Admin: 11/22/22 11:09 Dose: Not Given Documented By: SHARMAINE Non-Admin Reason: Not In Room Hydromorphone HCl (Hydromorphone Hcl 1 Mg/Ml Syringe) 1 mg IVPUSH Q4H PRN; Protocol PRN Reason: severe pain Last Admin: 11/23/22 01:46 Dose: 1 mg Documented By: ARASH Lactated Ringer's (Lr) 1,000 mls @ 100 mls/hr IVCONT .Q10H NILE Last Admin: 11/23/22 02:36 Dose: 100 mls/hr Documented By: ARASH Loperamide HCl (Loperamide Hcl 2 Mg Capsule) 4 mg PO Q4H PRN PRN Reason: Diarrhea Last Admin: 11/20/22 23:12 Dose: 4 mg Documented By: ALICIA Metoprolol Tartrate (Metoprolol Tartrate 100 Mg Tablet) 100 mg PO BID [facility]; Protocol Last Admin: 11/22/22 21:13 Dose: 100 mg Documented By: ARASH Omeprazole (Omeprazole 20 Mg Capsule.Dr) 20 mg PO BID@0630,1630 [facility] Last Admin: 11/23/22 05:38 Dose: 20 mg Documented By: ARASH Ondansetron HCl (Ondansetron Hcl 4 Mg/2 Ml Vial) 4 mg IVPUSH Q8H PRN PRN Reason: Nausea and Vomiting Last Admin: 11/22/22 04:30 Dose: 4 mg Documented By: MARISELA Oxycodone HCl (Oxycodone Hcl Immed Release 5 Mg Tablet) 10 mg PO Q4H PRN PRN Reason: Pain, Moderate(Pain Scale 4-6) Last Admin: 11/21/22 12:25 Dose: 10 mg Documented By: SHANNAN Sodium Chloride (0.9 % Sodium Chloride Flush 3 Ml Syringe) 3 ml IVFLUSH [facility] Last Admin: 11/22/22 21:14 Dose: 3 ml Documented By: ARASH Labs 11/23/22 06:55 11/23/22 06:55 Labs: Laboratory Results - last 24 hr 11/22/22 11/23/22 08:00 06:55 MCV 91.6 MCH 28.6 MCHC 31.2 RDW 24.9 H Plt Count 161 MPV 11.2 Immature Gran % (Auto) Cancelled Neut % (Auto) Cancelled Lymph % (Auto) Cancelled [place] % (Auto) Cancelled Eos % (Auto) Cancelled Baso % (Auto) Cancelled Lymph # (Auto) Cancelled [place] # (Auto) Cancelled Eos # (Auto) Cancelled Baso # (Auto) Cancelled Abs Immat Gran (auto) Cancelled Absolute Neuts (auto) Cancelled Absolute Nucleated RBC 0.020 H Nucleated RBC % (auto) 0.2 Neutrophils % (Manual) 42 L 56 Band Neutrophils % 44 H 32 H Lymphocytes % (Manual) 5 L 4 L Monocytes % (Manual) 7 6 Metamyelocytes % 2 2 Abs Neuts (Manual) 4.3 8.4 H Lymphocytes # (Manual) 0.3 L 0.4 L Monocytes # (Manual) 0.4 0.6 Metamyelocytes # 0.1 0.2 Nucleated RBCs 1 H Dohle Bodies PRESENT PRESENT Platelet Estimate NORMAL NORMAL Large Platelets PRESENT PRESENT Plt Morphology Comment NOTED NOTED RBC Morphology NOTED NOTED Polychromasia 1+ (0-2) Microcytosis 1+ (5-14) 1+ (5-14) Macrocytosis 1+ (5-14) 1+ (5-14) Tear Drop Cells 1+ (0-2) 1+ (0-2) Ovalocytes 1+ (5-14) 1+ (5-14) Millicent Cells 2+ (3-5) 1+ (0-2) Acanthocytes (Spur) 1+ (0-2) 1+ (0-2) Schistocytes 1+ (0-2) 1+ (0-2) Anion Gap 16 16 Estim Creat Clear Calc 48.8 41.2 Estimated GFR 48 40 Fasting Glucose 123 H 101 H Calcium 8.5 7.8 L D Total Bilirubin 1.0 0.9 AST 19 17 ALT 13 11 Alkaline Phosphatase 74 75 Total Protein 6.0 L 5.3 L Albumin 2.9 L 2.6 L Procedures Date of Service Date of Service: 11/23/22 Progress Note: A&P Assessment and plan (1) Adynamic ileus: Status: Acute Plan 77 year old male with rectal cancer, rectal bleeding s/p embolization found to have abdominal distention with CT showing dilated SB loops consistent with ileus. NGT inserted with large amount of bilious drainage but was subsequently removed by patient. He has some evidence of return of GI function but remains significantly distended and tympanitic and therefore would keep NPO for now. Encouraged OOB/ambulation to promote GI function, reduce narcotics if possible. Can hold off on NGT reinsertion unless he begans to vomit. Time Spent With Patient Time: Total time managing care of this patient today ____ minutes. Quality Stroke Does the patient have a stroke diagnosis?: No VTE Prior VTE?: No VTE Risk Level:: Medical - moderate - high VTE Device Contraindication: Treatment Not Indicated VTE Drug Contraindication: N/A - Med Ordered
[2022-11-23] MEDS: Metoprolol Tartrate 100 MG TABLET PO ×2 (09:08→22:00)
[2022-11-23] MEDS: dilTIAZem HCL 60 MG TABLET PO ×3 (09:08→22:01)
[2022-11-23] MEDS: Hydrocortisone 2.5 % Rectal Cr 30 GM TUBE 1 APPL PR (09:09)
--- NOTE | 2022-11-23 11:28 | HO.PM.IMPN ---
Subjective Subjective Date of Service: 11/23/22 Interval History: overnight, pt pulled out NGT and refused to have it re-inserted this AM, noted small amount of liquid stool without blood no N/V Review of Systems Review of Systems: Yes all other systems are reviewed and are negative Physical Exam Vital Signs: Vital Signs: Last Vital Signs Temp 98.6 F 11/23/22 07:47 Pulse 80 11/23/22 07:47 Resp 18 11/23/22 07:47 BP 128/65 11/23/22 07:47 Pulse Ox 94 11/23/22 07:47 O2 Del Method Room Air 11/23/22 07:47 BMI result Body Mass Index 28.9 Gen: in no acute distress HEENT: sclera anicteric, moist mucus membranes Neck: supple Lungs: clear to auscultation bilaterally Heart: regular rate and rhythm, no murmurs Abd: distended, no bowel sounds Ext: no edema Skin: warm/well-perfused Neuro: alert and oriented x3, no focal findings Psych: appropriate affect Objective Data Active Medications Acetaminophen (Acetaminophen 325 Mg Tablet) 650 mg PO Q6H PRN PRN Reason: Pain, Mild (Pain Scale 1-3) Last Admin: 11/18/22 16:23 Dose: 650 mg Documented By: DES Calcium Carbonate (Calcium Carbonate 750 Mg Tab.Chew) 750 mg PO Q6H PRN PRN Reason: Heartburn Last Admin: 11/20/22 01:48 Dose: 750 mg Documented By: OSCAR Diltiazem HCl (Diltiazem Hcl 60 Mg Tablet) 60 mg PO TID [facility]ILE; Protocol Last Admin: 11/23/22 09:08 Dose: 60 mg Documented By: VALENTE Hydrocortisone (Hydrocortisone 2.5 % Rectal Cr 30 Gm Tube) 1 appl [place] DAILY NILE Last Admin: 11/23/22 09:09 Dose: 1 appl Documented By: VALENTE Hydromorphone HCl (Hydromorphone Hcl 1 Mg/Ml Syringe) 1 mg IVPUSH Q4H PRN; Protocol PRN Reason: severe pain Last Admin: 11/23/22 09:51 Dose: 1 mg Documented By: VALENTE Lactated Ringer's (Lr) 1,000 mls @ 100 mls/hr IVCONT .Q10H NILE Last Admin: 11/23/22 02:36 Dose: 100 mls/hr Documented By: ARASH Loperamide HCl (Loperamide Hcl 2 Mg Capsule) 4 mg PO Q4H PRN PRN Reason: Diarrhea Last Admin: 11/20/22 23:12 Dose: 4 mg Documented By: ALICIA Metoprolol Tartrate (Metoprolol Tartrate 100 Mg Tablet) 100 mg PO BID [facility]; Protocol Last Admin: 11/23/22 09:08 Dose: 100 mg Documented By: VALENTE Omeprazole (Omeprazole 20 Mg Capsule.Dr) 20 mg PO BID@0630,1630 [facility] Last Admin: 11/23/22 05:38 Dose: 20 mg Documented By: ARASH Ondansetron HCl (Ondansetron Hcl 4 Mg/2 Ml Vial) 4 mg IVPUSH Q8H PRN PRN Reason: Nausea and Vomiting Last Admin: 11/22/22 04:30 Dose: 4 mg Documented By: MARISELA Oxycodone HCl (Oxycodone Hcl Immed Release 5 Mg Tablet) 10 mg PO Q4H PRN PRN Reason: Pain, Moderate(Pain Scale 4-6) Last Admin: 11/21/22 12:25 Dose: 10 mg Documented By: SHANNAN Sodium Chloride (0.9 % Sodium Chloride Flush 3 Ml Syringe) [address] [facility] Last Admin: 11/23/22 09:08 Dose: Not Given Documented By: VALENTE Non-Admin Reason: IV Running Labs 11/23/22 06:55 11/23/22 06:55 Labs: Laboratory Results - last 24 hr 11/23/22 06:55 MCV 91.6 MCH 28.6 MCHC 31.2 RDW 24.9 H Plt Count 161 MPV 11.2 Immature Gran % (Auto) Cancelled Neut % (Auto) Cancelled Lymph % (Auto) Cancelled [place] % (Auto) Cancelled Eos % (Auto) Cancelled Baso % (Auto) Cancelled Lymph # (Auto) Cancelled [place] # (Auto) Cancelled Eos # (Auto) Cancelled Baso # (Auto) Cancelled Abs Immat Gran (auto) Cancelled Absolute Neuts (auto) Cancelled Absolute Nucleated RBC 0.020 H Nucleated RBC % (auto) 0.2 Neutrophils % (Manual) 56 Band Neutrophils % 32 H Lymphocytes % (Manual) 4 L Monocytes % (Manual) 6 Metamyelocytes % 2 Abs Neuts (Manual) 8.4 H Lymphocytes # (Manual) 0.4 L Monocytes # (Manual) 0.6 Metamyelocytes # 0.2 Nucleated RBCs 1 H Dohle Bodies PRESENT Platelet Estimate NORMAL Large Platelets PRESENT Plt Morphology Comment NOTED RBC Morphology NOTED Microcytosis 1+ (5-14) Macrocytosis 1+ (5-14) Tear Drop Cells 1+ (0-2) Ovalocytes 1+ (5-14) Millicent Cells 1+ (0-2) Acanthocytes (Spur) 1+ (0-2) Schistocytes 1+ (0-2) Smear Path Review Anion Gap 16 Estim Creat Clear Calc 41.2 Estimated GFR 40 Fasting Glucose 101 H Calcium 7.8 L D Total Bilirubin 0.9 AST 17 ALT 11 Alkaline Phosphatase 75 Total Protein 5.3 L Albumin 2.6 L Assessment and Plan (1) Adynamic ileus: Status: Acute (2) Rectal carcinoma: Status: Acute Plan d15 77yo M with AF on apixaban, SSS s/p PPM, HTN, rectal CA on chemotherapy/XRT presenting with burning epigastric pain with dysphagia, anorexia admitted for ANIL with severe acidemia developed LGIB and also AF/RVR now with ileus ileus - awaiting return of bowel function, keep NPO, Surgery following, OK to leave out NGT for now in the absence of vomiting normocytic anemia due to LGIB due to rectal CA + radiation proctitis - transfused 2u pRBCs 11/10/22 + 1u pRBCS 11/25/22 - held apixaban; got vitamin K 11/11/22 - GI consulted; sigmoidoscopy 11/15/22 showed proximal rectum with friable rectal mass about 2-3 cm with surrounding fibrotic and scarred tissue, was actively oozing blood; clipped and hemo-sprayed; macerated mucosa in remainder of rectum and distal sigmoid due to XRT noted - IR embolization of tumor done 11/21/22 - improved after IV diltiazem, changed to PO diltiazem - no AC given GIB ANIL metabolic acidosis - prerenal from dehydration/poor PO intake from chemo; got extensive IV hydration; continue LR for now - continue hold lisinopril + Xeloda epigastric pain - likely GI toxicity of Xeloda; switched IV to PO PPI oral/esophageal candidiasis - completed fluconazole 11/09-11/22/22 rectal CA - recently started chemotherapy + XRT; hold Xeloda; Heme-Onc consulted and will need outpt f/u HTN - hold lisinopril, continue metoprolol nad diltiazem renal mass - outpt surveillance q6mo VTE ppx - SCDs dispo - eventual home In my clinical judgment, the patient requires continued inpatient hospitalization for the following reasons: ileus Time Spent With Patient Time: Total time managing care of this patient today __45__ minutes. Quality Stroke Does the patient have a stroke diagnosis?: No VTE Prior VTE?: No VTE Risk Level:: Medical - moderate - high VTE Device Contraindication: Treatment Not Indicated VTE Drug Contraindication: N/A - Med Ordered
[2022-11-23 11:32] VITALS: BP 127/62; PULSE 58; RESP 17; TEMP 36.6; O2SAT 96
[2022-11-23 15:58] VITALS: BP 114/64; PULSE 91; RESP 18; TEMP 36.2; O2SAT 93
[2022-11-23 20:00] VITALS: BP 111/53; PULSE 62; RESP 18; TEMP 36.2; O2SAT 94
[2022-11-23] MEDS: 0.9 % Sodium Chloride Flush 3 ML SYRINGE IVFLUSH (23:05)
[2022-11-23 23:30] VITALS: BP 133/63; PULSE 89; RESP 18; TEMP 37; O2SAT 98
[2022-11-24] VITALS (9 sets, daily range): BP systolic 113–156; BP diastolic 59–68; PULSE 60–93; RESP 17–20; TEMP 36.1–37; O2SAT 94–96
[2022-11-24] MEDS: HYDROmorphone HCl 1 MG/ML SYRINGE IVPUSH ×4 (02:32→18:58)
[2022-11-24] MEDS: Omeprazole 20 MG CAPSULE.DR PO ×2 (06:45→15:30)
[2022-11-24] MEDS: Lactated Ringers 1,000 ML 50 ML IVCONT (06:46)
[2022-11-24 08:51] LABS: Hematocrit 28.8 % (42.0-52.0); Hemoglobin 8.8 g/dl (14.0-18.0); Mean Corpuscular HGB Conc 30.6 g/dl (31.0-36.0); Mean Corpuscular Hemoglobin 28.3 pg (27.0-33.0); Mean Corpuscular Volume 92.6 fL (80.0-98.0); Mean Platelet Volume 11.3 fL (9.4-12.4); Platelet Count 184 X10*3/uL (160-400); Red Blood Count 3.11 X10*6/uL (4.60-5.80); Red Cell Distribution Width 25.2 % (11.0-16.0); White Blood Count 7.3 X10*3/uL (4.8-10.8)
[2022-11-24] MEDS: 0.9 % Sodium Chloride Flush 3 ML SYRINGE IVFLUSH ×2 (09:01→14:52)
[2022-11-24] MEDS: dilTIAZem HCL 60 MG TABLET PO ×3 (09:01→21:30)
[2022-11-24] MEDS: Metoprolol Tartrate 100 MG TABLET PO ×2 (09:01→21:30)
[2022-11-24 09:08] LABS: Alanine Aminotransferase 10 U/L (0-40); Albumin Level 2.5 g/dL (3.5-5.0); Alkaline Phosphatase 62 U/L (39-117); Anion Gap 17 (12-20); Aspartate Amino Transferase 15 U/L (5-37); Bilirubin Total 0.7 mg/dL (0.0-1.0); Blood Urea Nitrogen 35 mg/dL (9-16); Calcium 8.1 mg/dL (8.4-10.2); Carbon Dioxide 25 mmol/L (22-29); Chloride 108 mmol/L (96-108); Estimated Glomerular Filt Rate 42; Glucose Fasting 80 mg/dL (60-99); Potassium 4.5 mmol/L (3.3-5.1); Sodium 145 mmol/L (135-145); Total Protein 5.2 g/dL (6.5-8.0)
[2022-11-24 09:54] LABS: Band Neutrophils Percent 20 % (3-5); Lymphocytes Absolute Manual 0.4 X10*3/uL (1.2-4.9); Lymphocytes Percent Manual 6 % (20-40); Metamyelocytes Absolute 0.1 X10*3/uL; Metamyelocytes Percent 1 %; Monocytes Absolute Manual 0.1 X10*3/uL (0.1-1.2); Monocytes Percent Manual 2 % (2-11); Neutrophils Absolute Manual 6.6 X10*3/uL (2.0-8.3); Neutrophils Percent Manual 71 % (45-73); Nucleated Red Blood Cells 1 /100WBC (0-0)
[2022-11-24 09:56] LABS: Macrocytosis 1+ (5-14) /OIF; Microcytosis 1+ (5-14) /OIF; Platelet Estimate NORMAL (NORMAL); RBC Morphology NOTED
[2022-11-24 09:57] LABS: Acanthocytes 1+ (0-2) /OIF; Burr Cells 1+ (0-2) /OIF; Dohle Bodies PRESENT; Ovalocytes 1+ (5-14) /OIF; Platelet Morphology Comment NORMAL; Polychromasia 1+ (0-2) /OIF; Schistocytes 1+ (0-2) /OIF; Target Cells 1+ (5-14) /OIF; Tear Drop Cells 1+ (0-2) /OIF
[2022-11-24] MEDS: Hydrocortisone 2.5 % Rectal Cr 30 GM TUBE 1 APPL PR (12:35)
--- NOTE | 2022-11-24 13:09 | HO.PM.IMPN ---
Subjective Subjective Date of Service: 11/24/22 Interval History: NG tube replaced overnight 1 loose stool abd distended Physical Exam Vital Signs: Vital Signs: Last Vital Signs Temp 97.3 F 11/24/22 11:13 Pulse 60 11/24/22 11:13 Resp 20 11/24/22 11:13 BP 120/60 11/24/22 11:13 Pulse Ox 94 11/24/22 11:13 O2 Del Method Room Air 11/24/22 11:13 BMI result Body Mass Index 28.9 Gen: in no acute distress HEENT: sclera anicteric, moist mucus membranes Neck: supple Lungs: clear to auscultation bilaterally Heart: regular rate and rhythm, no murmurs Abd: distended, no bowel sounds, NG tube in place Ext: no edema Skin: warm/well-perfused Neuro: alert and oriented x3, no focal findings Psych: appropriate affect Objective Data Active Medications Acetaminophen (Acetaminophen 325 Mg Tablet) 650 mg PO Q6H PRN PRN Reason: Pain, Mild (Pain Scale 1-3) Last Admin: 11/18/22 16:23 Dose: 650 mg Documented By: DES Calcium Carbonate (Calcium Carbonate 750 Mg Tab.Chew) 750 mg PO Q6H PRN PRN Reason: Heartburn Last Admin: 11/20/22 01:48 Dose: 750 mg Documented By: OSCAR Diltiazem HCl (Diltiazem Hcl 60 Mg Tablet) 60 mg PO TID [facility]; Protocol Last Admin: 11/24/22 09:01 Dose: 60 mg Documented By: PAMELA Hydrocortisone (Hydrocortisone 2.5 % Rectal Cr 30 Gm Tube) 1 appl [place] DAILY [facility] Last Admin: 11/24/22 12:35 Dose: 1 appl Documented By: PAMELA Hydromorphone HCl (Hydromorphone Hcl 1 Mg/Ml Syringe) 1 mg IVPUSH Q4H PRN; Protocol PRN Reason: severe pain Last Admin: 11/24/22 09:02 Dose: 1 mg Documented By: PAMELA Lactated Ringer's (Lr) 1,000 mls @ 50 mls/hr IVCONT .Q20H NILE Last Admin: 11/24/22 06:46 Dose: 50 mls/hr Documented By: GUSTAVO Loperamide HCl (Loperamide Hcl 2 Mg Capsule) 4 mg PO Q4H PRN PRN Reason: Diarrhea Last Admin: 11/20/22 23:12 Dose: 4 mg Documented By: ALICIA Metoprolol Tartrate (Metoprolol Tartrate 100 Mg Tablet) 100 mg PO BID [facility]; Protocol Last Admin: 11/24/22 09:01 Dose: 100 mg Documented By: PAMELA Omeprazole (Omeprazole 20 Mg Capsule.Dr) 20 mg PO BID@0630,1630 [facility] Last Admin: 11/24/22 06:45 Dose: 20 mg Documented By: GUSTAVO Ondansetron HCl (Ondansetron Hcl 4 Mg/2 Ml Vial) 4 mg IVPUSH Q8H PRN PRN Reason: Nausea and Vomiting Last Admin: 11/22/22 04:30 Dose: 4 mg Documented By: MARISELA Oxycodone HCl (Oxycodone Hcl Immed Release 5 Mg Tablet) 10 mg PO Q4H PRN PRN Reason: Pain, Moderate(Pain Scale 4-6) Last Admin: 11/21/22 12:25 Dose: 10 mg Documented By: SHANNAN Sodium Chloride (0.9 % Sodium Chloride Flush 3 Ml Syringe) 3 ml IVFLUSH QSHIFT [facility] Last Admin: 11/24/22 09:01 Dose: 3 ml Documented By: PAMELA Labs 11/24/22 07:57 11/24/22 07:57 Labs: Laboratory Results - last 24 hr 11/24/22 07:57 MCV 92.6 MCH 28.3 MCHC 30.6 L RDW 25.2 H Plt Count 184 MPV 11.3 Immature Gran % (Auto) Cancelled Neut % (Auto) Cancelled Lymph % (Auto) Cancelled [place] % (Auto) Cancelled Eos % (Auto) Cancelled Baso % (Auto) Cancelled Lymph # (Auto) Cancelled [place] # (Auto) Cancelled Eos # (Auto) Cancelled Baso # (Auto) Cancelled Abs Immat Gran (auto) Cancelled Absolute Neuts (auto) Cancelled Absolute Nucleated RBC 0.000 Nucleated RBC % (auto) 0.0 Neutrophils % (Manual) 71 Band Neutrophils % 20 H Lymphocytes % (Manual) 6 L Monocytes % (Manual) 2 Metamyelocytes % 1 Abs Neuts (Manual) 6.6 Lymphocytes # (Manual) 0.4 L Monocytes # (Manual) 0.1 Metamyelocytes # 0.1 Nucleated RBCs 1 H Dohle Bodies PRESENT Platelet Estimate NORMAL Plt Morphology Comment NORMAL RBC Morphology NOTED Polychromasia 1+ (0-2) Microcytosis 1+ (5-14) Macrocytosis 1+ (5-14) Target Cells 1+ (5-14) Tear Drop Cells 1+ (0-2) Ovalocytes 1+ (5-14) [place] Cells 1+ (0-2) Acanthocytes (Spur) 1+ (0-2) Schistocytes 1+ (0-2) Anion Gap 17 Estim Creat Clear Calc 43.0 Estimated GFR 42 Fasting Glucose 80 Calcium 8.1 L Total Bilirubin 0.7 AST 15 ALT 10 Alkaline Phosphatase 62 Total Protein 5.2 L Albumin 2.5 L Microbiology Microbiology Results: Microbiology 11/18/22 16:41 Blood Culture - Final Blood - Venous No growth after 5 days. 11/18/22 16:41 Blood Culture - Final Blood - Venous No growth after 5 days. Assessment and Plan (1) Adynamic ileus: Status: Acute (2) Rectal carcinoma: Status: Acute Plan d16 77yo M with AF on apixaban, SSS s/p PPM, HTN, rectal CA on chemotherapy/XRT presenting with burning epigastric pain with dysphagia, anorexia admitted for ANIL with severe acidemia developed LGIB and also AF/RVR now with ileus ileus - awaiting return of bowel function, keep NPO, Surgery following, keep NG tube in place normocytic anemia due to LGIB due to rectal CA + radiation proctitis - transfused 2u pRBCs 11/10/22 + 1u pRBCS 11/25/22 - held apixaban; got vitamin K 11/11/22 - GI consulted; sigmoidoscopy 11/15/22 showed proximal rectum with friable rectal mass about 2-3 cm with surrounding fibrotic and scarred tissue, was actively oozing blood; clipped and hemo-sprayed; macerated mucosa in remainder of rectum and distal sigmoid due to XRT noted - IR embolization of tumor done 11/21/22 AF with RVR - improved after IV diltiazem, changed to PO diltiazem - no AC given GIB ANIL metabolic acidosis - prerenal from dehydration/poor PO intake from chemo; got extensive IV hydration; continue LR for now - continue hold lisinopril + Xeloda epigastric pain - likely GI toxicity of Xeloda; switched IV to PO PPI oral/esophageal candidiasis - completed fluconazole 11/09-11/22/22 rectal CA - recently started chemotherapy + XRT; hold Xeloda; Heme-Onc consulted and will need outpt f/u HTN - hold lisinopril, continue metoprolol nad diltiazem renal mass - outpt surveillance q6mo VTE ppx - SCDs dispo - eventual home In my clinical judgment, the patient requires continued inpatient hospitalization for the following reasons: ileus Time Spent With Patient Time: Total time managing care of this patient today ____ minutes. Quality Stroke Does the patient have a stroke diagnosis?: No VTE Prior VTE?: No VTE Risk Level:: Medical - moderate - high VTE Device Contraindication: Treatment Not Indicated VTE Drug Contraindication: N/A - Med Ordered
--- NOTE | 2022-11-24 13:15 | P.PNGS_ITS ---
Subjective Subjective Date of Service: 11/24/22 Interval history: NGT reinserted. Passing flatus and had a loose BM this morning. Has not been OOB and ambulating. Physical Exam 2 Vital Signs: Vital Signs: Last Vital Signs Temp 97.3 F 11/24/22 11:13 Pulse 60 11/24/22 11:13 Resp 20 11/24/22 11:13 BP 120/60 11/24/22 11:13 Pulse Ox 94 11/24/22 11:13 O2 Del Method Room Air 11/24/22 11:13 BMI result Body Mass Index 28.9 Const: General: comfortable, no acute distress and alert O rientation/consciousness: patient oriented x3 GI: Inspection: Yes distended Palpation (GI): Soft to palpation, nontender, no guarding and not rigid Percussion: Yes tympanic to percussion Skin: General skin exam: no rashes or lesions noted Neuro: General: patient oriented x3 and moves all extremities Objective Data Active Medications Acetaminophen (Acetaminophen 325 Mg Tablet) 650 mg PO Q6H PRN PRN Reason: Pain, Mild (Pain Scale 1-3) Last Admin: 11/18/22 16:23 Dose: 650 mg Documented By: DES Calcium Carbonate (Calcium Carbonate 750 Mg Tab.Chew) 750 mg PO Q6H PRN PRN Reason: Heartburn Last Admin: 11/20/22 01:48 Dose: 750 mg Documented By: OSCAR Diltiazem HCl (Diltiazem Hcl 60 Mg Tablet) 60 mg PO TID [facility]; Protocol Last Admin: 11/24/22 09:01 Dose: 60 mg Documented By: PAMELA Hydrocortisone (Hydrocortisone 2.5 % Rectal Cr 30 Gm Tube) 1 appl [place] DAILY [facility] Last Admin: 11/24/22 12:35 Dose: 1 appl Documented By: PAMELA Hydromorphone HCl (Hydromorphone Hcl 1 Mg/Ml Syringe) 1 mg IVPUSH Q4H PRN; Protocol PRN Reason: severe pain Last Admin: 11/24/22 09:02 Dose: 1 mg Documented By: PAMELA Lactated Ringer's (Lr) 1,000 mls @ 50 mls/hr IVCONT .Q20H [facility] Last Admin: 11/24/22 06:46 Dose: 50 mls/hr Documented By: GUSTAVO Loperamide HCl (Loperamide Hcl 2 Mg Capsule) 4 mg PO Q4H PRN PRN Reason: Diarrhea Last Admin: 11/20/22 23:12 Dose: 4 mg Documented By: ALICIA Metoprolol Tartrate (Metoprolol Tartrate 100 Mg Tablet) 100 mg PO BID [facility]; Protocol Last Admin: 11/24/22 09:01 Dose: 100 mg Documented By: PAMELA Omeprazole (Omeprazole 20 Mg Capsule.Dr) 20 mg PO BID@0630,1630 [facility] Last Admin: 11/24/22 06:45 Dose: 20 mg Documented By: GUSTAVO Ondansetron HCl (Ondansetron Hcl 4 Mg/2 Ml Vial) 4 mg IVPUSH Q8H PRN PRN Reason: Nausea and Vomiting Last Admin: 11/22/22 04:30 Dose: 4 mg Documented By: SHARPE Oxycodone HCl (Oxycodone Hcl Immed Release 5 Mg Tablet) 10 mg PO Q4H PRN PRN Reason: Pain, Moderate(Pain Scale 4-6) Last Admin: 11/21/22 12:25 Dose: 10 mg Documented By: SHANNAN Sodium Chloride (0.9 % Sodium Chloride Flush 3 Ml Syringe) 3 ml IVFLUSH [facility] Last Admin: 11/24/22 09:01 Dose: 3 ml Documented By: PAMELA Labs 11/24/22 07:57 11/24/22 07:57 Labs: Laboratory Results - last 24 hr 11/24/22 07:57 MCV 92.6 MCH 28.3 MCHC 30.6 L RDW 25.2 H Plt Count 184 MPV 11.3 Immature Gran % (Auto) Cancelled Neut % (Auto) Cancelled Lymph % (Auto) Cancelled [place] % (Auto) Cancelled Eos % (Auto) Cancelled Baso % (Auto) Cancelled Lymph # (Auto) Cancelled [place] # (Auto) Cancelled Eos # (Auto) Cancelled Baso # (Auto) Cancelled Abs Immat Gran (auto) Cancelled Absolute Neuts (auto) Cancelled Absolute Nucleated RBC 0.000 Nucleated RBC % (auto) 0.0 Neutrophils % (Manual) 71 Band Neutrophils % 20 H Lymphocytes % (Manual) 6 L Monocytes % (Manual) 2 Metamyelocytes % 1 Abs Neuts (Manual) 6.6 Lymphocytes # (Manual) 0.4 L Monocytes # (Manual) 0.1 Metamyelocytes # 0.1 Nucleated RBCs 1 H Dohle Bodies PRESENT Platelet Estimate NORMAL Plt Morphology Comment NORMAL RBC Morphology NOTED Polychromasia 1+ (0-2) Microcytosis 1+ (5-14) Macrocytosis 1+ (5-14) Target Cells 1+ (5-14) Tear Drop Cells 1+ (0-2) Ovalocytes 1+ (5-14) [place] Cells 1+ (0-2) Acanthocytes (Spur) 1+ (0-2) Schistocytes 1+ (0-2) Anion Gap 17 Estim Creat Clear Calc 43.0 Estimated GFR 42 Fasting Glucose 80 Calcium 8.1 L Total Bilirubin 0.7 AST 15 ALT 10 Alkaline Phosphatase 62 Total Protein 5.2 L Albumin 2.5 L Microbiology Microbiology Results: Microbiology 11/18/22 16:41 Blood Culture - Final Blood - Venous No growth after 5 days. 11/18/22 16:41 Blood Culture - Final Blood - Venous No growth after 5 days. Procedures Date of Service Date of Service: 11/24/22 Progress Note: A&P Assessment and plan (1) Adynamic ileus: Status: Acute Plan 77 year old male with rectal cancer, rectal bleeding s/p embolization found to have abdominal distention with CT showing dilated SB loops consistent with ileus. NGT reinserted with large amount of bilious output. He has some evidence of return of GI function but remains significantly distended and tympanitic. Continue NGT decompression until abdominal distention decreases and consistent flatus. Encouraged OOB and ambulation of halls to promote GI function. Discussed with patient and . Time Spent With Patient Time: Total time managing care of this patient today ____ minutes. Quality Stroke Does the patient have a stroke diagnosis?: No VTE Prior VTE?: No VTE Risk Level:: Medical - moderate - high VTE Device Contraindication: Treatment Not Indicated VTE Drug Contraindication: N/A - Med Ordered
--- NOTE | 2022-11-24 16:35 | MHC.CM.PN ---
EMR REVIEWED, PT W/ILEUS, NG TUBE BACK IN PLACE, NO PLAN FOR D/C AT THIS TIME, CM WILL CONT TO FOLLOW D/C NEEDS.
--- NOTE | 2022-11-24 19:53 | PC.NURSE ---
Assumed care at 0700. Patient alert and oriented x4, impulsive, jumps OOB to commode without assistance and poor sense of falls risk without calling for help due to incontinence and urgency of stool and pain. Patient fully redirectable, telesitter in room. Patient continues to have intense rectal pain, also reported pain of right and left groins, L>R, right side where stained dressing was in place, dressing changed, IV dilaudid with effect, as per Emar. NGT to low intermittent suction and NPO, ok'd administration of PO diltiazem and metoprolol by clamping the NGT for 30 minutes after giving with sip of water. Rectal pain still intense with hygiene, discussed with and new order for lidocaine topical. 1300 ccs out from suction canister brown liquid.
[2022-11-24] MEDS: oxyCODONE HCl Immed Release 5 MG TABLET 10 MG PO (21:30)
[2022-11-24] MEDS: Lidocaine 5 % Ointment 35 GM 1 APPL TOPICAL (21:34)
[2022-11-25] MEDS: HYDROmorphone HCl 1 MG/ML SYRINGE IVPUSH ×4 (00:17→19:47)
[2022-11-25] MEDS: 0.9 % Sodium Chloride Flush 3 ML SYRINGE IVFLUSH ×3 (00:17→19:48)
[2022-11-25] MEDS: Lactated Ringers 1,000 ML 50 ML IVCONT ×2 (02:54→22:51)
[2022-11-25 03:19] VITALS: BP 108/67; PULSE 78; RESP 18; TEMP 37.4; O2SAT 100
[2022-11-25] MEDS: Omeprazole 20 MG CAPSULE.DR PO ×2 (05:21→14:58)
[2022-11-25 08:00] VITALS: BP 117/64; PULSE 116; RESP 18; TEMP 36.3; O2SAT 96
[2022-11-25 08:16] LABS: Hemoglobin 9.3 g/dl (14.0-18.0); Mean Corpuscular Hemoglobin 28.5 pg (27.0-33.0); Mean Platelet Volume 10.8 fL (9.4-12.4); NRBC Pct Auto 0.2 /100WBC (0.0-0.2); Platelet Count 209 X10*3/uL (160-400); Red Blood Count 3.26 X10*6/uL (4.60-5.80); Red Cell Distribution Width 25.2 % (11.0-16.0); White Blood Count 10.7 X10*3/uL (4.8-10.8)
[2022-11-25 08:31] LABS: Alanine Aminotransferase 11 U/L (0-40); Albumin Level 2.6 g/dL (3.5-5.0); Alkaline Phosphatase 64 U/L (39-117); Anion Gap 17 (12-20); Aspartate Amino Transferase 14 U/L (5-37); Bilirubin Total 0.8 mg/dL (0.0-1.0); Blood Urea Nitrogen 29 mg/dL (9-16); Calcium 7.9 mg/dL (8.4-10.2); Carbon Dioxide 23 mmol/L (22-29); Chloride 112 mmol/L (96-108); Creatinine Clr Calc Pharmacy 54.5; Estimated Glomerular Filt Rate 55; Glucose Fasting 85 mg/dL (60-99); Potassium 4.8 mmol/L (3.3-5.1); Sodium 147 mmol/L (135-145); Total Protein 5.4 g/dL (6.5-8.0)
[2022-11-25 08:45] LABS: Band Neutrophils Percent 19 % (3-5); Lymphocytes Absolute Manual 0.1 X10*3/uL (1.2-4.9); Lymphocytes Percent Manual 1 % (20-40); Metamyelocytes Absolute 0.1 X10*3/uL; Metamyelocytes Percent 1 %; Neutrophils Absolute Manual 10.5 X10*3/uL (2.0-8.3); Neutrophils Percent Manual 79 % (45-73)
[2022-11-25 08:51] LABS: Macrocytosis 1+ (5-14) /OIF; Microcytosis 1+ (5-14) /OIF; RBC Morphology NOTED
[2022-11-25 08:52] LABS: Burr Cells 1+ (0-2) /OIF; Ovalocytes 1+ (5-14) /OIF; Polychromasia 1+ (0-2) /OIF; Schistocytes 1+ (0-2) /OIF
[2022-11-25 08:53] LABS: Dohle Bodies PRESENT; Platelet Estimate NORMAL (NORMAL); Platelet Morphology Comment NORMAL
[2022-11-25] MEDS: Metoprolol Tartrate 100 MG TABLET PO ×2 (09:14→19:48)
[2022-11-25] MEDS: dilTIAZem HCL 60 MG TABLET PO ×3 (09:15→19:48)
[2022-11-25] MEDS: Acetaminophen 325 MG TABLET 650 MG PO ×3 (09:15→23:12)
[2022-11-25] MEDS: oxyCODONE HCl Immed Release 5 MG TABLET 10 MG PO ×2 (09:15→23:12)
[2022-11-25] MEDS: Hydrocortisone 2.5 % Rectal Cr 30 GM TUBE 1 APPL PR (09:17)
[2022-11-25 12:00] VITALS: BP 122/60; PULSE 67; RESP 18; TEMP 36.1; O2SAT 96
--- NOTE | 2022-11-25 14:08 | P.PNIM_ITS ---
Subjective Subjective Date of Service: 11/25/22 Interval History: thirsty minimal gas Review of Systems Review of Systems: Yes all other systems are reviewed and are negative Physical Exam 2 Vital Signs: Vital Signs: Last Vital Signs Temp 97.0 F 11/25/22 12:00 Pulse 67 11/25/22 12:00 Resp 18 11/25/22 12:00 BP 122/60 11/25/22 12:00 Pulse Ox 96 11/25/22 12:00 O2 Del Method Room Air 11/25/22 12:00 BMI result Body Mass Index 28.9 Gen: in no acute distress HEENT: sclera anicteric, moist mucus membranes Neck: supple Lungs: clear to auscultation bilaterally Heart: regular rate and rhythm, no murmurs Abd: distended, minimal bowel sounds,NG tube in place Ext: no edema Skin: warm/well-perfused Neuro: alert and oriented x3, no focal findings Psych: appropriate affect Objective Data Active Medications Acetaminophen (Acetaminophen 325 Mg Tablet) 650 mg PO Q6H PRN PRN Reason: Pain, Mild (Pain Scale 1-3) Last Admin: 11/25/22 09:15 Dose: 650 mg Documented By: JOSE JUAN Calcium Carbonate (Calcium Carbonate 750 Mg Tab.Chew) 750 mg PO Q6H PRN PRN Reason: Heartburn Last Admin: 11/20/22 01:48 Dose: 750 mg Documented By: OSCAR Diltiazem HCl (Diltiazem Hcl 60 Mg Tablet) 60 mg PO TID NILE; Protocol Last Admin: 11/25/22 09:15 Dose: 60 mg Documented By: JOSE JUAN Hydrocortisone (Hydrocortisone 2.5 % Rectal Cr 30 Gm Tube) 1 appl [place] DAILY NILE Last Admin: 11/25/22 09:17 Dose: 1 appl Documented By: JOSE JUAN Hydromorphone HCl (Hydromorphone Hcl 1 Mg/Ml Syringe) 1 mg IVPUSH Q4H PRN; Protocol PRN Reason: severe pain Last Admin: 11/25/22 13:35 Dose: 1 mg Documented By: JOSE JUAN Lactated Ringer's (Lr) 1,000 mls @ 50 mls/hr IVCONT .Q20H NILE Last Admin: 11/25/22 02:54 Dose: 50 mls/hr Documented By: VALENTÍN Lidocaine (Lidocaine 5 % Ointment 35 Gm) 1 appl TOPICAL DAILY PRN; Protocol PRN Reason: rectal pain Last Admin: 11/24/22 21:34 Dose: 1 appl Documented By: VALENTÍN Loperamide HCl (Loperamide Hcl 2 Mg Capsule) 4 mg PO Q4H PRN PRN Reason: Diarrhea Last Admin: 11/20/22 23:12 Dose: 4 mg Documented By: ALICIA Metoprolol Tartrate (Metoprolol Tartrate 100 Mg Tablet) 100 mg PO BID [facility]; Protocol Last Admin: 11/25/22 09:14 Dose: 100 mg Documented By: JOSE JUAN Omeprazole (Omeprazole 20 Mg Capsule.) 20 mg PO BID@0630,1630 [facility] Last Admin: 11/25/22 05:21 Dose: 20 mg Documented By: VALENTÍN Ondansetron HCl (Ondansetron Hcl 4 Mg/2 Ml Vial) 4 mg IVPUSH Q8H PRN PRN Reason: Nausea and Vomiting Last Admin: 11/22/22 04:30 Dose: 4 mg Documented By: MARISELA Oxycodone HCl (Oxycodone Hcl Immed Release 5 Mg Tablet) 10 mg PO Q4H PRN PRN Reason: Pain, Moderate(Pain Scale 4-6) Last Admin: 11/25/22 09:15 Dose: 10 mg Documented By: JOSE JUAN Sodium Chloride (0.9 % Sodium Chloride Flush 3 Ml Syringe) 3 ml IVFLUSH [facility] Last Admin: 11/25/22 09:17 Dose: 3 ml Documented By: JOSE JUAN Labs 11/25/22 07:38 11/25/22 07:38 Labs: Laboratory Results - last 24 hr 11/25/22 07:38 MCV 92.0 MCH 28.5 MCHC 31.0 RDW 25.2 H Plt Count 209 MPV 10.8 Immature Gran % (Auto) Cancelled Neut % (Auto) Cancelled Lymph % (Auto) Cancelled [place] % (Auto) Cancelled Eos % (Auto) Cancelled Baso % (Auto) Cancelled Lymph # (Auto) Cancelled [place] # (Auto) Cancelled Eos # (Auto) Cancelled Baso # (Auto) Cancelled Abs Immat Gran (auto) Cancelled Absolute Neuts (auto) Cancelled Absolute Nucleated RBC 0.020 H Nucleated RBC % (auto) 0.2 Neutrophils % (Manual) 79 H Band Neutrophils % 19 H Lymphocytes % (Manual) 1 L Metamyelocytes % 1 Abs Neuts (Manual) 10.5 H Lymphocytes # (Manual) 0.1 L Metamyelocytes # 0.1 Dohle Bodies PRESENT Platelet Estimate NORMAL Plt Morphology Comment NORMAL RBC Morphology NOTED Polychromasia 1+ (0-2) Microcytosis 1+ (5-14) Macrocytosis 1+ (5-14) Ovalocytes 1+ (5-14) [place] Cells 1+ (0-2) Schistocytes 1+ (0-2) Anion Gap 17 Estim Creat Clear Calc 54.5 Estimated GFR 55 Fasting Glucose 85 Calcium 7.9 L Total Bilirubin 0.8 AST 14 ALT 11 Alkaline Phosphatase 64 Total Protein 5.4 L Albumin 2.6 L Assessment and Plan (1) Adynamic ileus: Status: Acute (2) Rectal carcinoma: Status: Acute Plan d17 77yo M with AF on apixaban, SSS s/p PPM, HTN, rectal CA on chemotherapy/XRT presenting with burning epigastric pain with dysphagia, anorexia admitted for ANIL with severe acidemia developed LGIB and also AF/RVR now with ileus ileus - awaiting definitive return of bowel function, keep NPO, Surgery following, keep NG tube in place, AXR pending normocytic anemia due to LGIB due to rectal CA + radiation proctitis - transfused 2u pRBCs 11/10/22 + 1u pRBCS 11/25/22 - held apixaban; got vitamin K 11/11/22 - GI consulted; sigmoidoscopy 11/15/22 showed proximal rectum with friable rectal mass about 2-3 cm with surrounding fibrotic and scarred tissue, was actively oozing blood; clipped and hemo-sprayed; macerated mucosa in remainder of rectum and distal sigmoid due to XRT noted - IR embolization of tumor done 11/21/22 AF with RVR - improved after IV diltiazem, changed to PO diltiazem - no AC given GIB ANIL metabolic acidosis - prerenal from dehydration/poor PO intake from chemo; got extensive IV hydration; continue LR for now - continue hold lisinopril + Xeloda epigastric pain - likely GI toxicity of Xeloda; switched IV to PO PPI oral/esophageal candidiasis - completed fluconazole 11/09-11/22/22 rectal CA - recently started chemotherapy + XRT; hold Xeloda; Heme-Onc consulted and will need outpt f/u HTN - hold lisinopril, continue metoprolol nad diltiazem renal mass - outpt surveillance q6mo VTE ppx - SCDs dispo - eventual home In my clinical judgment, the patient requires continued inpatient hospitalization for the following reasons: ileus Time Spent With Patient Time: Total time managing care of this patient today __35__ minutes. Quality Stroke Does the patient have a stroke diagnosis?: No VTE Prior VTE?: No VTE Risk Level:: Medical - moderate - high VTE Device Contraindication: Treatment Not Indicated VTE Drug Contraindication: N/A - Med Ordered
[2022-11-25 14:58] VITALS: BP 130/60
[2022-11-25 16:00] VITALS: BP 135/60; PULSE 61; RESP 18; TEMP 36.1; O2SAT 94
[2022-11-25 19:06] VITALS: BP 115/58; PULSE 60; RESP 18; TEMP 36.4; O2SAT 96
--- NOTE | 2022-11-25 19:13 | P.PNGS_ITS ---
Subjective Subjective Date of Service: 11/25/22 Interval history: Patient was visited well as was present. He states that he passed some small stool and flatus. He wishes to have his NG tube removed and diet commenced. Abdominal X-ray today consistent with ileus. White blood cell count normal. Afebrile. Physical Exam 2 Vital Signs: Vital Signs: Last Vital Signs Temp 97.6 F 11/25/22 19:06 Pulse 60 11/25/22 19:06 Resp 18 11/25/22 19:06 BP 115/58 L 11/25/22 19:06 Pulse Ox 96 11/25/22 19:06 O2 Del Method Room Air 11/25/22 19:06 BMI result Body Mass Index 28.9 GI: Other: Abdomen still diffusely moderately distended but no evidence of any guarding, rebound, or rigidity. Minimal NG tube output. Patient has been taking ice chips all day. Objective Data Active Medications Acetaminophen (Acetaminophen 325 Mg Tablet) 650 mg PO Q6H PRN PRN Reason: Pain, Mild (Pain Scale 1-3) Last Admin: 11/25/22 14:58 Dose: 650 mg Documented By: JOSE JUAN Calcium Carbonate (Calcium Carbonate 750 Mg Tab.Chew) 750 mg PO Q6H PRN PRN Reason: Heartburn Last Admin: 11/20/22 01:48 Dose: 750 mg Documented By: OSCAR Diltiazem HCl (Diltiazem Hcl 60 Mg Tablet) 60 mg PO TID NILE; Protocol Last Admin: 11/25/22 14:58 Dose: 60 mg Documented By: JOSE JUAN Hydrocortisone (Hydrocortisone 2.5 % Rectal Cr 30 Gm Tube) 1 appl [place] DAILY NILE Last Admin: 11/25/22 09:17 Dose: 1 appl Documented By: JOSE JUAN Hydromorphone HCl (Hydromorphone Hcl 1 Mg/Ml Syringe) 1 mg IVPUSH Q4H PRN; Protocol PRN Reason: severe pain Last Admin: 11/25/22 13:35 Dose: 1 mg Documented By: JOSE JUAN Lactated Ringer's (Lr) 1,000 mls @ 50 mls/hr IVCONT .Q20H NILE Last Admin: 11/25/22 02:54 Dose: 50 mls/hr Documented By: VALENTÍN Lidocaine (Lidocaine 5 % Ointment 35 Gm) 1 appl TOPICAL DAILY PRN; Protocol PRN Reason: rectal pain Last Admin: 11/24/22 21:34 Dose: 1 appl Documented By: VALENTÍN Loperamide HCl (Loperamide Hcl 2 Mg Capsule) 4 mg PO Q4H PRN PRN Reason: Diarrhea Last Admin: 11/20/22 23:12 Dose: 4 mg Documented By: ALICIA Metoprolol Tartrate (Metoprolol Tartrate 100 Mg Tablet) 100 mg PO BID [facility]; Protocol Last Admin: 11/25/22 09:14 Dose: 100 mg Documented By: JOSE JUAN Omeprazole (Omeprazole 20 Mg Capsule.) 20 mg PO BID@0630,1630 [facility] Last Admin: 11/25/22 14:58 Dose: 20 mg Documented By: JOSE JUAN Ondansetron HCl (Ondansetron Hcl 4 Mg/2 Ml Vial) 4 mg IVPUSH Q8H PRN PRN Reason: Nausea and Vomiting Last Admin: 11/22/22 04:30 Dose: 4 mg Documented By: MARISELA Oxycodone HCl (Oxycodone Hcl Immed Release 5 Mg Tablet) 10 mg PO Q4H PRN PRN Reason: Pain, Moderate(Pain Scale 4-6) Last Admin: 11/25/22 09:15 Dose: 10 mg Documented By: JOSE JUAN Sodium Chloride (0.9 % Sodium Chloride Flush 3 Ml Syringe) [facility] Last Admin: 11/25/22 17:56 Dose: Not Given Documented By: JOSE JUAN Non-Admin Reason: Patient Refused Labs 11/25/22 07:38 11/25/22 07:38 Labs: Laboratory Results - last 24 hr 11/25/22 07:38 MCV 92.0 MCH 28.5 MCHC 31.0 RDW 25.2 H Plt Count 209 MPV 10.8 Immature Gran % (Auto) Cancelled Neut % (Auto) Cancelled Lymph % (Auto) Cancelled [place] % (Auto) Cancelled Eos % (Auto) Cancelled Baso % (Auto) Cancelled Lymph # (Auto) Cancelled [place] # (Auto) Cancelled Eos # (Auto) Cancelled Baso # (Auto) Cancelled Abs Immat Gran (auto) Cancelled Absolute Neuts (auto) Cancelled Absolute Nucleated RBC 0.020 H Nucleated RBC % (auto) 0.2 Neutrophils % (Manual) 79 H Band Neutrophils % 19 H Lymphocytes % (Manual) 1 L Metamyelocytes % 1 Abs Neuts (Manual) 10.5 H Lymphocytes # (Manual) 0.1 L Metamyelocytes # 0.1 Dohle Bodies PRESENT Platelet Estimate NORMAL Plt Morphology Comment NORMAL RBC Morphology NOTED Polychromasia 1+ (0-2) Microcytosis 1+ (5-14) Macrocytosis 1+ (5-14) Ovalocytes 1+ (5-14) [place] Cells 1+ (0-2) Schistocytes 1+ (0-2) Anion Gap 17 Estim Creat Clear Calc 54.5 Estimated GFR 55 Fasting Glucose 85 Calcium 7.9 L Total Bilirubin 0.8 AST 14 ALT 11 Alkaline Phosphatase 64 Total Protein 5.4 L Albumin 2.6 L Procedures Date of Service Date of Service: 11/25/22 Progress Note: A&P Assessment and plan (1) Adynamic ileus: Status: Acute Plan Continue current plan with NG tube. Encourage out of bed/ambulate, incentive spirometry. When abdomen is less distended, consider NG tube removal in commencing diet slowly. Time Spent With Patient Time: Total time managing care of this patient today ____ minutes. Quality Stroke Does the patient have a stroke diagnosis?: No VTE Prior VTE?: No VTE Risk Level:: Medical - moderate - high VTE Device Contraindication: Treatment Not Indicated VTE Drug Contraindication: N/A - Med Ordered
[2022-11-26] VITALS (7 sets, daily range): BP systolic 128–141; BP diastolic 58–83; PULSE 60–70; RESP 17–20; TEMP 36.1–36.7; O2SAT 93–98
[2022-11-26] MEDS: oxyCODONE HCl Immed Release 5 MG TABLET 10 MG PO ×3 (06:32→20:28)
[2022-11-26] MEDS: Omeprazole 20 MG CAPSULE.DR PO ×2 (06:33→16:07)
[2022-11-26] MEDS: Metoprolol Tartrate 100 MG TABLET PO ×2 (08:11→20:29)
[2022-11-26] MEDS: dilTIAZem HCL 60 MG TABLET PO ×3 (08:11→20:29)
[2022-11-26] MEDS: Hydrocortisone 2.5 % Rectal Cr 30 GM TUBE 1 APPL PR (08:12)
[2022-11-26] MEDS: HYDROmorphone HCl 1 MG/ML SYRINGE IVPUSH (08:15)
--- NOTE | 2022-11-26 11:19 | HO.PM.IMPN ---
Subjective Subjective Date of Service: 11/26/22 Interval History: passing gas and some liquid non-bloody stool no N/V Review of Systems Review of Systems: Yes all other systems are reviewed and are negative Physical Exam Vital Signs: Vital Signs: Last Vital Signs Temp 97.0 F 11/26/22 08:00 Pulse 68 11/26/22 08:00 Resp 17 11/26/22 08:00 BP 134/64 11/26/22 08:00 Pulse Ox 98 11/26/22 08:00 O2 Del Method Room Air 11/26/22 08:00 BMI result Body Mass Index 28.9 Gen: in no acute distress HEENT: sclera anicteric, moist mucus membranes Neck: supple Lungs: clear to auscultation bilaterally Heart: regular rate and rhythm, no murmurs Abd: distended, minimal bowel sounds, NG tube in place Ext: no edema Skin: warm/well-perfused Neuro: alert and oriented x3, no focal findings Psych: appropriate affect Objective Data Active Medications Acetaminophen (Acetaminophen 325 Mg Tablet) 650 mg PO Q6H PRN PRN Reason: Pain, Mild (Pain Scale 1-3) Last Admin: 11/25/22 23:12 Dose: 650 mg Documented By: ALICIA Calcium Carbonate (Calcium Carbonate 750 Mg Tab.Chew) 750 mg PO Q6H PRN PRN Reason: Heartburn Last Admin: 11/20/22 01:48 Dose: 750 mg Documented By: OSCAR Diltiazem HCl (Diltiazem Hcl 60 Mg Tablet) 60 mg PO TID NILE; Protocol Last Admin: 11/26/22 08:11 Dose: 60 mg Documented By: SHARMAINE Hydrocortisone (Hydrocortisone 2.5 % Rectal Cr 30 Gm Tube) 1 appl [place] DAILY NILE Last Admin: 11/26/22 08:12 Dose: 1 appl Documented By: SHARMAINE Hydromorphone HCl (Hydromorphone Hcl 1 Mg/Ml Syringe) 1 mg IVPUSH Q4H PRN; Protocol PRN Reason: severe pain Last Admin: 11/26/22 08:15 Dose: 1 mg Documented By: SHARMAINE Lidocaine (Lidocaine 5 % Ointment 35 Gm) 1 appl TOPICAL DAILY PRN; Protocol PRN Reason: rectal pain Last Admin: 11/24/22 21:34 Dose: 1 appl Documented By: VALENTÍN Loperamide HCl (Loperamide Hcl 2 Mg Capsule) 4 mg PO Q4H PRN PRN Reason: Diarrhea Last Admin: 11/20/22 23:12 Dose: 4 mg Documented By: ALICIA Metoprolol Tartrate (Metoprolol Tartrate 100 Mg Tablet) 100 mg PO BID [facility]; Protocol Last Admin: 11/26/22 08:11 Dose: 100 mg Documented By: SHARMAINE Omeprazole (Omeprazole 20 Mg Capsule.Dr) 20 mg PO BID@0630,1630 [facility] Last Admin: 11/26/22 06:33 Dose: 20 mg Documented By: NEAL Ondansetron HCl (Ondansetron Hcl 4 Mg/2 Ml Vial) 4 mg IVPUSH Q8H PRN PRN Reason: Nausea and Vomiting Last Admin: 11/22/22 04:30 Dose: 4 mg Documented By: SHARPE Oxycodone HCl (Oxycodone Hcl Immed Release 5 Mg Tablet) 10 mg PO Q4H PRN PRN Reason: Pain, Moderate(Pain Scale 4-6) Last Admin: 11/26/22 06:32 Dose: 10 mg Documented By: NEAL Sodium Chloride (0.9 % Sodium Chloride Flush 3 Ml Syringe) 3 ml IVFLUSH QSHIFT [facility] Last Admin: 11/26/22 08:11 Dose: Not Given Documented By: SHARMAINE Non-Admin Reason: IV Running Labs 11/25/22 07:38 11/25/22 07:38 Assessment and Plan (1) Adynamic ileus: Status: Acute (2) Rectal carcinoma: Status: Acute Plan d18 77yo M with AF on apixaban, SSS s/p PPM, HTN, rectal CA on chemotherapy/XRT presenting with burning epigastric pain with dysphagia, anorexia admitted for ANIL with severe acidemia developed LGIB and also AF/RVR now with ileus ileus - trial of clears and d/c NGT. Surg following normocytic anemia due to LGIB due to rectal CA + radiation proctitis - transfused 2u pRBCs 11/10/22 + 1u pRBCS 11/25/22 - held apixaban; got vitamin K 11/11/22 - GI consulted; sigmoidoscopy 11/15/22 showed proximal rectum with friable rectal mass about 2-3 cm with surrounding fibrotic and scarred tissue, was actively oozing blood; clipped and hemo-sprayed; macerated mucosa in remainder of rectum and distal sigmoid due to XRT noted - IR embolization of tumor done 11/21/22 AF with RVR - improved after IV diltiazem, changed to PO diltiazem - no AC given GIB ANIL metabolic acidosis - prerenal from dehydration/poor PO intake from chemo; got extensive IV hydration; continue LR for now - continue hold lisinopril + Xeloda epigastric pain - likely GI toxicity of Xeloda; switched IV to PO PPI oral/esophageal candidiasis - completed fluconazole 11/09-11/22/22 rectal CA - recently started chemotherapy + XRT; hold Xeloda; Heme-Onc consulted and will need outpt f/u HTN - hold lisinopril, continue metoprolol and diltiazem renal mass - outpt surveillance q6mo VTE ppx - SCDs dispo - eventual home In my clinical judgment, the patient requires continued inpatient hospitalization for the following reasons: ileus Time Spent With Patient Time: Total time managing care of this patient today __35__ minutes. Quality Stroke Does the patient have a stroke diagnosis?: No VTE Prior VTE?: No VTE Risk Level:: Medical - moderate - high VTE Device Contraindication: Treatment Not Indicated VTE Drug Contraindication: N/A - Med Ordered
--- NOTE | 2022-11-26 14:37 | PM.PNGS ---
Subjective Subjective Date of Service: 11/26/22 Interval history: Patient states he is passing flatus and stool. He has no abdominal complaints. He wished to have NG tube removed. He is hungry. Physical Exam Vital Signs: Vital Signs: Last Vital Signs Temp 97.4 F 11/26/22 11:25 Pulse 63 11/26/22 11:25 Resp 17 11/26/22 11:25 BP 141/62 H 11/26/22 11:25 Pulse Ox 96 11/26/22 11:25 O2 Del Method Room Air 11/26/22 11:25 BMI result Body Mass Index 28.9 GI: Other: Abdomen still distended diffusely but nontender. Objective Data Active Medications Acetaminophen (Acetaminophen 325 Mg Tablet) 650 mg PO Q6H PRN PRN Reason: Pain, Mild (Pain Scale 1-3) Last Admin: 11/25/22 23:12 Dose: 650 mg Documented By: ALICIA Calcium Carbonate (Calcium Carbonate 750 Mg Tab.Chew) 750 mg PO Q6H PRN PRN Reason: Heartburn Last Admin: 11/20/22 01:48 Dose: 750 mg Documented By: OSCAR Diltiazem HCl (Diltiazem Hcl 60 Mg Tablet) 60 mg PO TID [facility]; Protocol Last Admin: 11/26/22 08:11 Dose: 60 mg Documented By: SHARMAINE Hydrocortisone (Hydrocortisone 2.5 % Rectal Cr 30 Gm Tube) 1 appl [place] DAILY [facility] Last Admin: 11/26/22 08:12 Dose: 1 appl Documented By: SHARMAINE Hydromorphone HCl (Hydromorphone Hcl 1 Mg/Ml Syringe) 1 mg IVPUSH Q4H PRN; Protocol PRN Reason: severe pain Last Admin: 11/26/22 08:15 Dose: 1 mg Documented By: SHARMAINE Lidocaine (Lidocaine 5 % Ointment 35 Gm) 1 appl TOPICAL DAILY PRN; Protocol PRN Reason: rectal pain Last Admin: 11/24/22 21:34 Dose: 1 appl Documented By: VAELNTÍN Loperamide HCl (Loperamide Hcl 2 Mg Capsule) 4 mg PO Q4H PRN PRN Reason: Diarrhea Last Admin: 11/20/22 23:12 Dose: 4 mg Documented By: ALICIA Metoprolol Tartrate (Metoprolol Tartrate 100 Mg Tablet) 100 mg PO BID [facility]; Protocol Last Admin: 11/26/22 08:11 Dose: 100 mg Documented By: SHARMAINE Omeprazole (Omeprazole 20 Mg Capsule.) 20 mg PO BID@0630,1630 [facility] Last Admin: 11/26/22 06:33 Dose: 20 mg Documented By: NEAL Ondansetron HCl (Ondansetron Hcl 4 Mg/2 Ml Vial) 4 mg IVPUSH Q8H PRN PRN Reason: Nausea and Vomiting Last Admin: 11/22/22 04:30 Dose: 4 mg Documented By: SHARPE Oxycodone HCl (Oxycodone Hcl Immed Release 5 Mg Tablet) 10 mg PO Q4H PRN PRN Reason: Pain, Moderate(Pain Scale 4-6) Last Admin: 11/26/22 06:32 Dose: 10 mg Documented By: NEAL Sodium Chloride (0.9 % Sodium Chloride Flush 3 Ml Syringe) 3 ml IVFLUSH QSHIFT [facility] Last Admin: 11/26/22 08:11 Dose: Not Given Documented By: SHARMAINE Non-Admin Reason: IV Running Labs 11/25/22 07:38 11/25/22 07:38 Procedures Date of Service Date of Service: 11/26/22 Progress Note: A&P Assessment and plan (1) Adynamic ileus: Status: Acute Plan NG tube removed. Patient to have sips of p.o. liquids. Encouraged to be out of bed/ambulating, incentive spirometry. Time Spent With Patient Time: Total time managing care of this patient today ____ minutes. Quality Stroke Does the patient have a stroke diagnosis?: No VTE Prior VTE?: No VTE Risk Level:: Medical - moderate - high VTE Device Contraindication: Treatment Not Indicated VTE Drug Contraindication: N/A - Med Ordered
[2022-11-26] MEDS: 0.9 % Sodium Chloride Flush 3 ML SYRINGE IVFLUSH (16:10)
[2022-11-27] VITALS (7 sets, daily range): BP systolic 130–148; BP diastolic 59–69; PULSE 60–67; RESP 16–20; TEMP 36.3–37; O2SAT 94–97
[2022-11-27] MEDS: Omeprazole 20 MG CAPSULE.DR PO ×2 (06:28→18:17)
[2022-11-27] MEDS: 0.9 % Sodium Chloride Flush 3 ML SYRINGE IVFLUSH ×4 (07:58→19:58)
[2022-11-27] MEDS: dilTIAZem HCL 60 MG TABLET PO (07:58)
[2022-11-27] MEDS: Metoprolol Tartrate 100 MG TABLET PO ×2 (07:58→20:23)
[2022-11-27 08:04] LABS: Hematocrit 30.7 % (42.0-52.0); Hemoglobin 9.3 g/dl (14.0-18.0); Mean Corpuscular HGB Conc 30.3 g/dl (31.0-36.0); Mean Corpuscular Hemoglobin 28.4 pg (27.0-33.0); Mean Corpuscular Volume 93.6 fL (80.0-98.0); Mean Platelet Volume 10.6 fL (9.4-12.4); Platelet Count 220 X10*3/uL (160-400); Red Blood Count 3.28 X10*6/uL (4.60-5.80); Red Cell Distribution Width 25.9 % (11.0-16.0)
[2022-11-27] MEDS: Hydrocortisone 2.5 % Rectal Cr 30 GM TUBE 1 APPL PR (08:06)
--- NOTE | 2022-11-27 08:22 | MHC.CM.PN ---
EMR REVIEWED, PT W/ILEUS, NG TUBE REMOVED, DIET ADVANCED TO CLEAR LIQUIDS, ANTIC PT WILL DC HOME NO SERVICES, CM WILL CONT TO FOLLOW D/C NEEDS.
[2022-11-27] MEDS: HYDROmorphone HCl 1 MG/ML SYRINGE IVPUSH ×2 (08:43→19:57)
[2022-11-27 08:57] LABS: Anion Gap 15 (12-20); Blood Urea Nitrogen 23 mg/dL (9-16); Calcium 8.2 mg/dL (8.4-10.2); Carbon Dioxide 26 mmol/L (22-29); Chloride 111 mmol/L (96-108); Creatinine Clr Calc Pharmacy 49.8; Estimated Glomerular Filt Rate 50; Glucose Random 118 mg/dL (60-115); Potassium 5.2 mmol/L (3.3-5.1); Sodium 147 mmol/L (135-145)
--- NOTE | 2022-11-27 09:46 | P.PNIM_ITS ---
Subjective Subjective Date of Service: 11/27/22 Interval History: Passing flatus and stool without blood Tolerating clears, no nausea or vomiting Review of Systems Review of Systems: Yes all other systems are reviewed and are negative Physical Exam 2 Vital Signs: Vital Signs: Last Vital Signs Temp 97.3 F 11/27/22 08:00 Pulse 63 11/27/22 08:00 Resp 20 11/27/22 08:00 BP 148/69 H 11/27/22 08:00 Pulse Ox 94 11/27/22 08:00 O2 Del Method Room Air 11/27/22 08:00 BMI result Body Mass Index 28.9 Gen: in no acute distress HEENT: sclera anicteric, moist mucus membranes Neck: supple Lungs: clear to auscultation bilaterally Heart: regular rate and rhythm, no murmurs Abd: less distended, active bowel sounds Ext: no edema Skin: warm/well-perfused Neuro: alert and oriented x3, no focal findings Psych: appropriate affect Objective Data Active Medications Acetaminophen (Acetaminophen 325 Mg Tablet) 650 mg PO Q6H PRN PRN Reason: Pain, Mild (Pain Scale 1-3) Last Admin: 11/25/22 23:12 Dose: 650 mg Documented By: ALICIA Calcium Carbonate (Calcium Carbonate 750 Mg Tab.Chew) 750 mg PO Q6H PRN PRN Reason: Heartburn Last Admin: 11/20/22 01:48 Dose: 750 mg Documented By: OSCAR Diltiazem HCl (Diltiazem Hcl 60 Mg Tablet) 60 mg PO TID NILE; Protocol Last Admin: 11/27/22 07:58 Dose: 60 mg Documented By: VALENTÍN Hydrocortisone (Hydrocortisone 2.5 % Rectal Cr 30 Gm Tube) 1 appl [place] DAILY NILE Last Admin: 11/27/22 08:06 Dose: 1 appl Documented By: VALENTÍN Hydromorphone HCl (Hydromorphone Hcl 1 Mg/Ml Syringe) 1 mg IVPUSH Q4H PRN; Protocol PRN Reason: severe pain Last Admin: 11/27/22 08:43 Dose: 1 mg Documented By: VALENTÍN Lidocaine (Lidocaine 5 % Ointment 35 Gm) 1 appl TOPICAL DAILY PRN; Protocol PRN Reason: rectal pain Last Admin: 11/24/22 21:34 Dose: 1 appl Documented By: VALENTÍN Loperamide HCl (Loperamide Hcl 2 Mg Capsule) 4 mg PO Q4H PRN PRN Reason: Diarrhea Last Admin: 11/20/22 23:12 Dose: 4 mg Documented By: ALICIA Metoprolol Tartrate (Metoprolol Tartrate 100 Mg Tablet) 100 mg PO BID [facility]; Protocol Last Admin: 11/27/22 07:58 Dose: 100 mg Documented By: VALENTÍN Omeprazole (Omeprazole 20 Mg Capsule.Dr) 20 mg PO BID@0630,1630 [facility] Last Admin: 11/27/22 06:28 Dose: 20 mg Documented By: ROBERTH Ondansetron HCl (Ondansetron Hcl 4 Mg/2 Ml Vial) 4 mg IVPUSH Q8H PRN PRN Reason: Nausea and Vomiting Last Admin: 11/22/22 04:30 Dose: 4 mg Documented By: MARISELA Oxycodone HCl (Oxycodone Hcl Immed Release 5 Mg Tablet) 10 mg PO Q4H PRN PRN Reason: Pain, Moderate(Pain Scale 4-6) Last Admin: 11/26/22 20:28 Dose: 10 mg Documented By: ROBERTH Sodium Chloride (0.9 % Sodium Chloride Flush 3 Ml Syringe) 3 ml IVFLUSH QSHIFT [facility] Last Admin: 11/27/22 07:58 Dose: 3 ml Documented By: VALENTÍN Sodium Zirconium Cyclosilicate (Sodium Zirconium Cyclosilicate 5 Gm Powd.Pack) 5 gm PO ONCE ONE Stop: 11/27/22 09:46 Labs 11/27/22 07:11 11/27/22 07:11 Labs: Laboratory Results - last 24 hr 11/27/22 07:11 MCV 93.6 MCH 28.4 MCHC 30.3 L RDW 25.9 H Plt Count 220 MPV 10.6 Absolute Nucleated RBC 0.000 Nucleated RBC % (auto) 0.0 Anion Gap 15 Estim Creat Clear Calc 49.8 Estimated GFR 50 Random Glucose 118 H Calcium 8.2 L Assessment and Plan (1) Adynamic ileus: Status: Acute (2) Rectal carcinoma: Status: Acute Plan d19 77yo M with AF on apixaban, SSS s/p PPM, HTN, rectal CA on chemotherapy/XRT presenting with burning epigastric pain with dysphagia, anorexia admitted for ANIL with severe acidemia developed LGIB from tumor and radiation proctitis; clipped + hemosprayed 11/15/22 then embolized 11/21/22 complicated by AF/RVR and ileus ileus - resolving, NGT removed 11/26/22, continue clears for now, Gen Surg following normocytic anemia due to LGIB due to rectal CA + radiation proctitis - transfused 2u pRBCs 11/10/22 + 1u pRBCS 11/25/22 - held apixaban; got vitamin K 11/11/22 - GI consulted; sigmoidoscopy 11/15/22 showed proximal rectum with friable rectal mass about 2-3 cm with surrounding fibrotic and scarred tissue, was actively oozing blood; clipped and hemo-sprayed; macerated mucosa in remainder of rectum and distal sigmoid due to XRT - IR embolization of tumor done 11/21/22 - H+H stable hyperK, mild - give 1 dose SZC, recheck BMP in AM hyperNa, mild - encourage free water intake, recheck BMP in AM AF with RVR - improved after IV diltiazem, changed to PO diltiazem; continue metoprolol tartrate - no AC given GIB ANIL metabolic acidosis - prerenal from dehydration/poor PO intake from chemo; got extensive IV hydration; resolved - continue hold lisinopril + Xeloda epigastric pain - likely GI toxicity of Xeloda; switched IV to PO PPI oral/esophageal candidiasis - completed fluconazole 11/09-11/22/22 rectal CA - recently started chemotherapy + XRT; hold Xeloda; Heme-Onc consulted and will need outpt f/u HTN - hold lisinopril, continue metoprolol tartrate and diltiazem renal mass - outpt surveillance q6mo VTE ppx - SCDs dispo - eventual home; should have PT re-eval when closer to d/c In my clinical judgment, the patient requires continued inpatient hospitalization for the following reasons: ileus, resolving Time Spent With Patient Time: Total time managing care of this patient today __40__ minutes. Quality Stroke Does the patient have a stroke diagnosis?: No VTE Prior VTE?: No VTE Risk Level:: Medical - moderate - high VTE Device Contraindication: Treatment Not Indicated VTE Drug Contraindication: N/A - Med Ordered
--- NOTE | 2022-11-27 10:24 | PM.PNGS ---
Subjective Subjective Date of Service: 11/27/22 Interval history: Denies abdominal pain. Tolerating clear liquids without nausea or vomiting. Feels hungry. Passing flatus and has had daily bowel movements. Reports abdomen is normal size. OOB and ambulating. Physical Exam Vital Signs: Vital Signs: Last Vital Signs Temp 97.3 F 11/27/22 08:00 Pulse 63 11/27/22 08:00 Resp 20 11/27/22 08:00 BP 148/69 H 11/27/22 08:00 Pulse Ox 94 11/27/22 08:00 O2 Del Method Room Air 11/27/22 08:00 BMI result Body Mass Index 28.9 Const: Orientation/consciousness: patient oriented x3 Resp: Effort & Inspection: normal respiratory effort GI: Inspection: Yes distended Palpation (GI): Soft to palpation, nontender, no guarding and not rigid Skin: General skin exam: no rashes or lesions noted Neuro: General: patient oriented x3 and moves all extremities Objective Data Active Medications Acetaminophen (Acetaminophen 325 Mg Tablet) 650 mg PO Q6H PRN PRN Reason: Pain, Mild (Pain Scale 1-3) Last Admin: 11/25/22 23:12 Dose: 650 mg Documented By: ALICIA Calcium Carbonate (Calcium Carbonate 750 Mg Tab.Chew) 750 mg PO Q6H PRN PRN Reason: Heartburn Last Admin: 11/20/22 01:48 Dose: 750 mg Documented By: OSCAR Diltiazem HCl (Diltiazem Hcl Cd 180 Mg Cap.Er.24h) 180 mg PO DAILY NILE; Protocol Hydrocortisone (Hydrocortisone 2.5 % Rectal Cr 30 Gm Tube) 1 appl [place] DAILY NILE Last Admin: 11/27/22 08:06 Dose: 1 appl Documented By: VALENTÍN Hydromorphone HCl (Hydromorphone Hcl 1 Mg/Ml Syringe) 1 mg IVPUSH Q4H PRN; Protocol PRN Reason: severe pain Last Admin: 11/27/22 08:43 Dose: 1 mg Documented By: VALENTÍN Lidocaine (Lidocaine 5 % Ointment 35 Gm) 1 appl TOPICAL DAILY PRN; Protocol PRN Reason: rectal pain Last Admin: 11/24/22 21:34 Dose: 1 appl Documented By: VALENTÍN Loperamide HCl (Loperamide Hcl 2 Mg Capsule) 4 mg PO Q4H PRN PRN Reason: Diarrhea Last Admin: 11/20/22 23:12 Dose: 4 mg Documented By: ALICIA Metoprolol Tartrate (Metoprolol Tartrate 100 Mg Tablet) 100 mg PO BID [facility]; Protocol Last Admin: 11/27/22 07:58 Dose: 100 mg Documented By: VALENTÍN Omeprazole (Omeprazole 20 Mg Capsule.Dr) 20 mg PO BID@0630,1630 [facility] Last Admin: 11/27/22 06:28 Dose: 20 mg Documented By: ROBERTH Ondansetron HCl (Ondansetron Hcl 4 Mg/2 Ml Vial) 4 mg IVPUSH Q8H PRN PRN Reason: Nausea and Vomiting Last Admin: 11/22/22 04:30 Dose: 4 mg Documented By: MARISELA Oxycodone HCl (Oxycodone Hcl Immed Release 5 Mg Tablet) 10 mg PO Q4H PRN PRN Reason: Pain, Moderate(Pain Scale 4-6) Last Admin: 11/26/22 20:28 Dose: 10 mg Documented By: ROBERTH Sodium Chloride (0.9 % Sodium Chloride Flush 3 Ml Syringe) 3 ml IVFLUSH QSHIFT [facility] Last Admin: 11/27/22 07:58 Dose: 3 ml Documented By: VALENTÍN Labs 11/27/22 07:11 11/27/22 07:11 Labs: Laboratory Results - last 24 hr 11/27/22 07:11 MCV 93.6 MCH 28.4 MCHC 30.3 L RDW 25.9 H Plt Count 220 MPV 10.6 Absolute Nucleated RBC 0.000 Nucleated RBC % (auto) 0.0 Anion Gap 15 Estim Creat Clear Calc 49.8 Estimated GFR 50 Random Glucose 118 H Calcium 8.2 L Procedures Date of Service Date of Service: 11/27/22 Progress Note: A&P Assessment and plan (1) Adynamic ileus: Status: Acute Plan Tolerating clears and has good GI function. Abdomen remains protuberant but patient reports this is his normal. Ileus appears to be resolved. Can advance diet as tolerated. Time Spent With Patient Time: Total time managing care of this patient today ____ minutes. Quality Stroke Does the patient have a stroke diagnosis?: No VTE Prior VTE?: No VTE Risk Level:: Medical - moderate - high VTE Device Contraindication: Treatment Not Indicated VTE Drug Contraindication: N/A - Med Ordered
[2022-11-27] MEDS: dilTIAZem HCL CD 180 MG CAP.ER.24H PO (11:25)
[2022-11-27] MEDS: oxyCODONE HCl Immed Release 5 MG TABLET 10 MG PO ×3 (12:17→18:17)
[2022-11-27] MEDS: Sodium Zirconium Cyclosilicate 5 GM POWD.PACK PO (13:52)
[2022-11-28 03:13] VITALS: BP 142/64; PULSE 61; RESP 18; TEMP 37; O2SAT 92
[2022-11-28] MEDS: HYDROmorphone HCl 1 MG/ML SYRINGE IVPUSH ×2 (05:08→15:03)
[2022-11-28 06:41] LABS: Anion Gap 18 (12-20); Blood Urea Nitrogen 23 mg/dL (9-16); Calcium 7.6 mg/dL (8.4-10.2); Carbon Dioxide 21 mmol/L (22-29); Chloride 111 mmol/L (96-108); Creatinine Clr Calc Pharmacy 52.1; Estimated Glomerular Filt Rate 52; Glucose Random 103 mg/dL (60-115); Potassium 4.6 mmol/L (3.3-5.1); Sodium 145 mmol/L (135-145)
[2022-11-28 07:36] VITALS: BP 124/58; PULSE 72; RESP 17; TEMP 36.7; O2SAT 96
[2022-11-28] MEDS: dilTIAZem HCL CD 180 MG CAP.ER.24H PO (09:20)
[2022-11-28] MEDS: Omeprazole 20 MG CAPSULE.DR PO (09:20)
[2022-11-28] MEDS: Metoprolol Tartrate 100 MG TABLET PO (09:20)
[2022-11-28] MEDS: 0.9 % Sodium Chloride Flush 3 ML SYRINGE IVFLUSH ×2 (09:21→15:03)
[2022-11-28] MEDS: Loperamide HCl 2 MG CAPSULE 4 MG PO (09:26)
[2022-11-28] MEDS: Lidocaine 5 % Ointment 35 GM 1 APPL TOPICAL (09:54)
[2022-11-28] MEDS: Hydrocortisone 2.5 % Rectal Cr 30 GM TUBE 1 APPL PR (10:23)
[2022-11-28 11:05] VITALS: BP 124/58; PULSE 72; O2SAT 96
[2022-11-28 11:21] VITALS: BP 122/63; PULSE 65; RESP 18; TEMP 36.2; O2SAT 94
--- NOTE | 2022-11-28 11:57 | P.PNGS_ITS ---
Subjective Subjective Date of Service: 11/28/22 Interval history: Patient states he is passing flatus and stool. He states last evening had a bout of nausea vomiting. Feeling better this morning. Physical Exam 2 Vital Signs: Vital Signs: Last Vital Signs Temp 97.2 F 11/28/22 11:21 Pulse 65 11/28/22 11:21 Resp 18 11/28/22 11:21 BP 122/63 11/28/22 11:21 Pulse Ox 94 11/28/22 11:21 O2 Del Method Room Air 11/28/22 11:21 BMI result Body Mass Index 28.9 GI: Other: Abdomen distended although soft and nontender. Patient states that this is the normal size of his abdomen. Objective Data Active Medications Acetaminophen (Acetaminophen 325 Mg Tablet) 650 mg PO Q6H PRN PRN Reason: Pain, Mild (Pain Scale 1-3) Last Admin: 11/25/22 23:12 Dose: 650 mg Documented By: ALICIA Calcium Carbonate (Calcium Carbonate 750 Mg Tab.Chew) 750 mg PO Q6H PRN PRN Reason: Heartburn Last Admin: 11/20/22 01:48 Dose: 750 mg Documented By: OSCAR Diltiazem HCl (Diltiazem Hcl Cd 180 Mg Cap.Er.24h) 180 mg PO DAILY NILE; Protocol Last Admin: 11/28/22 09:20 Dose: 180 mg Documented By: DES Hydrocortisone (Hydrocortisone 2.5 % Rectal Cr 30 Gm Tube) 1 appl [place] DAILY NILE Last Admin: 11/28/22 10:23 Dose: 1 appl Documented By: DES Hydromorphone HCl (Hydromorphone Hcl 1 Mg/Ml Syringe) 1 mg IVPUSH Q4H PRN; Protocol PRN Reason: severe pain Last Admin: 11/28/22 05:08 Dose: 1 mg Documented By: ELODIA Lidocaine (Lidocaine 5 % Ointment 35 Gm) 1 appl TOPICAL DAILY PRN; Protocol PRN Reason: rectal pain Last Admin: 11/28/22 09:54 Dose: 1 appl Documented By: DES Loperamide HCl (Loperamide Hcl 2 Mg Capsule) 4 mg PO Q4H PRN PRN Reason: Diarrhea Last Admin: 11/28/22 09:26 Dose: 4 mg Documented By: DES Metoprolol Tartrate (Metoprolol Tartrate 100 Mg Tablet) 100 mg PO BID [facility]; Protocol Last Admin: 11/28/22 09:20 Dose: 100 mg Documented By: DES Omeprazole (Omeprazole 20 Mg Capsule.) 20 mg PO BID@0630,1630 [facility] Last Admin: 11/28/22 09:20 Dose: 20 mg Documented By: DES Ondansetron HCl (Ondansetron Hcl 4 Mg/2 Ml Vial) 4 mg IVPUSH Q8H PRN PRN Reason: Nausea and Vomiting Last Admin: 11/22/22 04:30 Dose: 4 mg Documented By: SHARPE Oxycodone HCl (Oxycodone Hcl Immed Release 5 Mg Tablet) 10 mg PO Q4H PRN PRN Reason: Pain, Moderate(Pain Scale 4-6) Last Admin: 11/27/22 18:17 Dose: 10 mg Documented By: LIYAH Sodium Chloride (0.9 % Sodium Chloride Flush 3 Ml Syringe) 3 ml IVFLUSH [facility] Last Admin: 11/28/22 09:21 Dose: 3 ml Documented By: DES Labs 11/27/22 07:11 11/28/22 06:06 Labs: Laboratory Results - last 24 hr 11/28/22 06:06 Hold Purple Top SEE NOTE Anion Gap 18 Estim Creat Clear Calc 52.1 Estimated GFR 52 Random Glucose 103 Calcium 7.6 L D Procedures Date of Service Date of Service: 11/28/22 Progress Note: A&P Assessment and plan (1) Adynamic ileus: Status: Acute Plan Continue slow advancement of diet. Encourage odd of bed, incentive spirometry, ambulate. Time Spent With Patient Time: Total time managing care of this patient today ____ minutes. Quality Stroke Does the patient have a stroke diagnosis?: No VTE Prior VTE?: No VTE Risk Level:: Medical - moderate - high VTE Device Contraindication: Treatment Not Indicated VTE Drug Contraindication: N/A - Med Ordered
--- NOTE | 2022-11-28 12:29 | MHC.CM.PN ---
[facility] PT WILL BE MEDICALLY CLEARED FOR [facility] HOME SELF CARE, P.T. HAS CLEARED PT AND PT DOES NOT NEED HOME SERVICES/STR, PT WILL ARRANGE TRANSPORT.
--- NOTE | 2022-11-28 14:24 | P.DS_ITS ---
DS: Providers Provider Date of Service: 11/28/22 Date of admission: 11/09/22 15:37 Date of discharge: 11/28/22 Primary care physician: Joao Duncan Consults: 11/09/22 13:54 Consult to Nephrology Stat Consulting Provider: Raphael Abdi Reason for consultation: acute renal failure Has provider been notified: Yes 11/09/22 16:23 Consult to Hematology / Oncology Routine Consulting Provider: Yu Gaxiola Reason for consultation: Pt with ANIL, GI upset, Anoxeria, has rectal cancer on chemo & radiation 11/10/22 14:23 Consult to Gastroenterology Routine Consulting Provider: [facility] Reason for consultation: brbpr 11/22/22 10:59 Consult to General Surgery Stat Consulting Provider: [facility] Reason for consultation: SBO Has provider been notified: Yes DS: Diagnosis Discharge Diagnosis (1) Adynamic ileus: Status: Acute (2) Rectal carcinoma: Status: Acute (3) Candidiasis of mouth: Status: Acute (4) Acute renal failure: Status: Acute (5) GI bleed: Status: Acute (6) Chronic anticoagulation: Status: Acute (7) PAF (paroxysmal atrial fibrillation): Status: Acute (8) Malignant neoplasm of rectum: Status: Acute DS: Summary Hospital Course Hospital Course: from admission H+P by hospitalist SEBASTIAN Edward, 11/09/22: Pt is a Kinyarwanda-speaking 77-year-old male with a PMH significant for?AFib on Eliquis, sick sinus syndrome with pacemaker in place, HTN, and rectal cancer currently on oral chemotherapy and receiving radiation followed by Dr. Gaxiola who presents to the ED with?severe epigastric pain. Patient states symptoms began when he awoke at 02:00 to use the bathroom. Patient reports having severe burning pain in his epigastric region that radiated up his throat and also to his right side. Patient felt nauseous, but could not vomit. Patient states that it felt like acid reflux only much worse. Patient also states he has been experiencing some minor pain when swallowing and also difficulty with swelling for the past 3-4 days. Patient has recently started chemotherapy and radiation at the beginning of this month for rectal cancer. Patient reports having decreased appetite with reduced p.o. intake since starting treatment, says he has been eating and drinking very little the past few days. Has also noticed decreased urine output. Denies diarrhea, but states stool is softer than usual. Patient denies chest pressure, palpitations. No fever, chills, abdominal pain. In the ED patient was afebrile and hypotensive as low as 97/50. Labs were significant for stable H&H of 9.8/29.9, initial sodium 133, potassium 5.3, bicarb is low as 8, BUN 126, creatinine 5.21. No leukocytosis. Troponin 6.7. Hepatic function baseline. UA with proteinuria of 30, negative for UTI. CXR showed no acute intrathoracic disease. CT?of abdomen/pelvis a 1.5 cm contour abnormality in left kidney in the lateral midpole remains concerning for underlying mass, suggest consider MRI imaging, and also found possible filling deficit in the rectosigmoid colon. EKG showed atrial paced rhythm without evidence of ST elevations or depressions and QTc 416. Pt was treated with GI cocktail, IVF, and placed on a sodium bicarb drip. Pt will be admitted to the hospital for treatment of ANIL in the setting of recently starting chemo and radiation with likely GI toxicity secondary to chemotherapy. This is a 77yo M with AF on apixaban, SSS s/p PPM, HTN, and rectal CA on chemotherapy/XRT. He presented with burning epigastric pain with dysphagia, and anorexia. He was admitted for ANIL with severe acidemia. 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 He was also noted to have oroesophageal candidasis. Hospitalization was prolonged by complications of AF/RVR and ileus. ileus - Managed with bowel rest and NG tube and resolved. Diet advanced to clear liquids, then solids. normocytic anemia due to LGIB due to rectal CA + radiation proctitis - Transfused 2u pRBCs 11/10/22 + 1u pRBCS 11/25/22. Held apixaban; got vitamin K 11/11/22. GI consulted and performed sigmoidoscopy 11/15/22, whichshowed proximal rectum with friable rectal mass about 2-3 cm with surrounding fibrotic and scarred tissue, was actively oozing blood; clipped and hemo-sprayed; macerated mucosa in remainder of rectum and distal sigmoid due to radiation proctitis. Due to persistent bleeding, IR embolization of tumor done 11/21/22 and finally bleeding came under control and H+H was stable. AF with RVR - Improved after IV diltiazem, changed to PO diltiazem; continue metoprolol tartrate. Eliquis discontinued due to GI bleeding. ANIL metabolic acidosis - Prerenal from dehydration/poor PO intake from chemo; got extensive IV hydra tion. Lisinopril discontinued. Xeloda held. epigastric pain - Likely GI toxicity of Xeloda; switched IV to PO PPI. oral/esophageal candidiasis - Completed fluconazole 11/09-11/22/22 rectal CA - Recently started chemotherapy + XRT. Held Xeloda. Heme-Onc consulted and will need outpt f/u within 1 week. HTN - Lisinopril stopped. Continue metoprolol tartrate and diltiazem. renal mass - Continue outpt surveillance q6mo He was discharged home and will need Primary Care and Hematology follow- up in 1 week. Time Spent with Patient Time attestation: Total time managing care of this patient today __35__ minutes. Discharge coordination time: Greater than 30 minutes Quality: Safe Use of Opioids Does Pt have an Active Cancer Diagnosis on the Problem List?: No Quality: Stroke Does the patient have a stroke diagnosis?: No Physical Exam Vital Signs: Vital Signs: Last Vital Signs Temp 97.2 F 11/28/22 11:21 Pulse 65 11/28/22 11:21 Resp 18 11/28/22 11:21 BP 122/63 11/28/22 11:21 Pulse Ox 94 11/28/22 11:21 O2 Del Method Room Air 11/28/22 11:21 BMI result Body Mass Index 28.9 Gen: in no acute distress HEENT: sclera anicteric, moist mucus membranes Neck: supple Lungs: clear to auscultation bilaterally Heart: regular rate and rhythm, no murmurs Abd: less distended, active bowel sounds Ext: no edema Skin: warm/well-perfused Neuro: alert and oriented x3, no focal findings Psych: appropriate affect DS: Data Data Completed and Pending Completed studies during hospitalization [Text1]: Laboratory Results WBC 11.0 X10*3/uL (4.8-10.8) H 11/27/22 07:11 RBC 3.28 X10*6/uL (4.60-5.80) L 11/27/22 07:11 Hgb 9.3 g/dl (14.0-18.0) L 11/27/22 07:11 Hct 30.7 % (42.0-52.0) L 11/27/22 07:11 MCV 93.6 fL (80.0-98.0) 11/27/22 07:11 MCH 28.4 pg (27.0-33.0) 11/27/22 07:11 MCHC 30.3 g/dl (31.0-36.0) L 11/27/22 07:11 RDW 25.9 % (11.0-16.0) H 11/27/22 07:11 Plt Count 220 X10*3/uL (160-400) 11/27/22 07:11 MPV 10.6 fL (9.4-12.4) 11/27/22 07:11 Immature Gran % (Auto) Cancelled 11/25/22 07:38 Neut % (Auto) Cancelled 11/25/22 07:38 Lymph % (Auto) Cancelled 11/25/22 07:38 [place] % (Auto) Cancelled 11/25/22 07:38 Eos % (Auto) Cancelled 11/25/22 07:38 Baso % (Auto) Cancelled 11/25/22 07:38 Lymph # (Auto) Cancelled 11/25/22 07:38 [place] # (Auto) Cancelled 11/25/22 07:38 Eos # (Auto) Cancelled 11/25/22 07:38 Baso # (Auto) Cancelled 11/25/22 07:38 Abs Immat Gran (auto) Cancelled 11/25/22 07:38 Absolute Neuts (auto) Cancelled 11/25/22 07:38 Absolute Nucleated RBC 0.000 X10*3/uL (0.0-0.012) 11/27/22 07:11 Nucleated RBC % (auto) 0.0 /100WBC (0.0-0.2) 11/27/22 07:11 Neutrophils % (Manual) 79 % (45-73) H 11/25/22 07:38 Band Neutrophils % 19 % (3-5) H 11/25/22 07:38 Lymphocytes % (Manual) 1 % (20-40) L 11/25/22 07:38 Atypical Lymphs % (Man) 1 % (0-6) 11/21/22 06:46 Monocytes % (Manual) 2 % (2-11) 11/24/22 07:57 Eosinophils % (Manual) 1 % (0-4) 11/21/22 06:46 Basophils % (Manual) 1 % (0-2) 11/19/22 07:31 Metamyelocytes % 1 % 11/25/22 07:38 Myelocytes % 3 % 11/21/22 06:46 Promyelocytes % 1 % 11/21/22 06:46 Abs Neuts (Manual) 10.5 X10*3/uL (2.0-8.3) H 11/25/22 07:38 Lymphocytes # (Manual) 0.1 X10*3/uL (1.2-4.9) L 11/25/22 07:38 Atyp Lymphs # (Manual) 0.1 x10*3/uL 11/19/22 07:31 Monocytes # (Manual) 0.1 X10*3/uL (0.1-1.2) 11/24/22 07:57 Eosinophils # (Manual) 0.2 X10*3/uL (0.0-0.4) 11/19/22 07:31 Metamyelocytes # 0.1 X10*3/uL 11/25/22 07:38 Myelocytes # 0.1 X10*/uL 11/21/22 06:46 Nucleated RBCs 1 /100WBC (0-0) H 11/24/22 07:57 Toxic Granulation PRESENT 11/21/22 06:46 Dohle Bodies PRESENT 11/25/22 07:38 Platelet Estimate NORMAL (NORMAL) 11/25/22 07:38 Large Platelets PRESENT 11/23/22 06:55 Plt Morphology Comment NORMAL 11/25/22 07:38 RBC Morphology NOTED 11/25/22 07:38 Polychromasia 1+ (0-2) /OIF 11/25/22 07:38 Microcytosis 1+ (5-14) /OIF 11/25/22 07:38 Macrocytosis 1+ (5-14) /OIF 11/25/22 07:38 Spherocytes 3+ (>5) /OIF 11/19/22 07:31 Target Cells 1+ (5-14) /OIF 11/24/22 07:57 Tear Drop Cells 1+ (0-2) /OIF 11/24/22 07:57 Ovalocytes 1+ (5-14) /OIF 11/25/22 07:38 [place] Cells 1+ (0-2) /OIF 11/25/22 07:38 Acanthocytes (Spur) 1+ (0-2) /OIF 11/24/22 07:57 Schistocytes 1+ (0-2) /OIF 11/25/22 07:38 Smear Tech's Comments VERIFIED 11/09/22 09:32 Smear Path Review 11/23/22 06:55 Hold Purple Top SEE NOTE 11/28/22 06:06 PT 17.0 SEC (11.1-13.3) H 11/21/22 06:46 INR 1.4 (0.9-1.1) H 11/21/22 06:46 Sodium 145 mmol/L (135-145) 11/28/22 06:06 Potassium 4.6 mmol/L (3.3-5.1) 11/28/22 06:06 Chloride 111 mmol/L (96-108) H 11/28/22 06:06 Carbon Dioxide 21 mmol/L (22-29) L 11/28/22 06:06 Anion Gap 18 (12-20) 11/28/22 06:06 BUN 23 mg/dL (9-16) H 11/28/22 06:06 Creatinine 1.33 mg/dL (0.5-1.4) 11/28/22 06:06 Estim Creat Clear Calc 52.1 11/28/22 06:06 Estimated GFR 52 11/28/22 06:06 Random Glucose 103 mg/dL (60-115) 11/28/22 06:06 Fasting Glucose 85 mg/dL (60-99) 11/25/22 07:38 Calcium 7.6 mg/dL (8.4-10.2) L D 11/28/22 06:06 Magnesium 2.0 mg/dL (1.6-2.6) 11/11/22 10:50 Total Bilirubin 0.8 mg/dL (0.0-1.0) 11/25/22 07:38 Direct Bilirubin 0.2 mg/dL (0.0-0.5) 11/09/22 09:32 AST 14 U/L (5-37) 11/25/22 07:38 ALT 11 U/L (0-40) 11/25/22 07:38 Alkaline Phosphatase 64 U/L (39-117) 11/25/22 07:38 Total Creatine Kinase 128 U/L (38-174) 11/09/22 09:32 Troponin I High Sens 8.4 ng/L (<3.5-35.0) 11/09/22 21:07 Total Protein 5.4 g/dL (6.5-8.0) L 11/25/22 07:38 Albumin 2.6 g/dL (3.5-5.0) L 11/25/22 07:38 Lipase 76 U/L (8-78) 11/09/22 09:32 Hold Green Top See Note 11/17/22 07:02 Hold Yellow Top See Note 11/19/22 07:31 Urine Color Dark Yellow 11/18/22 21:45 Urine Appearance Clear 11/18/22 21:45 Urine pH 5.5 (5.0-9.0) 11/18/22 21:45 Ur Specific [place] 1.020 (1.005-1.025) 11/18/22 21:45 Urine Protein 30 (1+) mg/dL (Neg-Trace) H 11/18/22 21:45 Urine Glucose (UA) Negative mg/dL (Negative) 11/18/22 21:45 Urine Ketones Negative mg/dL (Negative) 11/18/22 21:45 Urine Blood Negative (Negative) 11/18/22 21:45 Urine Nitrite Negative (Negative) 11/18/22 21:45 Ur Leukocyte Esterase Negative (Negative) 11/18/22 21:45 Urine RBC 0-2 /HPF (0-2) 11/18/22 21:45 Urine WBC 0-5 /HPF (0-5) 11/18/22 21:45 Ur Squamous Epith Cells 6-10 /HPF (0-2) 11/18/22 21:45 Urine Bacteria None Seen (None Seen) 11/18/22 21:45 Hyaline Casts 3-5 /LPF (0-2) 11/18/22 21:45 Urine Osmolality 368 mosm/kg (373-1093) L 11/09/22 19:27 Ur Random Sodium < 20.0 mmol/L 11/09/22 19:27 Urine Creatinine 113.58 mg/dL 11/09/22 19:27 Stool Occult Blood NEGATIVE (NEGATIVE) 11/09/22 13:55 Stl C. cayetanensis PCR Not Detected (Not Detect.) 11/12/22 16:09 Stool Rotavirus A PCR Not Detected (Not Detect.) 11/12/22 16:09 Stl Adenov F 40/41 PCR Not Detected (Not Detect.) 11/12/22 16:09 Stool Astrovirus (PCR) Not Detected (Not Detect.) 11/12/22 16:09 Stool Campylobacter PCR Not Detected (Not Detect.) 11/12/22 16:09 Stool Cryptosporidium PCR Not Detected (Not Detect.) 11/12/22 16:09 Stl Sh Tox Pr E STEC PCR Not Detected (Not Detect.) 11/12/22 16:09 Stool E coli O157 PCR Not applicable (Not Detect.) 11/12/22 16:09 Stl Enterotoxigenic E PCR Not Detected (Not Detect.) 11/12/22 16:09 Stool EPEC (PCR) Not Detected (Not Detect.) 11/12/22 16:09 Stool EAEC (PCR) Not Detected (Not Detect.) 11/12/22 16:09 Stl E. histolytica PCR Not Detected (Not Detect.) 11/12/22 16:09 Stool Giardia Lamblia PCR Not Detected (Not Detect.) 11/12/22 16:09 Stl P. shigelloides PCR Not Detected (Not Detect.) 11/12/22 16:09 Stool Salmonella PCR Not Detected (Not Detect.) 11/12/22 16:09 Stool Sapovirus (PCR) Not Detected (Not Detect.) 11/12/22 16:09 Stl Shigella/EIEC PCR Not Detected (Not Detect.) 11/12/22 16:09 St Y.enterocolitica PCR Not Detected (Not Detect.) 11/12/22 16:09 Stool Vibrio (PCR) Not Detected (Not Detect.) 11/12/22 16:09 Stl Vibrio cholerae PCR Not Detected (Not Detect.) 11/12/22 16:09 Stl Norovirus GI/GII PCR Not Detected (Not Detect.) 11/12/22 16:09 C. difficile Tox B Gene NEGATIVE (Negative) 11/18/22 17:45 Blood Type A Positive 11/21/22 06:46 Antibody Screen NEGATIVE 11/21/22 06:46 Crossmatch See Detail 11/15/22 09:25 Impressions Abdomen/Pelvis CTA 11/17/22 11:29 IMPRESSION: 1. Hyperemia of the rectum. No definite evidence of extravasation. 2. 1.5 cm enhancing lesion in the left mid pole kidney suspicious for renal mass. Fleischner guidelines were followed. KUB X-Ray 11/22/22 05:45 IMPRESSION: Mildly distended loops of small bowel present throughout the abdomen. Findings could be compatible with ileus or obstruction. Abdomen/Pelvis CT 11/22/22 09:02 IMPRESSION: Diffuse small bowel ileus and distention of stomach. Colonic diverticulosis without mural thickening. Embolization of distal sigmoid colon and rectal junction which was also noted on the previous exam 11/17/2022. However there is new cord is a staple seen posterior to the rectum as described above. There is mild haziness in the perirectal fascia. Study Fleischner guidelines were followed. Chest X-Ray 11/24/22 01:05 IMPRESSION: * Enteric tube coils in the left upper quadrant within the gastric fundus. * Unchanged left basilar streaky opacities, nonspecific possibly atelectasis. There may be a small left pleural effusion. Abdomen X-Ray 11/25/22 09:49 IMPRESSION: Nasogastric tube tip projects in the upper abdomen. Persistent diffuse gaseous distention of small bowel may be related to ileus versus obstruction. Discharge Plan Discharge Anticipated Discharge Date/Time: 11/28/22 15:19 Patient Disposition: Home, Self-Care Discharge Diagnosis: GI bleeding due to rectal cancer ileus acute kidney injury atrial fibrillation GI toxicity of Xeloda candidiasis Referrals: Joao Duncan [Primary Care Provider] - 1 Week Yu Gaxiola MD [Physician] - 1 Week Physician,Unknown J [Physician] - 1 Week Discharge Medications: New omeprazole 20 mg Capsule,Delayed Release(Dr/Ec) 20 mg PO BID@0630,1630 Qty: 60 0RF loperamide 2 mg Capsule 4 mg PO Q4H PRN (Reason: Diarrhea) Qty: 90 0RF diltiazem HCl [Cardizem CD] 180 mg Capsule,Extended Release 24hr 180 mg PO DAILY Qty: 30 0RF Protocol: Hold for SBP/HR < HOLD for SBP < : 90 HOLD for HR < : 60 oxycodone 5 mg Tablet 5 mg PO Q4H PRN (Reason: Pain, Moderate(Pain Scale 4-6)) Qty: 18 0RF Rx Instructions: Partial Fill upon patient request. Continued metoprolol tartrate 100 mg tablet 100 mg PO BID 90 Days Qty: 180 0RF Protocol: Hold for SBP/HR < HOLD for SBP < : 90 HOLD for HR < : 60 ondansetron 8 mg Tablet,Disintegrating 8 mg PO Q12H Qty: 60 4RF calcium carbonate-vitamin D3 [Calcium 500 + D] 500 mg-10 mcg (400 unit) Tablet 1 tab PO BID Qty: 60 4RF Discontinued lisinopril 20 mg tablet 20 mg PO DAILY 90 Days Qty: 90 0RF Protocol: Hold for SBP< HOLD for SBP < : 90 capecitabine 500 mg Tablet 1,500 mg PO BID Qty: 120 0RF Rx Instructions: Take 1500 mg b.i.d. days 1-5, (weekends off) through radiation for 8 week. Must administer with water 30 minutes after a meal Eliquis 5 mg tablet 5 mg PO BID Discharge Orders: Discharge Order (Routine); Ordered 11/28/22 Ordered By: Roxann Horne Diet: Advance to usual diet Activity on Discharge: As tolerated Stand Alone Forms: Patient Portal Discharge page Care Plan Goals: prevent GI bleeding resume rectal cancer treatment Health Concerns: GI bleeding due to rectal cancer ileus acute kidney injury atrial fibrillation GI toxicity of Xeloda candidiasis Plan of Treatment: hold Xeloda for now; follow up with Dr Gaxiola from Hematology-Oncology within 1 week continue metoprolol, also add diltiazem 180 mg daily stop Eliquis for now stop lisionpril take omeprazole 20 mg twice daily completed fluconazole for candidiasis Please follow up with your primary care doctor within 1 week. Return to the hospital if you experience recurrent or worsening symptoms. Assessment: See Discharge Summary.
== END 2022-11-28 15:57 | disposition home or self-care (01) | DRG 988 ==
LOC: HO.ED 10:51 → HO.EDOVER 15:55 → HO.IMC 16:20
PROVIDERS: Hospitalist; Internal Medicine; Internal Medicine Gastroenterology; Radiology Vascular & Interventional Radiology; Admitting Provider Student in an Organized Health Care Education/Training Program; Emergency Provider Emergency Medicine; PCP Internal Medicine; Visit Provider Family Medicine
PROC: 0DJD8ZZ Inspection of Lower Intestinal Tract, Via Natural or Artificial Opening Endoscopic (ICD-10-PCS; CPT 45330; principal; 2022-11-15 15:20)
PROC: 04LB3DZ Occlusion of Inferior Mesenteric Artery with Intraluminal Device, Percutaneous Approach (ICD-10-PCS; principal; 2022-11-21 13:00)
DX: D68.32 Hemorrhagic disorder due to extrinsic circulating anticoagulants (principal); B37.0 Candidal stomatitis; N17.9 Acute kidney failure, unspecified; D62 Acute posthemorrhagic anemia; C20 Malignant neoplasm of rectum; E87.20 Acidosis, unspecified; B37.81 Candidal esophagitis; K56.0 Paralytic ileus; K62.5 Hemorrhage of anus and rectum; E87.0 Hyperosmolality and hypernatremia; T45.515A Adverse effect of anticoagulants, initial encounter; D63.0 Anemia in neoplastic disease; D63.1 Anemia in chronic kidney disease; I48.0 Paroxysmal atrial fibrillation; N28.89 Other specified disorders of kidney and ureter; I12.9 Hypertensive chronic kidney disease with stage 1 through stage 4 chronic kidney disease, or unspecified chronic kidney disease; K62.7 Radiation proctitis; T45.1X5A Adverse effect of antineoplastic and immunosuppressive drugs, initial encounter; N18.30 Chronic kidney disease, stage 3 unspecified; E86.0 Dehydration; I49.5 Sick sinus syndrome; Z95.0 Presence of cardiac pacemaker; Z79.01 Long term (current) use of anticoagulants; Z87.891 Personal history of nicotine dependence; Z79.899 Other long term (current) drug therapy
CPT/HCPCS: 36415; 37244; 71045; 74018; 74174; 74176; 76937; 80048; 80053; 80076; 81001; 82272; 82550; 82570; 83690; 83735; 83935; 84300; 84484; 85007; 85014; 85018; 85025; 85027; 85610; 86850; 86900; 86901; 86923; 87040; 87086; 87493; 87507; 92950; 93005; 97162; 99152; 99153; 99285; C1758; C1769; C1894; J1170; J1450; J2405; J3430; P9016; Q9967

== ENCOUNTER 2022-11-09 15:37 | Outpatient (BNV) | payer OTHER, SELFPAY | END 2022-11-20 16:58 | PROVIDERS: Admitting Provider Student in an Organized Health Care Education/Training Program; Emergency Provider Emergency Medicine; PCP Internal Medicine; Visit Provider Radiology Vascular & Interventional Radiology | DX: K62.5 Hemorrhage of anus and rectum (principal) | CPT/HCPCS: 36245; 36246; 36248; 37244; 75726; 76937; 99152 ==

== ENCOUNTER → 2022-11-09 15:37 | Outpatient (BNV) | payer OTHER, SELFPAY | PROVIDERS: Admitting Provider Student in an Organized Health Care Education/Training Program; Emergency Provider Emergency Medicine; PCP Internal Medicine; Visit Provider Internal Medicine Gastroenterology | DX: K62.5 Hemorrhage of anus and rectum (principal) | CPT/HCPCS: 45334; 99232 ==

== ENCOUNTER → 2022-11-09 15:37 | Outpatient (BNV) | payer OTHER, SELFPAY | PROVIDERS: Admitting Provider Student in an Organized Health Care Education/Training Program; Emergency Provider Emergency Medicine; PCP Internal Medicine; Visit Provider Internal Medicine Medical Oncology | DX: D01.2 Carcinoma in situ of rectum (principal) | CPT/HCPCS: 99222 ==

== ENCOUNTER → 2022-11-09 15:37 | Outpatient (BNV) | payer OTHER, SELFPAY | PROVIDERS: Admitting Provider Student in an Organized Health Care Education/Training Program; Emergency Provider Emergency Medicine; Visit Provider Student in an Organized Health Care Education/Training Program | DX: K56.0 Paralytic ileus (principal); C20 Malignant neoplasm of rectum; B37.0 Candidal stomatitis; N17.9 Acute kidney failure, unspecified; K92.2 Gastrointestinal hemorrhage, unspecified; Z79.01 Long term (current) use of anticoagulants; I48.0 Paroxysmal atrial fibrillation | CPT/HCPCS: 99223; 99232; 99233; 99239; 99499 ==

== ENCOUNTER → 2022-11-09 15:37 | Outpatient (BNV) | payer OTHER, SELFPAY | PROVIDERS: Admitting Provider Student in an Organized Health Care Education/Training Program; Emergency Provider Emergency Medicine; PCP Internal Medicine; Visit Provider Surgery | DX: K56.0 Paralytic ileus (principal) | CPT/HCPCS: 99222; 99231; 99232 ==

== ENCOUNTER 2022-12-20 10:56 | Outpatient (AMB) | payer OTHER, SELFPAY ==
--- NOTE | 2022-12-20 10:57 | A.OFFVIS_ITS ---
Intake Intake Visit Reasons: 6m/US(set) Intake Note: Patient is present via telephone for Ultrasound Results Urology Med: None Antibiotic Allergy: None Blood Thinner: None Mold Capper Required: Yes Mold Capper Language: Software Applications Engineer Name: Joshua Eugene-[facility] Information Interpreted: non-clinical & clinical Accompanied by: Self / Same As Patient Allergies No Known Allergies [NKA] Allergy (Mild, Verified 12/20/22 11:35) NOT APPLICABLE Medication List - Last Reconciled 12/20/22 by NOE Sagastume calcium carbonate-vitamin D3 500 mg-10 mcg (400 unit) (Calcium 500 + D) 1 tab PO BID capecitabine 1,000 mg (2 x 500 mg) PO BID diltiazem HCl (Cardizem CD) 180 mg See Protocol PO DAILY loperamide 4 mg (2 x 2 mg) PO Q4H PRN metoprolol tartrate 100 mg See Protocol PO BID 90 days omeprazole 20 mg PO BID@0630,1630 ondansetron 8 mg PO Q12H oxycodone 5 mg PO Q6H PRN oxycodone 5 mg PO Q4H PRN HPI HPI Comments History of Present Illness Details Mehran is a pleasant 77-year-old male patient of Dr. Nolan. He is being followed up on today via telehealth for his left renal mass. He has a past medical history of osteoarthritis, borderline hyperlipidemia, obesity, hypertension, ETOH dependence, mild cognitive impairment, AFib, hypercholesteremia, and hypertension. When asked he reports to be doing and feeling well. Exophytic complex hypoechoic focus along the left renal upper pole measuring 1.2 x 1.1 x 1.2 cm corresponding to a exophytic heterogeneous focus seen on prior cross-sectional imaging. Simple appearing cystic foci in the left kidney are noted the largest measuring up to 1.1 cm in the interpolar region, not requiring follow-up per radiology report. He denies any urological issues or concerns at this time. He denies urinary urgency, urinary frequency, incontinence, nocturia, hematuria, dysuria, foul smelling urine, changes to urinary stream, flank pain, fever, and or chills. He is happy with his current voiding parameters. He otherwise offers no other issues or concerns at this time. Renal cancer Detected incidentally during evaluation Imaging - 05/03 CT scan left lateral exophytic 1. 2 cm lesion minimal change in size since May 2020 - 05/03 MRI contrast 1.5 cm left lateral exophytic mid pole lesion consistent with renal cancer papillary - 11/03 renal ultrasound 1.3 cm minimal c hange - 05/04 renal ultrasound 1.2 cm left cindi l lesion stable -11/04 renal ultrasound 1.2 cm left renal lesion stable Discussed continuing with every 6 months surveillance imaging Should lesion increase in size to around 2 cm would then proceed with cryotherapy [facility] Medical History Aftercare following left shoulder joint replacement surgery Pacemaker OA (osteoarthritis) Borderline hyperlipidemia Obesity HTN (hypertension) EtOH dependence Mild cognitive impairment Inhibited sex excitement Atrial fibrillation Cancer of kidney High cholesterol Hypertension Family History Mother Heart problem Social History Household Members: Spouse Housing: House Do you presently have visiting nurse or other home services: No Alcohol intake: former Patient Tobacco Use Status: Former Tobacco user service: Yes Review of Systems Const Reports as per HPI Eyes Reports no additional complaints ENT Reports no additional complaints Card Reports as per HPI Resp Reports no additional complaints GI Reports as per HPI Reports as per HPI Musc Reports as per HPI Neuro Reports no additional complaints Psych Reports no additional complaints Endo Reports no additional complaints Physical Exam Const General: cooperative Orientation/consciousness: patient oriented x3 Resp Effort & Inspection: able to speak in complete sentences Neuro General: patient oriented x3 Psych Speech and movement: Clear speech present Attitude: cooperative Thought content: Normal thought content present Insight: Fair insight present (Psych) Results Reviewed Results Reviewed: Date of Service: 11/06/22 EXAMINATION: US RETROPERITONEAL LIMITED (RENAL ONLY) FINDINGS: RIGHT KIDNEY: 9.9 x 5.5 x 5.8 cm (SAG x AP x TRV). The kidney is normal in size and echogenicity. Renal cortical thickness is normal. No calculi or focal parenchymal lesions. No hydronephrosis. LEFT KIDNEY: 10.4 x 5.0 x 4.0 cm (SAG x AP x TRV). The kidney is normal in size and echogenicity. Renal cortical thickness is normal. No renal calculi or hydronephrosis. Exophytic complex hypoechoic focus along the left renal upper pole measuring 1.2 x 1.1 x 1.2 cm. Simple appearing cystic foci in the left kidney are noted the largest measuring up to 1.1 cm in the interpolar region. IMPRESSION: 1. Exophytic complex hypoechoic focus along the left renal upper pole measuring 1.2 x 1.1 x 1.2 cm corresponding to a exophytic heterogeneous focus seen on prior cross-sectional imaging 2. Simple appearing cystic foci in the left kidney are noted the largest measuring up to 1.1 cm in the interpolar region, not requiring follow-up. Assessment & Plan Assessment & Plan (1) Renal cyst: Code(s): N28.1 - Cyst of kidney, acquired Plan Recent renal imaging results reviewed with the patient today; as noted above; stable. Patient denies any bothersome urinary issues or concerns at this time. Patient reports to be happy with current voiding parameters. Will continue with surveillance monitoring as discussed. Renal ultrasound in 6 months. PSA in 6 months. Follow-up in 6 months with imaging and labs to be completed prior; or sooner with any issues, concerns, and or questions. Orders: Orders Prostate Specific Antigen 364 Days N40.0 - Benign prostatic hyperplasia without lower urinary tract symptoms Prostate Specific Antigen 6 Months N40.0 - Benign prostatic hyperplasia without lower urinary tract symptoms US renal BI 6 Months N20.0 - Calculus of kidney, N28.1 - Cyst of kidney, acquired Patient Instructions: The patient had an opportunity to ask questions regarding the treatment plan. All questions were answered. Physical exam, labs, and imaging were discussed and reviewed in detail. As well as risks, benefits, and discussion of treatment choices. No major barriers to understanding were identified. The patient expressed understanding and agreement with the above treatment plan. The patient was made aware they should contact our office by phone for worsening of their current condition, the appearance of new symptoms, or with any questions or concerns. Compliance is encouraged with any medications and follow up testing that is ordered. It is a privilege to be allowed the opportunity to participate in? your urological care.? Again, if you have any questions or concerns If you have any questions or concerns please do not hesitate to contact me. The office is [phone]. This note is constructed using voice recognition software. While every effort has been made to ensure accuracy microfilmer errors may have been included. Yours sincerely, ASHLEY Sagastume- Telehealth Telehealth Location of provider rendering services: practice address Location of patient: address on file Patient Identification confirmed using: Name, : Yes Telehealth method: voice only Patient verbally consented to treatment: Yes Patient verbally consented to billing insurance company: Yes Patient informed of any privacy concerns related to visit: Yes Minutes spent on Phone/Video with Pt.: 15 Coding Level of Care Code Tele Est Pt Level 3 (76576) Diagnoses Renal cyst N28.1 Time Spent (min) 15
== END 2022-12-20 11:57 | disposition home or self-care (01) ==
LOC: HO.HUSH 10:57
PROVIDERS: PCP Internal Medicine; Visit Provider Nurse Practitioner Family
DX: N28.1 Cyst of kidney, acquired (principal)
CPT/HCPCS: 99213

== ENCOUNTER → 2022-12-20 10:56 | Outpatient (BNVA) | payer OTHER, SELFPAY | PROVIDERS: PCP Internal Medicine; Visit Provider Nurse Practitioner Family ==

== ENCOUNTER → 2022-12-25 23:59 | Outpatient (BNV) | payer OTHER, SELFPAY ==
--- NOTE | 2022-12-29 15:22 | A.OFFVIS_ITS ---
Intake Intake Visit Reasons: Remote Device Check- [facility] Allergies No Known Allergies [NKA] Allergy (Mild, Verified 12/20/22 11:35) NOT APPLICABLE PFSH Medical History Aftercare following left shoulder joint replacement surgery Pacemaker OA (osteoarthritis) Borderline hyperlipidemia Obesity HTN (hypertension) EtOH dependence Mild cognitive impairment Inhibited sex excitement Atrial fibrillation Cancer of kidney High cholesterol Hypertension Family History Mother Heart problem Social History Household Members: Spouse Housing: House Do you presently have visiting nurse or other home services: No Alcohol intake: former Patient Tobacco Use Status: Former Tobacco user service: Yes Office Procedures Cardiac Device Check Cardiac Device Check Details: Date of service- 12/25/2022 ; Battery life >9 years; normal lead parameters; AP 50%; SALVAGE ENGINEERING TECHNICIAN <1%; AT/AF burden 3.5%; rates mostly seem controlled. Overall normal device function. [id number] Cardiac Device Interrogation, pacemaker Procedure code (CPT) selection complete Assessment & Plan Assessment & Plan (1) Atrial fibrillation with rapid ventricular response: Code(s): I48.91 - Unspecified atrial fibrillation (2) Sick sinus syndrome: Code(s): I49.5 - Sick sinus syndrome (3) Sinus bradycardia: Code(s): R00.1 - Bradycardia, unspecified Coding Level of Care Code Procedure Only Diagnoses Atrial fibrillation with rapid ventricular response I48.91 Sick sinus syndrome I49.5 Sinus bradycardia R00.1 CPT Codes Cardiac Device Check - Cardiac Device 12: [id number] Cardiac Device Interrogation, pacemaker ([id number])
== END ==
PROVIDERS: PCP Internal Medicine; Visit Provider Internal Medicine
DX: I49.5 Sick sinus syndrome (principal); Z95.0 Presence of cardiac pacemaker
CPT/HCPCS: 93294

== ENCOUNTER 2022-12-27 09:00 | Outpatient (REF) | payer OTHER, SELFPAY ==
--- NOTE | ~2022-12-27 | CT_ITS ---
EXAMINATION: CT ABDOMEN AND PELVIS WITH CONTRAST CLINICAL INFORMATION: Rectal cancer. COMPARISON: CT abdomen and pelvis 11/22/2022. TECHNIQUE: Multidetector volumetric images were obtained from the superior aspect of the liver through the pubic symphysis following administration 85 mL of Omnipaque 350 intravenous contrast. Sagittal and coronal reformatted images were obtained on the technologist's workstation. Oral contrast: No This CT examination was performed using dose optimization techniques as appropriate, variously including the following: *Automated exposure control *Adjustment of mA and/or kV according to patient size (this includes techniques or standardized protocols for targeted exams where dose is matched to indication/reason for exam; i.e. extremities or head) *Use of iterative reconstruction technique DLP: 406 mGy-cm FINDINGS: LUNG BASES: The visualized lung bases are unremarkable. LIVER, GALLBLADDER, AND BILIARY TREE: No suspicious liver mass. No ductal dilatation. Calcification in the right hepatic lobe is stable. Contracted with probable small choleliths. PANCREAS: No change in mildly prominent pancreatic duct in the pancreatic head. No discrete pancreatic mass or parenchymal atrophy. SPLEEN: Unremarkable. ADRENAL GLANDS: No adrenal mass. KIDNEYS AND URETERS: Again seen is a nonspecific partially exophytic mass in the mid left kidney measuring 1.5 cm with internal attenuation of 78 HU. This may represent a complex hyperdense cyst versus a solid mass. No discrete nephrolithiasis. No hydronephrosis. Mild nonspecific hydroureter. BLADDER: Decompressed but appears diffusely thick-walled. GASTROINTESTINAL TRACT: Small hiatal hernia. The small bowel is normal in caliber. The appendix is normal. Mild diverticulosis of the colon. Diffuse circumferential thickening of the rectum consistent with the clinical history of rectal cancer. ABDOMINAL WALL: Small fat-containing right inguinal hernia. LYMPH NODES: No retroperitoneal or mesenteric adenopathy. No pelvic sidewall adenopathy. No inguinal adenopathy. VASCULAR: Moderate aortoiliac atherosclerosis. No aortic aneurysm. PELVIC VISCERA: The prostate measures 4.2 x 3.5 x 4.3 cm, approximately 30 mL. OSSEOUS STRUCTURES: Degenerative changes in the spine. No suspicious osseous lesions. Sclerotic density in the right iliac bone, superior right pubic ramus, and right femoral head are unchanged to 05/25/2020 and consistent with bone islands. CT/CT abdomen pelvis w IV con IMPRESSION: Diffuse thickening of the rectum consistent with the clinical history of rectal cancer. No evidence of metastatic disease. Stable 1.5 cm nonspecific mass in the mid left kidney may represent a complex hyperdense cyst versus a solid enhancing mass. Neoplasm not excluded. Stable dilated pancreatic duct in the pancreatic head. Neoplasm such as IPMN not excluded. Fleischner guidelines were followed.
[2022-12-27] MEDS: iohexoL 350 MG/ML 100 ML INFUS..BTL IV (11:57)
== END 2022-12-27 09:01 | disposition home or self-care (01) ==
LOC: HO.CT 09:00
PROVIDERS: PCP Internal Medicine; Visit Provider Internal Medicine Medical Oncology
DX: K62.89 Other specified diseases of anus and rectum (principal)
CPT/HCPCS: 74177; Q9967

== ENCOUNTER 2023-01-15 12:20 | Outpatient (AMB) | payer OTHER, SELFPAY ==
--- NOTE | 2023-01-15 13:03 | A.OFFVIS_ITS ---
Intake Vital Signs 01/15/23 13:04 Height 5 ft 10 in Weight 179 lb 7.3 oz BMI 25.7 BP 124/62 Blood Pressure Location Lt brachial Position Sitting Pulse 64 Intake Visit Reasons: f/up / [facility] pacer ck Medical Voucher Clerk Required: Yes Medical Voucher Clerk Language: Eritrean Allergies No Known Allergies [NKA] Allergy (Mild, Verified 01/15/23 13:06) NOT APPLICABLE Medication List - Last Reconciled 01/15/23 by Divina Hassan METAL MOCKUP MAKER-C calcium carbonate-vitamin D3 500 mg-10 mcg (400 unit) (Calcium 500 + D) 1 tab PO BID capecitabine 1,000 mg (2 x 500 mg) PO BID diltiazem HCl (Cardizem CD) 180 mg See Protocol PO DAILY loperamide 4 mg (2 x 2 mg) PO Q4H PRN metoprolol tartrate 100 mg See Protocol PO BID 90 days omeprazole 20 mg PO BID@0630,1630 oxycodone 5 mg PO Q6H PRN HPI f/up / [facility] pacer ck HPI Details Mehran is a 77-year-old male with past medical history of hypertension, hyperlipidemia, sick sinus syndrome, dual-chamber pacemaker, paroxysmal atrial fibrillation, anemia/GI bleed, rectal CA who was recently admitted to [facility] with ANIL and lisinopril was stopped, rectal bleeding and Eliquis was stopped. He now presents for follow-up. Today he reports that he has been doing well over the last month since his hospital discharge. He has not had any recurrent bleeding. He is undergoing radiation therapy. He had been experiencing abdominal discomfort at the time of his admission and it was thought to be related from his chemotherapy agent which was stopped. He denies chest discomfort at rest or with activity. No concerning shortness of breath. No palpitations, presyncope, syncope, PND, orthopnea or edema. He is taking all meds as directed. He remains off Eliquis at this time. FOR[facility]LY [facility], [facility] Medical History Aftercare following left shoulder joint replacement surgery Pacemaker OA (osteoarthritis) Borderline hyperlipidemia Obesity HTN (hypertension) EtOH dependence Mild cognitive impairment Inhibited sex excitement Atrial fibrillation Cancer of kidney High cholesterol Hypertension Family History Mother Heart problem Social History Household Members: Spouse Housing: House Do you presently have visiting nurse or other home services: No Alcohol intake: former Comment: refusing alarms Patient Tobacco Use Status: Former Tobacco user service: Yes Review of Systems Const All systems reviewed & are unremarkable except as noted in HPI and below ENT Denies dizziness Card Denies chest pain, Denies chest pain at rest, Denies chest pain with activity, Denies rapid heart rate, Denies pedal edema, Denies edema, Denies leg edema, Denies lightheadedness, Denies palpitations, Denies dyspnea, Denies dyspnea on exertion and Denies orthopnea Resp Denies cough, Denies dyspnea and Denies dyspnea on exertion GI Denies hematochezia and Denies change in stool character Musc Denies abnormal gait, Denies limited range of motion, Denies muscle cramps, Denies muscle weakness, Denies numbness, Denies radiating pain into limb, Denies stiffness and Denies tingling Neuro Denies abnormal gait, Denies dizziness, Denies numbness and Denies tingling Endo Denies palpitations Physical Exam Vital Signs: Last Vital Signs Pulse 64 01/15/23 13:04 BP 124/62 01/15/23 13:04 BMI result Body Mass Index 25.7 Const General: cooperative, healthy appearing, comfortable and no acute distress Orientation/consciousness: patient oriented x3 Neck Neck: Yes normal visual inspection Resp Effort & Inspection: normal respiratory effort Auscultation: clear to auscultation bilaterally, no crackles, no rales, no rhonchi and no wheezes Cardio Jugular venous distension: no JVD Rate: regular rate Rhythm: regular rhythm Heart sounds: S1 normal heart sound present, S2 normal heart sound present, no murmurs and no rubs Neuro General: patient oriented x3 Extrem General: Yes normal to inspection Psych Appearance: grossly normal Mental Status: mental status grossly normal Speech and movement: Normal speech and movement present Office Procedures Cardiac Device Check Cardiac Device Check Details: [facility] dual-chamber pacemaker interrogation today, battery 9.4-11 years, DDD mode, low rate 60, RA threshold 0.5 volts at 0.4 milliseconds, RV threshold 0.5 volts at 0.4 milliseconds, episodes of AFib RVR, longest 40 minutes. A paced 47%, V paced less than 1%, [place]. [id number] Cardiac Device Check, pacemaker dual lead Procedure code (CPT) selection complete Assessment & Plan Assessment & Plan (1) PAF (paroxysmal atrial fibrillation): Code(s): I48.0 - Paroxysmal atrial fibrillation Plan: History of paroxysmal atrial fibrillation. Last EKG done 11/22/2022 did show atrial fibrillation, rate 103. Device interrogation today shows episodes of paroxysmal atrial fibrillation, longest recent episode 40 minutes on 01/12/2023. Episodes are usually brief and V rates are elevated. He is on metoprolol tartrate 100 mg b.i.d. and diltiazem 180 mg daily for heart rate control. Recent max V rate with AFib RVR 185. Will increase his diltiazem up to 240 mg daily. He had been on Eliquis for anticoagulation. He has a rectal mass/cancer with recent GI bleeding. He had a sigmoidoscopy when hospitalized showing a friable rectal mass. Eliquis was stopped at that time. Hospital discharge on 11/28 and last labs done 12/08/2022 shows hemoglobin stable at 9.4. Today he reports no signs of bleeding. Will check with his oncologist and GI specialist regarding potential restart of Eliquis. Stroke risk while off anticoagulation reviewed with him. He states understanding. Currently no reports of neurological changes. Cardiology follow-up 3-4 months, sooner if needed (2) Pacemaker: Code(s): Z95.0 - Presence of cardiac pacemaker Plan: [facility] dual-chamber pacemaker in place. Interrogation done today shows device is functioning normally. Battery 9.4-11 years. Remote monitoring in use as well. Next office interrogation due in 6 months (3) Sick sinus syndrome: Code(s): I49.5 - Sick sinus syndrome Plan: Pacemaker in place (4) HTN (hypertension): Code(s): I10 - Essential (primary) hypertension Plan: Well controlled at present. Increasing diltiazem dose due to AFib RVR. (5) Acute kidney injury: Code(s): N17.9 - Acute kidney failure, unspecified Plan: Recent hospital admission with ANIL, GI bleed. His lisinopril was stopped at that time. Last labs done 1027 shows creatinine 1.11, improved. Creatinine had been as high as 1.68. (6) Rectal mass: Comment: Patient under GI workup including colonoscopy which demonstrates a recently diagnosed rectal adenocarcinoma. Patient was made aware of this today. Current plan is to obtain a staging T3 MRI and direct further therapy regarding the rectal cancer based on the results of this. Spoke with [facility] and his permanent pacemaker is MRI compatible. Code(s): K62.89 - Other specified diseases of anus and rectum Plan: Follows with Dr. Gaxiola Coding Level of Care Code Est Pt Level 4 (39449) Diagnoses PAF (paroxysmal atrial fibrillation) I48.0 Pacemaker Z95.0 Sick sinus syndrome I49.5 HTN (hypertension) I10 Acute kidney injury N17.9 Rectal mass K62.89 CPT Codes Cardiac Device Check - Cardiac Device 2: [id number] Cardiac Device Check, pacemaker dual lead ([id number]) Time Spent (min) 28
[2023-01-15 13:04] VITALS: BP 124/62; PULSE 64; BMI 25.7
== END 2023-01-15 13:41 | disposition home or self-care (01) ==
PROVIDERS: PCP Internal Medicine; Visit Provider Nurse Practitioner Family
DX: I48.0 Paroxysmal atrial fibrillation (principal); Z95.0 Presence of cardiac pacemaker; I10 Essential (primary) hypertension; N17.9 Acute kidney failure, unspecified; K62.89 Other specified diseases of anus and rectum
CPT/HCPCS: 93280; 99214

== ENCOUNTER → 2023-01-15 12:20 | Outpatient (BNVA) | payer OTHER, SELFPAY | PROVIDERS: Visit Provider Nurse Practitioner Family | DX: Z45.018 Encounter for adjustment and management of other part of cardiac pacemaker (principal); I48.0 Paroxysmal atrial fibrillation; I49.5 Sick sinus syndrome; I10 Essential (primary) hypertension; N17.9 Acute kidney failure, unspecified; K62.89 Other specified diseases of anus and rectum | CPT/HCPCS: 93280; 99212 ==

== ENCOUNTER 2023-03-09 07:24 | Outpatient (REF) | payer OTHER, SELFPAY ==
--- NOTE | ~2023-03-09 | CT_ITS ---
EXAMINATION: CT CHEST WITH CONTRAST CLINICAL INFORMATION: Follow-up pulmonary nodule. COMPARISON: 05/09/2022 TECHNIQUE: Multidetector volumetric CT imaging of the chest was obtained after the administration of 65 mL of Omnipaque 350 intravenous contrast without immediate adverse reactions. Axial MIP volume rendering provided. Sagittal and coronal reformatted images were obtained. This CT examination was performed using dose optimization techniques as appropriate, variously including the following: *Automated exposure control *Adjustment of mA and/or kV according to patient size (this includes techniques or standardized protocols for targeted exams where dose is matched to indication/reason for exam; i.e. extremities or head) *Use of iterative reconstruction technique DLP: 144 mGy-cm FINDINGS: LUNGS: Mild centrilobular and paraseptal emphysema. 6 mm nodule in the medial right upper lobe on image 62 of series 6 is stable. 6 mm nodule along the right minor fissure on image 92 series 6 is stable. No new or enlarging pulmonary nodules. No focal consolidation. Central airways are patent. MEDIASTINUM: No bulky axillary, hilar or mediastinal lymphadenopathy. Great vessels are of normal caliber. Heart size is normal. No pericardial effusion. Moderate coronary artery calcifications. PLEURA: There is no pleural effusion. No pleural mass or thickening. UPPER ABDOMEN: Hepatic steatosis. Possible adenomyomatosis of the gallbladder fundus. There is 1 cm dilatation of the main pancreatic duct in the head of the pancreas. No peripancreatic stranding. No adrenal mass. Punctate nonobstructing calculus upper pole left kidney. OSSEOUS STRUCTURES: No destructive bone lesions. CT/CT chest w IV con IMPRESSION: Stable bilateral pulmonary nodules measuring up to 6 mm. These nodules have been stable since 05/25/2020. Follow-up as clinically indicated. Stable dilatation of the main pancreatic duct in the head of the pancreas. MRI abdomen performed on 04/18/2021 showed similar findings.
[2023-03-09] MEDS: iohexoL 350 MG/ML 75 ML INFUS..BTL 65 ML IV (08:01)
== END 2023-03-09 07:25 | disposition home or self-care (01) ==
LOC: HO.CT 07:24
PROVIDERS: PCP Internal Medicine; Visit Provider Internal Medicine Medical Oncology
DX: R91.8 Other nonspecific abnormal finding of lung field (principal)
CPT/HCPCS: 71260; Q9967

== ENCOUNTER 2023-04-05 14:19 | Emergency (ER) | payer OTHER, SELFPAY ==
[2023-04-05 14:31] VITALS: BP 162/68; PULSE 60; O2SAT 98
--- NOTE | 2023-04-05 15:08 | ED_ITS ---
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 No changes in blood pressure medication. Related Data Previous Rx's Medication Instructions Recorded metoprolol tartrate 100 mg tablet 100 mg PO BID 90 days #180 tabs 06/08/22 calcium carbonate 500 mg-vitamin 1 tab PO BID #60 tabs 11/16/22 D3 10 mcg (400 unit) tablet (Calcium 500 + D) loperamide 2 mg capsule 4 mg (2 x 2 mg) PO Q4H PRN 11/28/22 Diarrhea #90 caps oxycodone 5 mg tablet 5 mg PO Q6H PRN Breakthrough Pain, 12/08/22 Moderate #60 tabs capecitabine 500 mg tablet 1,000 mg (2 x 500 mg) PO BID #120 12/14/22 tabs omeprazole 20 mg capsule,delayed 20 mg PO BID@0630,1630 #60 caps 01/01/23 release diltiazem HCl 240 mg 240 mg PO DAILY #90 caps 01/16/23 capsule,extended release 24 hr Allergies Allergy/AdvReac Type Severity Reaction Status Date / Time No Known Allergies [NKA] Allergy Mild NOT Verified 02/27/23 14:39 APPLICABLE Review of Systems Review of Systems: Yes all other systems are reviewed and are negative Constitutional: Constitutional: Reports no additional constitutional complaints, Denies body ache(s), Denies chills, Denies fever(s), Denies headache(s) and Denies weakness Eyes: Eyes: Reports no additional eye complaints and Denies change in vision ENT: Reports system reviewed and no additional complaints, except as documented, Denies dizziness, Denies headache(s), Denies nasal congestion, Denies nasal discharge and Denies neck pain Cardiovascular: Cardiovascular: Reports no additional cardiovascular complaints, Denies chest pain, Denies leg edema and Denies dyspnea Respiratory: Respiratory: Reports no additional respiratory complaints, Denies cough and Denies dyspnea Gastrointestinal: Gastrointestinal: Reports no additional gastrointestinal complaints, Denies abdominal pain, Denies diarrhea, Denies nausea and Denies vomiting Genitourinary: Genitourinary: Denies urinary incontinence Musculoskeletal: Musculoskeletal: Reports no additional musculoskeletal complaints, Denies back pain, Denies arthralgias, Denies joint swelling, Denies neck pain, Denies numbness and Denies tingling Integumentary/Breasts: Skin/Breast: Reports system reviewed and no additional complaints, except as docu and Denies rash Neurologic: Reports system reviewed and no additional complaints, except as documented, Denies Abnormal speech present, Denies dizziness, Denies headache(s), Denies numbness, Denies tingling and Denies weakness PMFSH Past Medical History Attestation statement: The following information was validated with the patient. Source: old records reviewed and nursing notes reviewed Medical History Aftercare following left shoulder joint replacement surgery Pacemaker OA (osteoarthritis) Borderline hyperlipidemia Obesity HTN (hypertension) EtOH dependence Mild cognitive impairment Inhibited sex excitement Atrial fibrillation Cancer of kidney High cholesterol Hypertension Family History Family History Mother Heart problem Social History Social History Household Members: Spouse Housing: House Do you presently have visiting nurse or other home services: No Alcohol intake: former Comment: refusing alarms Patient Tobacco Use Status: Former Tobacco user service: Yes Physical Exam ED Const General: cooperative, healthy appearing, comfortable and no acute distress Orientation/consciousness: patient oriented x3 Limitations: no limitations HENMT Head: Yes normal to inspection Ears: hearing grossly normal bilaterally General nose exam: Normal external nose present Face and sinus: Yes normal facial exam Mouth: Normal oral and palatal mucosa present Throat: Yes posterior oropharynx normal Eyes General: appearance normal, both eyes and all related structures Pupils: Equal, round and reactive pupils present Neck Neck: Yes normal visual inspection Chest Chest palpation & inspection: normal inspection of the chest Resp Effort & Inspection: normal respiratory effort Cardio Peripheral pulses: Peripheral pulses 2+ throughout Back/Spine/Pelvis Thoracic/Lumbar Spine: thoracic and lumbar spine normal to inspection Skin General skin exam: no rashes or lesions noted Neuro General: patient oriented x3, no focal motor deficits and normal sensation to monofilament Cranial nerves: Yes Equal, round and reactive pupils present Cognition (Neuro): normal cognition Speech: No Abnormal speech present Gait exam (Neuro): Normal gait present Motor exam (neuro): 5/5 motor strength present throughout Extrem General: Yes normal to inspection Medical Decision Making Medical Decision Making MDM Narrative: 77 yo male with history of chronic HTN here with concern for elevated blood pressure at home although asymptomatic. No changes in blood pressure medication. In triage blood pressure with mild elevation although patient asymptomatic. No complaints. Will recommend f/u with PCP which the patient and family are comfortable with Differential Diagnosis Differential Diagnoses: The differential diagnosis associated with the presentation includes HTN Admission/Observation Consideration of admission/observation: Escalation of care including admission/observation considered Independent Historian Clinical information obtained from an independent historian. History obtained f rom or confirmed by: Other (son) Tests considered The following testing was considered but not selected: Asymptomatic HTN-no need for labs, EKG, CT head Chronic Conditions Patient?s care impacted by: Hypertension Discharge Plan Discharge Clinical Impression: HTN (hypertension) Patient Disposition: Home, Self-Care Instructions: Chronic Hypertension (DC) Prescriptions: No Action metoprolol tartrate 100 mg tablet 100 mg PO BID 90 Days Qty: 180 0RF Protocol: Hold for SBP/HR < HOLD for SBP < : 90 HOLD for HR < : 60 calcium carbonate-vitamin D3 [Calcium 500 + D] 500 mg-10 mcg (400 unit) Tablet 1 tab PO BID Qty: 60 4RF oxycodone 5 mg Tablet 5 mg PO Q6H PRN (Reason: Breakthrough Pain, Moderate) Qty: 60 0RF Rx Instructions: Partial Fill upon patient request. capecitabine 500 mg Tablet 1,000 mg PO BID Qty: 120 5RF Rx Instructions: take 1000 mg po bid days 1 to 5 per week, during radiation. must administer with water 30 minutes after a meal omeprazole 20 mg Capsule,Delayed Release(Dr/Ec) 20 mg PO BID@0630,1630 Qty: 60 0RF loperamide 2 mg Capsule 4 mg PO Q4H PRN (Reason: Diarrhea) Qty: 90 0RF diltiazem HCl 240 mg capsule,extended release 24hr 240 mg PO DAILY Qty: 90 3RF Rx Instructions: Dose increase from 180mg daily up to 240mg daily Referrals: Nhi Padilla MD [Physician] - 1 week
--- NOTE | 2023-04-05 15:18 | ED_ITS ---
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 Describes the dizziness as feeling foggy and denies feeling lightheaded, spinning, associated chest pain, shortness of breath, palpitations. Moved his bowels and tells me he felt better after that. Seen by EMS. Had normal BS with EMS. [place] fine during transport and now has no symptoms and wants to be discharged home. Related Data Previous Rx's Medication Instructions Recorded metoprolol tartrate 100 mg tablet 100 mg PO BID 90 days #180 tabs 06/08/22 calcium carbonate 500 mg-vitamin 1 tab PO BID #60 tabs 11/16/22 D3 10 mcg (400 unit) tablet (Calcium 500 + D) loperamide 2 mg capsule 4 mg (2 x 2 mg) PO Q4H PRN 11/28/22 Diarrhea #90 caps oxycodone 5 mg tablet 5 mg PO Q6H PRN Breakthrough Pain, 12/08/22 Moderate #60 tabs capecitabine 500 mg tablet 1,000 mg (2 x 500 mg) PO BID #120 12/14/22 tabs omeprazole 20 mg capsule,delayed 20 mg PO BID@0630,1630 #60 caps 01/01/23 release diltiazem HCl 240 mg 240 mg PO DAILY #90 caps 01/16/23 capsule,extended release 24 hr Allergies Allergy/AdvReac Type Severity Reaction Status Date / Time No Known Allergies [NKA] Allergy Mild NOT Verified 04/05/23 15:18 APPLICABLE Review of Systems Review of Systems: Yes all other systems are reviewed and are negative Constitutional: Constitutional: Reports no additional constitutional complaints, Denies body ache(s), Denies chills, Denies fever(s), Denies headache(s) and Denies weakness Eyes: Eyes: Reports no additional eye complaints and Denies change in vision ENT: Reports system reviewed and no additional complaints, except as documented, Reports dizziness, Denies headache(s), Denies nasal congestion, Denies nasal discharge and Denies neck pain Cardiovascular: Cardiovascular: Reports no additional cardiovascular complaints, Denies chest pain, Denies leg edema and Denies dyspnea Respiratory: Respiratory: Reports no additional respiratory complaints, Denies cough and Denies dyspnea Gastrointestinal: Gastrointestinal: Reports no additional gastrointestinal complaints, Denies abdominal pain, Denies diarrhea, Denies nausea and Denies vomiting Genitourinary: Genitourinary: Denies urinary incontinence Musculoskeletal: Musculoskeletal: Reports no additional musculoskeletal complaints, Denies back pain, Denies arthralgias, Denies joint swelling, Denies neck pain, Denies numbness and Denies tingling Integumentary/Breasts: Skin/Breast: Reports system reviewed and no additional complaints, except as docu and Denies rash Neurologic: Reports system reviewed and no additional complaints, except as documented, Denies Abnormal speech present, Reports dizziness, Denies headache(s), Denies numbness, Denies tingling and Denies weakness PMFSH Past Medical History Attestation statement: The following information was validated with the patient. Source: old records reviewed and nursing notes reviewed Medical History Aftercare following left shoulder joint replacement surgery Pacemaker OA (osteoarthritis) Borderline hyperlipidemia Obesity HTN (hypertension) EtOH dependence Mild cognitive impairment Inhibited sex excitement Atrial fibrillation Cancer of kidney High cholesterol Hypertension Family History Family History Mother Heart problem Social History Social History Household Members: Spouse Housing: House Do you presently have visiting nurse or other home services: No Alcohol intake: former Comment: refusing alarms Patient Tobacco Use Status: Former Tobacco user service: Yes Physical Exam Vital Signs: Vital Signs: Last Vital Signs Temp 98.1 F 04/05/23 15:19 Pulse 61 04/05/23 15:19 Resp 16 04/05/23 15:19 BP 126/55 L 04/05/23 15:19 Pulse Ox 97 04/05/23 15:19 O2 Del Method Room Air 04/05/23 15:19 BMI result Body Mass Index 26.8 Const: General: cooperative, healthy appearing, comfortable and no acute distress Orientation/consciousness: patient oriented x3 Limitations: no limitations HEENT: Head: Yes normal to inspection Ears: hearing grossly normal bilaterally and TM's normal bilaterally General nose exam: Normal external nose present Face and sinus: Yes normal facial exam Mouth: Normal oral and palatal mucosa present Throat: Yes posterior oropharynx normal, Yes tonsils normal and Yes uvula midline Eyes: General: appearance normal, both eyes and all related structures Pupils: Equal, round and reactive pupils present Neck: Neck: Yes normal visual inspection, Yes full ROM, Yes no lymphadenopathy and Yes no meningeal signs Chest: Chest palpation & inspection: normal inspection of the chest Resp: Effort & Inspection: normal respiratory effort Auscultation: clear to auscultation bilaterally Cardio: Rate: regular rate Rhythm: regular rhythm Peripheral pulses: Peripheral pulses 2+ throughout GI: Inspection: Yes normal to inspection Palpation (GI): Soft to palpation and nontender Auscultation: normal bowel sounds Back/Spine/Pelvis: Thoracic/Lumbar Spine: thoracic and lumbar spine normal to inspection Skin: General skin exam: no rashes or lesions noted Neuro: General: patient oriented x3, moves all extremities, no meningeal signs, no focal motor deficits and normal sensation to monofilament Cranial nerves: Yes CN's II-XII intact bilaterally, Yes Equal, round and reactive pupils present, Yes Bilaterally intact EOM present, Yes Nystagmus not present, Yes Normal facial strength present and Yes Midline tongue present Cognition (Neuro): normal cognition Speech: No Abnormal speech present Gait exam (Neuro): Normal gait present Motor exam (neuro): 5/5 motor strength present throughout Sensory Exam: Normal double simultaneous stimulation for sensation Extrem: General: Yes normal to inspection, Yes no pedal edema and Yes no calf tenderness NIH Stroke Scale Internal: Initial- Upon Arrival Level of Consciousness: Alert Level of Consciousness Questions: Answers both questions correctly Level of Consciousness Commands: Performs both tasks correctly Best Gaze: Normal Visual: No visual loss Facial Palsy: Normal Motor Arm (Right): No drift Motor Arm (Left): No drift Motor Leg (Right): No drift Motor Leg (Left): No drift Limb Ataxia: Absent Sensory: Normal Best Language: No aphasia Dysarthia: Normal Extinction and Inattention: No abnormality Score: 0 Course Course Course Narrative: This is a rapid medical exam. Deferred additional HPI, ROS, PE to primary provider. 77 yo male with history of HTN, pacemaker Medical Decision Making Medical Decision Making MDM Narrative: 77 yo male with history of HTN, pacemaker, afib on AC therapy, rectal cancer in remission here with complaints of episode of dizziness while driving which last five minutes then resolved. Describes the dizziness as feeling foggy and denies feeling lightheaded, spinning, associated chest pain, shortness of breath, palpitations. Moved his bowels and tells me he felt better after that. Seen by EMS. Had normal BS with EMS. [place] fine during transport and now has no symptoms and wants to be discharged home. NIH 0. normal neuro exam with no focal deficits. VSS No symptoms and desires to go home and follow-up with his PCP for any continued episodes. He will return for any worsening symptoms. He declined labs, EKG and imaging as he feels back to normal. Differential Diagnosis Differential Diagnoses: The differential diagnosis associated with the presentation includes Low suspicion for ICH, CVA, ACS Admission/Observation Consideration of admission/observation: Escalation of care including admission/observation considered Independent Historian Clinical information obtained from an independent historian. History obtained from or confirmed by: EMS Tests considered The following testing was considered but not selected: See discussion above-patient declined all testing Discharge Plan Discharge Clinical Impression: Dizziness Patient Disposition: Home, Self-Care Instructions: Dizziness (ED) Prescriptions: No Action metoprolol tartrate 100 mg tablet 100 mg PO BID 90 Days Qty: 180 0RF Protocol: Hold for SBP/HR < HOLD for SBP < : 90 HOLD for HR < : 60 calcium carbonate-vitamin D3 [Calcium 500 + D] 500 mg-10 mcg (400 unit) Tablet 1 tab PO BID Qty: 60 4RF oxycodone 5 mg Tablet 5 mg PO Q6H PRN (Reason: Breakthrough Pain, Moderate) Qty: 60 0RF Rx Instructions: Partial Fill upon patient request. capecitabine 500 mg Tablet 1,000 mg PO BID Qty: 120 5RF Rx Instructions: take 1000 mg po bid days 1 to 5 per week, during radiation. must administer with water 30 minutes after a meal omeprazole 20 mg Capsule,Delayed Release(Dr/Ec) 20 mg PO BID@0630,1630 Qty: 60 0RF loperamide 2 mg Capsule 4 mg PO Q4H PRN (Reason: Diarrhea) Qty: 90 0RF diltiazem HCl 240 mg capsule,extended release 24hr 240 mg PO DAILY Qty: 90 3RF Rx Instructions: Dose increase from 180mg daily up to 240mg daily Referrals: Nhi Padilla MD [Physician] - 1 week
[2023-04-05 15:19] VITALS: BP 126/55; PULSE 61; RESP 16; TEMP 36.7; O2SAT 97; BMI 26.8
== END 2023-04-05 16:04 | disposition home or self-care (01) ==
PROVIDERS: Emergency Provider Emergency Medicine; PCP Internal Medicine
DX: R42 Dizziness and giddiness (principal)
CPT/HCPCS: 99282

== ENCOUNTER 2023-04-30 14:05 | Outpatient (REF) | payer OTHER, SELFPAY ==
--- NOTE | ~2023-04-30 | CT_ITS ---
EXAMINATION: CT ABDOMEN AND PELVIS WITH CONTRAST CLINICAL INFORMATION: Follow-up on rectal cancer after chemoradiation COMPARISON: 12/27/2022 TECHNIQUE: Multidetector volumetric imaging was performed from the superior aspect of the liver through the pubic symphysis following administration of 85 mL Omnipaque 300 intravenous contrast. Sagittal and coronal reformatted images were obtained on the technologist workstation.. This CT examination was performed using dose optimization techniques as appropriate, variously including the following: *Automated exposure control *Adjustment of mA and/or kV according to patient size (this includes techniques or standardized protocols for targeted exams where dose is matched to indication/reason for exam; i.e. extremities or head) *Use of iterative reconstruction technique DLP: 570 mGy-cm FINDINGS: LUNG BASES: The visualized lung bases are unremarkable. Pacemaker leads partially visualized. LIVER, GALLBLADDER, AND BILIARY TREE: Mild diffuse fatty infiltration of the liver but no focal hepatic lesions nor biliary ductal dilatation. There is coarsened calcification in lateral segment 5 the liver again noted. No biliary ductal dilatation. Gallbladder is partially contracted. There is likely a focal region of adenomyomatosis at gallbladder fundus similar to the prior study. No pericholecystic inflammatory changes or fluid. PANCREAS: There is chronic fullness to the pancreatic duct in the pancreatic neck region similar to the prior study. Pancreatic duct is otherwise followed up to the ampulla. No peripancreatic inflammatory changes or fluid. SPLEEN: Unremarkable. ADRENAL GLANDS: Unremarkable. KIDNEYS AND URETERS: There is a partially exophytic hypodense structure in the lateral midpole of the left kidney. I'm uncertain if this represents a hyperdense cyst or a solid mass. This has been present on prior studies as well. No hydronephrosis, hydroureter, or perinephric stranding. No calculi. BLADDER: Bladder is decompressed which may explain the concentric bladder wall thickening. Grossly this appears similar to the prior CT scan as well. Underlying cystitis could have this appearance and should be clinically correlated. In theory this may reflect post radiation treatment change in the pelvis which could be clinically correlated. GASTROINTESTINAL TRACT: Posttreatment changes seen in the rectum likely reflecting postradiation changes in the rectum and perirectal fat. There is scattered colonic diverticulosis but no evidence for diverticulitis. No obstructive changes to the bowel. Normal-appearing appendix in the right lower quadrant. Visualized small bowel grossly unremarkable. ABDOMINAL WALL: No significant hernia is appreciated. LYMPHOVASCULAR STRUCTURES: Vascular calcification within the aorta iliac system. No bulky retroperitoneal or mesenteric adenopathy PELVIC VISCERA: Unremarkable. OSSEOUS STRUCTURES: Multilevel degenerative changes in the spine again noted CT/CT abdomen pelvis w IV con IMPRESSION: 1. Chronic appearing and postoperative changes as described above. There is concentric bladder wall thickening similar to the prior study. This could be seen in the setting of cystitis or postradiation changes in the pelvis and should be clinically correlated. 2. There is a hypodense structure in the lateral midpole of the left kidney which has been present and evaluated on prior studies as well. This could be clinically correlated with the prior dedicated studies of this lesion.
[2023-04-30] MEDS: Barium Sulfate Oral (Mocha) 450 ML ORAL.SUSP PO ×2 (16:22→16:23)
[2023-04-30] MEDS: iohexoL 350 MG/ML 100 ML INFUS..BTL 85 ML IV (16:43)
== END 2023-04-30 14:06 | disposition home or self-care (01) ==
LOC: HO.CT 14:05
PROVIDERS: PCP Internal Medicine; Visit Provider Internal Medicine Medical Oncology
DX: C20 Malignant neoplasm of rectum (principal)
CPT/HCPCS: 74177; Q9967

== ENCOUNTER 2023-05-04 12:30 | Outpatient (AMB) | payer OTHER, SELFPAY ==
--- NOTE | 2023-05-04 13:01 | A.OFFVIS_ITS ---
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 Night Warehouse Manager Language: Tajik Allergies No Known Allergies [NKA] Allergy (Mild, Verified 05/04/23 13:05) NOT APPLICABLE Medication List - Last Reconciled 05/04/23 by Divina Hassan NP-C ascorbic acid (vitamin C) (Vitamin C) 250 mg (1/2 x 500 mg) PO BID calcium carbonate-vitamin D3 500 mg-10 mcg (400 unit) (Calcium 500 + D) 1 tab PO BID diltiazem HCl 240 mg PO DAILY ferrous sulfate 325 mg PO BID loperamide 4 mg (2 x 2 mg) PO Q4H PRN metoprolol tartrate 100 mg See Protocol PO BID 90 days omeprazole 20 mg PO BID@0630,1630 HPI 3+ mth f/up HPI Details Mehran is a 77-year-old male with past medical history of hypertension, hyperlipidemia, sick sinus syndrome, dual-chamber pacemaker, paroxysmal atrial fibrillation, anemia/GI bleed, rectal CA who was admitted to [facility] 11/2022 with ANIL and lisinopril was stopped, rectal bleeding and Eliquis was stopped. On 01/19/23 he was instructed to restart Eliquis. Labs done showed Hgb 8.4. Today he reports that he has been doing well over the last few months. He tells me that his cancer is stable. He had an MRI of his stomach this past week and is waiting the results. He has not had any recurrent issues with rectal bleeding. His recent hemoglobin level did come down however he states he was started on vitamins by Dr. Gaxiola. He denies chest discomfort at rest or with activity. No concerning shortness of breath. No palpitations, presyncope, syncope, PND, orthopnea or edema. He is taking all meds as directed. [facility] Medical History Aftercare following left shoulder joint replacement surgery Pacemaker OA (osteoarthritis) Borderline hyperlipidemia Obesity HTN (hypertension) EtOH dependence Mild cognitive impairment Inhibited sex excitement Atrial fibrillation Cancer of kidney High cholesterol Hypertension Family History Mother Heart problem Social History Household Members: Spouse Housing: House Do you presently have visiting nurse or other home services: No Alcohol intake: former Comment: refusing alarms Patient Tobacco Use Status: Former Tobacco user Advance Directives Date on File: 11/29/22 service: Yes Review of Systems Const All systems reviewed & are unremarkable except as noted in HPI and below ENT Denies dizziness Card Denies chest pain, Denies chest pain at rest, Denies chest pain with activity, Denies rapid heart rate, Denies pedal edema, Denies edema, Denies leg edema, Denies lightheadedness, Denies palpitations, Denies dyspnea, Denies dyspnea on exertion and Denies orthopnea Resp Denies cough, Denies dyspnea and Denies dyspnea on exertion GI Denies hematochezia and Denies change in stool character Musc Denies abnormal gait, Denies limited range of motion, Denies muscle cramps, Denies muscle weakness, Denies numbness, Denies radiating pain into limb, Denies stiffness and Denies tingling Neuro Denies abnormal gait, Denies dizziness, Denies numbness and Denies tingling Endo Denies palpitations Physical Exam Vital Signs: Last Vital Signs Pulse 58 05/04/23 13:02 BP 120/54 L 05/04/23 13:02 BMI result Body Mass Index 29.0 Const General: cooperative, healthy appearing, comfortable and no acute distress Orientation/consciousness: patient oriented x3 Neck Neck: Yes normal visual inspection Resp Effort & Inspection: normal respiratory effort Auscultation: clear to auscultation bilaterally, no crackles, no rales, no rhonchi and no wheezes Cardio Jugular venous distension: no JVD Rate: regular rate Rhythm: regular rhythm Heart sounds: S1 normal heart sound present, S2 normal heart sound present, no murmurs and no rubs Neuro General: patient oriented x3 Extrem General: Yes normal to inspection, No no pedal edema and No calf tenderness Psych Appearance: grossly normal Mental Status: mental status grossly normal Speech and movement: Normal speech and movement present Assessment & Plan Assessment & Plan (1) PAF (paroxysmal atrial fibrillation): Code(s): I48.0 - Paroxysmal atrial fibrillation Plan: History of paroxysmal atrial fibrillation. Last EKG done 11/22/2022 did show atrial fibrillation, rate 103. Device interrogation 03/26/2023 showed paroxysmal atrial fibrillation burden 6.3%. Episodes are usually brief and V rates are elevated. Recently his diltiazem was increased up to 240 mg daily. Mg report Lior's with his medications. He will feel heart palpitations at time but it is not too bothersome. He continues on Eliquis as directed. No bleeding issues reported at this time. He has a rectal mass/cancer with prior GI bleeding. He follows with Dr. Gaxiola for Oncology. He tells me he had an MRI this past weekend waiting for the results. At this time will have him continue on current med management. Instructed to notify his providers if he has any GI bleeding. (2) Pacemaker: Code(s): Z95.0 - Presence of cardiac pacemaker Plan: [employer] dual-chamber pacemaker in place. Interrogation done last visit shows device is functioning normally. Battery 9.4-11 years. Remote monitoring in use as well. Next office interrogation due in 3 months (3) Sick sinus syndrome: Code(s): I49.5 - Sick sinus syndrome Plan: Pacemaker in place (4) HTN (hypertension): Code(s): I10 - Essential (primary) hypertension Plan: Well controlled at present. No med changes made (5) Acute kidney injury: Code(s): N17.9 - Acute kidney failure, unspecified Plan: Recent hospital admission with ANIL, GI bleed. His lisinopril was stopped at that time. Creatinine had been as high as 1.68. Most recent labs on 04/23/2023 showed creatinine 1.16. (6) Rectal mass: Comment: Patient under GI workup including colonoscopy which demonstrates a recently diagnosed rectal adenocarcinoma. Patient was made aware of this today. Current plan is to obtain a staging T3 MRI and direct further therapy regarding the rectal cancer based on the results of this. Spoke with [facility] and his permanent pacemaker is MRI compatible. Code(s): K62.89 - Other specified diseases of anus and rectum Plan: Follows with Dr. Gaxiola Plan Time spent on chart review, documentation, interview and assessment Coding Level of Care Code Est Pt Level 4 (75547) Diagnoses PAF (paroxysmal atrial fibrillation) I48.0 Pacemaker Z95.0 Sick sinus syndrome I49.5 HTN (hypertension) I10 Acute kidney injury N17.9 Rectal mass K62.89 Time Spent (min) 28
[2023-05-04 13:02] VITALS: BP 120/54; PULSE 58; BMI 29.0
== END 2023-05-04 13:40 | disposition home or self-care (01) ==
PROVIDERS: PCP Internal Medicine; Visit Provider Nurse Practitioner Family
DX: I48.0 Paroxysmal atrial fibrillation (principal); Z95.0 Presence of cardiac pacemaker; I49.5 Sick sinus syndrome; I10 Essential (primary) hypertension; N17.9 Acute kidney failure, unspecified; K62.89 Other specified diseases of anus and rectum
CPT/HCPCS: 99214

== ENCOUNTER → 2023-05-04 12:30 | Outpatient (BNVA) | payer OTHER, SELFPAY | PROVIDERS: Visit Provider Nurse Practitioner Family | DX: I48.0 Paroxysmal atrial fibrillation (principal); I10 Essential (primary) hypertension; N17.9 Acute kidney failure, unspecified; Z95.0 Presence of cardiac pacemaker | CPT/HCPCS: 99212 ==

== ENCOUNTER 2023-06-04 10:36 | Outpatient (AMB) | payer OTHER, SELFPAY ==
--- NOTE | 2023-06-04 10:40 | MHC.OFFVIS ---
Vital Signs 06/04/23 10:43 Height 5 ft 10 in Weight 199 lb BMI 28.6 BP 138/65 Blood Pressure Location Rt brachial Position Sitting Intake Visit Reasons: Rectal CA Intake Note: Patient here to f/u rectal CA. Was seen by Dr. Gaxiola. Patient c/o: reports finished chemotherapy. Sigmoidoscopy with Dr. Lara scheduled on 08-07-23. Pacemaker Dr. Armstrong: 06-19-2022. 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 All things considered, he claims doing quite well. He has starting a diet. Having regular bowel habits. Patient is tentatively scheduled for a follow-up MRI and [place] at the end of this month. [facility] Medical History Aftercare following left shoulder joint replacement surgery Pacemaker OA (osteoarthritis) Borderline hyperlipidemia Obesity HTN (hypertension) EtOH dependence Mild cognitive impairment Inhibited sex excitement Atrial fibrillation Cancer of kidney High cholesterol Hypertension Family History Mother Heart problem Social History Household Members: Spouse Housing: House Do you presently have visiting nurse or other home services: No Alcohol intake: former Comment: refusing alarms Patient Tobacco Use Status: Former Tobacco user Advance Directives Date on File: 11/29/22 service: Yes Physical Exam Vital Signs: Last Vital Signs BP 138/65 06/04/23 10:43 BMI result Body Mass Index 28.6 GI Other: Abdomen is soft. Rectal exam was performed were no palpable pathology was demonstrated with full entrance of my index finger. Prostate bilateral lobes smooth Assessment & Plan Assessment & Plan (1) Malignant neoplasm of rectum: Code(s): C20 - Malignant neoplasm of rectum Category: Surgical Plan Current plan is for the patient's see me a week after his MRI and discuss further interventions and studies at that time. All questions answered.
[2023-06-04 10:43] VITALS: BP 138/65; BMI 28.6
== END 2023-06-04 11:01 | disposition home or self-care (01) ==
LOC: HO.HGS 10:36
PROVIDERS: PCP Internal Medicine; Referring Provider Internal Medicine Medical Oncology; Visit Provider Surgery
DX: C20 Malignant neoplasm of rectum (principal)
CPT/HCPCS: 99214

== ENCOUNTER → 2023-06-04 10:36 | Outpatient (BNVA) | payer OTHER, SELFPAY | PROVIDERS: PCP Internal Medicine; Referring Provider Internal Medicine Medical Oncology; Visit Provider Surgery | DX: C20 Malignant neoplasm of rectum (principal) | CPT/HCPCS: 99212 ==

== ENCOUNTER 2023-06-19 10:33 | Outpatient (AMB) | payer OTHER, SELFPAY ==
[2023-06-19 10:40] VITALS: BP 173/73; PULSE 61; BMI 28.7
--- NOTE | 2023-06-19 10:40 | A.OFFVIS_ITS ---
Vital Signs 06/19/23 10:40 Height 5 ft 10 in Weight 200 lb BMI 28.7 BP 173/73 H Blood Pressure Location Rt brachial Position Sitting Pulse 61 Intake Visit Reasons: Follow up after MRI 06/11-Rectal CA Intake Note: Patient here to discuss MRI results. Hx of Rectal CA. Chemo completed . Patient c/o: no new concerns. MRI: [facility]: 06-12-23. Surface Supply Breathing Apparatus Required: No Accompanied by: Self / Same As Patient Allergies No Known Allergies [NKA] Allergy (Mild, Verified 06/19/23 10:41) NOT APPLICABLE HPI Comments Details: Patient presents here to review his recent MRI results from outside facility. Patient has no new issues or complaints. MRI results were reviewed with the patient. [facility] Medical History Aftercare following left shoulder joint replacement surgery Pacemaker OA (osteoarthritis) Borderline hyperlipidemia Obesity HTN (hypertension) EtOH dependence Mild cognitive impairment Inhibited sex excitement Atrial fibrillation Cancer of kidney High cholesterol Hypertension Family History Mother Heart problem Social History Household Members: Spouse Housing: House Do you presently have visiting nurse or other home services: No Alcohol intake: former Comment: refusing alarms Patient Tobacco Use Status: Former Tobacco user Advance Directives Date on File: 11/29/22 service: Yes Physical Exam Vital Signs: Last Vital Signs Pulse 61 06/19/23 10:40 BP 173/73 H 06/19/23 10:40 BMI result Body Mass Index 28.7 GI Other: Soft, status quo. Assessment & Plan Assessment & Plan (1) Rectal carcinoma: Code(s): C20 - Malignant neoplasm of rectum Category: Surgical Plan I discussed with the patient that I will review the case with Dr. Yi and direct further therapy based on our discussion. Addendum; I reviewed the case with Dr. Yi (colorectal) and because of the low-lying nature of this rectal tumor, the consensus of opinion is that the patient would be better served at a facility which does this type of very low anterior/pelvic surgery routinely. Current recommendation is to make arrangements for [facility]. We will discuss with [place] the name of the group who Dr. Yi recommends. Patient will be contact regarding this. Coding Level of Care Code Est Pt Level 4 (03210) Diagnoses Rectal carcinoma C20
== END 2023-06-19 10:51 | disposition home or self-care (01) ==
PROVIDERS: PCP Internal Medicine; Referring Provider Internal Medicine; Visit Provider Surgery
DX: C20 Malignant neoplasm of rectum (principal)
CPT/HCPCS: 99214

== ENCOUNTER → 2023-06-19 10:33 | Outpatient (BNVA) | payer OTHER, SELFPAY | PROVIDERS: PCP Internal Medicine; Visit Provider Surgery | DX: C20 Malignant neoplasm of rectum (principal) | CPT/HCPCS: 99212 ==

== ENCOUNTER → 2023-06-25 23:59 | Outpatient (BNV) | payer OTHER, SELFPAY ==
--- NOTE | 2023-06-28 10:11 | A.OFFVIS_ITS ---
Intake Visit Reasons: Remote device check- [facility] Allergies No Known Allergies [NKA] Allergy (Mild, Verified 06/25/23 14:35) NOT APPLICABLE PFSH Medical History Aftercare following left shoulder joint replacement surgery Pacemaker OA (osteoarthritis) Borderline hyperlipidemia Obesity HTN (hypertension) EtOH dependence Mild cognitive impairment Inhibited sex excitement Atrial fibrillation Cancer of kidney High cholesterol Hypertension Family History Mother Heart problem Social History Household Members: Spouse Housing: House Do you presently have visiting nurse or other home services: No Alcohol intake: former Comment: refusing alarms Patient Tobacco Use Status: Former Tobacco user Advance Directives Date on File: 11/29/22 service: Yes Office Procedures Cardiac Device Check Cardiac Device Check Details: Date of service- 06/25/2023 ; Battery life >8 years; normal lead parameters; AP 57%; SUPERVISOR FABRICATION <1%; AT/AF burden 3.3%. Rapid rates noted. Overall normal device function. [id number] Cardiac Device Interrogation, pacemaker Procedure code (CPT) selection complete Assessment & Plan Assessment & Plan (1) Sinus bradycardia: Code(s): R00.1 - Bradycardia, unspecified Category: Medical (2) Atrial fibrillation with rapid ventricular response: Code(s): I48.91 - Unspecified atrial fibrillation Category: Surgical Plan x Coding Level of Care Code Procedure Only Diagnoses Sinus bradycardia R00.1 Atrial fibrillation with rapid ventricular response I48.91 CPT Codes Cardiac Device Check - Cardiac Device 12: [id number] Cardiac Device Interrogation, pacemaker ([id number])
== END ==
PROVIDERS: PCP Internal Medicine; Visit Provider Internal Medicine
DX: R00.1 Bradycardia, unspecified (principal); I48.91 Unspecified atrial fibrillation; Z95.0 Presence of cardiac pacemaker
CPT/HCPCS: 93294

== ENCOUNTER 2023-08-13 12:28 | Outpatient (AMB) | payer OTHER, SELFPAY ==
[2023-08-13 13:55] VITALS: BP 132/72; BMI 29.1
--- NOTE | 2023-08-13 13:55 | A.OFFVIS_ITS ---
Vital Signs 08/13/23 13:55 Height 5 ft 10 in Weight 203 lb BMI 29.1 BP 132/72 Blood Pressure Location Rt brachial Position Sitting Intake Visit Reasons: 3 mth fu w/ [facility] Allergies No Known Allergies [NKA] Allergy (Mild, Verified 08/13/23 13:57) NOT APPLICABLE Medication List - Last Reconciled 08/13/23 by Randy Melgar MD ascorbic acid (vitamin C) (Vitamin C) 250 mg (1/2 x 500 mg) PO BID calcium carbonate-vitamin D3 500 mg-10 mcg (400 unit) (Calcium 500 + D) 1 tab PO BID clotrimazole 1% 1 appl topical BID diltiazem HCl CD 240 mg PO DAILY ferrous sulfate 325 mg PO BID loperamide 4 mg (2 x 2 mg) PO Q4H PRN metoprolol tartrate 100 mg See Protocol PO BID 90 days omeprazole 20 mg PO BID@0630,1630 HPI Comments Details: Mehran returns for follow-up. He has a history of atrial fibrillation rapid ventricular rate. He was treated with beta-blockers and Eliquis. Then readmitted with dizziness and in that setting had almost 8 seconds duration conversion pauses. Then underwent permanent pacemaker implantation. Also found to be anemic and workup led to findings of rectal malignancy. According to him, surgery still pending. From cardiac, he states he is doing good. No specific complaints. No longer on anticoagulation, presumably because of GI bleed/anemia. He states he is feeling fine from cardiac. [facility] Medical History Aftercare following left shoulder joint replacement surgery Pacemaker OA (osteoarthritis) Borderline hyperlipidemia Obesity HTN (hypertension) EtOH dependence Mild cognitive impairment Inhibited sex excitement Atrial fibrillation Cancer of kidney High cholesterol Hypertension Family History Mother Heart problem Social History Household Members: Spouse Housing: House Do you presently have visiting nurse or other home services: No Alcohol intake: former Comment: refusing alarms Patient Tobacco Use Status: Former Tobacco user Advance Directives Date on File: 11/29/22 service: Yes Review of Systems Const All systems reviewed & are unremarkable except as noted in HPI and below Reports as per HPI and Reports no additional complaints Eyes Reports as per HPI and Denies no additional complaints ENT Denies no additional complaints and Reports as per HPI Card Reports as per HPI, Reports no additional complaints, Denies acrocyanosis, Denies chest pain, Denies leg edema, Denies lightheadedness, Denies palpitations and Denies dyspnea Resp Reports as per HPI, Denies no additional complaints and Denies dyspnea GI Reports as per HPI and Denies no additional complaints Reports no additional complaints and Reports as per HPI Musc Reports no additional complaints and Reports as per HPI Skin/Breast Reports system reviewed and no additional complaints, except as documented Neuro Reports no additional complaints and Reports as per HPI Psych Reports no additional complaints and Reports as per HPI Endo Reports no additional complaints, Reports as per HPI and Denies palpitations Eze/Lymph Reports no additional complaints and Reports as per HPI Aller/Immun Reports no additional complaints and Reports as per HPI Physical Exam Vital Signs: Last Vital Signs BP 132/72 08/13/23 13:55 BMI result Body Mass Index 29.1 Const General: comfortable and no acute distress Orientation/consciousness: patient oriented x3 HEENT Other: Unremarkable Head: Yes normal to inspection Neck Neck: Yes normal visual inspection Chest Chest palpation & inspection: normal inspection of the chest Resp Auscultation: clear to auscultation bilaterally Cardio Palpation: normal PMI Heart sounds: S1 normal heart sound present, S2 normal heart sound present, no gallops, no murmurs and no rubs GI Palpation (GI): Soft to palpation Back/Spine/Pelvis Other: unremarkable Skin General skin exam: no rashes or lesions noted Neuro General: patient oriented x3 Extrem General: Yes normal to inspection Psych Mental Status: mental status grossly normal Office Procedures Cardiac Device Check Cardiac Device Check Details: Pacemaker interrogated today. Dual-chamber device, programmed DDD. Battery status more than 8 years. Normal lead parameters. Mode switch about 2.6%. Atrial fibrillation episodes noted longest, 13 hours. Overall, normal device function. [id number] Cardiac Device Check, pacemaker dual lead Procedure code (CPT) selection complete EKG Details: EKG with atrial paced rhythm at 60/Min. [id number], Complete Assessment & Plan Assessment & Plan (1) PAF (paroxysmal atrial fibrillation): Code(s): I48.0 - Paroxysmal atrial fibrillation Category: Medical Plan: Continue metoprolol/diltiazem with current dose. With regard to anticoagulation, seems to be on hold because of GI bleeding issues. After colon cancer surgery, may be able to resume. As he is having some atrial fibrillation rapid rate episodes and going for colon surgery, reasonable to use at least short-term amiodarone to get this under control to avoid perioperative atrial fibrillation issues. (2) Sick sinus syndrome: Code(s): I49.5 - Sick sinus syndrome Category: Medical Plan: Status post pacemaker. Normal function on office checked today. Can be followe d remotely. Medications: New amiodarone Followed by 200mg daily. 400 mg (2 x 200 mg) PO BID 56 tabs 0RF 14 days amiodarone After loading dose. 200 mg PO DAILY 90 tabs 1RF Coding Level of Care Code Est Pt Level 4 (67905) Diagnoses PAF (paroxysmal atrial fibrillation) I48.0 Sick sinus syndrome I49.5 CPT Codes Cardiac Device Check - Cardiac Device 2: [id number] Cardiac Device Check, pacemaker dual lead ([id number]) EKG - CPT: 61200-[id number], Complete ([id number])
== END 2023-08-13 14:36 | disposition home or self-care (01) ==
PROVIDERS: PCP Internal Medicine; Visit Provider Internal Medicine
DX: I48.0 Paroxysmal atrial fibrillation (principal); I49.5 Sick sinus syndrome
CPT/HCPCS: 93010; 93280; 99214

== ENCOUNTER → 2023-08-13 12:28 | Outpatient (BNVA) | payer OTHER, SELFPAY | PROVIDERS: PCP Internal Medicine; Visit Provider Internal Medicine | DX: I48.0 Paroxysmal atrial fibrillation (principal); Z45.018 Encounter for adjustment and management of other part of cardiac pacemaker; Z86.79 Personal history of other diseases of the circulatory system; Z79.899 Other long term (current) drug therapy | CPT/HCPCS: 93005; 93280; 99212 ==

== ENCOUNTER → 2023-08-24 10:02 | Outpatient (BNVA) | payer OTHER, SELFPAY | PROVIDERS: PCP Internal Medicine; Visit Provider Internal Medicine ==

== ENCOUNTER → 2023-09-24 23:59 | Outpatient (BNV) | payer OTHER, SELFPAY ==
--- NOTE | 2023-09-24 19:38 | A.OFFVIS_ITS ---
Intake Visit Reasons: Remote device check- [facility] Allergies No Known Allergies [NKA] Allergy (Mild, Verified 08/24/23 12:56) NOT APPLICABLE PFSH Medical History Aftercare following left shoulder joint replacement surgery Pacemaker OA (osteoarthritis) Borderline hyperlipidemia Obesity HTN (hypertension) EtOH dependence Mild cognitive impairment Inhibited sex excitement Atrial fibrillation Cancer of kidney High cholesterol Hypertension Family History Mother Heart problem Social History Household Members: Spouse Housing: House Do you presently have visiting nurse or other home services: No Alcohol intake: former Comment: refusing alarms Patient Tobacco Use Status: Former Tobacco user Use of substances other than those prescribed or required for medical reasons: No Do you feel safe in your current relationship?: Yes Advance Directives Date on File: 11/29/22 Do you have thoughts of harming others: None Recently lost weight without trying: No service: Yes Office Procedures Cardiac Device Check Cardiac Device Check Details: Date of service- 09/24/2023 ; Battery life >8 years; normal lead parameters; AP 91%; 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 Overall normal device function. [id number] Cardiac Device Interrogation, pacemaker Procedure code (CPT) selection complete Assessment & Plan Assessment & Plan (1) Sinus bradycardia: Code(s): R00.1 - Bradycardia, unspecified Category: Medical (2) Sick sinus syndrome: Code(s): I49.5 - Sick sinus syndrome Category: Medical Plan x Coding Level of Care Code Procedure Only Diagnoses Sinus bradycardia R00.1 Sick sinus syndrome I49.5 CPT Codes Cardiac Device Check - Cardiac Device 12: [id number] Cardiac Device Interrogation, pacemaker ([id number])
== END ==
PROVIDERS: PCP Internal Medicine; Visit Provider Internal Medicine
DX: I49.5 Sick sinus syndrome (principal); Z95.0 Presence of cardiac pacemaker
CPT/HCPCS: 93294

== ENCOUNTER 2023-10-12 15:48 | Inpatient (IN) | payer MEDICARE, SELFPAY ==
--- NOTE | ~2023-10-12 | CT_ITS ---
EXAMINATION: CT ABDOMEN AND PELVIS WITHOUT CONTRAST CLINICAL INFORMATION: Question obstructive uropathy; history of rectal cancer. COMPARISON: CT abdomen and pelvis dated 04/30/2023. TECHNIQUE: Multidetector volumetric imaging was performed from the superior aspect of the liver through the pubic symphysis. Sagittal and coronal reformatted images were obtained on the technologist's workstation. This CT examination was performed using dose optimization techniques as appropriate, variously including the following: *Automated exposure control *Adjustment of mA and/or kV according to patient size (this includes techniques or standardized protocols for targeted exams where dose is matched to indication/reason for exam; i.e. extremities or head) *Use of iterative reconstruction technique DLP: 671 mGy-cm FINDINGS: LUNG BASES: The visualized lung bases are unremarkable. Pacemaker leads are noted. There are marked coronary artery atherosclerotic calcifications. LIVER, GALLBLADDER, AND BILIARY TREE: The liver is normal in size, shape, and attenuation. There is a benign, calcified granuloma within the right hepatic lobe. No focal hepatic lesion or biliary ductal dilatation is present. There are small gallstones, some adherent, without gallbladder wall thickening or obvious pericholecystic inflammatory changes. PANCREAS: Unremarkable. SPLEEN: Unremarkable. ADRENAL GLANDS: Unremarkable. KIDNEYS AND URETERS: The kidneys are normal in size, shape, and attenuation. No hydronephrosis, hydroureter, or calculi seen. No perinephric stranding. Arising exophytically from the mid right kidney (3:39), a 2.1 cm round density is seen, with precontrast Hounsfield value of 23.7 units. There is an adjacent 1.3 cm exophytic cyst with postcontrast Hounsfield value of -0.5 units (3:43). BLADDER: There is mild generalized wall thickening. GASTROINTESTINAL TRACT: There is a right lower quadrant ileostomy. There is a rectal anastomosis, which appears patent. There is a small amount of gas and fluid adjacent to the anastomosis (3:74). This is suboptimally evaluated, without the benefit of oral contrast. There is a small amount of free fluid in the cul-de-sac. ABDOMINAL WALL: There is an infraumbilical surgical incision, with skin ana noted. Right lower quadrant ileostomy noted, as above. LYMPH NODES: Normal. VASCULAR: There is marked aortoiliac atherosclerotic calcification. No abdominal aortic aneurysm or dissection is seen. PELVIC VISCERA: The prostate and seminal vesicles are unremarkable. OSSEOUS STRUCTURES: There is marked degenerative disc disease at L3-4 and L4-5. There is multi-level thoracolumbar endplate arthropathy, with an appearance suggesting possible DISH (diffuse idiopathic skeletal hyperostosis). No acute or aggressive osseous abnormality is seen. CT/CT abdomen pelvis wo IV con IMPRESSION: 1. There appears to have been a recent colon resection, with rectal anastomotic staple line showing a small amount of adjacent gas and fluid suspicious for a small and anastomotic leak. This is suboptimally evaluated without the benefit of oral contrast. There is a right lower quadrant ileostomy. Please correlate with the patient's Past Surgical History. Within the central mesentery, there is a 10.9 x 6.5 x 8.0 cm circumscribed collection of postcontrast Hounsfield value 40.1 units. This is suggestive of a large postoperative hematoma. General Surgery evaluation and management are recommended. 2. No urinary calculus or obstruction is seen. There is mild circumferential wall thickening of the urinary bladder, possibly infectious or inflammatory in etiology. Correlation with the patient's most recent urinalysis is recommended. 3. A 2.1 cm round density arises exophytically from the mid right kidney, possibly a complex cyst or solid lesion. This was indeterminate on the ultrasound examination of 11/06/2022 and could be more fully evaluated with MRI (renal mass protocol), if clinically indicated. 4. There is mild cholelithiasis. 5. There is marked degenerative disc disease at L3-4 and L4-5. Skeletal findings suggest possible DISH. No acute or aggressive osseous lesion is seen. This critical result was discussed with Dr. Marques at 10:05 PM on 10/12/2023, and it was ascertained that the content and urgency of this report was understood at the time of direct communication. Electronically signed by: Oscar Cruz MD 10/12/2023 10:11 PM EDT
[2023-10-12 15:55] VITALS: BP 109/51; PULSE 62; RESP 16; TEMP 36.2; O2SAT 99; BMI 27.7
--- NOTE | 2023-10-12 15:55 | ECG_ITS ---
Test Reason : hyperkalemia Blood Pressure : / mmHG Vent. Rate : 060 BPM Atrial Rate : 060 BPM P-R Int : 220 ms QRS Dur : 102 ms QT Int : 404 ms P-R-T Axes : 000 -01 037 degrees QTc Int : 404 ms Atrial-paced rhythm with prolonged AV conduction Abnormal ECG When compared with ECG of 22-NOV-2022 08:01, Electronic atrial pacemaker has replaced Atrial fibrillation Vent. rate has decreased BY 43 BPM Referred By: Shavon Montes Electronically Signed By:MAYKEL PURCELL
--- NOTE | 2023-10-12 15:57 | ED_ITS ---
HPI - Recheck/Abnormal Lab/Rx General Chief Complaint: Recheck/Abnormal Lab/Rx Stated Complaint: ref by pcp for abnormal labs Time Seen by Provider: 10/12/23 16:31 Source: patient, family, RN notes reviewed, old records reviewed and events assistant Mode of arrival: ambulatory Limitations: language barrier History of Present Illness ED Provider: Velma HPI narrative: 78-year-old male past medical history significant for hypertension, rectal carcinoma with recent surgical resection status post ostomy placement at [facility], atrial fibrillation on Eliquis presents for evaluation of ?high potassium. ? Patient was discharged on 10/04/2023 from [facility] after his surgery. He reports that he was told at that time that he had high potassium but was discharged regardless The patient states that he had follow-up with his primary provider at the [facility] earlier today. He reports he is told to go directly to the ER because his potassium was ?7.2. ? The patient has no complaints or concerns He denies any history of high potassium that he is aware of He denies any fevers, chills, chest pain, abdominal pain, nausea vomiting Related Data Home Medications ?Medication ?Instructions ?Recorded ?Confirmed clotrimazole 1 % topical cream 1 appl topical BID 06/04/23 08/24/23 Previous Rx's ?Medication ?Instructions ?Recorded metoprolol tartrate 100 mg tablet 100 mg PO BID 90 days #180 tabs 06/08/22 calcium carbonate 500 mg-vitamin 1 tab PO BID #60 tabs 11/16/22 D3 10 mcg (400 unit) tablet (Calcium 500 + D) loperamide 2 mg capsule 4 mg (2 x 2 mg) PO Q4H PRN 11/28/22 Diarrhea #90 caps omeprazole 20 mg capsule,delayed 20 mg PO BID@0630,1630 #60 caps 01/01/23 release diltiazem HCl 240 mg 240 mg PO DAILY #90 caps 01/16/23 capsule,extended release 24 hr ascorbic acid (vitamin C) 500 mg 250 mg (1/2 x 500 mg) PO BID #60 04/23/23 tablet (Vitamin C) tabs ferrous sulfate 325 mg (65 mg 325 mg PO BID #60 tabs 04/23/23 iron) tablet amiodarone 200 mg tablet 200 mg PO DAILY #90 tabs 08/13/23 amiodarone 200 mg tablet 400 mg (2 x 200 mg) PO BID 14 days 08/13/23 #56 tabs apixaban 5 mg tablet (Eliquis) 5 mg PO BID #60 tabs 08/24/23 Allergies Allergy/AdvReac Type Severity Reaction Status Date / Time No Known Allergies [NKA] Allergy Mild NOT Verified 10/12/23 16:00 APPLICABLE Review of Systems 2 Constitutional: Constitutional: Denies body ache(s), Denies chills and Denies fever(s) Eyes: Eyes: Denies blurry vision ENT: Denies vertigo and Denies dizziness Cardiovascular: Cardiovascular: Denies chest pain and Denies dyspnea Respiratory: Respiratory: Denies cough and Denies dyspnea Gastrointestinal: Gastrointestinal: Denies abdominal pain, Denies nausea and Denies vomiting Musculoskeletal: Musculoskeletal: Denies back pain Integumentary/Breasts: Skin/Breast: Denies rash Neurologic: Denies vertigo and Denies dizziness [facility] Past Medical History Medical History Aftercare following left shoulder joint replacement surgery Pacemaker OA (osteoarthritis) Borderline hyperlipidemia Obesity HTN (hypertension) EtOH dependence Mild cognitive impairment Inhibited sex excitement Atrial fibrillation Cancer of kidney High cholesterol Hypertension Family History Family History Mother Heart problem Social History Social History Household Members: Spouse Housing: House Do you presently have visiting nurse or other home services: No Alcohol intake: former Comment: refusing alarms Patient Tobacco Use Status: Former Tobacco user Smoked in Last 30 Days: No Use of substances other than those prescribed or required for medical reasons: No Advance Directives: Yes Advance Directives on File: Yes Advance Directives Date on File: 11/29/22 service: Yes Physical Exam 2 Vital Signs: Vital Signs: Last Vital Signs Temp 98.0 F 10/12/23 20:00 Pulse 60 10/12/23 20:00 Resp 16 10/12/23 20:00 BP 130/52 L 10/12/23 20:00 Pulse Ox 98 10/12/23 20:00 O2 Del Method Room Air 10/12/23 20:00 BMI result Body Mass Index 27.7 Const: General: healthy appearing, comfortable, no acute distress, alert and awake Nutritional Appearance: well nourished Orientation/consciousness: p atient oriented x3 HEENT: Head: Yes normocephalic and Yes atraumatic Eyes: Eyelids: Yes eyelids normal Conjunctivae: conjunctivae normal S clerae: sclerae normal Corneas: corneas normal Pupils: Equal, round and reactive pupils present EOM: EOMs intact bilaterally Neck: Neck: Yes full ROM Resp: Effort & Inspection: normal respiratory effort, able to speak in complete sentences and not labored Cardio: Rate: regular rate Rhythm: regular rhythm GI: Other: Patient has ileostomy placement in the right midabdomen with adequate stool drainage it is light brown in color. Inspection: No distended Palpation (GI): Soft to palpation, not firm, nontender, no guarding and not rigid Skin: General skin exam: elasticity normal Neuro: General: patient oriented x3 Cranial nerves: Yes Equal, round and reactive pupils present and Yes Bilaterally intact EOM present Cognition (Neuro): normal cognition Course Course Course Narrative: This is a Rapid Medical Examination (RME) performed by Sonny Montes PA-C in triage. Full HPI, ROS, assessment and treatment plan per primary provider in the Main ED. 78 yo male hx of HTN, afib w/ rvr on eliquis, pacemaker, s/p colostomy here for eval of abnormal labs. had routine labs drawn today, was called and informed his potassium was 7.23 and WBC 16. advised to call EMS and come to ED. declined EMS transport and arrived via private vehicle. denies any physical symptoms at present. Reports normal output from colostomy. His home nurse was supposed to change this today however he came here instead. Plan: repeat labs, ekg Reevaluation(s) Reevaluation #1: Patient's potassium was elevated to 6.6 on repeat labs from today that is a decrease of 0.6 his outpatient labs. We will start treatment with low,, IV fluids. The patient has no complaints, his EKG is unchanged, no peaked T-waves. No signs or symptoms of hyperkalemia. He was also given Lokelma as well as calcium gluconate. Given the leukocytosis as well as renal injury, plan for CT scan of the abdomen pelvis without IV contrast. UA is pending Time: 18:44 Medications Administered Discontinued Medications Generic Name Dose Route Start Last Admin Trade Name Jay Jay PRN Reason Stop Dose Admin Sodium Chloride 1,000 mls @ 999 mls/hr 10/12/23 17:45 10/12/23 20:06 Ns IV 10/12/23 18:45 Infused .Q1H1M NILE Infusion Calcium Gluconate 2 gm in 100 mls @ 400 mls/hr 10/12/23 17:43 10/12/23 19:30 Calcium Gluconate IV 10/12/23 17:57 Infused ONCE ONE Infusion Sodium Chloride 1,000 mls @ 999 mls/hr 10/12/23 18:45 10/12/23 19:43 Ns IV 10/12/23 19:45 999 mls/hr .Q1H1M NILE Administration Ceftriaxone Sodium 1 gm/ 50 mls @ 100 mls/hr 10/12/23 18:58 10/12/23 19:43 Sodium Chloride IV 10/12/23 19:27 100 mls/hr ONCE ONE Administration Sodium Zirconium Cyclosilicate 10 gm 10/12/23 17:40 10/12/23 18:27 Sodium Zirconium Cyclosilicate 10 Gm Powd.Pack PO 10/12/23 17:41 10 gm ONCE ONE Administration Medical Decision Making Medical Decision Making MDM Narrative: 78-year-old male presents for evaluation of elevated potassium and outpatient labs as well as a high white count. The patient offers no complaints or concerns pain. Denies any abdominal pain, fevers, chills. The patient is a test stick, it is possible that his outpatient labs were hemolyzed. Plan to repeat labs stat, her EKG was obtained which shows atrial paced rhythm, there is no peaked T-waves. No ST segment changes to suggest ischemia. Differential Diagnosis Differential Diagnoses: The differential diagnosis associated with the presentation includes Hyperkalemia Obstructive uropathy UTI Hypovolemia ANIL Admission/Observation Consideration of admission/observation: Escalation of care including admission/observation considered Patient will require admission for treatment of hyperkalemia Consult Healthcare Provider Management of the patient was discussed with: Hospitalist Lab Data [facility] Lab Attestation statement: I reviewed the patient's lab results. Leukocytosis to 16.3 with a left shift and bandemia of 1%. Patient does have a normocytic anemia with a hemoglobin of 8.7 and hematocrit 27.4. This may be related to his recent surgery. Chemistries are significant for a sodium of 131 potassium 6.6, his CO2 level is 19, BUN 24 creatinine of 1.76. 10/12/23 16:52 10/12/23 16:52 Labs: Lab Results 10/12/23 10/12/23 Range/Units 16:52 18:32 WBC 16.3 H (4.8-10.8) X10*3/uL RBC 2.80 L (4.60-5.80) X10*6/uL Hgb 8.7 L D (14.0-18.0) g/dl Hct 27.4 L D (42.0-52.0) % MCV 97.9 (80.0-98.0) fL MCH 31.1 (27.0-33.0) pg MCHC 31.8 (31.0-36.0) g/dl RDW 16.2 H (11.0-16.0) % Plt Count 420 H D (160-400) X10*3/uL MPV 9.8 (9.4-12.4) fL Immature Gran % (Auto) Cancelled Neut % (Auto) Cancelled Lymph % (Auto) Cancelled Nolan % (Auto) Cancelled Eos % (Auto) Cancelled Baso % (Auto) Cancelled Lymph # (Auto) Cancelled Nolan # (Auto) Cancelled Eos # (Auto) Cancelled Baso # (Auto) Cancelled Abs Immat Gran (auto) Cancelled Absolute Neuts (auto) Cancelled Absolute Nucleated RBC 0.000 (0.0-0.012) X10*3/uL Nucleated RBC % (auto) 0.0 (0.0-0.2) /100WBC Neutrophils % (Manual) 87 H (45-73) % Band Neutrophils % 1 L (3-5) % Lymphocytes % (Manual) 3 L (20-40) % Monocytes % (Manual) 6 (2-11) % Myelocytes % 3 % Abs Neuts (Manual) 14.3 H (2.0-8.3) X10*3/uL Lymphocytes # (Manual) 0.5 L (1.2-4.9) X10*3/uL Monocytes # (Manual) 1.0 (0.1-1.2) X10*3/uL Myelocytes # 0.5 X10*/uL Platelet Estimate NORMAL (NORMAL) Plt Morphology Comment NORMAL RBC Morphology NOTED Microcytosis 1+ (5-14) /OIF Sodium 131 L (135-145) mmol/L Potassium 6.6 H* D (3.3-5.1) mmol/L Chloride 107 (96-108) mmol/L Carbon Dioxide 19 L (22-29) mmol/L Anion Gap 12 (12-20) BUN 24 H (9-16) mg/dL Creatinine 1.76 H (0.5-1.4) mg/dL Estim Creat Clear Calc 36.2 Estimated GFR 38 Random Glucose 106 (60-115) mg/dL Calcium 8.6 (8.4-10.2) mg/dL Magnesium 2.3 (1.6-2.6) mg/dL Total Bilirubin 0.8 (0.0-1.0) mg/dL AST 36 (5-37) U/L ALT 61 H (0-40) U/L Alkaline Phosphatase 186 H (39-117) U/L Total Protein 6.7 (6.5-8.0) g/dL Albumin 3.1 L (3.5-5.0) g/dL Lipase 23 (8-78) U/L Urine Color Dark Yellow Urine Appearance Turbid Urine pH 5.0 (5.0-9.0) Ur Specific [place] 1.015 (1.005-1.025) Urine Protein 30 (1+) H (Neg-Trace) mg/dL Urine Glucose (UA) Negative (Negative) mg/dL Urine Ketones Negative (Negative) mg/dL Urine Blood Moderate (2+) H (Negative) Urine Nitrite Positive H (Negative) Ur Leukocyte Esterase Large (3+) H (Negative) Urine RBC 3-5 H (0-2) /HPF Urine WBC >50 H (0-5) /HPF Ur Squamous Epith Cells 0-2 (0-2) /HPF Urine Bacteria 4+ (None Seen) Hyaline Casts 3-5 (0-2) /LPF Discharge Plan Discharge Clinical Impression: Acute hyperkalemia, ANIL (acute kidney injury) Patient Disposition: Admitted As Inpatient Prescriptions: No Action metoprolol tartrate 100 mg tablet 100 mg PO BID 90 Days Qty: 180 0RF Protocol: Hold for SBP/HR < HOLD for SBP < : 90 HOLD for HR < : 60 calcium carbonate-vitamin D3 [Calcium 500 + D] 500 mg-10 mcg (400 unit) Tablet 1 tab PO BID Qty: 60 4RF omeprazole 20 mg Capsule,Delayed Release(Dr/Ec) 20 mg PO BID@0630,1630 Qty: 60 0RF ferrous sulfate 325 mg (65 mg iron) Tablet 325 mg PO BID Qty: 60 3RF ascorbic acid (vitamin C) [Vitamin C] 500 mg Tablet 250 mg PO BID Qty: 60 3RF Eliquis 5 mg Tablet 5 mg PO BID Qty: 60 4RF loperamide 2 mg Capsule 4 mg PO Q4H PRN (Reason: Diarrhea) Qty: 90 0RF diltiazem HCl 240 mg capsule,extended release 24hr 240 mg PO DAILY Qty: 90 3RF Rx Instructions: Dose increase from 180mg daily up to 240mg daily clotrimazole 1 % cream 1 appl topical BID amiodarone 200 mg tablet 400 mg PO BID 14 Days Qty: 56 0RF Rx Instructions: Followed by 200mg daily. amiodarone 200 mg tablet 200 mg PO DAILY Qty: 90 1RF Rx Instructions: After loading dose. Print Language: Mauritanian
[2023-10-12 16:10] VITALS: BP 104/43; PULSE 60; RESP 14; TEMP 36.5; O2SAT 99
[2023-10-12 16:18] VITALS: BP 129/51; PULSE 60; RESP 20; TEMP 36.7; O2SAT 97
--- NOTE | 2023-10-12 16:19 | MHC.EDTECH ---
This pct just assumed care of patient ,vitals taken ,pt was change into gown ,Patient was hooked up to clinical research monitor ,Call; pate within pt reach .
--- NOTE | 2023-10-12 16:40 | MHC.EDTECH ---
Patient ekg taken and was read by Provider .
[2023-10-12 16:57] LABS: Red Cell Distribution Width 16.2 % (11.0-16.0)
[2023-10-12 17:06] LABS: Hematocrit 27.4 % (42.0-52.0); Hemoglobin 8.7 g/dl (14.0-18.0); Mean Corpuscular HGB Conc 31.8 g/dl (31.0-36.0); Mean Corpuscular Hemoglobin 31.1 pg (27.0-33.0); Mean Corpuscular Volume 97.9 fL (80.0-98.0); Mean Platelet Volume 9.8 fL (9.4-12.4); Platelet Count 420 X10*3/uL (160-400); White Blood Count 16.3 X10*3/uL (4.8-10.8)
[2023-10-12 17:23] LABS: Band Neutrophils Percent 1 % (3-5); Lymphocytes Absolute Manual 0.5 X10*3/uL (1.2-4.9); Lymphocytes Percent Manual 3 % (20-40); Monocytes Percent Manual 6 % (2-11); Myelocytes Absolute 0.5 X10*/uL; Myelocytes Percent 3 %; Neutrophils Absolute Manual 14.3 X10*3/uL (2.0-8.3); Neutrophils Percent Manual 87 % (45-73)
[2023-10-12 17:30] LABS: Microcytosis 1+ (5-14) /OIF; RBC Morphology NOTED
[2023-10-12 17:31] LABS: Platelet Estimate NORMAL (NORMAL); Platelet Morphology Comment NORMAL
[2023-10-12 17:37] LABS: Alanine Aminotransferase 61 U/L (0-40); Albumin Level 3.1 g/dL (3.5-5.0); Alkaline Phosphatase 186 U/L (39-117); Anion Gap 12 (12-20); Aspartate Amino Transferase 36 U/L (5-37); Bilirubin Total 0.8 mg/dL (0.0-1.0); Blood Urea Nitrogen 24 mg/dL (9-16); Calcium 8.6 mg/dL (8.4-10.2); Carbon Dioxide 19 mmol/L (22-29); Chloride 107 mmol/L (96-108); Creatinine Clr Calc Pharmacy 36.2; Estimated Glomerular Filt Rate 38; Glucose Random 106 mg/dL (60-115); Lipase 23 U/L (8-78); Magnesium 2.3 mg/dL (1.6-2.6); Potassium 6.6 mmol/L (3.3-5.1); Sodium 131 mmol/L (135-145); Total Protein 6.7 g/dL (6.5-8.0)
[2023-10-12 17:43] VITALS: BP 109/51; PULSE 59; RESP 18; TEMP 36.8; O2SAT 98
[2023-10-12] MEDS: Sodium Zirconium Cyclosilicate 10 GM POWD.PACK PO (18:27)
[2023-10-12] MEDS: Calcium Gluconate/NaCl,Iso-Osm 2 GM/100 ML PLAST..BAG IV (18:28)
[2023-10-12] MEDS: 0.9 % Sodium Chloride 1,000 ML 999 ML IV ×2 (18:28→19:43)
--- NOTE | 2023-10-12 18:33 | PC.NURSE ---
20g U/S guided IV placed to L forearm. Pt medicated per MAR--Calcium infused at 100 ml/hr per verbal discussion with provider.
[2023-10-12 18:40] LABS: Appearance Urine Turbid; Color Urine Dark Yellow; Glucose Urine UA Negative (Negative); Leukocyte Esterase Urine Large (3+) (Negative); Nitrite Urine Positive (Negative); Specific Gravity - Urine 1.015 (1.005-1.025); UMIC TRIGGER UACC YES; Urine Blood Moderate (2+) (Negative); Urine Ketones Negative (Negative); Urine Protein 30 (1+) mg/dL (Neg-Trace)
[2023-10-12 18:49] LABS: Bacteria Urine 4+ (None Seen); Squamous Epithelial Cell Urine 0-2 /HPF (0-2); UACC Culture Trigger YES; WBC Urine >50 /HPF (0-5)
[2023-10-12] MEDS: cefTRIAXone sodium 1 GM in 0.9 % Sodium Chloride 50 ML IV (19:43)
[2023-10-12 20:00] VITALS: BP 130/52; PULSE 60; RESP 16; TEMP 36.7; O2SAT 98
--- NOTE | 2023-10-12 20:04 | PM.IMHP ---
History of Present Illness Date of Service: 10/12/23 Attending physician on admission: Meli Gamboa Chief Complaint: Abnormal labs Pt is a 78-year-old male with a PMH significant for?AFib on Eliquis, sick sinus syndrome with pacemaker in place, HTN, CAD, degenerative arthritis, and rectal cancer s/p ileostomy who presents to the ED for evaluation of abnormal labs. Patient was recently discharged on 10/04/2023 from [facility] after undergoing a lower anterior resection with diverting loop ileostomy on 09/24/2023. Patient had a prolonged hospital stay that was complicated by AFib with RVR that required cardiology consultation and medication optimization. Today patient had follow-up appointment with his primary care provider where routine labs were ordered. Was called after potassium was found to be 7.2 and told to present to the ED for further evaluation and workup. Patient himself denies any significant acute medical concerns. States he only presented to the hospital due to his abnormal labs. Has had occasional abdominal pain since his surgery, but nothing currently. Denies nausea or vomiting. No chest pain/pressure, palpitations. Denies fever, chills. No lightheadedness or dizziness. In the ED pt and soft BP as low as 104/43, vitals otherwise WNL. Labs were significant for sodium 131, potassium 6.6, BUN 24, creatinine 1.76, ALT 61, and alk-phos 186. UA positive for UTI. Ct of abd/pelvis pending. EKG demonstrated atrial paced rhythm with prolonged AV conduction, but no evidence of significant ST elevations or depressions. Pt was treated with Lokelma, calcium gluconate, IVF, and ceftriaxone. Pt will be admitted to the hospital for treatment and further evaluation of ANIL and hyperkalemia secondary to dehydration from high output ileostomy. Review of Systems Review of Systems: Patient has no acute medical complaints at this time Denies fever, chills, nausea, vomiting No chest pain/pressure, palpitations Denies shortness a breath or difficulty breathing No lightheadedness or dizziness [facility] Medical History Aftercare following left shoulder joint replacement surgery Pacemaker OA (osteoarthritis) Borderline hyperlipidemia Obesity HTN (hypertension) EtOH dependence Mild cognitive impairment Inhibited sex excitement Atrial fibrillation Cancer of kidney High cholesterol Hypertension Family History Mother Heart problem Social History Household Members: Spouse Housing: House Do you presently have visiting nurse or other home services: No Alcohol intake: former Comment: refusing alarms Patient Tobacco Use Status: Former Tobacco user Smoked in Last 30 Days: No Use of substances other than those prescribed or required for medical reasons: No Advance Directives: Yes Advance Directives on File: Yes Advance Directives Date on File: 11/29/22 Nutrition Risks: Gastrointestinal Malabsorption and Surgical patient >75years service: Yes Meds Allergies Allergy/AdvReac Type Severity Reaction Status Date / Time No Known Allergies [NKA] Allergy Mild NOT Verified 10/12/23 16:00 APPLICABLE Active Medications: Current Medications Acetaminophen (Acetaminophen 325 Mg Tablet) 650 mg PO Q6H PRN PRN Reason: Pain, Mild (Pain Scale 1-3), fever or headache Calcium Carbonate (Calcium Carbonate 750 Mg Tab.Chew) 750 mg PO Q4H PRN PRN Reason: Heartburn Ceftriaxone Sodium 1 gm/ (Sodium Chloride) 50 mls @ 100 mls/hr IV Q24H NILE Dextrose (D10) 250 mls @ 750 mls/hr IV Q15M ONE Stop: 10/12/23 20:22 Insulin Human Regular (Insulin Regular, Human 100 Unit/Ml 10 Ml Vial) 5 unit IVPUSH ONCE ONE Stop: 10/12/23 20:03 Magnesium Hydroxide (Milk Of Magnesia 30 Ml Oral.Susp) 30 ml PO DAILY PRN PRN Reason: Constipation Melatonin (Melatonin 3 Mg Tablet) 6 mg PO BEDTIME PRN PRN Reason: Insomnia Ondansetron HCl (Ondansetron Hcl 4 Mg/2 Ml Vial) 4 mg IVPUSH Q8H PRN PRN Reason: Nausea and Vomiting Sodium Chloride (0.9 % Sodium Chloride Flush 3 Ml Syringe) [address] [facility] Home Medications ?Medication ?Instructions ?Recorded ?Confirmed ?Last Taken ?Type clindamycin phosphate 1 % lotion 1 appl topical BID PRN Acne 10/12/23 10/12/23 Unknown History clobetasol 0.05 % topical cream 1 appl topical BID PRN 10/12/23 10/12/23 Unknown History Itching/Burning lisinopril 5 mg tablet 5 mg PO DAILY 10/12/23 10/12/23 10/12/23 12:00 History pramoxine 1 % lotion 1 appl topical BID PRN Itchy Skin 10/12/23 10/12/23 Unknown History Physical Exam Vital Signs and Narrative: Vital Signs: Last Vital Signs Temp 98.0 F 10/12/23 20:00 Pulse 60 10/12/23 20:00 Resp 16 10/12/23 20:00 BP 130/52 L 10/12/23 20:00 Pulse Ox 98 10/12/23 20:00 O2 Del Method Room Air 10/12/23 20:00 BMI result Body Mass Index 27.7 General: AOx3, no acute distress Resp: CTA bilaterally CVS: S1, S2, RRR GI: +BS, NT, no distention. Ileostomy with primarily liquid output. Abdomen with suprapubic ana in place. Surgical incision clean, dry, and no signs of infection. Skin: Warm, dry Neuro: Cranial nerves II-XII grossly intact bilaterally. Motor grossly intact bilaterally Extremities: No edema Psych: Appropriate affect Results Labs 10/12/23 16:52 10/12/23 21:09 Labs: Laboratory Results - last 24 hr 10/12/23 10/12/23 16:52 18:32 MCV 97.9 MCH 31.1 MCHC 31.8 RDW 16.2 H Plt Count 420 H D MPV 9.8 Immature Gran % (Auto) Cancelled Neut % (Auto) Cancelled Lymph % (Auto) Cancelled Rice % (Auto) Cancelled Eos % (Auto) Cancelled Baso % (Auto) Cancelled Lymph # (Auto) Cancelled Rice # (Auto) Cancelled Eos # (Auto) Cancelled Baso # (Auto) Cancelled Abs Immat Gran (auto) Cancelled Absolute Neuts (auto) Cancelled Absolute Nucleated RBC 0.000 Nucleated RBC % (auto) 0.0 Neutrophils % (Manual) 87 H Band Neutrophils % 1 L Lymphocytes % (Manual) 3 L Monocytes % (Manual) 6 Myelocytes % 3 Abs Neuts (Manual) 14.3 H Lymphocytes # (Manual) 0.5 L Monocytes # (Manual) 1.0 Myelocytes # 0.5 Platelet Estimate NORMAL Plt Morphology Comment NORMAL RBC Morphology NOTED Microcytosis 1+ (5-14) Anion Gap 12 Estim Creat Clear Calc 36.2 Estimated GFR 38 Random Glucose 106 Calcium 8.6 Magnesium 2.3 Total Bilirubin 0.8 AST 36 ALT 61 H Alkaline Phosphatase 186 H Total Protein 6.7 Albumin 3.1 L Lipase 23 Urine Color Dark Yellow Urine Appearance Turbid Urine pH 5.0 Ur Specific [place] 1.015 Urine Protein 30 (1+) H Urine Glucose (UA) Negative Urine Ketones Negative Urine Blood Moderate (2+) H Urine Nitrite Positive H Ur Leukocyte Esterase Large (3+) H Urine RBC 3-5 H Urine WBC >50 H Ur Squamous Epith Cells 0-2 Urine Bacteria 4+ Hyaline Casts 3-5 Assessment and Plan (1) ANIL (acute kidney injury): Status: Acute (2) Acute hyperkalemia: Status: Acute (3) Hyponatremia: Status: Acute Plan Pt is a 78-year-old male with a PMH significant for?AFib on Eliquis, sick sinus syndrome with pacemaker in place, HTN, degenerative arthritis, and rectal cancer s/p ileostomy who presents to the ED for evaluation of abnormal labs. Pt will be admitted to the hospital for treatment and further evaluation of ANIL and hyperkalemia secondary to dehydration from high output ileostomy. ANIL Creatinine 0.76 at time of presentation, up from 1.23 on 08/24/2023 Likely secondary to dehydration from high output illeostomy Patient received IVF in the ED Consider antimotility medications to reduce ileostomy output Follow BMP Hyperkalemia Potassium 6.6 at time of presentation Likely secondary to high output ileostomy Patient asymptomatic, EKG without ischemic changes Patient given Lokelma, calcium gluconate in the ED Follow up potassium Monitor on telemetry Hyponatremia Sodium 131 at time of presentation Likely secondary to dehydration high output ileostomy Treat as above with IVF Follow BMP Acute UTI Patient does not meet sepsis criteria: Leukocytosis, but no tachycardia, tachypnea, or fever Will treat with ceftriaxone, started 10/12/2023 Follow cultures HTN Hold antihypertensives due to soft BP from dehydration Treat as above Resume as indicated Paroxysmal AFib Continue Eliquis, diltiazem Hold metoprolol due to soft BP, resume as warranted GERD PPI Full Code Attending:?Dr. Gamboa DVT Prophylaxis: On Eliquis Pt will require a hospitalization of at least two nights for treatment of?ANIL, hyperkalemia, and hyponatremia in the setting of dehydration secondary to high output ileostomy where patient will require close monitoring of labs and cardiac function. Quality Stroke Does the patient have a stroke diagnosis?: No VTE Prior VTE?: No VTE Risk Level:: Medical - moderate - high VTE Device Contraindication: Treatment Not Indicated VTE Drug Contraindication: N/A - Med Ordered
--- NOTE | 2023-10-12 20:34 | MHC.EDTECH ---
Per provider ,not to get repeated labs until fluids are finish .
--- NOTE | 2023-10-12 20:57 | PHA.MEDREC ---
Addendum entered by Traci Terrazas RPh 10/12/23 21:10: Reviewed by [facility] Original Note: Pharmacy Consult ? Medication Reconciliation Pharmacy has completed the medication reconciliation. Confirmed medications with list provided [facility] and patient confirmation on some medications. Patient confirmed they are no longer taking the Capecitabine 500mg tabs and has not had to take them in months. He confirmed he took his medications last today around 12-1 this afternoon.
[2023-10-12] MEDS: Dextrose 10 % 250 ML 750 ML IV (21:14)
[2023-10-12] MEDS: Insulin Regular, Human 100 UNIT/ML 10 ML VIAL IVPUSH (21:14)
[2023-10-12 21:27] LABS: Lactic Acid 1.1 mmol/L (0.5-2.0)
[2023-10-12 21:35] LABS: Anion Gap 12 (12-20); Blood Urea Nitrogen 22 mg/dL (9-16); Calcium 8.8 mg/dL (8.4-10.2); Carbon Dioxide 20 mmol/L (22-29); Chloride 108 mmol/L (96-108); Creatinine Clr Calc Pharmacy 44.6; Estimated Glomerular Filt Rate 48; Glucose Random 91 mg/dL (60-115); Potassium 6.2 mmol/L (3.3-5.1); Sodium 134 mmol/L (135-145)
--- NOTE | 2023-10-12 21:51 | PC.NURSE ---
ileostomy emptied at this time. pt given sandwich and marcus judd per request. resting comfortably
[2023-10-12 22:40] VITALS: BP 149/67; PULSE 60; RESP 18; TEMP 36.3; O2SAT 97; BMI 27.9
[2023-10-12] MEDS: 0.9 % Sodium Chloride Flush 3 ML SYRINGE IVFLUSH (22:44)
[2023-10-12] MEDS: Acetaminophen 325 MG TABLET 650 MG PO (22:48)
[2023-10-12] MEDS: Melatonin 3 MG TABLET 6 MG PO (22:49)
[2023-10-13] VITALS (7 sets, daily range): BP systolic 142–170; BP diastolic 65–74; PULSE 58–110; RESP 18–20; TEMP 36.1–37.1; O2SAT 96–98
[2023-10-13 06:39] LABS: Hematocrit 25.7 % (42.0-52.0); Mean Corpuscular HGB Conc 31.1 g/dl (31.0-36.0); Mean Corpuscular Volume 99.6 fL (80.0-98.0); Platelet Count 381 X10*3/uL (160-400); Red Blood Count 2.58 X10*6/uL (4.60-5.80); Red Cell Distribution Width 16.1 % (11.0-16.0); White Blood Count 13.3 X10*3/uL (4.8-10.8)
[2023-10-13 07:16] LABS: Anion Gap 12 (12-20); Blood Urea Nitrogen 19 mg/dL (9-16); Calcium 8.6 mg/dL (8.4-10.2); Carbon Dioxide 20 mmol/L (22-29); Chloride 110 mmol/L (96-108); Creatinine Clr Calc Pharmacy 51.6; Estimated Glomerular Filt Rate 52; Glucose Random 109 mg/dL (60-115); Potassium 6.1 mmol/L (3.3-5.1); Sodium 136 mmol/L (135-145)
[2023-10-13 07:45] LABS: Band Neutrophils Percent 2 % (3-5); Basophils Abs Manual 0.1 X10*3/uL (0.0-0.2); Basophils Percent Manual 1 % (0-2); Eosinophils Absolute Manual 0.3 X10*3/uL (0.0-0.4); Eosinophils Percent Manual 2 % (0-4); Lymphocytes Absolute Manual 0.8 X10*3/uL (1.2-4.9); Lymphocytes Percent Manual 6 % (20-40); Monocytes Absolute Manual 0.5 X10*3/uL (0.1-1.2); Monocytes Percent Manual 4 % (2-11); Myelocytes Absolute 0.3 X10*/uL; Myelocytes Percent 2 %; Neutrophils Absolute Manual 11.3 X10*3/uL (2.0-8.3); Neutrophils Percent Manual 83 % (45-73)
[2023-10-13 07:47] LABS: Macrocytosis 1+ (5-14) /OIF; Polychromasia 1+ (0-2) /OIF; RBC Morphology NOTED
[2023-10-13 07:50] LABS: Microcytosis 1+ (5-14) /OIF; Platelet Estimate NORMAL (NORMAL); Platelet Morphology Comment NORMAL
[2023-10-13] MEDS: 0.9 % Sodium Chloride Flush 3 ML SYRINGE IVFLUSH ×3 (07:57→20:33)
[2023-10-13] MEDS: Sodium Zirconium Cyclosilicate 10 GM POWD.PACK PO (07:57)
--- NOTE | 2023-10-13 08:34 | MHC.CM.PN ---
Patient lives in an apartment with his /HCP/[place]. Home/self care is the goal and CM has initiated and will follow for dc planning. PCP is Dr. Joao Duncan, through the [facility]. Friend will transport to home.
--- NOTE | 2023-10-13 09:29 | PM.CNGS ---
History of Present Illness Consult details Consult date: 10/13/23 Narrative: 78-year-old male with a history of rectal carcinoma. He had undergone neoadjuvant treatment and eventually had a low anterior resection, diverting loop ileostomy in [facility] last September 24, 2023. He says that he was therefore 10 days. He has known atrial fibrillation and is on anticoagulation. He had routine labs as an outpatient with his primary care physician yesterday and his potassium was 7.2 so he was sent to the ER He also had a CAT scan done in the ER in this showed what appeared to be a mesenteric hematoma. We were therefore consulted . The patient otherwise has been tolerating his diet well. He denies any abdominal pain. He has ileostomy has been functioning well.. He says that he had been doing well at home and would not have come to the ER if not for his abnormal potassium. Review of Systems Constitutional: Constitutional: Denies chills and Denies fever(s) Cardiovascular: Cardiovascular: Denies chest pain, Denies dyspnea and Denies dyspnea on exertion Respiratory: Respiratory: Denies cough, Denies dyspnea and Denies dyspnea on exertion Gastrointestinal: Gastrointestinal: Denies hematochezia Comments: Has ileostomy Genitourinary: Genitourinary: Denies hematuria and Denies difficulty urinating Musculoskeletal: Musculoskeletal: Denies back pain and Denies limited range of motion Neurologic: Denies focal weakness and Denies convulsions Psychiatric: Psychiatric: Denies depression and Denies mood swings [facility] Past Medical History Medical History (Updated 10/13/23 @ 09:34 by Sj Yi MD) Postoperative hematoma involving digestive system following digestive system procedure Aftercare following left shoulder joint replacement surgery Pacemaker OA (osteoarthritis) Borderline hyperlipidemia Obesity HTN (hypertension) EtOH dependence Mild cognitive impairment Inhibited sex excitement Atrial fibrillation Cancer of kidney High cholesterol Hypertension Family History Family History Mother Heart problem Social History Social History Household Members: Spouse Housing: House Do you presently have visiting nurse or other home services: No Alcohol intake: former Comment: refusing alarms Patient Tobacco Use Status: Former Tobacco user Tobacco use type: Cigarette Advance Directives Date on File: 11/29/22 service: Yes Meds Allergies Allergy/AdvReac Type Severity Reaction Status Date / Time No Known Allergies [NKA] Allergy Mild NOT Verified 10/12/23 16:00 APPLICABLE Active Medications: Current Medications Acetaminophen (Acetaminophen 325 Mg Tablet) 650 mg PO Q6H PRN PRN Reason: Pain, Mild (Pain Scale 1-3), fever or headache Last Admin: 10/12/23 22:48 Dose: 650 mg Calcium Carbonate (Calcium Carbonate 750 Mg Tab.Chew) 750 mg PO Q4H PRN PRN Reason: Heartburn Ceftriaxone Sodium 1 gm/ (Sodium Chloride) 50 mls @ 100 mls/hr IV Q24H NILE Magnesium Hydroxide (Milk Of Magnesia 30 Ml Oral.Susp) 30 ml PO DAILY PRN PRN Reason: Constipation Melatonin (Melatonin 3 Mg Tablet) 6 mg PO BEDTIME PRN PRN Reason: Insomnia Last Admin: 10/12/23 22:49 Dose: 6 mg Ondansetron HCl (Ondansetron Hcl 4 Mg/2 Ml Vial) 4 mg IVPUSH Q8H PRN PRN Reason: Nausea and Vomiting Sodium Chloride (0.9 % Sodium Chloride Flush 3 Ml Syringe) 3 ml IVFLUSH QSHIFT [facility] Last Admin: 10/13/23 07:57 Dose: 3 ml Home Medications ?Medication ?Instructions ?Recorded ?Confirmed ?Last Taken ?Type clindamycin phosphate 1 % lotion 1 appl topical BID PRN Acne 10/12/23 10/12/23 Unknown History clobetasol 0.05 % topical cream 1 appl topical BID PRN 10/12/23 10/12/23 Unknown History Itching/Burning lisinopril 5 mg tablet 5 mg PO DAILY 10/12/23 10/12/23 10/12/23 12:00 History pramoxine 1 % lotion 1 appl topical BID PRN Itchy Skin 10/12/23 10/12/23 Unknown History Physical Exam Vital Signs: Vital Signs: Last Vital Signs Temp 97.1 F 10/13/23 07:56 Pulse 60 10/13/23 07:56 Resp 19 10/13/23 07:56 BP 142/67 H 10/13/23 07:56 Pulse Ox 98 10/13/23 07:56 O2 Del Method Room Air 10/13/23 07:56 BMI result Body Mass Index 27.9 Const: Other: Looks well General: comfortable and no acute distress Resp: Effort & Inspection: normal respiratory effort Cardio: Rate: regular rate GI: Other: Incision well healing, no evidence of wound infection, ileostomy functioning well Palpation (GI): Soft to palpation, not firm, nontender and no guarding Results Labs 10/13/23 05:58 10/14/23 14:17 Labs: Abnormal lab results 10/12/23 10/12/23 10/12/23 Range/Units 16:52 18:32 21:09 WBC 16.3 H (4.8-10.8) X10*3/uL RBC 2.80 L (4.60-5.80) X10*6/uL Hgb 8.7 L D (14.0-18.0) g/dl Hct 27.4 L D (42.0-52.0) % MCV (80.0-98.0) fL RDW 16.2 H (11.0-16.0) % Plt Count 420 H D (160-400) X10*3/uL Neutrophils % (Manual) 87 H (45-73) % Band Neutrophils % 1 L (3-5) % Lymphocytes % (Manual) 3 L (20-40) % Abs Neuts (Manual) 14.3 H (2.0-8.3) X10*3/uL Lymphocytes # (Manual) 0.5 L (1.2-4.9) X10*3/uL Sodium 131 L 134 L (135-145) mmol/L Potassium 6.6 H* D 6.2 H* (3.3-5.1) mmol/L Chloride (96-108) mmol/L Carbon Dioxide 19 L 20 L (22-29) mmol/L BUN 24 H 22 H (9-16) mg/dL Creatinine 1.76 H 1.43 H (0.5-1.4) mg/dL ALT 61 H (0-40) U/L Alkaline Phosphatase 186 H (39-117) U/L Albumin 3.1 L (3.5-5.0) g/dL Urine Protein 30 (1+) H (Neg-Trace) mg/dL Urine Blood Moderate (2+) H (Negative) Urine Nitrite Positive H (Negative) Ur Leukocyte Esterase Large (3+) H (Negative) Urine RBC 3-5 H (0-2) /HPF Urine WBC >50 H (0-5) /HPF 10/13/23 Range/Units 05:58 WBC 13.3 H (4.8-10.8) X10*3/uL RBC 2.58 L (4.60-5.80) X10*6/uL Hgb 8.0 L (14.0-18.0) g/dl Hct 25.7 L (42.0-52.0) % MCV 99.6 H (80.0-98.0) fL RDW 16.1 H (11.0-16.0) % Plt Count (160-400) X10*3/uL Neutrophils % (Manual) 83 H (45-73) % Band Neutrophils % 2 L (3-5) % Lymphocytes % (Manual) 6 L (20-40) % Abs Neuts (Manual) 11.3 H (2.0-8.3) X10*3/uL Lymphocytes # (Manual) 0.8 L (1.2-4.9) X10*3/uL Sodium (135-145) mmol/L Potassium 6.1 H* (3.3-5.1) mmol/L Chloride 110 H (96-108) mmol/L Carbon Dioxide 20 L (22-29) mmol/L BUN 19 H (9-16) mg/dL Creatinine (0.5-1.4) mg/dL ALT (0-40) U/L Alkaline Phosphatase (39-117) U/L Albumin (3.5-5.0) g/dL Urine Protein (Neg-Trace) mg/dL Urine Blood (Negative) Urine Nitrite (Negative) Ur Leukocyte Esterase (Negative) Urine RBC (0-2) /HPF Urine WBC (0-5) /HPF Short CBC 10/12/23 10/13/23 Range/Units 16:52 05:58 WBC 16.3 H 13.3 H (4.8-10.8) X10*3/uL Hgb 8.7 L D 8.0 L (14.0-18.0) g/dl Hct 27.4 L D 25.7 L (42.0-52.0) % Plt Count 420 H D 381 (160-400) X10*3/uL BMP 10/12/23 10/12/23 10/13/23 16:52 21:09 05:58 Sodium 131 L 134 L 136 Potassium 6.6 H* D 6.2 H* 6.1 H* Chloride 107 108 110 H Carbon Dioxide 19 L 20 L 20 L BUN 24 H 22 H 19 H Creatinine 1.76 H 1.43 H 1.34 Calcium 8.6 8.8 8.6 Liver Function 10/12/23 Range/Units 16:52 Total Bilirubin 0.8 (0.0-1.0) mg/dL AST 36 (5-37) U/L ALT 61 H (0-40) U/L Alkaline Phosphatase 186 H (39-117) U/L Albumin 3.1 L (3.5-5.0) g/dL Urine 10/12/23 Range/Units 18:32 Urine Color Dark Yellow Urine Appearance Turbid Urine pH 5.0 (5.0-9.0) Ur Specific [place] 1.015 (1.005-1.025) Urine Protein 30 (1+) H (Neg-Trace) mg/dL Urine Glucose (UA) Negative (Negative) mg/dL All other labs normal. Laboratory Results WBC 13.3 X10*3/uL (4.8-10.8) H 10/13/23 05:58 RBC 2.58 X10*6/uL (4.60-5.80) L 10/13/23 05:58 Hgb 8.0 g/dl (14.0-18.0) L 10/13/23 05:58 Hct 25.7 % (42.0-52.0) L 10/13/23 05:58 MCV 99.6 fL (80.0-98.0) H 10/13/23 05:58 MCH 31.0 pg (27.0-33.0) 10/13/23 05:58 MCHC 31.1 g/dl (31.0-36.0) 10/13/23 05:58 RDW 16.1 % (11.0-16.0) H 10/13/23 05:58 Plt Count 381 X10*3/uL (160-400) 10/13/23 05:58 MPV 10.0 fL (9.4-12.4) 10/13/23 05:58 Immature Gran % (Auto) Cancelled 10/13/23 05:58 Neut % (Auto) Cancelled 10/13/23 05:58 Lymph % (Auto) Cancelled 10/13/23 05:58 [place] % (Auto) Cancelled 10/13/23 05:58 Eos % (Auto) Cancelled 10/13/23 05:58 Baso % (Auto) Cancelled 10/13/23 05:58 Lymph # (Auto) Cancelled 10/13/23 05:58 [place] # (Auto) Cancelled 10/13/23 05:58 Eos # (Auto) Cancelled 10/13/23 05:58 Baso # (Auto) Cancelled 10/13/23 05:58 Abs Immat Gran (auto) Cancelled 10/13/23 05:58 Absolute Neuts (auto) Cancelled 10/13/23 05:58 Absolute Nucleated RBC 0.000 X10*3/uL (0.0-0.012) 10/13/23 05:58 Nucleated RBC % (auto) 0.0 /100WBC (0.0-0.2) 10/13/23 05:58 Neutrophils % (Manual) 83 % (45-73) H 10/13/23 05:58 Band Neutrophils % 2 % (3-5) L 10/13/23 05:58 Lymphocytes % (Manual) 6 % (20-40) L 10/13/23 05:58 Monocytes % (Manual) 4 % (2-11) 10/13/23 05:58 Eosinophils % (Manual) 2 % (0-4) 10/13/23 05:58 Basophils % (Manual) 1 % (0-2) 10/13/23 05:58 Myelocytes % 2 % 10/13/23 05:58 Abs Neuts (Manual) 11.3 X10*3/uL (2.0-8.3) H 10/13/23 05:58 Lymphocytes # (Manual) 0.8 X10*3/uL (1.2-4.9) L 10/13/23 05:58 Monocytes # (Manual) 0.5 X10*3/uL (0.1-1.2) 10/13/23 05:58 Eosinophils # (Manual) 0.3 X10*3/uL (0.0-0.4) 10/13/23 05:58 Basophils # (Manual) 0.1 X10*3/uL (0.0-0.2) 10/13/23 05:58 Myelocytes # 0.3 X10*/uL 10/13/23 05:58 Platelet Estimate NORMAL (NORMAL) 10/13/23 05:58 Plt Morphology Comment NORMAL 10/13/23 05:58 RBC Morphology NOTED 10/13/23 05:58 Polychromasia 1+ (0-2) /OIF 10/13/23 05:58 Microcytosis 1+ (5-14) /OIF 10/13/23 05:58 Macrocytosis 1+ (5-14) /OIF 10/13/23 05:58 Sodium 136 mmol/L (135-145) 10/13/23 05:58 Potassium 6.1 mmol/L (3.3-5.1) H* 10/13/23 05:58 Chloride 110 mmol/L (96-108) H 10/13/23 05:58 Carbon Dioxide 20 mmol/L (22-29) L 10/13/23 05:58 Anion Gap 12 (12-20) 10/13/23 05:58 BUN 19 mg/dL (9-16) H 10/13/23 05:58 Creatinine 1.34 mg/dL (0.5-1.4) 10/13/23 05:58 Estim Creat Clear Calc 51.6 10/13/23 05:58 Estimated GFR 52 10/13/23 05:58 Random Glucose 109 mg/dL (60-115) 10/13/23 05:58 Lactic Acid 1.1 mmol/L (0.5-2.0) 10/12/23 21:09 Calcium 8.6 mg/dL (8.4-10.2) 10/13/23 05:58 Magnesium 2.3 mg/dL (1.6-2.6) 10/12/23 16:52 Total Bilirubin 0.8 mg/dL (0.0-1.0) 10/12/23 16:52 AST 36 U/L (5-37) 10/12/23 16:52 ALT 61 U/L (0-40) H 10/12/23 16:52 Alkaline Phosphatase 186 U/L (39-117) H 10/12/23 16:52 Total Protein 6.7 g/dL (6.5-8.0) 10/12/23 16:52 Albumin 3.1 g/dL (3.5-5.0) L 10/12/23 16:52 Lipase 23 U/L (8-78) 10/12/23 16:52 Urine Color Dark Yellow 10/12/23 18:32 Urine Appearance Turbid 10/12/23 18:32 Urine pH 5.0 (5.0-9.0) 10/12/23 18:32 Ur Specific [place] 1.015 (1.005-1.025) 10/12/23 18: Urine Protein 30 (1+) mg/dL (Neg-Trace) H 10/12/23 18:32 Urine Glucose (UA) Negative mg/dL (Negative) 10/12/23 18: Urine Ketones Negative mg/dL (Negative) 10/12/23 18: Urine Blood Moderate (2+) (Negative) H 10/12/23 18: Urine Nitrite Positive (Negative) H 10/12/23 18:32 Ur Leukocyte Esterase Large (3+) (Negative) H 10/12/23 18: Urine RBC 3-5 /HPF (0-2) H 10/12/23 18:32 Urine WBC >50 /HPF (0-5) H 10/12/23 18:32 Ur Squamous Epith Cells 0-2 /HPF (0-2) 10/12/23 18:32 Urine Bacteria 4+ (None Seen) 10/12/23 18: Hyaline Casts 3-5 /LPF (0-2) 10/12/23 18:32 Impressions Abdomen/Pelvis CT 10/12/23 18:54 IMPRESSION: 1. There appears to have been a recent colon resection, with rectal anastomotic staple line showing a small amount of adjacent gas and fluid suspicious for a small and anastomotic leak. This is suboptimally evaluated without the benefit of oral contrast. There is a right lower quadrant ileostomy. Please correlate with the patient's Past Surgical History. Within the central mesentery, there is a 10.9 x 6.5 x 8.0 cm circumscribed collection of postcontrast Hounsfield value 40.1 units. This is suggestive of a large postoperative hematoma. General Surgery evaluation and management are recommended. 2. No urinary calculus or obstruction is seen. There is mild circumferential wall thickening of the urinary bladder, possibly infectious or inflammatory in etiology. Correlation with the patient's most recent urinalysis is recommended. 3. A 2.1 cm round density arises exophytically from the mid right kidney, possibly a complex cyst or solid lesion. This was indeterminate on the ultrasound examination of 11/06/2022 and could be more fully evaluated with MRI (renal mass protocol), if clinically indicated. 4. There is mild cholelithiasis. 5. There is marked degenerative disc disease at L3-4 and L4-5. Skeletal findings suggest possible DISH. No acute or aggressive osseous lesion is seen. This critical result was discussed with Dr. Marques at 10:05 PM on 10/12/2023, and it was ascertained that the content and urgency of this report was understood at the time of direct communication. Electronically signed by: Oscar Cruz MD 10/12/2023 10:11 PM EDT RP Imaging Abdomen CT scan report/results: report reviewed and image reviewed CT scan - pelvis: report reviewed and image reviewed Assessment and Plan (1) Postoperative hematoma involving digestive system following digestive system procedure: Status: Acute He had undergone low anterior resection rectal cancer after neoadjuvant treatment in [facility] last 09/24/2023. He was admitted for elevated potassium. His electrolte derangement is likely from his ieostomy fluid losses. He had a CAT scan done to rule out obstructive uropathy and this had shown large mesenteric hematoma as described above. This is likely to be postop hematoma. He has almost 3 weeks postop. He otherwise is asymptomatic with regards to this. He has good GI functions. His hemoglobin drifted down since admission but this is likely because of IV fluids. At this time, it does not require surgical intervention. His hemoglobin should be followed in case he needs transfusion Exam is very benign. He looks well overall. I will follow along while he is in the hospital. The patient states that he has a follow-up with [facility] this coming week as well. His ileostomy is functioning well. He seems to be doing well postoperatively. Procedures Date of Service Date of Service: 10/16/23
[2023-10-13 13:40] LABS: Potassium 6.5 mmol/L (3.3-5.1)
--- NOTE | 2023-10-13 14:19 | HO.PM.IMPN ---
Subjective Subjective Date of Service: 10/13/23 Review of Systems Follow up hyperkalemia No pain, nausea or vomiting Physical Exam Vital Signs: Vital Signs: Last Vital Signs Temp 98.1 F 10/13/23 11:33 Pulse 60 10/13/23 11:33 Resp 20 10/13/23 11:33 BP 168/72 H 10/13/23 11:33 Pulse Ox 98 10/13/23 11:33 O2 Del Method Room Air 10/13/23 11:33 BMI result Body Mass Index 27.9 Appearing in no acute distress lung sounds are clear to auscultation heart regular rate rhythm, clear S1, S2 positive bowel sounds, abdomen is soft, nontender neuro patient is alert x3, no focal deficits Objective Data Active Medications Acetaminophen (Acetaminophen 325 Mg Tablet) 650 mg PO Q6H PRN PRN Reason: Pain, Mild (Pain Scale 1-3), fever or headache Last Admin: 10/12/23 22:48 Dose: 650 mg Documented By: ROBERTH Calcium Carbonate (Calcium Carbonate 750 Mg Tab.Chew) 750 mg PO Q4H PRN PRN Reason: Heartburn Ceftriaxone Sodium 1 gm/ (Sodium Chloride) 50 mls @ 100 mls/hr IV Q24H NILE Calcium Gluconate (Calcium Gluconate) 1 gm in 50 mls @ 50 mls/hr IV ONCE ONE Stop: 10/13/23 14:53 Magnesium Hydroxide (Milk Of Magnesia 30 Ml Oral.Susp) 30 ml PO DAILY PRN PRN Reason: Constipation Melatonin (Melatonin 3 Mg Tablet) 6 mg PO BEDTIME PRN PRN Reason: Insomnia Last Admin: 10/12/23 22:49 Dose: 6 mg Documented By: ROBERTH Ondansetron HCl (Ondansetron Hcl 4 Mg/2 Ml Vial) 4 mg IVPUSH Q8H PRN PRN Reason: Nausea and Vomiting Sodium Chloride (0.9 % Sodium Chloride Flush 3 Ml Syringe) [facility] Last Admin: 10/13/23 07:57 Dose: 3 ml Documented By: [facility] 10/13/23 05:58 10/13/23 12:56 Labs: Laboratory Results - last 24 hr 10/12/23 10/12/23 10/12/23 16:52 18:32 21:09 MCV 97.9 MCH 31.1 MCHC 31.8 RDW 16.2 H Plt Count 420 H D MPV 9.8 Immature Gran % (Auto) Cancelled Neut % (Auto) Cancelled Lymph % (Auto) Cancelled [place] % (Auto) Cancelled Eos % (Auto) Cancelled Baso % (Auto) Cancelled Lymph # (Auto) Cancelled [place] # (Auto) Cancelled Eos # (Auto) Cancelled Baso # (Auto) Cancelled Abs Immat Gran (auto) Cancelled Absolute Neuts (auto) Cancelled Absolute Nucleated RBC 0.000 Nucleated RBC % (auto) 0.0 Neutrophils % (Manual) 87 H Band Neutrophils % 1 L Lymphocytes % (Manual) 3 L Monocytes % (Manual) 6 Eosinophils % (Manual) Basophils % (Manual) Myelocytes % 3 Abs Neuts (Manual) 14.3 H Lymphocytes # (Manual) 0.5 L Monocytes # (Manual) 1.0 Eosinophils # (Manual) Basophils # (Manual) Myelocytes # 0.5 Platelet Estimate NORMAL Plt Morphology Comment NORMAL RBC Morphology NOTED Polychromasia Microcytosis 1+ (5-14) Macrocytosis Anion Gap 12 12 Estim Creat Clear Calc 36.2 44.6 Estimated GFR 38 48 Random Glucose 106 91 Lactic Acid 1.1 Calcium 8.6 8.8 Magnesium 2.3 Total Bilirubin 0.8 AST 36 ALT 61 H Alkaline Phosphatase 186 H Total Protein 6.7 Albumin 3.1 L Lipase 23 Urine Color Dark Yellow Urine Appearance Turbid Urine pH 5.0 Ur Specific [place] 1.015 Urine Protein 30 (1+) H Urine Glucose (UA) Negative Urine Ketones Negative Urine Blood Moderate (2+) H Urine Nitrite Positive H Ur Leukocyte Esterase Large (3+) H Urine RBC 3-5 H Urine WBC >50 H Ur Squamous Epith Cells 0-2 Urine Bacteria 4+ Hyaline Casts 3-5 10/13/23 05:58 MCV 99.6 H MCH 31.0 MCHC 31.1 RDW 16.1 H Plt Count 381 MPV 10.0 Immature Gran % (Auto) Cancelled Neut % (Auto) Cancelled Lymph % (Auto) Cancelled [place] % (Auto) Cancelled Eos % (Auto) Cancelled Baso % (Auto) Cancelled Lymph # (Auto) Cancelled [place] # (Auto) Cancelled Eos # (Auto) Cancelled Baso # (Auto) Cancelled Abs Immat Gran (auto) Cancelled Absolute Neuts (auto) Cancelled Absolute Nucleated RBC 0.000 Nucleated RBC % (auto) 0.0 Neutrophils % (Manual) 83 H Band Neutrophils % 2 L Lymphocytes % (Manual) 6 L Monocytes % (Manual) 4 Eosinophils % (Manual) 2 Basophils % (Manual) 1 Myelocytes % 2 Abs Neuts (Manual) 11.3 H Lymphocytes # (Manual) 0.8 L Monocytes # (Manual) 0.5 Eosinophils # (Manual) 0.3 Basophils # (Manual) 0.1 Myelocytes # 0.3 Platelet Estimate NORMAL Plt Morphology Comment NORMAL RBC Morphology NOTED Polychromasia 1+ (0-2) Microcytosis 1+ (5-14) Macrocytosis 1+ (5-14) Anion Gap 12 Estim Creat Clear Calc 51.6 Estimated GFR 52 Random Glucose 109 Lactic Acid Calcium 8.6 Magnesium Total Bilirubin AST ALT Alkaline Phosphatase Total Protein Albumin Lipase Urine Color Urine Appearance Urine pH Ur Specific [place] Urine Protein Urine Glucose (UA) Urine Ketones Urine Blood Urine Nitrite Ur Leukocyte Esterase Urine RBC Urine WBC Ur Squamous Epith Cells Urine Bacteria Hyaline Casts Microbiology Microbiology Results: Microbiology 10/12/23 18:32 Urine Culture - Preliminary Urine clean catch - Clean Catch Midstream Culture too young to evaluate. Assessment and Plan (1) ANIL (acute kidney injury): Status: Acute Plan Pt is a 78-year-old male with a PMH significant for?AFib on Eliquis, sick sinus syndrome with pacemaker in place, HTN, degenerative arthritis, and rectal cancer s/p ileostomy who presents to the ED for evaluation of abnormal labs. Pt will be admitted to the hospital for treatment and further evaluation of ANIL and hyperkalemia secondary to dehydration from high output ileostomy. ANIL 1.34 today, better Likely secondary to dehydration from high output illeostomy Patient received IVF in the ED Consider antimotility medications to reduce ileostomy output Follow BMP Hyperkalemia Potassium 6.5 Likely secondary to high output ileostomy Patient asymptomatic, EKG without ischemic changes [place], calcium gluconate Follow up potassium Monitor on telemetry Hyponatremia. Resolved Likely secondary to dehydration high output ileostomy Treat as above with IVF Follow BMP Acute UTI Patient does not meet sepsis criteria: Leukocytosis, but no tachycardia, tachypnea, or fever Will treat with ceftriaxone, started 10/12/2023 Follow cultures HTN Hold antihypertensives due to soft BP from dehydration Treat as above Resume as indicated Paroxysmal AFib Continue Eliquis, diltiazem Hold metoprolol due to soft BP, resume as warranted GERD PPI Full Code Attending:?Dr. Addison DVT Prophylaxis: On Eliquis Quality Stroke Does the patient have a stroke diagnosis?: No VTE Prior VTE?: No VTE Risk Level:: Medical - moderate - high VTE Device Contraindication: Treatment Not Indicated VTE Drug Contraindication: N/A - Med Ordered
[2023-10-13] MEDS: Sodium Zirconium Cyclosilicate 5 GM POWD.PACK 15 GM PO (14:24)
[2023-10-13] MEDS: Calcium Gluconate/NaCl,Iso-Osm 1 GM/50 ML PLAST..BAG IV (14:24)
[2023-10-13] MEDS: dilTIAZem HCL CD 240 MG CAP.ER.DEG PO (14:47)
[2023-10-13] MEDS: lisinopriL 5 MG TABLET PO (14:47)
[2023-10-13] MEDS: Omeprazole 20 MG CAPSULE.DR PO (14:47)
[2023-10-13] MEDS: Amiodarone HCL 200 MG TABLET PO (14:47)
[2023-10-13 18:35] LABS: Potassium 5.8 mmol/L (3.3-5.1)
[2023-10-13] MEDS: Melatonin 3 MG TABLET 6 MG PO (20:30)
[2023-10-13] MEDS: Ferrous Sulfate 324 MG TABLET.DR PO (20:30)
[2023-10-13] MEDS: Ascorbic Acid 250 MG TABLET PO (20:30)
[2023-10-13] MEDS: cefTRIAXone sodium 1 GM in 0.9 % Sodium Chloride 50 ML IV (20:30)
[2023-10-13] MEDS: Apixaban 5 MG TABLET PO (20:30)
[2023-10-13] MEDS: Metoprolol Tartrate 100 MG TABLET PO (20:30)
[2023-10-13] MEDS: Calcium Carbonate 750 MG TAB.CHEW PO (23:33)
[2023-10-14 03:14] VITALS: BP 157/70; PULSE 56; RESP 18; TEMP 36.4; O2SAT 97
[2023-10-14] MEDS: Omeprazole 20 MG CAPSULE.DR PO ×2 (05:32→16:19)
[2023-10-14 07:16] VITALS: BP 153/65; PULSE 60; RESP 20; TEMP 36.1; O2SAT 97
[2023-10-14] MEDS: Metoprolol Tartrate 100 MG TABLET PO (09:19)
[2023-10-14] MEDS: dilTIAZem HCL CD 240 MG CAP.ER.DEG PO (09:19)
[2023-10-14] MEDS: lisinopriL 5 MG TABLET PO (09:19)
[2023-10-14] MEDS: Ferrous Sulfate 324 MG TABLET.DR PO (09:19)
[2023-10-14] MEDS: Amiodarone HCL 200 MG TABLET PO (09:19)
[2023-10-14] MEDS: Ascorbic Acid 250 MG TABLET PO (09:19)
[2023-10-14] MEDS: Apixaban 5 MG TABLET PO (09:19)
[2023-10-14] MEDS: Sodium Zirconium Cyclosilicate 5 GM POWD.PACK 15 GM PO (09:22)
[2023-10-14] MEDS: 0.9 % Sodium Chloride Flush 3 ML SYRINGE IVFLUSH ×2 (09:22→16:20)
[2023-10-14 09:38] LABS: Anion Gap 14 (12-20); Blood Urea Nitrogen 12 mg/dL (9-16); Calcium 8.7 mg/dL (8.4-10.2); Carbon Dioxide 18 mmol/L (22-29); Chloride 109 mmol/L (96-108); Creatinine Clr Calc Pharmacy 69.9; Estimated Glomerular Filt Rate > 60; Glucose Random 103 mg/dL (60-115); Potassium 5.9 mmol/L (3.3-5.1); Sodium 135 mmol/L (135-145)
--- NOTE | 2023-10-14 09:50 | PM.PNGS ---
Subjective Subjective Date of Service: 10/14/23 Interval history: Denies abdominal pain Tolerating diet Stoma functioning well He feels well Physical Exam Vital Signs: Vital Signs: Last Vital Signs Temp 96.9 F 10/14/23 07:16 Pulse 60 10/14/23 07:16 Resp 20 10/14/23 07:16 BP 153/65 H 10/14/23 07:16 Pulse Ox 97 10/14/23 07:16 O2 Del Method Room Air 10/14/23 07:16 BMI result Body Mass Index 27.9 Const: General: comfortable and no acute distress Resp: Effort & Inspection: normal respiratory effort Cardio: Rate: regular rate GI: Other: Ileostomy with good output Palpation (GI): Soft to palpation, not firm, nontender and no guarding Objective Data Active Medications Acetaminophen (Acetaminophen 325 Mg Tablet) 650 mg PO Q6H PRN PRN Reason: Pain, Mild (Pain Scale 1-3), fever or headache Last Admin: 10/12/23 22:48 Dose: 650 mg Documented By: ROBERTH Amiodarone HCl (Amiodarone Hcl 200 Mg Tablet) 200 mg PO DAILY [facility] Last Admin: 10/14/23 09:19 Dose: 200 mg Documented By: WESLY Apixaban (Apixaban 5 Mg Tablet) 5 mg PO BID [facility] Last Admin: 10/14/23 09:19 Dose: 5 mg Documented By: WESLY Ascorbic Acid (Ascorbic Acid 250 Mg Tablet) 250 mg PO BID [facility] Last Admin: 10/14/23 09:19 Dose: 250 mg Documented By: WESLY Calcium Carbonate (Calcium Carbonate 750 Mg Tab.Chew) 750 mg PO Q4H PRN PRN Reason: Heartburn Last Admin: 10/13/23 23:33 Dose: 750 mg Documented By: ROBERTH Diltiazem HCl (Diltiazem Hcl Cd 240 Mg Cap.Er.Deg) 240 mg PO DAILY [facility]; Protocol Last Admin: 10/14/23 09:19 Dose: 240 mg Documented By: WSELY Ferrous Sulfate (Ferrous Sulfate 324 Mg Tablet.Dr) 324 mg PO BID [facility] Last Admin: 10/14/23 09:19 Dose: 324 mg Documented By: WESLY Ceftriaxone Sodium 1 gm/ (Sodium Chloride) 50 mls @ 100 mls/hr IV Q24H [facility] Last Infusion: 10/13/23 21:00 Dose: Infused Documented By: ROBERTH Lisinopril (Lisinopril 5 Mg Tablet) 5 mg PO DAILY [facility]; Protocol Last Admin: 10/14/23 09:19 Dose: 5 mg Documented By: WESLY Magnesium Hydroxide (Milk Of Magnesia 30 Ml Oral.Susp) 30 ml PO DAILY PRN PRN Reason: Constipation Melatonin (Melatonin 3 Mg Tablet) 6 mg PO BEDTIME PRN PRN Reason: Insomnia Last Admin: 10/13/23 20:30 Dose: 6 mg Documented By: ROBERTH Metoprolol Tartrate (Metoprolol Tartrate 100 Mg Tablet) 100 mg PO BID [facility]; Protocol Last Admin: 10/14/23 09:19 Dose: 100 mg Documented By: WESLY Omeprazole (Omeprazole 20 Mg Capsule.) 20 mg PO BID@0630,1630 [facility] Last Admin: 10/14/23 05:32 Dose: 20 mg Documented By: ROBERTH Ondansetron HCl (Ondansetron Hcl 4 Mg/2 Ml Vial) 4 mg IVPUSH Q8H PRN PRN Reason: Nausea and Vomiting Sodium Chloride (0.9 % Sodium Chloride Flush 3 Ml Syringe) 3 ml IVFLUSH QSHIFT [facility] Last Admin: 10/14/23 09:22 Dose: 3 ml Documented By: WESLY Labs 10/13/23 05:58 10/14/23 09:13 Labs: Laboratory Results - last 24 hr 10/13/23 10/14/23 18:13 09:13 Hold Purple Top SEE NOTE Anion Gap 14 Estim Creat Clear Calc 69.9 Estimated GFR > 60 Random Glucose 103 Calcium 8.7 Microbiology Microbiology Results: Microbiology 10/12/23 21:12 Blood Culture - Preliminary Blood - Venous No growth after 24 hours. 10/12/23 21:09 Blood Culture - Preliminary Blood - Venous No growth after 24 hours. 10/12/23 18:32 Urine Culture - Preliminary Urine clean catch - Clean Catch Midstream Culture too young to evaluate. Procedures Date of Service Date of Service: 10/14/23 Progress Note: A&P Assessment and plan (1) Postoperative hematoma involving digestive system following digestive system procedure: Status: Acute Assessment and Plan: Hematoma from recent low anterior resection in [place] He looks well clinically Abdomen is soft and benign Stable vital signs His potassium remains elevated Creatinine better Would recommend repeating his H&H Doing well overall Time Spent With Patient Time: Total time managing care of this patient today ____ minutes. Quality Stroke Does the patient have a stroke diagnosis?: No VTE Prior VTE?: No VTE Risk Level:: Medical - moderate - high VTE Device Contraindication: Treatment Not Indicated VTE Drug Contraindication: N/A - Med Ordered
[2023-10-14 11:10] VITALS: BP 121/57; PULSE 60; RESP 20; TEMP 36.1; O2SAT 100
[2023-10-14 11:39] LABS: Potassium 5.7 mmol/L (3.3-5.1)
[2023-10-14] MEDS: Sodium Zirconium Cyclosilicate 10 GM POWD.PACK PO (12:12)
[2023-10-14 14:36] LABS: Potassium 5.2 mmol/L (3.3-5.1)
[2023-10-14 15:04] VITALS: BP 132/62; PULSE 58; RESP 20; TEMP 36.2; O2SAT 97
--- NOTE | 2023-10-14 15:34 | P.DS_ITS ---
DS: Providers Provider Date of Service: 10/14/23 Date of admission: 10/12/23 20:01 Primary care physician: Joao Duncan Consults: 10/12/23 22:17 Consult to General Surgery Routine Consulting Provider: [facility] Reason for consultation: post op hematoma within the mesentery DS: Diagnosis Discharge Diagnosis (1) Postoperative hematoma involving digestive system following digestive system procedure: Status: Acute DS: Summary Hospital Course Hospital Course: History and physical as per admitting provider. Pt is a 78-year-old male with a PMH significant for?AFib on Eliquis, sick sinus syndrome with pacemaker in place, HTN, CAD, degenerative arthritis, and rectal cancer s/p ileostomy who presents to the ED for evaluation of abnormal labs. Patient was recently discharged on 10/04/2023 from [facility] after undergoing a lower anterior resection with diverting loop ileostomy on 09/24/2023. Patient had a prolonged hospital stay that was complicated by AFib with RVR that required cardiology consultation and medication optimization. Today patient had follow- up appointment with his primary care provider where routine labs were ordered. Was called after potassium was found to be 7.2 and told to present to the ED for further evaluation and workup. Patient himself denies any significant acute medical concerns. States he only presented to the hospital due to his abnormal labs. Has had occasional abdominal pain since his surgery, but nothing currently. Denies nausea or vomiting. No chest pain/pressure, palpitations. Denies fever, chills. No lightheadedness or dizziness. In the ED pt and soft BP as low as 104/43, vitals otherwise WNL. Labs were significant for sodium 131, potassium 6.6, BUN 24, creatinine 1.76, ALT 61, and alk-phos 186. UA positive for UTI. Ct of abd/pelvis pending. EKG demonstrated atrial paced rhythm with prolonged AV conduction, but no evidence of significant ST elevations or depressions. Pt was treated with Lokelma, calcium gluconate, IVF, and ceftriaxone. Pt will be admitted to the hospital for treatment and further evaluation of ANIL and hyperkalemia secondary to dehydration from high output ileostomy. 78-year-old man treated for ANIL, hyperkalemia and UTI. Creatinine was treated with IV fluids likely secondary to high output ileostomy. Ileostomy output is much less at this point. Patient has a history of recent abdominal surgery in [place]. He was noted to also have hyperkalemia which is also probably secondary to the high output ileostomy. He was treated with multiple doses doses of Lokelma, calcium gluconate x2 and 1 dose of insulin and D50. Potassium now down to 5.2. Patient will need to check his labs in 2 days. He already has a follow-up appointment in [place] and he could also have some labs checked at that time as well. He was also noted to have a urinary tract infection. Initially treated with IV Rocephin, transitioned to oral Ceftin for a total of 5 day treatment. Hyponatremia. Resolved . Likely secondary to dehydration high output ileostomy. Treated with IV fluids HTN continue home medications Paroxysmal AFib Continue Eliquis, diltiazem and metoprolol GERD PPI Time Attestation Discharge Coordination Time (in mins): 32 Quality: Safe Use of Opioids Does Pt have an Active Cancer Diagnosis on the Problem List?: No Quality: Stroke Does the patient have a stroke diagnosis?: No Physical Exam Vital Signs: Vital Signs: Last Vital Signs Temp 97.2 F 10/14/23 15:04 Pulse 58 10/14/23 15:04 Resp 20 10/14/23 15:04 BP 132/62 10/14/23 15:04 Pulse Ox 97 10/14/23 15:04 O2 Del Method Room Air 10/14/23 15:04 BMI result Body Mass Index 27.9 Appearing in no acute distress head is normocephalic atraumatic eyes pupils are PERRLA sclera is anicteric mouth throat mucous membranes are intact and moist neck is supple no lymphadenopathy, no JVD noted lung sounds are clear to auscultation heart regular rate rhythm, clear S1, S2 positive bowel sounds, abdomen is soft, nontender neuro patient is alert x3, no focal deficits DS: Data Data Completed and Pending Completed studies during hospitalization [Text1]: Procedures Control Bleeding in Gastrointestinal Tract, Via Natural or Artificial Opening Endoscopic (11/09/22) Destruction of Stomach, Pylorus, Via Natural or Artificial Opening Endoscopic (06/18/22) Excision of Ascending Colon, Via Natural or Artificial Opening Endoscopic, Diagnostic (06/18/22) Excision of Descending Colon, Via Natural or Artificial Opening Endoscopic, Diagnostic (06/18/22) Excision of Duodenum, Via Natural or Artificial Opening Endoscopic, Diagnostic (06/18/22) Excision of Rectum, Via Natural or Artificial Opening Endoscopic, Diagnostic (06/18/22) Excision of Stomach, Pylorus, Via Natural or Artificial Opening Endoscopic, Di agnostic (06/18/22) Insertion of Pacemaker Lead into Right Atrium, Percutaneous Approach (06/18/22) Insertion of Pacemaker Lead into Right Ventricle, Percutaneous Approach (06/18/22) Insertion of Pacemaker, Dual Chamber into Chest Subcutaneous Tissue and Fascia, Open Approach (06/18/22) Introduction of Mineral-based Topical Hemostatic Agent into Lower GI, Via Natural or Artificial Opening Endoscopic, [employer] 6 (11/09/22) Occlusion of Inferior Mesenteric Artery with Intraluminal Device, Percutaneous Approach (11/09/22) Transfusion of Nonautologous Red Blood Cells into Peripheral Vein, Percutaneous Approach (11/09/22) Labs on day of discharge: Laboratory Results - last 24 hr 10/13/23 10/14/23 10/14/23 18:13 09:13 11:19 Hold Purple Top SEE NOTE Sodium 135 Potassium 5.8 H 5.9 H 5.7 H Chloride 109 H Carbon Dioxide 18 L Anion Gap 14 BUN 12 Creatinine 0.99 Estim Creat Clear Calc 69.9 Estimated GFR > 60 Random Glucose 103 Calcium 8.7 10/14/23 14:17 Hold Purple Top Sodium Potassium 5.2 H Chloride Carbon Dioxide Anion Gap BUN Creatinine Estim Creat Clear Calc Estimated GFR Random Glucose Calcium Preliminary micro results at discharge 10/12/23 18:32 Urine Culture - Preliminary Urine clean catch - Clean Catch Midstream Gram negative ramesh 10/12/23 21:12 Blood Culture - Preliminary Blood - Venous No growth after 24 hours. 10/12/23 21:09 Blood Culture - Preliminary Blood - Venous No growth after 24 hours. Discharge Plan Discharge Anticipated Discharge Date/Time: 10/14/23 15:32 Patient Disposition: Home, Self-Care Discharge Diagnosis: Hyperkalemia ANIL UTI Referrals: Joao Duncan [Primary Care Provider] - 1 Week Discharge Medications: New cefuroxime axetil 500 mg tablet 500 mg PO BID Qty: 6 0RF Continued metoprolol tartrate 100 mg tablet 100 mg PO BID 90 Days Qty: 180 0RF Protocol: Hold for SBP/HR < HOLD for SBP < : 90 HOLD for HR < : 60 omeprazole 20 mg Capsule,Delayed Release(Dr/Ec) 20 mg PO BID@0630,1630 Qty: 60 0RF ferrous sulfate 325 mg (65 mg iron) Tablet 325 mg PO BID Qty: 60 3RF ascorbic acid (vitamin C) [Vitamin C] 500 mg Tablet 250 mg PO BID Qty: 60 3RF Eliquis 5 mg Tablet 5 mg PO BID Qty: 60 4RF clobetasol 0.05 % Cream 1 appl TOPICAL BID PRN (Reason: Itching/Burning) pramoxine 1 % Lotion 1 appl TOPICAL BID PRN (Reason: Itchy Skin) lisinopril 5 mg Tablet 5 mg PO DAILY clindamycin phosphate 1 % Lotion 1 appl TOPICAL BID PRN (Reason: Acne) diltiazem HCl 240 mg capsule,extended release 24hr 240 mg PO DAILY Qty: 90 3RF Rx Instructions: Dose increase from 180mg daily up to 240mg daily amiodarone 200 mg tablet 200 mg PO DAILY Qty: 90 1RF Rx Instructions: After loading dose. Discharge Orders: Discharge Order (Routine); Ordered 10/14/23 Ordered By: Nathalia Dawn Diet: Advance to usual diet Activity on Discharge: As tolerated Stand Alone Forms: Patient Portal Discharge page Print Language: Czech Other Ambulatory Orders: Basic Metabolic Panel (Routine) Timeframe: 2 Days Facility: [facility] - Location: Laboratory Ordered By: Nathalia Dawn Care Plan Goals: Follow low-potassium diet for a short time Check labs in 2 days Health Concerns: Hyperkalemia ANIL UTI Plan of Treatment: Follow-up with primary care provider as needed Follow-up with surgeon in [place] at next scheduled appointment Take all medications as prescribed Assessment: See discharge summary
--- NOTE | 2023-10-14 15:43 | MHC.CM.PN ---
Patient has been medically cleared for dc to home today, self care.
[2023-10-14] MEDS: cefuroxime axetiL 500 MG TABLET PO (17:41)
== END 2023-10-14 17:53 | disposition home or self-care (01) | DRG 920 ==
LOC: HO.ED 20:13 → HO.EDOVER 20:19 → HO.IMC 21:29
PROVIDERS: Physician Assistant; Physician Assistant Medical; Admitting Provider Student in an Organized Health Care Education/Training Program; Emergency Provider Emergency Medicine Emergency Medical Services; PCP Internal Medicine; Visit Provider Nurse Practitioner Acute Care
DX: K91.870 Postprocedural hematoma of a digestive system organ or structure following a digestive system procedure (principal); C20 Malignant neoplasm of rectum; D62 Acute posthemorrhagic anemia; N17.9 Acute kidney failure, unspecified; E87.1 Hypo-osmolality and hyponatremia; N39.0 Urinary tract infection, site not specified; I48.0 Paroxysmal atrial fibrillation; E86.0 Dehydration; I25.10 Atherosclerotic heart disease of native coronary artery without angina pectoris; I10 Essential (primary) hypertension; E87.5 Hyperkalemia; I49.5 Sick sinus syndrome; Z93.2 Ileostomy status; Z95.0 Presence of cardiac pacemaker; Z87.891 Personal history of nicotine dependence; Z79.01 Long term (current) use of anticoagulants; Z79.899 Other long term (current) drug therapy
CPT/HCPCS: 36415; 74176; 80048; 80053; 81001; 83605; 83690; 83735; 84132; 85007; 85025; 85027; 87040; 87086; 87088; 87186; 93005; 99285; J0613; J0696

== ENCOUNTER → 2023-10-12 20:01 | Outpatient (BNV) | payer OTHER, SELFPAY | PROVIDERS: Admitting Provider Student in an Organized Health Care Education/Training Program; Emergency Provider Emergency Medicine Emergency Medical Services; PCP Internal Medicine; Visit Provider Student in an Organized Health Care Education/Training Program | DX: K91.870 Postprocedural hematoma of a digestive system organ or structure following a digestive system procedure (principal) | CPT/HCPCS: 99223; 99232; 99239 ==

== ENCOUNTER → 2023-10-12 20:01 | Outpatient (BNV) | payer OTHER, SELFPAY | PROVIDERS: Admitting Provider Student in an Organized Health Care Education/Training Program; Emergency Provider Emergency Medicine Emergency Medical Services; PCP Internal Medicine; Visit Provider Surgery | DX: K91.870 Postprocedural hematoma of a digestive system organ or structure following a digestive system procedure (principal) | CPT/HCPCS: 99222; 99232 ==

== ENCOUNTER 2023-10-19 14:16 | Outpatient (AMB) | payer OTHER, SELFPAY ==
[2023-10-19 14:18] VITALS: BP 122/58; PULSE 60; BMI 27.5
--- NOTE | 2023-10-19 14:18 | A.OFFVIS_ITS ---
Vital Signs 10/19/23 14:18 Height 5 ft 10 in Weight 191 lb 5.78 oz BMI 27.5 BP 122/58 L Blood Pressure Location Lt brachial Position Sitting Pulse 60 Intake Visit Reasons: follow up post surgery Clinical Unit Educator Required: No Accompanied by: Spouse Allergies No Known Allergies [NKA] Allergy (Mild, Verified 10/12/23 16:00) NOT APPLICABLE Medication List - Last Reconciled 10/19/23 by Randy Melgar MD amiodarone 200 mg PO DAILY apixaban (Eliquis) 5 mg PO BID ascorbic acid (vitamin C) (Vitamin C) 250 mg (1/2 x 500 mg) PO BID cefuroxime axetil 500 mg PO BID clindamycin phosphate 1% 1 appl topical BID PRN clobetasol 0.05% 1 appl topical BID PRN diltiazem HCl CD 240 mg PO DAILY ferrous sulfate 325 mg PO BID lisinopril 5 mg PO DAILY metoprolol tartrate 100 mg See Protocol PO BID 90 days omeprazole 20 mg PO BID@0630,1630 pramoxine 1% 1 appl topical BID PRN HPI Comments Details: Mehran returns for follow-up. He has a history of atrial fibrillation and rapid ventricular rate. He was treated with beta-blockers and Eliquis. Then readmitted with dizziness and in that setting had almost 8 seconds duration conversion pauses. Then underwent permanent pacemaker implantation. Also found to be anemic and workup led to findings of rectal malignancy. More recently, he actually went for the surgery. The cardiology notes from that time reviewed. He seems to have had a bowel resection ileostomy and in that setting had ANIL, hyperkalemia. From the cardiac standpoint, he had atrial fibrillation with rapid ventricular rate but he had inferolateral ST depression which resolved with slower heart rates. He then converted to sinus rhythm. In fact, he was actually put on amiodarone preoperatively to prevent any atrial fibrillation episodes post surgery but it seems it still happened. Any case, patient states he feels okay and does not have any obvious complaints. [facility] Medical History (Updated 10/13/23 @ 09:34 by Sj Yi MD) Postoperative hematoma involving digestive system following digestive system procedure Aftercare following left shoulder joint replacement surgery Pacemaker OA (osteoarthritis) Borderline hyperlipidemia Obesity HTN (hypertension) EtOH dependence Mild cognitive impairment Inhibited sex excitement Atrial fibrillation Cancer of kidney High cholesterol Hypertension Family History Mother Heart problem Social History Household Members: Spouse Housing: House Do you presently have visiting nurse or other home services: No Alcohol intake: former Comment: refusing alarms Patient Tobacco Use Status: Former Tobacco user Tobacco use type: Cigarette Advance Directives Date on File: 11/29/22 service: Yes Review of Systems Const Denies chills, Denies fatigue, Denies fever(s), Denies weight gain and Denies weight loss ENT Denies dizziness Card Denies chest pain, Denies leg edema, Denies lightheadedness, Denies palpitations, Denies dyspnea on exertion, Denies orthopnea and Denies other Resp Denies cough and Denies dyspnea on exertion GI Denies hematochezia and Denies change in stool character Musc Denies abnormal gait, Denies muscle weakness, Denies numbness, Denies radiating pain into limb and Denies tingling Neuro Denies abnormal gait, Denies dizziness, Denies numbness and Denies tingling Endo Denies fatigue and Denies palpitations Physical Exam Vital Signs: Last Vital Signs Pulse 60 10/19/23 14:18 BP 122/58 L 10/19/23 14:18 BMI result Body Mass Index 27.5 Office Procedures EKG Details: EKG with atrial paced rhythm at 60/Min. [id number], Complete Assessment & Plan Assessment & Plan (1) PAF (paroxysmal atrial fibrillation): Code(s): I48.0 - Paroxysmal atrial fibrillation Category: Medical Plan: Continue amiodarone, diltiazem, metoprolol without changes. It seems he is back on Eliquis. Per echocardiogram at [facility] as inpatient-LVEF 63%. Trace AR, MR, TR. Due to concern for asymptomatic ST-T changes when he was having atrial fibrillation rapid rate post surgery, they recommended a stress test. Will arrange the same. (2) Sick sinus syndrome: Code(s): I49.5 - Sick sinus syndrome Category: Medical Plan: Status post pacemaker. Normal function on office checked today. Can be followed remotely. Orders: Orders CA lexiscan stress w idania Today I20.9 - Angina pectoris, unspecified NM cardiolite stress test Today R07.2 - Precordial pain Coding Level of Care Code Est Pt Level 4 (93665) Diagnoses PAF (paroxysmal atrial fibrillation) I48.0 Sick sinus syndrome I49.5 CPT Codes EKG - CPT: 90807-[id number], Complete ([id number])
== END 2023-10-19 14:46 | disposition home or self-care (01) ==
PROVIDERS: PCP Internal Medicine; Visit Provider Nurse Practitioner Family
DX: I48.0 Paroxysmal atrial fibrillation (principal); I49.5 Sick sinus syndrome
CPT/HCPCS: 93010; 99214

== ENCOUNTER → 2023-10-19 14:16 | Outpatient (BNVA) | payer OTHER, SELFPAY | PROVIDERS: PCP Internal Medicine; Visit Provider Nurse Practitioner Family | DX: I48.0 Paroxysmal atrial fibrillation (principal); I49.5 Sick sinus syndrome; I20.9 Angina pectoris, unspecified; R07.2 Precordial pain; Z79.01 Long term (current) use of anticoagulants | CPT/HCPCS: 93005; 99212 ==

== ENCOUNTER → 2023-11-14 11:50 | Outpatient (REF) | payer OTHER, SELFPAY ==
--- NOTE | 2023-11-14 13:34 | CA_ITS ---
Transthoracic Echocardiogram Amended Patient (Last, First, Middle): Mehran Ku, Gender: Male Date of : 1945 Age: 78 Procedure Date: 11/14/2023 Procedure Type: Transthoracic Echocardiogram Location: OP Height: 177.8 cm Weight: 79.83 kg BSA: 1.98 m2 Heart Rate: 60 bpm BP: 124 / 60 mmHg Executive Personal Assistant: SB Referring MD: Randy Melgar MD Manager Shop: Vern Calix MD Symptoms: I48.91 - Unspecified atrial fibrillation Study Quality: Adequate ECG Rhythm: Sinus Conclusions: - 1. Low normal LV ejection fraction 50-55% 2. Cardiac valvular Doppler is within normal limits with calcific aortic and mitral valve changes 3. Normal measured RV systolic pressure 4. Upper limits of normal ascending aortic size 5. No gross pericardial effusion Findings Left Ventricle Normal left ventricular cavity size. There is normal left ventricular wall thickness. The left ventricular systolic function is low normal. The visually estimated ejection fraction is between 50-55%. Diastolic function is indeterminate on the basis of available data. Right Ventricle Normal right ventricular cavity size. There is moderate to severely decreased right ventricular systolic function. Atria The left atrium is normal in size. There is lipomatous hypertrophy of the interatrial septum. There is no evidence of interatrial shunt. The right atrium was not well visualized. Aortic Valve There is mild calcification of the aortic valve. There is moderate thickening of the aortic valve. There is no aortic valve stenosis. There is no aortic valve regurgitation. Mitral Valve There is mild anterior and posterior mitral leaflet thickening. There is mild anterior and mild posterior mitral annular calcification. There is trace mitral valve regurgitation. There is no mitral valve stenosis. Pulmonic Valve The pulmonic valve was not well visualized. Tricuspid Valve Likely normal tricuspid valve structure and function. There is mild tricuspid valve regurgitation. The right ventricular systolic pressure is normal. The right ventricular systolic pressure is 24 mmHg. Normal right atrial pressure. There is no evidence of pulmonary hypertension. Great Vessels The pulmonary artery was not well visualized. There is no dilatation of the ascending aorta measuring 3.50 cm. Small plaque is seen in the sino tubular ridge. Venous The inferior vena cava is normal in size and collapses greater than 50% with inspiration. Pericardium/Pleural There is no evidence of pericardial effusion. Prior Study Comparison Changes noted compared to prior study dated: 06/19/2022. LV systolic function is at low end of normal, reduced compared to before Measurements 2D Linear Measurements IVSd: 1.11 0.6-0.9/0.6-1.0 cm LVIDd: 4.77 3.9-5.3/4.2-5.9 cm LVIDd Index: 2.41 2.4-3.2/2.2-3.1 cm/m2 LVIDs: 3.21 2.0-3.6 cm LVPWd: 1.08 0.7-1.1 cm LA Diam: 3.00 2.7-3.8/3.0-4.0 cm LAIDs Index: 1.52 1.5-2.3 cm/m2 LV Mass: 209.68 67-162/88-224 g LV Mass Index: 105.90 43-95/49-115 g/m2 LVOT Diam: 2.20 3.0+(-)1.3 cm 2D Volumes LA Vol: 16.30 2D Systolic Function EF 4C: 46.00 >55% EF 2C: 54.40 >55% EF BiP: 52.20 >55% Mitral Valve MV Pk E: 0.51 MV PK A: 0.69 MV Decel Time: 295.00 E/A: 0.70 E'Lateral: 7.72 E'Medial: 5.87 E/E' Med: 8.80 E/E' Lat: 6.70 PHT: 86.00 MVA PHT: 2.56 Decel Kemper: 1.74 Aortic Valve AoV Pk Yonis: 1.73 AoV Mn Yonis: 1.18 AoV VTI: 0.31 AoV Pk Grad: 12.00 Aov Mn Grad: 7.00 JENY Cont.VTI: 2.08 LVOT LVOT Pk Yonis: 0.89 LVOT Mn Yonis: 0.61 LVOT VTI: 0.17 LVOT Pk Grad: 3.00 LVOT Mn Grad: 2.00 LVOT Diam: 2.20 LVOT Area: 3.80 Diastolic Function MV Pk E: 0.51 MV Pk A: 0.69 E/A: 0.70 E'Medial: 5.87 E/E' Med: 8.80 E' Laterial: 7.72 E/E' Lat: 6.70 Right Ventricle TAPSE (mm): 10.20 TVS' Yonis: 9.90 Tricuspid Valve TR Pk Yonis: 2.31 TR Pk Grad: 21.00 RA Press: 3.00 RVSP: 24.00 Great Vessels Aorta Sinus of Valsalva: 3.40 2.0-3.5 cm Ao Asc: 3.50 2.1-3.4 cm Pulmonary Veins Pulm Vein S/D 2.00 Pulmonary Valve PV Pk Yonis: 0.86 Peak PV Grad: 3.00 Updated in Other Vendor System with Status of Final Vern Calix MD electronically signed on 11/14/2023 3:36:54 PM with status of Final
== END ==
LOC: HO.CARD 11:50
PROVIDERS: Visit Provider Internal Medicine
DX: I48.91 Unspecified atrial fibrillation (principal)
CPT/HCPCS: 93306

== ENCOUNTER → 2023-11-14 13:34 | Outpatient (BNV) | payer OTHER, SELFPAY | PROVIDERS: Visit Provider Internal Medicine Cardiovascular Disease | DX: I36.1 Nonrheumatic tricuspid (valve) insufficiency (principal); I48.91 Unspecified atrial fibrillation; I35.8 Other nonrheumatic aortic valve disorders; I34.81 Nonrheumatic mitral (valve) annulus calcification | CPT/HCPCS: 93306 ==

== ENCOUNTER 2023-11-24 18:26 | Inpatient (IN) | payer OTHER, SELFPAY ==
[2023-11-24] VITALS (10 sets, daily range): BP systolic 89–118; BP diastolic 22–82; PULSE 60–204; RESP 16–20; TEMP 35.3–36.7; O2SAT 75–100; BMI 24.6
--- NOTE | 2023-11-24 | ECG_ITS ---
Test Reason : TACHYCARDIC Blood Pressure : / mmHG Vent. Rate : 000 BPM Atrial Rate : 000 BPM P-R Int : 228 ms QRS Dur : 152 ms QT Int : 480 ms P-R-T Axes : 134 -51 095 degrees QTc Int : 000 ms Poor data quality AV dual-paced rhythm with prolonged AV conduction with frequent atrial-paced complexes Abnormal ECG When compared with ECG of 12-OCT-2023 16:23, AV dual-paced rhythm has replaced Electronic atrial pacemaker Vent. rate has increased BY 34 BPM Referred By: Shan Talavera Electronically Signed By:BIB ESPINOZA MD
--- NOTE | ~2023-11-24 | XR_ITS ---
EXAMINATION: XR CHEST CLINICAL INFORMATION: Possible sepsis. COMPARISON: Chest 11/24/2022 TECHNIQUE: Frontal view of the chest was obtained. FINDINGS: The lungs are slightly hyperexpanded but clear acute process. Heart size is enlarged with pulmonary vascularity is within normal limits. There are dual pacer electrodes in right atrium and right ventricle. Moderate spondylosis dorsal spine. XR/XR chest 1V IMPRESSION: Mild cardiomegaly. No acute process seen. Electronically signed by: Alfredo Ramirez MD 11/24/2023 07:48 PM EDT RP
--- NOTE | ~2023-11-24 | CT_ITS ---
EXAMINATION: CT ABDOMEN AND PELVIS WITHOUT CONTRAST CLINICAL INFORMATION: Acute renal failure in a 78-year-old male COMPARISON: October 12, 2023 TECHNIQUE: Multidetector volumetric imaging was performed from the superior aspect of the liver through the pubic symphysis. Sagittal and coronal reformatted images were obtained on the technologist's workstation. This CT examination was performed using dose optimization techniques as appropriate, variously including the following: *Automated exposure control *Adjustment of mA and/or kV according to patient size (this includes techniques or standardized protocols for targeted exams where dose is matched to indication/reason for exam; i.e. extremities or head) *Use of iterative reconstruction technique DLP: 700 cc mGy-cm FINDINGS: LUNG BASES: The visualized lung bases are unremarkable. LIVER, GALLBLADDER, AND BILIARY TREE: The liver is normal in size, shape, and attenuation. No focal hepatic lesion or biliary ductal dilatation is present. There is mild cholelithiasis without evidence of cholecystitis PANCREAS: Unremarkable. SPLEEN: Unremarkable. ADRENAL GLANDS: Unremarkable. KIDNEYS AND URETERS: There is indeterminant lesion in the cortex of left kidney, as seen in September 2023, measured 2.2 x 1.4 cm with attenuation of 34, correlate with further MRI BLADDER: Urinary bladder partially decompressed with thickened wall and 0.3 cm calculus in the lumen of the urinary bladder . GASTROINTESTINAL TRACT: Patient is status post colectomy with ileostomy on the right and there is unclear origin collection in the mesentery, measured 13.5 x 8.4 x 7.4 cm growing since previous study and most likely unresolved hematoma/seroma the collection revealed attenuation of 10 HU. ABDOMINAL WALL: There is ileostomy in the right LYMPH NODES: Normal. VASCULAR: Unremarkable. PELVIC VISCERA: Unremarkable. OSSEOUS STRUCTURES: There are multilevel degenerative changes in lumbar spine CT/CT abdomen pelvis wo IV con IMPRESSION: 1. Status post colectomy with ileostomy on the right and growing collection in the mesentery most likely unresolved hematoma/seroma. 2. Cholelithiasis without cholecystitis. 3. Indeterminate lesion in the left kidney, correlate with further MRI. 4. 0.3 cm stone in the urinary bladder with wall thickening or bladder Fleischner guidelines were followed. Electronically signed by: Gabriela Nava MD 11/24/2023 09:56 PM EDT
[2023-11-24 18:57] LABS: MANUAL DIFF FLAG NO
[2023-11-24 18:59] LABS: Basophils Percent Auto 0.3 % (0-2); Eosinophils Percent Auto 0.2 % (0-4); Hematocrit 27.7 % (42.0-52.0); Hemoglobin 9.1 g/dl (14.0-18.0); Imm Gran Abs Auto 0.48 X10*3/uL (0.00-0.03); Imm Gran Pct Auto 3.6 % (0.0-0.4); Lymphocytes Absolute Auto 1.4 X10*3/uL (1.2-4.9); Lymphocytes Percent Auto 10.8 % (20-40); Mean Corpuscular HGB Conc 32.9 g/dl (31.0-36.0); Mean Corpuscular Hemoglobin 30.4 pg (27.0-33.0); Mean Corpuscular Volume 92.6 fL (80.0-98.0); Mean Platelet Volume 10.4 fL (9.4-12.4); Monocytes Percent Auto 7.8 % (2-11); NRBC Pct Auto 0.2 /100WBC (0.0-0.2); Neutrophils Absolute Auto 10.2 x10*3/uL (2.0-8.3); Neutrophils Percent Auto 77.3 % (45-73); Platelet Count 273 X10*3/uL (160-400); Red Blood Count 2.99 X10*6/uL (4.60-5.80); Red Cell Distribution Width 17.3 % (11.0-16.0); White Blood Count 13.2 X10*3/uL (4.8-10.8)
[2023-11-24 19:04] LABS: VBG HCO3 5 mmol/L (22-26); VBG pCO2 18 mmHg; VBG pO2 89 mmHg
[2023-11-24 19:08] LABS: VBG pH 7.05 (7.32-7.43)
[2023-11-24 19:09] LABS: INTERNATIONAL NORM RATIO 1.5 (0.9-1.1)
[2023-11-24 19:09] LABS: Venous Blood Gas Refer to POC result
[2023-11-24 19:14] LABS: Lactic Acid 1.2 mmol/L (0.5-2.0)
--- NOTE | 2023-11-24 19:16 | ED_ITS ---
[facility] - General Adult General Chief complaint: General Medical Stated complaint: low o2 in 70's ra per ems, HR 200 Time Seen by Provider: 11/24/23 19:16 History of Present Illness ED Provider: Ilan HERNANDEZ narrative: The patient is a 78-year-old male with a history to carcinoma. He initially underwent neoadjuvant treatment and eventually had low anterior resection and diverting loop ileostomy at [facility] on 09/24/2023. The patient says that 5 days ago on November 19 he was seen at [facility] as an outpatient for an examination under anesthesia with flexible sigmoidoscopy. The procedure was done under MAC anesthesia. A flexible sigmoidoscopy was performed. No significant findings seemed to have been made according to documents obtained from [facility]. The patient says that since that procedure he has felt unwell for several days. He feels generally weak and has had chills. He has not really had more specific symptoms such as chest pain or cough or sputum production. No definite nausea or vomiting or significant abdominal pain. Tonight he felt sufficiently unwell that his family called 911 and he was brought to the hospital by ambulance. The patient has a history of atrial fibrillation and is on anticoagulation. Related Data Home Medications ?Medication ?Instructions ?Recorded ?Confirmed clindamycin phosphate 1 % lotion 1 appl topical BID PRN Acne 10/12/23 10/19/23 clobetasol 0.05 % topical cream 1 appl topical BID PRN 10/12/23 10/19/23 Itching/Burning lisinopril 5 mg tablet 5 mg PO DAILY 10/12/23 10/19/23 pramoxine 1 % lotion 1 appl topical BID PRN Itchy Skin 10/12/23 10/19/23 Previous Rx's ?Medication ?Instructions ?Recorded metoprolol tartrate 100 mg tablet 100 mg PO BID 90 days #180 tabs 06/08/22 omeprazole 20 mg capsule,delayed 20 mg PO BID@0630,1630 #60 caps 01/01/23 release diltiazem HCl 240 mg 240 mg PO DAILY #90 caps 01/16/23 capsule,extended release 24 hr ascorbic acid (vitamin C) 500 mg 250 mg (1/2 x 500 mg) PO BID #60 04/23/23 tablet (Vitamin C) tabs ferrous sulfate 325 mg (65 mg 325 mg PO BID #60 tabs 04/23/23 iron) tablet amiodarone 200 mg tablet 200 mg PO DAILY #90 tabs 08/13/23 apixaban 5 mg tablet (Eliquis) 5 mg PO BID #60 tabs 08/24/23 cefuroxime axetil 500 mg tablet 500 mg PO BID #6 tabs 10/14/23 Allergies Allergy/AdvReac Type Severity Reaction Status Date / Time No Known Allergies [NKA] Allergy Mild NOT Verified 11/24/23 18:31 APPLICABLE Review of Systems 2 Review of Systems: Yes all other systems are reviewed and are negative [facility] Past Medical History Medical History (Updated 11/25/23 @ 03:02 by Shan Talavera MD) Postoperative hematoma involving digestive system following digestive system procedure Aftercare following left shoulder joint replacement surgery Pacemaker OA (osteoarthritis) Borderline hyperlipidemia Obesity HTN (hypertension) EtOH dependence Mild cognitive impairment Inhibited sex excitement Atrial fibrillation Cancer of kidney High cholesterol Hypertension Family History Family History Mother Heart problem Social History Social History Household Members: Spouse Housing: House Do you presently have visiting nurse or other home services: No Alcohol intake: former Comment: refusing alarms Patient Tobacco Use Status: Former Tobacco user Tobacco use type: Cigarette Smoked in Last 30 Days: No Use of substances other than those prescribed or required for medical reasons: No Have you been hit, kicked, punched, or otherwise hurt by someone within the past year? If so, by whom?: No Do you feel safe in your current relationship?: Yes Is there a partner from a previous relationship who is making you feel unsafe now?: No Are you made to feel afraid or neglected: No Advance Directives: Yes Advance Directives on File: Yes Advance Directives Date on File: 11/29/22 Do you have a plan to hurt others: No Plan Recently lost weight without trying: No Eating poorly because of decreased appetite: No Nutrition Risks: No Nutritional Risk Poor oral hygiene: No service: Yes Physical Exam ED Vital Signs: Vital Signs - 24 hr 11/24/23 18:34 11/24/23 18:34 11/24/23 18:48 Temperature 96.8 F Pulse Rate 154 H 60 Respiratory Rate 18 16 Blood Pressure 89/40 L 93/45 L Pulse Oximetry 100 95 97 Oxygen Delivery Method Nasal Cannula Room Air Room Air Oxygen Flow Rate 6 11/24/23 19:25 11/24/23 20:00 11/24/23 21:47 Temperature 95.5 F L Pulse Rate 60 64 60 Respiratory Rate 16 19 20 Blood Pressure 90/46 L 93/44 L 118/25 L Pulse Oximetry 99 100 100 Oxygen Delivery Method Room Air Nasal Cannula Room Air Oxygen Flow Rate 6 11/24/23 21:49 11/24/23 21:53 11/24/23 22:51 Temperature 95.9 F L 97.3 F Pulse Rate 60 60 60 Respiratory Rate 16 16 18 Blood Pressure 97/22 L 91/28 L 109/47 L Pulse Oximetry 100 100 100 Oxygen Delivery Method Room Air Room Air Room Air Oxygen Flow Rate 11/24/23 23:00 Temperature 98.1 F Pulse Rate 60 Respiratory Rate 18 Blood Pressure 100/82 Pulse Oximetry 100 Oxygen Delivery Method Room Air Oxygen Flow Rate BMI result Body Mass Index 24.6 Const Other: The patient is awake and alert. He looks somewhat ill. He did not seem in acute pain or respiratory distress however. HENMT Other: Face is symmetrical. Mucous membranes somewhat dry. Eyes General: appearance normal, both eyes and all related structures Neck Other: No JVD. No adenopathy. Resp Effort & Inspection: normal respiratory effort Auscultation: clear to auscultation bilaterally Cardio Rate: regular rate Rhythm: regular rhythm Heart sounds: S1 normal heart sound present and S2 normal heart sound present GI Other: The abdomen was soft and did not seem significantly tender. Skin Other: Skin was dry Neuro Other: The patient was awake and alert. At 1st he seemed oriented and appropriate. Later he seemed somewhat disoriented and confused. No obvious facial asymmetry. Speech seemed intact. He moves his extremities weakly but symmetrically. No obvious focal finding Extrem Other: No calf swelling or tenderness. Feet seem reasonably well-perfused. Medications Administered Generic Name Dose Route Start Last Admin Trade Name Freq PRN Reason Stop Dose Admin Sodium Bicarbonate 150 meq/ 1,000 mls @ 100 mls/hr 11/24/23 20:00 11/24/23 21:05 Dextrose IV 100 mls/hr .Q10H NILE Administration Dextrose 250 mls @ 750 mls/hr 11/24/23 21:00 11/24/23 21:21 D10 IV Infused ONCE NILE Infusion Discontinued Medications Generic Name Dose Route Start Last Admin Trade Name Freq PRN Reason Stop Dose Admin Albuterol Sulfate 7.5 mg/ 10 mg 11/24/23 19:50 11/24/23 20:03 Albuterol Sulfate 2.5 mg INHALE 11/24/23 19:51 10 mg ONCE ONE Administration Lactated Ringer's 2,202 mls @ 2,202 mls/hr 11/24/23 19:22 11/24/23 21:45 Lr 30 ml/kg infuse over 1 hr (2202 ml) 11/24/23 20:21 Infused IV Infusion .Q1H ONE Piperacillin Sod/Tazobactam 100 mls @ 200 mls/hr 11/24/23 19:23 11/24/23 20:06 Sod 4.5 gm/ Sodium Chloride IV 11/24/23 19:52 Infused ONCE ONE Infusion Vancomycin HCl 1,000 mg/ 535 mls @ 267.5 mls/hr 11/24/23 19:23 11/24/23 23:23 Vancomycin HCl 750 mg/ Sodium IV 11/24/23 21:22 Infused Chloride ONCE ONE Infusion Calcium Gluconate 2 gm in 100 mls @ 50 mls/hr 11/24/23 19:48 11/24/23 22:30 Calcium Gluconate IV 11/24/23 21:47 Infused ONCE ONE Infusion Dextrose 1,000 mls @ 750 mls/hr 11/24/23 20:43 11/24/23 21:23 D10 IVCONT 11/24/23 22:02 Not Given .Q1H20M STA Lactated Ringer's 1,000 mls @ 999 mls/hr 11/24/23 22:00 11/24/23 22:50 Lr IV 11/24/23 23:00 Infused .Q1H1M NILE Infusion Albumin Human 100 mls @ 133.333 mls/hr 11/24/23 23:30 11/25/23 02:21 Kedbumin 25 % IV 11/25/23 01:14 Infused Q1H NILE Infusion Insulin Human Regular 5 unit 11/24/23 19:53 11/24/23 20:59 Insulin Regular, Human 100 Unit/Ml 10 Ml Vial IVPUSH 11/24/23 19:54 5 unit ONCE ONE Administration Medical Decision Making Medical Decision Making MDM Narrative: The patient is a 78-year-old male who has been receiving treatment for rectal cancer. Earlier this year he received chemotherapy. This summer he had surgery which left him with an ileostomy. One week ago he had a sigmoidoscopy. The patient presents with several days of feeling weak and chilled but without more specific symptoms. Clinically the patient seemed mildly hypotensive and his temperature was 96.8 degrees. Initially it seems as though the patient might have some kind of septic process although there was no clear source on his exam. I therefore ordered IV fluids and empiric antibiotics. Once labs came back however it was apparent that he was in acute renal failure with severe metabolic acidosis (likely uremic acidosis) with associated hyperkalemia. He had QRS widening on his EKG. The patient was given high-dose albuterol, calcium gluconate, insulin and dextrose, and a bicarbonate drip to address his hyperkalemia. IV fluids. Labs were significant for a pH of 7.05, a creatinine of 11, a BUN of 120, a serum CO2 of less than 7, and a potassium of 7.0. The patient is EKGs seemed to improve with narrowing of his QRS complex. Repeat labs showed a potassium of 5.7. A CT scan of the abdomen and pelvis was done to look for any obstructive process and also to look for a possible source of infection. CT scan does not show any sign of urinary obstruction. There collection in the mesentery which is thought to be an unresolved hematoma or seroma. The patient did not seem to have a lot of abdominal tenderness. I therefore think this is probably not a source of sepsis. No other obviously inflammatory process was apparent. Chest x-ray showed no sign of infection. The patient not have any significant urine which could be sent for testing. The the patient was admitted to the intensive care unit. Lab Data 11/25/23 00:51 11/24/23 22:30 Labs: Lab Results 11/24/23 11/24/23 11/24/23 Range/Units 18:49 18:50 18:58 WBC 13.2 H (4.8-10.8) X10*3/uL RBC 2.99 L (4.60-5.80) X10*6/uL Hgb 9.1 L (14.0-18.0) g/dl Hct 27.7 L (42.0-52.0) % MCV 92.6 (80.0-98.0) fL MCH 30.4 (27.0-33.0) pg MCHC 32.9 (31.0-36.0) g/dl RDW 17.3 H (11.0-16.0) % Plt Count 273 D (160-400) X10*3/uL MPV 10.4 (9.4-12.4) fL Immature Gran % (Auto) 3.6 H (0.0-0.4) % Neut % (Auto) 77.3 H (45-73) % Lymph % (Auto) 10.8 L (20-40) % [place] % (Auto) 7.8 (2-11) % Eos % (Auto) 0.2 (0-4) % Baso % (Auto) 0.3 (0-2) % Lymph # (Auto) 1.4 (1.2-4.9) X10*3/uL [place] # (Auto) 1.0 (0.1-1.2) X10*3/uL Eos # (Auto) 0.0 (0.0-0.4) X10*3/uL Baso # (Auto) 0.0 (0.0-0.2) X10*3/uL Abs Immat Gran (auto) 0.48 H (0.00-0.03) X10*3/uL Absolute Neuts (auto) 10.2 H (2.0-8.3) x10*3/uL Absolute Nucleated RBC 0.020 H (0.0-0.012) X10*3/uL Nucleated RBC % (auto) 0.2 (0.0-0.2) /100WBC PT 17.0 H (10.9-12.4) SEC INR 1.5 H (0.9-1.1) APTT 31.0 (26.0-36.8) SEC VBG pH 7.05 L* (7.32-7.43) VBG pCO2 18 mmHg VBG pO2 89 mmHg VBG HCO3 5 L (22-26) mmol/L VBG O2 Saturation 95.0 % VBG Base Excess -23.0 mmol/L Sodium 130 L (135-145) mmol/L Potassium 7.0 H* D (3.3-5.1) mmol/L Chloride 112 H (96-108) mmol/L Carbon Dioxide < 5 L* D (22-29) mmol/L Anion Gap TNP BUN 120 H (9-16) mg/dL Creatinine 11.73 H* (0.5-1.4) mg/dL Estim Creat Clear Calc 5.1 Estimated GFR 4 Random Glucose 99 (60-115) mg/dL Lactic Acid 1.2 (0.5-2.0) mmol/L Calcium 8.6 (8.4-10.2) mg/dL Phosphorus 8.8 H (2.7-4.5) mg/dL Magnesium 2.5 (1.6-2.6) mg/dL Total Bilirubin 0.4 (0.0-1.0) mg/dL AST 10 (5-37) U/L ALT 8 (0-40) U/L Alkaline Phosphatase 118 H (39-117) U/L Troponin I High Sens 8.6 (<3.5-35.0) ng/L C-Reactive Protein 5.79 H (< or = 0.50) mg/dL B-Natriuretic Peptide 37 (<100) pg/mL Total Protein 7.2 (6.5-8.0) g/dL Albumin 3.5 (3.5-5.0) g/dL 11/24/23 11/24/23 Range/Units 22:30 22:36 WBC (4.8-10.8) X10*3/uL RBC (4.60-5.80) X10*6/uL Hgb (14.0-18.0) g/dl Hct (42.0-52.0) % MCV (80.0-98.0) fL MCH (27.0-33.0) pg MCHC (31.0-36.0) g/dl RDW (11.0-16.0) % Plt Count (160-400) X10*3/uL MPV (9.4-12.4) fL Immature Gran % (Auto) (0.0-0.4) % Neut % (Auto) (45-73) % Lymph % (Auto) (20-40) % [place] % (Auto) (2-11) % Eos % (Auto) (0-4) % Baso % (Auto) (0-2) % Lymph # (Auto) (1.2-4.9) X10*3/uL [place] # (Auto) (0.1-1.2) X10*3/uL Eos # (Auto) (0.0-0.4) X10*3/uL Baso # (Auto) (0.0-0.2) X10*3/uL Abs Immat Gran (auto) (0.00-0.03) X10*3/uL Absolute Neuts (auto) (2.0-8.3) x10*3/uL Absolute Nucleated RBC (0.0-0.012) X10*3/uL Nucleated RBC % (auto) (0.0-0.2) /100WBC PT (10.9-12.4) SEC INR (0.9-1.1) APTT (26.0-36.8) SEC VBG pH 7.15 L* (7.32-7.43) VBG pCO2 18 mmHg VBG pO2 66 mmHg VBG HCO3 6 L (22-26) mmol/L VBG O2 Saturation 89.0 % VBG Base Excess -20.1 mmol/L Sodium 132 L (135-145) mmol/L Potassium 5.1 D (3.3-5.1) mmol/L Chloride 114 H (96-108) mmol/L Carbon Dioxide 7 L* D (22-29) mmol/L Anion Gap 16 BUN 118 H (9-16) mg/dL Creatinine 10.41 H* (0.5-1.4) mg/dL Estim Creat Clear Calc 5.7 Estimated GFR 5 Random Glucose 90 (60-115) mg/dL Lactic Acid 1.7 (0.5-2.0) mmol/L Calcium 8.2 L (8.4-10.2) mg/dL Phosphorus (2.7-4.5) mg/dL Magnesium (1.6-2.6) mg/dL Total Bilirubin (0.0-1.0) mg/dL AST (5-37) U/L ALT (0-40) U/L Alkaline Phosphatase (39-117) U/L Troponin I High Sens (<3.5-35.0) ng/L C-Reactive Protein (< or = 0.50) mg/dL B-Natriuretic Peptide (<100) pg/mL Total Protein (6.5-8.0) g/dL Albumin (3.5-5.0) g/dL Critical Care Time Critical Care Time Critical Care Time: Yes Total Critical Care Time: 65 Attestation: The patient was critically ill with a high probability of imminent or life- threatening deterioration. ?I spent greater than 30 minutes of discontinuous time evaluating the patient, delivering critical care at the bedside, discussing evaluating data with consultants. ?Critical care time does not include time spent performing separately billable procedures or teaching. ?Time spent performing critical care with 65 minutes. Discharge Plan Discharge Clinical Impression: Acute renal failure, Acute hyperkalemia, Metabolic acidosis, Uremia Patient Disposition: Admitted As Inpatient Discharge Date/Time: 11/25/23 00:44
--- NOTE | 2023-11-24 19:21 | PC.NURSE ---
assumed care of pt at this time. MD Talavera made aware of labs, vitals and sx. at bedside now.
[2023-11-24 19:23] LABS: B Type Natriuretic Peptide 37 pg/mL (<100)
[2023-11-24 19:25] LABS: Troponin-I High Sensitivity 8.6 ng/L (<3.5-35.0)
[2023-11-24] MEDS: LACTATED RINGERS 2202 ML IV (19:25)
--- NOTE | 2023-11-24 19:34 | MHC.EDTECH ---
difficult venipuncture, this tech counted 30 drops in each culture bottle.
[2023-11-24] MEDS: Piperacillin Sodium/Tazobactam 4.5 GM in 0.9 % Sodium Chloride 100 ML IV (19:36)
[2023-11-24 19:49] LABS: Alanine Aminotransferase 8 U/L (0-40); Albumin Level 3.5 g/dL (3.5-5.0); Alkaline Phosphatase 118 U/L (39-117); Aspartate Amino Transferase 10 U/L (5-37); Bilirubin Total 0.4 mg/dL (0.0-1.0); Blood Urea Nitrogen 120 mg/dL (9-16); Calcium 8.6 mg/dL (8.4-10.2); Carbon Dioxide < 5 mmol/L (22-29); Chloride 112 mmol/L (96-108); Creatinine Clr Calc Pharmacy 5.1; Estimated Glomerular Filt Rate 4; Glucose Random 99 mg/dL (60-115); Sodium 130 mmol/L (135-145); Total Protein 7.2 g/dL (6.5-8.0)
[2023-11-24] MEDS: Albuterol Sulfate 7.5 MG, Albuterol Sulfate (0.083%) 2.5 MG 10 MG INHALE (20:03)
[2023-11-24 20:13] LABS: C Reactive Protein 5.79 mg/dL (< or = 0.50)
[2023-11-24] MEDS: Calcium Gluconate/NaCl,Iso-Osm 2 GM/100 ML PLAST..BAG IV (20:17)
[2023-11-24] MEDS: Insulin Regular, Human 100 UNIT/ML 10 ML VIAL IVPUSH (20:59)
[2023-11-24] MEDS: Dextrose 10 % 250 ML 750 ML IV (21:01)
[2023-11-24] MEDS: Sodium Bicarbonate 8.4% 150 MEQ in Dextrose 5 % 850 ML 100 MEQ IV (21:05)
[2023-11-24] MEDS: vancomycin HCL 1,000 MG, vancomycin HCL 750 MG in 0.9 % Sodium Chloride 500 ML 267.5 MG IV (21:23)
--- NOTE | 2023-11-24 21:46 | ECG_ITS ---
Test Reason : hyperkalemia Blood Pressure : / mmHG Vent. Rate : 091 BPM Atrial Rate : 098 BPM P-R Int : 118 ms QRS Dur : 090 ms QT Int : 458 ms P-R-T Axes : 062 028 033 degrees QTc Int : 563 ms Poor data quality Undetermined rhythm Low voltage QRS Nonspecific T wave abnormality Prolonged QT Abnormal ECG When compared with ECG of 24-NOV-2023 18:28, Poor data quality in current ECG precludes serial comparison ventricular-paced complexes is no longer Present Referred By: Shan Talavera Electronically Signed By:BIB ESPINOZA MD
[2023-11-24] MEDS: Lactated Ringers 1,000 ML 999 ML IV (21:55)
[2023-11-24 22:20] LABS: Magnesium 2.5 mg/dL (1.6-2.6)
--- NOTE | 2023-11-24 22:36 | PC.NURSE ---
assumed care of pt at 1915. at that time received critical pH lab results. MD goldstein made aware. bp as documented and ivf ordered per sepsis protocol by and hung per apr. pt had 22g IV to L. hand which seemed to have infiltrated. iv removed. 3x attempt to establish 2nd iv as multiple infusions ordered incompatible to infuse together. made aware. u/s iv established to L. upper arm by PA. infusions started per apr. upon completion of fluids bp as documented and made aware. another 1L LR hung per order. bp improving. pt in agreement for monroe cathether. temp sensing monroe inserted and pt tolerated well. previously bladder scanned pt d/t no UO and showed only 13mL, upon inserting monroe approx 10mL output unable to obtain sample to send to lab. temp 95.9F with monroe made aware and bear hugger placed on pt. pt is tremulous states has been this way since last admission to hospital, difficult to obtain ekg second ekg obtained and signed off by . pt denies cp/sob/general discomfort. pt has a colostomy to R. abdomen, stoma beefy red, stool contents present in bag. pt denies abd pain at this time. axox4. speaking full clear sentences. able to tolerate ct scan without issues. at this time awaiting transfer to icu.
[2023-11-24 22:42] LABS: VBG Base Excess -20.1 mmol/L; VBG HCO3 6 mmol/L (22-26); VBG pCO2 18 mmHg; VBG pH 7.15 (7.32-7.43); VBG pO2 66 mmHg
[2023-11-24 22:42] LABS: Venous Blood Gas Refer to POC result
[2023-11-24 22:46] LABS: Lactic Acid 1.7 mmol/L (0.5-2.0)
[2023-11-24 22:52] LABS: Anion Gap 16 (12-20); Blood Urea Nitrogen 118 mg/dL (9-16); Calcium 8.2 mg/dL (8.4-10.2); Carbon Dioxide 7 mmol/L (22-29); Chloride 114 mmol/L (96-108); Creatinine Clr Calc Pharmacy 5.7; Estimated Glomerular Filt Rate 5; Glucose Random 90 mg/dL (60-115); Potassium 5.1 mmol/L (3.3-5.1); Sodium 132 mmol/L (135-145)
--- NOTE | 2023-11-24 23:38 | P.HPCC_ITS ---
History of Present Illness Date of Service: 11/24/23 <SEBASTIAN Da Silva - Last Filed: 11/25/23 03:50> Attending physician on admission: Bryson Campo <SEBASTIAN Da Silva - Last Filed: 11/25/23 03:50> Chief Complaint: ANIL, Severe Met Acidosis, Hyperkalemia <SEBASTIAN Da Silva - Last Filed: 11/25/23 03:50> HPI: ?78-year-old patient with underlying history of rectal carcinoma, whose history is being obtained from patient's records as the patient is confused is not able to provide 1 at this point.? Reportedly the patient had neoadjuvant treatment and low anterior resection with diverting loop ileostomy on 09/24/2023 at [facility]. ?This past November 19 he had a outpatient flexible sigmoidoscopy under MAC anesthesia at [facility] which was reported to be without significant findings.? It is reported the patient has had weakness and chills but no other specific discomfort, family members felt that the patient was not doing well and they called 911. ?Additionally the patient history includes atrial fibrillation post AV pacer, left shoulder replacement, osteoarthritis, hyperlipidemia, obesity, hypertension, ETOH dependence, hypertension, renal carcinoma , UTI. Workup in the emergency room reveals a hypotensive, tachycardic patient with white count of 13.2, H and H of 9.1 and 27.7, platelets 273.? Sodium 130, potassium 7.0 which after treatment came down to 5.1, chloride 112, BUN 120, creatinine 11.73, repeat creatinine of 10.41 after IV fluids.? LFTs within normal limits, troponin 8.6.? CRP 5.79.? Albumin 3.5. ?Venous blood gas currently reveals pH of 7.15, pCO2 18, PO2 66, HC03 6.? Base excess -20. ? Chest x-ray showed mild cardiomegaly without any acute process. ?CT abdomen and pelvis is reported as status post colectomy with ileostomy on the right and groan collection in the mesentery most likely unresolved hematoma versus seroma.? Cholelithiasis without cholecystitis.? Indeterminate lesion in the left kidney.? Correlation with the MRI requested.? 0.3 cm stone in the urinary bladder with wall thickening or bladder. Patient was treated with IV fluids, vancomycin and Zosyn, calcium, high dose albuterol, insulin, D50 with good improvement of his hyperkalemia and minimal improvement on his renal function.? Pt will be admitted to the ICU for further care. <SEBASTIAN Da Silva - Last Filed: 11/25/23 03:50> Review of Systems 2 Review of Systems: Yes Unobtainable due to mental status <SEBASTIAN Da Silva - Last Filed: 11/25/23 03:50> [facility] Past Medical History Medical History: Medical History (Updated 11/25/23 @ 03:02 by Shan Talavera MD) Postoperative hematoma involving digestive system following digestive system procedure Aftercare following left shoulder joint replacement surgery Pacemaker OA (osteoarthritis) Borderline hyperlipidemia Obesity HTN (hypertension) EtOH dependence Mild cognitive impairment Inhibited sex excitement Atrial fibrillation Cancer of kidney High cholesterol Hypertension <SEBASTIAN Da Silva - Last Filed: 11/25/23 03:50> Family History Family History: Family History Mother Heart problem <SEBASTIAN Da Silva - Last Filed: 11/25/23 03:50> Social History Social History: Social History Household Members: Spouse Housing: House Do you presently have visiting nurse or other home services: No Alcohol intake: former Comment: refusing alarms Patient Tobacco Use Status: Former Tobacco user Tobacco use type: Cigarette Smoked in Last 30 Days: No Use of substances other than those prescribed or required for medical reasons: No Currently Displaying Signs/Symptoms of Drug Intoxication Withdrawal: No Have you been hit, kicked, punched, or otherwise hurt by someone within the past year? If so, by whom?: No Do you feel safe in your current relationship?: Yes Is there a partner from a previous relationship who is making you feel unsafe now?: No Are you made to feel afraid or neglected: No Advance Directives: Yes Advance Directives on File: Yes Advance Directives Date on File: 11/29/22 Do you have a plan to hurt others: No Plan Recently lost weight without trying: No Eating poorly because of decreased appetite: No Nutrition Risks: No Nutritional Risk Poor oral hygiene: No service: Yes <SEBASTIAN Da Silva - Last Filed: 11/25/23 03:50> Meds Allergies/Adverse reactions: Allergies Allergy/AdvReac Type Severity Reaction Status Date / Time No Known Allergies [NKA] Allergy Mild NOT Verified 11/24/23 18:31 APPLICABLE <SEBASTIAN Da Silva - Last Filed: 11/25/23 03:50> Active Medications: Current Medications Sodium Bicarbonate 150 meq/ (Dextrose) 1,000 mls @ 100 mls/hr IV .Q10H NILE Last Admin: 11/24/23 21:05 Dose: 100 mls/hr Dextrose (D10) 250 mls @ 750 mls/hr IV ONCE NILE Last Infusion: 11/24/23 21:21 Dose: Infused Sodium Bicarbonate 150 meq/ (Dextrose) 1,000 mls @ 100 mls/hr IV .Q10H NILE Albumin Human (Kedbumin 25 %) 100 mls @ 133.333 mls/hr IV Q1H NILE Stop: 11/25/23 01:14 <SEBASTIAN Da Silva - Last Filed: 11/25/23 03:50> Home medications: Home Medications ?Medication ?Instructions ?Recorded ?Confirmed ?Last Taken ?Type lisinopril 5 mg tablet 5 mg PO DAILY 10/12/23 11/25/23 11/24/23 History acetaminophen 325 mg tablet 325 mg PO QID PRN Pain 11/25/23 11/25/23 Unknown History <SEBASTIAN Da Silva - Last Filed: 11/25/23 03:50> Physical Exam 2 Vital Signs: Vital Signs: Last Vital Signs Temp 98.1 F 11/24/23 23:00 Pulse 60 11/24/23 23:00 Resp 18 11/24/23 23:00 BP 100/82 11/24/23 23:00 Pulse Ox 100 11/24/23 23:00 O2 Del Method Room Air 11/24/23 23:00 O2 Flow Rate 6 11/24/23 20:00 BMI result Body Mass Index 24.6 <SEBASTIAN Da Silva Last Filed: 11/25/23 03:50> Sepsis exam done at 1155 p.m. VS: ?100/82, 60, 18, 100% on room air, 98.1 F. General:? Alert, follows commands, complaining of being cold. Skin:? Intact, no lesions, edema, erythema, clubbing or cyanosis.? No ulcers. HEENT:? Head is normocephalic, atraumatic, pupils equal, round.? Extraocular movements intact.? Buccal mucosa dry.? Neck is supple. Cardiac:? Clear S1-S2, no murmurs rubs or gallops. Pulmonary:? Clear to auscultation, no wheezes, rales or rhonchi. Abdomen:? Protuberant, positive bowel sounds in all 4 quadrants.? Soft, nontender, no rebound or guarding. ?Right-sided ostomy with plenty of stool.? Mckeon catheter in place with perhaps 10 cc of urine.? Musculoskeletal:? Moving all 4 extremities upon request a major joints, there is no crepitus or tenderness.? The strength is 5/5 bilaterally and throughout all 4 extremities.? There is no leg edema , no calf tenderness , no leg asymmetry.? Gait not assessed at this point. Neurologic:? As above, cranial nerves 2-12 are grossly intact.? No focal deficits noted. Vascular:? 2+ pulses upper and lower extremities distally. Less than 2nd capillary refill of the finger and toes bilaterally upper and lower extremities. <SEBASTIAN Da Silva - Last Filed: 11/25/23 03:50> Results Labs CBC and Chem 7: 11/25/23 11:20 11/25/23 04:42 <SEBASTIAN Da Silva - Last Filed: 11/25/23 03:50> Labs: Laboratory Results - last 24 hr 11/24/23 11/24/23 11/24/23 18:49 18:50 18:58 MCV 92.6 MCH 30.4 MCHC 32.9 RDW 17.3 H Plt Count 273 D MPV 10.4 Immature Gran % (Auto) 3.6 H Neut % (Auto) 77.3 H Lymph % (Auto) 10.8 L Ritchie % (Auto) 7.8 Eos % (Auto) 0.2 Baso % (Auto) 0.3 Lymph # (Auto) 1.4 Ritchie # (Auto) 1.0 Eos # (Auto) 0.0 Baso # (Auto) 0.0 Abs Immat Gran (auto) 0.48 H Absolute Neuts (auto) 10.2 H Absolute Nucleated RBC 0.020 H Nucleated RBC % (auto) 0.2 PT 17.0 H INR 1.5 H APTT 31.0 VBG pH 7.05 L* VBG pCO2 18 VBG pO2 89 VBG HCO3 5 L VBG O2 Saturation 95.0 VBG Base Excess -23.0 Anion Gap TNP Estim Creat Clear Calc 5.1 Estimated GFR 4 Random Glucose 99 Lactic Acid 1.2 Calcium 8.6 Magnesium 2.5 Total Bilirubin 0.4 AST 10 ALT 8 Alkaline Phosphatase 118 H Troponin I High Sens 8.6 C-Reactive Protein 5.79 H B-Natriuretic Peptide 37 Total Protein 7.2 Albumin 3.5 11/24/23 11/24/23 22:30 22:36 MCV MCH MCHC RDW Plt Count MPV Immature Gran % (Auto) Neut % (Auto) Lymph % (Auto) Ritchie % (Auto) Eos % (Auto) Baso % (Auto) Lymph # (Auto) Ritchie # (Auto) Eos # (Auto) Baso # (Auto) Abs Immat Gran (auto) Absolute Neuts (auto) Absolute Nucleated RBC Nucleated RBC % (auto) PT INR APTT VBG pH 7.15 L* VBG pCO2 18 VBG pO2 66 VBG HCO3 6 L VBG O2 Saturation 89.0 VBG Base Excess -20.1 Anion Gap 16 Estim Creat Clear Calc 5.7 Estimated GFR 5 Random Glucose 90 Lactic Acid 1.7 Calcium 8.2 L Magnesium Total Bilirubin AST ALT Alkaline Phosphatase Troponin I High Sens C-Reactive Protein B-Natriuretic Peptide Total Protein Albumin <SEBASTIAN Da Silva - Last Filed: 11/25/23 03:50> Imaging Radiologist's Impressions: Impressions Chest X-Ray 11/24/23 19:26 IMPRESSION: Mild cardiomegaly. No acute process seen. Electronically signed by: Alfredo Ramirez MD 11/24/2023 07:48 PM EDT RP Abdomen/Pelvis CT 11/24/23 19:55 IMPRESSION: 1. Status post colectomy with ileostomy on the right and growing collection in the mesentery most likely unresolved hematoma/seroma. 2. Cholelithiasis without cholecystitis. 3. Indeterminate lesion in the left kidney, correlate with further MRI. 4. 0.3 cm stone in the urinary bladder with wall thickening or bladder Fleischner guidelines were followed. Electronically signed by: Gabriela Nava MD 11/24/2023 09:56 PM EDT RP <SEBASTIAN Da Silva - Last Filed: 11/25/23 03:50> Assessment and Plan (1) Acute renal failure: Status: Acute <SEBASTIAN Da Silva - Last Filed: 11/25/23 03:50> (2) Acute hyperkalemia: Status: Acute <SEBASTIAN Da Silva - Last Filed: 11/25/23 03:50> ASSESSMENT : 1. Severe acute kidney injury likely multifactorial including hypovolemia, volume losses, nephrotoxins (MISSAEL inhibitor) can not rule out the possibility of hyperpotassemia post bowel prep for sigmoidoscopy 2. Acute hyperkalemia 3. Severe metabolic acidosis due to the above 4. Anemia NOS rule out iron deficiency, micro bleeding, chronic disease 5. History of atrial fibrillation previously on Eliquis 6. History rectal cell carcinoma 7. Incidental finding of indeterminate lesion in the left kidney in need of follow-up with MRI. 8. Anuria 9. Suspected sepsis and septic shock 10. Metabolic Encephalophaty PLAN OF CARE: Admit to ICU, monitor vital signs, I's and O's, Mckeon catheter placement and continuous drip of sodium bicarb in D5, recheck laboratories monitor for recurrent hyperkalemia, we will also recheck his CBC now for his quite anemic and he is on anticoagulation therapy, to ensure the there is no evidence of bleed or need for transfusion. ?Add phosphorus levels, check stool occult blood and iron panel.? Patient will need outpatient follow-up MRI for further definition of the lesion in his left kidney.? Albumin infusion. ?There is significant foul smelly stool, will order stool PCR studies including C diff . Blood cultures are pending, patient did receive vancomycin and Zosyn. ?We will start him on Rocephin tomorrow morning as this does not need renal adjustment and the patient has had E coli organisms in his urine before, which could be the source of infection given that there is some wall thickening of the bladder noted on CT. ?Nephrology consult in morning. GI PROPHYLAXIS: ?IV PPI DVT PROPHYLAXIS:? Pneumatic stockings while in bed Clinical update focused sepsis exam 0600 on 11/15/2023 VS: General:? Cardiac:? Clear S1-S2, no murmurs rubs or gallops. Pulmonary:? Clear to auscultation, no wheezes, rales or rhonchi. Abdomen:? Protuberant, positive bowel sounds in all 4 quadrants.? Soft, nontender, no rebound or guarding.? Neurologic:? As above, No focal deficits noted. Vascular:? 2+ pulses upper and lower extremities distally. ?Less than 2nd capillary refill of the finger and toes bilaterally upper and lower extremities. Repeat laboratories show improvement of his potassium Continue with the above- mentioned clinical care plan. Critical care time used for critical evaluation of this patient, diagnosis, treatment and coordination of care, review her records and documentation TOTAL CRITICAL CARE TIME??120? MIN . discussion and coordination with consultants, completely separate from any procedures performed. Patient's care was discussed in detail with Dr. Kay is aware of all the above as well as the plan of care for this patient. <SEBASTIAN Da Silva - Last Filed: 11/25/23 03:50> ASSESSMENT : 1. Severe acute kidney injury likely multifactorial including hypovolemia, volume losses, nephrotoxins (MISSAEL inhibitor) can not rule out the possibility of hyperpotassemia post bowel prep for sigmoidoscopy 2. Acute hyperkalemia 3. Severe metabolic acidosis due to the above 4. Anemia NOS rule out iron deficiency, micro bleeding, chronic disease 5. History of atrial fibrillation previously on Eliquis 6. History rectal cell carcinoma 7. Incidental finding of indeterminate lesion in the left kidney in need of follow-up with MRI. 8. Anuria 9. Suspected sepsis and septic shock 10. Metabolic Encephalophaty PLAN OF CARE: Admit to ICU, monitor vital signs, I's and O's, Mckeon catheter placement and continuous drip of sodium bicarb in D5, recheck laboratories monitor for recurrent hyperkalemia, we will also recheck his CBC now for his quite anemic and he is on anticoagulation therapy, to ensure the there is no evidence of bleed or need for transfusion. ?Add phosphorus levels, check stool occult blood and iron panel.? Patient will need outpatient follow-up MRI for further definition of the lesion in his left kidney.? Albumin infusion. ?There is significant foul smelly stool, will order stool PCR studies including C diff . Blood cultures are pending, patient did receive vancomycin and Zosyn. ?We will start him on Rocephin tomorrow morning as this does not need renal adjustment and the patient has had E coli organisms in his urine before, which could be the source of infection given that there is some wall thickening of the bladder noted on CT. ? GI PROPHYLAXIS: ?IV PPI DVT PROPHYLAXIS:? Pneumatic stockings while in bed Clinical update focused sepsis exam 0600 on 11/15/2023 VS: General:? Cardiac:? Clear S1-S2, no murmurs rubs or gallops. Pulmonary:? Clear to auscultation, no wheezes, rales or rhonchi. Abdomen:? Protuberant, positive bowel sounds in all 4 quadrants.? Soft, nontender, no rebound or guarding.? Neurologic:? As above, No focal deficits noted. Vascular:? 2+ pulses upper and lower extremities distally. ?Less than 2nd capillary refill of the finger and toes bilaterally upper and lower extremities. Repeat laboratories show improvement of his potassium Continue with the above- mentioned clinical care plan. Critical care time used for critical evaluation of this patient, diagnosis, treatment and coordination of care, review her records and documentation TOTAL CRITICAL CARE TIME??120? MIN . discussion and coordination with consultants, completely separate from any procedures performed. Patient's care was discussed in detail with Dr. Campo is aware of all the above as well as the plan of care for this patient. <Bryson Campo MD - Last Filed: 11/25/23 13:37>
[2023-11-24 23:45] LABS: Phosphorus 8.8 mg/dL (2.7-4.5)
[2023-11-25] VITALS (35 sets, daily range): BP systolic 92–154; BP diastolic 29–86; PULSE 60–143; RESP 12–22; TEMP 36.6–37.5; O2SAT 91–100; BMI 24.9
--- NOTE | 2023-11-25 00:44 | PC.NURSE ---
pt transferred to icu without issue hand over to avelina balderas.
[2023-11-25] MEDS: Albumin Human 25 % 100 ML 133.33 ML IV ×2 (00:48→01:34)
[2023-11-25 00:57] LABS: Hematocrit 21.6 % (42.0-52.0); Hemoglobin 7.1 g/dl (14.0-18.0); Mean Corpuscular HGB Conc 32.9 g/dl (31.0-36.0); Mean Corpuscular Hemoglobin 30.1 pg (27.0-33.0); Mean Corpuscular Volume 91.5 fL (80.0-98.0); Mean Platelet Volume 9.6 fL (9.4-12.4); Platelet Count 189 X10*3/uL (160-400); Red Blood Count 2.36 X10*6/uL (4.60-5.80); Red Cell Distribution Width 17.2 % (11.0-16.0); White Blood Count 10.9 X10*3/uL (4.8-10.8)
[2023-11-25 01:25] LABS: OBS Int Ctl Valid YES; OBS1 POSITIVE (NEGATIVE)
--- NOTE | 2023-11-25 01:33 | PC.NURSE ---
Bladder scna by PA showed [address] pt stated it feels hot when he tries to pee this Rn attepmted to adjust monroe, pt refused, PA aware.
[2023-11-25 02:21] LABS: Delay - Chemistry DELAY
[2023-11-25 03:19] LABS: CDiff Gene PCR NEGATIVE (Negative)
[2023-11-25 03:29] LABS: Alanine Aminotransferase 6 U/L (0-40); Albumin Level 5.2 g/dL (3.5-5.0); Alkaline Phosphatase 76 U/L (39-117); Anion Gap 23 (12-20); Aspartate Amino Transferase 7 U/L (5-37); Bilirubin Total 0.5 mg/dL (0.0-1.0); Blood Urea Nitrogen 107 mg/dL (9-16); Carbon Dioxide 8 mmol/L (22-29); Chloride 106 mmol/L (96-108); Creatinine Clr Calc Pharmacy 6.4; Estimated Glomerular Filt Rate 6; Glucose Random 86 mg/dL (60-115); Potassium 4.3 mmol/L (3.3-5.1); Sodium 133 mmol/L (135-145); Total Protein 7.6 g/dL (6.5-8.0)
[2023-11-25] MEDS: Norepinephrine Bitartrate/D5W 8 MG/250 ML PLAST..BAG 6.88 MG IVCONT (04:15)
[2023-11-25] MEDS: Calcium Acetate 667 MG CAPSULE 2001 MG PO (04:25)
[2023-11-25 04:48] LABS: VBG Base Excess -15.8 mmol/L; VBG HCO3 10 mmol/L (22-26); VBG pCO2 23 mmHg; VBG pH 7.23 (7.32-7.43); VBG pO2 29 mmHg
[2023-11-25 04:56] LABS: Venous Blood Gas Refer to POC result
[2023-11-25 05:13] LABS: Appearance Urine Turbid; Color Urine Yellow; Glucose Urine UA Negative (Negative); Leukocyte Esterase Urine Large (3+) (Negative); Nitrite Urine Negative (Negative); Specific Gravity - Urine 1.015 (1.005-1.025); UMIC TRIGGER UACC YES; Urine Blood Large (3+) (Negative); Urine Ketones Trace mg/dL (Negative); Urine Protein 300 (3+) mg/dL (Neg-Trace)
[2023-11-25] MEDS: Sodium Bicarbonate 8.4% 150 MEQ in Dextrose 5 % 850 ML IV ×3 (05:18→17:59)
[2023-11-25 05:22] LABS: Bacteria Urine 4+ (None Seen); RBC Urine >20 /HPF (0-2); UACC Culture Trigger YES; WBC Urine >50 /HPF (0-5)
[2023-11-25] MEDS: ondansetron HCL 4 MG/2 ML VIAL IVPUSH (05:23)
[2023-11-25] MEDS: Pantoprazole Sodium 40 MG/10 ML VIAL IVPUSH (05:23)
--- NOTE | 2023-11-25 05:24 | HO.HCP ---
Health Care Proxy Invocation Health Care Proxy Declaration: [employer] [facility] , on the date cited below, have determined that, Mr Mehran Gray , lacks the capacity to make or communicate, informed health care decision. This determination is made in accordance with accepted standards of medical judgment and pursuant to [place] 201[place], the [place] Health Care Proxy Law. The cause, nature, extent and probable duration of the patient's incapacity are described below: Cause: Metabolic encephalopathy Nature: Sepsis ANIL Extent: unknown Probable Duration of Patient's Incapacity: indeterminate Spoke with the patient's Fany Cavanaugh who is aware and will make decisions for him, for now he needs transfusion of PRBC given anemia in the setting of GIB and authorized it.
[2023-11-25 05:37] LABS: MANUAL DIFF FLAG NO
[2023-11-25 05:42] LABS: Basophils Percent Auto 0.2 % (0-2); Eosinophils Percent Auto 0.2 % (0-4); Imm Gran Abs Auto 0.29 X10*3/uL (0.00-0.03); Imm Gran Pct Auto 2.6 % (0.0-0.4); Lymphocytes Percent Auto 8.5 % (20-40); Mean Corpuscular Hemoglobin 29.6 pg (27.0-33.0); Mean Corpuscular Volume 92.4 fL (80.0-98.0); Mean Platelet Volume 10.7 fL (9.4-12.4); Monocytes Absolute Auto 1.4 X10*3/uL (0.1-1.2); Neutrophils Absolute Auto 8.7 x10*3/uL (2.0-8.3); Neutrophils Percent Auto 76.5 % (45-73); Platelet Count 200 X10*3/uL (160-400); Red Blood Count 2.23 X10*6/uL (4.60-5.80); Red Cell Distribution Width 17.2 % (11.0-16.0); White Blood Count 11.3 X10*3/uL (4.8-10.8)
[2023-11-25 05:46] LABS: Hemoglobin 6.6 g/dl (14.0-18.0)
[2023-11-25 05:47] LABS: Hematocrit 20.6 % (42.0-52.0)
[2023-11-25 06:02] LABS: Alanine Aminotransferase 7 U/L (0-40); Albumin Level 3.6 g/dL (3.5-5.0); Alkaline Phosphatase 88 U/L (39-117); Anion Gap 19 (12-20); Aspartate Amino Transferase 10 U/L (5-37); Bilirubin Total 0.8 mg/dL (0.0-1.0); Blood Urea Nitrogen 115 mg/dL (9-16); Calcium 8.6 mg/dL (8.4-10.2); Carbon Dioxide 10 mmol/L (22-29); Chloride 107 mmol/L (96-108); Creatinine Clr Calc Pharmacy 5.9; Estimated Glomerular Filt Rate 5; Glucose Random 154 mg/dL (60-115); Iron 64 mcg/dL (45-160); Magnesium 1.8 mg/dL (1.6-2.6); Percent Iron Saturation 44 % (15-50); Phosphorus 6.2 mg/dL (2.7-4.5); Potassium 4.5 mmol/L (3.3-5.1); Sodium 131 mmol/L (135-145); Total Iron Binding Capacity 146 mcg/dL (228-428); Unsaturated Iron Binding 82 ug/dL
[2023-11-25] MEDS: cefTRIAXone sodium 1 GM VIAL IVPUSH (06:31)
[2023-11-25 07:11] LABS: Uric Acid 12.1 mg/dL (3.4-7.0)
[2023-11-25 07:13] LABS: Erythrocyte Sedimentation Rate 65 MM/HR (0-15)
[2023-11-25 07:15] LABS: Osmolality Urine 303 mosm/kg (373-1093)
[2023-11-25 09:22] LABS: Adenovirus F 40/41 Not Detected (Not Detect.); Astrovirus Not Detected (Not Detect.); Campylobacter Not Detected (Not Detect.); Cryptosporidium Not Detected (Not Detect.); Cyclospora cayetanensis Not Detected (Not Detect.); E. coli EAEC Not Detected (Not Detect.); E. coli EPEC Detected (Not Detect.); E. coli ETEC Not Detected (Not Detect.); E. coli STEC Not Detected (Not Detect.); Entamoeba histolytica Not Detected (Not Detect.); Giardia lamblia Not Detected (Not Detect.); Norovirus GI/GII Not Detected (Not Detect.); Plesiomonas shigelloides Not Detected (Not Detect.); Rotavirus A Not Detected (Not Detect.); Salmonella Not Detected (Not Detect.); Sapovirus Not Detected (Not Detect.); Shigella sp./EIEC Not Detected (Not Detect.); Vibrio Not Detected (Not Detect.); Vibrio Cholerae Not Detected (Not Detect.); Yersinia enterocolitica Not Detected (Not Detect.)
--- NOTE | 2023-11-25 09:22 | PHA.MEDREC ---
Pharmacy Consult ? Medication Reconciliation Pharmacy has completed the medication reconciliation. Spoke with spouse/health care proxy and called [facility] [place] for med list. [facility] [place] included many more medication than provided including Clindamycin lotion 1%, clobetasol 0.5% cream, amiodarone 200mg, Vitamin C, and Capecitabine 500mg (has not filled recently). I included amiodarone and Vitamin C in the home med list, the only went by bottles she could find in the home, and could not find these two. She also denied he was on any prn lotions or cream (clindamycin, clobetasol, pramoxine).
[2023-11-25] MEDS: Pantoprazole Sodium 80 MG in 0.9 % Sodium Chloride 80 ML 10 MG IV ×2 (10:53→17:59)
[2023-11-25 11:41] LABS: Hematocrit 24.1 % (42.0-52.0); Hemoglobin 8.4 g/dl (14.0-18.0)
--- NOTE | 2023-11-25 14:01 | PM.CCPN ---
Subjective Subjective Date of Service: 11/25/23 Critical Care Time (minutes): 35 Comment: Hypotensive on small dose of Levophed Potassium improving, pH improving, creatinine stable Physical Exam Vital Signs: Vital Signs: Last Vital Signs Temp 99.1 F 11/25/23 13:00 Pulse 66 11/25/23 13:00 Resp 18 11/25/23 13:00 BP 141/53 H 11/25/23 13:00 Pulse Ox 98 11/25/23 13:00 O2 Del Method Room Air 11/25/23 13:00 O2 Flow Rate 6 11/24/23 20:00 BMI result Body Mass Index 24.9 General: Not in acute distress, comfortable lying in the bed Nutritional Appearance: well nourished and overweight Eyes: appearance normal, both eyes and all related structures; Alignment and Position: alignment normal and position normal Neck: No lymphadenopathy, no thyromegaly Resp: bilateral air entry equal, occasional added sounds present Cardio: Regular rate, regular rhythm; Heart sounds: S1 normal heart sound present and S2 normal heart sound present GI: soft, nontender, no guarding, no hepatosplenomegaly : bladder normal to inspection, bladder normal to palpation, no renal angle tenderness Skin: no rashes or lesions noted and elasticity normal Neuro: oriented to person, not oriented to place, oriented to time and moves all extremities Objective Data Labs 11/25/23 11:20 11/25/23 04:42 Labs: Laboratory Results - last 24 hr 11/24/23 11/24/23 11/24/23 18:49 18:50 18:58 WBC 13.2 H RBC 2.99 L Hgb 9.1 L Hct 27.7 L MCV 92.6 MCH 30.4 MCHC 32.9 RDW 17.3 H Plt Count 273 D MPV 10.4 Immature Gran % (Auto) 3.6 H Neut % (Auto) 77.3 H Lymph % (Auto) 10.8 L [place] % (Auto) 7.8 Eos % (Auto) 0.2 Baso % (Auto) 0.3 Lymph # (Auto) 1.4 [place] # (Auto) 1.0 Eos # (Auto) 0.0 Baso # (Auto) 0.0 Abs Immat Gran (auto) 0.48 H Absolute Neuts (auto) 10.2 H Absolute Nucleated RBC 0.020 H Nucleated RBC % (auto) 0.2 ESR PT 17.0 H INR 1.5 H APTT 31.0 VBG pH 7.05 L* VBG pCO2 18 VBG pO2 89 VBG HCO3 5 L VBG O2 Saturation 95.0 VBG Base Excess -23.0 Sodium 130 L Potassium 7.0 H* D Chloride 112 H Carbon Dioxide < 5 L* D Anion Gap TNP BUN 120 H Creatinine 11.73 H* Estim Creat Clear Calc 5.1 Estimated GFR 4 Random Glucose 99 Lactic Acid 1.2 Uric Acid Calcium 8.6 Phosphorus 8.8 H Magnesium 2.5 Iron TIBC % Saturation Unsat Iron Binding Total Bilirubin 0.4 AST 10 ALT 8 Alkaline Phosphatase 118 H Troponin I High Sens 8.6 C-Reactive Protein 5.79 H B-Natriuretic Peptide 37 Total Protein 7.2 Albumin 3.5 Specimen Comment Urine Color Urine Appearance Urine pH Ur Specific [place] Urine Protein Urine Glucose (UA) Urine Ketones Urine Blood Urine Nitrite Ur Leukocyte Esterase Urine RBC Urine WBC Ur Squamous Epith Cells Urine Bacteria Hyaline Casts Urine Osmolality Ur Random Sodium Urine Creatinine Stool Occult Blood Stl C. cayetanensis PCR Stool Rotavirus A PCR Stl Adenov F 40/41 PCR Stool Astrovirus (PCR) Stool Campylobacter PCR Stool Cryptosporidium PCR Stl Sh Tox Pr E STEC PCR Stool E coli O157 PCR Stl Enterotoxigenic E PCR Stool EPEC (PCR) Stool EAEC (PCR) Stl E. histolytica PCR Stool Giardia Lamblia PCR Stl P. shigelloides PCR Stool Salmonella PCR Stool Sapovirus (PCR) Stl Shigella/EIEC PCR St Y.enterocolitica PCR Stool Vibrio (PCR) Stl Vibrio cholerae PCR Stl Norovirus GI/GII PCR C. difficile Tox B Gene Blood Type Antibody Screen Crossmatch 11/24/23 11/24/23 11/25/23 22:30 22:36 00:51 WBC 10.9 H RBC 2.36 L D Hgb 7.1 L D Hct 21.6 L D MCV 91.5 MCH 30.1 MCHC 32.9 RDW 17.2 H Plt Count 189 D MPV 9.6 Immature Gran % (Auto) Neut % (Auto) Lymph % (Auto) [place] % (Auto) Eos % (Auto) Baso % (Auto) Lymph # (Auto) [place] # (Auto) Eos # (Auto) Baso # (Auto) Abs Immat Gran (auto) Absolute Neuts (auto) Absolute Nucleated RBC 0.000 Nucleated RBC % (auto) 0.0 ESR PT INR APTT VBG pH 7.15 L* VBG pCO2 18 VBG pO2 66 VBG HCO3 6 L VBG O2 Saturation 89.0 VBG Base Excess -20.1 Sodium 132 L Potassium 5.1 D Chloride 114 H Carbon Dioxide 7 L* D Anion Gap 16 BUN 118 H Creatinine 10.41 H* Estim Creat Clear Calc 5.7 Estimated GFR 5 Random Glucose 90 Lactic Acid 1.7 Uric Acid Calcium 8.2 L Phosphorus Magnesium Iron TIBC % Saturation Unsat Iron Binding Total Bilirubin AST ALT Alkaline Phosphatase Troponin I High Sens C-Reactive Protein B-Natriuretic Peptide Total Protein Albumin Specimen Comment Urine Color Urine Appearance Urine pH Ur Specific [place] Urine Protein Urine Glucose (UA) Urine Ketones Urine Blood Urine Nitrite Ur Leukocyte Esterase Urine RBC Urine WBC Ur Squamous Epith Cells Urine Bacteria Hyaline Casts Urine Osmolality Ur Random Sodium Urine Creatinine Stool Occult Blood Stl C. cayetanensis PCR Stool Rotavirus A PCR Stl Adenov F 40/ PCR Stool Astrovirus (PCR) Stool Campylobacter PCR Stool Cryptosporidium PCR Stl Sh Tox Pr E STEC PCR Stool E coli O157 PCR Stl Enterotoxigenic E PCR Stool EPEC (PCR) Stool EAEC (PCR) Stl E. histolytica PCR Stool Giardia Lamblia PCR Stl P. shigelloides PCR Stool Salmonella PCR Stool Sapovirus (PCR) Stl Shigella/EIEC PCR St Y.enterocolitica PCR Stool Vibrio (PCR) Stl Vibrio cholerae PCR Stl Norovirus GI/GII PCR C. difficile Tox B Gene Blood Type Antibody Screen Crossmatch 11/25/23 11/25/23 11/25/23 00:59 01:25 02:03 WBC RBC Hgb Hct MCV MCH MCHC RDW Plt Count MPV Immature Gran % (Auto) Neut % (Auto) Lymph % (Auto) [place] % (Auto) Eos % (Auto) Baso % (Auto) Lymph # (Auto) [place] # (Auto) Eos # (Auto) Baso # (Auto) Abs Immat Gran (auto) Absolute Neuts (auto) Absolute Nucleated RBC Nucleated RBC % (auto) ESR PT INR APTT VBG pH VBG pCO2 VBG pO2 VBG HCO3 VBG O2 Saturation VBG Base Excess Sodium 133 L Potassium 4.3 Chloride 106 Carbon Dioxide 8 L* Anion Gap 23 H BUN 107 H Creatinine 9.24 H* Estim Creat Clear Calc 6.4 Estimated GFR 6 Random Glucose 86 Lactic Acid Uric Acid Calcium 8.0 L Phosphorus Magnesium Iron TIBC % Saturation Unsat Iron Binding Total Bilirubin 0.5 AST 7 ALT 6 Alkaline Phosphatase 76 Troponin I High Sens C-Reactive Protein B-Natriuretic Peptide Total Protein 7.6 Albumin 5.2 H Specimen Comment Urine Color Urine Appearance Urine pH Ur Specific [place] Urine Protein Urine Glucose (UA) Urine Ketones Urine Blood Urine Nitrite Ur Leukocyte Esterase Urine RBC Urine WBC Ur Squamous Epith Cells Urine Bacteria Hyaline Casts Urine Osmolality Ur Random Sodium Urine Creatinine Stool Occult Blood POSITIVE Stl C. cayetanensis PCR Not Detected Stool Rotavirus A PCR Not Detected Stl Adenov F 40/41 PCR Not Detected Stool Astrovirus (PCR) Not Detected Stool Campylobacter PCR Not Detected Stool Cryptosporidium PCR Not Detected Stl Sh Tox Pr E STEC PCR Not Detected Stool E coli O157 PCR Not applicable Stl Enterotoxigenic E PCR Not Detected Stool EPEC (PCR) Detected A Stool EAEC (PCR) Not Detected Stl E. histolytica PCR Not Detected Stool Giardia Lamblia PCR Not Detected Stl P. shigelloides PCR Not Detected Stool Salmonella PCR Not Detected Stool Sapovirus (PCR) Not Detected Stl Shigella/EIEC PCR Not Detected St Y.enterocolitica PCR Not Detected Stool Vibrio (PCR) Not Detected Stl Vibrio cholerae PCR Not Detected Stl Norovirus GI/GII PCR Not Detected C. difficile Tox B Gene NEGATIVE Blood Type A Positive Antibody Screen NEGATIVE Crossmatch See Detail 11/25/23 11/25/23 11/25/23 02:20 04:38 04:42 WBC 11.3 H RBC 2.23 L Hgb 6.6 L* Hct 20.6 L* MCV 92.4 MCH 29.6 MCHC 32.0 RDW 17.2 H Plt Count 200 MPV 10.7 Immature Gran % (Auto) 2.6 H Neut % (Auto) 76.5 H Lymph % (Auto) 8.5 L [place] % (Auto) 12.0 H Eos % (Auto) 0.2 Baso % (Auto) 0.2 Lymph # (Auto) 1.0 L [place] # (Auto) 1.4 H Eos # (Auto) 0.0 Baso # (Auto) 0.0 Abs Immat Gran (auto) 0.29 H Absolute Neuts (auto) 8.7 H Absolute Nucleated RBC 0.000 Nucleated RBC % (auto) 0.0 ESR 65 H PT INR APTT VBG pH 7.23 L VBG pCO2 23 VBG pO2 29 VBG HCO3 10 L VBG O2 Saturation 40.0 VBG Base Excess -15.8 Sodium 131 L Potassium 4.5 Chloride 107 Carbon Dioxide 10 L* D Anion Gap 19 BUN 115 H Creatinine 10.12 H* Estim Creat Clear Calc 5.9 Estimated GFR 5 Random Glucose 154 H Lactic Acid Uric Acid 12.1 H Calcium 8.6 D Phosphorus 6.2 H Magnesium 1.8 Iron 64 TIBC 146 L % Saturation 44 Unsat Iron Binding 82 Total Bilirubin 0.8 AST 10 ALT 7 Alkaline Phosphatase 88 Troponin I High Sens C-Reactive Protein B-Natriuretic Peptide Total Protein 6.0 L Albumin 3.6 Specimen Comment DELAY Urine Color Urine Appearance Urine pH Ur Specific [place] Urine Protein Urine Glucose (UA) Urine Ketones Urine Blood Urine Nitrite Ur Leukocyte Esterase Urine RBC Urine WBC Ur Squamous Epith Cells Urine Bacteria Hyaline Casts Urine Osmolality Ur Random Sodium Urine Creatinine Stool Occult Blood Stl C. cayetanensis PCR Stool Rotavirus A PCR Stl Adenov F 40 PCR Stool Astrovirus (PCR) Stool Campylobacter PCR Stool Cryptosporidium PCR Stl Sh Tox Pr E STEC PCR Stool E coli O157 PCR Stl Enterotoxigenic E PCR Stool EPEC (PCR) Stool EAEC (PCR) Stl E. histolytica PCR Stool Giardia Lamblia PCR Stl P. shigelloides PCR Stool Salmonella PCR Stool Sapovirus (PCR) Stl Shigella/EIEC PCR St Y.enterocolitica PCR Stool Vibrio (PCR) Stl Vibrio cholerae PCR Stl Norovirus GI/GII PCR C. difficile Tox B Gene Blood Type Antibody Screen Crossmatch 11/25/23 11/25/23 11/25/23 04:54 06:36 11:20 WBC RBC Hgb 8.4 L D Hct 24.1 L MCV MCH MCHC RDW Plt Count MPV Immature Gran % (Auto) Neut % (Auto) Lymph % (Auto) [place] % (Auto) Eos % (Auto) Baso % (Auto) Lymph # (Auto) [place] # (Auto) Eos # (Auto) Baso # (Auto) Abs Immat Gran (auto) Absolute Neuts (auto) Absolute Nucleated RBC Nucleated RBC % (auto) ESR PT INR APTT VBG pH VBG pCO2 VBG pO2 VBG HCO3 VBG O2 Saturation VBG Base Excess Sodium Potassium Chloride Carbon Dioxide Anion Gap BUN Creatinine Estim Creat Clear Calc Estimated GFR Random Glucose Lactic Acid Uric Acid Calcium Phosphorus Magnesium Iron TIBC % Saturation Unsat Iron Binding Total Bilirubin AST ALT Alkaline Phosphatase Troponin I High Sens C-Reactive Protein B-Natriuretic Peptide Total Protein Albumin Specimen Comment Urine Color Yellow Urine Appearance Turbid Urine pH 5.0 Ur Specific [place] 1.015 Urine Protein 300 (3+) H Urine Glucose (UA) Negative Urine Ketones Trace Urine Blood Large (3+) H Urine Nitrite Negative Ur Leukocyte Esterase Large (3+) H Urine RBC >20 H Urine WBC >50 H Ur Squamous Epith Cells 3-5 Urine Bacteria 4+ Hyaline Casts 11-20 Urine Osmolality 303 L Ur Random Sodium 24.0 Urine Creatinine 145.50 Stool Occult Blood Stl C. cayetanensis PCR Stool Rotavirus A PCR Stl Adenov F 40/41 PCR Stool Astrovirus (PCR) Stool Campylobacter PCR Stool Cryptosporidium PCR Stl Sh Tox Pr E STEC PCR Stool E coli O157 PCR Stl Enterotoxigenic E PCR Stool EPEC (PCR) Stool EAEC (PCR) Stl E. histolytica PCR Stool Giardia Lamblia PCR Stl P. shigelloides PCR Stool Salmonella PCR Stool Sapovirus (PCR) Stl Shigella/EIEC PCR St Y.enterocolitica PCR Stool Vibrio (PCR) Stl Vibrio cholerae PCR Stl Norovirus GI/GII PCR C. difficile Tox B Gene Blood Type Antibody Screen Crossmatch Progress Note: A&P Assessment and plan (1) Metabolic acidosis: Status: Acute (2) Acute hyperkalemia: Status: Acute (3) Acute renal failure: Status: Acute (4) HTN (hypertension): Status: Acute (5) Pacemaker: Status: Acute Plan Acute kidney injury: Hyperkalemia: High anion gap metabolic acidosis: History unclear as patient is confused and is not able to give much history. Looks like patient has a ANIL secondary to volume depletion, acute blood loss and concurrent MISSAEL inhibitor administration. However since the stool is positive for E coli we will rule out hemolytic syndromes. Bedside echo shows IVC collapsing RV slightly smaller and septum deviated towards the right Patient has liquid watery green colored stools coming out of ostomy tube, was also underwent for sigmoidoscopy 2 days ago further precipitating volume depletion Currently on D5 water with bicarb at 150 cc/hour, we will give him another L of sodium bicarbonate bolus No acute indication for renal replacement therapy as electrolytes are stable, no hypervolemia; urine output about 60 cc since morning so not anuric. Continue holding MISSAEL inhibitors and other nephrotoxic medications Hypovolemic shock: Currently on Levophed support, we will give him another L of fluid bolus to take off of Levophed Bedside echo shows normal LV systolic function However underlying bleeding leading to shock can not be completely ruled out. Patient can not get contrast due to ANIL to identify if there is any bleeding source. CT abdomen and pelvis showing groin collection of fluid in the pelvis, if the repeat hemoglobin is further dropping we will consult surgery Acute blood loss anemia: Received 2 units of PRBC this morning, we will recheck CBC Concern for hematoma in the pelvis on the CT We will consult General surgery Acute encephalopathy: Possibly due to uremic encephalopathy We will continue to closely monitor his neurological status in the ICU Rectal cancer cancer: Status post chemotherapy in, status post end ileostomy Has clear greenish colored ostomy fluid which is growing E coli, continue ceftriaxone Prophylaxis: SCD, pantoprazole Quality Stroke Does the patient have a stroke diagnosis?: No VTE Prior VTE?: No VTE Risk Level:: Medical - moderate - high VTE Device Contraindication: N/A - Device Ordered VTE Drug Contraindication: N/A - Med Ordered
--- NOTE | 2023-11-25 14:32 | MHC.CM.PN ---
Attempted to meet with patient in regards to discharge planning. Nursing care currently being provided. Will attempt to meet again. Continue to monitor for d/c needs.
[2023-11-25 14:45] LABS: VBG Base Excess -6.7 mmol/L; VBG HCO3 15 mmol/L (22-26); VBG pCO2 22 mmHg; VBG pH 7.44 (7.32-7.43); VBG pO2 89 mmHg
[2023-11-25 14:47] LABS: INTERNATIONAL NORM RATIO 1.3 (0.9-1.1); Prothrombin Time 15.5 SEC (10.9-12.4)
[2023-11-25 14:49] LABS: Venous Blood Gas Refer to POC result
[2023-11-25 15:07] LABS: Lactic Acid 0.8 mmol/L (0.5-2.0)
[2023-11-25] MEDS: Sodium Bicarbonate 8.4% 150 MEQ in Dextrose 5 % 850 ML 999 MEQ IV (15:09)
[2023-11-25 15:21] LABS: Alanine Aminotransferase 7 U/L (0-40); Albumin Level 3.2 g/dL (3.5-5.0); Alkaline Phosphatase 81 U/L (39-117); Anion Gap 20 (12-20); Aspartate Amino Transferase 8 U/L (5-37); Bilirubin Total 1.3 mg/dL (0.0-1.0); Blood Urea Nitrogen 106 mg/dL (9-16); Calcium 7.8 mg/dL (8.4-10.2); Carbon Dioxide 15 mmol/L (22-29); Chloride 104 mmol/L (96-108); Creatinine Clr Calc Pharmacy 6.6; Estimated Glomerular Filt Rate 6; Glucose Random 143 mg/dL (60-115); Lactate Dehydrogenase 168 U/L (118-273); Potassium 3.7 mmol/L (3.3-5.1); Sodium 135 mmol/L (135-145); Total Protein 5.7 g/dL (6.5-8.0)
[2023-11-25 20:40] LABS: Hematocrit 24.4 % (42.0-52.0); Hemoglobin 8.7 g/dl (14.0-18.0)
[2023-11-25 21:06] LABS: Alanine Aminotransferase 6 U/L (0-40); Alkaline Phosphatase 76 U/L (39-117); Anion Gap 18 (12-20); Aspartate Amino Transferase 9 U/L (5-37); Bilirubin Total 1.4 mg/dL (0.0-1.0); Blood Urea Nitrogen 98 mg/dL (9-16); Calcium 7.5 mg/dL (8.4-10.2); Carbon Dioxide 21 mmol/L (22-29); Chloride 101 mmol/L (96-108); Creatinine Clr Calc Pharmacy 7.2; Estimated Glomerular Filt Rate 6; Glucose Random 116 mg/dL (60-115); Potassium 3.3 mmol/L (3.3-5.1); Sodium 137 mmol/L (135-145); Total Protein 5.4 g/dL (6.5-8.0)
[2023-11-26] VITALS (29 sets, daily range): BP systolic 100–138; BP diastolic 44–59; PULSE 60–102; RESP 10–21; TEMP 36.3–37.3; O2SAT 90–98; BMI 25.2
[2023-11-26] MEDS: Sodium Bicarbonate 8.4% 150 MEQ in Dextrose 5 % 850 ML IV ×3 (00:31→15:40)
[2023-11-26 00:40] LABS: Haptoglobin 55 mg/dL (40-268)
[2023-11-26] MEDS: Albumin Human 25 % 100 ML IV ×2 (02:19→03:28)
[2023-11-26] MEDS: Pantoprazole Sodium 80 MG in 0.9 % Sodium Chloride 80 ML 10 MG IV ×2 (03:59→15:40)
[2023-11-26 05:09] LABS: VBG Base Excess 5.9 mmol/L; VBG HCO3 28 mmol/L (22-26); VBG pCO2 32 mmHg; VBG pH 7.54 (7.32-7.43); VBG pO2 64 mmHg
[2023-11-26 05:11] LABS: Venous Blood Gas Refer to POC result
[2023-11-26 05:17] LABS: MANUAL DIFF FLAG NO
[2023-11-26 05:21] LABS: Basophils Percent Auto 0.4 % (0-2); Eosinophils Absolute Auto 0.1 X10*3/uL (0.0-0.4); Hematocrit 22.9 % (42.0-52.0); Hemoglobin 8.1 g/dl (14.0-18.0); Imm Gran Abs Auto 0.23 X10*3/uL (0.00-0.03); Imm Gran Pct Auto 2.9 % (0.0-0.4); Lymphocytes Absolute Auto 0.7 X10*3/uL (1.2-4.9); Lymphocytes Percent Auto 9.3 % (20-40); Mean Corpuscular HGB Conc 35.4 g/dl (31.0-36.0); Mean Corpuscular Hemoglobin 30.6 pg (27.0-33.0); Mean Corpuscular Volume 86.4 fL (80.0-98.0); Mean Platelet Volume 10.4 fL (9.4-12.4); Monocytes Absolute Auto 1.1 X10*3/uL (0.1-1.2); Monocytes Percent Auto 13.9 % (2-11); Neutrophils Absolute Auto 5.8 x10*3/uL (2.0-8.3); Neutrophils Percent Auto 72.5 % (45-73); Platelet Count 161 X10*3/uL (160-400); Red Blood Count 2.65 X10*6/uL (4.60-5.80); Red Cell Distribution Width 15.6 % (11.0-16.0)
[2023-11-26] MEDS: cefTRIAXone sodium 1 GM VIAL IVPUSH (05:22)
[2023-11-26] MEDS: Norepinephrine Bitartrate/D5W 8 MG/250 ML PLAST..BAG 2.75 MG IVCONT (05:25)
[2023-11-26 05:43] LABS: Alanine Aminotransferase < 5 U/L (0-40); Albumin Level 3.4 g/dL (3.5-5.0); Alkaline Phosphatase 64 U/L (39-117); Anion Gap 17 (12-20); Aspartate Amino Transferase 8 U/L (5-37); Bilirubin Total 1.4 mg/dL (0.0-1.0); Blood Urea Nitrogen 92 mg/dL (9-16); Calcium 7.5 mg/dL (8.4-10.2); Carbon Dioxide 27 mmol/L (22-29); Chloride 98 mmol/L (96-108); Estimated Glomerular Filt Rate 7; Glucose Random 119 mg/dL (60-115); Magnesium 1.4 mg/dL (1.6-2.6); Phosphorus 4.4 mg/dL (2.7-4.5); Potassium 2.8 mmol/L (3.3-5.1); Sodium 139 mmol/L (135-145); Total Protein 5.4 g/dL (6.5-8.0)
[2023-11-26] MEDS: Potassium Chloride Packet 20 MEQ PACKET 40 MEQ PO (06:11)
[2023-11-26] MEDS: Magnesium Sulfate/H2O 2 GM/50 ML PIGGYBACK IV (06:12)
[2023-11-26] MEDS: Potassium Chloride/H20 10 MEQ/100 ML PIGGYBACK 100 MEQ IV ×8 (06:22→22:37)
--- NOTE | 2023-11-26 09:30 | PM.CCPN ---
Subjective Subjective Date of Service: 11/26/23 Critical Care Time (minutes): 60 Physical Exam Vital Signs: Vital Signs: Last Vital Signs Temp 98.8 F 11/26/23 08:00 Pulse 69 11/26/23 08:00 Resp 11 L 11/26/23 08:00 BP 120/52 L 11/26/23 08:00 Pulse Ox 94 11/26/23 08:00 O2 Del Method Room Air 11/26/23 08:00 O2 Flow Rate 6 11/24/23 20:00 BMI result Body Mass Index 25.2 Const: General: cooperative, healthy appearing, comfortable, no acute distress, well developed, alert, awake and Physically active Orientation/consciousness: patient oriented x3 HEENT: Head: Yes normal to inspection, Yes normocephalic and Yes atraumatic Eyes: General: appearance normal, both eyes and all related structures Neck: Neck: Yes normal visual inspection, Yes full ROM, Yes no meningeal signs, Yes trachea midline and Yes supple Chest: Chest palpation & inspection: normal inspection of the chest Resp: Other: no appreciable rales, rhonchi, wheezing Effort & Inspection: normal respiratory effort GI: Other: appreciable RLQ ileostomy bag w/ liquid green-brown stool Inspection: Yes normal to inspection, No Abdominal wall edema and No distended Palpation (GI): Soft to palpation, not firm, nontender, no guarding and not rigid : Male General Exam: Yes normal external exam Skin: General skin exam: no rashes or lesions noted Neuro: General: patient oriented x3, tone normal, moves all extremities, no meningeal signs and no focal motor deficits Extrem: General: Yes normal to inspection, Yes full ROM, Yes capillary refill normal and Yes no clubbing, cyanosis or edema Psych: Appearance: grossly normal Objective Data Labs 11/26/23 04:57 11/26/23 04:57 Labs: Laboratory Results - last 24 hr 11/25/23 11/25/23 11/25/23 00:59 01:25 11:20 WBC RBC Hgb 8.4 L D Hct 24.1 L MCV MCH MCHC RDW Plt Count MPV Immature Gran % (Auto) Neut % (Auto) Lymph % (Auto) [place] % (Auto) Eos % (Auto) Baso % (Auto) Lymph # (Auto) [place] # (Auto) Eos # (Auto) Baso # (Auto) Abs Immat Gran (auto) Absolute Neuts (auto) Absolute Nucleated RBC Nucleated RBC % (auto) PT INR VBG pH VBG pCO2 VBG pO2 VBG HCO3 VBG O2 Saturation VBG Base Excess Sodium Potassium Chloride Carbon Dioxide Anion Gap BUN Creatinine Estim Creat Clear Calc Estimated GFR Random Glucose Haptoglobin Lactic Acid Calcium Phosphorus Magnesium Total Bilirubin AST ALT Alkaline Phosphatase Lactate Dehydrogenase Total Protein Albumin Stl C. cayetanensis PCR Not Detected Stool Rotavirus A PCR Not Detected Stl Adenov F 40/41 PCR Not Detected Stool Astrovirus (PCR) Not Detected Stool Campylobacter PCR Not Detected Stool Cryptosporidium PCR Not Detected Stl Sh Tox Pr E STEC PCR Not Detected Stool E coli O157 PCR Not applicable Stl Enterotoxigenic E PCR Not Detected Stool EPEC (PCR) Detected A Stool EAEC (PCR) Not Detected Stl E. histolytica PCR Not Detected Stool Giardia Lamblia PCR Not Detected Stl P. shigelloides PCR Not Detected Stool Salmonella PCR Not Detected Stool Sapovirus (PCR) Not Detected Stl Shigella/EIEC PCR Not Detected St Y.enterocolitica PCR Not Detected Stool Vibrio (PCR) Not Detected Stl Vibrio cholerae PCR Not Detected Stl Norovirus GI/GII PCR Not Detected Blood Type A Positive Antibody Screen NEGATIVE BILL, Polyspecific NEGATIVE Positive BILL Work-up TNP Crossmatch See Detail 11/25/23 11/25/23 11/25/23 14:33 14:34 14:42 WBC RBC Hgb Hct MCV MCH MCHC RDW Plt Count MPV Immature Gran % (Auto) Neut % (Auto) Lymph % (Auto) [place] % (Auto) Eos % (Auto) Baso % (Auto) Lymph # (Auto) [place] # (Auto) Eos # (Auto) Baso # (Auto) Abs Immat Gran (auto) Absolute Neuts (auto) Absolute Nucleated RBC Nucleated RBC % (auto) PT 15.5 H INR 1.3 H VBG pH 7.44 H VBG pCO2 22 VBG pO2 89 VBG HCO3 15 L VBG O2 Saturation 100.0 VBG Base Excess -6.7 Sodium 135 Potassium 3.7 Chloride 104 Carbon Dioxide 15 L Anion Gap 20 BUN 106 H Creatinine 9.04 H* Estim Creat Clear Calc 6.6 Estimated GFR 6 Random Glucose 143 H Haptoglobin 55 Lactic Acid 0.8 Calcium 7.8 L D Phosphorus Magnesium Total Bilirubin 1.3 H AST 8 ALT 7 Alkaline Phosphatase 81 Lactate Dehydrogenase 168 Total Protein 5.7 L Albumin 3.2 L Stl C. cayetanensis PCR Stool Rotavirus A PCR Stl Adenov F 40/41 PCR Stool Astrovirus (PCR) Stool Campylobacter PCR Stool Cryptosporidium PCR Stl Sh Tox Pr E STEC PCR Stool E coli O157 PCR Stl Enterotoxigenic E PCR Stool EPEC (PCR) Stool EAEC (PCR) Stl E. histolytica PCR Stool Giardia Lamblia PCR Stl P. shigelloides PCR Stool Salmonella PCR Stool Sapovirus (PCR) Stl Shigella/EIEC PCR St Y.enterocolitica PCR Stool Vibrio (PCR) Stl Vibrio cholerae PCR Stl Norovirus GI/GII PCR Blood Type Antibody Screen BILL, Polyspecific Positive BILL Work-up Crossmatch 11/25/23 11/25/23 11/26/23 20:30 20:31 04:57 WBC 8.0 RBC 2.65 L Hgb 8.7 L 8.1 L Hct 24.4 L 22.9 L MCV 86.4 D MCH 30.6 MCHC 35.4 RDW 15.6 Plt Count 161 MPV 10.4 Immature Gran % (Auto) 2.9 H Neut % (Auto) 72.5 Lymph % (Auto) 9.3 L [place] % (Auto) 13.9 H Eos % (Auto) 1.0 Baso % (Auto) 0.4 Lymph # (Auto) 0.7 L [place] # (Auto) 1.1 Eos # (Auto) 0.1 Baso # (Auto) 0.0 Abs Immat Gran (auto) 0.23 H Absolute Neuts (auto) 5.8 Absolute Nucleated RBC 0.000 Nucleated RBC % (auto) 0.0 PT INR VBG pH VBG pCO2 VBG pO2 VBG HCO3 VBG O2 Saturation VBG Base Excess Sodium 137 139 Potassium 3.3 2.8 L* Chloride 101 98 Carbon Dioxide 21 L 27 Anion Gap 18 17 BUN 98 H 92 H Creatinine 8.24 H* 7.44 H* Estim Creat Clear Calc 7.2 8.0 Estimated GFR 6 7 Random Glucose 116 H 119 H Haptoglobin Lactic Acid Calcium 7.5 L 7.5 L Phosphorus 4.4 Magnesium 1.4 L* Total Bilirubin 1.4 H 1.4 H AST 9 8 ALT 6 < 5 Alkaline Phosphatase 76 64 Lactate Dehydrogenase Total Protein 5.4 L 5.4 L Albumin 3.0 L 3.4 L Stl C. cayetanensis PCR Stool Rotavirus A PCR Stl Adenov F 40 PCR Stool Astrovirus (PCR) Stool Campylobacter PCR Stool Cryptosporidium PCR Stl Sh Tox Pr E STEC PCR Stool E coli O157 PCR Stl Enterotoxigenic E PCR Stool EPEC (PCR) Stool EAEC (PCR) Stl E. histolytica PCR Stool Giardia Lamblia PCR Stl P. shigelloides PCR Stool Salmonella PCR Stool Sapovirus (PCR) Stl Shigella/EIEC PCR St Y.enterocolitica PCR Stool Vibrio (PCR) Stl Vibrio cholerae PCR Stl Norovirus GI/GII PCR Blood Type Antibody Screen BILL, Polyspecific Positive BILL Work-up Crossmatch 11/26/23 04:59 WBC RBC Hgb Hct MCV MCH MCHC RDW Plt Count MPV Immature Gran % (Auto) Neut % (Auto) Lymph % (Auto) [place] % (Auto) Eos % (Auto) Baso % (Auto) Lymph # (Auto) [place] # (Auto) Eos # (Auto) Baso # (Auto) Abs Immat Gran (auto) Absolute Neuts (auto) Absolute Nucleated RBC Nucleated RBC % (auto) PT INR VBG pH 7.54 H VBG pCO2 32 VBG pO2 64 VBG HCO3 28 H VBG O2 Saturation 93.0 VBG Base Excess 5.9 Sodium Potassium Chloride Carbon Dioxide Anion Gap BUN Creatinine Estim Creat Clear Calc Estimated GFR Random Glucose Haptoglobin Lactic Acid Calcium Phosphorus Magnesium Total Bilirubin AST ALT Alkaline Phosphatase Lactate Dehydrogenase Total Protein Albumin Stl C. cayetanensis PCR Stool Rotavirus A PCR Stl Adenov F PCR Stool Astrovirus (PCR) Stool Campylobacter PCR Stool Cryptosporidium PCR Stl Sh Tox Pr E STEC PCR Stool E coli O157 PCR Stl Enterotoxigenic E PCR Stool EPEC (PCR) Stool EAEC (PCR) Stl E. histolytica PCR Stool Giardia Lamblia PCR Stl P. shigelloides PCR Stool Salmonella PCR Stool Sapovirus (PCR) Stl Shigella/EIEC PCR St Y.enterocolitica PCR Stool Vibrio (PCR) Stl Vibrio cholerae PCR Stl Norovirus GI/GII PCR Blood Type Antibody Screen BILL, Polyspecific Positive BILL Work-up Crossmatch Microbiology Microbiology Results: Microbiology 11/24/23 18:49 Blood - Venous Blood Culture - Preliminary No growth after 24 hours. 11/24/23 19:08 Blood - Venous Blood Culture - Preliminary No growth after 24 hours. Progress Note: A&P Assessment and plan (1) Acute renal failure: Status: Acute (2) Diarrhea: Status: Acute Plan Patient is a 78 U M w/ hypertension, hyperlipidemia, c/b sick sinus syndrome s/p pacemaker, and rectal carcinoma s/p colectomy, ileostomy, initially presenting to emergency department on 11/23 w/ non-specific symptoms, found to be hypotensive and w/ acute renal failure, thought to be d/t dehydration N: encephalopathy, likely toxic-metabolic, improving CV: hypotension, likely d/t hypovolemia; norepinephrine gtt, wean as tolerated R: no acute issues GI: rectal carcinoma s/p colectomy, ileostomy; to monitor ileostomy output : acute renal failure c/b hyperkalemia, improving; to closely monitor/replete electrolytes H: anemia, likely hemodilution; CT A/P performed suggestive of hematoma; general surgery consulted ID: stool w/ e. coli, empiric ceftriaxone E: no acute issues P: no acute issues Quality Stroke Does the patient have a stroke diagnosis?: No VTE Prior VTE?: No VTE Risk Level:: Medical - moderate - high VTE Device Contraindication: N/A - Device Ordered VTE Drug Contraindication: N/A - Med Ordered
[2023-11-26] MEDS: Calcium Gluconate/NaCl,Iso-Osm 1 GM/50 ML PLAST..BAG IV (10:51)
[2023-11-26 10:56] LABS: TSH reflex Free T4 0.75 uIU/mL (0.32-4.0)
[2023-11-26 10:58] LABS: Cortisol Random 11.7 ug/dL
[2023-11-26] MEDS: Albumin Human 25 % 50 ML 100 ML IV (11:36)
--- NOTE | 2023-11-26 15:14 | PM.CNGS ---
History of Present Illness Consult details Consult date: 11/26/23 Narrative: Patient is a 78-year-old male whom I know very well was several weeks status post resection for rectal cancer with diverting ileostomy done at [facility]. Patient has a plethora of comorbidities and intercurrent medical problems. Among other issues, patient had a CT scan on 10/11 which demonstrated an intra-abdominal hematoma/seroma most likely related postoperatively. His most recent CT scan from 11/23 demonstrates this process to be essentially status quo. No evidence of any abscess or air-fluid levels ready think to suggest more ominous pathology. Patient was being admitted for variety of issues and concern was that this hematoma/seroma may be infected. [facility] Past Medical History Medical History (Updated 11/26/23 @ 10:17 by Lidia Kay MD) Postoperative hematoma involving digestive system following digestive system procedure Aftercare following left shoulder joint replacement surgery Pacemaker OA (osteoarthritis) Borderline hyperlipidemia Obesity HTN (hypertension) EtOH dependence Mild cognitive impairment Inhibited sex excitement Atrial fibrillation Cancer of kidney High cholesterol Hypertension Family History Family History Mother Heart problem Social History Social History Household Members: Spouse Housing: House Do you presently have visiting nurse or other home services: No Alcohol intake: former Comment: refusing alarms Patient Tobacco Use Status: Former Tobacco user Tobacco use type: Cigarette Smoked in Last 30 Days: No Use of substances other than those prescribed or required for medical reasons: No Currently Displaying Signs/Symptoms of Drug Intoxication Withdrawal: No Have you been hit, kicked, punched, or otherwise hurt by someone within the past year? If so, by whom?: No Do you feel safe in your current relationship?: Yes Is there a partner from a previous relationship who is making you feel unsafe now?: No Are you made to feel afraid or neglected: No Advance Directives: Yes Advance Directives on File: Yes Advance Directives Date on File: 11/29/22 Do you have a plan to hurt others: No Plan Recently lost weight without trying: No Eating poorly because of decreased appetite: No Nutrition Risks: No Nutritional Risk Poor oral hygiene: No service: Yes Meds Allergies Allergy/AdvReac Type Severity Reaction Status Date / Time No Known Allergies [NKA] Allergy Mild NOT Verified 11/24/23 18:31 APPLICABLE Active Medications: Current Medications Ceftriaxone Sodium (Ceftriaxone Sodium 1 Gm Vial) 1 gm IVPUSH Q24H [facility] Last Admin: 11/26/23 05:22 Dose: 1 gm Norepinephrine Bitartrate (Levophed) 8 mg in 250 mls @ 0 mls/hr IVCONT .Q0M [facility]; Protocol Last Titration: 11/26/23 10:29 Dose: 0 mcg/kg/min, 0 mls/hr Pantoprazole Sodium 80 mg/ (Sodium Chloride) 100 mls @ 10 mls/hr IV .Q10H [facility] Last Admin: 11/26/23 03:59 Dose: 8 mg/hr, 10 mls/hr Sodium Bicarbonate 150 meq/ (Dextrose) 1,000 mls @ 150 mls/hr IV .Q6H40M [facility] Last Admin: 11/26/23 07:47 Dose: 150 mls/hr Ondansetron HCl (Ondansetron Hcl 4 Mg/2 Ml Vial) 4 mg IVPUSH Q8H PRN PRN Reason: Nausea and Vomiting Last Admin: 11/25/23 05:23 Dose: 4 mg Home Medications ?Medication ?Instructions ?Recorded ?Confirmed ?Last Taken ?Type lisinopril 5 mg tablet 5 mg PO DAILY 10/12/23 11/25/23 11/24/23 History acetaminophen 325 mg tablet 325 mg PO QID PRN Pain 11/25/23 11/25/23 Unknown History Physical Exam Vital Signs: Vital Signs: Last Vital Signs Temp 98.6 F 11/26/23 14:00 Pulse 68 11/26/23 14:00 Resp 21 H 11/26/23 14:00 BP 116/53 L 11/26/23 14:00 Pulse Ox 93 11/26/23 14:00 O2 Del Method Room Air 11/26/23 14:00 O2 Flow Rate 6 11/24/23 20:00 BMI result Body Mass Index 25.2 Const: Other: Patient sitting up, watching TV, in no acute distress. He has no abdominal issues or complaints. Abdomen is soft, corpulent. Ileostomy functioning well. Incision clean dry and intact. No obvious guarding, rebound, or rigidity. Results Labs 11/26/23 04:57 11/26/23 04:57 Labs: Abnormal lab results 10/11/25/23 11/25/23 Range/Units 14:33 20:30 20:31 RBC (4.60-5.80) X10*6/uL Hgb 8.7 L (14.0-18.0) g/dl Hct 24.4 L (42.0-52.0) % Immature Gran % (Auto) (0.0-0.4) % Lymph % (Auto) (20-40) % [place] % (Auto) (2-11) % Lymph # (Auto) (1.2-4.9) X10*3/uL Abs Immat Gran (auto) (0.00-0.03) X10*3/uL VBG pH (7.32-7.43) VBG HCO3 (22-26) mmol/L Potassium (3.3-5.1) mmol/L Carbon Dioxide 15 L 21 L (22-29) mmol/L BUN 106 H 98 H (9-16) mg/dL Creatinine 9.04 H* 8.24 H* (0.5-1.4) mg/dL Random Glucose 143 H 116 H (60-115) mg/dL Calcium 7.8 L D 7.5 L (8.4-10.2) mg/dL Magnesium (1.6-2.6) mg/dL Total Bilirubin 1.3 H 1.4 H (0.0-1.0) mg/dL Total Protein 5.7 L 5.4 L (6.5-8.0) g/dL Albumin 3.2 L 3.0 L (3.5-5.0) g/dL 11/26/23 11/26/23 Range/Units 04:57 04:59 RBC 2.65 L (4.60-5.80) X10*6/uL Hgb 8.1 L (14.0-18.0) g/dl Hct 22.9 L (42.0-52.0) % Immature Gran % (Auto) 2.9 H (0.0-0.4) % Lymph % (Auto) 9.3 L (20-40) % [place] % (Auto) 13.9 H (2-11) % Lymph # (Auto) 0.7 L (1.2-4.9) X10*3/uL Abs Immat Gran (auto) 0.23 H (0.00-0.03) X10*3/uL VBG pH 7.54 H (7.32-7.43) VBG HCO3 28 H (22-26) mmol/L Potassium 2.8 L* (3.3-5.1) mmol/L Carbon Dioxide (22-29) mmol/L BUN 92 H (9-16) mg/dL Creatinine 7.44 H* (0.5-1.4) mg/dL Random Glucose 119 H (60-115) mg/dL Calcium 7.5 L (8.4-10.2) mg/dL Magnesium 1.4 L* (1.6-2.6) mg/dL Total Bilirubin 1.4 H (0.0-1.0) mg/dL Total Protein 5.4 L (6.5-8.0) g/dL Albumin 3.4 L (3.5-5.0) g/dL Short CBC 11/25/23 11/26/23 Range/Units 20:31 04:57 WBC 8.0 (4.8-10.8) X10*3/uL Hgb 8.7 L 8.1 L (14.0-18.0) g/dl Hct 24.4 L 22.9 L (42.0-52.0) % Plt Count 161 (160-400) X10*3/uL BMP 11/25/23 11/25/23 11/26/23 14:33 20:30 04:57 Sodium 135 137 139 Potassium 3.7 3.3 2.8 L* Chloride 104 101 98 Carbon Dioxide 15 L 21 L 27 BUN 106 H 98 H 92 H Creatinine 9.04 H* 8.24 H* 7.44 H* Calcium 7.8 L D 7.5 L 7.5 L Liver Function 11/25/23 11/25/23 11/26/23 Range/Units 14:33 20:30 04:57 Total Bilirubin 1.3 H 1.4 H 1.4 H (0.0-1.0) mg/dL AST 8 9 8 (5-37) U/L ALT 7 6 < 5 (0-40) U/L Alkaline Phosphatase 81 76 64 (39-117) U/L Albumin 3.2 L 3.0 L 3.4 L (3.5-5.0) g/dL Urine 11/25/23 Range/Units 04:54 Urine Color Yellow Urine Appearance Turbid Urine pH 5.0 (5.0-9.0) Ur Specific [place] 1.015 (1.005-1.025) Urine Protein 300 (3+) H (Neg-Trace) mg/dL Urine Glucose (UA) Negative (Negative) mg/dL All other labs normal. Assessment and Plan (1) Diarrhea: Status: Acute (2) Uremia: Status: Acute (3) Metabolic acidosis: Status: Acute (4) Acute hyperkalemia: Status: Acute (5) Acute renal failure: Status: Acute (6) Acute on chronic anemia: Status: Acute Plan At present, no acute surgical issues. As noted above, CT scan findings from this admission essentially are similar to the 1 from 10/11. Nothing to suggest abscess on the scan from this process. Unlikely to be the source of patient's anemia. If there is persistent concern that this may be part of his infectious pathology, consult IR drainage can be considered. Procedures Date of Service Date of Service: 11/26/23
--- NOTE | 2023-11-26 15:22 | MHC.CM.PN ---
EMR REVIEWED, PT W/ANIL, MET ACIDOSIS, HYPERKALEMIA, HYPOTENSION ADMITTED TO ICU, PT A&O AND ABLE TO ANSWER ALL QUESTIONS VIA PSYCHIATRIC REGISTERED NURSE, PT REPORTS HE LIVES W/, DENIES USE OF DME/HOME SERVICES AND REPORTS HIS ASSISTS W/ANY NEEDS, PT DOES REPORT HE IS OPEN TO [facility]/STR IF RECOMMENDED. PT VERIFIES HE ONLY HAS [facility] AND REPORTS HE IS SERVICES CONNECTED, CM WILL NEED TO VERIFY W/CM [facility]. PT VERIFIES PCP IS DR. MONTERO AT THE AND HCP ON FILE.
[2023-11-26 18:32] LABS: Anion Gap 15 (12-20); Blood Urea Nitrogen 81 mg/dL (9-16); Calcium 7.4 mg/dL (8.4-10.2); Carbon Dioxide 31 mmol/L (22-29); Chloride 97 mmol/L (96-108); Creatinine Clr Calc Pharmacy 9.7; Estimated Glomerular Filt Rate 9; Glucose Random 111 mg/dL (60-115); Magnesium 1.8 mg/dL (1.6-2.6); Phosphorus 3.4 mg/dL (2.7-4.5); Potassium 3.1 mmol/L (3.3-5.1); Sodium 140 mmol/L (135-145)
[2023-11-27] VITALS (17 sets, daily range): BP systolic 94–143; BP diastolic 47–71; PULSE 60–130; RESP 12–20; TEMP 37.1–37.5; O2SAT 91–100; BMI 25.2
--- NOTE | 2023-11-27 | ECG_ITS ---
Test Reason : arrhythmia Blood Pressure : / mmHG Vent. Rate : 113 BPM Atrial Rate : 000 BPM P-R Int : 000 ms QRS Dur : 104 ms QT Int : 342 ms P-R-T Axes : 000 -15 106 degrees QTc Int : 469 ms Atrial fibrillation with rapid ventricular response Minimal voltage criteria for LVH, may be normal variant ( Greene product ) Nonspecific ST abnormality Abnormal ECG When compared with ECG of 24-NOV-2023 22:16, Artifact in prior EKG, cannot compare Referred By: Ling Dang Electronically Signed By:JEWELS FLORES
[2023-11-27] MEDS: Pantoprazole Sodium 80 MG in 0.9 % Sodium Chloride 80 ML 10 MG IV ×2 (01:27→11:03)
[2023-11-27] MEDS: Amiodarone HCL 200 MG TABLET PO ×2 (01:27→08:54)
[2023-11-27 05:18] LABS: MANUAL DIFF FLAG NO
[2023-11-27] MEDS: cefTRIAXone sodium 1 GM VIAL IVPUSH (05:31)
[2023-11-27 05:32] LABS: Basophils Percent Auto 0.5 % (0-2); Eosinophils Absolute Auto 0.1 X10*3/uL (0.0-0.4); Eosinophils Percent Auto 1.3 % (0-4); Hematocrit 24.3 % (42.0-52.0); Hemoglobin 8.4 g/dl (14.0-18.0); Imm Gran Abs Auto 0.32 X10*3/uL (0.00-0.03); Imm Gran Pct Auto 3.9 % (0.0-0.4); Lymphocytes Absolute Auto 0.9 X10*3/uL (1.2-4.9); Lymphocytes Percent Auto 10.4 % (20-40); Mean Corpuscular HGB Conc 34.6 g/dl (31.0-36.0); Mean Corpuscular Hemoglobin 30.8 pg (27.0-33.0); Mean Platelet Volume 10.2 fL (9.4-12.4); Monocytes Absolute Auto 1.2 X10*3/uL (0.1-1.2); Monocytes Percent Auto 15.1 % (2-11); Neutrophils Absolute Auto 5.6 x10*3/uL (2.0-8.3); Neutrophils Percent Auto 68.8 % (45-73); Platelet Count 149 X10*3/uL (160-400); Red Blood Count 2.73 X10*6/uL (4.60-5.80); Red Cell Distribution Width 15.9 % (11.0-16.0); White Blood Count 8.2 X10*3/uL (4.8-10.8)
[2023-11-27 05:35] LABS: Anion Gap 15 (12-20); Blood Urea Nitrogen 75 mg/dL (9-16); Calcium 7.3 mg/dL (8.4-10.2); Carbon Dioxide 31 mmol/L (22-29); Chloride 100 mmol/L (96-108); Creatinine Clr Calc Pharmacy 10.1; Estimated Glomerular Filt Rate 9; Glucose Random 98 mg/dL (60-115); Magnesium 1.8 mg/dL (1.6-2.6); Phosphorus 3.6 mg/dL (2.7-4.5); Potassium 3.4 mmol/L (3.3-5.1); Sodium 143 mmol/L (135-145)
[2023-11-27 06:02] LABS: Albumin Level 3.3 g/dL (3.5-5.0)
--- NOTE | 2023-11-27 08:36 | P.CONNP_ITS ---
History of Present Illness Reason for Consult Consult date: 11/27/23 Chief Complaint Chief complaint: ANIL, Met acidosis,hyperkalemia, hypotension History of Present Illness Narrative: Pt is a 78 y/o male with a medical hx of rectal carcinoma, afib, sick sinus syndrome (AV pacer), left shoulder replacement, osteoarthritis, HLD, HTN, obesity, EtOH dependence, renal carcinoma. recent CT shows left renal lesion with rec'd MRI follow up admit on 11/23 for weakness, confusion at home pt with low BP 89/40 on arrival, poor PO intake prior to admission, requiring vasopressor support in ICU (now off pressors) anuria, left renal lesion and potassium of 7.0 on admission of note he received bowel prep for a sigmoidoscopy a few days prior to arrival creatinine 11.73 on arrival (previous baseline 0.99), most recent creatinine today 5.87 he is making urine (937mL last 24 hours, has a monroe in place) potassium has normalized- serum cortisol level within normal limits on 11/25 he is alert and oriented to person, place time this a.m. he denies pain, shortness of breath he denies nausea, tremors, pruritus per chart review, has seen urology for monitoring of renal carcinoma, last visit Dec 2022. Review of Systems Constitutional: Reports fatigue Denies dizziness Cardiovascular: Denies chest pain, Denies dyspnea and Denies orthopnea Respiratory: Reports no additional respiratory complaints and Denies dyspnea Gastrointestinal: Denies abdominal pain, Denies diarrhea, Denies nausea and Denies vomiting Genitourinary: Denies hematuria, Denies dysuria and Denies flank pain Musculoskeletal: Denies arthralgias and Denies muscle cramps Skin/Breast: Denies rash Denies dizziness and Denies tremor(s) Endocrine: Reports fatigue PMFSH Past Medical History Medical History (Updated 11/27/23 @ 08:49 by Kelsey Givens, ROYER, [employer]) Postoperative hematoma involving digestive system following digestive system procedure Aftercare following left shoulder joint replacement surgery Pacemaker OA (osteoarthritis) Borderline hyperlipidemia Obesity HTN (hypertension) EtOH dependence Mild cognitive impairment Inhibited sex excitement Atrial fibrillation Cancer of kidney High cholesterol Hypertension Family History Family History Mother Heart problem Social History Social History Household Members: Spouse Housing: House Do you presently have visiting nurse or other home services: No Alcohol intake: former Comment: refusing alarms Patient Tobacco Use Status: Former Tobacco user Tobacco use type: Cigarette Smoked in Last 30 Days: No Use of substances other than those prescribed or required for medical reasons: No Currently Displaying Signs/Symptoms of Drug Intoxication Withdrawal: No Have you been hit, kicked, punched, or otherwise hurt by someone within the past year? If so, by whom?: No Do you feel safe in your current relationship?: Yes Is there a partner from a previous relationship who is making you feel unsafe now?: No Are you made to feel afraid or neglected: No Advance Directives: Yes Advance Directives on File: Yes Advance Directives Date on File: 11/29/22 Do you have a plan to hurt others: No Plan Recently lost weight without trying: No Eating poorly because of decreased appetite: No Nutrition Risks: No Nutritional Risk Poor oral hygiene: No service: Yes Meds Allergies Allergy/AdvReac Type Severity Reaction Status Date / Time No Known Allergies [NKA] Allergy Mild NOT Verified 11/24/23 18:31 APPLICABLE Active Medications: Current Medications Amiodarone HCl (Amiodarone Hcl 200 Mg Tablet) 200 mg PO DAILY [facility] Last Admin: 11/27/23 01:27 Dose: 200 mg Ceftriaxone Sodium (Ceftriaxone Sodium 1 Gm Vial) 1 gm IVPUSH Q24H [facility] Last Admin: 11/27/23 05:31 Dose: 1 gm Pantoprazole Sodium 80 mg/ (Sodium Chloride) 100 mls @ 10 mls/hr IV .Q10H [facility] Last Admin: 11/27/23 01:27 Dose: 8 mg/hr, 10 mls/hr Calcium Gluconate (Calcium Gluconate) 1 gm in 50 mls @ 50 mls/hr IV ONCE ONE Stop: 11/27/23 08:59 Ondansetron HCl (Ondansetron Hcl 4 Mg/2 Ml Vial) 4 mg IVPUSH Q8H PRN PRN Reason: Nausea and Vomiting Last Admin: 11/25/23 05:23 Dose: 4 mg Home Medications ?Medication ?Instructions ?Recorded ?Confirmed ?Last Taken ?Type lisinopril 5 mg tablet 5 mg PO DAILY 10/12/23 11/25/23 11/24/23 History acetaminophen 325 mg tablet 325 mg PO QID PRN Pain 11/25/23 11/25/23 Unknown History Physical Exam Vital Signs: Last Vital Signs Temp 99.0 F 11/27/23 08:00 Pulse 65 11/27/23 08:00 Resp 18 11/27/23 08:00 BP 116/62 11/27/23 08:00 Pulse Ox 97 11/27/23 08:00 O2 Del Method Room Air 11/27/23 08:00 O2 Flow Rate 2 11/27/23 05:00 BMI result Body Mass Index 25.2 Const General: comfortable and no acute distress Orientation/consciousness: oriented to person, oriented to place and oriented to time Neck Neck: Yes no JVD Resp Effort & Inspection: able to speak in complete sentences Auscultation: rhonchi Cardio Jugular venous distension: no JVD Rate: regular rate Rhythm: regular rhythm GI Palpation (GI): Soft to palpation Rectal Exam - Male: No tenderness General: Yes no CVA tenderness Back/Spine/Pelvis Back: no CVA tenderness Skin Rashes: no rashes Neuro General: oriented to person, oriented to place and oriented to time Extrem General: Yes normal to inspection, No edema and No pedal edema Results Lab Results 11/27/23 05:00 11/27/23 05:00 Lab results: Chemistry 11/24/23 11/24/23 11/25/23 18:49 22:30 02:03 Sodium 130 L 132 L 133 L Potassium 7.0 H* D 5.1 D 4.3 Carbon Dioxide < 5 L* D 7 L* D 8 L* BUN 120 H 118 H 107 H Creatinine 11.73 H* 10.41 H* 9.24 H* Calcium 8.6 8.2 L 8.0 L Phosphorus 8.8 H 11/25/23 11/25/23 11/25/23 04:42 14:33 20:30 Sodium 131 L 135 137 Potassium 4.5 3.7 3.3 Carbon Dioxide 10 L* D 15 L 21 L BUN 115 H 106 H 98 H Creatinine 10.12 H* 9.04 H* 8.24 H* Calcium 8.6 D 7.8 L D 7.5 L Phosphorus 6.2 H 11/26/23 11/26/23 11/27/23 04:57 18:07 05:00 Sodium 139 140 143 Potassium 2.8 L* 3.1 L 3.4 Carbon Dioxide 27 31 H 31 H BUN 92 H 81 H 75 H Creatinine 7.44 H* 6.11 H* 5.87 H* Calcium 7.5 L 7.4 L 7.3 L Phosphorus 4.4 3.4 3.6 Hematology 11/24/23 11/25/23 11/25/23 18:49 00:51 04:42 WBC 13.2 H 10.9 H 11.3 H Hgb 9.1 L 7.1 L D 6.6 L* Plt Count 273 D 189 D 200 11/25/23 11/25/23 11/26/23 11:20 20:31 04:57 WBC 8.0 Hgb 8.4 L D 8.7 L 8.1 L Plt Count 161 11/27/23 05:00 WBC 8.2 Hgb 8.4 L Plt Count 149 L Urinalysis 11/25/23 04:54 Urine Color Yellow Urine Appearance Turbid Urine pH 5.0 Ur Specific [place] 1.015 Urine Protein 300 (3+) H Urine Glucose (UA) Negative Urine Ketones Trace Urine Blood Large (3+) H Urine Nitrite Negative Ur Leukocyte Esterase Large (3+) H Urine RBC >20 H Urine WBC >50 H Ur Squamous Epith Cells 3-5 Hyaline Casts 11-20 Urine Studies 11/25/23 06:36 Urine Osmolality 303 L Urine Creatinine 145.50 Assessment and Plan (1) Metabolic acidosis: Status: Acute (2) Acute hyperkalemia: Status: Acute (3) Acute renal failure: Qualifiers: Acute renal failure type: unspecified Qualified Code(s): N17.9 - Acute kidney failure, unspecified Status: Acute (4) HTN (hypertension): Qualifiers: Hypertension type: primary hypertension Qualified Code(s): I10 - Essential (primary) hypertension Status: Acute Plan Likely tubular injury with resultant AGN secondary to hypoperfusion from volume depletion in setting of ACEi use patient's renal function continues to significantly improve with current regimen no reason to suspect obstructive uropathy, AIN or GN recommend optimize volume status, repleate electrolytes as needed no indication for dialysis at this time Discussed with Dr Jin Winters Date of Service Date of Service: 11/27/23
--- NOTE | 2023-11-27 08:43 | P.CONNP_ITS ---
History of Present Illness Reason for Consult Consult date: 11/27/23 Chief Complaint Chief complaint: ANIL, Met acidosis,hyperkalemia, hypotension History of Present Illness Narrative: 77-/m with pmh of etoh abuse, afib on AC, ckd,htn, cognitive impairment, obese, OA, dyslipidemia, rectal cancer on oral chemotherapy and radiation followed by Dr. Gaxiola He has CKD 3 at baseline. He initially underwent neoadjuvant treatment and eventually had low anterior resection and diverting loop ileostomy at [facility] on 09/24/2023. The patient says that since recent flex sig at [facility] he has felt unwell for several days. He feels generally weak and has had chills Patient denies chest pressure, palpitations. No fever, chills, abdominal pain. IN the ER he was in acute renal failure with severe metabolic acidosis with associated hyperkalemia. He had QRS widening on his EKG. The patient was given high-dose albuterol, calcium gluconate, insulin and dextrose, and a bicarbonate drip to address his hyperkalemia along with IV fluids. Labs were significant for a pH of 7.05, a creatinine of 11, a BUN of 120, a serum CO2 of less than 7, and a potassium of 7.0. The patient is EKGs seemed to improve with narrowing of his QRS complex. Repeat labs showed a potassium of 5.7. A CT scan of the abdomen and pelvis did not show any sign of urinary obstruction. Review of Systems Constitutional: Reports as per HPI Cardiovascular: Denies chest pain and Denies dyspnea Respiratory: Denies cough and Denies dyspnea Gastrointestinal: Denies diarrhea and Denies vomiting Genitourinary: Denies flank pain [facility] Past Medical History Medical History (Updated 11/27/23 @ 08:49 by Kelsey Givens, ROYER, [employer]) Postoperative hematoma involving digestive system following digestive system procedure Aftercare following left shoulder joint replacement surgery Pacemaker OA (osteoarthritis) Borderline hyperlipidemia Obesity HTN (hypertension) EtOH dependence Mild cognitive impairment Inhibited sex excitement Atrial fibrillation Cancer of kidney High cholesterol Hypertension Family History Family History Mother Heart problem Social History Social History Household Members: Spouse Housing: House Do you presently have visiting nurse or other home services: No Alcohol intake: former Comment: refusing alarms Patient Tobacco Use Status: Former Tobacco user Tobacco use type: Cigarette Smoked in Last 30 Days: No Use of substances other than those prescribed or required for medical reasons: No Currently Displaying Signs/Symptoms of Drug Intoxication Withdrawal: No Have you been hit, kicked, punched, or otherwise hurt by someone within the past year? If so, by whom?: No Do you feel safe in your current relationship?: Yes Is there a partner from a previous relationship who is making you feel unsafe now?: No Are you made to feel afraid or neglected: No Advance Directives: Yes Advance Directives on File: Yes Advance Directives Date on File: 11/29/22 Do you have a plan to hurt others: No Plan Recently lost weight without trying: No Eating poorly because of decreased appetite: No Nutrition Risks: No Nutritional Risk Poor oral hygiene: No service: Yes Meds Allergies Allergy/AdvReac Type Severity Reaction Status Date / Time No Known Allergies [NKA] Allergy Mild NOT Verified 11/24/23 18:31 APPLICABLE Active Medications: Current Medications Amiodarone HCl (Amiodarone Hcl 200 Mg Tablet) 200 mg PO DAILY [facility] Last Admin: 11/27/23 01:27 Dose: 200 mg Ceftriaxone Sodium (Ceftriaxone Sodium 1 Gm Vial) 1 gm IVPUSH Q24H [facility] Last Admin: 11/27/23 05:31 Dose: 1 gm Pantoprazole Sodium 80 mg/ (Sodium Chloride) 100 mls @ 10 mls/hr IV .Q10H [facility] Last Admin: 11/27/23 01:27 Dose: 8 mg/hr, 10 mls/hr Calcium Gluconate (Calcium Gluconate) 1 gm in 50 mls @ 50 mls/hr IV ONCE ONE Stop: 11/27/23 08:59 Ondansetron HCl (Ondansetron Hcl 4 Mg/2 Ml Vial) 4 mg IVPUSH Q8H PRN PRN Reason: Nausea and Vomiting Last Admin: 11/25/23 05:23 Dose: 4 mg Home Medications ?Medication ?Instructions ?Recorded ?Confirmed ?Last Taken ?Type lisinopril 5 mg tablet 5 mg PO DAILY 10/12/23 11/25/23 11/24/23 History acetaminophen 325 mg tablet 325 mg PO QID PRN Pain 11/25/23 11/25/23 Unknown History Physical Exam Vital Signs: Last Vital Signs Temp 99.0 F 11/27/23 08:00 Pulse 65 11/27/23 08:00 Resp 18 11/27/23 08:00 BP 116/62 11/27/23 08:00 Pulse Ox 97 11/27/23 08:00 O2 Del Method Room Air 11/27/23 08:00 O2 Flow Rate 2 11/27/23 05:00 BMI result Body Mass Index 25.2 cvs: s1s2 RS; cta ABd; soft Results Lab Results 11/27/23 05:00 11/27/23 05:00 Lab results: Chemistry 11/24/23 11/24/23 11/25/23 18:49 22:30 02:03 Sodium 130 L 132 L 133 L Potassium 7.0 H* D 5.1 D 4.3 Carbon Dioxide < 5 L* D 7 L* D 8 L* BUN 120 H 118 H 107 H Creatinine 11.73 H* 10.41 H* 9.24 H* Calcium 8.6 8.2 L 8.0 L Phosphorus 8.8 H 11/25/23 11/25/23 11/25/23 04:42 14:33 20:30 Sodium 131 L 135 137 Potassium 4.5 3.7 3.3 Carbon Dioxide 10 L* D 15 L 21 L BUN 115 H 106 H 98 H Creatinine 10.12 H* 9.04 H* 8.24 H* Calcium 8.6 D 7.8 L D 7.5 L Phosphorus 6.2 H 11/26/23 11/26/23 11/27/23 04:57 18:07 05:00 Sodium 139 140 143 Potassium 2.8 L* 3.1 L 3.4 Carbon Dioxide 27 31 H 31 H BUN 92 H 81 H 75 H Creatinine 7.44 H* 6.11 H* 5.87 H* Calcium 7.5 L 7.4 L 7.3 L Phosphorus 4.4 3.4 3.6 Hematology 11/24/23 11/25/23 11/25/23 18:49 00:51 04:42 WBC 13.2 H 10.9 H 11.3 H Hgb 9.1 L 7.1 L D 6.6 L* Plt Count 273 D 189 D 200 11/25/23 11/25/23 11/26/23 11:20 20:31 04:57 WBC 8.0 Hgb 8.4 L D 8.7 L 8.1 L Plt Count 161 11/27/23 05:00 WBC 8.2 Hgb 8.4 L Plt Count 149 L Urinalysis 11/25/23 04:54 Urine Color Yellow Urine Appearance Turbid Urine pH 5.0 Ur Specific [place] 1.015 Urine Protein 300 (3+) H Urine Glucose (UA) Negative Urine Ketones Trace Urine Blood Large (3+) H Urine Nitrite Negative Ur Leukocyte Esterase Large (3+) H Urine RBC >20 H Urine WBC >50 H Ur Squamous Epith Cells 3-5 Hyaline Casts 11-20 Urine Studies 11/25/23 06:36 Urine Osmolality 303 L Urine Creatinine 145.50 Assessment and Plan (1) Acute renal failure: Qualifiers: Acute renal failure type: unspecified Qualified Code(s): N17.9 - Acute kidney failure, unspecified Status: Acute (2) Acute hyperkalemia: Status: Acute Plan 77-/m with pmh of etoh abuse, afib on AC, ckd,htn, cognitive impairment, obese, OA, dyslipidemia, rectal cancer on oral chemotherapy and radiation followed by Dr. Gaxiola He has CKD 3 at baseline cr ~ 1.3 Severe ANIL Hyperkalemia CKD 3a Anil in the setting of poor po [place]nake, ischemic atn leding to hyperkalemia now improving pt still appears hypovolemic plan continue ivf @ 75m l/ hr replete potassium if < 3.2 due to catastrophic anil, will order expanded work up including autoimmune, AIN and Mgrs moitor uop monitor ostomy output - goal < 1 liter / day avoid nephrotoxins no urgent indications for dialysis today expect slow recovery from anil will continue to follow with ream Procedures Date of Service Date of Service: 11/27/23
--- NOTE | 2023-11-27 08:49 | P.PNCC_ITS ---
Subjective Subjective Date of Service: 11/27/23 Interval History: no significant overnight events Critical Care Time (minutes): 0 Physical Exam 2 Vital Signs: Vital Signs: Last Vital Signs Temp 99.0 F 11/27/23 08:00 Pulse 65 11/27/23 08:00 Resp 18 11/27/23 08:00 BP 116/62 11/27/23 08:00 Pulse Ox 97 11/27/23 08:00 O2 Del Method Room Air 11/27/23 08:00 O2 Flow Rate 2 11/27/23 05:00 BMI result Body Mass Index 25.2 Const: General: cooperative, healthy appearing, comfortable, no acute distress, well developed, alert, awake and Physically active O rientation/consciousness: patient oriented x3 HEENT: Head: Yes normal to inspection, Yes normocephalic and Yes atraumatic Eyes: General: appearance normal, both eyes and all related structures Neck: Neck: Yes normal visual inspection, Yes full ROM, Yes no meningeal signs, Yes trachea midline and Yes supple Chest: Chest palpation & inspection: normal inspection of the chest Resp: Other: no appreciable rales, rhonchi, wheezing Cardio: Rate: Other (alternating tachycardia/bradycardia) Rhythm: abnormal rhythm GI: Inspection: Yes normal to inspection, No Abdominal wall edema and No distended Palpation (GI): Soft to palpation, not firm, nontender, no guarding and not rigid Skin: General skin exam: no rashes or lesions noted Neuro: General: patient oriented x3, tone normal, moves all extremities, no meningeal signs and no focal motor deficits Extrem: General: Yes normal to inspection, Yes full ROM, Yes capillary refill normal and Yes no clubbing, cyanosis or edema Psych: Appearance: grossly normal Objective Data Labs 11/27/23 05:00 11/27/23 05:00 Labs: Laboratory Results - last 24 hr 11/26/23 11/26/23 11/27/23 09:54 18:07 05:00 WBC 8.2 RBC 2.73 L Hgb 8.4 L Hct 24.3 L MCV 89.0 MCH 30.8 MCHC 34.6 RDW 15.9 Plt Count 149 L MPV 10.2 Immature Gran % (Auto) 3.9 H Neut % (Auto) 68.8 Lymph % (Auto) 10.4 L Newberry % (Auto) 15.1 H Eos % (Auto) 1.3 Baso % (Auto) 0.5 Lymph # (Auto) 0.9 L Newberry # (Auto) 1.2 Eos # (Auto) 0.1 Baso # (Auto) 0.0 Abs Immat Gran (auto) 0.32 H Absolute Neuts (auto) 5.6 Absolute Nucleated RBC 0.000 Nucleated RBC % (auto) 0.0 Sodium 140 143 Potassium 3.1 L 3.4 Chloride 97 100 Carbon Dioxide 31 H 31 H Anion Gap 15 15 BUN 81 H 75 H Creatinine 6.11 H* 5.87 H* Estim Creat Clear Calc 9.7 10.1 Estimated GFR 9 9 Random Glucose 111 98 Calcium 7.4 L 7.3 L Phosphorus 3.4 3.6 Magnesium 1.8 1.8 Albumin 3.3 L TSH 0.75 Random Cortisol 11.7 Microbiology Microbiology Results: Microbiology 11/25/23 19:48 Rectal Swab Gram Stain - Final 11/25/23 19:48 Rectal Swab Routine Culture - Preliminary Culture in progress. 11/24/23 18:49 Blood - Venous Blood Culture - Preliminary No growth after 48 hours. 11/24/23 19:08 Blood - Venous Blood Culture - Preliminary No growth after 48 hours. 11/25/23 06:36 Urine Catheterized - Mckeon Catheter Urine Culture - Preliminary Culture in progress. Progress Note: A&P Assessment and plan (1) Acute renal failure: Status: Acute (2) Diarrhea: Status: Acute (3) Sick sinus syndrome: Status: Acute Plan Patient is a 78 U M w/ hypertension, hyperlipidemia, c/b sick sinus syndrome s/p pacemaker, and rectal carcinoma s/p colectomy, ileostomy, initially presenting to emergency department on 11/23 w/ non-specific symptoms, found to be hypotensive and w/ acute renal failure, thought to be d/t dehydration N: encephalopathy, likely toxic-metabolic, improving CV: hypotension, likely d/t hypovolemia, resolved R: no acute issues GI: rectal carcinoma s/p colectomy, ileostomy; to monitor ileostomy output : acute renal failure c/b hyperkalemia, improving; to closely monitor/replete electrolytes H: anemia, likely hemodilution; CT A/P performed suggestive of hematoma; appreciate general surgery recommendations ID: stool w/ e. coli, empiric ceftriaxone E: no acute issues P: no acute issues Quality Stroke Does the patient have a stroke diagnosis?: No VTE Prior VTE?: No VTE Risk Level:: Medical - moderate - high VTE Device Contraindication: N/A - Device Ordered VTE Drug Contraindication: N/A - Med Ordered
[2023-11-27] MEDS: Calcium Gluconate/NaCl,Iso-Osm 1 GM/50 ML PLAST..BAG IV (08:54)
[2023-11-27] MEDS: Albumin Human 25 % 50 ML 100 ML IV (08:54)
[2023-11-27] MEDS: Potassium Chloride Packet 20 MEQ PACKET PO (09:12)
[2023-11-27] MEDS: Morphine Sulfate 2 MG/ML CARTRIDGE IVPUSH ×2 (12:58→17:04)
--- NOTE | 2023-11-27 15:03 | PC.NURSE ---
Assumed care at 0700- Pt. AOx4, no complaints of pain, +BS. At approx 1200, ostomy emptied for 300 cc liquid dark brown stool. Stoma appearing round, beefy red in color, and moist. Pt. c/o intermittent 8/10 lower abd pain with no aggravating factors. notified- PRN Morphine ordered and administered per APR. At approx 1400 stoma appearing elongated and protruding from pt. abdomen, remains moist and beefy red in color- see attached photo. Pt. with +BS. Intesivist called to bedside to assess. No new orders at this time. Attached photo sent to MD Webb and MD Armstrong via [employer]. RN report given to Yue. Pt. transported to [facility] by pt. transporter.
--- NOTE | 2023-11-27 18:24 | PC.NURSE ---
Mckeon removed this 11/26 in ICU. Pt due to void at 1800 Patient complaint of groin/pubic pain around 1700. Pt bladder scanned for 86mls. Medicated per Mar with morphine. Pt voided in urinal 150mls, clear yellow without difficulty.
[2023-11-28 02:06] LABS: Creatinine Urine 106.97 mg/dL; Total Protein Urine Random 15 mg/dL (<12)
[2023-11-28 03:49] VITALS: BP 141/68; PULSE 76; RESP 20; TEMP 37; O2SAT 94
[2023-11-28] MEDS: cefTRIAXone sodium 1 GM VIAL IVPUSH (06:11)
[2023-11-28 07:09] LABS: Hematocrit 26.4 % (42.0-52.0); Hemoglobin 8.8 g/dl (14.0-18.0); Mean Corpuscular HGB Conc 33.3 g/dl (31.0-36.0); Mean Corpuscular Hemoglobin 30.8 pg (27.0-33.0); Mean Corpuscular Volume 92.3 fL (80.0-98.0); Platelet Count 162 X10*3/uL (160-400); Red Blood Count 2.86 X10*6/uL (4.60-5.80); Red Cell Distribution Width 16.1 % (11.0-16.0); White Blood Count 8.3 X10*3/uL (4.8-10.8)
[2023-11-28 07:32] LABS: Anion Gap 17 (12-20); Blood Urea Nitrogen 63 mg/dL (9-16); Calcium 7.9 mg/dL (8.4-10.2); Carbon Dioxide 28 mmol/L (22-29); Chloride 102 mmol/L (96-108); Creatinine Clr Calc Pharmacy 14.2; Estimated Glomerular Filt Rate 14; Glucose Random 94 mg/dL (60-115); Magnesium 1.7 mg/dL (1.6-2.6); Phosphorus 2.8 mg/dL (2.7-4.5); Potassium 3.3 mmol/L (3.3-5.1); Sodium 144 mmol/L (135-145)
[2023-11-28 08:00] VITALS: BP 119/59; PULSE 72; RESP 18; TEMP 37.4; O2SAT 93
--- NOTE | 2023-11-28 08:45 | P.PNNP_ITS ---
Subjective Subjective Date of Service: 11/28/23 Interval history: Pt is a 78 y/o male with a medical hx of rectal carcinoma, afib, sick sinus syndrome (AV pacer), left shoulder replacement, osteoarthritis, HLD, HTN, obesity, EtOH dependence, renal carcinoma. recent CT shows left renal lesion with rec'd MRI follow up admit on 11/23 for weakness, confusion at home pt with low BP 89/40 on arrival, poor PO intake prior to admission, requiring vasopressor support in ICU (now off pressors) anuria, left renal lesion and potassium of 7.0 on admission of note he received bowel prep for a sigmoidoscopy a few days prior to arrival creatinine 11.73 on arrival (previous baseline 0.99), has been trending down steadily since creatinine 5.87 11/26, 11/27 is 4.20 he is making urine (1065 mL last 24 hours, has a monroe in place) potassium has normalized- serum cortisol level within normal limits on 11/25 he is alert and oriented to person, place time this a.m. he denies pain, shortness of breath he denies nausea, tremors, pruritus per chart review, has seen urology for monitoring of renal carcinoma, last visit Dec 2022. Physical Exam 2 Vital Signs: Vital Signs: Last Vital Signs Temp 99.3 F 11/28/23 08:00 Pulse 72 11/28/23 08:00 Resp 18 11/28/23 08:00 BP 119/59 L 11/28/23 08:00 Pulse Ox 93 11/28/23 08:00 O2 Del Method Room Air 11/28/23 08:00 O2 Flow Rate 2 11/27/23 05:00 BMI result Body Mass Index 25.2 Const: General: comfortable and no acute distress O rientation/consciousness: oriented to person, oriented to place and oriented to time Neck: Neck: Yes no JVD Resp: Effort & Inspection: able to speak in complete sentences A uscultation: rhonchi Cardio: Jugular venous distension: no JVD Rate: regular rate Rhythm: r egular rhythm GI: Palpation (GI): Soft to palpation Rectal Exam - Male: No tenderness : General: Yes no CVA tenderness Back/Spine/Pelvis: Back: no CVA tenderness Skin: Rashes: no rashes Neuro: General: oriented to person, oriented to place and oriented to time Extrem: General: Yes normal to inspection, No edema and No pedal edema Objective Data Labs 11/28/23 06:16 11/28/23 06:16 Labs: Laboratory Results - last 24 hr 11/25/23 11/28/23 11/28/23 04:42 00:55 06:16 WBC 8.3 RBC 2.86 L Hgb 8.8 L Hct 26.4 L MCV 92.3 MCH 30.8 MCHC 33.3 RDW 16.1 H Plt Count 162 MPV 11.0 Immature Gran % (Auto) Cancelled Neut % (Auto) Cancelled Lymph % (Auto) Cancelled Elliott % (Auto) Cancelled Eos % (Auto) Cancelled Baso % (Auto) Cancelled Lymph # (Auto) Cancelled Elliott # (Auto) Cancelled Eos # (Auto) Cancelled Baso # (Auto) Cancelled Abs Immat Gran (auto) Cancelled Absolute Neuts (auto) Cancelled Absolute Nucleated RBC 0.000 Nucleated RBC % (auto) 0.0 Neutrophils % (Manual) 78 H Band Neutrophils % 1 L Lymphocytes % (Manual) 8 L Atypical Lymphs % (Man) 1 Monocytes % (Manual) 4 Eosinophils % (Manual) 1 Basophils % (Manual) 1 Metamyelocytes % 2 Myelocytes % 4 Abs Neuts (Manual) 6.6 Lymphocytes # (Manual) 0.7 L Atyp Lymphs # (Manual) 0.1 Monocytes # (Manual) 0.3 Eosinophils # (Manual) 0.1 Basophils # (Manual) 0.1 Metamyelocytes # 0.2 Myelocytes # 0.3 Platelet Estimate NORMAL Plt Morphology Comment NORMAL RBC Morphology NOTED Hypochromasia 1+ (5-14) Spherocytes 1+ (0-2) Tear Drop Cells 1+ (0-2) Smear Path Review SEE NOTE Sodium 144 Potassium 3.3 Chloride 102 Carbon Dioxide 28 Anion Gap 17 BUN 63 H Creatinine 4.20 H* Estim Creat Clear Calc 14.2 Estimated GFR 14 Random Glucose 94 Calcium 7.9 L D Phosphorus 2.8 Magnesium 1.7 Urine Eosinophils % 4.0 U Random Total Protein 15 H Urine Creatinine 106.97 Microbiology Microbiology Results: Microbiology 11/25/23 19:48 Rectal Swab Gram Stain - Final 11/25/23 19:48 Rectal Swab Routine Culture - Final 11/25/23 06:36 Urine Catheterized - Monroe Catheter Urine Culture - Final Escherichia coli Klebsiella oxytoca 11/24/23 18:49 Blood - Venous Blood Culture - Preliminary No growth after 48 hours. 11/24/23 19:08 Blood - Venous Blood Culture - Preliminary No growth after 48 hours. Procedures Date of Service Date of Service: 11/28/23 Assessment & Plan Assessment and plan (1) Acute renal failure: Status: Acute (2) HTN (hypertension): Status: Acute (3) Metabolic acidosis: Status: Acute (4) Acute hyperkalemia: Status: Acute Plan Likely tubular injury with resultant AGN secondary to hypoperfusion from volume depletion in setting of ACEi use patient's renal function continues to significantly improve with current regimen no reason to suspect obstructive uropathy, AIN or GN recommend optimize volume status, replete electrolytes as needed no indication for dialysis at this time Discussed with Dr Abdi Time Spent With Patient Time: Total time managing care of this patient today ____ minutes. Progress Note: Quality Stroke Does the patient have a stroke diagnosis?: No
[2023-11-28 08:46] LABS: Atypical Lymph Absolute Manual 0.1 x10*3/uL; Atypical Lymphs Percent Manual 1 % (0-6); Band Neutrophils Percent 1 % (3-5); Basophils Abs Manual 0.1 X10*3/uL (0.0-0.2); Basophils Percent Manual 1 % (0-2); Eosinophils Absolute Manual 0.1 X10*3/uL (0.0-0.4); Eosinophils Percent Manual 1 % (0-4); Lymphocytes Absolute Manual 0.7 X10*3/uL (1.2-4.9); Lymphocytes Percent Manual 8 % (20-40); Metamyelocytes Absolute 0.2 X10*3/uL; Metamyelocytes Percent 2 %; Monocytes Absolute Manual 0.3 X10*3/uL (0.1-1.2); Monocytes Percent Manual 4 % (2-11); Myelocytes Absolute 0.3 X10*/uL; Myelocytes Percent 4 %; Neutrophils Absolute Manual 6.6 X10*3/uL (2.0-8.3); Neutrophils Percent Manual 78 % (45-73)
[2023-11-28] MEDS: Amiodarone HCL 200 MG TABLET PO (08:47)
[2023-11-28] MEDS: 0.9 % Sodium Chloride 1,000 ML 75 ML IVCONT ×2 (08:47→22:07)
[2023-11-28 08:48] LABS: Hypochromasia 1+ (5-14) /OIF; Platelet Estimate NORMAL (NORMAL); Platelet Morphology Comment NORMAL; RBC Morphology NOTED; Spherocytes 1+ (0-2) /OIF; Tear Drop Cells 1+ (0-2) /OIF
[2023-11-28 09:12] LABS: EOS Counted 4 CELLS; EOS QC POS YES; EOS Stain Quality OK YES; WBC, Counted 100 CELLS
[2023-11-28 09:53] VITALS: PULSE 152
[2023-11-28] MEDS: Morphine Sulfate 2 MG/ML CARTRIDGE IVPUSH ×2 (11:45→20:15)
[2023-11-28 12:00] VITALS: BP 128/45; PULSE 77; RESP 17; TEMP 36.6; O2SAT 94
--- NOTE | 2023-11-28 12:54 | P.PNIM_ITS ---
Subjective Subjective Date of Service: 11/28/23 Interval History: seen and evaluated this morning denies any pain or fever less diarrhea, tolerating diet no other overngiht events Review of Systems Review of Systems: Yes all other systems are reviewed and are negative Physical Exam 2 Vital Signs: Vital Signs: Last Vital Signs Temp 97.8 F 11/28/23 12:00 Pulse 77 11/28/23 12:00 Resp 17 11/28/23 12:00 BP 128/45 L 11/28/23 12:00 Pulse Ox 94 11/28/23 12:00 O2 Del Method Room Air 11/28/23 12:00 O2 Flow Rate 2 11/27/23 05:00 BMI result Body Mass Index 25.2 Const: Other: Constitutional : Awake, interactive, not in distress Neck : Normal inspection, Supple Cardiovascular : RRR, no JVP, no lower extremity edema Respiratory : good bilateral air entry, no crackles, wheezes or rhonchi Gastrointestinal: soft, lax, Normal bowel sounds, Non tender, Ileostomy functioning well. Skin : Warm, Dry Neurological : Alert & oriented x3, No focal deficit Objective Data Active Medications Amiodarone HCl (Amiodarone Hcl 200 Mg Tablet) 200 mg PO DAILY [facility] Last Admin: 11/28/23 08:47 Dose: 200 mg Documented By: TRELL Ceftriaxone Sodium (Ceftriaxone Sodium 1 Gm Vial) 1 gm IVPUSH Q24H [facility] Last Admin: 11/28/23 06:11 Dose: 1 gm Documented By: ARASH Sodium Chloride (Ns) 1,000 mls @ 75 mls/hr IVCONT .[id number] [facility] Last Admin: 11/28/23 08:47 Dose: 75 mls/hr Documented By: TRELL Morphine Sulfate (Morphine Sulfate 2 Mg/Ml Cartridge) 2 mg IVPUSH Q4H PRN; Protocol PRN Reason: severe pain Last Admin: 11/28/23 11:45 Dose: 2 mg Documented By: TRELL Ondansetron HCl (Ondansetron Hcl 4 Mg/2 Ml Vial) 4 mg IVPUSH Q8H PRN PRN Reason: Nausea and Vomiting Last Admin: 11/25/23 05:23 Dose: 4 mg Documented By: MYLA Labs 11/28/23 06:16 11/28/23 06:16 Labs: Laboratory Results - last 24 hr 11/28/23 11/28/23 00:55 06:16 MCV 92.3 MCH 30.8 MCHC 33.3 RDW 16.1 H Plt Count 162 MPV 11.0 Immature Gran % (Auto) Cancelled Neut % (Auto) Cancelled Lymph % (Auto) Cancelled Dickey % (Auto) Cancelled Eos % (Auto) Cancelled Baso % (Auto) Cancelled Lymph # (Auto) Cancelled Dickey # (Auto) Cancelled Eos # (Auto) Cancelled Baso # (Auto) Cancelled Abs Immat Gran (auto) Cancelled Absolute Neuts (auto) Cancelled Absolute Nucleated RBC 0.000 Nucleated RBC % (auto) 0.0 Neutrophils % (Manual) 78 H Band Neutrophils % 1 L Lymphocytes % (Manual) 8 L Atypical Lymphs % (Man) 1 Monocytes % (Manual) 4 Eosinophils % (Manual) 1 Basophils % (Manual) 1 Metamyelocytes % 2 Myelocytes % 4 Abs Neuts (Manual) 6.6 Lymphocytes # (Manual) 0.7 L Atyp Lymphs # (Manual) 0.1 Monocytes # (Manual) 0.3 Eosinophils # (Manual) 0.1 Basophils # (Manual) 0.1 Metamyelocytes # 0.2 Myelocytes # 0.3 Platelet Estimate NORMAL Plt Morphology Comment NORMAL RBC Morphology NOTED Hypochromasia 1+ (5-14) Spherocytes 1+ (0-2) Tear Drop Cells 1+ (0-2) Anion Gap 17 Estim Creat Clear Calc 14.2 Estimated GFR 14 Random Glucose 94 Calcium 7.9 L D Phosphorus 2.8 Magnesium 1.7 Urine Eosinophils % 4.0 U Random Total Protein 15 H Urine Creatinine 106.97 Microbiology Microbiology Results: Microbiology 11/25/23 19:48 Gram Stain - Final Rectal Swab Routine Culture - Final 11/25/23 06:36 Urine Culture - Final Urine Catheterized - Mckeon Catheter Escherichia coli Klebsiella oxytoca Assessment and Plan (1) Diarrhea: Status: Acute (2) Acute hyperkalemia: Status: Acute (3) Acute renal failure: Status: Acute (4) Acute on chronic anemia: Status: Acute Plan A 78 year old male with hypertension, hyperlipidemia, c/b sick sinus syndrome s/p pacemaker, and rectal carcinoma s/p colectomy, ileostomy, initially presenting to emergency department on 11/23 w/ non-specific symptoms, found to be hypotensive and w/ acute renal failure, thought to be d/t dehydration Acute toxic-metabolic encephalpathy, improving back to baseline avoid sedative meds check PT eval ANIL 2/2 ATN from hypotension and meds Continue IVF monitor I\O Nephrology following follow BMP Hx rectal carcinoma s/p colectomy, ileostomy EPEC Diarrhea on Ceftriaxone monitor ileostomy output acute hyperkalemia resolved Acute on chronic anemia, Stable now around 8, likely hemodilution CT A/P performed suggestive of hematoma; Gen Surgery evaluated the patient; likely chronic changes as seen in CT before , no intervention now monitor H&H UTI pending cultures on Ceftriaxone Hx Afib Hold Eliquis and Cardizem restart Metoprolol XL DVT PPx SCDs Tje patient will need overnight hospital stay pending final cultures and PT evaluation Quality Stroke Does the patient have a stroke diagnosis?: No VTE Prior VTE?: No VTE Risk Level:: Medical - moderate - high VTE Device Contraindication: N/A - Device Ordered VTE Drug Contraindication: N/A - Med Ordered
--- NOTE | 2023-11-28 13:07 | MHC.CM.PN ---
Addendum entered by Kelsey Cox RN 11/28/23 13:43: PT DECLINING STR, FACE SHEET/CLINICALS [facility] INSTEAD OF [facility], PT PREFERS [facility] HE HAS USED THEIR SERVICE IN THE PAST. Original Note: EMR REVIEWED, PT STEPDOWN FROM ICU, P.T. RECOMMENDING STR, BROAD SNF REFERRAL PLACED AND CM TO REVIEW OFFERS W/PT AND/OR FAMILY ONCE CM RECEIVES OFFERS, CM WILL CONT TO FOLLOW DC NEEDS.
[2023-11-28] MEDS: Metoprolol Tartrate 50 MG TABLET PO ×2 (13:32→20:14)
[2023-11-28 15:31] VITALS: BP 111/61; PULSE 64; RESP 15; TEMP 37.1; O2SAT 94
[2023-11-28] MEDS: Omeprazole 20 MG CAPSULE.DR PO (15:54)
[2023-11-28 19:34] VITALS: BP 138/63; PULSE 119; RESP 17; TEMP 36.8; O2SAT 93
[2023-11-28] MEDS: Ferrous Sulfate 324 MG TABLET.DR PO (20:14)
[2023-11-28] MEDS: Ascorbic Acid 250 MG TABLET PO (20:14)
[2023-11-29] VITALS: BP 142/60; PULSE 70; RESP 20; TEMP 37.4; O2SAT 93
[2023-11-29 04:00] VITALS: BP 133/62; PULSE 70; RESP 20; TEMP 37.2; O2SAT 94
[2023-11-29] MEDS: Omeprazole 20 MG CAPSULE.DR PO (06:11)
[2023-11-29] MEDS: cefTRIAXone sodium 1 GM VIAL IVPUSH (06:14)
[2023-11-29 06:27] LABS: Mean Corpuscular Volume 93.6 fL (80.0-98.0); Mean Platelet Volume 10.1 fL (9.4-12.4); Platelet Count 152 X10*3/uL (160-400); Red Blood Count 2.67 X10*6/uL (4.60-5.80); Red Cell Distribution Width 16.3 % (11.0-16.0); White Blood Count 8.5 X10*3/uL (4.8-10.8)
[2023-11-29 06:46] LABS: Anion Gap 14 (12-20); Blood Urea Nitrogen 49 mg/dL (9-16); Calcium 7.7 mg/dL (8.4-10.2); Carbon Dioxide 26 mmol/L (22-29); Chloride 105 mmol/L (96-108); Estimated Glomerular Filt Rate 19; Glucose Random 86 mg/dL (60-115); Magnesium 1.6 mg/dL (1.6-2.6); Phosphorus 1.8 mg/dL (2.7-4.5); Potassium 3.3 mmol/L (3.3-5.1); Sodium 142 mmol/L (135-145)
[2023-11-29 07:37] LABS: Atypical Lymph Absolute Manual 0.2 x10*3/uL; Atypical Lymphs Percent Manual 2 % (0-6); Band Neutrophils Percent 2 % (3-5); Eosinophils Absolute Manual 0.2 X10*3/uL (0.0-0.4); Eosinophils Percent Manual 2 % (0-4); Metamyelocytes Absolute 0.1 X10*3/uL; Metamyelocytes Percent 1 %; Neutrophils Absolute Manual 6.5 X10*3/uL (2.0-8.3); Neutrophils Percent Manual 75 % (45-73)
[2023-11-29 07:38] LABS: Lymphocytes Absolute Manual 0.9 X10*3/uL (1.2-4.9); Lymphocytes Percent Manual 10 % (20-40); Monocytes Absolute Manual 0.7 X10*3/uL (0.1-1.2); Monocytes Percent Manual 8 % (2-11)
[2023-11-29 07:39] LABS: Macrocytosis 1+ (5-14) /OIF; RBC Morphology NOTED
[2023-11-29 07:40] LABS: Hypochromasia 1+ (5-14) /OIF
[2023-11-29 07:42] LABS: Polychromasia 1+ (0-2) /OIF
[2023-11-29 07:43] LABS: Platelet Estimate SLIGHTLY DECREASED (NORMAL); Platelet Morphology Comment NORMAL
[2023-11-29 07:47] VITALS: BP 125/63; PULSE 76; RESP 18; TEMP 36.9; O2SAT 96
[2023-11-29] MEDS: Amiodarone HCL 200 MG TABLET PO (08:03)
[2023-11-29] MEDS: Ascorbic Acid 250 MG TABLET PO (08:03)
[2023-11-29] MEDS: Metoprolol Tartrate 50 MG TABLET PO (08:03)
[2023-11-29] MEDS: Ferrous Sulfate 324 MG TABLET.DR PO (08:03)
[2023-11-29 09:39] LABS: Complement C3 97 mg/dL (82-185)
[2023-11-29] MEDS: 0.9 % Sodium Chloride 1,000 ML 75 ML IVCONT (10:49)
[2023-11-29 11:12] VITALS: BP 134/47; PULSE 60; RESP 17; TEMP 36.8; O2SAT 94
--- NOTE | 2023-11-29 12:46 | P.PNNP_ITS ---
Subjective Subjective Date of Service: 11/29/23 Interval history: seen and evaluated this morning denies any pain or fever less diarrhea, tolerating diet no other overngiht events Physical Exam 2 Vital Signs: Vital Signs: Last Vital Signs Temp 98.3 F 11/29/23 11:12 Pulse 60 11/29/23 11:12 Resp 17 11/29/23 11:12 BP 134/47 L 11/29/23 11:12 Pulse Ox 94 11/29/23 11:12 O2 Del Method Room Air 11/29/23 11:12 O2 Flow Rate 2 11/27/23 05:00 BMI result Body Mass Index 25.2 cvs: s1s2 RS; cta Abd; soft Objective Data Labs 11/29/23 06:02 11/29/23 06:02 Labs: Laboratory Results - last 24 hr 11/28/23 11/29/23 11/29/23 06:16 06:02 06:02 WBC 8.5 Cancelled RBC 2.67 L Hgb Hct MCV MCH MCHC RDW Plt Count MPV Immature Gran % (Auto) Neut % (Auto) Lymph % (Auto) [place] % (Auto) Eos % (Auto) Baso % (Auto) Lymph # (Auto) [place] # (Auto) Eos # (Auto) Baso # (Auto) Abs Immat Gran (auto) Absolute Neuts (auto) Absolute Nucleated RBC Nucleated RBC % (auto) Neutrophils % (Manual) Band Neutrophils % Lymphocytes % (Manual) Atypical Lymphs % (Man) Monocytes % (Manual) Eosinophils % (Manual) Metamyelocytes % Abs Neuts (Manual) Lymphocytes # (Manual) Atyp Lymphs # (Manual) Monocytes # (Manual) Eosinophils # (Manual) Metamyelocytes # Platelet Estimate Plt Morphology Comment RBC Morphology Polychromasia Hypochromasia Macrocytosis Sodium Potassium Chloride Carbon Dioxide Anion Gap BUN Creatinine Estim Creat Clear Calc Estimated GFR Random Glucose Calcium Phosphorus Magnesium Complement C3 97 Complement C4 27 11/29/23 11/29/23 11/29/23 06:02 06:02 06:02 WBC RBC Cancelled Hgb 8.0 L Cancelled Hct 25.0 L Cancelled MCV 93.6 MCH MCHC RDW Plt Count MPV Immature Gran % (Auto) Neut % (Auto) Lymph % (Auto) [place] % (Auto) Eos % (Auto) Baso % (Auto) Lymph # (Auto) [place] # (Auto) Eos # (Auto) Baso # (Auto) Abs Immat Gran (auto) Absolute Neuts (auto) Absolute Nucleated RBC Nucleated RBC % (auto) Neutrophils % (Manual) Band Neutrophils % Lymphocytes % (Manual) Atypical Lymphs % (Man) Monocytes % (Manual) Eosinophils % (Manual) Metamyelocytes % Abs Neuts (Manual) Lymphocytes # (Manual) Atyp Lymphs # (Manual) Monocytes # (Manual) Eosinophils # (Manual) Metamyelocytes # Platelet Estimate Plt Morphology Comment RBC Morphology Polychromasia Hypochromasia Macrocytosis Sodium Potassium Chloride Carbon Dioxide Anion Gap BUN Creatinine Estim Creat Clear Calc Estimated GFR Random Glucose Calcium Phosphorus Magnesium Complement C3 Complement C4 11/29/23 11/29/23 11/29/23 06:02 06:02 06:02 WBC RBC Hgb Hct MCV Cancelled MCH 30.0 Cancelled MCHC 32.0 Cancelled RDW 16.3 H Plt Count MPV Immature Gran % (Auto) Neut % (Auto) Lymph % (Auto) [place] % (Auto) Eos % (Auto) Baso % (Auto) Lymph # (Auto) [place] # (Auto) Eos # (Auto) Baso # (Auto) Abs Immat Gran (auto) Absolute Neuts (auto) Absolute Nucleated RBC Nucleated RBC % (auto) Neutrophils % (Manual) Band Neutrophils % Lymphocytes % (Manual) Atypical Lymphs % (Man) Monocytes % (Manual) Eosinophils % (Manual) Metamyelocytes % Abs Neuts (Manual) Lymphocytes # (Manual) Atyp Lymphs # (Manual) Monocytes # (Manual) Eosinophils # (Manual) Metamyelocytes # Platelet Estimate Plt Morphology Comment RBC Morphology Polychromasia Hypochromasia Macrocytosis Sodium Potassium Chloride Carbon Dioxide Anion Gap BUN Creatinine Estim Creat Clear Calc Estimated GFR Random Glucose Calcium Phosphorus Magnesium Complement C3 Complement C4 11/29/23 11/29/23 11/29/23 06:02 06:02 06:02 WBC RBC Hgb Hct MCV MCH MCHC RDW Cancelled Plt Count 152 L Cancelled MPV 10.1 Cancelled Immature Gran % (Auto) Cancelled Neut % (Auto) Cancelled Lymph % (Auto) Cancelled [place] % (Auto) Cancelled Eos % (Auto) Cancelled Baso % (Auto) Cancelled Lymph # (Auto) Cancelled [place] # (Auto) Cancelled Eos # (Auto) Cancelled Baso # (Auto) Cancelled Abs Immat Gran (auto) Cancelled Absolute Neuts (auto) Cancelled Absolute Nucleated RBC 0.000 Nucleated RBC % (auto) Neutrophils % (Manual) Band Neutrophils % Lymphocytes % (Manual) Atypical Lymphs % (Man) Monocytes % (Manual) Eosinophils % (Manual) Metamyelocytes % Abs Neuts (Manual) Lymphocytes # (Manual) Atyp Lymphs # (Manual) Monocytes # (Manual) Eosinophils # (Manual) Metamyelocytes # Platelet Estimate Plt Morphology Comment RBC Morphology Polychromasia Hypochromasia Macrocytosis Sodium Potassium Chloride Carbon Dioxide Anion Gap BUN Creatinine Estim Creat Clear Calc Estimated GFR Random Glucose Calcium Phosphorus Magnesium Complement C3 Complement C4 11/29/23 11/29/23 11/29/23 06:02 06:02 06:02 WBC RBC Hgb Hct MCV MCH MCHC RDW Plt Count MPV Immature Gran % (Auto) Neut % (Auto) Lymph % (Auto) [place] % (Auto) Eos % (Auto) Baso % (Auto) Lymph # (Auto) [place] # (Auto) Eos # (Auto) Baso # (Auto) Abs Immat Gran (auto) Absolute Neuts (auto) Absolute Nucleated RBC Cancelled Nucleated RBC % (auto) 0.0 Cancelled Neutrophils % (Manual) 75 H Band Neutrophils % 2 L Lymphocytes % (Manual) 10 L Atypical Lymphs % (Man) 2 Monocytes % (Manual) 8 Eosinophils % (Manual) 2 Metamyelocytes % 1 Abs Neuts (Manual) 6.5 Lymphocytes # (Manual) 0.9 L Atyp Lymphs # (Manual) 0.2 Monocytes # (Manual) 0.7 Eosinophils # (Manual) 0.2 Metamyelocytes # 0.1 Platelet Estimate SLIGHTLY DECREASED Plt Morphology Comment NORMAL RBC Morphology NOTED Polychromasia 1+ (0-2) Hypochromasia 1+ (5-14) Macrocytosis 1+ (5-14) Sodium 142 Cancelled Potassium 3.3 Chloride Carbon Dioxide Anion Gap BUN Creatinine Estim Creat Clear Calc Estimated GFR Random Glucose Calcium Phosphorus Magnesium Complement C3 Complement C4 11/29/23 11/29/23 11/29/23 06:02 06:02 06:02 WBC RBC Hgb Hct MCV MCH MCHC RDW Plt Count MPV Immature Gran % (Auto) Neut % (Auto) Lymph % (Auto) [place] % (Auto) Eos % (Auto) Baso % (Auto) Lymph # (Auto) [place] # (Auto) Eos # (Auto) Baso # (Auto) Abs Immat Gran (auto) Absolute Neuts (auto) Absolute Nucleated RBC Nucleated RBC % (auto) Neutrophils % (Manual) Band Neutrophils % Lymphocytes % (Manual) Atypical Lymphs % (Man) Monocytes % (Manual) Eosinophils % (Manual) Metamyelocytes % Abs Neuts (Manual) Lymphocytes # (Manual) Atyp Lymphs # (Manual) Monocytes # (Manual) Eosinophils # (Manual) Metamyelocytes # Platelet Estimate Plt Morphology Comment RBC Morphology Polychromasia Hypochromasia Macrocytosis Sodium Potassium Cancelled Chloride 105 Cancelled Carbon Dioxide 26 Cancelled Anion Gap 14 BUN Creatinine Estim Creat Clear Calc Estimated GFR Random Glucose Calcium Phosphorus Magnesium Complement C3 Complement C4 11/29/23 11/29/23 11/29/23 06:02 06:02 06:02 WBC RBC Hgb Hct MCV MCH MCHC RDW Plt Count MPV Immature Gran % (Auto) Neut % (Auto) Lymph % (Auto) [place] % (Auto) Eos % (Auto) Baso % (Auto) Lymph # (Auto) [place] # (Auto) Eos # (Auto) Baso # (Auto) Abs Immat Gran (auto) Absolute Neuts (auto) Absolute Nucleated RBC Nucleated RBC % (auto) Neutrophils % (Manual) Band Neutrophils % Lymphocytes % (Manual) Atypical Lymphs % (Man) Monocytes % (Manual) Eosinophils % (Manual) Metamyelocytes % Abs Neuts (Manual) Lymphocytes # (Manual) Atyp Lymphs # (Manual) Monocytes # (Manual) Eosinophils # (Manual) Metamyelocytes # Platelet Estimate Plt Morphology Comment RBC Morphology Polychromasia Hypochromasia Macrocytosis Sodium Potassium Chloride Carbon Dioxide Anion Gap Cancelled BUN 49 H Cancelled Creatinine 3.14 H Cancelled Estim Creat Clear Calc 19.0 Estimated GFR Random Glucose Calcium Phosphorus Magnesium Complement C3 Complement C4 11/29/23 11/29/23 11/29/23 06:02 06:02 06:02 WBC RBC Hgb Hct MCV MCH MCHC RDW Plt Count MPV Immature Gran % (Auto) Neut % (Auto) Lymph % (Auto) [place] % (Auto) Eos % (Auto) Baso % (Auto) Lymph # (Auto) [place] # (Auto) Eos # (Auto) Baso # (Auto) Abs Immat Gran (auto) Absolute Neuts (auto) Absolute Nucleated RBC Nucleated RBC % (auto) Neutrophils % (Manual) Band Neutrophils % Lymphocytes % (Manual) Atypical Lymphs % (Man) Monocytes % (Manual) Eosinophils % (Manual) Metamyelocytes % Abs Neuts (Manual) Lymphocytes # (Manual) Atyp Lymphs # (Manual) Monocytes # (Manual) Eosinophils # (Manual) Metamyelocytes # Platelet Estimate Plt Morphology Comment RBC Morphology Polychromasia Hypochromasia Macrocytosis Sodium Potassium Chloride Carbon Dioxide Anion Gap BUN Creatinine Estim Creat Clear Calc Cancelled Estimated GFR 19 Cancelled Random Glucose 86 Cancelled Calcium 7.7 L Phosphorus Magnesium Complement C3 Complement C4 11/29/23 06:02 WBC RBC Hgb Hct MCV MCH MCHC RDW Plt Count MPV Immature Gran % (Auto) Neut % (Auto) Lymph % (Auto) [place] % (Auto) Eos % (Auto) Baso % (Auto) Lymph # (Auto) [place] # (Auto) Eos # (Auto) Baso # (Auto) Abs Immat Gran (auto) Absolute Neuts (auto) Absolute Nucleated RBC Nucleated RBC % (auto) Neutrophils % (Manual) Band Neutrophils % Lymphocytes % (Manual) Atypical Lymphs % (Man) Monocytes % (Manual) Eosinophils % (Manual) Metamyelocytes % Abs Neuts (Manual) Lymphocytes # (Manual) Atyp Lymphs # (Manual) Monocytes # (Manual) Eosinophils # (Manual) Metamyelocytes # Platelet Estimate Plt Morphology Comment RBC Morphology Polychromasia Hypochromasia Macrocytosis Sodium Potassium Chloride Carbon Dioxide Anion Gap BUN Creatinine Estim Creat Clear Calc Estimated GFR Random Glucose Calcium Cancelled Phosphorus 1.8 L Magnesium 1.6 Complement C3 Complement C4 Microbiology Microbiology Results: Microbiology 11/25/23 19:48 Rectal Swab Gram Stain - Final 11/25/23 19:48 Rectal Swab Routine Culture - Final 11/25/23 06:36 Urine Catheterized - Mckeon Catheter Urine Culture - Final Escherichia coli Klebsiella oxytoca 11/24/23 18:49 Blood - Venous Blood Culture - Preliminary No growth after 48 hours. 11/24/23 19:08 Blood - Venous Blood Culture - Preliminary No growth after 48 hours. Procedures Date of Service Date of Service: 11/29/23 Assessment & Plan Assessment and plan (1) Acute renal failure: Status: Acute Plan 6-/m with pmh of etoh abuse, afib on AC, ckd,htn, cognitive impairment, obese, OA, dyslipidemia, rectal cancer on oral chemotherapy and radiation followed by Dr. Gaxiola He has CKD 3 at baseline cr ~ 1.3 Severe SOREN Hyperkalemia CKD 3a Soren in the setting of poor po itnake, ischemic atn leding to hyperkalemia now improving - cr 3.14 today plan to discharge today due to catastrophic soren, will order expanded work up including autoimmune, AIN and Mgrs - results pending at this time, except for normal complements moitor uop monitor ostomy output - goal < 1 liter / day avoid nephrotoxins no urgent indications for dialysis today expect slow recovery from soren - will follow up in office, rpt chem 7 in 1 week will continue to follow with ream Time Spent With Patient Time: Total time managing care of this patient today ____ minutes. Progress Note: Quality Stroke Does the patient have a stroke diagnosis?: No
--- NOTE | 2023-11-29 13:07 | P.DS_ITS ---
DS: Providers Provider Date of Service: 11/29/23 Date of admission: 11/24/23 23:25 Date of discharge: 11/29/23 Primary care physician: Joao Duncan Consults: 11/25/23 07:00 Consult to Nephrology Routine Consulting Provider: [facility] Reason for consultation: severe ANIL Has provider been notified: No 11/25/23 14:08 Consult to General Surgery Routine Consulting Provider: [facility] Reason for consultation: blood loss anemia and hematoma noted in CT pelvis DS: Diagnosis Discharge Diagnosis (1) Diarrhea: Status: Acute (2) Acute hyperkalemia: Status: Acute (3) Acute renal failure: Status: Acute (4) Acute on chronic anemia: Status: Acute (5) Uremia: Status: Acute (6) Metabolic acidosis: Status: Acute (7) UTI (urinary tract infection): Status: Acute (8) Enteropathogenic Escherichia coli infection: Status: Acute (9) Atrial fibrillation with rapid ventricular response: Status: Acute DS: Summary Hospital Course Hospital Course: Admission note HPI 78-year-old patient with underlying history of rectal carcinoma, whose history is being obtained from patient's records as the patient is confused is not able to provide 1 at this point.? Reportedly the patient had neoadjuvant treatment and low anterior resection with diverting loop ileostomy on 09/24/2023 at [facility]. ?This past November 19 he had a outpatient flexible sigmoidoscopy under MAC anesthesia at [facility] which was reported to be without significant findings.? It is reported the patient has had weakness and chills but no other specific discomfort, family members felt that the patient was not doing well and they called 911. ?Additionally the patient history includes atrial fibrillation post AV pacer, left shoulder replacement, osteoarthritis, hyperlipidemia, obesity, hypertension, ETOH dependence, hypert ension, renal carcinoma , UTI. Workup in the emergency room reveals a hypotensive, tachycardic patient with white count of 13.2, H and H of 9.1 and 27.7, platelets 273.? Sodium 130, potassium 7.0 which after treatment came down to 5.1, chloride 112, BUN 120, creatinine 11.73, repeat creatinine of 10.41 after IV fluids.? LFTs within normal limits, troponin 8.6.? CRP 5.79.? Albumin 3.5. ?Venous blood gas currently reveals pH of 7.15, pCO2 18, PO2 66, HC03 6.? Base excess -20. ? Chest x-ray showed mild cardiomegaly without any acute process. ?CT abdomen and pelvis is reported as status post colectomy with ileostomy on the right and groan collection in the mesentery most likely unresolved hematoma versus seroma.? Cholelithiasis without cholecystitis.? Indeterminate lesion in the left kidney.? Correlation with the MRI requested.? 0.3 cm stone in the urinary bladder with wall thickening or bladder. Patient was treated with IV fluids, vancomycin and Zosyn, calcium, high dose albuterol, insulin, D50 with good improvement of his hyperkalemia and minimal improvement on his renal function.? Pt will be admitted to the ICU for further care. Hospital course # Acute toxic-metabolic encephalpathy secondary to renal failure and uremia. improved back to baseline and was able to particpate with PT who recommended STR but he prefers going home with [facility]. # ANIL secondary to ATN from hypotension and home medications complicated with acute hyperkalemia. Treated with IV fluids as Creatinine improved from 11.7 to 3.1 as he was followed by nephrology. Lisinopril and Cardizem held on discharge as his blood pressure runs soft. Will follow with Nephrology as outpatient and repeated BMP next week. # Hx rectal carcinoma s/p colectomy, ileostomy EPEC Diarrhea developed and treated with IV Ceftriaxone with good response. To be discharged on Ceftin. # Acute on chronic anemia, Noted as he received IV fluids for kidney injury. Stabled around [address] A/P performed suggestive of hematoma; Gen Surgery evaluated the patient; likely chronic changes as seen in CT before , no intervention recommended. To repeat CBC as outpatient. resume Eliquis upon discharge. # E.Coli UTI Treated with Ceftriaxone. To be discharged on Ceftin. # Afib w RvR. Rate controlled now. Held Eliquis and Cardizem while inpatient. To restart Metoprolol XL and Eliquis upon discharge and keep Cardizem on hold as BP runs soft. Discharge plan Continue Ceftin for 5 more days Hold Diltiazem and Lisinopril To repeat Kidney function next week Monitor blood pressure at home Time Attestation Discharge Coordination Time (in mins): 46 Quality: Safe Use of Opioids Does Pt have an Active Cancer Diagnosis on the Problem List?: No Quality: Stroke Does the patient have a stroke diagnosis?: No Physical Exam Vital Signs: Vital Signs: Last Vital Signs Temp 98.3 F 11/29/23 11:12 Pulse 60 11/29/23 11:12 Resp 17 11/29/23 11:12 BP 134/47 L 11/29/23 11:12 Pulse Ox 94 11/29/23 11:12 O2 Del Method Room Air 11/29/23 11:12 O2 Flow Rate 2 11/27/23 05:00 BMI result Body Mass Index 25.2 Const: Other: Constitutional : Awake, interactive, not in distress Neck : Normal inspection, Supple Cardiovascular : irregular irregular, no JVP, no lower extremity edema Respiratory : good bilateral air entry, no crackles, wheezes or rhonchi Gastrointestinal: soft, lax, Normal bowel sounds, Non tender, Ileostomy functioning well. Skin : Warm, Dry Neurological : Alert & oriented x3, No focal deficit DS: Data Data Completed and Pending Completed studies during hospitalization [Text1]: Procedures Control Bleeding in Gastrointestinal Tract, Via Natural or Artificial Opening Endoscopic (11/09/22) Destruction of Stomach, Pylorus, Via Natural or Artificial Opening Endoscopic (06/18/22) Excision of Ascending Colon, Via Natural or Artificial Opening Endoscopic, Diagnostic (06/18/22) Excision of Descending Colon, Via Natural or Artificial Opening Endoscopic, Diagnostic (06/18/22) Excision of Duodenum, Via Natural or Artificial Opening Endoscopic, Diagnostic (06/18/22) Excision of Rectum, Via Natural or Artificial Opening Endoscopic, Diagnostic (06/18/22) Excision of Stomach, Pylorus, Via Natural or Artificial Opening Endoscopic, Diagnostic (06/18/22) Insertion of Pacemaker Lead into Right Atrium, Percutaneous Approach (06/18/22) Insertion of Pacemaker Lead into Right Ventricle, Percutaneous Approach (06/18/22) Insertion of Pacemaker, Dual Chamber into Chest Subcutaneous Tissue and Fascia, Open Approach (06/18/22) Introduction of Mineral-based Topical Hemostatic Agent into Lower GI, Via Natural or Artificial Opening Endoscopic, [employer] 6 (11/09/22) Occlusion of Inferior Mesenteric Artery with Intraluminal Device, Percutaneous Approach (11/09/22) Transfusion of Nonautologous Red Blood Cells into Peripheral Vein, Percutaneous Approach (11/09/22) Labs on day of discharge: Laboratory Results - last 24 hr 11/28/23 11/29/23 11/29/23 06:16 06:02 06:02 WBC 8.5 Cancelled RBC 2.67 L Hgb Hct MCV MCH MCHC RDW Plt Count MPV Immature Gran % (Auto) Neut % (Auto) Lymph % (Auto) Mor[place] % (Auto) Eos % (Auto) Baso % (Auto) Lymph # (Auto) [place] # (Auto) Eos # (Auto) Baso # (Auto) Abs Immat Gran (auto) Absolute Neuts (auto) Absolute Nucleated RBC Nucleated RBC % (auto) Neutrophils % (Manual) Band Neutrophils % Lymphocytes % (Manual) Atypical Lymphs % (Man) Monocytes % (Manual) Eosinophils % (Manual) Metamyelocytes % Abs Neuts (Manual) Lymphocytes # (Manual) Atyp Lymphs # (Manual) Monocytes # (Manual) Eosinophils # (Manual) Metamyelocytes # Platelet Estimate Plt Morphology Comment RBC Morphology Polychromasia Hypochromasia Macrocytosis Sodium Potassium Chloride Carbon Dioxide Anion Gap BUN Creatinine Estim Creat Clear Calc Estimated GFR Random Glucose Calcium Phosphorus Magnesium Complement C3 97 Complement C4 27 11/29/23 11/29/23 11/29/23 06:02 06:02 06:02 WBC RBC Cancelled Hgb 8.0 L Cancelled Hct 25.0 L Cancelled MCV 93.6 MCH MCHC RDW Plt Count MPV Immature Gran % (Auto) Neut % (Auto) Lymph % (Auto) [place] % (Auto) Eos % (Auto) Baso % (Auto) Lymph # (Auto) [place] # (Auto) Eos # (Auto) Baso # (Auto) Abs Immat Gran (auto) Absolute Neuts (auto) Absolute Nucleated RBC Nucleated RBC % (auto) Neutrophils % (Manual) Band Neutrophils % Lymphocytes % (Manual) Atypical Lymphs % (Man) Monocytes % (Manual) Eosinophils % (Manual) Metamyelocytes % Abs Neuts (Manual) Lymphocytes # (Manual) Atyp Lymphs # (Manual) Monocytes # (Manual) Eosinophils # (Manual) Metamyelocytes # Platelet Estimate Plt Morphology Comment RBC Morphology Polychromasia Hypochromasia Macrocytosis Sodium Potassium Chloride Carbon Dioxide Anion Gap BUN Creatinine Estim Creat Clear Calc Estimated GFR Random Glucose Calcium Phosphorus Magnesium Complement C3 Complement C4 11/29/23 11/29/23 11/29/23 06:02 06:02 06:02 WBC RBC Hgb Hct MCV Cancelled MCH 30.0 Cancelled MCHC 32.0 Cancelled RDW 16.3 H Plt Count MPV Immature Gran % (Auto) Neut % (Auto) Lymph % (Auto) [place] % (Auto) Eos % (Auto) Baso % (Auto) Lymph # (Auto) [place] # (Auto) Eos # (Auto) Baso # (Auto) Abs Immat Gran (auto) Absolute Neuts (auto) Absolute Nucleated RBC Nucleated RBC % (auto) Neutrophils % (Manual) Band Neutrophils % Lymphocytes % (Manual) Atypical Lymphs % (Man) Monocytes % (Manual) Eosinophils % (Manual) Metamyelocytes % Abs Neuts (Manual) Lymphocytes # (Manual) Atyp Lymphs # (Manual) Monocytes # (Manual) Eosinophils # (Manual) Metamyelocytes # Platelet Estimate Plt Morphology Comment RBC Morphology Polychromasia Hypochromasia Macrocytosis Sodium Potassium Chloride Carbon Dioxide Anion Gap BUN Creatinine Estim Creat Clear Calc Estimated GFR Random Glucose Calcium Phosphorus Magnesium Complement C3 Complement C4 11/29/23 11/29/23 11/29/23 06:02 06:02 06:02 WBC RBC Hgb Hct MCV MCH MCHC RDW Cancelled Plt Count 152 L Cancelled MPV 10.1 Cancelled Immature Gran % (Auto) Cancelled Neut % (Auto) Cancelled Lymph % (Auto) Cancelled [place] % (Auto) Cancelled Eos % (Auto) Cancelled Baso % (Auto) Cancelled Lymph # (Auto) Cancelled [place] # (Auto) Cancelled Eos # (Auto) Cancelled Baso # (Auto) Cancelled Abs Immat Gran (auto) Cancelled Absolute Neuts (auto) Cancelled Absolute Nucleated RBC 0.000 Nucleated RBC % (auto) Neutrophils % (Manual) Band Neutrophils % Lymphocytes % (Manual) Atypical Lymphs % (Man) Monocytes % (Manual) Eosinophils % (Manual) Metamyelocytes % Abs Neuts (Manual) Lymphocytes # (Manual) Atyp Lymphs # (Manual) Monocytes # (Manual) Eosinophils # (Manual) Metamyelocytes # Platelet Estimate Plt Morphology Comment RBC Morphology Polychromasia Hypochromasia Macrocytosis Sodium Potassium Chloride Carbon Dioxide Anion Gap BUN Creatinine Estim Creat Clear Calc Estimated GFR Random Glucose Calcium Phosphorus Magnesium Complement C3 Complement C4 11/29/23 11/29/23 11/29/23 06:02 06:02 06:02 WBC RBC Hgb Hct MCV MCH MCHC RDW Plt Count MPV Immature Gran % (Auto) Neut % (Auto) Lymph % (Auto) [place] % (Auto) Eos % (Auto) Baso % (Auto) Lymph # (Auto) [place] # (Auto) Eos # (Auto) Baso # (Auto) Abs Immat Gran (auto) Absolute Neuts (auto) Absolute Nucleated RBC Cancelled Nucleated RBC % (auto) 0.0 Cancelled Neutrophils % (Manual) 75 H Band Neutrophils % 2 L Lymphocytes % (Manual) 10 L Atypical Lymphs % (Man) 2 Monocytes % (Manual) 8 Eosinophils % (Manual) 2 Metamyelocytes % 1 Abs Neuts (Manual) 6.5 Lymphocytes # (Manual) 0.9 L Atyp Lymphs # (Manual) 0.2 Monocytes # (Manual) 0.7 Eosinophils # (Manual) 0.2 Metamyelocytes # 0.1 Platelet Estimate SLIGHTLY DECREASED Plt Morphology Comment NORMAL RBC Morphology NOTED Polychromasia 1+ (0-2) Hypochromasia 1+ (5-14) Macrocytosis 1+ (5-14) Sodium 142 Cancelled Potassium 3.3 Chloride Carbon Dioxide Anion Gap BUN Creatinine Estim Creat Clear Calc Estimated GFR Random Glucose Calcium Phosphorus Magnesium Complement C3 Complement C4 11/29/23 11/29/23 11/29/23 06:02 06:02 06:02 WBC RBC Hgb Hct MCV MCH MCHC RDW Plt Count MPV Immature Gran % (Auto) Neut % (Auto) Lymph % (Auto) [place] % (Auto) Eos % (Auto) Baso % (Auto) Lymph # (Auto) [place] # (Auto) Eos # (Auto) Baso # (Auto) Abs Immat Gran (auto) Absolute Neuts (auto) Absolute Nucleated RBC Nucleated RBC % (auto) Neutrophils % (Manual) Band Neutrophils % Lymphocytes % (Manual) Atypical Lymphs % (Man) Monocytes % (Manual) Eosinophils % (Manual) Metamyelocytes % Abs Neuts (Manual) Lymphocytes # (Manual) Atyp Lymphs # (Manual) Monocytes # (Manual) Eosinophils # (Manual) Metamyelocytes # Platelet Estimate Plt Morphology Comment RBC Morphology Polychromasia Hypochromasia Macrocytosis Sodium Potassium Cancelled Chloride 105 Cancelled Carbon Dioxide 26 Cancelled Anion Gap 14 BUN Creatinine Estim Creat Clear Calc Estimated GFR Random Glucose Calcium Phosphorus Magnesium Complement C3 Complement C4 11/29/23 11/29/23 11/29/23 06:02 06:02 06:02 WBC RBC Hgb Hct MCV MCH MCHC RDW Plt Count MPV Immature Gran % (Auto) Neut % (Auto) Lymph % (Auto) [place] % (Auto) Eos % (Auto) Baso % (Auto) Lymph # (Auto) [place] # (Auto) Eos # (Auto) Baso # (Auto) Abs Immat Gran (auto) Absolute Neuts (auto) Absolute Nucleated RBC Nucleated RBC % (auto) Neutrophils % (Manual) Band Neutrophils % Lymphocytes % (Manual) Atypical Lymphs % (Man) Monocytes % (Manual) Eosinophils % (Manual) Metamyelocytes % Abs Neuts (Manual) Lymphocytes # (Manual) Atyp Lymphs # (Manual) Monocytes # (Manual) Eosinophils # (Manual) Metamyelocytes # Platelet Estimate Plt Morphology Comment RBC Morphology Polychromasia Hypochromasia Macrocytosis Sodium Potassium Chloride Carbon Dioxide Anion Gap Cancelled BUN 49 H Cancelled Creatinine 3.14 H Cancelled Estim Creat Clear Calc 19.0 Estimated GFR Random Glucose Calcium Phosphorus Magnesium Complement C3 Complement C4 11/29/23 11/29/23 11/29/23 06:02 06:02 06:02 WBC RBC Hgb Hct MCV MCH MCHC RDW Plt Count MPV Immature Gran % (Auto) Neut % (Auto) Lymph % (Auto) [place] % (Auto) Eos % (Auto) Baso % (Auto) Lymph # (Auto) [place] # (Auto) Eos # (Auto) Baso # (Auto) Abs Immat Gran (auto) Absolute Neuts (auto) Absolute Nucleated RBC Nucleated RBC % (auto) Neutrophils % (Manual) Band Neutrophils % Lymphocytes % (Manual) Atypical Lymphs % (Man) Monocytes % (Manual) Eosinophils % (Manual) Metamyelocytes % Abs Neuts (Manual) Lymphocytes # (Manual) Atyp Lymphs # (Manual) Monocytes # (Manual) Eosinophils # (Manual) Metamyelocytes # Platelet Estimate Plt Morphology Comment RBC Morphology Polychromasia Hypochromasia Macrocytosis Sodium Potassium Chloride Carbon Dioxide Anion Gap BUN Creatinine Estim Creat Clear Calc Cancelled Estimated GFR 19 Cancelled Random Glucose 86 Cancelled Calcium 7.7 L Phosphorus Magnesium Complement C3 Complement C4 11/29/23 06:02 WBC RBC Hgb Hct MCV MCH MCHC RDW Plt Count MPV Immature Gran % (Auto) Neut % (Auto) Lymph % (Auto) [place] % (Auto) Eos % (Auto) Baso % (Auto) Lymph # (Auto) [place] # (Auto) Eos # (Auto) Baso # (Auto) Abs Immat Gran (auto) Absolute Neuts (auto) Absolute Nucleated RBC Nucleated RBC % (auto) Neutrophils % (Manual) Band Neutrophils % Lymphocytes % (Manual) Atypical Lymphs % (Man) Monocytes % (Manual) Eosinophils % (Manual) Metamyelocytes % Abs Neuts (Manual) Lymphocytes # (Manual) Atyp Lymphs # (Manual) Monocytes # (Manual) Eosinophils # (Manual) Metamyelocytes # Platelet Estimate Plt Morphology Comment RBC Morphology Polychromasia Hypochromasia Macrocytosis Sodium Potassium Chloride Carbon Dioxide Anion Gap BUN Creatinine Estim Creat Clear Calc Estimated GFR Random Glucose Calcium Cancelled Phosphorus 1.8 L Magnesium 1.6 Complement C3 Complement C4 Preliminary micro results at discharge 11/24/23 18:49 Blood Culture - Preliminary Blood - Venous No growth after 48 hours. 11/24/23 19:08 Blood Culture - Preliminary Blood - Venous No growth after 48 hours. Imaging Chest x-ray: Radiologist's impression: ITS Impressions Chest X-Ray 11/24/23 19:26 IMPRESSION: Mild cardiomegaly. No acute process seen. Electronically signed by: Alfredo Ramirez MD 11/24/2023 07:48 PM EDT RP Abdomen/Pelvis CT 11/24/23 19:55 IMPRESSION: 1. Status post colectomy with ileostomy on the right and growing collection in the mesentery most likely unresolved hematoma/seroma. 2. Cholelithiasis without cholecystitis. 3. Indeterminate lesion in the left kidney, correlate with further MRI. 4. 0.3 cm stone in the urinary bladder with wall thickening or bladder Fleischner guidelines were followed. Electronically signed by: Gabriela Nava MD 11/24/2023 09:56 PM EDT RP Discharge Plan Discharge Anticipated Discharge Date/Time: 11/29/23 12:54 Patient Disposition: Home Health Service Discharge Diagnosis: Acute renal failure Urine infection Referrals: Joao Duncan [Primary Care Provider] - 1 Week Discharge Medications: New cefuroxime axetil 500 mg tablet 500 mg PO BID Qty: 10 0RF Continued metoprolol tartrate 100 mg tablet 100 mg PO BID 90 Days Qty: 180 0RF Protocol: Hold for SBP/HR < HOLD for SBP < : 90 HOLD for HR < : 60 omeprazole 20 mg Capsule,Delayed Release(Dr/Ec) 20 mg PO BID@0630,1630 Qty: 60 0RF ferrous sulfate 325 mg (65 mg iron) Tablet 325 mg PO BID Qty: 60 3RF ascorbic acid (vitamin C) [Vitamin C] 500 mg Tablet 250 mg PO BID Qty: 60 3RF Eliquis 5 mg Tablet 5 mg PO BID Qty: 60 4RF acetaminophen 325 mg Tablet 325 mg PO QID PRN (Reason: Pain) amiodarone 200 mg tablet 200 mg PO DAILY Qty: 90 1RF Rx Instructions: After loading dose. Held lisinopril 5 mg Tablet 5 mg PO DAILY Hold Instructions: HOLD until you see your kidney specialist diltiazem HCl 240 mg capsule,extended release 24hr 240 mg PO DAILY Qty: 90 3RF Hold Instructions: HOLD until you see your kidney specialist and monitor your blood pressure at home. Rx Instructions: Dose increase from 180mg daily up to 240mg daily Discharge Orders: Discharge Order (Routine); Ordered 11/29/23 Ordered By: Yunior Allred Diet: Advance to usual diet Activity on Discharge: As tolerated Stand Alone Forms: Patient Portal Discharge page Print Language: Jamaican Other Ambulatory Orders: Basic Metabolic Panel (Routine) Timeframe: 1 Week Facility: [facility] - Location: Laboratory Ordered By: Yunior Allred Complete Blood Count Auto Diff (Routine) Timeframe: 1 Week Facility: [facility] - Location: Laboratory Ordered By: Yunior Allred Care Plan Goals: You were treated for Kidney failure and urine infection. Continue Ceftin for 5 more days Hold Diltiazem and Lisinopril To repeat Kidney function next week Monitor blood pressure at home Health Concerns: Acute renal failure Urine infection Plan of Treatment: Antibiotics Hold [employer] [facility] Monitor blood pressure at home Assessment: as above
--- NOTE | 2023-11-29 13:15 | P.F2F_ITS ---
Service Date Service Date: 11/29/23 Encounter Date of encounter: 11/29/23 Reasons for Services Signs and symptoms assessed: physical deconditioning Monitoring BP and heart rate Reason for [facility]: medication management and teach disease management Reason for physical therapy: home safety and mobility and therapeutic exercises Homebound: Leaving the home is medically contraindicated at this time without the asist of a device and/or another person due th the listed conditions above and below. Reason homebound: unable to drive Certification: Based on the above findings, I certify that this patient is confined to the home and needs intermittent [facility] care, physical therapy and/or speech therapy, or continues to need occupational therapy. The patient is under my care, and I have initiated the establishment of the plan of care. The patient will be followed by a physician who will periodically review the plan of care. Time Spent With Patient Time: Total time managing care of this patient today ____ minutes.
[2023-11-29 16:00] VITALS: BP 123/77
[2023-11-29 19:33] LABS: Myeloperoxidase Antibody <1.0 AI; Proteinase 3 PR3 Antibodies <1.0 AI
[2023-11-30 13:53] LABS: Anti Nuclear Antibody Screen NEGATIVE (NEGATIVE)
[2023-11-30 19:34] LABS: IgA 293 mg/dL (70-320); IgG 826 mg/dL (600-1540); IgM 40 mg/dL (50-300)
== END 2023-11-29 16:43 | disposition home health service (06) | DRG 871 ==
LOC: HO.ED 22:46 → HO.EDOVER 23:49 → HO.ICU 23:54 → HO.IMC 11-27 12:51
PROVIDERS: Internal Medicine; Internal Medicine Critical Care Medicine; Nurse Practitioner Family; Admitting Provider Physician Assistant Medical; Emergency Provider Emergency Medicine; PCP Internal Medicine; Visit Provider Student in an Organized Health Care Education/Training Program
DX: A41.9 Sepsis, unspecified organism (principal); G92.8 Other toxic encephalopathy; R57.8 Other shock; R65.21 Severe sepsis with septic shock; N17.0 Acute kidney failure with tubular necrosis; D62 Acute posthemorrhagic anemia; A04.0 Enteropathogenic Escherichia coli infection; N39.0 Urinary tract infection, site not specified; E87.20 Acidosis, unspecified; I49.5 Sick sinus syndrome; Z95.0 Presence of cardiac pacemaker; I12.9 Hypertensive chronic kidney disease with stage 1 through stage 4 chronic kidney disease, or unspecified chronic kidney disease; N18.31 Chronic kidney disease, stage 3a; E87.5 Hyperkalemia; B96.20 Unspecified Escherichia coli [E. coli] as the cause of diseases classified elsewhere; E86.1 Hypovolemia; Z85.048 Personal history of other malignant neoplasm of rectum, rectosigmoid junction, and anus; Z93.2 Ileostomy status; Z87.891 Personal history of nicotine dependence; Z79.01 Long term (current) use of anticoagulants; Z79.899 Other long term (current) drug therapy
CPT/HCPCS: 36415; 71045; 74176; 80048; 80053; 81001; 82040; 82272; 82533; 82570; 82784; 82803; 83010; 83540; 83605; 83615; 83735; 83880; 83935; 84100; 84156; 84300; 84443; 84484; 84550; 85007; 85014; 85018; 85025; 85027; 85335; 85397; 85610; 85652; 85730; 85999; 86021; 86038; 86140; 86160; 86334; 86850; 86880; 86900; 86901; 86923; 87040; 87070; 87086; 87088; 87186; 87205; 87493; 87507; 93005; 97116; 97162; 99285; C1758; J0613; J0696; J2270; J2405; J2470; J2543; J3370; J3475; J3480; J7120; P9016; P9047

== ENCOUNTER → 2023-11-24 18:28 | Outpatient (BNV) | payer OTHER, SELFPAY | PROVIDERS: Admitting Provider Physician Assistant Medical; Emergency Provider Emergency Medicine; PCP Internal Medicine; Visit Provider Internal Medicine Cardiovascular Disease | DX: R94.31 Abnormal electrocardiogram [ECG] [EKG] (principal) | CPT/HCPCS: 93010 ==

== ENCOUNTER 2023-11-24 23:25 | Outpatient (BNV) | payer OTHER, SELFPAY | END 2023-11-27 01:19 | PROVIDERS: Admitting Provider Physician Assistant Medical; Emergency Provider Emergency Medicine; PCP Internal Medicine; Visit Provider Internal Medicine | DX: I48.91 Unspecified atrial fibrillation (principal) | CPT/HCPCS: 93010 ==

== ENCOUNTER → 2023-11-24 23:25 | Outpatient (BNV) | payer OTHER, SELFPAY | PROVIDERS: Admitting Provider Physician Assistant Medical; Emergency Provider Emergency Medicine; PCP Internal Medicine; Visit Provider Nurse Practitioner Family | DX: N17.9 Acute kidney failure, unspecified (principal); I10 Essential (primary) hypertension; E87.20 Acidosis, unspecified; E87.5 Hyperkalemia | CPT/HCPCS: 99222; 99232 ==

== ENCOUNTER → 2023-11-24 23:25 | Outpatient (BNV) | payer OTHER, SELFPAY | PROVIDERS: Admitting Provider Physician Assistant Medical; Emergency Provider Emergency Medicine; PCP Internal Medicine; Visit Provider Physician Assistant Medical | DX: N17.9 Acute kidney failure, unspecified (principal); R19.7 Diarrhea, unspecified | CPT/HCPCS: 99233; 99291; 99292 ==

== ENCOUNTER → 2023-11-24 23:25 | Outpatient (BNV) | payer OTHER, SELFPAY | PROVIDERS: Admitting Provider Physician Assistant Medical; Emergency Provider Emergency Medicine; PCP Internal Medicine; Visit Provider Surgery | DX: R19.7 Diarrhea, unspecified (principal); N19 Unspecified kidney failure; E87.20 Acidosis, unspecified; E87.5 Hyperkalemia; N17.9 Acute kidney failure, unspecified; D64.9 Anemia, unspecified | CPT/HCPCS: 99222 ==

== ENCOUNTER → 2023-11-24 23:25 | Outpatient (BNV) | payer OTHER, SELFPAY | PROVIDERS: Admitting Provider Physician Assistant Medical; Emergency Provider Emergency Medicine; PCP Internal Medicine; Visit Provider Student in an Organized Health Care Education/Training Program | DX: I48.91 Unspecified atrial fibrillation (principal); N17.9 Acute kidney failure, unspecified; R19.7 Diarrhea, unspecified; E87.5 Hyperkalemia; D64.9 Anemia, unspecified; E87.20 Acidosis, unspecified; N39.0 Urinary tract infection, site not specified; A04.0 Enteropathogenic Escherichia coli infection | CPT/HCPCS: 99233; 99239; G0180 ==

== ENCOUNTER 2024-01-23 10:51 | Inpatient (IN) | payer OTHER, SELFPAY ==
--- NOTE | ~2024-01-23 | XR_ITS ---
EXAMINATION: XR CHEST CLINICAL INFORMATION: elevated WBC, r/o pneumonia COMPARISON: None available. TECHNIQUE: 2 views of the chest were obtained. FINDINGS: Heart size is normal. Right chest wall dual-lead pacemaker present. Left IJ tunneled dialysis catheter with tip in SVC. No infiltrates, effusions or lung masses. XR/XR chest 2V IMPRESSION: No acute intrathoracic disease. Electronically signed by: Chase Dawson MD 01/23/2024 07:20 PM YARIEL
--- NOTE | ~2024-01-23 | CT_ITS ---
EXAMINATION: CT ABDOMEN AND PELVIS WITHOUT CONTRAST CLINICAL INFORMATION: Colitis CT abdomen pelvis 11/24/2023 COMPARISON: None available. TECHNIQUE: Multidetector volumetric imaging was performed from the superior aspect of the liver through the pubic symphysis. Sagittal and coronal reformatted images were obtained on the technologist's workstation. This CT examination was performed using dose optimization techniques as appropriate, variously including the following: *Automated exposure control *Adjustment of mA and/or kV according to patient size (this includes techniques or standardized protocols for targeted exams where dose is matched to indication/reason for exam; i.e. extremities or head) *Use of iterative reconstruction technique DLP: 488s mGy-cm FINDINGS: LUNG BASES: Heart size is normal. Coronary calcium is seen. Pacer wires are present LIVER, GALLBLADDER, AND BILIARY TREE: The liver is normal in size, shape, and attenuation. Punctate granuloma is present. No focal hepatic lesion or biliary ductal dilatation is present. The gallbladder is unremarkable with no evidence of radiopaque gallstones, gallbladder wall thickening, or obvious pericholecystic inflammatory changes. PANCREAS: Unremarkable. SPLEEN: Unremarkable. ADRENAL GLANDS: Bilateral adrenal thickening without discrete mass KIDNEYS AND URETERS: There is new air seen within the renal collecting system on the right which demonstrates mild hydronephrosis and dilatation of the ureter there is no Mckeon catheter present in the bladder. No right renal stones or right renal masses are seen. On the left, there is a punctate nonobstructing 2 mm upper pole calculus and a Bosniak class I as well as Bosniak class II cyst. No left-sided hydronephrosis in the left ureter appears normal. BLADDER: The bladder is decompressed and thick-walled. Superiorly, there is one area where there is loss of the fat plane between the bladder and the rectum GASTROINTESTINAL TRACT: Patient is status post a partial colectomy. The surgical anastomosis in the rectum is not as well seen on the current study. There is mucosal thickening present in the remaining colon marked inflammatory change is not present in the surrounding fat with the exception of the rectum where there is perirectal inflammation and presacral inflammation/fluid similar. There is one focal area where there is loss of the fat plane between the rectum and the bladder and a rectal vesical fistula cannot be excluded, especially given the air in the renal collecting system. ABDOMINAL WALL: No umbilical hernia is seen. There had been a right mid abdomen ileostomy present which is no longer present LYMPH NODES: No retroperitoneal lymphadenopathy VASCULAR: Calcific atherosclerotic changes are present in the aorta and iliofemoral vessels. There is no evidence of an abdominal aortic aneurysm. PELVIC VISCERA: There is mild BPH. Seminal vesicles appear normal . Small amount of free fluid is present in the pelvis, slightly increased when compared to prior. OSSEOUS STRUCTURES: Marked degenerative change is present in the spine from L3 through L5. No bony destructive lesions . Rounded sclerotic densities in the right sacrum and right iliac bone CT/CT abdomen pelvis wo IV con IMPRESSION: 1. There is new air seen within the right renal collecting system with mild hydronephrosis and dilatation of the ureter. There is one focal area where there is loss of the fat plane between the rectum and the bladder and a rectal vesical fistula cannot be excluded. Emphysematous highlighted as would also be another consideration. Recommend correlation with urine culture and urine analysis. 2. Some mucosal thickening of the left: Which could represent colitis in the correct clinical setting. 3. Other incidental findings as described above. Fleischner guidelines were followed. This critical result was discussed with Dr. Gastelum at 8:55 PM on the evening of the exam and it was ascertained that the content and urgency of the report was understood at the time of direct communication. Electronically signed by: Chase Dawson MD 01/23/2024 09:06 PM YARIEL
[2024-01-23 11:35] VITALS: BP 102/49; PULSE 72; RESP 16; TEMP 37; O2SAT 98; BMI 23.7
--- NOTE | 2024-01-23 11:36 | ED.GENADULT ---
HPI - General Adult General Chief complaint: Nausea/Vomiting/Diarrhea Stated complaint: n/v/d Time Seen by Provider: 01/23/24 18:23 Source: patient History of Present Illness ED Provider: HPI narrative: 78-year-old male with a PMH significant for?AFib on Eliquis, sick sinus syndrome with pacemaker in place, HTN, CAD, degenerative arthritis, and rectal cancer colectomy status post reversal , end-stage renal disease started on dialysis 01/05 surgery and follow up done at [facility] Dr. Rushing, was seen at [facility] 01/13 for diarrhea with workup negative stool sample report not available patient improved in 2 days again today started having watery diarrhea more than 10-14 times with slight nausea no fever no chills no recent antibiotic use denies any abdominal discomfort patient has missed his dialysis today does make urine patient took 2 Imodium at around 08:00 Related Data Home Medications ?Medication ?Instructions ?Recorded ?Confirmed lisinopril 5 mg tablet 5 mg PO DAILY 10/12/23 11/25/23 acetaminophen 325 mg tablet 325 mg PO QID PRN Pain 11/25/23 11/25/23 Previous Rx's ?Medication ?Instructions ?Recorded metoprolol tartrate 100 mg tablet 100 mg PO BID 90 days #180 tabs 06/08/22 omeprazole 20 mg capsule,delayed 20 mg PO BID@0630,1630 #60 caps 01/01/23 release diltiazem HCl 240 mg 240 mg PO DAILY #90 caps 01/16/23 capsule,extended release 24 hr ascorbic acid (vitamin C) 500 mg 250 mg (1/2 x 500 mg) PO BID #60 04/23/23 tablet (Vitamin C) tabs ferrous sulfate 325 mg (65 mg 325 mg PO BID #60 tabs 04/23/23 iron) tablet amiodarone 200 mg tablet 200 mg PO DAILY #90 tabs 08/13/23 apixaban 5 mg tablet (Eliquis) 5 mg PO BID #60 tabs 08/24/23 cefuroxime axetil 500 mg tablet 500 mg PO BID #10 tabs 11/29/23 walker #1 ea 11/29/23 Allergies Allergy/AdvReac Type Severity Reaction Status Date / Time No Known Allergies [NKA] Allergy Mild NOT Verified 01/23/24 11:42 APPLICABLE Review of Systems Review of Systems: Yes all other systems are reviewed and are negative [facility] Past Medical History Medical History End stage renal disease Sick sinus syndrome Postoperative hematoma involving digestive system following digestive system procedure Aftercare following left shoulder joint replacement surgery Pacemaker OA (osteoarthritis) Borderline hyperlipidemia Obesity HTN (hypertension) EtOH dependence Mild cognitive impairment Inhibited sex excitement Atrial fibrillation Cancer of kidney High cholesterol Hypertension Family History Family History Mother Heart problem Social History Social History Household Members: Spouse Housing: House Do you presently have visiting nurse or other home services: No Alcohol intake: former Comment: refusing alarms Patient Tobacco Use Status: Former Tobacco user Tobacco use type: Cigarette Smoked in Last 30 Days: No Use of substances other than those prescribed or required for medical reasons: No Advance Directives: Yes Advance Directives on File: Yes Advance Directives Date on File: 11/29/22 Do you have a plan to hurt others: No Plan service: Yes Physical Exam ED Vital Signs: Vital Signs - 24 hr 01/23/24 11:35 01/23/24 17:44 01/23/24 21:28 Temperature 98.6 F 98 F 98.0 F Pulse Rate 72 76 78 Respiratory Rate 16 16 17 Blood Pressure 102/49 L 106/53 L 131/59 L Pulse Oximetry 98 96 98 Oxygen Delivery Method Room Air Room Air Room Air 01/23/24 21:53 Temperature 98.1 F Pulse Rate 67 Respiratory Rate 16 Blood Pressure 125/54 L Pulse Oximetry 96 Oxygen Delivery Method Room Air BMI result Body Mass Index 23.7 Appearance: Alert. Oriented X3. No acute distress. Eyes: pallor + ENT: Pharynx normal. Oral Mucosa moist Neck: Normal inspection. Neck supple. CVS: Normal heart rate and rhythm. Pulses normal. Respiratory: No respiratory distress. Equal air entry bilateral, no wheezing/rales/rhonchi Shiley catheter on the left side Abdomen: Soft and nontender. Bowel sounds are present, no mass palpable, no CVA tenderness Skin: Skin warm and dry. Normal skin color. Normal skin turgor. Extremities: No lower extremity edema. No calf tenderness Neuro: Oriented X 3. No motor deficit. No sensory deficit.No cerebellar signs , cranial nerves II-XII intact Course Course Course Narrative: This is a rapid medical exam performed by Fransico Link NP: Additional HPI, ROS, PE not included below will be deferred to primary provider. Patient is a 78-year-old Kiswahili speaking male with history of rectal carcinoma, afib on eliquis, BPH presenting to the emergency department with complaint of diarrhea for 3 days. Denies nausea, vomiting, hematochezia, melena. Able to eat but this causes diarrhea. Plan: labs, viral serology Reevaluation(s) Reevaluation #1: spoke to [facility] again his surgical team states that there is no surgical intervention or surgery needed they state since there is no surgical need we should be able to manage his c diff and he can be admitted they refuse to admit at this time Medications Administered Discontinued Medications Generic Name Dose Route Start Last Admin Trade Name Freq PRN Reason Stop Dose Admin Ceftriaxone Sodium 1 gm 01/23/24 21:20 01/23/24 21:28 Ceftriaxone Sodium 1 Gm Vial IVPUSH 01/23/24 21:21 1 gm ONCE ONE Administration Fidaxomicin 200 mg 01/23/24 23:01 01/23/24 23:58 Fidaxomicin 200 Mg Tablet PO 01/23/24 23:02 200 mg ONCE ONE Administration Sodium Chloride 1,000 mls @ 999 mls/hr 01/23/24 18:39 01/23/24 23:59 Ns IV 01/23/24 19:39 Infused .Q1H1M ONE Infusion Metronidazole 500 mg in 100 mls @ 100 mls/hr 01/23/24 21:58 01/23/24 23:59 Flagyl IV 01/23/24 22:57 Infused ONCE ONE Infusion Medical Decision Making Medical Decision Making MDM Narrative: 78-year-old male with a PMH significant for?AFib on Eliquis, sick sinus syndrome with pacemaker in place, HTN, CAD, degenerative arthritis, and rectal cancer colectomy status post reversal , end-stage renal disease started on dialysis 01/05 surgery and follow up at [facility] Dr. 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 Case discussed with Dr. Irvin surgery here does not feel comfortable taking this patient as patient had surgery done at [facility] as it is complicated case. Called transport center at [facility] awaiting for the call back/bed Case discussed Dr. Rushing at [facility] will admit patient to medical service not sure whether patient has fistula or not Differential Diagnosis Differential Diagnoses: The differential diagnosis associated with the presentation includes Admission/Observation Consideration of admission/observation: Escalation of care including admission/observation considered Lab Data MDM Lab Attestation statement: I reviewed the patient's lab results. 01/23/24 13:13 01/23/24 13:13 Labs: Lab Results 01/23/24 01/23/24 01/23/24 Range/Units 13:12 13:13 13:37 WBC 23.0 H (4.8-10.8) X10*3/uL RBC 2.53 L (4.60-5.80) X10*6/uL Hgb 8.0 L (14.0-18.0) g/dl Hct 24.2 L (42.0-52.0) % MCV 95.7 (80.0-98.0) fL MCH 31.6 (27.0-33.0) pg MCHC 33.1 (31.0-36.0) g/dl RDW 17.6 H (11.0-16.0) % Plt Count 180 (160-400) X10*3/uL MPV 9.8 (9.4-12.4) fL Immature Gran % (Auto) 2.4 H (0.0-0.4) % Neut % (Auto) 86.1 H (45-73) % Lymph % (Auto) 5.1 L (20-40) % Todd % (Auto) 6.1 (2-11) % Eos % (Auto) 0.1 (0-4) % Baso % (Auto) 0.2 (0-2) % Lymph # (Auto) 1.2 (1.2-4.9) X10*3/uL [place] # (Auto) 1.4 H (0.1-1.2) X10*3/uL Eos # (Auto) 0.0 (0.0-0.4) X10*3/uL Baso # (Auto) 0.1 (0.0-0.2) X10*3/uL Abs Immat Gran (auto) 0.56 H (0.00-0.03) X10*3/uL Absolute Neuts (auto) 19.8 H (2.0-8.3) x10*3/uL Absolute Nucleated RBC 0.000 (0.0-0.012) X10*3/uL Nucleated RBC % (auto) 0.0 (0.0-0.2) /100WBC Sodium 139 (135-145) mmol/L Potassium 3.2 L (3.3-5.1) mmol/L Chloride 100 (96-108) mmol/L Carbon Dioxide 29 (22-29) mmol/L Anion Gap 13 (12-20) BUN 20 H (9-16) mg/dL Creatinine 3.35 H (0.5-1.4) mg/dL Estim Creat Clear Calc 17.8 Estimated GFR 18 Random Glucose 88 (60-115) mg/dL Lactic Acid (0.5-2.0) mmol/L Calcium 7.4 L (8.4-10.2) mg/dL Magnesium 1.6 (1.6-2.6) mg/dL Total Bilirubin 0.7 (0.0-1.0) mg/dL AST 15 (5-37) U/L ALT < 6 (0-40) U/L Alkaline Phosphatase 68 (39-117) U/L Total Protein 5.5 L (6.5-8.0) g/dL Albumin 2.3 L (3.5-5.0) g/dL Urine Color Dark Yellow Urine Appearance Turbid Urine pH 5.5 (5.0-9.0) Ur Specific [place] 1.015 (1.005-1.025) Urine Protein 100 (2+) H (Neg-Trace) mg/dL Urine Glucose (UA) Negative (Negative) mg/dL Urine Ketones Trace (Negative) mg/dL Urine Blood Moderate (2+) H (Negative) Urine Nitrite Negative (Negative) Ur Leukocyte Esterase Large (3+) H (Negative) Urine RBC 3-5 H (0-2) /HPF Urine WBC >50 H (0-5) /HPF Ur Squamous Epith Cells 3-5 (0-2) /HPF Urine Bacteria 4+ (None Seen) Hyaline Casts 3-5 (0-2) /LPF C. difficile Tox B Gene (Negative) C. difficile Toxin A&B (Negative) C. difficile Interpret Influenza Type A (PCR) NEGATIVE (Negative) Influenza Type B (PCR) NEGATIVE (Negative) RSV RNA Qual (PCR) NEGATIVE (Negative) SARS-CoV-2 RNA (RT-PCR) NEGATIVE (Negative) 01/23/24 01/23/24 Range/Units 19:04 21:12 WBC (4.8-10.8) X10*3/uL RBC (4.60-5.80) X10*6/uL Hgb (14.0-18.0) g/dl Hct (42.0-52.0) % MCV (80.0-98.0) fL MCH (27.0-33.0) pg MCHC (31.0-36.0) g/dl RDW (11.0-16.0) % Plt Count (160-400) X10*3/uL MPV (9.4-12.4) fL Immature Gran % (Auto) (0.0-0.4) % Neut % (Auto) (45-73) % Lymph % (Auto) (20-40) % Todd % (Auto) (2-11) % Eos % (Auto) (0-4) % Baso % (Auto) (0-2) % Lymph # (Auto) (1.2-4.9) X10*3/uL Todd # (Auto) (0.1-1.2) X10*3/uL Eos # (Auto) (0.0-0.4) X10*3/uL Baso # (Auto) (0.0-0.2) X10*3/uL Abs Immat Gran (auto) (0.00-0.03) X10*3/uL Absolute Neuts (auto) (2.0-8.3) x10*3/uL Absolute Nucleated RBC (0.0-0.012) X10*3/uL Nucleated RBC % (auto) (0.0-0.2) /100WBC Sodium (135-145) mmol/L Potassium (3.3-5.1) mmol/L Chloride (96-108) mmol/L Carbon Dioxide (22-29) mmol/L Anion Gap (12-20) BUN (9-16) mg/dL Creatinine (0.5-1.4) mg/dL Estim Creat Clear Calc Estimated GFR Random Glucose (60-115) mg/dL Lactic Acid 1.6 (0.5-2.0) mmol/L Calcium (8.4-10.2) mg/dL Magnesium (1.6-2.6) mg/dL Total Bilirubin (0.0-1.0) mg/dL AST (5-37) U/L ALT (0-40) U/L Alkaline Phosphatase (39-117) U/L Total Protein (6.5-8.0) g/dL Albumin (3.5-5.0) g/dL Urine Color Urine Appearance Urine pH (5.0-9.0) Ur Specific [place] (1.005-1.025) Urine Protein (Neg-Trace) mg/dL Urine Glucose (UA) (Negative) mg/dL Urine Ketones (Negative) mg/dL Urine Blood (Negative) Urine Nitrite (Negative) Ur Leukocyte Esterase (Negative) Urine RBC (0-2) /HPF Urine WBC (0-5) /HPF Ur Squamous Epith Cells (0-2) /HPF Urine Bacteria (None Seen) Hyaline Casts (0-2) /LPF C. difficile Tox B Gene POSITIVE A* (Negative) C. difficile Toxin A&B Positive A* (Negative) C. difficile Interpret SEE NOTE Influenza Type A (PCR) (Negative) Influenza Type B (PCR) (Negative) RSV RNA Qual (PCR) (Negative) SARS-CoV-2 RNA (RT-PCR) (Negative) Independent Interpretation I performed an independent interpretation of an: CT Scan Radiology Impression Discussion of test interpretation with radiology: I have reviewed the radiologist's reading. Radiologist Impression: [address] [address] [address] Scan Report Signed Patient: Mehran Ku MR#: [id number] : 1945 Acct:[id number] Age/Sex: 78 / M ADM Date: 01/23/24 Loc: .ED Attending Dr: Ordering Physician: Denzel Todd MD Date of Service: 01/23/24 Procedure(s): CT abdomen pelvis wo IV con Accession Number(s): [id number] cc: MIHAELA MONTERO; Denzel Todd MD~ EXAMINATION: CT ABDOMEN AND PELVIS WITHOUT CONTRAST CLINICAL INFORMATION: Colitis CT abdomen pelvis 11/24/2023 COMPARISON: None available. TECHNIQUE: Multidetector volumetric imaging was performed from the superior aspect of the liver through the pubic symphysis. Sagittal and coronal reformatted images were obtained on the technologist's workstation. This CT examination was performed using dose optimization techniques as appropriate, variously including the following: *Automated exposure control *Adjustment of mA and/or kV according to patient size (this includes techniques or standardized protocols for targeted exams where dose is matched to indication/reason for exam; i.e. extremities or head) *Use of iterative reconstruction technique DLP: 488s mGy-cm FINDINGS: LUNG BASES: Heart size is normal. Coronary calcium is seen. Pacer wires are present LIVER, GALLBLADDER, AND BILIARY TREE: The liver is normal in size, shape, and attenuation. Punctate granuloma is present. No focal hepatic lesion or biliary ductal dilatation is present. The gallbladder is unremarkable with no evidence of radiopaque gallstones, gallbladder wall thickening, or obvious pericholecystic inflammatory changes. PANCREAS: Unremarkable. SPLEEN: Unremarkable. ADRENAL GLANDS: Bilateral adrenal thickening without discrete mass KIDNEYS AND URETERS: There is new air seen within the renal collecting system on the right which demonstrates mild hydronephrosis and dilatation of the ureter there is no Mckeon catheter present in the bladder. No right renal stones or right renal masses are seen. On the left, there is a punctate nonobstructing 2 mm upper pole calculus and a Bosniak class I as well as Bosniak class II cyst. No left-sided hydronephrosis in the left ureter appears normal. BLADDER: The bladder is decompressed and thick-walled. Superiorly, there is one area where there is loss of the fat plane between the bladder and the rectum GASTROINTESTINAL TRACT: Patient is status post a partial colectomy. The surgical anastomosis in the rectum is not as well seen on the current study. There is mucosal thickening present in the remaining colon marked inflammatory change is not present in the surrounding fat with the exception of the rectum where there is perirectal inflammation and presacral inflammation/fluid similar. There is one focal area where there is loss of the fat plane between the rectum and the bladder and a rectal vesical fistula cannot be excluded, especially given the air in the renal collecting system. ABDOMINAL WALL: No umbilical hernia is seen. There had been a right mid abdomen ileostomy present which is no longer present LYMPH NODES: No retroperitoneal lymphadenopathy VASCULAR: Calcific atherosclerotic changes are present in the aorta and iliofemoral vessels. There is no evidence of an abdominal aortic aneurysm. PELVIC VISCERA: There is mild BPH. Seminal vesicles appear normal . Small amount of free fluid is present in the pelvis, slightly increased when compared to prior. OSSEOUS STRUCTURES: Marked degenerative change is present in the spine from L3 through L5. No bony destructive lesions . Rounded sclerotic densities in the right sacrum and right iliac bone CT/CT abdomen pelvis wo IV con IMPRESSION: 1. There is new air seen within the right renal collecting system with mild hydronephrosis and dilatation of the ureter. There is one focal area where there is loss of the fat plane between the rectum and the bladder and a rectal vesical fistula cannot be excluded. Emphysematous highlighted as would also be another consideration. Recommend correlation with urine culture and urine analysis. 2. Some mucosal thickening of the left: Which could represent colitis in the correct clinical setting. 3. Other incidental findings as described above. Fleischner guidelines were followed. This critical result was discussed with Dr. Gastelum at 8:55 PM on the evening of the exam and it was ascertained that the content and urgency of the report was understood at the time of direct communication. Electronically signed by: Chase Dawson MD 01/23/2024 09:06 PM [facility] Workstation: [id number] XRay Report Signed Patient: Mehran Ku MR#: [id number] : 1945 Acct:[id number] Age/Sex: 78 / M ADM Date: 01/23/24 Loc: HO.ED Attending Dr: Ordering Physician: Lurdes Rice Date of Service: 01/23/24 Procedure(s): XR chest 2V Accession Number(s): [id number] cc: MIHAELA MONTERO; Lurdes Rice~ EXAMINATION: XR CHEST CLINICAL INFORMATION: elevated WBC, r/o pneumonia COMPARISON: None available. TECHNIQUE: 2 views of the chest were obtained. FINDINGS: Heart size is normal. Right chest wall dual-lead pacemaker present. Left IJ tunneled dialysis catheter with tip in SVC. No infiltrates, effusions or lung masses. XR/XR chest 2V IMPRESSION: No acute intrathoracic disease. Electronically signed by: Chase Dawson MD 01/23/2024 07:20 PM EST Discharge Plan Discharge Clinical Impression: C. difficile colitis, Acute pyelonephritis, Recto-vesical fistula Patient Disposition: Admitted As Inpatient Transfer Details: [facility] Prescriptions: No Action metoprolol tartrate 100 mg tablet 100 mg PO BID 90 Days Qty: 180 0RF Protocol: Hold for SBP/HR < HOLD for SBP < : 90 HOLD for HR < : 60 omeprazole 20 mg Capsule,Delayed Release(Dr/Ec) 20 mg PO BID@0630,1630 Qty: 60 0RF ferrous sulfate 325 mg (65 mg iron) Tablet 325 mg PO BID Qty: 60 3RF ascorbic acid (vitamin C) [Vitamin C] 500 mg Tablet 250 mg PO BID Qty: 60 3RF Eliquis 5 mg Tablet 5 mg PO BID Qty: 60 4RF acetaminophen 325 mg Tablet 325 mg PO QID PRN (Reason: Pain) cefuroxime axetil 500 mg tablet 500 mg PO BID Qty: 10 0RF (EFRAIN) radha Desai See Rx Instructions .Route Qty: 1 0RF Rx Instructions: As directed lisinopril 5 mg Tablet 5 mg PO DAILY diltiazem HCl 240 mg capsule,extended release 24hr 240 mg PO DAILY Qty: 90 3RF Rx Instructions: Dose increase from 180mg daily up to 240mg daily amiodarone 200 mg tablet 200 mg PO DAILY Qty: 90 1RF Rx Instructions: After loading dose. Print Language: Kiswahili
[2024-01-23 13:22] LABS: MANUAL DIFF FLAG NO
[2024-01-23 13:23] LABS: Basophils Absolute Auto 0.1 X10*3/uL (0.0-0.2); Basophils Percent Auto 0.2 % (0-2); Eosinophils Percent Auto 0.1 % (0-4); Hematocrit 24.2 % (42.0-52.0); Imm Gran Abs Auto 0.56 X10*3/uL (0.00-0.03); Imm Gran Pct Auto 2.4 % (0.0-0.4); Lymphocytes Absolute Auto 1.2 X10*3/uL (1.2-4.9); Lymphocytes Percent Auto 5.1 % (20-40); Mean Corpuscular HGB Conc 33.1 g/dl (31.0-36.0); Mean Corpuscular Hemoglobin 31.6 pg (27.0-33.0); Mean Corpuscular Volume 95.7 fL (80.0-98.0); Mean Platelet Volume 9.8 fL (9.4-12.4); Monocytes Absolute Auto 1.4 X10*3/uL (0.1-1.2); Monocytes Percent Auto 6.1 % (2-11); Neutrophils Absolute Auto 19.8 x10*3/uL (2.0-8.3); Neutrophils Percent Auto 86.1 % (45-73); Platelet Count 180 X10*3/uL (160-400); Red Blood Count 2.53 X10*6/uL (4.60-5.80); Red Cell Distribution Width 17.6 % (11.0-16.0)
[2024-01-23 13:41] LABS: Alanine Aminotransferase < 6 U/L (0-40); Albumin Level 2.3 g/dL (3.5-5.0); Alkaline Phosphatase 68 U/L (39-117); Anion Gap 13 (12-20); Aspartate Amino Transferase 15 U/L (5-37); Bilirubin Total 0.7 mg/dL (0.0-1.0); Blood Urea Nitrogen 20 mg/dL (9-16); Calcium 7.4 mg/dL (8.4-10.2); Carbon Dioxide 29 mmol/L (22-29); Chloride 100 mmol/L (96-108); Creatinine Clr Calc Pharmacy 17.8; Estimated Glomerular Filt Rate 18; Glucose Random 88 mg/dL (60-115); Magnesium 1.6 mg/dL (1.6-2.6); Potassium 3.2 mmol/L (3.3-5.1); Sodium 139 mmol/L (135-145); Total Protein 5.5 g/dL (6.5-8.0)
[2024-01-23 13:56] LABS: Appearance Urine Turbid; Color Urine Dark Yellow; Glucose Urine UA Negative (Negative); Leukocyte Esterase Urine Large (3+) (Negative); Nitrite Urine Negative (Negative); PH 5.5 (5.0-9.0); Specific Gravity - Urine 1.015 (1.005-1.025); UMIC TRIGGER UACC YES; Urine Blood Moderate (2+) (Negative); Urine Ketones Trace mg/dL (Negative); Urine Protein 100 (2+) mg/dL (Neg-Trace)
[2024-01-23 14:04] LABS: Bacteria Urine 4+ (None Seen); UACC Culture Trigger YES; WBC Urine >50 /HPF (0-5)
[2024-01-23 14:16] LABS: Influenza A PCR NEGATIVE (Negative); Influenza B PCR NEGATIVE (Negative); Resp Syncy Virus RNA Qual PCR NEGATIVE (Negative); SARS COV2 PCR INHOUSE NEGATIVE (Negative)
[2024-01-23 17:44] VITALS: BP 106/53; PULSE 76; RESP 16; TEMP 36.6; O2SAT 96
[2024-01-23 19:33] LABS: Lactic Acid 1.6 mmol/L (0.5-2.0)
[2024-01-23] MEDS: 0.9 % Sodium Chloride 1,000 ML 999 ML IV (20:01)
[2024-01-23 21:28] VITALS: BP 131/59; PULSE 78; RESP 17; TEMP 36.7; O2SAT 98
[2024-01-23] MEDS: cefTRIAXone sodium 1 GM VIAL IVPUSH (21:28)
--- NOTE | 2024-01-23 21:49 | PC.NURSE ---
this rn assumed care of pt at 1900, pt a&ox4, respirations even and unlabored. pt reporting onset of diarrhea x1 week, reports being seen at [facility] and being discharged. pt reports he has taken imodium with no relief at this time. pt given bedside commode, 3 loose stools noted at this time. no blood noted in stool, and pt denies pain and n/v.
[2024-01-23 21:53] VITALS: BP 125/54; PULSE 67; RESP 16; TEMP 36.7; O2SAT 96
--- NOTE | 2024-01-23 22:17 | PM.IMHP ---
History of Present Illness Date of Service: 01/23/24 Attending physician on admission: Jim Grijalva Chief Complaint: N/V/D Pt is a 78-year-old Romansh-speaking male with a PMH significant for?paroxysmal AFib on Eliquis, sick sinus syndrome with pacemaker in place, HTN, and rectal cancer currently on oral chemotherapy who presents to the ED with? In the ED pt was Labs were significant for CXR showed CT? EKG demonstrated Pt was treated with Pt will be admitted to the hospital [facility] Medical History End stage renal disease Sick sinus syndrome Postoperative hematoma involving digestive system following digestive system procedure Aftercare following left shoulder joint replacement surgery Pacemaker OA (osteoarthritis) Borderline hyperlipidemia Obesity HTN (hypertension) EtOH dependence Mild cognitive impairment Inhibited sex excitement Atrial fibrillation Cancer of kidney High cholesterol Hypertension Family History Mother Heart problem Social History Household Members: Spouse Housing: House Do you presently have visiting nurse or other home services: No Alcohol intake: former Comment: refusing alarms Patient Tobacco Use Status: Former Tobacco user Tobacco use type: Cigarette Smoked in Last 30 Days: No Use of substances other than those prescribed or required for medical reasons: No Advance Directives: Yes Advance Directives on File: Yes Advance Directives Date on File: 11/29/22 Do you have a plan to hurt others: No Plan service: Yes Meds Allergies Allergy/AdvReac Type Severity Reaction Status Date / Time No Known Allergies [NKA] Allergy Mild NOT Verified 01/23/24 11:42 APPLICABLE Active Medications: Current Medications Metronidazole (Flagyl) 500 mg in 100 mls @ 100 mls/hr IV ONCE ONE Stop: 01/23/24 22:57 Home Medications ?Medication ?Instructions ?Recorded ?Confirmed ?Last Taken ?Type lisinopril 5 mg tablet 5 mg PO DAILY 10/12/23 11/25/23 11/24/23 History acetaminophen 325 mg tablet 325 mg PO QID PRN Pain 11/25/23 11/25/23 Unknown History Physical Exam Vital Signs and Narrative: Vital Signs: Last Vital Signs Temp 98.1 F 01/23/24 21:53 Pulse 67 01/23/24 21:53 Resp 16 01/23/24 21:53 BP 125/54 L 01/23/24 21:53 Pulse Ox 96 01/23/24 21:53 O2 Del Method Room Air 01/23/24 21:53 BMI result Body Mass Index 23.7 Results Labs 01/23/24 13:13 01/23/24 13:13 Labs: Laboratory Results - last 24 hr 01/23/24 01/23/24 01/23/24 13:12 13:13 13:37 MCV 95.7 MCH 31.6 MCHC 33.1 RDW 17.6 H Plt Count 180 MPV 9.8 Immature Gran % (Auto) 2.4 H Neut % (Auto) 86.1 H Lymph % (Auto) 5.1 L [place] % (Auto) 6.1 Eos % (Auto) 0.1 Baso % (Auto) 0.2 Lymph # (Auto) 1.2 [place] # (Auto) 1.4 H Eos # (Auto) 0.0 Baso # (Auto) 0.1 Abs Immat Gran (auto) 0.56 H Absolute Neuts (auto) 19.8 H Absolute Nucleated RBC 0.000 Nucleated RBC % (auto) 0.0 Anion Gap 13 Estim Creat Clear Calc 17.8 Estimated GFR 18 Random Glucose 88 Lactic Acid Calcium 7.4 L Magnesium 1.6 Total Bilirubin 0.7 AST 15 ALT < 6 Alkaline Phosphatase 68 Total Protein 5.5 L Albumin 2.3 L Urine Color Dark Yellow Urine Appearance Turbid Urine pH 5.5 Ur Specific [place] 1.015 Urine Protein 100 (2+) H Urine Glucose (UA) Negative Urine Ketones Trace Urine Blood Moderate (2+) H Urine Nitrite Negative Ur Leukocyte Esterase Large (3+) H Urine RBC 3-5 H Urine WBC >50 H Ur Squamous Epith Cells 3-5 Urine Bacteria 4+ Hyaline Casts 3-5 Influenza Type A (PCR) NEGATIVE Influenza Type B (PCR) NEGATIVE RSV RNA Qual (PCR) NEGATIVE SARS-CoV-2 RNA (RT-PCR) NEGATIVE 01/23/24 19:04 MCV MCH MCHC RDW Plt Count MPV Immature Gran % (Auto) Neut % (Auto) Lymph % (Auto) [place] % (Auto) Eos % (Auto) Baso % (Auto) Lymph # (Auto) [place] # (Auto) Eos # (Auto) Baso # (Auto) Abs Immat Gran (auto) Absolute Neuts (auto) Absolute Nucleated RBC Nucleated RBC % (auto) Anion Gap Estim Creat Clear Calc Estimated GFR Random Glucose Lactic Acid 1.6 Calcium Magnesium Total Bilirubin AST ALT Alkaline Phosphatase Total Protein Albumin Urine Color Urine Appearance Urine pH Ur Specific [place] Urine Protein Urine Glucose (UA) Urine Ketones Urine Blood Urine Nitrite Ur Leukocyte Esterase Urine RBC Urine WBC Ur Squamous Epith Cells Urine Bacteria Hyaline Casts Influenza Type A (PCR) Influenza Type B (PCR) RSV RNA Qual (PCR) SARS-CoV-2 RNA (RT-PCR) Imaging Radiologist's Impressions: Impressions Abdomen/Pelvis CT 01/23/24 07:16 IMPRESSION: 1. There is new air seen within the right renal collecting system with mild hydronephrosis and dilatation of the ureter. There is one focal area where there is loss of the fat plane between the rectum and the bladder and a rectal vesical fistula cannot be excluded. Emphysematous highlighted as would also be another consideration. Recommend correlation with urine culture and urine analysis. 2. Some mucosal thickening of the left: Which could represent colitis in the correct clinical setting. 3. Other incidental findings as described above. Fleischner guidelines were followed. This critical result was discussed with Dr. Gastelum at 8:55 PM on the evening of the exam and it was ascertained that the content and urgency of the report was understood at the time of direct communication. Electronically signed by: Chase Dawson MD 01/23/2024 09:06 PM EST RP Chest X-Ray 01/23/24 18:00 IMPRESSION: No acute intrathoracic disease. Electronically signed by: Chase Dawson MD 01/23/2024 07:20 PM EST RP
--- NOTE | 2024-01-23 22:31 | P.HPHOSP_ITS ---
History of Present Illness Date of Service: 01/23/24 Attending physician on admission: Jim Grijalva Chief Complaint: Diarrhea Mehran Gray is a 78 year old man with past medical history significant for rectal CA s/p low anterior resection with diverting loop ileostomy and reversal at [facility] end-stage renal disease on hemodialysis presents to the emergency department complaining of 3 weeks history of PMFSH Medical History End stage renal disease Sick sinus syndrome Postoperative hematoma involving digestive system following digestive system procedure Aftercare following left shoulder joint replacement surgery Pacemaker OA (osteoarthritis) Borderline hyperlipidemia Obesity HTN (hypertension) EtOH dependence Mild cognitive impairment Inhibited sex excitement Atrial fibrillation Cancer of kidney High cholesterol Hypertension Family History Mother Heart problem Social History Household Members: Spouse Housing: House Do you presently have visiting nurse or other home services: No Alcohol intake: former Comment: refusing alarms Patient Tobacco Use Status: Former Tobacco user Tobacco use type: Cigarette Smoked in Last 30 Days: No Use of substances other than those prescribed or required for medical reasons: No Advance Directives: Yes Advance Directives on File: Yes Advance Directives Date on File: 11/29/22 Do you have a plan to hurt others: No Plan service: Yes Meds Allergies Allergy/AdvReac Type Severity Reaction Status Date / Time No Known Allergies [NKA] Allergy Mild NOT Verified 01/23/24 11:42 APPLICABLE Active Medications: Current Medications Acetaminophen (Acetaminophen 325 Mg Tablet) 975 mg PO Q6H PRN PRN Reason: Pain, Mild (Pain Scale 1-3), fever or headache Metronidazole (Flagyl) 500 mg in 100 mls @ 100 mls/hr IV ONCE ONE Stop: 01/23/24 22:57 Melatonin (Melatonin 3 Mg Tablet) 6 mg PO BEDTIME PRN PRN Reason: Insomnia Sodium Chloride (0.9 % Sodium Chloride Flush 3 Ml Syringe) [facility] Medications ?Medication ?Instructions ?Recorded ?Confirmed ?Last Taken ?Type lisinopril 5 mg tablet 5 mg PO DAILY 10/12/23 11/25/23 11/24/23 History acetaminophen 325 mg tablet 325 mg PO QID PRN Pain 11/25/23 11/25/23 Unknown History Physical Exam 2 Vital Signs and Narrative: Vital Signs: Last Vital Signs Temp 98.1 F 01/23/24 21:53 Pulse 67 01/23/24 21:53 Resp 16 01/23/24 21:53 BP 125/54 L 01/23/24 21:53 Pulse Ox 96 01/23/24 21:53 O2 Del Method Room Air 01/23/24 21:53 BMI result Body Mass Index 23.7 Results Labs 01/23/24 13:13 01/23/24 13:13 Labs: Laboratory Results - last 24 hr 01/23/24 01/23/24 01/23/24 13:12 13:13 13:37 MCV 95.7 MCH 31.6 MCHC 33.1 RDW 17.6 H Plt Count 180 MPV 9.8 Immature Gran % (Auto) 2.4 H Neut % (Auto) 86.1 H Lymph % (Auto) 5.1 L [place] % (Auto) 6.1 Eos % (Auto) 0.1 Baso % (Auto) 0.2 Lymph # (Auto) 1.2 [place] # (Auto) 1.4 H Eos # (Auto) 0.0 Baso # (Auto) 0.1 Abs Immat Gran (auto) 0.56 H Absolute Neuts (auto) 19.8 H Absolute Nucleated RBC 0.000 Nucleated RBC % (auto) 0.0 Anion Gap 13 Estim Creat Clear Calc 17.8 Estimated GFR 18 Random Glucose 88 Lactic Acid Calcium 7.4 L Magnesium 1.6 Total Bilirubin 0.7 AST 15 ALT < 6 Alkaline Phosphatase 68 Total Protein 5.5 L Albumin 2.3 L Urine Color Dark Yellow Urine Appearance Turbid Urine pH 5.5 Ur Specific [place] 1.015 Urine Protein 100 (2+) H Urine Glucose (UA) Negative Urine Ketones Trace Urine Blood Moderate (2+) H Urine Nitrite Negative Ur Leukocyte Esterase Large (3+) H Urine RBC 3-5 H Urine WBC >50 H Ur Squamous Epith Cells 3-5 Urine Bacteria 4+ Hyaline Casts 3-5 Influenza Type A (PCR) NEGATIVE Influenza Type B (PCR) NEGATIVE RSV RNA Qual (PCR) NEGATIVE SARS-CoV-2 RNA (RT-PCR) NEGATIVE 01/23/24 19:04 MCV MCH MCHC RDW Plt Count MPV Immature Gran % (Auto) Neut % (Auto) Lymph % (Auto) [place] % (Auto) Eos % (Auto) Baso % (Auto) Lymph # (Auto) [place] # (Auto) Eos # (Auto) Baso # (Auto) Abs Immat Gran (auto) Absolute Neuts (auto) Absolute Nucleated RBC Nucleated RBC % (auto) Anion Gap Estim Creat Clear Calc Estimated GFR Random Glucose Lactic Acid 1.6 Calcium Magnesium Total Bilirubin AST ALT Alkaline Phosphatase Total Protein Albumin Urine Color Urine Appearance Urine pH Ur Specific [place] Urine Protein Urine Glucose (UA) Urine Ketones Urine Blood Urine Nitrite Ur Leukocyte Esterase Urine RBC Urine WBC Ur Squamous Epith Cells Urine Bacteria Hyaline Casts Influenza Type A (PCR) Influenza Type B (PCR) RSV RNA Qual (PCR) SARS-CoV-2 RNA (RT-PCR) Imaging Radiologist's Impressions: Impressions Abdomen/Pelvis CT 01/23/24 07:16 IMPRESSION: 1. There is new air seen within the right renal collecting system with mild hydronephrosis and dilatation of the ureter. There is one focal area where there is loss of the fat plane between the rectum and the bladder and a rectal vesical fistula cannot be excluded. Emphysematous highlighted as would also be another consideration. Recommend correlation with urine culture and urine analysis. 2. Some mucosal thickening of the left: Which could represent colitis in the correct clinical setting. 3. Other incidental findings as described above. Fleischner guidelines were followed. This critical result was discussed with Dr. Gastelum at 8:55 PM on the evening of the exam and it was ascertained that the content and urgency of the report was understood at the time of direct communication. Electronically signed by: Chase Dawson MD 01/23/2024 09:06 PM ybuy RP Chest X-Ray 01/23/24 18:00 IMPRESSION: No acute intrathoracic disease. Electronically signed by: Chase Dawson MD 01/23/2024 07:20 PM ybuy RP Quality VTE VTE Risk Level:: Medical - moderate - high VTE Device Contraindication: Treatment Not Indicated VTE Drug Contraindication: N/A - Med Ordered
[2024-01-23] MEDS: metroNIDAZOLE/NS 500 MG/100 ML PIGGYBACK 100 MG IV (22:50)
[2024-01-23 22:59] LABS: CDiff Gene PCR POSITIVE (Negative)
[2024-01-23 23:02] LABS: CDiff Toxin Positive (Negative)
[2024-01-23 23:03] LABS: CDIFF Internal ctrl Dots and bkg OK (V)
--- NOTE | 2024-01-23 23:50 | PC.NURSE ---
awaiting nursing hotel or motel cleaning supervisor to bring down medication to the ed.
[2024-01-23] MEDS: Fidaxomicin 200 MG TABLET PO (23:58)
--- NOTE | 2024-01-24 01:59 | PC.NURSE ---
pt allowed to sleep, respirations even and unlabored. no acute distress noted.
--- NOTE | 2024-01-24 02:57 | P.HPHOSP_ITS ---
History of Present Illness Date of Service: 01/24/24 Attending physician on admission: Jim Grijalva Chief Complaint: Diarrhea Mehran Gray is a 78 years old man with past medical history significant forrectal CA s/p low anterior resection with diverting loop ileostomy, reversal at [facility], ESRD on HD, atrial fibrillation on Eliquis, and PPM and hypertension presents to the emergency department complaining of 3 days history of nonbloody diarrhea. Denied associated abdominal pain, nausea or vomiting. He also denied any fevers or chills. He also denied any headache, chest pain, shortness on breath, cough, palpitations or dizziness. He denied any acute urinary symptoms such as urinary frequency or pain with urination. Received a prescription for cefuroxime in November 28 of this year. He does not has past medical history of C diff infection. In the ED, he was found to have stable vital signs. Blood workup is remarkable for leukocytosis of 23.0. There is no lactic acidosis. Hemoglobin is 8.0 and around baseline. Potassium is 3.2, creatinine 3.35 and BUN 20. LFTs are normal. Abdomen pelvis CT scan showed finding concerning for rectovesical fistula and some mucosal thickening of the left colon suggesting colitis. CXR is negative. ED tx: NS 1 L bolus, Imodium 2 mg p.o., ceftriaxone 1 g IV, Flagyl 500 mg IV, fidaxomicin 200 mg PO. Review of Systems 2 Review of Systems: All 12 systems were reviewed and normal except as noted in HPI. [facility] Medical History End stage renal disease Sick sinus syndrome Postoperative hematoma involving digestive system following digestive system procedure Aftercare following left shoulder joint replacement surgery Pacemaker OA (osteoarthritis) Borderline hyperlipidemia Obesity HTN (hypertension) EtOH dependence Mild cognitive impairment Inhibited sex excitement Atrial fibrillation Cancer of kidney High cholesterol Hypertension Family History Mother Heart problem Social History Household Members: Spouse Housing: House Do you presently have visiting nurse or other home services: No Alcohol intake: former Comment: refusing alarms Patient Tobacco Use Status: Former Tobacco user Tobacco use type: Cigarette Smoked in Last 30 Days: No Use of substances other than those prescribed or required for medical reasons: No Advance Directives: Yes Advance Directives on File: Yes Advance Directives Date on File: 11/29/22 Do you have a plan to hurt others: No Plan service: Yes Meds Allergies Allergy/AdvReac Type Severity Reaction Status Date / Time No Known Allergies [NKA] Allergy Mild NOT Verified 01/23/24 11:42 APPLICABLE Active Medications: Current Medications Acetaminophen (Acetaminophen 325 Mg Tablet) 975 mg PO Q6H PRN PRN Reason: Pain, Mild (Pain Scale 1-3), fever or headache Fidaxomicin (Fidaxomicin 200 Mg Tablet) 200 mg PO BID ONE Stop: 01/24/24 09:01 Sodium Chloride (0.9 % Sodium Chloride Flush 3 Ml Syringe) [facility] Medications ?Medication ?Instructions ?Recorded ?Confirmed ?Last Taken ?Type lisinopril 5 mg tablet 5 mg PO DAILY 10/12/23 11/25/23 11/24/23 History acetaminophen 325 mg tablet 325 mg PO QID PRN Pain 11/25/23 11/25/23 Unknown History Physical Exam 2 Vital Signs and Narrative: Vital Signs: Last Vital Signs Temp 98.1 F 01/23/24 21:53 Pulse 67 01/23/24 21:53 Resp 16 01/23/24 21:53 BP 125/54 L 01/23/24 21:53 Pulse Ox 96 01/23/24 21:53 O2 Del Method Room Air 01/23/24 21:53 BMI result Body Mass Index 23.7 Constitutional - Awake and Alert, No apparent distress. Anxious. Afebrile. HEENT - PER, EOMI. Dry oral mucosa. Heart - RRR, No murmurs. Lungs - Normal lung expansion, Normal respiratory effort, No respiratory distress, CTA bilaterally Abdomen - NT / ND; increased BS; No rebound or guarding Extremities - no calf tenderness bilaterally, no swelling Musculoskeletal - Normal inspection, normal ROM Skin - Warm/Dry Neurological - Alert & oriented x3. No focal weakness grossly noted. Normal speech. Psychological - Appropriate affect Results Labs 01/23/24 13:13 01/23/24 13:13 Labs: Laboratory Results - last 24 hr 01/23/24 01/23/24 01/23/24 13:12 13:13 13:37 MCV 95.7 MCH 31.6 MCHC 33.1 RDW 17.6 H Plt Count 180 MPV 9.8 Immature Gran % (Auto) 2.4 H Neut % (Auto) 86.1 H Lymph % (Auto) 5.1 L [place] % (Auto) 6.1 Eos % (Auto) 0.1 Baso % (Auto) 0.2 Lymph # (Auto) 1.2 [place] # (Auto) 1.4 H Eos # (Auto) 0.0 Baso # (Auto) 0.1 Abs Immat Gran (auto) 0.56 H Absolute Neuts (auto) 19.8 H Absolute Nucleated RBC 0.000 Nucleated RBC % (auto) 0.0 Anion Gap 13 Estim Creat Clear Calc 17.8 Estimated GFR 18 Random Glucose 88 Lactic Acid Calcium 7.4 L Magnesium 1.6 Total Bilirubin 0.7 AST 15 ALT < 6 Alkaline Phosphatase 68 Total Protein 5.5 L Albumin 2.3 L Urine Color Dark Yellow Urine Appearance Turbid Urine pH 5.5 Ur Specific [place] 1.015 Urine Protein 100 (2+) H Urine Glucose (UA) Negative Urine Ketones Trace Urine Blood Moderate (2+) H Urine Nitrite Negative Ur Leukocyte Esterase Large (3+) H Urine RBC 3-5 H Urine WBC >50 H Ur Squamous Epith Cells 3-5 Urine Bacteria 4+ Hyaline Casts 3-5 C. difficile Tox B Gene C. difficile Toxin A&B C. difficile Interpret Influenza Type A (PCR) NEGATIVE Influenza Type B (PCR) NEGATIVE RSV RNA Qual (PCR) NEGATIVE SARS-CoV-2 RNA (RT-PCR) NEGATIVE 01/23/24 01/23/24 19:04 21:12 MCV MCH MCHC RDW Plt Count MPV Immature Gran % (Auto) Neut % (Auto) Lymph % (Auto) [place] % (Auto) Eos % (Auto) Baso % (Auto) Lymph # (Auto) [place] # (Auto) Eos # (Auto) Baso # (Auto) Abs Immat Gran (auto) Absolute Neuts (auto) Absolute Nucleated RBC Nucleated RBC % (auto) Anion Gap Estim Creat Clear Calc Estimated GFR Random Glucose Lactic Acid 1.6 Calcium Magnesium Total Bilirubin AST ALT Alkaline Phosphatase Total Protein Albumin Urine Color Urine Appearance Urine pH Ur Specific [place] Urine Protein Urine Glucose (UA) Urine Ketones Urine Blood Urine Nitrite Ur Leukocyte Esterase Urine RBC Urine WBC Ur Squamous Epith Cells Urine Bacteria Hyaline Casts C. difficile Tox B Gene POSITIVE A* C. difficile Toxin A&B Positive A* C. difficile Interpret SEE NOTE Influenza Type A (PCR) Influenza Type B (PCR) RSV RNA Qual (PCR) SARS-CoV-2 RNA (RT-PCR) Imaging Radiologist's Impressions: Impressions Abdomen/Pelvis CT 01/23/24 07:16 IMPRESSION: 1. There is new air seen within the right renal collecting system with mild hydronephrosis and dilatation of the ureter. There is one focal area where there is loss of the fat plane between the rectum and the bladder and a rectal vesical fistula cannot be excluded. Emphysematous highlighted as would also be another consideration. Recommend correlation with urine culture and urine analysis. 2. Some mucosal thickening of the left: Which could represent colitis in the correct clinical setting. 3. Other incidental findings as described above. Fleischner guidelines were followed. This critical result was discussed with Dr. Gastelum at 8:55 PM on the evening of the exam and it was ascertained that the content and urgency of the report was understood at the time of direct communication. Electronically signed by: Chase Dawson MD 01/23/2024 09:06 PM EST RP Chest X-Ray 01/23/24 18:00 IMPRESSION: No acute intrathoracic disease. Electronically signed by: Chase Dawson MD 01/23/2024 07:20 PM EST RP Assessment and Plan (1) Recto-vesical fistula: Status: Acute (2) C. difficile colitis: Status: Acute Plan Mehran Gray is a 78 y/o man admitted with: * C diff colitis; received a prescription for cefpodoxime 2 months ago. Admit to hospitalist service. Continue treatment with fidaxomicin 200 mg p.o. b.i.d. for 10 days. Avoid antidiarrhea medications. ID consult. * ?Rectal vesicular fistula. Case discussed with surgeons at [facility] (f/u Dr. Rushing) -patient was not accepted as he has active C.diff infection. * ESRD on HD, pt misssed his HD session yesterday due to active diarrhea. Nephrology consult for inpatient hemodialysis. * AFib. Continue amiodarone, metoprolol and Eliquis. * ?UTI, no symptoms. Hesitated about starting antibiotics due to C diff infection. Await for urine cultures to consider antibiotic therapy. * Anemia of chronic disease, at baseline. Continue to monitor. DVT prophylaxis: Eliquis Code status: Full Patient will need hospitalization for at least 2 midnights for Cdiff infection treatment with oral antibiotic therapy and evaluation by subspecialty. Quality Stroke Does the patient have a stroke diagnosis?: No VTE Prior VTE?: No VTE Risk Level:: Medical - moderate - high VTE Device Contraindication: Treatment Not Indicated VTE Drug Contraindication: N/A - Med Ordered
[2024-01-24 03:39] VITALS: BP 116/45; PULSE 74; RESP 18; TEMP 37.1; O2SAT 98
[2024-01-24] MEDS: Potassium Chloride Packet 20 MEQ PACKET PO (03:39)
--- NOTE | 2024-01-24 03:43 | PC.NURSE ---
vss, pt given more wipes at this time. medicated per mar, tolerated well with water.
[2024-01-24 05:43] LABS: MANUAL DIFF FLAG NO
[2024-01-24 05:45] LABS: Basophils Absolute Auto 0.1 X10*3/uL (0.0-0.2); Basophils Percent Auto 0.4 % (0-2); Eosinophils Percent Auto 0.1 % (0-4); Hematocrit 24.4 % (42.0-52.0); Hemoglobin 7.7 g/dl (14.0-18.0); Imm Gran Pct Auto 2.3 % (0.0-0.4); Lymphocytes Absolute Auto 0.8 X10*3/uL (1.2-4.9); Lymphocytes Percent Auto 3.8 % (20-40); Mean Corpuscular HGB Conc 31.6 g/dl (31.0-36.0); Mean Corpuscular Hemoglobin 30.7 pg (27.0-33.0); Mean Corpuscular Volume 97.2 fL (80.0-98.0); Mean Platelet Volume 10.7 fL (9.4-12.4); Monocytes Absolute Auto 1.2 X10*3/uL (0.1-1.2); Monocytes Percent Auto 5.5 % (2-11); Neutrophils Absolute Auto 19.5 x10*3/uL (2.0-8.3); Neutrophils Percent Auto 87.9 % (45-73); Platelet Count 183 X10*3/uL (160-400); Red Blood Count 2.51 X10*6/uL (4.60-5.80); Red Cell Distribution Width 17.3 % (11.0-16.0); White Blood Count 22.2 X10*3/uL (4.8-10.8)
[2024-01-24 06:29] LABS: Anion Gap 19 (12-20); Blood Urea Nitrogen 24 mg/dL (9-16); Calcium 7.1 mg/dL (8.4-10.2); Carbon Dioxide 21 mmol/L (22-29); Chloride 104 mmol/L (96-108); Creatinine Clr Calc Pharmacy 15.4; Estimated Glomerular Filt Rate 15; Glucose Random 64 mg/dL (60-115); Magnesium 1.7 mg/dL (1.6-2.6); Potassium 3.1 mmol/L (3.3-5.1); Sodium 141 mmol/L (135-145)
[2024-01-24 08:48] LABS: Adenovirus F 40/41 Not Detected (Not Detect.); Astrovirus Not Detected (Not Detect.); Campylobacter Not Detected (Not Detect.); Cryptosporidium Not Detected (Not Detect.); Cyclospora cayetanensis Not Detected (Not Detect.); E. coli EAEC Not Detected (Not Detect.); E. coli EPEC Detected (Not Detect.); E. coli ETEC Not Detected (Not Detect.); E. coli STEC Not Detected (Not Detect.); Entamoeba histolytica Not Detected (Not Detect.); Giardia lamblia Not Detected (Not Detect.); Norovirus GI/GII Not Detected (Not Detect.); Plesiomonas shigelloides Not Detected (Not Detect.); Rotavirus A Not Detected (Not Detect.); Salmonella Not Detected (Not Detect.); Sapovirus Not Detected (Not Detect.); Shigella sp./EIEC Not Detected (Not Detect.); Vibrio Not Detected (Not Detect.); Vibrio Cholerae Not Detected (Not Detect.); Yersinia enterocolitica Not Detected (Not Detect.)
[2024-01-24] MEDS: Fidaxomicin 200 MG TABLET PO (09:07)
[2024-01-24] MEDS: 0.9 % Sodium Chloride Flush 3 ML SYRINGE IVFLUSH ×3 (09:10→21:04)
--- NOTE | 2024-01-24 09:25 | PM.EVENT ---
Event Note Date of Service: 01/24/24 Event Note: Pt seen/examined, labs,meds and imaging reviewd. Vitals stable. 78/m with esrd, chronic afib, chronic anemia, h/o cdif here with diarrhea, cdiff, gram negative bacteremia C diff colitis; recurrent Cdif, treated with dificid 2 months ago -PO Vanco now -ID consult ?Rectal vesicular fistula. Case discussed with surgeons at [facility] (f/u Dr. Rushing) -patient was not accepted as he has active C.diff infection. -consult general surgery here ESRD on HD, pt misssed his HD session yesterday due to active diarrhea. -Nephrology consult for inpatient hemodialysis. Chronic AFib. - Continue amiodarone, metoprolol and Eliquis. Gram negative ramesh bacteremia and UTI -Ceftriaxone -ID consult Anemia of chronic disease, at baseline. Continue to monitor. -transfuse for Hgb < 7, ? epo by Nephrology - DVT prophylaxis: Eliquis Code status: Credit Control Clerk Spent With Patient Time: Total time managing care of this patient today ____ minutes.
[2024-01-24 09:34] VITALS: BP 128/62; PULSE 66; RESP 16; TEMP 37; O2SAT 98
--- NOTE | 2024-01-24 09:39 | PHA.MEDREC ---
Addendum entered by Kaylie Awad RPh 01/24/24 10:01: Reviewed by [facility]. Original Note: Pharmacy Consult ? Medication Reconciliation Pharmacy has completed the medication reconciliation. Utilized [facility] and spoke to patient over the phone to confirm med list. was able to name of patients medication and all matched claims , except for Atorvastatin 40 mg there is no claims history. left on med list because states he last took yesterday. states patient in no longer on Diltiazem HCL 240 mg ,and Lisinopril 5 mg( Patient was discharge from [facility] [place] in NOV and was D/C from meds).
[2024-01-24] MEDS: Apixaban 5 MG TABLET PO ×2 (10:38→21:04)
[2024-01-24] MEDS: vancomycin HCL 125 MG CAPSULE PO ×3 (10:38→21:04)
--- NOTE | 2024-01-24 14:19 | P.CONNP_ITS ---
History of Present Illness Reason for Consult Consult date: 01/24/24 Chief Complaint Chief complaint: n/v/d History of Present Illness Narrative: 78-/m with pmh of etoh abuse, afib on AC, ckd,htn, cognitive impairment, obese, OA, dyslipidemia, rectal cancer on oral chemotherapy and radiation followed by Dr. Gaxiola He has CKD 3 at baseline. , positive hep B core antibody, He initially underwent neoadjuvant treatment and eventually had low anterior resection and diverting loop ileostomy at [facility] on 09/24/2023. Recent admit in [place] [facility] in . he was in acute renal failure with severe metabolic acidosis with associated hyperkalemia. Was in [facility] and started on dialysis 01/05 . Subsequently was seen at [facility] 01/13 for low hemoglobin. now presented to [place] [facility] with watery diarrhea more than 10-14 times with slight nausea no fever no chills no recent antibiotic use denies any abdominal discomfort patient has missed his dialysis sunday He does make urine since admit Cdiff turned positive and now on therapy for cdiff, he also has leucocytosis likely secondary to c diff PMFSH Past Medical History Medical History (Updated 01/24/24 @ 22:28 by Casey Maier MD) End stage renal disease Sick sinus syndrome Postoperative hematoma involving digestive system following digestive system procedure Aftercare following left shoulder joint replacement surgery Pacemaker OA (osteoarthritis) Borderline hyperlipidemia Obesity HTN (hypertension) EtOH dependence Mild cognitive impairment Inhibited sex excitement Atrial fibrillation Cancer of kidney High cholesterol Hypertension Family History Family History Mother Heart problem Social History Social History Household Members: Spouse Housing: House Do you presently have visiting nurse or other home services: No (had [facility] scheduled but did not see them) Alcohol intake: former Comment: refusing alarms Patient Tobacco Use Status: Former Tobacco user Tobacco use type: Cigarette Smoked in Last 30 Days: No e-Cigarette/Vaping Use: Never Used Use of substances other than those prescribed or required for medical reasons: No Currently Displaying Signs/Symptoms of Drug Intoxication Withdrawal: No Have you been hit, kicked, punched, or otherwise hurt by someone within the past year? If so, by whom?: No Advance Directives: Yes Advance Directives on File: Yes Advance Directives Date on File: 11/29/22 Do you have a plan to hurt others: No Plan Recently lost weight without trying: No Eating poorly because of decreased appetite: No Nutrition Risks: No Nutritional Risk Poor oral hygiene: No service: No Meds Allergies Allergy/AdvReac Type Severity Reaction Status Date / Time No Known Allergies [NKA] Allergy Mild NOT Verified 01/23/24 11:42 APPLICABLE Active Medications: Current Medications Acetaminophen (Acetaminophen 325 Mg Tablet) 975 mg PO Q6H PRN PRN Reason: Pain, Mild (Pain Scale 1-3), fever or headache Amiodarone HCl (Amiodarone Hcl 200 Mg Tablet) 200 mg PO DAILY [facility] Apixaban (Apixaban 5 Mg Tablet) 5 mg PO BID [facility] Last Admin: 01/24/24 10:38 Dose: 5 mg Ascorbic Acid (Ascorbic Acid 250 Mg Tablet) 250 mg PO BID [facility] Atorvastatin Calcium (Atorvastatin Calcium 40 Mg Tablet) 40 mg PO DAILY [facility] Ceftriaxone Sodium (Ceftriaxone Sodium 1 Gm Vial) 1 gm IVPUSH Q24H [facility] Ferrous Sulfate (Ferrous Sulfate 324 Mg Tablet.) 324 mg PO BID [facility] Metoprolol Tartrate (Metoprolol Tartrate 100 Mg Tablet) 100 mg PO BID [facility]; Protocol Multivitamins/Vitamin C (Multivitamin Tablet) 1 tab PO DAILY [facility] Omeprazole (Omeprazole 20 Mg Capsule.) 20 mg PO BID@0630,1630 [facility] Sodium Chloride (0.9 % Sodium Chloride Flush 3 Ml Syringe) 3 ml IVFLUSH QSHIFT [facility] Last Admin: 01/24/24 09:10 Dose: 3 ml Vancomycin HCl (Vancomycin Hcl 125 Mg Capsule) 125 mg PO Q6H [facility] Last Admin: 01/24/24 10:38 Dose: 125 mg Home Medications ?Medication ?Instructions ?Recorded ?Confirmed ?Last Taken ?Type acetaminophen 325 mg tablet 325 mg PO QID PRN Pain 11/25/23 01/24/24 01/23/24 History atorvastatin 40 mg tablet 40 mg PO DAILY 01/24/24 01/24/24 01/23/24 History multivitamin 1 tab PO DAILY 01/24/24 01/24/24 01/23/24 History Physical Exam Vital Signs: Last Vital Signs Temp 98.6 F 01/24/24 09:34 Pulse 66 01/24/24 09:34 Resp 16 01/24/24 09:34 BP 128/62 01/24/24 09:34 Pulse Ox 98 01/24/24 09:34 O2 Del Method Room Air 01/24/24 09:34 BMI result Body Mass Index 23.7 cvs: s1s2 Rs; cta Abd; soft Left IJ PC Results Lab Results 01/24/24 05:12 01/24/24 05:12 Lab results: Chemistry 01/23/24 01/24/24 13:13 05:12 Sodium 139 141 Potassium 3.2 L 3.1 L Carbon Dioxide 29 21 L BUN 20 H 24 H Creatinine 3.35 H 3.88 H Calcium 7.4 L 7.1 L Hematology 01/23/24 01/24/24 13:13 05:12 WBC 23.0 H 22.2 H Hgb 8.0 L 7.7 L Plt Count 180 183 Urinalysis 01/23/24 13:37 Urine Color Dark Yellow Urine Appearance Turbid Urine pH 5.5 Ur Specific [place] 1.015 Urine Protein 100 (2+) H Urine Glucose (UA) Negative Urine Ketones Trace Urine Blood Moderate (2+) H Urine Nitrite Negative Ur Leukocyte Esterase Large (3+) H Urine RBC 3-5 H Urine WBC >50 H Ur Squamous Epith Cells 3-5 Hyaline Casts 3-5 Assessment and Plan (1) End stage renal disease: Status: Acute Plan 1. ESRD on HD - schedule: M// at [facility] Dialysis - access: IJ PermCath - dialysed today as he missed yesterday. will resume regular mwf from tomorrow 2. Cdiff - on abx 3. anemia of ckd - monitor - hb 7.7 now procrit per protocol prbc for hb< 7 Procedures Date of Service Date of Service: 01/24/24
--- NOTE | 2024-01-24 15:56 | MHC.CM.PN ---
Patient comes from home w/ . Ambulates w/ cane. assists w/ ADL's. Active w/ [facility] for SN. HD M/W/F in [place], cannot recall name of facility. Daughter transports. PCP Joao Duncan at the [facility] on file and verified. DP: Goal is home resume services. Daughter to transport. CM will continue to follow.
[2024-01-24 16:00] VITALS: BP 128/63; PULSE 92; RESP 17; TEMP 36.3; O2SAT 99
[2024-01-24] MEDS: Amiodarone HCL 200 MG TABLET PO (16:22)
[2024-01-24] MEDS: Omeprazole 20 MG CAPSULE.DR PO (16:22)
[2024-01-24 19:29] VITALS: BP 138/65; PULSE 97; RESP 18; TEMP 36.6; O2SAT 100
[2024-01-24] MEDS: cefTRIAXone sodium 1 GM VIAL IVPUSH (21:03)
[2024-01-24 21:04] VITALS: BP 135/65; PULSE 97
[2024-01-24] MEDS: Ferrous Sulfate 324 MG TABLET.DR PO (21:04)
[2024-01-24] MEDS: Ascorbic Acid 250 MG TABLET PO (21:04)
[2024-01-24] MEDS: Metoprolol Tartrate 100 MG TABLET PO (21:04)
[2024-01-24 23:23] VITALS: BP 132/61; PULSE 66; RESP 16; TEMP 37; O2SAT 99
[2024-01-25] MEDS: vancomycin HCL 125 MG CAPSULE PO ×4 (03:05→20:14)
[2024-01-25 04:00] VITALS: BP 131/61; PULSE 61; RESP 16; TEMP 36.9; O2SAT 99
[2024-01-25] MEDS: Omeprazole 20 MG CAPSULE.DR PO ×2 (05:35→16:17)
[2024-01-25 06:18] LABS: Hematocrit 21.9 % (42.0-52.0); Hemoglobin 7.1 g/dl (14.0-18.0); Mean Corpuscular HGB Conc 32.4 g/dl (31.0-36.0); Mean Corpuscular Hemoglobin 30.7 pg (27.0-33.0); Mean Corpuscular Volume 94.8 fL (80.0-98.0); Mean Platelet Volume 10.4 fL (9.4-12.4); Platelet Count 159 X10*3/uL (160-400); Red Blood Count 2.31 X10*6/uL (4.60-5.80); Red Cell Distribution Width 17.2 % (11.0-16.0); White Blood Count 16.7 X10*3/uL (4.8-10.8)
[2024-01-25 07:49] VITALS: BP 112/62; PULSE 69; RESP 16; TEMP 36.9; O2SAT 99
[2024-01-25] MEDS: Multivitamin TABLET 1 TAB PO (08:11)
[2024-01-25] MEDS: 0.9 % Sodium Chloride Flush 3 ML SYRINGE IVFLUSH ×2 (08:11→16:18)
[2024-01-25] MEDS: Ascorbic Acid 250 MG TABLET PO ×2 (08:11→20:13)
[2024-01-25] MEDS: Apixaban 5 MG TABLET PO ×2 (08:11→20:14)
[2024-01-25] MEDS: Ferrous Sulfate 324 MG TABLET.DR PO ×2 (08:11→20:14)
[2024-01-25] MEDS: Atorvastatin Calcium 40 MG TABLET PO (08:11)
[2024-01-25] MEDS: Amiodarone HCL 200 MG TABLET PO (08:11)
--- NOTE | 2024-01-25 09:43 | P.CONGS_ITS ---
History of Present Illness Consult details Consult date: 01/25/24 Narrative: Patient was at hemodialysis who could not be evaluated. I know the patient well. Also discussed with the patient's hospitalist, Dr. Addison that patient's current issues should be addressed by Urology and once his C diff issues have been resolved, he should follow-up with his surgeons at [facility] who performed his original rectal procedure. [facility] Past Medical History Medical History (Updated 01/24/24 @ 22:28 by Casey Maier MD) End stage renal disease Sick sinus syndrome Postoperative hematoma involving digestive system following digestive system procedure Aftercare following left shoulder joint replacement surgery Pacemaker OA (osteoarthritis) Borderline hyperlipidemia Obesity HTN (hypertension) EtOH dependence Mild cognitive impairment Inhibited sex excitement Atrial fibrillation Cancer of kidney High cholesterol Hypertension Family History Family History Mother Heart problem Social History Social History Household Members: Spouse Housing: House Do you presently have visiting nurse or other home services: No (had VNA scheduled but did not see them) Alcohol intake: former Comment: refusing alarms Patient Tobacco Use Status: Former Tobacco user Tobacco use type: Cigarette Smoked in Last 30 Days: No e-Cigarette/Vaping Use: Never Used Use of substances other than those prescribed or required for medical reasons: No Currently Displaying Signs/Symptoms of Drug Intoxication Withdrawal: No Have you been hit, kicked, punched, or otherwise hurt by someone within the past year? If so, by whom?: No Advance Directives: Yes Advance Directives on File: Yes Advance Directives Date on File: 11/29/22 Do you have a plan to hurt others: No Plan Recently lost weight without trying: No Eating poorly because of decreased appetite: No Nutrition Risks: No Nutritional Risk Poor oral hygiene: No service: No Meds Allergies Allergy/AdvReac Type Severity Reaction Status Date / Time No Known Allergies [NKA] Allergy Mild NOT Verified 01/23/24 11:42 APPLICABLE Active Medications: Current Medications Acetaminophen (Acetaminophen 325 Mg Tablet) 975 mg PO Q6H PRN PRN Reason: Pain, Mild (Pain Scale 1-3), fever or headache Amiodarone HCl (Amiodarone Hcl 200 Mg Tablet) 200 mg PO DAILY [facility] Last Admin: 01/25/24 08:11 Dose: 200 mg Apixaban (Apixaban 5 Mg Tablet) 5 mg PO BID [facility] Last Admin: 01/25/24 08:11 Dose: 5 mg Ascorbic Acid (Ascorbic Acid 250 Mg Tablet) 250 mg PO BID [facility] Last Admin: 01/25/24 08:11 Dose: 250 mg Atorvastatin Calcium (Atorvastatin Calcium 40 Mg Tablet) 40 mg PO DAILY [facility] Last Admin: 01/25/24 08:11 Dose: 40 mg Ceftriaxone Sodium (Ceftriaxone Sodium 2 Gm Vial) 2 gm IVPUSH Q24H [facility] Ferrous Sulfate (Ferrous Sulfate 324 Mg Tablet.) 324 mg PO BID [facility] Last Admin: 01/25/24 08:11 Dose: 324 mg Metoprolol Tartrate (Metoprolol Tartrate 100 Mg Tablet) 100 mg PO BID [facility]; Protocol Last Admin: 01/25/24 08:18 Dose: Not Given Multivitamins/Vitamin C (Multivitamin Tablet) 1 tab PO DAILY [facility] Last Admin: 01/25/24 08:11 Dose: 1 tab Omeprazole (Omeprazole 20 Mg Capsule.) 20 mg PO BID@0630,1630 [facility] Last Admin: 01/25/24 05:35 Dose: 20 mg Sodium Chloride (0.9 % Sodium Chloride Flush 3 Ml Syringe) 3 ml IVFLUSH QSHIFT [facility] Last Admin: 01/25/24 08:11 Dose: 3 ml Vancomycin HCl (Vancomycin Hcl 125 Mg Capsule) 125 mg PO Q6H [facility] Last Admin: 01/25/24 08:21 Dose: 125 mg Home Medications ?Medication ?Instructions ?Recorded ?Confirmed ?Last Taken ?Type acetaminophen 325 mg tablet 325 mg PO QID PRN Pain 11/25/23 01/24/24 01/23/24 History atorvastatin 40 mg tablet 40 mg PO DAILY 01/24/24 01/24/24 01/23/24 History multivitamin 1 tab PO DAILY 01/24/24 01/24/24 01/23/24 History Physical Exam 2 Vital Signs: Vital Signs: Last Vital Signs Temp 98.4 F 01/25/24 07:49 Pulse 69 01/25/24 07:49 Resp 16 01/25/24 07:49 BP 112/62 01/25/24 07:49 Pulse Ox 99 01/25/24 07:49 O2 Del Method Room Air 01/25/24 07:49 BMI result Body Mass Index 23.7 Results Labs 01/25/24 05:54 01/24/24 05:12 Labs: Abnormal lab results 01/25/24 Range/Units 05:54 WBC 16.7 H (4.8-10.8) X10*3/uL RBC 2.31 L (4.60-5.80) X10*6/uL Hgb 7.1 L (14.0-18.0) g/dl Hct 21.9 L (42.0-52.0) % RDW 17.2 H (11.0-16.0) % Plt Count 159 L (160-400) X10*3/uL Short CBC 01/25/24 Range/Units 05:54 WBC 16.7 H (4.8-10.8) X10*3/uL Hgb 7.1 L (14.0-18.0) g/dl Hct 21.9 L (42.0-52.0) % Plt Count 159 L (160-400) X10*3/uL Urine 01/23/24 Range/Units 13:37 Urine Color Dark Yellow Urine Appearance Turbid Urine pH 5.5 (5.0-9.0) Ur Specific [place] 1.015 (1.005-1.025) Urine Protein 100 (2+) H (Neg-Trace) mg/dL Urine Glucose (UA) Negative (Negative) mg/dL All other labs normal. Procedures Date of Service Date of Service: 01/25/24
--- NOTE | 2024-01-25 09:45 | P.PNIM_ITS ---
Subjective Subjective Date of Service: 01/25/24 Interval History: seen and examined during dialysis reports diarrhea x 1 this AM, less compared to yesterday denies abd. pain, n/v; denies other complaints Review of Systems Negative except HPI/interval history. Physical Exam 2 Vital Signs: Vital Signs: Last Vital Signs Temp 98.4 F 01/25/24 07:49 Pulse 69 01/25/24 07:49 Resp 16 01/25/24 07:49 BP 112/62 01/25/24 07:49 Pulse Ox 99 01/25/24 07:49 O2 Del Method Room Air 01/25/24 07:49 BMI result Body Mass Index 23.7 Const: Other: General - no acute distress, appears comfortable Cardiovascular - regular rate and rhythm, S1-S2 Lungs - normal respiratory effort, clear to auscultation bilaterally, no wheezing Abdomen - soft, nontender, no rebound or guarding Extremities - no edema bilaterally Neuro - awake and alert, no focal deficits Objective Data Active Medications Acetaminophen (Acetaminophen 325 Mg Tablet) 975 mg PO Q6H PRN PRN Reason: Pain, Mild (Pain Scale 1-3), fever or headache Amiodarone HCl (Amiodarone Hcl 200 Mg Tablet) 200 mg PO DAILY [facility] Last Admin: 01/25/24 08:11 Dose: 200 mg Documented By: CY Apixaban (Apixaban 5 Mg Tablet) 5 mg PO BID [facility] Last Admin: 01/25/24 08:11 Dose: 5 mg Documented By: CY Ascorbic Acid (Ascorbic Acid 250 Mg Tablet) 250 mg PO BID [facility] Last Admin: 01/25/24 08:11 Dose: 250 mg Documented By: CY Atorvastatin Calcium (Atorvastatin Calcium 40 Mg Tablet) 40 mg PO DAILY [facility] Last Admin: 01/25/24 08:11 Dose: 40 mg Documented By: CY Ceftriaxone Sodium (Ceftriaxone Sodium 2 Gm Vial) 2 gm IVPUSH Q24H [facility] Ferrous Sulfate (Ferrous Sulfate 324 Mg Tablet.) 324 mg PO BID [facility] Last Admin: 01/25/24 08:11 Dose: 324 mg Documented By: CY Metoprolol Tartrate (Metoprolol Tartrate 100 Mg Tablet) 100 mg PO BID [facility]; Protocol Last Admin: 01/25/24 08:18 Dose: Not Given Documented By: CY Non-Admin Reason: Dialysis Multivitamins/Vitamin C (Multivitamin Tablet) 1 tab PO DAILY [facility] Last Admin: 01/25/24 08:11 Dose: 1 tab Documented By: CY Omeprazole (Omeprazole 20 Mg Capsule.) 20 mg PO BID@0630,1630 [facility] Last Admin: 01/25/24 05:35 Dose: 20 mg Documented By: BEREKET Sodium Chloride (0.9 % Sodium Chloride Flush 3 Ml Syringe) 3 ml IVFLUSH QSHIFT [facility] Last Admin: 01/25/24 08:11 Dose: 3 ml Documented By: CY Vancomycin HCl (Vancomycin Hcl 125 Mg Capsule) 125 mg PO Q6H [facility] Last Admin: 01/25/24 08:21 Dose: 125 mg Documented By: CY Labs 01/25/24 05:54 01/24/24 05:12 Labs: Laboratory Results - last 24 hr 01/25/24 05:54 MCV 94.8 MCH 30.7 MCHC 32.4 RDW 17.2 H Plt Count 159 L MPV 10.4 Absolute Nucleated RBC 0.000 Nucleated RBC % (auto) 0.0 Microbiology Microbiology Results: Microbiology 01/23/24 19:05 Blood Culture - Preliminary Blood - Venous Gram negative ramesh 01/23/24 Unknown Urine Culture - Final Urine clean catch - Clean Catch Midstream Klebsiella oxytoca 01/23/24 19:05 Blood Culture - Preliminary Blood - Venous No growth after 24 hours. Assessment and Plan (1) End stage renal disease: Status: Acute (2) Recto-vesical fistula: Status: Acute (3) C. difficile colitis: Status: Acute Plan 78 yo M presented with diarrhea, found to have c. diff and possible recto- vesicular fistula. Since admit, found to have GNR bacteremia 1. Severe diarrhea Due to C. Diff + ? EPEC (stool studies positive) continue vancomcyin; ID consult 2. GNR bacteremia continue rocephin -- will d/w pharmacy re: dosing question related to GI infection vs recto-vesicular fistula f/u culture data 3. UTI / pyelonephritis / ? recto-vesicular fistula growing klesiella - sensitive to ceftriaxone 4. ESRD HD MWF nephro on board 5. Chronic a. fib continue amio, metoprolol, eliquis 6. anemic of chronic disease hb above transfusion threshold epo per nephrology recs Full Code DVT pptx - eliquis Reason for continued hospitalization: Pt with GNR (pending sensitivies) + severe c. diff + possible recto-vesicular fistula still not improved Quality Stroke Does the patient have a stroke diagnosis?: No VTE Prior VTE?: No VTE Risk Level:: Medical - moderate - high VTE Device Contraindication: Treatment Not Indicated VTE Drug Contraindication: N/A - Med Ordered
--- NOTE | 2024-01-25 13:38 | MHC.CM.PN ---
PER MD ROUNDS, PT WILL LIKELY REMAIN INPT THROUGH THE WEEKEND. DCP HOME WITH RESUMPTION OF [facility] AND FAMILY SUPPORT FAMILY TO TRANSPORT
[2024-01-25 15:31] VITALS: BP 131/60; PULSE 78; RESP 17; TEMP 36.4; O2SAT 99
[2024-01-25 19:55] VITALS: BP 149/71; PULSE 94; RESP 22; TEMP 36.7; O2SAT 100
[2024-01-25] MEDS: cefTRIAXone sodium 1 GM VIAL IVPUSH (20:14)
[2024-01-25] MEDS: Metoprolol Tartrate 100 MG TABLET PO (20:14)
[2024-01-25 23:32] VITALS: BP 119/57; PULSE 63; RESP 18; TEMP 36.4; O2SAT 98
[2024-01-26] MEDS: 0.9 % Sodium Chloride Flush 3 ML SYRINGE IVFLUSH ×3 (00:51→15:26)
[2024-01-26 03:38] VITALS: BP 168/73; PULSE 63; RESP 18; TEMP 36.2; O2SAT 100
[2024-01-26] MEDS: vancomycin HCL 125 MG CAPSULE PO ×4 (05:00→20:16)
[2024-01-26] MEDS: Omeprazole 20 MG CAPSULE.DR PO ×2 (05:48→15:26)
--- NOTE | 2024-01-26 06:30 | P.PNNP_ITS ---
Subjective Subjective Date of Service: 01/26/24 Interval history: pt wants his [place] out, states feels uncomfortable, explained the importance due to concern for recto vesical fistula Physical Exam 2 Vital Signs: Vital Signs: Last Vital Signs Temp 97.2 F 01/26/24 03:38 Pulse 63 01/26/24 03:38 Resp 18 01/26/24 03:38 BP 168/73 H 01/26/24 03:38 Pulse Ox 100 01/26/24 03:38 O2 Del Method Room Air 01/26/24 03:38 BMI result Body Mass Index 23.7 cvs: s1s2 Rs; cta ABd; soft [place] insitu Objective Data Labs 01/26/24 05:44 01/24/24 05:12 Microbiology Microbiology Results: Microbiology 01/23/24 19:05 Blood - Venous Blood Culture - Preliminary No growth after 48 hours. 01/23/24 19:05 Blood - Venous Blood Culture - Preliminary Gram negative ramesh 01/23/24 Unknown Urine clean catch - Clean Catch Midstream Urine Culture - Final Klebsiella oxytoca Procedures Date of Service Date of Service: 01/26/24 Assessment & Plan Assessment and plan (1) End stage renal disease: Status: Acute (2) Recto-vesical fistula: Status: Acute Plan 1. ESRD on HD - schedule: // at [facility] D[facility] - access: IJ PermCath - dialysis mwf 2. Cdiff - on abx - improving 3. anemia of ckd - monitor - hb 7.7 now procrit per protocol prbc for hb< 7 4. concern for recto vesical fistula - planned cysto 01/27 with uro 5. gnr bacteremia on abx Plan next HD on sunday Time Spent With Patient Time: Total time managing care of this patient today ____ minutes. Progress Note: Quality Stroke Does the patient have a stroke diagnosis?: No
[2024-01-26 06:58] LABS: Hematocrit 23.2 % (42.0-52.0); Hemoglobin 7.5 g/dl (14.0-18.0); Mean Corpuscular HGB Conc 32.3 g/dl (31.0-36.0); Mean Corpuscular Hemoglobin 31.1 pg (27.0-33.0); Mean Corpuscular Volume 96.3 fL (80.0-98.0); Mean Platelet Volume 10.3 fL (9.4-12.4); Platelet Count 174 X10*3/uL (160-400); Red Blood Count 2.41 X10*6/uL (4.60-5.80); Red Cell Distribution Width 17.6 % (11.0-16.0); White Blood Count 12.4 X10*3/uL (4.8-10.8)
[2024-01-26 08:00] VITALS: BP 145/67; PULSE 60; RESP 14; TEMP 36.7; O2SAT 99
--- NOTE | 2024-01-26 08:04 | P.PNIM_ITS ---
Subjective Subjective Date of Service: 01/26/24 Interval History: seen and examined diarrhea improving Review of Systems Negative except HPI/interval history. Physical Exam 2 Vital Signs: Vital Signs: Last Vital Signs Temp 98.1 F 01/26/24 08:00 Pulse 60 01/26/24 08:00 Resp 14 01/26/24 08:00 BP 145/67 H 01/26/24 08:00 Pulse Ox 99 01/26/24 08:00 O2 Del Method Room Air 01/26/24 08:00 BMI result Body Mass Index 23.7 Const: Other: General - no acute distress, appears comfortable Cardiovascular - regular rate and rhythm, S1-S2 Lungs - normal respiratory effort, clear to auscultation bilaterally, no wheezing Abdomen - soft, nontender, no rebound or guarding Extremities - no edema bilaterally Neuro - awake and alert, no focal deficits Objective Data Active Medications Acetaminophen (Acetaminophen 325 Mg Tablet) 975 mg PO Q6H PRN PRN Reason: Pain, Mild (Pain Scale 1-3), fever or headache Amiodarone HCl (Amiodarone Hcl 200 Mg Tablet) 200 mg PO DAILY [facility] Last Admin: 01/25/24 08:11 Dose: 200 mg Documented By: CY Apixaban (Apixaban 5 Mg Tablet) 5 mg PO BID [facility] Last Admin: 01/25/24 20:14 Dose: 5 mg Documented By: JESUS Ascorbic Acid (Ascorbic Acid 250 Mg Tablet) 250 mg PO BID [facility] Last Admin: 01/25/24 20:13 Dose: 250 mg Documented By: JESUS Atorvastatin Calcium (Atorvastatin Calcium 40 Mg Tablet) 40 mg PO DAILY [facility] Last Admin: 01/25/24 08:11 Dose: 40 mg Documented By: CY Ceftriaxone Sodium (Ceftriaxone Sodium 1 Gm Vial) 1 gm IVPUSH Q24H [facility] Last Admin: 01/25/24 20:14 Dose: 1 gm Documented By: JESUS Ferrous Sulfate (Ferrous Sulfate 324 Mg Tablet.) 324 mg PO BID [facility] Last Admin: 01/25/24 20:14 Dose: 324 mg Documented By: JESUS Metoprolol Tartrate (Metoprolol Tartrate 100 Mg Tablet) 100 mg PO BID [facility]; Protocol Last Admin: 01/25/24 20:14 Dose: 100 mg Documented By: JESUS Multivitamins/Vitamin C (Multivitamin Tablet) 1 tab PO DAILY [facility] Last Admin: 01/25/24 08:11 Dose: 1 tab Documented By: CY Omeprazole (Omeprazole 20 Mg Capsule.) 20 mg PO BID@0630,1630 [facility] Last Admin: 01/26/24 05:48 Dose: 20 mg Documented By: JESUS Sodium Chloride (0.9 % Sodium Chloride Flush 3 Ml Syringe) 3 ml IVFLUSH QSHIFT [facility] Last Admin: 01/26/24 00:51 Dose: 3 ml Documented By: JESUS Vancomycin HCl (Vancomycin Hcl 125 Mg Capsule) 125 mg PO Q6H [facility] Last Admin: 01/26/24 05:00 Dose: 125 mg Documented By: JESUS Labs 01/26/24 05:44 01/24/24 05:12 Labs: Laboratory Results - last 24 hr 01/26/24 05:44 MCV 96.3 MCH 31.1 MCHC 32.3 RDW 17.6 H Plt Count 174 MPV 10.3 Absolute Nucleated RBC 0.000 Nucleated RBC % (auto) 0.0 Microbiology Microbiology Results: Microbiology 01/23/24 19:05 Blood Culture - Preliminary Blood - Venous No growth after 48 hours. 01/23/24 19:05 Blood Culture - Preliminary Blood - Venous Gram negative ramesh 01/23/24 Unknown Urine Culture - Final Urine clean catch - Clean Catch Midstream Klebsiella oxytoca Assessment and Plan (1) End stage renal disease: Status: Acute (2) Recto-vesical fistula: Status: Acute (3) C. difficile colitis: Status: Acute Plan 78 yo M presented with diarrhea, found to have c. diff and possible recto- vesicular fistula. Since admit, found to have GNR bacteremia 1. Severe diarrhea improving Due to C. Diff + ? EPEC (stool studies positive) continue vancomcyin await ID input 2. GNR bacteremia continue rocephin - question related to GI infection vs recto-vesicular fistula f/u culture data - still no speciation 3. UTI / pyelonephritis / ? recto-vesicular fistula growing klesiella - sensitive to ceftriaxone Gen surg consulted -- recs to ask urology consult (placed) 4. ESRD HD MWF nephro on board 5. Chronic a. fib continue amio, metoprolol, eliquis 6. anemic of chronic disease hb above transfusion threshold epo per nephrology recs Full Code DVT pptx - eliquis Reason for continued hospitalization: Pt with GNR (pending sensitivies) + severe c. diff + possible recto-vesicular fistula, needs ID and urology eval Quality Stroke Does the patient have a stroke diagnosis?: No VTE Prior VTE?: No VTE Risk Level:: Medical - moderate - high VTE Device Contraindication: Treatment Not Indicated VTE Drug Contraindication: N/A - Med Ordered
[2024-01-26 09:22] VITALS: BP 145/67; PULSE 60
[2024-01-26] MEDS: Ferrous Sulfate 324 MG TABLET.DR PO ×2 (09:22→20:16)
[2024-01-26] MEDS: Atorvastatin Calcium 40 MG TABLET PO (09:22)
[2024-01-26] MEDS: Ascorbic Acid 250 MG TABLET PO ×2 (09:22→20:16)
[2024-01-26] MEDS: Amiodarone HCL 200 MG TABLET PO (09:22)
[2024-01-26] MEDS: Apixaban 5 MG TABLET PO ×2 (09:22→20:16)
[2024-01-26] MEDS: Metoprolol Tartrate 100 MG TABLET PO ×2 (09:22→20:16)
[2024-01-26] MEDS: Multivitamin TABLET 1 TAB PO (09:22)
--- NOTE | 2024-01-26 11:00 | PC.NURSE ---
[place] cath inserted as per Md Kapadia order, for question of vesicular fistula . Pt is a HD patient no return of urine with insertion ,MD Kapadia notified . awaiting urology consult
[2024-01-26 11:28] VITALS: BP 122/62; PULSE 60; RESP 16; TEMP 36.9; O2SAT 98
[2024-01-26 15:04] VITALS: BP 118/59; PULSE 61; RESP 16; TEMP 36.1; O2SAT 100
[2024-01-26 18:59] VITALS: BP 125/61; PULSE 64; RESP 16; TEMP 36.1; O2SAT 98
[2024-01-26] MEDS: cefTRIAXone sodium 1 GM VIAL IVPUSH (20:16)
--- NOTE | 2024-01-26 23:12 | W.PM.IDCN ---
History of Present Illness Data of Consult Service Date: 01/25/24 Requesting physician: Mando Kapadia Primary Care Provider: Joao Duncan HPI Reason for consult: concern for rectovesicular fistula,severe Cdiff,possible Klebsiella UTI He presents to ER with diarrhea 10-14 times a day,watery. He has this about 10 days and was seen at [facility] as well. He has Cdiff here and also more than 100,000 Klebsiella oxytoca in urine. He has concern over vesiculorectal fistula on CT. He has h/o rectal cancer with reversed colostomy. He has ESRD and is on HD. He also has atrial fibrillation and sick sinus syndrome. Review of Systems Review of Systems: Yes Unobtainable due to mental condition PMFSH Past Medical History Medical History End stage renal disease Sick sinus syndrome Postoperative hematoma involving digestive system following digestive system procedure Aftercare following left shoulder joint replacement surgery Pacemaker OA (osteoarthritis) Borderline hyperlipidemia Obesity HTN (hypertension) EtOH dependence Mild cognitive impairment Inhibited sex excitement Atrial fibrillation Cancer of kidney High cholesterol Hypertension Family History Family History Mother Heart problem Family history: reviewed and not pertinent Social History Social History Household Members: Spouse Housing: House Do you presently have visiting nurse or other home services: No (had [facility] scheduled but did not see them) Alcohol intake: former Comment: refusing alarms Patient Tobacco Use Status: Former Tobacco user Tobacco use type: Cigarette Smoked in Last 30 Days: No e-Cigarette/Vaping Use: Never Used Use of substances other than those prescribed or required for medical reasons: No Currently Displaying Signs/Symptoms of Drug Intoxication Withdrawal: No Have you been hit, kicked, punched, or otherwise hurt by someone within the past year? If so, by whom?: No Advance Directives: Yes Advance Directives on File: Yes Advance Directives Date on File: 11/29/22 Do you have a plan to hurt others: No Plan Recently lost weight without trying: No Eating poorly because of decreased appetite: No Nutrition Risks: No Nutritional Risk Poor oral hygiene: No service: No Meds Allergies Allergy/AdvReac Type Severity Reaction Status Date / Time No Known Allergies [NKA] Allergy Mild NOT Verified 01/23/24 11:42 APPLICABLE Active Medications: Current Medications Acetaminophen (Acetaminophen 325 Mg Tablet) 975 mg PO Q6H PRN PRN Reason: Pain, Mild (Pain Scale 1-3), fever or headache Amiodarone HCl (Amiodarone Hcl 200 Mg Tablet) 200 mg PO DAILY [facility] Last Admin: 01/26/24 09:22 Dose: 200 mg Apixaban (Apixaban 5 Mg Tablet) 5 mg PO BID [facility] Last Admin: 01/26/24 20:16 Dose: 5 mg Ascorbic Acid (Ascorbic Acid 250 Mg Tablet) 250 mg PO BID [facility] Last Admin: 01/26/24 20:16 Dose: 250 mg Atorvastatin Calcium (Atorvastatin Calcium 40 Mg Tablet) 40 mg PO DAILY [facility] Last Admin: 01/26/24 09:22 Dose: 40 mg Ceftriaxone Sodium (Ceftriaxone Sodium 1 Gm Vial) 1 gm IVPUSH Q24H [facility] Last Admin: 01/26/24 20:16 Dose: 1 gm Ferrous Sulfate (Ferrous Sulfate 324 Mg Tablet.) 324 mg PO BID [facility] Last Admin: 01/26/24 20:16 Dose: 324 mg Metoprolol Tartrate (Metoprolol Tartrate 100 Mg Tablet) 100 mg PO BID [facility]; Protocol Last Admin: 01/26/24 20:16 Dose: 100 mg Multivitamins/Vitamin C (Multivitamin Tablet) 1 tab PO DAILY [facility] Last Admin: 01/26/24 09:22 Dose: 1 tab Omeprazole (Omeprazole 20 Mg Capsule.) 20 mg PO BID@0630,1630 [facility] Last Admin: 01/26/24 15:26 Dose: 20 mg Sodium Chloride (0.9 % Sodium Chloride Flush 3 Ml Syringe) 3 ml IVFLUSH QSHIFT [facility] Last Admin: 01/26/24 15:26 Dose: 3 ml Vancomycin HCl (Vancomycin Hcl 125 Mg Capsule) 125 mg PO Q6H [facility] Last Admin: 01/26/24 20:16 Dose: 125 mg Home Medications ?Medication ?Instructions ?Recorded ?Confirmed ?Last Taken ?Type acetaminophen 325 mg tablet 325 mg PO QID PRN Pain 11/25/23 01/24/24 01/23/24 History atorvastatin 40 mg tablet 40 mg PO DAILY 01/24/24 01/24/24 01/23/24 History multivitamin 1 tab PO DAILY 01/24/24 01/24/24 01/23/24 History Physical Exam Vital Signs: Vital Signs: Last Vital Signs Temp 96.9 F 01/26/24 18:59 Pulse 64 01/26/24 18:59 Resp 16 01/26/24 18:59 BP 125/61 01/26/24 18:59 Pulse Ox 98 01/26/24 18:59 O2 Del Method Room Air 01/26/24 18:59 BMI result Body Mass Index 23.7 Const: General: cooperative HEENT: Head: Yes normal to inspection Face and sinus: Yes normal facial exam Mouth: Normal oral and palatal mucosa present Teeth and gingiva: dentition normal Eyes: General: appearance normal, both eyes and all related structures Pupils: Equal, round and reactive pupils present Resp: Effort & Inspection: normal respiratory effort Cardio: Rate: regular rate Rhythm: regular rhythm GI: Palpation (GI): Soft to palpation and nontender : General: Yes no CVA tenderness Back/Spine/Pelvis: Back: no CVA tenderness Skin: General skin exam: no rashes or lesions noted Neuro: General: moves all extremities Cranial nerves: Yes Equal, round and reactive pupils present Extrem: General: Yes normal to inspection Psych: Other: sleepy Results Labs 01/26/24 05:44 01/24/24 05:12 Labs: Short CBC 01/26/24 Range/Units 05:44 WBC 12.4 H (4.8-10.8) X10*3/uL Hgb 7.5 L (14.0-18.0) g/dl Hct 23.2 L (42.0-52.0) % Plt Count 174 (160-400) X10*3/uL Microbiology Microbiology Results: Microbiology 01/23/24 19:05 Blood - Venous Blood Culture - Final Escherichia coli 01/23/24 19:05 Blood - Venous Blood Culture - Preliminary No growth after 48 hours. 01/23/24 Unknown Urine clean catch - Clean Catch Midstream Urine Culture - Final Klebsiella oxytoca Assessment and Plan (1) End stage renal disease: Status: Acute (2) Recto-vesical fistula: Status: Acute (3) Acute pyelonephritis: Status: Acute (4) C. difficile colitis: Status: Acute Plan He has unfortunately both urinary tract and fistula concerns as well as severe,persistent Cdiff with WBC over 12.5. Ceftriaxone will likely work for urine infection,but there is some resistance to other cephalosporins. He has WBC elevation and this is in part due to Cdiff, severe. Would add flagyl to po Vancomycin as well as Ceftriaxone. Probable 3-5 d flagyl IV and Vancomycin 14 d and Ceftriaxone 7 d. Urology and/or Surgery to evaluate above ?fistula
[2024-01-27] VITALS (7 sets, daily range): BP systolic 114–144; BP diastolic 60–69; PULSE 60–78; RESP 16–18; TEMP 35.9–36.5; O2SAT 98–100
[2024-01-27] MEDS: metroNIDAZOLE/NS 500 MG/100 ML PIGGYBACK 100 MG IV ×3 (00:34→23:24)
[2024-01-27] MEDS: 0.9 % Sodium Chloride Flush 3 ML SYRINGE IVFLUSH ×3 (00:35→16:09)
[2024-01-27] MEDS: vancomycin HCL 125 MG CAPSULE PO ×4 (04:00→21:27)
[2024-01-27] MEDS: Omeprazole 20 MG CAPSULE.DR PO ×2 (06:40→16:09)
[2024-01-27 07:28] LABS: Hematocrit 25.9 % (42.0-52.0); Hemoglobin 8.1 g/dl (14.0-18.0); Mean Corpuscular HGB Conc 31.3 g/dl (31.0-36.0); Mean Corpuscular Volume 99.2 fL (80.0-98.0); Mean Platelet Volume 10.3 fL (9.4-12.4); Platelet Count 155 X10*3/uL (160-400); Red Blood Count 2.61 X10*6/uL (4.60-5.80); Red Cell Distribution Width 17.7 % (11.0-16.0); White Blood Count 14.3 X10*3/uL (4.8-10.8)
[2024-01-27] MEDS: Ascorbic Acid 250 MG TABLET PO ×2 (08:17→21:27)
[2024-01-27] MEDS: Ferrous Sulfate 324 MG TABLET.DR PO ×2 (08:17→21:27)
[2024-01-27] MEDS: Atorvastatin Calcium 40 MG TABLET PO (08:17)
[2024-01-27] MEDS: Amiodarone HCL 200 MG TABLET PO (08:17)
[2024-01-27] MEDS: Multivitamin TABLET 1 TAB PO (08:17)
[2024-01-27] MEDS: Metoprolol Tartrate 100 MG TABLET PO ×2 (08:17→21:27)
[2024-01-27] MEDS: Apixaban 5 MG TABLET PO ×2 (08:17→21:27)
--- NOTE | 2024-01-27 11:00 | PC.NURSE ---
monroe cath removed as per pt request and Md Kapadia order. pt aware he will be NPO after midnight for cysto in the morning.
--- NOTE | 2024-01-27 11:27 | P.PNIM_ITS ---
Subjective Subjective Date of Service: 01/27/24 Interval History: seen and examined with manager customer services this AM reports he wants his monroe out, it is too uncomfortable and wasnt able to sleep due to it explained to him the reasoning for it, but still would like it removed reports stool is starting to become more formed, but still going frequently Physical Exam 2 Vital Signs: Vital Signs: Last Vital Signs Temp 96.9 F 01/27/24 07:25 Pulse 64 01/27/24 07:25 Resp 16 01/27/24 07:25 BP 141/68 H 01/27/24 07:25 Pulse Ox 98 01/27/24 04:00 O2 Del Method Room Air 01/27/24 04:00 BMI result Body Mass Index 23.7 Const: Other: General - no acute distress, appears comfortable Cardiovascular - regular rate and rhythm, S1-S2 Lungs - normal respiratory effort, clear to auscultation bilaterally, no wheezing Abdomen - soft, nontender, no rebound or guarding Extremities - no edema bilaterally Neuro - awake and alert, no focal deficits Objective Data Active Medications Acetaminophen (Acetaminophen 325 Mg Tablet) 975 mg PO Q6H PRN PRN Reason: Pain, Mild (Pain Scale 1-3), fever or headache Amiodarone HCl (Amiodarone Hcl 200 Mg Tablet) 200 mg PO DAILY [facility] Last Admin: 01/27/24 08:17 Dose: 200 mg Documented By: KADY Apixaban (Apixaban 5 Mg Tablet) 5 mg PO BID [facility] Last Admin: 01/27/24 08:17 Dose: 5 mg Documented By: KADY Ascorbic Acid (Ascorbic Acid 250 Mg Tablet) 250 mg PO BID [facility] Last Admin: 01/27/24 08:17 Dose: 250 mg Documented By: KADY Atorvastatin Calcium (Atorvastatin Calcium 40 Mg Tablet) 40 mg PO DAILY [facility] Last Admin: 01/27/24 08:17 Dose: 40 mg Documented By: KADY Ceftriaxone Sodium (Ceftriaxone Sodium 1 Gm Vial) 1 gm IVPUSH Q24H [facility] Last Admin: 01/26/24 20:16 Dose: 1 gm Documented By: MARIO Ferrous Sulfate (Ferrous Sulfate 324 Mg Tablet.) 324 mg PO BID [facility] Last Admin: 01/27/24 08:17 Dose: 324 mg Documented By: KADY Metronidazole (Flagyl) 500 mg in 100 mls @ 100 mls/hr IV Q12H [facility] Last Infusion: 01/27/24 01:43 Dose: Infused Documented By: GWENDOLYN Metoprolol Tartrate (Metoprolol Tartrate 100 Mg Tablet) 100 mg PO BID [facility]; Protocol Last Admin: 01/27/24 08:17 Dose: 100 mg Documented By: KADY Multivitamins/Vitamin C (Multivitamin Tablet) 1 tab PO DAILY [facility] Last Admin: 01/27/24 08:17 Dose: 1 tab Documented By: KADY Omeprazole (Omeprazole 20 Mg Capsule.) 20 mg PO BID@0630,1630 [facility] Last Admin: 01/27/24 06:40 Dose: 20 mg Documented By: GWENDOLYN Sodium Chloride (0.9 % Sodium Chloride Flush 3 Ml Syringe) 3 ml IVFLUSH QSHIFT [facility] Last Admin: 01/27/24 08:17 Dose: 3 ml Documented By: KADY Vancomycin HCl (Vancomycin Hcl 125 Mg Capsule) 125 mg PO Q6H [facility] Last Admin: 01/27/24 08:17 Dose: 125 mg Documented By: KADY Labs 01/27/24 06:51 01/24/24 05:12 Labs: Laboratory Results - last 24 hr 01/27/24 06:51 MCV 99.2 H MCH 31.0 MCHC 31.3 RDW 17.7 H Plt Count 155 L MPV 10.3 Absolute Nucleated RBC 0.000 Nucleated RBC % (auto) 0.0 Microbiology Microbiology Results: Microbiology 01/23/24 19:05 Blood Culture - Final Blood - Venous Escherichia coli Assessment and Plan (1) End stage renal disease: Status: Acute (2) Recto-vesical fistula: Status: Acute (3) C. difficile colitis: Status: Acute Plan 78 yo M presented with diarrhea, found to have c. diff and possible recto- vesicular fistula. Since admit, found to have GNR bacteremia 1. Severe diarrhea improving Due to C. Diff + ? EPEC (stool studies positive) continue vancomcyin ID input appreciated 2. E. coli bacteremia continue rocephin - question related to GI infection vs recto-vesicular fistula ID recs appreicated: IV flagyl x 3-5d, vancomyin 14d, ceftriaxone 7 days 3. UTI / pyelonephritis / ? recto-vesicular fistula growing klesiella - sensitive to ceftriaxone Gen surg consulted -- recs to ask urology consult (placed) d/w urology -- recs for monroe with plan for cysto 01/27. Monroe order but pt requesting removal despite education on the need for it. 4. ESRD HD MWF nephro on board 5. Chronic a. fib continue amio, metoprolol, eliquis 6. anemic of chronic disease hb above transfusion threshold epo per nephrology recs Full Code DVT pptx - eliquis Reason for continued hospitalization: Pt with E. Coli bacteremia + severe c. diff + possible recto-vesicular fistula, plans for cysto Quality Stroke Does the patient have a stroke diagnosis?: No VTE Prior VTE?: No VTE Risk Level:: Medical - moderate - high VTE Device Contraindication: Treatment Not Indicated VTE Drug Contraindication: N/A - Med Ordered
[2024-01-27] MEDS: cefTRIAXone sodium 1 GM VIAL IVPUSH (21:28)
[2024-01-28] VITALS (12 sets, daily range): BP systolic 92–158; BP diastolic 53–71; PULSE 60–74; RESP 16–18; TEMP 36–36.7; O2SAT 96–100
[2024-01-28] MEDS: vancomycin HCL 125 MG CAPSULE PO ×3 (03:39→18:24)
[2024-01-28] MEDS: Omeprazole 20 MG CAPSULE.DR PO ×2 (05:28→15:37)
[2024-01-28] MEDS: Atorvastatin Calcium 40 MG TABLET PO (08:01)
[2024-01-28] MEDS: 0.9 % Sodium Chloride Flush 3 ML SYRINGE IVFLUSH ×2 (08:01→15:38)
[2024-01-28] MEDS: Multivitamin TABLET 1 TAB PO (08:01)
[2024-01-28] MEDS: Ascorbic Acid 250 MG TABLET PO ×2 (08:02→20:33)
[2024-01-28] MEDS: Ferrous Sulfate 324 MG TABLET.DR PO ×2 (08:02→20:33)
[2024-01-28 08:30] LABS: Hematocrit 24.5 % (42.0-52.0); Hemoglobin 7.7 g/dl (14.0-18.0); Mean Corpuscular HGB Conc 31.4 g/dl (31.0-36.0); Mean Corpuscular Hemoglobin 30.8 pg (27.0-33.0); Mean Platelet Volume 10.4 fL (9.4-12.4); Platelet Count 189 X10*3/uL (160-400); Red Cell Distribution Width 17.7 % (11.0-16.0); White Blood Count 11.5 X10*3/uL (4.8-10.8)
--- NOTE | 2024-01-28 10:22 | P.PNIM_ITS ---
Subjective Subjective Date of Service: 01/28/24 Interval History: seen and examined during dialysis reports stool is starting to form denies other complaints Review of Systems Negative except HPI/interval history. Physical Exam 2 Vital Signs: Vital Signs: Last Vital Signs Temp 96.8 F 01/28/24 07:40 Pulse 61 01/28/24 07:40 Resp 16 01/28/24 07:40 BP 158/71 H 01/28/24 07:40 Pulse Ox 100 01/28/24 07:40 O2 Del Method Room Air 01/28/24 07:40 BMI result Body Mass Index 23.7 Const: Other: General - no acute distress, appears comfortable Cardiovascular - regular rate and rhythm, S1-S2 Lungs - normal respiratory effort, clear to auscultation bilaterally, no wheezing Abdomen - soft, nontender, no rebound or guarding Extremities - no edema bilaterally Neuro - awake and alert, no focal deficits Objective Data Active Medications Acetaminophen (Acetaminophen 325 Mg Tablet) 975 mg PO Q6H PRN PRN Reason: Pain, Mild (Pain Scale 1-3), fever or headache Amiodarone HCl (Amiodarone Hcl 200 Mg Tablet) 200 mg PO DAILY [facility] Last Admin: 01/27/24 08:17 Dose: 200 mg Documented By: KADY Apixaban (Apixaban 5 Mg Tablet) 5 mg PO BID [facility] Last Admin: 01/27/24 21:27 Dose: 5 mg Documented By: RYANNE Ascorbic Acid (Ascorbic Acid 250 Mg Tablet) 250 mg PO BID [facility] Last Admin: 01/28/24 08:02 Dose: 250 mg Documented By: VENITA Atorvastatin Calcium (Atorvastatin Calcium 40 Mg Tablet) 40 mg PO DAILY [facility] Last Admin: 01/28/24 08:01 Dose: 40 mg Documented By: VENITA Ceftriaxone Sodium (Ceftriaxone Sodium 1 Gm Vial) 1 gm IVPUSH Q24H [facility] Last Admin: 01/27/24 21:28 Dose: 1 gm Documented By: RYANNE Ferrous Sulfate (Ferrous Sulfate 324 Mg Tablet.) 324 mg PO BID [facility] Last Admin: 01/28/24 08:02 Dose: 324 mg Documented By: VENITA Metronidazole (Flagyl) 500 mg in 100 mls @ 100 mls/hr IV Q12H [facility] Last Infusion: 01/28/24 00:35 Dose: Infused Documented By: RYANNE Metoprolol Tartrate (Metoprolol Tartrate 100 Mg Tablet) 100 mg PO BID [facility]; Protocol Last Admin: 01/27/24 21:27 Dose: 100 mg Documented By: RYANNE Multivitamins/Vitamin C (Multivitamin Tablet) 1 tab PO DAILY [facility] Last Admin: 01/28/24 08:01 Dose: 1 tab Documented By: VENITA Omeprazole (Omeprazole 20 Mg Capsule.) 20 mg PO BID@0630,1630 [facility] Last Admin: 01/28/24 05:28 Dose: 20 mg Documented By: RYANNE Sodium Chloride (0.9 % Sodium Chloride Flush 3 Ml Syringe) 3 ml IVFLUSH QSHIFT [facility] Last Admin: 01/28/24 08:01 Dose: 3 ml Documented By: VENITA Vancomycin HCl (Vancomycin Hcl 125 Mg Capsule) 125 mg PO Q6H [facility] Last Admin: 01/28/24 03:39 Dose: 125 mg Documented By: RYANNE Labs 01/28/24 08:07 01/24/24 05:12 Labs: Laboratory Results - last 24 hr 01/28/24 08:07 MCV 98.0 MCH 30.8 MCHC 31.4 RDW 17.7 H Plt Count 189 MPV 10.4 Absolute Nucleated RBC 0.000 Nucleated RBC % (auto) 0.0 Assessment and Plan (1) End stage renal disease: Status: Acute (2) Recto-vesical fistula: Status: Acute (3) C. difficile colitis: Status: Acute Plan 78 yo M presented with diarrhea, found to have c. diff and possible recto- vesicular fistula. Since admit, found to have GNR bacteremia 1. Severe diarrhea resolving Due to C. Diff + ? EPEC (stool studies positive) continue vancomcyin ID input appreciated 2. E. coli bacteremia continue rocephin - question related to GI infection vs recto-vesicular fistula ID recs appreicated: IV flagyl x 3-5d (currently day #2), vancomyin 14d(day #5), ceftriaxone 7d (day#5) 3. UTI / pyelonephritis / ? recto-vesicular fistula growing klesiella - sensitive to ceftriaxone Gen surg consulted -- recs to ask urology consult (placed) d/w urology -- recs for monroe with plan for cysto 01/27. Monroe order but pt requesting removal despite education on the need for it. cysto today 4. ESRD HD MWF nephro on board 5. Chronic a. fib continue amio, metoprolol, eliquis (hold today) 6. anemic of chronic disease hb above transfusion threshold epo per nephrology recs Full Code DVT pptx - eliquis Reason for continued hospitalization: Pt with E. Coli bacteremia + severe c. diff + possible recto-vesicular fistula, plans for cysto Quality Stroke Does the patient have a stroke diagnosis?: No VTE Prior VTE?: No VTE Risk Level:: Medical - moderate - high VTE Device Contraindication: Treatment Not Indicated VTE Drug Contraindication: N/A - Med Ordered
--- NOTE | 2024-01-28 11:11 | MHC.CM.PN ---
PER MD ROUNDS, PLAN FOR CYSTO TODAY AND POSSIBLE ACUTE TRANSFER PENDING RESULTS IF PT IS NOT TRANSFERRED, HE MAY BE READY TO DC TOMORROW DCP: HOME RESUME [employer] AND HD DAUGHTER TO TRANSPORT
[2024-01-28] MEDS: metroNIDAZOLE/NS 500 MG/100 ML PIGGYBACK 100 MG IV ×2 (13:07→23:06)
--- NOTE | 2024-01-28 15:38 | P.PNUR_ITS ---
Subjective Subjective Date of Service: 01/28/24 Interval history: Patient is seen today Plan for cystoscopy, right retrograde, possible stent Examination to evaluate for colovesical fistula Physical Exam 2 Vital Signs: Vital Signs: Last Vital Signs Temp 96.8 F 01/28/24 07:40 Pulse 74 01/28/24 13:06 Resp 18 01/28/24 13:06 BP 92/53 L 01/28/24 13:06 Pulse Ox 100 01/28/24 07:40 O2 Del Method Room Air 01/28/24 07:40 BMI result Body Mass Index 23.7 Const: General: cooperative, healthy appearing, comfortable and no acute distress Orientation/consciousness: patient oriented x3 HEENT: Face and sinus: Yes normal facial exam Mouth: moist mucous membranes Neck: Neck: Yes normal visual inspection, Yes full ROM and Yes trachea midline Chest: Chest palpation & inspection: normal inspection of the chest Resp: Effort & Inspection: normal respiratory effort, able to speak in complete sentences and no respiratory distress GI: Inspection: Yes normal to inspection Back/Spine/Pelvis: Cervical Spine: normal cervical lordosis Thoracic/Lumbar Spine: thoracic and lumbar spine normal to inspection Skin: General skin exam: no rashes or lesions noted Neuro: General: patient oriented x3, tone normal and moves all extremities Extrem: General: Yes normal to inspection and Yes capillary refill normal Urology Results Labs 01/28/24 08:07 01/24/24 05:12 Labs: Laboratory Results - last 24 hr 01/28/24 08:07 WBC 11.5 H RBC 2.50 L Hgb 7.7 L Hct 24.5 L MCV 98.0 MCH 30.8 MCHC 31.4 RDW 17.7 H Plt Count 189 MPV 10.4 Absolute Nucleated RBC 0.000 Nucleated RBC % (auto) 0.0 Progress Note: A&P Assessment and plan (1) Recto-vesical fistula: Status: Acute Plan Question of colovesical fistula versus ureteric colo fistula Risks, benefits and alternatives to therapy were discussed. These include but are not limited to infection, bleeding, damage to local organs and tissues, need for further interventions. Anesthetic risks regarding cardiac arrhythmia, blood clots, and potential mortality were discussed. The patient understands the typical recovery time and the outpatient nature of the procedure. After consideration of these risks the patient gives full informed consent and they wish to move ahead with the procedure. - cystoscopy, right retrograde, right stent placement. Bladder evaluation. Time Spent With Patient Time: Total time managing care of this patient today ____ minutes. Progress Note: Quality Stroke Does the patient have a stroke diagnosis?: No
--- NOTE | 2024-01-28 15:47 | PM.PNNEP ---
Subjective Subjective Date of Service: 01/28/24 Interval history: seen and examined during dialysis reports stool is starting to form denies other complaints Physical Exam Vital Signs: Vital Signs: Last Vital Signs Temp 96.8 F 01/28/24 07:40 Pulse 74 01/28/24 13:06 Resp 18 01/28/24 13:06 BP 92/53 L 01/28/24 13:06 Pulse Ox 100 01/28/24 07:40 O2 Del Method Room Air 01/28/24 07:40 BMI result Body Mass Index 23.7 Const: Other: General - no acute distress, appears comfortable Cardiovascular - regular rate and rhythm, S1-S2 Lungs - normal respiratory effort, clear to auscultation bilaterally, no wheezing Abdomen - soft, nontender, no rebound or guarding Extremities - no edema bilaterally Neuro - awake and alert, no focal deficits General: cooperative, healthy appearing, comfortable and no acute distress Orientation/consciousness: patient oriented x3 HEENT: Head: Yes normal to inspection Face and sinus: Yes normal facial exam Mouth: Normal oral and palatal mucosa present and moist mucous membranes Teeth and gingiva: dentition normal Eyes: General: appearance normal, both eyes and all related structures Pupils: Equal, round and reactive pupils present Neck: Neck: Yes normal visual inspection, Yes full ROM and Yes trachea midline Chest: Chest palpation & inspection: normal inspection of the chest Resp: Effort & Inspection: normal respiratory effort, able to speak in complete sentences and no respiratory distress Cardio: Rate: regular rate Rhythm: regular rhythm GI: Inspection: Yes normal to inspection Palpation (GI): Soft to palpation and nontender : General: Yes no CVA tenderness Back/Spine/Pelvis: Back: no CVA tenderness Cervical Spine: normal cervical lordosis Thoracic/Lumbar Spine: thoracic and lumbar spine normal to inspection Skin: General skin exam: no rashes or lesions noted Neuro: General: patient oriented x3, tone normal and moves all extremities Cranial nerves: Yes Equal, round and reactive pupils present Extrem: General: Yes normal to inspection and Yes capillary refill normal Psych: Other: sleepy Objective Data Labs 01/28/24 08:07 01/24/24 05:12 Labs: Laboratory Results - last 24 hr 01/28/24 08:07 WBC 11.5 H RBC 2.50 L Hgb 7.7 L Hct 24.5 L MCV 98.0 MCH 30.8 MCHC 31.4 RDW 17.7 H Plt Count 189 MPV 10.4 Absolute Nucleated RBC 0.000 Nucleated RBC % (auto) 0.0 Microbiology Microbiology Results: Microbiology 01/23/24 19:05 Blood - Venous Blood Culture - Final Escherichia coli 01/23/24 19:05 Blood - Venous Blood Culture - Preliminary No growth after 48 hours. 01/23/24 Unknown Urine clean catch - Clean Catch Midstream Urine Culture - Final Klebsiella oxytoca Procedures Date of Service Date of Service: 01/28/24 Assessment & Plan Assessment and plan (1) End stage renal disease: Status: Acute (2) Recto-vesical fistula: Status: Acute Plan 1. ESRD on HD - schedule: // at [facility] Dialysis - access: IJ PermCat - dialysis mwf 2. Cdiff - on abx - improving 3. anemia of ckd - monitor procrit per protocol prbc for hb< 7 4. concern for recto vesical fistula - planned cysto 01/27 with uro 5. gnr bacteremia on abx REC: ocnt HD 3x/wk mwf; epo as per protocol, ABX as noted Time Spent With Patient Time: Total time managing care of this patient today ____ minutes. Progress Note: Quality Stroke Does the patient have a stroke diagnosis?: No
--- NOTE | 2024-01-28 16:25 | P.CONAN_ITS ---
[facility] Active Problems Active Problems: All Active Problems End stage renal disease (Acute) Recto-vesical fistula (Acute) Acute pyelonephritis (Acute) C. difficile colitis (Acute) Physical deconditioning (Acute) Enteropathogenic Escherichia coli infection (Acute) UTI (urinary tract infection) (Acute) Acute renal failure (Acute) BPH (benign prostatic hyperplasia) (Acute) Renal cyst (Acute) Rectal carcinoma (Acute) Atrial fibrillation with rapid ventricular response (Acute) Chronic anticoagulation (Acute) Sinus bradycardia (Acute) Normocytic anemia (Acute) Encounter for interrogation of cardiac pacemaker (Acute) Rectal mass (Acute) Malignant neoplasm of rectum (Acute) Past Medical History Medical History End stage renal disease Sick sinus syndrome Postoperative hematoma involving digestive system following digestive system procedure Aftercare following left shoulder joint replacement surgery Pacemaker OA (osteoarthritis) Borderline hyperlipidemia Obesity HTN (hypertension) EtOH dependence Mild cognitive impairment Inhibited sex excitement Atrial fibrillation Cancer of kidney High cholesterol Hypertension Family History Family History Mother Heart problem Family history of problems with anesthesia: No Surgical History History of Problems with Anesthesia: No Social History Social History Household Members: Spouse Housing: House Do you presently have visiting nurse or other home services: No (had [facility] scheduled but did not see them) Alcohol intake: former Comment: refusing alarms Patient Tobacco Use Status: Former Tobacco user Tobacco use type: Cigarette Smoked in Last 30 Days: No e-Cigarette/Vaping Use: Never Used Use of substances other than those prescribed or required for medical reasons: No Currently Displaying Signs/Symptoms of Drug Intoxication Withdrawal: No Have you been hit, kicked, punched, or otherwise hurt by someone within the past year? If so, by whom?: No Advance Directives: Yes Advance Directives on File: Yes Advance Directives Date on File: 11/29/22 Do you have a plan to hurt others: No Plan Recently lost weight without trying: No Eating poorly because of decreased appetite: No Nutrition Risks: No Nutritional Risk Poor oral hygiene: No service: No Meds Allergies Allergy/AdvReac Type Severity Reaction Status Date / Time No Known Allergies [NKA] Allergy Mild NOT Verified 01/23/24 11:42 APPLICABLE Active Medications: Current Medications Acetaminophen (Acetaminophen 325 Mg Tablet) 975 mg PO Q6H PRN PRN Reason: Pain, Mild (Pain Scale 1-3), fever or headache Amiodarone HCl (Amiodarone Hcl 200 Mg Tablet) 200 mg PO DAILY [facility] Last Admin: 01/28/24 13:14 Dose: Not Given Apixaban (Apixaban 5 Mg Tablet) 5 mg PO BID [facility] Last Admin: 01/27/24 21:27 Dose: 5 mg Ascorbic Acid (Ascorbic Acid 250 Mg Tablet) 250 mg PO BID [facility] Last Admin: 01/28/24 08:02 Dose: 250 mg Atorvastatin Calcium (Atorvastatin Calcium 40 Mg Tablet) 40 mg PO DAILY [facility] Last Admin: 01/28/24 08:01 Dose: 40 mg Ceftriaxone Sodium (Ceftriaxone Sodium 1 Gm Vial) 1 gm IVPUSH Q24H [facility] Last Admin: 01/27/24 21:28 Dose: 1 gm Ferrous Sulfate (Ferrous Sulfate 324 Mg Tablet.) 324 mg PO BID [facility] Last Admin: 01/28/24 08:02 Dose: 324 mg Metronidazole (Flagyl) 500 mg in 100 mls @ 100 mls/hr IV Q12H [facility] Last Infusion: 01/28/24 14:14 Dose: Infused Calcium Gluconate (Calcium Gluconate) 1 gm in 50 mls @ 50 mls/hr IV ONCE ONE Stop: 01/28/24 16:58 Metoprolol Tartrate (Metoprolol Tartrate 100 Mg Tablet) 100 mg PO BID [facility]; Protocol Last Admin: 01/28/24 13:10 Dose: Not Given Multivitamins/Vitamin C (Multivitamin Tablet) 1 tab PO DAILY [facility] Last Admin: 01/28/24 08:01 Dose: 1 tab Omeprazole (Omeprazole 20 Mg Capsule.) 20 mg PO BID@0630,1630 [facility] Last Admin: 01/28/24 15:37 Dose: 20 mg Sodium Chloride (0.9 % Sodium Chloride Flush 3 Ml Syringe) 3 ml IVFLUSH QSHIFT [facility] Last Admin: 01/28/24 15:38 Dose: 3 ml Vancomycin HCl (Vancomycin Hcl 125 Mg Capsule) 125 mg PO Q6H [facility] Last Admin: 01/28/24 13:06 Dose: 125 mg Home Medications ?Medication ?Instructions ?Recorded ?Confirmed ?Last Taken ?Type acetaminophen 325 mg tablet 325 mg PO QID PRN Pain 11/25/23 01/24/24 01/23/24 History atorvastatin 40 mg tablet 40 mg PO DAILY 01/24/24 01/24/24 01/23/24 History multivitamin 1 tab PO DAILY 01/24/24 01/24/24 01/23/24 History Exam Height,Weight and Vital Signs: Height 5 ft 8 in Weight 70.8 kg Last Vital Signs Temp 96.9 F 01/28/24 15:42 Pulse 63 01/28/24 15:42 Resp 18 01/28/24 15:42 BP 114/57 L 01/28/24 15:42 Pulse Ox 96 01/28/24 15:42 O2 Del Method Room Air 01/28/24 15:42 Pertinent Lab Results Pertinent Lab Results: Laboratory Tests 01/23/24 01/23/24 01/23/24 13:12 13:13 13:37 WBC 23.0 H RBC 2.53 L Hgb 8.0 L Hct 24.2 L MCV 95.7 MCH 31.6 MCHC 33.1 RDW 17.6 H Plt Count 180 MPV 9.8 Immature Gran % (Auto) 2.4 H Neut % (Auto) 86.1 H Lymph % (Auto) 5.1 L Mcmullen % (Auto) 6.1 Eos % (Auto) 0.1 Baso % (Auto) 0.2 Lymph # (Auto) 1.2 Mcmullen # (Auto) 1.4 H Eos # (Auto) 0.0 Baso # (Auto) 0.1 Abs Immat Gran (auto) 0.56 H Absolute Neuts (auto) 19.8 H Absolute Nucleated RBC 0.000 Nucleated RBC % (auto) 0.0 Sodium 139 Potassium 3.2 L Chloride 100 Carbon Dioxide 29 Anion Gap 13 BUN 20 H Creatinine 3.35 H Estim Creat Clear Calc 17.8 Estimated GFR 18 Random Glucose 88 Lactic Acid Calcium 7.4 L Magnesium 1.6 Total Bilirubin 0.7 AST 15 ALT < 6 Alkaline Phosphatase 68 Total Protein 5.5 L Albumin 2.3 L Urine Color Dark Yellow Urine Appearance Turbid Urine pH 5.5 Ur Specific [place] 1.015 Urine Protein 100 (2+) H Urine Glucose (UA) Negative Urine Ketones Trace Urine Blood Moderate (2+) H Urine Nitrite Negative Ur Leukocyte Esterase Large (3+) H Urine RBC 3-5 H Urine WBC >50 H Ur Squamous Epith Cells 3-5 Urine Bacteria 4+ Hyaline Casts 3-5 Stl C. cayetanensis PCR Stool Rotavirus A PCR Stl Adenov F 40/41 PCR Stool Astrovirus (PCR) Stool Campylobacter PCR Stool Cryptosporidium PCR Stl Sh Tox Pr E STEC PCR Stool E coli O157 PCR Stl Enterotoxigenic E PCR Stool EPEC (PCR) Stool EAEC (PCR) Stl E. histolytica PCR Stool Giardia Lamblia PCR Stl P. shigelloides PCR Stool Salmonella PCR Stool Sapovirus (PCR) Stl Shigella/EIEC PCR St Y.enterocolitica PCR Stool Vibrio (PCR) Stl Vibrio cholerae PCR Stl Norovirus GI/GII PCR C. difficile Tox B Gene C. difficile Toxin A&B C. difficile Interpret Influenza Type A (PCR) NEGATIVE Influenza Type B (PCR) NEGATIVE RSV RNA Qual (PCR) NEGATIVE SARS-CoV-2 RNA (RT-PCR) NEGATIVE 01/23/24 01/23/24 01/24/24 19:04 21:12 05:12 WBC 22.2 H RBC 2.51 L Hgb 7.7 L Hct 24.4 L MCV 97.2 MCH 30.7 MCHC 31.6 RDW 17.3 H Plt Count 183 MPV 10.7 Immature Gran % (Auto) 2.3 H Neut % (Auto) 87.9 H Lymph % (Auto) 3.8 L Mcmullen % (Auto) 5.5 Eos % (Auto) 0.1 Baso % (Auto) 0.4 Lymph # (Auto) 0.8 L Mcmullen # (Auto) 1.2 Eos # (Auto) 0.0 Baso # (Auto) 0.1 Abs Immat Gran (auto) 0.50 H Absolute Neuts (auto) 19.5 H Absolute Nucleated RBC 0.000 Nucleated RBC % (auto) 0.0 Sodium 141 Potassium 3.1 L Chloride 104 Carbon Dioxide 21 L Anion Gap 19 BUN 24 H Creatinine 3.88 H Estim Creat Clear Calc 15.4 Estimated GFR 15 Random Glucose 64 Lactic Acid 1.6 Calcium 7.1 L Magnesium 1.7 Total Bilirubin AST ALT Alkaline Phosphatase Total Protein Albumin Urine Color Urine Appearance Urine pH Ur Specific [place] Urine Protein Urine Glucose (UA) Urine Ketones Urine Blood Urine Nitrite Ur Leukocyte Esterase Urine RBC Urine WBC Ur Squamous Epith Cells Urine Bacteria Hyaline Casts Stl C. cayetanensis PCR Not Detected Stool Rotavirus A PCR Not Detected Stl Adenov F 40/41 PCR Not Detected Stool Astrovirus (PCR) Not Detected Stool Campylobacter PCR Not Detected Stool Cryptosporidium PCR Not Detected Stl Sh Tox Pr E STEC PCR Not Detected Stool E coli O157 PCR Not applicable Stl Enterotoxigenic E PCR Not Detected Stool EPEC (PCR) Detected A Stool EAEC (PCR) Not Detected Stl E. histolytica PCR Not Detected Stool Giardia Lamblia PCR Not Detected Stl P. shigelloides PCR Not Detected Stool Salmonella PCR Not Detected Stool Sapovirus (PCR) Not Detected Stl Shigella/EIEC PCR Not Detected St Y.enterocolitica PCR Not Detected Stool Vibrio (PCR) Not Detected Stl Vibrio cholerae PCR Not Detected Stl Norovirus GI/GII PCR Not Detected C. difficile Tox B Gene POSITIVE A* C. difficile Toxin A&B Positive A* C. difficile Interpret SEE NOTE Influenza Type A (PCR) Influenza Type B (PCR) RSV RNA Qual (PCR) SARS-CoV-2 RNA (RT-PCR) 01/25/24 01/26/24 01/27/24 05:54 05:44 06:51 WBC 16.7 H 12.4 H 14.3 H RBC 2.31 L 2.41 L 2.61 L Hgb 7.1 L 7.5 L 8.1 L Hct 21.9 L 23.2 L 25.9 L MCV 94.8 96.3 99.2 H MCH 30.7 31.1 31.0 MCHC 32.4 32.3 31.3 RDW 17.2 H 17.6 H 17.7 H Plt Count 159 L 174 155 L MPV 10.4 10.3 10.3 Immature Gran % (Auto) Neut % (Auto) Lymph % (Auto) Mcmullen % (Auto) Eos % (Auto) Baso % (Auto) Lymph # (Auto) Mcmullen # (Auto) Eos # (Auto) Baso # (Auto) Abs Immat Gran (auto) Absolute Neuts (auto) Absolute Nucleated RBC 0.000 0.000 0.000 Nucleated RBC % (auto) 0.0 0.0 0.0 Sodium Potassium Chloride Carbon Dioxide Anion Gap BUN Creatinine Estim Creat Clear Calc Estimated GFR Random Glucose Lactic Acid Calcium Magnesium Total Bilirubin AST ALT Alkaline Phosphatase Total Protein Albumin Urine Color Urine Appearance Urine pH Ur Specific [place] Urine Protein Urine Glucose (UA) Urine Ketones Urine Blood Urine Nitrite Ur Leukocyte Esterase Urine RBC Urine WBC Ur Squamous Epith Cells Urine Bacteria Hyaline Casts Stl C. cayetanensis PCR Stool Rotavirus A PCR Stl Adenov PCR Stool Astrovirus (PCR) Stool Campylobacter PCR Stool Cryptosporidium PCR Stl Sh Tox Pr E STEC PCR Stool E coli O157 PCR Stl Enterotoxigenic E PCR Stool EPEC (PCR) Stool EAEC (PCR) Stl E. histolytica PCR Stool Giardia Lamblia PCR Stl P. shigelloides PCR Stool Salmonella PCR Stool Sapovirus (PCR) Stl Shigella/EIEC PCR St Y.enterocolitica PCR Stool Vibrio (PCR) Stl Vibrio cholerae PCR Stl Norovirus GI/GII PCR C. difficile Tox B Gene C. difficile Toxin A&B C. difficile Interpret Influenza Type A (PCR) Influenza Type B (PCR) RSV RNA Qual (PCR) SARS-CoV-2 RNA (RT-PCR) 01/28/24 08:07 WBC 11.5 H RBC 2.50 L Hgb 7.7 L Hct 24.5 L MCV 98.0 MCH 30.8 MCHC 31.4 RDW 17.7 H Plt Count 189 MPV 10.4 Immature Gran % (Auto) Neut % (Auto) Lymph % (Auto) Mcmullen % (Auto) Eos % (Auto) Baso % (Auto) Lymph # (Auto) Mcmullen # (Auto) Eos # (Auto) Baso # (Auto) Abs Immat Gran (auto) Absolute Neuts (auto) Absolute Nucleated RBC 0.000 Nucleated RBC % (auto) 0.0 Sodium Potassium Chloride Carbon Dioxide Anion Gap BUN Creatinine Estim Creat Clear Calc Estimated GFR Random Glucose Lactic Acid Calcium Magnesium Total Bilirubin AST ALT Alkaline Phosphatase Total Protein Albumin Urine Color Urine Appearance Urine pH Ur Specific [place] Urine Protein Urine Glucose (UA) Urine Ketones Urine Blood Urine Nitrite Ur Leukocyte Esterase Urine RBC Urine WBC Ur Squamous Epith Cells Urine Bacteria Hyaline Casts Stl C. cayetanensis PCR Stool Rotavirus A PCR Stl Adenov PCR Stool Astrovirus (PCR) Stool Campylobacter PCR Stool Cryptosporidium PCR Stl Sh Tox Pr E STEC PCR Stool E coli O157 PCR Stl Enterotoxigenic E PCR Stool EPEC (PCR) Stool EAEC (PCR) Stl E. histolytica PCR Stool Giardia Lamblia PCR Stl P. shigelloides PCR Stool Salmonella PCR Stool Sapovirus (PCR) Stl Shigella/EIEC PCR St Y.enterocolitica PCR Stool Vibrio (PCR) Stl Vibrio cholerae PCR Stl Norovirus GI/GII PCR C. difficile Tox B Gene C. difficile Toxin A&B C. difficile Interpret Influenza Type A (PCR) Influenza Type B (PCR) RSV RNA Qual (PCR) SARS-CoV-2 RNA (RT-PCR) Airway Mallampati Class: II TM Dist: >3cm Neck ROM: Full Heart: rrr Lungs: cta Assessment and Plan Assessment Anesthesia Assessment: Anesthesia Plan Discussed and Chart Reviewed Final Anesthetic Review Family History of Problems with Anesthesia: No History of Problems with Anesthesia: No NPO: Yes ASA Class: III Final Preanesthetic Review: No Changes in Pt Med Stat, Meds/Allgs Chart Reviewed and Consent Obtained/Reviewed Patient Risk: Intermediate Procedure Risk: Low Anesthetic Plan Anesthetic Plan: GA Disposition: Standard PACU
[2024-01-28] MEDS: Lactated Ringers 1,000 ML 50 ML IVCONT (18:10)
[2024-01-28] MEDS: Apixaban 5 MG TABLET PO (20:32)
[2024-01-28] MEDS: cefTRIAXone sodium 1 GM VIAL IVPUSH (20:33)
[2024-01-29] MEDS: vancomycin HCL 125 MG CAPSULE PO ×3 (00:24→12:04)
[2024-01-29 03:29] VITALS: BP 116/55; PULSE 61; RESP 17; TEMP 36.1; O2SAT 99
[2024-01-29] MEDS: Omeprazole 20 MG CAPSULE.DR PO (06:07)
--- NOTE | 2024-01-29 07:21 | P.PNNP_ITS ---
Subjective Subjective Date of Service: 01/29/24 Interval history: seen and examined during dialysis reports stool is starting to form denies other complaints Physical Exam 2 Vital Signs: Vital Signs: Last Vital Signs Temp 97.0 F 01/29/24 03:29 Pulse 61 01/29/24 03:29 Resp 17 01/29/24 03:29 BP 116/55 L 01/29/24 03:29 Pulse Ox 99 01/29/24 03:29 O2 Del Method Room Air 01/29/24 03:29 BMI result Body Mass Index 23.7 Objective Data Labs 01/28/24 08:07 01/24/24 05:12 Labs: Laboratory Results - last 24 hr 01/28/24 08:07 WBC 11.5 H RBC 2.50 L Hgb 7.7 L Hct 24.5 L MCV 98.0 MCH 30.8 MCHC 31.4 RDW 17.7 H Plt Count 189 MPV 10.4 Absolute Nucleated RBC 0.000 Nucleated RBC % (auto) 0.0 Microbiology Microbiology Results: Microbiology 01/23/24 19:05 Blood - Venous Blood Culture - Final No growth after 5 days. 01/23/24 19:05 Blood - Venous Blood Culture - Final Escherichia coli 01/23/24 Unknown Urine clean catch - Clean Catch Midstream Urine Culture - Final Klebsiella oxytoca Procedures Date of Service Date of Service: 01/29/24 Assessment & Plan Assessment and plan (1) End stage renal disease: Status: Acute (2) Recto-vesical fistula: Status: Acute Plan 1. ESRD on HD - schedule: // at [facility] - access: IJ PermCat - dialysis mwf 2. Cdiff - on abx - improving 3. anemia of ckd - monitor procrit per protocol prbc for hb< 7 4. concern for recto vesical fistula - cysto 01/27 with uro 5. gnr bacteremia on abx REC: ocnt HD 3x/wk mwf; ABX as noted Time Spent With Patient Time: Total time managing care of this patient today ____ minutes. Progress Note: Quality Stroke Does the patient have a stroke diagnosis?: No
[2024-01-29 07:49] VITALS: BP 109/58; PULSE 64; RESP 16; TEMP 36.2; O2SAT 100
[2024-01-29 08:55] VITALS: BP 121/58; PULSE 62; RESP 16; TEMP 36.1; O2SAT 100
[2024-01-29 09:09] LABS: Anion Gap 10 (12-20); Blood Urea Nitrogen 12 mg/dL (9-16); Calcium 7.5 mg/dL (8.4-10.2); Carbon Dioxide 23 mmol/L (22-29); Chloride 105 mmol/L (96-108); Creatinine Clr Calc Pharmacy 18.5; Estimated Glomerular Filt Rate 19; Glucose Random 89 mg/dL (60-115); Potassium 3.4 mmol/L (3.3-5.1); Sodium 135 mmol/L (135-145)
[2024-01-29] MEDS: Atorvastatin Calcium 40 MG TABLET PO (09:26)
[2024-01-29] MEDS: Amiodarone HCL 200 MG TABLET PO (09:26)
[2024-01-29] MEDS: Ferrous Sulfate 324 MG TABLET.DR PO (09:26)
[2024-01-29] MEDS: Apixaban 5 MG TABLET PO (09:26)
[2024-01-29] MEDS: Ascorbic Acid 250 MG TABLET PO (09:26)
[2024-01-29] MEDS: Metoprolol Tartrate 100 MG TABLET PO (09:26)
[2024-01-29] MEDS: Multivitamin TABLET 1 TAB PO (09:26)
--- NOTE | 2024-01-29 10:46 | PM.DS ---
DS: Providers Provider Date of Service: 01/29/24 Date of admission: 01/24/24 02:53 Primary care physician: Joao Duncan Consults: 01/23/24 23:01 Consult to Infectious Diseases Routine Consulting Provider: Marily German Reason for consultation: c diff Has provider been notified: Yes 01/24/24 02:55 Consult to Infectious Diseases Routine Consulting Provider: Marily German Reason for consultation: c diff Has provider been notified: No 01/24/24 08:06 Consult to General Surgery Routine Consulting Provider: [facility] Reason for consultation: recto-vesicular vistula Has provider been notified: No 01/24/24 08:16 Consult to Nephrology Routine Consulting Provider: [facility] Reason for consultation: ckd on HD Has provider been notified: No 01/26/24 07:29 Consult to Urology Routine Consulting Provider: [facility] Reason for consultation: questio recto-vesicular fistula DS: Diagnosis Discharge Diagnosis (1) End stage renal disease: Status: Acute (2) Recto-vesical fistula: Status: Acute DS: Summary Hospital Course Hospital Course: History and physical as per admitting provider. Mehran Gray is a 78 years old man with past medical history significant forrectal CA s/p low anterior resection with diverting loop ileostomy, reversal at [facility], ESRD on HD, atrial fibrillation on Eliquis, and PPM and hypertension presents to the emergency department complaining of 3 days history of nonbloody diarrhea. Denied associated abdominal pain, nausea or vomiting. He also denied any fevers or chills. He also denied any headache, chest pain, shortness on breath, cough, palpitations or dizziness. He denied any acute urinary symptoms such as urinary frequency or pain with urination. Received a prescription for cefuroxime in November 28 of this year. He does not has past medical history of C diff infection. In the ED, he was found to have stable vital signs. Blood workup is remarkable for leukocytosis of 23.0. There is no lactic acidosis. Hemoglobin is 8.0 and around baseline. Potassium is 3.2, creatinine 3.35 and BUN 20. LFTs are normal. Abdomen pelvis CT scan showed finding concerning for rectovesical fistula and some mucosal thickening of the left colon suggesting colitis. CXR is negative. ED tx: NS 1 L bolus, Imodium 2 mg p.o., ceftriaxone 1 g IV, Flagyl 500 mg IV, fidaxomicin 200 mg PO. Severe diarrhea Resolved Due to C. Diff + ? EPEC (stool studies positive) continue vancomcyin for total of 14 days E. coli bacteremia Rocephin changed to Ceftin for few more days at home question related to GI infection vs recto-vesicular fistula Seen and evaluated by ID IV flagyl x 3-5d. Completed UTI / pyelonephritis / ? recto-vesicular fistula growing Klebsiella- sensitive to ceftriaxone, Ceftin outpatient Status post cystoscopy, urology recommends follow-up with colorectal surgeon and mass General for fistula ESRD HD MWF Chronic a. fib continue amio, metoprolol, eliquis anemic of chronic disease hb above transfusion threshold Time Attestation Discharge Coordination Time (in mins): 40 Quality: Safe Use of Opioids Does Pt have an Active Cancer Diagnosis on the Problem List?: No Quality: Stroke Does the patient have a stroke diagnosis?: No Physical Exam Vital Signs: Vital Signs: Last Vital Signs Temp 97.0 F 01/29/24 08:55 Pulse 62 01/29/24 08:55 Resp 16 01/29/24 08:55 BP 121/58 L 01/29/24 08:55 Pulse Ox 100 01/29/24 08:55 O2 Del Method Room Air 01/29/24 08:55 BMI result Body Mass Index 23.7 Appearing in no acute distress head is normocephalic atraumatic eyes pupils are PERRLA sclera is anicteric mouth throat mucous membranes are intact and moist neck is supple no lymphadenopathy, no JVD noted lung sounds are clear to auscultation heart regular rate rhythm, clear S1, S2 positive bowel sounds, abdomen is soft, nontender neuro patient is alert x3, no focal deficits DS: Data Data Completed and Pending Completed studies during hospitalization [Text1]: Procedures Control Bleeding in Gastrointestinal Tract, Via Natural or Artificial Opening Endoscopic (11/09/22) Destruction of Stomach, Pylorus, Via Natural or Artificial Opening Endoscopic (06/18/22) Excision of Ascending Colon, Via Natural or Artificial Opening Endoscopic, Diagnostic (06/18/22) Excision of Descending Colon, Via Natural or Artificial Opening Endoscopic, Diagnostic (06/18/22) Excision of Duodenum, Via Natural or Artificial Opening Endoscopic, Diagnostic (06/18/22) Excision of Rectum, Via Natural or Artificial Opening Endoscopic, Diagnostic (06/18/22) Excision of Stomach, Pylorus, Via Natural or Artificial Opening Endoscopic, Diagnostic (06/18/22) Insertion of Pacemaker Lead into Right Atrium, Percutaneous Approach (06/18/22) Insertion of Pacemaker Lead into Right Ventricle, Percutaneous Approach (06/18/22) Insertion of Pacemaker, Dual Chamber into Chest Subcutaneous Tissue and Fascia, Open Approach (06/18/22) Introduction of Mineral-based Topical Hemostatic Agent into Lower GI, Via Natural or Artificial Opening Endoscopic, [employer] 6 (11/09/22) Introduction of Vasopressor into Peripheral Vein, Percutaneous Approach (11/24/23) Occlusion of Inferior Mesenteric Artery with Intraluminal Device, Percutaneous Approach (11/09/22) Transfusion of Nonautologous Red Blood Cells into Peripheral Vein, Percutaneous Approach (11/24/23) Labs on day of discharge: Laboratory Results - last 24 hr 01/29/24 08:50 Sodium 135 Potassium 3.4 Chloride 105 Carbon Dioxide 23 Anion Gap 10 L BUN 12 Creatinine 3.23 H Estim Creat Clear Calc 18.5 Estimated GFR 19 Random Glucose 89 Calcium 7.5 L Discharge Plan Discharge Anticipated Discharge Date/Time: 01/29/24 10:18 Patient Disposition: Home, Self-Care Discharge Diagnosis: End-stage renal disease on dialysis Sunday, Sunday, Sunday C diff with diarrhea-resolved Klebsiella oxytocia UTI E coli bacteremia [place] rectal fistula Referrals: Joao Duncan [Primary Care Provider] - 1 Week Discharge Medications: New vancomycin 125 mg Capsule 125 mg PO Q6H Qty: 36 0RF cefuroxime axetil 500 mg tablet 500 mg PO BID Qty: 6 0RF Continued metoprolol tartrate 100 mg tablet 100 mg PO BID 90 Days Qty: 180 0RF Protocol: Hold for SBP/HR < HOLD for SBP < : 90 HOLD for HR < : 60 omeprazole 20 mg Capsule,Delayed Release(Dr/Ec) 20 mg PO BID@0630,1630 Qty: 60 0RF ferrous sulfate 325 mg (65 mg iron) Tablet 325 mg PO BID Qty: 60 3RF ascorbic acid (vitamin C) [Vitamin C] 500 mg Tablet 250 mg PO BID Qty: 60 3RF Eliquis 5 mg Tablet 5 mg PO BID Qty: 60 4RF acetaminophen 325 mg Tablet 325 mg PO QID PRN (Reason: Pain) (EFRAIN) radha Desai See Rx Instructions .Route Qty: 1 0RF Rx Instructions: As directed atorvastatin 40 mg Tablet 40 mg PO DAILY multivitamin Tablet 1 tab PO DAILY amiodarone 200 mg tablet 200 mg PO DAILY Qty: 90 1RF Rx Instructions: After loading dose. Discharge Orders: Discharge Order (Routine); Ordered 01/29/24 Ordered By: Nathalia Dawn Diet: Advance to usual diet Activity on Discharge: As tolerated Stand Alone Forms: Patient Portal Discharge page Print Language: [place] Care Plan Goals: Follow-up with colorectal surgeon at [facility] regarding colorectal fistula. Please schedule an appointment this week for follow-up Health Concerns: End-stage renal disease on dialysis Sunday, Sunday, Sunday C diff with diarrhea-resolved Klebsiella oxytocia UTI E coli bacteremia [place] rectal fistula Plan of Treatment: Follow-up with primary care provider Take all medications as prescribed Assessment: See discharge summary Patient Instructions: Cefuroxime (By mouth), Vancomycin (By mouth), Kidney Infection (DC), C. Diff (Clostridioides Difficile) Infection (DC) Discharge Date/Time: 01/29/24 12:34
--- NOTE | 2024-01-29 10:49 | MHC.CM.PN ---
DP: PT HAS BEEN MEDICALLY CLEARED FOR DC HOME WITH [facility]TION OF [facility]. [facility] UPDATED ON TODAY'S DC. PT'S WILL TRANSPORT HOME.
[2024-01-29 12:00] VITALS: BP 122/59; PULSE 60; RESP 16; TEMP 36.1; O2SAT 99
--- NOTE | 2024-01-29 12:56 | HO.POSTANES ---
Post Anesthesia Evaluation Post Anesthesia Evaluation Date of Service: 01/29/24 Vital Signs: Vital Signs Temp Pulse Resp BP Pulse Ox O2 Del Method 01/29/24 12:00 96.9 F 60 16 122/59 L 99 Room Air 01/29/24 08:55 97.0 F 62 16 121/58 L 100 Room Air 01/29/24 07:49 97.1 F 64 16 109/58 L 100 Room Air 01/29/24 03:29 97.0 F 61 17 116/55 L 99 Room Air Anesthesia: General Mental Status: Awake Pain Control: Satisfactory Nausea/Vomiting: None Hydration: Adequate Anesthesia-Related Issues: No Anes. Related Issues
== END 2024-01-29 12:34 | disposition home or self-care (01) | DRG 371 ==
LOC: HO.ED 01-24 02:27 → HO.EDOVER 01-24 03:38 → HO.S3 01-24 07:43
PROVIDERS: Family Medicine; Internal Medicine; Physician Assistant Medical; Registered Nurse Emergency; Urology; Admitting Provider Internal Medicine; Emergency Provider Internal Medicine; PCP Internal Medicine; Visit Provider Nurse Practitioner Acute Care
DX: A04.72 Enterocolitis due to Clostridium difficile, not specified as recurrent (principal); N18.6 End stage renal disease; I48.20 Chronic atrial fibrillation, unspecified; N32.1 Vesicointestinal fistula; I12.0 Hypertensive chronic kidney disease with stage 5 chronic kidney disease or end stage renal disease; N13.6 Pyonephrosis; B96.20 Unspecified Escherichia coli [E. coli] as the cause of diseases classified elsewhere; A04.0 Enteropathogenic Escherichia coli infection; B96.1 Klebsiella pneumoniae [K. pneumoniae] as the cause of diseases classified elsewhere; I49.5 Sick sinus syndrome; D63.1 Anemia in chronic kidney disease; Z99.2 Dependence on renal dialysis; Z91.158 Patient's noncompliance with renal dialysis for other reason; Z85.048 Personal history of other malignant neoplasm of rectum, rectosigmoid junction, and anus; Z95.0 Presence of cardiac pacemaker; Z79.01 Long term (current) use of anticoagulants; Z79.899 Other long term (current) drug therapy
CPT/HCPCS: 0241U; 36415; 71046; 74176; 80048; 80053; 81001; 83605; 83735; 85025; 85027; 87040; 87077; 87086; 87088; 87186; 87205; 87324; 87493; 87507; 90999; 99285; C1758; C1769; J0696; J1836; J2003; J2704; J3010; J7120; Q9967

== ENCOUNTER → 2024-01-23 18:21 | Outpatient (BNV) | payer OTHER, SELFPAY | PROVIDERS: Emergency Provider Internal Medicine; PCP Internal Medicine; Visit Provider Internal Medicine | DX: N18.6 End stage renal disease (principal); N32.1 Vesicointestinal fistula; A04.72 Enterocolitis due to Clostridium difficile, not specified as recurrent | CPT/HCPCS: 99223; 99232; 99239 ==

== ENCOUNTER → 2024-01-24 02:53 | Outpatient (BNV) | payer OTHER, SELFPAY | PROVIDERS: Admitting Provider Internal Medicine; Emergency Provider Internal Medicine; PCP Internal Medicine; Visit Provider Urology | DX: N32.1 Vesicointestinal fistula (principal) | CPT/HCPCS: 99232 ==

== ENCOUNTER → 2024-01-24 02:53 | Outpatient (BNV) | payer OTHER, SELFPAY | PROVIDERS: Admitting Provider Internal Medicine; Emergency Provider Internal Medicine; PCP Internal Medicine; Visit Provider Internal Medicine | DX: N18.6 End stage renal disease (principal); N32.1 Vesicointestinal fistula; N10 Acute pyelonephritis; A04.72 Enterocolitis due to Clostridium difficile, not specified as recurrent | CPT/HCPCS: 99222 ==

== ENCOUNTER → 2024-01-24 02:53 | Outpatient (BNV) | payer OTHER, SELFPAY | PROVIDERS: Admitting Provider Internal Medicine; Emergency Provider Internal Medicine; PCP Internal Medicine; Visit Provider Surgery | DX: N32.1 Vesicointestinal fistula (principal) | CPT/HCPCS: 99222 ==

== ENCOUNTER → 2024-03-08 11:53 | Outpatient (BNV) | payer OTHER, SELFPAY | PROVIDERS: Admitting Provider Physician Assistant Medical; Emergency Provider Emergency Medicine; PCP Internal Medicine; Visit Provider Internal Medicine Cardiovascular Disease | DX: R94.31 Abnormal electrocardiogram [ECG] [EKG] (principal); Z95.0 Presence of cardiac pacemaker | CPT/HCPCS: 93010 ==

== ENCOUNTER → 2024-03-08 12:24 | Outpatient (BNV) | payer OTHER, SELFPAY | PROVIDERS: Emergency Provider Emergency Medicine; PCP Internal Medicine; Visit Provider Radiology Diagnostic Radiology | DX: K62.89 Other specified diseases of anus and rectum (principal); K51.019 Ulcerative (chronic) pancolitis with unspecified complications; N13.30 Unspecified hydronephrosis; R93.422 Abnormal radiologic findings on diagnostic imaging of left kidney | CPT/HCPCS: 74176 ==

== ENCOUNTER 2024-03-08 17:37 | Outpatient (BNV) | payer OTHER, SELFPAY | END 2024-03-09 15:58 | PROVIDERS: Admitting Provider Physician Assistant Medical; Emergency Provider Emergency Medicine; PCP Internal Medicine; Visit Provider Radiology Diagnostic Radiology | DX: N13.30 Unspecified hydronephrosis (principal); K82.8 Other specified diseases of gallbladder; K83.8 Other specified diseases of biliary tract | CPT/HCPCS: 76705 ==

== ENCOUNTER → 2024-03-08 17:37 | Outpatient (BNV) | payer OTHER, SELFPAY | PROVIDERS: Admitting Provider Physician Assistant Medical; Emergency Provider Emergency Medicine; PCP Internal Medicine; Visit Provider Internal Medicine Gastroenterology | DX: A04.72 Enterocolitis due to Clostridium difficile, not specified as recurrent (principal) | CPT/HCPCS: 99223 ==

== ENCOUNTER → 2024-03-08 17:37 | Outpatient (BNV) | payer OTHER, SELFPAY | PROVIDERS: Admitting Provider Physician Assistant Medical; Emergency Provider Emergency Medicine; PCP Internal Medicine; Visit Provider Urology | DX: N39.0 Urinary tract infection, site not specified (principal); A04.72 Enterocolitis due to Clostridium difficile, not specified as recurrent; N28.89 Other specified disorders of kidney and ureter; N13.30 Unspecified hydronephrosis | CPT/HCPCS: 99222 ==

== ENCOUNTER → 2024-03-08 17:37 | Outpatient (BNV) | payer OTHER, SELFPAY | PROVIDERS: Admitting Provider Physician Assistant Medical; Emergency Provider Emergency Medicine; PCP Internal Medicine; Visit Provider Internal Medicine | DX: A04.72 Enterocolitis due to Clostridium difficile, not specified as recurrent (principal) | CPT/HCPCS: 99222 ==

== ENCOUNTER → 2024-03-08 17:37 | Outpatient (BNV) | payer OTHER, SELFPAY | PROVIDERS: Admitting Provider Physician Assistant Medical; Emergency Provider Emergency Medicine; PCP Internal Medicine; Visit Provider Physician Assistant Medical | DX: A04.72 Enterocolitis due to Clostridium difficile, not specified as recurrent (principal) | CPT/HCPCS: 99223; 99232 ==

== ENCOUNTER → 2024-03-24 23:59 | Outpatient (BNV) | payer MEDICARE, SELFPAY ==
--- NOTE | 2024-03-26 10:33 | A.OFFVIS_ITS ---
Intake Visit Reasons: Remote device check- [facility] Allergies No Known Allergies [NKA] Allergy (Mild, Verified 03/25/24 03:29) NOT APPLICABLE [facility] Medical History (Updated 03/26/24 @ 10:35 by Randy Melgar MD) Recto-vesical fistula End stage renal disease Sick sinus syndrome Postoperative hematoma involving digestive system following digestive system procedure Aftercare following left shoulder joint replacement surgery Pacemaker OA (osteoarthritis) Borderline hyperlipidemia Obesity HTN (hypertension) EtOH dependence Mild cognitive impairment Inhibited sex excitement Atrial fibrillation Cancer of kidney High cholesterol Hypertension Family History Mother Heart problem Social History Household Members: Significant Other Housing: House Do you presently have visiting nurse or other home services: No Alcohol intake: former Comment: refusing alarms Patient Tobacco Use Status: Former Tobacco user Tobacco use type: Cigarette e-Cigarette/Vaping Use: Never Used Advance Directives Date on File: 11/29/22 service: Yes Office Procedures Cardiac Device Check Cardiac Device Check Details: Date of service- 03/24/2024 ; Battery life >8 years; normal lead parameters; AP 86%; 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 Overall normal device function. [id number] Cardiac Device Interrogation, pacemaker Procedure code (CPT) selection complete Assessment & Plan Assessment & Plan (1) Pacemaker: Code(s): Z95.0 - Presence of cardiac pacemaker Category: Medical (2) PAF (paroxysmal atrial fibrillation): Code(s): I48.0 - Paroxysmal atrial fibrillation Category: Medical Plan x Coding Level of Care Code Procedure Only Diagnoses Pacemaker Z95.0 PAF (paroxysmal atrial fibrillation) I48.0 CPT Codes Cardiac Device Check - Cardiac Device 12: [id number] Cardiac Device Interrogation, pacemaker ([id number])
== END ==
PROVIDERS: Visit Provider Internal Medicine
DX: I48.0 Paroxysmal atrial fibrillation (principal); Z95.0 Presence of cardiac pacemaker
CPT/HCPCS: 93294

== ENCOUNTER 2024-03-25 02:25 | Inpatient (IN) | payer OTHER, SELFPAY ==
[2024-03-25] VITALS (34 sets, daily range): BP systolic 73–110; BP diastolic 40–74; PULSE 58–64; RESP 11–22; TEMP 35–36.4; O2SAT 86–98; BMI 25.1
--- NOTE | 2024-03-25 | ECG_ITS ---
Test Reason : SOB Blood Pressure : */* mmHG Vent. Rate : 60 BPM Atrial Rate : 60 BPM P-R Int : 190 ms QRS Dur : 112 ms QT Int : 516 ms P-R-T Axes : 37 -6 109 degrees QTcB Int : 516 ms Atrial-paced rhythm Minimal voltage criteria for LVH, may be normal variant ( [place] product ) Possible Inferior infarct , age undetermined Prolonged QT Abnormal ECG When compared with ECG of 08-Mar-2024 13:01, T wave inversion no longer evident in Anterior leads Nonspecific T wave abnormality now evident in Lateral leads Referred By: Generic ED Physician Electronically Signed By: BIB ESPINOZA MD
--- NOTE | ~2024-03-25 | MR_ITS ---
EXAMINATION: MRCP. CLINICAL INFORMATION: Bacteremia. CBD dilatation. C. Difficile colitis. COMPARISON: Correlated to CT dated March 25, 2024 and March 08, 2024. TECHNIQUE: Axial and coronal T2 haste sequences. Axial and coronal T2 fat-sat haste sequences. Coronal oblique T2 fat-sat single slice. MRCP radial T2 fat sat. Axial imaging in and out of phase 3-D sequences. 3-D space MRCP triggered. FINDINGS: Limited by patient's breathing motion artifact. There is a large void artifact at the region of the gallbladder neck anterior to the IVC posterior to the head of the pancreas obscuring the adjacent organs. The common bile duct measures 5 mm. Gallbladder is fluid-filled with the multifocal fluid signal characteristic lesions in the gallbladder wall fundus. There is a 12 mm saccular dilatation of the main pancreatic duct at the pancreatic head region with an abrupt cut off and a questionable intraluminal isointense T2 signal. The main pancreatic duct at the body measures 6 mm and at the body tail measures 4 mm. No peripancreatic fluid collection. Liver measures 12 cm. Spleen measures 8 cm. No nodular lesions in the adrenal gland. Right kidney: Dilatation of the pelvicalyceal system with layering different signal characteristic abnormality.. Left kidney: Multifocal cystic lesions, exophytic. There is a 24 mm exophytic hyperintense T2 signal with a focal intrinsic hyperintense T1 signal on dated the out of phase sequence. Fat-containing umbilical hernia. Bilateral pleural effusions, moderate to large volume. Fatty atrophy of the lower lumbar muscles. Multilevel thoracolumbar spondylosis resulting in central spinal canal stenosis at L3-4. 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 Probable adenomyosis, gallbladder. Complex hemorrhagic exophytic lesion, left kidney. Blood products versus purulent material versus neoplasm resulting in dilatation of the right pelvicalyceal system. Bilateral pleural effusions moderate to large volume. No gross biliary ductal dilatation. Electronically signed by: Duncan Garzon MD 04/04/2024 03:38 PM EST
--- NOTE | ~2024-03-25 | IR_ITS ---
Permacath removal Patient presents with a tunneled dialysis catheter. Patient has gram-negative bacteremia. Referring physician requests removal. The left chest was prepped and draped in routine sterile fashion. 1% lidocaine was used for local anesthesia. Using blunt dissection, the tunneled dialysis catheter was removed from the chest wall without complication. After hemostasis was obtained, a dry sterile dressing was applied. Patient tolerated the procedure well. The tip was sent for culture. IR/IR cvc remov tunnel wo prt/card grinder Impression: Permacath removal This procedure was performed by Jin Alarcon PA-C and supervised by Dr. Hoffman Electronically signed by: Mikhail Flores MD 04/22/2024 03:09 PM EDT RP
--- NOTE | ~2024-03-25 | US_ITS ---
EXAMINATION: US CHEST CLINICAL INFORMATION: Evaluate left pleural fluid for thoracentesis. COMPARISON: None available. TECHNIQUE: Grayscale ultrasound imaging of the left thorax. FINDINGS: There is a small left pleural effusion. This does not appear large enough to perform a safe thoracentesis. Thoracentesis was therefore canceled. US/US chest IMPRESSION: Small amount of left pleural fluid. Electronically signed by: Lior Lewis MD 04/02/2024 01:21 PM [facility]
--- NOTE | ~2024-03-25 | CT_ITS ---
CLINICAL HISTORY: C diff colitis CT ABDOMEN AND PELVIS WITHOUT CONTRAST COMPARISON: 03/09/2024. FINDINGS: Lack of IV contrast lowers the sensitivity of the exam. Postsurgical changes are again noted involving small bowel. There is dilatation of multiple loops of mid small bowel, for example measuring 3.8 cm in caliber on axial image 555 of series 4. Some feces is noted within portions of mid to distal small bowel, for example seen on axial image 178. The presence of feces suggests stasis. There is no definite high-grade transition point. There is gradual narrowing in caliber of the distal small bowel loops, beginning distal to bowel anastomotic sutures on axial image 332. The patient has a reported history of a partial colectomy. Rectum is underdistended which makes accurate assessment difficult, However proctitis is again suspected. Coalescent fluid is again noted abutting the rectum, for example seen on axial image 79. This does not appear to be significantly changed. Presacral stranding does not appear to be significantly changed. A gas bubble in association with the rectum on axial image 84 is favored to be intraluminal rather than mural in location. The colon does not appear to be thick-walled. In between the proximal portions of the common iliac arteries is some coalescent stranding, similar to the prior study. A collection of gas is noted in association with this, for example seen on axial images 65-69. Another dot of gas is seen on axial image 64. Imaging findings are of uncertain significance but raise the question of a sinus tract or fistula. There are small bilateral pleural effusions. Left pleural effusion does not appear to be significantly changed. Right pleural effusion is increased since the prior study. Atelectasis/consolidation is noted within the left lower lobe. There also infiltrates in the left lingula and left lower lobe which are new since the prior study, for example seen on axial image 4. Mild ground-glass infiltrate is noted in the right middle lobe on coronal image 37. Small amount of perihepatic ascites is noted. Calcified granuloma is noted within the right hepatic lobe. Gallbladder is distended. Some layering increased attenuation material is noted in the gallbladder which might be related to vicarious excretion of contrast from a prior CT study. Common bile duct is less dilated on the current study, measuring 9-10 mm on coronal image 47. Previously it measured approximately 16-17 mm by my measurements. Stomach is mildly distended with enteric contents and some gas. No CT evidence of acute pancreatitis. 1.3 cm cystic lesion in the pancreatic body is seen on axial image 33, similar to the prior study. The spleen is unremarkable. Thickening of the adrenal glands is noted. Moderate right-sided hydroureteronephrosis does not appear to be significantly changed. No evidence of an obstructing stone. The most distal aspect of the right ureter is not dilated. A stricture is not excluded. Heterogeneous left renal lesion is again noted, measuring approximately 2.4 cm in AP diameter on axial image 37, this does not appear to be significantly changed. No left-sided hydronephrosis or left-sided obstructing stone. Calcific plaque is again noted in the abdominal aorta, without evidence of an aneurysm. Chronic walled-off fluid collection within the mesentery appears slightly smaller on the current study, measuring 4.3 x 3.6 cm on axial image 44, previously it measured approximately 4.4 x 3.9 cm. Subcutaneous edema/anasarca is noted. The bone windows demonstrate no acute abnormalities. IMPRESSION: 1. Dilatation of multiple loops of mid small bowel measuring up to 3.8 cm in caliber. No definite high-grade transition point. There is gradual narrowing in caliber of the distal small bowel loops, as detailed above. Imaging findings raise the question of a small-bowel obstruction versus ileus. Consultation with a surgeon is advised. 2. Proctitis is again suspected. Coalescent fluid is again noted abutting the rectum which does not appear to be significantly changed. Gas bubble in association with the rectum is favored to be intraluminal rather than mural in location, this can be further assessed on a follow-up exam. 3. In between the proximal portions of the common iliac arteries is some coalescent stranding, similar to the prior study. A collection of gas is noted in association with this. Separate from this collection of gas is another tiny gas bubble. Imaging findings are of uncertain significance but raise the question of a sinus tract or fistula. This can also be further addressed at the time of surgical consultation. 4. Small bilateral pleural effusions. The right pleural effusion is increased since the prior study. There is atelectasis/consolidation in the left lower lobe. There are new infiltrates bilaterally. 5. Small amount of perihepatic ascites. 6. Common bile duct is less dilated on the current exam, measuring 9-10 mm. Previously it measured 16-17 mm. 7. Pancreatic cystic lesion is similar to the prior study. Differential considerations include a pseudocyst or cystic pancreatic neoplasm. This can also be further addressed at the time of surgical consultation. 8. Moderate right-sided hydroureteronephrosis does not appear to be significantly changed. The most distal aspect of the right ureter is not dilated. A stricture is not excluded. 9. Heterogeneous left renal lesion is again noted which does not appear to be significantly changed. Follow-up nonurgent CT kidneys, without and with contrast, is advised. 10. Additional findings are detailed above. This document has been electronically signed by: Rudi Sheets M.D. on 03/25/2024 05:53:11
--- NOTE | ~2024-03-25 | IR_ITS ---
CLINICAL HISTORY: Bacteremia has resolved.. The patient presents to interventional radiology for replacement of a tunneled central venous catheter for hemodialysis. PROCEDURES: 1. Real-time ultrasound-guided access into the left internal jugular vein after documentation of selected vessel patency, and permanent imaging storing in the patient record. 2. Placement of a 14.5 fr 27 cm tunneled, dual-lumen hemodialysis catheter. Clinician: Jin Alarcon PA-C MEDICATIONS: -Fentanyl 75 mcg, Lidocaine 1% 10 mL SQ. -Antibiotics: Ancef -For additional details, please see nursing flowsheet. COMPLICATIONS: None. ESTIMATED BLOOD LOSS: <5 ml SPECIMENS: None FLUOROSCOPY TIME: 1.1 min PROCEDURE NOTE: The procedure, risks, benefits, and alternatives were carefully explained to patient, and written informed consent was obtained. The patient was placed supine on the fluoroscopy table. A timeout was performed. The left neck and chest was prepped and draped in usual sterile fashion. Local anesthesia was administered to the access site with lidocaine. Under ultrasound guidance, the left internal jugular vein was accessed with a 5 Fr micropuncture set. A 0.035 in wire was advanced to the IVC to maintain access during the tunneling process. Next, subcutaneous lidocaine was administered to the chest. Using blunt dissection, a subcutaneous tunnel was created that connects from the upper chest to the venotomy site. The dialysis catheter was pulled through the tunnel. The tract in the vein was dilated and a peel-away sheath was advanced over the wire. The catheter was advanced through the sheath, which was subsequently peeled away. The catheter was tested, flushed, and sutured to the skin with its tip in the high right atrium. A permanent fluoroscopic image of the chest was saved to PACS. The catheter ports were packed with heparin per routine protocol. FINDINGS: 1. Patent left internal jugular vein. 2. Placement of a tunneled, dual-lumen hemodialysis catheter as above. 3. Catheter flushes and aspirates very well with a 10 mL syringe. No pneumothorax. IR/IR cvc insert central tunnel IMPRESSION: Placement of a tunneled hemodialysis catheter in the left internal jugular vein. PLAN: -The catheter may be used immediately. This procedure was performed by Jin Alarcon PA-C, and directly supervised by Dr. Hunter. Electronically signed by: Rodolfo Hunter MD 04/07/2024 04:17 FLORECITA SALDIVAR RP
--- NOTE | ~2024-03-25 | IR_ITS ---
CLINICAL HISTORY: obstructive uropathy PROCEDURES: right nephrostomy tube MEDICATIONS: -Fentanyl, versed, Lidocaine 1% 10 mL SQ. -For additional details, please see nursing flowsheet. COMPLICATIONS: None. ESTIMATED BLOOD LOSS: <5 ml SPECIMENS: urine from right kidney FLUOROSCOPY TIME: 1.3 min Dose: 48.3 mgy MODERATE SEDATION TIME: 30 min PROCEDURE NOTE: The procedure, risks, benefits, and alternatives were carefully explained to patient, and written informed consent was obtained. The patient was placed prone on the fluoroscopy table. A timeout was performed. Preliminary ultrasound demonstrates moderate right hydronephrosis. The right lower back was prepped and draped in usual sterile fashion. Local anesthesia was administered to the access site with lidocaine. Under ultrasound guidance, a right lower pole posterior calyx was accessed with a 21 gauge needle. Nephrostogram demonstrates moderate hydronephrosis. The needle was exchanged for the transitional dilator and a 0.035 wire was inserted. An 8 Fr nephrostomy tube was then placed. The pigtail was formed in the renal pelvis. Contrast injection demonstrates satisfactory position of the tube. The tube was secured with 3-0 suture and maintained to gravity bag drainage. A dressing was applied The patient was stable after the procedure and was transferred to the floor. This procedure was performed under moderate sedation with a dedicated nurse and continuous monitoring of vital signs. IR/IR nephrostomy IMPRESSION: Placement of a right nephrostomy tube. Electronically signed by: Rodolfo Hunter MD 04/08/2024 01:52 PM [facility]
--- NOTE | ~2024-03-25 | XR_ITS ---
CLINICAL HISTORY: right jugular tlc insertion 1 view chest x-ray Comparison: 11/24/2022 Findings: There is pulmonary vascular congestion and evidence of pulmonary edema along with a left-sided effusion. There is left basilar atelectasis/pneumonia obscuring the left hemidiaphragm. Right-sided cardiac pacemaker. There is a small bore right central venous catheter and a left-sided dialysis catheter both adequately positioned. No acute fracture. IMPRESSION: 1. Findings compatible with fluid overload/CHF with left-sided effusion. 2. Left basilar atelectasis/pneumonia. This document has been electronically signed by: Carlitos Valle MD on 03/26/2024 05:47:49
--- NOTE | ~2024-03-25 | FL_ITS ---
EXAMINATION: FL GUIDANCE ONLY HISTORY: right stone COMPARISON: None available. TECHNIQUE: Fluoroscopy time: 59 seconds. Cumulative Dose: 59.5 mGy. Images: 4. FINDINGS: Images demonstrate a wire in the urinary bladder. FL/FL guidance in OR IMPRESSION: Fluoroscopy during procedure. Please see procedure report for additional information. Electronically signed by: Markos Li MD 04/08/2024 07:57 AM [facility] [place]
--- NOTE | ~2024-03-25 | FL_ITS ---
EXAMINATION: FL RIGHT NEPHROSTOGRAM CLINICAL INFORMATION: Right ureteral obstruction. Unsuccessful attempt at retrograde stent placement. Status post right nephrostomy tube. COMPARISON: None TECHNIQUE: Dilute Omnipaque 300 was injected through the right nephrostomy tube and multiple cine loops and spot images were obtained. FINDINGS: A right nephrostomy is present, with the tip of the catheter coiled within the renal pelvis. There is a high-grade stricture present in the distal right ureter, with only a very small amount of contrast observed flowing into the bladder. Surgical clips are present overlying the sacrum. FLUOROSCOPY TIME: 2 minutes 4 seconds Number of Spot Images: 7 Number of Cine: 6 DOSE AREA PRODUCT: 1141 uGy-m2 (microgray-meter squared) FL/FL fistula/abscess/sinus tract IMPRESSION: 1. Right nephrostomy present, with the catheter tip coiled in the right renal pelvis. 2. 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 This procedure was performed by Jin Alarcon PA-C, and supervised by Dr. Lewis Electronically signed by: Lior Lewis MD 04/11/2024 05:07 PM [facility]
--- NOTE | 2024-03-25 03:08 | ED.GENADULT ---
[facility] - General Adult General Chief complaint: Nausea/Vomiting/Diarrhea Stated complaint: fall/weakness/dizzy Time Seen by Provider: 03/25/24 03:06 Source: patient Mode of arrival: ambulatory Limitations: no limitations History of Present Illness ED Provider: HPI narrative: Patient is a 78-year-old male with history of ESRD on HD MWF, colorectal cancer status post low anterior resection with diverting loop ileostomy and reversal at [facility], atrial fibrillation on Eliquis just admitted and discharge on 03/12/2024 with diagnose of C diff enteritis comes here as still feeling weak been having to 3 times watery stool blood pressure was low during dialysis yesterday on arrival patient's blood pressure was also low CT scan done on 03/08 showed root colitis patient was discharged on long-term vancomycin p.o. which he is taking still having the diarrhea in feeling weak today patient was feeling very weak hence called the EMS Related Data Home Medications ?Medication ?Instructions ?Recorded ?Confirmed clindamycin phosphate 1 % lotion 1 appl topical BID PRN Acne 03/08/24 03/08/24 clobetasol 0.05 % topical cream 1 appl topical BID PRN itching/rash 03/08/24 03/08/24 diltiazem HCl 240 mg 240 mg PO DAILY 03/08/24 03/08/24 capsule,extended release 24 hr, controlled (DILT-XR) lisinopril 5 mg tablet 5 mg PO DAILY 03/08/24 03/08/24 pramoxine 1 % lotion 1 appl topical BID PRN Itching 03/08/24 03/08/24 Previous Rx's ?Medication ?Instructions ?Recorded metoprolol tartrate 100 mg tablet 100 mg PO BID 90 days #180 tabs 06/08/22 ascorbic acid (vitamin C) 500 mg 250 mg (1/2 x 500 mg) PO BID #60 04/23/23 tablet (Vitamin C) tabs ferrous sulfate 325 mg (65 mg 325 mg PO BID #60 tabs 04/23/23 iron) tablet amiodarone 200 mg tablet 200 mg PO DAILY #90 tabs 08/13/23 apixaban 5 mg tablet (Eliquis) 5 mg PO BID #60 tabs 08/24/23 walker #1 ea 11/29/23 vancomycin 125 mg capsule 125 mg PO Q6H #81 caps 03/12/24 Allergies Allergy/AdvReac Type Severity Reaction Status Date / Time No Known Allergies [NKA] Allergy Mild NOT Verified 03/25/24 03:29 APPLICABLE Review of Systems Review of Systems: Yes all other systems are reviewed and are negative FOR[facility]LY [facility] Past Medical History Medical History Recto-vesical fistula End stage renal disease Sick sinus syndrome Postoperative hematoma involving digestive system following digestive system procedure Aftercare following left shoulder joint replacement surgery Pacemaker OA (osteoarthritis) Borderline hyperlipidemia Obesity HTN (hypertension) EtOH dependence Mild cognitive impairment Inhibited sex excitement Atrial fibrillation Cancer of kidney High cholesterol Hypertension Family History Family History Mother Heart problem Social History Social History Household Members: Significant Other Housing: House Do you presently have visiting nurse or other home services: No Alcohol intake: former Comment: refusing alarms Patient Tobacco Use Status: Former Tobacco user Tobacco use type: Cigarette Smoked in Last 30 Days: No e-Cigarette/Vaping Use: Never Used Use of substances other than those prescribed or required for medical reasons: No Advance Directives: Yes Advance Directives on File: Yes Advance Directives Date on File: 11/29/22 Do you have a plan to hurt others: No Plan service: No Physical Exam ED Vital Signs: Vital Signs - 24 hr 03/25/24 02:51 03/25/24 03:07 03/25/24 03:38 Temperature Pulse Rate 60 Respiratory Rate 14 Blood Pressure 87/55 L 84/66 L 97/69 Pulse Oximetry Oxygen Delivery Method Oxygen Flow Rate 03/25/24 04:00 03/25/24 05:22 03/25/24 05:35 Temperature 95.8 F L Pulse Rate 61 60 Respiratory Rate 17 14 Blood Pressure 98/64 95/63 93/62 Pulse Oximetry 87 L 90 L Oxygen Delivery Method Room Air Nasal Cannula Oxygen Flow Rate 2 03/25/24 06:00 03/25/24 06:27 03/25/24 06:31 Temperature 95.0 F L Pulse Rate 60 59 Respiratory Rate 16 13 Blood Pressure 110/61 105/56 L 103/62 Pulse Oximetry 94 90 L Oxygen Delivery Method Nasal Cannula Nasal Cannula Oxygen Flow Rate 2 2 BMI result Body Mass Index 25.1 Appearance: Alert. Oriented X3. Lethargic sleepy but answering all the questions Eyes: PERRLA, No Nystagmus ENT: Pharynx normal. Oral Mucosa moist Neck: Normal inspection. Neck supple. CVS: Normal heart rate and rhythm. Pulses normal. Shiley catheter left side Respiratory: No respiratory distress. Equal air entry bilateral, no wheezing/rales/rhonchi Abdomen: Soft graciously distended diffuse tenderness no rebound tenderness Bowel sounds are present, no mass palpable, no CVA tenderness Skin: Skin warm and dry. Normal skin color. Normal skin turgor. Extremities: No lower extremity edema. No calf tenderness Neuro: Oriented X 3. No motor deficit. No sensory deficit.No cerebellar signs , cranial nerves II-XII intact Medications Administered Discontinued Medications Generic Name Dose Route Start Last Admin Trade Name Freq PRN Reason Stop Dose Admin Sodium Chloride 500 mls @ 250 mls/hr 03/25/24 03:30 03/25/24 05:21 Ns IVCONT 03/25/24 05:29 Infused .Q2H NILE Infusion Metronidazole 500 mg in 100 mls @ 100 mls/hr 03/25/24 04:30 03/25/24 05:44 Flagyl IV 03/25/24 05:29 Infused ONCE ONE Infusion Sodium Chloride 500 mls @ 500 mls/hr 03/25/24 05:13 03/25/24 05:59 Ns IVCONT 03/25/24 06:11 Infused .Q1H ONE Infusion Ondansetron HCl 4 mg 03/25/24 03:26 03/25/24 03:39 Ondansetron Hcl 4 Mg/2 Ml Vial IVPUSH 03/25/24 03:27 4 mg ONCE ONE Administration Medical Decision Making Medical Decision Making [facility] Narrative: Patient's C diff colitis with ileus with history of renal disease recently discharged on p.o. long-term vancomycin comes back as still having the watery diarrhea noted to have slightly hypotension responded to IV fluids patient has lactic acid elevated secondary to renal failure and C diff colitis patient was given IV Flagyl patient's symptoms are from C diff colitis and renal failure patient will not be given IV broad-spectrum antibiotics as patient is diagnose with C diff and will be given IV Flagyl along with p.o. fidaxomicin. Patient received 1 L of IV fluids feeling much better patient advised to consult surgery about dilated bowel loops Differential Diagnosis Differential Diagnoses: The differential diagnosis associated with the presentation includes As above Admission/Observation Consideration of admission/observation: Escalation of care including admission/observation considered Consult Healthcare Provider Management of the patient was discussed with: Hospitalist Lab Data MDM Lab Attestation statement: I reviewed the patient's lab results. 03/25/24 03:02 03/25/24 03:02 Labs: Lab Results 03/25/24 03/25/24 03/25/24 Range/Units 03:02 03:08 06:26 WBC 14.5 H (4.8-10.8) X10*3/uL RBC 2.81 L (4.60-5.80) X10*6/uL Hgb 9.8 L (14.0-18.0) g/dl Hct 31.3 L (42.0-52.0) % MCV 111.4 H (80.0-98.0) fL MCH 34.9 H (27.0-33.0) pg MCHC 31.3 (31.0-36.0) g/dl RDW 25.7 H (11.0-16.0) % Plt Count 76 L (160-400) X10*3/uL MPV 12.5 H (9.4-12.4) fL Immature Gran % (Auto) 1.0 H (0.0-0.4) % Neut % (Auto) 82.4 H (45-73) % Lymph % (Auto) 10.8 L (20-40) % [place] % (Auto) 5.7 (2-11) % Eos % (Auto) 0.0 (0-4) % Baso % (Auto) 0.1 (0-2) % Lymph # (Auto) 1.6 (1.2-4.9) X10*3/uL [place] # (Auto) 0.8 (0.1-1.2) X10*3/uL Eos # (Auto) 0.0 (0.0-0.4) X10*3/uL Baso # (Auto) 0.0 (0.0-0.2) X10*3/uL Abs Immat Gran (auto) 0.15 H (0.00-0.03) X10*3/uL Absolute Neuts (auto) 11.9 H (2.0-8.3) x10*3/uL Absolute Nucleated RBC 0.030 H (0.0-0.012) X10*3/uL Nucleated RBC % (auto) 0.2 (0.0-0.2) /100WBC Hold Purple Top SEE NOTE PT 21.3 H (10.9-12.4) SEC INR 1.8 H (0.9-1.1) VBG pH 7.34 (7.32-7.43) VBG pCO2 42 mmHg VBG pO2 27 mmHg VBG HCO3 23 (22-26) mmol/L VBG O2 Saturation 31.0 % VBG Base Excess -1.7 mmol/L Sodium 142 (135-145) mmol/L Potassium 3.4 (3.3-5.1) mmol/L Chloride 105 (96-108) mmol/L Carbon Dioxide 19 L (22-29) mmol/L Anion Gap 21 H (12-20) BUN 24 H (9-16) mg/dL Creatinine 4.16 H* (0.5-1.4) mg/dL Estim Creat Clear Calc 14.8 Estimated GFR 14 Random Glucose 78 (60-115) mg/dL Lactic Acid 7.2 H* (0.5-2.0) mmol/L Lactic Acid F/U @ 2Hr 6.5 H* (0.5-2.0) mmol/L Calcium 7.0 L (8.4-10.2) mg/dL Total Bilirubin 0.8 (0.0-1.0) mg/dL AST 39 H (5-37) U/L ALT 17 (0-40) U/L Alkaline Phosphatase 121 H (39-117) U/L Troponin I High Sens 77.2 H D (<3.5-35.0) ng/L Total Protein 5.2 L (6.5-8.0) g/dL Albumin 1.8 L (3.5-5.0) g/dL Lipase 5 L (8-78) U/L ABG Data Attestation ABG: I personally reviewed and interpreted this ABG as follows: Interpretation: Normal gases Independent Interpretation I performed an independent interpretation of an: CT Scan Radiology Impression Discussion of test interpretation with radiology: I have reviewed the radiologist's reading. Critical Care Time Critical Care Time Critical Care Time: Yes Total Critical Care Time: 55 Attestation: The patient was critically ill with a high probability of imminent or life threatening deterioration. I spent greater than60???minutes of discontinuous time evaluating the patient,delivering critical care at the bedside, discussing and evaluating pertinent data with consultants. Critical care time does not include time spent performing separately billable procedures or teaching. Total time spent performing critical care was 55???minutes. Discharge Plan Discharge Clinical Impression: C. difficile colitis, Acidosis, lactic, End stage renal disease Patient Disposition: Admitted As Inpatient
[2024-03-25 03:10] LABS: MANUAL DIFF FLAG NO
[2024-03-25 03:11] LABS: Basophils Percent Auto 0.1 % (0-2); Hematocrit 31.3 % (42.0-52.0); Hemoglobin 9.8 g/dl (14.0-18.0); Imm Gran Abs Auto 0.15 X10*3/uL (0.00-0.03); Lymphocytes Absolute Auto 1.6 X10*3/uL (1.2-4.9); Lymphocytes Percent Auto 10.8 % (20-40); Mean Corpuscular HGB Conc 31.3 g/dl (31.0-36.0); Mean Corpuscular Hemoglobin 34.9 pg (27.0-33.0); Mean Platelet Volume 12.5 fL (9.4-12.4); Monocytes Absolute Auto 0.8 X10*3/uL (0.1-1.2); Monocytes Percent Auto 5.7 % (2-11); NRBC Pct Auto 0.2 /100WBC (0.0-0.2); Neutrophils Absolute Auto 11.9 x10*3/uL (2.0-8.3); Neutrophils Percent Auto 82.4 % (45-73); Red Blood Count 2.81 X10*6/uL (4.60-5.80); Red Cell Distribution Width 25.7 % (11.0-16.0); White Blood Count 14.5 X10*3/uL (4.8-10.8)
[2024-03-25 03:12] LABS: Venous Blood Gas Refer to POC result
[2024-03-25 03:15] LABS: VBG Base Excess -1.7 mmol/L; VBG HCO3 23 mmol/L (22-26); VBG pCO2 42 mmHg; VBG pH 7.34 (7.32-7.43); VBG pO2 27 mmHg
[2024-03-25 03:20] LABS: INTERNATIONAL NORM RATIO 1.8 (0.9-1.1); Mean Corpuscular Volume 111.4 fL (80.0-98.0); Platelet Count 76 X10*3/uL (160-400); Prothrombin Time 21.3 SEC (10.9-12.4)
[2024-03-25 03:30] LABS: Troponin-I High Sensitivity 77.2 ng/L (<3.5-35.0)
[2024-03-25 03:31] LABS: Alanine Aminotransferase 17 U/L (0-40); Albumin Level 1.8 g/dL (3.5-5.0); Anion Gap 21 (12-20); Aspartate Amino Transferase 39 U/L (5-37); Blood Urea Nitrogen 24 mg/dL (9-16); Carbon Dioxide 19 mmol/L (22-29); Chloride 105 mmol/L (96-108); Glucose Random 78 mg/dL (60-115); Lipase 5 U/L (8-78); Potassium 3.4 mmol/L (3.3-5.1); Sodium 142 mmol/L (135-145); Total Protein 5.2 g/dL (6.5-8.0)
[2024-03-25 03:34] LABS: Creatinine Clr Calc Pharmacy 14.8; Estimated Glomerular Filt Rate 14
[2024-03-25 03:35] LABS: Lactic Acid 7.2 mmol/L (0.5-2.0)
[2024-03-25] MEDS: ondansetron HCL 4 MG/2 ML VIAL IVPUSH (03:39)
[2024-03-25] MEDS: 0.9 % Sodium Chloride 500 ML 250 ML IVCONT (03:42)
[2024-03-25 03:55] LABS: Alkaline Phosphatase 121 U/L (39-117); Bilirubin Total 0.8 mg/dL (0.0-1.0)
[2024-03-25] MEDS: metroNIDAZOLE/NS 500 MG/100 ML PIGGYBACK 100 MG IV ×2 (04:44→17:37)
[2024-03-25 05:08] LABS: Reflex Lactate? Lactic Acid Added
[2024-03-25] MEDS: 0.9 % Sodium Chloride 500 ML IVCONT (05:22)
--- NOTE | 2024-03-25 06:42 | P.HPHOSP_ITS ---
History of Present Illness Date of Service: 03/25/24 Attending physician on admission: Meli Gamboa Chief Complaint: diarrhea, weakness Patient is a 78-year-old male with history of ESRD on HD MWF, colorectal cancer status post low anterior resection with diverting loop ileostomy and reversal at [facility], recurrent c diff, chronic R hydonephrosis, and atrial fibrillation on Eliquis who presents to the emergency department with persistent diarrhea 3- 4x/day with associated weakness. He was recently hospitalized from 03/08/24- 03/12/24 for recurrent C diff. he denies any blood in the stool, abdominal pain, nausea, vomiting or fever. He has no additional complaints including any upper respiratory symptoms or urinary symptoms. Review of Systems 2 Constitutional: Constitutional: Denies chills, Denies fatigue, Denies fever(s) and Denies headache(s) Eyes: Eyes: Denies change in vision and Denies photophobia ENT: Denies headache(s), Denies nasal congestion, Denies nasal discharge and Denies sore throat Cardiovascular: Cardiovascular: Denies chest pain, Denies rapid heart rate, Denies leg edema, Denies lightheadedness and Denies dyspnea Respiratory: Respiratory: Denies chest congestion, Denies cough, Denies dyspnea and Denies wheezing Gastrointestinal: Gastrointestinal: Denies melena, Denies hematochezia, Reports diarrhea, Denies nausea, Denies vomiting and Denies hematemesis Genitourinary: Genitourinary: Denies oliguria, Denies difficulty urinating and Denies urinary urgency Musculoskeletal: Musculoskeletal: Denies myalgias Integumentary/Breasts: Skin/Breast: Denies rash Neurologic: Denies confusion and Denies headache(s) Psychiatric: Psychiatric: Denies confusion Endocrine: Endocrine: Denies fatigue Hematologic/Lymphatic: Hematologic/Lymphatic: Denies easy bleeding and Denies easy bruising Allergic/Immunologic: Allergic/Immunologic: Denies wheezing PMFSH Medical History Recto-vesical fistula End stage renal disease Sick sinus syndrome Postoperative hematoma involving digestive system following digestive system procedure Aftercare following left shoulder joint replacement surgery Pacemaker OA (osteoarthritis) Borderline hyperlipidemia Obesity HTN (hypertension) EtOH dependence Mild cognitive impairment Inhibited sex excitement Atrial fibrillation Cancer of kidney High cholesterol Hypertension Family History Mother Heart problem Social History Household Members: Significant Other Housing: House Do you presently have visiting nurse or other home services: No Alcohol intake: former Comment: refusing alarms Patient Tobacco Use Status: Former Tobacco user Tobacco use type: Cigarette Smoked in Last 30 Days: No e-Cigarette/Vaping Use: Never Used Use of substances other than those prescribed or required for medical reasons: No Advance Directives: Yes Advance Directives on File: Yes Advance Directives Date on File: 11/29/22 Do you have a plan to hurt others: No Plan service: No Narrative: No smoking, alcohol or drug use Meds Allergies Allergy/AdvReac Type Severity Reaction Status Date / Time No Known Allergies [NKA] Allergy Mild NOT Verified 03/25/24 03:29 APPLICABLE Home Medications ?Medication ?Instructions ?Recorded ?Confirmed ?Last Taken ?Type clindamycin phosphate 1 % lotion 1 appl topical BID PRN Acne 03/08/24 03/08/24 Unknown History clobetasol 0.05 % topical cream 1 appl topical BID PRN itching/rash 03/08/24 03/08/24 Unknown History diltiazem HCl 240 mg 240 mg PO DAILY 03/08/24 03/08/24 Unknown History capsule,extended release 24 hr, controlled (DILT-XR) lisinopril 5 mg tablet 5 mg PO DAILY 03/08/24 03/08/24 Unknown History pramoxine 1 % lotion 1 appl topical BID PRN Itching 03/08/24 03/08/24 Unknown History Physical Exam 2 Vital Signs and Narrative: Vital Signs: Last Vital Signs Temp 95.0 F L 03/25/24 06:31 Pulse 59 03/25/24 06:31 Resp 13 03/25/24 06:31 BP 103/62 03/25/24 06:31 Pulse Ox 90 L 03/25/24 06:31 O2 Del Method Nasal Cannula 03/25/24 06:31 O2 Flow Rate 2 03/25/24 06:31 BMI result Body Mass Index 25.1 General: AOx3, no acute distress, public address system mechanic present Resp: CTA bilaterally CVS: S1, S2, RRR GI: slighlty hypoactive, mild distention, non-tender Skin: Warm, dry Neuro: Cranial nerves II-XII grossly intact bilaterally. Motor grossly intact bilaterally Extremities: 1+ pitting edema Psych: Appropriate affect Const: General: No confusion Orientation/consciousness: No confusion Eyes: Direct Ophthalmoscopy: No photophobia Neuro: General: No confusion Results Labs 03/25/24 03:02 03/25/24 03:02 Labs: Laboratory Results - last 24 hr 03/25/24 03/25/24 03:02 03:08 MCV 111.4 H MCH 34.9 H MCHC 31.3 RDW 25.7 H Plt Count 76 L MPV 12.5 H Immature Gran % (Auto) 1.0 H Neut % (Auto) 82.4 H Lymph % (Auto) 10.8 L [place] % (Auto) 5.7 Eos % (Auto) 0.0 Baso % (Auto) 0.1 Lymph # (Auto) 1.6 [place] # (Auto) 0.8 Eos # (Auto) 0.0 Baso # (Auto) 0.0 Abs Immat Gran (auto) 0.15 H Absolute Neuts (auto) 11.9 H Absolute Nucleated RBC 0.030 H Nucleated RBC % (auto) 0.2 Hold Purple Top SEE NOTE PT 21.3 H INR 1.8 H VBG pH 7.34 VBG pCO2 42 VBG pO2 27 VBG HCO3 23 VBG O2 Saturation 31.0 VBG Base Excess -1.7 Anion Gap 21 H Estim Creat Clear Calc 14.8 Estimated GFR 14 Random Glucose 78 Lactic Acid 7.2 H* Calcium 7.0 L Total Bilirubin 0.8 AST 39 H ALT 17 Alkaline Phosphatase 121 H Troponin I High Sens 77.2 H D Total Protein 5.2 L Albumin 1.8 L Lipase 5 L Assessment and Plan (1) Sepsis: Status: Acute (2) Recurrent Clostridioides difficile diarrhea: Status: Acute (3) End stage renal disease: Status: Acute (4) Acidosis, lactic: Status: Acute Plan Patient is a 78-year-old male with history of ESRD on HD MWF, colorectal cancer status post low anterior resection with diverting loop ileostomy and reversal at [facility], recurrent c diff, chronic R hydonephrosis, and atrial fibrillation on Eliquis who presents to the emergency department with persistent diarrhea 3-4x/day with associated weakness. Sepsis secondary to recurrent C diff - WBC 14.5, hypotensive, hypothermic, lactic acid 7.2, 7.0 on repeat (likely elevated due to dehydration), blood cultures pending - abdominopelvic CT with possible small-bowel obstruction versus ileus, proctitis, small bilateral pleural effusions, small perihepatic ascites, stable moderate right-sided hydroureteronephrosis - stool studies pending including C diff and GI panel - given 1 L NS in ED - started on Flagyl, switched to Dificid - NPO - ID and surgical consult - monitor CBC and BMP End-stage renal disease on HD MWF - due for dialysis Sunday - nephrology consult Lactic acidosis - likely secondary to dehydration and ESRD - monitor CBC and BMP anemia, macrocytic - chronic and stable - monitor CBC Atrial fibrillation - rate controlled, EKG with atrial paced rhythm - continue eliquis after surgical consultation Full code VTE prophylaxis: eliquis after surgical consultation Patient with sepsis secondary to recurrent C diff requiring admission for antibiotics, expert consultation and monitoring for at least 2 midnights stay. Quality Stroke Does the patient have a stroke diagnosis?: No VTE Prior VTE?: No VTE Risk Level:: Medical - moderate - high VTE Device Contraindication: Treatment Not Indicated VTE Drug Contraindication: N/A - Med Ordered
[2024-03-25 07:01] LABS: ~Lactic Acid-LAB USE ONLY 6.5 mmol/L (0.5-2.0)
[2024-03-25 07:33] LABS: Cancel Lactic Acid Canceled
--- NOTE | 2024-03-25 08:44 | PC.NURSE ---
pt noted to be hypothermic and hypotensive. otherwise vss and up to date. nsr on the compliance monitor. pt placed on bear hugger. provider notified/aware of results. target temp goal of 96.5 pending - will reassess shortly. bolus of NS infusing via right EJ at this time. effectiveness pending. pt otherwise remains on 2L via NC - no sob/wob noted. respirations even/unlabored. plan of care ongoing. call pate placed within reach.
[2024-03-25] MEDS: 0.9 % Sodium Chloride Flush 3 ML SYRINGE IVFLUSH ×2 (08:47→21:02)
[2024-03-25] MEDS: 0.9 % Sodium Chloride 1,000 ML 999 ML IV ×2 (08:50→14:37)
[2024-03-25] MEDS: Fidaxomicin 200 MG TABLET PO (09:06)
--- NOTE | 2024-03-25 09:06 | PC.NURSE ---
delay in medication administration d/t medication not being in pyxis. medication delivered from pharmacy/administered. otherwise BP continues to improve at this time. NS bolus continues to infuse. pt remains on bear hugger. will reassess rectal temp shortly. respirations remain even/unlabored. plan of care ongoing.
--- NOTE | 2024-03-25 09:32 | MHC.CM.PN ---
Pt lives with his , Trinidad, she is HCP and this is on file and confirmed. Pt. goes to MWF at [facility] in [place]. He is active with [facility]. [facility] but was not able to say from what agency. For DME, he uses a walker. Family to transport home at [place]. DCP: resume [facility] services. CM to follow for DC needs.
[2024-03-25] MEDS: Albumin Human 25 % 100 ML 133.33 ML IV ×4 (10:26→21:45)
[2024-03-25] MEDS: 0.9 % Sodium Chloride 2,313.33 ML 2313.33 ML IV (10:32)
[2024-03-25 11:32] LABS: Lactic Acid 3.1 mmol/L (0.5-2.0)
[2024-03-25] MEDS: Midodrine HCl 10 MG TABLET PO (11:39)
--- NOTE | 2024-03-25 11:59 | PM.EVENT ---
Event Note Date of Service: 03/25/24 Event Note: Chart reviewed Consult to follow HD arranged for MWF Time Spent With Patient Time: Total time managing care of this patient today ____ minutes.
--- NOTE | 2024-03-25 13:02 | PM.EVENT ---
Event Note Date of Service: 03/25/24 Event Note: The patient seen and evaluated Hypotension likely secondary to multiple factores including; blood pressure medications, dehydration rather than severe sepsis only he received 30cc\kg IV bolus and IV Albumin bolus as well Lactic acidosis multifactorial from renal failure CT scan showing possible SBO , pending surgery eval Proctitis suspected as well per CT Atelatasis in LLL and possible infiltrates; to cover with IV Vancomycin and Flagyl for now follow Vanco trough follow cultures Nephrology consulted for dialysis Critical care consulted for persistent hypotension Time Spent With Patient Time: Total time managing care of this patient today ____ minutes.
[2024-03-25 13:03] LABS: Reflex Lactate? Lactic Acid Added
--- NOTE | 2024-03-25 13:33 | PHA.MEDREC ---
Addendum entered by Sara Menezes RPh 03/25/24 14:42: Med rec was reviewed by [facility]. Original Note: Pharmacy Consult ? Medication Reconciliation Pharmacy has completed the medication reconciliation. Patient was just discharged [facility] [place] and [facility]. Util[facility] and list from [facility] to confirm med list. made multiple attempt to contact [facility] to confirm what day of treatment patient is on for Vancomycin 125 mg, however could not contact. will update med rec if she calls back with an update.
[2024-03-25] MEDS: Midodrine HCl 5 MG TABLET PO (14:36)
[2024-03-25] MEDS: vancomycin HCL 1,250 MG in 0.9 % Sodium Chloride 250 ML 166.67 MG IV (14:36)
--- NOTE | 2024-03-25 14:44 | W.PM.CCCN ---
History of Present Illness Data of Consult Service Date: 03/25/24 Primary Care Provider: Anabelle HERNANDEZ Reason for consult: Hypotension 78-year-old male with history of ESRD on HD MWF, colorectal cancer status post low anterior resection with diverting loop ileostomy and reversal at [facility], recurrent c diff, chronic R hydonephrosis, and atrial fibrillation on Eliquis presented to the ED with nausea, vomiting and diarrhea 3 to 4 times a day for past several days. he was found to be hypotensive, admitted to hospitalist service. Received 2 L of NS bolus, 200 cc of albumin despite which his blood pressure is around 80 systolics so MICU was consulted Review of Systems Review of Systems: Yes all other systems are reviewed and are negative Constitutional: Constitutional: Reports anorexia, Denies body ache(s), Denies chills and Denies daytime sleepiness Eyes: Eyes: Denies blind spots, Denies exophthalmos and Denies change in vision ENT: Denies Normal hearing present Cardiovascular: Cardiovascular: Denies Abdominal Distension, Denies acrocyanosis, Denies chest pain and Denies chest pain at rest Respiratory: Respiratory: Denies change in phlegm color, Denies chest congestion and Denies cough Gastrointestinal: Gastrointestinal: Denies abdominal pain, Denies belching and Denies bloating Genitourinary: Genitourinary: Denies hematospermia and Denies change in libido Musculoskeletal: Musculoskeletal: Denies myalgias and Denies atrophy Integumentary/Breasts: Skin/Breast: Denies furuncle and Denies swelling Neurologic: Denies Normal hearing present, Denies Neuro-related abnormal movements and Denies behavioral changes Psychiatric: Psychiatric: Denies abnormal sleep pattern, Denies behavioral changes and Denies change in libido Endocrine: Endocrine: Denies change in libido [facility] Past Medical History Medical History Recto-vesical fistula End stage renal disease Sick sinus syndrome Postoperative hematoma involving digestive system following digestive system procedure Aftercare following left shoulder joint replacement surgery Pacemaker OA (osteoarthritis) Borderline hyperlipidemia Obesity HTN (hypertension) EtOH dependence Mild cognitive impairment Inhibited sex excitement Atrial fibrillation Cancer of kidney High cholesterol Hypertension Family History Family History Mother Heart problem Social History Social History Household Members: Significant Other Housing: House Do you presently have visiting nurse or other home services: No Alcohol intake: former Comment: refusing alarms Patient Tobacco Use Status: Former Tobacco user Tobacco use type: Cigarette Smoked in Last 30 Days: No e-Cigarette/Vaping Use: Never Used Use of substances other than those prescribed or required for medical reasons: No Advance Directives: Yes Advance Directives on File: Yes Advance Directives Date on File: 11/29/22 Do you have a plan to hurt others: No Plan service: Yes Meds Allergies Allergy/AdvReac Type Severity Reaction Status Date / Time No Known Allergies [NKA] Allergy Mild NOT Verified 03/25/24 03:29 APPLICABLE Active Medications: Current Medications Acetaminophen (Acetaminophen 325 Mg Tablet) 650 mg PO Q6H PRN PRN Reason: Pain, Mild 1-3,fever,headache Calcium Carbonate (Calcium Carbonate 750 Mg Tab.Chew) 750 mg PO Q4H PRN PRN Reason: Heartburn Fidaxomicin (Fidaxomicin 200 Mg Tablet) 200 mg PO Q12H [facility] Last Admin: 03/25/24 09:06 Dose: 200 mg Metronidazole (Flagyl) 500 mg in 100 mls @ 100 mls/hr IV Q12H [facility] Vancomycin HCl 1,250 mg/ (Sodium Chloride) 250 mls @ 166.667 mls/hr IV ONCE ONE Stop: 03/25/24 14:59 Last Admin: 03/25/24 14:36 Dose: 166.67 mls/hr Vancomycin HCl 500 mg/ Sodium (Chloride) 110 mls @ 110 mls/hr IV MoWeFr PRN PRN Reason: AFTER TROUGH RESULTS Sodium Chloride (Ns) 1,000 mls @ 999 mls/hr IV .Q1H1M [facility] Stop: 03/25/24 15:30 Last Admin: 03/25/24 14:37 Dose: 999 mls/hr Magnesium Hydroxide (Milk Of Magnesia 30 Ml Oral.Susp) 30 ml PO DAILY PRN PRN Reason: Constipation Melatonin (Melatonin 3 Mg Tablet) 6 mg PO BEDTIME PRN PRN Reason: Insomnia Midodrine (Midodrine Hcl 5 Mg Tablet) 5 mg PO TID [facility] Last Admin: 03/25/24 14:36 Dose: 5 mg Ondansetron HCl (Ondansetron Hcl 4 Mg/2 Ml Vial) 4 mg IVPUSH Q8H PRN PRN Reason: Nausea and Vomiting Pharmacy Consult (Consult Rx Vancomycin Dosing) 1 each MISCELLANE DAILY PRN PRN Reason: Consult order Sodium Chloride (0.9 % Sodium Chloride Flush 3 Ml Syringe) 3 ml IVFLUSH QSHIFT [facility] Last Admin: 03/25/24 08:47 Dose: 3 ml Home Medications ?Medication ?Instructions ?Recorded ?Confirmed ?Last Taken ?Type clindamycin phosphate 1 % lotion 1 appl topical BID PRN Acne 03/08/24 03/25/24 Unknown History clobetasol 0.05 % topical cream 1 appl topical BID PRN itching/rash 03/08/24 03/25/24 Unknown History diltiazem HCl 240 mg 240 mg PO DAILY 03/08/24 03/25/24 Unknown History capsule,extended release 24 hr, controlled (DILT-XR) lisinopril 5 mg tablet 5 mg PO DAILY 03/08/24 03/25/24 Unknown History pramoxine 1 % lotion 1 appl topical BID PRN Itching 03/08/24 03/25/24 Unknown History Physical Exam Vital Signs: Vital Signs: Last Vital Signs Temp 96.8 F 03/25/24 10:40 Pulse 61 03/25/24 13:20 Resp 14 03/25/24 13:20 BP 85/54 L 03/25/24 13:20 Pulse Ox 93 03/25/24 13:20 O2 Del Method Nasal Cannula 03/25/24 13:20 O2 Flow Rate 2 03/25/24 13:20 BMI result Body Mass Index 25.1 General: Not in acute distress, comfortable, lying in the bed Nutritional Appearance: well nourished and normal weight Eyes: appearance normal, both eyes and all related structures; Alignment and Position: alignment normal and position normal Neck: No lymphadenopathy, no thyromegaly Resp: bilateral air entry equal, no added sounds present, left subclavian dialysis catheter looks okay Cardio: Regular rate, regular rhythm; Heart sounds: S1 normal heart sound present and S2 normal heart sound present GI: soft, nontender, no guarding, no hepatosplenomegaly : bladder normal to inspection, bladder normal to palpation, no renal angle tenderness Skin: no rashes or lesions noted and elasticity normal Neuro: oriented to person, oriented to place, oriented to time and moves all extremities Neuro: Cranial nerves: No Normal hearing present Results Labs 03/25/24 03:02 03/25/24 03:02 Labs: Short CBC 03/25/24 Range/Units 03:02 WBC 14.5 H (4.8-10.8) X10*3/uL Hgb 9.8 L (14.0-18.0) g/dl Hct 31.3 L (42.0-52.0) % Plt Count 76 L (160-400) X10*3/uL BMP 03/25/24 03:02 Sodium 142 Potassium 3.4 Chloride 105 Carbon Dioxide 19 L BUN 24 H Creatinine 4.16 H* Calcium 7.0 L Liver Function 03/25/24 Range/Units 03:02 Total Bilirubin 0.8 (0.0-1.0) mg/dL AST 39 H (5-37) U/L ALT 17 (0-40) U/L Alkaline Phosphatase 121 H (39-117) U/L Albumin 1.8 L (3.5-5.0) g/dL Assessment and Plan (1) Atrial fibrillation with rapid ventricular response: Status: Acute (2) Sinus bradycardia: Status: Acute (3) C. difficile colitis: Status: Acute (4) C. difficile colitis: Status: Acute (5) Malignant neoplasm of rectum: Status: Acute (6) Acute renal failure: Qualifiers: Acute renal failure type: unspecified Qualified Code(s): N17.9 - Acute kidney failure, unspecified Status: Acute (7) End stage renal disease: Status: Acute (8) Acidosis, lactic: Status: Acute Plan Hypovolemic shock: Secondary to poor oral intake and C diff. Received 2 L of fluids and 200 cc of albumin so far Bedside echo shows normal LV systolic function with some calcified valves, small RV and RA, IVC 0.8 cm We will give him 1 L of NS bolus, initially thought of giving him standing fluids but given his ESRD we will hold off on standing fluids. We can give him another 500 cc of fluid bolus after NS if his respiratory status is stable. will continue to keep him in the loop Total time managing care of this patient today: 35 minutes.
--- NOTE | 2024-03-25 15:35 | PC.NURSE ---
ICU consult completed at this time. pt remains hypotensive despite previous interventions. per MD order, additional 1L of NS infusing at this time. will transition pt to continuous IVF @ 150mls/hr s/p IVF infusion. pt otherwise offers no complaints. denies pain. vss and up to date. nsr on the coutierier. pt remains on 2L via NC - no sob/wob noted. respirations even/unlabored. plan of care ongoing. call pate placed within reach.
[2024-03-25 15:41] LABS: ~Lactic Acid-LAB USE ONLY 1.3 mmol/L (0.5-2.0)
[2024-03-25] MEDS: 0.9 % Sodium Chloride 500 ML IV (16:36)
[2024-03-25] MEDS: cefTRIAXone sodium 1 GM VIAL IVPUSH (17:37)
--- NOTE | 2024-03-25 19:00 | PC.NURSE ---
bp 84/44. aware, states will consult icu.
--- NOTE | 2024-03-25 19:25 | PC.NURSE ---
upon assuming care at 1900 bp noted to be 84/44, MD Gamboa made aware, stated will consult with ICU. at this time recheck 100/52 in slight Trendelenburg position, MD aware of improvement. pt does not have any complaints at this time. denies cp/sob, speaking full clear sentences.
--- NOTE | 2024-03-25 19:31 | P.CONGS_ITS ---
History of Present Illness Consult details Consult date: 03/25/24 Reason for consult: other Requesting physician: Yunior Allred Narrative: Patient is a 78-year-old male with history of ESRD on HD MWF, colorectal cancer status post low anterior resection with diverting loop ileostomy and reversal at [facility], recurrent c diff, chronic R hydonephrosis, and atrial fibrillation on Eliquis who presents to the emergency department with persistent diarrhea 3- 4x/day with associated weakness. He was recently hospitalized from 03/08/24- 03/12/24 for recurrent C diff. he denies any blood in the stool, abdominal pain, nausea, vomiting or fever. He has no additional complaints including any upper respiratory symptoms or urinary symptom. In the emergency room workup revealed distended soft tympanitic abdomen and CT scan of the abdomen and pelvis showed findings consistent with small-bowel distention gas and stool in the colon questionable small-bowel obstruction versus ileus. As a result surgical consultation was carried out. Patient has been passing gas and stool however with moderate amounts. Abdomen is distended. Denies any pain. Hemodynamics of the patient continues to be hypotensive in the emergency room PMFSH Past Medical History Medical History Recto-vesical fistula End stage renal disease Sick sinus syndrome Postoperative hematoma involving digestive system following digestive system procedure Aftercare following left shoulder joint replacement surgery Pacemaker OA (osteoarthritis) Borderline hyperlipidemia Obesity HTN (hypertension) EtOH dependence Mild cognitive impairment Inhibited sex excitement Atrial fibrillation Cancer of kidney High cholesterol Hypertension Family History Family History Mother Heart problem Social History Social History Household Members: Significant Other Housing: House Do you presently have visiting nurse or other home services: No Alcohol intake: former Comment: refusing alarms Patient Tobacco Use Status: Former Tobacco user Tobacco use type: Cigarette Smoked in Last 30 Days: No e-Cigarette/Vaping Use: Never Used Use of substances other than those prescribed or required for medical reasons: No Advance Directives: Yes Advance Directives on File: Yes Advance Directives Date on File: 11/29/22 Do you have a plan to hurt others: No Plan Nutrition Risks: No Nutritional Risk service: Yes Meds Allergies Allergy/AdvReac Type Severity Reaction Status Date / Time No Known Allergies [NKA] Allergy Mild NOT Verified 03/25/24 03:29 APPLICABLE Active Medications: Current Medications Acetaminophen (Acetaminophen 325 Mg Tablet) 650 mg PO Q6H PRN PRN Reason: Pain, Mild 1-3,fever,headache Calcium Carbonate (Calcium Carbonate 750 Mg Tab.Chew) 750 mg PO Q4H PRN PRN Reason: Heartburn Ceftriaxone Sodium (Ceftriaxone Sodium 1 Gm Vial) 1 gm IVPUSH Q24H [facility] Last Admin: 03/25/24 17:37 Dose: 1 gm Fidaxomicin (Fidaxomicin 200 Mg Tablet) 200 mg PO Q12H [facility] Last Admin: 03/25/24 09:06 Dose: 200 mg Metronidazole (Flagyl) 500 mg in 100 mls @ 100 mls/hr IV Q12H [facility] Last Infusion: 03/25/24 18:57 Dose: Infused Vancomycin HCl 500 mg/ Sodium (Chloride) 110 mls @ 110 mls/hr IV MoWeFr PRN PRN Reason: AFTER TROUGH RESULTS Magnesium Hydroxide (Milk Of Magnesia 30 Ml Oral.Susp) 30 ml PO DAILY PRN PRN Reason: Constipation Melatonin (Melatonin 3 Mg Tablet) 6 mg PO BEDTIME PRN PRN Reason: Insomnia Midodrine (Midodrine Hcl 5 Mg Tablet) 5 mg PO TID [facility] Last Admin: 03/25/24 14:36 Dose: 5 mg Ondansetron HCl (Ondansetron Hcl 4 Mg/2 Ml Vial) 4 mg IVPUSH Q8H PRN PRN Reason: Nausea and Vomiting Pharmacy Consult (Consult Rx Vancomycin Dosing) 1 each MISCELLANE DAILY PRN PRN Reason: Consult order Sodium Chloride (0.9 % Sodium Chloride Flush 3 Ml Syringe) 3 ml IVFLUSH QSHIFT [facility] Last Admin: 03/25/24 16:28 Dose: Not Given Home Medications ?Medication ?Instructions ?Recorded ?Confirmed ?Last Taken ?Type clindamycin phosphate 1 % lotion 1 appl topical BID PRN Acne 03/08/24 03/25/24 Unknown History clobetasol 0.05 % topical cream 1 appl topical BID PRN itching/rash 03/08/24 03/25/24 Unknown History diltiazem HCl 240 mg 240 mg PO DAILY 03/08/24 03/25/24 Unknown History capsule,extended release 24 hr, controlled (DILT-XR) lisinopril 5 mg tablet 5 mg PO DAILY 03/08/24 03/25/24 Unknown History pramoxine 1 % lotion 1 appl topical BID PRN Itching 03/08/24 03/25/24 Unknown History Physical Exam 2 Vital Signs: Vital Signs: Last Vital Signs Temp 97.4 F 03/25/24 18:15 Pulse 92 03/25/24 19:24 Resp 16 03/25/24 19:24 BP 100/52 L 03/25/24 19:24 Pulse Ox 98 03/25/24 19:24 O2 Del Method Room Air 03/25/24 19:24 O2 Flow Rate 2 03/25/24 18:48 BMI result Body Mass Index 25.1 Const: General: cooperative Resp: Effort & Inspection: normal respiratory effort Auscultation: clear to auscultation bilaterally Cardio: Rate: tachycardic GI: Other: Abdomen is very distended tympanitic nontender but soft. Some high-pitched bowel sounds are heard the patient passing gas and stool during the exam. Hernia at the level of the umbilical spot without any incarcerated material. Results Labs 03/25/24 03:02 03/25/24 03:02 Labs: Abnormal lab results 03/25/24 03/25/24 03/25/24 Range/Units 03:02 06:26 11:00 WBC 14.5 H (4.8-10.8) X10*3/uL RBC 2.81 L (4.60-5.80) X10*6/uL Hgb 9.8 L (14.0-18.0) g/dl Hct 31.3 L (42.0-52.0) % MCV 111.4 H (80.0-98.0) fL MCH 34.9 H (27.0-33.0) pg RDW 25.7 H (11.0-16.0) % Plt Count 76 L (160-400) X10*3/uL MPV 12.5 H (9.4-12.4) fL Immature Gran % (Auto) 1.0 H (0.0-0.4) % Neut % (Auto) 82.4 H (45-73) % Lymph % (Auto) 10.8 L (20-40) % Abs Immat Gran (auto) 0.15 H (0.00-0.03) X10*3/uL Absolute Neuts (auto) 11.9 H (2.0-8.3) x10*3/uL Absolute Nucleated RBC 0.030 H (0.0-0.012) X10*3/uL PT 21.3 H (10.9-12.4) SEC INR 1.8 H (0.9-1.1) Carbon Dioxide 19 L (22-29) mmol/L Anion Gap 21 H (12-20) BUN 24 H (9-16) mg/dL Creatinine 4.16 H* (0.5-1.4) mg/dL Lactic Acid 7.2 H* 3.1 H* (0.5-2.0) mmol/L Lactic Acid F/U @ 2Hr 6.5 H* (0.5-2.0) mmol/L Calcium 7.0 L (8.4-10.2) mg/dL AST 39 H (5-37) U/L Alkaline Phosphatase 121 H (39-117) U/L Troponin I High Sens 77.2 H D (<3.5-35.0) ng/L Total Protein 5.2 L (6.5-8.0) g/dL Albumin 1.8 L (3.5-5.0) g/dL Lipase 5 L (8-78) U/L Short CBC 03/25/24 Range/Units 03:02 WBC 14.5 H (4.8-10.8) X10*3/uL Hgb 9.8 L (14.0-18.0) g/dl Hct 31.3 L (42.0-52.0) % Plt Count 76 L (160-400) X10*3/uL BMP 03/25/24 03:02 Sodium 142 Potassium 3.4 Chloride 105 Carbon Dioxide 19 L BUN 24 H Creatinine 4.16 H* Calcium 7.0 L Liver Function 03/25/24 Range/Units 03:02 Total Bilirubin 0.8 (0.0-1.0) mg/dL AST 39 H (5-37) U/L ALT 17 (0-40) U/L Alkaline Phosphatase 121 H (39-117) U/L Albumin 1.8 L (3.5-5.0) g/dL All other labs normal. Imaging Abdomen CT scan report/results: report reviewed and image reviewed CT scan - pelvis: report reviewed and image reviewed Additional studies: Date of Service: 03/25/24 Procedure(s): CT abdomen pelvis wo IV con Accession Number(s): [id number] cc: Anabelle Duncan RN; Denzel Todd MD~ Report Number: [id number]: Total DLP = 711.00 mGy-cm ADDENDUMThis document has been electronically signed by: Rudi Sheets M.D. on 03/25/2024 05:53:11 ADDENDUM: This report was discussed with Perez Gastelum on Mar 25, 2024 05:58:00 EST. This document has been electronically signed by: Marine Jackson on 03/25/2024 05:58:41 Addendum Dictated By: Rudi Sheets MD Addendum Signed By: <Electronically signed by Rudi Sheets MD in [place]> 03/25/24558 Addendum Cosigned By: DD/ /06/553 TD/TT: 03/25/2401/06/558 CLINICAL HISTORY: C diff colitis CT ABDOMEN AND PELVIS WITHOUT CONTRAST COMPARISON: 03/09/2024. FINDINGS: Lack of IV contrast lowers the sensitivity of the exam. Postsurgical changes are again noted involving small bowel. There is dilatation of multiple loops of mid small bowel, for example measuring 3.8 cm in caliber on axial image 555 of series 4. Some feces is noted within portions of mid to distal small bowel, for example seen on axial image 178. The presence of feces suggests stasis. There is no definite high-grade transition point. There is gradual narrowing in caliber of the distal small bowel loops, beginning distal to bowel anastomotic sutures on axial image 332. The patient has a reported history of a partial colectomy. Rectum is underdistended which makes accurate assessment difficult, However proctitis is again suspected. Coalescent fluid is again noted abutting the rectum, for example seen on axial image 79. This does not appear to be significantly changed. Presacral stranding does not appear to be significantly changed. A gas bubble in association with the rectum on axial image 84 is favored to be intraluminal rather than mural in location. The colon does not appear to be thick-walled. In between the proximal portions of the common iliac arteries is some coalescent stranding, similar to the prior study. A collection of gas is noted in association with this, for example seen on axial images 65-69. Another dot of gas is seen on axial image 64. Imaging findings are of uncertain significance but raise the question of a sinus tract or fistula. There are small bilateral pleural effusions. Left pleural effusion does not appear to be significantly changed. Right pleural effusion is increased since the prior study. Atelectasis/consolidation is noted within the left lower lobe. There also infiltrates in the left lingula and left lower lobe which are new since the prior study, for example seen on axial image 4. Mild ground-glass infiltrate is noted in the right middle lobe on coronal image 37. Small amount of perihepatic ascites is noted. Calcified granuloma is noted within the right hepatic lobe. Gallbladder is distended. Some layering increased attenuation material is noted in the gallbladder which might be related to vicarious excretion of contrast from a prior CT study. Common bile duct is less dilated on the current study, measuring 9-10 mm on coronal image 47. Previously it measured approximately 16-17 mm by my measurements. Stomach is mildly distended with enteric contents and some gas. No CT evidence of acute pancreatitis. 1.3 cm cystic lesion in the pancreatic body is seen on axial image 33, similar to the prior study. The spleen is unremarkable. Thickening of the adrenal glands is noted. Moderate right-sided hydroureteronephrosis does not appear to be significantly changed. No evidence of an obstructing stone. The most distal aspect of the right ureter is not dilated. A stricture is not excluded. Heterogeneous left renal lesion is again noted, measuring approximately 2.4 cm in AP diameter on axial image 37, this does not appear to be significantly changed. No left-sided hydronephrosis or left-sided obstructing stone. Calcific plaque is again noted in the abdominal aorta, without evidence of an aneurysm. Chronic walled-off fluid collection within the mesentery appears slightly smaller on the current study, measuring 4.3 x 3.6 cm on axial image 44, previously it measured approximately 4.4 x 3.9 cm. Subcutaneous edema/anasarca is noted. The bone windows demonstrate no acute abnormalities. IMPRESSION: 1. Dilatation of multiple loops of mid small bowel measuring up to 3.8 cm in caliber. No definite high-grade transition point. There is gradual narrowing in caliber of the distal small bowel loops, as detailed above. Imaging findings raise the question of a small-bowel obstruction versus ileus. Consultation with a surgeon is advised. 2. Proctitis is again suspected. Coalescent fluid is again noted abutting the rectum which does not appear to be significantly changed. Gas bubble in association with the rectum is favored to be intraluminal rather than mural in location, this can be further assessed on a follow-up exam. 3. In between the proximal portions of the common iliac arteries is some coalescent stranding, similar to the prior study. A collection of gas is noted in association with this. Separate from this collection of gas is another tiny gas bubble. Imaging findings are of uncertain significance but raise the question of a sinus tract or fistula. This can also be further addressed at the time of surgical consultation. 4. Small bilateral pleural effusions. The right pleural effusion is increased since the prior study. There is atelectasis/consolidation in the left lower lobe. There are new infiltrates bilaterally. 5. Small amount of perihepatic ascites. 6. Common bile duct is less dilated on the current exam, measuring 9-10 mm. Previously it measured 16-17 mm. 7. Pancreatic cystic lesion is similar to the prior study. Differential considerations include a pseudocyst or cystic pancreatic neoplasm. This can also be further addressed at the time of surgical consultation. 8. Moderate right-sided hydroureteronephrosis does not appear to be significantly changed. The most distal aspect of the right ureter is not dilated. A stricture is not excluded. 9. Heterogeneous left renal lesion is again noted which does not appear to be significantly changed. Follow-up nonurgent CT kidneys, without and with contrast, is advised. 10. Additional findings are detailed above. This document has been electronically signed by: Rudi Sheets M.D. on 03/25/2024 05:53:11 Dictated By: Rudi Sheets MD Signed By: <Electronically signed by Rudi Sheets MD in [place]> 03/25/24 0554 DD/ 0553 TD/TT: 03/25/24 0553 Relations Director: Assessment and Plan (1) Ileus: Status: Acute Plan 78-year-old male coming in with the abdominal distention and multiple other medical issues recent diagnosis and treatment for C diff. at this point patient passing gas and stool abdomen nontender. Abdomen however he was distended with some high-pitched bowel sounds no nausea or vomiting. At this point plans to hold off on NG tube and continue with medical management and IV resuscitation. Check stools for C diff treatment accordingly. At this point no need for any urgent surgical intervention. Patient had a similar event towards the end of last year treated conservatively when he was undergoing chemoradiation. This seems to be more of an ileus type pattern maybe secondary to his C diff colitis. CT scan does not show significant: Inflammatory changes so once again no need for any surgical intervention for this. Medical management to continue with his resuscitation and we will follow Procedures Date of Service Date of Service: 03/25/24
--- NOTE | 2024-03-25 19:51 | P.EN_ITS ---
Event Note Date of Service: 03/25/24 Event Note: Nurse reported blood pressure 84/44. Patient is ESRD and has received a total of 6 L crystalloid/colloids. Discussed with sales team recruiter, Dr Campo and will transfer the patient to ICU for close monitoring and management of septic shock in the setting of Gram-negative bacteremia. Time Spent With Patient Time: Total time managing care of this patient today ____ minutes.
--- NOTE | 2024-03-25 20:18 | PC.NURSE ---
report given to agriculture inspector
--- NOTE | 2024-03-25 20:34 | P.PNCC_ITS ---
Subjective Subjective Date of Service: 03/25/24 Interval History: Clinical Precedent to this date: ?78-year-old male well known to us who has a history of end-stage renal disease on dialysis Sunday and Fridays, history of colorectal carcinoma status post anterior colectomy with diverting loop ileostomy and reversal [facility], recurrent C diff, chronic right hydronephrosis, atrial fibrillation on Eliquis, hypertension, sick sinus syndrome who has a pacer, rectal vesicular fistula, obesity, alcohol dependence, renal carcinoma, hyperlipidemia among others; patient had presented to the emergency room on 03/25/2024 with complaints of generalized weakness and ongoing diarrhea for 3-4 days status post recent hospitalization and discharged on 03/12/2024 due to recurrent C diff. His workup was significant for white count of 14.5, H and H of 9.8 and 31.3, chronic creatinine elevation of 4.16 potassium 3.4.? The patient was noted to be hypothermic, hypotensive and having lactic acid of 7.2, he received 6.5 L of IV fluids total without much improvement of his blood pressure when he normally he is hypertensive.? Given the fluids resuscitation attempt in the ongoing hypotension, patient was transferred to the ICU for further care.? He had been started on metronidazole and subsequently changed to Dificid.? In addition the patient was found to have CT findings consistent with possible small-bowel obstruction versus ileus; in addition to proctitis, small bilateral pleural effusion and small perihepatic ascites with chronic right-sided hydronephrosis.? Surgical consult was requested, Nephrology consult pending dialysis tomorrow.? Lynnette is on hold pending surgical consultation. Currently patient states he feels slightly better but still tire, denies abdominal pain, melena or hematochezia. Critical Care Time (minutes): 60 Physical Exam 2 Vital Signs: Vital Signs: Last Vital Signs Temp 97.5 F 03/25/24 20:22 Pulse 60 03/25/24 20:22 Resp 18 03/25/24 20:22 BP 97/42 L 03/25/24 20:22 Pulse Ox 96 03/25/24 20:22 O2 Del Method Nasal Cannula 03/25/24 20:22 O2 Flow Rate 4 03/25/24 20:22 BMI result Body Mass Index 25.1 Sepsis exam done at 20:45pm ? General:? Alert oriented x3 no acute distress Skin:? Intact, no lesions or rash HEENT:? Normocephalic, atraumatic, extraocular movements intact, neck is supple, no lymphadenopathy.? Buccal mucosa moist.? Throat midline. Cardiac:? Clear S1-S2, no murmurs rubs or gallops. Left chest Perm a Cath Pulmonary:? Diminished lung sounds bilaterally with fine crackles at both bases, left more than right, no rhonchi, no wheezing. Abdomen:? Protuberant, positive high pitched bowel sounds in all 4 quadrants.? Somewhat hard, nontender, no rebound or guarding.? No CVA tenderness. Musculoskeletal:? Moving all 4 extremities upon request a major joints, no calf tenderness, no edema. Neurologic:? As above, no focal deficits. Vascular:? 2+ pulses upper and lower extremities distally. ?Less than 2nd capillary refill of the finger and toes bilaterally upper and lower extremities. Objective Data Labs 03/26/24 06:21 03/26/24 05:00 Labs: Laboratory Results - last 24 hr 03/25/24 03/25/24 03/25/24 03:02 03:08 06:26 WBC 14.5 H RBC 2.81 L Hgb 9.8 L Hct 31.3 L MCV 111.4 H MCH 34.9 H MCHC 31.3 RDW 25.7 H Plt Count 76 L MPV 12.5 H Immature Gran % (Auto) 1.0 H Neut % (Auto) 82.4 H Lymph % (Auto) 10.8 L Mathews % (Auto) 5.7 Eos % (Auto) 0.0 Baso % (Auto) 0.1 Lymph # (Auto) 1.6 Mathews # (Auto) 0.8 Eos # (Auto) 0.0 Baso # (Auto) 0.0 Abs Immat Gran (auto) 0.15 H Absolute Neuts (auto) 11.9 H Absolute Nucleated RBC 0.030 H Nucleated RBC % (auto) 0.2 Hold Purple Top SEE NOTE PT 21.3 H INR 1.8 H VBG pH 7.34 VBG pCO2 42 VBG pO2 27 VBG HCO3 23 VBG O2 Saturation 31.0 VBG Base Excess -1.7 Sodium 142 Potassium 3.4 Chloride 105 Carbon Dioxide 19 L Anion Gap 21 H BUN 24 H Creatinine 4.16 H* Estim Creat Clear Calc 14.8 Estimated GFR 14 Random Glucose 78 Lactic Acid 7.2 H* Lactic Acid F/U @ 2Hr 6.5 H* Calcium 7.0 L Total Bilirubin 0.8 AST 39 H ALT 17 Alkaline Phosphatase 121 H Troponin I High Sens 77.2 H D Total Protein 5.2 L Albumin 1.8 L Lipase 5 L 03/25/24 03/25/24 11:00 15:18 WBC RBC Hgb Hct MCV MCH MCHC RDW Plt Count MPV Immature Gran % (Auto) Neut % (Auto) Lymph % (Auto) Mathews % (Auto) Eos % (Auto) Baso % (Auto) Lymph # (Auto) Mathews # (Auto) Eos # (Auto) Baso # (Auto) Abs Immat Gran (auto) Absolute Neuts (auto) Absolute Nucleated RBC Nucleated RBC % (auto) Hold Purple Top PT INR VBG pH VBG pCO2 VBG pO2 VBG HCO3 VBG O2 Saturation VBG Base Excess Sodium Potassium Chloride Carbon Dioxide Anion Gap BUN Creatinine Estim Creat Clear Calc Estimated GFR Random Glucose Lactic Acid 3.1 H* Lactic Acid F/U @ 2Hr 1.3 Calcium Total Bilirubin AST ALT Alkaline Phosphatase Troponin I High Sens Total Protein Albumin Lipase Microbiology Microbiology Results: Microbiology 03/25/24 03:02 Blood - Venous Blood Culture - Preliminary Prelim: GNR Gram Stain only 03/25/24 03:16 Blood - Venous Blood Culture - Preliminary Prelim: GNR Gram Stain only Progress Note: A&P Assessment and plan (1) Recurrent Clostridioides difficile diarrhea: Status: Acute Plan ASSESSMENT AND PLAN: 1. Acute septic shock likely due to Proctitis 2. Acute hypovolemic shock due to GI losses 3. Chronic C diff colitis (negative test today) may require retesting 4. Acute lactic acidosis due to the above (improved) 5. Chronic right-sided hydronephrosis 6. Chronic end-stage renal disease in need of hemodialysis tomorrow 7. Rate controlled atrial fibrillation (Eliquis on hold pending surgical consultation) 8. Ileus (medical treatment only) post surg eval unlikely SBO 9. Suspected acute proctitis 10. Hypoalbuminemia 11. Pseudo hypocalcemia with corrected calcium of 8.6. 12. Thrombocytopenia likely due to Eliquis intake and chronic disease 13.Microcytic Anemia of chronic disease 14. 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 We will start him on albumin and if necessary start him on pressors.? Continue with Rocephin given suspicion of acute proctitis.? We will continue with metronidazole and Dificid; although his CDiff TOx screen is Negative.? Vicente oliver,Appreciate Surgical Consult..? Replace electrolytes as needed.? Nephrology consult for possible dialysis tomorrow. Patient may need infectious disease consult, given recurrent C diff, patient may be a candidate for future fecal transplant. GI PROPHYLAXIS:? IV ppi DVT PROPHYLAXIS: ?Pneumatic stockings while in bed Sepsis follow-up exam done at 02:05 on 03/26/2024 General:? Alert oriented x3 no acute distress Cardiac:? Clear S1-S2, no murmurs rubs or gallops. Left chest Perm a Cath Pulmonary:? Diminished lung sounds; increased bilaterally fine crackles at both bases, left more than right, no rhonchi, no wheezing. Musculoskeletal:? Moving all 4 extremities upon request a major joints, no calf tenderness, no edema. Neurologic:? As above, no focal deficits. Vascular:? 2+ pulses upper and lower extremities distally. ?Less than 2nd capillary refill of the finger and toes bilaterally upper and lower extremities. Patient is sleeping and comfortable, his MAP has been 60-63 will start levophed as he now sounds more congested, patient is known to produce some urine. Pts h and h this am is significantly low, will recheck to r/o lab error; in the mean time will type and cross and consider transfusion with HD; hold Eliquis, obtain occult blood studies. Critical care time used for critical evaluation of this patient, diagnosis, treatment and coordination of care, review her records and documentation TOTAL CRITICAL CARE TIME?75? MIN . discussion and coordination with consultants, completely separate from any procedures performed. Patient's care was discussed in detail with Dr. Campo is aware of all the above as well as the plan of care for this patient. Quality Stroke Does the patient have a stroke diagnosis?: No VTE Prior VTE?: No VTE Risk Level:: Medical - moderate - high VTE Device Contraindication: Treatment Not Indicated VTE Drug Contraindication: N/A - Med Ordered
[2024-03-25 22:45] LABS: CDiff Gene PCR NEGATIVE (Negative)
[2024-03-26] VITALS (47 sets, daily range): BP systolic 83–129; BP diastolic 40–61; PULSE 60–100; RESP 10–20; TEMP 36.3–38.8; O2SAT 95–100
[2024-03-26] MEDS: Norepinephrine Bitartrate/D5W 8 MG/250 ML PLAST..BAG 7.23 MG IVCONT (02:15)
--- NOTE | 2024-03-26 04:14 | W.PM.CCHP ---
Procedures Date of Service Date of Service: 03/26/24 <SEBASTIAN Da Silva - Last Filed: 03/26/24 06:22> 03/26/24 <Bryson Campo MD - Last Filed: 03/26/24 10:42> Central Line Placement Right IJ: Central Line Comments: ongoing hypotension, RNs unable to get an IV, pt on levophed <SEBASTIAN Da Silva - Last Filed: 03/26/24 06:22> Consent for Procedure: Emergent-no informed consent obtained <SEBASTIAN Da Silva - Last Filed: 03/26/24 06:22> Time out performed: Yes <SEBASTIAN Da Silva - Last Filed: 03/26/24 06:22> Sterile Technique Used: Yes <SEBASTIAN Da Silva - Last Filed: 03/26/24 06:22> Patient placed on monitor/pulse ox: Yes <SEBASTIAN Da Silva - Last Filed: 03/26/24 06:22> MD prep: mask, gown and gloves <SEBASTIAN Da Silva - Last Filed: 03/26/24 06:22> Central line prep: Chlorhexidine scrub <SEBASTIAN Da Silva - Last Filed: 03/26/24 06:22> Local anesthesia used: lidocaine 1% <SEBASTIAN Da Silva - Last Filed: 03/26/24 06:22> Amount of anesthesia used (ml): 5 <SEBASTIAN Da Silva - Last Filed: 03/26/24 06:22> Ultrasound used for placement: Yes <SEBASTIAN Da Silva - Last Filed: 03/26/24 06:22> Central line lumen inserted: triple (160 cm) <SEBASTIAN Da Silva - Last Filed: 03/26/24 06:22> Post procedure: sutured in place, good blood return, all ports aspirated, flushed, capped and sterile dressing applied <SEBASTIAN Da Silva - Last Filed: 03/26/24 06:22> Post procedure x-ray: tip of catheter in good position and no pneumothorax seen <SEBASTIAN Da Silva - Last Filed: 03/26/24 06:22> Patient tolerated procedure: well and other (30 cc blood loss as pt is on Eliquis) <SEBASTIAN Da Silva - Last Filed: 03/26/24 06:22> Complications: none <SEBASTIAN Da Silva - Last Filed: 03/26/24 06:22>
[2024-03-26 05:03] LABS: VBG Base Excess -8.3 mmol/L; VBG HCO3 16 mmol/L (22-26); VBG pCO2 32 mmHg; VBG pH 7.32 (7.32-7.43); VBG pO2 64 mmHg
[2024-03-26 05:15] LABS: Venous Blood Gas Refer to POC result
[2024-03-26] MEDS: metroNIDAZOLE/NS 500 MG/100 ML PIGGYBACK 100 MG IV (05:22)
[2024-03-26] MEDS: Pantoprazole Sodium 40 MG/10 ML VIAL IVPUSH ×3 (05:23→16:38)
[2024-03-26 05:54] LABS: Anion Gap 17 (12-20); Blood Urea Nitrogen 31 mg/dL (9-16); Calcium 6.4 mg/dL (8.4-10.2); Carbon Dioxide 16 mmol/L (22-29); Chloride 114 mmol/L (96-108); Creatinine Clr Calc Pharmacy 14.1; Estimated Glomerular Filt Rate 13; Glucose Random 65 mg/dL (60-115); Sodium 144 mmol/L (135-145)
[2024-03-26 06:29] LABS: Basophils Percent Auto 0.1 % (0-2); Lymphocytes Absolute Auto 0.6 X10*3/uL (1.2-4.9); PLT CLUMP 1; SCAN SMEAR FLAG 1
[2024-03-26 06:29] LABS: Mean Corpuscular HGB Conc 30.3 g/dl (31.0-36.0); Mean Corpuscular Hemoglobin 34.1 pg (27.0-33.0); Mean Platelet Volume 12.2 fL (9.4-12.4); NRBC Pct Auto 0.2 /100WBC (0.0-0.2); Red Blood Count 1.64 X10*6/uL (4.60-5.80); Red Cell Distribution Width 25.3 % (11.0-16.0); White Blood Count 13.3 X10*3/uL (4.8-10.8)
[2024-03-26 06:30] LABS: Imm Gran Abs Auto 0.09 X10*3/uL (0.00-0.03); Imm Gran Pct Auto 0.7 % (0.0-0.4); Lymphocytes Percent Auto 4.3 % (20-40); MANUAL DIFF FLAG SCAN; Mean Corpuscular Hemoglobin 34.4 pg (27.0-33.0); Mean Platelet Volume 12.3 fL (9.4-12.4); Monocytes Absolute Auto 0.9 X10*3/uL (0.1-1.2); Monocytes Percent Auto 6.8 % (2-11); NRBC Pct Auto 0.1 /100WBC (0.0-0.2); Neutrophils Absolute Auto 12.2 x10*3/uL (2.0-8.3); Neutrophils Percent Auto 88.1 % (45-73); Red Cell Distribution Width 25.4 % (11.0-16.0)
[2024-03-26 06:31] LABS: Platelet Count 64 X10*3/uL (160-400); White Blood Count 13.8 X10*3/uL (4.8-10.8)
[2024-03-26 06:32] LABS: Hemoglobin 6.2 g/dl (14.0-18.0)
[2024-03-26 06:33] LABS: Hematocrit 20.7 % (42.0-52.0)
[2024-03-26 06:33] LABS: Mean Corpuscular Volume 112.8 fL (80.0-98.0); Platelet Count 65 X10*3/uL (160-400)
[2024-03-26 06:34] LABS: Hematocrit 18.5 % (42.0-52.0); Hemoglobin 5.6 g/dl (14.0-18.0)
[2024-03-26 06:36] LABS: SLIDE REVIEW VERIFIED
[2024-03-26] MEDS: cefTRIAXone sodium 1 GM VIAL IVPUSH (08:31)
[2024-03-26] MEDS: Norepinephrine Bitartrate/D5W 8 MG/250 ML PLAST..BAG 39.04 MG IVCONT ×2 (09:15→14:37)
[2024-03-26 10:21] LABS: OBS Int Ctl Valid YES; OBS1 POSITIVE (NEGATIVE)
--- NOTE | 2024-03-26 10:42 | P.PNCC_ITS ---
Subjective Subjective Date of Service: 03/26/24 Critical Care Time (minutes): 35 Comment: Blood cultures positive for Gram-negative rods, patient has a indwelling dialysis line. Continues to be on vasopressor support Undergoing dialysis this morning Physical Exam 2 Vital Signs: Vital Signs: Last Vital Signs Temp 97.8 F 03/26/24 08:00 Pulse 73 03/26/24 09:15 Resp 12 03/26/24 09:00 BP 110/49 L 03/26/24 09:15 Pulse Ox 98 03/26/24 09:00 O2 Del Method Nasal Cannula 03/26/24 09:00 O2 Flow Rate 4 03/26/24 09:00 BMI result Body Mass Index 25.1 General: In support acute distress, ill appearing and tired appearing Nutritional Appearance: well nourished and overweight Eyes: appearance normal, both eyes and all related structures; Alignment and Position: alignment normal and position normal Neck: No lymphadenopathy, no thyromegaly Resp: bilateral air entry equal, bibasilar crackles heard, patient is dyspneic Cardio: Regular rate, regular rhythm; Heart sounds: S1 normal heart sound present and S2 normal heart sound present GI: soft, nontender, no guarding, no hepatosplenomegaly : bladder normal to inspection, bladder normal to palpation, no renal angle tenderness Skin: no rashes or lesions noted and elasticity normal Neuro: oriented to person, oriented to place, oriented to time and moves all extremities Objective Data Labs 03/26/24 06:21 03/26/24 05:00 Labs: Laboratory Results - last 24 hr 03/25/24 03/25/24 03/25/24 11:00 15:18 21:30 WBC RBC Hgb Hct MCV MCH MCHC RDW Plt Count MPV Immature Gran % (Auto) Neut % (Auto) Lymph % (Auto) [place] % (Auto) Eos % (Auto) Baso % (Auto) Lymph # (Auto) [place] # (Auto) Eos # (Auto) Baso # (Auto) Abs Immat Gran (auto) Absolute Neuts (auto) Absolute Nucleated RBC Nucleated RBC % (auto) Smear Tech's Comments VBG pH VBG pCO2 VBG pO2 VBG HCO3 VBG O2 Saturation VBG Base Excess Sodium Potassium Chloride Carbon Dioxide Anion Gap BUN Creatinine Estim Creat Clear Calc Estimated GFR Random Glucose Lactic Acid 3.1 H* Lactic Acid F/U @ 2Hr 1.3 Calcium Stool Occult Blood C. difficile Tox B Gene NEGATIVE Blood Type Antibody Screen Crossmatch 03/26/24 03/26/24 03/26/24 04:58 05:00 06:21 WBC 13.3 H 13.8 H RBC 1.64 L D 1.80 L Hgb 5.6 L* D 6.2 L* Hct 18.5 L* D 20.7 L* MCV 112.8 H 115.0 H MCH 34.1 H 34.4 H MCHC 30.3 L 30.0 L RDW 25.3 H 25.4 H Plt Count 65 L 64 L MPV 12.2 12.3 Immature Gran % (Auto) 0.7 H Neut % (Auto) 88.1 H Lymph % (Auto) 4.3 L [place] % (Auto) 6.8 Eos % (Auto) 0.0 Baso % (Auto) 0.1 Lymph # (Auto) 0.6 L [place] # (Auto) 0.9 Eos # (Auto) 0.0 Baso # (Auto) 0.0 Abs Immat Gran (auto) 0.09 H Absolute Neuts (auto) 12.2 H Absolute Nucleated RBC 0.020 H 0.020 H Nucleated RBC % (auto) 0.2 0.1 Smear Tech's Comments VERIFIED VBG pH 7.32 VBG pCO2 32 VBG pO2 64 VBG HCO3 16 L VBG O2 Saturation Not Reportable VBG Base Excess -8.3 Sodium 144 Potassium 3.0 L Chloride 114 H Carbon Dioxide 16 L Anion Gap 17 BUN 31 H Creatinine 4.36 H* Estim Creat Clear Calc 14.1 Estimated GFR 13 Random Glucose 65 Lactic Acid Lactic Acid F/U @ 2Hr Calcium 6.4 L D Stool Occult Blood C. difficile Tox B Gene Blood Type A Positive Antibody Screen NEGATIVE Crossmatch See Detail 03/26/24 10:00 WBC RBC Hgb Hct MCV MCH MCHC RDW Plt Count MPV Immature Gran % (Auto) Neut % (Auto) Lymph % (Auto) [place] % (Auto) Eos % (Auto) Baso % (Auto) Lymph # (Auto) [place] # (Auto) Eos # (Auto) Baso # (Auto) Abs Immat Gran (auto) Absolute Neuts (auto) Absolute Nucleated RBC Nucleated RBC % (auto) Smear Tech's Comments VBG pH VBG pCO2 VBG pO2 VBG HCO3 VBG O2 Saturation VBG Base Excess Sodium Potassium Chloride Carbon Dioxide Anion Gap BUN Creatinine Estim Creat Clear Calc Estimated GFR Random Glucose Lactic Acid Lactic Acid F/U @ 2Hr Calcium Stool Occult Blood POSITIVE C. difficile Tox B Gene Blood Type Antibody Screen Crossmatch Microbiology Microbiology Results: Microbiology 03/25/24 03:16 Blood - Venous Blood Culture - Preliminary Gram negative ramesh 03/25/24 03:02 Blood - Venous Blood Culture - Preliminary Gram negative ramesh Progress Note: A&P Assessment and plan (1) Septic shock: Status: Acute (2) Atrial fibrillation with rapid ventricular response: Status: Acute (3) End stage renal disease: Status: Acute (4) C. difficile colitis: Status: Acute Plan Septic shock: Received significant amount of fluid boluses but still remains hypotensive needing vasopressor support Currently on Levophed, titrate to keep map above 65 mm Hg Blood cultures positive for Gram-negative rods, unclear source possibly from his gut however can not rule out line infection as of now. We will escalate the antibiotics to meropenem as patient has poor response to ceftriaxone so far. We will repeat blood cultures from the port Acute blood loss anemia: Has some blood loss in the stool, with guaiac-positive possibly from enteritis. Patient has a longstanding history of refractory C diff, continue fidaxomicin, Flagyl End-stage renal disease: Plan to undergo renal replacement therapy today Has left subclavian port, on M/W/F dialysis schedule Low-sodium, potassium and phosphorus diet colorectal cancer: status post low anterior resection with diverting loop ileostomy and reversal at [facility] atrial fibrillation: Eliquis withheld due to concerns of blood loss anemia Prophylaxis: SCD, pantoprazole Quality Stroke Does the patient have a stroke diagnosis?: No VTE Prior VTE?: No VTE Risk Level:: Medical - moderate - high VTE Device Contraindication: Treatment Not Indicated VTE Drug Contraindication: N/A - Med Ordered
[2024-03-26] MEDS: Meropenem 500 MG VIAL IVPUSH (13:26)
[2024-03-26 14:18] LABS: Adenovirus F 40/41 Not Detected (Not Detect.); Astrovirus Not Detected (Not Detect.); Campylobacter Not Detected (Not Detect.); Cryptosporidium Not Detected (Not Detect.); Cyclospora cayetanensis Not Detected (Not Detect.); E. coli EAEC Not Detected (Not Detect.); E. coli EPEC Detected (Not Detect.); E. coli ETEC Not Detected (Not Detect.); E. coli STEC Not Detected (Not Detect.); Entamoeba histolytica Not Detected (Not Detect.); Giardia lamblia Not Detected (Not Detect.); Norovirus GI/GII Not Detected (Not Detect.); Plesiomonas shigelloides Not Detected (Not Detect.); Rotavirus A Not Detected (Not Detect.); Salmonella Not Detected (Not Detect.); Sapovirus Not Detected (Not Detect.); Shigella sp./EIEC Not Detected (Not Detect.); Vibrio Not Detected (Not Detect.); Vibrio Cholerae Not Detected (Not Detect.); Yersinia enterocolitica Not Detected (Not Detect.)
--- NOTE | 2024-03-26 14:32 | MHC.CM.PN ---
Pt transferred to ICU for BP management: on Levo, + bacteremia, receiving HD. Pt originally from home w/family and [facility] - ? needing additional support or a higher level of care. CM to follow for finalization of d/c plan
--- NOTE | 2024-03-26 15:03 | PM.PNGS ---
Subjective Subjective Date of Service: 04/01/24 Interval history: Patient denies any abdominal pain No reported nausea or vomiting No diarrhea Staff states that there was note of small amounts of blood earlier today with stool Physical Exam Vital Signs: Vital Signs: Last Vital Signs Temp 98.1 F 03/26/24 13:28 Pulse 80 03/26/24 14:37 Resp 15 03/26/24 14:00 BP 125/51 L 03/26/24 14:37 Pulse Ox 99 03/26/24 14:00 O2 Del Method Nasal Cannula 03/26/24 14:00 O2 Flow Rate 4 03/26/24 14:00 BMI result Body Mass Index 25.1 Const: General: no acute distress Resp: Effort & Inspection: normal respiratory effort Cardio: Rate: regular rate GI: Palpation (GI): Soft to palpation, not firm, nontender and no guarding Objective Data Active Medications Acetaminophen (Acetaminophen 325 Mg Tablet) 650 mg PO Q6H PRN PRN Reason: Pain, Mild 1-3,fever,headache Fidaxomicin (Fidaxomicin 200 Mg Tablet) 200 mg PO Q12H [facility] Last Admin: 03/26/24 07:39 Dose: Not Given Documented By: TRISTAN Non-Admin Reason: NPO Metronidazole (Flagyl) 500 mg in 100 mls @ 100 mls/hr IV Q12H [facility] Last Infusion: 03/26/24 06:34 Dose: Infused Documented By: ESTEFANY Vancomycin HCl 500 mg/ Sodium (Chloride) 110 mls @ 110 mls/hr IV MoWeFr PRN PRN Reason: AFTER TROUGH RESULTS Norepinephrine Bitartrate (Levophed) 8 mg in 250 mls @ 0 mls/hr IVCONT .Q0M [facility]; Protocol Last Admin: 03/26/24 14:37 Dose: 0.27 mcg/kg/min, 39.04 mls/hr Documented By: TRISTAN Melatonin (Melatonin 3 Mg Tablet) 6 mg PO BEDTIME PRN PRN Reason: Insomnia Meropenem (Meropenem 500 Mg Vial) 500 mg IVPUSH Q24H [facility] Last Admin: 03/26/24 13:26 Dose: 500 mg Documented By: TRISTAN Ondansetron HCl (Ondansetron Hcl 4 Mg/2 Ml Vial) 4 mg IVPUSH Q8H PRN PRN Reason: Nausea and Vomiting Pantoprazole Sodium (Pantoprazole Sodium 40 Mg/10 Ml Vial) 40 mg IVPUSH BID@0630,3500 [facility] Pharmacy Consult (Consult Rx Vancomycin Dosing) 1 each MISCELLANE DAILY PRN PRN Reason: Consult order Sodium Chloride (0.9 % Sodium Chloride Flush 3 Ml Syringe) 3 ml IVFLUSH QSHIFT [facility] Last Admin: 03/26/24 07:40 Dose: Not Given Documented By: TRISTAN Non-Admin Reason: IV Running Labs 04/01/24 06:03 03/30/24 04:10 Labs: Laboratory Results - last 24 hr 03/25/24 03/25/24 03/26/24 15:18 21:30 04:58 MCV MCH MCHC RDW Plt Count MPV Immature Gran % (Auto) Neut % (Auto) Lymph % (Auto) [place] % (Auto) Eos % (Auto) Baso % (Auto) Lymph # (Auto) [place] # (Auto) Eos # (Auto) Baso # (Auto) Abs Immat Gran (auto) Absolute Neuts (auto) Absolute Nucleated RBC Nucleated RBC % (auto) Smear Tech's Comments VBG pH 7.32 VBG pCO2 32 VBG pO2 64 VBG HCO3 16 L VBG O2 Saturation Not Reportable VBG Base Excess -8.3 Anion Gap Estim Creat Clear Calc Estimated GFR Random Glucose Lactic Acid F/U @ 2Hr 1.3 Calcium Stool Occult Blood Stl C. cayetanensis PCR Not Detected Stool Rotavirus A PCR Not Detected Stl Adenov F 40/41 PCR Not Detected Stool Astrovirus (PCR) Not Detected Stool Campylobacter PCR Not Detected Stool Cryptosporidium PCR Not Detected Stl Sh Tox Pr E STEC PCR Not Detected Stool E coli O157 PCR Not applicable Stl Enterotoxigenic E PCR Not Detected Stool EPEC (PCR) Detected A Stool EAEC (PCR) Not Detected Stl E. histolytica PCR Not Detected Stool Giardia Lamblia PCR Not Detected Stl P. shigelloides PCR Not Detected Stool Salmonella PCR Not Detected Stool Sapovirus (PCR) Not Detected Stl Shigella/EIEC PCR Not Detected St Y.enterocolitica PCR Not Detected Stool Vibrio (PCR) Not Detected Stl Vibrio cholerae PCR Not Detected Stl Norovirus GI/GII PCR Not Detected C. difficile Tox B Gene NEGATIVE Blood Type Antibody Screen Crossmatch 03/26/24 03/26/24 03/26/24 05:00 06:21 10:00 MCV 112.8 H 115.0 H MCH 34.1 H 34.4 H MCHC 30.3 L 30.0 L RDW 25.3 H 25.4 H Plt Count 65 L 64 L MPV 12.2 12.3 Immature Gran % (Auto) 0.7 H Neut % (Auto) 88.1 H Lymph % (Auto) 4.3 L [place] % (Auto) 6.8 Eos % (Auto) 0.0 Baso % (Auto) 0.1 Lymph # (Auto) 0.6 L [place] # (Auto) 0.9 Eos # (Auto) 0.0 Baso # (Auto) 0.0 Abs Immat Gran (auto) 0.09 H Absolute Neuts (auto) 12.2 H Absolute Nucleated RBC 0.020 H 0.020 H Nucleated RBC % (auto) 0.2 0.1 Smear Tech's Comments VERIFIED VBG pH VBG pCO2 VBG pO2 VBG HCO3 VBG O2 Saturation VBG Base Excess Anion Gap 17 Estim Creat Clear Calc 14.1 Estimated GFR 13 Random Glucose 65 Lactic Acid F/U @ 2Hr Calcium 6.4 L D Stool Occult Blood POSITIVE Stl C. cayetanensis PCR Stool Rotavirus A PCR Stl Adenov F 40/41 PCR Stool Astrovirus (PCR) Stool Campylobacter PCR Stool Cryptosporidium PCR Stl Sh Tox Pr E STEC PCR Stool E coli O157 PCR Stl Enterotoxigenic E PCR Stool EPEC (PCR) Stool EAEC (PCR) Stl E. histolytica PCR Stool Giardia Lamblia PCR Stl P. shigelloides PCR Stool Salmonella PCR Stool Sapovirus (PCR) Stl Shigella/EIEC PCR St Y.enterocolitica PCR Stool Vibrio (PCR) Stl Vibrio cholerae PCR Stl Norovirus GI/GII PCR C. difficile Tox B Gene Blood Type A Positive Antibody Screen NEGATIVE Crossmatch See Detail Microbiology Microbiology Results: Microbiology 03/25/24 03:16 Blood Culture - Preliminary Blood - Venous Gram negative ramesh 03/25/24 03:02 Blood Culture - Preliminary Blood - Venous Gram negative ramesh Procedures Date of Service Date of Service: 04/01/24 Progress Note: A&P Assessment and plan (1) Ileus: Status: Acute Assessment and Plan: CT scan had shown dilated small bowel loops However current exam does not suggest any bowel obstruction Exam is very benign He has had no nausea or vomiting There is mention of chronic changes in the pelvis likely related to his previous low anterior resection done in [place] he has multiple acute issues C diff says this time is negative Okay to try on clear liquids We will follow Time Spent With Patient Time: Total time managing care of this patient today ____ minutes. Quality Stroke Does the patient have a stroke diagnosis?: No VTE Prior VTE?: No VTE Risk Level:: Medical - moderate - high VTE Device Contraindication: Treatment Not Indicated VTE Drug Contraindication: N/A - Med Ordered
--- NOTE | 2024-03-26 15:20 | PM.PNNEP ---
Subjective Subjective Date of Service: 03/26/24 Interval history: On Maintance HD In iCU now Currently patient states he feels slightly better but still tire, denies abdominal pain, melena or hematochezia. Physical Exam Vital Signs: Vital Signs: Last Vital Signs Temp 98.1 F 03/26/24 13:28 Pulse 80 03/26/24 14:37 Resp 15 03/26/24 14:00 BP 125/51 L 03/26/24 14:37 Pulse Ox 99 03/26/24 14:00 O2 Del Method Nasal Cannula 03/26/24 14:00 O2 Flow Rate 4 03/26/24 14:00 BMI result Body Mass Index 25.1 Const: General: no acute distress Resp: Effort & Inspection: normal respiratory effort Cardio: Rate: regular rate GI: Palpation (GI): Soft to palpation, not firm, nontender and no guarding Objective Data Labs 03/26/24 06:21 03/26/24 05:00 Labs: Laboratory Results - last 24 hr 03/25/24 03/25/24 03/26/24 15:18 21:30 04:58 WBC RBC Hgb Hct MCV MCH MCHC RDW Plt Count MPV Immature Gran % (Auto) Neut % (Auto) Lymph % (Auto) [place] % (Auto) Eos % (Auto) Baso % (Auto) Lymph # (Auto) [place] # (Auto) Eos # (Auto) Baso # (Auto) Abs Immat Gran (auto) Absolute Neuts (auto) Absolute Nucleated RBC Nucleated RBC % (auto) Smear Tech's Comments VBG pH 7.32 VBG pCO2 32 VBG pO2 64 VBG HCO3 16 L VBG O2 Saturation Not Reportable VBG Base Excess -8.3 Sodium Potassium Chloride Carbon Dioxide Anion Gap BUN Creatinine Estim Creat Clear Calc Estimated GFR Random Glucose Lactic Acid F/U @ 2Hr 1.3 Calcium Stool Occult Blood Stl C. cayetanensis PCR Not Detected Stool Rotavirus A PCR Not Detected Stl Adenov F 40/41 PCR Not Detected Stool Astrovirus (PCR) Not Detected Stool Campylobacter PCR Not Detected Stool Cryptosporidium PCR Not Detected Stl Sh Tox Pr E STEC PCR Not Detected Stool E coli O157 PCR Not applicable Stl Enterotoxigenic E PCR Not Detected Stool EPEC (PCR) Detected A Stool EAEC (PCR) Not Detected Stl E. histolytica PCR Not Detected Stool Giardia Lamblia PCR Not Detected Stl P. shigelloides PCR Not Detected Stool Salmonella PCR Not Detected Stool Sapovirus (PCR) Not Detected Stl Shigella/EIEC PCR Not Detected St Y.enterocolitica PCR Not Detected Stool Vibrio (PCR) Not Detected Stl Vibrio cholerae PCR Not Detected Stl Norovirus GI/GII PCR Not Detected C. difficile Tox B Gene NEGATIVE Blood Type Antibody Screen Crossmatch 03/26/24 03/26/24 03/26/24 05:00 06:21 10:00 WBC 13.3 H 13.8 H RBC 1.64 L D 1.80 L Hgb 5.6 L* D 6.2 L* Hct 18.5 L* D 20.7 L* MCV 112.8 H 115.0 H MCH 34.1 H 34.4 H MCHC 30.3 L 30.0 L RDW 25.3 H 25.4 H Plt Count 65 L 64 L MPV 12.2 12.3 Immature Gran % (Auto) 0.7 H Neut % (Auto) 88.1 H Lymph % (Auto) 4.3 L [place] % (Auto) 6.8 Eos % (Auto) 0.0 Baso % (Auto) 0.1 Lymph # (Auto) 0.6 L [place] # (Auto) 0.9 Eos # (Auto) 0.0 Baso # (Auto) 0.0 Abs Immat Gran (auto) 0.09 H Absolute Neuts (auto) 12.2 H Absolute Nucleated RBC 0.020 H 0.020 H Nucleated RBC % (auto) 0.2 0.1 Smear Tech's Comments VERIFIED VBG pH VBG pCO2 VBG pO2 VBG HCO3 VBG O2 Saturation VBG Base Excess Sodium 144 Potassium 3.0 L Chloride 114 H Carbon Dioxide 16 L Anion Gap 17 BUN 31 H Creatinine 4.36 H* Estim Creat Clear Calc 14.1 Estimated GFR 13 Random Glucose 65 Lactic Acid F/U @ 2Hr Calcium 6.4 L D Stool Occult Blood POSITIVE Stl C. cayetanensis PCR Stool Rotavirus A PCR Stl Adenov F 40/41 PCR Stool Astrovirus (PCR) Stool Campylobacter PCR Stool Cryptosporidium PCR Stl Sh Tox Pr E STEC PCR Stool E coli O157 PCR Stl Enterotoxigenic E PCR Stool EPEC (PCR) Stool EAEC (PCR) Stl E. histolytica PCR Stool Giardia Lamblia PCR Stl P. shigelloides PCR Stool Salmonella PCR Stool Sapovirus (PCR) Stl Shigella/EIEC PCR St Y.enterocolitica PCR Stool Vibrio (PCR) Stl Vibrio cholerae PCR Stl Norovirus GI/GII PCR C. difficile Tox B Gene Blood Type A Positive Antibody Screen NEGATIVE Crossmatch See Detail Microbiology Microbiology Results: Microbiology 03/25/24 03:16 Blood - Venous Blood Culture - Preliminary Gram negative ramesh 03/25/24 03:02 Blood - Venous Blood Culture - Preliminary Gram negative ramesh Procedures Date of Service Date of Service: 03/26/24 Assessment & Plan Assessment and plan (1) End stage renal disease: Status: Acute (2) Septic shock: Status: Acute (3) Physical deconditioning: Status: Acute (4) Recto-vesical fistula: Status: Inactive Plan 1. ESRD on HD - schedule: // at [facility] D[facility]- Continue HD today - Close to 6 L removal - access: IJ PermCath - K per protocal 2. Loose stools : -ve Cdiff - on abx - Dificid. improving 3. anemia of ckd - s/p transfusion procrit per protocol prbc for hb< 7 4. Sepsis / Hypotension - In the ICU Vanco as per ICU 5, Met Acidosis: should improve with HD Thank you Dr. Nam Time Spent With Patient Time: Total time managing care of this patient today ____ minutes. Progress Note: Quality Stroke Does the patient have a stroke diagnosis?: No
--- NOTE | 2024-03-26 16:35 | HO.WOUND ---
Wound Consult: Initial 78yr old?male admitted to [facility] on 03/25/24 06:42 - See progress notes and H&P for detailed history.? Wound consult placed for Sacrum.? Patient agreeable to assessment and photo documentation.? Sacrum Etiology: ?Deep Tissue Injury in Evolution ?Present on Admission Measurements: 8cm x 8cm x 0.2cm Wound Bed: central open area with red clean wound bed - surrounding tissue dark pigmentation nonblanchable Drainage / Odor: None noted Edges: ? irregular and defined Elizabeth wound:Lyden intact tissue - MASD noted ? No Induration, Fluctuance or Warmth noted Pain: none reported at this time Goals of Treatment: ? Off load pressure and triad to protect from friction and moisture and allow for moist wound healing Heels off loaded - recommend useing heel protector boots. Isotour bed in use, recommend using wedges for turn and repositions Q2 hr. Recommendations: 1. Turn and Reposition every 2 hours and as needed for patient comfort.? Use pillows or wedges to support off loading positions. 2. Off Load all bony prominences with use of pillows and heel boots if needed.? Apply Preventative foams where needed. ? 3. Monitor for incontinence and moisture control, use barrier creams when needed for prevention and treatment. 4. Provide adequate and supplemental nutrition.? 5. Continue ICU Speciality low air loss mattress. 6. When applicable maintain blood glucose levels per Providers order. 7. Sacrum - Off Load Pressure with Q2 hr turns and use of pillows - Cleanse with PH balance spray or wipes, pat dry. ?Apply thin layer of Triad to wound bed. Do not remove all of paste between applications as this may cause further skin damage.? Cover with foam dressing to aid in off loading and protection from friction. Change every 5 days and PRN. Re-consult wound care Nurse for wound deterioration or wound changes.
--- NOTE | 2024-03-26 16:36 | P.CNID_ITS ---
History of Present Illness Data of Consult Service Date: 03/26/24 Requesting physician: Bryson Campo Primary Care Provider: Anabelle HERNANDEZ Reason for consult: sepsis He presents to ER with nausea,vomiting and diarrhea. He has had Cdiff and now is on prophylactic Vancomycin 125 mg three times a week. He has EPEC stool 03/25/2024. He has gram negative ramesh blood 03/25 x 2. He is ESRD on HD. CT scan LLL consolidation. Review of Systems 2 Review of Systems: Yes all other systems are reviewed and are negative PMFSH Past Medical History Medical History Recto-vesical fistula End stage renal disease Sick sinus syndrome Postoperative hematoma involving digestive system following digestive system procedure Aftercare following left shoulder joint replacement surgery Pacemaker OA (osteoarthritis) Borderline hyperlipidemia Obesity HTN (hypertension) EtOH dependence Mild cognitive impairment Inhibited sex excitement Atrial fibrillation Cancer of kidney High cholesterol Hypertension Family History Family History Mother Heart problem Family history: reviewed and not pertinent Social History Social History Household Members: Significant Other Housing: House Do you presently have visiting nurse or other home services: No Alcohol intake: former Comment: refusing alarms Patient Tobacco Use Status: Former Tobacco user Tobacco use type: Cigarette e-Cigarette/Vaping Use: Never Used Advance Directives Date on File: 11/29/22 service: Yes Meds Allergies Allergy/AdvReac Type Severity Reaction Status Date / Time No Known Allergies [NKA] Allergy Mild NOT Verified 03/25/24 03:29 APPLICABLE Active Medications: Current Medications Acetaminophen (Acetaminophen 325 Mg Tablet) 650 mg PO Q6H PRN PRN Reason: Pain, Mild 1-3,fever,headache Norepinephrine Bitartrate (Levophed) 8 mg in 250 mls @ 0 mls/hr IVCONT .Q0M NILE; Protocol Last Titration: 03/26/24 15:39 Dose: 0.25 mcg/kg/min, 36.15 mls/hr Melatonin (Melatonin 3 Mg Tablet) 6 mg PO BEDTIME PRN PRN Reason: Insomnia Meropenem (Meropenem 500 Mg Vial) 500 mg IVPUSH Q24H NILE Last Admin: 03/26/24 13:26 Dose: 500 mg Ondansetron HCl (Ondansetron Hcl 4 Mg/2 Ml Vial) 4 mg IVPUSH Q8H PRN PRN Reason: Nausea and Vomiting Pantoprazole Sodium (Pantoprazole Sodium 40 Mg/10 Ml Vial) 40 mg IVPUSH BID@0630,1630 [facility] Sodium Chloride (0.9 % Sodium Chloride Flush 3 Ml Syringe) 3 ml IVFLUSH QSHIFT [facility] Last Admin: 03/26/24 07:40 Dose: Not Given Vancomycin HCl (Vancomycin Hcl 125 Mg Capsule) 250 mg PO Q6H [facility] Home Medications ?Medication ?Instructions ?Recorded ?Confirmed ?Last Taken ?Type clindamycin phosphate 1 % lotion 1 appl topical BID PRN Acne 03/08/24 03/25/24 Unknown History clobetasol 0.05 % topical cream 1 appl topical BID PRN itching/rash 03/08/24 03/25/24 Unknown History diltiazem HCl 240 mg 240 mg PO DAILY 03/08/24 03/25/24 Unknown History capsule,extended release 24 hr, controlled (DILT-XR) lisinopril 5 mg tablet 5 mg PO DAILY 03/08/24 03/25/24 Unknown History pramoxine 1 % lotion 1 appl topical BID PRN Itching 03/08/24 03/25/24 Unknown History Physical Exam 2 Vital Signs: Vital Signs: Last Vital Signs Temp 98.1 F 03/26/24 13:28 Pulse 96 03/26/24 16:00 Resp 10 L 03/26/24 16:00 BP 124/50 L 03/26/24 16:00 Pulse Ox 98 03/26/24 16:00 O2 Del Method Nasal Cannula 03/26/24 16:00 O2 Flow Rate 4 03/26/24 16:00 BMI result Body Mass Index 25.1 Const: General: cooperative HEENT: Head: Yes normal to inspection Face and sinus: Yes normal facial exam Mouth: Normal oral and palatal mucosa present Teeth and gingiva: d entition normal Eyes: General: appearance normal, both eyes and all related structures P upils: Equal, round and reactive pupils present Resp: Other: rhonchi bases Cardio: Rate: regular rate Rhythm: regular rhythm GI: Palpation (GI): Soft to palpation and nontender : General: Yes no CVA tenderness Back/Spine/Pelvis: Back: no CVA tenderness Skin: General skin exam: no rashes or lesions noted Neuro: General: moves all extremities Cranial nerves: Yes Equal, round and reactive pupils present Extrem: General: Yes normal to inspection Psych: Appearance: grossly normal Results Labs 03/26/24 06:21 03/26/24 05:00 Labs: Short CBC 03/26/24 03/26/24 Range/Units 05:00 06:21 WBC 13.3 H 13.8 H (4.8-10.8) X10*3/uL Hgb 5.6 L* D 6.2 L* (14.0-18.0) g/dl Hct 18.5 L* D 20.7 L* (42.0-52.0) % Plt Count 65 L 64 L (160-400) X10*3/uL BMP 03/26/24 05:00 Sodium 144 Potassium 3.0 L Chloride 114 H Carbon Dioxide 16 L BUN 31 H Creatinine 4.36 H* Calcium 6.4 L D Microbiology Microbiology Results: Microbiology 03/25/24 03:16 Blood - Venous Blood Culture - Preliminary Gram negative ramesh 03/25/24 03:02 Blood - Venous Blood Culture - Preliminary Gram negative ramesh Assessment and Plan (1) Septic shock: Status: Acute (2) Pacemaker: Status: Acute (3) End stage renal disease: Status: Acute (4) Enteropathogenic Escherichia coli infection: Status: Acute Plan Gram negative ramesh bacteremia,lung versus bowel translocation Agree Merem No Cdiff,colonized EPEC Po Vancomycin 125 mg qid while on antibiotics and 48 h after and then 125 m,w,fri Await final culture.
[2024-03-26] MEDS: 0.9 % Sodium Chloride Flush 3 ML SYRINGE IVFLUSH ×2 (16:38→21:32)
[2024-03-26] MEDS: vancomycin HCL 125 MG CAPSULE 250 MG PO ×2 (17:04→21:32)
[2024-03-26 18:13] LABS: MANUAL DIFF FLAG NO
[2024-03-26 18:16] LABS: Basophils Percent Auto 0.1 % (0-2); Eosinophils Percent Auto 0.1 % (0-4); Hematocrit 28.5 % (42.0-52.0); Hemoglobin 9.4 g/dl (14.0-18.0); Imm Gran Abs Auto 0.12 X10*3/uL (0.00-0.03); Imm Gran Pct Auto 0.9 % (0.0-0.4); Lymphocytes Absolute Auto 0.5 X10*3/uL (1.2-4.9); Lymphocytes Percent Auto 3.7 % (20-40); Mean Platelet Volume 10.3 fL (9.4-12.4); Monocytes Absolute Auto 0.9 X10*3/uL (0.1-1.2); Monocytes Percent Auto 6.5 % (2-11); Neutrophils Absolute Auto 11.8 x10*3/uL (2.0-8.3); Neutrophils Percent Auto 88.7 % (45-73); Red Blood Count 2.85 X10*6/uL (4.60-5.80); Red Cell Distribution Width 22.9 % (11.0-16.0); White Blood Count 13.3 X10*3/uL (4.8-10.8)
[2024-03-26 18:17] LABS: Platelet Count 41 X10*3/uL (160-400)
[2024-03-26 18:29] LABS: Vancomycin Random 11.6 mcg/mL (15-20)
[2024-03-26] MEDS: vancomycin HCL 500 MG in 0.9 % Sodium Chloride 100 ML 110 MG IV (18:52)
--- NOTE | 2024-03-26 20:01 | CONS_ITS ---
DATE OF SERVICE: 03/25/2024 REASON FOR CONSULTATION: Consult requested by the ER team to evaluate and help in managing the patient's ESRD, was presented with diarrhea and weakness. HISTORY OF PRESENT ILLNESS: The patient is a 78-year-old male with past medical history of ESRD on hemodialysis, history of colorectal CA, status post low anterior resection with diversion ileostomy and reversal done at [facility], recurrent C diff colitis, chronic right hydronephrosis, atrial fibrillation on Eliquis, who presents to the emergency room with persistent diarrhea for 3 to 4 days, associated weakness. He was recently hospitalized in the end of February with recurrent C diff colitis. There was apparently no blood in the stools. No abdominal pain, nausea, vomiting, or fever. There was no cough or expectoration. The patient was evaluated in the ER and he was not acidotic or hyperkalemic and his volume status was acceptable. He was admitted with diagnosis of recurrent C diff sepsis and was given IV fluids, normal saline 1 L. Stool sent for C diff analysis. He was also started on Flagyl initially and switched over to Dificid. REVIEW OF SYSTEMS: The patient is a poor historian and review of systems as mentioned above. PAST MEDICAL HISTORY: As mentioned before. PAST SURGICAL HISTORY: Includes history of surgery for abdominal rectovesical fistula with colostomy and reversal. FAMILY HISTORY: Significant for mother with heart problems. SOCIAL HISTORY: Patient lives with his significant other. Former alcohol user. History of smoking is positive. There is no history of drug use. ALLERGIES: THE PATIENT HAS NO KNOWN DRUG ALLERGIES. HOME MEDICATIONS: Include clindamycin cream, diltiazem, lisinopril. PHYSICAL EXAMINATION: GENERAL: The patient is resting in the ER bed, sleepy but arousable. VITAL SIGNS: Blood pressure was 103/62, pulse 59, afebrile. HEENT: Shows pupils equal bilaterally to light. No jugular venous distention is noted. NECK: Supple. Mucosa dry. There is no scleral icterus or conjunctival congestion. CARDIOVASCULAR SYSTEM: S1, S2 without rub. RESPIRATORY SYSTEM: Decreased in bases. No crepitation or rhonchi is noted. ABDOMEN: Soft, nontender, distended. Bowel sounds normal. EXTREMITIES: Show 1+ edema. There is no peripheral cyanosis or clubbing. Labs done recently. WBC is 14.5, hemoglobin 9.8, hematocrit 31.3, platelets 76. Sodium 142, potassium 3.4, chloride 105, CO2 of 19, BUN 24, creatinine 4.16. IMPRESSION: 1. 78-year-old male with ESRD on hemodialysis. 2. Diarrhea with sepsis, likely due to C diff colitis. 3. Lactic acidosis, which is multifactorial. 4. Anemia of chronic disease. 5. Atrial fibrillation. 6. History of colorectal cancer, status post multiple surgeries with colostomy and reversal. RECOMMENDATIONS: At this juncture, the patient's electrolyte panel including bicarb level and potassium level acceptable. His volume status is also acceptable. There is no emergent need for hemodialysis. He usually gets dialysis on Sunday, , Sunday, and I arranged for hemodialysis for the patient in the inpatient setting in a.m. We will use the PermCath and remove fluid as tolerated. In the meantime, the patient needs to be on a fluid restriction, potassium and sodium restriction. C diff management as per medical team. Follow up hemoglobin and give a transfusion if hemoglobin less than 7.0. Thank you for allowing me to participate in medical management of the patient. MD LINDA Carlisle/JONO / [phone]
[2024-03-26] MEDS: Norepinephrine Bitartrate/D5W 8 MG/250 ML PLAST..BAG 36.15 MG IVCONT (20:09)
[2024-03-27] VITALS (34 sets, daily range): BP systolic 95–138; BP diastolic 45–67; PULSE 60–125; RESP 11–20; TEMP 36.9–37.3; O2SAT 94–98; BMI 25.1
[2024-03-27] MEDS: Norepinephrine Bitartrate/D5W 8 MG/250 ML PLAST..BAG 24.58 MG IVCONT (03:02)
[2024-03-27] MEDS: vancomycin HCL 125 MG CAPSULE 250 MG PO ×4 (03:04→20:52)
[2024-03-27 05:14] LABS: VBG Base Excess 2.6 mmol/L; VBG HCO3 27 mmol/L (22-26); VBG pCO2 42 mmHg; VBG pH 7.41 (7.32-7.43); VBG pO2 57 mmHg
[2024-03-27 06:04] LABS: MANUAL DIFF FLAG NO
[2024-03-27 06:08] LABS: Alanine Aminotransferase 14 U/L (0-40); Albumin Level 2.6 g/dL (3.5-5.0); Alkaline Phosphatase 82 U/L (39-117); Anion Gap 15 (12-20); Aspartate Amino Transferase 21 U/L (5-37); Bilirubin Total 1.1 mg/dL (0.0-1.0); Blood Urea Nitrogen 21 mg/dL (9-16); Calcium 7.3 mg/dL (8.4-10.2); Carbon Dioxide 21 mmol/L (22-29); Chloride 106 mmol/L (96-108); Creatinine Clr Calc Pharmacy 19.7; Estimated Glomerular Filt Rate 19; Glucose Random 134 mg/dL (60-115); Magnesium 1.7 mg/dL (1.6-2.6); Phosphorus 2.5 mg/dL (2.7-4.5); Potassium 2.4 mmol/L (3.3-5.1); Sodium 140 mmol/L (135-145); Total Protein 4.5 g/dL (6.5-8.0)
[2024-03-27 06:17] LABS: Basophils Percent Auto 0.1 % (0-2); Eosinophils Percent Auto 0.2 % (0-4); Hemoglobin 8.7 g/dl (14.0-18.0); Imm Gran Abs Auto 0.11 X10*3/uL (0.00-0.03); Imm Gran Pct Auto 0.9 % (0.0-0.4); Lymphocytes Absolute Auto 0.8 X10*3/uL (1.2-4.9); Lymphocytes Percent Auto 6.7 % (20-40); Mean Corpuscular HGB Conc 33.5 g/dl (31.0-36.0); Mean Corpuscular Hemoglobin 33.3 pg (27.0-33.0); Mean Corpuscular Volume 99.6 fL (80.0-98.0); Mean Platelet Volume 11.8 fL (9.4-12.4); Monocytes Absolute Auto 0.8 X10*3/uL (0.1-1.2); Monocytes Percent Auto 6.4 % (2-11); Neutrophils Absolute Auto 10.6 x10*3/uL (2.0-8.3); Neutrophils Percent Auto 85.7 % (45-73); Red Blood Count 2.61 X10*6/uL (4.60-5.80); Red Cell Distribution Width 23.8 % (11.0-16.0); White Blood Count 12.4 X10*3/uL (4.8-10.8)
[2024-03-27 06:18] LABS: Platelet Count 33 X10*3/uL (160-400)
[2024-03-27] MEDS: Pantoprazole Sodium 40 MG/10 ML VIAL IVPUSH ×2 (06:25→15:52)
[2024-03-27 06:50] LABS: Venous Blood Gas Refer to POC result
[2024-03-27] MEDS: Potassium Chloride Packet 20 MEQ PACKET 40 MEQ PO (07:43)
[2024-03-27] MEDS: 0.9 % Sodium Chloride Flush 3 ML SYRINGE IVFLUSH ×3 (07:43→23:38)
--- NOTE | 2024-03-27 09:00 | PM.CCPN ---
Subjective Subjective Date of Service: 03/27/24 Critical Care Time (minutes): 35 Comment: No new events overnight Vasopressor requirement slowly improving Physical Exam Vital Signs: Vital Signs: Last Vital Signs Temp 98.5 F 03/27/24 03:44 Pulse 60 03/27/24 08:54 Resp 18 03/27/24 08:00 BP 131/61 03/27/24 08:54 Pulse Ox 98 03/27/24 08:00 O2 Del Method Nasal Cannula 03/27/24 08:00 O2 Flow Rate 4 03/27/24 08:00 BMI result Body Mass Index 25.1 General: acute distress, ill appearing and tired appearing Nutritional Appearance: well nourished and overweight Eyes: appearance normal, both eyes and all related structures; Alignment and Position: alignment normal and position normal Neck: No lymphadenopathy, no thyromegaly Resp: bilateral air entry equal, occasional added sounds present Cardio: Regular rate, regular rhythm; Heart sounds: S1 normal heart sound present and S2 normal heart sound present GI: soft, nontender, no guarding, no hepatosplenomegaly : bladder normal to inspection, bladder normal to palpation, no renal angle tenderness Skin: no rashes or lesions noted and elasticity normal Neuro: oriented to person, oriented to place, oriented to time and moves all extremities Objective Data Labs 03/27/24 04:50 03/27/24 04:50 Labs: Laboratory Results - last 24 hr 03/25/24 03/26/24 03/26/24 21:30 06:21 10:00 WBC RBC Hgb Hct MCV MCH MCHC RDW Plt Count MPV Immature Gran % (Auto) Neut % (Auto) Lymph % (Auto) Cloud % (Auto) Eos % (Auto) Baso % (Auto) Lymph # (Auto) Cloud # (Auto) Eos # (Auto) Baso # (Auto) Abs Immat Gran (auto) Absolute Neuts (auto) Absolute Nucleated RBC Nucleated RBC % (auto) VBG pH VBG pCO2 VBG pO2 VBG HCO3 VBG O2 Saturation VBG Base Excess Sodium Potassium Chloride Carbon Dioxide Anion Gap BUN Creatinine Estim Creat Clear Calc Estimated GFR Random Glucose Calcium Phosphorus Magnesium Total Bilirubin AST ALT Alkaline Phosphatase Total Protein Albumin Stool Occult Blood POSITIVE Stl C. cayetanensis PCR Not Detected Stool Rotavirus A PCR Not Detected Stl Adenov F 40/41 PCR Not Detected Stool Astrovirus (PCR) Not Detected Stool Campylobacter PCR Not Detected Stool Cryptosporidium PCR Not Detected Stl Sh Tox Pr E STEC PCR Not Detected Stool E coli O157 PCR Not applicable Stl Enterotoxigenic E PCR Not Detected Stool EPEC (PCR) Detected A Stool EAEC (PCR) Not Detected Stl E. histolytica PCR Not Detected Stool Giardia Lamblia PCR Not Detected Stl P. shigelloides PCR Not Detected Stool Salmonella PCR Not Detected Stool Sapovirus (PCR) Not Detected Stl Shigella/EIEC PCR Not Detected St Y.enterocolitica PCR Not Detected Stool Vibrio (PCR) Not Detected Stl Vibrio cholerae PCR Not Detected Stl Norovirus GI/GII PCR Not Detected Random Vancomycin Blood Type A Positive Antibody Screen NEGATIVE Crossmatch See Detail 03/26/24 03/27/24 03/27/24 17:46 04:50 05:01 WBC 13.3 H 12.4 H RBC 2.85 L D 2.61 L Hgb 9.4 L D 8.7 L Hct 28.5 L D 26.0 L MCV 100.0 H D 99.6 H MCH 33.0 33.3 H MCHC 33.0 33.5 RDW 22.9 H 23.8 H Plt Count 41 L D 33 L MPV 10.3 11.8 Immature Gran % (Auto) 0.9 H 0.9 H Neut % (Auto) 88.7 H 85.7 H Lymph % (Auto) 3.7 L 6.7 L Cloud % (Auto) 6.5 6.4 Eos % (Auto) 0.1 0.2 Baso % (Auto) 0.1 0.1 Lymph # (Auto) 0.5 L 0.8 L Cloud # (Auto) 0.9 0.8 Eos # (Auto) 0.0 0.0 Baso # (Auto) 0.0 0.0 Abs Immat Gran (auto) 0.12 H 0.11 H Absolute Neuts (auto) 11.8 H 10.6 H Absolute Nucleated RBC 0.000 0.000 Nucleated RBC % (auto) 0.0 0.0 VBG pH 7.41 VBG pCO2 42 VBG pO2 57 VBG HCO3 27 H VBG O2 Saturation 88.0 VBG Base Excess 2.6 Sodium 140 Potassium 2.4 L* Chloride 106 Carbon Dioxide 21 L Anion Gap 15 BUN 21 H Creatinine 3.14 H Estim Creat Clear Calc 19.7 Estimated GFR 19 Random Glucose 134 H Calcium 7.3 L D Phosphorus 2.5 L Magnesium 1.7 Total Bilirubin 1.1 H AST 21 ALT 14 Alkaline Phosphatase 82 Total Protein 4.5 L Albumin 2.6 L Stool Occult Blood Stl C. cayetanensis PCR Stool Rotavirus A PCR Stl Adenov F 40/41 PCR Stool Astrovirus (PCR) Stool Campylobacter PCR Stool Cryptosporidium PCR Stl Sh Tox Pr E STEC PCR Stool E coli O157 PCR Stl Enterotoxigenic E PCR Stool EPEC (PCR) Stool EAEC (PCR) Stl E. histolytica PCR Stool Giardia Lamblia PCR Stl P. shigelloides PCR Stool Salmonella PCR Stool Sapovirus (PCR) Stl Shigella/EIEC PCR St Y.enterocolitica PCR Stool Vibrio (PCR) Stl Vibrio cholerae PCR Stl Norovirus GI/GII PCR Random Vancomycin 11.6 L Blood Type Antibody Screen Crossmatch Microbiology Microbiology Results: Microbiology 03/25/24 03:02 Blood - Venous Blood Culture - Preliminary Klebsiella oxytoca 03/25/24 03:16 Blood - Venous Blood Culture - Preliminary Gram negative ramesh Progress Note: A&P Assessment and plan (1) Atrial fibrillation with rapid ventricular response: Status: Acute (2) Sinus bradycardia: Status: Acute (3) Encounter for interrogation of cardiac pacemaker: Status: Acute (4) End stage renal disease: Status: Acute (5) Acute renal failure: Status: Acute (6) Normocytic anemia: Status: Acute (7) Septic shock: Status: Acute (8) Enteropathogenic Escherichia coli infection: Status: Acute Plan Septic shock: Received significant amount of fluid boluses but still remains hypotensive needing vasopressor support Currently on Levophed, titrate to keep map above 65 mm Hg; Levophed requirements improving, continue tapering Levophed as tolerated Blood cultures positive for Gram-negative rods possibly Klebsiella, unclear source possibly from his gut however can not rule out line infection as of now. Continue meropenem as patient has poor response to ceftriaxone so far. pending blood cultures from the dialysis catheter Acute blood loss anemia: Has some blood loss in the stool, with guaiac-positive possibly from EPEC enteritis. Patient has a longstanding history of refractory C diff, continue PO vancomycin for suppressive therapy Acute thrombocytopenia: secondary to severe sepsis Platelet count 33k, will hold off on anticoagulation End-stage renal disease: Underwent renal replacement therapy yesterday, next session tomorrow Has left subclavian port, on M/W/F dialysis schedule Low-sodium, potassium and phosphorus diet colorectal cancer: status post low anterior resection with diverting loop ileostomy and reversal at [facility] atrial fibrillation: Eliquis withheld due to concerns of blood loss anemia Prophylaxis: SCD, pantoprazole Quality Stroke Does the patient have a stroke diagnosis?: No VTE Prior VTE?: No VTE Risk Level:: Medical - moderate - high VTE Device Contraindication: Treatment Not Indicated VTE Drug Contraindication: N/A - Med Ordered
[2024-03-27] MEDS: Meropenem 500 MG VIAL IVPUSH (11:47)
[2024-03-27 12:14] LABS: Glucose, Whole Blood 186 mg/dL (60-115)
--- NOTE | 2024-03-27 14:06 | MHC.CLN ---
NUTRITION DIET=2 GRAM SODIUM, LOW POTASSIUM, LOW PHOSPHORUS. PATIENT WITH ESRD ON HEMODIALYSIS. SKIN WITH DTI TO COCCYX. FOLLOW WITH TEAM. SEE CLINICAL NUTRITION ASSESSMENT 03/27/24.
--- NOTE | 2024-03-27 14:07 | P.PNNP_ITS ---
Subjective Subjective Date of Service: 03/27/24 Interval history: On Maintance HD In iCU now Currently patient states he feels slightly better but still tired, Physical Exam 2 Vital Signs: Vital Signs: Last Vital Signs Temp 98.5 F 03/27/24 12:00 Pulse 96 03/27/24 13:00 Resp 18 03/27/24 13:00 BP 135/67 03/27/24 12:43 Pulse Ox 95 03/27/24 13:00 O2 Del Method Nasal Cannula 03/27/24 13:00 O2 Flow Rate 4 03/27/24 13:00 BMI result Body Mass Index 25.1 cs: s1s2 RS; cta Abd; soft permacath insitu Objective Data Labs 03/27/24 04:50 03/27/24 04:50 Labs: Laboratory Results - last 24 hr 03/25/24 03/26/24 03/27/24 21:30 17:46 04:50 WBC 13.3 H 12.4 H RBC 2.85 L D 2.61 L Hgb 9.4 L D 8.7 L Hct 28.5 L D 26.0 L MCV 100.0 H D 99.6 H MCH 33.0 33.3 H MCHC 33.0 33.5 RDW 22.9 H 23.8 H Plt Count 41 L D 33 L MPV 10.3 11.8 Immature Gran % (Auto) 0.9 H 0.9 H Neut % (Auto) 88.7 H 85.7 H Lymph % (Auto) 3.7 L 6.7 L [place] % (Auto) 6.5 6.4 Eos % (Auto) 0.1 0.2 Baso % (Auto) 0.1 0.1 Lymph # (Auto) 0.5 L 0.8 L [place] # (Auto) 0.9 0.8 Eos # (Auto) 0.0 0.0 Baso # (Auto) 0.0 0.0 Abs Immat Gran (auto) 0.12 H 0.11 H Absolute Neuts (auto) 11.8 H 10.6 H Absolute Nucleated RBC 0.000 0.000 Nucleated RBC % (auto) 0.0 0.0 VBG pH VBG pCO2 VBG pO2 VBG HCO3 VBG O2 Saturation VBG Base Excess Sodium 140 Potassium 2.4 L* Chloride 106 Carbon Dioxide 21 L Anion Gap 15 BUN 21 H Creatinine 3.14 H Estim Creat Clear Calc 19.7 Estimated GFR 19 POC Glucose Random Glucose 134 H Calcium 7.3 L D Phosphorus 2.5 L Magnesium 1.7 Total Bilirubin 1.1 H AST 21 ALT 14 Alkaline Phosphatase 82 Total Protein 4.5 L Albumin 2.6 L Stl C. cayetanensis PCR Not Detected Stool Rotavirus A PCR Not Detected Stl Adenov F 40/ PCR Not Detected Stool Astrovirus (PCR) Not Detected Stool Campylobacter PCR Not Detected Stool Cryptosporidium PCR Not Detected Stl Sh Tox Pr E STEC PCR Not Detected Stool E coli O157 PCR Not applicable Stl Enterotoxigenic E PCR Not Detected Stool EPEC (PCR) Detected A Stool EAEC (PCR) Not Detected Stl E. histolytica PCR Not Detected Stool Giardia Lamblia PCR Not Detected Stl P. shigelloides PCR Not Detected Stool Salmonella PCR Not Detected Stool Sapovirus (PCR) Not Detected Stl Shigella/EIEC PCR Not Detected St Y.enterocolitica PCR Not Detected Stool Vibrio (PCR) Not Detected Stl Vibrio cholerae PCR Not Detected Stl Norovirus GI/GII PCR Not Detected Random Vancomycin 11.6 L 03/27/24 03/27/24 05:01 12:06 WBC RBC Hgb Hct MCV MCH MCHC RDW Plt Count MPV Immature Gran % (Auto) Neut % (Auto) Lymph % (Auto) [place] % (Auto) Eos % (Auto) Baso % (Auto) Lymph # (Auto) [place] # (Auto) Eos # (Auto) Baso # (Auto) Abs Immat Gran (auto) Absolute Neuts (auto) Absolute Nucleated RBC Nucleated RBC % (auto) VBG pH 7.41 VBG pCO2 42 VBG pO2 57 VBG HCO3 27 H VBG O2 Saturation 88.0 VBG Base Excess 2.6 Sodium Potassium Chloride Carbon Dioxide Anion Gap BUN Creatinine Estim Creat Clear Calc Estimated GFR POC Glucose 186 H Random Glucose Calcium Phosphorus Magnesium Total Bilirubin AST ALT Alkaline Phosphatase Total Protein Albumin Stl C. cayetanensis PCR Stool Rotavirus A PCR Stl Adenov F PCR Stool Astrovirus (PCR) Stool Campylobacter PCR Stool Cryptosporidium PCR Stl Sh Tox Pr E STEC PCR Stool E coli O157 PCR Stl Enterotoxigenic E PCR Stool EPEC (PCR) Stool EAEC (PCR) Stl E. histolytica PCR Stool Giardia Lamblia PCR Stl P. shigelloides PCR Stool Salmonella PCR Stool Sapovirus (PCR) Stl Shigella/EIEC PCR St Y.enterocolitica PCR Stool Vibrio (PCR) Stl Vibrio cholerae PCR Stl Norovirus GI/GII PCR Random Vancomycin Microbiology Microbiology Results: Microbiology 03/26/24 11:10 Blood - Central Line Blood Culture - Preliminary No growth after 24 hours. 03/26/24 11:30 Blood - Central Line Blood Culture - Preliminary Prelim: GNR Gram Stain only 03/25/24 03:16 Blood - Venous Blood Culture - Preliminary Klebsiella oxytoca 03/25/24 03:02 Blood - Venous Blood Culture - Preliminary Klebsiella oxytoca Procedures Date of Service Date of Service: 03/27/24 Assessment & Plan Assessment and plan (1) Septic shock: Status: Acute (2) End stage renal disease: Status: Acute Plan 1. ESRD on HD - schedule: // at [facility]- - access: IJ PermCath- - K per protocal 2. Loose stools : -ve Cdiff - on abx - Dificid. improving 3. anemia of ckd - s/p transfusion procrit per protocol prbc for hb< 7 4. Sepsis / Hypotension - In the ICU Vanco as per ICU Esbl in blood- discussed with icu to do permcath and peripheral to get differential time to positivity [DTTP] to confirm if this is a line related infection 5, Met Acidosis: should improve with HD 6. Thrombocytopenia- secondary to sepsis Time Spent With Patient Time: Total time managing care of this patient today ____ minutes. Progress Note: Quality Stroke Does the patient have a stroke diagnosis?: No
--- NOTE | 2024-03-27 14:44 | MHC.CM.PN ---
Pt continues care in ICU: receiving HD, on pressor support: No transfer plans today. CM to follow
[2024-03-27 17:56] LABS: Glucose, Whole Blood 100 mg/dL (60-115)
[2024-03-28] VITALS (58 sets, daily range): BP systolic 70–136; BP diastolic 15–85; PULSE 60–146; RESP 10–19; TEMP 36.4–37.2; O2SAT 92–100
[2024-03-28] MEDS: vancomycin HCL 125 MG CAPSULE 250 MG PO ×4 (03:18→22:00)
[2024-03-28 05:27] LABS: VBG Base Excess 2.9 mmol/L; VBG HCO3 27 mmol/L (22-26); VBG pCO2 44 mmHg; VBG pO2 50 mmHg
[2024-03-28 05:39] LABS: MANUAL DIFF FLAG NO
[2024-03-28 05:44] LABS: Basophils Percent Auto 0.1 % (0-2); Eosinophils Absolute Auto 0.1 X10*3/uL (0.0-0.4); Eosinophils Percent Auto 0.7 % (0-4); Hemoglobin 7.6 g/dl (14.0-18.0); Imm Gran Abs Auto 0.11 X10*3/uL (0.00-0.03); Imm Gran Pct Auto 1.5 % (0.0-0.4); Lymphocytes Absolute Auto 0.6 X10*3/uL (1.2-4.9); Lymphocytes Percent Auto 7.7 % (20-40); Mean Corpuscular Hemoglobin 33.3 pg (27.0-33.0); Mean Corpuscular Volume 100.9 fL (80.0-98.0); Monocytes Absolute Auto 0.4 X10*3/uL (0.1-1.2); Neutrophils Absolute Auto 6.4 x10*3/uL (2.0-8.3); Red Blood Count 2.28 X10*6/uL (4.60-5.80); Red Cell Distribution Width 23.5 % (11.0-16.0); Venous Blood Gas Refer to POC result; White Blood Count 7.6 X10*3/uL (4.8-10.8)
[2024-03-28 05:47] LABS: Platelet Count 17 X10*3/uL (160-400)
[2024-03-28] MEDS: Pantoprazole Sodium 40 MG/10 ML VIAL IVPUSH ×2 (06:04→15:49)
[2024-03-28 06:12] LABS: Alanine Aminotransferase 10 U/L (0-40); Albumin Level 2.1 g/dL (3.5-5.0); Alkaline Phosphatase 82 U/L (39-117); Anion Gap 10 (12-20); Aspartate Amino Transferase 14 U/L (5-37); Bilirubin Total 0.9 mg/dL (0.0-1.0); Blood Urea Nitrogen 37 mg/dL (9-16); Carbon Dioxide 24 mmol/L (22-29); Chloride 108 mmol/L (96-108); Creatinine Clr Calc Pharmacy 16.1; Estimated Glomerular Filt Rate 15; Glucose Random 82 mg/dL (60-115); Magnesium 1.6 mg/dL (1.6-2.6); Phosphorus 1.8 mg/dL (2.7-4.5); Potassium 2.6 mmol/L (3.3-5.1); Sodium 139 mmol/L (135-145); Total Protein 3.9 g/dL (6.5-8.0)
[2024-03-28] MEDS: Potassium Chloride Packet 20 MEQ PACKET 40 MEQ PO (07:05)
--- NOTE | 2024-03-28 08:57 | PM.CCPN ---
Subjective Subjective Date of Service: 03/28/24 Critical Care Time (minutes): 35 Comment: No new events, off vasopressor since yesterday afternoon Undergoing hemodialysis this morning Physical Exam Vital Signs: Vital Signs: Last Vital Signs Temp 98.3 F 03/28/24 08:00 Pulse 136 H 03/28/24 08:00 Resp 13 03/28/24 08:00 BP 101/57 L 03/28/24 08:00 Pulse Ox 93 03/28/24 08:00 O2 Del Method Nasal Cannula 03/28/24 08:00 O2 Flow Rate 3 03/28/24 08:00 BMI result Body Mass Index 25.1 General: Not in any acute distress, tired appearing Nutritional Appearance: well nourished and overweight Eyes: appearance normal, both eyes and all related structures; Alignment and Position: alignment normal and position normal Neck: No lymphadenopathy, no thyromegaly Resp: bilateral air entry equal, occasional added sounds present Cardio: Regular rate, regular rhythm; Heart sounds: S1 normal heart sound present and S2 normal heart sound present GI: soft, nontender, no guarding, no hepatosplenomegaly : bladder normal to inspection, bladder normal to palpation, no renal angle tenderness Skin: no rashes or lesions noted and elasticity normal Neuro: oriented to person, oriented to place, oriented to time and moves all extremities Objective Data Labs 03/28/24 05:19 03/28/24 05:20 Labs: Laboratory Results - last 24 hr 03/27/24 03/27/24 03/28/24 12:06 17:39 05:04 WBC RBC Hgb Hct MCV MCH MCHC RDW Plt Count MPV Immature Gran % (Auto) Neut % (Auto) Lymph % (Auto) [place] % (Auto) Eos % (Auto) Baso % (Auto) Lymph # (Auto) [place] # (Auto) Eos # (Auto) Baso # (Auto) Abs Immat Gran (auto) Absolute Neuts (auto) Absolute Nucleated RBC Nucleated RBC % (auto) VBG pH VBG pCO2 VBG pO2 VBG HCO3 VBG Base Excess Sodium Potassium Chloride Carbon Dioxide Anion Gap BUN Creatinine Estim Creat Clear Calc Estimated GFR POC Glucose 186 H 100 Random Glucose Calcium Phosphorus Magnesium Total Bilirubin AST ALT Alkaline Phosphatase Total Protein Albumin Random Vancomycin 15.0 03/28/24 03/28/24 03/28/24 05:19 05:20 05:23 WBC 7.6 RBC 2.28 L Hgb 7.6 L Hct 23.0 L MCV 100.9 H MCH 33.3 H MCHC 33.0 RDW 23.5 H Plt Count 17 L* MPV 13.0 H Immature Gran % (Auto) 1.5 H Neut % (Auto) 85.0 H Lymph % (Auto) 7.7 L [place] % (Auto) 5.0 Eos % (Auto) 0.7 Baso % (Auto) 0.1 Lymph # (Auto) 0.6 L [place] # (Auto) 0.4 Eos # (Auto) 0.1 Baso # (Auto) 0.0 Abs Immat Gran (auto) 0.11 H Absolute Neuts (auto) 6.4 Absolute Nucleated RBC 0.000 Nucleated RBC % (auto) 0.0 VBG pH 7.40 VBG pCO2 44 VBG pO2 50 VBG HCO3 27 H VBG Base Excess 2.9 Sodium 139 Potassium 2.6 L* Chloride 108 Carbon Dioxide 24 Anion Gap 10 L BUN 37 H Creatinine 3.84 H Estim Creat Clear Calc 16.1 Estimated GFR 15 POC Glucose Random Glucose 82 Calcium 7.0 L Phosphorus 1.8 L Magnesium 1.6 Total Bilirubin 0.9 AST 14 ALT 10 Alkaline Phosphatase 82 Total Protein 3.9 L Albumin 2.1 L Random Vancomycin Microbiology Microbiology Results: Microbiology 03/26/24 11:10 Blood - Central Line Blood Culture - Preliminary No growth after 24 hours. 03/26/24 11:30 Blood - Central Line Blood Culture - Preliminary Prelim: GNR Gram Stain only 03/25/24 03:16 Blood - Venous Blood Culture - Preliminary Klebsiella oxytoca 03/25/24 03:02 Blood - Venous Blood Culture - Preliminary Klebsiella oxytoca Progress Note: A&P Assessment and plan (1) Atrial fibrillation with rapid ventricular response: Status: Acute (2) PAF (paroxysmal atrial fibrillation): Status: Acute (3) Acute renal failure: Status: Acute (4) End stage renal disease: Status: Acute (5) C. difficile colitis: Status: Acute (6) C. difficile colitis: Status: Acute Plan Septic shock: Off Levophed support since yesterday afternoon, blood pressure stable Blood cultures positive for ESBL Klebsiella, unclear source possibly from his gut however can not rule out PermCath infection as of now. Continue meropenem; repeat culture today one from dialysis line and other from peripheral vein. pending blood cultures from the dialysis catheter Acute blood loss anemia: Has some blood loss in the stool, with guaiac-positive possibly from EPEC enteritis. Patient has a longstanding history of refractory C diff, continue PO vancomycin for suppressive therapy Acute thrombocytopenia: secondary to severe sepsis Platelet count 17k, will hold off on anticoagulation, transfusing 1 unit platelet End-stage renal disease: Undergoing renal replacement therapy this morning Has left subclavian port, on M/W/F dialysis schedule Low-sodium, potassium and phosphorus diet colorectal cancer: status post low anterior resection with diverting loop ileostomy and reversal at [facility] atrial fibrillation: Eliquis withheld due to concerns of blood loss anemia Prophylaxis: SCD, pantoprazole Quality Stroke Does the patient have a stroke diagnosis?: No VTE Prior VTE?: No VTE Risk Level:: Medical - moderate - high VTE Device Contraindication: Treatment Not Indicated VTE Drug Contraindication: N/A - Med Ordered
--- NOTE | 2024-03-28 09:06 | PC.NURSE ---
Addendum entered by Butch Ray RN 03/28/24 12:14: md informed of substantial increase in levo and pt's elevated HR Original Note: pt hypotensive during dialysis. levo started
[2024-03-28] MEDS: Norepinephrine Bitartrate/D5W 8 MG/250 ML PLAST..BAG 10.12 MG IVCONT (09:41)
--- NOTE | 2024-03-28 10:39 | MHC.CLN ---
NUTRITION DIET=2 GRAM SODIUM, LOW POTASSIUM, LOW PHOSPHORUS. PATIENT WITH ESRD ON HEMODIALYSIS. SKIN WITH DTI TO COCCYX. FOLLOW FOR PO INTAKE AND SUPPLEMENT NEEDED.
--- NOTE | 2024-03-28 12:05 | P.CDIM_ITS ---
PROVIDER RESPONSE TEXT: To clarify, the appropriate diagnosis supported by the clinical indicators: Clinically unable to determine (explain): clinically unable to determine, please refer to wound note QUERY TEXT: PHYSICIAN'S DOCUMENTATION REQUEST Date of Query: 03/28/2024 11:50 AM EST Patient Name: Mehran Ku Admit Date: 03/25/2024 Dear Bryson Campo MD, A review of the medical record indicates additional documentation may be needed. Please review below and update the documentation accordingly. Clinical Indicators: per Wound note 03/26/24: sacrum deep tissue injury in evolution, present on admission Off load pressure and triad to protect from friction and moisture and allow for moist wound healing Based on the above, could you please provide further information regarding the ulcer/wound: Pressure (decubitus) ulcer sacrum, DTI, present on admission Other (explain) Clinically unable to determine (explain) Thank you, Selina Corral RN Use of terms such as suspected, likely, concern for, or probable (associated with a specific diagnosi s that is being evaluated, monitored, or treated as if it exists) are acceptable and can be coded in the inpatient se tting, when documented at the time of discharge. Please use your independent medical judgment in providing your response. THIS QUERY IS PART OF THE PERMANENT MEDICAL RECORD
[2024-03-28] MEDS: Meropenem 500 MG VIAL IVPUSH (12:07)
[2024-03-28] MEDS: Amiodarone/Dextrose 150 MG/100 ML PLAST..BAG 600 MG IV (12:11)
[2024-03-28] MEDS: Albumin Human 25 % 100 ML 133.33 ML IV ×2 (15:49→16:48)
[2024-03-28] MEDS: Norepinephrine Bitartrate/D5W 8 MG/250 ML PLAST..BAG 31.81 MG IVCONT (16:19)
[2024-03-28 18:26] LABS: Vancomycin Random 12.5 mcg/mL (15-20)
[2024-03-29] VITALS (33 sets, daily range): BP systolic 93–125; BP diastolic 48–70; PULSE 84–122; RESP 11–26; TEMP 36.3–37.2; O2SAT 90–100
[2024-03-29] MEDS: vancomycin HCL 125 MG CAPSULE 250 MG PO ×4 (04:04→21:11)
[2024-03-29] MEDS: Norepinephrine Bitartrate/D5W 8 MG/250 ML PLAST..BAG 11.57 MG IVCONT (04:06)
[2024-03-29 04:10] LABS: VBG Base Excess 9.7 mmol/L; VBG HCO3 33 mmol/L (22-26); VBG pCO2 42 mmHg; VBG pO2 49 mmHg
[2024-03-29 04:14] LABS: Venous Blood Gas Refer to POC result
[2024-03-29 04:44] LABS: MANUAL DIFF FLAG NO
[2024-03-29 04:48] LABS: Basophils Percent Auto 0.2 % (0-2); Eosinophils Absolute Auto 0.1 X10*3/uL (0.0-0.4); Eosinophils Percent Auto 0.7 % (0-4); Imm Gran Abs Auto 0.11 X10*3/uL (0.00-0.03); Imm Gran Pct Auto 1.2 % (0.0-0.4); Lymphocytes Absolute Auto 0.9 X10*3/uL (1.2-4.9); Lymphocytes Percent Auto 9.6 % (20-40); Mean Corpuscular HGB Conc 33.2 g/dl (31.0-36.0); Mean Corpuscular Hemoglobin 33.5 pg (27.0-33.0); Mean Corpuscular Volume 101.1 fL (80.0-98.0); Mean Platelet Volume 12.7 fL (9.4-12.4); Monocytes Absolute Auto 0.7 X10*3/uL (0.1-1.2); Monocytes Percent Auto 7.5 % (2-11); Neutrophils Absolute Auto 7.3 x10*3/uL (2.0-8.3); Neutrophils Percent Auto 80.8 % (45-73); Red Blood Count 1.85 X10*6/uL (4.60-5.80); Red Cell Distribution Width 22.7 % (11.0-16.0)
[2024-03-29 04:52] LABS: Platelet Count 22 X10*3/uL (160-400)
[2024-03-29 04:53] LABS: Hemoglobin 6.2 g/dl (14.0-18.0)
[2024-03-29 04:54] LABS: Hematocrit 18.7 % (42.0-52.0)
[2024-03-29 05:12] LABS: Alkaline Phosphatase 66 U/L (39-117)
[2024-03-29 05:14] LABS: Alanine Aminotransferase 8 U/L (0-40); Albumin Level 2.5 g/dL (3.5-5.0); Anion Gap 9 (12-20); Aspartate Amino Transferase 11 U/L (5-37); Bilirubin Total 0.8 mg/dL (0.0-1.0); Blood Urea Nitrogen 23 mg/dL (9-16); Calcium 7.2 mg/dL (8.4-10.2); Carbon Dioxide 28 mmol/L (22-29); Chloride 106 mmol/L (96-108); Creatinine Clr Calc Pharmacy 23.6; Estimated Glomerular Filt Rate 24; Glucose Random 111 mg/dL (60-115); Magnesium 1.6 mg/dL (1.6-2.6); Potassium 2.4 mmol/L (3.3-5.1); Sodium 141 mmol/L (135-145); Total Protein 4.3 g/dL (6.5-8.0)
[2024-03-29] MEDS: Potassium Phosphate/NS 15 MMOL/250 ML PLAST..BAG 62.5 MMOL IV ×2 (05:31→09:39)
[2024-03-29] MEDS: Pantoprazole Sodium 40 MG/10 ML VIAL IVPUSH (05:32)
--- NOTE | 2024-03-29 06:07 | PC.NURSE ---
assumed care 1899, pt A&O but vague at times, no c/o pain, multiple dark tarry BMs, medicated per apr, critical H&H documented and reported to PA, new orders TBD. repo for comfort, call pate in reach. bed locked in lowest position
[2024-03-29 10:12] LABS: Hematocrit 19.7 % (42.0-52.0); Hemoglobin 6.4 g/dl (14.0-18.0)
--- NOTE | 2024-03-29 10:19 | PC.NURSE ---
Addendum entered by Zaida Galdamez RN 03/29/24 17:23: at 1530 daughter called back requesting to speak with provider, call transferred to Dr. Campo Original Note: Received msg requesting call to daughter re: patient, called Harriet at the number listed in the chart and left message to call back
--- NOTE | 2024-03-29 11:10 | P.CNGI_ITS ---
History of Present Illness Data of Consult Service Date: 03/29/24 Primary Care Provider: Anabelle Duncan HPI Reason for consult: melena 78-year-old male with history of ESRD on HD MWF, colorectal cancer status post low anterior resection with diverting loop ileostomy and reversal at [facility], recurrent c diff, chronic R hydonephrosis, and atrial fibrillation on Eliquis who I am seeing for assessment for melena Patient initially presented with hypotension and profuse nausea and vomiting with diarrhea. He had BC pos for klebsiella. needed vasopressors. Now off vasopressors but he has been noted to have melena. He has been off eliquis since admission. He has nausea, and v mild epigastric discomfort but denies vomiting. He has no chest pain, wheezing or sputum. HGB was 5 g/dl on 03/26/24 and went to 9 with PRBC but now again went down to 6.4 g/dl Review of Systems 2 Review of Systems: Constitutional : No Weight loss, No Fever, No Chills ENT/Mouth : No sore throat, No Rhinorrhea Eyes: No Swelling, No Redness Cardiovascular : No Chest Pain, No SOB, No Edema Respiratory : No Cough, No Sputum, No Wheezing Gastrointestinal : see HPI Genitourinary : NO Dysuria, No Urinary Frequency, No Hematuria, No Urgency Musculoskeletal : no joint pain, No Myalgias, No Joint Swelling Skin : No Skin Lesions, No rash Neuro : + Weakness, No Numbness, No Dizziness, No Headache Psych : No Anxiety/Panic, No Depression Heme/Lymph: No Bruising, No Lymphadenopathy Endocrine : No Polyuria, No Polydipsia All other systems reviewed and are negative. [facility] Past Medical History Medical History Recto-vesical fistula End stage renal disease Sick sinus syndrome Postoperative hematoma involving digestive system following digestive system procedure Aftercare following left shoulder joint replacement surgery Pacemaker OA (osteoarthritis) Borderline hyperlipidemia Obesity HTN (hypertension) EtOH dependence Mild cognitive impairment Inhibited sex excitement Atrial fibrillation Cancer of kidney High cholesterol Hypertension Family History Family History Mother Heart problem Family history: reviewed and not pertinent Social History Social History Household Members: Significant Other Housing: House Do you presently have visiting nurse or other home services: No Alcohol intake: former Comment: refusing alarms Patient Tobacco Use Status: Former Tobacco user Tobacco use type: Cigarette e-Cigarette/Vaping Use: Never Used Advance Directives Date on File: 11/29/22 service: Yes Meds Allergies Allergy/AdvReac Type Severity Reaction Status Date / Time No Known Allergies [NKA] Allergy Mild NOT Verified 03/25/24 03:29 APPLICABLE Active Medications: Current Medications Acetaminophen (Acetaminophen 325 Mg Tablet) 650 mg PO Q6H PRN PRN Reason: Pain, Mild 1-3,fever,headache Norepinephrine Bitartrate (Levophed) 8 mg in 250 mls @ 0 mls/hr IVCONT .Q0M REPLACED BY [facility]; Protocol Last Titration: 03/29/24 10:09 Dose: 0.04 mcg/kg/min, 5.78 mls/hr Potassium Phosphate (Kphos) 15 mmol in 250 mls @ 62.5 mls/hr IV Q4H REPLACED BY [facility] Stop: 03/29/24 13:14 Last Admin: 03/29/24 09:39 Dose: 62.5 mls/hr Melatonin (Melatonin 3 Mg Tablet) 6 mg PO BEDTIME PRN PRN Reason: Insomnia Meropenem (Meropenem 500 Mg Vial) 500 mg IVPUSH Q24H REPLACED BY [facility] Last Admin: 03/28/24 12:07 Dose: 500 mg Ondansetron HCl (Ondansetron Hcl 4 Mg/2 Ml Vial) 4 mg IVPUSH Q8H PRN PRN Reason: Nausea and Vomiting Pantoprazole Sodium (Pantoprazole Sodium 40 Mg/10 Ml Vial) 40 mg IVPUSH BID@0630,1630 REPLACED BY [facility] Last Admin: 03/29/24 05:32 Dose: 40 mg Sodium Chloride (0.9 % Sodium Chloride Flush 3 Ml Syringe) 3 ml IVFLUSH QSHIFT REPLACED BY [facility] Last Admin: 03/29/24 08:04 Dose: Not Given Vancomycin HCl (Vancomycin Hcl 125 Mg Capsule) 250 mg PO Q6H REPLACED BY [facility] Last Admin: 03/29/24 10:14 Dose: 250 mg Home Medications ?Medication ?Instructions ?Recorded ?Confirmed ?Last Taken ?Type clindamycin phosphate 1 % lotion 1 appl topical BID PRN Acne 03/08/24 03/25/24 Unknown History clobetasol 0.05 % topical cream 1 appl topical BID PRN itching/rash 03/08/24 03/25/24 Unknown History diltiazem HCl 240 mg 240 mg PO DAILY 03/08/24 03/25/24 Unknown History capsule,extended release 24 hr, controlled (DILT-XR) lisinopril 5 mg tablet 5 mg PO DAILY 03/08/24 03/25/24 Unknown History pramoxine 1 % lotion 1 appl topical BID PRN Itching 03/08/24 03/25/24 Unknown History Physical Exam 2 Vital Signs: Vital Signs: Last Vital Signs Temp 98.4 F 03/29/24 11:00 Pulse 95 03/29/24 11:00 Resp 20 03/29/24 11:00 BP 118/60 03/29/24 11:00 Pulse Ox 98 03/29/24 10:00 O2 Del Method Nasal Cannula 03/29/24 10:00 O2 Flow Rate 2.5 03/29/24 10:00 BMI result Body Mass Index 25.1 EXAM: GENERAL: The patient is frail VITAL SIGNS:see workflow HEENT: Nonicteric sclerae, PERRLA, EOMI. Oropharynx clear. Moist mucous membranes. Conjunctivae appear well perfused. No thyroid mass. CHEST: Chest wall is nontender. HEART: Regular rate and rhythm without murmurs. LUNGS: Clear to auscultation bilaterally. ABDOMEN: Soft, positive bowel sounds, tender epigastrium, no organomegaly.no flank tenderness SKIN: No rash, no excessive bruising, petechiae, or purpura. NEUROLOGIC: Cranial nerves II-XII intact without motor/sensory deficit. Psych: normal affect Results Labs 03/29/24 09:36 03/29/24 04:00 Labs: Short CBC 03/29/24 03/29/24 Range/Units 04:00 09:36 WBC 9.0 (4.8-10.8) X10*3/uL Hgb 6.2 L* 6.4 L* (14.0-18.0) g/dl Hct 18.7 L* 19.7 L* (42.0-52.0) % Plt Count 22 L D (160-400) X10*3/uL BMP 03/29/24 04:00 Sodium 141 Potassium 2.4 L* Chloride 106 Carbon Dioxide 28 BUN 23 H Creatinine 2.62 H Calcium 7.2 L Liver Function 03/29/24 Range/Units 04:00 Total Bilirubin 0.8 (0.0-1.0) mg/dL AST 11 (5-37) U/L ALT 8 (0-40) U/L Alkaline Phosphatase 66 (39-117) U/L Albumin 2.5 L (3.5-5.0) g/dL Microbiology Microbiology Results: Microbiology 03/26/24 11:30 Blood - Central Line Blood Culture - Final Klebsiella oxytoca 03/26/24 11:10 Blood - Central Line Blood Culture - Preliminary No growth after 48 hours. 03/25/24 03:16 Blood - Venous Blood Culture - Final Klebsiella oxytoca 03/25/24 03:02 Blood - Venous Blood Culture - Final Klebsiella oxytoca Imaging CT scan - abdomen: Attestation: I personally reviewed and interpreted this imaging study as follows: (dilated small bowel loops, panc cyst, right hydroureter, atherosclerosis ) Assessment and Plan (1) Acute blood loss anemia: Status: Acute Plan 1/ Acute blood loss anemia, with melena, has been sick with septicemia, could have mucosal bleeding karena with low plts or more likely peptic ulcer PLAN: /1 urgent EGD 2/ transfuse as needed, HGB 8 g/dl as target 3/ high dose PPI 4/ consider plts transfusion -recheck coagulation Procedures Date of Service Date of Service: 03/29/24
[2024-03-29] MEDS: Meropenem 500 MG VIAL IVPUSH (12:38)
--- NOTE | 2024-03-29 13:49 | PM.CCPN ---
Subjective Subjective Date of Service: 03/29/24 Critical Care Time (minutes): 35 Comment: Had episodes of melena yesterday, but pressors dropped after the dialysis back on vasopressor support this morning Transfusing 1 unit PRBC for a planned EGD this afternoon Physical Exam Vital Signs: Vital Signs: Last Vital Signs Temp 98.4 F 03/29/24 13:47 Pulse 122 H 03/29/24 13:47 Resp 18 03/29/24 13:47 BP 96/53 L 03/29/24 13:47 Pulse Ox 93 03/29/24 13:00 O2 Del Method Nasal Cannula 03/29/24 13:00 O2 Flow Rate 2.5 03/29/24 13:00 BMI result Body Mass Index 25.1 General: Chronic ill appearing and tired appearing Nutritional Appearance: well nourished and overweight Eyes: appearance normal, both eyes and all related structures; Alignment and Position: alignment normal and position normal Neck: No lymphadenopathy, no thyromegaly Resp: bilateral air entry equal, occasional added sounds present Cardio: Regular rate, regular rhythm; Heart sounds: S1 normal heart sound present and S2 normal heart sound present GI: soft, nontender, no guarding, no hepatosplenomegaly : bladder normal to inspection, bladder normal to palpation, no renal angle tenderness Skin: no rashes or lesions noted and elasticity normal Neuro: oriented to person, oriented to place, oriented to time and moves all extremities Objective Data Labs 03/29/24 09:36 03/29/24 04:00 Labs: Laboratory Results - last 24 hr 03/28/24 03/29/24 03/29/24 17:59 04:00 04:05 WBC 9.0 RBC 1.85 L Hgb 6.2 L* Hct 18.7 L* MCV 101.1 H MCH 33.5 H MCHC 33.2 RDW 22.7 H Plt Count 22 L D MPV 12.7 H Immature Gran % (Auto) 1.2 H Neut % (Auto) 80.8 H Lymph % (Auto) 9.6 L [place] % (Auto) 7.5 Eos % (Auto) 0.7 Baso % (Auto) 0.2 Lymph # (Auto) 0.9 L [place] # (Auto) 0.7 Eos # (Auto) 0.1 Baso # (Auto) 0.0 Abs Immat Gran (auto) 0.11 H Absolute Neuts (auto) 7.3 Absolute Nucleated RBC 0.000 Nucleated RBC % (auto) 0.0 VBG pH 7.50 H VBG pCO2 42 VBG pO2 49 VBG HCO3 33 H VBG O2 Saturation Not Reportable VBG Base Excess 9.7 Sodium 141 Potassium 2.4 L* Chloride 106 Carbon Dioxide 28 Anion Gap 9 L BUN 23 H Creatinine 2.62 H Estim Creat Clear Calc 23.6 Estimated GFR 24 Random Glucose 111 Calcium 7.2 L Phosphorus 1.0 L* Magnesium 1.6 Total Bilirubin 0.8 AST 11 ALT 8 Alkaline Phosphatase 66 Total Protein 4.3 L Albumin 2.5 L Random Vancomycin 12.5 L Blood Type Antibody Screen Crossmatch 03/29/24 09:36 WBC RBC Hgb 6.4 L* Hct 19.7 L* MCV MCH MCHC RDW Plt Count MPV Immature Gran % (Auto) Neut % (Auto) Lymph % (Auto) [place] % (Auto) Eos % (Auto) Baso % (Auto) Lymph # (Auto) [place] # (Auto) Eos # (Auto) Baso # (Auto) Abs Immat Gran (auto) Absolute Neuts (auto) Absolute Nucleated RBC Nucleated RBC % (auto) VBG pH VBG pCO2 VBG pO2 VBG HCO3 VBG O2 Saturation VBG Base Excess Sodium Potassium Chloride Carbon Dioxide Anion Gap BUN Creatinine Estim Creat Clear Calc Estimated GFR Random Glucose Calcium Phosphorus Magnesium Total Bilirubin AST ALT Alkaline Phosphatase Total Protein Albumin Random Vancomycin Blood Type A Positive Antibody Screen NEGATIVE Crossmatch See Detail Microbiology Microbiology Results: Microbiology 03/28/24 10:07 Blood - Central Line Blood Culture - Preliminary No growth after 24 hours. 03/28/24 10:07 Blood - Central Line Blood Culture - Preliminary No growth after 24 hours. 03/26/24 11:30 Blood - Central Line Blood Culture - Final Klebsiella oxytoca 03/26/24 11:10 Blood - Central Line Blood Culture - Preliminary No growth after 48 hours. 03/25/24 03:16 Blood - Venous Blood Culture - Final Klebsiella oxytoca 03/25/24 03:02 Blood - Venous Blood Culture - Final Klebsiella oxytoca Progress Note: A&P Assessment and plan (1) Atrial fibrillation with rapid ventricular response: Status: Acute (2) Sinus bradycardia: Status: Acute (3) PAF (paroxysmal atrial fibrillation): Status: Acute (4) Rectal mass: Status: Acute (5) End stage renal disease: Status: Acute (6) Acute renal failure: Status: Acute (7) Acidosis, lactic: Status: Acute (8) Malignant neoplasm of rectum: Status: Acute (9) Rectal carcinoma: Status: Acute (10) Septic shock: Status: Acute Plan Septic shock: Back on Levophed support since the dialysis, currently tapering down, down 2.0 4 this afternoon. Blood cultures positive for ESBL Klebsiella; can not rule out PermCath infection as of now. Last set of blood cultures negative after 24 hours Continue meropenem Acute blood loss anemia: Has some blood loss in the stool, with guaiac-positive possibly from EPEC enteritis. Patient has a longstanding history of refractory C diff, continue PO vancomycin for suppressive therapy Hemoglobin dropped again down to 6.2 this morning, receiving 1 unit of PRBC for an upper GI endoscopic evaluation of melena Acute thrombocytopenia: secondary to severe sepsis Platelet count 22k We will transfuse 1 unit of platelet for the upper GI endoscopy during the procedure End-stage renal disease: Undergoing renal replacement therapy this morning Has left subclavian port, on M/W/F dialysis schedule Low-sodium, potassium and phosphorus diet colorectal cancer: status post low anterior resection with diverting loop ileostomy and reversal at [facility] atrial fibrillation: Eliquis withheld due to concerns of blood loss anemia Prophylaxis: SCD, pantoprazole Quality Stroke Does the patient have a stroke diagnosis?: No VTE Prior VTE?: No VTE Risk Level:: Medical - moderate - high VTE Device Contraindication: Treatment Not Indicated VTE Drug Contraindication: N/A - Med Ordered
[2024-03-29 14:05] LABS: Hematocrit 24.2 % (42.0-52.0); Mean Corpuscular HGB Conc 33.5 g/dl (31.0-36.0); Mean Corpuscular Hemoglobin 33.1 pg (27.0-33.0); Mean Corpuscular Volume 98.8 fL (80.0-98.0); Mean Platelet Volume 13.2 fL (9.4-12.4); Red Blood Count 2.45 X10*6/uL (4.60-5.80); White Blood Count 8.9 X10*3/uL (4.8-10.8)
[2024-03-29 14:08] LABS: Hemoglobin 8.1 g/dl (14.0-18.0)
[2024-03-29 14:10] LABS: Platelet Count 20 X10*3/uL (160-400)
[2024-03-29] MEDS: Metoclopramide HCl 10 MG/2 ML VIAL 5 MG IVPUSH (14:11)
[2024-03-29 14:18] LABS: Alanine Aminotransferase 11 U/L (0-40); Albumin Level 2.5 g/dL (3.5-5.0); Anion Gap 13 (12-20); Aspartate Amino Transferase 16 U/L (5-37); Bilirubin Total 0.9 mg/dL (0.0-1.0); Blood Urea Nitrogen 28 mg/dL (9-16); Carbon Dioxide 25 mmol/L (22-29); Chloride 108 mmol/L (96-108); Creatinine Clr Calc Pharmacy 20.6; Estimated Glomerular Filt Rate 20; Glucose Random 133 mg/dL (60-115); Phosphorus 3.5 mg/dL (2.7-4.5); Potassium 3.1 mmol/L (3.3-5.1); Sodium 143 mmol/L (135-145); Total Protein 4.4 g/dL (6.5-8.0)
--- NOTE | 2024-03-29 14:34 | HO.ANESPROP2 ---
HPI - Anesthesia Eval Consult details Narrative: GI bleed PMFSH Active Problems Active Problems: All Active Problems Acute blood loss anemia (Acute) Septic shock (Acute) PAF (paroxysmal atrial fibrillation) (Acute) Pacemaker (Acute) Ileus (Acute) Acidosis, lactic (Acute) End stage renal disease (Acute) Recurrent Clostridioides difficile diarrhea (Acute) Sepsis (Acute) C. difficile colitis (Acute) C. difficile colitis (Acute) Physical deconditioning (Acute) Enteropathogenic Escherichia coli infection (Acute) Acute renal failure (Acute) BPH (benign prostatic hyperplasia) (Acute) Renal cyst (Acute) Rectal carcinoma (Acute) Atrial fibrillation with rapid ventricular response (Acute) Chronic anticoagulation (Acute) Sinus bradycardia (Acute) Normocytic anemia (Acute) Encounter for interrogation of cardiac pacemaker (Acute) Rectal mass (Acute) Malignant neoplasm of rectum (Acute) Past Medical History Medical History Recto-vesical fistula End stage renal disease Sick sinus syndrome Postoperative hematoma involving digestive system following digestive system procedure Aftercare following left shoulder joint replacement surgery Pacemaker OA (osteoarthritis) Borderline hyperlipidemia Obesity HTN (hypertension) EtOH dependence Mild cognitive impairment Inhibited sex excitement Atrial fibrillation Cancer of kidney High cholesterol Hypertension Family History Family History Mother Heart problem Family history of problems with anesthesia: No Surgical History History of Problems with Anesthesia: No Social History Social History Household Members: Significant Other Housing: House Do you presently have visiting nurse or other home services: No Alcohol intake: former Comment: refusing alarms Patient Tobacco Use Status: Former Tobacco user Tobacco use type: Cigarette e-Cigarette/Vaping Use: Never Used Advance Directives Date on File: 11/29/22 service: Yes Meds Allergies Allergy/AdvReac Type Severity Reaction Status Date / Time No Known Allergies [NKA] Allergy Mild NOT Verified 03/25/24 03:29 APPLICABLE Active Medications: Current Medications Acetaminophen (Acetaminophen 325 Mg Tablet) 650 mg PO Q6H PRN PRN Reason: Pain, Mild 1-3,fever,headache Fentanyl (Fentanyl Citrate/Pf 100 Mcg/2 Ml Vial) 50 mcg IVPUSH RQ4H PRN; Protocol PRN Reason: Pain, Moderate(Pain Scale 4-6) Norepinephrine Bitartrate (Levophed) 8 mg in 250 mls @ 0 mls/hr IVCONT .Q0M [facility]; Protocol Last Titration: 03/29/24 10:09 Dose: 0.04 mcg/kg/min, 5.78 mls/hr Phytonadione 10 mg/ Sodium (Chloride) 51 mls @ 51 mls/hr IV ONCE ONE Stop: 03/29/24 15:19 Melatonin (Melatonin 3 Mg Tablet) 6 mg PO BEDTIME PRN PRN Reason: Insomnia Meropenem (Meropenem 500 Mg Vial) 500 mg IVPUSH Q24H [facility] Last Admin: 03/29/24 12:38 Dose: 500 mg Ondansetron HCl (Ondansetron Hcl 4 Mg/2 Ml Vial) 4 mg IVPUSH Q8H PRN PRN Reason: Nausea and Vomiting Pantoprazole Sodium (Pantoprazole Sodium 40 Mg/10 Ml Vial) 40 mg IVPUSH BID@0630,1630 [facility] Last Admin: 03/29/24 05:32 Dose: 40 mg Sodium Chloride (0.9 % Sodium Chloride Flush 3 Ml Syringe) 3 ml IVFLUSH QSHIFT [facility] Last Admin: 03/29/24 08:04 Dose: Not Given Vancomycin HCl (Vancomycin Hcl 125 Mg Capsule) 250 mg PO Q6H [facility] Last Admin: 03/29/24 10:14 Dose: 250 mg Home Medications ?Medication ?Instructions ?Recorded ?Confirmed ?Last Taken ?Type clindamycin phosphate 1 % lotion 1 appl topical BID PRN Acne 03/08/24 03/25/24 Unknown History clobetasol 0.05 % topical cream 1 appl topical BID PRN itching/rash 03/08/24 03/25/24 Unknown History diltiazem HCl 240 mg 240 mg PO DAILY 03/08/24 03/25/24 Unknown History capsule,extended release 24 hr, controlled (DILT-XR) lisinopril 5 mg tablet 5 mg PO DAILY 03/08/24 03/25/24 Unknown History pramoxine 1 % lotion 1 appl topical BID PRN Itching 03/08/24 03/25/24 Unknown History Exam Height,Weight and Vital Signs: Height 5 ft 9 in Weight 77.111 kg Last Vital Signs Temp 98.4 F 03/29/24 13:47 Pulse 114 H 03/29/24 14:00 Resp 15 03/29/24 14:00 BP 113/63 03/29/24 14:00 Pulse Ox 100 03/29/24 14:00 O2 Del Method Nasal Cannula 03/29/24 14:00 O2 Flow Rate 2.5 03/29/24 14:00 Pertinent Lab Results Pertinent Lab Results: Laboratory Tests 03/25/24 03/25/24 03/25/24 03:02 03:08 06:26 WBC 14.5 H RBC 2.81 L Hgb 9.8 L Hct 31.3 L MCV 111.4 H MCH 34.9 H MCHC 31.3 RDW 25.7 H Plt Count 76 L MPV 12.5 H Immature Gran % (Auto) 1.0 H Neut % (Auto) 82.4 H Lymph % (Auto) 10.8 L [place] % (Auto) 5.7 Eos % (Auto) 0.0 Baso % (Auto) 0.1 Lymph # (Auto) 1.6 [place] # (Auto) 0.8 Eos # (Auto) 0.0 Baso # (Auto) 0.0 Abs Immat Gran (auto) 0.15 H Absolute Neuts (auto) 11.9 H Absolute Nucleated RBC 0.030 H Nucleated RBC % (auto) 0.2 Smear Tech's Comments Hold Purple Top SEE NOTE PT 21.3 H INR 1.8 H VBG pH 7.34 VBG pCO2 42 VBG pO2 27 VBG HCO3 23 VBG O2 Saturation 31.0 VBG Base Excess -1.7 Sodium 142 Potassium 3.4 Chloride 105 Carbon Dioxide 19 L Anion Gap 21 H BUN 24 H Creatinine 4.16 H* Estim Creat Clear Calc 14.8 Estimated GFR 14 POC Glucose Random Glucose 78 Lactic Acid 7.2 H* Lactic Acid F/U @ 2Hr 6.5 H* Calcium 7.0 L Phosphorus Magnesium Total Bilirubin 0.8 AST 39 H ALT 17 Alkaline Phosphatase 121 H Troponin I High Sens 77.2 H D Total Protein 5.2 L Albumin 1.8 L Lipase 5 L Stool Occult Blood Stl C. cayetanensis PCR Stool Rotavirus A PCR Stl Adenov F 40/41 PCR Stool Astrovirus (PCR) Stool Campylobacter PCR Stool Cryptosporidium PCR Stl Sh Tox Pr E STEC PCR Stool E coli O157 PCR Stl Enterotoxigenic E PCR Stool EPEC (PCR) Stool EAEC (PCR) Stl E. histolytica PCR Stool Giardia Lamblia PCR Stl P. shigelloides PCR Stool Salmonella PCR Stool Sapovirus (PCR) Stl Shigella/EIEC PCR St Y.enterocolitica PCR Stool Vibrio (PCR) Stl Vibrio cholerae PCR Stl Norovirus GI/GII PCR Random Vancomycin C. difficile Tox B Gene Blood Type Antibody Screen Crossmatch 03/25/24 03/25/24 03/25/24 11:00 15:18 21:30 WBC RBC Hgb Hct MCV MCH MCHC RDW Plt Count MPV Immature Gran % (Auto) Neut % (Auto) Lymph % (Auto) [place] % (Auto) Eos % (Auto) Baso % (Auto) Lymph # (Auto) [place] # (Auto) Eos # (Auto) Baso # (Auto) Abs Immat Gran (auto) Absolute Neuts (auto) Absolute Nucleated RBC Nucleated RBC % (auto) Smear Tech's Comments Hold Purple Top PT INR VBG pH VBG pCO2 VBG pO2 VBG HCO3 VBG O2 Saturation VBG Base Excess Sodium Potassium Chloride Carbon Dioxide Anion Gap BUN Creatinine Estim Creat Clear Calc Estimated GFR POC Glucose Random Glucose Lactic Acid 3.1 H* Lactic Acid F/U @ 2Hr 1.3 Calcium Phosphorus Magnesium Total Bilirubin AST ALT Alkaline Phosphatase Troponin I High Sens Total Protein Albumin Lipase Stool Occult Blood Stl C. cayetanensis PCR Not Detected Stool Rotavirus A PCR Not Detected Stl Adenov F 40/41 PCR Not Detected Stool Astrovirus (PCR) Not Detected Stool Campylobacter PCR Not Detected Stool Cryptosporidium PCR Not Detected Stl Sh Tox Pr E STEC PCR Not Detected Stool E coli O157 PCR Not applicable Stl Enterotoxigenic E PCR Not Detected Stool EPEC (PCR) Detected A Stool EAEC (PCR) Not Detected Stl E. histolytica PCR Not Detected Stool Giardia Lamblia PCR Not Detected Stl P. shigelloides PCR Not Detected Stool Salmonella PCR Not Detected Stool Sapovirus (PCR) Not Detected Stl Shigella/EIEC PCR Not Detected St Y.enterocolitica PCR Not Detected Stool Vibrio (PCR) Not Detected Stl Vibrio cholerae PCR Not Detected Stl Norovirus GI/GII PCR Not Detected Random Vancomycin C. difficile Tox B Gene NEGATIVE Blood Type Antibody Screen Crossmatch 03/26/24 03/26/24 03/26/24 04:58 05:00 06:21 WBC 13.3 H 13.8 H RBC 1.64 L D 1.80 L Hgb 5.6 L* D 6.2 L* Hct 18.5 L* D 20.7 L* MCV 112.8 H 115.0 H MCH 34.1 H 34.4 H MCHC 30.3 L 30.0 L RDW 25.3 H 25.4 H Plt Count 65 L 64 L MPV 12.2 12.3 Immature Gran % (Auto) 0.7 H Neut % (Auto) 88.1 H Lymph % (Auto) 4.3 L [place] % (Auto) 6.8 Eos % (Auto) 0.0 Baso % (Auto) 0.1 Lymph # (Auto) 0.6 L [place] # (Auto) 0.9 Eos # (Auto) 0.0 Baso # (Auto) 0.0 Abs Immat Gran (auto) 0.09 H Absolute Neuts (auto) 12.2 H Absolute Nucleated RBC 0.020 H 0.020 H Nucleated RBC % (auto) 0.2 0.1 Smear Tech's Comments VERIFIED Hold Purple Top PT INR VBG pH 7.32 VBG pCO2 32 VBG pO2 64 VBG HCO3 16 L VBG O2 Saturation Not Reportable VBG Base Excess -8.3 Sodium 144 Potassium 3.0 L Chloride 114 H Carbon Dioxide 16 L Anion Gap 17 BUN 31 H Creatinine 4.36 H* Estim Creat Clear Calc 14.1 Estimated GFR 13 POC Glucose Random Glucose 65 Lactic Acid Lactic Acid F/U @ 2Hr Calcium 6.4 L D Phosphorus Magnesium Total Bilirubin AST ALT Alkaline Phosphatase Troponin I High Sens Total Protein Albumin Lipase Stool Occult Blood Stl C. cayetanensis PCR Stool Rotavirus A PCR Stl Adenov F 40/41 PCR Stool Astrovirus (PCR) Stool Campylobacter PCR Stool Cryptosporidium PCR Stl Sh Tox Pr E STEC PCR Stool E coli O157 PCR Stl Enterotoxigenic E PCR Stool EPEC (PCR) Stool EAEC (PCR) Stl E. histolytica PCR Stool Giardia Lamblia PCR Stl P. shigelloides PCR Stool Salmonella PCR Stool Sapovirus (PCR) Stl Shigella/EIEC PCR St Y.enterocolitica PCR Stool Vibrio (PCR) Stl Vibrio cholerae PCR Stl Norovirus GI/GII PCR Random Vancomycin C. difficile Tox B Gene Blood Type A Positive Antibody Screen NEGATIVE Crossmatch See Detail 03/26/24 03/26/24 03/27/24 10:00 17:46 04:50 WBC 13.3 H 12.4 H RBC 2.85 L D 2.61 L Hgb 9.4 L D 8.7 L Hct 28.5 L D 26.0 L MCV 100.0 H D 99.6 H MCH 33.0 33.3 H MCHC 33.0 33.5 RDW 22.9 H 23.8 H Plt Count 41 L D 33 L MPV 10.3 11.8 Immature Gran % (Auto) 0.9 H 0.9 H Neut % (Auto) 88.7 H 85.7 H Lymph % (Auto) 3.7 L 6.7 L [place] % (Auto) 6.5 6.4 Eos % (Auto) 0.1 0.2 Baso % (Auto) 0.1 0.1 Lymph # (Auto) 0.5 L 0.8 L [place] # (Auto) 0.9 0.8 Eos # (Auto) 0.0 0.0 Baso # (Auto) 0.0 0.0 Abs Immat Gran (auto) 0.12 H 0.11 H Absolute Neuts (auto) 11.8 H 10.6 H Absolute Nucleated RBC 0.000 0.000 Nucleated RBC % (auto) 0.0 0.0 Smear Tech's Comments Hold Purple Top PT INR VBG pH VBG pCO2 VBG pO2 VBG HCO3 VBG O2 Saturation VBG Base Excess Sodium 140 Potassium 2.4 L* Chloride 106 Carbon Dioxide 21 L Anion Gap 15 BUN 21 H Creatinine 3.14 H Estim Creat Clear Calc 19.7 Estimated GFR 19 POC Glucose Random Glucose 134 H Lactic Acid Lactic Acid F/U @ 2Hr Calcium 7.3 L D Phosphorus 2.5 L Magnesium 1.7 Total Bilirubin 1.1 H AST 21 ALT 14 Alkaline Phosphatase 82 Troponin I High Sens Total Protein 4.5 L Albumin 2.6 L Lipase Stool Occult Blood POSITIVE Stl C. cayetanensis PCR Stool Rotavirus A PCR Stl Adenov F 40/41 PCR Stool Astrovirus (PCR) Stool Campylobacter PCR Stool Cryptosporidium PCR Stl Sh Tox Pr E STEC PCR Stool E coli O157 PCR Stl Enterotoxigenic E PCR Stool EPEC (PCR) Stool EAEC (PCR) Stl E. histolytica PCR Stool Giardia Lamblia PCR Stl P. shigelloides PCR Stool Salmonella PCR Stool Sapovirus (PCR) Stl Shigella/EIEC PCR St Y.enterocolitica PCR Stool Vibrio (PCR) Stl Vibrio cholerae PCR Stl Norovirus GI/GII PCR Random Vancomycin 11.6 L C. difficile Tox B Gene Blood Type Antibody Screen Crossmatch 03/27/24 03/27/24 03/27/24 05:01 12:06 17:39 WBC RBC Hgb Hct MCV MCH MCHC RDW Plt Count MPV Immature Gran % (Auto) Neut % (Auto) Lymph % (Auto) [place] % (Auto) Eos % (Auto) Baso % (Auto) Lymph # (Auto) [place] # (Auto) Eos # (Auto) Baso # (Auto) Abs Immat Gran (auto) Absolute Neuts (auto) Absolute Nucleated RBC Nucleated RBC % (auto) Smear Tech's Comments Hold Purple Top PT INR VBG pH 7.41 VBG pCO2 42 VBG pO2 57 VBG HCO3 27 H VBG O2 Saturation 88.0 VBG Base Excess 2.6 Sodium Potassium Chloride Carbon Dioxide Anion Gap BUN Creatinine Estim Creat Clear Calc Estimated GFR POC Glucose 186 H 100 Random Glucose Lactic Acid Lactic Acid F/U @ 2Hr Calcium Phosphorus Magnesium Total Bilirubin AST ALT Alkaline Phosphatase Troponin I High Sens Total Protein Albumin Lipase Stool Occult Blood Stl C. cayetanensis PCR Stool Rotavirus A PCR Stl Adenov F 40/41 PCR Stool Astrovirus (PCR) Stool Campylobacter PCR Stool Cryptosporidium PCR Stl Sh Tox Pr E STEC PCR Stool E coli O157 PCR Stl Enterotoxigenic E PCR Stool EPEC (PCR) Stool EAEC (PCR) Stl E. histolytica PCR Stool Giardia Lamblia PCR Stl P. shigelloides PCR Stool Salmonella PCR Stool Sapovirus (PCR) Stl Shigella/EIEC PCR St Y.enterocolitica PCR Stool Vibrio (PCR) Stl Vibrio cholerae PCR Stl Norovirus GI/GII PCR Random Vancomycin C. difficile Tox B Gene Blood Type Antibody Screen Crossmatch 03/28/24 03/28/24 03/28/24 05:04 05:19 05:20 WBC 7.6 RBC 2.28 L Hgb 7.6 L Hct 23.0 L MCV 100.9 H MCH 33.3 H MCHC 33.0 RDW 23.5 H Plt Count 17 L* MPV 13.0 H Immature Gran % (Auto) 1.5 H Neut % (Auto) 85.0 H Lymph % (Auto) 7.7 L [place] % (Auto) 5.0 Eos % (Auto) 0.7 Baso % (Auto) 0.1 Lymph # (Auto) 0.6 L [place] # (Auto) 0.4 Eos # (Auto) 0.1 Baso # (Auto) 0.0 Abs Immat Gran (auto) 0.11 H Absolute Neuts (auto) 6.4 Absolute Nucleated RBC 0.000 Nucleated RBC % (auto) 0.0 Smear Tech's Comments Hold Purple Top PT INR VBG pH VBG pCO2 VBG pO2 VBG HCO3 VBG O2 Saturation VBG Base Excess Sodium 139 Potassium 2.6 L* Chloride 108 Carbon Dioxide 24 Anion Gap 10 L BUN 37 H Creatinine 3.84 H Estim Creat Clear Calc 16.1 Estimated GFR 15 POC Glucose Random Glucose 82 Lactic Acid Lactic Acid F/U @ 2Hr Calcium 7.0 L Phosphorus 1.8 L Magnesium 1.6 Total Bilirubin 0.9 AST 14 ALT 10 Alkaline Phosphatase 82 Troponin I High Sens Total Protein 3.9 L Albumin 2.1 L Lipase Stool Occult Blood Stl C. cayetanensis PCR Stool Rotavirus A PCR Stl Adenov F 40/41 PCR Stool Astrovirus (PCR) Stool Campylobacter PCR Stool Cryptosporidium PCR Stl Sh Tox Pr E STEC PCR Stool E coli O157 PCR Stl Enterotoxigenic E PCR Stool EPEC (PCR) Stool EAEC (PCR) Stl E. histolytica PCR Stool Giardia Lamblia PCR Stl P. shigelloides PCR Stool Salmonella PCR Stool Sapovirus (PCR) Stl Shigella/EIEC PCR St Y.enterocolitica PCR Stool Vibrio (PCR) Stl Vibrio cholerae PCR Stl Norovirus GI/GII PCR Random Vancomycin 15.0 C. difficile Tox B Gene Blood Type Antibody Screen Crossmatch 03/28/24 03/28/24 03/29/24 05:23 17:59 04:00 WBC 9.0 RBC 1.85 L Hgb 6.2 L* Hct 18.7 L* MCV 101.1 H MCH 33.5 H MCHC 33.2 RDW 22.7 H Plt Count 22 L D MPV 12.7 H Immature Gran % (Auto) 1.2 H Neut % (Auto) 80.8 H Lymph % (Auto) 9.6 L [place] % (Auto) 7.5 Eos % (Auto) 0.7 Baso % (Auto) 0.2 Lymph # (Auto) 0.9 L [place] # (Auto) 0.7 Eos # (Auto) 0.1 Baso # (Auto) 0.0 Abs Immat Gran (auto) 0.11 H Absolute Neuts (auto) 7.3 Absolute Nucleated RBC 0.000 Nucleated RBC % (auto) 0.0 Smear Tech's Comments Hold Purple Top PT INR VBG pH 7.40 VBG pCO2 44 VBG pO2 50 VBG HCO3 27 H VBG O2 Saturation TNP VBG Base Excess 2.9 Sodium 141 Potassium 2.4 L* Chloride 106 Carbon Dioxide 28 Anion Gap 9 L BUN 23 H Creatinine 2.62 H Estim Creat Clear Calc 23.6 Estimated GFR 24 POC Glucose Random Glucose 111 Lactic Acid Lactic Acid F/U @ 2Hr Calcium 7.2 L Phosphorus 1.0 L* Magnesium 1.6 Total Bilirubin 0.8 AST 11 ALT 8 Alkaline Phosphatase 66 Troponin I High Sens Total Protein 4.3 L Albumin 2.5 L Lipase Stool Occult Blood Stl C. cayetanensis PCR Stool Rotavirus A PCR Stl Adenov F 40/41 PCR Stool Astrovirus (PCR) Stool Campylobacter PCR Stool Cryptosporidium PCR Stl Sh Tox Pr E STEC PCR Stool E coli O157 PCR Stl Enterotoxigenic E PCR Stool EPEC (PCR) Stool EAEC (PCR) Stl E. histolytica PCR Stool Giardia Lamblia PCR Stl P. shigelloides PCR Stool Salmonella PCR Stool Sapovirus (PCR) Stl Shigella/EIEC PCR St Y.enterocolitica PCR Stool Vibrio (PCR) Stl Vibrio cholerae PCR Stl Norovirus GI/GII PCR Random Vancomycin 12.5 L C. difficile Tox B Gene Blood Type Antibody Screen Crossmatch 03/29/24 03/29/24 03/29/24 04:05 09:36 13:45 WBC 8.9 RBC 2.45 L D Hgb 6.4 L* 8.1 L D Hct 19.7 L* 24.2 L D MCV 98.8 H MCH 33.1 H MCHC 33.5 RDW 21.0 H Plt Count 20 L* MPV 13.2 H Immature Gran % (Auto) Neut % (Auto) Lymph % (Auto) [place] % (Auto) Eos % (Auto) Baso % (Auto) Lymph # (Auto) [place] # (Auto) Eos # (Auto) Baso # (Auto) Abs Immat Gran (auto) Absolute Neuts (auto) Absolute Nucleated RBC 0.000 Nucleated RBC % (auto) 0.0 Smear Tech's Comments Hold Purple Top PT INR VBG pH 7.50 H VBG pCO2 42 VBG pO2 49 VBG HCO3 33 H VBG O2 Saturation Not Reportable VBG Base Excess 9.7 Sodium 143 Potassium 3.1 L D Chloride 108 Carbon Dioxide 25 Anion Gap 13 BUN 28 H Creatinine 2.99 H Estim Creat Clear Calc 20.6 Estimated GFR 20 POC Glucose Random Glucose 133 H Lactic Acid Lactic Acid F/U @ 2Hr Calcium 7.0 L Phosphorus 3.5 Magnesium Total Bilirubin 0.9 AST 16 ALT 11 Alkaline Phosphatase Troponin I High Sens Total Protein 4.4 L Albumin 2.5 L Lipase Stool Occult Blood Stl C. cayetanensis PCR Stool Rotavirus A PCR Stl Adenov F 40/41 PCR Stool Astrovirus (PCR) Stool Campylobacter PCR Stool Cryptosporidium PCR Stl Sh Tox Pr E STEC PCR Stool E coli O157 PCR Stl Enterotoxigenic E PCR Stool EPEC (PCR) Stool EAEC (PCR) Stl E. histolytica PCR Stool Giardia Lamblia PCR Stl P. shigelloides PCR Stool Salmonella PCR Stool Sapovirus (PCR) Stl Shigella/EIEC PCR St Y.enterocolitica PCR Stool Vibrio (PCR) Stl Vibrio cholerae PCR Stl Norovirus GI/GII PCR Random Vancomycin C. difficile Tox B Gene Blood Type A Positive Antibody Screen NEGATIVE Crossmatch See Detail Airway Mallampati Class: II TM Dist: >3cm Neck ROM: Full Loose/Missing/Broken Teeth: No Heart: RRR Lungs: CTAB Assessment and Plan Assessment Anesthesia Assessment: Anesthesia Plan Discussed and Chart Reviewed Final Anesthetic Review Family History of Problems with Anesthesia: No History of Problems with Anesthesia: No NPO: Yes ASA Class: IV Final Preanesthetic Review: No Changes in Pt Med Stat, Meds/Allgs Chart Reviewed, Consent Obtained/Reviewed and Anes Risks/Benef Reviewed Patient Risk: High Procedure Risk: Low Anesthetic Plan Anesthetic Plan: GA Disposition: Inp. Admit - ICU
[2024-03-29 14:41] LABS: Alkaline Phosphatase 64 U/L (39-117)
[2024-03-29] MEDS: Phytonadione (Vit K1) 10 MG in 0.9 % Sodium Chloride 50 ML 51 MG IV (14:49)
--- NOTE | 2024-03-29 14:52 | MHC.SHP ---
Pre-Procedural Eval Section A - 24 Hr Update-Section A only Date of Service: 03/29/24 The patient is an INPATIENT: Yes The patient has been examined within 24 hours of the surgical procedure. The History & Physical has been completed within 30 days and I have reviewed it.: Yes Section B - Complete if H&P > 30 days Chief Complaint: Diarrhea Allergies: Allergies Allergy/AdvReac Type Severity Reaction Status Date / Time No Known Allergies [NKA] Allergy Mild NOT Verified 03/25/24 03:29 APPLICABLE Plan I have reviewed the history and physical and performed a pertinent physical examination on my patient. No changes have occurred unless specified. Time Spent With Patient Time: Total time managing care of this patient today ____ minutes.
--- NOTE | 2024-03-29 15:10 | PC.NURSE ---
Addendum entered by Zaida Galdamez, HAILEY 03/29/24 17:25: at 1550 patient transported back to the room, Original Note: Patient off unit for EGD
[2024-03-29 15:24] LABS: Fibrinogen 284 MG/DL (259-690); INTERNATIONAL NORM RATIO 1.2 (0.9-1.1); Prothrombin Time 14.4 SEC (10.9-12.4)
[2024-03-29 15:26] LABS: D Dimer High Sensitivity 330 NG/ML
--- NOTE | 2024-03-29 15:47 | W.PM.OPN ---
Operative Note Operative Note Date of Service: 03/29/24 Narrative: Procedure Description: EGD Indication: Acute blood loss anemia Anesthesia: MAC FLEXIBLE TRANSORAL UPPER GASTROINTESTINAL ENDOSCOPY UPPER ENDOSCOPY Consent: Indications for the procedure and potential complications of bleeding, perforation, reaction to medications and missed diagnosis were discussed with the patient and informed consent was obtained. Instrument: Olympus GIF H 190 J mid size upper endoscope Monitoring: Vital signs and clinical assessment, continuous EKG monitoring, Pulse oximetry, Carbon Dioxide monitoring and blood pressure monitoring were done throughout the procedure. Procedure: The patient was placed in the left lateral decubitis position and pre-procedure medications were administered and a bite block was placed. The endoscope was inserted into the mouth and advanced under direct vision to the third part of duodenum. A careful inspection was made as the upper endoscope was withdrawn including a retroflexed examination of the proximal stomach; Findings and interventions are described below. Findings: Larynx:normal Esophagus: GE junction at 38 cm, diaphragm hiatus at 38 cm, ringed mucosa with thick white adherent plaques consistent with michael Stomach: patchy erythema . Grade 2 flap valve on retroflexed examination of the cardia. Duodenum: severe duodenitis, with erythematous and swollen mucosa, there was a red pot noted which was bleeding slowly. 2 clips were applied and then hemospray and it seemed to cease. Intervention: clips and hemospray to proable dieulafoy lesion Impression/Findings: gastritis duodenitis candidal esophagitis dieulafoy lesion PLAN: high dose PPI, with carafate GERD precautions platelets for count closer to 50, DDAVP and factors if INR elevated with vit K
[2024-03-29] MEDS: 0.9 % Sodium Chloride Flush 3 ML SYRINGE IVFLUSH (17:02)
--- NOTE | 2024-03-29 19:06 | PC.NURSE ---
Patient a&o forgetful at times, vague, continues needing 2 to 2.5L NC of O2 with sat's above 95%, minimal urine output using urinal about 20ml dark yellow urine, multiple loose, black/tarry throughout the day on the bedpen. Patient received 1 unit of RBC and 1 unit of platelets. Non-pitting edema to bilateral lower extremities, patient did not get oob. GI consulted and EGD was completed in the afternoon, patient resting with no complaints, poor PO intake at lunch and dinner. BC resulted GNR with Sosa. Patient on contact precaution for hx. ESBL in urine. Levophed paused at 1630
[2024-03-29 21:08] LABS: PLT CLUMP 1
[2024-03-29 21:10] LABS: Mean Corpuscular HGB Conc 33.8 g/dl (31.0-36.0); Mean Corpuscular Volume 97.6 fL (80.0-98.0); Mean Platelet Volume 10.7 fL (9.4-12.4); Red Blood Count 2.12 X10*6/uL (4.60-5.80); Red Cell Distribution Width 21.3 % (11.0-16.0)
[2024-03-29 21:16] LABS: Platelet Count 38 X10*3/uL (160-400); White Blood Count 7.8 X10*3/uL (4.8-10.8)
[2024-03-29 21:18] LABS: Hematocrit 20.7 % (42.0-52.0)
[2024-03-29 21:31] LABS: Anion Gap 13 (12-20); Blood Urea Nitrogen 30 mg/dL (9-16); Calcium 6.9 mg/dL (8.4-10.2); Carbon Dioxide 26 mmol/L (22-29); Chloride 107 mmol/L (96-108); Creatinine Clr Calc Pharmacy 20.4; Estimated Glomerular Filt Rate 20; Glucose Random 74 mg/dL (60-115); Potassium 2.7 mmol/L (3.3-5.1); Sodium 143 mmol/L (135-145)
[2024-03-29] MEDS: Potassium Chloride Packet 20 MEQ PACKET 40 MEQ PO (22:11)
[2024-03-30] VITALS (16 sets, daily range): BP systolic 95–118; BP diastolic 41–80; PULSE 89–126; RESP 11–28; TEMP 36.1–36.9; O2SAT 92–100
[2024-03-30 00:34] LABS: Hemoglobin 7.1 g/dl (14.0-18.0)
[2024-03-30 00:36] LABS: Hematocrit 20.7 % (42.0-52.0)
[2024-03-30] MEDS: vancomycin HCL 125 MG CAPSULE 250 MG PO ×4 (04:18→20:21)
[2024-03-30 04:43] LABS: MANUAL DIFF FLAG NO
[2024-03-30 04:53] LABS: Basophils Percent Auto 0.3 % (0-2); Eosinophils Absolute Auto 0.1 X10*3/uL (0.0-0.4); Imm Gran Abs Auto 0.06 X10*3/uL (0.00-0.03); Imm Gran Pct Auto 0.8 % (0.0-0.4); Lymphocytes Absolute Auto 0.9 X10*3/uL (1.2-4.9); Mean Corpuscular Hemoglobin 32.4 pg (27.0-33.0); Mean Corpuscular Volume 98.1 fL (80.0-98.0); Mean Platelet Volume 11.1 fL (9.4-12.4); Monocytes Absolute Auto 0.6 X10*3/uL (0.1-1.2); Monocytes Percent Auto 8.2 % (2-11); Neutrophils Absolute Auto 5.5 x10*3/uL (2.0-8.3); Neutrophils Percent Auto 77.7 % (45-73); Red Blood Count 2.13 X10*6/uL (4.60-5.80); White Blood Count 7.1 X10*3/uL (4.8-10.8)
--- NOTE | 2024-03-30 04:54 | PC.NURSE ---
assumed care at 1900,pt A&O no c/o pain, s/p EGD H&H 7.0 /20.7 no new orders at this time per PA. dark loose BM this shift see I&O, medicated per apr, levo remains off. bed locked in lowest position. pate in reach.
[2024-03-30 04:56] LABS: Platelet Count 28 X10*3/uL (160-400)
[2024-03-30 04:57] LABS: Hematocrit 20.9 % (42.0-52.0); Hemoglobin 6.9 g/dl (14.0-18.0)
[2024-03-30 05:08] LABS: Alanine Aminotransferase 10 U/L (0-40); Albumin Level 2.3 g/dL (3.5-5.0); Alkaline Phosphatase 62 U/L (39-117); Anion Gap 11 (12-20); Aspartate Amino Transferase 16 U/L (5-37); Bilirubin Total 0.9 mg/dL (0.0-1.0); Blood Urea Nitrogen 32 mg/dL (9-16); Calcium 6.8 mg/dL (8.4-10.2); Carbon Dioxide 25 mmol/L (22-29); Chloride 109 mmol/L (96-108); Creatinine Clr Calc Pharmacy 18.8; Estimated Glomerular Filt Rate 18; Glucose Random 76 mg/dL (60-115); Magnesium 1.5 mg/dL (1.6-2.6); Phosphorus 2.6 mg/dL (2.7-4.5); Potassium 3.3 mmol/L (3.3-5.1); Sodium 142 mmol/L (135-145)
[2024-03-30] MEDS: Magnesium Sulfate/D5W 1 GM/100 ML PIGGYBACK IV (08:24)
[2024-03-30] MEDS: 0.9 % Sodium Chloride Flush 3 ML SYRINGE IVFLUSH (08:24)
[2024-03-30] MEDS: Meropenem 500 MG VIAL IVPUSH ×2 (11:27→23:01)
--- NOTE | 2024-03-30 11:54 | PM.CCPN ---
Subjective Subjective Date of Service: 03/30/24 Critical Care Time (minutes): 35 Comment: New events overnight Hemoglobin stable overnight Off Levophed since 16:00 yesterday Patient is awake alert Physical Exam Vital Signs: Vital Signs: Last Vital Signs Temp 97.4 F 03/30/24 08:00 Pulse 111 H 03/30/24 11:33 Resp 18 03/30/24 11:00 BP 105/65 03/30/24 11:33 Pulse Ox 100 03/30/24 11:00 O2 Del Method Nasal Cannula 03/30/24 11:00 O2 Flow Rate 2.5 03/30/24 11:00 BMI result Body Mass Index 25.1 General: Elderly male, not in acute distress, lying in the bed, chronically ill-appearing Nutritional Appearance: well nourished and overweight Eyes: appearance normal, both eyes and all related structures; Alignment and Position: alignment normal and position normal Neck: No lymphadenopathy, no thyromegaly Resp: bilateral air entry equal, occasional added sounds present Cardio: Regular rate, regular rhythm; Heart sounds: S1 normal heart sound present and S2 normal heart sound present GI: soft, nontender, no guarding, no hepatosplenomegaly : bladder normal to inspection, bladder normal to palpation, no renal angle tenderness Skin: no rashes or lesions noted and elasticity normal Neuro: oriented to person, oriented to place, oriented to time and moves all extremities Objective Data Labs 03/30/24 04:10 03/30/24 04:10 Labs: Laboratory Results - last 24 hr 03/29/24 03/29/24 03/29/24 09:36 13:45 15:02 WBC 8.9 RBC 2.45 L D Hgb 8.1 L D Hct 24.2 L D MCV 98.8 H MCH 33.1 H MCHC 33.5 RDW 21.0 H Plt Count 20 L* MPV 13.2 H Immature Gran % (Auto) Neut % (Auto) Lymph % (Auto) [place] % (Auto) Eos % (Auto) Baso % (Auto) Lymph # (Auto) [place] # (Auto) Eos # (Auto) Baso # (Auto) Abs Immat Gran (auto) Absolute Neuts (auto) Absolute Nucleated RBC 0.000 Nucleated RBC % (auto) 0.0 PT 14.4 H D INR 1.2 H Fibrinogen 284 D-Dimer High Sensitivty 330 Sodium 143 Potassium 3.1 L D Chloride 108 Carbon Dioxide 25 Anion Gap 13 BUN 28 H Creatinine 2.99 H Estim Creat Clear Calc 20.6 Estimated GFR 20 Random Glucose 133 H Calcium 7.0 L Phosphorus 3.5 Magnesium Total Bilirubin 0.9 AST 16 ALT 11 Alkaline Phosphatase 64 Total Protein 4.4 L Albumin 2.5 L Blood Type A Positive Antibody Screen NEGATIVE Crossmatch See Detail 03/29/24 03/30/24 03/30/24 20:34 00:28 04:10 WBC 7.8 7.1 RBC 2.12 L 2.13 L Hgb 7.0 L* 7.1 L 6.9 L* Hct 20.7 L* 20.7 L* 20.9 L* MCV 97.6 98.1 H MCH 33.0 32.4 MCHC 33.8 33.0 RDW 21.3 H 21.0 H Plt Count 38 L D 28 L D MPV 10.7 11.1 Immature Gran % (Auto) 0.8 H Neut % (Auto) 77.7 H Lymph % (Auto) 12.0 L [place] % (Auto) 8.2 Eos % (Auto) 1.0 Baso % (Auto) 0.3 Lymph # (Auto) 0.9 L [place] # (Auto) 0.6 Eos # (Auto) 0.1 Baso # (Auto) 0.0 Abs Immat Gran (auto) 0.06 H Absolute Neuts (auto) 5.5 Absolute Nucleated RBC 0.000 0.000 Nucleated RBC % (auto) 0.0 0.0 PT INR Fibrinogen D-Dimer High Sensitivty Sodium 143 142 Potassium 2.7 L* 3.3 D Chloride 107 109 H Carbon Dioxide 26 25 Anion Gap 13 11 L BUN 30 H 32 H Creatinine 3.03 H 3.28 H Estim Creat Clear Calc 20.4 18.8 Estimated GFR 20 18 Random Glucose 74 76 Calcium 6.9 L 6.8 L Phosphorus 2.6 L Magnesium 1.5 L Total Bilirubin 0.9 AST 16 ALT 10 Alkaline Phosphatase 62 Total Protein 4.0 L Albumin 2.3 L Blood Type Antibody Screen Crossmatch Microbiology Microbiology Results: Microbiology 03/25/24 03:02 Blood - Venous Blood Culture - Final Klebsiella oxytoca 03/26/24 11:10 Blood - Central Line Blood Culture - Preliminary Prelim: GNR Gram Stain only 03/28/24 10:07 Blood - Central Line Blood Culture - Preliminary No growth after 24 hours. 03/28/24 10:07 Blood - Central Line Blood Culture - Preliminary No growth after 24 hours. 03/26/24 11:30 Blood - Central Line Blood Culture - Final Klebsiella oxytoca 03/25/24 03:16 Blood - Venous Blood Culture - Final Klebsiella oxytoca Progress Note: A&P Assessment and plan (1) Atrial fibrillation with rapid ventricular response: Status: Acute (2) Sinus bradycardia: Status: Acute (3) Encounter for interrogation of cardiac pacemaker: Status: Acute (4) PAF (paroxysmal atrial fibrillation): Status: Acute (5) Rectal mass: Status: Acute (6) End stage renal disease: Status: Acute (7) Acute renal failure: Status: Acute (8) BPH (benign prostatic hyperplasia): Status: Acute Plan Septic shock: Off Levophed since 16:00 yesterday, currently blood pressure stable. Blood cultures positive for ESBL Klebsiella; can not rule out PermCath infection as of now. Last set of blood cultures negative after 48 hours- looks like possibly we have cleared the infection Continue meropenem Acute blood loss anemia: Upper GI bleed: Had an upper GI endoscopy which showed oozing blood vessel, it was clipped yesterday. Diet advanced to full liquid and soft diet. Continue pantoprazole. Hemoglobin stable overnight, we will repeat a CBC this evening Has some blood loss in the stool, with guaiac-positive possibly from EPEC enteritis. Patient has a longstanding history of refractory C diff, continue PO vancomycin for suppressive therapy Acute thrombocytopenia: secondary to severe sepsis Platelet count 32k Received 1 unit of platelet for the upper GI endoscopy yesterday We will hold off on further platelet transfusion as it is not beneficial. End-stage renal disease: Has left subclavian port, on M/W/F dialysis schedule as per Nephrology Low-sodium, potassium and phosphorus diet colorectal cancer: status post low anterior resection with diverting loop ileostomy and reversal at [facility] atrial fibrillation: Eliquis withheld due to concerns of blood loss anemia Prophylaxis: SCD, pantoprazole Quality Stroke Does the patient have a stroke diagnosis?: No VTE Prior VTE?: No VTE Risk Level:: Medical - moderate - high VTE Device Contraindication: Treatment Not Indicated VTE Drug Contraindication: N/A - Med Ordered
--- NOTE | 2024-03-30 12:54 | PM.EVENT ---
Event Note Date of Service: 03/31/24 Event Note: 78-year-old male with history of ESRD on HD MWF, colorectal cancer status post low anterior resection with diverting loop ileostomy and reversal at [facility], recurrent c diff, chronic R hydonephrosis, and atrial fibrillation on Eliquis who presents to the emergency department with persistent diarrhea 3-4x/day with associated weakness, hospital course complicated by septic shock, bacteremia and GIB with acute blood loss anemia Diarrhea, h/o Cdif, negative Cdif this time. 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 GI bleeding acute blood loss anemia S/p EGD on 03/29 with finding of gastritis duodenitis candidal esophagitis dieulafoy lesion s/p clipping and hemospray H/H low but stable, to avoid fluid overload and need for urgent dialysis holding off transfusion, unless hct < 20 and or hemodynamically unstable. will transfusion with dialysis tomorrow End-stage renal disease on HD MWF Acute Lactic acidosis - likely secondary to dehydration and ESRD Atrial fibrillation, rate controlled. Hold eliquis in light of recent gib and profound anemia, Full code VTE prophylaxis: scd Time Spent With Patient Time: Total time managing care of this patient today ____ minutes.
--- NOTE | 2024-03-30 13:29 | HO.POSTANES ---
Post Anesthesia Evaluation Post Anesthesia Evaluation Date of Service: 03/30/24 Vital Signs: Vital Signs Temp Pulse Resp BP Pulse Ox O2 Del Method O2 Flow Rate 03/30/24 12:00 98.5 F 110 H 18 99/61 99 Nasal Cannula 2.5 03/30/24 11:33 111 H 105/65 03/30/24 11:00 118 H 18 115/70 100 Nasal Cannula 2.5 03/30/24 10:00 111 H 18 103/65 100 Nasal Cannula 2.5 03/30/24 09:00 108 H 20 105/69 100 Nasal Cannula 2.5 03/30/24 08:00 97.4 F 120 H 16 103/59 L 96 Nasal Cannula 2.5 03/30/24 07:00 120 H 28 H 106/54 L 96 Nasal Cannula 2.5 03/30/24 06:00 105 H 11 L 104/61 100 Nasal Cannula 2.5 03/30/24 05:00 125 H 14 95/56 L 98 Nasal Cannula 2.5 03/30/24 04:00 97.6 F 89 15 104/41 L 100 Nasal Cannula 2.5 03/30/24 03:00 126 H 11 L 115/54 L 100 Nasal Cannula 2.5 03/30/24 02:00 121 H 18 109/63 97 Nasal Cannula 2.5 Anesthesia: TIVA Mental Status: Awake Pain Control: Satisfactory Nausea/Vomiting: None Hydration: Adequate Anesthesia-Related Issues: No Anes. Related Issues
--- NOTE | 2024-03-30 14:33 | PC.NURSE ---
patient transferred to telemetry unit at this time, by hospital staff. RN to RN handoff given over the phone prior to transport. patient right EJ triple lumen removed prior to leaving ICU, DSG C/D/I see IV charting. patient in no distress, no acute concerns, questions answered, vitals stable, see shift assessment for patient condition.
[2024-03-30] MEDS: Acetaminophen 325 MG TABLET 650 MG PO (15:49)
[2024-03-30] MEDS: Pantoprazole Sodium 40 MG/10 ML VIAL IVPUSH (15:50)
[2024-03-30] MEDS: Metoprolol Tartrate 12.5 MG HALFTAB PO ×2 (17:04→22:58)
[2024-03-30] MEDS: Amiodarone HCL 200 MG TABLET PO (17:04)
[2024-03-30 18:42] LABS: Hematocrit 23.4 % (42.0-52.0); Mean Corpuscular HGB Conc 34.2 g/dl (31.0-36.0); Mean Corpuscular Hemoglobin 33.3 pg (27.0-33.0); Mean Corpuscular Volume 97.5 fL (80.0-98.0); Mean Platelet Volume 11.4 fL (9.4-12.4); Red Cell Distribution Width 21.3 % (11.0-16.0); White Blood Count 7.6 X10*3/uL (4.8-10.8)
[2024-03-30 18:51] LABS: Platelet Count 18 X10*3/uL (160-400)
[2024-03-30] MEDS: Ascorbic Acid 250 MG TABLET PO (20:21)
[2024-03-30] MEDS: Ferrous Sulfate 324 MG TABLET.DR PO (20:21)
[2024-03-31] VITALS (10 sets, daily range): BP systolic 98–128; BP diastolic 53–84; PULSE 91–155; RESP 16–20; TEMP 36.3–37.4; O2SAT 91–94
[2024-03-31] MEDS: Pantoprazole Sodium 40 MG/10 ML VIAL IVPUSH ×2 (05:05→18:04)
[2024-03-31] MEDS: vancomycin HCL 125 MG CAPSULE 250 MG PO ×4 (05:05→21:41)
[2024-03-31] MEDS: Metoprolol Tartrate 12.5 MG HALFTAB PO ×2 (05:05→10:16)
[2024-03-31 07:17] LABS: Hematocrit 23.6 % (42.0-52.0); Hemoglobin 7.8 g/dl (14.0-18.0); Mean Corpuscular HGB Conc 33.1 g/dl (31.0-36.0); Mean Corpuscular Hemoglobin 32.4 pg (27.0-33.0); Mean Corpuscular Volume 97.9 fL (80.0-98.0); Mean Platelet Volume 13.9 fL (9.4-12.4); Red Blood Count 2.41 X10*6/uL (4.60-5.80); Red Cell Distribution Width 21.2 % (11.0-16.0); White Blood Count 7.2 X10*3/uL (4.8-10.8)
[2024-03-31 07:22] LABS: Platelet Count 23 X10*3/uL (160-400)
[2024-03-31] MEDS: Ferrous Sulfate 324 MG TABLET.DR PO ×2 (10:16→21:41)
[2024-03-31] MEDS: Amiodarone HCL 200 MG TABLET PO (10:16)
[2024-03-31] MEDS: Ascorbic Acid 250 MG TABLET PO ×2 (10:16→21:41)
--- NOTE | 2024-03-31 12:02 | P.PNIM_ITS ---
Subjective Subjective Date of Service: 03/31/24 Interval History: f/u on septic shock, uti, bacteremia, hypotension and sepsis, gib anemia Physical Exam 2 Vital Signs: Vital Signs: Last Vital Signs Temp 97.5 F 03/31/24 11:12 Pulse 115 H 03/31/24 11:12 Resp 18 03/31/24 11:20 BP 105/66 03/31/24 11:12 Pulse Ox 94 03/31/24 07:19 O2 Del Method Room Air 03/31/24 07:19 O2 Flow Rate 2.5 03/30/24 12:00 BMI result Body Mass Index 25.1 Const: Other: General: AO X 3, no acute distress Resp: CTA bilateral CVS: S1,S2,RRR GI: +BS, NT, no distention Skin: No rash Neuro: motor grossly intact Psych: appropriate affect Objective Data Active Medications Acetaminophen (Acetaminophen 325 Mg Tablet) 650 mg PO Q6H PRN PRN Reason: Pain, Mild 1-3,fever,headache Last Admin: 03/30/24 15:49 Dose: 650 mg Documented By: LEAH Amiodarone HCl (Amiodarone Hcl 200 Mg Tablet) 200 mg PO DAILY [facility] Last Admin: 03/31/24 10:16 Dose: 200 mg Documented By: DEISY Ascorbic Acid (Ascorbic Acid 250 Mg Tablet) 250 mg PO BID [facility] Last Admin: 03/31/24 10:16 Dose: 250 mg Documented By: DEISY Ferrous Sulfate (Ferrous Sulfate 324 Mg Tablet.) 324 mg PO BID [facility] Last Admin: 03/31/24 10:16 Dose: 324 mg Documented By: DEISY Hydromorphone HCl (Hydromorphone Hcl 0.5 Mg/0.5 Ml Syringe) 0.5 mg IVPUSH Q4H PRN; Protocol PRN Reason: Pain, Moderate(Pain Scale 4-6) Melatonin (Melatonin 3 Mg Tablet) 6 mg PO BEDTIME PRN PRN Reason: Insomnia Meropenem (Meropenem 500 Mg Vial) 500 mg IVPUSH Q12H [facility] Last Admin: 03/30/24 23:01 Dose: 500 mg Documented By: ANTOIC Metoprolol Tartrate (Metoprolol Tartrate 12.5 Mg Halftab) 12.5 mg PO Q6H [facility]; Protocol Last Admin: 03/31/24 10:16 Dose: 12.5 mg Documented By: DEISY Ondansetron HCl (Ondansetron Hcl 4 Mg/2 Ml Vial) 4 mg IVPUSH Q8H PRN PRN Reason: Nausea and Vomiting Pantoprazole Sodium (Pantoprazole Sodium 40 Mg/10 Ml Vial) 40 mg IVPUSH BID@0630,1630 [facility] Last Admin: 03/31/24 05:05 Dose: 40 mg Documented By: JOANNOIC Vancomycin HCl (Vancomycin Hcl 125 Mg Capsule) 250 mg PO Q6H [facility] Last Admin: 03/31/24 10:16 Dose: 250 mg Documented By: MIGUELITOAV Labs 03/31/24 06:24 03/30/24 04:10 Labs: Laboratory Results - last 24 hr 03/29/24 03/30/24 03/31/24 09:36 18:21 06:24 MCV 97.5 97.9 MCH 33.3 H 32.4 MCHC 34.2 33.1 RDW 21.3 H 21.2 H Plt Count 18 L* 23 L D MPV 11.4 13.9 H Absolute Nucleated RBC 0.000 0.000 Nucleated RBC % (auto) 0.0 0.0 Blood Type A Positive Antibody Screen NEGATIVE Crossmatch See Detail Microbiology Microbiology Results: Microbiology 03/26/24 11:10 Blood Culture - Preliminary Blood - Central Line Gram negative ramesh 03/26/24 11:30 Blood Culture - Final Blood - Central Line Klebsiella oxytoca 03/28/24 10:07 Blood Culture - Preliminary Blood - Central Line No growth after 48 hours. 03/28/24 10:07 Blood Culture - Preliminary Blood - Central Line No growth after 48 hours. 03/25/24 03:02 Blood Culture - Final Blood - Venous Klebsiella oxytoca Assessment and Plan (1) Septic shock: Status: Acute (2) C. difficile colitis: Status: Acute (3) Acute blood loss anemia: Status: Acute Plan 78-year-old male with history of ESRD on HD MWF, colorectal cancer status post low anterior resection with diverting loop ileostomy and reversal at [facility], recurrent c diff, chronic R hydonephrosis, and atrial fibrillation on Eliquis who presents to the emergency department on 03/25/24 with persistent diarrhea 3-4x/day with associated weakness, was transfered to ICU on same day due to shock/hypotension, hospital course complicated by bacteremia and GIB with acute blood loss anemia Diarrhea, h/o Cdif, negative Cdif this time. Po Vancomycin 125 mg qid while on antibiotics and 48 h after and then 125 m,w,fri per ID recommendation Shock/hypotension, was on pressors in icu, resolved. 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 will transfusion with dialysis tomorrow Thrombocytopenia, acute on chronic, hematology consult End-stage renal disease on HD MWF Acute Lactic acidosis - likely secondary to dehydration and ESRD Chronic Atrial fibrillation, Hold eliquis in light of recent gib and low platlets will ask GI and profound anemia, requireing multiple transfusion ask gi when to restart. restarted amio and metoprolol at lower dose given lower bps, Full code VTE prophylaxis: scd Quality Stroke Does the patient have a stroke diagnosis?: No VTE Prior VTE?: No VTE Risk Level:: Medical - moderate - high VTE Device Contraindication: Treatment Not Indicated VTE Drug Contraindication: N/A - Med Ordered
--- NOTE | 2024-03-31 14:17 | MHC.CLN ---
F/U DIET=2 GRAM SODIUM, LOW POTASSIUM, LOW PHOSPHORUS. PATIENT WITH ESRD ON HEMODIALYSIS. SKIN WITH STAGE II TO COCCYX. INTAKE VARIABLE WITH MOST MEALS 50% OR LESS. ADDING ENSURE CLEAR TID TO PROMOTE WOUND HEALING AND PO INTAKE. SUPPLEMENT PROVIDES 720 KCLS, 24 G PROTEIN. FOLLOW FOR PO INTAKE AND SKIN INTEGRITY.
--- NOTE | 2024-03-31 14:38 | P.PNGI_ITS ---
Subjective Subjective Date of Service: 03/31/24 Interval History: hgb stable but plt remain v low no adbo pain no melena per r/n, stool more jelly like no nausea or vomiting Critical Care Time (minutes): 0 Physical Exam 2 Vital Signs: Vital Signs: Last Vital Signs Temp 99.4 F 03/31/24 13:25 Pulse 110 H 03/31/24 13:25 Resp 16 03/31/24 13:25 BP 114/73 03/31/24 13:25 Pulse Ox 94 03/31/24 07:19 O2 Del Method Room Air 03/31/24 07:19 O2 Flow Rate 2.5 03/30/24 12:00 BMI result Body Mass Index 25.1 EXAM: GENERAL: The patient is frail VITAL SIGNS:see workflow HEENT: Nonicteric sclerae, PERRLA, EOMI. Oropharynx clear. Moist mucous membranes. Conjunctivae appear well perfused. No thyroid mass. CHEST: Chest wall is nontender. HEART: Regular rate and rhythm without murmurs. LUNGS: Clear to auscultation bilaterally. ABDOMEN: Soft, positive bowel sounds, nontender, no organomegaly.no flank tenderness SKIN: No rash, no excessive bruising, petechiae, or purpura. NEUROLOGIC: Cranial nerves II-XII intact without motor/sensory deficit. Psych: normal affect Objective Data Labs 03/31/24 06:24 03/30/24 04:10 Labs: Laboratory Results - last 24 hr 03/29/24 03/30/24 03/31/24 09:36 18:21 06:24 WBC 7.6 7.2 RBC 2.40 L 2.41 L Hgb 8.0 L 7.8 L Hct 23.4 L 23.6 L MCV 97.5 97.9 MCH 33.3 H 32.4 MCHC 34.2 33.1 RDW 21.3 H 21.2 H Plt Count 18 L* 23 L D MPV 11.4 13.9 H Absolute Nucleated RBC 0.000 0.000 Nucleated RBC % (auto) 0.0 0.0 Blood Type A Positive Antibody Screen NEGATIVE Crossmatch See Detail Microbiology Microbiology Results: Microbiology 03/26/24 11:10 Blood - Central Line Blood Culture - Preliminary Gram negative ramesh 03/26/24 11:30 Blood - Central Line Blood Culture - Final Klebsiella oxytoca 03/28/24 10:07 Blood - Central Line Blood Culture - Preliminary No growth after 48 hours. 03/28/24 10:07 Blood - Central Line Blood Culture - Preliminary No growth after 48 hours. 03/25/24 03:02 Blood - Venous Blood Culture - Final Klebsiella oxytoca 03/25/24 03:16 Blood - Venous Blood Culture - Final Klebsiella oxytoca Procedures Date of Service Date of Service: 03/31/24 Progress Note: A&P Assessment and plan (1) Acute blood loss anemia: Status: Acute Plan 1/ [facility] seems to have [facility]ablized but plts are very low ? drug mediated PLAN: 1/ cont with ppi and carafate 2/ consider heme consult for low plts and check folate and b12 3/ if h pylori pos on bx treat Time Spent With Patient Time: Total time managing care of this patient today ____ minutes. Quality Stroke Does the patient have a stroke diagnosis?: No VTE Prior VTE?: No VTE Risk Level:: Medical - moderate - high VTE Device Contraindication: Treatment Not Indicated VTE Drug Contraindication: N/A - Med Ordered
--- NOTE | 2024-03-31 15:59 | PM.PNNEP ---
Subjective Subjective Date of Service: 03/31/24 Interval history: seen and examined on HD no complaints Physical Exam Vital Signs: Vital Signs: Last Vital Signs Temp 99.4 F 03/31/24 13:25 Pulse 110 H 03/31/24 13:25 Resp 16 03/31/24 13:25 BP 114/73 03/31/24 13:25 Pulse Ox 94 03/31/24 07:19 O2 Del Method Room Air 03/31/24 07:19 O2 Flow Rate 2.5 03/30/24 12:00 BMI result Body Mass Index 25.1 Const: General: alert and awake Neck: Neck: Yes supple Resp: Auscultation: clear to auscultation bilaterally Cardio: Heart sounds: S1 normal heart sound present and S2 normal heart sound present GI: Palpation (GI): Soft to palpation and nontender Extrem: General: Yes no pedal edema Objective Data Labs 03/31/24 06:24 03/30/24 04:10 Labs: Laboratory Results - last 24 hr 03/29/24 03/30/24 03/31/24 09:36 18:21 06:24 WBC 7.6 7.2 RBC 2.40 L 2.41 L Hgb 8.0 L 7.8 L Hct 23.4 L 23.6 L MCV 97.5 97.9 MCH 33.3 H 32.4 MCHC 34.2 33.1 RDW 21.3 H 21.2 H Plt Count 18 L* 23 L D MPV 11.4 13.9 H Absolute Nucleated RBC 0.000 0.000 Nucleated RBC % (auto) 0.0 0.0 Blood Type A Positive Antibody Screen NEGATIVE Crossmatch See Detail Microbiology Microbiology Results: Microbiology 03/26/24 11:10 Blood - Central Line Blood Culture - Preliminary Gram negative ramesh 03/26/24 11:30 Blood - Central Line Blood Culture - Final Klebsiella oxytoca 03/28/24 10:07 Blood - Central Line Blood Culture - Preliminary No growth after 48 hours. 03/28/24 10:07 Blood - Central Line Blood Culture - Preliminary No growth after 48 hours. 03/25/24 03:02 Blood - Venous Blood Culture - Final Klebsiella oxytoca 03/25/24 03:16 Blood - Venous Blood Culture - Final Klebsiella oxytoca Procedures Date of Service Date of Service: 03/31/24 Assessment & Plan Assessment and plan (1) End stage renal disease: Status: Acute (2) Anemia: Status: Inactive Plan known ESRD on HD at [facility] via PC admitted with septic shock Klebsiella bacteremia nephrogenic anemia REC HD today UF as tolerated renal diet P binder PATTI Abx per primary team Time Spent With Patient Time: Total time managing care of this patient today ____ minutes. Progress Note: Quality Stroke Does the patient have a stroke diagnosis?: No
[2024-03-31] MEDS: Meropenem 500 MG VIAL IVPUSH (18:04)
[2024-03-31] MEDS: Metoprolol Tartrate 25 MG TABLET PO ×2 (18:05→21:41)
--- NOTE | 2024-03-31 19:03 | HO.SKINPHOTO ---
Location: Category: Stage: Length: Width: Depth: cm Location: Category: Stage: Length: Width: Depth: cm Location: Category: Stage: Length: Width: Depth: cm Location: Category: Stage: Length: Width: Depth: cm Location: Category: Stage: Length: Width: Depth: cm Location: Category: Stage: Length: Width: Depth: triad cream and foam dressing
[2024-03-31] MEDS: dilTIAZem HCL 125 MG in 0.9 % Sodium Chloride 100 ML IVCONT (19:27)
[2024-04-01] VITALS (10 sets, daily range): BP systolic 96–132; BP diastolic 53–73; PULSE 69–140; RESP 17–19; TEMP 36.6–36.8; O2SAT 93–96
[2024-04-01] MEDS: Metoprolol Tartrate 25 MG TABLET PO ×2 (04:18→23:26)
[2024-04-01] MEDS: vancomycin HCL 125 MG CAPSULE 250 MG PO ×3 (04:18→21:04)
[2024-04-01] MEDS: Pantoprazole Sodium 40 MG/10 ML VIAL IVPUSH (06:27)
[2024-04-01 06:57] LABS: Hematocrit 27.2 % (42.0-52.0); Mean Corpuscular HGB Conc 33.1 g/dl (31.0-36.0); Mean Corpuscular Hemoglobin 32.1 pg (27.0-33.0); Mean Corpuscular Volume 97.1 fL (80.0-98.0); Red Cell Distribution Width 21.6 % (11.0-16.0); White Blood Count 6.1 X10*3/uL (4.8-10.8)
[2024-04-01 06:58] LABS: Platelet Count 24 X10*3/uL (160-400)
--- NOTE | 2024-04-01 08:20 | P.PNIM_ITS ---
Subjective Subjective Date of Service: 04/01/24 Interval History: gib thrombocytopenia afib rvr Review of Systems says feeling somewhat improving has intermittent diarrhae hr this morning runnin 100-120 Physical Exam 2 Vital Signs: Vital Signs: Last Vital Signs Temp 97.8 F 04/01/24 08:00 Pulse 69 04/01/24 08:00 Resp 18 04/01/24 08:00 BP 132/64 04/01/24 08:00 Pulse Ox 95 04/01/24 08:00 O2 Del Method Room Air 04/01/24 08:00 O2 Flow Rate 2.5 03/30/24 12:00 BMI result Body Mass Index 25.1 General: AO X 3, no acute distress Resp: CTA bilateral CVS: S1,S2,RRR GI: +BS, NT, no distention Skin: No rash Neuro: motor grossly intact Psych: appropriate affect Objective Data Active Medications Acetaminophen (Acetaminophen 325 Mg Tablet) 650 mg PO Q6H PRN PRN Reason: Pain, Mild 1-3,fever,headache Last Admin: 03/30/24 15:49 Dose: 650 mg Documented By: LEAH Amiodarone HCl (Amiodarone Hcl 200 Mg Tablet) 200 mg PO DAILY [facility] Last Admin: 03/31/24 10:16 Dose: 200 mg Documented By: DEISY Ascorbic Acid (Ascorbic Acid 250 Mg Tablet) 250 mg PO BID [facility] Last Admin: 03/31/24 21:41 Dose: 250 mg Documented By: DEISY Ferrous Sulfate (Ferrous Sulfate 324 Mg Tablet.) 324 mg PO BID [facility] Last Admin: 03/31/24 21:41 Dose: 324 mg Documented By: DEISY Hydromorphone HCl (Hydromorphone Hcl 0.5 Mg/0.5 Ml Syringe) 0.5 mg IVPUSH Q4H PRN; Protocol PRN Reason: Pain, Moderate(Pain Scale 4-6) Diltiazem HCl 125 mg/ Sodium (Chloride) 125 mls @ 0 mls/hr IVCONT .Q0M [facility]; Protocol Last Titration: 04/01/24 01:55 Dose: 0 mg/hr, 0 mls/hr Documented By: SALRADHA Melatonin (Melatonin 3 Mg Tablet) 6 mg PO BEDTIME PRN PRN Reason: Insomnia Meropenem (Meropenem 500 Mg Vial) 500 mg IVPUSH Q12H [facility] Last Admin: 04/01/24 06:31 Dose: Not Given Documented By: GWENDOLYN Non-Admin Reason: To be administered prior to dialysis Metoprolol Tartrate (Metoprolol Tartrate 25 Mg Tablet) 25 mg PO Q6H [facility]; Protocol Last Admin: 04/01/24 04:18 Dose: 25 mg Documented By: GWENDOLYN Ondansetron HCl (Ondansetron Hcl 4 Mg/2 Ml Vial) 4 mg IVPUSH Q8H PRN PRN Reason: Nausea and Vomiting Pantoprazole Sodium (Pantoprazole Sodium 40 Mg/10 Ml Vial) 40 mg IVPUSH BID@0630,1630 [facility] Last Admin: 04/01/24 06:27 Dose: 40 mg Documented By: GWENDOLYN Vancomycin HCl (Vancomycin Hcl 125 Mg Capsule) 250 mg PO Q6H [facility] Last Admin: 04/01/24 04:18 Dose: 250 mg Documented By: GWENDOLYN Labs 04/01/24 06:03 03/30/24 04:10 Labs: Laboratory Results - last 24 hr 03/29/24 04/01/24 09:36 06:03 MCV 97.1 MCH 32.1 MCHC 33.1 RDW 21.6 H Plt Count 24 L MPV TNP Absolute Nucleated RBC 0.000 Nucleated RBC % (auto) 0.0 Blood Type A Positive Antibody Screen NEGATIVE Crossmatch See Detail Microbiology Microbiology Results: Microbiology 03/28/24 10:07 Blood Culture - Preliminary Blood - Central Line Prelim: GNR Gram Stain only 03/26/24 11:10 Blood Culture - Preliminary Blood - Central Line Gram negative ramesh 03/26/24 11:30 Blood Culture - Final Blood - Central Line Klebsiella oxytoca Assessment and Plan (1) Acute blood loss anemia: Status: Acute Assessment and Plan: 78-year-old male with history of ESRD on HD MWF, colorectal cancer status post low anterior resection with diverting loop ileostomy and reversal at [facility], recurrent c diff, chronic R hydonephrosis, and atrial fibrillation on Eliquis who presents to the emergency department on 03/25/24 with persistent diarrhea 3-4x/day with associated weakness, was transfered to ICU on same day due to shock/hypotension, hospital course complicated by bacteremia and GIB with acute blood loss anemia Diarrhea, h/o Cdif, negative Cdif this time. Po Vancomycin 125 mg qid while on antibiotics and 48 h after and then 125 m,w,sun per ID recommendation Shock/hypotension, was on pressors in icu, resolved. 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 GI bleeding acute blood loss anemia s/p 2 units of RBC, transfuse 1 unit today during dialysis S/p EGD on 03/29 with finding of gastritis duodenitis candidal esophagitis-added fluconazole(d/w GI). 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 will transfusion with dialysis tomorrow Thrombocytopenia, acute on chronic, hematology consult End-stage renal disease on HD MWF Acute Lactic acidosis- likely secondary to dehydration and ESRD Chronic Atrial fibrillation, Hold eliquis in light of recent gib and low platlets will ask GI and profound anemia, requireing multiple transfusion hr flactautes ask gi when to restart. restarted amio and metoprolol prn ,add cardizem if bp allows , bp is lower side also. Full code VTE prophylaxis: scd Quality Stroke Does the patient have a stroke diagnosis?: No VTE Prior VTE?: No VTE Risk Level:: Medical - moderate - high VTE Device Contraindication: Treatment Not Indicated VTE Drug Contraindication: N/A - Med Ordered
--- NOTE | 2024-04-01 08:56 | P.PNGI_ITS ---
Subjective Subjective Date of Service: 04/01/24 Interval History: no more melena, HGB incremented appropriately with 1 unit blood no abdo pain plts still low ongoing issues with diarrhea Critical Care Time (minutes): 0 Physical Exam 2 Vital Signs: Vital Signs: Last Vital Signs Temp 97.8 F 04/01/24 08:00 Pulse 69 04/01/24 08:00 Resp 18 04/01/24 08:00 BP 132/64 04/01/24 08:00 Pulse Ox 95 04/01/24 08:00 O2 Del Method Room Air 04/01/24 08:00 O2 Flow Rate 2.5 03/30/24 12:00 BMI result Body Mass Index 25.1 EXAM: GENERAL: The patient is frail VITAL SIGNS:see workflow HEENT: Nonicteric sclerae, PERRLA, EOMI. Oropharynx clear. Moist mucous membranes. Conjunctivae appear well perfused. No thyroid mass. CHEST: Chest wall is nontender. HEART: Regular rate and rhythm without murmurs. LUNGS: Clear to auscultation bilaterally. ABDOMEN: Soft, positive bowel sounds, nontender, no organomegaly.no flank tenderness SKIN: No rash, no excessive bruising, petechiae, or purpura. NEUROLOGIC: Cranial nerves II-XII intact without motor/sensory deficit. Psych: normal affect Objective Data Labs 04/01/24 06:03 03/30/24 04:10 Labs: Laboratory Results - last 24 hr 03/29/24 04/01/24 09:36 06:03 WBC 6.1 RBC 2.80 L Hgb 9.0 L Hct 27.2 L MCV 97.1 MCH 32.1 MCHC 33.1 RDW 21.6 H Plt Count 24 L MPV TNP Absolute Nucleated RBC 0.000 Nucleated RBC % (auto) 0.0 Blood Type A Positive Antibody Screen NEGATIVE Crossmatch See Detail Microbiology Microbiology Results: Microbiology 03/26/24 11:10 Blood - Central Line Blood Culture - Final Klebsiella oxytoca 03/28/24 10:07 Blood - Central Line Blood Culture - Preliminary Prelim: GNR Gram Stain only 03/26/24 11:30 Blood - Central Line Blood Culture - Final Klebsiella oxytoca 03/28/24 10:07 Blood - Central Line Blood Culture - Preliminary No growth after 48 hours. 03/25/24 03:02 Blood - Venous Blood Culture - Final Klebsiella oxytoca 03/25/24 03:16 Blood - Venous Blood Culture - Final Klebsiella oxytoca Procedures Date of Service Date of Service: 04/01/24 Progress Note: A&P Assessment and plan (1) Acute blood loss anemia: Status: Acute Plan 1/ Acute blood loss anemia, possibly from dieulafoy and thrombocytopenia with anemai of chronic disease from CKD PLAN: 1/ cont PPI and carafate 2/ add cholestyramine and see if helps diarrhea 3/ check b12 and folate for low plts, consider hematology consult Time Spent With Patient Time: Total time managing care of this patient today ____ minutes. Quality Stroke Does the patient have a stroke diagnosis?: No VTE Prior VTE?: No VTE Risk Level:: Medical - moderate - high VTE Device Contraindication: Treatment Not Indicated VTE Drug Contraindication: N/A - Med Ordered
--- NOTE | 2024-04-01 09:38 | PM.CNCAR ---
History of Present Illness History of Present Illness Date of Service: 04/01/24 Chief complaint: Diarrhea Narrative: This is a cardiology consultation regarding atrial fibrillation with rapid ventricular response. Per discussion with hospitalist team as well as reviewing last notes, patient has colorectal cancer status post surgery for the same at [facility], recurrent C diff infection, atrial fibrillation, pacemaker, ICU admission for shock/hypotension, course complicated by bacteremia, GI bleed, anemia. Currently, we have been asked to comment on atrial fibrillation. He was on atrial fibrillation for the last couple of days on telemetry but currently in sinus rhythm. Last seen in clinic in October. That time, he was on amiodarone, diltiazem/metoprolol and on Eliquis. However, he has had many inpatient stays after that and hence likely many med changes. Currently, patient denies any cardiac symptoms like angina or shortness of breath or palpitations. He states he feels okay. Lying down in bed. Review of Systems Review of Systems: Yes all other systems are reviewed and are negative Constitutional: Constitutional: Reports as per HPI and Reports no additional constitutional complaints Eyes: Eyes: Reports as per HPI and Denies no additional eye complaints ENT: Denies system reviewed and no additional complaints, except as documented and Reports as per HPI Cardiovascular: Cardiovascular: Reports as per HPI, Reports no additional cardiovascular complaints, Denies acrocyanosis, Denies cool extremities, Denies chest pain, Denies leg edema, Denies lightheadedness, Denies palpitations and Denies dyspnea Respiratory: Respiratory: Reports as per HPI, Denies no additional respiratory complaints and Denies dyspnea Gastrointestinal: Gastrointestinal: Reports as per HPI and Denies no additional gastrointestinal complaints Genitourinary: Genitourinary: Reports no additional male genitourinary complaints and Reports as per HPI Musculoskeletal: Musculoskeletal: Reports no additional musculoskeletal complaints and Reports as per HPI Integumentary/Breasts: Skin/Breast: Reports system reviewed and no additional complaints, except as docu Neurologic: Reports system reviewed and no additional complaints, except as documented and Reports as per HPI Psychiatric: Psychiatric: Reports no additional psychiatric complaints and Reports as per HPI Endocrine: Endocrine: Reports no additional endocrine complaints, Reports as per HPI and Denies palpitations Hematologic/Lymphatic: Hematologic/Lymphatic: Reports no additional hematologic/lymphatic complaints and Reports as per HPI Allergic/Immunologic: Allergic/Immunologic: Reports no additional allergic/immunologic complaints and Reports as per HPI PMFSH Past Medical History Medical History Recto-vesical fistula End stage renal disease Sick sinus syndrome Postoperative hematoma involving digestive system following digestive system procedure Aftercare following left shoulder joint replacement surgery Pacemaker OA (osteoarthritis) Borderline hyperlipidemia Obesity HTN (hypertension) EtOH dependence Mild cognitive impairment Inhibited sex excitement Atrial fibrillation Cancer of kidney High cholesterol Hypertension Family History Family History Mother Heart problem Family history: reviewed and not pertinent Social History Social History Household Members: Significant Other Housing: House Do you presently have visiting nurse or other home services: No Alcohol intake: former Comment: refusing alarms Patient Tobacco Use Status: Former Tobacco user Tobacco use type: Cigarette e-Cigarette/Vaping Use: Never Used Advance Directives Date on File: 11/29/22 service: Yes Meds Allergies Allergy/AdvReac Type Severity Reaction Status Date / Time No Known Allergies [NKA] Allergy Mild NOT Verified 03/25/24 03:29 APPLICABLE Active Medications: Current Medications Acetaminophen (Acetaminophen 325 Mg Tablet) 650 mg PO Q6H PRN PRN Reason: Pain, Mild 1-3,fever,headache Last Admin: 03/30/24 15:49 Dose: 650 mg Amiodarone HCl (Amiodarone Hcl 200 Mg Tablet) 200 mg PO DAILY [facility] Last Admin: 03/31/24 10:16 Dose: 200 mg Ascorbic Acid (Ascorbic Acid 250 Mg Tablet) 250 mg PO BID [facility] Last Admin: 03/31/24 21:41 Dose: 250 mg Ferrous Sulfate (Ferrous Sulfate 324 Mg Tablet.Dr) 324 mg PO BID [facility] Last Admin: 03/31/24 21:41 Dose: 324 mg Hydromorphone HCl (Hydromorphone Hcl 0.5 Mg/0.5 Ml Syringe) 0.5 mg IVPUSH Q4H PRN; Protocol PRN Reason: Pain, Moderate(Pain Scale 4-6) Diltiazem HCl 125 mg/ Sodium (Chloride) 125 mls @ 0 mls/hr IVCONT .Q0M [facility]; Protocol Last Titration: 04/01/24 01:55 Dose: 0 mg/hr, 0 mls/hr Melatonin (Melatonin 3 Mg Tablet) 6 mg PO BEDTIME PRN PRN Reason: Insomnia Meropenem (Meropenem 500 Mg Vial) 500 mg IVPUSH Q12H [facility] Last Admin: 04/01/24 06:31 Dose: Not Given Metoprolol Tartrate (Metoprolol Tartrate 25 Mg Tablet) 25 mg PO Q6H [facility]; Protocol Last Admin: 04/01/24 04:18 Dose: 25 mg Ondansetron HCl (Ondansetron Hcl 4 Mg/2 Ml Vial) 4 mg IVPUSH Q8H PRN PRN Reason: Nausea and Vomiting Pantoprazole Sodium (Pantoprazole Sodium 40 Mg/10 Ml Vial) 40 mg IVPUSH BID@0630,1630 [facility] Last Admin: 04/01/24 06:27 Dose: 40 mg Vancomycin HCl (Vancomycin Hcl 125 Mg Capsule) 250 mg PO Q6H [facility] Last Admin: 04/01/24 04:18 Dose: 250 mg Home Medications ?Medication ?Instructions ?Recorded ?Confirmed ?Last Taken ?Type clindamycin phosphate 1 % lotion 1 appl topical BID PRN Acne 03/08/24 03/25/24 Unknown History clobetasol 0.05 % topical cream 1 appl topical BID PRN itching/rash 03/08/24 03/25/24 Unknown History diltiazem HCl 240 mg 240 mg PO DAILY 03/08/24 03/25/24 Unknown History capsule,extended release 24 hr, controlled (DILT-XR) lisinopril 5 mg tablet 5 mg PO DAILY 03/08/24 03/25/24 Unknown History pramoxine 1 % lotion 1 appl topical BID PRN Itching 03/08/24 03/25/24 Unknown History Physical Exam Vital Signs: Vital Signs: Last Vital Signs Temp 97.8 F 04/01/24 08:00 Pulse 69 04/01/24 08:00 Resp 18 04/01/24 08:00 BP 132/64 04/01/24 08:00 Pulse Ox 95 04/01/24 08:00 O2 Del Method Room Air 04/01/24 08:00 O2 Flow Rate 2.5 03/30/24 12:00 BMI result Body Mass Index 25.1 Const: General: comfortable and no acute distress Orientation/consciousness: patient oriented x3 HEENT: Other: Unremarkable Head: Yes normal to inspection Neck: Neck: Yes normal visual inspection Chest: Chest palpation & inspection: normal inspection of the chest Resp: Auscultation: clear to auscultation bilaterally Cardio: Palpation: normal PMI Heart sounds: S1 normal heart sound present, S2 normal heart sound present, no gallops, no murmurs and no rubs GI: Palpation (GI): Soft to palpation Back/Spine/Pelvis: Other: unremarkable Skin: General skin exam: no rashes or lesions noted Neuro: General: patient oriented x3 Extrem: General: Yes normal to inspection Psych: Mental Status: mental status grossly normal Objective Labs and Meds 04/01/24 06:03 03/30/24 04:10 Lab results: Laboratory Results - last 24 hr 03/29/24 04/01/24 09:36 06:03 WBC 6.1 RBC 2.80 L Hgb 9.0 L Hct 27.2 L MCV 97.1 MCH 32.1 MCHC 33.1 RDW 21.6 H Plt Count 24 L MPV TNP Absolute Nucleated RBC 0.000 Nucleated RBC % (auto) 0.0 Blood Type A Positive Antibody Screen NEGATIVE Crossmatch See Detail ECG Interpretation: EKG from 25 of March shows atrial paced rhythm at 60/Min. Can not exclude old inferior infarct. Minimal criteria for LVH. On review of telemetry for the last 48 hours, episodes of atrial fibrillation but currently he is in sinus rhythm. Assessment and Plan (1) Atrial fibrillation with rapid ventricular response: Status: Acute Plan Overall, patient with many comorbidities, many recent acute issues, having atrial fibrillation with rapid rate, most likely due to the acute illnesses. Last echocardiogram in November with LVEF of 50-55%. Currently, he is in sinus rhythm. Medical regimen at home includes amiodarone, diltiazem and metoprolol. We can keep him on the same regimen at the same doses. Due to GI bleed issues, not on Eliquis. Also, platelet count is quite low and today's platelet count is 24. Unlikely that he will be able to take Eliquis in the foreseeable future. Discussed with Dr. Sapp. Procedures Date of Service Date of Service: 04/01/24
[2024-04-01] MEDS: Ascorbic Acid 250 MG TABLET PO ×2 (10:22→21:04)
[2024-04-01] MEDS: Amiodarone HCL 200 MG TABLET PO (10:22)
[2024-04-01] MEDS: Ferrous Sulfate 324 MG TABLET.DR PO ×2 (10:23→21:04)
--- NOTE | 2024-04-01 10:25 | MHC.CM.PN ---
Per rounds, pt. requires ongoing treatment for Anemia, and cardiology consult. Pt. is active with [facility], CM will follow for DC needs.
[2024-04-01] MEDS: dilTIAZem HCL 30 MG TABLET PO (13:04)
[2024-04-01] MEDS: Meropenem 500 MG VIAL IVPUSH (18:39)
[2024-04-01] MEDS: Cholestyramine (With Sugar) 4 GM POWD.PACK 2 GM PO (18:39)
[2024-04-02] VITALS (12 sets, daily range): BP systolic 103–126; BP diastolic 55–69; PULSE 64–74; RESP 13–20; TEMP 36.4–36.8; O2SAT 91–98
--- NOTE | 2024-04-02 00:22 | P.PNID_ITS ---
Subjective Subjective Date of Service: 04/01/24 Critical Care Time (minutes): 15 Comment: He still has gram negative bacteremia. He has Klebsiella oxytoca 03/25,03/26,03/28 Objective Data Labs 04/01/24 06:03 03/30/24 04:10 Labs: Laboratory Results - last 24 hr 04/01/24 06:03 WBC 6.1 RBC 2.80 L Hgb 9.0 L Hct 27.2 L MCV 97.1 MCH 32.1 MCHC 33.1 RDW 21.6 H Plt Count 24 L MPV TNP Absolute Nucleated RBC 0.000 Nucleated RBC % (auto) 0.0 Microbiology Microbiology Results: Microbiology 03/28/24 10:07 Blood - Central Line Blood Culture - Preliminary Gram negative ramesh 03/26/24 11:10 Blood - Central Line Blood Culture - Final Klebsiella oxytoca 03/26/24 11:30 Blood - Central Line Blood Culture - Final Klebsiella oxytoca 03/28/24 10:07 Blood - Central Line Blood Culture - Preliminary No growth after 48 hours. 03/25/24 03:02 Blood - Venous Blood Culture - Final Klebsiella oxytoca 03/25/24 03:16 Blood - Venous Blood Culture - Final Klebsiella oxytoca Physical Exam 2 Vital Signs: Vital Signs: Last Vital Signs Temp 98.0 F 04/01/24 23:51 Pulse 115 H 04/01/24 23:23 Resp 17 04/01/24 23:23 BP 109/64 04/01/24 23:23 Pulse Ox 94 04/01/24 23:23 O2 Del Method Room Air 04/01/24 23:23 O2 Flow Rate 2.5 03/30/24 12:00 BMI result Body Mass Index 25.1 Const: General: cooperative HEENT: Head: Yes normal to inspection Face and sinus: Yes normal facial exam Mouth: Normal oral and palatal mucosa present Teeth and gingiva: d entition normal Eyes: General: appearance normal, both eyes and all related structures P upils: Equal, round and reactive pupils present Resp: Effort & Inspection: normal respiratory effort Cardio: Rate: regular rate Rhythm: regular rhythm GI: Other: slight fullness abdomen Palpation (GI): Soft to palpation and nontender : General: Yes no CVA tenderness Back/Spine/Pelvis: Back: no CVA tenderness Skin: General skin exam: no rashes or lesions noted Neuro: General: moves all extremities Cranial nerves: Yes Equal, round and reactive pupils present Extrem: General: Yes normal to inspection Psych: Appearance: grossly normal Assessment and Plan Assessment and plan (1) Septic shock: Problem details: persistent bacteremia Status: Acute Assessment and Plan: would tap and culture effusion left lung. Surgery eval abdomen?SBO.not able to get CT with contrast due to renal failure Could try lock therapy per pharmacy on dialysis line before any removal considered. Continue Merem for now. Time Spent With Patient Time: Total time managing care of this patient today ____ minutes.
[2024-04-02] MEDS: Metoprolol Tartrate 25 MG TABLET PO ×3 (04:08→21:41)
[2024-04-02] MEDS: vancomycin HCL 125 MG CAPSULE 250 MG PO ×4 (04:08→21:41)
[2024-04-02] MEDS: Meropenem 500 MG VIAL IVPUSH ×2 (05:11→16:59)
[2024-04-02] MEDS: Pantoprazole Sodium 40 MG/10 ML VIAL IVPUSH (05:12)
--- NOTE | 2024-04-02 05:39 | PM.HEMONCCN ---
Subjective - Subjective Chief complaint: Weakness Patient: known to practice within the last 3 years Consult date: 04/02/24 Requesting Physician: Dr. Sapp Primary Care Provider: Anabelle Duncan Customer Service Administrator Utilized?: No - Filipino Speaking HPI - Consult Narrative Reason for consult: Pancytopenia Narrative: Mehran Samuel is a 78 year old male with history of colorectal cancer, status post bladder resection, diverting loop ileostomy with subsequent reversal at [facility], end-stage renal disease on hemodialysis, atrial fibrillation and hypertension who has been admitted for several day history of nausea, vomiting and diarrhea. He was found to be hypotensive and therefore admitted to hospitalist Service. He has had multiple admissions for similar complaints in the last year. Abdominal imaging revealed multiple loops of small bowel dilation with no definite high-grade transition point. Proctitis, moderate right-sided hydroureteronephrosis which was unchanged. Patient has chronic normocytic anemia. He has developed new thrombocytopenia. Review of Systems - Constitutional Reports as per HPI - Neurologic Reports no additional neurologic complaints, Reports as per HPI, Denies hearing normal, Denies abnormal movements, Denies behavioral changes, Denies confusion, Denies headache(s) [facility] Medical History: Medical History (Last Reviewed 03/26/24 @ 16:47 by Marily German MD) Aftercare following left shoulder joint replacement surgery Atrial fibrillation Borderline hyperlipidemia Cancer of kidney End stage renal disease EtOH dependence High cholesterol HTN (hypertension) Hypertension Inhibited sex excitement Mild cognitive impairment OA (osteoarthritis) Obesity Pacemaker Postoperative hematoma involving digestive system following digestive system procedure Recto-vesical fistula Sick sinus syndrome Family History: Family History (Last Reviewed 03/26/24 @ 16:47 by Marily German MD) Mother Heart problem Family history: reviewed and not pertinent Social History: Social History (Last Reviewed 03/26/24 @ 16:47 by Marily German MD) Living Situation History: Household Members: Significant Other Housing: House Do you presently have visiting nurse or other home services: No Tobacco History: Patient Tobacco Use Status: Former Tobacco user Tobacco use type: Cigarette e-Cigarette/Vaping Use: Never Used Advance Directives: Advance Directives Date on File: 11/29/22 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 Home Medications and Allergies Current Medications: Current Medications Acetaminophen (Acetaminophen 325 Mg Tablet) 650 mg PO Q6H PRN PRN Reason: Pain, Mild 1-3,fever,headache Last Admin: 03/30/24 15:49 Dose: 650 mg Amiodarone HCl (Amiodarone Hcl 200 Mg Tablet) 200 mg PO DAILY [facility] Last Admin: 04/01/24 10:22 Dose: 200 mg Ascorbic Acid (Ascorbic Acid 250 Mg Tablet) 250 mg PO BID [facility] Last Admin: 04/01/24 21:04 Dose: 250 mg Cholestyramine Resin (Cholestyramine (With Sugar) 4 Gm Powd.Pack) 2 gm PO BIDWM [facility] Last Admin: 04/01/24 18:39 Dose: 2 gm Ferrous Sulfate (Ferrous Sulfate 324 Mg Tablet.Dr) 324 mg PO BID [facility] Last Admin: 04/01/24 21:04 Dose: 324 mg Fluconazole (Fluconazole 100 Mg Tablet) 100 mg PO DAILY [facility] Last Admin: 04/01/24 12:59 Dose: Not Given Hydromorphone HCl (Hydromorphone Hcl 0.5 Mg/0.5 Ml Syringe) 0.5 mg IVPUSH Q4H PRN; Protocol PRN Reason: Pain, Moderate(Pain Scale 4-6) Melatonin (Melatonin 3 Mg Tablet) 6 mg PO BEDTIME PRN PRN Reason: Insomnia Meropenem (Meropenem 500 Mg Vial) 500 mg IVPUSH Q12H [facility] Last Admin: 04/02/24 05:11 Dose: 500 mg Metoprolol Tartrate (Metoprolol Tartrate 25 Mg Tablet) 25 mg PO Q6H [facility]; Protocol Last Admin: 04/02/24 04:08 Dose: 25 mg Ondansetron HCl (Ondansetron Hcl 4 Mg/2 Ml Vial) 4 mg IVPUSH Q8H PRN PRN Reason: Nausea and Vomiting Pantoprazole Sodium (Pantoprazole Sodium 40 Mg/10 Ml Vial) 40 mg IVPUSH BID@0630,1630 [facility] Last Admin: 04/02/24 05:12 Dose: 40 mg Vancomycin HCl (Vancomycin Hcl 125 Mg Capsule) 250 mg PO Q6H [facility] Last Admin: 04/02/24 04:08 Dose: 250 mg Home Medications ?Medication ?Instructions ?Recorded ?Confirmed ?Type clindamycin phosphate 1 % lotion 1 appl topical BID PRN Acne 03/08/24 03/25/24 History clobetasol 0.05 % topical cream 1 appl topical BID PRN itching/rash 03/08/24 03/25/24 History diltiazem HCl 240 mg 240 mg PO DAILY 03/08/24 03/25/24 History capsule,extended release 24 hr, controlled (DILT-XR) lisinopril 5 mg tablet 5 mg PO DAILY 03/08/24 03/25/24 History pramoxine 1 % lotion 1 appl topical BID PRN Itching 03/08/24 03/25/24 History Allergies Allergy/AdvReac Type Severity Reaction Status Date / Time No Known Allergies [NKA] Allergy Mild NOT Verified 03/25/24 03:29 APPLICABLE Physical Exam Vital signs: Vital Signs Temp 97.5 F 04/02/24 03:35 Pulse 72 04/02/24 03:35 Resp 18 04/02/24 03:35 BP 116/69 04/02/24 03:35 Pulse Ox 95 04/02/24 03:35 O2 Del Method Room Air 04/02/24 03:35 O2 Flow Rate 2.5 03/30/24 12:00 Intake & Output 04/01/24 04/01/24 04/02/24 06:59 18:59 06:59 Intake Total 60.000 / 650.000 360 / 480 120 / 480 Output Total 150 / 150 Balance 60.000 / 550.000 360 / 330 -30 / 330 Urine Output (Average ml/kg/hr) 0.16 Intake: Intake, Oral Amount 0 / 240 360 / 480 120 / 480 Intake, IV Amount 60.000 / 60.000 0 / 0 dilTIAZem HCL 125 mg In 0.9 % 60.000 / 60.000 0 / 0 Sodium Chloride 100 ml @ Per Protocol IVCONT .Q0M [facility] Rx#: [id number] Output: Output, Urine Amount 150 / 150 Other: Meal Refused No Breakfast % Eaten 25% Lunch % Eaten 25% Dinner % Eaten 0% Eating (Feeding) Ability Independent Number of Incontinent Voids 1 Number of Unmeasured Voids 1 2 Number of Bowel Movements 1 6 1 Urine Bathroom Urinal Urine Color Yellow Last Bowel Movement 04/01/24 Stool Bedpan Incontinent Stool Amount Moderate Small Stool Color [place] Mucousy Stool Consistency Loose Gelatinous Weight 77.111 kg - Constitutional Present: no acute distress, chronically ill appearing - Routine HEENT Exam Head: Present: normal inspection Eye: Present: PERRL - Routine Neck Exam Present: supple. Absent: lymphadenopathy - Routine Respiratory Exam Absent: accessory muscle use, wheezes - Routine Cardiovascular Exam Cardiovascular: Present: S1, S2 - Routine Abdominal Exam Present: soft Hem/Onc Consult Result - Labs CBC & Chem 7: 04/02/24 08:03 04/02/24 08:03 Labs: Short CBC 04/01/24 Range/Units 06:03 WBC 6.1 (4.8-10.8) X10*3/uL Hgb 9.0 L (14.0-18.0) g/dl Hct 27.2 L (42.0-52.0) % Plt Count 24 L (160-400) X10*3/uL Assessment and Plan Patient Active problem list reviewed?: Yes (1) Thrombocytopenia Status: Acute Assessment and plan: 1. This is a 78-year-old male with multiple medical problems as cited above including end-stage renal disease on hemodialysis, colorectal cancer, status post LAR who is presenting with recurrent bout of diarrhea associated with nausea and emesis. He was found to have Gram-negative bacteremia, Klebsiella oxytoca. He has been started on meropenem since 03/31/2024. He is on p.o. vancomycin for past history of C diff colitis. He has had GI bleeding causing worsening of his chronic anemia. He is on oral iron supplementation. Continue with transfusion as needed. New onset thrombocytopenia which could be multifactorial. His platelet counts have been low since 03/03/2024. On admission his platelet was around 60 K. Infection, antibiotic use probable cause. LDH is mildly elevated. He has no hematinic deficiencies. No evidence of hemolysis, he has normal bilirubin. Low suspicion for myelophthisic process or DIC. His coagulation profile is normal. His platelets reached a ivan of 17. He received 2 units of platelet transfusion. Counts remain below 50 K. He does not have splenomegaly. Agree with holding Eliquis in view of low platelets as well as anemia. Thanks for the consult, will follow with you. - Time Spent With Patient Time Spent with Patient (in minutes): 20 Additional Coding: - Additional E/M codes Complex E/M visit Add On: CPT G2211
[2024-04-02 08:23] LABS: MANUAL DIFF FLAG NO
[2024-04-02 08:38] LABS: Glucose Random 82 mg/dL (60-115); Total Protein 4.2 g/dL (6.5-8.0)
[2024-04-02 08:41] LABS: Basophils Percent Auto 0.2 % (0-2); Eosinophils Percent Auto 0.6 % (0-4); Hematocrit 24.9 % (42.0-52.0); Hemoglobin 8.3 g/dl (14.0-18.0); Imm Gran Abs Auto 0.07 X10*3/uL (0.00-0.03); Imm Gran Pct Auto 1.4 % (0.0-0.4); Lymphocytes Absolute Auto 0.7 X10*3/uL (1.2-4.9); Lymphocytes Percent Auto 15.2 % (20-40); Mean Corpuscular HGB Conc 33.3 g/dl (31.0-36.0); Mean Corpuscular Hemoglobin 32.2 pg (27.0-33.0); Mean Corpuscular Volume 96.5 fL (80.0-98.0); Mean Platelet Volume 13.9 fL (9.4-12.4); Monocytes Absolute Auto 0.6 X10*3/uL (0.1-1.2); Monocytes Percent Auto 12.1 % (2-11); Neutrophils Absolute Auto 3.4 x10*3/uL (2.0-8.3); Neutrophils Percent Auto 70.5 % (45-73); Red Blood Count 2.58 X10*6/uL (4.60-5.80); Red Cell Distribution Width 21.1 % (11.0-16.0); Retic HGB Equivalent 34.7 pg (30.0-35.0); Reticulocyte Percent 1.3 % (0.5-1.8); Reticulocytes Absolute 0.032 X10*6/uL (0.026-0.095); White Blood Count 4.9 X10*3/uL (4.8-10.8)
[2024-04-02 08:43] LABS: Iron 20 mcg/dL (45-160); Percent Iron Saturation 37 % (15-50); Platelet Count 31 X10*3/uL (160-400); Total Iron Binding Capacity 54 mcg/dL (228-428); Unsaturated Iron Binding 34 ug/dL
[2024-04-02] MEDS: Ascorbic Acid 250 MG TABLET PO ×2 (08:52→21:41)
[2024-04-02] MEDS: Amiodarone HCL 200 MG TABLET PO (08:52)
[2024-04-02] MEDS: Ferrous Sulfate 324 MG TABLET.DR PO ×2 (08:52→21:41)
[2024-04-02] MEDS: Fluconazole 100 MG TABLET PO (08:52)
[2024-04-02] MEDS: Cholestyramine (With Sugar) 4 GM POWD.PACK 2 GM PO ×2 (08:52→16:59)
[2024-04-02 09:04] LABS: Ferritin 876 ng/mL (20-250)
[2024-04-02 09:16] LABS: Folate 5.1 ng/mL (> or = 4.0); Vitamin B12 654 pg/mL (200-900)
[2024-04-02 09:48] LABS: Haptoglobin 34 mg/dL (40-268)
[2024-04-02 09:50] LABS: Lactate Dehydrogenase 355 U/L (118-273); Magnesium 1.8 mg/dL (1.6-2.6)
--- NOTE | 2024-04-02 10:29 | P.PNCA_ITS ---
Subjective Subjective Date of Service: 04/02/24 Interval history: He states that he feels okay. Denies any cardiac symptoms. Review of Systems Review of Systems Yes all other systems are reviewed and are negative Constitutional: Reports as per HPI and Reports no additional constitutional complaints Eyes: Reports as per HPI and Denies no additional eye complaints Denies system reviewed and no additional complaints, except as documented and Reports as per HPI Cardiovascular: Reports as per HPI, Reports no additional cardiovascular complaints, Denies acrocyanosis, Denies cool extremities, Denies chest pain, Denies leg edema, Denies lightheadedness, Denies palpitations and Denies dyspnea Respiratory: Reports as per HPI, Denies no additional respiratory complaints and Denies dyspnea Gastrointestinal: Reports as per HPI and Denies no additional gastrointestinal complaints Genitourinary: Reports no additional male genitourinary complaints and Reports as per HPI Musculoskeletal: Reports no additional musculoskeletal complaints and Reports as per HPI Skin/Breast: Reports system reviewed and no additional complaints, except as docu Reports system reviewed and no additional complaints, except as documented and Reports as per HPI Psychiatric: Reports no additional psychiatric complaints and Reports as per HPI Endocrine: Reports no additional endocrine complaints, Reports as per HPI and Denies palpitations Hematologic/Lymphatic: Reports no additional hematologic/lymphatic complaints and Reports as per HPI Allergic/Immunologic: Reports no additional allergic/immunologic complaints and Reports as per HPI Physical Exam Vital Signs: Last Vital Signs Temp 97.5 F 04/02/24 07:37 Pulse 64 04/02/24 07:37 Resp 14 04/02/24 07:37 BP 105/55 L 04/02/24 07:37 Pulse Ox 94 04/02/24 07:37 O2 Del Method Nasal Cannula 04/02/24 07:37 O2 Flow Rate 2.5 03/30/24 12:00 BMI result Body Mass Index 25.1 Const General: comfortable and no acute distress Orientation/consciousness: patient oriented x3 HEENT Other: Unremarkable Head: Yes normal to inspection Neck Neck: Yes normal visual inspection Chest Chest palpation & inspection: normal inspection of the chest Resp Auscultation: clear to auscultation bilaterally Cardio Palpation: normal PMI Heart sounds: S1 normal heart sound present, S2 normal heart sound present, no gallops, no murmurs and no rubs GI Palpation (GI): Soft to palpation Back/Spine/Pelvis Other: unremarkable Skin General skin exam: no rashes or lesions noted Neuro General: patient oriented x3 Extrem General: Yes normal to inspection Psych Mental Status: mental status grossly normal Objective Labs and Meds 04/02/24 08:03 04/02/24 08:03 Lab results: Laboratory Results - last 24 hr 04/02/24 04/02/24 04/02/24 08:03 08:03 08:03 WBC Cancelled 4.9 RBC Cancelled 2.58 L Hgb Cancelled Hct MCV MCH MCHC RDW Plt Count MPV Immature Gran % (Auto) Neut % (Auto) Lymph % (Auto) [place] % (Auto) Eos % (Auto) Baso % (Auto) Lymph # (Auto) [place] # (Auto) Eos # (Auto) Baso # (Auto) Abs Immat Gran (auto) Absolute Neuts (auto) Absolute Nucleated RBC Nucleated RBC % (auto) Absolute Retic Percent Retic Immature Retic Fraction Retic Hgb Equivalent Random Glucose Haptoglobin Magnesium Iron TIBC % Saturation Unsat Iron Binding Ferritin Lactate Dehydrogenase Total Protein Vitamin B12 Folate 04/02/24 04/02/24 04/02/24 08:03 08:03 08:03 WBC RBC Hgb 8.3 L Hct Cancelled 24.9 L MCV Cancelled 96.5 MCH Cancelled MCHC RDW Plt Count MPV Immature Gran % (Auto) Neut % (Auto) Lymph % (Auto) [place] % (Auto) Eos % (Auto) Baso % (Auto) Lymph # (Auto) [place] # (Auto) Eos # (Auto) Baso # (Auto) Abs Immat Gran (auto) Absolute Neuts (auto) Absolute Nucleated RBC Nucleated RBC % (auto) Absolute Retic Percent Retic Immature Retic Fraction Retic Hgb Equivalent Random Glucose Haptoglobin Magnesium Iron TIBC % Saturation Unsat Iron Binding Ferritin Lactate Dehydrogenase Total Protein Vitamin B12 Folate 04/02/24 04/02/24 04/02/24 08:03 08:03 08:03 WBC RBC Hgb Hct MCV MCH 32.2 MCHC Cancelled 33.3 RDW Cancelled 21.1 H Plt Count Cancelled MPV Immature Gran % (Auto) Neut % (Auto) Lymph % (Auto) [place] % (Auto) Eos % (Auto) Baso % (Auto) Lymph # (Auto) [place] # (Auto) Eos # (Auto) Baso # (Auto) Abs Immat Gran (auto) Absolute Neuts (auto) Absolute Nucleated RBC Nucleated RBC % (auto) Absolute Retic Percent Retic Immature Retic Fraction Retic Hgb Equivalent Random Glucose Haptoglobin Magnesium Iron TIBC % Saturation Unsat Iron Binding Ferritin Lactate Dehydrogenase Total Protein Vitamin B12 Folate 04/02/24 04/02/24 04/02/24 08:03 08:03 08:03 WBC RBC Hgb Hct MCV MCH MCHC RDW Plt Count 31 L D MPV Cancelled 13.9 H Immature Gran % (Auto) 1.4 H Neut % (Auto) 70.5 Lymph % (Auto) 15.2 L [place] % (Auto) 12.1 H Eos % (Auto) 0.6 Baso % (Auto) 0.2 Lymph # (Auto) 0.7 L [place] # (Auto) 0.6 Eos # (Auto) 0.0 Baso # (Auto) 0.0 Abs Immat Gran (auto) 0.07 H Absolute Neuts (auto) 3.4 Absolute Nucleated RBC Cancelled 0.000 Nucleated RBC % (auto) Cancelled Absolute Retic Percent Retic Immature Retic Fraction Retic Hgb Equivalent Random Glucose Haptoglobin Magnesium Iron TIBC % Saturation Unsat Iron Binding Ferritin Lactate Dehydrogenase Total Protein Vitamin B12 Folate 04/02/24 04/02/24 08:03 08:03 WBC RBC Hgb Hct MCV MCH MCHC RDW Plt Count MPV Immature Gran % (Auto) Neut % (Auto) Lymph % (Auto) [place] % (Auto) Eos % (Auto) Baso % (Auto) Lymph # (Auto) [place] # (Auto) Eos # (Auto) Baso # (Auto) Abs Immat Gran (auto) Absolute Neuts (auto) Absolute Nucleated RBC Nucleated RBC % (auto) 0.0 Absolute Retic 0.032 Percent Retic 1.3 Immature Retic Fraction 15.0 H Retic Hgb Equivalent 34.7 Random Glucose 82 Haptoglobin 34 L Magnesium 1.8 Iron 20 L TIBC 54 L % Saturation 37 Unsat Iron Binding 34 Ferritin 876 H Lactate Dehydrogenase Cancelled 355 H Total Protein 4.2 L Vitamin B12 654 Folate 5.1 Progress Note: A&P Assessment and plan (1) Atrial fibrillation with rapid ventricular response: Status: Acute Plan Overall, patient with many comorbidities, many recent acute issues, having atrial fibrillation with rapid rate, most likely due to the acute illnesses. Last echocardiogram in November with LVEF of 50-55%. Yesterday, it seems that he had another episode of atrial fibrillation but now back in normal sinus rhythm. Medical regimen at home includes amiodarone, diltiazem and metoprolol. We can keep him on the same regimen at the same doses. Due to GI bleed issues, not on Eliquis. Also, platelet count is quite low. Unlikely that he will be able to take Eliquis in the foreseeable future. Time Spent With Patient Time: Total time managing care of this patient today ____ minutes. Progress Note: Quality Stroke Does the patient have a stroke diagnosis?: No Procedures Date of Service Date of Service: 04/02/24
[2024-04-02 11:52] LABS: Alanine Aminotransferase 9 U/L (0-40); Albumin Level 2.1 g/dL (3.5-5.0); Alkaline Phosphatase 69 U/L (39-117); Aspartate Amino Transferase 20 U/L (5-37); Bilirubin Direct 0.4 mg/dL (0.0-0.5); Bilirubin Total 0.9 mg/dL (0.0-1.0); Total Protein 4.3 g/dL (6.5-8.0)
--- NOTE | 2024-04-02 12:33 | P.PNGS_ITS ---
Subjective Subjective Date of Service: 04/02/24 <Martha Pascual PA-C - Last Filed: 04/02/24 12:45> 04/02/24 <Manjinder Armstrong MD - Last Filed: 04/02/24 13:13> Interval history: Patient initially admitted for persistent diarrhea with associated weakness necessitating ICU level care for shock/hypotension with hospital course complicated by bacteremia and GIB with acute blood loss anemia. Ask to reevaluate patient by hospitalist service for possible SBO. Patient denies any abdominal pain, nausea. Tolerating a solid diet. Has been having daily loose BMs and passing flatus. <Martha Pascual PA-C - Last Filed: 04/02/24 12:45> Physical Exam 2 Vital Signs: Vital Signs: Last Vital Signs Temp 97.5 F 04/02/24 07:37 Pulse 74 04/02/24 12:30 Resp 15 04/02/24 12:30 BP 113/56 L 04/02/24 12:30 Pulse Ox 97 04/02/24 12:30 O2 Del Method Room Air 04/02/24 12:30 O2 Flow Rate 2.5 03/30/24 12:00 BMI result Body Mass Index 25.1 <Martha Pascual PA-C - Last Filed: 04/02/24 12:45> Const: General: comfortable, no acute distress and alert <Martha Pascual PA-C - Last Filed: 04/02/24 12:45> Resp: Effort & Inspection: normal respiratory effort <Martha Pascual PA-C - Last Filed: 04/02/24 12:45> GI: Inspection: Yes distended (mild, softly ) and Yes visible herniation (umbilical, soft and reducible) <Martha Pascual PA-C - Last Filed: 04/02/24 12:45> Palpation (GI): Soft to palpation, nontender and no guarding <TIA Bacon Last Filed: 04/02/24 12:45> Percussion: Yes normal to percussion <TIA Bacon Last Filed: 04/02/24 12:45> Objective Data Active Medications Acetaminophen (Acetaminophen 325 Mg Tablet) 650 mg PO Q6H PRN PRN Reason: Pain, Mild 1-3,fever,headache Last Admin: 03/30/24 15:49 Dose: 650 mg Documented By: LEAH Amiodarone HCl (Amiodarone Hcl 200 Mg Tablet) 200 mg PO DAILY [facility] Last Admin: 04/02/24 08:52 Dose: 200 mg Documented By: TRELL Ascorbic Acid (Ascorbic Acid 250 Mg Tablet) 250 mg PO BID [facility] Last Admin: 04/02/24 08:52 Dose: 250 mg Documented By: TRELL Cholestyramine Resin (Cholestyramine (With Sugar) 4 Gm Powd.Pack) 2 gm PO BIDWM [facility] Last Admin: 04/02/24 08:52 Dose: 2 gm Documented By: TRELL Ferrous Sulfate (Ferrous Sulfate 324 Mg Tablet.Dr) 324 mg PO BID [facility] Last Admin: 04/02/24 08:52 Dose: 324 mg Documented By: TRELL Fluconazole (Fluconazole 100 Mg Tablet) 100 mg PO DAILY [facility] Last Admin: 04/02/24 08:52 Dose: 100 mg Documented By: TRELL Hydromorphone HCl (Hydromorphone Hcl 0.5 Mg/0.5 Ml Syringe) 0.5 mg IVPUSH Q4H PRN; Protocol PRN Reason: Pain, Moderate(Pain Scale 4-6) Melatonin (Melatonin 3 Mg Tablet) 6 mg PO BEDTIME PRN PRN Reason: Insomnia Meropenem (Meropenem 500 Mg Vial) 500 mg IVPUSH Q12H [facility] Last Admin: 04/02/24 05:11 Dose: 500 mg Documented By: EVELYN Metoprolol Tartrate (Metoprolol Tartrate 25 Mg Tablet) 25 mg PO Q6H [facility]; Protocol Last Admin: 04/02/24 10:51 Dose: Not Given Documented By: TRELL Non-Admin Reason: low BP and pt going for procedure this AM Ondansetron HCl (Ondansetron Hcl 4 Mg/2 Ml Vial) 4 mg IVPUSH Q8H PRN PRN Reason: Nausea and Vomiting Pantoprazole Sodium (Pantoprazole Sodium 40 Mg/10 Ml Vial) 40 mg IVPUSH BID@0630,1630 [facility] Last Admin: 04/02/24 05:12 Dose: 40 mg Documented By: EVELYN Vancomycin HCl (Vancomycin Hcl 125 Mg Capsule) 250 mg PO Q6H [facility] Last Admin: 04/02/24 11:32 Dose: 250 mg Documented By: TRELL <Martha Pascual PA-C - Last Filed: 04/02/24 12:45> Labs CBC & Chem 7: 04/02/24 08:03 04/02/24 08:03 <Martha Pascual PA-C - Last Filed: 04/02/24 12:45> Labs: Laboratory Results - last 24 hr 04/02/24 04/02/24 04/02/24 08:03 08:03 08:03 MCV Cancelled 96.5 MCH Cancelled 32.2 MCHC Cancelled RDW Plt Count MPV Immature Gran % (Auto) Neut % (Auto) Lymph % (Auto) [place] % (Auto) Eos % (Auto) Baso % (Auto) Lymph # (Auto) [place] # (Auto) Eos # (Auto) Baso # (Auto) Abs Immat Gran (auto) Absolute Neuts (auto) Absolute Nucleated RBC Nucleated RBC % (auto) Absolute Retic Percent Retic Immature Retic Fraction Retic Hgb Equivalent Random Glucose Haptoglobin Magnesium Iron TIBC % Saturation Unsat Iron Binding Ferritin Total Bilirubin Direct Bilirubin AST ALT Alkaline Phosphatase Lactate Dehydrogenase Total Protein Albumin Vitamin B12 Folate 04/02/24 04/02/24 04/02/24 08:03 08:03 08:03 MCV MCH MCHC 33.3 RDW Cancelled 21.1 H Plt Count Cancelled 31 L D MPV Cancelled Immature Gran % (Auto) Neut % (Auto) Lymph % (Auto) [place] % (Auto) Eos % (Auto) Baso % (Auto) Lymph # (Auto) [place] # (Auto) Eos # (Auto) Baso # (Auto) Abs Immat Gran (auto) Absolute Neuts (auto) Absolute Nucleated RBC Nucleated RBC % (auto) Absolute Retic Percent Retic Immature Retic Fraction Retic Hgb Equivalent Random Glucose Haptoglobin Magnesium Iron TIBC % Saturation Unsat Iron Binding Ferritin Total Bilirubin Direct Bilirubin AST ALT Alkaline Phosphatase Lactate Dehydrogenase Total Protein Albumin Vitamin B12 Folate 04/02/24 04/02/24 04/02/24 08:03 08:03 08:03 MCV MCH MCHC RDW Plt Count MPV 13.9 H Immature Gran % (Auto) 1.4 H Neut % (Auto) 70.5 Lymph % (Auto) 15.2 L [place] % (Auto) 12.1 H Eos % (Auto) 0.6 Baso % (Auto) 0.2 Lymph # (Auto) 0.7 L [place] # (Auto) 0.6 Eos # (Auto) 0.0 Baso # (Auto) 0.0 Abs Immat Gran (auto) 0.07 H Absolute Neuts (auto) 3.4 Absolute Nucleated RBC Cancelled 0.000 Nucleated RBC % (auto) Cancelled 0.0 Absolute Retic 0.032 Percent Retic 1.3 Immature Retic Fraction 15.0 H Retic Hgb Equivalent 34.7 Random Glucose 82 Haptoglobin 34 L Magnesium 1.8 Iron 20 L TIBC 54 L % Saturation 37 Unsat Iron Binding 34 Ferritin 876 H Total Bilirubin 0.9 Direct Bilirubin 0.4 AST 20 ALT 9 Alkaline Phosphatase 69 Lactate Dehydrogenase Cancelled Total Protein Albumin Vitamin B12 Folate 04/02/24 04/02/24 08:03 08:03 MCV MCH MCHC RDW Plt Count MPV Immature Gran % (Auto) Neut % (Auto) Lymph % (Auto) [place] % (Auto) Eos % (Auto) Baso % (Auto) Lymph # (Auto) [place] # (Auto) Eos # (Auto) Baso # (Auto) Abs Immat Gran (auto) Absolute Neuts (auto) Absolute Nucleated RBC Nucleated RBC % (auto) Absolute Retic Percent Retic Immature Retic Fraction Retic Hgb Equivalent Random Glucose Haptoglobin Magnesium Iron TIBC % Saturation Unsat Iron Binding Ferritin Total Bilirubin Direct Bilirubin AST ALT Alkaline Phosphatase Lactate Dehydrogenase 355 H Total Protein 4.3 L 4.2 L Albumin 2.1 L Vitamin B12 654 Folate 5.1 <Martha Pascual PA-C - Last Filed: 04/02/24 12:45> Microbiology Microbiology Results: Microbiology 03/28/24 10:07 Blood Culture - Final Blood - Central Line No growth after 5 days. 03/28/24 10:07 Blood Culture - Final Blood - Central Line Klebsiella oxytoca 03/26/24 11:10 Blood Culture - Final Blood - Central Line Klebsiella oxytoca <TIA Bacon Last Filed: 04/02/24 12:45> Procedures Date of Service Date of Service: 04/02/24 <Martha Pascual PA-C - Last Filed: 04/02/24 12:45> 04/02/24 <Manjinder Armstrong MD - Last Filed: 04/02/24 13:13> Progress Note: A&P Assessment and plan (1) Acute blood loss anemia: Status: Acute <Martha Pascual PA-C - Last Filed: 04/02/24 12:45> (2) End stage renal disease: Status: Acute <Martha Pascual PA-C - Last Filed: 04/02/24 12:45> Assessment and Plan: Patient is tolerating a solid diet with daily bowel movements. His abd is mildly distended but soft and very benign, nontender. Clinically not obstructed. Discussed with patient and hospitalist. <Martha Pascual PA-C - Last Filed: 04/02/24 12:45> Patient is tolerating a solid diet with daily bowel movements. His abd is mildly distended but soft and very benign, nontender. Clinically not obstructed. Discussed with patient and hospitalist. As noted above <Manjinder Armstrong MD - Last Filed: 04/02/24 13:13> Time Spent With Patient Time: Total time managing care of this patient today ____ minutes. <Martha Pascual PA-C - Last Filed: 04/02/24 12:45> Quality Stroke Does the patient have a stroke diagnosis?: No <Martha Pascual PA-C - Last Filed: 04/02/24 12:45> VTE Prior VTE?: No <Martha Pascual PA-C - Last Filed: 04/02/24 12:45> VTE Risk Level:: Medical - moderate - high <Martha Pascual PA-C - Last Filed: 04/02/24 12:45> VTE Device Contraindication: Treatment Not Indicated <Martha Pascual PA-C - Last Filed: 04/02/24 12:45> VTE Drug Contraindication: N/A - Med Ordered <Martha Pascual PA-C - Last Filed: 04/02/24 12:45>
--- NOTE | 2024-04-02 12:35 | PM.PROC ---
Brief Operative Note Date of procedure: 04/02/24 Pre-op diagnosis: Left Pleural Effusion, Bacteremia Post-op diagnosis: same Procedure: Limited US of left chest demonstrates very small effusion not amenable to thoracentesis. Left IJ Permacath removed. Tip sent for culture. No bleeding noted after pressure held. Anesthesia: local
[2024-04-02] MEDS: Lidocaine HCl 1%/Epi 1:100,000 10 ML VIAL SUBCUT (13:13)
--- NOTE | 2024-04-02 13:29 | MHC.CLN ---
F/U DIET=2 GRAM SODIUM, LOW POTASSIUM, LOW PHOSPHORUS. PATIENT WITH ESRD ON HEMODIALYSIS. SKIN WITH STAGE II TO COCCYX. INTAKE VARIABLE WITH MOST MEALS 50% OR LESS. ENSURE CLEAR TID TO PROMOTE WOUND HEALING AND PO INTAKE. SUPPLEMENT PROVIDES 720 KCALS, 24 G PROTEIN. FOLLOW FOR PO INTAKE AND SKIN INTEGRITY.
--- NOTE | 2024-04-02 14:11 | MHC.CM.PN ---
EMR REVIEWED, PT W/BACTEREMIA ETIOLOGY UNKNOWN, DIALYSIS CATHETER REMOVED TODAY, NO PLAN FOR DC AT THIS TIME, CM WILL CONT TO FOLLOW DC NEEDS.
--- NOTE | 2024-04-02 16:09 | P.PNIM_ITS ---
Subjective Subjective Date of Service: 04/02/24 Interval History: gram negative bactermia Review of Systems denies new c/o denies any new bleeding does not produce much urine no fevers Physical Exam 2 Vital Signs: Vital Signs: Last Vital Signs Temp 98.3 F 04/02/24 15:52 Pulse 73 04/02/24 15:52 Resp 18 04/02/24 15:52 BP 119/61 04/02/24 15:52 Pulse Ox 98 04/02/24 15:52 O2 Del Method Room Air 04/02/24 15:52 O2 Flow Rate 2.5 03/30/24 12:00 BMI result Body Mass Index 25.1 General: AO X 3, no acute distress Resp: CTA bilateral CVS: S1,S2,RRR GI: +BS, NT, no distention Skin: No rash Neuro: motor grossly intact Psych: appropriate affect Objective Data Active Medications Acetaminophen (Acetaminophen 325 Mg Tablet) 650 mg PO Q6H PRN PRN Reason: Pain, Mild 1-3,fever,headache Last Admin: 03/30/24 15:49 Dose: 650 mg Documented By: LEAH Amiodarone HCl (Amiodarone Hcl 200 Mg Tablet) 200 mg PO DAILY [facility] Last Admin: 04/02/24 08:52 Dose: 200 mg Documented By: TRELL Ascorbic Acid (Ascorbic Acid 250 Mg Tablet) 250 mg PO BID [facility] Last Admin: 04/02/24 08:52 Dose: 250 mg Documented By: TRELL Cholestyramine Resin (Cholestyramine (With Sugar) 4 Gm Powd.Pack) 2 gm PO BIDWM [facility] Last Admin: 04/02/24 08:52 Dose: 2 gm Documented By: TRELL Ferrous Sulfate (Ferrous Sulfate 324 Mg Tablet.Dr) 324 mg PO BID [facility] Last Admin: 04/02/24 08:52 Dose: 324 mg Documented By: TRELL Fluconazole (Fluconazole 100 Mg Tablet) 100 mg PO DAILY [facility] Last Admin: 04/02/24 08:52 Dose: 100 mg Documented By: TRELL Hydromorphone HCl (Hydromorphone Hcl 0.5 Mg/0.5 Ml Syringe) 0.5 mg IVPUSH Q4H PRN; Protocol PRN Reason: Pain, Moderate(Pain Scale 4-6) Melatonin (Melatonin 3 Mg Tablet) 6 mg PO BEDTIME PRN PRN Reason: Insomnia Meropenem (Meropenem 500 Mg Vial) 500 mg IVPUSH Q12H [facility] Last Admin: 04/02/24 05:11 Dose: 500 mg Documented By: EVELYN Metoprolol Tartrate (Metoprolol Tartrate 25 Mg Tablet) 25 mg PO Q6H [facility]; Protocol Last Admin: 04/02/24 10:51 Dose: Not Given Documented By: TRELL Non-Admin Reason: low BP and pt going for procedure this AM Ondansetron HCl (Ondansetron Hcl 4 Mg/2 Ml Vial) 4 mg IVPUSH Q8H PRN PRN Reason: Nausea and Vomiting Pantoprazole Sodium (Pantoprazole Sodium 40 Mg/10 Ml Vial) 40 mg IVPUSH BID@0630,1630 [facility] Last Admin: 04/02/24 05:12 Dose: 40 mg Documented By: EVELYN Vancomycin HCl (Vancomycin Hcl 125 Mg Capsule) 250 mg PO Q6H [facility] Last Admin: 04/02/24 11:32 Dose: 250 mg Documented By: TRELL Labs 04/02/24 08:03 04/02/24 08:03 Labs: Laboratory Results - last 24 hr 04/02/24 04/02/24 04/02/24 08:03 08:03 08:03 MCV Cancelled 96.5 MCH Cancelled 32.2 MCHC Cancelled RDW Plt Count MPV Immature Gran % (Auto) Neut % (Auto) Lymph % (Auto) [place] % (Auto) Eos % (Auto) Baso % (Auto) Lymph # (Auto) [place] # (Auto) Eos # (Auto) Baso # (Auto) Abs Immat Gran (auto) Absolute Neuts (auto) Absolute Nucleated RBC Nucleated RBC % (auto) Absolute Retic Percent Retic Immature Retic Fraction Retic Hgb Equivalent Random Glucose Haptoglobin Magnesium Iron TIBC % Saturation Unsat Iron Binding Ferritin Total Bilirubin Direct Bilirubin AST ALT Alkaline Phosphatase Lactate Dehydrogenase Total Protein Albumin Vitamin B12 Folate 04/02/24 04/02/24 04/02/24 08:03 08:03 08:03 MCV MCH MCHC 33.3 RDW Cancelled 21.1 H Plt Count Cancelled 31 L D MPV Cancelled Immature Gran % (Auto) Neut % (Auto) Lymph % (Auto) [place] % (Auto) Eos % (Auto) Baso % (Auto) Lymph # (Auto) [place] # (Auto) Eos # (Auto) Baso # (Auto) Abs Immat Gran (auto) Absolute Neuts (auto) Absolute Nucleated RBC Nucleated RBC % (auto) Absolute Retic Percent Retic Immature Retic Fraction Retic Hgb Equivalent Random Glucose Haptoglobin Magnesium Iron TIBC % Saturation Unsat Iron Binding Ferritin Total Bilirubin Direct Bilirubin AST ALT Alkaline Phosphatase Lactate Dehydrogenase Total Protein Albumin Vitamin B12 Folate 04/02/24 04/02/24 04/02/24 08:03 08:03 08:03 MCV MCH MCHC RDW Plt Count MPV 13.9 H Immature Gran % (Auto) 1.4 H Neut % (Auto) 70.5 Lymph % (Auto) 15.2 L [place] % (Auto) 12.1 H Eos % (Auto) 0.6 Baso % (Auto) 0.2 Lymph # (Auto) 0.7 L [place] # (Auto) 0.6 Eos # (Auto) 0.0 Baso # (Auto) 0.0 Abs Immat Gran (auto) 0.07 H Absolute Neuts (auto) 3.4 Absolute Nucleated RBC Cancelled 0.000 Nucleated RBC % (auto) Cancelled 0.0 Absolute Retic 0.032 Percent Retic 1.3 Immature Retic Fraction 15.0 H Retic Hgb Equivalent 34.7 Random Glucose 82 Haptoglobin 34 L Magnesium 1.8 Iron 20 L TIBC 54 L % Saturation 37 Unsat Iron Binding 34 Ferritin 876 H Total Bilirubin 0.9 Direct Bilirubin 0.4 AST 20 ALT 9 Alkaline Phosphatase 69 Lactate Dehydrogenase Cancelled Total Protein Albumin Vitamin B12 Folate 04/02/24 04/02/24 08:03 08:03 MCV MCH MCHC RDW Plt Count MPV Immature Gran % (Auto) Neut % (Auto) Lymph % (Auto) [place] % (Auto) Eos % (Auto) Baso % (Auto) Lymph # (Auto) [place] # (Auto) Eos # (Auto) Baso # (Auto) Abs Immat Gran (auto) Absolute Neuts (auto) Absolute Nucleated RBC Nucleated RBC % (auto) Absolute Retic Percent Retic Immature Retic Fraction Retic Hgb Equivalent Random Glucose Haptoglobin Magnesium Iron TIBC % Saturation Unsat Iron Binding Ferritin Total Bilirubin Direct Bilirubin AST ALT Alkaline Phosphatase Lactate Dehydrogenase 355 H Total Protein 4.3 L 4.2 L Albumin 2.1 L Vitamin B12 654 Folate 5.1 Microbiology Microbiology Results: Microbiology 03/28/24 10:07 Blood Culture - Final Blood - Central Line No growth after 5 days. 03/28/24 10:07 Blood Culture - Final Blood - Central Line Klebsiella oxytoca Assessment and Plan (1) Acute blood loss anemia: Status: Acute Assessment and Plan: 78-year-old male with history of ESRD on HD MWF, colorectal cancer status post low anterior resection with diverting loop ileostomy and reversal at [facility], recurrent c diff, chronic R hydonephrosis, and atrial fibrillation on Eliquis who presents to the emergency department on 03/25/24 with persistent diarrhea 3-4x/day with associated weakness, was transfered to ICU on same day due to shock/hypotension, hospital course complicated by bacteremia and GIB with acute blood loss anemia Diarrhea, h/o Cdif, negative Cdif this time. Po Vancomycin 125 mg qid while on antibiotics and 48 h after and then 125 m,w,fri per ID recommendation Shock/hypotension, was on pressors in icu, resolved. 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 Urine culture repeat ordered again. As per the surgery clinically does not look look bowel obstruction, discussed with the Urology-since patient does not produce much urine at baseline, and CT abdomen finding looks unchanged right-sided hydro-recommended to repeat culture urine. In addition initial CT scan shows question of CBD dilation, LFTs are normal- patient does not have abdominal pain-GI recommended MRCP to further evaluate. Above was discussed with ID and Nephro. Added repeat blood culture also to seek clearance of bacteremia. Urology evaluation pending GI bleeding acute blood loss anemia s/p 2 units of RBC, transfuse 1 unit today during dialysis S/p EGD on 03/29 with finding of gastritis duodenitis candidal esophagitis-added fluconazole(d/w GI). 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 will transfusion with dialysis tomorrow Thrombocytopenia, acute on chronic: Hematology workup added, iron and TIBC low, LDH mildly elevated Platelets improving to 31, H&H is slightly down to 8.3/24 0.9 Will continue to monitor CBC. End-stage renal disease on HD MWF Acute Lactic acidosis- likely secondary to dehydration and ESRD Chronic Atrial fibrillation, Hold eliquis in light of recent gib and low platlets will ask GI and profound anemia, requireing multiple transfusion hr flactautes ask gi when to restart. restarted amio and metoprolol prn ,add cardizem if bp allows , bp is lower side also. Full code VTE prophylaxis: scd Quality Stroke Does the patient have a stroke diagnosis?: No VTE Prior VTE?: No VTE Risk Level:: Medical - moderate - high VTE Device Contraindication: Treatment Not Indicated VTE Drug Contraindication: N/A - Med Ordered
--- NOTE | 2024-04-02 16:27 | PM.GIPN ---
Subjective Subjective Date of Service: 04/02/24 Interval History: looks much better today better color and more energetic no abdominal pain no rectal bleeding or melena still having diarrhea just started cholestyramine awaiting MRCP by Dr cleaning r/o biliary cause for his bacteremia Critical Care Time (minutes): 0 Physical Exam Vital Signs: Vital Signs: Last Vital Signs Temp 98.3 F 04/02/24 15:52 Pulse 73 04/02/24 15:52 Resp 18 04/02/24 15:52 BP 119/61 04/02/24 15:52 Pulse Ox 98 04/02/24 15:52 O2 Del Method Room Air 04/02/24 15:52 O2 Flow Rate 2.5 03/30/24 12:00 BMI result Body Mass Index 25.1 EXAM: GENERAL: The patient is frail, weak VITAL SIGNS:see workflow HEENT: Nonicteric sclerae, PERRLA, EOMI. Oropharynx clear. Moist mucous membranes. Conjunctivae appear well perfused. No thyroid mass. CHEST: Chest wall is nontender. HEART: Regular rate and rhythm without murmurs. LUNGS: Clear to auscultation bilaterally. ABDOMEN: Soft, positive bowel sounds, nontender, no organomegaly.no flank tenderness SKIN: No rash, no excessive bruising, petechiae, or purpura. NEUROLOGIC: Cranial nerves II-XII intact without motor/sensory deficit. Psych: normal affect Objective Data Labs 04/02/24 08:03 04/02/24 08:03 Labs: Laboratory Results - last 24 hr 04/02/24 04/02/24 04/02/24 08:03 08:03 08:03 WBC Cancelled 4.9 RBC Cancelled 2.58 L Hgb Cancelled Hct MCV MCH MCHC RDW Plt Count MPV Immature Gran % (Auto) Neut % (Auto) Lymph % (Auto) [place] % (Auto) Eos % (Auto) Baso % (Auto) Lymph # (Auto) [place] # (Auto) Eos # (Auto) Baso # (Auto) Abs Immat Gran (auto) Absolute Neuts (auto) Absolute Nucleated RBC Nucleated RBC % (auto) Absolute Retic Percent Retic Immature Retic Fraction Retic Hgb Equivalent Random Glucose Haptoglobin Magnesium Iron TIBC % Saturation Unsat Iron Binding Ferritin Total Bilirubin Direct Bilirubin AST ALT Alkaline Phosphatase Lactate Dehydrogenase Total Protein Albumin Vitamin B12 Folate 04/02/24 04/02/24 04/02/24 08:03 08:03 08:03 WBC RBC Hgb 8.3 L Hct Cancelled 24.9 L MCV Cancelled 96.5 MCH Cancelled MCHC RDW Plt Count MPV Immature Gran % (Auto) Neut % (Auto) Lymph % (Auto) [place] % (Auto) Eos % (Auto) Baso % (Auto) Lymph # (Auto) [place] # (Auto) Eos # (Auto) Baso # (Auto) Abs Immat Gran (auto) Absolute Neuts (auto) Absolute Nucleated RBC Nucleated RBC % (auto) Absolute Retic Percent Retic Immature Retic Fraction Retic Hgb Equivalent Random Glucose Haptoglobin Magnesium Iron TIBC % Saturation Unsat Iron Binding Ferritin Total Bilirubin Direct Bilirubin AST ALT Alkaline Phosphatase Lactate Dehydrogenase Total Protein Albumin Vitamin B12 Folate 04/02/24 04/02/24 04/02/24 08:03 08:03 08:03 WBC RBC Hgb Hct MCV MCH 32.2 MCHC Cancelled 33.3 RDW Cancelled 21.1 H Plt Count Cancelled MPV Immature Gran % (Auto) Neut % (Auto) Lymph % (Auto) [place] % (Auto) Eos % (Auto) Baso % (Auto) Lymph # (Auto) [place] # (Auto) Eos # (Auto) Baso # (Auto) Abs Immat Gran (auto) Absolute Neuts (auto) Absolute Nucleated RBC Nucleated RBC % (auto) Absolute Retic Percent Retic Immature Retic Fraction Retic Hgb Equivalent Random Glucose Haptoglobin Magnesium Iron TIBC % Saturation Unsat Iron Binding Ferritin Total Bilirubin Direct Bilirubin AST ALT Alkaline Phosphatase Lactate Dehydrogenase Total Protein Albumin Vitamin B12 Folate 04/02/24 04/02/24 04/02/24 08:03 08:03 08:03 WBC RBC Hgb Hct MCV MCH MCHC RDW Plt Count 31 L D MPV Cancelled 13.9 H Immature Gran % (Auto) 1.4 H Neut % (Auto) 70.5 Lymph % (Auto) 15.2 L [place] % (Auto) 12.1 H Eos % (Auto) 0.6 Baso % (Auto) 0.2 Lymph # (Auto) 0.7 L [place] # (Auto) 0.6 Eos # (Auto) 0.0 Baso # (Auto) 0.0 Abs Immat Gran (auto) 0.07 H Absolute Neuts (auto) 3.4 Absolute Nucleated RBC Cancelled 0.000 Nucleated RBC % (auto) Cancelled Absolute Retic Percent Retic Immature Retic Fraction Retic Hgb Equivalent Random Glucose Haptoglobin Magnesium Iron TIBC % Saturation Unsat Iron Binding Ferritin Total Bilirubin Direct Bilirubin AST ALT Alkaline Phosphatase Lactate Dehydrogenase Total Protein Albumin Vitamin B12 Folate 04/02/24 04/02/24 04/02/24 08:03 08:03 08:03 WBC RBC Hgb Hct MCV MCH MCHC RDW Plt Count MPV Immature Gran % (Auto) Neut % (Auto) Lymph % (Auto) [place] % (Auto) Eos % (Auto) Baso % (Auto) Lymph # (Auto) [place] # (Auto) Eos # (Auto) Baso # (Auto) Abs Immat Gran (auto) Absolute Neuts (auto) Absolute Nucleated RBC Nucleated RBC % (auto) 0.0 Absolute Retic 0.032 Percent Retic 1.3 Immature Retic Fraction 15.0 H Retic Hgb Equivalent 34.7 Random Glucose 82 Haptoglobin 34 L Magnesium 1.8 Iron 20 L TIBC 54 L % Saturation 37 Unsat Iron Binding 34 Ferritin 876 H Total Bilirubin 0.9 Direct Bilirubin 0.4 AST 20 ALT 9 Alkaline Phosphatase 69 Lactate Dehydrogenase Cancelled 355 H Total Protein 4.3 L 4.2 L Albumin 2.1 L Vitamin B12 654 Folate 5.1 Microbiology Microbiology Results: Microbiology 03/28/24 10:07 Blood - Central Line Blood Culture - Final No growth after 5 days. 03/28/24 10:07 Blood - Central Line Blood Culture - Final Klebsiella oxytoca 03/26/24 11:10 Blood - Central Line Blood Culture - Final Klebsiella oxytoca 03/26/24 11:30 Blood - Central Line Blood Culture - Final Klebsiella oxytoca 03/25/24 03:02 Blood - Venous Blood Culture - Final Klebsiella oxytoca 03/25/24 03:16 Blood - Venous Blood Culture - Final Klebsiella oxytoca Procedures Date of Service Date of Service: 04/02/24 Progress Note: A&P Assessment and plan (1) Acute blood loss anemia: Status: Acute Plan 1/ Anemia from dieulafoy s/p clipping, HGB has been stable PLAN: 1/ await MRI for evla biliary tree 2/ diarrhea could be from abx as well, can add probiotic and cont cholestyramine for a little longer bores topping as it is too early Time Spent With Patient Time: Total time managing care of this patient today ____ minutes. Quality Stroke Does the patient have a stroke diagnosis?: No VTE Prior VTE?: No VTE Risk Level:: Medical - moderate - high VTE Device Contraindication: Treatment Not Indicated VTE Drug Contraindication: N/A - Med Ordered
[2024-04-03 03:42] VITALS: BP 129/67; PULSE 67; RESP 19; O2SAT 95
[2024-04-03] MEDS: vancomycin HCL 125 MG CAPSULE 250 MG PO ×4 (03:45→21:15)
[2024-04-03] MEDS: Metoprolol Tartrate 25 MG TABLET PO ×4 (03:45→21:23)
[2024-04-03] MEDS: Meropenem 500 MG VIAL IVPUSH ×2 (05:59→17:33)
[2024-04-03 07:27] VITALS: BP 123/58; PULSE 65; RESP 16; TEMP 36.4; O2SAT 95
[2024-04-03 08:34] LABS: Hematocrit 25.8 % (42.0-52.0); Hemoglobin 8.5 g/dl (14.0-18.0); Mean Corpuscular HGB Conc 32.9 g/dl (31.0-36.0); Mean Corpuscular Hemoglobin 32.4 pg (27.0-33.0); Mean Corpuscular Volume 98.5 fL (80.0-98.0); Red Blood Count 2.62 X10*6/uL (4.60-5.80); Red Cell Distribution Width 21.5 % (11.0-16.0); White Blood Count 6.4 X10*3/uL (4.8-10.8)
[2024-04-03 08:35] LABS: Platelet Count 45 X10*3/uL (160-400)
[2024-04-03] MEDS: Ascorbic Acid 250 MG TABLET PO ×2 (08:35→21:15)
[2024-04-03] MEDS: Amiodarone HCL 200 MG TABLET PO (08:35)
[2024-04-03] MEDS: Ferrous Sulfate 324 MG TABLET.DR PO ×2 (08:35→21:15)
[2024-04-03] MEDS: Fluconazole 100 MG TABLET PO (08:35)
[2024-04-03] MEDS: Cholestyramine (With Sugar) 4 GM POWD.PACK 2 GM PO ×2 (08:36→17:15)
[2024-04-03 08:46] LABS: Anion Gap 9 (12-20); Blood Urea Nitrogen 20 mg/dL (9-16); Carbon Dioxide 28 mmol/L (22-29); Chloride 110 mmol/L (96-108); Creatinine Clr Calc Pharmacy 22.4; Estimated Glomerular Filt Rate 22; Glucose Random 85 mg/dL (60-115); Potassium 3.1 mmol/L (3.3-5.1); Sodium 144 mmol/L (135-145)
[2024-04-03] MEDS: Potassium Chloride Packet 20 MEQ PACKET PO (11:01)
[2024-04-03 11:17] VITALS: BP 126/60; PULSE 72; RESP 18; TEMP 36.8; O2SAT 93
--- NOTE | 2024-04-03 13:31 | P.PNIM_ITS ---
Subjective Subjective Date of Service: 04/03/24 Interval History: anemia ,diarrhae Review of Systems has episode of diarrhae -no bleeding no fevers or sob Physical Exam 2 Vital Signs: Vital Signs: Last Vital Signs Temp 98.3 F 04/03/24 11:17 Pulse 72 04/03/24 11:17 Resp 18 04/03/24 11:17 BP 126/60 04/03/24 11:17 Pulse Ox 93 04/03/24 11:17 O2 Del Method Room Air 04/03/24 11:17 O2 Flow Rate 2.5 03/30/24 12:00 BMI result Body Mass Index 25.1 General: AO X 3, no acute distress Resp: CTA bilateral CVS: S1,S2,RRR GI: +BS, NT, no distention Skin: No rash Neuro: motor grossly intact Psych: appropriate affect Objective Data Active Medications Acetaminophen (Acetaminophen 325 Mg Tablet) 650 mg PO Q6H PRN PRN Reason: Pain, Mild 1-3,fever,headache Last Admin: 03/30/24 15:49 Dose: 650 mg Documented By: LEAH Amiodarone HCl (Amiodarone Hcl 200 Mg Tablet) 200 mg PO DAILY [facility] Last Admin: 04/03/24 08:35 Dose: 200 mg Documented By: JENNIE Ascorbic Acid (Ascorbic Acid 250 Mg Tablet) 250 mg PO BID [facility] Last Admin: 04/03/24 08:35 Dose: 250 mg Documented By: JENNIE Cholestyramine Resin (Cholestyramine (With Sugar) 4 Gm Powd.Pack) 2 gm PO BIDWM [facility] Last Admin: 04/03/24 08:36 Dose: 2 gm Documented By: JENNIE Ferrous Sulfate (Ferrous Sulfate 324 Mg Tablet.Dr) 324 mg PO BID [facility] Last Admin: 04/03/24 08:35 Dose: 324 mg Documented By: JENNIE Fluconazole (Fluconazole 100 Mg Tablet) 100 mg PO DAILY [facility] Last Admin: 04/03/24 08:35 Dose: 100 mg Documented By: JENNIE Hydromorphone HCl (Hydromorphone Hcl 0.5 Mg/0.5 Ml Syringe) 0.5 mg IVPUSH Q4H PRN; Protocol PRN Reason: Pain, Moderate(Pain Scale 4-6) Octreotide Acetate 500 mcg/ (Sodium Chloride) 501 mls @ 50.1 mls/hr IVCONT .Q10H [facility] Melatonin (Melatonin 3 Mg Tablet) 6 mg PO BEDTIME PRN PRN Reason: Insomnia Meropenem (Meropenem 500 Mg Vial) 500 mg IVPUSH Q12H [facility] Last Admin: 04/03/24 05:59 Dose: 500 mg Documented By: EVELYN Metoprolol Tartrate (Metoprolol Tartrate 25 Mg Tablet) 25 mg PO Q6H [facility]; Protocol Last Admin: 04/03/24 11:00 Dose: 25 mg Documented By: JENNIE Ondansetron HCl (Ondansetron Hcl 4 Mg/2 Ml Vial) 4 mg IVPUSH Q8H PRN PRN Reason: Nausea and Vomiting Pantoprazole Sodium (Pantoprazole Sodium 40 Mg/10 Ml Vial) 40 mg IVPUSH BID@0630,1630 [facility] Vancomycin HCl (Vancomycin Hcl 125 Mg Capsule) 250 mg PO Q6H [facility] Last Admin: 04/03/24 08:35 Dose: 250 mg Documented By: JENNIE Labs 04/03/24 08:06 04/03/24 08:06 Labs: Laboratory Results - last 24 hr 04/03/24 08:06 MCV 98.5 H MCH 32.4 MCHC 32.9 RDW 21.5 H Plt Count 45 L D MPV 13.0 H Absolute Nucleated RBC 0.000 Nucleated RBC % (auto) 0.0 Anion Gap 9 L Estim Creat Clear Calc 22.4 Estimated GFR 22 Random Glucose 85 Calcium 7.0 L Microbiology Microbiology Results: Microbiology 04/02/24 17:16 Urine Culture - Preliminary Urine clean catch - Clean Catch Midstream Culture too young to evaluate. 04/02/24 12:25 Catheter Tip Culture - Preliminary Catheter Tip - Other No growth after 1 day 03/28/24 10:07 Blood Culture - Final Blood - Central Line No growth after 5 days. 03/28/24 10:07 Blood Culture - Final Blood - Central Line Klebsiella oxytoca Assessment and Plan (1) Acute blood loss anemia: Status: Acute Assessment and Plan: 78-year-old male with history of ESRD on HD MWF, colorectal cancer status post low anterior resection with diverting loop ileostomy and reversal at [facility], recurrent c diff, chronic R hydonephrosis, and atrial fibrillation on Eliquis who presents to the emergency department on 03/25/24 with persistent diarrhea 3-4x/day with associated weakness, was transfered to ICU on same day due to shock/hypotension, hospital course complicated by bacteremia and GIB with acute blood loss anemia Diarrhea, h/o Cdif, negative Cdif this time. Po Vancomycin 125 mg qid while on antibiotics and 48 h after and then 125 m,w,sun per ID recommendation Shock/hypotension, was on pressors in icu, resolved. 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 As per the surgery clinically does not look look bowel obstruction, discussed with the Urology-since patient does not produce much urine at baseline, and CT abdomen finding looks unchanged right-sided hydro-recommended to repeat culture urine pending . In addition initial CT scan shows question of CBD dilation, LFTs are normal- patient does not have abdominal pain-GI recommended MRCP to further evaluate. Above was discussed with ID and Nephro. Added repeat blood culture also to seek clearance of bacteremia. Urology evaluation pending GI bleeding acute blood loss anemia s/p 2 units of RBC, transfuse 1 unit today during dialysis S/p EGD on 03/29 : gastritis,duodenitis candidal esophagitis-added fluconazole(d/w GI). 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 Thrombocytopenia, acute on chronic: Hematology workup added, iron and TIBC low, LDH mildly elevated Platelets improving to 45, H&H is flactuating from 8 to 8.5 monitor CBC. End-stage renal disease on HD MWF Acute Lactic acidosis- likely secondary to dehydration and ESRD Chronic Atrial fibrillation, Hold eliquis in light of recent gib and low platlets will ask GI and profound anemia, requireing multiple transfusion hr flactautes on amio and metoprolol prn ,add cardizem if bp allows , bp is lower side also. Full code VTE prophylaxis: scd Quality Stroke Does the patient have a stroke diagnosis?: No VTE Prior VTE?: No VTE Risk Level:: Medical - moderate - high VTE Device Contraindication: Treatment Not Indicated VTE Drug Contraindication: N/A - Med Ordered
[2024-04-03] MEDS: Loperamide HCl Oral Liquid 2 MG/15 ML LIQUID PO (13:40)
[2024-04-03] MEDS: Octreotide Acetate 500 MCG in 0.9 % Sodium Chloride 500 ML 50.1 MCG IVCONT ×2 (13:40→23:01)
[2024-04-03 14:24] LABS: Hematocrit 26.1 % (42.0-52.0); Hemoglobin 8.3 g/dl (14.0-18.0)
[2024-04-03 15:10] VITALS: BP 122/58; PULSE 63; RESP 16; TEMP 36.6; O2SAT 93
[2024-04-03] MEDS: Pantoprazole Sodium 40 MG/10 ML VIAL IVPUSH (17:15)
--- NOTE | 2024-04-03 17:45 | P.PNGI_ITS ---
Subjective Subjective Date of Service: 04/03/24 Interval History: pl slightly better hgb holding steady no melena no rectal bleeding still has diarrhea Critical Care Time (minutes): 0 Physical Exam 2 Vital Signs: Vital Signs: Last Vital Signs Temp 97.8 F 04/03/24 15:10 Pulse 63 04/03/24 15:10 Resp 16 04/03/24 15:10 BP 122/58 L 04/03/24 15:10 Pulse Ox 93 04/03/24 15:10 O2 Del Method Room Air 04/03/24 15:10 O2 Flow Rate 2.5 03/30/24 12:00 BMI result Body Mass Index 25.1 EXAM: GENERAL: The patient is frail VITAL SIGNS:see workflow HEENT: Nonicteric sclerae, PERRLA, EOMI. Oropharynx clear. Moist mucous membranes. Conjunctivae appear well perfused. No thyroid mass. CHEST: Chest wall is nontender. HEART: Regular rate and rhythm without murmurs. LUNGS: Clear to auscultation bilaterally. ABDOMEN: Soft, positive bowel sounds, nontender, no organomegaly.no flank tenderness SKIN: No rash, no excessive bruising, petechiae, or purpura. NEUROLOGIC: Cranial nerves II-XII intact without motor/sensory deficit. Psych: normal affect Objective Data Labs 04/03/24 13:57 04/03/24 08:06 Labs: Laboratory Results - last 24 hr 04/03/24 04/03/24 08:06 13:57 WBC 6.4 RBC 2.62 L Hgb 8.5 L 8.3 L Hct 25.8 L 26.1 L MCV 98.5 H MCH 32.4 MCHC 32.9 RDW 21.5 H Plt Count 45 L D MPV 13.0 H Absolute Nucleated RBC 0.000 Nucleated RBC % (auto) 0.0 Sodium 144 Potassium 3.1 L Chloride 110 H Carbon Dioxide 28 Anion Gap 9 L BUN 20 H Creatinine 2.76 H Estim Creat Clear Calc 22.4 Estimated GFR 22 Random Glucose 85 Calcium 7.0 L Microbiology Microbiology Results: Microbiology 04/02/24 14:08 Blood - Venous Blood Culture - Preliminary No growth after 24 hours. 04/02/24 14:08 Blood - Venous Blood Culture - Preliminary No growth after 24 hours. 04/02/24 17:16 Urine clean catch - Clean Catch Midstream Urine Culture - Preliminary Culture too young to evaluate. 04/02/24 12:25 Catheter Tip - Other Catheter Tip Culture - Preliminary No growth after 1 day 03/28/24 10:07 Blood - Central Line Blood Culture - Final No growth after 5 days. 03/28/24 10:07 Blood - Central Line Blood Culture - Final Klebsiella oxytoca 03/26/24 11:10 Blood - Central Line Blood Culture - Final Klebsiella oxytoca 03/26/24 11:30 Blood - Central Line Blood Culture - Final Klebsiella oxytoca 03/25/24 03:02 Blood - Venous Blood Culture - Final Klebsiella oxytoca 03/25/24 03:16 Blood - Venous Blood Culture - Final Klebsiella oxytoca Procedures Date of Service Date of Service: 04/03/24 Progress Note: A&P Assessment and plan (1) Acute blood loss anemia: Status: Acute Plan 1/ HGb holding steady, plts slightly improved Plan; 1/ can use octreotide till plts 50-100 range if any concern for bleeding 2/cont ppi 3/ try lomotil for diarrhea,maybe post infectious or from meropenem Time Spent With Patient Time: Total time managing care of this patient today ____ minutes. Quality Stroke Does the patient have a stroke diagnosis?: No VTE Prior VTE?: No VTE Risk Level:: Medical - moderate - high VTE Device Contraindication: Treatment Not Indicated VTE Drug Contraindication: N/A - Med Ordered
[2024-04-03 19:40] VITALS: BP 96/46; PULSE 64; RESP 17; TEMP 37; O2SAT 92
[2024-04-03 21:20] VITALS: BP 130/58
[2024-04-04] VITALS (10 sets, daily range): BP systolic 117–166; BP diastolic 56–93; PULSE 59–63; RESP 14–20; TEMP 36.1–37.3; O2SAT 92–100
[2024-04-04] MEDS: vancomycin HCL 125 MG CAPSULE 250 MG PO ×4 (03:19→20:24)
[2024-04-04] MEDS: Pantoprazole Sodium 40 MG/10 ML VIAL IVPUSH ×2 (05:22→17:22)
[2024-04-04 07:09] LABS: Hematocrit 25.7 % (42.0-52.0); Hemoglobin 8.3 g/dl (14.0-18.0); Mean Corpuscular HGB Conc 32.3 g/dl (31.0-36.0); Mean Corpuscular Hemoglobin 32.3 pg (27.0-33.0); Red Blood Count 2.57 X10*6/uL (4.60-5.80)
[2024-04-04 07:15] LABS: Platelet Count 57 X10*3/uL (160-400)
[2024-04-04 07:33] LABS: Anion Gap 10 (12-20); Blood Urea Nitrogen 23 mg/dL (9-16); Calcium 6.7 mg/dL (8.4-10.2); Carbon Dioxide 24 mmol/L (22-29); Chloride 111 mmol/L (96-108); Creatinine Clr Calc Pharmacy 20.2; Estimated Glomerular Filt Rate 20; Glucose Random 90 mg/dL (60-115); Potassium 3.8 mmol/L (3.3-5.1); Sodium 141 mmol/L (135-145)
[2024-04-04] MEDS: Octreotide Acetate 500 MCG in 0.9 % Sodium Chloride 500 ML 50.1 MCG IVCONT ×2 (09:30→18:34)
[2024-04-04] MEDS: Metoprolol Tartrate 25 MG TABLET PO ×2 (09:32→17:22)
[2024-04-04] MEDS: Calcium + Vitamin D 250 MG TABLET PO (09:32)
[2024-04-04] MEDS: Amiodarone HCL 200 MG TABLET PO (09:32)
[2024-04-04] MEDS: Fluconazole 100 MG TABLET PO (09:33)
[2024-04-04] MEDS: Ascorbic Acid 250 MG TABLET PO ×2 (09:33→20:24)
[2024-04-04] MEDS: Cholestyramine (With Sugar) 4 GM POWD.PACK 2 GM PO ×2 (09:34→17:22)
[2024-04-04] MEDS: Ferrous Sulfate 324 MG TABLET.DR PO ×2 (09:35→20:24)
--- NOTE | 2024-04-04 13:10 | MHC.CLN ---
F/U PATIENT IS NPO TODAY. WHEN ABLE, CONTINUE PREVIOUS DIET, 2 GRAM SODIUM, LOW POTASSIUM, LOW PHOSPHORUS. PATIENT WITH ESRD ON HEMODIALYSIS. SKIN WITH STAGE II TO COCCYX. ADD ENSURE CLEAR TID TO PROMOTE WOUND HEALING AND PO INTAKE. SUPPLEMENT PROVIDES 720 KCALS, 24 G PROTEIN. FOLLOW FOR PO INTAKE AND SKIN INTEGRITY.
--- NOTE | 2024-04-04 14:31 | P.PNIM_ITS ---
Subjective Subjective Date of Service: 04/04/24 Interval History: anemia ,diarrhae Review of Systems episode of diarrhae -no bleeding no fevers or sob Physical Exam 2 Vital Signs: Vital Signs: Last Vital Signs Temp 97.9 F 04/04/24 11:29 Pulse 60 04/04/24 11:29 Resp 14 04/04/24 11:29 BP 117/56 L 04/04/24 11:29 Pulse Ox 94 04/04/24 11:29 O2 Del Method Room Air 04/04/24 11:29 O2 Flow Rate 2.5 03/30/24 12:00 BMI result Body Mass Index 25.1 General: AO X 3, no acute distress Resp: CTA bilateral CVS: S1,S2,RRR GI: +BS, NT, no distention Skin: No rash Neuro: motor grossly intact Psych: appropriate affect Objective Data Active Medications Acetaminophen (Acetaminophen 325 Mg Tablet) 650 mg PO Q6H PRN PRN Reason: Pain, Mild 1-3,fever,headache Last Admin: 03/30/24 15:49 Dose: 650 mg Documented By: LEAH Amiodarone HCl (Amiodarone Hcl 200 Mg Tablet) 200 mg PO DAILY [facility] Last Admin: 04/04/24 09:32 Dose: 200 mg Documented By: WESLY Ascorbic Acid (Ascorbic Acid 250 Mg Tablet) 250 mg PO BID [facility] Last Admin: 04/04/24 09:33 Dose: 250 mg Documented By: WESLY Calcium Carbonate/Cholecalciferol (Calcium + Vitamin D 250 Mg Tablet) 250 mg PO DAILY [facility] Last Admin: 04/04/24 09:32 Dose: 250 mg Documented By: WESLY Cholestyramine Resin (Cholestyramine (With Sugar) 4 Gm Powd.Pack) 2 gm PO BIDWM [facility] Last Admin: 04/04/24 09:34 Dose: 2 gm Documented By: WESLY Ferrous Sulfate (Ferrous Sulfate 324 Mg Tablet.) 324 mg PO BID [facility] Last Admin: 04/04/24 09:35 Dose: 324 mg Documented By: WESLY Fluconazole (Fluconazole 100 Mg Tablet) 100 mg PO DAILY [facility] Last Admin: 04/04/24 09:33 Dose: 100 mg Documented By: WESLY Octreotide Acetate 500 mcg/ (Sodium Chloride) 501 mls @ 50.1 mls/hr IVCONT .Q10H [facility] Last Admin: 04/04/24 09:30 Dose: 50 mcg/hr, 50.1 mls/hr Documented By: WESLY Melatonin (Melatonin 3 Mg Tablet) 6 mg PO BEDTIME PRN PRN Reason: Insomnia Meropenem (Meropenem 500 Mg Vial) 500 mg IVPUSH Q24H [facility] Last Admin: 04/03/24 17:33 Dose: 500 mg Documented By: BROWeston Metoprolol Tartrate (Metoprolol Tartrate 25 Mg Tablet) 25 mg PO Q6H [facility]; Protocol Last Admin: 04/04/24 09:32 Dose: 25 mg Documented By: WESLY Ondansetron HCl (Ondansetron Hcl 4 Mg/2 Ml Vial) 4 mg IVPUSH Q8H PRN PRN Reason: Nausea and Vomiting Pantoprazole Sodium (Pantoprazole Sodium 40 Mg/10 Ml Vial) 40 mg IVPUSH BID@0630,1630 [facility] Last Admin: 04/04/24 05:22 Dose: 40 mg Documented By: ELODIA Vancomycin HCl (Vancomycin Hcl 125 Mg Capsule) 250 mg PO Q6H [facility] Last Admin: 04/04/24 09:32 Dose: 250 mg Documented By: WESLY Labs 04/04/24 06:33 04/04/24 06:33 Labs: Laboratory Results - last 24 hr 04/04/24 06:33 MCV 100.0 H MCH 32.3 MCHC 32.3 RDW 21.0 H Plt Count 57 L D MPV 13.0 H Absolute Nucleated RBC 0.000 Nucleated RBC % (auto) 0.0 Anion Gap 10 L Estim Creat Clear Calc 20.2 Estimated GFR 20 Random Glucose 90 Calcium 6.7 L Microbiology Microbiology Results: Microbiology 04/02/24 17:16 Urine Culture - Preliminary Urine clean catch - Clean Catch Midstream Yeast 04/02/24 12:25 Catheter Tip Culture - Preliminary Catheter Tip - Other No growth after 2 days 04/02/24 14:08 Blood Culture - Preliminary Blood - Venous No growth after 24 hours. 04/02/24 14:08 Blood Culture - Preliminary Blood - Venous No growth after 24 hours. Assessment and Plan (1) Thrombocytopenia: Status: Acute (2) Acute blood loss anemia: Status: Acute Assessment and Plan: 78-year-old male with history of ESRD on HD MWF, colorectal cancer status post low anterior resection with diverting loop ileostomy and reversal at [facility], recurrent c diff, chronic R hydonephrosis, and atrial fibrillation on Eliquis who presents to the emergency department on 03/25/24 with persistent diarrhea 3-4x/day with associated weakness, was transfered to ICU on same day due to shock/hypotension, hospital course complicated by bacteremia and GIB with acute blood loss anemia Diarrhea, h/o Cdif, negative Cdif this time. Po Vancomycin 125 mg qid while on antibiotics and 48 h after and then 125 m,w,sun per ID recommendation Shock/hypotension, was on pressors in icu, resolved. 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 contamination ,hd catheter -tip culture pending Pleural fluid is not enough for tapping. As per the surgery clinically does not look look bowel obstruction, discussed with the Urology-since patient does not produce much urine at baseline, and CT abdomen finding looks unchanged right-sided hydro-recommended to repeat culture urine pending . In addition initial CT scan shows question of CBD dilation, LFTs are normal- patient does not have abdominal pain-GI recommended MRCP to further evaluate. Above was discussed with ID and Nephro. Added repeat blood culture also to seek clearance of bacteremia. Urology evaluation pending GI bleeding acute blood loss anemia s/p 2 units of RBC, transfuse 1 unit today during dialysis S/p EGD on 03/29 : gastritis,duodenitis candidal esophagitis-added fluconazole(d/w GI). 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 Thrombocytopenia, acute on chronic: Hematology workup added, iron and TIBC low, LDH mildly elevated Platelets improving to 45, H&H is flactuating from 8 to 8.5 monitor CBC. End-stage renal disease on HD MWF Acute Lactic acidosis- likely secondary to dehydration and ESRD Chronic Atrial fibrillation, Hold eliquis in light of recent gib and low platlets will ask GI and profound anemia, requireing multiple transfusion hr flactautes on amio and metoprolol prn ,add cardizem if bp allows , bp is lower side also. Quality Stroke Does the patient have a stroke diagnosis?: No VTE Prior VTE?: No VTE Risk Level:: Medical - moderate - high VTE Device Contraindication: Treatment Not Indicated VTE Drug Contraindication: N/A - Med Ordered
--- NOTE | 2024-04-04 15:53 | MHC.CM.PN ---
emr reviewed, pt w/multiple medical issues, mrcp completed today, pt w/+bc's, repeat pending, urine +for yeast, cm will cont to follow dc needs.
[2024-04-04] MEDS: Meropenem 500 MG VIAL IVPUSH (17:22)
[2024-04-05] VITALS (8 sets, daily range): BP systolic 132–143; BP diastolic 64–68; PULSE 59–66; RESP 14–18; TEMP 35.9–37.1; O2SAT 98–100
[2024-04-05] MEDS: Octreotide Acetate 500 MCG in 0.9 % Sodium Chloride 500 ML 50.1 MCG IVCONT ×2 (04:07→15:25)
[2024-04-05] MEDS: vancomycin HCL 125 MG CAPSULE 250 MG PO ×2 (04:07→10:58)
[2024-04-05] MEDS: Pantoprazole Sodium 40 MG/10 ML VIAL IVPUSH ×2 (05:14→17:32)
[2024-04-05 07:46] LABS: Anion Gap 10 (12-20); Blood Urea Nitrogen 26 mg/dL (9-16); Calcium 6.6 mg/dL (8.4-10.2); Carbon Dioxide 23 mmol/L (22-29); Chloride 112 mmol/L (96-108); Creatinine Clr Calc Pharmacy 18.1; Estimated Glomerular Filt Rate 18; Glucose Random 88 mg/dL (60-115); Potassium 3.7 mmol/L (3.3-5.1); Sodium 141 mmol/L (135-145)
[2024-04-05] MEDS: Amiodarone HCL 200 MG TABLET PO (08:43)
[2024-04-05] MEDS: Cholestyramine (With Sugar) 4 GM POWD.PACK 2 GM PO ×2 (08:43→17:32)
[2024-04-05] MEDS: Calcium + Vitamin D 250 MG TABLET PO (08:43)
[2024-04-05] MEDS: Fluconazole 100 MG TABLET PO (08:43)
[2024-04-05] MEDS: Ferrous Sulfate 324 MG TABLET.DR PO ×2 (08:43→19:42)
[2024-04-05] MEDS: Ascorbic Acid 250 MG TABLET PO ×2 (08:43→19:42)
[2024-04-05] MEDS: Loperamide HCl 2 MG CAPSULE PO ×2 (10:59→22:44)
--- NOTE | 2024-04-05 16:31 | HO.PM.IMPN ---
Subjective Subjective Date of Service: 04/05/24 Interval History: anemia ,diarrhae Review of Systems denies any chest pain or sob has some diarrhae Physical Exam Vital Signs: Vital Signs: Last Vital Signs Temp 98.2 F 04/05/24 15:55 Pulse 60 04/05/24 15:55 Resp 18 04/05/24 15:55 BP 143/67 H 04/05/24 15:55 Pulse Ox 99 04/05/24 15:55 O2 Del Method Room Air 04/05/24 15:55 O2 Flow Rate 1 04/05/24 11:56 BMI result Body Mass Index 25.1 General: AO X 3, no acute distress Resp: CTA bilateral CVS: S1,S2,RRR GI: +BS, NT, no distention Skin: No rash Neuro: motor grossly intact Psych: appropriate affect Objective Data Active Medications Acetaminophen (Acetaminophen 325 Mg Tablet) 650 mg PO Q6H PRN PRN Reason: Pain, Mild 1-3,fever,headache Last Admin: 03/30/24 15:49 Dose: 650 mg Documented By: LEAH Amiodarone HCl (Amiodarone Hcl 200 Mg Tablet) 200 mg PO DAILY [facility] Last Admin: 04/05/24 08:43 Dose: 200 mg Documented By: STEPHANIE Ascorbic Acid (Ascorbic Acid 250 Mg Tablet) 250 mg PO BID [facility] Last Admin: 04/05/24 08:43 Dose: 250 mg Documented By: STEPHANIE Calcium Carbonate/Cholecalciferol (Calcium + Vitamin D 250 Mg Tablet) 250 mg PO DAILY [facility] Last Admin: 04/05/24 08:43 Dose: 250 mg Documented By: STEPHANIE Cholestyramine Resin (Cholestyramine (With Sugar) 4 Gm Powd.Pack) 2 gm PO BIDWM [facility] Last Admin: 04/05/24 08:43 Dose: 2 gm Documented By: STEPHANIE Ferrous Sulfate (Ferrous Sulfate 324 Mg Tablet.) 324 mg PO BID [facility] Last Admin: 04/05/24 08:43 Dose: 324 mg Documented By: STEPHANIE Fluconazole (Fluconazole 100 Mg Tablet) 100 mg PO DAILY [facility] Last Admin: 04/05/24 08:43 Dose: 100 mg Documented By: STEPHANIE Octreotide Acetate 500 mcg/ (Sodium Chloride) 501 mls @ 50.1 mls/hr IVCONT .Q10H [facility] Last Admin: 04/05/24 15:25 Dose: 50 mcg/hr, 50.1 mls/hr Documented By: BROWeston Melatonin (Melatonin 3 Mg Tablet) 6 mg PO BEDTIME PRN PRN Reason: Insomnia Meropenem (Meropenem 500 Mg Vial) 500 mg IVPUSH Q24H [facility] Last Admin: 04/04/24 17:22 Dose: 500 mg Documented By: KARENOTPAKalani Metoprolol Tartrate (Metoprolol Tartrate 25 Mg Tablet) 25 mg PO Q6H [facility]; Protocol Last Admin: 04/05/24 10:59 Dose: Not Given Documented By: STEPHANIE Non-Admin Reason: Decreased Heart Rate Ondansetron HCl (Ondansetron Hcl 4 Mg/2 Ml Vial) 4 mg IVPUSH Q8H PRN PRN Reason: Nausea and Vomiting Pantoprazole Sodium (Pantoprazole Sodium 40 Mg/10 Ml Vial) 40 mg IVPUSH BID@0630,1630 [facility] Last Admin: 04/05/24 05:14 Dose: 40 mg Documented By: ELODIA Labs 04/04/24 06:33 04/05/24 06:38 Labs: Laboratory Results - last 24 hr 04/05/24 06:38 Anion Gap 10 L Estim Creat Clear Calc 18.1 Estimated GFR 18 Random Glucose 88 Calcium 6.6 L Microbiology Microbiology Results: Microbiology 04/02/24 12:25 Catheter Tip Culture - Final Catheter Tip - Other No growth after 3 days. 04/02/24 17:16 Urine Culture - Final Urine clean catch - Clean Catch Midstream Cristal albicans 04/02/24 14:08 Blood Culture - Preliminary Blood - Venous No growth after 48 hours. 04/02/24 14:08 Blood Culture - Preliminary Blood - Venous No growth after 48 hours. Assessment and Plan (1) Thrombocytopenia: Status: Acute (2) Acute blood loss anemia: Status: Acute Assessment and Plan: 78-year-old male with history of ESRD on HD MWF, colorectal cancer status post low anterior resection with diverting loop ileostomy and reversal at [facility], recurrent c diff, chronic R hydonephrosis, and atrial fibrillation on Eliquis who presents to the emergency department on 03/25/24 with persistent diarrhea 3-4x/day with associated weakness, was transfered to ICU on same day due to shock/hypotension, hospital course complicated by bacteremia and GIB with acute blood loss anemia Diarrhea, h/o Cdif, negative Cdif this time. Po Vancomycin 125 mg qid while on antibiotics and 48 h after and then 125 m,w,sun per ID recommendation Shock/hypotension, was on pressors in icu, resolved. 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 contamination ,hd catheter -tip culture pending Pleural fluid is not enough for tapping. As per the surgery clinically does not look look bowel obstruction, discussed with the Urology-since patient does not produce much urine at baseline, and CT abdomen finding looks unchanged right-sided hydro-recommended to repeat culture urine pending . In addition initial CT scan shows question of CBD dilation, LFTs are normal-patient does not have abdominal pain-GI recommended MRCP to further evaluate. Above was discussed with ID and Nephro. Added repeat blood culture also to seek clearance of bacteremia. d/w urology-possible cystoscopy next week GI bleeding acute blood loss anemia s/p 2 units of RBC, transfuse 1 unit today during dialysis S/p EGD on 03/29 : gastritis,duodenitis candidal esophagitis-added fluconazole(d/w GI). 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 Thrombocytopenia, acute on chronic: Hematology workup added, iron and TIBC low, LDH mildly elevated Platelets improving to 45, H&H is flactuating from 8 to 8.5 monitor CBC. End-stage renal disease on HD MWF Acute Lactic acidosis- likely secondary to dehydration and ESRD Chronic Atrial fibrillation, Hold eliquis in light of recent gib and low platlets will ask GI and profound anemia, requireing multiple transfusion hr flactautes on amio and metoprolol prn ,add cardizem if bp allows , bp is lower side also. Quality Stroke Does the patient have a stroke diagnosis?: No VTE Prior VTE?: No VTE Risk Level:: Medical - moderate - high VTE Device Contraindication: Treatment Not Indicated VTE Drug Contraindication: N/A - Med Ordered
[2024-04-05] MEDS: Metoprolol Tartrate 25 MG TABLET PO (17:32)
[2024-04-05] MEDS: Meropenem 500 MG VIAL IVPUSH (17:35)
--- NOTE | 2024-04-05 18:53 | PC.NURSE ---
Patient spent most of the day in bed, did get oob to the recliner chair 1.5 hrs. 2 assist and walker, patient had a hard time getting up to standing, patient c/o weakness to bilat legs. Patient had multiple small, liquid dark stools on the bed root. 1L via NC intermittently. Patient tolerated meals, compliant with medication. Metoprolol dose held once for HR of 59. VSS
[2024-04-06] VITALS (7 sets, daily range): BP systolic 137–153; BP diastolic 65–69; PULSE 58–63; RESP 14–18; TEMP 36.1–37; O2SAT 98–100
[2024-04-06] MEDS: Octreotide Acetate 500 MCG in 0.9 % Sodium Chloride 500 ML 50.1 MCG IVCONT ×3 (01:58→20:50)
[2024-04-06] MEDS: Pantoprazole Sodium 40 MG/10 ML VIAL IVPUSH (05:05)
--- NOTE | 2024-04-06 07:58 | HO.PM.IMPN ---
Subjective Subjective Date of Service: 04/06/24 Interval History: klebsiela bactermia need hd catheter possible cystoscopy louis Review of Systems no abd pain has some diarrahae Physical Exam Vital Signs: Vital Signs: Last Vital Signs Temp 97.7 F 04/06/24 07:15 Pulse 60 04/06/24 07:15 Resp 18 04/06/24 07:15 BP 138/66 04/06/24 07:15 Pulse Ox 100 04/06/24 07:15 O2 Del Method Nasal Cannula 04/06/24 07:15 O2 Flow Rate 1 04/06/24 07:15 BMI result Body Mass Index 25.1 General: AO X 3, no acute distress Resp: air entry is fair ,slightly diminshed at bases ,no rales or wheezing CVS: S1,S2,RRR GI: +BS, NT, no distention Skin: No rash Neuro: motor grossly intact Psych: appropriate affect Objective Data Active Medications Acetaminophen (Acetaminophen 325 Mg Tablet) 650 mg PO Q6H PRN PRN Reason: Pain, Mild 1-3,fever,headache Last Admin: 03/30/24 15:49 Dose: 650 mg Documented By: LEAH Amiodarone HCl (Amiodarone Hcl 200 Mg Tablet) 200 mg PO DAILY [facility] Last Admin: 04/05/24 08:43 Dose: 200 mg Documented By: STEPHANIE Ascorbic Acid (Ascorbic Acid 250 Mg Tablet) 250 mg PO BID [facility] Last Admin: 04/05/24 19:42 Dose: 250 mg Documented By: ELODIA Calcium Carbonate/Cholecalciferol (Calcium + Vitamin D 250 Mg Tablet) 250 mg PO DAILY [facility] Last Admin: 04/05/24 08:43 Dose: 250 mg Documented By: STEPHANIE Cholestyramine Resin (Cholestyramine (With Sugar) 4 Gm Powd.Pack) 2 gm PO BIDWM [facility] Last Admin: 04/05/24 17:32 Dose: 2 gm Documented By: STEPHANIE Ferrous Sulfate (Ferrous Sulfate 324 Mg Tablet.Dr) 324 mg PO BID [facility] Last Admin: 04/05/24 19:42 Dose: 324 mg Documented By: ELODIA Fluconazole (Fluconazole 100 Mg Tablet) 100 mg PO DAILY [facility] Last Admin: 04/05/24 08:43 Dose: 100 mg Documented By: HO.DOBROB Octreotide Acetate 500 mcg/ (Sodium Chloride) 501 mls @ 50.1 mls/hr IVCONT .Q10H [facility] Last Admin: 04/06/24 01:58 Dose: 50 mcg/hr, 50.1 mls/hr Documented By: ELODIA Loperamide HCl (Loperamide Hcl 2 Mg Capsule) 2 mg PO Q6H PRN PRN Reason: Diarrhea Last Admin: 04/05/24 22:44 Dose: 2 mg Documented By: ELODIA Melatonin (Melatonin 3 Mg Tablet) 6 mg PO BEDTIME PRN PRN Reason: Insomnia Meropenem (Meropenem 500 Mg Vial) 500 mg IVPUSH Q24H [facility] Last Admin: 04/05/24 17:35 Dose: 500 mg Documented By: STEPHANIE Metoprolol Tartrate (Metoprolol Tartrate 25 Mg Tablet) 25 mg PO Q6H [facility]; Protocol Last Admin: 04/06/24 03:50 Dose: Not Given Documented By: ELODIA Non-Admin Reason: per protocol Ondansetron HCl (Ondansetron Hcl 4 Mg/2 Ml Vial) 4 mg IVPUSH Q8H PRN PRN Reason: Nausea and Vomiting Pantoprazole Sodium (Pantoprazole Sodium 40 Mg/10 Ml Vial) 40 mg IVPUSH BID@0630,1630 [facility] Last Admin: 04/06/24 05:05 Dose: 40 mg Documented By: ELODIA Labs 04/04/24 06:33 04/05/24 06:38 Microbiology Microbiology Results: Microbiology 04/02/24 12:25 Catheter Tip Culture - Final Catheter Tip - Other No growth after 3 days. 04/02/24 17:16 Urine Culture - Final Urine clean catch - Clean Catch Midstream Michael albicans Assessment and Plan (1) Thrombocytopenia: Status: Acute (2) Acute blood loss anemia: Status: Acute Assessment and Plan: 78-year-old male with history of ESRD on HD MWF, colorectal cancer status post low anterior resection with diverting loop ileostomy and reversal at [facility], recurrent c diff, chronic R hydonephrosis, and atrial fibrillation on Eliquis who presents to the emergency department on 03/25/24 with persistent diarrhea 3-4x/day with associated weakness, was transfered to ICU on same day due to shock/hypotension, hospital course complicated by bacteremia and GIB with acute blood loss anemia Diarrhea, h/o Cdif, negative Cdif this time. Po Vancomycin 125 mg qid while on antibiotics and 48 h after and then 125 m,w,sun per ID recommendation Shock/hypotension, was on pressors in icu, resolved. 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 As per the surgery clinically does not look look bowel obstruction, discussed with the Urology-since patient does not produce much urine at baseline. and CT abdomen finding looks unchanged right-sided hydro-recommended to repeat culture urine pending . In addition initial CT scan shows question of CBD dilation, LFTs are normal-patient does not have abdominal pain. 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 on mrcpComplex hemorrhagic exophytic lesion, left kidney.Blood products versus purulent material versus neoplasm resulting in dilatation of the right pelvicalyceal system.-d/w urology-possible cystoscopy next week Above was discussed with ID -urine culture -michael (?colonization) ,Repeat blood cultures neg@24hrs , urine culture -michael (?colonization) ,hd catheter -tip culture neg prelimiary. GI bleeding acute blood loss anemia s/p 2 units of RBC, transfuse 1 unit today during dialysis S/p EGD on 03/29 : gastritis,duodenitis candidal esophagitis-added fluconazole(d/w GI). 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 Thrombocytopenia, acute on chronic: Hematology workup added, iron and TIBC low, LDH mildly elevated Platelets improving to 45, H&H is flactuating from 8 to 8.5 monitor CBC. End-stage renal disease on HD MWF Acute Lactic acidosis- likely secondary to dehydration and ESRD. Chronic Atrial fibrillation, Hold eliquis in light of recent gib and low platlets will ask GI and profound anemia, requireing multiple transfusion hr stable on amio and metoprolol. Quality Stroke Does the patient have a stroke diagnosis?: No VTE Prior VTE?: No VTE Risk Level:: Medical - moderate - high VTE Device Contraindication: Treatment Not Indicated VTE Drug Contraindication: N/A - Med Ordered
[2024-04-06] MEDS: Ferrous Sulfate 324 MG TABLET.DR PO ×2 (08:33→20:49)
[2024-04-06] MEDS: Cholestyramine (With Sugar) 4 GM POWD.PACK 2 GM PO ×2 (08:33→17:21)
[2024-04-06] MEDS: Fluconazole 100 MG TABLET PO (08:33)
[2024-04-06] MEDS: Amiodarone HCL 200 MG TABLET PO (08:33)
[2024-04-06] MEDS: Ascorbic Acid 250 MG TABLET PO ×2 (08:33→20:49)
[2024-04-06] MEDS: Calcium + Vitamin D 250 MG TABLET PO (08:33)
[2024-04-06] MEDS: Metoprolol Tartrate 25 MG TABLET PO ×3 (10:27→22:14)
[2024-04-06] MEDS: Loperamide HCl 2 MG CAPSULE PO ×3 (10:30→22:14)
[2024-04-06] MEDS: Meropenem 500 MG VIAL IVPUSH (17:21)
[2024-04-07] VITALS (18 sets, daily range): BP systolic 117–168; BP diastolic 59–80; PULSE 60–89; RESP 12–20; TEMP 36.2–37.9; O2SAT 89–100
[2024-04-07] MEDS: Metoprolol Tartrate 25 MG TABLET PO ×3 (04:06→22:25)
[2024-04-07] MEDS: Loperamide HCl 2 MG CAPSULE PO (04:06)
[2024-04-07] MEDS: Octreotide Acetate 500 MCG in 0.9 % Sodium Chloride 500 ML 50.1 MCG IVCONT ×2 (06:42→17:53)
[2024-04-07 06:52] LABS: Hematocrit 27.4 % (42.0-52.0); Hemoglobin 8.7 g/dl (14.0-18.0); Mean Corpuscular HGB Conc 31.8 g/dl (31.0-36.0); Mean Corpuscular Hemoglobin 32.6 pg (27.0-33.0); Mean Corpuscular Volume 102.6 fL (80.0-98.0); Mean Platelet Volume 11.5 fL (9.4-12.4); Red Blood Count 2.67 X10*6/uL (4.60-5.80); Red Cell Distribution Width 19.5 % (11.0-16.0); White Blood Count 7.2 X10*3/uL (4.8-10.8)
[2024-04-07 06:55] LABS: Platelet Count 73 X10*3/uL (160-400)
[2024-04-07 07:17] LABS: Anion Gap 8 (12-20); Blood Urea Nitrogen 30 mg/dL (9-16); Calcium 6.6 mg/dL (8.4-10.2); Carbon Dioxide 22 mmol/L (22-29); Chloride 119 mmol/L (96-108); Creatinine Clr Calc Pharmacy 16.7; Estimated Glomerular Filt Rate 16; Glucose Random 84 mg/dL (60-115); Potassium 3.8 mmol/L (3.3-5.1); Sodium 145 mmol/L (135-145)
[2024-04-07] MEDS: ceFAZolin Sodium/Dextrose,Iso 2 GM/50 ML PIGGYBACK IV (08:50)
[2024-04-07] MEDS: fentaNYL citrate/PF 100 MCG/2 ML VIAL 50 MCG IVPUSH (09:25)
--- NOTE | 2024-04-07 09:45 | PCN2_ITS ---
Brief Operative Note Date of procedure: 04/07/24 Pre-op diagnosis: Needs custodial access for HD. Bacteremia resolved Post-op diagnosis: same Procedure: Left IJ 27 cm Permacath placed using US and FL. Tip in right atrium. Ok for use.
--- NOTE | 2024-04-07 10:53 | MHC.CM.PN ---
EMR REVIEWED, PER HOSPITALIST PT WILL REMAIN INPT FOR NEW PERMACATH PLACEMENT W/DIALYSIS DUE TODAY AND CYSTOSCOPY, NO PLAN FOR DC AT THIS TIME, CM WILL CONT TO FOLLOW DC NEEDS.
[2024-04-07] MEDS: Loperamide HCl 2 MG CAPSULE 4 MG PO ×2 (11:05→19:43)
[2024-04-07] MEDS: Ascorbic Acid 250 MG TABLET PO ×2 (11:06→19:42)
[2024-04-07] MEDS: Amiodarone HCL 200 MG TABLET PO (11:06)
[2024-04-07] MEDS: Calcium + Vitamin D 250 MG TABLET PO (11:06)
[2024-04-07] MEDS: Fluconazole 100 MG TABLET PO (11:06)
[2024-04-07] MEDS: Ferrous Sulfate 324 MG TABLET.DR PO ×2 (11:06→19:42)
--- NOTE | 2024-04-07 12:41 | MHC.CLN ---
F/U PATIENT IS NPO TODAY FOR PROCEDURE WHEN DIET TO RESUME, RE-START PREVIOUS DIET: 2 GRAM SODIUM, LOW POTASSIUM, LOW PHOSPHORUS PATIENT WITH ESRD ON HEMODIALYSIS SKIN WITH STAGE II TO COCCYX RE-START ENSURE CLEAR TID TO PROMOTE WOUND HEALING SUPPLEMENT TO PROVIDE 720 KCALS, 24 G PROTEIN MONITOR FOR DIET ADVANCEMENT
--- NOTE | 2024-04-07 14:06 | P.PNUR_ITS ---
Subjective Subjective Date of Service: 04/07/24 Interval history: Hospitalist would like right side cleared from renal mass Prior imaging and suggested blood within right renal pelvis This may have been a source of infection Plan for check ureteroscopy today Physical Exam 2 Vital Signs: Vital Signs: Last Vital Signs Temp 98.5 F 04/07/24 11:58 Pulse 60 04/07/24 11:58 Resp 17 04/07/24 11:58 BP 168/77 H 04/07/24 11:58 Pulse Ox 94 04/07/24 11:58 O2 Del Method Room Air 04/07/24 11:58 O2 Flow Rate 1 04/07/24 08:00 BMI result Body Mass Index 25.1 Const: General: cooperative, healthy appearing, comfortable and no acute distress Orientation/consciousness: patient oriented x3 HEENT: Face and sinus: Yes normal facial exam Mouth: moist mucous membranes Neck: Neck: Yes normal visual inspection, Yes full ROM and Yes trachea midline Chest: Chest palpation & inspection: normal inspection of the chest Resp: Effort & Inspection: normal respiratory effort, able to speak in complete sentences and no respiratory distress GI: Inspection: Yes normal to inspection Back/Spine/Pelvis: Cervical Spine: normal cervical lordosis Thoracic/Lumbar Spine: thoracic and lumbar spine normal to inspection Skin: General skin exam: no rashes or lesions noted Neuro: General: patient oriented x3, tone normal and moves all extremities Extrem: General: Yes normal to inspection and Yes capillary refill normal Urology Results Labs 04/07/24 06:04 04/07/24 06:04 Labs: Laboratory Results - last 24 hr 04/07/24 06:04 WBC 7.2 RBC 2.67 L Hgb 8.7 L Hct 27.4 L MCV 102.6 H MCH 32.6 MCHC 31.8 RDW 19.5 H Plt Count 73 L D MPV 11.5 Absolute Nucleated RBC 0.000 Nucleated RBC % (auto) 0.0 Sodium 145 Potassium 3.8 Chloride 119 H Carbon Dioxide 22 Anion Gap 8 L BUN 30 H Creatinine 3.69 H Estim Creat Clear Calc 16.7 Estimated GFR 16 Random Glucose 84 Calcium 6.6 L Progress Note: A&P Assessment and plan (1) Septic shock: Status: Acute Plan Plan cystoscopy, right retrograde, right ureteroscopy diagnostic Time Spent With Patient Time: Total time managing care of this patient today ____ minutes. Progress Note: Quality Stroke Does the patient have a stroke diagnosis?: No
--- NOTE | 2024-04-07 15:22 | HO.ANESPROP2 ---
HPI - Anesthesia Eval Consult details Narrative: for cysto, ureteroscopy PMFSH Active Problems Active Problems: All Active Problems Thrombocytopenia (Acute) Acute blood loss anemia (Acute) Septic shock (Acute) PAF (paroxysmal atrial fibrillation) (Acute) Pacemaker (Acute) Ileus (Acute) Acidosis, lactic (Acute) End stage renal disease (Acute) Recurrent Clostridioides difficile diarrhea (Acute) Sepsis (Acute) C. difficile colitis (Acute) C. difficile colitis (Acute) Physical deconditioning (Acute) Enteropathogenic Escherichia coli infection (Acute) Acute renal failure (Acute) BPH (benign prostatic hyperplasia) (Acute) Renal cyst (Acute) Rectal carcinoma (Acute) Atrial fibrillation with rapid ventricular response (Acute) Chronic anticoagulation (Acute) Sinus bradycardia (Acute) Normocytic anemia (Acute) Encounter for interrogation of cardiac pacemaker (Acute) Rectal mass (Acute) Malignant neoplasm of rectum (Acute) Past Medical History Medical History Recto-vesical fistula End stage renal disease Sick sinus syndrome Postoperative hematoma involving digestive system following digestive system procedure Aftercare following left shoulder joint replacement surgery Pacemaker OA (osteoarthritis) Borderline hyperlipidemia Obesity HTN (hypertension) EtOH dependence Mild cognitive impairment Inhibited sex excitement Atrial fibrillation Cancer of kidney High cholesterol Hypertension Family History Family History Mother Heart problem Family history of problems with anesthesia: No Surgical History History of Problems with Anesthesia: No Social History Social History Household Members: Significant Other Housing: House Do you presently have visiting nurse or other home services: No Alcohol intake: former Comment: refusing alarms Patient Tobacco Use Status: Former Tobacco user Tobacco use type: Cigarette e-Cigarette/Vaping Use: Never Used Advance Directives Date on File: 11/29/22 service: Yes Meds Allergies Allergy/AdvReac Type Severity Reaction Status Date / Time No Known Allergies [NKA] Allergy Mild NOT Verified 03/25/24 03:29 APPLICABLE Active Medications: Current Medications Acetaminophen (Acetaminophen 325 Mg Tablet) 650 mg PO Q6H PRN PRN Reason: Pain, Mild 1-3,fever,headache Last Admin: 03/30/24 15:49 Dose: 650 mg Amiodarone HCl (Amiodarone Hcl 200 Mg Tablet) 200 mg PO DAILY [facility] Last Admin: 04/07/24 11:06 Dose: 200 mg Ascorbic Acid (Ascorbic Acid 250 Mg Tablet) 250 mg PO BID [facility] Last Admin: 04/07/24 11:06 Dose: 250 mg Calcium Carbonate/Cholecalciferol (Calcium + Vitamin D 250 Mg Tablet) 250 mg PO DAILY [facility] Last Admin: 04/07/24 11:06 Dose: 250 mg Cholestyramine Resin (Cholestyramine (With Sugar) 4 Gm Powd.Pack) 2 gm PO BIDWM [facility] Last Admin: 04/07/24 11:02 Dose: Not Given Ferrous Sulfate (Ferrous Sulfate 324 Mg Tablet.) 324 mg PO BID [facility] Last Admin: 04/07/24 11:06 Dose: 324 mg Fluconazole (Fluconazole 100 Mg Tablet) 100 mg PO DAILY [facility] Last Admin: 04/07/24 11:06 Dose: 100 mg Octreotide Acetate 500 mcg/ (Sodium Chloride) 501 mls @ 50.1 mls/hr IVCONT .Q10H [facility] Last Admin: 04/07/24 06:42 Dose: 50 mcg/hr, 50.1 mls/hr Loperamide HCl (Loperamide Hcl 2 Mg Capsule) 4 mg PO Q4H PRN PRN Reason: Diarrhea Last Admin: 04/07/24 11:05 Dose: 4 mg Melatonin (Melatonin 3 Mg Tablet) 6 mg PO BEDTIME PRN PRN Reason: Insomnia Meropenem (Meropenem 500 Mg Vial) 500 mg IVPUSH Q24H [facility] Last Admin: 04/06/24 17:21 Dose: 500 mg Metoprolol Tartrate (Metoprolol Tartrate 25 Mg Tablet) 25 mg PO Q6H [facility]; Protocol Last Admin: 04/07/24 11:06 Dose: 25 mg Ondansetron HCl (Ondansetron Hcl 4 Mg/2 Ml Vial) 4 mg IVPUSH Q8H PRN PRN Reason: Nausea and Vomiting Home Medications ?Medication ?Instructions ?Recorded ?Confirmed ?Last Taken ?Type clindamycin phosphate 1 % lotion 1 appl topical BID PRN Acne 03/08/24 03/25/24 Unknown History clobetasol 0.05 % topical cream 1 appl topical BID PRN itching/rash 03/08/24 03/25/24 Unknown History diltiazem HCl 240 mg 240 mg PO DAILY 03/08/24 03/25/24 Unknown History capsule,extended release 24 hr, controlled (DILT-XR) lisinopril 5 mg tablet 5 mg PO DAILY 03/08/24 03/25/24 Unknown History pramoxine 1 % lotion 1 appl topical BID PRN Itching 03/08/24 03/25/24 Unknown History Exam Height,Weight and Vital Signs: Height 5 ft 9 in Weight 77.111 kg Last Vital Signs Temp 98.5 F 04/07/24 11:58 Pulse 60 04/07/24 11:58 Resp 17 04/07/24 11:58 BP 168/77 H 04/07/24 11:58 Pulse Ox 94 04/07/24 11:58 O2 Del Method Room Air 04/07/24 11:58 O2 Flow Rate 1 04/07/24 08:00 Pertinent Lab Results Pertinent Lab Results: Laboratory Tests 03/25/24 03/25/24 03/25/24 03:02 03:08 06:26 WBC 14.5 H RBC 2.81 L Hgb 9.8 L Hct 31.3 L MCV 111.4 H MCH 34.9 H MCHC 31.3 RDW 25.7 H Plt Count 76 L MPV 12.5 H Immature Gran % (Auto) 1.0 H Neut % (Auto) 82.4 H Lymph % (Auto) 10.8 L [place] % (Auto) 5.7 Eos % (Auto) 0.0 Baso % (Auto) 0.1 Lymph # (Auto) 1.6 [place] # (Auto) 0.8 Eos # (Auto) 0.0 Baso # (Auto) 0.0 Abs Immat Gran (auto) 0.15 H Absolute Neuts (auto) 11.9 H Absolute Nucleated RBC 0.030 H Nucleated RBC % (auto) 0.2 Smear Tech's Comments Absolute Retic Percent Retic Immature Retic Fraction Retic Hgb Equivalent Hold Purple Top SEE NOTE PT 21.3 H INR 1.8 H Fibrinogen D-Dimer High Sensitivty VBG pH 7.34 VBG pCO2 42 VBG pO2 27 VBG HCO3 23 VBG O2 Saturation 31.0 VBG Base Excess -1.7 Sodium 142 Potassium 3.4 Chloride 105 Carbon Dioxide 19 L Anion Gap 21 H BUN 24 H Creatinine 4.16 H* Estim Creat Clear Calc 14.8 Estimated GFR 14 POC Glucose Random Glucose 78 Haptoglobin Lactic Acid 7.2 H* Lactic Acid F/U @ 2Hr 6.5 H* Calcium 7.0 L Phosphorus Magnesium Iron TIBC % Saturation Unsat Iron Binding Ferritin Total Bilirubin 0.8 Direct Bilirubin AST 39 H ALT 17 Alkaline Phosphatase 121 H Lactate Dehydrogenase Troponin I High Sens 77.2 H D Total Protein 5.2 L Albumin 1.8 L Lipase 5 L Vitamin B12 Folate Stool Occult Blood Stl C. cayetanensis PCR Stool Rotavirus A PCR Stl Adenov F / PCR Stool Astrovirus (PCR) Stool Campylobacter PCR Stool Cryptosporidium PCR Stl Sh Tox Pr E STEC PCR Stool E coli O157 PCR Stl Enterotoxigenic E PCR Stool EPEC (PCR) Stool EAEC (PCR) Stl E. histolytica PCR Stool Giardia Lamblia PCR Stl P. shigelloides PCR Stool Salmonella PCR Stool Sapovirus (PCR) Stl Shigella/EIEC PCR St Y.enterocolitica PCR Stool Vibrio (PCR) Stl Vibrio cholerae PCR Stl Norovirus GI/GII PCR Random Vancomycin C. difficile Tox B Gene Blood Type Antibody Screen Crossmatch 03/25/24 03/25/24 03/25/24 11:00 15:18 21:30 WBC RBC Hgb Hct MCV MCH MCHC RDW Plt Count MPV Immature Gran % (Auto) Neut % (Auto) Lymph % (Auto) [place] % (Auto) Eos % (Auto) Baso % (Auto) Lymph # (Auto) [place] # (Auto) Eos # (Auto) Baso # (Auto) Abs Immat Gran (auto) Absolute Neuts (auto) Absolute Nucleated RBC Nucleated RBC % (auto) Smear Tech's Comments Absolute Retic Percent Retic Immature Retic Fraction Retic Hgb Equivalent Hold Purple Top PT INR Fibrinogen D-Dimer High Sensitivty VBG pH VBG pCO2 VBG pO2 VBG HCO3 VBG O2 Saturation VBG Base Excess Sodium Potassium Chloride Carbon Dioxide Anion Gap BUN Creatinine Estim Creat Clear Calc Estimated GFR POC Glucose Random Glucose Haptoglobin Lactic Acid 3.1 H* Lactic Acid F/U @ 2Hr 1.3 Calcium Phosphorus Magnesium Iron TIBC % Saturation Unsat Iron Binding Ferritin Total Bilirubin Direct Bilirubin AST ALT Alkaline Phosphatase Lactate Dehydrogenase Troponin I High Sens Total Protein Albumin Lipase Vitamin B12 Folate Stool Occult Blood Stl C. cayetanensis PCR Not Detected Stool Rotavirus A PCR Not Detected Stl Adenov F PCR Not Detected Stool Astrovirus (PCR) Not Detected Stool Campylobacter PCR Not Detected Stool Cryptosporidium PCR Not Detected Stl Sh Tox Pr E STEC PCR Not Detected Stool E coli O157 PCR Not applicable Stl Enterotoxigenic E PCR Not Detected Stool EPEC (PCR) Detected A Stool EAEC (PCR) Not Detected Stl E. histolytica PCR Not Detected Stool Giardia Lamblia PCR Not Detected Stl P. shigelloides PCR Not Detected Stool Salmonella PCR Not Detected Stool Sapovirus (PCR) Not Detected Stl Shigella/EIEC PCR Not Detected St Y.enterocolitica PCR Not Detected Stool Vibrio (PCR) Not Detected Stl Vibrio cholerae PCR Not Detected Stl Norovirus GI/GII PCR Not Detected Random Vancomycin C. difficile Tox B Gene NEGATIVE Blood Type Antibody Screen Crossmatch 03/26/24 03/26/24 03/26/24 04:58 05:00 06:21 WBC 13.3 H 13.8 H RBC 1.64 L D 1.80 L Hgb 5.6 L* D 6.2 L* Hct 18.5 L* D 20.7 L* MCV 112.8 H 115.0 H MCH 34.1 H 34.4 H MCHC 30.3 L 30.0 L RDW 25.3 H 25.4 H Plt Count 65 L 64 L MPV 12.2 12.3 Immature Gran % (Auto) 0.7 H Neut % (Auto) 88.1 H Lymph % (Auto) 4.3 L [place] % (Auto) 6.8 Eos % (Auto) 0.0 Baso % (Auto) 0.1 Lymph # (Auto) 0.6 L [place] # (Auto) 0.9 Eos # (Auto) 0.0 Baso # (Auto) 0.0 Abs Immat Gran (auto) 0.09 H Absolute Neuts (auto) 12.2 H Absolute Nucleated RBC 0.020 H 0.020 H Nucleated RBC % (auto) 0.2 0.1 Smear Tech's Comments VERIFIED Absolute Retic Percent Retic Immature Retic Fraction Retic Hgb Equivalent Hold Purple Top PT INR Fibrinogen D-Dimer High Sensitivty VBG pH 7.32 VBG pCO2 32 VBG pO2 64 VBG HCO3 16 L VBG O2 Saturation Not Reportable VBG Base Excess -8.3 Sodium 144 Potassium 3.0 L Chloride 114 H Carbon Dioxide 16 L Anion Gap 17 BUN 31 H Creatinine 4.36 H* Estim Creat Clear Calc 14.1 Estimated GFR 13 POC Glucose Random Glucose 65 Haptoglobin Lactic Acid Lactic Acid F/U @ 2Hr Calcium 6.4 L D Phosphorus Magnesium Iron TIBC % Saturation Unsat Iron Binding Ferritin Total Bilirubin Direct Bilirubin AST ALT Alkaline Phosphatase Lactate Dehydrogenase Troponin I High Sens Total Protein Albumin Lipase Vitamin B12 Folate Stool Occult Blood Stl C. cayetanensis PCR Stool Rotavirus A PCR Stl Adenov F 40/41 PCR Stool Astrovirus (PCR) Stool Campylobacter PCR Stool Cryptosporidium PCR Stl Sh Tox Pr E STEC PCR Stool E coli O157 PCR Stl Enterotoxigenic E PCR Stool EPEC (PCR) Stool EAEC (PCR) Stl E. histolytica PCR Stool Giardia Lamblia PCR Stl P. shigelloides PCR Stool Salmonella PCR Stool Sapovirus (PCR) Stl Shigella/EIEC PCR St Y.enterocolitica PCR Stool Vibrio (PCR) Stl Vibrio cholerae PCR Stl Norovirus GI/GII PCR Random Vancomycin C. difficile Tox B Gene Blood Type A Positive Antibody Screen NEGATIVE Crossmatch See Detail 03/26/24 03/26/24 03/27/24 10:00 17:46 04:50 WBC 13.3 H 12.4 H RBC 2.85 L D 2.61 L Hgb 9.4 L D 8.7 L Hct 28.5 L D 26.0 L MCV 100.0 H D 99.6 H MCH 33.0 33.3 H MCHC 33.0 33.5 RDW 22.9 H 23.8 H Plt Count 41 L D 33 L MPV 10.3 11.8 Immature Gran % (Auto) 0.9 H 0.9 H Neut % (Auto) 88.7 H 85.7 H Lymph % (Auto) 3.7 L 6.7 L [place] % (Auto) 6.5 6.4 Eos % (Auto) 0.1 0.2 Baso % (Auto) 0.1 0.1 Lymph # (Auto) 0.5 L 0.8 L [place] # (Auto) 0.9 0.8 Eos # (Auto) 0.0 0.0 Baso # (Auto) 0.0 0.0 Abs Immat Gran (auto) 0.12 H 0.11 H Absolute Neuts (auto) 11.8 H 10.6 H Absolute Nucleated RBC 0.000 0.000 Nucleated RBC % (auto) 0.0 0.0 Smear Tech's Comments Absolute Retic Percent Retic Immature Retic Fraction Retic Hgb Equivalent Hold Purple Top PT INR Fibrinogen D-Dimer High Sensitivty VBG pH VBG pCO2 VBG pO2 VBG HCO3 VBG O2 Saturation VBG Base Excess Sodium 140 Potassium 2.4 L* Chloride 106 Carbon Dioxide 21 L Anion Gap 15 BUN 21 H Creatinine 3.14 H Estim Creat Clear Calc 19.7 Estimated GFR 19 POC Glucose Random Glucose 134 H Haptoglobin Lactic Acid Lactic Acid F/U @ 2Hr Calcium 7.3 L D Phosphorus 2.5 L Magnesium 1.7 Iron TIBC % Saturation Unsat Iron Binding Ferritin Total Bilirubin 1.1 H Direct Bilirubin AST 21 ALT 14 Alkaline Phosphatase 82 Lactate Dehydrogenase Troponin I High Sens Total Protein 4.5 L Albumin 2.6 L Lipase Vitamin B12 Folate Stool Occult Blood POSITIVE Stl C. cayetanensis PCR Stool Rotavirus A PCR Stl Adenov F 40/ PCR Stool Astrovirus (PCR) Stool Campylobacter PCR Stool Cryptosporidium PCR Stl Sh Tox Pr E STEC PCR Stool E coli O157 PCR Stl Enterotoxigenic E PCR Stool EPEC (PCR) Stool EAEC (PCR) Stl E. histolytica PCR Stool Giardia Lamblia PCR Stl P. shigelloides PCR Stool Salmonella PCR Stool Sapovirus (PCR) Stl Shigella/EIEC PCR St Y.enterocolitica PCR Stool Vibrio (PCR) Stl Vibrio cholerae PCR Stl Norovirus GI/GII PCR Random Vancomycin 11.6 L C. difficile Tox B Gene Blood Type Antibody Screen Crossmatch 03/27/24 03/27/24 03/27/24 05:01 12:06 17:39 WBC RBC Hgb Hct MCV MCH MCHC RDW Plt Count MPV Immature Gran % (Auto) Neut % (Auto) Lymph % (Auto) [place] % (Auto) Eos % (Auto) Baso % (Auto) Lymph # (Auto) [place] # (Auto) Eos # (Auto) Baso # (Auto) Abs Immat Gran (auto) Absolute Neuts (auto) Absolute Nucleated RBC Nucleated RBC % (auto) Smear Tech's Comments Absolute Retic Percent Retic Immature Retic Fraction Retic Hgb Equivalent Hold Purple Top PT INR Fibrinogen D-Dimer High Sensitivty VBG pH 7.41 VBG pCO2 42 VBG pO2 57 VBG HCO3 27 H VBG O2 Saturation 88.0 VBG Base Excess 2.6 Sodium Potassium Chloride Carbon Dioxide Anion Gap BUN Creatinine Estim Creat Clear Calc Estimated GFR POC Glucose 186 H 100 Random Glucose Haptoglobin Lactic Acid Lactic Acid F/U @ 2Hr Calcium Phosphorus Magnesium Iron TIBC % Saturation Unsat Iron Binding Ferritin Total Bilirubin Direct Bilirubin AST ALT Alkaline Phosphatase Lactate Dehydrogenase Troponin I High Sens Total Protein Albumin Lipase Vitamin B12 Folate Stool Occult Blood Stl C. cayetanensis PCR Stool Rotavirus A PCR Stl Adenov F 40/41 PCR Stool Astrovirus (PCR) Stool Campylobacter PCR Stool Cryptosporidium PCR Stl Sh Tox Pr E STEC PCR Stool E coli O157 PCR Stl Enterotoxigenic E PCR Stool EPEC (PCR) Stool EAEC (PCR) Stl E. histolytica PCR Stool Giardia Lamblia PCR Stl P. shigelloides PCR Stool Salmonella PCR Stool Sapovirus (PCR) Stl Shigella/EIEC PCR St Y.enterocolitica PCR Stool Vibrio (PCR) Stl Vibrio cholerae PCR Stl Norovirus GI/GII PCR Random Vancomycin C. difficile Tox B Gene Blood Type Antibody Screen Crossmatch 03/28/24 03/28/24 03/28/24 05:04 05:19 05:20 WBC 7.6 RBC 2.28 L Hgb 7.6 L Hct 23.0 L MCV 100.9 H MCH 33.3 H MCHC 33.0 RDW 23.5 H Plt Count 17 L* MPV 13.0 H Immature Gran % (Auto) 1.5 H Neut % (Auto) 85.0 H Lymph % (Auto) 7.7 L [place] % (Auto) 5.0 Eos % (Auto) 0.7 Baso % (Auto) 0.1 Lymph # (Auto) 0.6 L [place] # (Auto) 0.4 Eos # (Auto) 0.1 Baso # (Auto) 0.0 Abs Immat Gran (auto) 0.11 H Absolute Neuts (auto) 6.4 Absolute Nucleated RBC 0.000 Nucleated RBC % (auto) 0.0 Smear Tech's Comments Absolute Retic Percent Retic Immature Retic Fraction Retic Hgb Equivalent Hold Purple Top PT INR Fibrinogen D-Dimer High Sensitivty VBG pH VBG pCO2 VBG pO2 VBG HCO3 VBG O2 Saturation VBG Base Excess Sodium 139 Potassium 2.6 L* Chloride 108 Carbon Dioxide 24 Anion Gap 10 L BUN 37 H Creatinine 3.84 H Estim Creat Clear Calc 16.1 Estimated GFR 15 POC Glucose Random Glucose 82 Haptoglobin Lactic Acid Lactic Acid F/U @ 2Hr Calcium 7.0 L Phosphorus 1.8 L Magnesium 1.6 Iron TIBC % Saturation Unsat Iron Binding Ferritin Total Bilirubin 0.9 Direct Bilirubin AST 14 ALT 10 Alkaline Phosphatase 82 Lactate Dehydrogenase Troponin I High Sens Total Protein 3.9 L Albumin 2.1 L Lipase Vitamin B12 Folate Stool Occult Blood Stl C. cayetanensis PCR Stool Rotavirus A PCR Stl Adenov F 40/41 PCR Stool Astrovirus (PCR) Stool Campylobacter PCR Stool Cryptosporidium PCR Stl Sh Tox Pr E STEC PCR Stool E coli O157 PCR Stl Enterotoxigenic E PCR Stool EPEC (PCR) Stool EAEC (PCR) Stl E. histolytica PCR Stool Giardia Lamblia PCR Stl P. shigelloides PCR Stool Salmonella PCR Stool Sapovirus (PCR) Stl Shigella/EIEC PCR St Y.enterocolitica PCR Stool Vibrio (PCR) Stl Vibrio cholerae PCR Stl Norovirus GI/GII PCR Random Vancomycin 15.0 C. difficile Tox B Gene Blood Type Antibody Screen Crossmatch 03/28/24 03/28/24 03/29/24 05:23 17:59 04:00 WBC 9.0 RBC 1.85 L Hgb 6.2 L* Hct 18.7 L* MCV 101.1 H MCH 33.5 H MCHC 33.2 RDW 22.7 H Plt Count 22 L D MPV 12.7 H Immature Gran % (Auto) 1.2 H Neut % (Auto) 80.8 H Lymph % (Auto) 9.6 L [place] % (Auto) 7.5 Eos % (Auto) 0.7 Baso % (Auto) 0.2 Lymph # (Auto) 0.9 L [place] # (Auto) 0.7 Eos # (Auto) 0.1 Baso # (Auto) 0.0 Abs Immat Gran (auto) 0.11 H Absolute Neuts (auto) 7.3 Absolute Nucleated RBC 0.000 Nucleated RBC % (auto) 0.0 Smear Tech's Comments Absolute Retic Percent Retic Immature Retic Fraction Retic Hgb Equivalent Hold Purple Top PT INR Fibrinogen D-Dimer High Sensitivty VBG pH 7.40 VBG pCO2 44 VBG pO2 50 VBG HCO3 27 H VBG O2 Saturation TNP VBG Base Excess 2.9 Sodium 141 Potassium 2.4 L* Chloride 106 Carbon Dioxide 28 Anion Gap 9 L BUN 23 H Creatinine 2.62 H Estim Creat Clear Calc 23.6 Estimated GFR 24 POC Glucose Random Glucose 111 Haptoglobin Lactic Acid Lactic Acid F/U @ 2Hr Calcium 7.2 L Phosphorus 1.0 L* Magnesium 1.6 Iron TIBC % Saturation Unsat Iron Binding Ferritin Total Bilirubin 0.8 Direct Bilirubin AST 11 ALT 8 Alkaline Phosphatase 66 Lactate Dehydrogenase Troponin I High Sens Total Protein 4.3 L Albumin 2.5 L Lipase Vitamin B12 Folate Stool Occult Blood Stl C. cayetanensis PCR Stool Rotavirus A PCR Stl Adenov F 40/41 PCR Stool Astrovirus (PCR) Stool Campylobacter PCR Stool Cryptosporidium PCR Stl Sh Tox Pr E STEC PCR Stool E coli O157 PCR Stl Enterotoxigenic E PCR Stool EPEC (PCR) Stool EAEC (PCR) Stl E. histolytica PCR Stool Giardia Lamblia PCR Stl P. shigelloides PCR Stool Salmonella PCR Stool Sapovirus (PCR) Stl Shigella/EIEC PCR St Y.enterocolitica PCR Stool Vibrio (PCR) Stl Vibrio cholerae PCR Stl Norovirus GI/GII PCR Random Vancomycin 12.5 L C. difficile Tox B Gene Blood Type Antibody Screen Crossmatch 03/29/24 03/29/24 03/29/24 04:05 09:36 13:45 WBC 8.9 RBC 2.45 L D Hgb 6.4 L* 8.1 L D Hct 19.7 L* 24.2 L D MCV 98.8 H MCH 33.1 H MCHC 33.5 RDW 21.0 H Plt Count 20 L* MPV 13.2 H Immature Gran % (Auto) Neut % (Auto) Lymph % (Auto) [place] % (Auto) Eos % (Auto) Baso % (Auto) Lymph # (Auto) [place] # (Auto) Eos # (Auto) Baso # (Auto) Abs Immat Gran (auto) Absolute Neuts (auto) Absolute Nucleated RBC 0.000 Nucleated RBC % (auto) 0.0 Smear Tech's Comments Absolute Retic Percent Retic Immature Retic Fraction Retic Hgb Equivalent Hold Purple Top PT INR Fibrinogen D-Dimer High Sensitivty VBG pH 7.50 H VBG pCO2 42 VBG pO2 49 VBG HCO3 33 H VBG O2 Saturation Not Reportable VBG Base Excess 9.7 Sodium 143 Potassium 3.1 L D Chloride 108 Carbon Dioxide 25 Anion Gap 13 BUN 28 H Creatinine 2.99 H Estim Creat Clear Calc 20.6 Estimated GFR 20 POC Glucose Random Glucose 133 H Haptoglobin Lactic Acid Lactic Acid F/U @ 2Hr Calcium 7.0 L Phosphorus 3.5 Magnesium Iron TIBC % Saturation Unsat Iron Binding Ferritin Total Bilirubin 0.9 Direct Bilirubin AST 16 ALT 11 Alkaline Phosphatase 64 Lactate Dehydrogenase Troponin I High Sens Total Protein 4.4 L Albumin 2.5 L Lipase Vitamin B12 Folate Stool Occult Blood Stl C. cayetanensis PCR Stool Rotavirus A PCR Stl Adenov F 40/41 PCR Stool Astrovirus (PCR) Stool Campylobacter PCR Stool Cryptosporidium PCR Stl Sh Tox Pr E STEC PCR Stool E coli O157 PCR Stl Enterotoxigenic E PCR Stool EPEC (PCR) Stool EAEC (PCR) Stl E. histolytica PCR Stool Giardia Lamblia PCR Stl P. shigelloides PCR Stool Salmonella PCR Stool Sapovirus (PCR) Stl Shigella/EIEC PCR St Y.enterocolitica PCR Stool Vibrio (PCR) Stl Vibrio cholerae PCR Stl Norovirus GI/GII PCR Random Vancomycin C. difficile Tox B Gene Blood Type A Positive Antibody Screen NEGATIVE Crossmatch See Detail 03/29/24 03/29/24 03/30/24 15:02 20:34 00:28 WBC 7.8 RBC 2.12 L Hgb 7.0 L* 7.1 L Hct 20.7 L* 20.7 L* MCV 97.6 MCH 33.0 MCHC 33.8 RDW 21.3 H Plt Count 38 L D MPV 10.7 Immature Gran % (Auto) Neut % (Auto) Lymph % (Auto) [place] % (Auto) Eos % (Auto) Baso % (Auto) Lymph # (Auto) [place] # (Auto) Eos # (Auto) Baso # (Auto) Abs Immat Gran (auto) Absolute Neuts (auto) Absolute Nucleated RBC 0.000 Nucleated RBC % (auto) 0.0 Smear Tech's Comments Absolute Retic Percent Retic Immature Retic Fraction Retic Hgb Equivalent Hold Purple Top PT 14.4 H D INR 1.2 H Fibrinogen 284 D-Dimer High Sensitivty 330 VBG pH VBG pCO2 VBG pO2 VBG HCO3 VBG O2 Saturation VBG Base Excess Sodium 143 Potassium 2.7 L* Chloride 107 Carbon Dioxide 26 Anion Gap 13 BUN 30 H Creatinine 3.03 H Estim Creat Clear Calc 20.4 Estimated GFR 20 POC Glucose Random Glucose 74 Haptoglobin Lactic Acid Lactic Acid F/U @ 2Hr Calcium 6.9 L Phosphorus Magnesium Iron TIBC % Saturation Unsat Iron Binding Ferritin Total Bilirubin Direct Bilirubin AST ALT Alkaline Phosphatase Lactate Dehydrogenase Troponin I High Sens Total Protein Albumin Lipase Vitamin B12 Folate Stool Occult Blood Stl C. cayetanensis PCR Stool Rotavirus A PCR Stl Adenov F 40/41 PCR Stool Astrovirus (PCR) Stool Campylobacter PCR Stool Cryptosporidium PCR Stl Sh Tox Pr E STEC PCR Stool E coli O157 PCR Stl Enterotoxigenic E PCR Stool EPEC (PCR) Stool EAEC (PCR) Stl E. histolytica PCR Stool Giardia Lamblia PCR Stl P. shigelloides PCR Stool Salmonella PCR Stool Sapovirus (PCR) Stl Shigella/EIEC PCR St Y.enterocolitica PCR Stool Vibrio (PCR) Stl Vibrio cholerae PCR Stl Norovirus GI/GII PCR Random Vancomycin C. difficile Tox B Gene Blood Type Antibody Screen Crossmatch 03/30/24 03/30/24 03/31/24 04:10 18:21 06:24 WBC 7.1 7.6 7.2 RBC 2.13 L 2.40 L 2.41 L Hgb 6.9 L* 8.0 L 7.8 L Hct 20.9 L* 23.4 L 23.6 L MCV 98.1 H 97.5 97.9 MCH 32.4 33.3 H 32.4 MCHC 33.0 34.2 33.1 RDW 21.0 H 21.3 H 21.2 H Plt Count 28 L D 18 L* 23 L D MPV 11.1 11.4 13.9 H Immature Gran % (Auto) 0.8 H Neut % (Auto) 77.7 H Lymph % (Auto) 12.0 L [place] % (Auto) 8.2 Eos % (Auto) 1.0 Baso % (Auto) 0.3 Lymph # (Auto) 0.9 L [place] # (Auto) 0.6 Eos # (Auto) 0.1 Baso # (Auto) 0.0 Abs Immat Gran (auto) 0.06 H Absolute Neuts (auto) 5.5 Absolute Nucleated RBC 0.000 0.000 0.000 Nucleated RBC % (auto) 0.0 0.0 0.0 Smear Tech's Comments Absolute Retic Percent Retic Immature Retic Fraction Retic Hgb Equivalent Hold Purple Top PT INR Fibrinogen D-Dimer High Sensitivty VBG pH VBG pCO2 VBG pO2 VBG HCO3 VBG O2 Saturation VBG Base Excess Sodium 142 Potassium 3.3 D Chloride 109 H Carbon Dioxide 25 Anion Gap 11 L BUN 32 H Creatinine 3.28 H Estim Creat Clear Calc 18.8 Estimated GFR 18 POC Glucose Random Glucose 76 Haptoglobin Lactic Acid Lactic Acid F/U @ 2Hr Calcium 6.8 L Phosphorus 2.6 L Magnesium 1.5 L Iron TIBC % Saturation Unsat Iron Binding Ferritin Total Bilirubin 0.9 Direct Bilirubin AST 16 ALT 10 Alkaline Phosphatase 62 Lactate Dehydrogenase Troponin I High Sens Total Protein 4.0 L Albumin 2.3 L Lipase Vitamin B12 Folate Stool Occult Blood Stl C. cayetanensis PCR Stool Rotavirus A PCR Stl Adenov F 40/ PCR Stool Astrovirus (PCR) Stool Campylobacter PCR Stool Cryptosporidium PCR Stl Sh Tox Pr E STEC PCR Stool E coli O157 PCR Stl Enterotoxigenic E PCR Stool EPEC (PCR) Stool EAEC (PCR) Stl E. histolytica PCR Stool Giardia Lamblia PCR Stl P. shigelloides PCR Stool Salmonella PCR Stool Sapovirus (PCR) Stl Shigella/EIEC PCR St Y.enterocolitica PCR Stool Vibrio (PCR) Stl Vibrio cholerae PCR Stl Norovirus GI/GII PCR Random Vancomycin C. difficile Tox B Gene Blood Type Antibody Screen Crossmatch 04/01/24 04/02/24 04/02/24 06:03 08:03 08:03 WBC 6.1 Cancelled 4.9 RBC 2.80 L Cancelled Hgb 9.0 L Hct 27.2 L MCV 97.1 MCH 32.1 MCHC 33.1 RDW 21.6 H Plt Count 24 L MPV TNP Immature Gran % (Auto) Neut % (Auto) Lymph % (Auto) [place] % (Auto) Eos % (Auto) Baso % (Auto) Lymph # (Auto) [place] # (Auto) Eos # (Auto) Baso # (Auto) Abs Immat Gran (auto) Absolute Neuts (auto) Absolute Nucleated RBC 0.000 Nucleated RBC % (auto) 0.0 Smear Tech's Comments Absolute Retic Percent Retic Immature Retic Fraction Retic Hgb Equivalent Hold Purple Top PT INR Fibrinogen D-Dimer High Sensitivty VBG pH VBG pCO2 VBG pO2 VBG HCO3 VBG O2 Saturation VBG Base Excess Sodium Potassium Chloride Carbon Dioxide Anion Gap BUN Creatinine Estim Creat Clear Calc Estimated GFR POC Glucose Random Glucose Haptoglobin Lactic Acid Lactic Acid F/U @ 2Hr Calcium Phosphorus Magnesium Iron TIBC % Saturation Unsat Iron Binding Ferritin Total Bilirubin Direct Bilirubin AST ALT Alkaline Phosphatase Lactate Dehydrogenase Troponin I High Sens Total Protein Albumin Lipase Vitamin B12 Folate Stool Occult Blood Stl C. cayetanensis PCR Stool Rotavirus A PCR Stl Adenov F 40 PCR Stool Astrovirus (PCR) Stool Campylobacter PCR Stool Cryptosporidium PCR Stl Sh Tox Pr E STEC PCR Stool E coli O157 PCR Stl Enterotoxigenic E PCR Stool EPEC (PCR) Stool EAEC (PCR) Stl E. histolytica PCR Stool Giardia Lamblia PCR Stl P. shigelloides PCR Stool Salmonella PCR Stool Sapovirus (PCR) Stl Shigella/EIEC PCR St Y.enterocolitica PCR Stool Vibrio (PCR) Stl Vibrio cholerae PCR Stl Norovirus GI/GII PCR Random Vancomycin C. difficile Tox B Gene Blood Type Antibody Screen Crossmatch 04/02/24 04/02/24 04/02/24 08:03 08:03 08:03 WBC RBC 2.58 L Hgb Cancelled 8.3 L Hct Cancelled 24.9 L MCV Cancelled MCH MCHC RDW Plt Count MPV Immature Gran % (Auto) Neut % (Auto) Lymph % (Auto) [place] % (Auto) Eos % (Auto) Baso % (Auto) Lymph # (Auto) [place] # (Auto) Eos # (Auto) Baso # (Auto) Abs Immat Gran (auto) Absolute Neuts (auto) Absolute Nucleated RBC Nucleated RBC % (auto) Smear Tech's Comments Absolute Retic Percent Retic Immature Retic Fraction Retic Hgb Equivalent Hold Purple Top PT INR Fibrinogen D-Dimer High Sensitivty VBG pH VBG pCO2 VBG pO2 VBG HCO3 VBG O2 Saturation VBG Base Excess Sodium Potassium Chloride Carbon Dioxide Anion Gap BUN Creatinine Estim Creat Clear Calc Estimated GFR POC Glucose Random Glucose Haptoglobin Lactic Acid Lactic Acid F/U @ 2Hr Calcium Phosphorus Magnesium Iron TIBC % Saturation Unsat Iron Binding Ferritin Total Bilirubin Direct Bilirubin AST ALT Alkaline Phosphatase Lactate Dehydrogenase Troponin I High Sens Total Protein Albumin Lipase Vitamin B12 Folate Stool Occult Blood Stl C. cayetanensis PCR Stool Rotavirus A PCR Stl Adenov F 40 PCR Stool Astrovirus (PCR) Stool Campylobacter PCR Stool Cryptosporidium PCR Stl Sh Tox Pr E STEC PCR Stool E coli O157 PCR Stl Enterotoxigenic E PCR Stool EPEC (PCR) Stool EAEC (PCR) Stl E. histolytica PCR Stool Giardia Lamblia PCR Stl P. shigelloides PCR Stool Salmonella PCR Stool Sapovirus (PCR) Stl Shigella/EIEC PCR St Y.enterocolitica PCR Stool Vibrio (PCR) Stl Vibrio cholerae PCR Stl Norovirus GI/GII PCR Random Vancomycin C. difficile Tox B Gene Blood Type Antibody Screen Crossmatch 04/02/24 04/02/24 04/02/24 08:03 08:03 08:03 WBC RBC Hgb Hct MCV 96.5 MCH Cancelled 32.2 MCHC Cancelled 33.3 RDW Cancelled Plt Count MPV Immature Gran % (Auto) Neut % (Auto) Lymph % (Auto) [place] % (Auto) Eos % (Auto) Baso % (Auto) Lymph # (Auto) [place] # (Auto) Eos # (Auto) Baso # (Auto) Abs Immat Gran (auto) Absolute Neuts (auto) Absolute Nucleated RBC Nucleated RBC % (auto) Smear Tech's Comments Absolute Retic Percent Retic Immature Retic Fraction Retic Hgb Equivalent Hold Purple Top PT INR Fibrinogen D-Dimer High Sensitivty VBG pH VBG pCO2 VBG pO2 VBG HCO3 VBG O2 Saturation VBG Base Excess Sodium Potassium Chloride Carbon Dioxide Anion Gap BUN Creatinine Estim Creat Clear Calc Estimated GFR POC Glucose Random Glucose Haptoglobin Lactic Acid Lactic Acid F/U @ 2Hr Calcium Phosphorus Magnesium Iron TIBC % Saturation Unsat Iron Binding Ferritin Total Bilirubin Direct Bilirubin AST ALT Alkaline Phosphatase Lactate Dehydrogenase Troponin I High Sens Total Protein Albumin Lipase Vitamin B12 Folate Stool Occult Blood Stl C. cayetanensis PCR Stool Rotavirus A PCR Stl Adenov F PCR Stool Astrovirus (PCR) Stool Campylobacter PCR Stool Cryptosporidium PCR Stl Sh Tox Pr E STEC PCR Stool E coli O157 PCR Stl Enterotoxigenic E PCR Stool EPEC (PCR) Stool EAEC (PCR) Stl E. histolytica PCR Stool Giardia Lamblia PCR Stl P. shigelloides PCR Stool Salmonella PCR Stool Sapovirus (PCR) Stl Shigella/EIEC PCR St Y.enterocolitica PCR Stool Vibrio (PCR) Stl Vibrio cholerae PCR Stl Norovirus GI/GII PCR Random Vancomycin C. difficile Tox B Gene Blood Type Antibody Screen Crossmatch 04/02/24 04/02/24 04/02/24 08:03 08:03 08:03 WBC RBC Hgb Hct MCV MCH MCHC RDW 21.1 H Plt Count Cancelled 31 L D MPV Cancelled 13.9 H Immature Gran % (Auto) 1.4 H Neut % (Auto) 70.5 Lymph % (Auto) 15.2 L [place] % (Auto) 12.1 H Eos % (Auto) 0.6 Baso % (Auto) 0.2 Lymph # (Auto) 0.7 L [place] # (Auto) 0.6 Eos # (Auto) 0.0 Baso # (Auto) 0.0 Abs Immat Gran (auto) 0.07 H Absolute Neuts (auto) 3.4 Absolute Nucleated RBC Cancelled Nucleated RBC % (auto) Smear Tech's Comments Absolute Retic Percent Retic Immature Retic Fraction Retic Hgb Equivalent Hold Purple Top PT INR Fibrinogen D-Dimer High Sensitivty VBG pH VBG pCO2 VBG pO2 VBG HCO3 VBG O2 Saturation VBG Base Excess Sodium Potassium Chloride Carbon Dioxide Anion Gap BUN Creatinine Estim Creat Clear Calc Estimated GFR POC Glucose Random Glucose Haptoglobin Lactic Acid Lactic Acid F/U @ 2Hr Calcium Phosphorus Magnesium Iron TIBC % Saturation Unsat Iron Binding Ferritin Total Bilirubin Direct Bilirubin AST ALT Alkaline Phosphatase Lactate Dehydrogenase Troponin I High Sens Total Protein Albumin Lipase Vitamin B12 Folate Stool Occult Blood Stl C. cayetanensis PCR Stool Rotavirus A PCR Stl Adenov F 40/41 PCR Stool Astrovirus (PCR) Stool Campylobacter PCR Stool Cryptosporidium PCR Stl Sh Tox Pr E STEC PCR Stool E coli O157 PCR Stl Enterotoxigenic E PCR Stool EPEC (PCR) Stool EAEC (PCR) Stl E. histolytica PCR Stool Giardia Lamblia PCR Stl P. shigelloides PCR Stool Salmonella PCR Stool Sapovirus (PCR) Stl Shigella/EIEC PCR St Y.enterocolitica PCR Stool Vibrio (PCR) Stl Vibrio cholerae PCR Stl Norovirus GI/GII PCR Random Vancomycin C. difficile Tox B Gene Blood Type Antibody Screen Crossmatch 04/02/24 04/02/24 04/02/24 08:03 08:03 08:03 WBC RBC Hgb Hct MCV MCH MCHC RDW Plt Count MPV Immature Gran % (Auto) Neut % (Auto) Lymph % (Auto) [place] % (Auto) Eos % (Auto) Baso % (Auto) Lymph # (Auto) [place] # (Auto) Eos # (Auto) Baso # (Auto) Abs Immat Gran (auto) Absolute Neuts (auto) Absolute Nucleated RBC 0.000 Nucleated RBC % (auto) Cancelled 0.0 Smear Tech's Comments Absolute Retic 0.032 Percent Retic 1.3 Immature Retic Fraction 15.0 H Retic Hgb Equivalent 34.7 Hold Purple Top PT INR Fibrinogen D-Dimer High Sensitivty VBG pH VBG pCO2 VBG pO2 VBG HCO3 VBG O2 Saturation VBG Base Excess Sodium Potassium Chloride Carbon Dioxide Anion Gap BUN Creatinine Estim Creat Clear Calc Estimated GFR POC Glucose Random Glucose 82 Haptoglobin 34 L Lactic Acid Lactic Acid F/U @ 2Hr Calcium Phosphorus Magnesium 1.8 Iron 20 L TIBC 54 L % Saturation 37 Unsat Iron Binding 34 Ferritin 876 H Total Bilirubin 0.9 Direct Bilirubin 0.4 AST 20 ALT 9 Alkaline Phosphatase 69 Lactate Dehydrogenase Cancelled 355 H Troponin I High Sens Total Protein 4.3 L Albumin Lipase Vitamin B12 Folate Stool Occult Blood Stl C. cayetanensis PCR Stool Rotavirus A PCR Stl Adenov F 40/41 PCR Stool Astrovirus (PCR) Stool Campylobacter PCR Stool Cryptosporidium PCR Stl Sh Tox Pr E STEC PCR Stool E coli O157 PCR Stl Enterotoxigenic E PCR Stool EPEC (PCR) Stool EAEC (PCR) Stl E. histolytica PCR Stool Giardia Lamblia PCR Stl P. shigelloides PCR Stool Salmonella PCR Stool Sapovirus (PCR) Stl Shigella/EIEC PCR St Y.enterocolitica PCR Stool Vibrio (PCR) Stl Vibrio cholerae PCR Stl Norovirus GI/GII PCR Random Vancomycin C. difficile Tox B Gene Blood Type Antibody Screen Crossmatch 04/02/24 04/03/24 04/03/24 08:03 08:06 13:57 WBC 6.4 RBC 2.62 L Hgb 8.5 L 8.3 L Hct 25.8 L 26.1 L MCV 98.5 H MCH 32.4 MCHC 32.9 RDW 21.5 H Plt Count 45 L D MPV 13.0 H Immature Gran % (Auto) Neut % (Auto) Lymph % (Auto) [place] % (Auto) Eos % (Auto) Baso % (Auto) Lymph # (Auto) [place] # (Auto) Eos # (Auto) Baso # (Auto) Abs Immat Gran (auto) Absolute Neuts (auto) Absolute Nucleated RBC 0.000 Nucleated RBC % (auto) 0.0 Smear Tech's Comments Absolute Retic Percent Retic Immature Retic Fraction Retic Hgb Equivalent Hold Purple Top PT INR Fibrinogen D-Dimer High Sensitivty VBG pH VBG pCO2 VBG pO2 VBG HCO3 VBG O2 Saturation VBG Base Excess Sodium 144 Potassium 3.1 L Chloride 110 H Carbon Dioxide 28 Anion Gap 9 L BUN 20 H Creatinine 2.76 H Estim Creat Clear Calc 22.4 Estimated GFR 22 POC Glucose Random Glucose 85 Haptoglobin Lactic Acid Lactic Acid F/U @ 2Hr Calcium 7.0 L Phosphorus Magnesium Iron TIBC % Saturation Unsat Iron Binding Ferritin Total Bilirubin Direct Bilirubin AST ALT Alkaline Phosphatase Lactate Dehydrogenase Troponin I High Sens Total Protein 4.2 L Albumin 2.1 L Lipase Vitamin B12 654 Folate 5.1 Stool Occult Blood Stl C. cayetanensis PCR Stool Rotavirus A PCR Stl Adenov F 40/41 PCR Stool Astrovirus (PCR) Stool Campylobacter PCR Stool Cryptosporidium PCR Stl Sh Tox Pr E STEC PCR Stool E coli O157 PCR Stl Enterotoxigenic E PCR Stool EPEC (PCR) Stool EAEC (PCR) Stl E. histolytica PCR Stool Giardia Lamblia PCR Stl P. shigelloides PCR Stool Salmonella PCR Stool Sapovirus (PCR) Stl Shigella/EIEC PCR St Y.enterocolitica PCR Stool Vibrio (PCR) Stl Vibrio cholerae PCR Stl Norovirus GI/GII PCR Random Vancomycin C. difficile Tox B Gene Blood Type Antibody Screen Crossmatch 04/04/24 04/05/24 04/07/24 06:33 06:38 06:04 WBC 9.0 7.2 RBC 2.57 L 2.67 L Hgb 8.3 L 8.7 L Hct 25.7 L 27.4 L MCV 100.0 H 102.6 H MCH 32.3 32.6 MCHC 32.3 31.8 RDW 21.0 H 19.5 H Plt Count 57 L D 73 L D MPV 13.0 H 11.5 Immature Gran % (Auto) Neut % (Auto) Lymph % (Auto) [place] % (Auto) Eos % (Auto) Baso % (Auto) Lymph # (Auto) [place] # (Auto) Eos # (Auto) Baso # (Auto) Abs Immat Gran (auto) Absolute Neuts (auto) Absolute Nucleated RBC 0.000 0.000 Nucleated RBC % (auto) 0.0 0.0 Smear Tech's Comments Absolute Retic Percent Retic Immature Retic Fraction Retic Hgb Equivalent Hold Purple Top PT INR Fibrinogen D-Dimer High Sensitivty VBG pH VBG pCO2 VBG pO2 VBG HCO3 VBG O2 Saturation VBG Base Excess Sodium 141 141 145 Potassium 3.8 D 3.7 3.8 Chloride 111 H 112 H 119 H Carbon Dioxide 24 23 22 Anion Gap 10 L 10 L 8 L BUN 23 H 26 H 30 H Creatinine 3.06 H 3.41 H 3.69 H Estim Creat Clear Calc 20.2 18.1 16.7 Estimated GFR 20 18 16 POC Glucose Random Glucose 90 88 84 Haptoglobin Lactic Acid Lactic Acid F/U @ 2Hr Calcium 6.7 L 6.6 L 6.6 L Phosphorus Magnesium Iron TIBC % Saturation Unsat Iron Binding Ferritin Total Bilirubin Direct Bilirubin AST ALT Alkaline Phosphatase Lactate Dehydrogenase Troponin I High Sens Total Protein Albumin Lipase Vitamin B12 Folate Stool Occult Blood Stl C. cayetanensis PCR Stool Rotavirus A PCR Stl Adenov F 40/41 PCR Stool Astrovirus (PCR) Stool Campylobacter PCR Stool Cryptosporidium PCR Stl Sh Tox Pr E STEC PCR Stool E coli O157 PCR Stl Enterotoxigenic E PCR Stool EPEC (PCR) Stool EAEC (PCR) Stl E. histolytica PCR Stool Giardia Lamblia PCR Stl P. shigelloides PCR Stool Salmonella PCR Stool Sapovirus (PCR) Stl Shigella/EIEC PCR St Y.enterocolitica PCR Stool Vibrio (PCR) Stl Vibrio cholerae PCR Stl Norovirus GI/GII PCR Random Vancomycin C. difficile Tox B Gene Blood Type Antibody Screen Crossmatch Narrative Narrative: Echo from 12/05 reviewed Airway Mallampati Class: II TM Dist: >3cm Neck ROM: Full Denture: Upper and Lower Heart: OK. Low-normal EF. Valves and right heart OK. Lungs: OK. Assessment and Plan Assessment Anesthesia Assessment: Anesthesia Plan Discussed and Chart Reviewed Final Anesthetic Review Family History of Problems with Anesthesia: No History of Problems with Anesthesia: No ASA Class: IV and Emergency Final Preanesthetic Review: No Changes in Pt Med Stat, Meds/Allgs Chart Reviewed, Consent Obtained/Reviewed and Anes Risks/Benef Reviewed Patient Risk: High Procedure Risk: Low Anesthetic Plan Anesthetic Plan: GA, Agree w/ Assess. and Plan and TIVA Disposition: Standard PACU
--- NOTE | 2024-04-07 15:53 | P.PNIM_ITS ---
Subjective Subjective Date of Service: 04/07/24 Interval History: esrd, need cystoscopy and permacath Review of Systems seems somewhat feeling better diarrhae also improving Physical Exam 2 Vital Signs: Vital Signs: Last Vital Signs Temp 98.5 F 04/07/24 11:58 Pulse 60 04/07/24 11:58 Resp 17 04/07/24 11:58 BP 168/77 H 04/07/24 11:58 Pulse Ox 94 04/07/24 11:58 O2 Del Method Room Air 04/07/24 11:58 O2 Flow Rate 1 04/07/24 08:00 BMI result Body Mass Index 25.1 General: AO X 3, no acute distress Resp: air entry is fair ,slightly diminshed at bases ,no rales or wheezing CVS: S1,S2,RRR GI: +BS, NT, no distention Skin: No rash Neuro: motor grossly intact Psych: appropriate affect Objective Data Active Medications Acetaminophen (Acetaminophen 325 Mg Tablet) 650 mg PO Q6H PRN PRN Reason: Pain, Mild 1-3,fever,headache Last Admin: 03/30/24 15:49 Dose: 650 mg Documented By: LEAH Amiodarone HCl (Amiodarone Hcl 200 Mg Tablet) 200 mg PO DAILY [facility] Last Admin: 04/07/24 11:06 Dose: 200 mg Documented By: VALENTÍN Ascorbic Acid (Ascorbic Acid 250 Mg Tablet) 250 mg PO BID [facility] Last Admin: 04/07/24 11:06 Dose: 250 mg Documented By: VALENTÍN Calcium Carbonate/Cholecalciferol (Calcium + Vitamin D 250 Mg Tablet) 250 mg PO DAILY [facility] Last Admin: 04/07/24 11:06 Dose: 250 mg Documented By: VALENTÍN Cholestyramine Resin (Cholestyramine (With Sugar) 4 Gm Powd.Pack) 2 gm PO BIDWM [facility] Last Admin: 04/07/24 11:02 Dose: Not Given Documented By: VALENTÍN Non-Admin Reason: NPO Ferrous Sulfate (Ferrous Sulfate 324 Mg Tablet.Dr) 324 mg PO BID [facility] Last Admin: 04/07/24 11:06 Dose: 324 mg Documented By: VALENTÍN Fluconazole (Fluconazole 100 Mg Tablet) 100 mg PO DAILY [facility] Last Admin: 04/07/24 11:06 Dose: 100 mg Documented By: VALENTÍN Octreotide Acetate 500 mcg/ (Sodium Chloride) 501 mls @ 50.1 mls/hr IVCONT .Q10H [facility] Last Admin: 04/07/24 06:42 Dose: 50 mcg/hr, 50.1 mls/hr Documented By: STEPHANE Loperamide HCl (Loperamide Hcl 2 Mg Capsule) 4 mg PO Q4H PRN PRN Reason: Diarrhea Last Admin: 04/07/24 11:05 Dose: 4 mg Documented By: VALENTÍN Melatonin (Melatonin 3 Mg Tablet) 6 mg PO BEDTIME PRN PRN Reason: Insomnia Meropenem (Meropenem 500 Mg Vial) 500 mg IVPUSH Q24H [facility]ILE Last Admin: 04/06/24 17:21 Dose: 500 mg Documented By: DICK Metoprolol Tartrate (Metoprolol Tartrate 25 Mg Tablet) 25 mg PO Q6H NILE; Protocol Last Admin: 04/07/24 11:06 Dose: 25 mg Documented By: VALENTÍN Ondansetron HCl (Ondansetron Hcl 4 Mg/2 Ml Vial) 4 mg IVPUSH Q8H PRN PRN Reason: Nausea and Vomiting Labs 04/07/24 06:04 04/07/24 06:04 Labs: Laboratory Results - last 24 hr 04/07/24 06:04 MCV 102.6 H MCH 32.6 MCHC 31.8 RDW 19.5 H Plt Count 73 L D MPV 11.5 Absolute Nucleated RBC 0.000 Nucleated RBC % (auto) 0.0 Anion Gap 8 L Estim Creat Clear Calc 16.7 Estimated GFR 16 Random Glucose 84 Calcium 6.6 L Assessment and Plan (1) Thrombocytopenia: Status: Acute (2) Acute blood loss anemia: Status: Acute Assessment and Plan: 78-year-old male with history of ESRD on HD MWF, colorectal cancer status post low anterior resection with diverting loop ileostomy and reversal at [facility], recurrent c diff, chronic R hydonephrosis, and atrial fibrillation on Eliquis who presents to the emergency department on 03/25/24 with persistent diarrhea 3-4x/day with associated weakness, was transfered to ICU on same day due to shock/hypotension, hospital course complicated by bacteremia and GIB with acute blood loss anemia Diarrhea, h/o Cdif, negative Cdif this time. Po Vancomycin 125 mg qid while on antibiotics and 48 h after and then 125 m,w,fri per ID recommendation Shock/hypotension, was on pressors in icu, resolved. 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 As per the surgery clinically does not look look bowel obstruction, discussed with the Urology-since patient does not produce much urine at baseline. and CT abdomen finding looks unchanged right-sided hydro-recommended to repeat culture urine pending . In addition initial CT scan shows question of CBD dilation, LFTs are normal- patient does not have abdominal pain. 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 on mrcpComplex hemorrhagic exophytic lesion, left kidney.Blood products versus purulent material versus neoplasm resulting in dilatation of the right pelvicalyceal system.-d/w urology-possible cystoscopy today. Above was discussed with ID -urine culture -michael (?colonization) ,Repeat blood cultures neg@24hrs , urine culture -michael (?colonization) ,hd catheter -tip culture neg. GI bleeding acute blood loss anemia s/p 2 units of RBC, transfuse 1 unit today during dialysis S/p EGD on 03/29 : gastritis,duodenitis candidal esophagitis-added fluconazole(d/w GI). 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 Thrombocytopenia, acute on chronic: Hematology workup added, iron and TIBC low, LDH mildly elevated Platelets improving to 45, H&H is flactuating from 8 to 8.5 monitor CBC. End-stage renal disease on HD MWF patient will need hd catheter today ,possible hd after that Acute Lactic acidosis- likely secondary to dehydration and ESRD. Chronic Atrial fibrillation, Hold eliquis in light of recent gib and low platlets will ask GI and profound anemia, requireing multiple transfusion hr stable on amio and metoprolol. Quality Stroke Does the patient have a stroke diagnosis?: No VTE Prior VTE?: No VTE Risk Level:: Medical - moderate - high VTE Device Contraindication: Treatment Not Indicated VTE Drug Contraindication: N/A - Med Ordered
--- NOTE | 2024-04-07 16:11 | MHC.SHP ---
Pre-Procedural Eval Section A - 24 Hr Update-Section A only Date of Service: 04/07/24 The patient is an INPATIENT: Yes Changes since office visit: No Cold of Flu in the past 2 weeks, No New Medical Problems, No Changes in Medication and No Patient answered all questions The patient has been examined within 24 hours of the surgical procedure. The History & Physical has been completed within 30 days and I have reviewed it.: Yes Section B - Complete if H&P > 30 days Chief Complaint: Diarrhea Details of Present Illness: Cystoscopy, right retrograde, right diagnostic ureteroscopy Relevant Social History: None Present Medications: see Short Stay Collaborative assessment Medical History: Significant History History of Previous Operations: No relevant previous surgery Allergies: Allergies Allergy/AdvReac Type Severity Reaction Status Date / Time No Known Allergies [NKA] Allergy Mild NOT Verified 03/25/24 03:29 APPLICABLE Plan Diagnosis/Plan: Unchanged (see above) I have reviewed the history and physical and performed a pertinent physical examination on my patient. No changes have occurred unless specified. Time Spent With Patient Time: Total time managing care of this patient today ____ minutes.
--- NOTE | 2024-04-07 16:59 | W.PM.OPN ---
Operative Note Operative Note Date of Service: 04/07/24 Narrative: PreOperative Diagnosis: Recurrent urinary tract infection with question of hemorrhagic product and right renal pelvis Post Operative Diagnosis: Right obstructed distal ureter Procedure: Right retrograde with right ureteroscopy diagnostic Surgeon: Dr Jacob Horton Anesthesia: Sedation Indications for procedure: Recurrent urinary sepsis. CT imaging with question of hemorrhagic product within right renal pelvis. Procedure: After informed consent was verified the patient was brought to the operating room and placed in a supine position. Anesthesia was administered per protocol. The patient was prepped and draped in a sterile fashion. Safety pause time-out was performed. Antibiotics being given. Uro jet placed. Twenty-two Baham[place] cystoscope placed. No abnormality of anterior posterior urethra. Difficult to find right ureteric orifice. Small right ureteric orifice found. Wire placed. Wire appeared to divert posteriorly behind the bladder. Retrograde examination performed. Similar finding with distal right ureteric stricture or obstruction. Right ureteroscopy performed. Normal ureter for proximally 1 in. Then small hole was present. Wire advanced and seen to then coil behind the bladder. This indicates known typical pathway. Obstruction of ureter which is likely create false passage. Decision made to not proceed. Bladder emptied. Patient was extubated and transferred in stable condition recovery area. Recommendation made for right PCN placement in order to drain right renal unit which may be source of infection. Pathology: Drains: []
[2024-04-07] MEDS: Meropenem 500 MG VIAL IVPUSH (17:51)
[2024-04-07] MEDS: Cholestyramine (With Sugar) 4 GM POWD.PACK 2 GM PO (17:53)
--- NOTE | 2024-04-07 23:20 | P.PNNP_ITS ---
Subjective Subjective Date of Service: 04/07/24 Interval history: esrd, need cystoscopy and is s/p permacath Seen on HD Physical Exam 2 Vital Signs: Vital Signs: Last Vital Signs Temp 97.8 F 04/07/24 19:36 Pulse 60 04/07/24 22:25 Resp 20 04/07/24 19:36 BP 134/64 04/07/24 22:25 Pulse Ox 95 04/07/24 19:36 O2 Del Method Room Air 04/07/24 19:36 O2 Flow Rate 1 04/07/24 08:00 BMI result Body Mass Index 25.1 General: AO X 3, no acute distress Resp: air entry is fair ,slightly diminshed at bases ,no rales or wheezing CVS: S1,S2,RRR GI: +BS, NT, no distention Skin: No rash Neuro: motor grossly intact Psych: appropriate affect Objective Data Labs 04/07/24 06:04 04/07/24 06:04 Labs: Laboratory Results - last 24 hr 04/07/24 06:04 WBC 7.2 RBC 2.67 L Hgb 8.7 L Hct 27.4 L MCV 102.6 H MCH 32.6 MCHC 31.8 RDW 19.5 H Plt Count 73 L D MPV 11.5 Absolute Nucleated RBC 0.000 Nucleated RBC % (auto) 0.0 Sodium 145 Potassium 3.8 Chloride 119 H Carbon Dioxide 22 Anion Gap 8 L BUN 30 H Creatinine 3.69 H Estim Creat Clear Calc 16.7 Estimated GFR 16 Random Glucose 84 Calcium 6.6 L Microbiology Microbiology Results: Microbiology 04/02/24 14:08 Blood - Venous Blood Culture - Final No growth after 5 days. 04/02/24 14:08 Blood - Venous Blood Culture - Final No growth after 5 days. 04/02/24 12:25 Catheter Tip - Other Catheter Tip Culture - Final No growth after 3 days. 04/02/24 17:16 Urine clean catch - Clean Catch Midstream Urine Culture - Final Cristal albicans 03/28/24 10:07 Blood - Central Line Blood Culture - Final No growth after 5 days. 03/28/24 10:07 Blood - Central Line Blood Culture - Final Klebsiella oxytoca 03/26/24 11:10 Blood - Central Line Blood Culture - Final Klebsiella oxytoca 03/26/24 11:30 Blood - Central Line Blood Culture - Final Klebsiella oxytoca 03/25/24 03:02 Blood - Venous Blood Culture - Final Klebsiella oxytoca 03/25/24 03:16 Blood - Venous Blood Culture - Final Klebsiella oxytoca Procedures Date of Service Date of Service: 04/07/24 Assessment & Plan Assessment and plan (1) End stage renal disease: Status: Acute (2) Anemia: Status: Inactive Plan known ESRD on HD - at [facility] via PC admitted with septic shock Klebsiella bacteremia s/p new Permcath placemnet nephrogenic anemia REC HD today usuing new PC HD again in Am and keep him TTS in the hospital ( Out pt MWF) UF as tolerated renal diet Po4 binder PATTI Abx per primary team For cystoscopen Time Spent With Patient Time: Total time managing care of this patient today ____ minutes. Progress Note: Quality Stroke Does the patient have a stroke diagnosis?: No
[2024-04-08] VITALS (15 sets, daily range): BP systolic 91–164; BP diastolic 54–88; PULSE 59–67; RESP 12–20; TEMP 36.2–37; O2SAT 94–100
[2024-04-08] MEDS: Loperamide HCl 2 MG CAPSULE 4 MG PO (03:26)
[2024-04-08] MEDS: Metoprolol Tartrate 25 MG TABLET PO ×2 (03:26→16:39)
[2024-04-08] MEDS: Octreotide Acetate 500 MCG in 0.9 % Sodium Chloride 500 ML 50.1 MCG IVCONT ×3 (03:29→23:54)
--- NOTE | 2024-04-08 10:43 | MHC.CLN ---
F/U PATIENT IS DAY 2 NPO WHEN DIET TO RESUME, RE-START PREVIOUS DIET: 2 GRAM SODIUM, LOW POTASSIUM, LOW PHOSPHORUS PATIENT WITH ESRD ON HD-WILL RECEIVE TODAY PER MD SKIN WITH STAGE II TO COCCYX RE-START ENSURE CLEAR TID TO PROMOTE WOUND HEALING SUPPLEMENT TO PROVIDE 720 KCALS, 24 G PROTEIN MONITOR FOR DIET ADVANCEMENT
[2024-04-08] MEDS: fentaNYL citrate/PF 100 MCG/2 ML VIAL 50 MCG IVPUSH (13:15)
[2024-04-08] MEDS: Midazolam HCl 2 MG/2 ML VIAL 1 MG IVPUSH (13:22)
--- NOTE | 2024-04-08 14:17 | P.PNIM_ITS ---
Subjective Subjective Date of Service: 04/08/24 Interval History: esrd, need cystoscopy and permacath Review of Systems seems somewhat feeling better diarrhae also improving Physical Exam 2 Vital Signs: Vital Signs: Last Vital Signs Temp 97.1 F 04/08/24 12:00 Pulse 67 04/08/24 13:45 Resp 14 04/08/24 13:45 BP 134/80 04/08/24 13:45 Pulse Ox 94 04/08/24 13:45 O2 Del Method Room Air 04/08/24 13:45 O2 Flow Rate 2 04/08/24 13:20 FiO2 35 04/08/24 13:20 BMI result Body Mass Index 25.1 General: AO X 3, no acute distress Resp: air entry is fair ,slightly diminshed at bases ,no rales or wheezing CVS: S1,S2,RRR GI: +BS, NT, no distention Skin: No rash Neuro: motor grossly intact Psych: appropriate affect Objective Data Active Medications Acetaminophen (Acetaminophen 325 Mg Tablet) 650 mg PO Q6H PRN PRN Reason: Pain, Mild 1-3,fever,headache Last Admin: 03/30/24 15:49 Dose: 650 mg Documented By: LEAH Amiodarone HCl (Amiodarone Hcl 200 Mg Tablet) 200 mg PO DAILY [facility] Last Admin: 04/08/24 08:20 Dose: Not Given Documented By: SHANNAN Non-Admin Reason: NPO Ascorbic Acid (Ascorbic Acid 250 Mg Tablet) 250 mg PO BID [facility] Last Admin: 04/08/24 08:20 Dose: Not Given Documented By: SHANNAN Non-Admin Reason: NPO Calcium Carbonate/Cholecalciferol (Calcium + Vitamin D 250 Mg Tablet) 250 mg PO DAILY [facility] Last Admin: 04/08/24 08:20 Dose: Not Given Documented By: SHANNAN Non-Admin Reason: NPO Cholestyramine Resin (Cholestyramine (With Sugar) 4 Gm Powd.Pack) 2 gm PO BIDWM [facility] Last Admin: 04/08/24 08:20 Dose: Not Given Documented By: SHANNAN Non-Admin Reason: NPO Ferrous Sulfate (Ferrous Sulfate 324 Mg Tablet.Dr) 324 mg PO BID [facility] Last Admin: 04/08/24 08:20 Dose: Not Given Documented By: SHANNAN Non-Admin Reason: NPO Fluconazole (Fluconazole 100 Mg Tablet) 100 mg PO DAILY [facility] Last Admin: 04/08/24 12:17 Dose: Not Given Documented By: SHANNAN Non-Admin Reason: NPO Octreotide Acetate 500 mcg/ (Sodium Chloride) 501 mls @ 50.1 mls/hr IVCONT .Q10H [facility] Last Admin: 04/08/24 03:29 Dose: 50 mcg/hr, 50.1 mls/hr Documented By: FARRAH Loperamide HCl (Loperamide Hcl 2 Mg Capsule) 4 mg PO Q4H PRN PRN Reason: Diarrhea Last Admin: 04/08/24 03:26 Dose: 4 mg Documented By: STEPHANE Melatonin (Melatonin 3 Mg Tablet) 6 mg PO BEDTIME PRN PRN Reason: Insomnia Meropenem (Meropenem 500 Mg Vial) 500 mg IVPUSH Q24H [facility] Last Admin: 04/07/24 17:51 Dose: 500 mg Documented By: SHARMAINE Metoprolol Tartrate (Metoprolol Tartrate 25 Mg Tablet) 25 mg PO Q6H [facility]; Protocol Last Admin: 04/08/24 12:17 Dose: Not Given Documented By: SHANNAN Non-Admin Reason: NPO Naloxone HCl (Naloxone Hcl 0.4 Mg/Ml Vial) 0.04 mg IVPUSH Q5M PRN PRN Reason: Excessive sedation or RR < 8 Ondansetron HCl (Ondansetron Hcl 4 Mg/2 Ml Vial) 4 mg IVPUSH Q8H PRN PRN Reason: Nausea and Vomiting Labs 04/07/24 06:04 04/07/24 06:04 Microbiology Microbiology Results: Microbiology 04/02/24 14:08 Blood Culture - Final Blood - Venous No growth after 5 days. 04/02/24 14:08 Blood Culture - Final Blood - Venous No growth after 5 days. Assessment and Plan (1) Thrombocytopenia: Status: Acute (2) Acute blood loss anemia: Status: Acute Assessment and Plan: 78-year-old male with history of ESRD on HD MWF, colorectal cancer status post low anterior resection with diverting loop ileostomy and reversal at [facility], recurrent c diff, chronic R hydonephrosis, and atrial fibrillation on Eliquis who presents to the emergency department on 03/25/24 with persistent diarrhea 3-4x/day with associated weakness, was transfered to ICU on same day due to shock/hypotension, hospital course complicated by bacteremia and GIB with acute blood loss anemia Shock/hypotension, was on pressors in icu, resolved. 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 on mrcpComplex hemorrhagic exophytic lesion, left kidney.Blood products versus purulent material versus neoplasm resulting in dilatation of the right pelvicalyceal system.-S/PRight retrograde with right ureteroscopy diagnostic:Right obstructed distal ureter-As per urology might be source for infection -going for right PCN today. has klebsiella bacteremia ,HD catehter-tip culture sent Gi issues: In addition initial CT scan shows question of CBD dilation, LFTs are normal-patient does not have abdominal pain. 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 GI bleeding acute blood loss anemia s/p 2 units of RBC, transfuse 1 unit today during dialysis S/p EGD on 03/29 : gastritis,duodenitis candidal esophagitis-added fluconazole(d/w GI). 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 Diarrhea, h/o Cdif, negative Cdif this time. Po Vancomycin 125 mg qid while on antibiotics and 48 h after and then 125 m,w,sun per ID recommendation. patient need Gi follow up for mrcp findings as well decide duration of iv octerotide. Thrombocytopenia, acute on chronic: iron and TIBC low, LDH mildly elevated Platelets improving to 73 H&H is flactuating from 8 to 8.5 monitor CBC, Gi and hematology following. End-stage renal disease on HD MWF patient will need hd catheter placed back on 04/07/24. Acute Lactic acidosis- likely secondary to dehydration and ESRD. Chronic Atrial fibrillation, Hold eliquis in light of recent gib and low platlets will ask GI and profound anemia, requireing multiple transfusion hr stable on amio and metoprolol. Quality Stroke Does the patient have a stroke diagnosis?: No VTE Prior VTE?: No VTE Risk Level:: Medical - moderate - high VTE Device Contraindication: Treatment Not Indicated VTE Drug Contraindication: N/A - Med Ordered
[2024-04-08] MEDS: Cholestyramine (With Sugar) 4 GM POWD.PACK 2 GM PO (16:39)
[2024-04-08] MEDS: Meropenem 500 MG VIAL IVPUSH (16:39)
[2024-04-08] MEDS: Acetaminophen 325 MG TABLET 650 MG PO (17:39)
[2024-04-08] MEDS: Ascorbic Acid 250 MG TABLET PO (19:54)
[2024-04-08] MEDS: Ferrous Sulfate 324 MG TABLET.DR PO (19:54)
[2024-04-09] VITALS (9 sets, daily range): BP systolic 100–153; BP diastolic 55–77; PULSE 60–88; RESP 17–20; TEMP 36.2–37.1; O2SAT 93–100
[2024-04-09] MEDS: Metoprolol Tartrate 25 MG TABLET PO ×4 (03:41→22:10)
[2024-04-09 07:05] LABS: Hematocrit 28.1 % (42.0-52.0); Hemoglobin 8.6 g/dl (14.0-18.0); Mean Corpuscular HGB Conc 30.6 g/dl (31.0-36.0); Mean Corpuscular Hemoglobin 31.4 pg (27.0-33.0); Mean Corpuscular Volume 102.6 fL (80.0-98.0); Mean Platelet Volume 12.3 fL (9.4-12.4); Red Blood Count 2.74 X10*6/uL (4.60-5.80); Red Cell Distribution Width 19.1 % (11.0-16.0)
[2024-04-09 07:07] LABS: Platelet Count 59 X10*3/uL (160-400)
[2024-04-09 07:22] LABS: Anion Gap 11 (12-20); Blood Urea Nitrogen 11 mg/dL (9-16); Calcium 6.9 mg/dL (8.4-10.2); Carbon Dioxide 22 mmol/L (22-29); Chloride 112 mmol/L (96-108); Glucose Random 85 mg/dL (60-115); Potassium 3.6 mmol/L (3.3-5.1); Sodium 141 mmol/L (135-145)
[2024-04-09 07:37] LABS: Creatinine Clr Calc Pharmacy 32.7; Estimated Glomerular Filt Rate 35
[2024-04-09] MEDS: Fluconazole 100 MG TABLET PO (07:46)
[2024-04-09] MEDS: Acetaminophen 325 MG TABLET 650 MG PO ×2 (07:46→16:51)
[2024-04-09] MEDS: Ascorbic Acid 250 MG TABLET PO ×2 (07:46→22:10)
[2024-04-09] MEDS: Ferrous Sulfate 324 MG TABLET.DR PO ×2 (07:46→22:10)
[2024-04-09] MEDS: Calcium + Vitamin D 250 MG TABLET PO (07:46)
[2024-04-09] MEDS: Amiodarone HCL 200 MG TABLET PO (07:48)
[2024-04-09] MEDS: Cholestyramine (With Sugar) 4 GM POWD.PACK 2 GM PO ×2 (07:48→16:51)
[2024-04-09] MEDS: Octreotide Acetate 500 MCG in 0.9 % Sodium Chloride 500 ML 50.1 MCG IVCONT ×2 (08:47→16:51)
--- NOTE | 2024-04-09 10:22 | PM.PNNEP ---
Subjective Subjective Date of Service: 04/09/24 Interval history: Seen Pt comfortable No CP Physical Exam Vital Signs: Vital Signs: Last Vital Signs Temp 97.1 F 04/09/24 07:23 Pulse 60 04/09/24 07:23 Resp 18 04/09/24 07:23 BP 126/59 L 04/09/24 07:23 Pulse Ox 94 04/09/24 07:23 O2 Del Method Room Air 04/09/24 07:23 O2 Flow Rate 2 04/08/24 13:20 FiO2 35 04/08/24 13:20 BMI result Body Mass Index 25.1 General: AO X 3, no acute distress Resp: air entry is fair ,slightly diminshed at bases ,no rales or wheezing CVS: S1,S2,RRR GI: +BS, NT, no distention Skin: No rash Neuro: motor grossly intact Psych: appropriate affect Objective Data Labs 04/09/24 06:44 04/09/24 06:44 Labs: Laboratory Results - last 24 hr 04/09/24 06:44 WBC 7.0 RBC 2.74 L Hgb 8.6 L Hct 28.1 L MCV 102.6 H MCH 31.4 MCHC 30.6 L RDW 19.1 H Plt Count 59 L MPV 12.3 Absolute Nucleated RBC 0.000 Nucleated RBC % (auto) 0.0 Sodium 141 Potassium 3.6 Chloride 112 H Carbon Dioxide 22 Anion Gap 11 L BUN 11 Creatinine 1.89 H Estim Creat Clear Calc 32.7 Estimated GFR 35 Random Glucose 85 Calcium 6.9 L Microbiology Microbiology Results: Microbiology 04/02/24 14:08 Blood - Venous Blood Culture - Final No growth after 5 days. 04/02/24 14:08 Blood - Venous Blood Culture - Final No growth after 5 days. 04/02/24 12:25 Catheter Tip - Other Catheter Tip Culture - Final No growth after 3 days. 04/02/24 17:16 Urine clean catch - Clean Catch Midstream Urine Culture - Final Cristal albicans 03/28/24 10:07 Blood - Central Line Blood Culture - Final No growth after 5 days. 03/28/24 10:07 Blood - Central Line Blood Culture - Final Klebsiella oxytoca 03/26/24 11:10 Blood - Central Line Blood Culture - Final Klebsiella oxytoca 03/26/24 11:30 Blood - Central Line Blood Culture - Final Klebsiella oxytoca 03/25/24 03:02 Blood - Venous Blood Culture - Final Klebsiella oxytoca 03/25/24 03:16 Blood - Venous Blood Culture - Final Klebsiella oxytoca Procedures Date of Service Date of Service: 04/09/24 Assessment & Plan Assessment and plan (1) End stage renal disease: Status: Acute (2) Anemia: Status: Inactive Plan known ESRD on HD at [facility] via PC admitted with septic shock Klebsiella bacteremia s/p new Permcath placemnet nephrogenic anemia REC HD Yesterdayusuing new PC Will keep him TTS in the hospital ( Out pt MWF) UF as tolerated renal diet Po4 binder PATTI Abx per primary team Time Spent With Patient Time: Total time managing care of this patient today ____ minutes. Progress Note: Quality Stroke Does the patient have a stroke diagnosis?: No
--- NOTE | 2024-04-09 11:46 | MHC.CLN ---
F/U DIET ADVANCED TO REGULAR RECOMMEND RE-STARTING PREVIOUS DIET: 2 GRAM SODIUM, LOW POTASSIUM, LOW PHOSPHORUS PATIENT WITH ESRD ON HD PRESSURE INJURY TO COCCYX RE-START ENSURE CLEAR TID TO PROMOTE WOUND HEALING SUPPLEMENT TO PROVIDE 720 KCALS, 24 G PROTEIN MONITOR PO INTAKE
--- NOTE | 2024-04-09 11:47 | HO.PM.IMPN ---
Subjective Subjective Date of Service: 04/09/24 Interval History: f/u recurrent bacteremia, line sepsis, esrd, dialysis cath replaced Physical Exam Vital Signs: Vital Signs: Last Vital Signs Temp 97.4 F 04/09/24 11:29 Pulse 60 04/09/24 11:29 Resp 18 04/09/24 11:29 BP 113/55 L 04/09/24 11:29 Pulse Ox 94 04/09/24 11:29 O2 Del Method Room Air 04/09/24 11:29 O2 Flow Rate 2 04/08/24 13:20 FiO2 35 04/08/24 13:20 BMI result Body Mass Index 25.1 General: AO X 3, no acute distress Resp: air entry is fair ,slightly diminshed at bases ,no rales or wheezing CVS: S1,S2,RRR GI: +BS, NT, no distention Skin: No rash Neuro: motor grossly intact Psych: appropriate affect Objective Data Active Medications Acetaminophen (Acetaminophen 325 Mg Tablet) 650 mg PO Q6H PRN PRN Reason: Pain, Mild 1-3,fever,headache Last Admin: 04/09/24 07:46 Dose: 650 mg Documented By: SHANNAN Comments: Notified MD Addison patient rated pain 8/10 and he telephone ordered to give Tylenol first. Amiodarone HCl (Amiodarone Hcl 200 Mg Tablet) 200 mg PO DAILY [facility] Last Admin: 04/09/24 07:48 Dose: 200 mg Documented By: SHANNAN Ascorbic Acid (Ascorbic Acid 250 Mg Tablet) 250 mg PO BID [facility] Last Admin: 04/09/24 07:46 Dose: 250 mg Documented By: SHANNAN Calcium Carbonate/Cholecalciferol (Calcium + Vitamin D 250 Mg Tablet) 250 mg PO DAILY [facility] Last Admin: 04/09/24 07:46 Dose: 250 mg Documented By: SHANNAN Cholestyramine Resin (Cholestyramine (With Sugar) 4 Gm Powd.Pack) 2 gm PO BIDWM [facility] Last Admin: 04/09/24 07:48 Dose: 2 gm Documented By: SHANNAN Ferrous Sulfate (Ferrous Sulfate 324 Mg Tablet.) 324 mg PO BID [facility] Last Admin: 04/09/24 07:46 Dose: 324 mg Documented By: SHANNAN Fluconazole (Fluconazole 100 Mg Tablet) 100 mg PO DAILY [facility] Last Admin: 04/09/24 07:46 Dose: 100 mg Documented By: SHANNAN Octreotide Acetate 500 mcg/ (Sodium Chloride) 501 mls @ 50.1 mls/hr IVCONT .Q10H [facility] Last Admin: 04/09/24 08:47 Dose: 50 mcg/hr, 50.1 mls/hr Documented By: SHANNAN Loperamide HCl (Loperamide Hcl 2 Mg Capsule) 4 mg PO Q4H PRN PRN Reason: Diarrhea Last Admin: 04/08/24 03:26 Dose: 4 mg Documented By: STEPHANE Melatonin (Melatonin 3 Mg Tablet) 6 mg PO BEDTIME PRN PRN Reason: Insomnia Meropenem (Meropenem 500 Mg Vial) 500 mg IVPUSH Q24H [facility] Last Admin: 04/08/24 16:39 Dose: 500 mg Documented By: SHANNAN Metoprolol Tartrate (Metoprolol Tartrate 25 Mg Tablet) 25 mg PO Q6H [facility]; Protocol Last Admin: 04/09/24 03:41 Dose: 25 mg Documented By: EVELYN Naloxone HCl (Naloxone Hcl 0.4 Mg/Ml Vial) 0.04 mg IVPUSH Q5M PRN PRN Reason: Excessive sedation or RR < 8 Ondansetron HCl (Ondansetron Hcl 4 Mg/2 Ml Vial) 4 mg IVPUSH Q8H PRN PRN Reason: Nausea and Vomiting Labs 04/09/24 06:44 04/09/24 06:44 Labs: Laboratory Results - last 24 hr 04/09/24 06:44 MCV 102.6 H MCH 31.4 MCHC 30.6 L RDW 19.1 H Plt Count 59 L MPV 12.3 Absolute Nucleated RBC 0.000 Nucleated RBC % (auto) 0.0 Anion Gap 11 L Estim Creat Clear Calc 32.7 Estimated GFR 35 Random Glucose 85 Calcium 6.9 L Microbiology Microbiology Results: Microbiology 04/08/24 13:30 Urine Culture - Preliminary Urine Other - Nephrostomy Culture in progress. Assessment and Plan (1) Thrombocytopenia: Status: Acute (2) Acute blood loss anemia: Status: Acute Assessment and Plan: 78-year-old male with history of ESRD on HD MWF, colorectal cancer status post low anterior resection with diverting loop ileostomy and reversal at [facility], recurrent c diff, chronic R hydonephrosis, and atrial fibrillation on Eliquis who presents to the emergency department on 03/25/24 with persistent diarrhea 3-4x/day with associated weakness, was transfered to ICU on same day due to shock/hypotension, hospital course complicated by bacteremia and GIB with acute blood loss anemia Colonized EPEC, 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 Klebsiela Oxytosa babteremia On meropenem CT abdomen finding looks unchanged right-sided hydro-recommended to repeat culture urine pending . on mrcpComplex hemorrhagic exophytic lesion, left kidney.Blood products versus purulent material versus neoplasm resulting in dilatation of the right pelvicalyceal system.-S/PRight retrograde with right ureteroscopy diagnostic:Right obstructed distal ureter-As per urology might be source for infection -s/p right PCN on 04/08 Gi issues: In addition initial CT scan shows question of CBD dilation, LFTs are normal-patient does not have abdominal pain. 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 GI bleeding acute blood loss anemia s/p 3 units of RBC, S/p EGD on 03/29 : gastritis,duodenitis candidal esophagitis-added fluconazole(d/w GI). 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 Diarrhea, h/o Cdif, negative Cdif this time. Imodium PRN Po Vancomycin 125 mg qid while on antibiotics and 48 h after and then 125 m,w,fri per ID recommendation. patient need Gi follow up for mrcp findings as well decide duration of iv octerotide. Thrombocytopenia, acute on chronic: iron and TIBC low, LDH mildly elevated Platelets improving to 73 H&H is flactuating from 8 to 8.5 monitor CBC, Gi and hematology following. End-stage renal disease on HD MWF patient will need hd catheter placed back on 04/07/24. Acute Lactic acidosis- likely secondary to dehydration and ESRD. Chronic Atrial fibrillation, Holding eliquis in light of recent gib and low platlets will ask GI and profound anemia, requireing multiple transfusion hr stable on amio and metoprolol. Quality Stroke Does the patient have a stroke diagnosis?: No VTE Prior VTE?: No VTE Risk Level:: Medical - moderate - high VTE Device Contraindication: Treatment Not Indicated VTE Drug Contraindication: N/A - Med Ordered
--- NOTE | 2024-04-09 12:33 | MHC.CM.PN ---
EMR REVIEWED, PT W/BACTEREMIA/MULTIPE ISSUES, S/P CYSTOSCOPY AND RIGHT NEPHROSTOMY TUBE 04/08, NO PLAN FOR DC AT THIS TIME, CM WILL CONT TO FOLLOW DC NEEDS.
[2024-04-09] MEDS: Meropenem 500 MG VIAL IVPUSH (16:51)
[2024-04-10] VITALS (7 sets, daily range): BP systolic 99–166; BP diastolic 50–77; PULSE 58–61; RESP 16–20; TEMP 36.4–37.1; O2SAT 93–100
[2024-04-10] MEDS: Octreotide Acetate 500 MCG in 0.9 % Sodium Chloride 500 ML 50.1 MCG IVCONT ×2 (03:54→13:47)
[2024-04-10] MEDS: Metoprolol Tartrate 25 MG TABLET PO ×3 (03:54→17:33)
[2024-04-10] MEDS: Cholestyramine (With Sugar) 4 GM POWD.PACK 2 GM PO ×2 (08:19→17:34)
[2024-04-10] MEDS: Ascorbic Acid 250 MG TABLET PO ×2 (08:19→21:37)
[2024-04-10] MEDS: Fluconazole 100 MG TABLET PO (08:19)
[2024-04-10] MEDS: Calcium + Vitamin D 250 MG TABLET PO (08:20)
[2024-04-10] MEDS: Ferrous Sulfate 324 MG TABLET.DR PO ×2 (08:20→21:37)
[2024-04-10] MEDS: Amiodarone HCL 200 MG TABLET PO (08:20)
--- NOTE | 2024-04-10 09:39 | P.PNUR_ITS ---
Subjective Subjective Date of Service: 04/10/24 Interval history: Right nephrostomy tube has been placed Order right draining nephrostogram to delineate lower right ureteric anatomy Physical Exam 2 Vital Signs: Vital Signs: Last Vital Signs Temp 98.0 F 04/10/24 08:00 Pulse 60 04/10/24 08:00 Resp 20 04/10/24 08:00 BP 129/51 L 04/10/24 08:00 Pulse Ox 98 04/10/24 08:00 O2 Del Method Room Air 04/10/24 08:00 O2 Flow Rate 2 04/08/24 13:20 FiO2 35 04/08/24 13:20 BMI result Body Mass Index 25.1 Const: General: cooperative, healthy appearing, comfortable and no acute distress Orientation/consciousness: patient oriented x3 HEENT: Face and sinus: Yes normal facial exam Mouth: moist mucous membranes Neck: Neck: Yes normal visual inspection, Yes full ROM and Yes trachea midline Chest: Chest palpation & inspection: normal inspection of the chest Resp: Effort & Inspection: normal respiratory effort, able to speak in complete sentences and no respiratory distress GI: Inspection: Yes normal to inspection Back/Spine/Pelvis: Cervical Spine: normal cervical lordosis Thoracic/Lumbar Spine: thoracic and lumbar spine normal to inspection Skin: General skin exam: no rashes or lesions noted Neuro: General: patient oriented x3, tone normal and moves all extremities Extrem: General: Yes normal to inspection and Yes capillary refill normal Urology Results Labs 04/09/24 06:44 04/09/24 06:44 Progress Note: A&P Assessment and plan (1) Acquired stricture of ureter: Status: Acute Plan Draining nephrostogram Time Spent With Patient Time: Total time managing care of this patient today ____ minutes. Progress Note: Quality Stroke Does the patient have a stroke diagnosis?: No
--- NOTE | 2024-04-10 11:44 | MHC.CLN ---
F/U PO INTAKE 50-100% DIET RX: 2 GRAM SODIUM PRESSURE INJURY TO COCCYX RECEIVING ENSURE CLEAR TID TO PROMOTE WOUND HEALING SUPPLEMENT PROVIDES 720 KCALS, 24 G PROTEIN (AND RENAL FRIENDLY) MONITOR PO INTAKE AND ENCOURAGE SUPPLEMENTS
--- NOTE | 2024-04-10 12:46 | HO.PM.IMPN ---
Subjective Subjective Date of Service: 04/10/24 Interval History: f/u recurrent bacteremia, line sepsis, esrd, dialysis cath replaced, last blood cultures are negative over 5 days Physical Exam Vital Signs: Vital Signs: Last Vital Signs Temp 98.5 F 04/10/24 12:00 Pulse 61 04/10/24 12:00 Resp 20 04/10/24 12:00 BP 106/56 L 04/10/24 12:00 Pulse Ox 100 04/10/24 12:00 O2 Del Method Room Air 04/10/24 12:00 O2 Flow Rate 2 04/08/24 13:20 FiO2 35 04/08/24 13:20 BMI result Body Mass Index 25.1 General: AO X 3, no acute distress Resp: air entry is fair ,slightly diminshed at bases ,no rales or wheezing CVS: S1,S2,RRR GI: +BS, NT, no distention Skin: No rash Neuro: motor grossly intact Psych: appropriate affect Objective Data Active Medications Acetaminophen (Acetaminophen 325 Mg Tablet) 650 mg PO Q6H PRN PRN Reason: Pain, Mild 1-3,fever,headache Last Admin: 04/09/24 16:51 Dose: 650 mg Documented By: SHANNAN Amiodarone HCl (Amiodarone Hcl 200 Mg Tablet) 200 mg PO DAILY [facility] Last Admin: 04/10/24 08:20 Dose: 200 mg Documented By: DES Ascorbic Acid (Ascorbic Acid 250 Mg Tablet) 250 mg PO BID [facility] Last Admin: 04/10/24 08:19 Dose: 250 mg Documented By: DES Calcium Carbonate/Cholecalciferol (Calcium + Vitamin D 250 Mg Tablet) 250 mg PO DAILY [facility] Last Admin: 04/10/24 08:20 Dose: 250 mg Documented By: DES Cholestyramine Resin (Cholestyramine (With Sugar) 4 Gm Powd.Pack) 2 gm PO BIDWM [facility] Last Admin: 04/10/24 08:19 Dose: 2 gm Documented By: DES Ferrous Sulfate (Ferrous Sulfate 324 Mg Tablet.Dr) 324 mg PO BID [facility] Last Admin: 04/10/24 08:20 Dose: 324 mg Documented By: DES Fluconazole (Fluconazole 100 Mg Tablet) 100 mg PO DAILY [facility] Last Admin: 04/10/24 08:19 Dose: 100 mg Documented By: DES Octreotide Acetate 500 mcg/ (Sodium Chloride) 501 mls @ 50.1 mls/hr IVCONT .Q10H [facility] Last Admin: 04/10/24 03:54 Dose: 50 mcg/hr, 50.1 mls/hr Documented By: EVELYN Loperamide HCl (Loperamide Hcl 2 Mg Capsule) 4 mg PO Q4H PRN PRN Reason: Diarrhea Last Admin: 04/08/24 03:26 Dose: 4 mg Documented By: STEPHANE Melatonin (Melatonin 3 Mg Tablet) 6 mg PO BEDTIME PRN PRN Reason: Insomnia Meropenem (Meropenem 500 Mg Vial) 500 mg IVPUSH Q24H [facility] Last Admin: 04/09/24 16:51 Dose: 500 mg Documented By: SHANNAN Metoprolol Tartrate (Metoprolol Tartrate 25 Mg Tablet) 25 mg PO Q6H [facility]; Protocol Last Admin: 04/10/24 10:42 Dose: 25 mg Documented By: DES Naloxone HCl (Naloxone Hcl 0.4 Mg/Ml Vial) 0.04 mg IVPUSH Q5M PRN PRN Reason: Excessive sedation or RR < 8 Ondansetron HCl (Ondansetron Hcl 4 Mg/2 Ml Vial) 4 mg IVPUSH Q8H PRN PRN Reason: Nausea and Vomiting Labs 04/09/24 06:44 04/09/24 06:44 Microbiology Microbiology Results: Microbiology 04/08/24 13:30 Urine Culture - Preliminary Urine Other - Nephrostomy Yeast Assessment and Plan (1) Thrombocytopenia: Status: Acute (2) Acute blood loss anemia: Status: Acute Assessment and Plan: 78-year-old male with history of ESRD on HD MWF, colorectal cancer status post low anterior resection with diverting loop ileostomy and reversal at [facility], recurrent c diff, chronic R hydonephrosis, and atrial fibrillation on Eliquis who presents to the emergency department on 03/25/24 with persistent diarrhea 3-4x/day with associated weakness, was transfered to ICU on same day due to shock/hypotension, hospital course complicated by bacteremia and GIB with acute blood loss anemia Colonized EPEC, 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 Klebsiela Oxytosa babteremia On meropenem CT abdomen finding looks unchanged right-sided hydro-recommended to repeat culture culture yeast likely on mrcpComplex hemorrhagic exophytic lesion, left kidney.Blood products versus purulent material versus neoplasm resulting in dilatation of the right pelvicalyceal system.-S/PRight retrograde with right ureteroscopy diagnostic:Right obstructed distal ureter-As per urology might be source for infection -s/p right PCN on 04/08, to have nephrostogram today Gi issues: In addition initial CT scan shows question of CBD dilation, LFTs are normal-patient does not have abdominal pain. 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 GI bleeding acute blood loss anemia s/p 3 units of RBC, S/p EGD on 03/29 : gastritis,duodenitis candidal esophagitis-added fluconazole(d/w GI). 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 Diarrhea, h/o Cdif, negative Cdif this time. Imodium PRN Po Vancomycin 125 mg qid while on antibiotics and 48 h after and then 125 m,w,fri per ID recommendation. patient need Gi follow up for mrcp findings as well decide duration of iv octerotide. Thrombocytopenia, acute on chronic: iron and TIBC low, LDH mildly elevated Platelets improving to 73 H&H is flactuating from 8 to 8.5 monitor CBC, Gi and hematology following. End-stage renal disease on HD MWF patient will need hd catheter placed back on 04/07/24. Acute Lactic acidosis- likely secondary to dehydration and ESRD. Chronic Atrial fibrillation, Holding eliquis in light of recent gib and low platlets will ask GI and profound anemia, requireing multiple transfusion hr stable on amio and metoprolol. Quality Stroke Does the patient have a stroke diagnosis?: No VTE Prior VTE?: No VTE Risk Level:: Medical - moderate - high VTE Device Contraindication: Treatment Not Indicated VTE Drug Contraindication: N/A - Med Ordered
--- NOTE | 2024-04-10 15:04 | MHC.CM.PN ---
EMR REVIEWED, P.T. RECOMMENDING STR, [facility], [facility] [phone], PT AND PT'S AGREEABLE TO REF TO [facility], PT HAS OUTPT HD AT [facility], CM WILL CONT TO FOLLOW DC NEEDS.
[2024-04-10] MEDS: Meropenem 500 MG VIAL IVPUSH (17:34)
[2024-04-11] VITALS (10 sets, daily range): BP systolic 125–153; BP diastolic 63–83; PULSE 54–65; RESP 14–20; TEMP 36.1–36.6; O2SAT 90–98
[2024-04-11] MEDS: Loperamide HCl 2 MG CAPSULE 4 MG PO ×2 (00:46→21:47)
[2024-04-11] MEDS: Octreotide Acetate 500 MCG in 0.9 % Sodium Chloride 500 ML 50.1 MCG IVCONT ×3 (01:29→22:05)
[2024-04-11] MEDS: Metoprolol Tartrate 25 MG TABLET PO ×4 (04:33→21:47)
[2024-04-11] MEDS: Calcium + Vitamin D 250 MG TABLET PO (09:34)
[2024-04-11] MEDS: Cholestyramine (With Sugar) 4 GM POWD.PACK 2 GM PO ×2 (09:34→16:52)
[2024-04-11] MEDS: Fluconazole 100 MG TABLET PO (09:36)
[2024-04-11] MEDS: Ascorbic Acid 250 MG TABLET PO ×2 (09:36→21:47)
[2024-04-11] MEDS: Amiodarone HCL 200 MG TABLET PO (09:36)
[2024-04-11] MEDS: Ferrous Sulfate 324 MG TABLET.DR PO ×2 (09:36→21:47)
[2024-04-11 12:22] LABS: VITAMIN D (1,25 OH) D3 10 pg/mL; Vit D (1,25-Dihydroxy) Total 10 pg/mL (18-72); Vitamin D (1,25 OH) D2 <8 pg/mL
--- NOTE | 2024-04-11 13:07 | MHC.CLN ---
F/U PO INTAKE 50-100% DIET RX: 2 GRAM SODIUM PRESSURE INJURY TO COCCYX CONTINUE RECEIVING ENSURE CLEAR TID TO PROMOTE WOUND HEALING SUPPLEMENT PROVIDES 720 KCALS, 24 G PROTEIN (AND RENAL FRIENDLY) MONITOR PO INTAKE AND ENCOURAGE SUPPLEMENTS
--- NOTE | 2024-04-11 13:13 | P.PNUR_ITS ---
Subjective Subjective Date of Service: 04/11/24 Interval history: Result from nephrostomy drainage culture - fungus Will need to treat based on ID recommendations Nephrostogram shows disruption of distal right ureter with no drainage into bladder Most likely this occurred during colostomy reversal performed at [facility] Once patient is stabilized from this current infection recommend referral back to [facility] for management of right kidney Physical Exam 2 Vital Signs: Vital Signs: Last Vital Signs Temp 97.6 F 04/11/24 11:46 Pulse 65 04/11/24 11:46 Resp 18 04/11/24 11:46 BP 131/63 04/11/24 11:46 Pulse Ox 90 L 04/11/24 11:46 O2 Del Method Room Air 04/11/24 11:46 O2 Flow Rate 2 04/08/24 13:20 FiO2 35 04/08/24 13:20 BMI result Body Mass Index 25.1 Const: General: cooperative, healthy appearing, comfortable and no acute distress Orientation/consciousness: patient oriented x3 HEENT: Face and sinus: Yes normal facial exam Mouth: moist mucous membranes Neck: Neck: Yes normal visual inspection, Yes full ROM and Yes trachea midline Chest: Chest palpation & inspection: normal inspection of the chest Resp: Effort & Inspection: normal respiratory effort, able to speak in complete sentences and no respiratory distress GI: Inspection: Yes normal to inspection Back/Spine/Pelvis: Cervical Spine: normal cervical lordosis Thoracic/Lumbar Spine: thoracic and lumbar spine normal to inspection Skin: General skin exam: no rashes or lesions noted Neuro: General: patient oriented x3, tone normal and moves all extremities Extrem: General: Yes normal to inspection and Yes capillary refill normal Urology Results Labs 04/09/24 06:44 04/09/24 06:44 Labs: Laboratory Results - last 24 hr 04/05/24 06:38 1,25 Dihydroxy Vit D 10 L 1,25 Dihydroxy Vit D2 <8 1,25 Dihydroxy Vit D3 10 Progress Note: A&P Assessment and plan (1) Acquired stricture of ureter: Status: Acute Plan Treat fungal pyelonephritis Refer back to [facility] for management of urologic complication following abdominal surgery Time Spent With Patient Time: Total time managing care of this patient today ____ minutes. Progress Note: Quality Stroke Does the patient have a stroke diagnosis?: No
--- NOTE | 2024-04-11 15:25 | MHC.CM.PN ---
EMR REVIEWED, PER HOSPITALIST PT NOT YET MEDICALLY CLEARED FOR DC, PT AND PT'S AGREEABLE TO [facility] HOWEVER THEY DO NOT HAVE BED, REFER EXPANDED TO [facility] D/T HD AVAILABLE, PT HAS OUTPT AT [facility], [facility], WILL NEED AUTH AND CM TO CON[facility]CT [facility] W[facility]NAME OF FACILITY ONCE MEDICALLY CLEARED, CM WILL CONT TO FOLLOW DC NEEDS.
[2024-04-11] MEDS: Meropenem 500 MG VIAL IVPUSH (16:52)
[2024-04-12 02:51] VITALS: BP 133/65; PULSE 58; RESP 19; TEMP 36.4; O2SAT 97
[2024-04-12 04:22] VITALS: BP 133/65; PULSE 58
[2024-04-12] MEDS: Metoprolol Tartrate 25 MG TABLET PO ×3 (04:22→17:05)
[2024-04-12 07:48] VITALS: BP 136/60; PULSE 60; RESP 18; TEMP 36.8; O2SAT 91
[2024-04-12] MEDS: Octreotide Acetate 500 MCG in 0.9 % Sodium Chloride 500 ML 50.1 MCG IVCONT (08:56)
[2024-04-12 11:27] VITALS: BP 156/65; PULSE 60; RESP 16; TEMP 36.8; O2SAT 97
[2024-04-12] MEDS: Ascorbic Acid 250 MG TABLET PO ×2 (11:45→21:27)
[2024-04-12] MEDS: Ferrous Sulfate 324 MG TABLET.DR PO ×2 (11:45→21:27)
[2024-04-12] MEDS: Amiodarone HCL 200 MG TABLET PO (11:45)
[2024-04-12] MEDS: Calcium + Vitamin D 250 MG TABLET PO (11:45)
[2024-04-12] MEDS: Cholestyramine (With Sugar) 4 GM POWD.PACK 2 GM PO ×2 (11:47→17:05)
[2024-04-12] MEDS: Loperamide HCl 2 MG CAPSULE 4 MG PO ×3 (11:47→21:27)
--- NOTE | 2024-04-12 14:40 | HO.PM.IMPN ---
Subjective Subjective Date of Service: 04/12/24 Interval History: f/u recurrent bacteremia, line sepsis, esrd, dialysis cath replaced, last blood cultures are negative over 5 days pt is still reporting lots of diarrhea Physical Exam Vital Signs: Vital Signs: Last Vital Signs Temp 98.2 F 04/12/24 11:27 Pulse 60 04/12/24 11:27 Resp 16 04/12/24 11:27 BP 156/65 H 04/12/24 11:27 Pulse Ox 97 04/12/24 11:27 O2 Del Method Room Air 04/12/24 11:27 O2 Flow Rate 2 04/08/24 13:20 FiO2 35 04/08/24 13:20 BMI result Body Mass Index 25.1 General: AO X 3, no acute distress Resp: air entry is fair ,slightly diminshed at bases ,no rales or wheezing CVS: S1,S2,RRR GI: +BS, NT, no distention Skin: No rash Neuro: motor grossly intact Psych: appropriate affect Objective Data Active Medications Acetaminophen (Acetaminophen 325 Mg Tablet) 650 mg PO Q6H PRN PRN Reason: Pain, Mild 1-3,fever,headache Last Admin: 04/09/24 16:51 Dose: 650 mg Documented By: SHANNAN Amiodarone HCl (Amiodarone Hcl 200 Mg Tablet) 200 mg PO DAILY [facility] Last Admin: 04/12/24 11:45 Dose: 200 mg Documented By: LEAH Ascorbic Acid (Ascorbic Acid 250 Mg Tablet) 250 mg PO BID [facility] Last Admin: 04/12/24 11:45 Dose: 250 mg Documented By: LEAH Calcium Carbonate/Cholecalciferol (Calcium + Vitamin D 250 Mg Tablet) 250 mg PO DAILY [facility] Last Admin: 04/12/24 11:45 Dose: 250 mg Documented By: LEAH Cholestyramine Resin (Cholestyramine (With Sugar) 4 Gm Powd.Pack) 2 gm PO BIDWM [facility] Last Admin: 04/12/24 11:47 Dose: 2 gm Documented By: LEAH Ferrous Sulfate (Ferrous Sulfate 324 Mg Tablet.Dr) 324 mg PO BID [facility] Last Admin: 04/12/24 11:45 Dose: 324 mg Documented By: LEAH Octreotide Acetate 500 mcg/ (Sodium Chloride) 501 mls @ 50.1 mls/hr IVCONT .Q10H [facility] Last Admin: 04/12/24 08:56 Dose: 50 mcg/hr, 50.1 mls/hr Documented By: SHARMAINE Loperamide HCl (Loperamide Hcl 2 Mg Capsule) 4 mg PO Q4H PRN PRN Reason: Diarrhea Last Admin: 04/12/24 11:47 Dose: 4 mg Documented By: LEAH Melatonin (Melatonin 3 Mg Tablet) 6 mg PO BEDTIME PRN PRN Reason: Insomnia Meropenem (Meropenem 500 Mg Vial) 500 mg IVPUSH Q24H [facility] Last Admin: 04/11/24 16:52 Dose: 500 mg Documented By: DES Metoprolol Tartrate (Metoprolol Tartrate 25 Mg Tablet) 25 mg PO Q6H [facility]; Protocol Last Admin: 04/12/24 11:45 Dose: 25 mg Documented By: LEAH Naloxone HCl (Naloxone Hcl 0.4 Mg/Ml Vial) 0.04 mg IVPUSH Q5M PRN PRN Reason: Excessive sedation or RR < 8 Ondansetron HCl (Ondansetron Hcl 4 Mg/2 Ml Vial) 4 mg IVPUSH Q8H PRN PRN Reason: Nausea and Vomiting Labs 04/09/24 06:44 04/09/24 06:44 Microbiology Microbiology Results: Microbiology 04/08/24 13:30 Urine Culture - Preliminary Urine Other - Nephrostomy Cristal albicans Gram positive cocci Assessment and Plan (1) Thrombocytopenia: Status: Acute (2) Acute blood loss anemia: Status: Acute Assessment and Plan: 78-year-old male with history of ESRD on HD MWF, colorectal cancer status post low anterior resection with diverting loop ileostomy and reversal at [facility], recurrent c diff, chronic R hydonephrosis, and atrial fibrillation on Eliquis who presents to the emergency department on 03/25/24 with persistent diarrhea 3-4x/day with associated weakness, was transfered to ICU on same day due to shock/hypotension, hospital course complicated by bacteremia and GIB with acute blood loss anemia Colonized EPEC, 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 Klebsiela Oxytosa babteremia On meropenem CT abdomen finding looks unchanged right-sided hydro-recommended to repeat culture culture yeast likely on mrcpComplex hemorrhagic exophytic lesion, left kidney.Blood products versus purulent material versus neoplasm resulting in dilatation of the right pelvicalyceal system.-S/PRight retrograde with right ureteroscopy diagnostic:Right obstructed distal ureter-As per urology might be source for infection -s/p right PCN on 04/08, to have nephrostogram today. Per ID has completed enough Abx Gi issues: In addition initial CT scan shows question of CBD dilation, LFTs are normal-patient does not have abdominal pain. 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 Diarrhea, h/o Cdif, negative Cdif this time. Imodium PRN Po Vancomycin 125 mg qid while on antibiotics and 48 h after and then 125 m,w,fri per ID recommendation. patient need Gi follow up for mrcp findings as well decide duration of iv octerotide. Thrombocytopenia, acute on chronic: iron and TIBC low, LDH mildly elevated Platelets improving to 73 H&H is flactuating from 8 to 8.5 monitor CBC, Gi and hematology following. End-stage renal disease on HD MWF patient will need hd catheter placed back on 04/07/24. Acute Lactic acidosis- likely secondary to dehydration and ESRD. Chronic Atrial fibrillation, Holding eliquis in light of recent gib and low platlets will ask GI and profound anemia, requireing multiple transfusion hr stable on amio and metoprolol. Quality Stroke Does the patient have a stroke diagnosis?: No VTE Prior VTE?: No VTE Risk Level:: Medical - moderate - high VTE Device Contraindication: Treatment Not Indicated VTE Drug Contraindication: N/A - Med Ordered
[2024-04-12] MEDS: vancomycin HCL 125 MG CAPSULE PO ×2 (15:31→21:27)
[2024-04-12 16:00] VITALS: BP 119/64; PULSE 60; RESP 18; TEMP 37.3; O2SAT 96
[2024-04-12] MEDS: Meropenem 500 MG VIAL IVPUSH (17:05)
[2024-04-12 17:32] LABS: CDiff Gene PCR POSITIVE (Negative)
[2024-04-12 18:06] LABS: CDiff Toxin Negative (Negative)
[2024-04-12 18:07] LABS: CDIFF Internal ctrl Dots and bkg OK (V)
[2024-04-12 20:00] VITALS: BP 142/65; PULSE 60; RESP 14; TEMP 36.2; O2SAT 94
[2024-04-13] VITALS (9 sets, daily range): BP systolic 123–149; BP diastolic 58–73; PULSE 59–60; RESP 14–20; TEMP 36.2–37.2; O2SAT 92–97
[2024-04-13] MEDS: Octreotide Acetate 500 MCG in 0.9 % Sodium Chloride 500 ML 50.1 MCG IVCONT ×3 (00:16→21:32)
[2024-04-13] MEDS: Metoprolol Tartrate 25 MG TABLET PO ×4 (03:37→21:32)
[2024-04-13] MEDS: vancomycin HCL 125 MG CAPSULE PO ×2 (03:37→07:56)
[2024-04-13] MEDS: Loperamide HCl 2 MG CAPSULE 4 MG PO ×2 (03:38→07:55)
[2024-04-13] MEDS: Calcium + Vitamin D 250 MG TABLET PO (07:56)
[2024-04-13] MEDS: Ferrous Sulfate 324 MG TABLET.DR PO ×2 (07:56→21:31)
[2024-04-13] MEDS: Ascorbic Acid 250 MG TABLET PO ×2 (07:56→21:32)
[2024-04-13] MEDS: Amiodarone HCL 200 MG TABLET PO (07:56)
[2024-04-13] MEDS: Cholestyramine (With Sugar) 4 GM POWD.PACK 2 GM PO ×2 (07:57→17:01)
--- NOTE | 2024-04-13 12:52 | P.PNIM_ITS ---
Subjective Subjective Date of Service: 04/13/24 Interval History: f/u recurrent bacteremia, line sepsis, esrd, dialysis cath replaced, last blood cultures are negative over 5 days pt is still reporting lots of diarrhea, C dif is postive again but appears to be colonization Physical Exam 2 Vital Signs: Vital Signs: Last Vital Signs Temp 99.0 F 04/13/24 12:00 Pulse 60 04/13/24 12:00 Resp 18 04/13/24 12:00 BP 139/66 04/13/24 12:00 Pulse Ox 96 04/13/24 12:00 O2 Del Method Room Air 04/13/24 12:00 O2 Flow Rate 2 04/08/24 13:20 FiO2 35 04/08/24 13:20 BMI result Body Mass Index 25.1 General: AO X 3, no acute distress Resp: air entry is fair ,slightly diminshed at bases ,no rales or wheezing CVS: S1,S2,RRR GI: +BS, NT, no distention Skin: No rash Neuro: motor grossly intact Psych: appropriate affect Const: Other: General: AO X 3, no acute distress Resp: air entry is fair ,slightly diminshed at bases ,no rales or wheezing CVS: S1,S2,RRR GI: +BS, NT, no distention Skin: No rash Neuro: motor grossly intact Psych: appropriate affect Objective Data Active Medications Acetaminophen (Acetaminophen 325 Mg Tablet) 650 mg PO Q6H PRN PRN Reason: Pain, Mild 1-3,fever,headache Last Admin: 04/09/24 16:51 Dose: 650 mg Documented By: SHANNAN Amiodarone HCl (Amiodarone Hcl 200 Mg Tablet) 200 mg PO DAILY [facility] Last Admin: 04/13/24 07:56 Dose: 200 mg Documented By: LEAH Ascorbic Acid (Ascorbic Acid 250 Mg Tablet) 250 mg PO BID [facility] Last Admin: 04/13/24 07:56 Dose: 250 mg Documented By: LEAH Calcium Carbonate/Cholecalciferol (Calcium + Vitamin D 250 Mg Tablet) 250 mg PO DAILY [facility] Last Admin: 04/13/24 07:56 Dose: 250 mg Documented By: LEAH Cholestyramine Resin (Cholestyramine (With Sugar) 4 Gm Powd.Pack) 2 gm PO BIDWM [facility] Last Admin: 04/13/24 07:57 Dose: 2 gm Documented By: LEAH Diphenoxylate HCl/Atropine (Diphenoxylate/Atrop 2.5/0.025 Tablet) 1 tab PO QID PRN PRN Reason: Diarrhea Ferrous Sulfate (Ferrous Sulfate 324 Mg Tablet.) 324 mg PO BID [facility] Last Admin: 04/13/24 07:56 Dose: 324 mg Documented By: LEAH Octreotide Acetate 500 mcg/ (Sodium Chloride) 501 mls @ 50.1 mls/hr IVCONT .Q10H [facility] Last Admin: 04/13/24 10:31 Dose: 50 mcg/hr, 50.1 mls/hr Documented By: LEAH Loperamide HCl (Loperamide Hcl 2 Mg Capsule) 4 mg PO Q4H PRN PRN Reason: Diarrhea Last Admin: 04/13/24 07:55 Dose: 4 mg Documented By: LEAH Melatonin (Melatonin 3 Mg Tablet) 6 mg PO BEDTIME PRN PRN Reason: Insomnia Meropenem (Meropenem 500 Mg Vial) 500 mg IVPUSH Q24H [facility] Last Admin: 04/12/24 17:05 Dose: 500 mg Documented By: LEAH Metoprolol Tartrate (Metoprolol Tartrate 25 Mg Tablet) 25 mg PO Q6H [facility]; Protocol Last Admin: 04/13/24 10:33 Dose: 25 mg Documented By: LEAH Naloxone HCl (Naloxone Hcl 0.4 Mg/Ml Vial) 0.04 mg IVPUSH Q5M PRN PRN Reason: Excessive sedation or RR < 8 Ondansetron HCl (Ondansetron Hcl 4 Mg/2 Ml Vial) 4 mg IVPUSH Q8H PRN PRN Reason: Nausea and Vomiting Vancomycin HCl (Vancomycin Hcl 125 Mg Capsule) 125 mg PO Q6H [facility] Last Admin: 04/13/24 07:56 Dose: 125 mg Documented By: LEAH Labs 04/09/24 06:44 04/09/24 06:44 Labs: Laboratory Results - last 24 hr 04/12/24 15:36 C. difficile Tox B Gene POSITIVE A* C. difficile Toxin A&B Negative C. difficile Interpret SEE NOTE Microbiology Microbiology Results: Microbiology 04/08/24 13:30 Urine Culture - Preliminary Urine Other - Nephrostomy Cristal albicans Gram positive cocci Assessment and Plan (1) Thrombocytopenia: Status: Acute (2) Acute blood loss anemia: Status: Acute Assessment and Plan: 78-year-old male with history of ESRD on HD MWF, colorectal cancer status post low anterior resection with diverting loop ileostomy and reversal at [facility], recurrent c diff, chronic R hydonephrosis, and atrial fibrillation on Eliquis who presents to the emergency department on 03/25/24 with persistent diarrhea 3-4x/day with associated weakness, was transfered to ICU on same day due to shock/hypotension, hospital course complicated by bacteremia and GIB with acute blood loss anemia Colonized EPEC, 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 Klebsiela Oxytosa babteremia On meropenem CT abdomen finding looks unchanged right-sided hydro-recommended to repeat culture culture yeast likely on mrcpComplex hemorrhagic exophytic lesion, left kidney.Blood products versus purulent material versus neoplasm resulting in dilatation of the right pelvicalyceal system.-S/PRight retrograde with right ureteroscopy diagnostic:Right obstructed distal ureter-As per urology might be source for infection -s/p right PCN on 04/08, to have nephrostogram today. Per ID has completed enoug meropenem Gi issues: In addition initial CT scan shows question of CBD dilation, LFTs are normal-patient does not have abdominal pain. 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 Diarrhea, h/o Cdif, positive toxin A, likely colonization, in light of diarrhea however , will treat PO vanco didn't seem to make a difference, change to dificid patient need Gi follow up for mrcp findings as well decide duration of iv octerotide. Thrombocytopenia, acute on chronic: iron and TIBC low, LDH mildly elevated Platelets improving to 73 H&H is flactuating from 8 to 8.5 monitor CBC, Gi and hematology following. End-stage renal disease on HD MWF patient will need hd catheter placed back on 04/07/24. Acute Lactic acidosis- likely secondary to dehydration and ESRD. Chronic Atrial fibrillation, Holding eliquis in light of recent gib and low platlets will ask GI and profound anemia, requireing multiple transfusion hr stable on amio and metoprolol. Quality Stroke Does the patient have a stroke diagnosis?: No VTE Prior VTE?: No VTE Risk Level:: Medical - moderate - high VTE Device Contraindication: Treatment Not Indicated VTE Drug Contraindication: N/A - Med Ordered
[2024-04-13] MEDS: Fidaxomicin 200 MG TABLET PO ×2 (13:46→23:28)
[2024-04-14] VITALS (7 sets, daily range): BP systolic 120–155; BP diastolic 60–68; PULSE 60–66; RESP 14–18; TEMP 36.2–36.7; O2SAT 93–97
[2024-04-14] MEDS: Metoprolol Tartrate 25 MG TABLET PO ×4 (04:20→22:07)
[2024-04-14] MEDS: Ascorbic Acid 250 MG TABLET PO ×2 (08:19→22:06)
[2024-04-14] MEDS: Calcium + Vitamin D 250 MG TABLET PO (08:19)
[2024-04-14] MEDS: Cholestyramine (With Sugar) 4 GM POWD.PACK 2 GM PO ×2 (08:19→17:27)
[2024-04-14] MEDS: Amiodarone HCL 200 MG TABLET PO (08:19)
[2024-04-14] MEDS: Ferrous Sulfate 324 MG TABLET.DR PO ×2 (08:19→22:05)
[2024-04-14] MEDS: Octreotide Acetate 500 MCG in 0.9 % Sodium Chloride 500 ML 50.1 MCG IVCONT (08:20)
--- NOTE | 2024-04-14 10:58 | HO.PM.IMPN ---
Subjective Subjective Date of Service: 04/14/24 Interval History: recovering fom klebisela line bacteremia, shock, gib, diarrha Overall doing better, diarrhea seems better today Physical Exam Vital Signs: Vital Signs: Last Vital Signs Temp 97.3 F 04/14/24 07:29 Pulse 60 04/14/24 07:29 Resp 16 04/14/24 07:29 BP 120/62 04/14/24 07:29 Pulse Ox 95 04/14/24 07:29 O2 Del Method Room Air 04/14/24 07:29 O2 Flow Rate 2 04/08/24 13:20 FiO2 35 04/08/24 13:20 BMI result Body Mass Index 25.1 Const: Other: General: AO X 3, no acute distress Resp: air entry is fair ,slightly diminshed at bases ,no rales or wheezing CVS: S1,S2,RRR GI: +BS, NT, no distention Skin: No rash Neuro: motor grossly intact Psych: appropriate affect Objective Data Active Medications Acetaminophen (Acetaminophen 325 Mg Tablet) 650 mg PO Q6H PRN PRN Reason: Pain, Mild 1-3,fever,headache Last Admin: 04/09/24 16:51 Dose: 650 mg Documented By: SHANNAN Amiodarone HCl (Amiodarone Hcl 200 Mg Tablet) 200 mg PO DAILY [facility] Last Admin: 04/14/24 08:19 Dose: 200 mg Documented By: YOU Ascorbic Acid (Ascorbic Acid 250 Mg Tablet) 250 mg PO BID [facility] Last Admin: 04/14/24 08:19 Dose: 250 mg Documented By: YOU Calcium Carbonate/Cholecalciferol (Calcium + Vitamin D 250 Mg Tablet) 250 mg PO DAILY [facility] Last Admin: 04/14/24 08:19 Dose: 250 mg Documented By: YOU Cholestyramine Resin (Cholestyramine (With Sugar) 4 Gm Powd.Pack) 2 gm PO BIDWM [facility] Last Admin: 04/14/24 08:19 Dose: 2 gm Documented By: YOU Diphenoxylate HCl/Atropine (Diphenoxylate/Atrop 2.5/0.025 Tablet) 1 tab PO QID PRN PRN Reason: Diarrhea Ferrous Sulfate (Ferrous Sulfate 324 Mg Tablet.) 324 mg PO BID [facility] Last Admin: 04/14/24 08:19 Dose: 324 mg Documented By: YOU Fidaxomicin (Fidaxomicin 200 Mg Tablet) 200 mg PO Q12H [facility] Last Admin: 04/13/24 23:28 Dose: 200 mg Documented By: AMBROSIO Octreotide Acetate 500 mcg/ (Sodium Chloride) 501 mls @ 50.1 mls/hr IVCONT .Q10H [facility] Last Admin: 04/14/24 08:20 Dose: 50 mcg/hr, 50.1 mls/hr Documented By: YOU Melatonin (Melatonin 3 Mg Tablet) 6 mg PO BEDTIME PRN PRN Reason: Insomnia Metoprolol Tartrate (Metoprolol Tartrate 25 Mg Tablet) 25 mg PO Q6H [facility]; Protocol Last Admin: 04/14/24 09:20 Dose: 25 mg Documented By: YOU Naloxone HCl (Naloxone Hcl 0.4 Mg/Ml Vial) 0.04 mg IVPUSH Q5M PRN PRN Reason: Excessive sedation or RR < 8 Ondansetron HCl (Ondansetron Hcl 4 Mg/2 Ml Vial) 4 mg IVPUSH Q8H PRN PRN Reason: Nausea and Vomiting Labs 04/09/24 06:44 04/09/24 06:44 Microbiology Microbiology Results: Microbiology 04/08/24 13:30 Urine Culture - Preliminary Urine Other - Nephrostomy Cristal albicans Gram positive cocci Assessment and Plan (1) Thrombocytopenia: Status: Acute (2) Acute blood loss anemia: Status: Acute Assessment and Plan: 78-year-old male with history of ESRD on HD MWF, colorectal cancer status post low anterior resection with diverting loop ileostomy and reversal at [facility], recurrent c diff, chronic R hydonephrosis, and atrial fibrillation on Eliquis who presents to the emergency department on 03/25/24 with persistent diarrhea 3-4x/day with associated weakness, was transfered to ICU on same day due to shock/hypotension, hospital course complicated by bacteremia and GIB with acute blood loss anemia Shock/hypotension, was on pressors in icu d/t sepsis from Klebsiela line infecton, shock resolved Has completed treatment with Meropenem CT abdomen finding looks unchanged right-sided hydro, MRCP Complex hemorrhagic exophytic lesion, left kidney.Blood products versus purulent material versus neoplasm resulting in dilatation of the right pelvicalyceal system.-S/PRight retrograde with right ureteroscopy diagnostic:Right obstructed distal ureter- -s/p right PCN on 04/08, . Per ID completed enough Abx and yeast likely colonization Gi issues: In addition initial CT scan shows question of CBD dilation, LFTs are normal-patient does not have abdominal pain. 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 Chronic Atrial fibrillation, hold eliquis d/t gib, anemia, and low plat continue amio and metoprolol. awaiting rehab bed Quality Stroke Does the patient have a stroke diagnosis?: No VTE Prior VTE?: No VTE Risk Level:: Medical - moderate - high VTE Device Contraindication: Treatment Not Indicated VTE Drug Contraindication: N/A - Med Ordered
[2024-04-14] MEDS: Fidaxomicin 200 MG TABLET PO (12:04)
[2024-04-14 12:58] LABS: Hematocrit 25.2 % (42.0-52.0); Hemoglobin 8.1 g/dl (14.0-18.0); Mean Corpuscular HGB Conc 32.1 g/dl (31.0-36.0); Mean Corpuscular Hemoglobin 32.1 pg (27.0-33.0); Mean Platelet Volume 11.4 fL (9.4-12.4); Red Blood Count 2.52 X10*6/uL (4.60-5.80)
[2024-04-14 12:59] LABS: Platelet Count 83 X10*3/uL (160-400); White Blood Count 7.5 X10*3/uL (4.8-10.8)
--- NOTE | 2024-04-14 14:06 | MHC.CLN ---
F/U PO INTAKE 25-100% DIET RX: 2 GRAM SODIUM STAGE II PRESSURE INJURY TO COCCYX CONTINUE RECEIVING ENSURE CLEAR TID TO PROMOTE WOUND HEALING SUPPLEMENT PROVIDES 720 KCALS, 24 G PROTEIN (AND RENAL FRIENDLY) MONITOR PO INTAKE AND ENCOURAGE SUPPLEMENTS
--- NOTE | 2024-04-14 15:16 | MHC.CM.PN ---
PT HAS BEEN RECOMMENDED FOR STR BUT NO BED OFFERS AT THIS TIME. BARRIERS: C DIFF, NEEDS ISO ROOM, HD. CM CONTINUES TO EXPAND BED SEARCH BUT PT REFUSES TO GO TO REHAB OUT OF AREA VIA [facility] HELPER. CM CONTINUES TO FOLLOW.
[2024-04-14] MEDS: vancomycin HCL 125 MG CAPSULE PO (22:06)
[2024-04-15] VITALS (7 sets, daily range): BP systolic 112–171; BP diastolic 54–78; PULSE 58–60; RESP 16–18; TEMP 36.1–37; O2SAT 93–97
[2024-04-15] MEDS: Metoprolol Tartrate 25 MG TABLET PO ×3 (03:31→21:16)
[2024-04-15] MEDS: vancomycin HCL 125 MG CAPSULE PO ×4 (03:31→21:16)
[2024-04-15] MEDS: Cholestyramine (With Sugar) 4 GM POWD.PACK 2 GM PO ×2 (08:25→17:09)
[2024-04-15] MEDS: Ascorbic Acid 250 MG TABLET PO ×2 (08:25→21:15)
[2024-04-15] MEDS: Amiodarone HCL 200 MG TABLET PO (08:25)
[2024-04-15] MEDS: Diphenoxylate/Atrop 2.5/0.025 TABLET 1 TAB PO ×2 (08:25→23:56)
[2024-04-15] MEDS: Ferrous Sulfate 324 MG TABLET.DR PO ×2 (08:25→21:15)
[2024-04-15] MEDS: Calcium + Vitamin D 250 MG TABLET PO (08:25)
--- NOTE | 2024-04-15 11:32 | P.PNNP_ITS ---
Subjective Subjective Date of Service: 04/15/24 Interval history: seen and examined sitting out of bed no complaints Physical Exam 2 Vital Signs: Vital Signs: Last Vital Signs Temp 98.2 F 04/15/24 08:00 Pulse 60 04/15/24 10:53 Resp 16 04/15/24 08:00 BP 171/78 H 04/15/24 10:53 Pulse Ox 96 04/15/24 10:53 O2 Del Method Room Air 04/15/24 08:00 O2 Flow Rate 2 04/08/24 13:20 FiO2 35 04/08/24 13:20 BMI result Body Mass Index 25.1 Const: General: alert and awake Neck: Neck: Yes supple Resp: Auscultation: clear to auscultation bilaterally Cardio: Heart sounds: S1 normal heart sound present and S2 normal heart sound present GI: Palpation (GI): Soft to palpation and nontender Extrem: General: Yes no pedal edema Objective Data Labs 04/14/24 12:43 04/09/24 06:44 Labs: Laboratory Results - last 24 hr 04/14/24 12:43 WBC 7.5 RBC 2.52 L Hgb 8.1 L Hct 25.2 L MCV 100.0 H MCH 32.1 MCHC 32.1 RDW 19.0 H Plt Count 83 L D MPV 11.4 Absolute Nucleated RBC 0.000 Nucleated RBC % (auto) 0.0 Blood Type A Positive Antibody Screen NEGATIVE Microbiology Microbiology Results: Microbiology 04/08/24 13:30 Urine Other - Nephrostomy Urine Culture - Preliminary Cristal albicans Enterococcus/Streptococcus sp 04/02/24 14:08 Blood - Venous Blood Culture - Final No growth after 5 days. 04/02/24 14:08 Blood - Venous Blood Culture - Final No growth after 5 days. 04/02/24 12:25 Catheter Tip - Other Catheter Tip Culture - Final No growth after 3 days. 04/02/24 17:16 Urine clean catch - Clean Catch Midstream Urine Culture - Final Cristal albicans 03/28/24 10:07 Blood - Central Line Blood Culture - Final No growth after 5 days. 03/28/24 10:07 Blood - Central Line Blood Culture - Final Klebsiella oxytoca 03/26/24 11:10 Blood - Central Line Blood Culture - Final Klebsiella oxytoca 03/26/24 11:30 Blood - Central Line Blood Culture - Final Klebsiella oxytoca 03/25/24 03:02 Blood - Venous Blood Culture - Final Klebsiella oxytoca 03/25/24 03:16 Blood - Venous Blood Culture - Final Klebsiella oxytoca Procedures Date of Service Date of Service: 04/15/24 Assessment & Plan Assessment and plan (1) End stage renal disease: Status: Acute (2) Anemia: Status: Inactive Plan known ESRD on HD -- at [facility] via PC admitted with septic shock Klebsiella bacteremia s/p new dialysis tunnelled catheter CT abdomen unchanged c/w right-sided hydronephrosis, complex hemorrhagic exophytic lesion nephrogenic anemia REC HD per schedule renal diet P binder PATTI Abx per primary team Time Spent With Patient Time: Total time managing care of this patient today ____ minutes. Progress Note: Quality Stroke Does the patient have a stroke diagnosis?: No
--- NOTE | 2024-04-15 14:44 | MHC.CM.PN ---
Addendum entered by Angle Madrigal 04/15/24 15:52: CM SPOKE WITH BREANNA,[facility]. PER BREANNA, PT IS ELIGIBLE FOR TRANSPORTATION FOR HD [facility]. ALSO, REFERRALS EXPANDED OUT OF THE DEMOGRAPHIC TO [facility] CONTRACT[facility] C[facility] WITH THE KNOWLEDGE THAT TRANSPORT WILL BE COVERED. AWAITING RESPONSES /BED OFFERS.CM WILL CONTINUE TO FOLLOW. Original Note: CM SPOKE WITH [facility] LIAISON WHO IS WILLING TO ACCEPT PT FOR STR WITH THE UNDERSTANDING THAT [facility] WILL TRANSPORT TO AND FROM HD. CM CONFIRMED THIS WITH BRAD. [facility] CANNOT OFFER IS PT IS STILL ON DIFICID IT IS EXTREMELY COSTLY. MD AWARE. CM WILL CONTINUE TO FOLLOW FOR PLAN.
[2024-04-16] VITALS (10 sets, daily range): BP systolic 107–162; BP diastolic 48–79; PULSE 60–62; RESP 14–18; TEMP 36.3–37; O2SAT 95–97
[2024-04-16] MEDS: vancomycin HCL 125 MG CAPSULE PO ×4 (03:39→21:00)
[2024-04-16] MEDS: Metoprolol Tartrate 25 MG TABLET PO ×4 (03:39→21:00)
[2024-04-16] MEDS: Ferrous Sulfate 324 MG TABLET.DR PO ×2 (07:44→20:59)
[2024-04-16] MEDS: Ascorbic Acid 250 MG TABLET PO ×2 (07:44→20:59)
[2024-04-16] MEDS: Calcium + Vitamin D 250 MG TABLET PO (07:44)
[2024-04-16] MEDS: Amiodarone HCL 200 MG TABLET PO (07:44)
[2024-04-16] MEDS: Cholestyramine (With Sugar) 4 GM POWD.PACK 2 GM PO ×2 (07:45→15:58)
[2024-04-16] MEDS: Diphenoxylate/Atrop 2.5/0.025 TABLET 1 TAB PO ×2 (07:50→20:59)
--- NOTE | 2024-04-16 11:37 | HO.WOUND ---
Wound Consult: Initial 78yr old?male admitted to [facility] on 03/25/24 06:42 - See progress notes and H&P for detailed history.? Wound consult placed for Sacrum.? Patient agreeable to assessment and photo documentation.? Sacrum - resurfaced PI 04/16/24 - Pressure injury has since healed and resurfaced - barrier cream in use in addition to BALBIR mattress. the foam is not in current use due to patient frequent loose stools. Will reconsider foam use after loose stools resolve. Right Heel Bilateral heels were assessed for intact dry blanchable redness no Pressure injury noted at this time. Preventative foams applied and pillows used to float heels. Recommendations: 1. Turn and Reposition every 2 hours and as needed for patient comfort.? Use pillows or wedges to support off loading positions. 2. Off Load all bony prominences with use of pillows and heel boots if needed.? Apply Preventative foams where needed. ? 3. Monitor for incontinence and moisture control, use barrier creams when needed for prevention and treatment. 4. Provide adequate and supplemental nutrition.? 5. Continue ICU Speciality low air loss mattress. 6. When applicable maintain blood glucose levels per Providers order. 7. Sacrum - Off Load Pressure with Q2 hr turns and use of pillows - Cleanse with PH balance spray or wipes, pat dry. ?Apply thin layer of Triad to wound bed. Do not remove all of paste between applications as this may cause further skin damage.? Cover with foam dressing to aid in off loading and protection from friction. Change every 5 days and PRN. 8. Bilateral Heels - Off load heels from surface of bed with pillows. Apply skin prep to heels apply foam dressing for prevention, peel back and assess Q shift and Change every 5 days. Details from previous assessment: Sacrum 03/26/24 Etiology: ?Deep Tissue Injury in Evolution ?Present on Admission Measurements: 8cm x 8cm x 0.2cm Wound Bed: central open area with red clean wound bed - surrounding tissue dark pigmentation nonblanchable Drainage / Odor: None noted Edges: ? irregular and defined Elizabeth wound:[place] intact tissue - MASD noted ? No Induration, Fluctuance or Warmth noted Pain: none reported at this time Goals of Treatment: ? Off load pressure and triad to protect from friction and moisture and allow for moist wound healing Heels off loaded - recommend useing heel protector boots. Isotour bed in use, recommend using wedges for turn and repositions Q2 hr. Recommendations: 1. Turn and Reposition every 2 hours and as needed for patient comfort.? Use pillows or wedges to support off loading positions. 2. Off Load all bony prominences with use of pillows and heel boots if needed.? Apply Preventative foams where needed. ? 3. Monitor for incontinence and moisture control, use barrier creams when needed for prevention and treatment. 4. Provide adequate and supplemental nutrition.? 5. Continue ICU Speciality low air loss mattress. 6. When applicable maintain blood glucose levels per Providers order. 7. Sacrum - Off Load Pressure with Q2 hr turns and use of pillows - Cleanse with PH balance spray or wipes, pat dry. ?Apply thin layer of Triad to wound bed. Do not remove all of paste between applications as this may cause further skin damage.? Cover with foam dressing to aid in off loading and protection from friction. Change every 5 days and PRN. Re-consult wound care Nurse for wound deterioration or wound changes.
--- NOTE | 2024-04-16 14:35 | P.PNIM_ITS ---
Subjective Subjective Date of Service: 04/21/24 Interval History: Being followed for Klebsiella line bacteremia, shock, GI bleed and diarrhea Diarrhea is resolving, tolerating diet no nausea, no vomiting, no abdominal pain. Review of Systems All other ros reviewed and are negative Physical Exam 2 Vital Signs: Vital Signs: Last Vital Signs Temp 97.8 F 04/16/24 11:48 Pulse 60 04/16/24 13:17 Resp 14 04/16/24 11:48 BP 128/62 04/16/24 13:17 Pulse Ox 96 04/16/24 11:48 O2 Del Method Room Air 04/16/24 11:48 O2 Flow Rate 2 04/08/24 13:20 FiO2 35 04/08/24 13:20 BMI result Body Mass Index 25.1 Const: Other: Gen: Awake alert, in no acute distress Neck: supple Lungs: No respiratory distress, diminished at bases Heart: regular rate and rhythm, no murmurs Abd: soft, non-tender, non-distended, bowel sounds audible. Ext: no edema Skin: warm/well-perfused Neuro: alert and oriented x3, no focal findings Psych: appropriate affect Objective Data Active Medications Acetaminophen (Acetaminophen 325 Mg Tablet) 650 mg PO Q6H PRN PRN Reason: Pain, Mild 1-3,fever,headache Last Admin: 04/09/24 16:51 Dose: 650 mg Documented By: SHANNAN Amiodarone HCl (Amiodarone Hcl 200 Mg Tablet) 200 mg PO DAILY [facility] Last Admin: 04/16/24 07:44 Dose: 200 mg Documented By: FATEMEH Ascorbic Acid (Ascorbic Acid 250 Mg Tablet) 250 mg PO BID [facility] Last Admin: 04/16/24 07:44 Dose: 250 mg Documented By: FATEMEH Calcium Carbonate/Cholecalciferol (Calcium + Vitamin D 250 Mg Tablet) 250 mg PO DAILY [facility] Last Admin: 04/16/24 07:44 Dose: 250 mg Documented By: FATEMEH Cholestyramine Resin (Cholestyramine (With Sugar) 4 Gm Powd.Pack) 2 gm PO BIDWM [facility] Last Admin: 04/16/24 07:45 Dose: 2 gm Documented By: FATEMEH Diphenoxylate HCl/Atropine (Diphenoxylate/Atrop 2.5/0.025 Tablet) 1 tab PO QID PRN PRN Reason: Diarrhea Last Admin: 04/16/24 07:50 Dose: 1 tab Documented By: FATEMEH Ferrous Sulfate (Ferrous Sulfate 324 Mg Tablet.) 324 mg PO BID [facility] Last Admin: 04/16/24 07:44 Dose: 324 mg Documented By: FATEMEH Melatonin (Melatonin 3 Mg Tablet) 6 mg PO BEDTIME PRN PRN Reason: Insomnia Metoprolol Tartrate (Metoprolol Tartrate 25 Mg Tablet) 25 mg PO Q6H [facility]; Protocol Last Admin: 04/16/24 12:07 Dose: 25 mg Documented By: FATEMEH Naloxone HCl (Naloxone Hcl 0.4 Mg/Ml Vial) 0.04 mg IVPUSH Q5M PRN PRN Reason: Excessive sedation or RR < 8 Ondansetron HCl (Ondansetron Hcl 4 Mg/2 Ml Vial) 4 mg IVPUSH Q8H PRN PRN Reason: Nausea and Vomiting Vancomycin HCl (Vancomycin Hcl 125 Mg Capsule) 125 mg PO Q6H [facility] Last Admin: 04/16/24 12:04 Dose: 125 mg Documented By: FATEMEH Labs 04/18/24 15:12 04/18/24 15:12 Labs: Laboratory Results - last 24 hr 04/15/24 17:28 Hold Green Top Cancelled Pleural LDH Cancelled Microbiology Microbiology Results: Microbiology 04/08/24 13:30 Urine Culture - Final Urine Other - Nephrostomy Cristal albicans Enterococcus durans Assessment and Plan (1) Acquired stricture of ureter: Status: Acute (2) Thrombocytopenia: Status: Acute (3) Acute blood loss anemia: Status: Acute Plan 78-year-old male with history of ESRD on HD MWF, colorectal cancer status post low anterior resection with diverting loop ileostomy and reversal at [facility], recurrent c diff, chronic R hydonephrosis, and atrial fibrillation on Eliquis who presents to the emergency department on 03/25/24 with persistent diarrhea 3-4x/day with associated weakness, was transfered to ICU on same day due to shock/hypotension, hospital course complicated by bacteremia and GIB with acute blood loss anemia Hypotensive shock due to Klebsiella line infection treated in ICU with pressors Has completed treatment with Meropenem CT abdomen finding looks unchanged right-sided hydro, MRCP Complex hemorrhagic exophytic lesion, left kidney. Blood products versus purulent material versus neoplasm resulting in dilatation of the right pelvicalyceal system.-S/PRight retrograde with right ureteroscopy diagnostic:Right obstructed distal ureter- - s/p right PCN on 04/08, . Per ID completed enough Abx and yeast likely colonization. Recommend outpatient follow-up with Urology for continued monitoring of left kidney exophytic lesion /follow-up on right PCN Gi issues: In addition initial CT scan shows question of CBD dilation, LFTs are normal-patient does not have abdominal pain. 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 Diarrhea, h/o Cdif, positive toxin A, likely colonization, in light of diarrhea however , treat with dificid since persistent diarrhea on vanco Spoke with ID she recommend tapering dose of vanco 3 x 1 day for 1 week, followed by twice daily for 1 week, then 1 tablet daily for 1 week, followed by 1 tablet Wednesdays and Fridays. 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 Chronic Atrial fibrillation, hold eliquis d/t gib, anemia, and low platelets continue amio and metoprolol. awaiting rehab bed Quality Stroke Does the patient have a stroke diagnosis?: No VTE Prior VTE?: No VTE Risk Level:: Medical - moderate - high VTE Device Contraindication: Treatment Not Indicated VTE Drug Contraindication: N/A - Med Ordered
--- NOTE | 2024-04-16 14:44 | MHC.CM.PN ---
PT HAS BEEN ACCEPTED AT A [place] CONTRACTED [facility] ([facility]). PT ACCEPTS BED OFFER. BREANNA, [place] LIAISON, IS AWARE AND SETTING UP TRANSPORTATION TO HD AT HOME CLINIC IN [place] FOR FRIDAY 04/21 START. ELMER, CHARGE NURSE AT [facility], WAS UPDATED ON PROJECTED RETURN. CM FAXED CLINICALS TO HD CLINIC PER REQUEST OF ELMER ([phone]) MD MADE AWARE AND CENTER UPDATED ON PLAN. CM WILL CONTINUE TO FOLLOW FOR ANY CHANGE TO PLAN
--- NOTE | 2024-04-16 15:48 | MHC.CLN ---
F/U PO INTAKE 50-100% DIET RX: 2 GRAM SODIUM STAGE II PRESSURE INJURY TO COCCYX-HEALED PER WOUND NURSE CONTINUE RECEIVING ENSURE CLEAR TID TO PROMOTE WOUND HEALING SUPPLEMENT PROVIDES 720 KCALS, 24 G PROTEIN (AND RENAL FRIENDLY) MONITOR PO INTAKE AND ENCOURAGE SUPPLEMENTS RD TO FOLLOW WEEKLY
[2024-04-17 03:40] VITALS: BP 142/68; PULSE 58; RESP 18; TEMP 36.6; O2SAT 95
[2024-04-17] MEDS: vancomycin HCL 125 MG CAPSULE PO ×4 (04:27→21:01)
[2024-04-17] MEDS: Metoprolol Tartrate 25 MG TABLET PO ×3 (04:27→21:01)
[2024-04-17] MEDS: Diphenoxylate/Atrop 2.5/0.025 TABLET 1 TAB PO ×3 (05:06→21:01)
[2024-04-17 07:01] VITALS: BP 150/67; PULSE 60; RESP 18; TEMP 36.6; O2SAT 96
[2024-04-17] MEDS: Ferrous Sulfate 324 MG TABLET.DR PO ×2 (07:58→21:01)
[2024-04-17] MEDS: Ascorbic Acid 250 MG TABLET PO ×2 (07:58→21:01)
[2024-04-17] MEDS: Amiodarone HCL 200 MG TABLET PO (07:58)
[2024-04-17] MEDS: Calcium + Vitamin D 250 MG TABLET PO (07:58)
[2024-04-17] MEDS: Cholestyramine (With Sugar) 4 GM POWD.PACK 2 GM PO ×2 (07:59→16:16)
--- NOTE | 2024-04-17 10:44 | P.PNNP_ITS ---
Subjective Subjective Date of Service: 04/17/24 Interval history: seen and examined on HD c/o diarrhea d/w medical attending Physical Exam 2 Vital Signs: Vital Signs: Last Vital Signs Temp 98 F 04/17/24 07:01 Pulse 60 04/17/24 07:01 Resp 18 04/17/24 07:01 BP 150/67 H 04/17/24 07:01 Pulse Ox 96 04/17/24 07:01 O2 Del Method Room Air 04/17/24 07:01 O2 Flow Rate 2 04/08/24 13:20 FiO2 35 04/08/24 13:20 BMI result Body Mass Index 25.1 Const: General: alert and awake Neck: Neck: Yes supple Resp: Auscultation: clear to auscultation bilaterally Cardio: Heart sounds: S1 normal heart sound present and S2 normal heart sound present GI: Palpation (GI): Soft to palpation and nontender Extrem: General: Yes no pedal edema Objective Data Labs 04/14/24 12:43 04/09/24 06:44 Labs: Laboratory Results - last 24 hr 04/15/24 17:28 Pleural LDH Cancelled Microbiology Microbiology Results: Microbiology 04/08/24 13:30 Urine Other - Nephrostomy Urine Culture - Final Cristal albicans Enterococcus durans 04/02/24 14:08 Blood - Venous Blood Culture - Final No growth after 5 days. 04/02/24 14:08 Blood - Venous Blood Culture - Final No growth after 5 days. 04/02/24 12:25 Catheter Tip - Other Catheter Tip Culture - Final No growth after 3 days. 04/02/24 17:16 Urine clean catch - Clean Catch Midstream Urine Culture - Final Cristal albicans 03/28/24 10:07 Blood - Central Line Blood Culture - Final No growth after 5 days. 03/28/24 10:07 Blood - Central Line Blood Culture - Final Klebsiella oxytoca 03/26/24 11:10 Blood - Central Line Blood Culture - Final Klebsiella oxytoca 03/26/24 11:30 Blood - Central Line Blood Culture - Final Klebsiella oxytoca 03/25/24 03:02 Blood - Venous Blood Culture - Final Klebsiella oxytoca 03/25/24 03:16 Blood - Venous Blood Culture - Final Klebsiella oxytoca Procedures Date of Service Date of Service: 04/17/24 Assessment & Plan Assessment and plan (1) End stage renal disease: Status: Acute (2) Anemia: Status: Inactive Plan known ESRD on HD - at [facility] via PC admitted with septic shock Klebsiella bacteremia s/p new dialysis tunnelled catheter CT abdomen unchanged c/w right-sided hydronephrosis, complex hemorrhagic exophytic lesion nephrogenic anemia REC HD today for 3 hours HD in am for 2 hours (back on schedule in anticipation of DC) renal diet P binder retacrit 29273 units sc x 1 Time Spent With Patient Time: Total time managing care of this patient today ____ minutes. Progress Note: Quality Stroke Does the patient have a stroke diagnosis?: No
--- NOTE | 2024-04-17 10:53 | MHC.CM.PN ---
Addendum entered by Saadia Tomlin RN 04/17/24 15:25: Per [facility], [place] unable to provide transport to [place], as [facility] not [facility]. Spoke w/ daughter, [facility], who was previously providing transport to HD. She is unable to continue, as the car is not usable at this time. CM sent updates to all contracted facilities. No bed offers from any [place] contracted facility. Expanded referral to SNF's w/ HD on site in [place] - would go under [facility]. CM will continue to follow. Addendum entered by Saadia Tomlin RN 04/17/24 12:22: [facility] has rescinded bed offer d/t bed availability. [facility] is still able to accept patient. LM for Celestina @ [place] to update HD transport. Original Note: DP: STR @ [facility] 04/18 after HD, continue outpatient HD @ [facility] M[facility]F - Celest[facility] @ [place] aprroved and setting up transport to start 04/21.
--- NOTE | 2024-04-17 11:19 | HO.PM.IMPN ---
Subjective Subjective Date of Service: 04/17/24 Interval History: No new issues peristent diarrhea Physical Exam Vital Signs: Vital Signs: Last Vital Signs Temp 98 F 04/17/24 07:01 Pulse 60 04/17/24 07:01 Resp 18 04/17/24 07:01 BP 150/67 H 04/17/24 07:01 Pulse Ox 96 04/17/24 07:01 O2 Del Method Room Air 04/17/24 07:01 O2 Flow Rate 2 04/08/24 13:20 FiO2 35 04/08/24 13:20 BMI result Body Mass Index 25.1 Const: Other: Gen: Awake alert, in no acute distress Neck: supple Lungs: No respiratory distress, diminished at bases Heart: regular rate and rhythm, no murmurs Abd: soft, non-tender, non-distended, bowel sounds audible. Ext: no edema Skin: warm/well-perfused Neuro: alert and oriented x3, no focal findings Psych: appropriate affect Objective Data Active Medications Acetaminophen (Acetaminophen 325 Mg Tablet) 650 mg PO Q6H PRN PRN Reason: Pain, Mild 1-3,fever,headache Last Admin: 04/09/24 16:51 Dose: 650 mg Documented By: SHANNAN Amiodarone HCl (Amiodarone Hcl 200 Mg Tablet) 200 mg PO DAILY [facility] Last Admin: 04/17/24 07:58 Dose: 200 mg Documented By: MARTINA Ascorbic Acid (Ascorbic Acid 250 Mg Tablet) 250 mg PO BID [facility] Last Admin: 04/17/24 07:58 Dose: 250 mg Documented By: MARTINA Calcium Carbonate/Cholecalciferol (Calcium + Vitamin D 250 Mg Tablet) 250 mg PO DAILY [facility] Last Admin: 04/17/24 07:58 Dose: 250 mg Documented By: MARTINA Cholestyramine Resin (Cholestyramine (With Sugar) 4 Gm Powd.Pack) 2 gm PO BIDWM [facility] Last Admin: 04/17/24 07:59 Dose: 2 gm Documented By: MARTINA Diphenoxylate HCl/Atropine (Diphenoxylate/Atrop 2.5/0.025 Tablet) 1 tab PO QID PRN PRN Reason: Diarrhea Last Admin: 04/17/24 05:06 Dose: 1 tab Documented By: BRENDA Ferrous Sulfate (Ferrous Sulfate 324 Mg Tablet.) 324 mg PO BID [facility] Last Admin: 04/17/24 07:58 Dose: 324 mg Documented By: MARTINA Melatonin (Melatonin 3 Mg Tablet) 6 mg PO BEDTIME PRN PRN Reason: Insomnia Metoprolol Tartrate (Metoprolol Tartrate 25 Mg Tablet) 25 mg PO Q6H [facility]; Protocol Last Admin: 04/17/24 09:31 Dose: Not Given Documented By: MARTINA Non-Admin Reason: Med held for dialysis Naloxone HCl (Naloxone Hcl 0.4 Mg/Ml Vial) 0.04 mg IVPUSH Q5M PRN PRN Reason: Excessive sedation or RR < 8 Ondansetron HCl (Ondansetron Hcl 4 Mg/2 Ml Vial) 4 mg IVPUSH Q8H PRN PRN Reason: Nausea and Vomiting Vancomycin HCl (Vancomycin Hcl 125 Mg Capsule) 125 mg PO Q6H [facility] Last Admin: 04/17/24 09:28 Dose: 125 mg Documented By: MARTINA Labs 04/14/24 12:43 04/09/24 06:44 Labs: Laboratory Results - last 24 hr 04/15/24 17:28 Pleural LDH Cancelled Microbiology Microbiology Results: Microbiology 04/08/24 13:30 Urine Culture - Final Urine Other - Nephrostomy Cristal albicans Enterococcus durans Assessment and Plan (1) Recurrent Clostridioides difficile diarrhea: Status: Acute (2) Septic shock: Status: Acute Plan 78-year-old male with ESRD on HD (MWF), colorectal cancer (s/p low anterior resection with ileostomy reversal at [facility]), recurrent C. diff, chronic right hydronephrosis, and atrial fibrillation on Eliquis presented with persistent diarrhea (3-4x/day) and associated weakness. He was recently hospitalized (03/08/24 - 03/12/24) for recurrent C. diff. Denied blood in stool, abdominal pain, nausea, vomiting, fever, respiratory, or urinary symptoms, shortly after admission he became hypotensive and was transfered to the ICU where he was treated with vasopressors for septic shock due to Klebisiela bacteremia related dialysis cather. His hospital course has been further complicated by diarrhea, anemia/thrombocytopenia Hypotensive due to septic shock (Klebsiella line infection), he had multiple positive cultures, last culture from 03/28/24 has been negative beyond 5 days. He has complated treatment with Meropenem under the direction of infectious disease. S/p right PCN placement (04/08) for obstructed right distal ureter, Uro recommend follow up with original surgery in [place] GI Issues: Initial CT: Questionable CBD dilation; LFTs normal, no abdominal pain. 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 GI Bleeding (acute blood loss anemia): S/p 3 units RBC transfusion. EGD (03/29): Gastritis, duodenitis Candidal esophagitis -Treated with Diflucan Dieulafoy lesion (visible vessel) ? S/p clipping + Hemospray Diarrhea (h/o recurrent C. diff): Positive toxin A (likely colonization, completing vancomycin ramesh as follow TID x1 week ? BID x1 week ? QD x1 week ? MWF x1 week. 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 Thrombocytopenia (acute on chronic): Iron & TIBC low, LDH mildly elevated. Platelets stable, periodic monitoring. End-stage renal disease (HD MWF): Temporary dialysis catheter placed (04/07). Acute lactic acidosis: Likely due to dehydration + ESRD. Chronic atrial fibrillation: Eliquis held due to GI bleed, anemia, and thrombocytopenia. Continue Amiodarone & Metoprolol. Discharge tomorrow after dialysis Quality Stroke Does the patient have a stroke diagnosis?: No VTE Prior VTE?: No VTE Risk Level:: Medical - moderate - high VTE Device Contraindication: Treatment Not Indicated VTE Drug Contraindication: N/A - Med Ordered
[2024-04-17 15:02] VITALS: BP 113/53; PULSE 60; RESP 18; TEMP 36.1; O2SAT 96
[2024-04-17 19:32] VITALS: BP 113/55; PULSE 60; RESP 18; TEMP 36.1; O2SAT 97
[2024-04-17 23:50] VITALS: BP 148/68; PULSE 59; RESP 18; TEMP 37; O2SAT 94
[2024-04-18 03:28] VITALS: BP 146/73; PULSE 56; RESP 18; TEMP 36.4; O2SAT 94
[2024-04-18] MEDS: Metoprolol Tartrate 25 MG TABLET PO ×3 (03:36→15:34)
[2024-04-18] MEDS: vancomycin HCL 125 MG CAPSULE PO ×3 (03:36→15:34)
[2024-04-18 07:30] VITALS: BP 140/61; PULSE 60; RESP 18; TEMP 36.2; O2SAT 91
[2024-04-18] MEDS: Cholestyramine (With Sugar) 4 GM POWD.PACK 2 GM PO ×2 (08:56→16:45)
[2024-04-18] MEDS: Ascorbic Acid 250 MG TABLET PO (08:58)
[2024-04-18] MEDS: Calcium + Vitamin D 250 MG TABLET PO (08:58)
[2024-04-18] MEDS: Ferrous Sulfate 324 MG TABLET.DR PO (08:58)
[2024-04-18] MEDS: Amiodarone HCL 200 MG TABLET PO (08:58)
--- NOTE | 2024-04-18 09:56 | HO.PM.IMPN ---
Subjective Subjective Date of Service: 04/18/24 Physical Exam Vital Signs: Vital Signs: Last Vital Signs Temp 97.2 F 04/18/24 07:30 Pulse 60 04/18/24 07:30 Resp 18 04/18/24 07:30 BP 140/61 H 04/18/24 07:30 Pulse Ox 91 L 04/18/24 07:30 O2 Del Method Room Air 04/18/24 07:30 O2 Flow Rate 2 04/08/24 13:20 FiO2 35 04/08/24 13:20 BMI result Body Mass Index 25.1 Objective Data Active Medications Acetaminophen (Acetaminophen 325 Mg Tablet) 650 mg PO Q6H PRN PRN Reason: Pain, Mild 1-3,fever,headache Last Admin: 04/09/24 16:51 Dose: 650 mg Documented By: SHANNAN Amiodarone HCl (Amiodarone Hcl 200 Mg Tablet) 200 mg PO DAILY [facility] Last Admin: 04/18/24 08:58 Dose: 200 mg Documented By: SUZETTE Ascorbic Acid (Ascorbic Acid 250 Mg Tablet) 250 mg PO BID [facility] Last Admin: 04/18/24 08:58 Dose: 250 mg Documented By: SUZETTE Calcium Carbonate/Cholecalciferol (Calcium + Vitamin D 250 Mg Tablet) 250 mg PO DAILY [facility] Last Admin: 04/18/24 08:58 Dose: 250 mg Documented By: SUZETTE Cholestyramine Resin (Cholestyramine (With Sugar) 4 Gm Powd.Pack) 2 gm PO BIDWM [facility] Last Admin: 04/18/24 08:56 Dose: 2 gm Documented By: SUZETTE Diphenoxylate HCl/Atropine (Diphenoxylate/Atrop 2.5/0.025 Tablet) 1 tab PO QID PRN PRN Reason: Diarrhea Last Admin: 04/17/24 21:01 Dose: 1 tab Documented By: BRENDA Ferrous Sulfate (Ferrous Sulfate 324 Mg Tablet.Dr) 324 mg PO BID [facility] Last Admin: 04/18/24 08:58 Dose: 324 mg Documented By: SUZETTE Melatonin (Melatonin 3 Mg Tablet) 6 mg PO BEDTIME PRN PRN Reason: Insomnia Metoprolol Tartrate (Metoprolol Tartrate 25 Mg Tablet) 25 mg PO Q6H [facility]; Protocol Last Admin: 04/18/24 09:15 Dose: 25 mg Documented By: SUZETTE Comments: okay to give before HD per Naloxone HCl (Naloxone Hcl 0.4 Mg/Ml Vial) 0.04 mg IVPUSH Q5M PRN PRN Reason: Excessive sedation or RR < 8 Ondansetron HCl (Ondansetron Hcl 4 Mg/2 Ml Vial) 4 mg IVPUSH Q8H PRN PRN Reason: Nausea and Vomiting Vancomycin HCl (Vancomycin Hcl 125 Mg Capsule) 125 mg PO Q6H [facility] Last Admin: 04/18/24 08:58 Dose: 125 mg Documented By: SUZETTE Labs 04/14/24 12:43 04/09/24 06:44 Assessment and Plan (1) Recurrent Clostridioides difficile diarrhea: Status: Acute (2) Septic shock: Status: Acute Plan 78-year-old male with ESRD on HD (MW), colorectal cancer (s/p low anterior resection with ileostomy reversal at [facility]), recurrent C. diff, chronic right hydronephrosis, and atrial fibrillation on Eliquis presented with persistent diarrhea (3-4x/day) and associated weakness. He was recently hospitalized (03/08/24 - 03/12/24) for recurrent C. diff. Denied blood in stool, abdominal pain, nausea, vomiting, fever, respiratory, or urinary symptoms, shortly after admission he became hypotensive and was transfered to the ICU where he was treated with vasopressors for septic shock due to Klebisiela bacteremia related dialysis cather. His hospital course has been further complicated by diarrhea, anemia/thrombocytopenia Hypotensive due to septic shock (Klebsiella line infection), he had multiple positive cultures, last culture from 03/28/24 has been negative beyond 5 days. He has complated treatment with Meropenem under the direction of infectious disease. S/p right PCN placement (04/08) for obstructed right distal ureter, Uro recommend follow up with original surgery in [place] culture michael and enteroccous--no indication for abx per id GI Issues: Initial CT: Questionable CBD dilation; LFTs normal, no abdominal pain. 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 GI Bleeding (acute blood loss anemia): S/p 3 units RBC transfusion. EGD (03/29): Gastritis, duodenitis Candidal esophagitis -Treated with Diflucan Dieulafoy lesion (visible vessel) ? S/p clipping + Hemospray Diarrhea (h/o recurrent C. diff): Positive toxin A (likely colonization, completing vancomycin ramesh as follow TID x1 week ? BID x1 week ? QD x1 week ? MWF x1 week. 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 Thrombocytopenia (acute on chronic): Iron & TIBC low, LDH mildly elevated. Platelets stable, periodic monitoring. End-stage renal disease (HD MWF): Temporary dialysis catheter placed (04/07). Acute lactic acidosis: Likely due to dehydration + ESRD. Chronic atrial fibrillation: Eliquis held due to GI bleed, anemia, and thrombocytopenia. Continue Amiodarone & Metoprolol. Quality Stroke Does the patient have a stroke diagnosis?: No VTE Prior VTE?: No VTE Risk Level:: Medical - moderate - high VTE Device Contraindication: Treatment Not Indicated VTE Drug Contraindication: N/A - Med Ordered
--- NOTE | 2024-04-18 11:23 | MHC.CM.PN ---
Addendum entered by Angle Madrigal 04/18/24 13:45: PT WILL BE P/U BY [facility] AT 5 PM. PT IS AGREEABLE TO THE PLAN. [facility] AWARE OF TODAY'S DC AND RESUMPTION OF CARE ON FRIDAY 04/21 Original Note: DP: PT HAS BEEN ACCEPTED AT [facility] FOR STR. [place] HAS GIVEN AUTH AND HAS ARRANGED TRANSPORT FOR BOTH DC FROM HOSPITAL/TRANSPORT TO AND FROM . BLS TRANSPORT AR[facility]ANGED [facility] (SIVAKUMAR [phone]) [facility]IA [facility]. CENTER MADE AWARE. RN/MD AWARE.
[2024-04-18 13:33] VITALS: BP 129/63; PULSE 60; RESP 18; TEMP 36.8; O2SAT 95
--- NOTE | 2024-04-18 14:35 | P.DS_ITS ---
DS: Providers Provider Date of Service: 04/18/24 Date of admission: 03/25/24 06:42 Date of discharge: 04/18/24 Primary care physician: Anabelle Duncan Consults: 03/25/24 06:42 Consult to General Surgery Routine Consulting Provider: [facility] Reason for consultation: sbo vs ileus Consult to Infectious Diseases Routine Consulting Provider: [facility] Reason for consultation: recurrent cdiff Consult to Nephrology Routine Consulting Provider: [facility] 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 04/01/24 07:13 Consult to Infectious Diseases Routine Consulting Provider: [facility] Reason for consultation: persistent gram negative bactermia Has provider been notified: No 04/01/24 07:15 Consult to Cardiology Routine Consulting Provider: [facility] Reason for consultation: afib with rvr Has provider been notified: No 04/01/24 17:01 Consult to Hematology / Oncology Routine Consulting Provider: [facility] Oncology/Hematology Reason for consultation: Thrombocytopenia acute on chronic. Has provider been notified: No 04/02/24 07:30 Consult to General Surgery Routine Consulting Provider: [facility] Sur[facility] Reason for consultation: ?sbo per ID Has provider been notified: No 04/02/24 08:50 Consult to Urology Routine Consulting Provider: [facility] Reason for consultation: gram negative bacteremia- occult prostate source/?rt hydronephrosis Has provider been notified: No DS: Diagnosis Discharge Diagnosis (1) End stage renal disease: Status: Acute DS: Summary Hospital Course Hospital Course: Presented on 03/25/24 Chief Complaint: Diarrhea, weakness History: 78-year-old male with ESRD on HD (MWF), colorectal cancer (s/p low anterior resection with ileostomy reversal at [facility]), recurrent C. diff, chronic right hydronephrosis, and atrial fibrillation on Eliquis presented with persistent diarrhea (3-4x/day) and associated weakness. He had been hospitalized (03/08/24 - 03/12/24) for recurrent C. diff. Denied blood in stool, abdominal pain, nausea, vomiting, fever, respiratory, or urinary symptoms, shortly after admission he became hypotensive and was transfered to the ICU where he was treated with vasopressors for septic shock due to Klebisiela bacteremia related dialysis kelly which was eventually removedr. His hospital course has been further complicated by diarrhea, anemia/thrombocytopenia Hypotensive due to septic shock (Klebsiella line infection), he had multiple positive cultures, last culture from 03/28/24 has been negative beyond 5 days.Source of infection the dialysis catheter was removed and repeat cultures have been negative. He has complated treatment with Meropenem under the direction of infectious disease. He is afebrile and WBC have been normal. Obstructed right, S/p right PCN placement (04/08) for obstructed right distal ureter, Urostomy urine grew candidida and Enterococcus and per ID doesn't warant treatment Uro recommend follow up with original surgery at [facility] General GI Issues: Initial CT: Questionable CBD dilation; LFTs normal, no abdominal pain. 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 GI Bleeding (acute blood loss anemia): S/p 3 units RBC transfusion. H/H has been stable presently 8.8/26.8 which stable. EGD (03/29): * Gastritis, duodenitis * Candidal esophagitis -Treated with Diflucan * Dieulafoy lesion (visible vessel) ? S/p clipping + Hemospray Diarrhea (h/o recurrent C. diff): Positive toxin A (likely colonization, completing vancomycin ramesh as follow TID x1 week, BID x1 week , QD x1 week, then MWF x1 week. 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 Thrombocytopenia (acute on chronic): Iron & TIBC low, LDH mildly elevated. Platelets stable, periodic monitoring, most recent platlets, platlets today 86 End-stage renal disease (HD MWF): Temporary dialysis catheter placed (04/07). Acute lactic acidosis: Likely due to dehydration + ESRD. Chronic atrial fibrillation: Eliquis held due to GI bleed, anemia, and thrombocytopenia. Continue Amiodarone & Metoprolol. Time Attestation Discharge Coordination Time (in mins): 45 Quality: Safe Use of Opioids Does Pt have an Active Cancer Diagnosis on the Problem List?: No Quality: Stroke Does the patient have a stroke diagnosis?: No Physical Exam Vital Signs: Vital Signs: Selected Entries 04/18/24 13:33 Temperature 98.2 F Pulse Rate 60 Respiratory Rate 18 Blood Pressure 129/63 Pulse Oximetry 95 Oxygen Delivery Me thod Room Air Const: Other: Gen: Awake alert, in no acute distress Neck: supple Lungs: No respiratory distress, diminished at bases Heart: regular rate and rhythm, no murmurs Abd: soft, non-tender, non-distended, bowel sounds audible. Ext: no edema Skin: warm/well-perfused Neuro: alert and oriented x3, no focal findings Psych: appropriate affect DS: Data Data Completed and Pending Completed studies during hospitalization [Text1]: Procedures Control Bleeding in Gastrointestinal Tract, Via Natural or Artificial Opening Endoscopic (11/09/22) Destruction of Stomach, Pylorus, Via Natural or Artificial Opening Endoscopic (06/18/22) Excision of Ascending Colon, Via Natural or Artificial Opening Endoscopic, Diagnostic (06/18/22) Excision of Descending Colon, Via Natural or Artificial Opening Endoscopic, Diagnostic (06/18/22) Excision of Duodenum, Via Natural or Artificial Opening Endoscopic, Diagnostic (06/18/22) Excision of Rectum, Via Natural or Artificial Opening Endoscopic, Diagnostic () Excision of Stomach, Pylorus, Via Natural or Artificial Opening Endoscopic, Diagnostic (06/18/22) Insertion of Pacemaker Lead into Right Atrium, Percutaneous Approach (06/18/22) Insertion of Pacemaker Lead into Right Ventricle, Percutaneous Approach (06/18/22) Insertion of Pacemaker, Dual Chamber into Chest Subcutaneous Tissue and Fascia, Open Approach (06/18/22) Introduction of Mineral-based Topical Hemostatic Agent into Lower GI, Via Natural or Artificial Opening Endoscopic, [employer] (11/09/22) Introduction of Vasopressor into Peripheral Vein, Percutaneous Approach (02/04) Occlusion of Inferior Mesenteric Artery with Intraluminal Device, Percutaneous Approach (11/09/22) Performance of Urinary Filtration, Intermittent, Less than 6 Hours Per Day (03/08/24) Transfusion of Nonautologous Red Blood Cells into Peripheral Vein, Percutaneous Approach (11/24/23) Labs on day of discharge: Laboratory Results - last 24 hr 04/15/24 17:28 Pleural LDH Cancelled Discharge Plan Discharge Anticipated Discharge Date/Time: 04/18/24 14:36 Patient Disposition: Xfer SNF Discharge Diagnosis: septic shock, bacteremia, Referrals: [facility] [place] [Outside] - 1 Week (TRANSFER FOR SHORT TERM REHAB) Anabelle Duncan RN [Primary Care Provider] - 1 Week Discharge Medications: New vancomycin 125 mg Capsule See Rx Instructions .ROUTE .COMPLEX Qty: 60 0RF Rx Instructions: Vancomycin 125 mg PO TID x 1 week, then twice daily for 1 week, then 1 tablet daily for 1 week, then 1 tablet Sunday, Wednesdays, and Fridays indefinitely melatonin 3 mg Tablet 6 mg PO BEDTIME PRN (Reason: Insomnia) Qty: 60 0RF metoprolol tartrate 25 mg Tablet 25 mg PO BID Qty: 60 0RF Protocol: Hold for SBP/HR < HOLD for SBP < : 90 HOLD for HR < : 60 cholestyramine (with sugar) 4 gram Powder In Packet 0.5 ea PO BIDWM Qty: 60 0RF Continued ferrous sulfate 325 mg (65 mg iron) Tablet 325 mg PO BID Qty: 60 3RF ascorbic acid (vitamin C) [Vitamin C] 500 mg Tablet 250 mg PO BID Qty: 60 3RF (DME) radha Misc See Rx Instructions .Route Qty: 1 0RF Rx Instructions: As directed clobetasol 0.05 % Cream 1 appl TOPICAL BID PRN (Reason: itching/rash) pramoxine 1 % Lotion 1 appl TOPICAL BID PRN (Reason: Itching) clindamycin phosphate 1 % Lotion 1 appl TOPICAL BID PRN (Reason: Acne) amiodarone 200 mg tablet 200 mg PO DAILY Qty: 90 1RF Rx Instructions: After loading dose. Discontinued metoprolol tartrate 100 mg tablet 100 mg PO BID 90 Days Qty: 180 0RF Protocol: Hold for SBP/HR < HOLD for SBP < : 90 HOLD for HR < : 60 Eliquis 5 mg Tablet 5 mg PO BID Qty: 60 4RF diltiazem HCl [DILT-XR] 240 mg capsule,ext.rel 24h degradable 240 mg PO DAILY lisinopril 5 mg Tablet 5 mg PO DAILY vancomycin 125 mg Capsule 125 mg PO Q6H Qty: 81 0RF Rx Instructions: vancomycin 125 mg q.i.d. for 10 days then 125 mg t.i.d. for 7 days then 125 mg twice a day for 7 days then 125 mg every other day for 7 days then 125 mg every Sunday, Sunday, Sunday continuously Discharge Orders: Discharge Order (Routine); Ordered 04/18/24 Ordered By: Facundo Addison Diet: Advance to usual diet Activity on Discharge: As tolerated Stand Alone Forms: Patient Portal Discharge page Print Language: Jamaican Care Plan Goals: recovery from prolonged hospitalization for sepsis related to catheter associated bacteremia, septic shock, anemia, Health Concerns: chronic dialysis patient chronic diarrhea anemia, and thrombocytopenia obstructive uropathy Plan of Treatment: To short term rehab stop taking eliquis due to anemia and low platlets take Vancomycin PO to prevent C dif take 125 mg 3 times a day for 1 week, then 2 times a day for 1 week, than daily for 1 week, then on MWF indefinately To follow up with urology on outpatient basis and follow up with your surgeon in [place] Assessment: see above
[2024-04-18 15:25] VITALS: BP 127/61; PULSE 60; RESP 18; TEMP 36.3; O2SAT 95
[2024-04-18 15:48] LABS: Hematocrit 26.8 % (42.0-52.0); Hemoglobin 8.8 g/dl (14.0-18.0); Mean Corpuscular HGB Conc 32.8 g/dl (31.0-36.0); Mean Corpuscular Volume 97.5 fL (80.0-98.0); Mean Platelet Volume 12.6 fL (9.4-12.4); Red Blood Count 2.75 X10*6/uL (4.60-5.80); Red Cell Distribution Width 18.7 % (11.0-16.0); White Blood Count 10.1 X10*3/uL (4.8-10.8)
[2024-04-18 15:57] LABS: Anion Gap 10 (12-20); Blood Urea Nitrogen 5 mg/dL (9-16); Calcium 7.4 mg/dL (8.4-10.2); Carbon Dioxide 27 mmol/L (22-29); Chloride 106 mmol/L (96-108); Creatinine Clr Calc Pharmacy 49.4; Estimated Glomerular Filt Rate 56; Glucose Random 101 mg/dL (60-115); Potassium 3.5 mmol/L (3.3-5.1); Sodium 139 mmol/L (135-145)
[2024-04-18 15:59] LABS: Platelet Count 86 X10*3/uL (160-400)
[2024-04-18 17:40] VITALS: BP 149/62; PULSE 60; RESP 18; TEMP 36.2; O2SAT 95
== END 2024-04-18 17:36 | disposition skilled nursing facility (03) | DRG 981 ==
LOC: HO.ED 06:05 → HO.EDOVER 07:00 → HO.IMC 16:56 → HO.EDOVER 19:50 → HO.ICU 19:59 → HO.IMC 03-30 13:40 → HO.S3 04-13 16:24
PROVIDERS: Internal Medicine; Internal Medicine Critical Care Medicine; Physician Assistant Medical; Physician Assistant Surgical; Student in an Organized Health Care Education/Training Program; Urology; Admitting Provider Student in an Organized Health Care Education/Training Program; Emergency Provider Internal Medicine; Referring Provider Internal Medicine Gastroenterology; Visit Provider Internal Medicine
PROC: 0DJ08ZZ Inspection of Upper Intestinal Tract, Via Natural or Artificial Opening Endoscopic (ICD-10-PCS; CPT 43235; principal; 2024-03-29 15:00)
PROC: 0TJB8ZZ Inspection of Bladder, Via Natural or Artificial Opening Endoscopic (ICD-10-PCS; CPT 52000; principal; 2024-04-07 16:20)
PROC: 0T133JD Bypass Right Kidney Pelvis to Cutaneous with Synthetic Substitute, Percutaneous Approach (ICD-10-PCS; principal; 2024-04-08 14:00)
DX: T80.211A Bloodstream infection due to central venous catheter, initial encounter (principal); A41.9 Sepsis, unspecified organism; K31.82 Dieulafoy lesion (hemorrhagic) of stomach and duodenum; N18.6 End stage renal disease; R57.1 Hypovolemic shock; R65.21 Severe sepsis with septic shock; I12.0 Hypertensive chronic kidney disease with stage 5 chronic kidney disease or end stage renal disease; J98.11 Atelectasis; K56.7 Ileus, unspecified; A04.71 Enterocolitis due to Clostridium difficile, recurrent; D62 Acute posthemorrhagic anemia; Z16.12 Extended spectrum beta lactamase (ESBL) resistance; B37.81 Candidal esophagitis; I48.20 Chronic atrial fibrillation, unspecified; N13.1 Hydronephrosis with ureteral stricture, not elsewhere classified; Y82.8 Other medical devices associated with adverse incidents; I49.5 Sick sinus syndrome; D69.59 Other secondary thrombocytopenia; K29.70 Gastritis, unspecified, without bleeding; D13.5 Benign neoplasm of extrahepatic bile ducts; N36.5 Urethral false passage; K62.89 Other specified diseases of anus and rectum; Z99.2 Dependence on renal dialysis; K86.9 Disease of pancreas, unspecified; K29.80 Duodenitis without bleeding; E86.0 Dehydration; B96.89 Other specified bacterial agents as the cause of diseases classified elsewhere; D50.9 Iron deficiency anemia, unspecified; Z95.0 Presence of cardiac pacemaker; Z85.038 Personal history of other malignant neoplasm of large intestine; Z87.891 Personal history of nicotine dependence; Z79.01 Long term (current) use of anticoagulants; Z79.899 Other long term (current) drug therapy
CPT/HCPCS: 36415; 36558; 36589; 50432; 71045; 74176; 74181; 76080; 76604; 80048; 80053; 80076; 80202; 82272; 82607; 82652; 82728; 82746; 82803; 82947; 83010; 83540; 83605; 83615; 83690; 83735; 84100; 84155; 84484; 85014; 85018; 85025; 85027; 85045; 85379; 85384; 85610; 86850; 86900; 86901; 86923; 87040; 87071; 87077; 87086; 87088; 87186; 87205; 87324; 87493; 87507; 90999; 93005; 97110; 97116; 97162; 97530; 99152; 99285; C1750; C1769; C1887; C1894; J0283; J0690; J0696; J1610; J1644; J1836; J2003; J2004; J2185; J2250; J2354; J2405; J2470; J2597; J2704; J2765; J3010; J3370; J3371; J3430; J3475; P9016; P9047; P9073; Q5106; Q9967

== ENCOUNTER → 2024-03-25 02:53 | Outpatient (BNV) | payer MEDICARE, SELFPAY | PROVIDERS: Admitting Provider Student in an Organized Health Care Education/Training Program; Emergency Provider Internal Medicine; Visit Provider Internal Medicine Cardiovascular Disease | DX: R94.31 Abnormal electrocardiogram [ECG] [EKG] (principal); Z95.0 Presence of cardiac pacemaker | CPT/HCPCS: 93010 ==

== ENCOUNTER → 2024-03-25 03:51 | Outpatient (BNV) | payer MEDICARE, SELFPAY | PROVIDERS: Emergency Provider Internal Medicine; Visit Provider Radiology Diagnostic Radiology | DX: K56.609 Unspecified intestinal obstruction, unspecified as to partial versus complete obstruction (principal); J90 Pleural effusion, not elsewhere classified; R18.8 Other ascites; K86.9 Disease of pancreas, unspecified | CPT/HCPCS: 74176 ==

== ENCOUNTER 2024-03-25 06:42 | Outpatient (BNV) | payer OTHER, SELFPAY | END 2024-04-02 12:00 | PROVIDERS: Admitting Provider Student in an Organized Health Care Education/Training Program; Emergency Provider Internal Medicine; Visit Provider Radiology Diagnostic Radiology | DX: J90 Pleural effusion, not elsewhere classified (principal) | CPT/HCPCS: 76604 ==

== ENCOUNTER 2024-03-25 06:42 | Outpatient (BNV) | payer OTHER, SELFPAY | END 2024-04-10 15:05 | PROVIDERS: Admitting Provider Student in an Organized Health Care Education/Training Program; Emergency Provider Internal Medicine; Visit Provider Physician Assistant Surgical | DX: N13.0 Hydronephrosis with ureteropelvic junction obstruction (principal); T83.022A Displacement of nephrostomy catheter, initial encounter | CPT/HCPCS: 50431 ==

== ENCOUNTER 2024-03-25 06:42 | Outpatient (BNV) | payer OTHER, SELFPAY | END 2024-04-07 20:09 | PROVIDERS: Admitting Provider Student in an Organized Health Care Education/Training Program; Emergency Provider Internal Medicine; Visit Provider Physician Assistant Surgical | DX: N18.6 End stage renal disease (principal); Z99.2 Dependence on renal dialysis | CPT/HCPCS: 36558; 76937; 77001 ==

== ENCOUNTER 2024-03-25 06:42 | Outpatient (BNV) | payer MEDICARE, SELFPAY | END 2024-03-26 04:08 | PROVIDERS: Admitting Provider Student in an Organized Health Care Education/Training Program; Emergency Provider Internal Medicine; Visit Provider Radiology Diagnostic Radiology | DX: I50.9 Heart failure, unspecified (principal); J98.11 Atelectasis | CPT/HCPCS: 71045 ==

== ENCOUNTER 2024-03-25 06:42 | Outpatient (BNV) | payer OTHER, SELFPAY | END 2024-04-04 13:36 | PROVIDERS: Admitting Provider Student in an Organized Health Care Education/Training Program; Emergency Provider Internal Medicine; Visit Provider Radiology Diagnostic Radiology | DX: C25.9 Malignant neoplasm of pancreas, unspecified (principal); K82.9 Disease of gallbladder, unspecified; D49.512 Neoplasm of unspecified behavior of left kidney; J91.8 Pleural effusion in other conditions classified elsewhere | CPT/HCPCS: 74181 ==

== ENCOUNTER 2024-03-25 06:42 | Outpatient (BNV) | payer OTHER, SELFPAY | END 2024-04-08 12:30 | PROVIDERS: Admitting Provider Student in an Organized Health Care Education/Training Program; Emergency Provider Internal Medicine; Visit Provider Student in an Organized Health Care Education/Training Program | DX: N13.9 Obstructive and reflux uropathy, unspecified (principal) | CPT/HCPCS: 50432 ==

== ENCOUNTER → 2024-03-25 06:42 | Outpatient (BNV) | payer MEDICARE, SELFPAY | PROVIDERS: Admitting Provider Student in an Organized Health Care Education/Training Program; Emergency Provider Internal Medicine; Visit Provider Physician Assistant | DX: D69.6 Thrombocytopenia, unspecified (principal); D62 Acute posthemorrhagic anemia | CPT/HCPCS: 99223; 99231; 99232; 99499 ==

== ENCOUNTER → 2024-03-25 06:42 | Outpatient (BNV) | payer MEDICARE, SELFPAY | PROVIDERS: Admitting Provider Student in an Organized Health Care Education/Training Program; Emergency Provider Internal Medicine; Visit Provider Internal Medicine Critical Care Medicine | DX: N18.6 End stage renal disease (principal); I48.91 Unspecified atrial fibrillation; R00.1 Bradycardia, unspecified; Z45.018 Encounter for adjustment and management of other part of cardiac pacemaker; N17.9 Acute kidney failure, unspecified; D64.9 Anemia, unspecified; A41.9 Sepsis, unspecified organism; R65.21 Severe sepsis with septic shock; A04.0 Enteropathogenic Escherichia coli infection | CPT/HCPCS: 36556; 99291 ==

== ENCOUNTER → 2024-03-25 06:42 | Outpatient (BNV) | payer OTHER, SELFPAY | PROVIDERS: Admitting Provider Student in an Organized Health Care Education/Training Program; Emergency Provider Internal Medicine; Visit Provider Internal Medicine | DX: I48.91 Unspecified atrial fibrillation (principal) | CPT/HCPCS: 99223 ==

== ENCOUNTER → 2024-03-25 06:42 | Outpatient (BNV) | payer OTHER, SELFPAY | PROVIDERS: Admitting Provider Student in an Organized Health Care Education/Training Program; Emergency Provider Internal Medicine; Visit Provider Internal Medicine | DX: A41.9 Sepsis, unspecified organism (principal); R65.21 Severe sepsis with septic shock; Z95.0 Presence of cardiac pacemaker; N18.6 End stage renal disease; A04.0 Enteropathogenic Escherichia coli infection | CPT/HCPCS: 99222 ==

== ENCOUNTER → 2024-03-25 06:42 | Outpatient (BNV) | payer OTHER, SELFPAY | PROVIDERS: Admitting Provider Student in an Organized Health Care Education/Training Program; Emergency Provider Internal Medicine; Visit Provider Urology | DX: A41.9 Sepsis, unspecified organism (principal); R65.21 Severe sepsis with septic shock; N13.0 Hydronephrosis with ureteropelvic junction obstruction | CPT/HCPCS: 52000; 74420; 99232 ==

== ENCOUNTER → 2024-03-25 06:42 | Outpatient (BNV) | payer MEDICARE, SELFPAY | PROVIDERS: Admitting Provider Student in an Organized Health Care Education/Training Program; Emergency Provider Internal Medicine; Visit Provider Surgery | DX: D62 Acute posthemorrhagic anemia (principal); N18.6 End stage renal disease | CPT/HCPCS: 99222; 99232 ==

== ENCOUNTER → 2024-03-25 06:42 | Outpatient (BNV) | payer OTHER, SELFPAY | PROVIDERS: Admitting Provider Student in an Organized Health Care Education/Training Program; Emergency Provider Internal Medicine; Visit Provider Internal Medicine Gastroenterology | DX: D62 Acute posthemorrhagic anemia (principal); K31.82 Dieulafoy lesion (hemorrhagic) of stomach and duodenum; K29.70 Gastritis, unspecified, without bleeding; K29.80 Duodenitis without bleeding; B37.81 Candidal esophagitis | CPT/HCPCS: 43255; 99223 ==

== ENCOUNTER → 2024-03-25 06:42 | Outpatient (BNV) | payer OTHER, SELFPAY | PROVIDERS: Admitting Provider Student in an Organized Health Care Education/Training Program; Emergency Provider Internal Medicine; Visit Provider Internal Medicine | DX: D69.6 Thrombocytopenia, unspecified (principal) | CPT/HCPCS: 99222 ==

== ENCOUNTER 2024-06-02 09:32 | Inpatient (IN) | payer OTHER, SELFPAY ==
--- NOTE | ~2024-06-02 | CT_ITS ---
CLINICAL HISTORY: rt side nephrostomy catheter CT abdomen and pelvis without IV or oral contrast Comparison: CT/SR - CT ABDOMEN PELVIS WO IV CON - 03/25/24 04:09 EST Findings: Persistent pleural-parenchymal disease lung bases [id number].Dual-chamber pacemaker/ AICD.Coronary artery calcifications are mild. Right percutaneous nephrostomy catheter in place minimal air within the collecting system on the right may be iatrogenic. Infectious process can not be entirely excluded. No obstructing calculus demonstrated. Slightly hyperdense exophytic lesion midpole left kidney measuring 2 cm needs ultrasound or contrast-enhanced CT correlation. Calcified hepatic granuloma. Subcentimeter probable splenic cyst. it should be noted that isodense masses may be obscured in the absence of intravenous contrast. Mild gallbladder hydrops no radiopaque gallstones. No pathologically enlarged lymph nodes . No ascites demonstrated. Resolution of the previously described small bowel dilatation. Ward colitis/ proctitis is present. Increased soft tissue density and air is again noted just distal to the aortic bifurcation fistulous communication can not be excluded. Cystitis likely present. No change in the probable fluid attenuating structure measuring 3.8 cm within the omentum left mid abdomen level correlate with ultrasound. Small fat containing umbilical hernia without evidence of omental infarction. Mild anasarca. Stable degenerative spondylosis with and degenerative disc disease without spondylolisthesis. Impression: 1. Right percutaneous nephrostomy catheter in place air within the collecting system on the right probably iatrogenic infectious process or fistula can not be excluded. No evidence of obstructive uropathy. Indeterminate exophytic lesion left kidney needs further workup as described. 2. Persistent pleural-parenchymal disease on the left this has improved on the right. 3. Ward colitis. Proctitis. Cystitis. Indeterminate soft tissue density with air just below the aortic bifurcation fistulous process can not be excluded CT with oral Gastrografin may be of further diagnostic value. 4. No interval change in the probable chronic walled-off fluid collection within the omentum left mid abdomen. This document has been electronically signed by: Yaya Bales MD on 06/02/2024 12:17:26
--- NOTE | ~2024-06-02 | XR_ITS ---
CLINICAL HISTORY: cough 1 view chest x-ray Comparison: CR - XR CHEST 1V - 03/26/24 04:29 EST Findings: There is a left lower lobe pleural-parenchymal opacity. No pneumothorax. Cardiomediastinal silhouette is accentuated by portable technique and suboptimal inspiratory effort. No overt CHF. Single lead cardiac pacemaker is unchanged in position. No acute fracture. Left-sided hemodialysis catheter tip is near the atriocaval junction. IMPRESSION: 1. Hypoventilation 2. Left lower lobe small pleural effusion and/or atelectasis and/or infiltrate. This document has been electronically signed by: Tootie Smiley DO on 06/02/2024 14:31:34
--- NOTE | ~2024-06-02 | IR_ITS ---
CLINICAL HISTORY: Patient requires long-term IV access. The patient presents to interventional radiology for placement of a tunneled central venous catheter at request of referring provider. PROCEDURES: 1. Real-time ultrasound-guided access into the right internal jugular vein after documentation of selected vessel patency, and permanent imaging storing in the patient record. 2. Placement of a tunneled, dual-lumen central venous catheter (Walker). MEDICATIONS: -Lidocaine 1% 10 mL SQ. -For additional details, please see nursing flowsheet. COMPLICATIONS: None. ESTIMATED BLOOD LOSS: <5 ml SPECIMENS: None FLUOROSCOPY TIME: 0.1 min PROCEDURE NOTE: The procedure, risks, benefits, and alternatives were carefully explained to patient, and written informed consent was obtained. The patient was placed supine on the fluoroscopy table. A timeout was performed. The right neck and chest was prepped and draped in usual sterile fashion. Local anesthesia was administered to the access site with lidocaine. Under ultrasound guidance, the right internal jugular vein was accessed with a 4 Fr micropuncture set. A 0.018 in wire was advanced into the IVC. A peel-away sheath was placed. A double lumen Walker catheter was then tunneled from a location inferior to the venipuncture site with special care made to not violate the indwelling pacer or subclavian venous approach pacer wires. The catheter was cut to length and then inserted through the peel-away sheath. The peel-away sheath was removed. The catheter tip was located at the cavoatrial junction and this was documented with a saved fluoroscopic image.The catheter was tested, flushed, and sutured to the skin. A permanent fluoroscopic image of the chest was saved to PACS. The catheter ports were terminally flushed with heparin per routine protocol. The patient was stable after the procedure and was transferred to the medical floor. There were no immediate complications. FINDINGS: 1. Patent right internal jugular vein. 2. Placement of a tunneled, dual-lumen central venous catheter as above. 3. Catheter flushes and aspirates very well IR/IR cvc insert central tunnel IMPRESSION: Placement of a tunneled central venous catheter in the right internal jugular vein. PLAN: -The catheter may be used immediately. Electronically signed by: Rodolfo Hunter MD 06/11/2024 03:12 PM EDT
--- NOTE | ~2024-06-02 | CT_ITS ---
CLINICAL HISTORY: sob ?pneumonmia CT chest without contrast Comparison: None Findings: Normal heart size. Moderately severe coronary artery calcification. A cardiac pacemaker is present. The visualized thyroid and mediastinum are unremarkable. Moderate bilateral pleural effusions. Adjacent bandlike atelectasis within the left lower lobe. Ground-glass opacities are present within the bilateral lungs. 19 mm mildly heterogeneous, mildly hyperdense nodule within the left kidney. Partial visualization of a peripelvic cyst within the right kidney. Small amount of free fluid within the visualized abdomen. Multiple foci of gallbladder wall calcifications. Partial visualization of 2 linear foreign bodies within the proximal duodenum. Severe edema of the soft tissues. The bones are intact. There are bilateral central venous lines. IMPRESSION: 1. Moderate bilateral pleural effusions. Ground-glass opacities within the bilateral lungs which could be secondary to edema or interstitial infiltrates. 2. There is evidence of right heart failure. There is a small amount of free fluid within the visualized abdomen and there is edema of the soft tissues. 3. Partial visualization of a 19 mm nodule within the left kidney. This may potentially represent a solid nodule. Recommend ultrasound evaluation when clinically appropriate. 4. There is partial visualization of 2 adjacent linear foreign bodies within the proximal duodenum. This may be iatrogenic. Can not exclude ingested foreign bodies. This document has been electronically signed by: Bridgette Gupta MD on 06/13/2024 17:46:29
--- NOTE | ~2024-06-02 | XR_ITS ---
EXAMINATION: XR CHEST CLINICAL INFORMATION: sob COMPARISON: 06/02/2024. TECHNIQUE: AP view of the chest was obtained. FINDINGS: Left-sided dialysis catheter in place, tip terminating in the cavoatrial junction region. Numerous leads overlie the thorax. There is a right-sided central venous catheter which has been placed, tip difficult to visualize but appears to terminate in the cavoatrial junction region as well. Right-sided dual-lead pacer device in place with leads extending into the right ventricle and right atrium. Lungs demonstrate mild interstitial pulmonary edema, with patchy opacity in the right midlung, possibly pneumonia or alveolar edema. There is a small layering left effusion, slightly increased in size from 06/02/2024. No perceptible pneumothorax. There is mild enlargement of the cardiac silhouette, which is partially secured on the left. Normal hilar contours and mediastinal contours. There is aortic mural calcification and ectasia. No discrete soft tissue or bony abnormality. Degenerative changes of the shoulder joints and spine. XR/XR chest 1V IMPRESSION: 1. Lines and tubes in satisfactory position. 2. Right-sided Dual-lead pacer in place, unchanged. 3. Mild cardiac enlargement, with development of mild interstitial pulmonary edema. There is a slightly larger small left effusion. 4. Opacity in the right lower lung, possibly alveolar edema versus developing pneumonia. Follow-up recommended. 5. There is no perceptible pneumothorax. Electronically signed by: Lior Lewis MD 06/13/2024 10:00 AM EDT
--- NOTE | ~2024-06-02 | IR_ITS ---
EXAMINATION: Removal of right Awlker catheter. CLINICAL INDICATION: Right Walker catheter removal. Not needed anymore. TECHNIQUE: The area in right anterior chest wall incision a right Walker catheter was cleaned and draped in usual sterile manner. 1% lidocaine was injected at puncture site. Using these is an hemostats the skin opening around the catheter was slightly opened and the catheter was gently pulled out. The cuff of the whole catheter was out. There was minimal bleeding. Less than 2 mL. Pressure dressing was applied at the puncture site and patient was sent to floor. FINDINGS/ IR/IR cvc remov tunnel wo prt/producer arborist manager IMPRESSION: Successful removal of right Walker catheter without immediate complications. No fluoroscopy was used. Electronically signed by: Alfredo Ramirez MD 06/19/2024 10:11 AM EDT
--- NOTE | ~2024-06-02 | US_ITS ---
CLINICAL HISTORY: lle swelling VENOUS DUPLEX ULTRASOUND LEFT LOWER EXTREMITY Comparison: None Findings: Noncompressible intraluminal thrombus extends from the calf veins into the popliteal, femoral, proximal deep femoral and common femoral veins. There are absent color flow and abnormal waveforms. Thrombus extends into the greater saphenous confluence. Cursory evaluation of the right common femoral vein demonstrates patency. No popliteal cyst. There is fluid stranding in the subcutaneous tissues consistent with edema. IMPRESSION: Positive for extensive left lower extremity deep venous thrombosis. This document has been electronically signed by: Tootie Smiley DO on 06/02/2024 14:56:51
--- NOTE | ~2024-06-02 | US_ITS ---
EXAMINATION: US TRIPLEX UPPER EXTREMITY, RIGHT CLINICAL INFORMATION: History of DVT, anticoagulated, finger discoloration. COMPARISON: None available. TECHNIQUE: Color-flow triplex imaging with spectral analysis and compression Doppler was performed on the right upper extremity. FINDINGS: The right internal jugular, subclavian, and axillary veins are patent and free of thrombus. The imaged segment of the right brachiocephalic vein is patent. Spectral doppler waveforms are normal. The brachial, radial, and ulnar veins are patent and compressible. The imaged aspects of the cephalic vein and basilic vein which are not obscured by bandaging or IV appear patent. US/US venous duplex UE RT IMPRESSION: No evidence of deep venous thrombosis involving the right upper extremity. Electronically signed by: Lior Lewis MD 06/04/2024 03:08 PM EDT
--- NOTE | ~2024-06-02 | IR_ITS ---
FINDINGS/ IR/IR nephrostomy RT removal IMPRESSION: The right nephrostomy catheter was removed as it was not needed anymore. Electronically signed by: Alfredo Ramirez MD 06/13/2024 06:57 AM EDT
[2024-06-02 09:39] VITALS: BP 104/62; BP 118/72; PULSE 52; PULSE 89; RESP 18; TEMP 36.5; BMI 18.7
[2024-06-02 10:00] VITALS: BP 118/72; PULSE 87; RESP 17; TEMP 36.5; O2SAT 98
--- OUTSIDE RECORDS SUMMARY | 2024-06-02 10:10 | XMS_ITS | Encounter Summary ---
Author Organization Location Address [address] [place] [address] Care Team Providers Care Aurist Name Role Phone Naty Harvey MD Primary Care Provider [phone] Encounter Details Date Type Department Care Team (Latest Contact Info) Description 04/19/2024 Lab Requisition [facility] - Main Lab [address] [place] [address] Naty Harvey MD [address] [place] [address] Anemia, unspecified; Type 2 diabetes mellitus without complications (CMS/HCC V24, CMS/HCC V28); Essential (primary) hypertension; End stage renal disease (CMS/HCC V24, CMS/HCC V28) Social History Tobacco Use Types Packs/Day Years Used Date Smoking Tobacco: Never Assessed Sex and Gender Information Value Date Recorded Sex Assigned at Not on file Legal Sex Male 8:54 PM EST Gender Identity Not on file Sexual Orientation Not on file documented as of this encounter Plan of Treatment Not on file documented as of this encounter Procedures Procedure Name Priority Date/Time Associated Diagnosis Comments COMPLETE BLOOD COUNT Routine 04/19/2024 5:35 AM EST Anemia, unspecified Type 2 diabetes mellitus without complications (CMS/HCC) Essential (primary) hypertension End stage renal disease (CMS/HCC) COMPREHENSIVE METABOLIC PANEL Routine 04/19/2024 5:35 AM EST Anemia, unspecified Type 2 diabetes mellitus without complications (CMS/HCC) Essential (primary) hypertension End stage renal disease (CMS/HCC) documented in this encounter Results * (ABNORMAL) Comprehensive metabolic panel (04/19/2024 5:35 AM EST) Sodium 142 133 - 145 mmol/L LAB CHEMISTRY METHOD 04/19/2024 11:05 AM [facility] Potassium 3.4(L) 3.5 - 5.5 mmol/L LAB CHEMISTRY METHOD 04/19/2024 11:05 AM [facility] Chloride 107 96 - 110 mmol/L LAB CHEMISTRY METHOD 04/19/2024 11:05 AM [facility] CO2 30 21 - 32 mmol/L LAB CHEMISTRY METHOD 04/19/2024 11:05 AM [facility] Anion Gap 5 3 - 11 LAB CHEMISTRY METHOD 04/19/2024 11:05 AM [facility] Glucose 67(L) 70 - 100 mg/dL LAB CHEMISTRY METHOD 04/19/2024 11:05 AM [facility] BUN 8 5 - 25 mg/dL LAB CHEMISTRY METHOD 04/19/2024 11:05 AM [facility] Creatinine 1.74(H) 0.70 - 1.30 mg/dL LAB CHEMISTRY METHOD 04/19/2024 11:05 AM [facility] eGFR 40(L) >=60 mL/min/1. 73m2 LAB CHEMISTRY METHOD 04/19/2024 11:05 AM [facility] Comment:Calculation based on the??Chronic Kidney Disease Epidemiology Collaboration (CKD-EPI) equation refit??without adjustment for race. BUN/Creatinine Ratio 4.6 LAB CHEMISTRY METHOD 04/19/2024 11:05 AM [facility] Calcium 7.2(L) 8.5 - 10.5 mg/dL LAB CHEMISTRY METHOD 04/19/2024 11:05 AM [facility] AST (SGOT) 20 10 - 42 unit/L LAB CHEMISTRY METHOD 04/19/2024 11:05 AM [facility] ALT (SGPT) 6(L) 10 - 60 unit/L LAB CHEMISTRY METHOD 04/19/2024 11:05 AM [facility] Alkaline Phosphatase 88 42 - 121 unit/L LAB CHEMISTRY METHOD 04/19/2024 11:05 AM EST [facility] Total Protein 4.8(L) 6.0 - 8.0 g/dL LAB CHEMISTRY METHOD 04/19/2024 11:05 AM [facility] Albumin 1.8(L) 3.2 - 5.0 g/dL LAB CHEMISTRY METHOD 04/19/2024 11:05 AM [facility] Total Bilirubin 0.7 0.0 - 1.4 mg/dL LAB CHEMISTRY METHOD 04/19/2024 11:05 AM [facility] Blood Venous blood specimen / Unknown Venipuncture / Unknown 04/19/2024 5:35 AM EST 04/19/2024 9:59 AM EST us Naty Harvey MD LAB BLOOD ORDERABLES Final Resul t [facility] [address] [place] [address], * (ABNORMAL) Complete blood count (04/19/2024 5:35 AM EST) WBC 8.4 4.8 - 10.8 K/mcL LAB HEMETOLOGY METHOD 04/19/2024 11:25 AM [facility] RBC 2.40(L) 4.50 - 5.50 M/mcL LAB HEMETOLOGY METHOD 04/19/2024 11:25 AM [facility] Hemoglobin 7.6(L) 13.5 - 17.5 g/dL LAB HEMETOLOGY METHOD 04/19/2024 11:25 AM [facility] Hematocrit 24.3(L) 42.0 - 54.0 % LAB HEMETOLOGY METHOD 04/19/2024 11:25 AM [facility] MCV 100.8(H) 79.0 - 98.0 FL LAB HEMETOLOGY METHOD 04/19/2024 11:25 AM EST [facility] MCH 31.5 27.0 - 32.0 pcg LAB HEMETOLOGY METHOD 04/19/2024 11:25 AM [facility] MCHC 31.3(L) 32.0 - 37.0 g/dL LAB HEMETOLOGY METHOD 04/19/2024 11:25 AM EST [facility] RDW 18.7(H) 11.0 - 15.0 % LAB HEMETOLOGY METHOD 04/19/2024 11:25 AM [facility] Platelets 107(L) 130 - 400 K/mcL LAB HEMETOLOGY METHOD 04/19/2024 11:25 AM [facility] MPV 11.5(H) 7.0 - 11.0 FL LAB HEMETOLOGY METHOD 04/19/2024 11:25 AM EST [facility] NRBC 0.0 <1.0 % LAB HEMETOLOGY METHOD 04/19/2024 11:25 AM [facility] NRBC Absolute 0.00 <0.10 K/mcL LAB HEMETOLOGY METHOD 04/19/2024 11:25 AM [facility] Blood Venous blood specimen / Unknown Venipuncture / Unknown 04/19/2024 5:35 AM EST 04/19/2024 9:59 AM EST us Naty Harvey MD LAB BLOOD ORDERABLES Final Resul t [facility] [address] [place] [address], documented in this encounter Visit Diagnoses Diagnosis Anemia, unspecified Type 2 diabetes mellitus without complications (CMS/HCC V24, CMS/HCC V28) Essential (primary) hypertension Unspecified essential hypertension End stage renal disease (CMS/HCC V24, CMS/HCC V28) End stage renal disease documented in this encounter Care Teams Aurist Relationship Specialty Start Date End Date Naty Harvey MD [address] [place] [address] PCP - General Hospitalist Medicine 04/19/24 documented as of this encounter
--- OUTSIDE RECORDS SUMMARY | 2024-06-02 10:10 | XMS_ITS | Encounter Summary ---
Author Organization [employer] Address [address] [place] [address] Care Team Providers Care Senior Escrow Officer Name Role Phone Naty Harvey MD Primary Care Provider [phone] Encounter Details Date Type Department Care Team (Late st Contact Info) Description 04/21/2024 Lab Requisition [facility] - Main Lab [address] [place] [address] Naty Harvey MD [address] [place] [id number] Essential (primary) hypertension; Anemia, unspecified; Enterocolitis due to Clostridium difficile, not specified as recurrent Social History Tobacco Use Types Packs/Day Years [...] Procedure Name Priority Date/Time Associated Diagnosis Comments BASIC METABOLIC PANEL Routine 04/22/2024 5:47 AM EDT Essential (primary) hypertension Anemia, unspecified Enterocolitis due to Clostridium difficile, not specified as recurrent documented in this encounter Results * (ABNORMAL) Basic metabolic panel (04/22/2024 5:47 AM EDT) Sodium 145 133 - 145 mmol/L LAB CHEMISTRY METHOD 04/22/2024 9:[address] [facility] Potassium 3.4(L) 3.5 - 5.5 mmol/L LAB CHEMISTRY METHOD 04/22/2024 9:[address] [facility] Chloride 110 96 - 110 mmol/L LAB CHEMISTRY METHOD 04/22/2024 9:[address] [facility] CO2 27 21 - 32 mmol/L LAB CHEMISTRY METHOD 04/22/2024 9:[address] [facility] Anion Gap 8 3 - 11 LAB CHEMISTRY METHOD 04/22/2024 9:[address] [facility] Glucose 60(L) 70 - 100 mg/dL LAB CHEMISTRY METHOD 04/22/2024 9:[address] [facility] BUN 21 5 - 25 mg/dL LAB CHEMISTRY METHOD 04/22/2024 9:[address] [facility] Comment:Results verified by repeat testing Creatinine 3.41(H) 0.70 - 1.30 mg/dL LAB CHEMISTRY METHOD 04/22/2024 9:[address] [facility] Comment:Results verified by repeat testing eGFR 18(L) >=60 mL/min/1. 73m2 LAB CHEMISTRY METHOD 04/22/2024 9:[address] [facility] Comment:Calculation based on the??Chronic Kidney Disease Epidemiology Collaboration (CKD-EPI) equation refit??without adjustment for race. BUN/Creatinine Ratio 6.2 LAB CHEMISTRY METHOD 04/22/2024 9:[address] [facility] Calcium 6.6(L) 8.5 - 10.5 mg/dL LAB CHEMISTRY METHOD 04/22/2024 9:[address] [facility] Blood Venous blood specimen / Unknown Venipuncture / Unknown 04/22/2024 5:47 AM EDT 04/22/2024 7:46 AM EDT Naty Harvey MD LAB BLOOD ORDERABLES Final Resul t [facility] [address] [place] [address], documented in this encounter Visit Diagnoses Diagnosis Essential (primary) hypertension Unspecified essential hypertension Anemia, unspecified Enterocolitis due to Clostridium difficile, not specified as recurrent documented in this encounter Care Teams Senior Escrow Officer Relationship Specialty Start Date End Date Naty Harvey MD [address] [place] [phone] PCP - General Hospitalist Medicine 04/19/24 documented as of this encounter
--- OUTSIDE RECORDS SUMMARY | 2024-06-02 10:11 | XMS_ITS | Clinical Summary ---
Author Organization [address] [facility] Address [address] [place] [address] Phone Care Team Providers Care Asset Protection Specialist Name Role Phone Naty Harvey MD Primary Care Provider [phone] Encounters Date Type Department Care Team Description 04/21/[address] [facility] [address] [place] [address] Naty Harvey MD Essential (primary) hypertension; Anemia, unspecified; Enterocolitis due to Clostridium difficile, not specified as recurrent 04/19/[address] [facility] [address] [place] [address] Naty Harvey MD Anemia, unspecified; Type 2 diabetes mellitus without complications (CMS/HCC V24, CMS/HCC V28); Essential (primary) hypertension; End stage renal disease ([facility] V24, CMS/[facility] V28) from Last 3 Months Social History Tobacco Use Types Packs/Day Years Used Date Smoking Tobacco: Never Assessed Sex and Gender Information Value Date Recorded Sex Assigned at Not on file Legal Sex Male 8:54 PM EST Gender Identity Not on file Sexual Orientation Not on file Plan of Treatment Health Maintenance Due Date Last Done Comments COVID-19 Vaccine (#1) 09/25/1950 Diabetes: Annual Foot Exam 1956 Diabetes: Annual Retina Eye Exam 1955 Pneumococcal Vaccine: 50+ Years (2 of 2 - PPSV23) 01/05/2016 11/10/2015, 11/21/2012, 08/13/2007 RSV Immunization Adult Patients (1 - 1-dose 75+ series) 2021 Cholesterol Screening (Lipid Panel) 03/09/2023 Depression Screening 03/09/2023 Falls Risk Assessment 03/09/2023 Social Influencers of Health Screening 03/09/2023 Hepatitis B Vaccines (2 of 3 - 19+ 3-dose series) 01/28/2024 12/31/2023 Diabetes: Blood Sugar Control Test (HGBA1C) 04/19/2024 Influenza Vaccine (Season Ended) 2024 03/04/2020, 11/12/2018, 11/12/2017, Additional history exists Diabetes: Annual Urine Albumin-Creatinine Ratio (uACR) 12/14/2024 12/15/2023 Diabetes: Annual GFR (Glomerular Filtration Rate) 04/22/2025 04/22/2024, 04/19/2024 Hypertension/CHF/CAD Annual BMP Blood Test 04/22/2025 04/22/2024, 04/19/2024 DTaP,Tdap,and Td Vaccines (3 - Td or Tdap) 04/06/2031 04/06/2021, 06/15/2008 Zoster Vaccines Completed 11/12/2017, 0403/2017, 11/15/2015 Hepatitis C Screening Completed 12/12/2023 HIB Vaccines Aged Out No longer eligi ble based on patient's age to complete this topic HPV Vaccines Aged Out No longer eligi ble based on patient's age to complete this topic Hepatitis A Vaccines Aged Out No long er eligible based on patient's age to complete this topic IPV Vaccines Aged Out No longer eligi ble based on patient's age to complete this topic MMR Vaccines Aged Out No longer eligi ble based on patient's age to complete this topic Meningococcal ACWY Vaccine Aged Out N o longer eligible based on patient's age to complete this topic Meningococcal B Vaccine Aged Out No l onger eligible based on patient's age to complete this topic RSV Immunization Patients Under 20 months Aged Out No longer eligible based on patient's age to complete this topic Varicella Vaccines Aged Out No longer eligible based on patient's age to complete this topic Procedures Procedure Name Priority Date/Time Associated Diagnosis Comments BASIC METABOLIC PANEL Routine 04/22/2024 5:47 AM EDT Essential (primary) hypertension Anemia, unspecified Enterocolitis due to Clostridium difficile, not specified as recurrent COMPREHENSIVE METABOLIC PANEL Routine 04/19/2024 5:35 AM EST Anemia, unspecified Type 2 diabetes mellitus without complications (CMS/HCC) Essential (primary) hypertension End stage renal disease ([facility]/HCC) COMPLETE BLOOD COUNT Routine 04/19/2024 5:35 AM EST Anemia, unspecified Type 2 diabetes mellitus without complications ([facility]/HCC) Essential (primary) hypertension End stage renal disease (CMS/HCC) from Last 3 Months Results * (ABNORMAL) Basic metabolic panel (04/22/2024 5:47 AM EDT) Sodium 145 133 - 145 mmol/L LAB CHEMISTRY METHOD 04/22/2024 9:24 AM [facility] Potassium 3.4(L) 3.5 - 5.5 mmol/L LAB CHEMISTRY METHOD 04/22/2024 9:24 AM [facility] Chloride 110 96 - 110 mmol/L LAB CHEMISTRY METHOD 04/22/2024 9:24 AM [facility] CO2 27 21 - 32 mmol/L LAB CHEMISTRY METHOD 04/22/2024 9:24 AM [facility] Anion Gap 8 3 - 11 LAB CHEMISTRY METHOD 04/22/2024 9:24 AM [facility] Glucose 60(L) 70 - 100 mg/dL LAB CHEMISTRY METHOD 04/22/2024 9:24 AM [facility] BUN 21 5 - 25 mg/dL LAB CHEMISTRY METHOD 04/22/2024 9:24 AM [facility] Comment:Results verified by repeat testing Creatinine 3.41(H) 0.70 - 1.30 mg/dL LAB CHEMISTRY METHOD 04/22/2024 9:24 AM [facility] Comment:Results verified by repeat testing eGFR 18(L) >=60 mL/min/1. 73m2 LAB CHEMISTRY METHOD 04/22/2024 9:24 AM [facility] Comment:Calculation based on the??Chronic Kidney Disease Epidemiology Collaboration (CKD-EPI) equation refit??without adjustment for race. BUN/Creatinine Ratio 6.2 LAB CHEMISTRY METHOD 04/22/2024 9:24 AM EDT [facility] Calcium 6.6(L) 8.5 - 10.5 mg/dL LAB CHEMISTRY METHOD 04/22/2024 9:24 AM EDT [facility] Blood Venous blood specimen / Unknown Venipuncture / Unknown 04/22/2024 5:47 AM EDT 04/22/2024 7:46 AM EDT us Naty Harvey MD LAB BLOOD ORDERABLES Final Resul t [facility] [address] [place] [address], * (ABNORMAL) Complete blood count (04/19/2024 5:35 AM EST) WBC 8.4 4.8 - 10.8 K/mcL LAB HEMETOLOGY METHOD 04/19/2024 11:25 AM [facility] RBC 2.40(L) 4.50 - 5.50 M/mcL LAB HEMETOLOGY METHOD 04/19/2024 11:25 AM [facility] Hemoglobin 7.6(L) 13.5 - 17.5 g/dL LAB HEMETOLOGY METHOD 04/19/2024 11:25 AM [facility] Hematocrit 24.3(L) 42.0 - 54.0 % LAB HEMETOLOGY METHOD 04/19/2024 11:25 AM [facility] MCV 100.8(H) 79.0 - 98.0 FL LAB HEMETOLOGY METHOD 04/19/2024 11:25 AM [facility] MCH 31.5 27.0 - 32.0 pcg LAB HEMETOLOGY METHOD 04/19/2024 11:25 AM [facility] MCHC 31.3(L) 32.0 - 37.0 g/dL LAB HEMETOLOGY METHOD 04/19/2024 11:25 AM EST [facility] RDW 18.7(H) 11.0 - 15.0 % LAB HEMETOLOGY METHOD 04/19/2024 11:25 AM EST [facility] Platelets 107(L) 130 - 400 K/mcL LAB HEMETOLOGY METHOD 04/19/2024 11:25 AM EST [facility] MPV 11.5(H) 7.0 - 11.0 FL LAB HEMETOLOGY METHOD 04/19/2024 11:25 AM EST [facility] NRBC 0.0 <1.0 % LAB HEMETOLOGY METHOD 04/19/2024 11:25 AM [facility] NRBC Absolute 0.00 <0.10 K/mcL LAB HEMETOLOGY METHOD 04/19/2024 11:25 AM [facility] Blood Venous blood specimen / Unknown Venipuncture / Unknown 04/19/2024 5:35 AM EST 04/19/2024 9:59 AM EST Naty Harvey MD LAB BLOOD ORDERABLES Final Resul t [facility] [address] [place] [address], * (ABNORMAL) Comprehensive metabolic panel (04/19/2024 5:35 AM EST) Sodium 142 133 - 145 mmol/L LAB CHEMISTRY METHOD 04/19/2024 11:05 AM [facility] Potassium 3.4(L) 3.5 - 5.5 mmol/L LAB CHEMISTRY METHOD 04/19/2024 11:05 AM [facility] Chloride 107 96 - 110 mmol/L LAB CHEMISTRY METHOD 04/19/2024 11:05 AM [facility] CO2 30 21 - 32 mmol/L LAB CHEMISTRY METHOD 04/19/2024 11:05 AM [facility] Anion Gap 5 3 - 11 LAB CHEMISTRY METHOD 04/19/2024 11:05 AM [facility] Glucose 67(L) 70 - 100 mg/dL LAB CHEMISTRY METHOD 04/19/2024 11:05 AM [facility] BUN 8 5 - 25 mg/dL LAB CHEMISTRY METHOD 04/19/2024 11:05 AM [facility] Creatinine 1.74(H) 0.70 - 1.30 mg/dL LAB CHEMISTRY METHOD 04/19/2024 11:05 AM [facility] eGFR 40(L) >=60 mL/min/1. 73m2 LAB CHEMISTRY METHOD 04/19/2024 11:05 AM [facility] Comment:Calculation based on the??Chronic Kidney Disease Epidemiology Collaboration (CKD-EPI) equation refit??without adjustment for race. BUN/Creatinine Ratio 4.6 LAB CHEMISTRY METHOD 04/19/2024 11:05 AM [facility] Calcium 7.2(L) 8.5 - 10.5 mg/dL LAB CHEMISTRY METHOD 04/19/2024 11:05 AM [facility] AST (SGOT) 20 10 - 42 unit/L LAB CHEMISTRY METHOD 04/19/2024 11:05 AM [facility] ALT (SGPT) 6(L) 10 - 60 unit/L LAB CHEMISTRY METHOD 04/19/2024 11:05 AM [facility] Alkaline Phosphatase 88 42 - 121 unit/L LAB CHEMISTRY METHOD 04/19/2024 11:05 AM [facility] Total Protein 4.8(L) 6.0 - 8.0 g/dL LAB CHEMISTRY METHOD 04/19/2024 11:05 AM [facility] Albumin 1.8(L) 3.2 - 5.0 g/dL LAB CHEMISTRY METHOD 04/19/2024 11:05 AM [facility] Total Bilirubin 0.7 0.0 - 1.4 mg/dL LAB CHEMISTRY METHOD 04/19/2024 11:05 AM EST [facility] ([facility]) [facility] Blood Venous blood specimen / Unknown Venipuncture / Unknown 04/19/2024 5:35 AM EST 04/19/2024 9:59 AM EST us Naty Harvey MD LAB BLOOD ORDERABLES Final Resul t [facility] ([facility]) [facility] [address] [place] [address], from Last 3 Months Insurance MEDICARE [facility] Care Teams Asset Protection Specialist Relationship Specialty Start Date End Date Naty Harvey MD [address] [place] [address] PCP - General Hospitalist Medicine 04/19/24
--- OUTSIDE RECORDS SUMMARY | 2024-06-02 10:11 | XMS_ITS | Clinical Summary ---
Author Organization [facility] Address [address] [facility] [address] [place] [address] Phone Care Team Providers Care Sculpture Conservator Name Role Phone Joao Duncan MD Primary Care Provider Allergies Active Allergy Reactions Criticality Noted Date Comments Simvastatin Other (see comments) 03/09/2004 Medications apixaban (ELIQUIS) 5 MG tablet Take 5 mg by mouth in the morning and 5 mg in the evening. 3 Active capecitabine (XELODA) 500 MG chemo tablet Take 500 mg by mouth in the morning and 500 mg in the evening. Active hydrocortisone (ANUSOL-HC) 25 MG suppository PRN 3 Active lisinopril 20 MG tablet 20 mg 3 Active metoprolol tartrate (LOPRESSOR) 100 MG tablet Take 100 mg by mouth in the morning and 100 mg in the evening. 3 Active ondansetron ODT (ZOFRAN-ODT) 8 MG dispersible tablet 8 mg 3 Active oxyCODONE (ROXICODONE) 5 MG immediate release tablet TAKE 1 TABLET EVERY 4 HOURS NEEDED FOR PAIN 3 Active Pramoxine HCl 1 % lotion APPLY MODERATE AMOUNT TOPICALLY TWICE DAILY NEEDED APPLY TO ITCHY SKIN 3 Active Omeprazole 20 MG tablet delayed-release Take 20 mg by mouth in the morning and 20 mg in the evening. Active dilTIAZem (TIAZAC) 180 MG 24 hr capsule Take 180 mg by mouth in the morning. Active lisinopril 5 MG tablet Take 1 tablet (5 mg total) by mouth 1 (one) time each day 90 tablet 2 Active ferrous sulfate 325 (65 Fe) MG EC tablet Take 325 mg by mouth 2 (two) times a day Do not crush, chew, or split. 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 05/21/2023 Bilateral hearing loss 05/21/2023 Disorder of kidney and ureter, unspecified 05/20 Dizziness and giddiness 05/21/2023 Encounter for examination an d observation for other specified reasons 05/21/2023 Encounter for fitting and adjustment of hearing aid 05/21/2023 Encounter for fitting and ad justment of spectacles and contact lenses 05/21/2023 Encounter for screening for depression Encounter for therapeutic drug level monitoring 05/21/2023 External hemorrhoid 05/21/2023 Overview (11/13/2023): Replacing diagnoses that were inactivated after the 11/13/23 Regulatory Import Lichen simplex chronicus 05/21/2023 Long-term current use of anticoagulant Malignant neoplasm of colon 05/21/2023 Mild neurocognitive disorder 05/21/2023 Overview (05/21/2023): Nov 26, 2007 Entered By: JOE JIMENEZ MD Comment: As a consequence of ETOH Obesity 05/21/2023 Other and unspecified alcoho l dependence, unspecified drinking behavior 05/21/2023 Other and unspecified hyperlipidemia 05/21/2023 Other specified counseling 05/21/2023 Posttraumatic stress disorder 05/21/2023 Prurigo nodularis 05/21/2023 Sensorineural hearing loss, bilateral 05/21/2023 Tobacco user 05/21/2023 Cardiac pacemaker in situ 09/27/2022 Disorder of cardiovascular system 09/27/2022 Osteoarthritis 09/27/2022 Benign paroxysmal positional vertigo 02/12/2022 Overview (05/21/2023): May 03, 2022 Entered By: JOAO DUNCAN Comment: Treated with meclizine Disorder of kidney and/or ureter 02/12/2021 Overview (05/21/2023): Apr 06, 2021 Entered By: JOAO DUNCAN Comment: Ordered MRI Disorder of pancreas 02/12/2021 Overview (05/21/2023): Apr 06, 2021 Entered By: JOAO DUNCAN Comment: Ordered MRI Anemia 02/12/2010 Overview (05/21/2023): May 13, 2018 Entered By: JOAO DUNCAN Comment: due to alcohol 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 02/13/2008 Essential hypertension 02/12/2007 3 History of polyp of colon 02/12/2005 Resolved Problems Problem Noted Date Diagnosed Date Resolved Date Atrial fibrillation 02/12/2013 05/21/19 24 Encounters Date Type Department Care Team Description 05/28/2024 [facility] [address] [address] Yohannes Jane MD 05/26/2024 Orders Only [facility] [address] [address] Yohannes Jane MD 05/26/2024 Treatment [facility] [address] [phone] Casey Maier MD End stage renal disease; Dependence on renal dialysis 05/21/2024 Orders Only [facility] [address] [address] Casey Maier MD 05/21/2024 Treatment [facility] [address] [address] Casey Maier MD End stage renal disease; Dependence on renal dialysis 05/19/2024 Orders Only [facility] [address] [address] Yohannes Jane MD 05/14/2024 Orders Only [facility] [address] [address] Yohannes Jane MD 05/14/2024 [facility] [address] [address] Casey Maier MD End stage renal disease; Dependence on renal dialysis 05/12/2024 Orders Only [facility] [address] [address] Yohannes Jane MD 05/09/2024 Treatment [facility] [address] [address] Casey Maier MD End stage renal disease; Dependence on renal dialysis 05/07/2024 Orders Only [facility] [address] [address] Yohannes Jane MD 05/05/2024 Orders Only [facility] [address] [address] Yohannes Jane MD 05/05/2024 Treatment [facility] [address] [address] Casey Maier MD End stage renal disease; Dependence on renal dialysis 04/30/2024 Treatment [facility] [address] [phone] Casey Maier MD End stage renal disease; Dependence on renal dialysis 04/28/2024 Orders [facility] [address] [phone] Casey Maier MD 04/25/2024 Orders Only [facility] [address] [address] Yohannes Jane MD 04/23/2024 Orders Only [facility] [address] [address] Casey Maier MD 04/23/2024 Treatment [facility] [address] [address] Casey Maier MD End stage renal disease; Dependence on renal dialysis 04/22/2024 Orders Only [facility] [address] [address] Yohannes Jane MD 03/24/2024 Orders Only [facility] [address] [address] Yohannes Jane MD 03/21/2024 Orders Only [facility] [address] [address] Yohannes Jane MD 03/17/2024 Orders Only [facility] [address] [address] Yohannes Jane MD 03/14/2024 Orders Only [facility] [address] [address] Yohannes Jane MD 03/05/2024 Orders Only [facility] [address] [address] Casey Maier MD 03/05/2024 Treatment [facility] [address] [address] Casey Maier MD from Last 3 Months Immunizations Immunization Administration Dates Next Due H1N1 All Forms 02/12/2009 Influenza, Quadrivalent, Pre servative Free 03/04/2020,11/12/2018 Influenza, Unspecified 11/12/2017,2016,11/10/2015,2010,12/14/2008,12/16/2007,11/20/1995 Pneumococcal Conjugate 13-Valent 11/10/2015 Pneumococcal, Unspecified 11/21/2012,08/13/2007 Shingrix 11/12/2017,05/14/2017 TD Preservative Free 04/06/2021 Tdap 06/15/2008 Zoster 11/15/2015 Family History Medical History Relation Comments Heart disease Mother Relation Status Comments Mother Social History Tobacco Use Types Packs/Day Years Used Date Smoking Tobacco: Never Smokeless Tobacco: Never Tobacco Cessation:Counseling Given: Not Answered Alcohol Use Standard Drinks/Week Comments Not Currently 0 (1 standard drink = 0.6 oz pur e alcohol) Sex and Gender Information Value Date Recorded Sex Assigned at Not on file Legal Sex Male 8:26 AM EDT Gender Identity Not on file Sexual Orientation Not on file Last Filed Vital Signs Vital Sign Reading Time Taken Comments Blood Pressure 142/52 05/21/2023 3:43 PM EDT Pulse 69 05/21/2023 3:43 PM EDT Temperature - - Respiratory Rate - - Oxygen Saturation 96% 05/21/2023 3:43 PM EDT Inhaled Oxygen Concentration - - Weight 90.7 kg (200 lb) 05/21/2023 3:43 PM EDT Height - - Body Mass Index - - Plan of Treatment Health Maintenance Due Date Last Done Comments Hepatitis B Vaccine (1 of 5 - Risk Dialysis 4-dose series) 1965 12/31/2023 Pneumococcal Vaccine: 50+ Ye ars (2 of 2 - PPSV23) 01/05/2016 11/10/2015, 11/21/2012, 08/13/2007 Diabetes: Hemoglobin A1C 04/20/2024 Diabetes: Ophthalmology Exam 04/20/2024 10/18/2022 Diabetes: Pedal Pulse Checked 04/20/2024 Diabetes: Sensory Foot Exam 04/20/2024 Diabetes: Visual Foot Exam 04/20/2024 Influenza Vaccine (Season Ended) 2024 03/04/2020, 11/12/2018, 11/12/2017, Additional history exists Procedures Procedure Name Priority Date/Time Associated Diagnosis Comments IMMUNO CHEMISTRY Routine 05/28/2024 CHEMISTRY Routine 05/28/2024 CHEMISTRY Routine 05/28/2024 HEMATOLOGY Routine 05/28/2024 CHEMISTRY Routine 05/26/2024 [facility] RESULTS Routine 05/21/2024 HD KINETICS Routine 05/21/2024 POST CHEMISTRY Routine 05/21/2024 CHEMISTRY Routine 05/21/2024 HEMATOLOGY Routine 05/21/2024 CHEMISTRY Routine 05/19/2024 [facility] RESULTS Routine 05/14/2024 HD KINETICS Routine 05/14/2024 POST CHEMISTRY Routine 05/14/2024 CHEMISTRY Routine 05/14/2024 HEMATOLOGY Routine 05/14/2024 CHEMISTRY Routine 05/12/2024 CHEMISTRY Routine 05/07/2024 HEMATOLOGY Routine 05/07/2024 CHEMISTRY Routine 05/05/2024 URINE CLEARANCE Routine 04/28/2024 CHEMISTRY Routine 04/28/2024 CHEMISTRY Routine 04/28/2024 PATIENT INFORMATION Routine 04/28/2024 PATIENT INFORMATION Routine 04/28/2024 IMMUNO CHEMISTRY Routine 04/25/2024 CHEMISTRY Routine 04/25/2024 HEMATOLOGY Routine 04/25/2024 CHEMISTRY Routine 04/25/2024 HEMATOLOGY Routine 04/23/2024 CHEMISTRY Routine 04/23/2024 [facility] RESULTS Routine 04/22/2024 HD KINETICS Routine 04/22/2024 POST CHEMISTRY Routine 04/22/2024 CHEMISTRY Routine 04/22/2024 HEMATOLOGY Routine 04/22/2024 CHEMISTRY Routine 03/24/2024 [facility] RESULTS Routine 03/21/2024 HD KINETICS Routine 03/21/2024 CHEMISTRY Routine 03/21/2024 HEMATOLOGY Routine 03/21/2024 POST CHEMISTRY Routine 03/21/2024 CHEMISTRY Routine 03/17/2024 CHEMISTRY Routine 03/14/2024 HEMATOLOGY Routine 03/14/2024 BLOOD CULTURE Routine 03/14/2024 CULTURE,BLOOD-2ND SET Routine 03/14/2024 CHEMISTRY Routine 03/05/2024 HEMATOLOGY Routine 03/05/2024 C DIFFICILE ANTIGEN AND TOXIN Routine 03/05/2024 from Last 3 Months Results * IMMUNO CHEMISTRY (05/28/2024) Only the most recent of2 resultswithin the time period is included. Hep B Surface Ag Negative Negative [facility] 05/28/2024 05/29/2024 9:2 1 AM EDT Narrative Resulting Agency Comment Specimen source: Serum Casey Maier MD LAB BLOOD ORDERABLES Final Result [facility] See order comments or contact performing lab Unknown, [place] * (ABNORMAL) HEMATOLOGY (05/28/2024) Only the most recent of10 resultswithin the time period is included. WBC 20.42(H) 4.80 - 10.80 1000/mcL [facility] RBC 3.37(L) 4.70 - 6.10 mill/mcL [facility] Hematocrit 35.8(L) 42.0 - 52.0 % [facility] MCV 106(H) 80 - 100 fl [facility] MCH 31.6(H) 27.0 - 31.0 pg [facility] MCHC 29.8(L) 30.0 - 36.0 g/dL [facility] RDW 16.5(H) 11.5 - 14.5 % [facility] Hemoglobin 10.6(L) 14.0 - 18.0 g/dL [facility] Hemoglobin x 3 31.8(L) 42.0 - 54.0 % [facility] Reticulocyte Hemoglobin 29.2 25.4 - 31.8 pg [facility] 05/28/2024 05/29/2024 8:4 8 AM EDT Narrative [facility] - 05/29/2024 Unless otherwise specified, test(s) performed at: [facility], [address] [place] [id number] BUSINESS DEVELOPMENT MANAGER: Aman De La Rosa M.D. For any questions, please call customer service at FREQUENCY:MONTHLY Resulting Agency Comment Specimen source: Blood Yohannes Jane MD LAB BLOOD ORDERABLES Final Re sult [facility] See order comments or contact performing lab Unknown, [place] * (ABNORMAL) [facility] (05/28/2024) Only the most recent of20 resultswithin the time period is included. Creatinine 3.94(H) 0.60 - 1.30 mg/dL [facility] Chloride 102 96 - 108 mEq/L [facility] Calcium 7.1(L) 8.4 - 10.2 mg/dL [facility] Corrected Calcium 8.7 8.4 - 10.2 mg/dL [facility] Comment: Corrected Calcium is not equivalent to measured Ionized Calcium. Phosphorus 3.7 2.6 - 4.5 mg/dL [facility] Calcium Phosphorus Product 26 0 - 54 [facility] Calcium Phosporus Product, Cor 32 0 - 54 [facility] Alkaline Phosphatase 76 40 - 129 U/L [facility] ALT (SGPT) 4(L) 7 - 52 U/L [facility] Albumin 2.0(L) 3.5 - 5.2 g/dL [facility] Magnesium 1.6 1.6 - 2.6 mg/dL [facility] Ferritin 651(H) 22 - 322 ng/mL [facility] Iron 21(L) 45 - 160 mcg/dL [facility] UIBC 47(L) 155 - 355 mcg/dL [facility] TIBC 68(L) 185 - 515 mcg/dL [facility] Iron Saturation (TSat) 31 20 - 55 % [facility] 05/28/2024 05/29/2024 9:2 1 AM EDT Narrative [facility] - 05/29/2024 Unless otherwise specified, test(s) performed at: [facility], [address] [place] [id number] BUSINESS DEVELOPMENT MANAGER: Aman De La Rosa M.D. For any questions, please call customer service at FREQUENCY:MONTHLY Resulting Agency Comment Specimen source: Serum Casey Maire MD LAB BLOOD ORDERABLES Final Result [facility] See order comments or contact performing lab Unknown, [place] * HD KINETICS (05/21/2024) Only the most recent of4 resultswithin the time period is included. % Urea Reduction 75 65 - 80 % [facility] 05/21/2024 05/22/2024 8:2 9 AM EDT Narrative Resulting Agency Comment Specimen source: Plasma Casey Maier MD LAB BLOOD ORDERABLES Final Result Performing Organization Address [facility] de Phone Number [facility] See order comments or contact performing lab Unknown, [place] * POST CHEMISTRY (05/21/2024) Only the most recent of4 resultswithin the time period is included. Pathologist [facility] BUN Post Dialysis 6 6 - 19 mg/dL [facility] 05/21/2024 05/22/2024 8:2 9 AM EDT Narrative [facility] - 05/22/2024 Unless otherwise specified, test(s) performed at: [facility], [address] [place] [address] BUSINESS DEVELOPMENT MANAGER: Aman De La Rosa M.D. For any questions, please call customer service at FREQUENCY:OTHER Resulting Agency Comment Specimen source: Plasma Casey Maier MD LAB BLOOD ORDERABLES Final Result Performing Organization Address [facility] de Phone Number [facility] See order comments or contact performing lab Unknown, [place] * [facility] Results (05/21/2024) Only the most recent of4 resultswithin the time period is included. Pathologist [facility] eNPCR 0.57 [facility] WSTDKT/V 3.0 [facility] spKt/V Got 1.73 [facility] sp[facility]t/V (Daugirdas II) 1.66 [facility] eKt/V Gotch 1.42 [facility] eKdrt/V 1.68 [facility] nPCR_HD 0.61 [facility] eKt/V ([place]all) 1.39 [facility] PCR 30.66 [facility] 05/21/2024 05/21/2024 [facility] Ordering Provider LAB BLOOD ORDERABLES Final Result [facility] Contact Performing lab Unknown, [place] * (ABNORMAL) URINE CLEARANCE (04/28/2024) Pathologist [facility] Urea Nitrogen, Urine Timed 211 mg/dL [facility] Urea Nitrogen, Urine 24 Hr 0.6(L) 12.0 - 20.0 g/24 hr [facility] Urea Clearance, Urine 1.5(L) 64.0 - 99.0 mL/min [facility] Creatinine, Urine Timed 78.8 mg/dL [facility] Creatinine, 24H Ur 0.2(L) 0.7 - 1.8 g/24 hr [facility] Creatinine Clear, Urine 4.4 mL/min [facility] Creat Clear, Urine Norm 4.3(L) 94.0 - 122.0 mL/min [facility] 04/28/2024 04/30/2024 11: 24 AM EDT Narrative [facility] - 04/30/2024 Unless otherwise specified, test(s) performed at: [facility], [address] [place] [address] BUSINESS DEVELOPMENT MANAGER: Aman De La Rosa M.D. For any questions, please call customer service at FREQUENCY:OTHER Resulting Agency Comment Specimen source: Urine Casey Maier MD LAB URINE ORDERABLES Final Result [facility] See order comments or contact performing lab Unknown, [place] * PATIENT INFORMATION (04/28/2024) Only the most recent of2 resultswithin the time period is included. Pathologist [facility] Patient BSA 1.78 sq. M. [facility] Comment: Normalized values are calculated using the patient's actual BSA and normalized to the average BSA of 1.73m2. 04/28/2024 04/30/2024 9:3 2 AM EDT Narrative [facility] - 04/30/2024 Unless otherwise specified, test(s) performed at: [facility], [address] [place] [address] BUSINESS DEVELOPMENT MANAGER: Aman De La Rosa M.D. For any questions, please call customer service at FREQUENCY:OTHER Resulting Agency Comment Specimen source: PD Fluid Casey Maier MD LAB BLOOD ORDERABLES Final Result Performing Organization Address [facility] de Phone Number [facility] See order comments or contact performing lab Unknown, [place] * Blood culture (03/14/2024) Culture Result See below [facility] Comment: No Aerobic or Anaerobic Growth after 5 Days of Incubation. 03/14/2024 03/19/2024 7:5 6 AM EST Narrative [facility] - 03/24/2024 Unless otherwise specified, test(s) performed at: [facility], [address] [place], [place] [id number] BUSINESS DEVELOPMENT MANAGER: Aman De La Rosa M.D. For any questions, please call customer service at FREQUENCY:OTHER Resulting Agency Comment Specimen source: Blood/Dialysis Bloodline Casey Maier MD LAB MICROBIOLOGY - GE NERAL ORDERABLES Final Result Performing Organization Address [facility] de Phone Number [facility] See order comments or contact performing lab Unknown, [place] * Blood culture (03/14/2024) Culture, Blood See below [facility] Comment: No Aerobic or Anaerobic Growth after 5 Days of Incubation. 03/14/2024 03/19/2024 7:5 6 AM EST Narrative [facility] - 03/24/2024 Unless otherwise specified, test(s) performed at: [facility], [address] [place] [id number] BUSINESS DEVELOPMENT MANAGER: Aman De La Rosa M.D. For any questions, please call customer service at FREQUENCY:OTHER Resulting Agency Comment Specimen source: Blood/Dialysis Bloodline Casey Maier MD LAB MICROBIOLOGY - GE NERAL ORDERABLES Final Result [facility] See order comments or contact performing lab Unknown, [place] * C DIFFICILE ANTIGEN AND TOXIN (03/05/2024) Antigen Positive Negative [facility] Comment: C. difficile Antigen and Toxin performed by Rapid Membrane Enzyme Immunoassay. C Diff Toxin A/B Positive Negative [facility] 03/05/2024 03/06/2024 8:1 0 AM EST Narrative [facility] - 03/06/2024 Unless otherwise specified, test(s) performed at: [facility] [address] BUSINESS DEVELOPMENT MANAGER: Aman De La Rosa M.D. For any questions, please call customer service at FREQUENCY:OTHER Resulting Agency Comment Specimen source: Stool Casey Maier MD LAB BLOOD ORDERABLES Final Result [facility] See order comments or contact performing lab Unknown, [place] from Last 3 Months Insurance [facility] [employer] 1,2,3 (VACCN) [facility] 1,2,3 (VACCN) [facility] [employer] 1,2,3 (VACCN) Care Teams Sculpture Conservator Relationship Specialty Start Date End Date Joao Duncan MD [address] [place] [address] PCP - General Internal Medicine 12/20/22
--- OUTSIDE RECORDS SUMMARY | 2024-06-02 10:11 | XMS_ITS | Encounter Summary ---
Author Organization [facility], Address [address] [place] [address] Phone Care Team Providers Care Pulp Bleacher Name Role Phone Joao Duncan MD Primary Care Provider [phone] Encounter Details Date Type Department Care Team (Late st Contact Info) Description 05/28/2024 Orders Only [facility] [address] [place] [address] Yohannes Jane MD [address] [place] [address] [place] [phone] Social History Tobacco Use Types Packs/Day Years Used Date Smoking Tobacco: Never Smokeless Tobacco: Never Alcohol Use Standard Drinks/Week Comments Not Currently [...] Associated Diagnosis Comments IMMUNO CHEMISTRY Routine 05/28/2024 HEMATOLOGY Routine 05/28/2024 CHEMISTRY Routine 05/28/2024 CHEMISTRY Routine 05/28/2024 documented in this encounter Results * IMMUNO CHEMISTRY (05/28/2024) Hep B Surface Ag Negative Negative [facility] 05/28/2024 05/29/2024 9:2 1 AM EDT Narrative Resulting Agency Comment Specimen source: Serum Casey Maier MD LAB BLOOD ORDERABLES Final Result [facility] [employer] [facility] See order comments or contact performing lab Unknown, [place] * (ABNORMAL) [facility] Chemistry (05/28/2024) Creatinine 3.94(H) 0.60 - 1.30 mg/dL [facility] [...] 05/29/2024 Unless otherwise specified, test(s) performed at: [facility], [address] [place] [id number] ASSET PROTECTION PROFESSIONAL: Aman De La Rosa M.D. For any questions, please call customer service at FREQUENCY:MONTHLY Resulting Agency Comment Specimen source: Serum Casey Maier MD LAB BLOOD ORDERABLES Final Result [facility] See order comments or contact performing lab Unknown, [place] * (ABNORMAL) [facility] (05/28/2024) Pathologist [facility] PTH 83(H) 16 - 80 pg/mL [facility] 05/28/2024 05/29/2024 8:4 5 AM EDT Narrative [facility] - 05/29/2024 Unless otherwise specified, test(s) performed at: [facility], [address] [place], [place] [id number] ASSET PROTECTION PROFESSIONAL: Aman De La Rosa M.D. For any questions, please call customer service at FREQUENCY:MONTHLY Resulting Agency Comment Specimen source: Plasma Casey Maier MD LAB BLOOD ORDERABLES Final Result [facility] See order comments or contact performing lab Unknown, [place] * (ABNORMAL) HEMATOLOGY (05/28/2024) Pathologist [facility] WBC 20.42(H) 4.80 - 10.80 1000/mcL [facility] [...] 05/29/2024 Unless otherwise specified, test(s) performed at: [facility], [address] [place] [id number] ASSET PROTECTION PROFESSIONAL: Aman De La Rosa M.D. For any questions, please call customer service at FREQUENCY:MONTHLY Resulting Agency Comment Specimen source: Blood us Yohannes Jane MD LAB BLOOD ORDERABLES Final Re sult [facility] See order comments or contact performing lab Unknown, [place] documented in this encounter Visit Diagnoses Not on filedocumented in this encounter Care Teams Pulp Bleacher Relationship Specialty Start Date End Date Joao Duncan MD [address] [place] [address] PCP - General Internal Medicine 12/20/22 documented as of this encounter
--- NOTE | 2024-06-02 10:21 | ED_ITS ---
HPI - General Adult General Chief complaint: General Medical Stated complaint: PAIN @KIDNEY DRAIN SITE,DIALYSIS DEPENDANT PER EMS Time Seen by Provider: 06/02/24 10:05 Source: patient and EMS Mode of arrival: EMS History of Present Illness HPI narrative: This is 78 years old the patient with end stage renal disease on hemodialysis Sunday and Sunday, history of right nephrostomy tube on April 03 presented to the emergency department sent for evaluation of possible urinary tract infection because of the urine of the right nephrostomy tube were cloudy. He denies any fever or chills. He was due for dialysis today. Onset (ago): hour(s) (2) Radiation: non-radiation Severity: mild Pain Consistency: constant Relieving factors: none Exacerbating factors: none Related Data Home Medications ?Medication ?Instructions ?Recorded ?Confirmed clindamycin phosphate 1 % lotion 1 appl topical BID PRN Acne 03/08/24 03/25/24 clobetasol 0.05 % topical cream 1 appl topical BID PRN itching/rash 03/08/24 03/25/24 pramoxine 1 % lotion 1 appl topical BID PRN Itching 03/08/24 03/25/24 Previous Rx's ?Medication ?Instructions ?Recorded ascorbic acid (vitamin C) 500 mg 250 mg (1/2 x 500 mg) PO BID #60 04/23/23 tablet (Vitamin C) tabs ferrous sulfate 325 mg (65 mg 325 mg PO BID #60 tabs 04/23/23 iron) tablet amiodarone 200 mg tablet 200 mg PO DAILY #90 tabs 08/13/23 walker #1 ea 11/29/23 cholestyramine (with sugar) 4 gram 0.5 ea PO BIDWM #60 ea 04/18/24 powder for susp in a packet melatonin 3 mg tablet 6 mg (2 x 3 mg) PO BEDTIME PRN 04/18/24 Insomnia #60 tabs metoprolol tartrate 25 mg tablet 25 mg PO BID #60 tabs 04/18/24 vancomycin 125 mg capsule See Rx Instructions .Route 04/18/24 .COMPLEX #60 caps Allergies Allergy/AdvReac Type Severity Reaction Status Date / Time No Known Allergies [NKA] Allergy Mild NOT Verified 06/02/24 09:42 APPLICABLE Review of Systems 2 Constitutional: Constitutional: Denies fever(s) and Denies night sweats Gastrointestinal: Gastrointestinal: Reports no additional gastrointestinal complaints [facility] Past Medical History [facility] Narrative: End-stage renal disease, colon cancer, Klebsiella sepsis for which he was hospitalized and discharged on April 18 Medical History Ileus C. difficile colitis Acute renal failure BPH (benign prostatic hyperplasia) Sinus bradycardia Recto-vesical fistula End stage renal disease Sick sinus syndrome Postoperative hematoma involving digestive system following digestive system procedure Aftercare following left shoulder joint replacement surgery Pacemaker OA (osteoarthritis) Borderline hyperlipidemia Obesity HTN (hypertension) EtOH dependence Mild cognitive impairment Inhibited sex excitement Atrial fibrillation Cancer of kidney High cholesterol Hypertension Surgical History Rectal carcinoma Malignant neoplasm of rectum Rectal mass Encounter for interrogation of cardiac pacemaker Atrial fibrillation with rapid ventricular response Family History Family History Mother Heart problem Social History Social History Household Members: Significant Other Housing: House Do you presently have visiting nurse or other home services: No Alcohol intake: unknown Comment: PATIENT BEDBOUND AT THIS TIME Patient Tobacco Use Status: Former Tobacco user Tobacco use type: Cigarette Smoked in Last 30 Days: No e-Cigarette/Vaping Use: Never Used Use of substances other than those prescribed or required for medical reasons: No Advance Directives: Yes Advance Directives on File: Yes Advance Directives Date on File: 11/29/22 Do you have a plan to hurt others: No Plan service: Yes Physical Exam ED Vital Signs: Vital Signs - 24 hr 06/02/24 09:39 06/02/24 10:00 06/02/24 12:40 Temperature 97.7 F 97.7 F 97.6 F Pulse Rate 89 87 80 Respiratory Rate 18 17 14 Blood Pressure 118/72 118/72 133/66 Pulse Oximetry 98 Oxygen Delivery Method Room Air Room Air BMI result Body Mass Index 18.7 He looks well is not toxic-appearing he is afebrile normotensive Const General: cooperative Nutritional Appearance: well nourished Orientation/consciousness: patient oriented x3 Limitations: no limitations HENMT Head: Yes normal to inspection General nose exam: Normal external nose present Mouth: Normal oral and palatal mucosa present Neck Neck: Yes normal visual inspection Resp Effort & Inspection: normal respiratory effort Auscultation: clear to auscultation bilaterally Cardio Jugular venous distension: no JVD Rate: regular rate Rhythm: regular rhythm GI Other: Abdomen is soft he has a right nephrostomy tube Inspection: Yes normal to inspection Palpation (GI): Soft to palpation Percussion: Yes normal to percussion General: Yes no CVA tenderness Back/Spine/Pelvis Back: no CVA tenderness Skin General skin exam: no rashes or lesions noted Neuro General: patient oriented x3 Extrem General: Yes normal to inspection Course Reevaluation(s) Reevaluation #1: Workup completed the patient has root colitis by CT has a elevated white count also he has a heme-positive stools, he will be admitted to [facility] case was discussed with the hospitalist/nephrology service urology service because of the right nephrostomy tube spoke also with the his . IV access was established by me under ultrasound cannulated the left basilic vein with a 20 long catheter also cannulated the right basilic vein with a another 20 gauge catheter blood was obtain IV was flushed Time: 13:14 Medications Administered Generic Name Dose Route Start Last Admin Trade Name Freq PRN Reason Stop Dose Admin Lactated Ringer's 1,000 mls @ 500 mls/hr 06/02/24 11:30 06/02/24 11:56 Lr IV 06/02/24 13:29 500 mls/hr .Q2H NILE Administration Metronidazole 500 mg in 100 mls @ 100 mls/hr 06/02/24 12:44 06/02/24 12:50 Flagyl IV 06/02/24 13:43 100 mls/hr ONCE ONE Administration Discontinued Medications Generic Name Dose Route Start Last Admin Trade Name Freq PRN Reason Stop Dose Admin Cefepime HCl 2 gm in 50 mls @ 100 mls/hr 06/02/24 11:26 06/02/24 12:25 Maxipime IV 06/02/24 11:55 Infused ONCE ONE Infusion Procedures EJ/Peripheral Line Arm L: Time Out Performed: Yes Skin Cleansed in Sterile Fashion: Yes Size (gauge): 20 IV Secured and Dressing Applied: Yes Patient Tolerated Procedure: well Additional Comments: under US cannulated left basilic vein ,good flash good blood return Also cannulated rt basilic with 20 G catheter under US Medical Decision Making Medical Decision Making [facility] Narrative: Patient presented to the emergency department with a possible urinary tract infection he has no fever, no tachycardia, he looks well we will check labs including blood culture lactic acid we will get a urine Differential Diagnosis Differential Diagnoses: The differential diagnosis associated with the presentation includes UTI/urine contamination Admission/Observation Consideration of admission/observation: Escalation of care including admission/observation considered Consult Healthcare Provider Management of the patient was discussed with: Hospitalist and Money Position Officer Dr Nam renal Dr Horton Urologist Lab Data [facility] Lab Attestation statement: I reviewed the patient's lab results. 06/02/24 10:33 06/02/24 10:33 Labs: Lab Results 06/02/24 06/02/24 06/02/24 Range/Units 10:33 10:34 10:38 WBC 26.6 H (4.8-10.8) X10*3/uL RBC 3.73 L D (4.60-5.80) X10*6/uL Hgb 11.9 L D (14.0-18.0) g/dl Hct 37.1 L D (42.0-52.0) % MCV 99.5 H (80.0-98.0) fL MCH 31.9 (27.0-33.0) pg MCHC 32.1 (31.0-36.0) g/dl RDW 17.1 H (11.0-16.0) % Plt Count 25 L D (160-400) X10*3/uL MPV Not Reportable Immature Gran % (Auto) Cancelled Neut % (Auto) Cancelled Lymph % (Auto) Cancelled Boyd % (Auto) Cancelled Eos % (Auto) Cancelled Baso % (Auto) Cancelled Lymph # (Auto) Cancelled Boyd # (Auto) Cancelled Eos # (Auto) Cancelled Baso # (Auto) Cancelled Abs Immat Gran (auto) Cancelled Absolute Neuts (auto) Cancelled Absolute Nucleated RBC 0.040 H (0.0-0.012) X10*3/uL Nucleated RBC % (auto) 0.2 (0.0-0.2) /100WBC Neutrophils % (Manual) 92 H (45-73) % Band Neutrophils % 5 (3-5) % Metamyelocytes % 2 % Myelocytes % 1 % Abs Neuts (Manual) 25.8 H (2.0-8.3) X10*3/uL Metamyelocytes # 0.5 X10*3/uL Myelocytes # 0.3 X10*/uL Toxic Vacuolation PRESENT Platelet Estimate DECREASED (NORMAL) Plt Morphology Comment NORMAL RBC Morphology NOTED Polychromasia 1+ (0-2) /OIF Macrocytosis 1+ (5-14) /OIF Millicent Cells 3+ (>5) /OIF Acanthocytes (Spur) 1+ (0-2) /OIF Schistocytes 1+ (0-2) /OIF ESR 2 (0-15) MM/HR Sodium 138 (135-145) mmol/L Potassium 4.1 (3.3-5.1) mmol/L Chloride 102 (96-108) mmol/L Carbon Dioxide 26 (22-29) mmol/L Anion Gap 14 (12-20) BUN 23 H (9-16) mg/dL Creatinine 4.50 H* (0.5-1.4) mg/dL Estim Creat Clear Calc 11.4 Estimated GFR 13 Random Glucose 80 (60-115) mg/dL Lactic Acid 2.8 H* (0.5-2.0) mmol/L Calcium 7.0 L (8.4-10.2) mg/dL Total Bilirubin 0.9 (0.0-1.0) mg/dL AST 27 (5-37) U/L ALT < 6 (0-40) U/L Alkaline Phosphatase 124 H (39-117) U/L C-Reactive Protein 14.34 H (< or = 0.50) mg/dL Total Protein 5.1 L (6.5-8.0) g/dL Albumin 1.9 L (3.5-5.0) g/dL Urine Color BROWN Urine Appearance Turbid Urine pH 7.5 (5.0-9.0) Ur Specific Troy 1.020 (1.005-1.025) Urine Protein 300 (3+) H (Neg-Trace) mg/dL Urine Glucose (UA) Negative (Negative) mg/dL Urine Ketones Trace (Negative) mg/dL Urine Blood Large (3+) H (Negative) Urine Nitrite Positive H (Negative) Ur Leukocyte Esterase Large (3+) H (Negative) Urine RBC 11-20 H (0-2) /HPF Urine WBC >50 H (0-5) /HPF Urine WBC Clumps Present Ur Squamous Epith Cells 0-2 (0-2) /HPF Urine Bacteria 4+ (None Seen) Hyaline Casts 0-2 (0-2) /LPF Stool Occult Blood (NEGATIVE) 06/02/24 Range/Units 10:57 WBC (4.8-10.8) X10*3/uL RBC (4.60-5.80) X10*6/uL Hgb (14.0-18.0) g/dl Hct (42.0-52.0) % MCV (80.0-98.0) fL MCH (27.0-33.0) pg MCHC (31.0-36.0) g/dl RDW (11.0-16.0) % Plt Count (160-400) X10*3/uL MPV Immature Gran % (Auto) Neut % (Auto) Lymph % (Auto) Boyd % (Auto) Eos % (Auto) Baso % (Auto) Lymph # (Auto) Boyd # (Auto) Eos # (Auto) Baso # (Auto) Abs Immat Gran (auto) Absolute Neuts (auto) Absolute Nucleated RBC (0.0-0.012) X10*3/uL Nucleated RBC % (auto) (0.0-0.2) /100WBC Neutrophils % (Manual) (45-73) % Band Neutrophils % (3-5) % Metamyelocytes % % Myelocytes % % Abs Neuts (Manual) (2.0-8.3) X10*3/uL Metamyelocytes # X10*3/uL Myelocytes # X10*/uL Toxic Vacuolation Platelet Estimate (NORMAL) Plt Morphology Comment RBC Morphology Polychromasia /OIF Macrocytosis /OIF Millicent Cells /OIF Acanthocytes (Spur) /OIF Schistocytes /OIF ESR (0-15) MM/HR Sodium (135-145) mmol/L Potassium (3.3-5.1) mmol/L Chloride (96-108) mmol/L Carbon Dioxide (22-29) mmol/L Anion Gap (12-20) BUN (9-16) mg/dL Creatinine (0.5-1.4) mg/dL Estim Creat Clear Calc Estimated GFR Random Glucose (60-115) mg/dL Lactic Acid (0.5-2.0) mmol/L Calcium (8.4-10.2) mg/dL Total Bilirubin (0.0-1.0) mg/dL AST (5-37) U/L ALT (0-40) U/L Alkaline Phosphatase (39-117) U/L C-Reactive Protein (< or = 0.50) mg/dL Total Protein (6.5-8.0) g/dL Albumin (3.5-5.0) g/dL Urine Color Urine Appearance Urine pH (5.0-9.0) Ur Specific Troy (1.005-1.025) Urine Protein (Neg-Trace) mg/dL Urine Glucose (UA) (Negative) mg/dL Urine Ketones (Negative) mg/dL Urine Blood (Negative) Urine Nitrite (Negative) Ur Leukocyte Esterase (Negative) Urine RBC (0-2) /HPF Urine WBC (0-5) /HPF Urine WBC Clumps Ur Squamous Epith Cells (0-2) /HPF Urine Bacteria (None Seen) Hyaline Casts (0-2) /LPF Stool Occult Blood POSITIVE (NEGATIVE) Independent Interpretation I performed an independent interpretation of an: CT Scan Radiology Impression Discussion of test interpretation with radiology: I have reviewed the radiologist's reading. Independent Historian Clinical information obtained from an independent historian. History obtained from or confirmed by: Spouse External Record Review External record reviewed: Inpatient record Critical Care Time Critical Care Time Critical Care Time: Yes Total Critical Care Time: 60 Attestation: Taking care of the patient, speaking with multiple consultants including second vp hr assessment/urologist/hospitalist, speaking in the family Discharge Plan Discharge Clinical Impression: Colitis, Acidosis, lactic Renal failure, chronic Qualifiers: Chronic kidney disease stage: stage 5 (GFR < 15) Qualified Code(s): N18.5 - Chronic kidney disease, stage 5 Patient Disposition: Admitted As Inpatient Print Language: Honduran
--- NOTE | 2024-06-02 10:35 | MHC.EDTECH ---
Blood work was done by HAILEY Lees I helped print the labels for her and sanded to the lab.
[2024-06-02 10:43] LABS: Hematocrit 37.1 % (42.0-52.0); Hemoglobin 11.9 g/dl (14.0-18.0); Mean Corpuscular HGB Conc 32.1 g/dl (31.0-36.0); Mean Corpuscular Hemoglobin 31.9 pg (27.0-33.0); Mean Corpuscular Volume 99.5 fL (80.0-98.0); NRBC Pct Auto 0.2 /100WBC (0.0-0.2); Red Blood Count 3.73 X10*6/uL (4.60-5.80); Red Cell Distribution Width 17.1 % (11.0-16.0); White Blood Count 26.6 X10*3/uL (4.8-10.8)
[2024-06-02 10:44] LABS: Platelet Count 25 X10*3/uL (160-400)
[2024-06-02 10:44] LABS: Appearance Urine Turbid; Color Urine BROWN; Glucose Urine UA Negative (Negative); Leukocyte Esterase Urine Large (3+) (Negative); Nitrite Urine Positive (Negative); PH 7.5 (5.0-9.0); UMIC TRIGGER UACC YES; Urine Blood Large (3+) (Negative); Urine Ketones Trace mg/dL (Negative); Urine Protein 300 (3+) mg/dL (Neg-Trace)
[2024-06-02 10:55] LABS: Bacteria Urine 4+ (None Seen); Squamous Epithelial Cell Urine 0-2 /HPF (0-2); UACC Culture Trigger YES
[2024-06-02 10:56] LABS: Hyaline Casts Urine 0-2 /LPF (0-2); WBC Clumps Urine Present; WBC Urine >50 /HPF (0-5)
--- NOTE | 2024-06-02 10:58 | PC.NURSE ---
pt incontinent of black/mucous/foul smelling stool. pericare performed. guiac obtained/sent to lab. provider notified/aware.
[2024-06-02 11:00] LABS: Band Neutrophils Percent 5 % (3-5); Metamyelocytes Absolute 0.5 X10*3/uL; Metamyelocytes Percent 2 %; Myelocytes Absolute 0.3 X10*/uL; Myelocytes Percent 1 %; Neutrophils Absolute Manual 25.8 X10*3/uL (2.0-8.3); Neutrophils Percent Manual 92 % (45-73)
[2024-06-02 11:02] LABS: Acanthocytes 1+ (0-2) /OIF; Macrocytosis 1+ (5-14) /OIF; Platelet Estimate DECREASED (NORMAL); Platelet Morphology Comment NORMAL; Polychromasia 1+ (0-2) /OIF; RBC Morphology NOTED; Schistocytes 1+ (0-2) /OIF; Toxic Vacuolation PRESENT
[2024-06-02 11:03] LABS: OBS Int Ctl Valid YES; OBS1 POSITIVE (NEGATIVE)
[2024-06-02 11:03] LABS: Burr Cells 3+ (>5) /OIF
[2024-06-02 11:05] LABS: Alanine Aminotransferase < 6 U/L (0-40); Albumin Level 1.9 g/dL (3.5-5.0); Alkaline Phosphatase 124 U/L (39-117); Anion Gap 14 (12-20); Aspartate Amino Transferase 27 U/L (5-37); Bilirubin Total 0.9 mg/dL (0.0-1.0); Blood Urea Nitrogen 23 mg/dL (9-16); C Reactive Protein 14.34 mg/dL (< or = 0.50); Carbon Dioxide 26 mmol/L (22-29); Chloride 102 mmol/L (96-108); Creatinine Clr Calc Pharmacy 11.4; Estimated Glomerular Filt Rate 13; Glucose Random 80 mg/dL (60-115); Potassium 4.1 mmol/L (3.3-5.1); Sodium 138 mmol/L (135-145); Total Protein 5.1 g/dL (6.5-8.0)
[2024-06-02 11:06] LABS: Lactic Acid 2.8 mmol/L (0.5-2.0)
[2024-06-02 11:17] LABS: Erythrocyte Sedimentation Rate 2 MM/HR (0-15)
[2024-06-02] MEDS: cefEPime HCl/D5W 2 GM/50 ML PIGGYBACK IV (11:55)
[2024-06-02] MEDS: Lactated Ringers 1,000 ML 500 ML IV (11:56)
--- NOTE | 2024-06-02 12:00 | PC.NURSE ---
multiple attempts made at obtaining IV access but were unsuccessful. two, 20G ultrasound guided IVs placed by MD. patent/intact. IVF/abx administered per provider order. pending CT to be completed at this time. plan of care ongoing.
[2024-06-02 12:38] LABS: Reflex Lactate? Lactic Acid Added
[2024-06-02 12:40] VITALS: BP 133/66; PULSE 80; RESP 14; TEMP 36.4
--- NOTE | 2024-06-02 12:44 | PC.NURSE ---
pt incontinent of a large amount of black stool. GI/C-diff panel obtained/sent to lab. pericare performed. pt turned/repositioned to comfort. plan of care ongoing. call pate placed within reach.
[2024-06-02] MEDS: metroNIDAZOLE/NS 500 MG/100 ML PIGGYBACK 100 MG IV (12:50)
[2024-06-02] MEDS: vancomycin HCL 1,250 MG in 0.9 % Sodium Chloride 250 ML 166.67 MG IV (13:25)
--- NOTE | 2024-06-02 13:27 | PC.NURSE ---
abx administered per provider order. chest xray being completed at this time. pt seen by admitting provider/aware of plan of care. plan of care ongoing.
--- NOTE | 2024-06-02 13:54 | P.HPHOSP_ITS ---
History of Present Illness Date of Service: 06/02/24 Attending physician on admission: Roxann Horne Chief Complaint: diarrhea 78-year-old male with history of BPH, recurrent C diff colitis, hyperlipidemia, hypertension, history of alcohol use disorder, mild cognitive impairments, sick sinus syndrome s/p pacemaker placement, ESRD on HD MWF, chronic thrombocytopenia for evaluation of diarrhea and perianal burning ongoing for several days. There has been no blood in the diarrhea per patient. No fevers, chills, abdominal pain, nausea, vomiting. Tolerating diet. He is also reporting swelling in the left lower extremity ongoing for 3 days. He also has right-sided nephrostomy tube in place and is reporting burning around the catheter site. Reports this was supposed to be changed but was not. He was recently admitted from 03/25-04/18 with a complicated admission with Klebsiella line infection with septic shock and bacteremia treated with meropenem. He also developed GI bleeding requiring 3 units packed red blood cells. Had a positive C diff face toxin which was likely colonization and recommended by ID to have a p.o. vancomycin taper. He denies any ongoing alcohol use, cigarette smoking, or drug use. He denies any recent antibiotic use (though was on Mirapex item and p.o. vancomycin in the last 2 months). No travel outside of the country or bad foods. No one at home sick with similar symptoms. On review of chart, diarrhea appears chronic with known history of C diff colonization. Also reporting swelling LLE ongoing x 3 days. no sob, cp, palpitations. Compliant with eliquis. In the ED, vitals stable. There is a leukocytosis 26.6. H/H11.9/37.1%. Platelets 25,000. 92% neutrophil predominance with 5% bands. Creatinine 4.5, BUN 23, electrolyte levels normal. Lactic acid 2.8. CRP 14.34, ESR 2. Urinalysis with 3+ leukocytes, positive nitrites, 3+ blood, positive urinary sediment, 4+ bacteria. Stool occult blood positive. C diff PCR and GI panel pending. CT abdomen/pelvis shows right percutaneous nephrostomy catheter in place with air in the collecting system on the right probably iatrogenic infectious process versus fistula. No obstructive uropathy. There is an intermittent exophytic lesion left kidney as well as persistent pleural parenchymal disease on the left, improved on the right. There is also root colitis, proctitis, cystitis, fistulous process can not be excluded given air just below the aortic bifurcation. In the ED has been given IV cefepime, Flagyl, and vancomycin. Review of Systems 2 Review of Systems: Yes all other systems are reviewed and are negative [facility] Medical History (Updated 06/02/24 @ 14:41 by SEBASTIAN Awad) UTI (urinary tract infection) Ileus C. difficile colitis Acute renal failure BPH (benign prostatic hyperplasia) Sinus bradycardia Recto-vesical fistula End stage renal disease Sick sinus syndrome Postoperative hematoma involving digestive system following digestive system procedure Aftercare following left shoulder joint replacement surgery Pacemaker OA (osteoarthritis) Borderline hyperlipidemia Obesity HTN (hypertension) EtOH dependence Mild cognitive impairment Inhibited sex excitement Atrial fibrillation Cancer of kidney High cholesterol Hypertension Family History Mother Heart problem Surgical History Rectal carcinoma Malignant neoplasm of rectum Rectal mass Encounter for interrogation of cardiac pacemaker Atrial fibrillation with rapid ventricular response Social History Household Members: Significant Other Housing: House Do you presently have visiting nurse or other home services: No Alcohol intake: unknown Comment: PATIENT BEDBOUND AT THIS TIME Patient Tobacco Use Status: Former Tobacco user Tobacco use type: Cigarette Smoked in Last 30 Days: No e-Cigarette/Vaping Use: Never Used Use of substances other than those prescribed or required for medical reasons: No Advance Directives: Yes Advance Directives on File: Yes Advance Directives Date on File: 11/29/22 Do you have a plan to hurt others: No Plan Nutrition Risks: No Nutritional Risk service: Yes Meds Allergies Allergy/AdvReac Type Severity Reaction Status Date / Time No Known Allergies [NKA] Allergy Mild NOT Verified 06/02/24 09:42 APPLICABLE Active Medications: Current Medications Acetaminophen (Acetaminophen 325 Mg Tablet) 650 mg PO Q6H PRN PRN Reason: Pain, Mild 1-3,fever,headache Calcium Carbonate (Calcium Carbonate 750 Mg Tab.Chew) 750 mg PO Q4H PRN PRN Reason: Heartburn Vancomycin HCl 1,250 mg/ (Sodium Chloride) 250 mls @ 166.667 mls/hr IV ONCE ONE Stop: 06/02/24 14:32 Last Admin: 06/02/24 13:25 Dose: 166.67 mls/hr Magnesium Hydroxide (Milk Of Magnesia 30 Ml Oral.Susp) 30 ml PO DAILY PRN PRN Reason: Constipation Melatonin (Melatonin 3 Mg Tablet) 6 mg PO BEDTIME PRN PRN Reason: Insomnia Ondansetron HCl (Ondansetron Hcl 4 Mg/2 Ml Vial) 4 mg IVPUSH Q8H PRN PRN Reason: Nausea and Vomiting Sodium Chloride (0.9 % Sodium Chloride Flush 3 Ml Syringe) 3 [facility] Medications ?Medication ?Instructions ?Recorded ?Confirmed ?Last Taken ?Type ammonium lactate 12 % lotion 1 appl topical DAILY PRN Dry Skin 06/02/24 06/02/24 Unknown History apixaban 5 mg tablet (Eliquis) 5 mg PO BID 06/02/24 06/02/24 Unknown History cholestyramine (with sugar) 4 gram 1 ea PO DAILY 06/02/24 06/02/24 Unknown History powder for susp in a packet diltiazem HCl 240 mg 240 mg PO DAILY 06/02/24 06/02/24 Unknown History capsule,extended release 24 hr metoprolol tartrate 25 mg tablet 25 mg PO DAILY 06/02/24 06/02/24 Unknown History pantoprazole 20 mg tablet,delayed 20 mg PO DAILY@0630 06/02/24 06/02/24 Unknown History release vancomycin 125 mg capsule 125 mg PO MOWEFR@0900 06/02/24 06/02/24 Unknown History Physical Exam 2 Vital Signs and Narrative: Vital Signs: Last Vital Signs Temp 97.6 F 06/02/24 12:40 Pulse 80 06/02/24 12:40 Resp 14 06/02/24 12:40 BP 133/66 06/02/24 12:40 Pulse Ox 98 06/02/24 10:00 O2 Del Method Room Air 06/02/24 10:00 BMI result Body Mass Index 18.7 Constitutional - Awake and Alert, No apparent distress Eyes - PERRLA, EOMI Cardiovascular - S1S2, RRR, No edema Respiratory - Normal lung expansion, Normal respiratory effort, No respiratory distress, CTA bilaterally Chest- Right upper chest dialysis catheter in place without any purulent drainage or erythema Gastrointestinal - NT / ND; hyperactive BS, No rebound or guarding - R nephrostomy site without any purulent drainage or significant erythema. Extremities - no calf tenderness bilaterally, or palpable cords. +swelling/3+ edema LLE Musculoskeletal - Normal inspection, normal ROM Skin - Warm/Dry Neurological - Alert & oriented x3 Results Labs 06/02/24 10:33 06/02/24 10:33 Labs: Laboratory Results - last 24 hr 06/02/24 06/02/24 06/02/24 10:33 10:34 10:38 MCV 99.5 H MCH 31.9 MCHC 32.1 RDW 17.1 H Plt Count 25 L D MPV Not Reportable Immature Gran % (Auto) Cancelled Neut % (Auto) Cancelled Lymph % (Auto) Cancelled [place] % (Auto) Cancelled Eos % (Auto) Cancelled Baso % (Auto) Cancelled Lymph # (Auto) Cancelled [place] # (Auto) Cancelled Eos # (Auto) Cancelled Baso # (Auto) Cancelled Abs Immat Gran (auto) Cancelled Absolute Neuts (auto) Cancelled Absolute Nucleated RBC 0.040 H Nucleated RBC % (auto) 0.2 Neutrophils % (Manual) 92 H Band Neutrophils % 5 Metamyelocytes % 2 Myelocytes % 1 Abs Neuts (Manual) 25.8 H Metamyelocytes # 0.5 Myelocytes # 0.3 Toxic Vacuolation PRESENT Platelet Estimate DECREASED Plt Morphology Comment NORMAL RBC Morphology NOTED Polychromasia 1+ (0-2) Macrocytosis 1+ (5-14) [place] Cells 3+ (>5) Acanthocytes (Spur) 1+ (0-2) Schistocytes 1+ (0-2) ESR 2 Anion Gap 14 Estim Creat Clear Calc 11.4 Estimated GFR 13 Random Glucose 80 Lactic Acid 2.8 H* Calcium 7.0 L Total Bilirubin 0.9 AST 27 ALT < 6 Alkaline Phosphatase 124 H C-Reactive Protein 14.34 H Total Protein 5.1 L Albumin 1.9 L Urine Color BROWN Urine Appearance Turbid Urine pH 7.5 Ur Specific [place] 1.020 Urine Protein 300 (3+) H Urine Glucose (UA) Negative Urine Ketones Trace Urine Blood Large (3+) H Urine Nitrite Positive H Ur Leukocyte Esterase Large (3+) H Urine RBC 11-20 H Urine WBC >50 H Urine WBC Clumps Present Ur Squamous Epith Cells 0-2 Urine Bacteria 4+ Hyaline Casts 0-2 Stool Occult Blood 06/02/24 10:57 MCV MCH MCHC RDW Plt Count MPV Immature Gran % (Auto) Neut % (Auto) Lymph % (Auto) [place] % (Auto) Eos % (Auto) Baso % (Auto) Lymph # (Auto) [place] # (Auto) Eos # (Auto) Baso # (Auto) Abs Immat Gran (auto) Absolute Neuts (auto) Absolute Nucleated RBC Nucleated RBC % (auto) Neutrophils % (Manual) Band Neutrophils % Metamyelocytes % Myelocytes % Abs Neuts (Manual) Metamyelocytes # Myelocytes # Toxic Vacuolation Platelet Estimate Plt Morphology Comment RBC Morphology Polychromasia Macrocytosis Millicent Cells Acanthocytes (Spur) Schistocytes ESR Anion Gap Estim Creat Clear Calc Estimated GFR Random Glucose Lactic Acid Calcium Total Bilirubin AST ALT Alkaline Phosphatase C-Reactive Protein Total Protein Albumin Urine Color Urine Appearance Urine pH Ur Specific [place] Urine Protein Urine Glucose (UA) Urine Ketones Urine Blood Urine Nitrite Ur Leukocyte Esterase Urine RBC Urine WBC Urine WBC Clumps Ur Squamous Epith Cells Urine Bacteria Hyaline Casts Stool Occult Blood POSITIVE Assessment and Plan (1) Colitis: Status: Acute (2) Acidosis, lactic: Status: Acute (3) Heme positive stool: Status: Acute Plan 78-year-old male with history of BPH, recurrent C diff colitis, hyperlipidemia, hypertension, history of alcohol use disorder, mild cognitive impairments, sick sinus syndrome s/p pacemaker placement, ESRD on HD MWF, chronic thrombocytopenia admitted for pancolitis and catheter associated UTI Acute pancolitis WBC 26, no other SIRS criteria. No sepsis on admission GI panel and C diff PCR pending IV Zosyn 06/02) Heme positive stool. No anemia Clear liquid diet for bowel rest Follow CBC, cultures Acute UTI Complicated by Right-sided nephrostomy tube. CT Right percutaneous nephrostomy catheter in place air within the collecting system on the right probably iatrogenic infectious process or fistula can not be excluded Urology consult History VRE UTI. IV linezolid (06/02) Follow CBC, cultures LLE swelling/edema venous duplex ordered Recent dialysis catheter line infection Blood cultures 03/28 positive for Klebsiella. Treated with meropenem during last admission IV Zosyn as above Cover with IV linezolid empirically per Nephrology Follow cultures ESRD on HD MWF Nephrology consult. Plan for HD tomorrow Recurrent C diff infection Last C diff PCR positive for C diff toxin B gene Per Dr. German, likely colonization Continues on p.o. 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 Complex hemorrhagic exophytic lesion of the left kidney Dilation of the right pelvis and calyceal system possibly related to blood Plavix versus purulent material versus neoplasm DVT prophylaxis- SCPs Full code Patient requires inpatient stay at least 2 midnights for management of pancolitis and catheter associated UTI with persistent diarrhea requiring IV antibiotics, expert consultation Quality Stroke Does the patient have a stroke diagnosis?: No VTE Prior VTE?: No VTE Risk Level:: Medical - moderate - high VTE Device Contraindication: N/A - Device Ordered VTE Drug Contraindication: Treatment Not Indicated
[2024-06-02 14:10] VITALS: BMI 19.2
--- NOTE | 2024-06-02 14:18 | PHA.MEDREC ---
Pharmacy Consult ? Medication Reconciliation Pharmacy has completed the medication reconciliation. Medication list faxed from [place]. Last Eliquis fill documented as 03/24/24 x 30 days.
--- NOTE | 2024-06-02 15:06 | PC.NURSE ---
+LL DVT result from radiologist received at this time. admitting provider notified/aware.
[2024-06-02 15:11] LABS: CDiff Gene PCR POSITIVE (Negative)
[2024-06-02 15:15] LABS: CDIFF Internal ctrl Dots and bkg OK (V); CDiff Toxin Positive (Negative)
[2024-06-02 15:17] LABS: ~Lactic Acid-LAB USE ONLY 3.1 mmol/L (0.5-2.0)
[2024-06-02 15:20] VITALS: BP 113/46; PULSE 77; RESP 16; TEMP 36.9; O2SAT 96
[2024-06-02] MEDS: vancomycin HCL 125 MG CAPSULE PO ×2 (15:56→21:34)
[2024-06-02] MEDS: 0.9 % Sodium Chloride Flush 3 ML SYRINGE IVFLUSH ×2 (15:57→22:19)
[2024-06-02 16:42] LABS: Reflex Lactate? 2 Y
[2024-06-02 17:27] LABS: Baso%MD 0.4 %; IG%MD 5.1 %; Immature Retic Fraction 25.3 % (2.3-13.4); Lymph%MD 2.3 %; Mono%MD 6.2 %; Retic HGB Equivalent 26.8 pg (30.0-35.0); Reticulocyte Percent 1.6 % (0.5-1.8)
[2024-06-02 17:32] LABS: Lactate Dehydrogenase 575 U/L (118-273)
[2024-06-02] MEDS: Linezolid/D5W 600 MG/300 ML PIGGYBACK 300 MG IV (17:54)
[2024-06-02 18:17] LABS: Fibrinogen 112 MG/DL (259-690); INTERNATIONAL NORM RATIO 1.3 (0.9-1.1); Prothrombin Time 15.2 SEC (10.9-12.4)
[2024-06-02 18:19] LABS: D Dimer High Sensitivity 270 NG/ML
[2024-06-02 19:03] LABS: ~Lactic Acid-LAB USE ONLY 2.5 mmol/L (0.5-2.0)
[2024-06-02 19:17] VITALS: BP 141/63; PULSE 82; RESP 17; TEMP 36.2; O2SAT 98
[2024-06-02 19:18] LABS: Partial Thromboplastin Time 39.9 SEC (26.0-36.8)
[2024-06-02] MEDS: Piperacillin Sodium/Tazobactam 4.5 GM in 0.9 % Sodium Chloride 100 ML IV (21:34)
[2024-06-03] VITALS (7 sets, daily range): BP systolic 101–129; BP diastolic 42–70; PULSE 60–96; RESP 16–18; TEMP 36.1–36.2; O2SAT 97; BMI 19.8
[2024-06-03] MEDS: vancomycin HCL 125 MG CAPSULE PO ×4 (05:59→21:09)
[2024-06-03] MEDS: Linezolid/D5W 600 MG/300 ML PIGGYBACK 300 MG IV ×2 (05:59→17:13)
[2024-06-03] MEDS: Omeprazole 20 MG CAPSULE.DR PO (05:59)
--- NOTE | 2024-06-03 06:59 | P.CNHO_ITS ---
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 [place] [facility] [place] following which he was in a long term for 3 weeks and just got home a few days back. He says he came back to the hospital because of recurrent diarrhea as well as pain at the site of right nephrostomy tube. He says he is unable to sleep at night because of this. He had right nephrostomy tube placed in March 2024 because of disruption of distal right ureter which may have occurred during reversal of colostomy performed at [facility] as per urology. During the prolonged hospitalization in March and April 2024 patient had developed severe thrombocytopenia with platelet counts below 20 K. he also developed GI bleeding requiring 3 units PRBC transfusion. EGD showed gastritis, duodenitis and candidal esophagitis that was treated with Diflucan. 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 His Eliquis was stopped. Thrombocytopenia was felt to be multifactorial, related to sepsis with Klebsiella line infection, use of antibiotics, as well as previous alcohol use, splenomegaly. At the time of discharge his platelet counts had come up to about 85 K. During that same admission he was noted to have obstruction of the right distal ureter and right PCN was placed on 04/08/2024. Patient states that he was never diagnosed with DVT in the past. He noticed swelling of his left leg last week after being home for a few days. He denies any pleuritic chest pain, shortness of breath or cough. Patient initially requested a medical administrator. When video braille coder was obtained he refused braille coder saying that he could get by with Zambian. He was able to speak and understand Zambian. Review of Systems - Constitutional Reports as per [facility] Medical History: Medical History (Last Updated 06/02/24 @ 14:41 by SEBASTIAN Awad) Acute renal failure Aftercare following left shoulder joint replacement surgery Atrial fibrillation Borderline hyperlipidemia BPH (benign prostatic hyperplasia) C. difficile colitis Cancer of kidney End stage renal disease EtOH dependence High cholesterol HTN (hypertension) Hypertension Ileus Inhibited sex excitement Mild cognitive impairment OA (osteoarthritis) Obesity Pacemaker Postoperative hematoma involving digestive system following digestive system procedure Recto-vesical fistula Sick sinus syndrome Sinus bradycardia UTI (urinary tract infection) Family History: Family History (Last Reviewed 06/02/24 @ 14:27 by SEBASTIAN Awad) Mother Heart problem Surgical History: Surgical History (Last Reviewed 06/02/24 @ 14:27 by SEBASTIAN Awad) Atrial fibrillation with rapid ventricular response Encounter for interrogation of cardiac pacemaker Malignant neoplasm of rectum Rectal carcinoma Rectal mass Social History: Social History (Last Reviewed 06/02/24 @ 14:27 by SEBASTIAN Awad) Living Situation History: Household Members: Spouse Housing: House Do you presently have visiting nurse or other home services: Yes Alcohol History Details: 1. How often do you have a drink containing alcohol?: a. Never AUDIT-C Alcohol total score: 0 Currently Displaying Signs/Symptoms of Alcohol Withdrawal: No Tobacco History: Patient Tobacco Use Status: Former Tobacco user Tobacco use type: Cigarette Smoked in Last 30 Days: No e-Cigarette/Vaping Use: Never Used Substance Use History: Use of substances other than those prescribed or required for medical reasons : No Currently Displaying Signs/Symptoms of Drug Intoxication Withdrawal: No Domestic Abuse History: Have you been hit, kicked, punched, or otherwise hurt by someone within the past year? 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 Home Medications and Allergies Current Medications: Current Medications Acetaminophen (Acetaminophen 325 Mg Tablet) 650 mg PO Q6H PRN PRN Reason: Pain, Mild 1-3,fever,headache Amiodarone HCl (Amiodarone Hcl 200 Mg Tablet) 200 mg PO DAILY [facility] Calcium Carbonate (Calcium Carbonate 750 Mg Tab.Chew) 750 mg PO Q4H PRN PRN Reason: Heartburn Cholestyramine Resin (Cholestyramine (With Sugar) 4 Gm Powd.Pack) 4 gm PO DAILY [facility] Diltiazem HCl (Diltiazem Hcl Cd 240 Mg Cap.Er.Deg) 240 mg PO DAILY [facility]; Protocol Linezolid (Zyvox/D5w) 600 mg in 300 mls @ 300 mls/hr IV Q12H [facility] Last Admin: 06/03/24 05:59 Dose: 300 mls/hr Piperacillin Sod/Tazobactam (Sod 4.5 gm/ Sodium Chloride) 100 mls @ 200 mls/hr IV Q12H [facility] Last Infusion: 06/02/24 22:08 Dose: Infused Lactic Acid (Ammonium Lactate 12 % Lotion 226 Gm Bottle) 1 appl TOPICAL DAILY PRN; Protocol PRN Reason: Dry Skin Magnesium Hydroxide (Milk Of Magnesia 30 Ml Oral.Susp) 30 ml PO DAILY PRN PRN Reason: Constipation Melatonin (Melatonin 3 Mg Tablet) 6 mg PO BEDTIME PRN PRN Reason: Insomnia Metoprolol Tartrate (Metoprolol Tartrate 25 Mg Tablet) 25 mg PO DAILY [facility]; Protocol Omeprazole (Omeprazole 20 Mg Capsule.Dr) 20 mg PO DAILY@0630 [facility] Last Admin: 06/03/24 05:59 Dose: 20 mg Ondansetron HCl (Ondansetron Hcl 4 Mg/2 Ml Vial) 4 mg IVPUSH Q8H PRN PRN Reason: Nausea and Vomiting Sodium Chloride (0.9 % Sodium Chloride Flush 3 Ml Syringe) 3 ml IVFLUSH QSHIFT [facility] Last Admin: 06/02/24 22:19 Dose: 3 ml Vancomycin HCl (Vancomycin Hcl 125 Mg Capsule) 125 mg PO Q6H [facility] Last Admin: 06/03/24 05:59 Dose: 125 mg Home Medications ?Medication ?Instructions ?Recorded ?Confirmed ?Type ammonium lactate 12 % lotion 1 appl topical DAILY PRN Dry Skin 06/02/24 06/02/24 History apixaban 5 mg tablet (Eliquis) 5 mg PO BID 06/02/24 06/02/24 History cholestyramine (with sugar) 4 gram 1 ea PO DAILY 06/02/24 06/02/24 History powder for susp in a packet diltiazem HCl 240 mg 240 mg PO DAILY 06/02/24 06/02/24 History capsule,extended release 24 hr metoprolol tartrate 25 mg tablet 25 mg PO DAILY 06/02/24 06/02/24 History pantoprazole 20 mg tablet,delayed 20 mg PO DAILY@0630 06/02/24 06/02/24 History release vancomycin 125 mg capsule 125 mg PO MOWEFR@0900 06/02/24 06/02/24 History Allergies Allergy/AdvReac Type Severity Reaction Status Date / Time No Known Allergies [NKA] Allergy Mild NOT Verified 06/02/24 09:42 APPLICABLE Physical Exam Vital signs: Vital Signs Temp 97.2 F 06/03/24 04:00 Pulse 80 06/03/24 04:00 Resp 18 06/03/24 04:00 BP 120/70 06/03/24 04:00 Pulse Ox 97 06/03/24 04:00 O2 Del Method Room Air 06/03/24 04:00 Intake & Output 06/02/24 06/02/24 06/03/24 06:59 18:59 06:59 Intake Total 1700 / 2240 540 / 2240 Output Total Balance 1675 / 2215 540 / 2215 Urine Output (Average ml/kg/hr) 0.03 0.03 Intake: Intake, Oral Amount 440 / 440 Intake, IV Amount 1700 / 1800 100 / 1800 Lactated Ringers 1,000 ml @ 500 1000 / 1000 mls/hr IV .Q2H [facility] Rx#: [id number] Linezolid/D5W 600 mg In 300 ml 300 / 300 @ 300 mls/hr IV Q12H [facility] Rx#: [id number] Piperacillin Sodium/Tazobactam 100 / 100 4.5 gm In 0.9 % Sodium Chloride 100 ml @ 200 mls/hr IV Q12H [facility] Rx#:[id number] cefEPime HCl/D5W 2 gm In 50 ml 50 / 50 @ 100 mls/hr IV ONCE ONE Rx#: [id number] metroNIDAZOLE/NS 500 mg In 100 100 / 100 ml @ 100 mls/hr IV ONCE ONE Rx# :[id number] vancomycin HCL 1,250 mg In 0.9 250 / 250 % Sodium Chloride 250 ml @ 166. 667 mls/hr IV ONCE ONE Rx#: [id number] Output: Output, Urine Amount Other: Number of Bowel Movements 5 Last Bowel Movement 06/02/24 06/02/24 Stool Bedside Commode Stool Amount Small Stool Color Black ([place]) Stool Consistency Liquid Weight 60.8 kg [place] Weight in Grams [id number] Weight 60.8 kg - Constitutional Present: no acute distress, average body habitus, chronically ill appearing - Routine HEENT Exam Head: Present: normal inspection Eye: Present: EOMI, PERRL - Routine Neck Exam Present: supple. Absent: lymphadenopathy - Routine Respiratory Exam Present: CTAB - Routine Cardiovascular Exam Cardiovascular: Present: S1, S2 - Routine Abdominal Exam Present: soft - Routine Extremities Exam Present: pedal edema - Routine Skin Exam Present: intact Hem/Onc Consult Result - Labs CBC & Chem 7: 06/02/24 10:33 06/02/24 10:33 Labs: Short CBC 06/02/24 Range/Units 10:33 WBC 26.6 H (4.8-10.8) X10*3/uL Hgb 11.9 L D (14.0-18.0) g/dl Hct 37.1 L D (42.0-52.0) % Plt Count 25 L D (160-400) X10*3/uL BMP 06/02/24 10:33 Sodium 138 Potassium 4.1 Chloride 102 Carbon Dioxide 26 BUN 23 H Creatinine 4.50 H* Calcium 7.0 L Liver Function 06/02/24 Range/Units 10:33 Total Bilirubin 0.9 (0.0-1.0) mg/dL AST 27 (5-37) U/L ALT < 6 (0-40) U/L Alkaline Phosphatase 124 H (39-117) U/L Albumin 1.9 L (3.5-5.0) g/dL Urine 06/02/24 Range/Units 10:38 Urine Color BROWN Urine Appearance Turbid Urine pH 7.5 (5.0-9.0) Ur Specific [place] 1.020 (1.005-1.025) Urine Protein 300 (3+) H (Neg-Trace) mg/dL Urine Glucose (UA) Negative (Negative) mg/dL Assessment and Plan Patient Active problem list reviewed?: Yes (1) Left leg DVT Status: Acute Assessment and plan: 1. This is a 78-year-old male with multiple medical problems and complicated medical history who is now admitted for recurrent C diff colitis and left lower extremity DVT. Left lower extremity ultrasound showed extensive DVT extending from calf veins into popliteal, femoral and proximal deep femoral and common femoral veins. CT abdomen/pelvis without contrast shows right percutaneous nephrostomy catheter in place, air in the collecting system, probably iatrogenic, infectious or fistula. Indeterminate exophytic lesion of left kidney. Ward colitis with indeterminate soft tissue density with air just below aortic bifurcation, fistulous process can not be excluded. He noticed swelling in his left leg since 05/31/2024. He says he was not taking Eliquis since he left the hospital on April 18. Unfortunately he has developed recurrent thrombocytopenia with platelet counts of 25 K. he has leukocytosis with WBC count of 26.6 with toxic vacuolation, hemoglobin returned to his baseline of 11.9 gram/dL. He is afebrile, blood and urine cultures are pending. He has been started on Zosyn, linezolid, vancomycin and Flagyl. Cause of DVT is probably prolonged hospitalization for over a month and not being on anticoagulation/prophylaxis. Heparin induced thrombocytopenia is also in the differential as he has had ongoing exposure to heparin during dialysis and he has had greater than 50% drop in platelet counts since April. However it is difficult to ascertain the timeline and exposure to heparin. This could also explain thrombosis. HIT assay is pending. Cause of drop in platelet count could also be DIC because of sepsis. He has mild elevation of PT/PTT and decline in fibrinogen level. For his left lower extremity DVT, anticoagulation is needed. If platelet counts come at least above 30,000, he could be started on low-dose anticoagulation with argatroban until HIT assay comes back. Coagulation tests including fibrinogen level has to be monitored closely as he is at high-risk of bleeding. Obtain vascular consultation for recommendation of IVC filter placement. He will need monitoring of blood counts closely. Overall prognosis is guarded given the complex medical issues. Thanks, will follow with you. - Time Spent With Patient Time Spent with Patient (in minutes): 30
[2024-06-03 09:24] LABS: Adenovirus F 40/41 Not Detected (Not Detect.); Astrovirus Not Detected (Not Detect.); Campylobacter Not Detected (Not Detect.); Cryptosporidium Not Detected (Not Detect.); Cyclospora cayetanensis Not Detected (Not Detect.); E. coli EAEC Not Detected (Not Detect.); E. coli EPEC Detected (Not Detect.); E. coli ETEC Not Detected (Not Detect.); E. coli STEC Not Detected (Not Detect.); Entamoeba histolytica Not Detected (Not Detect.); Giardia lamblia Not Detected (Not Detect.); Norovirus GI/GII Not Detected (Not Detect.); Plesiomonas shigelloides Not Detected (Not Detect.); Rotavirus A Not Detected (Not Detect.); Salmonella Not Detected (Not Detect.); Sapovirus Not Detected (Not Detect.); Shigella sp./EIEC Not Detected (Not Detect.); Vibrio Not Detected (Not Detect.); Vibrio Cholerae Not Detected (Not Detect.); Yersinia enterocolitica Not Detected (Not Detect.)
--- NOTE | 2024-06-03 09:36 | MHC.CM.PN ---
Addendum entered by Saadia Tomlin RN 06/03/24 09:39: HCP on file and verified. PCP Joao Duncan MD @ [facility] Original Note: CM assessment completed w/ , patient off unit. Patient lives at home w/ . Recently dc'd from STR @ [facility]. Ambulates w/ walker. assists w/ all ADL's. HD @ [facility] M/W/F. [place] coordinates [facility]. [facility] (wound care, management of nephrostomy rube) DP: Goal is home, resume services. BLS transport. CM will continue to follow.
[2024-06-03 09:44] LABS: Hematocrit 34.9 % (42.0-52.0); Hemoglobin 11.4 g/dl (14.0-18.0); Mean Corpuscular HGB Conc 32.7 g/dl (31.0-36.0); Mean Corpuscular Hemoglobin 31.8 pg (27.0-33.0); Mean Corpuscular Volume 97.2 fL (80.0-98.0); NRBC Pct Auto 0.4 /100WBC (0.0-0.2); Red Blood Count 3.59 X10*6/uL (4.60-5.80); Red Cell Distribution Width 17.2 % (11.0-16.0)
--- NOTE | 2024-06-03 09:44 | P.CONGS_ITS ---
<Statement entered by Carson Potts MD - 06/03/24 13:58> I have seen and evaluated the patient and agree with history, findings, assessment and plan documented by Bridgette Gomez PA-c. In short patient with a DVT with inability to anticoagulate secondary to thrombocytopenia. Case discussed with the hospitalist team and oncologist. He will be transfused a unit of platelets. We will schedule for IVC filter placement. Risks benefits complications of the procedure were discussed in detail with the patient with osd clerk present. Agreed to proceed. We will schedule for tomorrow morning. Thank you for allowing us to assist in his care. History of Present Illness Consult details Consult date: 06/03/24 Narrative: We were consulted on Mehran, a mostly Lithuanian speaking 78yo male patient, for findings of an extensive DVT. He presented to the ER on 06/02 with concerns of a possible UTI/pain at the site of his nephrostomy tube. He also had some diarrhea. He has a medical hx pertinent for ESRD on HD M/W/F, [place]rostomy tube placement [place] [facility] [place] C diff colitis, SSS with pacemaker, OA, HTN, HLD, rectal carcinoma, ETOH dependence, and AFib. He recently was admitted from 03/25-04/18 with Klebsiella infection with septic shock and bacteremia as well as GIB requiring 3u pRBCs and Cdiff colitis. He was discharged to a SNF and just recently returned home. He continues on oral Vanco 3/week for Cdiff colitis. He was admitted for colitis and lactic acidosis; he did have a WC of 26 but no other SIRS criteria for sepsis. He was found to have an extensive DVT on venous duplex US, ordered due to left lower extremity swelling. He remains on IV Zosyn and Linezolid. He was found in the dialysis center this morning; he did not have dialysis yesterday. He denies any left lower extremity pain or redness; he does state it is more swollen. He was on Eliquis, which has been held due to thrombocytopenia. He denies shortness of breath, diff breathing, and CP. The pt denies any injuries/wounds to his left lower extremity. His only complaint this morning is pain at the site of the right nephrostomy tube. Review of Systems 2 Constitutional: Constitutional: Reports as per HPI and Denies weakness ENT: Reports Normal hearing present and Denies dizziness Cardiovascular: Cardiovascular: Reports as per HPI, Denies chest pain, Denies chest pain at rest, Denies chest pain with activity, Denies dyspnea and Denies dyspnea on exertion Respiratory: Respiratory: Reports as per HPI, Denies cough, Denies dyspnea and Denies dyspnea on exertion Gastrointestinal: Gastrointestinal: Reports as per HPI, Denies abdominal pain, Denies nausea and Denies vomiting Musculoskeletal: Musculoskeletal: Denies numbness Integumentary/Breasts: Skin/Breast: Reports as per HPI, Denies erythema and Denies wounds Neurologic: Reports Normal hearing present, Denies dizziness, Denies numbness, Denies Sensory deficit (Neuro) and Denies weakness Psychiatric: Psychiatric: Reports no additional psychiatric complaints Endocrine: Endocrine: Reports no additional endocrine complaints [facility] [place] Past Medical History Medical History (Updated 06/03/24 @ 09:58 by Bridgette Gomez PA-C) UTI (urinary tract infection) Ileus C. difficile colitis Acute renal failure BPH (benign prostatic hyperplasia) Sinus bradycardia Recto-vesical fistula End stage renal disease Sick sinus syndrome Postoperative hematoma involving digestive system following digestive system procedure Aftercare following left shoulder joint replacement surgery Pacemaker OA (osteoarthritis) Borderline hyperlipidemia Obesity HTN (hypertension) EtOH dependence Mild cognitive impairment Inhibited sex excitement Atrial fibrillation Cancer of kidney High cholesterol Hypertension Family History Family History Mother Heart problem Surgical History Surgical History Rectal carcinoma Malignant neoplasm of rectum Rectal mass Encounter for interrogation of cardiac pacemaker Atrial fibrillation with rapid ventricular response Social History Social History Household Members: Spouse Housing: House Do you presently have visiting nurse or other home services: Yes Alcohol intake: unknown Comment: PATIENT BEDBOUND AT THIS TIME Patient Tobacco Use Status: Former Tobacco user Tobacco use type: Cigarette Smoked in Last 30 Days: No e-Cigarette/Vaping Use: Never Used Use of substances other than those prescribed or required for medical reasons: No Currently Displaying Signs/Symptoms of Drug Intoxication Withdrawal: No Have you been hit, kicked, punched, or otherwise hurt by someone within the past year? If so, by whom?: No Do you feel safe in your current relationship?: Yes Is there a partner from a previous relationship who is making you feel unsafe now?: No Are you made to feel afraid or neglected: No Advance Directives: Yes Advance Directives on File: Yes Advance Directives Date on File: 11/29/22 Do you have a plan to hurt others: No Plan Recently lost weight without trying: Yes How much weight loss: 14-23 pounds Eating poorly because of decreased appetite: No Nutrition screen score: 4 Nutrition Risks: No Nutritional Risk service: No Meds Allergies Allergy/AdvReac Type Severity Reaction Status Date / Time No Known Allergies [NKA] Allergy Mild NOT Verified 06/02/24 09:42 APPLICABLE Active Medications: Current Medications Acetaminophen (Acetaminophen 325 Mg Tablet) 650 mg PO Q6H PRN PRN Reason: Pain, Mild 1-3,fever,headache Amiodarone HCl (Amiodarone Hcl 200 Mg Tablet) 200 mg PO DAILY NILE Calcium Carbonate (Calcium Carbonate 750 Mg Tab.Chew) 750 mg PO Q4H PRN PRN Reason: Heartburn Cholestyramine Resin (Cholestyramine (With Sugar) 4 Gm Powd.Pack) 4 gm PO DAILY NILE Diltiazem HCl (Diltiazem Hcl Cd 240 Mg Cap.Er.Deg) 240 mg PO DAILY NILE; Protocol Linezolid (Zyvox/D5w) 600 mg in 300 mls @ 300 mls/hr IV Q12H [facility] Last Infusion: 06/03/24 07:54 Dose: Infused Piperacillin Sod/Tazobactam (Sod 4.5 gm/ Sodium Chloride) 100 mls @ 200 mls/hr IV Q12H [facility] Last Infusion: 06/02/24 22:08 Dose: Infused Lactic Acid (Ammonium Lactate 12 % Lotion 226 Gm Bottle) 1 appl TOPICAL DAILY PRN; Protocol PRN Reason: Dry Skin Magnesium Hydroxide (Milk Of Magnesia 30 Ml Oral.Susp) 30 ml PO DAILY PRN PRN Reason: Constipation Melatonin (Melatonin 3 Mg Tablet) 6 mg PO BEDTIME PRN PRN Reason: Insomnia Metoprolol Tartrate (Metoprolol Tartrate 25 Mg Tablet) 25 mg PO DAILY [facility]; Protocol Omeprazole (Omeprazole 20 Mg Capsule.Dr) 20 mg PO DAILY@0630 [facility] Last Admin: 06/03/24 05:59 Dose: 20 mg Ondansetron HCl (Ondansetron Hcl 4 Mg/2 Ml Vial) 4 mg IVPUSH Q8H PRN PRN Reason: Nausea and Vomiting Sodium Chloride (0.9 % Sodium Chloride Flush 3 Ml Syringe) 3 ml IVFLUSH QSHIFT [facility] Last Admin: 06/02/24 22:19 Dose: 3 ml Vancomycin HCl (Vancomycin Hcl 125 Mg Capsule) 125 mg PO Q6H [facility] Last Admin: 06/03/24 05:59 Dose: 125 mg Home Medications ?Medication ?Instructions ?Recorded ?Confirmed ?Last Taken ?Type ammonium lactate 12 % lotion 1 appl topical DAILY PRN Dry Skin 06/02/24 06/02/24 Unknown History apixaban 5 mg tablet (Eliquis) 5 mg PO BID 06/02/24 06/02/24 Unknown History cholestyramine (with sugar) 4 gram 1 ea PO DAILY 06/02/24 06/02/24 Unknown History powder for susp in a packet diltiazem HCl 240 mg 240 mg PO DAILY 06/02/24 06/02/24 Unknown History capsule,extended release 24 hr metoprolol tartrate 25 mg tablet 25 mg PO DAILY 06/02/24 06/02/24 Unknown History pantoprazole 20 mg tablet,delayed 20 mg PO DAILY@0630 06/02/24 06/02/24 Unknown History release vancomycin 125 mg capsule 125 mg PO MOWEFR@0900 06/02/24 06/02/24 Unknown History Physical Exam 2 Vital Signs: Vital Signs: Last Vital Signs Temp 97.1 F 06/03/24 07:10 Pulse 69 06/03/24 07:10 Resp 16 06/03/24 07:10 BP 129/61 06/03/24 07:10 Pulse Ox 97 06/03/24 04:00 O2 Del Method Room Air 06/03/24 04:00 BMI result Body Mass Index 19.2 Const: General: comfortable and no acute distress O rientation/consciousness: patient oriented x3 HEENT: Ears: hearing grossly normal bilaterally Resp: Effort & Inspection: normal respiratory effort and able to speak in complete sentences Auscultation: clear to auscultation bilaterally Cardio: Rate: regular rate Rhythm: regular rhythm Heart sounds: S1 normal heart sound present and S2 normal heart sound present Bruits: no abdominal aortic bruits, no carotid bruits, no femoral bruits and no renal bruits GI: Palpation (GI): No Abdominal aortic bruit present Neuro: General: patient oriented x3 Cranial nerves: Yes Normal hearing present Sensory Exam: No Sensory deficit (Neuro) Extrem: Other: Left lower extremity: swollen from groin to the ankle, no erythema noted. Not painful to palpation. Results Labs 06/02/24 10:33 06/02/24 10:33 Labs: Abnormal lab results 06/02/24 06/02/24 06/02/24 Range/Units 10:33 10:34 10:38 WBC 26.6 H (4.8-10.8) X10*3/uL RBC 3.73 L D (4.60-5.80) X10*6/uL Hgb 11.9 L D (14.0-18.0) g/dl Hct 37.1 L D (42.0-52.0) % MCV 99.5 H (80.0-98.0) fL RDW 17.1 H (11.0-16.0) % Plt Count 25 L D (160-400) X10*3/uL Absolute Nucleated RBC 0.040 H (0.0-0.012) X10*3/uL Neutrophils % (Manual) 92 H (45-73) % Abs Neuts (Manual) 25.8 H (2.0-8.3) X10*3/uL Immature Retic Fraction 25.3 H (2.3-13.4) % Retic Hgb Equivalent 26.8 L (30.0-35.0) pg PT (10.9-12.4) SEC INR (0.9-1.1) APTT (26.0-36.8) SEC Fibrinogen (259-690) MG/DL BUN 23 H (9-16) mg/dL Creatinine 4.50 H* (0.5-1.4) mg/dL Lactic Acid 2.8 H* (0.5-2.0) mmol/L Lactic Acid F/U @ 2Hr (0.5-2.0) mmol/L Lactic Acid F/U @ 4Hr (0.5-2.0) mmol/L Calcium 7.0 L (8.4-10.2) mg/dL Alkaline Phosphatase 124 H (39-117) U/L Lactate Dehydrogenase 575 H (118-273) U/L C-Reactive Protein 14.34 H (< or = 0.50) mg/dL Total Protein 5.1 L (6.5-8.0) g/dL Albumin 1.9 L (3.5-5.0) g/dL Urine Protein 300 (3+) H (Neg-Trace) mg/dL Urine Blood Large (3+) H (Negative) Urine Nitrite Positive H (Negative) Ur Leukocyte Esterase Large (3+) H (Negative) Urine RBC 11-20 H (0-2) /HPF Urine WBC >50 H (0-5) /HPF Stool EPEC (PCR) (Not Detect.) C. difficile Tox B Gene (Negative) C. difficile Toxin A&B (Negative) 06/02/24 06/02/24 06/02/24 Range/Units 12:43 14:38 17:45 WBC (4.8-10.8) X10*3/uL RBC (4.60-5.80) X10*6/uL Hgb (14.0-18.0) g/dl Hct (42.0-52.0) % MCV (80.0-98.0) fL RDW (11.0-16.0) % Plt Count (160-400) X10*3/uL Absolute Nucleated RBC (0.0-0.012) X10*3/uL Neutrophils % (Manual) (45-73) % Abs Neuts (Manual) (2.0-8.3) X10*3/uL Immature Retic Fraction (2.3-13.4) % Retic Hgb Equivalent (30.0-35.0) pg PT (10.9-12.4) SEC INR (0.9-1.1) APTT (26.0-36.8) SEC Fibrinogen (259-690) MG/DL BUN (9-16) mg/dL Creatinine (0.5-1.4) mg/dL Lactic Acid (0.5-2.0) mmol/L Lactic Acid F/U @ 2Hr 3.1 H* (0.5-2.0) mmol/L Lactic Acid F/U @ 4Hr 2.5 H* (0.5-2.0) mmol/L Calcium (8.4-10.2) mg/dL Alkaline Phosphatase (39-117) U/L Lactate Dehydrogenase (118-273) U/L C-Reactive Protein (< or = 0.50) mg/dL Total Protein (6.5-8.0) g/dL Albumin (3.5-5.0) g/dL Urine Protein (Neg-Trace) mg/dL Urine Blood (Negative) Urine Nitrite (Negative) Ur Leukocyte Esterase (Negative) Urine RBC (0-2) /HPF Urine WBC (0-5) /HPF Stool EPEC (PCR) Detected A (Not Detect.) C. difficile Tox B Gene POSITIVE A* (Negative) C. difficile Toxin A&B Positive A* (Negative) 06/02/24 Range/Units 17:46 WBC (4.8-10.8) X10*3/uL RBC (4.60-5.80) X10*6/uL Hgb (14.0-18.0) g/dl Hct (42.0-52.0) % MCV (80.0-98.0) fL RDW (11.0-16.0) % Plt Count (160-400) X10*3/uL Absolute Nucleated RBC (0.0-0.012) X10*3/uL Neutrophils % (Manual) (45-73) % Abs Neuts (Manual) (2.0-8.3) X10*3/uL Immature Retic Fraction (2.3-13.4) % Retic Hgb Equivalent (30.0-35.0) pg PT 15.2 H (10.9-12.4) SEC INR 1.3 H (0.9-1.1) APTT 39.9 H D (26.0-36.8) SEC Fibrinogen 112 L (259-690) MG/DL BUN (9-16) mg/dL Creatinine (0.5-1.4) mg/dL Lactic Acid (0.5-2.0) mmol/L Lactic Acid F/U @ 2Hr (0.5-2.0) mmol/L Lactic Acid F/U @ 4Hr (0.5-2.0) mmol/L Calcium (8.4-10.2) mg/dL Alkaline Phosphatase (39-117) U/L Lactate Dehydrogenase (118-273) U/L C-Reactive Protein (< or = 0.50) mg/dL Total Protein (6.5-8.0) g/dL Albumin (3.5-5.0) g/dL Urine Protein (Neg-Trace) mg/dL Urine Blood (Negative) Urine Nitrite (Negative) Ur Leukocyte Esterase (Negative) Urine RBC (0-2) /HPF Urine WBC (0-5) /HPF Stool EPEC (PCR) (Not Detect.) C. difficile Tox B Gene (Negative) C. difficile Toxin A&B (Negative) Short CBC 06/02/24 Range/Units 10:33 WBC 26.6 H (4.8-10.8) X10*3/uL Hgb 11.9 L D (14.0-18.0) g/dl Hct 37.1 L D (42.0-52.0) % Plt Count 25 L D (160-400) X10*3/uL BMP 06/02/24 10:33 Sodium 138 Potassium 4.1 Chloride 102 Carbon Dioxide 26 BUN 23 H Creatinine 4.50 H* Calcium 7.0 L Liver Function 06/02/24 Range/Units 10:33 Total Bilirubin 0.9 (0.0-1.0) mg/dL AST 27 (5-37) U/L ALT < 6 (0-40) U/L Alkaline Phosphatase 124 H (39-117) U/L Albumin 1.9 L (3.5-5.0) g/dL Urine 06/02/24 Range/Units 10:38 Urine Color BROWN Urine Appearance Turbid Urine pH 7.5 (5.0-9.0) Ur Specific [place] 1.020 (1.005-1.025) Urine Protein 300 (3+) H (Neg-Trace) mg/dL Urine Glucose (UA) Negative (Negative) mg/dL All other labs normal. Assessment and Plan (1) Left leg DVT: Qualifiers: Affected thrombotic vein of extremity: femoral Chronicity: acute Q ualified Code(s): I82.412 - Acute embolism and thrombosis of left femoral vein Status: Acute Plan We were consulted on Mehran for concerns of findings on US of an extensive DVT. The pt has an extensive medical history and recently was admitted from 03/25- 04/18 for a Klebsiella infection with septic shock and bacteremia with a GIB requiring 3U pRBCs. He presented to the ER with concerns of a UTI/cloudy urine in his nephrostomy tube as well as diarrhea. He was found, on venous duplex US, to have a DVT that extends from the calf veins into the popliteal, femoral, proximal deep femoral, and common femoral vein into the greater saphenous confluence; there was also fluid stranding in the subcutaneous tissue consistent with edema. Heme/Onc recommends IVC filter placement with close monitoring of bloodwork; if his platelet count >30, then can consider Argatroban. The thought is that likely the DVT is due to prolonged hospitalization. ? DIC due to sepsis. His platelet count this morning decreased to 19 and his white count increased to 33.1, up from 26.6. The pt will need some AC/IVC filter placement due to the extensive DVT; however, his platelets continue to decline and his white count is increasing. We will continue to monitor closely. If there are any questions or concerns, please do not hesitate to reach out to us. Procedures Date of Service Date of Service: 06/03/24
[2024-06-03 09:49] LABS: Alanine Aminotransferase < 6 U/L (0-40); Albumin Level 1.7 g/dL (3.5-5.0); Alkaline Phosphatase 157 U/L (39-117); Aspartate Amino Transferase 16 U/L (5-37); Bilirubin Direct 0.4 mg/dL (0.0-0.5); Bilirubin Total 0.9 mg/dL (0.0-1.0); Lactate Dehydrogenase 364 U/L (118-273); Total Protein 4.5 g/dL (6.5-8.0)
[2024-06-03 09:50] LABS: WBC ABN SCTR FOR CBC 1
[2024-06-03 09:57] LABS: Alanine Aminotransferase < 6 U/L (0-40); Albumin Level 1.7 g/dL (3.5-5.0); Alkaline Phosphatase 128 U/L (39-117); Anion Gap 9 (12-20); Aspartate Amino Transferase 14 U/L (5-37); Bilirubin Total 0.9 mg/dL (0.0-1.0); Blood Urea Nitrogen 17 mg/dL (9-16); Calcium 6.9 mg/dL (8.4-10.2); Carbon Dioxide 28 mmol/L (22-29); Chloride 101 mmol/L (96-108); Creatinine Clr Calc Pharmacy 18.7; Estimated Glomerular Filt Rate 22; Glucose Fasting 70 mg/dL (60-99); Potassium 2.8 mmol/L (3.3-5.1); Sodium 135 mmol/L (135-145); Total Protein 4.5 g/dL (6.5-8.0)
[2024-06-03 09:59] LABS: Platelet Count 19 X10*3/uL (160-400); White Blood Count 33.1 X10*3/uL (4.8-10.8)
--- NOTE | 2024-06-03 10:58 | PM.PNNEP ---
Subjective Subjective Date of Service: 06/03/24 Principal diagnosis: ESRD Interval history: pt seen on HD Ful consult dictated pt c/o pain at the PCN site Physical Exam Vital Signs: Vital Signs: Last Vital Signs Temp 97.1 F 06/03/24 07:10 Pulse 69 06/03/24 07:10 Resp 16 06/03/24 07:10 BP 129/61 06/03/24 07:10 Pulse Ox 97 06/03/24 04:00 O2 Del Method Room Air 06/03/24 04:00 BMI result Body Mass Index 19.2 Const: General: no acute distress Orientation/consciousness: patient oriented x3 HEENT: Ears: hearing grossly normal bilaterally Resp: Effort & Inspection: normal respiratory effort and able to speak in complete sentences Auscultation: clear to auscultation bilaterally Cardio: Rate: regular rate Rhythm: regular rhythm Heart sounds: S1 normal heart sound present and S2 normal heart sound present Bruits: no abdominal aortic bruits, no carotid bruits, no femoral bruits and no renal bruits GI: Palpation (GI): No Abdominal aortic bruit present Neuro: General: patient oriented x3 Cranial nerves: Yes Normal hearing present Sensory Exam: No Sensory deficit (Neuro) Extrem: Other: Left lower extremity: swollen from groin to the ankle, no erythema noted. Not painful to palpation. Objective Data Labs 06/03/24 08:54 06/03/24 08:53 Labs: Laboratory Results - last 24 hr 06/02/24 06/02/24 06/02/24 10:33 10:34 10:57 WBC 26.6 H RBC 3.73 L D Hgb 11.9 L D Hct 37.1 L D MCV 99.5 H MCH 31.9 MCHC 32.1 RDW 17.1 H Plt Count 25 L D MPV Immature Gran % (Auto) Cancelled Neut % (Auto) Cancelled Lymph % (Auto) Cancelled [place] % (Auto) Cancelled Eos % (Auto) Cancelled Baso % (Auto) Cancelled Lymph # (Auto) Cancelled [place] # (Auto) Cancelled Eos # (Auto) Cancelled Baso # (Auto) Cancelled Abs Immat Gran (auto) Cancelled Absolute Neuts (auto) Cancelled Absolute Nucleated RBC 0.040 H Nucleated RBC % (auto) 0.2 Neutrophils % (Manual) 92 H Band Neutrophils % 5 Metamyelocytes % 2 Myelocytes % 1 Abs Neuts (Manual) 25.8 H Metamyelocytes # 0.5 Myelocytes # 0.3 Toxic Vacuolation PRESENT Platelet Estimate DECREASED Plt Morphology Comment NORMAL RBC Morphology NOTED Polychromasia 1+ (0-2) Macrocytosis 1+ (5-14) Columbia Cells 3+ (>5) Acanthocytes (Spur) 1+ (0-2) Schistocytes 1+ (0-2) Smear Path Review SEE NOTE ESR 2 Absolute Retic 0.060 Percent Retic 1.6 Immature Retic Fraction 25.3 H Retic Hgb Equivalent 26.8 L PT INR APTT Fibrinogen D-Dimer High Sensitivty Sodium 138 Potassium 4.1 Chloride 102 Carbon Dioxide 26 Anion Gap 14 BUN 23 H Creatinine 4.50 H* Estim Creat Clear Calc 11.4 Estimated GFR 13 Random Glucose 80 Fasting Glucose Lactic Acid 2.8 H* Lactic Acid F/U @ 2Hr Lactic Acid F/U @ 4Hr Calcium 7.0 L Total Bilirubin 0.9 Direct Bilirubin AST 27 ALT < 6 Alkaline Phosphatase 124 H Lactate Dehydrogenase 575 H C-Reactive Protein 14.34 H Total Protein 5.1 L Albumin 1.9 L Stool Occult Blood POSITIVE Stl C. cayetanensis PCR Stool Rotavirus A PCR Stl Adenov F 40/41 PCR Stool Astrovirus (PCR) Stool Campylobacter PCR Stool Cryptosporidium PCR Stl Sh Tox Pr E STEC PCR Stool E coli O157 PCR Stl Enterotoxigenic E PCR Stool EPEC (PCR) Stool EAEC (PCR) Stl E. histolytica PCR Stool Giardia Lamblia PCR Stl P. shigelloides PCR Stool Salmonella PCR Stool Sapovirus (PCR) Stl Shigella/EIEC PCR St Y.enterocolitica PCR Stool Vibrio (PCR) Stl Vibrio cholerae PCR Stl Norovirus GI/GII PCR C. difficile Tox B Gene C. difficile Toxin A&B C. difficile Interpret 06/02/24 06/02/24 06/02/24 12:43 14:38 17:45 WBC RBC Hgb Hct MCV MCH MCHC RDW Plt Count MPV Immature Gran % (Auto) Neut % (Auto) Lymph % (Auto) [place] % (Auto) Eos % (Auto) Baso % (Auto) Lymph # (Auto) [place] # (Auto) Eos # (Auto) Baso # (Auto) Abs Immat Gran (auto) Absolute Neuts (auto) Absolute Nucleated RBC Nucleated RBC % (auto) Neutrophils % (Manual) Band Neutrophils % Metamyelocytes % Myelocytes % Abs Neuts (Manual) Metamyelocytes # Myelocytes # Toxic Vacuolation Platelet Estimate Plt Morphology Comment RBC Morphology Polychromasia Macrocytosis Columbia Cells Acanthocytes (Spur) Schistocytes Smear Path Review Cancelled ESR Absolute Retic Percent Retic Immature Retic Fraction Retic Hgb Equivalent PT INR APTT Fibrinogen D-Dimer High Sensitivty Sodium Potassium Chloride Carbon Dioxide Anion Gap BUN Creatinine Estim Creat Clear Calc Estimated GFR Random Glucose Fasting Glucose Lactic Acid Lactic Acid F/U @ 2Hr 3.1 H* Lactic Acid F/U @ 4Hr 2.5 H* Calcium Total Bilirubin Direct Bilirubin AST ALT Alkaline Phosphatase Lactate Dehydrogenase C-Reactive Protein Total Protein Albumin Stool Occult Blood Stl C. cayetanensis PCR Not Detected Stool Rotavirus A PCR Not Detected Stl Adenov F 40/41 PCR Not Detected Stool Astrovirus (PCR) Not Detected Stool Campylobacter PCR Not Detected Stool Cryptosporidium PCR Not Detected Stl Sh Tox Pr E STEC PCR Not Detected Stool E coli O157 PCR Not applicable Stl Enterotoxigenic E PCR Not Detected Stool EPEC (PCR) Detected A Stool EAEC (PCR) Not Detected Stl E. histolytica PCR Not Detected Stool Giardia Lamblia PCR Not Detected Stl P. shigelloides PCR Not Detected Stool Salmonella PCR Not Detected Stool Sapovirus (PCR) Not Detected Stl Shigella/EIEC PCR Not Detected St Y.enterocolitica PCR Not Detected Stool Vibrio (PCR) Not Detected Stl Vibrio cholerae PCR Not Detected Stl Norovirus GI/GII PCR Not Detected C. difficile Tox B Gene POSITIVE A* C. difficile Toxin A&B Positive A* C. difficile Interpret SEE NOTE 06/02/24 06/03/24 06/03/24 17:46 08:53 08:54 WBC Cancelled 33.1 H* RBC Cancelled 3.59 L Hgb Cancelled 11.4 L Hct Cancelled 34.9 L MCV Cancelled 97.2 MCH Cancelled 31.8 MCHC Cancelled 32.7 RDW Cancelled 17.2 H Plt Count Cancelled 19 L* MPV Cancelled Not Reportable Immature Gran % (Auto) Cancelled Neut % (Auto) Cancelled Lymph % (Auto) Cancelled [place] % (Auto) Cancelled Eos % (Auto) Cancelled Baso % (Auto) Cancelled Lymph # (Auto) Cancelled [place] # (Auto) Cancelled Eos # (Auto) Cancelled Baso # (Auto) Cancelled Abs Immat Gran (auto) Cancelled Absolute Neuts (auto) Cancelled Absolute Nucleated RBC Cancelled 0.120 H Nucleated RBC % (auto) Cancelled 0.4 H Neutrophils % (Manual) Band Neutrophils % Metamyelocytes % Myelocytes % Abs Neuts (Manual) Metamyelocytes # Myelocytes # Toxic Vacuolation Platelet Estimate Plt Morphology Comment RBC Morphology Polychromasia Macrocytosis Millicent Cells Acanthocytes (Spur) Schistocytes Smear Path Review ESR Absolute Retic Percent Retic Immature Retic Fraction Retic Hgb Equivalent PT 15.2 H INR 1.3 H APTT 39.9 H D Fibrinogen 112 L D-Dimer High Sensitivty 270 Sodium 135 Potassium 2.8 L* D Chloride 101 Carbon Dioxide 28 Anion Gap 9 L BUN 17 H Creatinine 2.84 H Estim Creat Clear Calc 18.7 Estimated GFR 22 Random Glucose Fasting Glucose 70 Lactic Acid Lactic Acid F/U @ 2Hr Lactic Acid F/U @ 4Hr Calcium 6.9 L Total Bilirubin 0.9 0.9 Direct Bilirubin 0.4 AST 14 16 ALT < 6 < 6 Alkaline Phosphatase 128 H 157 H Lactate Dehydrogenase 364 H C-Reactive Protein Total Protein 4.5 L 4.5 L Albumin 1.7 L 1.7 L Stool Occult Blood Stl C. cayetanensis PCR Stool Rotavirus A PCR Stl Adenov F 40/41 PCR Stool Astrovirus (PCR) Stool Campylobacter PCR Stool Cryptosporidium PCR Stl Sh Tox Pr E STEC PCR Stool E coli O157 PCR Stl Enterotoxigenic E PCR Stool EPEC (PCR) Stool EAEC (PCR) Stl E. histolytica PCR Stool Giardia Lamblia PCR Stl P. shigelloides PCR Stool Salmonella PCR Stool Sapovirus (PCR) Stl Shigella/EIEC PCR St Y.enterocolitica PCR Stool Vibrio (PCR) Stl Vibrio cholerae PCR Stl Norovirus GI/GII PCR C. difficile Tox B Gene C. difficile Toxin A&B C. difficile Interpret Microbiology Microbiology Results: Microbiology 06/02/24 Unknown Urine Other - Nephrostomy Urine Culture - Final Procedures Date of Service Date of Service: 06/03/24 Assessment & Plan Assessment and plan (1) End stage renal disease: Status: Resolved (2) Anemia: Status: Inactive Plan ESRD on HD at [facility] via PC Admitted with L Lower ext DVT/ Ward colitis sepsis Klebsiella bacteremia in the past s/p new dialysis tunnelled catheter- last admission CT abdomen unchanged c/w right-sided hydronephrosis, complex hemorrhagic exophytic lesion nephrogenic anemia Thrombocytopenia ? HIT REC Usual HD MWF HD today hours and follow TTS schedule in hospital NO HEPARIN to prime machine OR TO LOCK PERMCATH - Will use NS - D/w HD nurse in detail Hematology f/u Antibiotics as per medical team No Need for EPO Urology f/u Time Spent With Patient Time: Total time managing care of this patient today ____ minutes. Progress Note: Quality Stroke Does the patient have a stroke diagnosis?: No
[2024-06-03 11:16] LABS: Band Neutrophils Percent 5 % (3-5); Lymphocytes Percent Manual 3 % (20-40); Metamyelocytes Absolute 0.3 X10*3/uL; Metamyelocytes Percent 1 %; Monocytes Absolute Manual 2.3 X10*3/uL (0.1-1.2); Monocytes Percent Manual 7 % (2-11); Neutrophils Absolute Manual 29.5 X10*3/uL (2.0-8.3); Neutrophils Percent Manual 84 % (45-73)
[2024-06-03 11:22] LABS: Macrocytosis 1+ (5-14) /OIF; Platelet Estimate DECREASED (NORMAL); RBC Morphology NOTED
[2024-06-03 11:23] LABS: Acanthocytes 3+ (>5) /OIF; Platelet Morphology Comment NORMAL; Schistocytes 2+ (3-5) /OIF; Toxic Vacuolation PRESENT
--- NOTE | 2024-06-03 12:16 | MHC.CLN ---
PT IS MODERATELY MALNOURISHED PT WITH MILDLY DEPLETED SUBCUTANEOUS FAT AND MUSCLE MASS WITH 17% SIGNIFICANT WT LOSS X6 MONTHS WITH RECURRING ACUTE ILLNESS (C-DIFF) WHICH INCREASES NUTRITION NEEDS. HT USED FOR ASSESSMENT 5'9 DIET RX; C/L RECOMMEND ADDING ENSURE CLEAR TID TO PROVIDE 720KCALS, 24G PROTEIN (SUPP IS RENAL FRIENDLY) MONITOR PO INTAKE AND ENCOURAGE SUPPLEMENTS SEE ALSO FULL CLINICAL NUTRITION ASSESSMENT
[2024-06-03] MEDS: dilTIAZem HCL CD 240 MG CAP.ER.DEG PO (12:21)
[2024-06-03] MEDS: Amiodarone HCL 200 MG TABLET PO (12:21)
[2024-06-03] MEDS: Potassium Chloride Packet 20 MEQ PACKET 40 MEQ PO ×2 (12:22→21:09)
[2024-06-03] MEDS: Cholestyramine (With Sugar) 4 GM POWD.PACK PO (12:22)
[2024-06-03] MEDS: Metoprolol Tartrate 25 MG TABLET PO (12:22)
[2024-06-03] MEDS: Piperacillin Sodium/Tazobactam 4.5 GM in 0.9 % Sodium Chloride 100 ML IV ×2 (12:29→21:09)
--- NOTE | 2024-06-03 14:32 | HO.PM.IMPN ---
Subjective Subjective Date of Service: 06/03/24 Interval History: Major complaint is pain from nephrostomy tube. Review of Systems Denies chest pain Denies shortness of breath Denies nausea vomiting diarrhea Denies fever chills Physical Exam Vital Signs: Vital Signs: Last Vital Signs Temp 97.2 F 06/03/24 13:58 Pulse 75 06/03/24 13:58 Resp 18 06/03/24 13:58 BP 121/58 L 06/03/24 13:58 Pulse Ox 97 06/03/24 12:09 O2 Del Method Room Air 06/03/24 12:09 BMI result Body Mass Index 19.8 Const: Other: Awake alert ill-appearing Resp: Other: Clear to auscultation bilaterally no rales rhonchi or wheezes Cardio: Other: No S4; positive S1-S2; no S3 murmurs rubs or gallops GI: Other: Soft nontender nondistended normoactive bowel sounds : Other: Right percutaneous nephrostomy tube. Site clean dry and intact Extrem: Other: No edema bilaterally Objective Data Active Medications Acetaminophen (Acetaminophen 325 Mg Tablet) 650 mg PO Q6H PRN PRN Reason: Pain, Mild 1-3,fever,headache Amiodarone HCl (Amiodarone Hcl 200 Mg Tablet) 200 mg PO DAILY [facility] Last Admin: 06/03/24 12:21 Dose: 200 mg Documented By: FABY Calcium Carbonate (Calcium Carbonate 750 Mg Tab.Chew) 750 mg PO Q4H PRN PRN Reason: Heartburn Cholestyramine Resin (Cholestyramine (With Sugar) 4 Gm Powd.Pack) 4 gm PO DAILY [facility] Last Admin: 06/03/24 12:22 Dose: 4 gm Documented By: FABY Diltiazem HCl (Diltiazem Hcl Cd 240 Mg Cap.Er.Deg) 240 mg PO DAILY [facility]; Protocol Last Admin: 06/03/24 12:21 Dose: 240 mg Documented By: FABY Linezolid (Zyvox/D5w) 600 mg in 300 mls @ 300 mls/hr IV Q12H [facility] Last Infusion: 06/03/24 07:54 Dose: Infused Documented By: FABY Piperacillin Sod/Tazobactam (Sod 4.5 gm/ Sodium Chloride) 100 mls @ 200 mls/hr IV Q12H [facility] Last Infusion: 06/03/24 13:23 Dose: Infused Documented By: FABY Sodium Chloride (Ns) 1,000 mls @ 100 mls/hr IVCONT .Q10H [facility] Lactic Acid (Ammonium Lactate 12 % Lotion 226 Gm Bottle) 1 appl TOPICAL DAILY PRN; Protocol PRN Reason: Dry Skin Magnesium Hydroxide (Milk Of Magnesia 30 Ml Oral.Susp) 30 ml PO DAILY PRN PRN Reason: Constipation Melatonin (Melatonin 3 Mg Tablet) 6 mg PO BEDTIME PRN PRN Reason: Insomnia Metoprolol Tartrate (Metoprolol Tartrate 25 Mg Tablet) 25 mg PO DAILY [facility]; Protocol Last Admin: 06/03/24 12:22 Dose: 25 mg Documented By: FABY Omeprazole (Omeprazole 20 Mg Capsule.) 20 mg PO DAILY@0630 [facility] Last Admin: 06/03/24 05:59 Dose: 20 mg Documented By: STEVEN Ondansetron HCl (Ondansetron Hcl 4 Mg/2 Ml Vial) 4 mg IVPUSH Q8H PRN PRN Reason: Nausea and Vomiting Potassium Chloride (Potassium Chloride Packet 20 Meq Packet) 40 meq PO BID [facility] Stop: 06/04/24 09:01 Last Admin: 06/03/24 12:22 Dose: 40 meq Documented By: FABY Sodium Chloride (0.9 % Sodium Chloride Flush 3 Ml Syringe) 3 ml IVFLUSH QSHIFT [facility] Last Admin: 06/03/24 14:13 Dose: Not Given Documented By: FABY Non-Admin Reason: IV Running Vancomycin HCl (Vancomycin Hcl 125 Mg Capsule) 125 mg PO Q6H [facility] Last Admin: 06/03/24 12:22 Dose: 125 mg Documented By: FABY Labs 06/03/24 08:54 06/03/24 08:53 Labs: Laboratory Results - last 24 hr 06/02/24 06/02/24 06/02/24 10:33 12:43 14:38 MCV 99.5 H MCH 31.9 MCHC 32.1 RDW 17.1 H Plt Count 25 L D MPV Immature Gran % (Auto) Cancelled Neut % (Auto) Cancelled Lymph % (Auto) Cancelled Ida % (Auto) Cancelled Eos % (Auto) Cancelled Baso % (Auto) Cancelled Lymph # (Auto) Cancelled Ida # (Auto) Cancelled Eos # (Auto) Cancelled Baso # (Auto) Cancelled Abs Immat Gran (auto) Cancelled Absolute Neuts (auto) Cancelled Absolute Nucleated RBC 0.040 H Nucleated RBC % (auto) 0.2 Neutrophils % (Manual) 92 H Band Neutrophils % 5 Lymphocytes % (Manual) Monocytes % (Manual) Metamyelocytes % 2 Myelocytes % 1 Abs Neuts (Manual) 25.8 H Lymphocytes # (Manual) Monocytes # (Manual) Metamyelocytes # 0.5 Myelocytes # 0.3 Toxic Vacuolation PRESENT Platelet Estimate DECREASED Plt Morphology Comment NORMAL RBC Morphology NOTED Polychromasia 1+ (0-2) Macrocytosis 1+ (5-14) Denton Cells 3+ (>5) Acanthocytes (Spur) 1+ (0-2) Schistocytes 1+ (0-2) Smear Path Review SEE NOTE Absolute Retic 0.060 Percent Retic 1.6 Immature Retic Fraction 25.3 H Retic Hgb Equivalent 26.8 L PT INR APTT Fibrinogen D-Dimer High Sensitivty Anion Gap Estim Creat Clear Calc Estimated GFR Fasting Glucose Lactic Acid F/U @ 2Hr 3.1 H* Lactic Acid F/U @ 4Hr Calcium Total Bilirubin Direct Bilirubin AST ALT Alkaline Phosphatase Lactate Dehydrogenase 575 H Total Protein Albumin Stl C. cayetanensis PCR Not Detected Stool Rotavirus A PCR Not Detected Stl Adenov F 40/41 PCR Not Detected Stool Astrovirus (PCR) Not Detected Stool Campylobacter PCR Not Detected Stool Cryptosporidium PCR Not Detected Stl Sh Tox Pr E STEC PCR Not Detected Stool E coli O157 PCR Not applicable Stl Enterotoxigenic E PCR Not Detected Stool EPEC (PCR) Detected A Stool EAEC (PCR) Not Detected Stl E. histolytica PCR Not Detected Stool Giardia Lamblia PCR Not Detected Stl P. shigelloides PCR Not Detected Stool Salmonella PCR Not Detected Stool Sapovirus (PCR) Not Detected Stl Shigella/EIEC PCR Not Detected St Y.enterocolitica PCR Not Detected Stool Vibrio (PCR) Not Detected Stl Vibrio cholerae PCR Not Detected Stl Norovirus GI/GII PCR Not Detected C. difficile Tox B Gene POSITIVE A* C. difficile Toxin A&B Positive A* C. difficile Interpret SEE NOTE Blood Type Antibody Screen 06/02/24 06/02/24 06/03/24 17:45 17:46 08:53 MCV Cancelled MCH Cancelled MCHC Cancelled RDW Cancelled Plt Count Cancelled MPV Cancelled Immature Gran % (Auto) Neut % (Auto) Lymph % (Auto) Ida % (Auto) Eos % (Auto) Baso % (Auto) Lymph # (Auto) Ida # (Auto) Eos # (Auto) Baso # (Auto) Abs Immat Gran (auto) Absolute Neuts (auto) Absolute Nucleated RBC Cancelled Nucleated RBC % (auto) Cancelled Neutrophils % (Manual) Band Neutrophils % Lymphocytes % (Manual) Monocytes % (Manual) Metamyelocytes % Myelocytes % Abs Neuts (Manual) Lymphocytes # (Manual) Monocytes # (Manual) Metamyelocytes # Myelocytes # Toxic Vacuolation Platelet Estimate Plt Morphology Comment RBC Morphology Polychromasia Macrocytosis Denton Cells Acanthocytes (Spur) Schistocytes Smear Path Review Cancelled Absolute Retic Percent Retic Immature Retic Fraction Retic Hgb Equivalent PT 15.2 H INR 1.3 H APTT 39.9 H D Fibrinogen 112 L D-Dimer High Sensitivty 270 Anion Gap 9 L Estim Creat Clear Calc 18.7 Estimated GFR 22 Fasting Glucose 70 Lactic Acid F/U @ 2Hr Lactic Acid F/U @ 4Hr 2.5 H* Calcium 6.9 L Total Bilirubin 0.9 Direct Bilirubin AST 14 ALT < 6 Alkaline Phosphatase 128 H Lactate Dehydrogenase Total Protein 4.5 L Albumin 1.7 L Stl C. cayetanensis PCR Stool Rotavirus A PCR Stl Adenov F 40/41 PCR Stool Astrovirus (PCR) Stool Campylobacter PCR Stool Cryptosporidium PCR Stl Sh Tox Pr E STEC PCR Stool E coli O157 PCR Stl Enterotoxigenic E PCR Stool EPEC (PCR) Stool EAEC (PCR) Stl E. histolytica PCR Stool Giardia Lamblia PCR Stl P. shigelloides PCR Stool Salmonella PCR Stool Sapovirus (PCR) Stl Shigella/EIEC PCR St Y.enterocolitica PCR Stool Vibrio (PCR) Stl Vibrio cholerae PCR Stl Norovirus GI/GII PCR C. difficile Tox B Gene C. difficile Toxin A&B C. difficile Interpret Blood Type Antibody Screen 06/03/24 06/03/24 08:54 10:55 MCV 97.2 MCH 31.8 MCHC 32.7 RDW 17.2 H Plt Count 19 L* MPV Not Reportable Immature Gran % (Auto) Cancelled Neut % (Auto) Cancelled Lymph % (Auto) Cancelled Ida % (Auto) Cancelled Eos % (Auto) Cancelled Baso % (Auto) Cancelled Lymph # (Auto) Cancelled Ida # (Auto) Cancelled Eos # (Auto) Cancelled Baso # (Auto) Cancelled Abs Immat Gran (auto) Cancelled Absolute Neuts (auto) Cancelled Absolute Nucleated RBC 0.120 H Nucleated RBC % (auto) 0.4 H Neutrophils % (Manual) 84 H Band Neutrophils % 5 Lymphocytes % (Manual) 3 L Monocytes % (Manual) 7 Metamyelocytes % 1 Myelocytes % Abs Neuts (Manual) 29.5 H Lymphocytes # (Manual) 1.0 L Monocytes # (Manual) 2.3 H Metamyelocytes # 0.3 Myelocytes # Toxic Vacuolation PRESENT Platelet Estimate DECREASED Plt Morphology Comment NORMAL RBC Morphology NOTED Polychromasia Macrocytosis 1+ (5-14) Millicent Cells Acanthocytes (Spur) 3+ (>5) Schistocytes 2+ (3-5) Smear Path Review Absolute Retic Percent Retic Immature Retic Fraction Retic Hgb Equivalent PT INR APTT Fibrinogen D-Dimer High Sensitivty Anion Gap Estim Creat Clear Calc Estimated GFR Fasting Glucose Lactic Acid F/U @ 2Hr Lactic Acid F/U @ 4Hr Calcium Total Bilirubin 0.9 Direct Bilirubin 0.4 AST 16 ALT < 6 Alkaline Phosphatase 157 H Lactate Dehydrogenase 364 H Total Protein 4.5 L Albumin 1.7 L Stl C. cayetanensis PCR Stool Rotavirus A PCR Stl Adenov F 40/41 PCR Stool Astrovirus (PCR) Stool Campylobacter PCR Stool Cryptosporidium PCR Stl Sh Tox Pr E STEC PCR Stool E coli O157 PCR Stl Enterotoxigenic E PCR Stool EPEC (PCR) Stool EAEC (PCR) Stl E. histolytica PCR Stool Giardia Lamblia PCR Stl P. shigelloides PCR Stool Salmonella PCR Stool Sapovirus (PCR) Stl Shigella/EIEC PCR St Y.enterocolitica PCR Stool Vibrio (PCR) Stl Vibrio cholerae PCR Stl Norovirus GI/GII PCR C. difficile Tox B Gene C. difficile Toxin A&B C. difficile Interpret Blood Type A Positive Antibody Screen NEGATIVE Microbiology Microbiology Results: Microbiology 06/02/24 10:35 Blood Culture - Preliminary Blood - Venous No growth after 24 hours. 06/02/24 10:34 Blood Culture - Preliminary Blood - Venous No growth after 24 hours. 06/02/24 Unknown Urine Culture - Final Urine Other - Nephrostomy Assessment and Plan (1) Colitis: Status: Acute (2) Thrombocytopenia: Status: Acute (3) Left leg DVT: Status: Acute Plan 78-year-old male with history of BPH, recurrent C diff colitis, hyperlipidemia, hypertension, history of alcohol use disorder, mild cognitive impairments, sick sinus syndrome s/p pacemaker placement, ESRD on HD MWF, chronic thrombocytopenia admitted for pancolitis and catheter associated UTI 1.Acute pancolitis/CDiff positive -CDiff positive -vancomycin p.o. as ordered along with IV metronidazole 2.Acute UTI -Complicated by Right-sided nephrostomy tube. CT Right percutaneous nephrostomy catheter in place air within the collecting system -Urology consult -History VRE UTI. IV linezolid (06/02) -Follow CBC, cultures 3. Extensive DVT left lower extremity complicated by worsening thrombocytopenia -workup for thrombocytopenia in progress -discussed with Hematology/vascular surgery; 1 unit platelets today and check platelet count in a.m. -vascular surgery will likely take patient to OR to place filter in a.m. 4.Recent dialysis catheter line infection -Blood cultures 03/28 positive for Klebsiella. 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 Complex hemorrhagic exophytic lesion of the left kidney;Dilation of the right pelvis and calyceal system possibly related to blood Plavix versus purulent material versus neoplasm) SCPs Full code Requires ongoing hospitalization for IV antibiotics to treat empirically catheter line infection and to manage DVT in the backdrop of thrombocytopenia which will require specialized intervention and consultation Quality Stroke Does the patient have a stroke diagnosis?: No VTE Prior VTE?: No VTE Risk Level:: Medical - moderate - high VTE Device Contraindication: N/A - Device Ordered VTE Drug Contraindication: Treatment Not Indicated
[2024-06-03] MEDS: 0.9 % Sodium Chloride Flush 3 ML SYRINGE IVFLUSH (21:47)
[2024-06-04] VITALS (8 sets, daily range): BP systolic 95–123; BP diastolic 30–56; PULSE 60–66; RESP 15–18; TEMP 36.1–36.3; O2SAT 96–98
[2024-06-04] MEDS: Omeprazole 20 MG CAPSULE.DR PO (05:35)
[2024-06-04] MEDS: vancomycin HCL 125 MG CAPSULE PO ×4 (05:36→21:19)
[2024-06-04] MEDS: 0.9 % Sodium Chloride 1,000 ML 100 ML IVCONT ×2 (05:36→15:29)
[2024-06-04] MEDS: Linezolid/D5W 600 MG/300 ML PIGGYBACK 300 MG IV ×2 (05:36→17:03)
--- NOTE | 2024-06-04 06:02 | PC.NURSE ---
Throughout the night patient has continued to have small black in color, liquid BM's, last one this morning pt had a small BM which was majority blood/mucous, Dr. Smalls made aware.
[2024-06-04 06:45] LABS: Alanine Aminotransferase < 6 U/L (0-40); Albumin Level 1.6 g/dL (3.5-5.0); Alkaline Phosphatase 110 U/L (39-117); Anion Gap 14 (12-20); Aspartate Amino Transferase 16 U/L (5-37); Bilirubin Total 0.9 mg/dL (0.0-1.0); Blood Urea Nitrogen 15 mg/dL (9-16); Calcium 6.7 mg/dL (8.4-10.2); Carbon Dioxide 25 mmol/L (22-29); Chloride 103 mmol/L (96-108); Creatinine Clr Calc Pharmacy 16.7; Estimated Glomerular Filt Rate 19; Glucose Fasting 76 mg/dL (60-99); Sodium 137 mmol/L (135-145); Total Protein 4.2 g/dL (6.5-8.0)
[2024-06-04 06:58] LABS: Hematocrit 32.8 % (42.0-52.0); Hemoglobin 10.3 g/dl (14.0-18.0); Mean Corpuscular HGB Conc 31.4 g/dl (31.0-36.0); Mean Corpuscular Hemoglobin 31.9 pg (27.0-33.0); Mean Corpuscular Volume 101.5 fL (80.0-98.0); NRBC Pct Auto 0.1 /100WBC (0.0-0.2); Platelet Count 26 X10*3/uL (160-400); Red Blood Count 3.23 X10*6/uL (4.60-5.80); Red Cell Distribution Width 17.2 % (11.0-16.0)
[2024-06-04 08:07] LABS: Band Neutrophils Percent 4 % (3-5); Lymphocytes Absolute Manual 0.3 X10*3/uL (1.2-4.9); Lymphocytes Percent Manual 1 % (20-40); Metamyelocytes Absolute 0.8 X10*3/uL; Metamyelocytes Percent 3 %; Myelocytes Absolute 0.8 X10*/uL; Myelocytes Percent 3 %; Neutrophils Percent Manual 85 % (45-73); Promyelocytes Absolute 1.1 X10*3/uL; Promyelocytes Percent 4 %
[2024-06-04 08:13] LABS: RBC Morphology NOTED
[2024-06-04 08:14] LABS: Burr Cells 3+ (>5) /OIF; Hypochromasia 1+ (5-14) /OIF; Macrocytosis 1+ (5-14) /OIF; Platelet Estimate DECREASED (NORMAL); Platelet Morphology Comment NORMAL; Schistocytes 2+ (3-5) /OIF
--- NOTE | 2024-06-04 08:23 | PM.UROCN ---
History of Present Illness Consult details Consult date: 06/04/24 Narrative: CC: Pyelonephritis and question of infection at right nephrostomy tube site 78-year-old Icelandic-speaking male Had been attending outpatient hemodialysis and was referred to hospital for question of swollen leg and DVT. Complaint today regards pain at nephrostomy tube site. On examination site is clean. There will be mucus production were tube inserts. Past history significant for complications related to management of rectal cancer. Initially had been managed with chemotherapy and radiation. Subsequently had LAR performed at [facility] with cover colostomy and subsequent reversal. 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 Subsequently had a right nephrostomy tube placed 04/08/24 at [facility]. In addition in the postoperative course he suffered from Klebsiella infection with septic shock and bacteremia as well as a GI bleed. Was treated for C diff colitis. This required prolonged hospitalization throughout March and April 2024 and was associated with the development of severe thrombocytopenia. Recently found to have extensive DVT of left lower extremity. Has a background of AFib, alcohol dependence, sick sinus syndrome with pacemaker. No acute urologic issues Review of Systems Constitutional: Constitutional: Reports as per HPI and Reports no additional constitutional complaints Cardiovascular: Cardiovascular: Reports as per HPI and Reports no additional cardiovascular complaints Respiratory: Respiratory: Reports as per HPI and Reports no additional respiratory complaints Gastrointestinal: Gastrointestinal: Reports as per HPI and Reports no additional gastrointestinal complaints Genitourinary: Genitourinary: Reports as per HPI Musculoskeletal: Musculoskeletal: Reports no additional musculoskeletal complaints and Reports as per HPI Neurologic: Reports system reviewed and no additional complaints, except as documented and Reports as per HPI [facility] Past Medical History Medical History (Updated 06/03/24 @ 09:58 by Bridgette Gomez PA-C) UTI (urinary tract infection) Ileus C. difficile colitis Acute renal failure BPH (benign prostatic hyperplasia) Sinus bradycardia Recto-vesical fistula End stage renal disease Sick sinus syndrome Postoperative hematoma involving digestive system following digestive system procedure Aftercare following left shoulder joint replacement surgery Pacemaker OA (osteoarthritis) Borderline hyperlipidemia Obesity HTN (hypertension) EtOH dependence Mild cognitive impairment Inhibited sex excitement Atrial fibrillation Cancer of kidney High cholesterol Hypertension Family History Family History Mother Heart problem Surgical History Surgical History Rectal carcinoma Malignant neoplasm of rectum Rectal mass Encounter for interrogation of cardiac pacemaker Atrial fibrillation with rapid ventricular response Social History Social History Household Members: Spouse Housing: House Do you presently have visiting nurse or other home services: Yes Alcohol intake: unknown Comment: PATIENT BEDBOUND AT THIS TIME Patient Tobacco Use Status: Former Tobacco user Tobacco use type: Cigarette Smoked in Last 30 Days: No e-Cigarette/Vaping Use: Never Used Use of substances other than those prescribed or required for medical reasons: No Currently Displaying Signs/Symptoms of Drug Intoxication Withdrawal: No Have you been hit, kicked, punched, or otherwise hurt by someone within the past year? If so, by whom?: No Do you feel safe in your current relationship?: Yes Is there a partner from a previous relationship who is making you feel unsafe now?: No Are you made to feel afraid or neglected: No Are you DNR?: No Advance Directives: Yes Advance Directives on File: Yes Advance Directives Date on File: 11/29/22 Do you have a plan to hurt others: No Plan Recently lost weight without trying: Yes How much weight loss: 14-23 pounds Eating poorly because of decreased appetite: No Nutrition screen score: 4 Nutrition Risks: No Nutritional Risk Poor oral hygiene: No service: No Meds Allergies Allergy/AdvReac Type Severity Reaction Status Date / Time No Known Allergies [NKA] Allergy Mild NOT Verified 06/02/24 09:42 APPLICABLE Active Medications: Current Medications Acetaminophen (Acetaminophen 325 Mg Tablet) 650 mg PO Q6H PRN PRN Reason: Pain, Mild 1-3,fever,headache Amiodarone HCl (Amiodarone Hcl 200 Mg Tablet) 200 mg PO DAILY [facility] Last Admin: 06/03/24 12:21 Dose: 200 mg Calcium Carbonate (Calcium Carbonate 750 Mg Tab.Chew) 750 mg PO Q4H PRN PRN Reason: Heartburn Cholestyramine Resin (Cholestyramine (With Sugar) 4 Gm Powd.Pack) 4 gm PO DAILY [facility] Last Admin: 06/03/24 12:22 Dose: 4 gm Diltiazem HCl (Diltiazem Hcl Cd 240 Mg Cap.Er.Deg) 240 mg PO DAILY [facility]; Protocol Last Admin: 06/03/24 12:21 Dose: 240 mg Linezolid (Zyvox/D5w) 600 mg in 300 mls @ 300 mls/hr IV Q12H [facility] Last Infusion: 06/04/24 06:54 Dose: Infused Piperacillin Sod/Tazobactam (Sod 4.5 gm/ Sodium Chloride) 100 mls @ 200 mls/hr IV Q12H [facility] Last Infusion: 06/03/24 21:39 Dose: Infused Sodium Chloride (Ns) 1,000 mls @ 100 mls/hr IVCONT .Q10H [facility] Last Infusion: 06/04/24 05:49 Dose: 100 mls/hr Lactic Acid (Ammonium Lactate 12 % Lotion 226 Gm Bottle) 1 appl TOPICAL DAILY [facility]; Protocol PRN Reason: Dry Skin Magnesium Hydroxide (Milk Of Magnesia 30 Ml Oral.Susp) 30 ml PO DAILY PRN PRN Reason: Constipation Melatonin (Melatonin 3 Mg Tablet) 6 mg PO BEDTIME PRN PRN Reason: Insomnia Metoprolol Tartrate (Metoprolol Tartrate 25 Mg Tablet) 25 mg PO DAILY [facility]; Protocol Last Admin: 06/03/24 12:22 Dose: 25 mg Omeprazole (Omeprazole 20 Mg Capsule.Dr) 20 mg PO DAILY@0630 [facility] Last Admin: 06/04/24 05:35 Dose: 20 mg Ondansetron HCl (Ondansetron Hcl 4 Mg/2 Ml Vial) 4 mg IVPUSH Q8H PRN PRN Reason: Nausea and Vomiting Potassium Chloride (Potassium Chloride Packet 20 Meq Packet) 40 meq PO BID [facility] Stop: 06/04/24 09:01 Last Admin: 06/03/24 21:09 Dose: 40 meq Sodium Chloride (0.9 % Sodium Chloride Flush 3 Ml Syringe) 3 ml IVFLUSH QSHIFT [facility] Last Admin: 06/03/24 21:47 Dose: 3 ml Vancomycin HCl (Vancomycin Hcl 125 Mg Capsule) 125 mg PO Q6H [facility] Last Admin: 06/04/24 05:36 Dose: 125 mg Home Medications ?Medication ?Instructions ?Recorded ?Confirmed ?Last Taken ?Type ammonium lactate 12 % lotion 1 appl topical DAILY PRN Dry Skin 06/02/24 06/02/24 Unknown History apixaban 5 mg tablet (Eliquis) 5 mg PO BID 06/02/24 06/02/24 Unknown History cholestyramine (with sugar) 4 gram 1 ea PO DAILY 06/02/24 06/02/24 Unknown History powder for susp in a packet diltiazem HCl 240 mg 240 mg PO DAILY 06/02/24 06/02/24 Unknown History capsule,extended release 24 hr metoprolol tartrate 25 mg tablet 25 mg PO DAILY 06/02/24 06/02/24 Unknown History pantoprazole 20 mg tablet,delayed 20 mg PO DAILY@0630 06/02/24 06/02/24 Unknown History release vancomycin 125 mg capsule 125 mg PO MOWEFR@0900 06/02/24 06/02/24 Unknown History Physical Exam Vital Signs: Vital Signs: Last Vital Signs Temp 96.9 F 06/04/24 07:15 Pulse 60 06/04/24 08:10 Resp 18 06/04/24 08:10 BP 123/30 L 06/04/24 08:10 Pulse Ox 97 06/03/24 12:09 O2 Del Method Nasal Cannula 06/04/24 08:10 BMI result Body Mass Index 19.8 Const: General: cooperative, healthy appearing, comfortable and no acute distress Orientation/consciousness: patient oriented x3 HEENT: Face and sinus: Yes normal facial exam Mouth: moist mucous membranes Neck: Neck: Yes normal visual inspection, Yes full ROM and Yes trachea midline Chest: Chest palpation & inspection: normal inspection of the chest Resp: Effort & Inspection: normal respiratory effort, able to speak in complete sentences and no respiratory distress GI: Inspection: Yes normal to inspection Back/Spine/Pelvis: Cervical Spine: normal cervical lordosis Thoracic/Lumbar Spine: thoracic and lumbar spine normal to inspection Skin: General skin exam: no rashes or lesions noted Neuro: General: patient oriented x3, tone normal and moves all extremities Extrem: General: Yes normal to inspection and Yes capillary refill normal Results Labs 06/04/24 06:12 06/04/24 06:12 Labs: Abnormal lab results 06/02/24 06/03/24 06/03/24 Range/Units 12:43 08:53 08:54 WBC 33.1 H* (4.8-10.8) X10*3/uL RBC 3.59 L (4.60-5.80) X10*6/uL Hgb 11.4 L (14.0-18.0) g/dl Hct 34.9 L (42.0-52.0) % MCV (80.0-98.0) fL RDW 17.2 H (11.0-16.0) % Plt Count 19 L* (160-400) X10*3/uL Absolute Nucleated RBC 0.120 H (0.0-0.012) X10*3/uL Nucleated RBC % (auto) 0.4 H (0.0-0.2) /100WBC Neutrophils % (Manual) 84 H (45-73) % Lymphocytes % (Manual) 3 L (20-40) % Abs Neuts (Manual) 29.5 H (2.0-8.3) X10*3/uL Lymphocytes # (Manual) 1.0 L (1.2-4.9) X10*3/uL Monocytes # (Manual) 2.3 H (0.1-1.2) X10*3/uL Potassium 2.8 L* D (3.3-5.1) mmol/L Anion Gap 9 L (12-20) BUN 17 H (9-16) mg/dL Creatinine 2.84 H (0.5-1.4) mg/dL Calcium 6.9 L (8.4-10.2) mg/dL Alkaline Phosphatase 128 H 157 H (39-117) U/L Lactate Dehydrogenase 364 H (118-273) U/L Total Protein 4.5 L 4.5 L (6.5-8.0) g/dL Albumin 1.7 L 1.7 L (3.5-5.0) g/dL Stool EPEC (PCR) Detected A (Not Detect.) 06/04/24 Range/Units 06:12 WBC 27.0 H (4.8-10.8) X10*3/uL RBC 3.23 L (4.60-5.80) X10*6/uL Hgb 10.3 L (14.0-18.0) g/dl Hct 32.8 L (42.0-52.0) % MCV 101.5 H (80.0-98.0) fL RDW 17.2 H (11.0-16.0) % Plt Count 26 L D (160-400) X10*3/uL Absolute Nucleated RBC 0.040 H (0.0-0.012) X10*3/uL Nucleated RBC % (auto) (0.0-0.2) /100WBC Neutrophils % (Manual) 85 H (45-73) % Lymphocytes % (Manual) 1 L (20-40) % Abs Neuts (Manual) 24.0 H (2.0-8.3) X10*3/uL Lymphocytes # (Manual) 0.3 L (1.2-4.9) X10*3/uL Monocytes # (Manual) (0.1-1.2) X10*3/uL Potassium (3.3-5.1) mmol/L Anion Gap (12-20) BUN (9-16) mg/dL Creatinine 3.17 H (0.5-1.4) mg/dL Calcium 6.7 L (8.4-10.2) mg/dL Alkaline Phosphatase (39-117) U/L Lactate Dehydrogenase (118-273) U/L Total Protein 4.2 L (6.5-8.0) g/dL Albumin 1.6 L (3.5-5.0) g/dL Stool EPEC (PCR) (Not Detect.) Short CBC 06/03/24 06/03/24 06/04/24 Range/Units 08:53 08:54 06:12 WBC Cancelled 33.1 H* 27.0 H Hgb Cancelled 11.4 L 10.3 L Hct Cancelled 34.9 L 32.8 L Plt Count Cancelled 19 L* 26 L D BMP 06/03/24 06/04/24 08:53 06:12 Sodium 135 137 Potassium 2.8 L* D 5.0 D Chloride 101 103 Carbon Dioxide 28 25 BUN 17 H 15 Creatinine 2.84 H 3.17 H Calcium 6.9 L 6.7 L Liver Function 06/03/24 06/03/24 06/04/24 Range/Units 08:53 08:54 06:12 Total Bilirubin 0.9 0.9 0.9 (0.0-1.0) mg/dL Direct Bilirubin 0.4 (0.0-0.5) mg/dL AST 14 16 16 (5-37) U/L ALT < 6 < 6 < 6 (0-40) U/L Alkaline Phosphatase 128 H 157 H 110 (39-117) U/L Albumin 1.7 L 1.7 L 1.6 L (3.5-5.0) g/dL Urine 06/02/24 Range/Units 10:38 Urine Color BROWN Urine Appearance Turbid Urine pH 7.5 (5.0-9.0) Ur Specific Gary 1.020 (1.005-1.025) Urine Protein 300 (3+) H (Neg-Trace) mg/dL Urine Glucose (UA) Negative (Negative) mg/dL All other labs normal. Assessment and Plan (1) Acquired stricture of ureter: Status: Acute Plan No acute urologic issue Management per Infectious Disease Reconsult if new issue arises Procedures Date of Service Date of Service: 06/04/24
--- NOTE | 2024-06-04 08:27 | P.OP_ITS ---
Operative Note Operative Note Date of Service: 06/04/24 Narrative: Angiogram report from [facility] Preoperative diagnosis: Deep venous thrombosis Postoperative diagnosis: Same Procedure: 1. Ultrasound-guided right common femoral vein access 2. Inferior vena cavogram 3. Placement of inferior vena cava filter Surgeon:Carson Potts M.D., FACS, RPVI [employer] Helper:None Anesthesia: Local only Specimens:none Drains:none Estimated blood loss: Less than 10 ml Radiation dose: 1.647 mGy Implant: Bard Kay retrievable vena cava filter Indications: 78-year-old with thrombocytopenia new onset DVT. There was an inability to anticoagulate due to his thrombocytopenia. He now presents for IVC filter placement. The patient has signed the informed consent after reviewing risks, complications, benefits, and alternatives previously discussed with the patient. The patient was given the opportunity to ask any additional questions or voice any concerns. All questions were answered to the patient's satisfaction. Procedure in detail: Patient was brought to the angiography suite prior to which a time-out was called for patient identification and site verification. Bilateral groins were prepped and draped in the standard surgical fashion. Under ultrasound guidance right common femoral vein was punctured with micro puncture needle and wire. Subsequently a precision 5 Malawian sheath was then placed. [employer] wire was advanced to the level of the vena cava. Vena cavogram was then undertaken through the 5 [place]aw[place] sheath. This was a baseline study to define the variant anatomy, caval size, location and number of renal veins, and to evaluate for ileo caval thrombus. Under direct fluoroscopic guidance we exchanged out the 5 [place]awian sheath for the Bard Kay sheath. We brought the filter into position. This was then subsequently deployed. The inner cannula was then removed. Through the sheath a hand injection was performed to assess filter position. Once this was accomplished the sheath was then removed, and hemostasis was achieved with 10 minutes of direct compression. No immediate complications occurred and the patient was returned to the recovery suite with no complications Interpretation of films: 1. Ultrasound demonstrates appropriate femoral vein puncture. Image of which was saved. 2. There was no ileal caval thrombus noted 3. There are single renal veins bilaterally and the IVC is normal in caliber. There is no aberrant anatomy. 4. The filter was deployed appropriately and position below the lowest renal vein. Conclusion: 1. Successful placement of Bard Kay IVC filter 2. Anticoagulation status: Resume regular anticoagulation as indicated 4 hours post filter placement This note is constructed using voice recognition software. While every effort has been made to ensure accuracy, fish packer errors may have been included. Thank you for allowing me to participate in the care of your patient. Yours sincerely, Carson Potts MD, FACS, R.P.V.I.
[2024-06-04] MEDS: Piperacillin Sodium/Tazobactam 4.5 GM in 0.9 % Sodium Chloride 100 ML IV ×2 (08:52→20:42)
[2024-06-04] MEDS: Metoprolol Tartrate 25 MG TABLET PO (09:51)
[2024-06-04] MEDS: Amiodarone HCL 200 MG TABLET PO (09:51)
[2024-06-04] MEDS: Cholestyramine (With Sugar) 4 GM POWD.PACK PO (09:51)
[2024-06-04] MEDS: Potassium Chloride Packet 20 MEQ PACKET 40 MEQ PO (09:51)
[2024-06-04] MEDS: dilTIAZem HCL CD 240 MG CAP.ER.DEG PO (09:52)
--- NOTE | 2024-06-04 12:01 | CONS_ITS ---
DATE OF SERVICE: 06/03/2024 REASON FOR CONSULTATION: Consult requested by the medical team/ER to evaluate and help in management of patient with end-stage renal disease, on hemodialysis on Sunday, Sunday, Sunday at Dialysis Unit, who presented to the hospital with diarrhea. HISTORY OF PRESENT ILLNESS: Patient has a long medical history including BPH; history of recurrent C diff colitis; hyperlipidemia; hypertension; alcohol use disorder; mild cognitive impairment; sick sinus syndrome, status post pacemaker placement; ESRD, on hemodialysis on Sunday, Sunday, and Sunday; thrombocytopenia, who presented to the hospital for evaluation of diarrhea and perianal burning, which has been ongoing for several days. There is apparently no blood in the stools. There is no fever, chills, abdominal pain, nausea, vomiting. He reported left lower extremity swelling, which has been ongoing for 3 days. He also has a right-sided nephrostomy tube in place and apparently reported burning around the catheter site. It was supposed to be changed, but has not been done. He was admitted from 03/25 to 04/18 with complicated admissions including Klebsiella line infection, septic shock, bacteremia, treated with meropenem. He also had GI bleed at that time, requiring blood transfusion. He was on p.o. vancomycin for question of C diff colitis. In the ED, patient was hemodynamically stable and his platelet count was on the low side at 25,000. His creatinine was 4.5 with a BUN of 23. A CT of the abdomen and pelvis showed right percutaneous nephrostomy catheter in place in the collecting system. There is no obstruction. Renal consult has been requested to help with management of ESRD and for dialysis. REVIEW OF SYSTEMS: As noted above. Other system review negative. 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 PERSONAL AND SOCIAL HISTORY: Patient is bed-bound at the present time. Former tobacco user. Does not drink at the present time. Has had a history of alcohol use. No drug use. ALLERGIES: PATIENT HAS NO KNOWN DRUG ALLERGIES. MEDICATIONS: Outpatient and inpatient medications were reviewed and he is on p.o. vancomycin. PHYSICAL EXAMINATION: GENERAL: Patient is resting in the bed, awake, alert, complains of discomfort in the nephrostomy tube area and rectal area. VITAL SIGNS: Blood pressure was 120/70, pulse is 80, afebrile. HEENT: Shows pupils equal bilaterally to light. No jugular venous distention is noted. NECK: Supple. CARDIOVASCULAR SYSTEM: S1, S2 without rub. RESPIRATORY SYSTEM: Decreased in the bases. ABDOMEN: Soft, nontender. Bowel sounds are present. Nephrostomy tube was in place. EXTREMITIES: Show no edema. LABORATORY DATA: Done today; WBC is 26.6, hemoglobin 11.9, hematocrit 37.1, platelets 25. Sodium 138, potassium 4.1, chloride 102, CO2 26, BUN 23, creatinine 4.50. Liver function tests within normal limits. Albumin 1.9. IMAGING STUDY: Showed left-sided DVT. IMPRESSION AND PLAN: 1. 78-year-old male with end-stage renal disease, on hemodialysis. 2. Left lower extremity deep vein thrombosis. 3. Recent Clostridium difficile colitis. 4. Acute pancolitis. 5. Acute urinary tract infection. 6. Acute on chronic thrombocytopenia. RECOMMENDATIONS: At this juncture, medical team is treating patient with antibiotics, which include Zosyn and Zyvox. I recommend following blood cultures closely as patient has a PermCath and has had a recent line infection, p.o. vancomycin as per medical team. Hematology has seen the patient and management as per their recommendation. Patient has heparin-induced thrombocytopenia in the differential diagnosis and will hold off on all heparin during dialysis including rinsing the machine and the use of heparin for PermCath. We will use normal saline or tPA for the PermCath lock. Patient's hemoglobin level is acceptable and there is no immediate need for erythropoietin injections. In regard to nephrostomy tube, I recommend a urology evaluation and followup. Thank you for allowing me to participate in medical management of the patient. MD LINDA Carlisle/JONO / [phone]
--- NOTE | 2024-06-04 12:12 | MHC.CLN ---
F/U DIET ADVANCED TO 2 GRAM SODIUM ON 06/04. CONTINUE ENSURE CLEAR TID (720 KCALS, 24 G PROTEIN). NO PRESSURE INJURIES NOTED. CURRENT PO APPROX 50%. MONITOR PO INTAKE AND ENCOURAGE SUPPLEMENTS.
--- NOTE | 2024-06-04 12:23 | P.PNHO-ONC_ITS ---
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 Patient had prolonged hospitalization at [facility] [place] to 04/18/2024 following which he was in a half-way for 3 weeks and just got home a few days back. He says he came back to the hospital because of recurrent diarrhea as well as pain at the site of right nephrostomy tube. He says he is unable to sleep at night because of this. He had right nephrostomy tube placed in March 2024 because of disruption of distal right ureter which may have occurred during reversal of colostomy performed at [facility] as per urology. During the prolonged hospitalization in March and April 2024 patient had developed severe thrombocytopenia with platelet counts below 20 K. he also developed GI bleeding requiring 3 units PRBC transfusion. EGD showed gastritis, duodenitis and candidal esophagitis that was treated with Diflucan. 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 His Eliquis was stopped. Thrombocytopenia was felt to be multifactorial, related to sepsis with Klebsiella line infection, use of antibiotics, as well as previous alcohol use, splenomegaly. At the time of discharge his platelet counts had come up to about 85 K. During that same admission he was noted to have obstruction of the right distal ureter and right PCN was placed on 04/08/2024. Patient states that he was never diagnosed with DVT in the past. He noticed swelling of his left leg last week after being home for a few days. He denies any pleuritic chest pain, shortness of breath or cough. The left leg swelling is about the same. He denies any significant pain in the leg. He had IVC filter placed today and received platelet transfusion yesterday. Review of Systems - Neurologic Reports no additional neurologic complaints, Reports as per HPI, Reports hearing normal, Denies dizziness, Denies numbness, Denies sensory deficit, Denies weakness [facility] Medical History: Medical History (Last Updated 06/02/24 @ 14:41 by SEBASTIAN Awad) Acute renal failure Aftercare following left shoulder joint replacement surgery Atrial fibrillation Borderline hyperlipidemia BPH (benign prostatic hyperplasia) C. difficile colitis Cancer of kidney End stage renal disease EtOH dependence High cholesterol HTN (hypertension) Hypertension Ileus Inhibited sex excitement Mild cognitive impairment OA (osteoarthritis) Obesity Pacemaker Postoperative hematoma involving digestive system following digestive system procedure Recto-vesical fistula Sick sinus syndrome Sinus bradycardia UTI (urinary tract infection) Family History: Family History (Last Reviewed 06/02/24 @ 14:27 by SEBASTIAN Awad) Mother Heart problem Surgical History: Surgical History (Last Reviewed 06/02/24 @ 14:27 by SEBASTIAN Awad) Atrial fibrillation with rapid ventricular response Encounter for interrogation of cardiac pacemaker Malignant neoplasm of rectum Rectal carcinoma Rectal mass Social History: Social History (Last Reviewed 06/02/24 @ 14:27 by SEBASTIAN Awad) Living Situation History: Household Members: Spouse Housing: House Do you presently have visiting nurse or other home services: Yes Alcohol History Details: 1. How often do you have a drink containing alcohol?: a. Never AUDIT-C Alcohol total score: 0 Currently Displaying Signs/Symptoms of Alcohol Withdrawal: No Tobacco History: Patient Tobacco Use Status: Former Tobacco user Tobacco use type: Cigarette Smoked in Last 30 Days: No e-Cigarette/Vaping Use: Never Used Substance Use History: Use of substances other than those prescribed or required for medical reasons : No Currently Displaying Signs/Symptoms of Drug Intoxication Withdrawal: No Domestic Abuse History: Have you been hit, kicked, punched, or otherwise hurt by someone within the past year? If so, by whom?: No Do you feel safe in your current relationship?: Yes Is there a partner from a previous relationship who is making you feel unsafe now?: No Are you made to feel afraid or neglected: No Advance Directives: Advance Directives: Yes Advance Directives on File: Yes Advance Directives Date on File: 11/29/22 Homicidal Assessment: Do you have a plan to hurt others: No Plan Nutrition Assessment: Recently lost weight without trying: Yes How much weight loss: 14-23 pounds Eating poorly because of decreased appetite: No Nutrition screen score: 4 Nutrition Risks: No Nutritional Risk Poor oral hygiene: No Occupation Assessmet: service: No Home Medications and Allergies Current Medications: Current Medications Acetaminophen (Acetaminophen 325 Mg Tablet) 650 mg PO Q6H PRN PRN Reason: Pain, Mild 1-3,fever,headache Amiodarone HCl (Amiodarone Hcl 200 Mg Tablet) 200 mg PO DAILY [facility] Last Admin: 06/04/24 09:51 Dose: 200 mg Calcium Carbonate (Calcium Carbonate 750 Mg Tab.Chew) 750 mg PO Q4H PRN PRN Reason: Heartburn Cholestyramine Resin (Cholestyramine (With Sugar) 4 Gm Powd.Pack) 4 gm PO DAILY [facility] Last Admin: 06/04/24 09:51 Dose: 4 gm Diltiazem HCl (Diltiazem Hcl Cd 240 Mg Cap.Er.Deg) 240 mg PO DAILY [facility]; Protocol Last Admin: 06/04/24 09:52 Dose: 240 mg Linezolid (Zyvox/D5w) 600 mg in 300 mls @ 300 mls/hr IV Q12H [facility] Last Infusion: 06/04/24 06:54 Dose: Infused Piperacillin Sod/Tazobactam (Sod 4.5 gm/ Sodium Chloride) 100 mls @ 200 mls/hr IV Q12H [facility] Last Infusion: 06/04/24 09:39 Dose: Infused Sodium Chloride (Ns) 1,000 mls @ 100 mls/hr IVCONT .Q10H [facility] Last Infusion: 06/04/24 05:49 Dose: 100 mls/hr Lactic Acid (Ammonium Lactate 12 % Lotion 226 Gm Bottle) 1 appl TOPICAL DAILY PRN; Protocol PRN Reason: Dry Skin Magnesium Hydroxide (Milk Of Magnesia 30 Ml Oral.Susp) 30 ml PO DAILY PRN PRN Reason: Constipation Melatonin (Melatonin 3 Mg Tablet) 6 mg PO BEDTIME PRN PRN Reason: Insomnia Metoprolol Tartrate (Metoprolol Tartrate 25 Mg Tablet) 25 mg PO DAILY [facility]; Protocol Last Admin: 06/04/24 09:51 Dose: 25 mg Omeprazole (Omeprazole 20 Mg Capsule.Dr) 20 mg PO DAILY@0630 [facility] Last Admin: 06/04/24 05:35 Dose: 20 mg Ondansetron HCl (Ondansetron Hcl 4 Mg/2 Ml Vial) 4 mg IVPUSH Q8H PRN PRN Reason: Nausea and Vomiting Sodium Chloride (0.9 % Sodium Chloride Flush 3 Ml Syringe) 3 ml IVFLUSH QSHIFT [facility] Last Admin: 06/04/24 08:47 Dose: Not Given Vancomycin HCl (Vancomycin Hcl 125 Mg Capsule) 125 mg PO Q6H [facility] Last Admin: 06/04/24 09:52 Dose: 125 mg Home Medications ?Medication ?Instructions ?Recorded ?Confirmed ?Type ammonium lactate 12 % lotion 1 appl topical DAILY PRN Dry Skin 06/02/24 06/02/24 History apixaban 5 mg tablet (Eliquis) 5 mg PO BID 06/02/24 06/02/24 History cholestyramine (with sugar) 4 gram 1 ea PO DAILY 06/02/24 06/02/24 History powder for susp in a packet diltiazem HCl 240 mg 240 mg PO DAILY 06/02/24 06/02/24 History capsule,extended release 24 hr metoprolol tartrate 25 mg tablet 25 mg PO DAILY 06/02/24 06/02/24 History pantoprazole 20 mg tablet,delayed 20 mg PO DAILY@0630 06/02/24 06/02/24 History release vancomycin 125 mg capsule 125 mg PO MOWEFR@0900 06/02/24 06/02/24 History Allergies Allergy/AdvReac Type Severity Reaction Status Date / Time No Known Allergies [NKA] Allergy Mild NOT Verified 06/02/24 09:42 APPLICABLE Exam Vital signs: Vital Signs Temp 96.9 F 06/04/24 08:52 Pulse 61 06/04/24 08:52 Resp 16 06/04/24 08:52 BP 100/55 L 06/04/24 08:52 Pulse Ox 97 06/04/24 08:52 O2 Del Method Room Air 06/04/24 08:52 Intake & Output 06/03/24 06/04/24 06/04/24 18:59 06:59 18:59 Intake Total 1544 / 2127.333 583.333 / 2127.333 100 / 100 Output Total 200 / 400 200 / 400 Balance 1344 / 1727.333 383.333 / 1727.333 100 / 100 Urine Output (Average ml/kg/hr) 0.27 0.27 0.27 Intake: Intake, Oral Amount 480 / 660 180 / 660 Intake (Blood Product) Amount 364 / 364 Plt Aph Pas Pathreduced(E8342) 364 / 364 Unit [id number] Intake, IV Amount 700 / 1103.333 403.333 / 1103.333 100 / 100 Linezolid/D5W 600 mg In 300 ml 600 / 900 300 / 900 @ 300 mls/hr IV Q12H [facility] Rx#: [id number] Piperacillin Sodium/Tazobactam 100 / 200 100 / 200 100 / 100 4.5 gm In 0.9 % Sodium Chloride 100 ml @ 200 mls/hr IV Q12H [facility] Rx#:[id number] 0.9 % Sodium Chloride 1,000 ml 3.333 / 3.333 @ 100 mls/hr IVCONT .Q10H [facility] Rx#:[id number] Output: Output, Urine Amount 200 / 400 200 / 400 Other: NPO Yes Breakfast % Eaten 50% Lunch % Eaten 50% Eating (Feeding) Ability Independent Number of Bowel Movements 5 Urine Urinal Last Bowel Movement 06/03/24 06/04/24 Stool Bedside Commode Bedside Commode Stool Amount Moderate Moderate Stool Color Mucousy S[place]man Blood Stool Consistency Loose Weight 60.8 kg Weight 60.8 kg BMI result Body Mass Index 19.8 - Constitutional Present: no acute distress, average body habitus, chronically ill appearing - Routine HEENT Exam Head: Present: normal inspection - Routine Respiratory Exam Present: CTAB - Routine Cardiovascular Exam Cardiovascular: Present: S1, S2 - Routine Abdominal Exam Present: soft - Routine Extremities Exam Present: pedal edema - Routine Skin Exam Present: intact Data - Labs CBC & Chem 7: 06/04/24 06:12 06/04/24 06:12 Labs: Laboratory Last Values WBC 27.0 X10*3/uL (4.8-10.8) H 06/04/24 06:12 RBC 3.23 X10*6/uL (4.60-5.80) L 06/04/24 06:12 Hgb 10.3 g/dl (14.0-18.0) L 06/04/24 06:12 Hct 32.8 % (42.0-52.0) L 06/04/24 06:12 MCV 101.5 fL (80.0-98.0) H 06/04/24 06:12 MCH 31.9 pg (27.0-33.0) 06/04/24 06:12 MCHC 31.4 g/dl (31.0-36.0) 06/04/24 06:12 RDW 17.2 % (11.0-16.0) H 06/04/24 06:12 Plt Count 26 X10*3/uL (160-400) L D 06/04/24 06:12 MPV Not Reportable 06/04/24 06:12 Immature Gran % (Auto) Cancelled 06/04/24 06:12 Neut % (Auto) Cancelled 06/04/24 06:12 Lymph % (Auto) Cancelled 06/04/24 06:12 Callahan % (Auto) Cancelled 06/04/24 06:12 Eos % (Auto) Cancelled 06/04/24 06:12 Baso % (Auto) Cancelled 06/04/24 06:12 Lymph # (Auto) Cancelled 06/04/24 06:12 Callahan # (Auto) Cancelled 06/04/24 06:12 Eos # (Auto) Cancelled 06/04/24 06:12 Baso # (Auto) Cancelled 06/04/24 06:12 Abs Immat Gran (auto) Cancelled 06/04/24 06:12 Absolute Neuts (auto) Cancelled 06/04/24 06:12 Absolute Nucleated RBC 0.040 X10*3/uL (0.0-0.012) H 06/04/24 06:12 Nucleated RBC % (auto) 0.1 /100WBC (0.0-0.2) 06/04/24 06:12 Neutrophils % (Manual) 85 % (45-73) H 06/04/24 06:12 Band Neutrophils % 4 % (3-5) 06/04/24 06:12 Lymphocytes % (Manual) 1 % (20-40) L 06/04/24 06:12 Monocytes % (Manual) 7 % (2-11) 06/03/24 08:54 Metamyelocytes % 3 % 06/04/24 06:12 Myelocytes % 3 % 06/04/24 06:12 Promyelocytes % 4 % 06/04/24 06:12 Abs Neuts (Manual) 24.0 X10*3/uL (2.0-8.3) H 06/04/24 06:12 Lymphocytes # (Manual) 0.3 X10*3/uL (1.2-4.9) L 06/04/24 06:12 Monocytes # (Manual) 2.3 X10*3/uL (0.1-1.2) H 06/03/24 08:54 Metamyelocytes # 0.8 X10*3/uL 06/04/24 06:12 Myelocytes # 0.8 X10*/uL 06/04/24 06:12 Promyelocytes # 1.1 X10*3/uL 06/04/24 06:12 Toxic Vacuolation PRESENT 06/03/24 08:54 Platelet Estimate DECREASED (NORMAL) 06/04/24 06:12 Plt Morphology Comment NORMAL 06/04/24 06:12 RBC Morphology NOTED 06/04/24 06:12 Polychromasia 1+ (0-2) /OIF 06/02/24 10:33 Hypochromasia 1+ (5-14) /OIF 06/04/24 06:12 Macrocytosis 1+ (5-14) /OIF 06/04/24 06:12 Millicent Cells 3+ (>5) /OIF 06/04/24 06:12 Acanthocytes (Spur) 3+ (>5) /OIF 06/03/24 08:54 Schistocytes 2+ (3-5) /OIF 06/04/24 06:12 Smear Path Review Cancelled 06/02/24 17:45 ESR 2 MM/HR (0-15) 06/02/24 10:33 Absolute Retic 0.060 X10*6/uL (0.026-0.095) 06/02/24 10:33 Percent Retic 1.6 % (0.5-1.8) 06/02/24 10:33 Immature Retic Fraction 25.3 % (2.3-13.4) H 06/02/24 10:33 Retic Hgb Equivalent 26.8 pg (30.0-35.0) L 06/02/24 10:33 PT 15.2 SEC (10.9-12.4) H 06/02/24 17:46 INR 1.3 (0.9-1.1) H 06/02/24 17:46 APTT 39.9 SEC (26.0-36.8) H D 06/02/24 17:46 Fibrinogen 112 MG/DL (259-690) L 06/02/24 17:46 D-Dimer High Sensitivty 270 NG/ML 06/02/24 17:46 Hep-Ind Thrombocytop Com Cancelled 06/02/24 17:46 Cancelled Coag Test SEE NOTE 06/03/24 15:16 Sodium 137 mmol/L (135-145) 06/04/24 06:12 Potassium 5.0 mmol/L (3.3-5.1) D 06/04/24 06:12 Chloride 103 mmol/L (96-108) 06/04/24 06:12 Carbon Dioxide 25 mmol/L (22-29) 06/04/24 06:12 Anion Gap 14 (12-20) 06/04/24 06:12 BUN 15 mg/dL (9-16) 06/04/24 06:12 Creatinine 3.17 mg/dL (0.5-1.4) H 06/04/24 06:12 Estim Creat Clear Calc 16.7 06/04/24 06:12 Estimated GFR 19 06/04/24 06:12 Random Glucose 80 mg/dL (60-115) 06/02/24 10:33 Fasting Glucose 76 mg/dL (60-99) 06/04/24 06:12 Lactic Acid 2.8 mmol/L (0.5-2.0) H* 06/02/24 10:34 Lactic Acid F/U @ 2Hr 3.1 mmol/L (0.5-2.0) H* 06/02/24 14:38 Lactic Acid F/U @ 4Hr 2.5 mmol/L (0.5-2.0) H* 06/02/24 17:45 Calcium 6.7 mg/dL (8.4-10.2) L 06/04/24 06:12 Total Bilirubin 0.9 mg/dL (0.0-1.0) 06/04/24 06:12 Direct Bilirubin 0.4 mg/dL (0.0-0.5) 06/03/24 08:54 AST 16 U/L (5-37) 06/04/24 06:12 ALT < 6 U/L (0-40) 06/04/24 06:12 Alkaline Phosphatase 110 U/L (39-117) 06/04/24 06:12 Lactate Dehydrogenase 364 U/L (118-273) H 06/03/24 08:54 C-Reactive Protein 14.34 mg/dL (< or = 0.50) H 06/02/24 10:33 Total Protein 4.2 g/dL (6.5-8.0) L 06/04/24 06:12 Albumin 1.6 g/dL (3.5-5.0) L 06/04/24 06:12 Urine Color BROWN 06/02/24 10:38 Urine Appearance Turbid 06/02/24 10:38 Urine pH 7.5 (5.0-9.0) 06/02/24 10:38 Ur Specific [place] 1.020 (1.005-1.025) 06/02/24 10:38 Urine Protein 300 (3+) mg/dL (Neg-Trace) H 06/02/24 10:38 Urine Glucose (UA) Negative mg/dL (Negative) 06/02/24 10:38 Urine Ketones Trace mg/dL (Negative) 06/02/24 10:38 Urine Blood Large (3+) (Negative) H 06/02/24 10:38 Urine Nitrite Positive (Negative) H 06/02/24 10:38 Ur Leukocyte Esterase Large (3+) (Negative) H 06/02/24 10:38 Urine RBC 11-20 /HPF (0-2) H 06/02/24 10:38 Urine WBC >50 /HPF (0-5) H 06/02/24 10:38 Urine WBC Clumps Present 06/02/24 10:38 Ur Squamous Epith Cells 0-2 /HPF (0-2) 06/02/24 10:38 Urine Bacteria 4+ (None Seen) 06/02/24 10:38 Hyaline Casts 0-2 /LPF (0-2) 06/02/24 10:38 Stool Occult Blood POSITIVE (NEGATIVE) 06/02/24 10:57 Stl C. cayetanensis PCR Not Detected (Not Detect.) 06/02/24 12:43 Stool Rotavirus A PCR Not Detected (Not Detect.) 06/02/24 12:43 Stl Adenov F 40/41 PCR Not Detected (Not Detect.) 06/02/24 12:43 Stool Astrovirus (PCR) Not Detected (Not Detect.) 06/02/24 12:43 Stool Campylobacter PCR Not Detected (Not Detect.) 06/02/24 12:43 Stool Cryptosporidium PCR Not Detected (Not Detect.) 06/02/24 12:43 Stl Sh Tox Pr E STEC PCR Not Detected (Not Detect.) 06/02/24 12:43 Stool E coli O157 PCR Not applicable (Not Detect.) 06/02/24 12:43 Stl Enterotoxigenic E PCR Not Detected (Not Detect.) 06/02/24 12:43 Stool EPEC (PCR) Detected (Not Detect.) A 06/02/24 12:43 Stool EAEC (PCR) Not Detected (Not Detect.) 06/02/24 12:43 Stl E. histolytica PCR Not Detected (Not Detect.) 06/02/24 12:43 Stool Giardia Lamblia PCR Not Detected (Not Detect.) 06/02/24 12:43 Stl P. shigelloides PCR Not Detected (Not Detect.) 06/02/24 12:43 Stool Salmonella PCR Not Detected (Not Detect.) 06/02/24 12:43 Stool Sapovirus (PCR) Not Detected (Not Detect.) 06/02/24 12:43 Stl Shigella/EIEC PCR Not Detected (Not Detect.) 06/02/24 12:43 St Y.enterocolitica PCR Not Detected (Not Detect.) 06/02/24 12:43 Stool Vibrio (PCR) Not Detected (Not Detect.) 06/02/24 12:43 Stl Vibrio cholerae PCR Not Detected (Not Detect.) 06/02/24 12:43 Stl Norovirus GI/GII PCR Not Detected (Not Detect.) 06/02/24 12:43 Heparin Dep Plt Ab OD Cancelled 06/02/24 17:46 Hep-Induced Plt Ab Carmen Cancelled 06/02/24 17:46 C. difficile Tox B Gene POSITIVE (Negative) A* 06/02/24 12:43 C. difficile Toxin A&B Positive (Negative) A* 06/02/24 12:43 C. difficile Interpret SEE NOTE 06/02/24 12:43 Blood Type A Positive 06/03/24 10:55 Antibody Screen NEGATIVE 06/03/24 10:55 Assessment and Plan Patient Active problem list reviewed?: Yes (1) Left leg DVT Status: Acute Assessment and plan: 1. This is a 78-year-old male with multiple medical problems and complicated medical history who is now admitted for recurrent C diff colitis and left lower extremity DVT. Left lower extremity ultrasound showed extensive DVT extending from calf veins into popliteal, femoral and proximal deep femoral and common femoral veins. CT abdomen/pelvis without contrast shows right percutaneous nephrostomy catheter in place, air in the collecting system, probably iatrogenic, infectious or fistula. Indeterminate exophytic lesion of left kidney. Ward colitis with indeterminate soft tissue density with air just below aortic bifurcation, fistulous process can not be excluded. He noticed swelling in his left leg since 05/31/2024. He says he was not taking Eliquis since he left the hospital on April 18. Unfortunately he has developed recurrent thrombocytopenia with platelet counts of 25 K. he has leukocytosis with WBC count of 26.6 with toxic vacuolation, hemoglobin returned to his baseline of 11.9 gram/dL. He is afebrile, blood and urine cultures are pending. He has been started on Zosyn, linezolid, vancomycin and Flagyl. Cause of DVT is probably prolonged hospitalization for over a month and not being on anticoagulation/prophylaxis. Heparin induced thrombocytopenia is also in the differential as he has had ongoing exposure to heparin during dialysis and he has had greater than 50% drop in platelet counts since April. However it is difficult to ascertain the timeline and exposure to heparin. This could also explain thrombosis. HIT assay is pending. Cause of drop in platelet count could also be DIC because of sepsis. He has mild elevation of PT/PTT and decline in fibrinogen level. He received platelet transfusion yesterday and underwent IVC filter placement today. For his left lower extremity DVT, anticoagulation is needed. If platelet counts come at least above 30,000, he could be started on low-dose anticoagulation with argatroban until HIT assay comes back. On exam, his left foot remains warm, pulses present. - Time Spent With Patient Time Spent with Patient (in minutes): 15 Additional Coding: - Additional E/M codes Complex E/M visit Add On: CPT G2211
--- NOTE | 2024-06-04 13:23 | MHC.CM.PN ---
EMR REVIEWED AND PER MD ROUNDS, PT TO HAVE IVC FILTER PLACED TODAY. CM WILL CONTINUE TO FOLLOW FOR ANY CHANGE TO DC PLAN/NEEDS.
--- NOTE | 2024-06-04 15:54 | P.PNIM_ITS ---
Subjective Subjective Date of Service: 06/04/24 Interval History: Successful placement of IVC filter without issue. Percutaneous drain removed by IR without incident. No acute issues overnight Review of Systems Denies chest pain Denies shortness of breath Denies nausea vomiting diarrhea Denies fever chills Physical Exam 2 Vital Signs: Vital Signs: Last Vital Signs Temp 96.9 F 06/04/24 15:15 Pulse 60 06/04/24 15:15 Resp 15 06/04/24 15:15 BP 95/48 L 06/04/24 15:15 Pulse Ox 97 06/04/24 08:52 O2 Del Method Room Air 06/04/24 08:52 BMI result Body Mass Index 19.8 Const: Other: Awake alert ill-appearing Resp: Other: Clear to auscultation bilaterally no rales rhonchi or wheezes Cardio: Other: No S4; positive S1-S2; no S3 murmurs rubs or gallops GI: Other: Soft nontender nondistended normoactive bowel sounds : Other: Right percutaneous nephrostomy tube. Site clean dry and intact Extrem: Other: No edema bilaterally Objective Data Active Medications Acetaminophen (Acetaminophen 325 Mg Tablet) 650 mg PO Q6H PRN PRN Reason: Pain, Mild 1-3,fever,headache Amiodarone HCl (Amiodarone Hcl 200 Mg Tablet) 200 mg PO DAILY [facility] Last Admin: 06/04/24 09:51 Dose: 200 mg Documented By: FABY Calcium Carbonate (Calcium Carbonate 750 Mg Tab.Chew) 750 mg PO Q4H PRN PRN Reason: Heartburn Cholestyramine Resin (Cholestyramine (With Sugar) 4 Gm Powd.Pack) 4 gm PO DAILY [facility] Last Admin: 06/04/24 09:51 Dose: 4 gm Documented By: FABY Diltiazem HCl (Diltiazem Hcl Cd 240 Mg Cap.Er.Deg) 240 mg PO DAILY [facility]; Protocol Last Admin: 06/04/24 09:52 Dose: 240 mg Documented By: FABY Linezolid (Zyvox/D5w) 600 mg in 300 mls @ 300 mls/hr IV Q12H [facility] Last Infusion: 06/04/24 06:54 Dose: Infused Documented By: FABY Piperacillin Sod/Tazobactam (Sod 4.5 gm/ Sodium Chloride) 100 mls @ 200 mls/hr IV Q12H [facility] Last Infusion: 06/04/24 09:39 Dose: Infused Documented By: FABY Sodium Chloride (Ns) 1,000 mls @ 100 mls/hr IVCONT .Q10H [facility] Last Admin: 06/04/24 15:29 Dose: 100 mls/hr Documented By: FABY Lactic Acid (Ammonium Lactate 12 % Lotion 226 Gm Bottle) 1 appl TOPICAL DAILY PRN; Protocol PRN Reason: Dry Skin Magnesium Hydroxide (Milk Of Magnesia 30 Ml Oral.Susp) 30 ml PO DAILY PRN PRN Reason: Constipation Melatonin (Melatonin 3 Mg Tablet) 6 mg PO BEDTIME PRN PRN Reason: Insomnia Metoprolol Tartrate (Metoprolol Tartrate 25 Mg Tablet) 25 mg PO DAILY [facility]; Protocol Last Admin: 06/04/24 09:51 Dose: 25 mg Documented By: FABY Omeprazole (Omeprazole 20 Mg Capsule.) 20 mg PO DAILY@0630 [facility] Last Admin: 06/04/24 05:35 Dose: 20 mg Documented By: STEVEN Ondansetron HCl (Ondansetron Hcl 4 Mg/2 Ml Vial) 4 mg IVPUSH Q8H PRN PRN Reason: Nausea and Vomiting Sodium Chloride (0.9 % Sodium Chloride Flush 3 Ml Syringe) 3 ml IVFLUSH QSHIFT [facility] Last Admin: 06/04/24 08:47 Dose: Not Given Documented By: FABY Non-Admin Reason: IV Running Vancomycin HCl (Vancomycin Hcl 125 Mg Capsule) 125 mg PO Q6H [facility] Last Admin: 06/04/24 15:29 Dose: 125 mg Documented By: FABY Labs 06/04/24 06:12 06/04/24 06:12 Labs: Laboratory Results - last 24 hr 06/04/24 06:12 MCV 101.5 H MCH 31.9 MCHC 31.4 RDW 17.2 H Plt Count 26 L D MPV Not Reportable Immature Gran % (Auto) Cancelled Neut % (Auto) Cancelled Lymph % (Auto) Cancelled [place] % (Auto) Cancelled Eos % (Auto) Cancelled Baso % (Auto) Cancelled Lymph # (Auto) Cancelled [place] # (Auto) Cancelled Eos # (Auto) Cancelled Baso # (Auto) Cancelled Abs Immat Gran (auto) Cancelled Absolute Neuts (auto) Cancelled Absolute Nucleated RBC 0.040 H Nucleated RBC % (auto) 0.1 Neutrophils % (Manual) 85 H Band Neutrophils % 4 Lymphocytes % (Manual) 1 L Metamyelocytes % 3 Myelocytes % 3 Promyelocytes % 4 Abs Neuts (Manual) 24.0 H Lymphocytes # (Manual) 0.3 L Metamyelocytes # 0.8 Myelocytes # 0.8 Promyelocytes # 1.1 Platelet Estimate DECREASED Plt Morphology Comment NORMAL RBC Morphology NOTED Hypochromasia 1+ (5-14) Macrocytosis 1+ (5-14) Millicent Cells 3+ (>5) Schistocytes 2+ (3-5) Anion Gap 14 Estim Creat Clear Calc 16.7 Estimated GFR 19 Fasting Glucose 76 Calcium 6.7 L Total Bilirubin 0.9 AST 16 ALT < 6 Alkaline Phosphatase 110 Total Protein 4.2 L Albumin 1.6 L Microbiology Microbiology Results: Microbiology 06/02/24 10:35 Blood Culture - Preliminary Blood - Venous No growth after 48 hours. 06/02/24 10:34 Blood Culture - Preliminary Blood - Venous No growth after 48 hours. 06/02/24 17:46 Blood Culture - Preliminary Blood - Central Line No growth after 24 hours. Assessment and Plan (1) Left leg DVT: Status: Acute (2) Thrombocytopenia: Status: Acute (3) Recurrent Clostridioides difficile diarrhea: Status: Acute Plan 78-year-old male with history of BPH, recurrent C diff colitis, hyperlipidemia, hypertension, history of alcohol use disorder, mild cognitive impairments, sick sinus syndrome s/p pacemaker placement, ESRD on HD MWF, chronic thrombocytopenia admitted for pancolitis and catheter associated UTI 1.Acute pancolitis/CDiff positive -CDiff positive -vancomycin p.o. as ordered along with IV metronidazole -WBCs improving 2.Acute UTI -continue linezolid as ordered (3)History VRE UTI. -percutaneous nephrostomy tube removed earlier today 3. Extensive DVT left lower extremity -successful IVC filter this a.m. -follow up platelets. 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 Complex hemorrhagic exophytic lesion of the left kidney;Dilation of the right pelvis and calyceal system possibly related to blood Plavix versus purulent material versus neoplasm) SCPs Full code Requires ongoing hospitalization for IV antibiotics to treat empirically catheter line infection and to manage DVT in the backdrop of thrombocytopenia which will require specialized intervention and consultation Quality Stroke Does the patient have a stroke diagnosis?: No VTE Prior VTE?: No VTE Risk Level:: Medical - moderate - high VTE Device Contraindication: N/A - Device Ordered VTE Drug Contraindication: Treatment Not Indicated
[2024-06-04] MEDS: 0.9 % Sodium Chloride Flush 3 ML SYRINGE IVFLUSH ×2 (17:03→20:43)
--- NOTE | 2024-06-04 18:50 | P.CDIM_ITS ---
PROVIDER RESPONSE TEXT: To clarify, the appropriate diagnosis supported by the clinical indicators: Cachexia QUERY TEXT: PHYSICIAN'S DOCUMENTATION REQUEST Date of Query: 06/04/2024 02:05 PM EDT Patient Name: Mehran Ku Admit Date: 06/02/2024 Dear Lorenzo Horner DO, A review of the medical record indicates additional documentation may be needed. Please review below and update the documentation accordingly. Clinical Indicators: Height: ( ) 5'9 Weight: ( ) 60.8kg BMI: ( ) 19.8 Other Clinical Notes Supporting Significance of the BMI: Per Nutritional Risk Assessment 06/03/24: on therapeutic diet, oral intake less than 50% x5 days unplanned weight loss greater than 10% 6 months mild depletion triceps, mild depletion clavicle patient is moderately malnourished If possible, please provide an associated diagnosis related to the abnormal BMI, such as: Underweight Weight loss Cachexia Anorexia Mild protein calorie malnutrition Other (explain) Clinically unable to determine (explain) Thank you, Selina Corral RN Use of terms such as suspected, likely, concern for, or probable (associated with a specific diagnosi s that is being evaluated, monitored, or treated as if it exists) are acceptable and can be coded in the inpatient se tting, when documented at the time of discharge. Please use your independent medical judgment in providing your response. THIS QUERY IS PART OF THE PERMANENT MEDICAL RECORD
[2024-06-05] VITALS (9 sets, daily range): BP systolic 98–138; BP diastolic 53–69; PULSE 60–81; RESP 16–20; TEMP 36.1–36.7; O2SAT 94–95
[2024-06-05] MEDS: vancomycin HCL 125 MG CAPSULE PO ×4 (03:15→23:13)
[2024-06-05] MEDS: 0.9 % Sodium Chloride 1,000 ML 100 ML IVCONT (03:15)
[2024-06-05] MEDS: Linezolid/D5W 600 MG/300 ML PIGGYBACK 300 MG IV ×2 (05:34→17:48)
[2024-06-05] MEDS: Omeprazole 20 MG CAPSULE.DR PO (05:35)
--- NOTE | 2024-06-05 09:20 | P.PNVS_ITS ---
Subjective Subjective Date of Service: 06/05/24 Interval history: Mehran is doing well this morning; I found him in the dialysis suite. He states he is feeling ok. He denies any pain in the groin, abd pain, diff breathing, shortness of breath, and CP. Physical Exam Vital Signs: Vital Signs: Last Vital Signs Temp 97.3 F 06/04/24 19:36 Pulse 60 06/04/24 19:36 Resp 18 06/04/24 19:36 BP 108/54 L 06/04/24 19:36 Pulse Ox 96 06/04/24 19:36 O2 Del Method Room Air 06/04/24 19:36 BMI result Body Mass Index 19.8 Const: General: comfortable and no acute distress Orientation/consciousness: patient oriented x3 HEENT: Ears: hearing grossly normal bilaterally Resp: Effort & Inspection: normal respiratory effort and able to speak in complete sentences Auscultation: clear to auscultation bilaterally Cardio: Rate: regular rate Rhythm: regular rhythm Heart sounds: S1 norm al heart sound present and S2 normal heart sound present Bruits: no abdominal aortic bruits, no carotid bruits, no femoral bruits and no renal bruits GI: Palpation (GI): No Abdominal aortic bruit present : Other: Right groin: C/D/I, no drainage or bleeding noted. Neuro: General: patient oriented x3 Cranial nerves: Yes CN's II-XII intact bilaterally Progress Note: A&P Assessment and plan (1) Left leg DVT: Status: Acute Assessment and Plan: Mehran is s/p IVC filter placement yesterday. He has been doing well and is currently at dialysis. We recommend keeping the groin clean and dry. We will continue to monitor. If there are any questions or concerns, please do not hesitate to reach out to us. Time Spent With Patient Time: Total time managing care of this patient today ____ minutes. Procedures Date of Service Date of Service: 06/05/24 Quality Stroke Does the patient have a stroke diagnosis?: No VTE Prior VTE?: No VTE Risk Level:: Medical - moderate - high VTE Device Contraindication: N/A - Device Ordered VTE Drug Contraindication: Treatment Not Indicated
[2024-06-05 09:24] LABS: Hematocrit 30.8 % (42.0-52.0); Mean Corpuscular HGB Conc 32.5 g/dl (31.0-36.0); Mean Corpuscular Hemoglobin 31.7 pg (27.0-33.0); Mean Corpuscular Volume 97.8 fL (80.0-98.0); NRBC Pct Auto 0.1 /100WBC (0.0-0.2); Red Blood Count 3.15 X10*6/uL (4.60-5.80); Red Cell Distribution Width 17.6 % (11.0-16.0); White Blood Count 20.5 X10*3/uL (4.8-10.8)
[2024-06-05 09:26] LABS: Platelet Count 25 X10*3/uL (160-400)
[2024-06-05 09:42] LABS: Alanine Aminotransferase < 6 U/L (0-40); Albumin Level 1.5 g/dL (3.5-5.0); Alkaline Phosphatase 130 U/L (39-117); Aspartate Amino Transferase 15 U/L (5-37); Bilirubin Total 0.7 mg/dL (0.0-1.0); Calcium 6.8 mg/dL (8.4-10.2); Glucose Fasting 70 mg/dL (60-99); Total Protein 4.1 g/dL (6.5-8.0)
[2024-06-05 09:58] LABS: Anion Gap 10 (12-20); Blood Urea Nitrogen 6 mg/dL (9-16); Carbon Dioxide 26 mmol/L (22-29); Chloride 104 mmol/L (96-108); Creatinine Clr Calc Pharmacy 42.5; Estimated Glomerular Filt Rate 56; Sodium 137 mmol/L (135-145)
[2024-06-05 10:24] LABS: D Dimer High Sensitivity 400 NG/ML
[2024-06-05 10:25] LABS: INTERNATIONAL NORM RATIO 1.2 (0.9-1.1); Prothrombin Time 14.4 SEC (10.9-12.4)
[2024-06-05] MEDS: Cholestyramine (With Sugar) 4 GM POWD.PACK PO (10:28)
[2024-06-05] MEDS: Amiodarone HCL 200 MG TABLET PO (10:32)
[2024-06-05] MEDS: Piperacillin Sodium/Tazobactam 4.5 GM in 0.9 % Sodium Chloride 100 ML IV ×2 (10:33→20:42)
[2024-06-05] MEDS: 0.9 % Sodium Chloride Flush 3 ML SYRINGE IVFLUSH ×3 (10:33→23:14)
[2024-06-05 10:35] LABS: Fibrinogen 100 MG/DL (259-690)
[2024-06-05 11:11] LABS: Atypical Lymph Absolute Manual 1.2 x10*3/uL; Atypical Lymphs Percent Manual 6 % (0-6); Band Neutrophils Percent 4 % (3-5); Eosinophils Absolute Manual 0.2 X10*3/uL (0.0-0.4); Eosinophils Percent Manual 1 % (0-4); Lymphocytes Percent Manual 5 % (20-40); Metamyelocytes Absolute 0.8 X10*3/uL; Metamyelocytes Percent 4 %; Monocytes Absolute Manual 1.6 X10*3/uL (0.1-1.2); Monocytes Percent Manual 8 % (2-11); Neutrophils Absolute Manual 15.6 X10*3/uL (2.0-8.3); Neutrophils Percent Manual 72 % (45-73)
[2024-06-05 11:14] LABS: RBC Morphology NOTED
[2024-06-05 11:15] LABS: Burr Cells 3+ (>5) /OIF; Hypochromasia 1+ (5-14) /OIF; Macrocytosis 1+ (5-14) /OIF; Platelet Estimate DECREASED (NORMAL); Platelet Morphology Comment NORMAL; Schistocytes 2+ (3-5) /OIF
--- NOTE | 2024-06-05 11:42 | P.PNNP_ITS ---
Subjective Subjective Date of Service: 06/05/24 Principal diagnosis: ESRD Interval history: Seen on HD Comfortable C/o Dizziness s/p IVC filter placement . R PCN removed by IR without incident. No acute issues overnight Physical Exam 2 Vital Signs: Vital Signs: Last Vital Signs Temp 97.4 F 06/05/24 10:31 Pulse 74 06/05/24 10:31 Resp 16 06/05/24 10:31 BP 98/58 L 06/05/24 10:31 Pulse Ox 94 06/05/24 10:31 O2 Del Method Room Air 06/05/24 10:31 BMI result Body Mass Index 19.8 Const: General: comfortable and no acute distress O rientation/consciousness: patient oriented x3 HEENT: Ears: hearing grossly normal bilaterally Resp: Effort & Inspection: normal respiratory effort and able to speak in complete sentences Auscultation: clear to auscultation bilaterally Cardio: Rate: regular rate Rhythm: regular rhythm Heart sounds: S1 normal heart sound present and S2 normal heart sound present Bruits: no abdominal aortic bruits, no carotid bruits, no femoral bruits and no renal bruits GI: Palpation (GI): No Abdominal aortic bruit present : Other: Right groin: C/D/I, no drainage or bleeding noted. Neuro: General: patient oriented x3 Cranial nerves: Yes CN's II-XII intact bilaterally Objective Data Labs 06/05/24 08:28 06/05/24 08:28 Labs: Laboratory Results - last 24 hr 06/05/24 08:28 WBC 20.5 H RBC 3.15 L Hgb 10.0 L Hct 30.8 L MCV 97.8 MCH 31.7 MCHC 32.5 RDW 17.6 H Plt Count 25 L MPV Not Reportable Immature Gran % (Auto) Cancelled Neut % (Auto) Cancelled Lymph % (Auto) Cancelled [place] % (Auto) Cancelled Eos % (Auto) Cancelled Baso % (Auto) Cancelled Lymph # (Auto) Cancelled [place] # (Auto) Cancelled Eos # (Auto) Cancelled Baso # (Auto) Cancelled Abs Immat Gran (auto) Cancelled Absolute Neuts (auto) Cancelled Absolute Nucleated RBC 0.020 H Nucleated RBC % (auto) 0.1 Neutrophils % (Manual) 72 Band Neutrophils % 4 Lymphocytes % (Manual) 5 L Atypical Lymphs % (Man) 6 Monocytes % (Manual) 8 Eosinophils % (Manual) 1 Metamyelocytes % 4 Abs Neuts (Manual) 15.6 H Lymphocytes # (Manual) 1.0 L Atyp Lymphs # (Manual) 1.2 Monocytes # (Manual) 1.6 H Eosinophils # (Manual) 0.2 Metamyelocytes # 0.8 Platelet Estimate DECREASED Plt Morphology Comment NORMAL RBC Morphology NOTED Hypochromasia 1+ (5-14) Macrocytosis 1+ (5-14) [place] Cells 3+ (>5) Schistocytes 2+ (3-5) PT 14.4 H INR 1.2 H Fibrinogen 100 L* D-Dimer High Sensitivty 400 Sodium 137 Potassium 3.0 L D Chloride 104 Carbon Dioxide 26 Anion Gap 10 L BUN 6 L Creatinine 1.25 Estim Creat Clear Calc 42.5 Estimated GFR 56 Fasting Glucose 70 Calcium 6.8 L Total Bilirubin 0.7 AST 15 ALT < 6 Alkaline Phosphatase 130 H Total Protein 4.1 L Albumin 1.5 L Microbiology Microbiology Results: Microbiology 06/02/24 17:46 Blood - Central Line Blood Culture - Preliminary No growth after 48 hours. 06/02/24 10:35 Blood - Venous Blood Culture - Preliminary No growth after 48 hours. 06/02/24 10:34 Blood - Venous Blood Culture - Preliminary No growth after 48 hours. 06/02/24 Unknown Urine Other - Nephrostomy Urine Culture - Final Procedures Date of Service Date of Service: 06/05/24 Assessment & Plan Assessment and plan (1) ESRD (end stage renal disease) on dialysis: Status: Acute (2) End stage renal disease: Status: Resolved (3) Anemia: Status: Inactive Plan ESRD on HD - at [facility] via PC Admitted with L Lower ext DVT/ Ward colitis sepsis Klebsiella bacteremia in the past s/p new dialysis tunnelled catheter- last admission CT abdomen unchanged c/w right-sided hydronephrosis, complex hemorrhagic exophytic lesion nephrogenic anemia Thrombocytopenia ? HIT REC Usual HD MWF Continue HD today and follow TTS schedule in hospital - Can be changed to MWF when he gets discharged NO HEPARIN to prime machine OR TO LOCK PERMCATH - Will use NS - D/w HD nurse in detail again today Hematology f/u - s/p IVC filterplacemnet Antibiotics as per medical team No Need for EPO Urology has seen pt- PCN removed Re antibiotics - Pt on Linzolid and Zosyn Vital Signs: Vital Signs: Last Vital Signs Temp 96.9 F 06/04/24 15:15 Pulse 60 06/04/24 15:15 Resp 15 06/04/24 15:15 BP 95/48 L 06/04/24 15:15 Pulse Ox 97 06/04/24 08:52 O2 Del Method Room Air 06/04/24 08:52 BMI result Body Mass Index 19.8 Const: Other: Awake alert ill-appearing Resp: Other: Clear to auscultation bilaterally no rales rhonchi or wheezes Cardio: Other: No S4; positive S1-S2; no S3 murmurs rubs or gallops GI: Other: Soft nontender nondistended normoactive bowel sounds : Other: Right percutaneous nephrostomy tube. Site clean dry and intact Extrem: Other: No edema bilaterally Labs 06/04/24 06:12 06/04/24 06:12 Labs: Laboratory Results - last 24 hr 06/04/24 06:12 MCV 101.5 H MCH 31.9 MCHC 31.4 RDW 17.2 H Plt Count 26 L D MPV Not Reportable Immature Gran % (Auto) Cancelled Neut % (Auto) Cancelled Lymph % (Auto) Cancelled [place] % (Auto) Cancelled Eos % (Auto) Cancelled Baso % (Auto) Cancelled Lymph # (Auto) Cancelled [place] # (Auto) Cancelled Eos # (Auto) Cancelled Baso # (Auto) Cancelled Abs Immat Gran (auto) Cancelled Absolute Neuts (auto) Cancelled Absolute Nucleated RBC 0.040 H Nucleated RBC % (auto) 0.1 Neutrophils % (Manual) 85 H Band Neutrophils % 4 Lymphocytes % (Manual) 1 L Metamyelocytes % 3 Myelocytes % 3 Promyelocytes % 4 Abs Neuts (Manual) 24.0 H Lymphocytes # (Manual) 0.3 L Metamyelocytes # 0.8 Myelocytes # 0.8 Promyelocytes # 1.1 Platelet Estimate DECREASED Plt Morphology Comment NORMAL RBC Morphology NOTED Hypochromasia 1+ (5-14) Macrocytosis 1+ (5-14) [place] Cells 3+ (>5) Schistocytes 2+ (3-5) Anion Gap 14 Estim Creat Clear Calc 16.7 Estimated GFR 19 Fasting Glucose 76 Calcium 6.7 L Total Bilirubin 0.9 AST 16 ALT < 6 Alkaline Phosphatase 110 Total Protein 4.2 L Albumin 1.6 L Time Spent With Patient Time: Total time managing care of this patient today ____ minutes. Progress Note: Quality Stroke Does the patient have a stroke diagnosis?: No
[2024-06-05] MEDS: Potassium Chloride Packet 20 MEQ PACKET PO (12:06)
--- NOTE | 2024-06-05 14:48 | P.PNHO-ONC_ITS ---
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 [place] [facility] [place]18[place] following which he was in a usp for 3 weeks and just got home a few days back. He says he came back to the hospital because of recurrent diarrhea as well as pain at the site of right nephrostomy tube. He says he is unable to sleep at night because of this. He had right nephrostomy tube placed in March 2024 because of disruption of distal right ureter which may have occurred during reversal of colostomy performed at [facility] as per urology. During the prolonged hospitalization in March and April 2024 patient had developed severe thrombocytopenia with platelet counts below 20 K. he also developed GI bleeding requiring 3 units PRBC transfusion. EGD showed gastritis, duodenitis and candidal esophagitis that was treated with Diflucan. 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 His Eliquis was stopped. Thrombocytopenia was felt to be multifactorial, related to sepsis with Klebsiella line infection, use of antibiotics, as well as previous alcohol use, splenomegaly. At the time of discharge his platelet counts had come up to about 85 K. During that same admission he was noted to have obstruction of the right distal ureter and right PCN was placed on 04/08/2024. Patient states that he was never diagnosed with DVT in the past. He noticed swelling of his left leg last week after being home for a few days. He denies any pleuritic chest pain, shortness of breath or cough. The left leg swelling is about the same. He denies any significant pain in the leg. He had IVC filter placed and received 1 unit platelet transfusion. There was some bleeding according to the patient today after he moved his bowel. He says he was straining at stool. Denies any worsening pain of his left foot. Review of Systems - Neurologic Reports no additional neurologic complaints, Reports as per HPI, Reports hearing normal, Denies dizziness, Denies numbness, Denies sensory deficit, Denies weakness [facility] Medical History: Medical History (Last Updated 06/02/24 @ 14:41 by SEBASTIAN Awad) Acute renal failure Aftercare following left shoulder joint replacement surgery Atrial fibrillation Borderline hyperlipidemia BPH (benign prostatic hyperplasia) C. difficile colitis Cancer of kidney End stage renal disease EtOH dependence High cholesterol HTN (hypertension) Hypertension Ileus Inhibited sex excitement Mild cognitive impairment OA (osteoarthritis) Obesity Pacemaker Postoperative hematoma involving digestive system following digestive system procedure Recto-vesical fistula Sick sinus syndrome Sinus bradycardia UTI (urinary tract infection) Family History: Family History (Last Reviewed 06/02/24 @ 14:27 by SEBASTIAN Awad) Mother Heart problem Surgical History: Surgical History (Last Reviewed 06/02/24 @ 14:27 by SEBASTIAN Awad) Atrial fibrillation with rapid ventricular response Encounter for interrogation of cardiac pacemaker Malignant neoplasm of rectum Rectal carcinoma Rectal mass Social History: Social History (Last Reviewed 06/02/24 @ 14:27 by SEBASTIAN Awad) Living Situation History: Household Members: Spouse Housing: House Do you presently have visiting nurse or other home services: Yes Alcohol History Details: 1. How often do you have a drink containing alcohol?: a. Never AUDIT-C Alcohol total score: 0 Currently Displaying Signs/Symptoms of Alcohol Withdrawal: No Tobacco History: Patient Tobacco Use Status: Former Tobacco user Tobacco use type: Cigarette Smoked in Last 30 Days: No e-Cigarette/Vaping Use: Never Used Substance Use History: Use of substances other than those prescribed or required for medical reasons : No Currently Displaying Signs/Symptoms of Drug Intoxication Withdrawal: No Domestic Abuse History: Have you been hit, kicked, punched, or otherwise hurt by someone within the past year? If so, by whom?: No Do you feel safe in your current relationship?: Yes Is there a partner from a previous relationship who is making you feel unsafe now?: No Are you made to feel afraid or neglected: No Advance Directives: Advance Directives: Yes Advance Directives on File: Yes Advance Directives Date on File: 11/29/22 Homicidal Assessment: Do you have a plan to hurt others: No Plan Nutrition Assessment: Recently lost weight without trying: Yes How much weight loss: 14-23 pounds Eating poorly because of decreased appetite: No Nutrition screen score: 4 Nutrition Risks: No Nutritional Risk Poor oral hygiene: No Occupation Assessmet: service: No Home Medications and Allergies Current Medications: Current Medications Acetaminophen (Acetaminophen 325 Mg Tablet) 650 mg PO Q6H PRN PRN Reason: Pain, Mild 1-3,fever,headache Amiodarone HCl (Amiodarone Hcl 200 Mg Tablet) 200 mg PO DAILY [facility] Last Admin: 06/05/24 10:32 Dose: 200 mg Calcium Carbonate (Calcium Carbonate 750 Mg Tab.Chew) 750 mg PO Q4H PRN PRN Reason: Heartburn Cholestyramine Resin (Cholestyramine (With Sugar) 4 Gm Powd.Pack) 4 gm PO DAILY [facility] Last Admin: 06/05/24 10:28 Dose: 4 gm Diltiazem HCl (Diltiazem Hcl Cd 240 Mg Cap.Er.Deg) 240 mg PO DAILY [facility]; Protocol Last Admin: 06/05/24 10:33 Dose: Not Given Linezolid (Zyvox/D5w) 600 mg in 300 mls @ 300 mls/hr IV Q12H [facility] Last Infusion: 06/05/24 06:35 Dose: Infused Piperacillin Sod/Tazobactam (Sod 4.5 gm/ Sodium Chloride) 100 mls @ 200 mls/hr IV Q12H [facility] Last Infusion: 06/05/24 11:08 Dose: Infused Lactic Acid (Ammonium Lactate 12 % Lotion 226 Gm Bottle) 1 appl TOPICAL DAILY PRN; Protocol PRN Reason: Dry Skin Magnesium Hydroxide (Milk Of Magnesia 30 Ml Oral.Susp) 30 ml PO DAILY PRN PRN Reason: Constipation Melatonin (Melatonin 3 Mg Tablet) 6 mg PO BEDTIME PRN PRN Reason: Insomnia Metoprolol Tartrate (Metoprolol Tartrate 25 Mg Tablet) 25 mg PO DAILY [facility]; Protocol Last Admin: 06/05/24 10:26 Dose: Not Given Omeprazole (Omeprazole 20 Mg Capsule.Dr) 20 mg PO DAILY@0630 [facility] Last Admin: 06/05/24 05:35 Dose: 20 mg Ondansetron HCl (Ondansetron Hcl 4 Mg/2 Ml Vial) 4 mg IVPUSH Q8H PRN PRN Reason: Nausea and Vomiting Sodium Chloride (0.9 % Sodium Chloride Flush 3 Ml Syringe) 3 ml IVFLUSH QSHIFT [facility] Last Admin: 06/05/24 10:33 Dose: 3 ml Vancomycin HCl (Vancomycin Hcl 125 Mg Capsule) 125 mg PO Q6H [facility] Last Admin: 06/05/24 10:26 Dose: 125 mg Home Medications ?Medication ?Instructions ?Recorded ?Confirmed ?Type ammonium lactate 12 % lotion 1 appl topical DAILY PRN Dry Skin 06/02/24 06/02/24 History apixaban 5 mg tablet (Eliquis) 5 mg PO BID 06/02/24 06/02/24 History cholestyramine (with sugar) 4 gram 1 ea PO DAILY 06/02/24 06/02/24 History powder for susp in a packet diltiazem HCl 240 mg 240 mg PO DAILY 06/02/24 06/02/24 History capsule,extended release 24 hr metoprolol tartrate 25 mg tablet 25 mg PO DAILY 06/02/24 06/02/24 History pantoprazole 20 mg tablet,delayed 20 mg PO DAILY@0630 06/02/24 06/02/24 History release vancomycin 125 mg capsule 125 mg PO MOWEFR@0900 06/02/24 06/02/24 History Allergies Allergy/AdvReac Type Severity Reaction Status Date / Time No Known Allergies [NKA] Allergy Mild NOT Verified 06/02/24 09:42 APPLICABLE Exam Vital signs: Vital Signs Temp 97.4 F 06/05/24 10:31 Pulse 74 06/05/24 11:45 Resp 16 06/05/24 10:31 BP 98/58 L 06/05/24 11:45 Pulse Ox 94 06/05/24 11:45 O2 Del Method Room Air 06/05/24 10:31 Intake & Output 06/04/24 06/05/24 06/05/24 18:59 06:59 18:59 Intake Total 1686.667 / 3486.667 1800 / 3486.667 995 / 995 Output Total 150 / 350 200 / 350 Balance 1536.667 / 3136.667 1600 / 3136.667 995 / 995 Urine Output (Average ml/kg/hr) 0.21 0.27 0.27 Intake: Intake, Oral Amount 320 / 720 400 / 720 200 / 200 Intake, IV Amount 1366.667 / 2766.667 1400 / 2766.667 795 / 795 Linezolid/D5W 600 mg In 300 ml 300 / 600 300 / 600 @ 300 mls/hr IV Q12H [facility] Rx#: [id number] Piperacillin Sodium/Tazobactam 100 / 200 100 / 200 100 / 100 4.5 gm In 0.9 % Sodium Chloride 100 ml @ 200 mls/hr IV Q12H [facility] Rx#:[id number] 0.9 % Sodium Chloride 1,000 ml 966.667 / 9557.179 4773 / 1966.667 695 / 695 @ 100 mls/hr IVCONT .Q10H [facility] Rx#:[id number] Output: Output, Urine Amount 150 / 350 200 / 350 Other: Meal Refused No NPO No Breakfast % Eaten 25% 75% Lunch % Eaten 100% Dinner % Eaten 100% Eating (Feeding) Ability Set Up only Number of Bowel Movements 1 1 Urine Urinal Bedside Commode Urine Color Concentrated Concentrated Last Bowel Movement 06/04/24 06/04/24 06/05/24 Stool Bedside Commode Bedside Commode Bedpan Stool Amount Moderate Moderate Stool Color Dark Brown Brown Stool Consistency Loose Watery Loose Weight 60.8 kg BMI result Body Mass Index 19.8 - Constitutional Present: no acute distress, average body habitus, chronically ill appearing - Routine HEENT Exam Head: Present: normal inspection - Routine Respiratory Exam Present: CTAB - Routine Cardiovascular Exam Cardiovascular: Present: S1, S2 - Routine Abdominal Exam Present: soft - Routine Extremities Exam Present: pedal edema - Routine Skin Exam Present: intact Data - Labs CBC & Chem 7: 06/05/24 08:28 06/05/24 08:28 - Imaging Radiologist's impression: ITS Impressions Venous Duplex 06/04/24 14:25 IMPRESSION: No evidence of deep venous thrombosis involving the right upper extremity. Electronically signed by: Lior Lewis MD 06/04/2024 03:08 PM EDT Assessment and Plan Patient Active problem list reviewed?: Yes (1) Left leg DVT Status: Acute Assessment and plan: 1. This is a 78-year-old male with multiple medical problems and complicated medical history who is now admitted for recurrent C diff colitis and left lower extremity DVT. Left lower extremity ultrasound showed extensive DVT extending from calf veins into popliteal, femoral and proximal deep femoral and common femoral veins. CT abdomen/pelvis without contrast shows right percutaneous nephrostomy catheter in place, air in the collecting system, probably iatrogenic, infectious or fistula. Indeterminate exophytic lesion of left kidney. Ward colitis with indeterminate soft tissue density with air just below aortic bifurcation, fistulous process can not be excluded. He noticed swelling in his left leg since 05/31/2024. He says he was not taking Eliquis since he left the hospital on April 18. Unfortunately he has developed recurrent thrombocytopenia with platelet counts of 25 K. he has leukocytosis with WBC count of 26.6 with toxic vacuolation, hemoglobin returned to his baseline of 11.9 gram/dL. He is afebrile, blood and urine cultures are pending. He has been started on Zosyn, linezolid, vancomycin and Flagyl. Cause of DVT is probably prolonged hospitalization for over a month and not being on anticoagulation/prophylaxis. Heparin induced thrombocytopenia is also in the differential as he has had ongoing exposure to heparin during dialysis and he has had greater than 50% drop in platelet counts since April. However it is difficult to ascertain the timeline and exposure to heparin. This could also explain thrombosis. HIT assay is pending. Cause of drop in platelet count could also be DIC because of sepsis. He has mild elevation of PT/PTT and decline in fibrinogen level. He received platelet transfusion and underwent IVC filter placement on 06/04/2024. For his left lower extremity DVT, anticoagulation is needed. If platelet counts come at least above 30,000, he could be started on low-dose anticoagulation with argatroban until HIT assay comes back. On exam, his left foot feels cool and appears to be more swollen although patient does not complain of pain. Fibrinogen level is mildly decreased. Hit assay is still pending. Transfuse 1 unit platelets today There has been been slight decrease in hemoglobin, continue to monitor. He reports 1 episode of hematochezia today. - Time Spent With Patient Time Spent with Patient (in minutes): 20 Additional Coding: - Additional E/M codes Complex E/M visit Add On: CPT G2211
--- NOTE | 2024-06-05 15:21 | PC.NURSE ---
13:30 Spoke with blood bank, per lab STAT plts are coming from outside facility, will be delayed. MD Horne made aware via tiger text.
--- NOTE | 2024-06-05 17:12 | HO.PM.IMPN ---
Subjective Subjective Date of Service: 06/05/24 Interval History: possibly had small amount of blood after straining for BM but none since LLE swollen no kidney pain got HD today This history was taken in Lithuanian from the patient. Review of Systems Review of Systems: Yes all other systems are reviewed and are negative Physical Exam Vital Signs: Vital Signs: Last Vital Signs Temp 97.7 F 06/05/24 16:58 Pulse 60 06/05/24 16:58 Resp 18 06/05/24 16:58 BP 122/69 06/05/24 16:58 Pulse Ox 95 06/05/24 15:51 O2 Del Method Room Air 06/05/24 15:51 BMI result Body Mass Index 19.8 Gen: in no acute distress HEENT: sclera anicteric, moist mucus membranes Neck: supple Lungs: clear to auscultation bilaterally Heart: regular rate and rhythm, no murmurs Abd: soft, non-tender, non-distended Ext: LLE swollen, R groin without bleeding Skin: warm/well-perfused Neuro: alert and oriented x3, no focal findings Psych: appropriate affect Objective Data Active Medications Acetaminophen (Acetaminophen 325 Mg Tablet) 650 mg PO Q6H PRN PRN Reason: Pain, Mild 1-3,fever,headache Amiodarone HCl (Amiodarone Hcl 200 Mg Tablet) 200 mg PO DAILY [facility] Last Admin: 06/05/24 10:32 Dose: 200 mg Documented By: MARY Calcium Carbonate (Calcium Carbonate 750 Mg Tab.Chew) 750 mg PO Q4H PRN PRN Reason: Heartburn Cholestyramine Resin (Cholestyramine (With Sugar) 4 Gm Powd.Pack) 4 gm PO DAILY [facility] Last Admin: 06/05/24 10:28 Dose: 4 gm Documented By: MARY Diltiazem HCl (Diltiazem Hcl Cd 240 Mg Cap.Er.Deg) 240 mg PO DAILY [facility]; Protocol Last Admin: 06/05/24 10:33 Dose: Not Given Documented By: MARY Non-Admin Reason: holding for low BP Linezolid (Zyvox/D5w) 600 mg in 300 mls @ 300 mls/hr IV Q12H [facility] Last Infusion: 06/05/24 06:35 Dose: Infused Documented By: AUBRIE Piperacillin Sod/Tazobactam (Sod 4.5 gm/ Sodium Chloride) 100 mls @ 200 mls/hr IV Q12H [facility] Last Infusion: 06/05/24 11:08 Dose: Infused Documented By: MARY Lactic Acid (Ammonium Lactate 12 % Lotion 226 Gm Bottle) 1 appl TOPICAL DAILY PRN; Protocol PRN Reason: Dry Skin Magnesium Hydroxide (Milk Of Magnesia 30 Ml Oral.Susp) 30 ml PO DAILY PRN PRN Reason: Constipation Melatonin (Melatonin 3 Mg Tablet) 6 mg PO BEDTIME PRN PRN Reason: Insomnia Metoprolol Tartrate (Metoprolol Tartrate 25 Mg Tablet) 25 mg PO DAILY [facility]; Protocol Last Admin: 06/05/24 10:26 Dose: Not Given Documented By: MARY Non-Admin Reason: held for low BP Omeprazole (Omeprazole 20 Mg Capsule.) 20 mg PO DAILY@0630 [facility] Last Admin: 06/05/24 05:35 Dose: 20 mg Documented By: AUBRIE Ondansetron HCl (Ondansetron Hcl 4 Mg/2 Ml Vial) 4 mg IVPUSH Q8H PRN PRN Reason: Nausea and Vomiting Sodium Chloride (0.9 % Sodium Chloride Flush 3 Ml Syringe) 3 ml IVFLUSH QSHIFT ON [facility] OF [facility] Last Admin: 06/05/24 16:21 Dose: 3 ml Documented By: MARY Vancomycin HCl (Vancomycin Hcl 125 Mg Capsule) 125 mg PO Q6H ON [facility] Last Admin: 06/05/24 16:21 Dose: 125 mg Documented By: MARY Labs 06/05/24 08:28 06/05/24 08:28 Labs: Laboratory Results - last 24 hr 06/03/24 06/05/24 10:55 08:28 MCV 97.8 MCH 31.7 MCHC 32.5 RDW 17.6 H Plt Count 25 L MPV Not Reportable Immature Gran % (Auto) Cancelled Neut % (Auto) Cancelled Lymph % (Auto) Cancelled [place] % (Auto) Cancelled Eos % (Auto) Cancelled Baso % (Auto) Cancelled Lymph # (Auto) Cancelled [place] # (Auto) Cancelled Eos # (Auto) Cancelled Baso # (Auto) Cancelled Abs Immat Gran (auto) Cancelled Absolute Neuts (auto) Cancelled Absolute Nucleated RBC 0.020 H Nucleated RBC % (auto) 0.1 Neutrophils % (Manual) 72 Band Neutrophils % 4 Lymphocytes % (Manual) 5 L Atypical Lymphs % (Man) 6 Monocytes % (Manual) 8 Eosinophils % (Manual) 1 Metamyelocytes % 4 Abs Neuts (Manual) 15.6 H Lymphocytes # (Manual) 1.0 L Atyp Lymphs # (Manual) 1.2 Monocytes # (Manual) 1.6 H Eosinophils # (Manual) 0.2 Metamyelocytes # 0.8 Platelet Estimate DECREASED Plt Morphology Comment NORMAL RBC Morphology NOTED Hypochromasia 1+ (5-14) Macrocytosis 1+ (5-14) Millicent Cells 3+ (>5) Schistocytes 2+ (3-5) PT 14.4 H INR 1.2 H Fibrinogen 100 L* D-Dimer High Sensitivty 400 Anion Gap 10 L Estim Creat Clear Calc 42.5 Estimated GFR 56 Fasting Glucose 70 Calcium 6.8 L Total Bilirubin 0.7 AST 15 ALT < 6 Alkaline Phosphatase 130 H Total Protein 4.1 L Albumin 1.5 L Blood Type A Positive Antibody Screen NEGATIVE Microbiology Microbiology Results: Microbiology 06/02/24 17:46 Blood Culture - Preliminary Blood - Central Line No growth after 48 hours. Assessment and Plan (1) Left leg DVT: Status: Acute (2) Thrombocytopenia: Status: Acute (3) Recurrent Clostridioides difficile diarrhea: Status: Acute Plan d4 for 78yo M with ESRD on HD, thrombocytopenia that started in Feb 2024, recurrent C difficile colitis, HTN< HLD, SSS s/p PPM, and BPH presenting with pancolitis and infection associated with R nephrostomy tube C difficile colitis - continue PO vancomycin; will need pulse-taper therapy and lifelong prophylaxis; ID consult pending complicated UTI - UCx contaminated. Percuatenous nephrostomy removed 06/04. Hx VRE UTI. Remains on piperacillin-tazobactam and linezolid 06/02-. ID consult pending. Notably ,in March he had a dialysis catheter line infection with Klebsiella oxytoca; line was replaced. Blood cultures here negative extensive DVT LLE thrombocytopenia - IVC filter placed 06/04 - platelets low due to infection vs. DIC vs. HIT. HIT antibody panel pending. Fibrinogen is low and platelets are 25 today, making anticoagulation with argatroban risky. Will give 2u platelets and reassess in AM. 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 Quality Stroke Does the patient have a stroke diagnosis?: No VTE Prior VTE?: No VTE Risk Level:: Medical - moderate - high VTE Device Contraindication: N/A - Device Ordered VTE Drug Contraindication: Treatment Not Indicated
[2024-06-06] MEDS: Linezolid/D5W 600 MG/300 ML PIGGYBACK 300 MG IV (05:26)
[2024-06-06] MEDS: vancomycin HCL 125 MG CAPSULE PO ×4 (05:27→21:33)
[2024-06-06] MEDS: Omeprazole 20 MG CAPSULE.DR PO (05:27)
[2024-06-06] MEDS: Acetaminophen 325 MG TABLET 650 MG PO (05:40)
[2024-06-06 07:46] VITALS: BP 102/68; PULSE 64; RESP 14; TEMP 36; O2SAT 97
[2024-06-06] MEDS: dilTIAZem HCL CD 240 MG CAP.ER.DEG PO (08:44)
[2024-06-06] MEDS: 0.9 % Sodium Chloride Flush 3 ML SYRINGE IVFLUSH ×3 (08:44→21:35)
[2024-06-06] MEDS: Amiodarone HCL 200 MG TABLET PO (08:44)
[2024-06-06] MEDS: Cholestyramine (With Sugar) 4 GM POWD.PACK PO (08:44)
[2024-06-06] MEDS: Piperacillin Sodium/Tazobactam 4.5 GM in 0.9 % Sodium Chloride 100 ML IV (08:44)
[2024-06-06 09:01] VITALS: BP 102/68; PULSE 64; O2SAT 97
[2024-06-06 09:20] LABS: INTERNATIONAL NORM RATIO 1.3 (0.9-1.1); Prothrombin Time 15.7 SEC (10.9-12.4)
[2024-06-06 09:23] LABS: Baso%MD 0.1 %; Eos%MD 0.3 %; Hematocrit 27.5 % (42.0-52.0); Hemoglobin 8.9 g/dl (14.0-18.0); IG%MD 12.4 %; Lymph%MD 9.8 %; Mean Corpuscular HGB Conc 32.4 g/dl (31.0-36.0); Mean Corpuscular Volume 98.9 fL (80.0-98.0); Mono%MD 10.6 %; Neut%MD 66.8 %; Red Blood Count 2.78 X10*6/uL (4.60-5.80); Red Cell Distribution Width 17.8 % (11.0-16.0); White Blood Count 12.7 X10*3/uL (4.8-10.8)
[2024-06-06 09:24] LABS: Platelet Count 37 X10*3/uL (160-400)
[2024-06-06 09:40] LABS: Alanine Aminotransferase < 6 U/L (0-40); Albumin Level 1.5 g/dL (3.5-5.0); Alkaline Phosphatase 100 U/L (39-117); Aspartate Amino Transferase 11 U/L (5-37); Bilirubin Total 0.6 mg/dL (0.0-1.0); Blood Urea Nitrogen 10 mg/dL (9-16); Calcium 6.5 mg/dL (8.4-10.2); Glucose Fasting 65 mg/dL (60-99); Glucose Random 65 mg/dL (60-115); Total Protein 3.8 g/dL (6.5-8.0)
[2024-06-06 09:51] LABS: Anion Gap 9 (12-20); Band Neutrophils Percent 6 % (3-5); Carbon Dioxide 26 mmol/L (22-29); Chloride 105 mmol/L (96-108); Eosinophils Absolute Manual 0.1 X10*3/uL (0.0-0.4); Eosinophils Percent Manual 1 % (0-4); Estimated Glomerular Filt Rate 28; Lymphocytes Absolute Manual 0.8 X10*3/uL (1.2-4.9); Lymphocytes Percent Manual 6 % (20-40); Metamyelocytes Absolute 0.1 X10*3/uL; Metamyelocytes Percent 1 %; Monocytes Absolute Manual 0.1 X10*3/uL (0.1-1.2); Monocytes Percent Manual 1 % (2-11); Myelocytes Absolute 0.4 X10*/uL; Myelocytes Percent 3 %; Neutrophils Absolute Manual 11.2 X10*3/uL (2.0-8.3); Neutrophils Percent Manual 82 % (45-73); Potassium 3.6 mmol/L (3.3-5.1); Sodium 136 mmol/L (135-145)
[2024-06-06 09:55] LABS: Macrocytosis 1+ (5-14) /OIF; RBC Morphology NOTED
[2024-06-06 09:57] LABS: Acanthocytes 1+ (0-2) /OIF; Hypochromasia 1+ (5-14) /OIF; Polychromasia 1+ (0-2) /OIF; Schistocytes 1+ (0-2) /OIF; Smudge Cells PRESENT
[2024-06-06 09:58] LABS: Large Platelet PRESENT; Platelet Estimate DECREASED (NORMAL); Platelet Morphology Comment NOTED
[2024-06-06 10:00] VITALS: BP 108/58; PULSE 68; RESP 16; TEMP 36.1; O2SAT 99
--- NOTE | 2024-06-06 10:36 | HO.VASCPN ---
Subjective Subjective Date of Service: 06/06/24 Interval history: Mehran is doing well this morning. He is eating, drinking, and sleeping well. He denies any pain in the right groin. He has no new concerns today. Physical Exam Vital Signs: Vital Signs: Last Vital Signs Temp 96.8 F 06/06/24 07:46 Pulse 64 06/06/24 09:01 Resp 14 06/06/24 07:46 BP 102/68 06/06/24 09:01 Pulse Ox 97 06/06/24 09:01 O2 Del Method Room Air 06/06/24 07:46 BMI result Body Mass Index 19.8 Const: General: comfortable and no acute distress Orientation/consciousness: patient oriented x3 HEENT: Ears: hearing grossly normal bilaterally Resp: Effort & Inspection: normal respiratory effort and able to speak in complete sentences Auscultation: clear to auscultation bilaterally Cardio: Rate: regular rate Rhythm: regular rhythm Heart sounds: S1 normal heart sound present and S2 normal heart sound present Bruits: no abdominal aortic bruits, no carotid bruits, no femoral bruits and no renal bruits GI: Palpation (GI): No Abdominal aortic bruit present : Other: Right groin: C/D/I. No bleeding or drainage noted. Neuro: General: patient oriented x3 Cranial nerves: Yes CN's II-XII intact bilaterally Extrem: Other: Left lower extremity: cooler than right to the touch. Not painful to palpation. Doppler DP pulse. Progress Note: A&P Assessment and plan (1) Left leg DVT: Status: Acute Assessment and Plan: Mehran is s/p IVC filter placement on 06/04. He has been doing well. The dressing is off and the site remains clean, dry, and intact. He has been doing well overall. We will be signing off for now. If there are any questions or concerns, please do not hesitate to reach out to us. Time Spent With Patient Time: Total time managing care of this patient today ____ minutes. Procedures Date of Service Date of Service: 06/06/24 Quality Stroke Does the patient have a stroke diagnosis?: No VTE Prior VTE?: No VTE Risk Level:: Medical - moderate - high VTE Device Contraindication: N/A - Device Ordered VTE Drug Contraindication: Treatment Not Indicated
--- NOTE | 2024-06-06 10:46 | HO.PM.IMPN ---
Subjective Subjective Date of Service: 06/06/24 Interval History: Feels much better with nephrostomy tube out. IVC insertion site without oozing or bleeding Review of Systems Denies chest pain Denies shortness of breath Denies nausea vomiting diarrhea Denies fever chills Physical Exam Vital Signs: Vital Signs: Last Vital Signs Temp 96.9 F 06/06/24 10:00 Pulse 68 06/06/24 10:00 Resp 16 06/06/24 10:00 BP 108/58 L 06/06/24 10:00 Pulse Ox 99 06/06/24 10:00 O2 Del Method Room Air 06/06/24 10:00 BMI result Body Mass Index 19.8 Const: Other: Awake alert ill-appearing Resp: Other: Clear to auscultation bilaterally no rales rhonchi or wheezes Cardio: Other: No S4; positive S1-S2; no S3 murmurs rubs or gallops GI: Other: Soft nontender nondistended normoactive bowel sounds : Other: Right percutaneous nephrostomy tube. Site clean dry and intact Extrem: Other: No edema bilaterally Objective Data Active Medications Acetaminophen (Acetaminophen 325 Mg Tablet) 650 mg PO Q6H PRN PRN Reason: Pain, Mild 1-3,fever,headache Last Admin: 06/06/24 05:40 Dose: 650 mg Documented By: JESUS Amiodarone HCl (Amiodarone Hcl 200 Mg Tablet) 200 mg PO DAILY [facility] Last Admin: 06/06/24 08:44 Dose: 200 mg Documented By: MARY Calcium Carbonate (Calcium Carbonate 750 Mg Tab.Chew) 750 mg PO Q4H PRN PRN Reason: Heartburn Cholestyramine Resin (Cholestyramine (With Sugar) 4 Gm Powd.Pack) 4 gm PO DAILY [facility] Last Admin: 06/06/24 08:44 Dose: 4 gm Documented By: MARY Diltiazem HCl (Diltiazem Hcl Cd 240 Mg Cap.Er.Deg) 240 mg PO DAILY [facility]; Protocol Last Admin: 06/06/24 08:44 Dose: 240 mg Documented By: MARY Linezolid (Zyvox/D5w) 600 mg in 300 mls @ 300 mls/hr IV Q12H [facility] Last Infusion: 06/06/24 06:31 Dose: Infused Documented By: JESUS Piperacillin Sod/Tazobactam (Sod 4.5 gm/ Sodium Chloride) 100 mls @ 200 mls/hr IV Q12H [facility] Last Infusion: 06/06/24 09:20 Dose: Infused Documented By: MARY Lactic Acid (Ammonium Lactate 12 % Lotion 226 Gm Bottle) 1 appl TOPICAL DAILY PRN; Protocol PRN Reason: Dry Skin Magnesium Hydroxide (Milk Of Magnesia 30 Ml Oral.Susp) 30 ml PO DAILY PRN PRN Reason: Constipation Melatonin (Melatonin 3 Mg Tablet) 6 mg PO BEDTIME PRN PRN Reason: Insomnia Metoprolol Tartrate (Metoprolol Tartrate 25 Mg Tablet) 25 mg PO DAILY [facility]; Protocol Last Admin: 06/06/24 08:33 Dose: Not Given Documented By: MARY Non-Admin Reason: per MD Horner hold for soft BP Omeprazole (Omeprazole 20 Mg Capsule.Dr) 20 mg PO DAILY@0630 [facility] Last Admin: 06/06/24 05:27 Dose: 20 mg Documented By: JESUS Ondansetron HCl (Ondansetron Hcl 4 Mg/2 Ml Vial) 4 mg IVPUSH Q8H PRN PRN Reason: Nausea and Vomiting Sodium Chloride (0.9 % Sodium Chloride Flush 3 Ml Syringe) 3 ml IVFLUSH QSHIFT [facility] Last Admin: 06/06/24 08:44 Dose: 3 ml Documented By: MARY Vancomycin HCl (Vancomycin Hcl 125 Mg Capsule) 125 mg PO Q6H [facility] Last Admin: 06/06/24 09:15 Dose: 125 mg Documented By: MARY Labs 06/06/24 08:22 06/06/24 08:22 Labs: Laboratory Results - last 24 hr 06/03/24 06/05/24 06/06/24 10:55 08:28 08:22 MCV 98.9 H MCH 32.0 MCHC 32.4 RDW 17.8 H Plt Count 37 L D MPV Not Reportable Immature Gran % (Auto) Cancelled Neut % (Auto) Cancelled Lymph % (Auto) Cancelled [place] % (Auto) Cancelled Eos % (Auto) Cancelled Baso % (Auto) Cancelled Lymph # (Auto) Cancelled [place] # (Auto) Cancelled Eos # (Auto) Cancelled Baso # (Auto) Cancelled Abs Immat Gran (auto) Cancelled Absolute Neuts (auto) Cancelled Absolute Nucleated RBC 0.000 Nucleated RBC % (auto) 0.0 Neutrophils % (Manual) 72 82 H Band Neutrophils % 4 6 H Lymphocytes % (Manual) 5 L 6 L Atypical Lymphs % (Man) 6 Monocytes % (Manual) 8 1 L Eosinophils % (Manual) 1 1 Metamyelocytes % 4 1 Myelocytes % 3 Abs Neuts (Manual) 15.6 H 11.2 H Lymphocytes # (Manual) 1.0 L 0.8 L Atyp Lymphs # (Manual) 1.2 Monocytes # (Manual) 1.6 H 0.1 Eosinophils # (Manual) 0.2 0.1 Metamyelocytes # 0.8 0.1 Myelocytes # 0.4 Smudge Cells PRESENT Platelet Estimate DECREASED DECREASED Large Platelets PRESENT Plt Morphology Comment NORMAL NOTED RBC Morphology NOTED NOTED Polychromasia 1+ (0-2) Hypochromasia 1+ (5-14) 1+ (5-14) Macrocytosis 1+ (5-14) 1+ (5-14) Millicent Cells 3+ (>5) Acanthocytes (Spur) 1+ (0-2) Schistocytes 2+ (3-5) 1+ (0-2) PT 15.7 H INR 1.3 H Anion Gap 9 L Estim Creat Clear Calc 23.0 Estimated GFR 28 Random Glucose 65 Fasting Glucose 65 Calcium 6.5 L Total Bilirubin 0.6 AST 11 ALT < 6 Alkaline Phosphatase 100 Total Protein 3.8 L Albumin 1.5 L Blood Type A Positive Antibody Screen NEGATIVE Assessment and Plan (1) Recurrent Clostridioides difficile diarrhea: Status: Acute (2) Thrombocytopenia: Status: Acute (3) ESRD (end stage renal disease) on dialysis: Status: Acute (4) UTI (urinary tract infection): Status: Acute Plan 78-year-old male with history of BPH, recurrent C diff colitis, hyperlipidemia, hypertension, history of alcohol use disorder, mild cognitive impairments, sick sinus syndrome s/p pacemaker placement, ESRD on HD MWF, chronic thrombocytopenia admitted for pancolitis and catheter associated UTI 1.Acute pancolitis/CDiff positive -CDiff positive -vancomycin p.o. as ordered along with IV metronidazole -WBCs improving 2.Acute UTI -continue linezolid as ordered (4)History VRE UTI. -percutaneous nephrostomy tube removed earlier today 3. Extensive DVT left lower extremity -successful IVC filter this a.m. -follow up platelets. 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 Complex hemorrhagic exophytic lesion of the left kidney;Dilation of the right pelvis and calyceal system possibly related to blood Plavix versus purulent material versus neoplasm) SCPs Full code Requires ongoing hospitalization for IV antibiotics to treat empirically catheter line infection and to manage DVT in the backdrop of thrombocytopenia which will require specialized intervention and consultation Quality Stroke Does the patient have a stroke diagnosis?: No VTE Prior VTE?: No VTE Risk Level:: Medical - moderate - high VTE Device Contraindication: N/A - Device Ordered VTE Drug Contraindication: Treatment Not Indicated
--- NOTE | 2024-06-06 13:07 | MHC.CLN ---
F/U DIET=2 GRAM SODIUM. CONTINUE ENSURE CLEAR TID (720 KCALS, 24 G PROTEIN). NO PRESSURE INJURIES NOTED. CURRENT PO VARIABLE, 25-100%. MONITOR PO INTAKE AND ENCOURAGE SUPPLEMENTS.
--- NOTE | 2024-06-06 13:51 | MHC.CM.PN ---
PT WILL NEED STR, [facility] ACCEPTED THE [facility] HAS PROVIDED AUTH AND TRANSPORT TO HD HAS BEEN ARRANGED IF PT DISCHARGES OVER THE WEEKEND, [facility] THE [facility] WILL ARRANGE TRANSPORT [phone] X [phone]
[2024-06-06 15:13] VITALS: BP 119/77; PULSE 60; RESP 18; TEMP 36; O2SAT 95
--- NOTE | 2024-06-06 17:07 | PM.HEMONCPN ---
Medical Summary - Medical Summary Date of Service: 06/06/24 Chief complaint: None today Primary Care Provider: Joao Duncan MD Assistant Refinery Operator Utilized?: No - Chadian Speaking Interval History Interval history: Mehran Samuel is a 78 year old male with past medical history significant for recurrent DVT since January 2024, rectal cancer status post chemo RT followed by LAR, chronic atrial fibrillation, end-stage renal disease on hemodialysis who is currently admitted for recurrent diarrhea secondary to C diff infection. Patient had prolonged hospitalization at [facility] [place] from March 25 to 04/18/2024 following which he was in a half-way for 3 weeks and just got home a few days back. He says he came back to the hospital because of recurrent diarrhea as well as pain at the site of right nephrostomy tube. He says he is unable to sleep at night because of this. He had right nephrostomy tube placed in March 2024 because of disruption of distal right ureter which may have occurred during reversal of colostomy performed at [facility] as per urology. During the prolonged hospitalization in March and April 2024 patient had developed severe thrombocytopenia with platelet counts below 20 K. he also developed GI bleeding requiring 3 units PRBC transfusion. EGD showed gastritis, duodenitis and candidal esophagitis that was treated with Diflucan. 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 His Eliquis was stopped. Thrombocytopenia was felt to be multifactorial, related to sepsis with Klebsiella line infection, use of antibiotics, as well as previous alcohol use, splenomegaly. At the time of discharge his platelet counts had come up to about 85 K. During that same admission he was noted to have obstruction of the right distal ureter and right PCN was placed on 04/08/2024. Patient states that he was never diagnosed with DVT in the past. He noticed swelling of his left leg last week after being home for a few days. He denies any pleuritic chest pain, shortness of breath or cough. The left leg swelling is about the same. He denies any significant pain in the leg. He had IVC filter placed and received 1 unit platelet transfusion. Today patient states that there has been no pain in his foot. No bruising or bleeding. No hematuria hematochezia. Review of Systems - Neurologic Reports no additional neurologic complaints, Reports as per HPI, Reports hearing normal, Denies dizziness, Denies numbness, Denies sensory deficit, Denies weakness [facility] Medical History: Medical History (Last Updated 06/06/24 @ 10:49 by Lorenzo Horner DO) Acute renal failure Aftercare following left shoulder joint replacement surgery Atrial fibrillation Borderline hyperlipidemia BPH (benign prostatic hyperplasia) C. difficile colitis Cancer of kidney End stage renal disease EtOH dependence High cholesterol HTN (hypertension) Hypertension Ileus Inhibited sex excitement Mild cognitive impairment OA (osteoarthritis) Obesity Pacemaker Postoperative hematoma involving digestive system following digestive system procedure Recto-vesical fistula Sick sinus syndrome Sinus bradycardia UTI (urinary tract infection) Family History: Family History (Last Reviewed 06/02/24 @ 14:27 by SEBASTIAN Awad) Mother Heart problem Surgical History: Surgical History (Last Reviewed 06/02/24 @ 14:27 by SEBASTIAN Awad) Atrial fibrillation with rapid ventricular response Encounter for interrogation of cardiac pacemaker Malignant neoplasm of rectum Rectal carcinoma Rectal mass Social History: Social History (Last Reviewed 06/02/24 @ 14:27 by SEBASTIAN Awad) Living Situation History: Household Members: Spouse Housing: House Do you presently have visiting nurse or other home services: Yes Alcohol History Details: 1. How often do you have a drink containing alcohol?: a. Never AUDIT-C Alcohol total score: 0 Currently Displaying Signs/Symptoms of Alcohol Withdrawal: No Tobacco History: Patient Tobacco Use Status: Former Tobacco user Tobacco use type: Cigarette Smoked in Last 30 Days: No e-Cigarette/Vaping Use: Never Used Substance Use History: Use of substances other than those prescribed or required for medical reasons: No Currently Displaying Signs/Symptoms of Drug Intoxication Withdrawal: No Domestic Abuse History: Have you been hit, kicked, punched, or otherwise hurt by someone within the past year? If so, by whom?: No Do you feel safe in your current relationship?: Yes Is there a partner from a previous relationship who is making you feel unsafe now?: No Are you made to feel afraid or neglected: No Advance Directives: Advance Directives: Yes Advance Directives on File: Yes Advance Directives Date on File: 11/29/22 Homicidal Assessment: Do you have a plan to hurt others: No Plan Nutrition Assessment: Recently lost weight without trying: Yes How much weight loss: 14-23 pounds Eating poorly because of decreased appetite: No Nutrition screen score: 4 Nutrition Risks: No Nutritional Risk Poor oral hygiene: No Occupation Assessmet: service: No Home Medications and Allergies Current Medications: Current Medications Acetaminophen (Acetaminophen 325 Mg Tablet) 650 mg PO Q6H PRN PRN Reason: Pain, Mild 1-3,fever,headache Last Admin: 06/06/24 05:40 Dose: 650 mg Amiodarone HCl (Amiodarone Hcl 200 Mg Tablet) 200 mg PO DAILY [facility] Last Admin: 06/06/24 08:44 Dose: 200 mg Calcium Carbonate (Calcium Carbonate 750 Mg Tab.Chew) 750 mg PO Q4H PRN PRN Reason: Heartburn Cholestyramine Resin (Cholestyramine (With Sugar) 4 Gm Powd.Pack) 4 gm PO DAILY [facility] Last Admin: 06/06/24 08:44 Dose: 4 gm Diltiazem HCl (Diltiazem Hcl Cd 240 Mg Cap.Er.Deg) 240 mg PO DAILY [facility]; Protocol Last Admin: 06/06/24 08:44 Dose: 240 mg Linezolid (Zyvox/D5w) 600 mg in 300 mls @ 300 mls/hr IV Q12H [facility] Last Infusion: 06/06/24 06:31 Dose: Infused Piperacillin Sod/Tazobactam (Sod 4.5 gm/ Sodium Chloride) 100 mls @ 200 mls/hr IV Q12H [facility] Last Infusion: 06/06/24 09:20 Dose: Infused Lactic Acid (Ammonium Lactate 12 % Lotion 226 Gm Bottle) 1 appl TOPICAL DAILY PRN; Protocol PRN Reason: Dry Skin Magnesium Hydroxide (Milk Of Magnesia 30 Ml Oral.Susp) 30 ml PO DAILY PRN PRN Reason: Constipation Melatonin (Melatonin 3 Mg Tablet) 6 mg PO BEDTIME PRN PRN Reason: Insomnia Metoprolol Tartrate (Metoprolol Tartrate 25 Mg Tablet) 25 mg PO DAILY [facility]; Protocol Last Admin: 06/06/24 08:33 Dose: Not Given Omeprazole (Omeprazole 20 Mg Capsule.Dr) 20 mg PO DAILY@0630 [facility] Last Admin: 06/06/24 05:27 Dose: 20 mg Ondansetron HCl (Ondansetron Hcl 4 Mg/2 Ml Vial) 4 mg IVPUSH Q8H PRN PRN Reason: Nausea and Vomiting Sodium Chloride (0.9 % Sodium Chloride Flush 3 Ml Syringe) 3 ml IVFLUSH QSHIFT [facility] Last Admin: 06/06/24 08:44 Dose: 3 ml Vancomycin HCl (Vancomycin Hcl 125 Mg Capsule) 125 mg PO Q6H [facility] Last Admin: 06/06/24 15:58 Dose: 125 mg Home Medications ?Medication ?Instructions ?Recorded ?Confirmed ?Type ammonium lactate 12 % lotion 1 appl topical DAILY PRN Dry Skin 06/02/24 06/02/24 History apixaban 5 mg tablet (Eliquis) 5 mg PO BID 06/02/24 06/02/24 History cholestyramine (with sugar) 4 gram 1 ea PO DAILY 06/02/24 06/02/24 History powder for susp in a packet diltiazem HCl 240 mg 240 mg PO DAILY 06/02/24 06/02/24 History capsule,extended release 24 hr metoprolol tartrate 25 mg tablet 25 mg PO DAILY 06/02/24 06/02/24 History pantoprazole 20 mg tablet,delayed 20 mg PO DAILY@0630 06/02/24 06/02/24 History release vancomycin 125 mg capsule 125 mg PO MOWEFR@0900 06/02/24 06/02/24 History Allergies Allergy/AdvReac Type Severity Reaction Status Date / Time No Known Allergies [NKA] Allergy Mild NOT Verified 06/02/24 09:42 APPLICABLE Exam Vital signs: Vital Signs Temp 96.8 F 06/06/24 15:13 Pulse 60 06/06/24 15:13 Resp 18 06/06/24 15:13 BP 119/77 06/06/24 15:13 Pulse Ox 95 06/06/24 15:13 O2 Del Method Room Air 06/06/24 15:13 Intake & Output 06/05/24 06/06/24 06/06/24 18:59 06:59 18:59 Intake Total 1694 / 3654 1960 / 3654 100 / 100 Balance 1694 / 3654 1960 / 3654 100 / 100 Intake: Intake, Oral Amount 380 / 1640 1260 / 1640 Intake (Blood Product) Amount 519 / 519 Plt Aph Pas Pathreduced(E8342) 260 / 260 Unit [id number] Plt Aph Pas Pathreduced(E8343) 259 / 259 Unit [id number] Intake, IV Amount 795 / 1495 700 / 1495 100 / 100 Linezolid/D5W 600 mg In 300 ml 600 / 600 @ 300 mls/hr IV Q12H [facility] Rx#: [id number] Piperacillin Sodium/Tazobactam 100 / 200 100 / 200 100 / 100 4.5 gm In 0.9 % Sodium Chloride 100 ml @ 200 mls/hr IV Q12H [facility] Rx#:[id number] 0.9 % Sodium Chloride 1,000 ml 695 / 695 @ 100 mls/hr IVCONT .Q10H [facility] Rx#:[id number] Other: Breakfast % Eaten 75% Lunch % Eaten 50% Dinner % Eaten 25% 100% Eating (Feeding) Ability Independent Independent Number of Unmeasured Voids 2 Number of Bowel Movements 1 1 Urine Bedside Commode Urine Color Yellow Yellow Last Bowel Movement 06/05/24 06/05/24 06/06/24 Stool Bedpan Bedpan Stool Amount Moderate Small Stool Color Brown Black (Tarry) Stool Consistency Loose Watery Weight 60.8 kg BMI result Body Mass Index 19.8 - Constitutional Present: no acute distress, average body habitus, chronically ill appearing - Routine HEENT Exam Head: Present: normal inspection - Routine Respiratory Exam Present: CTAB - Routine Cardiovascular Exam Cardiovascular: Present: S1, S2 - Routine Abdominal Exam Present: soft - Routine Extremities Exam Present: pedal edema - Routine Skin Exam Present: intact Data - Labs CBC & Chem 7: 06/06/24 08:22 06/06/24 08:22 - Imaging Radiologist's impression: ITS Impressions Venous Duplex 06/04/24 14:25 IMPRESSION: No evidence of deep venous thrombosis involving the right upper extremity. Electronically signed by: Lior Lewis MD 06/04/2024 03:08 PM EDT Assessment and Plan Patient Active problem list reviewed?: Yes (1) Left leg DVT Status: Acute Assessment and plan: 1. This is a 78-year-old male with multiple medical problems and complicated medical history who is now admitted for recurrent C diff colitis and left lower extremity DVT. Left lower extremity ultrasound showed extensive DVT extending from calf veins into popliteal, femoral and proximal deep femoral and common femoral veins. CT abdomen/pelvis without contrast shows right percutaneous nephrostomy catheter in place, air in the collecting system, probably iatrogenic, infectious or fistula. Indeterminate exophytic lesion of left kidney. Ward colitis with indeterminate soft tissue density with air just below aortic bifurcation, fistulous process can not be excluded. He noticed swelling in his left leg since 05/31/2024. He says he was not taking Eliquis since he left the hospital on April 18. Unfortunately he has developed recurrent thrombocytopenia with platelet counts of 25 K. he has leukocytosis with WBC count of 26.6 with toxic vacuolation, hemoglobin returned to his baseline of 11.9 gram/dL. He is afebrile, blood and urine cultures are pending. He has been started on Zosyn, linezolid, vancomycin and Flagyl. Cause of DVT is probably prolonged hospitalization for over a month and not being on anticoagulation/prophylaxis. Heparin induced thrombocytopenia is also in the differential as he has had ongoing exposure to heparin during dialysis and he has had greater than 50% drop in platelet counts since April. However it is difficult to ascertain the timeline and exposure to heparin. This could also explain thrombosis. HIT assay is pending. Cause of drop in platelet count could also be DIC because of sepsis. He has mild elevation of PT/PTT and decline in fibrinogen level. He received platelet transfusion and underwent IVC filter placement on 06/04/2024. For his left lower extremity DVT, anticoagulation is needed. If platelet counts come at least above 30,000, he could be started on low-dose anticoagulation with argatroban until HIT assay comes back. Patient continues to deny any pain in his left leg or foot. Fibrinogen level is mildly decreased. Hit assay is still pending. He received another unit of platelet transfusion yesterday and his platelets are now 37 K. There has been gradual decrease in hemoglobin. Continue to monitor CBC daily. If His platelets, rise above 50 K he can be started on anticoagulation. - Time Spent With Patient Time Spent with Patient (in minutes): 10
--- NOTE | 2024-06-06 17:19 | W.PM.IDCN ---
History of Present Illness Data of Consult Service Date: 06/06/24 Requesting physician: Lorenzo Horner Primary Care Provider: Joao Duncan MD HPI Reason for consult: diarrhea He presents with cloudy urine There is no fever or pain or hematuria. He has right nephrostomy tube and now out. He has Cdiff positive. He is on Flagyl IV and po Vancomycin. He is on Zosyn and Zyvox, Review of Systems Review of Systems: Yes all other systems are reviewed and are negative PMFSH Past Medical History Medical History UTI (urinary tract infection) Ileus C. difficile colitis Acute renal failure BPH (benign prostatic hyperplasia) Sinus bradycardia Recto-vesical fistula End stage renal disease Sick sinus syndrome Postoperative hematoma involving digestive system following digestive system procedure Aftercare following left shoulder joint replacement surgery Pacemaker OA (osteoarthritis) Borderline hyperlipidemia Obesity HTN (hypertension) EtOH dependence Mild cognitive impairment Inhibited sex excitement Atrial fibrillation Cancer of kidney High cholesterol Hypertension Family History Family History Mother Heart problem Family history: reviewed and not pertinent Surgical History Surgical History Rectal carcinoma Malignant neoplasm of rectum Rectal mass Encounter for interrogation of cardiac pacemaker Atrial fibrillation with rapid ventricular response Social History Social History Household Members: Spouse Housing: House Do you presently have visiting nurse or other home services: Yes Alcohol intake: unknown Comment: PATIENT BEDBOUND AT THIS TIME Patient Tobacco Use Status: Former Tobacco user Tobacco use type: Cigarette Smoked in Last 30 Days: No e-Cigarette/Vaping Use: Never Used Use of substances other than those prescribed or required for medical reasons: No Currently Displaying Signs/Symptoms of Drug Intoxication Withdrawal: No Have you been hit, kicked, punched, or otherwise hurt by someone within the past year? If so, by whom?: No Do you feel safe in your current relationship?: Yes Is there a partner from a previous relationship who is making you feel unsafe now?: No Are you made to feel afraid or neglected: No Are you DNR?: No Advance Directives: Yes Advance Directives on File: Yes Advance Directives Date on File: 11/29/22 Do you have a plan to hurt others: No Plan Recently lost weight without trying: Yes How much weight loss: 14-23 pounds Eating poorly because of decreased appetite: No Nutrition screen score: 4 Nutrition Risks: No Nutritional Risk Poor oral hygiene: No service: No Meds Allergies Allergy/AdvReac Type Severity Reaction Status Date / Time No Known Allergies [NKA] Allergy Mild NOT Verified 06/02/24 09:42 APPLICABLE Active Medications: Current Medications Acetaminophen (Acetaminophen 325 Mg Tablet) 650 mg PO Q6H PRN PRN Reason: Pain, Mild 1-3,fever,headache Last Admin: 06/06/24 05:40 Dose: 650 mg Amiodarone HCl (Amiodarone Hcl 200 Mg Tablet) 200 mg PO DAILY [facility] Last Admin: 06/06/24 08:44 Dose: 200 mg Calcium Carbonate (Calcium Carbonate 750 Mg Tab.Chew) 750 mg PO Q4H PRN PRN Reason: Heartburn Cholestyramine Resin (Cholestyramine (With Sugar) 4 Gm Powd.Pack) 4 gm PO DAILY NILE Last Admin: 06/06/24 08:44 Dose: 4 gm Diltiazem HCl (Diltiazem Hcl Cd 240 Mg Cap.Er.Deg) 240 mg PO DAILY [facility]; Protocol Last Admin: 06/06/24 08:44 Dose: 240 mg Linezolid (Zyvox/D5w) 600 mg in 300 mls @ 300 mls/hr IV Q12H NILE Last Infusion: 06/06/24 06:31 Dose: Infused Piperacillin Sod/Tazobactam (Sod 4.5 gm/ Sodium Chloride) 100 mls @ 200 mls/hr IV Q12H N[facility] Last Infusion: 06/06/24 09:20 Dose: Infused Lactic Acid (Ammonium Lactate 12 % Lotion 226 Gm Bottle) 1 appl TOPICAL DAILY PRN; Protocol PRN Reason: Dry Skin Magnesium Hydroxide (Milk Of Magnesia 30 Ml Oral.Susp) 30 ml PO DAILY PRN PRN Reason: Constipation Melatonin (Melatonin 3 Mg Tablet) 6 mg PO BEDTIME PRN PRN Reason: Insomnia Metoprolol Tartrate (Metoprolol Tartrate 25 Mg Tablet) 25 mg PO DAILY NILE; Protocol Last Admin: 06/06/24 08:33 Dose: Not Given Omeprazole (Omeprazole 20 Mg Capsule.Dr) 20 mg PO DAILY@0630 [facility] Last Admin: 06/06/24 05:27 Dose: 20 mg Ondansetron HCl (Ondansetron Hcl 4 Mg/2 Ml Vial) 4 mg IVPUSH Q8H PRN PRN Reason: Nausea and Vomiting Sodium Chloride (0.9 % Sodium Chloride Flush 3 Ml Syringe) 3 ml IVFLUSH QSHIFT [facility] Last Admin: 06/06/24 08:44 Dose: 3 ml Vancomycin HCl (Vancomycin Hcl 125 Mg Capsule) 125 mg PO Q6H [facility] Last Admin: 06/06/24 15:58 Dose: 125 mg Home Medications ?Medication ?Instructions ?Recorded ?Confirmed ?Last Taken ?Type ammonium lactate 12 % lotion 1 appl topical DAILY PRN Dry Skin 06/02/24 06/02/24 Unknown History apixaban 5 mg tablet (Eliquis) 5 mg PO BID 06/02/24 06/02/24 Unknown History cholestyramine (with sugar) 4 gram 1 ea PO DAILY 06/02/24 06/02/24 Unknown History powder for susp in a packet diltiazem HCl 240 mg 240 mg PO DAILY 06/02/24 06/02/24 Unknown History capsule,extended release 24 hr metoprolol tartrate 25 mg tablet 25 mg PO DAILY 06/02/24 06/02/24 Unknown History pantoprazole 20 mg tablet,delayed 20 mg PO DAILY@0630 06/02/24 06/02/24 Unknown History release vancomycin 125 mg capsule 125 mg PO MOWEFR@0900 06/02/24 06/02/24 Unknown History Physical Exam Vital Signs: Vital Signs: Last Vital Signs Temp 96.8 F 06/06/24 15:13 Pulse 60 06/06/24 15:13 Resp 18 06/06/24 15:13 BP 119/77 06/06/24 15:13 Pulse Ox 95 06/06/24 15:13 O2 Del Method Room Air 06/06/24 15:13 BMI result Body Mass Index 19.8 Const: General: cooperative HEENT: Head: Yes normal to inspection Face and sinus: Yes normal facial exam Mouth: Normal oral and palatal mucosa present Teeth and gingiva: dentition normal Eyes: General: appearance normal, both eyes and all related structures Pupils: Equal, round and reactive pupils present Resp: Effort & Inspection: normal respiratory effort Cardio: Rate: regular rate Rhythm: regular rhythm GI: Palpation (GI): Soft to palpation and nontender : General: Yes no CVA tenderness Back/Spine/Pelvis: Back: no CVA tenderness Skin: General skin exam: no rashes or lesions noted Neuro: General: moves all extremities Cranial nerves: Yes Equal, round and reactive pupils present Extrem: General: Yes normal to inspection Psych: Appearance: grossly normal Results Labs 06/06/24 08:22 06/06/24 08:22 Labs: Short CBC 06/06/24 Range/Units 08:22 WBC 12.7 H (4.8-10.8) X10*3/uL Hgb 8.9 L (14.0-18.0) g/dl Hct 27.5 L (42.0-52.0) % Plt Count 37 L D (160-400) X10*3/uL BMP 06/06/24 08:22 Sodium 136 Potassium 3.6 Chloride 105 Carbon Dioxide 26 BUN 10 Creatinine 2.31 H Calcium 6.5 L Liver Function 06/06/24 Range/Units 08:22 Total Bilirubin 0.6 (0.0-1.0) mg/dL AST 11 (5-37) U/L ALT < 6 (0-40) U/L Alkaline Phosphatase 100 (39-117) U/L Albumin 1.5 L (3.5-5.0) g/dL Microbiology Microbiology Results: Microbiology 06/02/24 17:46 Blood - Central Line Blood Culture - Preliminary No growth after 48 hours. 06/02/24 10:35 Blood - Venous Blood Culture - Preliminary No growth after 48 hours. 06/02/24 10:34 Blood - Venous Blood Culture - Preliminary No growth after 48 hours. 06/02/24 Unknown Urine Other - Nephrostomy Urine Culture - Final Assessment and Plan (1) ESRD (end stage renal disease) on dialysis: Status: Acute (2) Colitis: Status: Acute (3) Recurrent Clostridioides difficile diarrhea: Status: Acute Plan Stop IV antibiotics given for cloudy urine as no bacteremia or hematuria or fever or pain or other objective signs IV Flagyl and stop tomorrow Po Vancomycin 125 mg taper qid for 10 d,tid for one week,bid one week,daily one week and then every ,Sunday indefinitely.
[2024-06-06 23:15] VITALS: BP 115/63; PULSE 68; RESP 16; TEMP 36.1; O2SAT 96
[2024-06-07] MEDS: vancomycin HCL 125 MG CAPSULE PO ×4 (03:52→21:37)
[2024-06-07] MEDS: Omeprazole 20 MG CAPSULE.DR PO (05:43)
[2024-06-07 07:09] VITALS: BP 147/74; PULSE 65; RESP 16; TEMP 36; O2SAT 100
--- NOTE | 2024-06-07 07:40 | HO.PM.IMPN ---
Subjective Subjective Date of Service: 06/07/24 Interval History: Seen in follow-up for pancolitis/C diff, UTI, DVT Interval history: Reports feeling well overall. States the pain around the nephrostomy site has completely resolved since the removal. He is making small amounts of urine and continues with HD on TThS. Platelet levels stable since yesterday but remains significantly thrombocytopenic. Denies any bleeding or easy bruisability. Review of Systems Review of Systems: Yes all other systems are reviewed and are negative Physical Exam Vital Signs: Vital Signs: Last Vital Signs Temp 96.8 F 06/07/24 07:09 Pulse 65 06/07/24 07:09 Resp 16 06/07/24 07:09 BP 147/74 H 06/07/24 07:09 Pulse Ox 96 06/06/24 23:15 O2 Del Method Room Air 06/06/24 23:15 BMI result Body Mass Index 19.8 Constitutional - Awake and Alert, No apparent distress Eyes - PERRLA, EOMI Cardiovascular - S1S2, RRR, No edema Respiratory - Normal lung expansion, Normal respiratory effort, No respiratory distress, CTA bilaterally Gastrointestinal - NT / ND; +BS; No rebound or guarding Extremities - no calf tenderness bilaterally, no swelling Skin - Warm/Dry Neurological - Alert & oriented x3 Objective Data Active Medications Acetaminophen (Acetaminophen 325 Mg Tablet) 650 mg PO Q6H PRN PRN Reason: Pain, Mild 1-3,fever,headache Last Admin: 06/06/24 05:40 Dose: 650 mg Documented By: JESUS Amiodarone HCl (Amiodarone Hcl 200 Mg Tablet) 200 mg PO DAILY [facility] Last Admin: 06/06/24 08:44 Dose: 200 mg Documented By: MARY Calcium Carbonate (Calcium Carbonate 750 Mg Tab.Chew) 750 mg PO Q4H PRN PRN Reason: Heartburn Cholestyramine Resin (Cholestyramine (With Sugar) 4 Gm Powd.Pack) 4 gm PO DAILY [facility] Last Admin: 06/06/24 08:44 Dose: 4 gm Documented By: MARY Diltiazem HCl (Diltiazem Hcl Cd 240 Mg Cap.Er.Deg) 240 mg PO DAILY [facility]; Protocol Last Admin: 06/06/24 08:44 Dose: 240 mg Documented By: MARY Lactic Acid (Ammonium Lactate 12 % Lotion 226 Gm Bottle) 1 appl TOPICAL DAILY PRN; Protocol PRN Reason: Dry Skin Magnesium Hydroxide (Milk Of Magnesia 30 Ml Oral.Susp) 30 ml PO DAILY PRN PRN Reason: Constipation Melatonin (Melatonin 3 Mg Tablet) 6 mg PO BEDTIME PRN PRN Reason: Insomnia Metoprolol Tartrate (Metoprolol Tartrate 25 Mg Tablet) 25 mg PO DAILY [facility]; Protocol Last Admin: 06/06/24 08:33 Dose: Not Given Documented By: MARY Non-Admin Reason: per MD Horner hold for soft BP Omeprazole (Omeprazole 20 Mg Capsule.) 20 mg PO DAILY@0630 [facility] Last Admin: 06/07/24 05:43 Dose: 20 mg Documented By: DEV Ondansetron HCl (Ondansetron Hcl 4 Mg/2 Ml Vial) 4 mg IVPUSH Q8H PRN PRN Reason: Nausea and Vomiting Sodium Chloride (0.9 % Sodium Chloride Flush 3 Ml Syringe) 3 ml IVFLUSH QSHIFT [facility] Last Admin: 06/06/24 21:35 Dose: 3 ml Documented By: DEV Vancomycin HCl (Vancomycin Hcl 125 Mg Capsule) 125 mg PO Q6H [facility] Last Admin: 06/07/24 03:52 Dose: 125 mg Documented By: DEV Labs 06/07/24 13:23 06/07/24 13:23 Labs: Laboratory Results - last 24 hr 06/06/24 08:22 MCV 98.9 H MCH 32.0 MCHC 32.4 RDW 17.8 H Plt Count 37 L D MPV Not Reportable Immature Gran % (Auto) Cancelled Neut % (Auto) Cancelled Lymph % (Auto) Cancelled Vernon % (Auto) Cancelled Eos % (Auto) Cancelled Baso % (Auto) Cancelled Lymph # (Auto) Cancelled Vernon # (Auto) Cancelled Eos # (Auto) Cancelled Baso # (Auto) Cancelled Abs Immat Gran (auto) Cancelled Absolute Neuts (auto) Cancelled Absolute Nucleated RBC 0.000 Nucleated RBC % (auto) 0.0 Neutrophils % (Manual) 82 H Band Neutrophils % 6 H Lymphocytes % (Manual) 6 L Monocytes % (Manual) 1 L Eosinophils % (Manual) 1 Metamyelocytes % 1 Myelocytes % 3 Abs Neuts (Manual) 11.2 H Lymphocytes # (Manual) 0.8 L Monocytes # (Manual) 0.1 Eosinophils # (Manual) 0.1 Metamyelocytes # 0.1 Myelocytes # 0.4 Smudge Cells PRESENT Platelet Estimate DECREASED Large Platelets PRESENT Plt Morphology Comment NOTED RBC Morphology NOTED Polychromasia 1+ (0-2) Hypochromasia 1+ (5-14) Macrocytosis 1+ (5-14) Acanthocytes (Spur) 1+ (0-2) Schistocytes 1+ (0-2) PT 15.7 H INR 1.3 H Anion Gap 9 L Estim Creat Clear Calc 23.0 Estimated GFR 28 Random Glucose 65 Fasting Glucose 65 Calcium 6.5 L Total Bilirubin 0.6 AST 11 ALT < 6 Alkaline Phosphatase 100 Total Protein 3.8 L Albumin 1.5 L Assessment and Plan (1) Recurrent Clostridioides difficile diarrhea: Status: Acute (2) Thrombocytopenia: Status: Acute (3) ESRD (end stage renal disease) on dialysis: Status: Acute (4) UTI (urinary tract infection): Status: Acute Plan 78-year-old male with history of BPH, recurrent C diff colitis, hyperlipidemia, hypertension, history of alcohol use disorder, mild cognitive impairments, sick sinus syndrome s/p pacemaker placement, ESRD on HD MWF, chronic thrombocytopenia admitted for pancolitis and catheter associated UTI Acute pancolitis Ciff toxin and gene positive, recurrent ID input appreciated. Stop zosyn. PO vanco (06/02) QID x 10 daysm then TID x 1 week, then daily x1 week, then MWF indefinitely given recurrence Diet as tolerated Follow CBC, cultures Concern for UTI Complicated by Right-sided nephrostomy tube. CT Right percutaneous nephrostomy catheter in place air within the collecting system on the right probably iatrogenic infectious process or fistula can not be excluded Urology consult History VRE UTI. Initially treated with IV linezolid (06/02). DC LINEZOLID Follow CBC, cultures Extensive LLE DVT No AC due to profound thombocytopenia- per Dr. Ramos, continue holding until sunday Vascular surgery following s/p IVC filter 06/04 Recent dialysis catheter line infection Blood cultures 03/28 positive for Klebsiella. Treated with meropenem during last admission IV Zosyn as above Cover with IV linezolid empirically per Nephrology Follow cultures Acute [place] [address] HIT panel pending. Per Dr. Abdul initiate actroban once PLT >98709 while awaiting HIT. Full AC when PLT >5000 Also possibly r/t infection Hold Eliquis Follow platelets closely Heme following ESRD on HD MWF Nephrology consult. 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 Complex hemorrhagic exophytic lesion of the left kidney Dilation of the right pelvis and calyceal system possibly related to blood Plavix versus purulent material versus neoplasm DVT prophylaxis- SCPs Full code Ongoing inpatient stay due to profound thrombocytopenia of unclear etiology, DVT and will require anticoagulation once counts stabilized as well as expert consultaton Quality Stroke Does the patient have a stroke diagnosis?: No VTE Prior VTE?: No VTE Risk Level:: Medical - moderate - high VTE Device Contraindication: N/A - Device Ordered VTE Drug Contraindication: Treatment Not Indicated
[2024-06-07] MEDS: dilTIAZem HCL CD 240 MG CAP.ER.DEG PO (08:12)
[2024-06-07] MEDS: Metoprolol Tartrate 25 MG TABLET PO (08:12)
[2024-06-07] MEDS: Amiodarone HCL 200 MG TABLET PO (08:13)
[2024-06-07] MEDS: Cholestyramine (With Sugar) 4 GM POWD.PACK PO (08:16)
[2024-06-07] MEDS: 0.9 % Sodium Chloride Flush 3 ML SYRINGE IVFLUSH ×2 (08:21→17:01)
[2024-06-07 10:00] VITALS: BP 126/69; PULSE 60; RESP 16; TEMP 36.3; O2SAT 99
--- NOTE | 2024-06-07 12:12 | PM.HEMONCPN ---
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 Patient had prolonged hospitalization at [facility] from March 25 to 04/18/2024 following which he was in a mcc for 3 weeks and just got home a few days back. He says he came back to the hospital because of recurrent diarrhea as well as pain at the site of right nephrostomy tube. He says he is unable to sleep at night because of this. He had right nephrostomy tube placed in March 2024 because of disruption of distal right ureter which may have occurred during reversal of colostomy performed at [facility] as per urology. During the prolonged hospitalization in March and April 2024 patient had developed severe thrombocytopenia with platelet counts below 20 K. he also developed GI bleeding requiring 3 units PRBC transfusion. EGD showed gastritis, duodenitis and candidal esophagitis that was treated with Diflucan. 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 His Eliquis was stopped. Thrombocytopenia was felt to be multifactorial, related to sepsis with Klebsiella line infection, use of antibiotics, as well as previous alcohol use, splenomegaly. At the time of discharge his platelet counts had come up to about 85 K. During that same admission he was noted to have obstruction of the right distal ureter and right PCN was placed on 04/08/2024. Patient states that he was never diagnosed with DVT in the past. He noticed swelling of his left leg last week after being home for a few days. He denies any pleuritic chest pain, shortness of breath or cough. The left leg swelling is about the same. He denies any significant pain in the leg. He had IVC filter placed and received 1 unit platelet transfusion. Today patient states that there has been no pain in his foot. No bruising or bleeding. No hematuria hematochezia. Review of Systems - Constitutional Reports anorexia - Eyes Reports other - ENT Reports other - Cardiovascular Reports excessive sweating - Respiratory Reports dyspnea on exertion - Gastrointestinal Reports abdominal pain - Neurologic Reports system reviewed and no additional complaints, except as documented, Reports hearing normal, Denies numbness, Denies sensory deficit, Denies weakness [facility] Medical History: Medical History (Last Reviewed 06/06/24 @ 17:21 by Marily German MD) Acute renal failure Aftercare following left shoulder joint replacement surgery Atrial fibrillation Borderline hyperlipidemia BPH (benign prostatic hyperplasia) C. difficile colitis Cancer of kidney End stage renal disease EtOH dependence High cholesterol HTN (hypertension) Hypertension Ileus Inhibited sex excitement Mild cognitive impairment OA (osteoarthritis) Obesity Pacemaker Postoperative hematoma involving digestive system following digestive system procedure Recto-vesical fistula Sick sinus syndrome Sinus bradycardia UTI (urinary tract infection) Family History: Family History (Last Reviewed 06/06/24 @ 17:21 by Marily German MD) Mother Heart problem Family history: reviewed and not pertinent Surgical History: Surgical History (Last Reviewed 06/06/24 @ 17:21 by Marily German MD) Atrial fibrillation with rapid ventricular response Encounter for interrogation of cardiac pacemaker Malignant neoplasm of rectum Rectal carcinoma Rectal mass Social History: Social History (Last Reviewed 06/06/24 @ 17:21 by Marily German MD) Living Situation History: Household Members: Spouse Housing: House Do you presently have visiting nurse or other home services: Yes Alcohol History Details: 1. How often do you have a drink containing alcohol?: a. Never AUDIT-C Alcohol total score: 0 Currently Displaying Signs/Symptoms of Alcohol Withdrawal: No Tobacco History: Patient Tobacco Use Status: Former Tobacco user Tobacco use type: Cigarette Smoked in Last 30 Days: No e-Cigarette/Vaping Use: Never Used Substance Use History: Use of substances other than those prescribed or required for medical reasons: No Currently Displaying Signs/Symptoms of Drug Intoxication Withdrawal: No Domestic Abuse History: Have you been hit, kicked, punched, or otherwise hurt by someone within the past year? If so, by whom?: No Do you feel safe in your current relationship?: Yes Is there a partner from a previous relationship who is making you feel unsafe now?: No Are you made to feel afraid or neglected: No Advance Directives: Advance Directives: Yes Advance Directives on File: Yes Advance Directives Date on File: 11/29/22 Homicidal Assessment: Do you have a plan to hurt others: No Plan Nutrition Assessment: Recently lost weight without trying: Yes How much weight loss: 14-23 pounds Eating poorly because of decreased appetite: No Nutrition screen score: 4 Nutrition Risks: No Nutritional Risk Poor oral hygiene: No Occupation Assessmet: service: No Home Medications and Allergies Current Medications: Current Medications Acetaminophen (Acetaminophen 325 Mg Tablet) 650 mg PO Q6H PRN PRN Reason: Pain, Mild 1-3,fever,headache Last Admin: 06/06/24 05:40 Dose: 650 mg Amiodarone HCl (Amiodarone Hcl 200 Mg Tablet) 200 mg PO DAILY [facility] Last Admin: 06/07/24 08:13 Dose: 200 mg Calcium Carbonate (Calcium Carbonate 750 Mg Tab.Chew) 750 mg PO Q4H PRN PRN Reason: Heartburn Cholestyramine Resin (Cholestyramine (With Sugar) 4 Gm Powd.Pack) 4 gm PO DAILY [facility] Last Admin: 06/07/24 08:16 Dose: 4 gm Diltiazem HCl (Diltiazem Hcl Cd 240 Mg Cap.Er.Deg) 240 mg PO DAILY [facility]; Protocol Last Admin: 06/07/24 08:12 Dose: 240 mg Lactic Acid (Ammonium Lactate 12 % Lotion 226 Gm Bottle) 1 appl TOPICAL DAILY PRN; Protocol PRN Reason: Dry Skin Magnesium Hydroxide (Milk Of Magnesia 30 Ml Oral.Susp) 30 ml PO DAILY PRN PRN Reason: Constipation Melatonin (Melatonin 3 Mg Tablet) 6 mg PO BEDTIME PRN PRN Reason: Insomnia Metoprolol Tartrate (Metoprolol Tartrate 25 Mg Tablet) 25 mg PO DAILY [facility]; Protocol Last Admin: 06/07/24 08:12 Dose: 25 mg Omeprazole (Omeprazole 20 Mg Capsule.Dr) 20 mg PO DAILY@0630 [facility] Last Admin: 06/07/24 05:43 Dose: 20 mg Ondansetron HCl (Ondansetron Hcl 4 Mg/2 Ml Vial) 4 mg IVPUSH Q8H PRN PRN Reason: Nausea and Vomiting Sodium Chloride (0.9 % Sodium Chloride Flush 3 Ml Syringe) 3 ml IVFLUSH QSHIFT [facility] Last Admin: 06/07/24 08:21 Dose: 3 ml Vancomycin HCl (Vancomycin Hcl 125 Mg Capsule) 125 mg PO Q6H [facility] Last Admin: 06/07/24 09:53 Dose: 125 mg Home Medications ?Medication ?Instructions ?Recorded ?Confirmed ?Type ammonium lactate 12 % lotion 1 appl topical DAILY PRN Dry Skin 06/02/24 06/02/24 History apixaban 5 mg tablet (Eliquis) 5 mg PO BID 06/02/24 06/02/24 History cholestyramine (with sugar) 4 gram 1 ea PO DAILY 06/02/24 06/02/24 History powder for susp in a packet diltiazem HCl 240 mg 240 mg PO DAILY 06/02/24 06/02/24 History capsule,extended release 24 hr metoprolol tartrate 25 mg tablet 25 mg PO DAILY 06/02/24 06/02/24 History pantoprazole 20 mg tablet,delayed 20 mg PO DAILY@0630 06/02/24 06/02/24 History release vancomycin 125 mg capsule 125 mg PO MOWEFR@0900 06/02/24 06/02/24 History Allergies Allergy/AdvReac Type Severity Reaction Status Date / Time No Known Allergies [NKA] Allergy Mild NOT Verified 06/02/24 09:42 APPLICABLE Exam Vital signs: Vital Signs Temp 97.3 F 06/07/24 10:00 Pulse 60 06/07/24 10:00 Resp 16 06/07/24 10:00 BP 126/69 06/07/24 10:00 Pulse Ox 99 06/07/24 10:00 O2 Del Method Room Air 06/07/24 10:00 O2 Flow Rate 2 06/07/24 07:09 Intake & Output 06/06/24 06/07/24 06/07/24 18:59 06:59 18:59 Intake Total 100 / 460 360 / 460 240 / 240 Balance 100 / 460 360 / 460 240 / 240 Intake: Intake, Oral Amount 360 / 360 240 / 240 Intake, IV Amount 100 / 100 Piperacillin Sodium/Tazobactam 100 / 100 4.5 gm In 0.9 % Sodium Chloride 100 ml @ 200 mls/hr IV Q12H [facility] Rx#:[id number] Other: Breakfast % Eaten 100% Lunch % Eaten 50% Number of Bowel Movements 3 1 Urine Color Yellow Last Bowel Movement 06/06/24 Stool Bedpan Incontinent Stool Amount Small Moderate Stool Color Brown Brown Stool Consistency Watery Loose Weight 60.8 kg BMI result Body Mass Index 19.8 - Constitutional Present: no acute distress, average body habitus, chronically ill appearing - Routine HEENT Exam Head: Present: normal inspection - Routine Neck Exam Present: full ROM - Routine Respiratory Exam Present: decreased breath sounds, CTAB - Routine Cardiovascular Exam Cardiovascular: Present: RRR, S1, S2 - Routine Abdominal Exam Present: diminished bowel sounds, soft - Routine Extremities Exam Present: pedal edema - Routine Skin Exam Present: intact Data - Labs CBC & Chem 7: 06/06/24 08:22 06/06/24 08:22 - Imaging Radiologist's impression: ITS Impressions Venous Duplex 06/04/24 14:25 IMPRESSION: No evidence of deep venous thrombosis involving the right upper extremity. Electronically signed by: Lior Lewis MD 06/04/2024 03:08 PM EDT RP Assessment and Plan Patient Active problem list reviewed?: Yes (1) Left leg DVT Status: Acute Assessment and plan: 1. This is a 78-year-old male with multiple medical problems and complicated medical history who is now admitted for recurrent C diff colitis and left lower extremity DVT. Left lower extremity ultrasound showed extensive DVT extending from calf veins into popliteal, femoral and proximal deep femoral and common femoral veins. CT abdomen/pelvis without contrast shows right percutaneous nephrostomy catheter in place, air in the collecting system, probably iatrogenic, infectious or fistula. Indeterminate exophytic lesion of left kidney. Ward colitis with indeterminate soft tissue density with air just below aortic bifurcation, fistulous process can not be excluded. He noticed swelling in his left leg since 05/31/2024. He says he was not taking Eliquis since he left the hospital on April 18. Unfortunately he has developed recurrent thrombocytopenia with platelet counts of 25 K. he has leukocytosis with WBC count of 26.6 with toxic vacuolation, hemoglobin returned to his baseline of 11.9 gram/dL. He is afebrile, blood and urine cultures are pending. He has been started on Zosyn, linezolid, vancomycin and Flagyl. Cause of DVT is probably prolonged hospitalization for over a month and not being on anticoagulation/prophylaxis. Heparin induced thrombocytopenia is also in the differential as he has had ongoing exposure to heparin during dialysis and he has had greater than 50% drop in platelet counts since April. However it is difficult to ascertain the timeline and exposure to heparin. This could also explain thrombosis. HIT assay is pending. Cause of drop in platelet count could also be DIC because of sepsis. He has mild elevation of PT/PTT and decline in fibrinogen level. He received platelet transfusion and underwent IVC filter placement on 06/04/2024. For his left lower extremity DVT, anticoagulation is needed. If platelet counts come at least above 30,000, he could be started on low-dose anticoagulation with argatroban until HIT assay comes back. Patient continues to deny any pain in his left leg or foot. Fibrinogen level is mildly decreased. Hit assay is still pending. He received another unit of platelet transfusion yesterday and his platelets are now 37 K. There has been gradual decrease in hemoglobin. Continue to monitor CBC daily. If His platelets, rise above 50 K he can be started on anticoagulation. - Time Spent With Patient Time Spent with Patient (in minutes): 20
[2024-06-07 13:37] LABS: Hematocrit 28.9 % (42.0-52.0); Hemoglobin 9.2 g/dl (14.0-18.0); Mean Corpuscular HGB Conc 31.8 g/dl (31.0-36.0); Mean Corpuscular Hemoglobin 31.4 pg (27.0-33.0); Mean Corpuscular Volume 98.6 fL (80.0-98.0); Platelet Count 37 X10*3/uL (160-400); Red Blood Count 2.93 X10*6/uL (4.60-5.80); White Blood Count 15.7 X10*3/uL (4.8-10.8)
--- NOTE | 2024-06-07 13:37 | P.PNNP_ITS ---
Subjective Subjective Date of Service: 06/07/24 Principal diagnosis: ESRD Interval history: pt seen in dialysis Physical Exam 2 Vital Signs: Vital Signs: Last Vital Signs Temp 97.3 F 06/07/24 10:00 Pulse 60 06/07/24 10:00 Resp 16 06/07/24 10:00 BP 126/69 06/07/24 10:00 Pulse Ox 99 06/07/24 10:00 O2 Del Method Room Air 06/07/24 10:00 O2 Flow Rate 2 06/07/24 07:09 BMI result Body Mass Index 19.8 cvs: s1s2 RS; cta Abd; soft Objective Data Labs 06/07/24 13:23 06/07/24 13:23 Microbiology Microbiology Results: Microbiology 06/02/24 10:35 Blood - Venous Blood Culture - Final No growth after 5 days. 06/02/24 10:34 Blood - Venous Blood Culture - Final No growth after 5 days. 06/02/24 17:46 Blood - Central Line Blood Culture - Preliminary No growth after 48 hours. 06/02/24 Unknown Urine Other - Nephrostomy Urine Culture - Final Procedures Date of Service Date of Service: 06/07/24 Assessment & Plan Assessment and plan (1) ESRD (end stage renal disease) on dialysis: Status: Acute Plan ESRD on HD m-w- at [facility] via PC Admitted with L Lower ext DVT/ Ward colitis sepsis Klebsiella bacteremia in the past s/p new dialysis tunnelled catheter- last admission CT abdomen unchanged c/w right-sided hydronephrosis, complex hemorrhagic exophytic lesion nephrogenic anemia Thrombocytopenia ? HIT REC Usual HD MWF Continue HD today and follow TTS schedule in hospital - Can be changed to MWF when he gets discharged NO HEPARIN to prime machine OR TO LOCK PERMCATH - Will use NS - D/w HD nurse in detail Hematology f/u - s/p IVC filterplacemnet Antibiotics as per medical team No Need for EPO Urology has seen pt- PCN removed Re antibiotics - Pt on Linzolid and Zosyn Time Spent With Patient Time: Total time managing care of this patient today ____ minutes. Progress Note: Quality Stroke Does the patient have a stroke diagnosis?: No
[2024-06-07 13:54] LABS: Anion Gap 11 (12-20); Blood Urea Nitrogen 14 mg/dL (9-16); Calcium 6.4 mg/dL (8.4-10.2); Carbon Dioxide 23 mmol/L (22-29); Chloride 106 mmol/L (96-108); Creatinine Clr Calc Pharmacy 16.4; Estimated Glomerular Filt Rate 19; Glucose Random 89 mg/dL (60-115); Sodium 136 mmol/L (135-145)
[2024-06-07 13:56] LABS: Band Neutrophils Percent 5 % (3-5); Eosinophils Absolute Manual 0.2 X10*3/uL (0.0-0.4); Eosinophils Percent Manual 1 % (0-4); Lymphocytes Absolute Manual 0.2 X10*3/uL (1.2-4.9); Lymphocytes Percent Manual 1 % (20-40); Metamyelocytes Absolute 0.3 X10*3/uL; Metamyelocytes Percent 2 %; Neutrophils Absolute Manual 15.1 X10*3/uL (2.0-8.3); Neutrophils Percent Manual 91 % (45-73)
[2024-06-07 13:58] LABS: Burr Cells 2+ (3-5) /OIF; Macrocytosis 1+ (5-14) /OIF; Platelet Estimate DECREASED (NORMAL); Platelet Morphology Comment NORMAL; RBC Morphology NOTED
[2024-06-07 13:59] LABS: Dohle Bodies PRESENT
[2024-06-07 14:23] LABS: HIT-Patient Optical Density 0.083 OD UNITS; Heparin Induced Plt Ab Negative (Negative)
[2024-06-07 15:21] LABS: Partial Thromboplastin Time 36.5 SEC (26.0-36.8)
[2024-06-07] MEDS: Argatroban 250 MG in 0.9 % Sodium Chloride 250 ML 7.37 MG IV (16:50)
[2024-06-07 16:58] VITALS: BP 121/58; PULSE 61; RESP 17; TEMP 36.4
[2024-06-07 19:32] LABS: Partial Thromboplastin Time 107.5 SEC (26.0-36.8)
[2024-06-07 23:20] VITALS: BP 120/70; PULSE 65; RESP 17; TEMP 36.7; O2SAT 97
[2024-06-08 00:08] LABS: Partial Thromboplastin Time 97.8 SEC (26.0-36.8)
[2024-06-08 03:23] VITALS: BP 134/73; PULSE 63; RESP 16; TEMP 36.2; O2SAT 95
[2024-06-08] MEDS: vancomycin HCL 125 MG CAPSULE PO ×4 (03:39→22:03)
[2024-06-08 04:34] LABS: Partial Thromboplastin Time 83.8 SEC (26.0-36.8)
[2024-06-08] MEDS: Omeprazole 20 MG CAPSULE.DR PO (05:50)
[2024-06-08 06:31] LABS: Partial Thromboplastin Time 94.4 SEC (26.0-36.8)
[2024-06-08 06:51] LABS: Anion Gap 16 (12-20); Blood Urea Nitrogen 10 mg/dL (9-16); Calcium 6.8 mg/dL (8.4-10.2); Carbon Dioxide 24 mmol/L (22-29); Chloride 104 mmol/L (96-108); Creatinine Clr Calc Pharmacy 20.9; Estimated Glomerular Filt Rate 25; Potassium 3.7 mmol/L (3.3-5.1); Sodium 140 mmol/L (135-145)
[2024-06-08 07:02] LABS: Glucose, Whole Blood 39 mg/dL (60-115)
[2024-06-08 07:03] LABS: Glucose Random 58 mg/dL (60-115)
[2024-06-08 07:19] VITALS: BP 143/70; PULSE 64; RESP 16; TEMP 36; O2SAT 100
--- NOTE | 2024-06-08 07:19 | HO.PM.IMPN ---
Subjective Subjective Date of Service: 06/09/24 Interval History: Seen in follow-up for pancolitis/C diff, UTI, DVT Interval history: Reports feeling well overall. States the pain around the nephrostomy site has completely resolved since the removal. He is making small amounts of urine and continues with HD on TThS. Platelet levels stable since yesterday but remains significantly thrombocytopenic. Denies any bleeding or easy bruisability. Review of Systems Review of Systems: Yes all other systems are reviewed and are negative Physical Exam Vital Signs: Vital Signs: Last Vital Signs Temp 97.2 F 06/08/24 03:23 Pulse 63 06/08/24 03:23 Resp 16 06/08/24 03:23 BP 134/73 06/08/24 03:23 Pulse Ox 95 06/08/24 03:23 O2 Del Method Room Air 06/08/24 03:23 O2 Flow Rate 2 06/07/24 07:09 BMI result Body Mass Index 19.8 Objective Data Active Medications Acetaminophen (Acetaminophen 325 Mg Tablet) 650 mg PO Q6H PRN PRN Reason: Pain, Mild 1-3,fever,headache Last Admin: 06/06/24 05:40 Dose: 650 mg Documented By: JESUS Amiodarone HCl (Amiodarone Hcl 200 Mg Tablet) 200 mg PO DAILY [facility] Last Admin: 06/07/24 08:13 Dose: 200 mg Documented By: VENITA Calcium Carbonate (Calcium Carbonate 750 Mg Tab.Chew) 750 mg PO Q4H PRN PRN Reason: Heartburn Cholestyramine Resin (Cholestyramine (With Sugar) 4 Gm Powd.Pack) 4 gm PO DAILY [facility] Last Admin: 06/07/24 08:16 Dose: 4 gm Documented By: VENITA Dextrose (Dextrose 50 % 25 Gm/50 Ml Syringe) 25 gm IVPUSH Q15M PRN PRN Reason: per Hypoglycemia Standing Ord. Diltiazem HCl (Diltiazem Hcl Cd 240 Mg Cap.Er.Deg) 240 mg PO DAILY [facility]; Protocol Last Admin: 06/07/24 08:12 Dose: 240 mg Documented By: VENITA Argatroban 250 mg/ Sodium (Chloride) 252.5 mls @ 7.369 mls/hr IV .Q24H [facility]; Protocol Last Titration: 06/08/24 06:30 Dose: 0 mcg/kg/min, 0 mls/hr Documented By: DEV Lactic Acid (Ammonium Lactate 12 % Lotion 226 Gm Bottle) 1 appl TOPICAL DAILY PRN; Protocol PRN Reason: Dry Skin Magnesium Hydroxide (Milk Of Magnesia 30 Ml Oral.Susp) 30 ml PO DAILY PRN PRN Reason: Constipation Melatonin (Melatonin 3 Mg Tablet) 6 mg PO BEDTIME PRN PRN Reason: Insomnia Metoprolol Tartrate (Metoprolol Tartrate 25 Mg Tablet) 25 mg PO DAILY [facility]; Protocol Last Admin: 06/07/24 08:12 Dose: 25 mg Documented By: VENITA Omeprazole (Omeprazole 20 Mg Capsule.Dr) 20 mg PO DAILY@0630 [facility] Last Admin: 06/08/24 05:50 Dose: 20 mg Documented By: DEV Ondansetron HCl (Ondansetron Hcl 4 Mg/2 Ml Vial) 4 mg IVPUSH Q8H PRN PRN Reason: Nausea and Vomiting Sodium Chloride (0.9 % Sodium Chloride Flush 3 Ml Syringe) 3 ml IVFLUSH QSHIFT [facility] Last Admin: 06/08/24 00:03 Dose: Not Given Documented By: DEV Non-Admin Reason: IV Running Vancomycin HCl (Vancomycin Hcl 125 Mg Capsule) 125 mg PO Q6H [facility] Stop: 06/12/24 15:59 Last Admin: 06/08/24 03:39 Dose: 125 mg Documented By: DEV Vancomycin HCl (Vancomycin Hcl 125 Mg Capsule) 125 mg PO TID [facility] Stop: 06/19/24 21:59 Vancomycin HCl (Vancomycin Hcl 125 Mg Capsule) 125 mg PO BID [facility] Stop: 06/26/24 21:59 Labs 06/09/24 08:10 06/08/24 07:35 Labs: Laboratory Results - last 24 hr 06/04/24 06/07/24 06/07/24 06:12 13:23 15:06 MCV 98.6 H MCH 31.4 MCHC 31.8 RDW 18.0 H Plt Count 37 L MPV Not Reportable Immature Gran % (Auto) Cancelled Neut % (Auto) Cancelled Lymph % (Auto) Cancelled [place] % (Auto) Cancelled Eos % (Auto) Cancelled Baso % (Auto) Cancelled Lymph # (Auto) Cancelled [place] # (Auto) Cancelled Eos # (Auto) Cancelled Baso # (Auto) Cancelled Abs Immat Gran (auto) Cancelled Absolute Neuts (auto) Cancelled Absolute Nucleated RBC 0.000 Nucleated RBC % (auto) 0.0 Neutrophils % (Manual) 91 H Band Neutrophils % 5 Lymphocytes % (Manual) 1 L Eosinophils % (Manual) 1 Metamyelocytes % 2 Abs Neuts (Manual) 15.1 H Lymphocytes # (Manual) 0.2 L Eosinophils # (Manual) 0.2 Metamyelocytes # 0.3 Dohle Bodies PRESENT Platelet Estimate DECREASED Plt Morphology Comment NORMAL RBC Morphology NOTED Macrocytosis 1+ (5-14) Imllicent Cells 2+ (3-5) APTT 36.5 Anion Gap 11 L Estim Creat Clear Calc 16.4 Estimated GFR 19 POC Glucose Random Glucose 89 Calcium 6.4 L Heparin Dep Plt Ab OD 0.083 Hep-Induced Plt Ab Carmen Negative 06/07/24 06/07/24 06/08/24 19:10 23:25 04:03 MCV MCH MCHC RDW Plt Count MPV Immature Gran % (Auto) Neut % (Auto) Lymph % (Auto) [place] % (Auto) Eos % (Auto) Baso % (Auto) Lymph # (Auto) [place] # (Auto) Eos # (Auto) Baso # (Auto) Abs Immat Gran (auto) Absolute Neuts (auto) Absolute Nucleated RBC Nucleated RBC % (auto) Neutrophils % (Manual) Band Neutrophils % Lymphocytes % (Manual) Eosinophils % (Manual) Metamyelocytes % Abs Neuts (Manual) Lymphocytes # (Manual) Eosinophils # (Manual) Metamyelocytes # Dohle Bodies Platelet Estimate Plt Morphology Comment RBC Morphology Macrocytosis Millicent Cells APTT 107.5 H* D 97.8 H* 83.8 H* Anion Gap Estim Creat Clear Calc Estimated GFR POC Glucose Random Glucose Calcium Heparin Dep Plt Ab OD Hep-Induced Plt Ab Carmen 06/08/24 06/08/24 06:11 06:58 MCV MCH MCHC RDW Plt Count MPV Immature Gran % (Auto) Neut % (Auto) Lymph % (Auto) [place] % (Auto) Eos % (Auto) Baso % (Auto) Lymph # (Auto) [place] # (Auto) Eos # (Auto) Baso # (Auto) Abs Immat Gran (auto) Absolute Neuts (auto) Absolute Nucleated RBC Nucleated RBC % (auto) Neutrophils % (Manual) Band Neutrophils % Lymphocytes % (Manual) Eosinophils % (Manual) Metamyelocytes % Abs Neuts (Manual) Lymphocytes # (Manual) Eosinophils # (Manual) Metamyelocytes # Dohle Bodies Platelet Estimate Plt Morphology Comment RBC Morphology Macrocytosis [place] Cells APTT 94.4 H* Anion Gap 16 Estim Creat Clear Calc 20.9 Estimated GFR 25 POC Glucose 39 L* Random Glucose 58 L* Calcium 6.8 L D Heparin Dep Plt Ab OD Hep-Induced Plt Ab Carmen Microbiology Microbiology Results: Microbiology 06/02/24 17:46 Blood Culture - Final Blood - Central Line No growth after 5 days. 06/02/24 10:35 Blood Culture - Final Blood - Venous No growth after 5 days. 06/02/24 10:34 Blood Culture - Final Blood - Venous No growth after 5 days. Assessment and Plan (1) Recurrent Clostridioides difficile diarrhea: Status: Acute (2) Thrombocytopenia: Status: Acute (3) ESRD (end stage renal disease) on dialysis: Status: Acute (4) UTI (urinary tract infection): Status: Acute Plan 78-year-old male with history of BPH, recurrent C diff colitis, hyperlipidemia, hypertension, history of alcohol use disorder, mild cognitive impairments, sick sinus syndrome s/p pacemaker placement, ESRD on HD MWF, chronic thrombocytopenia admitted for pancolitis and catheter associated UTI Acute on chronic thrombocytopenia Platelets [id number] HIT panel pending. Per Dr. Abdul initiate actroban once PLT >08281 while awaiting HIT. Full AC when PLT >5000 Also possibly r/t infection Hold Eliquis until plt reaches 50K Follow platelets closely Heme following Acute pancolitis Cdiff toxin and gene positive, recurrent ID>Stop zosyn. PO vanco (06/02) QID x 10 days then TID x 1 week, then daily x1 week, then MWF indefinitely given recurrence Diet as tolerated Follow CBC, cultures Concern for UTI Complicated by Right-sided nephrostomy tube. CT Right percutaneous nephrostomy catheter in place air within the collecting system on the right probably iatrogenic infectious process or fistula can not be excluded Urology consult History VRE UTI. Initially treated with IV linezolid, urine cx negative Extensive LLE DVT No AC due to profound thombocytopenia- per Dr. Ramos, continue holding until sunday Vascular surgery following s/p IVC filter 06/04 ESRD on HD MWF Nephrology following no heparin for flushing Recent dialysis catheter line infection Blood cultures 03/28 positive for Klebsiella. 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
[2024-06-08 07:21] LABS: Glucose, Whole Blood 31 mg/dL (60-115)
[2024-06-08] MEDS: Dextrose 50 % 25 GM/50 ML SYRINGE IVPUSH ×3 (07:32→22:00)
[2024-06-08 07:45] LABS: Hematocrit 32.2 % (42.0-52.0); Hemoglobin 10.1 g/dl (14.0-18.0); Mean Corpuscular HGB Conc 31.4 g/dl (31.0-36.0); Mean Corpuscular Hemoglobin 31.7 pg (27.0-33.0); Mean Corpuscular Volume 100.9 fL (80.0-98.0); Red Blood Count 3.19 X10*6/uL (4.60-5.80); Red Cell Distribution Width 18.2 % (11.0-16.0); White Blood Count 15.7 X10*3/uL (4.8-10.8)
[2024-06-08 07:48] LABS: Platelet Count 36 X10*3/uL (160-400)
[2024-06-08 07:54] LABS: Glucose, Whole Blood 43 mg/dL (60-115)
[2024-06-08] MEDS: Dextrose 10 % 1,000 ML 50 ML IVCONT (07:58)
[2024-06-08] MEDS: 0.9 % Sodium Chloride Flush 3 ML SYRINGE IVFLUSH ×2 (08:02→17:00)
--- NOTE | 2024-06-08 08:02 | PC.NURSE ---
Provider would like patient transferred to M/T, Clin sup notified.
[2024-06-08 08:03] LABS: Glucose Random 89 mg/dL (60-115)
[2024-06-08 08:23] LABS: Glucose, Whole Blood 159 mg/dL (60-115)
[2024-06-08 08:53] VITALS: BP 136/59; PULSE 60; RESP 18; TEMP 36.6; O2SAT 96
[2024-06-08 09:00] LABS: Glucose, Whole Blood 137 mg/dL (60-115)
--- NOTE | 2024-06-08 09:14 | PC.NURSE ---
Random glucose 58. POC checked at 0658 39. Pt asymptomatic, alert and oriented. Pt drank 30mg carbs per policy Nathalia Dawn [employer] made aware and Stat random glucose ordered per policy. Rechecked POC at 0717 31. [employer] made aware 50ml D50 IVP given per policy at 0732. Random glucose lab resulted at 0735 89. POC rechecked at 0749 43. 50ml D50 IVP given per policy at 0852 and continuous IVF D10 at 50ml/hr started at 0852. POC rechecked at 0819 159. Pt transferred to Filtr[facility] per [employer].
[2024-06-08] MEDS: dilTIAZem HCL CD 240 MG CAP.ER.DEG PO (10:01)
[2024-06-08] MEDS: Metoprolol Tartrate 25 MG TABLET PO (10:01)
[2024-06-08] MEDS: Cholestyramine (With Sugar) 4 GM POWD.PACK PO (10:01)
[2024-06-08] MEDS: Amiodarone HCL 200 MG TABLET PO (10:02)
[2024-06-08 10:36] LABS: Partial Thromboplastin Time 63.1 SEC (26.0-36.8)
[2024-06-08 11:18] LABS: Glucose, Whole Blood 85 mg/dL (60-115)
--- NOTE | 2024-06-08 11:43 | P.PNHO-ONC_ITS ---
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 Patient had prolonged hospitalization at [facility] from March 25 to 04/18/2024 following which he was in a half-way for 3 weeks and just got home a few days back. He says he came back to the hospital because of recurrent diarrhea as well as pain at the site of right nephrostomy tube. He says he is unable to sleep at night because of this. He had right nephrostomy tube placed in March 2024 because of disruption of distal right ureter which may have occurred during reversal of colostomy performed at [facility] as per urology. During the prolonged hospitalization in March and April 2024 patient had developed severe thrombocytopenia with platelet counts below 20 K. he also developed GI bleeding requiring 3 units PRBC transfusion. EGD showed gastritis, duodenitis and candidal esophagitis that was treated with Diflucan. 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 His Eliquis was stopped. Thrombocytopenia was felt to be multifactorial, related to sepsis with Klebsiella line infection, use of antibiotics, as well as previous alcohol use, splenomegaly. At the time of discharge his platelet counts had come up to about 85 K. During that same admission he was noted to have obstruction of the right distal ureter and right PCN was placed on 04/08/2024. Patient states that he was never diagnosed with DVT in the past. He noticed swelling of his left leg last week after being home for a few days. He denies any pleuritic chest pain, shortness of breath or cough. The left leg swelling is about the same. He denies any significant pain in the leg. He had IVC filter placed and received 1 unit platelet transfusion. Today patient states that there has been no pain in his foot. No bruising or bleeding. No hematuria hematochezia. Review of Systems - Constitutional Reports anorexia - ENT Reports other - Cardiovascular Reports shortness of breath with activity - Respiratory Reports dyspnea on exertion - Gastrointestinal Reports dyspepsia - Genitourinary Genitourinary: Reports other - Musculoskeletal Reports body aches - Neurologic Reports system reviewed and no additional complaints, except as documented, Reports hearing normal, Denies numbness, Denies sensory deficit, Denies weakness [facility] Medical History: Medical History (Last Reviewed 06/08/24 @ 09:16 by Gabriela Thurman RN) Acute renal failure Aftercare following left shoulder joint replacement surgery Atrial fibrillation Borderline hyperlipidemia BPH (benign prostatic hyperplasia) C. difficile colitis Cancer of kidney End stage renal disease EtOH dependence High cholesterol HTN (hypertension) Hypertension Ileus Inhibited sex excitement Mild cognitive impairment OA (osteoarthritis) Obesity Pacemaker Postoperative hematoma involving digestive system following digestive system procedure Recto-vesical fistula Sick sinus syndrome Sinus bradycardia UTI (urinary tract infection) Family History: Family History (Last Reviewed 06/06/24 @ 17:21 by Marily German MD) Mother Heart problem Family history: reviewed and not pertinent Surgical History: Surgical History (Last Reviewed 06/08/24 @ 09:16 by Gabriela Thurman RN) Atrial fibrillation with rapid ventricular response Encounter for interrogation of cardiac pacemaker Malignant neoplasm of rectum Rectal carcinoma Rectal mass Social History: Social History (Last Reviewed 06/06/24 @ 17:21 by Marily German MD) Living Situation History: Household Members: Family Housing: House Do you presently have visiting nurse or other home services: No Alcohol History Details: 1. How often do you have a drink containing alcohol?: a. Never 3. How often do you have six or more drinks on one occasion?: a. Never AUDIT-C Alcohol total score: 0 Last drink: Unknown Currently Displaying Signs/Symptoms of Alcohol Withdrawal: No Tobacco History: Patient Tobacco Use Status: Former Tobacco user Tobacco use type: Cigarette Smoked in Last 30 Days: No e-Cigarette/Vaping Use: Never Used Patient Interested in Nicotine Replacement: No Patient Given Instructions on How to Stop Smoking: No Second Hand Smoke Exposure: No Substance Use History: Use of substances other than those prescribed or required for medical reasons : No Last Used Substance: Unknown Currently Displaying Signs/Symptoms of Drug Intoxication Withdrawal: No Any prior treatment program specific to substance use: No Domestic Abuse History: Have you been hit, kicked, punched, or otherwise hurt by someone within the past year? If so, by whom?: No Do you feel safe in your current relationship?: Yes Is there a partner from a previous relationship who is making you feel unsafe now?: No Are you made to feel afraid or neglected: No Advance Directives: Advance Directives: Yes Advance Directives on File: Yes Advance Directives Date on File: 11/29/22 Homicidal Assessment: Do you have a plan to hurt others: No Plan Nutrition Assessment: Recently lost weight without trying: No How much weight loss: 14-23 pounds Eating poorly because of decreased appetite: No Nutrition screen score: 4 Nutrition Risks: No Nutritional Risk Poor oral hygiene: No Occupation Assessmet: service: No Home Medications and Allergies Current Medications: Current Medications Acetaminophen (Acetaminophen 325 Mg Tablet) 650 mg PO Q6H PRN PRN Reason: Pain, Mild 1-3,fever,headache Last Admin: 06/06/24 05:40 Dose: 650 mg Amiodarone HCl (Amiodarone Hcl 200 Mg Tablet) 200 mg PO DAILY [facility] Last Admin: 06/08/24 10:02 Dose: 200 mg Calcium Carbonate (Calcium Carbonate 750 Mg Tab.Chew) 750 mg PO Q4H PRN PRN Reason: Heartburn Cholestyramine Resin (Cholestyramine (With Sugar) 4 Gm Powd.Pack) 4 gm PO DAILY [facility] Last Admin: 06/08/24 10:01 Dose: 4 gm Dextrose (Dextrose 50 % 25 Gm/50 Ml Syringe) 25 gm IVPUSH Q15M PRN PRN Reason: per Hypoglycemia Standing Ord. Last Admin: 06/08/24 07:52 Dose: 25 gm Diltiazem HCl (Diltiazem Hcl Cd 240 Mg Cap.Er.Deg) 240 mg PO DAILY [facility]; Protocol Last Admin: 06/08/24 10:01 Dose: 240 mg Argatroban 250 mg/ Sodium (Chloride) 252.5 mls @ 7.369 mls/hr IV .Q24H [facility]; Protocol Last Titration: 06/08/24 07:37 Dose: 0.25 mcg/kg/min, 0.92 mls/hr Dextrose (D10) 1,000 mls @ 50 mls/hr IVCONT .Q20H [facility] Last Admin: 06/08/24 07:58 Dose: 50 mls/hr Lactic Acid (Ammonium Lactate 12 % Lotion 226 Gm Bottle) 1 appl TOPICAL DAILY PRN; Protocol PRN Reason: Dry Skin Magnesium Hydroxide (Milk Of Magnesia 30 Ml Oral.Susp) 30 ml PO DAILY PRN PRN Reason: Constipation Melatonin (Melatonin 3 Mg Tablet) 6 mg PO BEDTIME PRN PRN Reason: Insomnia Metoprolol Tartrate (Metoprolol Tartrate 25 Mg Tablet) 25 mg PO DAILY [facility]; Protocol Last Admin: 06/08/24 10:01 Dose: 25 mg Omeprazole (Omeprazole 20 Mg Capsule.Dr) 20 mg PO DAILY@0630 [facility] Last Admin: 06/08/24 05:50 Dose: 20 mg Ondansetron HCl (Ondansetron Hcl 4 Mg/2 Ml Vial) 4 mg IVPUSH Q8H PRN PRN Reason: Nausea and Vomiting Sodium Chloride (0.9 % Sodium Chloride Flush 3 Ml Syringe) 3 ml IVFLUSH QSHIFT [facility] Last Admin: 06/08/24 08:02 Dose: 3 ml Vancomycin HCl (Vancomycin Hcl 125 Mg Capsule) 125 mg PO Q6H [facility] Stop: 06/12/24 15:59 Last Admin: 06/08/24 10:01 Dose: 125 mg Vancomycin HCl (Vancomycin Hcl 125 Mg Capsule) 125 mg PO TID [facility] Stop: 06/19/24 21:59 Vancomycin HCl (Vancomycin Hcl 125 Mg Capsule) 125 mg PO BID [facility] Stop: 06/26/24 21:59 Home Medications ?Medication ?Instructions ?Recorded ?Confirmed ?Type ammonium lactate 12 % lotion 1 appl topical DAILY PRN Dry Skin 06/02/24 06/02/24 History apixaban 5 mg tablet (Eliquis) 5 mg PO BID 06/02/24 06/02/24 History cholestyramine (with sugar) 4 gram 1 ea PO DAILY 06/02/24 06/02/24 History powder for susp in a packet diltiazem HCl 240 mg 240 mg PO DAILY 06/02/24 06/02/24 History capsule,extended release 24 hr metoprolol tartrate 25 mg tablet 25 mg PO DAILY 06/02/24 06/02/24 History pantoprazole 20 mg tablet,delayed 20 mg PO DAILY@0630 06/02/24 06/02/24 History release vancomycin 125 mg capsule 125 mg PO MOWEFR@0900 06/02/24 06/02/24 History Allergies Allergy/AdvReac Type Severity Reaction Status Date / Time No Known Allergies [NKA] Allergy Mild NOT Verified 06/02/24 09:42 APPLICABLE Exam Vital signs: Vital Signs Temp 97.9 F 06/08/24 08:53 Pulse 60 06/08/24 08:53 Resp 18 06/08/24 08:53 BP 136/59 L 06/08/24 08:53 Pulse Ox 96 06/08/24 08:53 O2 Del Method Room Air 06/08/24 08:53 O2 Flow Rate 2 06/07/24 07:09 Intake & Output 06/07/24 06/08/24 06/08/24 18:59 06:59 18:59 Intake Total 240 / 485.020 245.020 / 485.020 0 / 0 Balance 240 / 485.020 245.020 / 485.020 0 / 0 Intake: Intake, Oral Amount 240 / 440 200 / 440 Intake, IV Amount 45.020 / 45.020 0 / 0 Argatroban 250 mg In 0.9 % 45.020 / 45.020 0 / 0 Sodium Chloride 250 ml @ 2 MCG/ KG/MIN 7.369 mls/hr IV .Q24H [facility] Rx#:[id number] Other: Meal Refused No NPO No Breakfast % Eaten 100% Number of Bowel Movements 1 1 Last Bowel Movement 06/08/24 06/08/24 Stool Bedside Commode Bedside Commode Stool Amount Moderate Large Stool Color Brown Dark Brown Stool Consistency Loose Loose Weight 60.8 kg BMI result Body Mass Index 19.8 - Constitutional Present: average body habitus, chronically ill appearing - Routine HEENT Exam Head: Present: normal inspection ENT: Present: normal external ear exam - Routine Neck Exam Present: full ROM - Routine Respiratory Exam Present: decreased breath sounds, CTAB - Routine Cardiovascular Exam Cardiovascular: Present: RRR, S1, S2 - Routine Abdominal Exam Present: diminished bowel sounds, soft - Routine Extremities Exam Present: pedal edema - Routine Skin Exam Present: intact Data - Labs CBC & Chem 7: 06/08/24 07:41 06/08/24 07:35 - Imaging Radiologist's impression: ITS Impressions Venous Duplex 06/04/24 14:25 IMPRESSION: No evidence of deep venous thrombosis involving the right upper extremity. Electronically signed by: Lior Lewis MD 06/04/2024 03:08 PM EDT RP Assessment and Plan Patient Active problem list reviewed?: Yes (1) Left leg DVT Status: Acute Assessment and plan: 1. This is a 78-year-old male with multiple medical problems and complicated medical history who is now admitted for recurrent C diff colitis and left lower extremity DVT. Left lower extremity ultrasound showed extensive DVT extending from calf veins into popliteal, femoral and proximal deep femoral and common femoral veins. CT abdomen/pelvis without contrast shows right percutaneous nephrostomy catheter in place, air in the collecting system, probably iatrogenic, infectious or fistula. Indeterminate exophytic lesion of left kidney. Ward colitis with indeterminate soft tissue density with air just below aortic bifurcation, fistulous process can not be excluded. He noticed swelling in his left leg since 05/31/2024. He says he was not taking Eliquis since he left the hospital on April 18. Unfortunately he has developed recurrent thrombocytopenia with platelet counts of 25 K. he has leukocytosis with WBC count of 26.6 with toxic vacuolation, hemoglobin returned to his baseline of 11.9 gram/dL. He is afebrile, blood and urine cultures are pending. He has been started on Zosyn, linezolid, vancomycin and Flagyl. Cause of DVT is probably prolonged hospitalization for over a month and not being on anticoagulation/prophylaxis. Heparin induced thrombocytopenia is also in the differential as he has had ongoing exposure to heparin during dialysis and he has had greater than 50% drop in platelet counts since April. However it is difficult to ascertain the timeline and exposure to heparin. This could also explain thrombosis. HIT assay is pending. Cause of drop in platelet count could also be DIC because of sepsis. He has mild elevation of PT/PTT and decline in fibrinogen level. He received platelet transfusion and underwent IVC filter placement on 06/04/2024. For his left lower extremity DVT, anticoagulation is needed. If platelet counts come at least above 30,000, he could be started on low-dose anticoagulation with argatroban until HIT assay comes back. Patient continues to deny any pain in his left leg or foot. Fibrinogen level is mildly decreased. Hit assay is still pending. He received another unit of platelet transfusion yesterday and his platelets are now 37 K. There has been gradual decrease in hemoglobin. Continue to monitor CBC daily. If His platelets, rise above 50 K he can be started on anticoagulation. (2) Thrombocytopenia Status: Acute Assessment and plan: There has been no bleesing. He seems stable. The HIT studies are still pending. He seets stable. - Time Spent With Patient Time Spent with Patient (in minutes): 15
[2024-06-08 11:53] LABS: Partial Thromboplastin Time 58.7 SEC (26.0-36.8)
[2024-06-08 12:00] VITALS: BP 110/59; PULSE 60; RESP 16; TEMP 36.6; O2SAT 95
[2024-06-08 13:18] LABS: Glucose, Whole Blood 71 mg/dL (60-115)
[2024-06-08 15:36] VITALS: BP 121/58; PULSE 60; RESP 16; TEMP 36.8; O2SAT 90
[2024-06-08 15:48] LABS: Partial Thromboplastin Time 25.7 SEC (26.0-36.8)
[2024-06-08] MEDS: Argatroban 250 MG in 0.9 % Sodium Chloride 250 ML IV (16:23)
[2024-06-08 16:44] LABS: Glucose, Whole Blood 70 mg/dL (60-115)
[2024-06-08 18:44] LABS: Glucose, Whole Blood 66 mg/dL (60-115)
[2024-06-08 19:26] VITALS: BP 120/60; PULSE 60; RESP 16; TEMP 36.6; O2SAT 91
[2024-06-08 20:12] LABS: Partial Thromboplastin Time 54.3 SEC (26.0-36.8)
[2024-06-08 21:58] LABS: Glucose, Whole Blood 42 mg/dL (60-115)
[2024-06-08 22:54] LABS: Glucose, Whole Blood 152 mg/dL (60-115)
[2024-06-09] VITALS (8 sets, daily range): BP systolic 126–153; BP diastolic 62–70; PULSE 59–92; RESP 16–18; TEMP 36.1–37.1; O2SAT 92–100
[2024-06-09 00:11] LABS: Partial Thromboplastin Time 53.5 SEC (26.0-36.8)
[2024-06-09] MEDS: Dextrose 10 % 1,000 ML 75 ML IVCONT ×2 (00:41→14:29)
[2024-06-09 02:09] LABS: Partial Thromboplastin Time 32.6 SEC (26.0-36.8)
[2024-06-09 03:58] LABS: Partial Thromboplastin Time 57.6 SEC (26.0-36.8)
[2024-06-09 04:46] LABS: Glucose, Whole Blood 37 mg/dL (60-115)
[2024-06-09] MEDS: Dextrose 50 % 25 GM/50 ML SYRINGE IVPUSH ×2 (04:48→17:55)
[2024-06-09] MEDS: vancomycin HCL 125 MG CAPSULE PO ×4 (04:54→20:56)
[2024-06-09] MEDS: Omeprazole 20 MG CAPSULE.DR PO (04:55)
[2024-06-09 05:57] LABS: Glucose, Whole Blood 35 mg/dL (60-115)
[2024-06-09 06:05] LABS: Glucose, Whole Blood 148 mg/dL (60-115)
--- NOTE | 2024-06-09 06:38 | PC.NURSE ---
0442: BG 37 - pt asymptomatic (obtained from fingertips) 1 amp of D50 given 0553: rechecked BG 35 (obtained from fingertips) 0600: rechecked BG 148 (obtained from earlobe) Pt fingertips have poor perfusion, and dark in color. MD aware, and oncoming nurse aware.
[2024-06-09 08:39] LABS: Hematocrit 28.8 % (42.0-52.0); Hemoglobin 9.1 g/dl (14.0-18.0); Mean Corpuscular HGB Conc 31.6 g/dl (31.0-36.0); Mean Corpuscular Hemoglobin 31.4 pg (27.0-33.0); Mean Corpuscular Volume 99.3 fL (80.0-98.0); Platelet Count 28 X10*3/uL (160-400); Red Cell Distribution Width 17.8 % (11.0-16.0); White Blood Count 14.8 X10*3/uL (4.8-10.8)
[2024-06-09 08:42] LABS: Partial Thromboplastin Time 58.5 SEC (26.0-36.8)
[2024-06-09] MEDS: Metoprolol Tartrate 25 MG TABLET PO (09:19)
[2024-06-09] MEDS: Cholestyramine (With Sugar) 4 GM POWD.PACK PO (09:19)
[2024-06-09] MEDS: Amiodarone HCL 200 MG TABLET PO (09:20)
[2024-06-09] MEDS: dilTIAZem HCL CD 240 MG CAP.ER.DEG PO (09:20)
--- NOTE | 2024-06-09 11:39 | MHC.CM.PN ---
Addendum entered by Kelsey Cox, RN 06/09/24 12:28: CM MET W/PT AND PT'S DTR [place] [phone] AT BEDSIDE, PT DECLINES STR HE WAS RECENTLY THERE AND WOULD LIKE RE[facility], [facility] ASKING ABOUT [facility] COVER[facility] A RECLINER AND SCOOTER/MOTORIZED WC HOWEVER AWARE CM UNSURE AND PT WILL LIKELY NEED FOLLOW UP W/[facility] PCP, PT ALSO INSTRUCTED TO REQUEST WHEN [facility] ASSESS[facility] FOR [facility] SERVICES. ' S[place]NEY ALSO REQUESTING A NURSE FOR MED MANAGEMENT AND AWARE [facility] CAN PROVIDE THAT WELL AND WILL ADD TO REFERRAL. Original Note: EMR REVIEWED, PT W/MULTIPLE MEDICAL ISSUES, PLAN FOR HEMATOLOGY, HD, [facility] FOLLOWING FOR [facility], PT WILL NEED [facility]. PT'S DTR FROM [place] AT BEDSIDE ASKING IF THERE IS ANYTHING SHE CAN DO OR SHOULD BE DOING FOR PT WHEN HE GOES HOME. CM CONTACTED [facility] AND CONFIRMED PT IS 100% SERVICE CONNECTED AND THAT FAMILY/PT CAN REQUEST HOME HEALTH SERVICES UPOND DC FROM STR, CM WILL CHECK IN W/PT AND DTR AT BEDSIDE. CM WILL CONT TO FOLLOW DC NEEDS.
--- NOTE | 2024-06-09 11:51 | P.PNIM_ITS ---
Subjective Subjective Date of Service: 06/09/24 Interval History: Seen in follow-up for pancolitis/C diff, UTI, DVT Reports feeling well overall. He is making small amounts of urine and continues with HD on TThS. Review of Systems Review of Systems: Yes all other systems are reviewed and are negative Physical Exam 2 Vital Signs: Vital Signs: Last Vital Signs Temp 97.6 F 06/09/24 11:06 Pulse 60 06/09/24 11:06 Resp 18 06/09/24 11:06 BP 146/66 H 06/09/24 11:06 Pulse Ox 92 06/09/24 11:06 O2 Del Method Room Air 06/09/24 11:06 O2 Flow Rate 2 06/07/24 07:09 BMI result Body Mass Index 19.8 Appearing in no acute distress lung sounds are clear to auscultation heart regular rate rhythm, clear S1, S2 positive bowel sounds, abdomen is soft, nontender neuro patient is alert x3, no focal deficits Objective Data Active Medications Acetaminophen (Acetaminophen 325 Mg Tablet) 650 mg PO Q6H PRN PRN Reason: Pain, Mild 1-3,fever,headache Last Admin: 06/06/24 05:40 Dose: 650 mg Documented By: JESUS Amiodarone HCl (Amiodarone Hcl 200 Mg Tablet) 200 mg PO DAILY [facility] Last Admin: 06/09/24 09:20 Dose: 200 mg Documented By: DEISY Calcium Carbonate (Calcium Carbonate 750 Mg Tab.Chew) 750 mg PO Q4H PRN PRN Reason: Heartburn Cholestyramine Resin (Cholestyramine (With Sugar) 4 Gm Powd.Pack) 4 gm PO DAILY [facility] Last Admin: 06/09/24 09:19 Dose: 4 gm Documented By: DEISY Dextrose (Dextrose 50 % 25 Gm/50 Ml Syringe) 25 gm IVPUSH Q15M PRN PRN Reason: per Hypoglycemia Standing Ord. Last Admin: 06/09/24 04:48 Dose: 25 gm Documented By: ANTOINC Diltiazem HCl (Diltiazem Hcl Cd 240 Mg Cap.Er.Deg) 240 mg PO DAILY [facility]; Protocol Last Admin: 06/09/24 09:20 Dose: 240 mg Documented By: DEISY Dextrose (D10) 1,000 mls @ 75 mls/hr IVCONT .[id number] [facility] Last Admin: 06/09/24 00:41 Dose: 75 mls/hr Documented By: ANTOINFlo Lactic Acid (Ammonium Lactate 12 % Lotion 226 Gm Bottle) 1 appl TOPICAL DAILY PRN; Protocol PRN Reason: Dry Skin Magnesium Hydroxide (Milk Of Magnesia 30 Ml Oral.Susp) 30 ml PO DAILY PRN PRN Reason: Constipation Melatonin (Melatonin 3 Mg Tablet) 6 mg PO BEDTIME PRN PRN Reason: Insomnia Metoprolol Tartrate (Metoprolol Tartrate 25 Mg Tablet) 25 mg PO DAILY [facility]; Protocol Last Admin: 06/09/24 09:19 Dose: 25 mg Documented By: DEISY Omeprazole (Omeprazole 20 Mg Capsule.) 20 mg PO DAILY@0630 [facility] Last Admin: 06/09/24 04:55 Dose: 20 mg Documented By: ANTOINFlo Ondansetron HCl (Ondansetron Hcl 4 Mg/2 Ml Vial) 4 mg IVPUSH Q8H PRN PRN Reason: Nausea and Vomiting Sodium Chloride (0.9 % Sodium Chloride Flush 3 Ml Syringe) 3 ml IVFLUSH QSHIFT [facility] Last Admin: 06/09/24 09:20 Dose: Not Given Documented By: DEISY Non-Admin Reason: IV Running Vancomycin HCl (Vancomycin Hcl 125 Mg Capsule) 125 mg PO Q6H [facility] Stop: 06/12/24 15:59 Last Admin: 06/09/24 09:19 Dose: 125 mg Documented By: DEISY Vancomycin HCl (Vancomycin Hcl 125 Mg Capsule) 125 mg PO TID [facility] Stop: 06/19/24 21:59 Vancomycin HCl (Vancomycin Hcl 125 Mg Capsule) 125 mg PO BID [facility] Stop: 06/26/24 21:59 Labs 06/09/24 08:10 06/08/24 07:35 Labs: Laboratory Results - last 24 hr 06/04/24 06/08/24 06/08/24 06:12 11:41 13:13 MCV MCH MCHC RDW Plt Count MPV Absolute Nucleated RBC Nucleated RBC % (auto) APTT 58.7 H Hep-Ind Thrombocytop Com TNP POC Glucose 71 Hold Yellow Top 06/08/24 06/08/24 06/08/24 15:00 16:41 18:39 MCV MCH MCHC RDW Plt Count MPV Absolute Nucleated RBC Nucleated RBC % (auto) APTT 25.7 L D Hep-Ind Thrombocytop Com POC Glucose 70 66 Hold Yellow Top 06/08/24 06/08/24 06/08/24 19:26 21:51 22:49 MCV MCH MCHC RDW Plt Count MPV Absolute Nucleated RBC Nucleated RBC % (auto) APTT 54.3 H D Hep-Ind Thrombocytop Com POC Glucose 42 L* 152 H Hold Yellow Top 06/08/24 06/09/24 06/09/24 23:54 01:50 03:44 MCV MCH MCHC RDW Plt Count MPV Absolute Nucleated RBC Nucleated RBC % (auto) APTT 53.5 H 32.6 D 57.6 H D Hep-Ind Thrombocytop Com POC Glucose Hold Yellow Top 06/09/24 06/09/24 06/09/24 04:42 05:53 06:00 MCV MCH MCHC RDW Plt Count MPV Absolute Nucleated RBC Nucleated RBC % (auto) APTT Hep-Ind Thrombocytop Com POC Glucose 37 L* 35 L* 148 H Hold Yellow Top 06/09/24 08:10 MCV 99.3 H MCH 31.4 MCHC 31.6 RDW 17.8 H Plt Count 28 L MPV Not Reportable Absolute Nucleated RBC 0.000 Nucleated RBC % (auto) 0.0 APTT 58.5 H Hep-Ind Thrombocytop Com POC Glucose Hold Yellow Top See Note Assessment and Plan (1) Recurrent Clostridioides difficile diarrhea: Status: Acute (2) Thrombocytopenia: Status: Acute (3) ESRD (end stage renal disease) on dialysis: Status: Acute (4) UTI (urinary tract infection): Status: Acute Plan 78-year-old male with history of BPH, recurrent C diff colitis, hyperlipidemia, hypertension, history of alcohol use disorder, mild cognitive impairments, sick sinus syndrome s/p pacemaker placement, ESRD on HD MWF, chronic thrombocytopenia admitted for pancolitis and catheter associated UTI Acute on chronic thrombocytopenia Platelets 80159 HIT panel negative s/p actroban Hold Eliquis until plt reaches 50K Follow platelets closely Heme following Acute pancolitis secondary to cdiff Cdiff toxin and gene positive, recurrent ID>Stop zosyn. PO vanco (06/02) QID x 10 days then TID x 1 week, then daily x1 week, then MWF indefinitely given recurrence Diet as tolerated Follow CBC, cultures Concern for UTI Complicated by Right-sided nephrostomy tube. CT Right percutaneous nephrostomy catheter in place air within the collecting system on the right probably iatrogenic infectious process or fistula can not be excluded nephro tube removed History VRE UTI>Initially treated with IV linezolid, urine cx negative Extensive LLE DVT No AC due to profound thombocytopenia Vascular surgery following s/p IVC filter 06/04 ESRD on HD MWF Nephrology following no heparin for flushing Recent dialysis catheter line infection Blood cultures 03/28 positive for Klebsiella. Treated with meropenem during last admission blood cx negative Paroxysmal atrial fibrillation-rate controlled Hold Eliquis as above continue diltiazem, metoprolol and amiodarone Hypertension Diltiazem and metoprolol Sick sinus syndrome Pacemaker in place DVT prophylaxis- SCPs Full code Quality Stroke Does the patient have a stroke diagnosis?: No VTE Prior VTE?: No VTE Risk Level:: Medical - moderate - high VTE Device Contraindication: N/A - Device Ordered VTE Drug Contraindication: Treatment Not Indicated
[2024-06-09 12:04] LABS: Glucose, Whole Blood 69 mg/dL (60-115)
[2024-06-09 12:51] LABS: Anion Gap 10 (12-20); Blood Urea Nitrogen 15 mg/dL (9-16); Calcium 6.5 mg/dL (8.4-10.2); Carbon Dioxide 25 mmol/L (22-29); Chloride 98 mmol/L (96-108); Creatinine Clr Calc Pharmacy 16.2; Estimated Glomerular Filt Rate 18; Glucose Random 91 mg/dL (60-115); Lactate Dehydrogenase 315 U/L (118-273); Potassium 3.4 mmol/L (3.3-5.1); Sodium 130 mmol/L (135-145)
[2024-06-09 12:58] LABS: Partial Thromboplastin Time 53.8 SEC (26.0-36.8)
--- NOTE | 2024-06-09 15:05 | MHC.CLN ---
F/U DIET=2 GRAM SODIUM. PATIENT WITH ESRD ON HEMODIALYSIS. PATIENT DISLIKES ENSURE CLEAR. NO PRESSURE INJURIES NOTED. CURRENT PO VARIABLE, 25-100%, WITH AVERAGE INTAKE APPROX 50% MONITOR PO INTAKE.
[2024-06-09 17:55] LABS: Glucose, Whole Blood 41 mg/dL (60-115)
[2024-06-09 18:48] LABS: Glucose, Whole Blood 162 mg/dL (60-115)
[2024-06-09 20:20] LABS: Glucose, Whole Blood 112 mg/dL (60-115)
[2024-06-09 23:35] LABS: Glucose, Whole Blood 57 mg/dL (60-115)
[2024-06-10] VITALS (12 sets, daily range): BP systolic 119–148; BP diastolic 58–92; PULSE 56–73; RESP 16–18; TEMP 36.1–37.3; O2SAT 93–100; BMI 19.8
[2024-06-10] MEDS: Dextrose 10 % 1,000 ML 75 ML IVCONT (03:56)
[2024-06-10] MEDS: 0.9 % Sodium Chloride Flush 3 ML SYRINGE IVFLUSH ×3 (03:56→21:32)
[2024-06-10] MEDS: vancomycin HCL 125 MG CAPSULE PO ×4 (04:00→21:32)
[2024-06-10 05:41] LABS: Glucose, Whole Blood 64 mg/dL (60-115)
[2024-06-10] MEDS: Omeprazole 20 MG CAPSULE.DR PO (06:36)
[2024-06-10] MEDS: Cholestyramine (With Sugar) 4 GM POWD.PACK PO (08:48)
[2024-06-10] MEDS: dilTIAZem HCL CD 240 MG CAP.ER.DEG PO (08:54)
[2024-06-10] MEDS: Amiodarone HCL 200 MG TABLET PO (08:55)
[2024-06-10] MEDS: Metoprolol Tartrate 25 MG TABLET PO (08:55)
[2024-06-10 09:02] LABS: Glucose, Whole Blood 67 mg/dL (60-115)
--- NOTE | 2024-06-10 10:23 | MHC.CLN ---
PT TO START PPN PER MD REVIEWED LABS DISCUSSED WITH PHARMACY RECOMMEND STARTING PPN AT 50ML/HR TO PROVIDE 612KCALS, 120G DEXTROSE, 51G PROTEIN CHECK TRIGS TOMORROW REPLETE LYTES NEEDED 2GM NA DIET IN PLACE WITH VARIABLE INTAKE SEE FULL CLINICAL NUTRITION ASSESSMENT
--- NOTE | 2024-06-10 10:47 | P.PNHO-ONC_ITS ---
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 Patient had prolonged hospitalization at [facility] from March 25 to 04/18/2024 following which he was in a prison for 3 weeks and just got home a few days back. He says he came back to the hospital because of recurrent diarrhea as well as pain at the site of right nephrostomy tube. He says he is unable to sleep at night because of this. He had right nephrostomy tube placed in March 2024 because of disruption of distal right ureter which may have occurred during reversal of colostomy performed at [facility] as per urology. During the prolonged hospitalization in March and April 2024 patient had developed severe thrombocytopenia with platelet counts below 20 K. he also developed GI bleeding requiring 3 units PRBC transfusion. EGD showed gastritis, duodenitis and candidal esophagitis that was treated with Diflucan. 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 His Eliquis was stopped. Thrombocytopenia was felt to be multifactorial, related to sepsis with Klebsiella line infection, use of antibiotics, as well as previous alcohol use, splenomegaly. At the time of discharge his platelet counts had come up to about 85 K. During that same admission he was noted to have obstruction of the right distal ureter and right PCN was placed on 04/08/2024. Patient states that he was never diagnosed with DVT in the past. He noticed swelling of his left leg last week after being home for a few days. He denies any pleuritic chest pain, shortness of breath or cough. The left leg swelling is about the same. He denies any significant pain in the leg. He had IVC filter placed and received platelet transfusion. He feels about the same but reports lack of appetite. No bruising or bleeding. No hematuria hematochezia. He denies any pain in the left foot or leg although it remains swollen. Review of Systems - Constitutional Reports as per HPI - Neurologic Reports no additional neurologic complaints, Reports as per HPI, Reports hearing normal, Denies dizziness, Denies numbness, Denies sensory deficit, Denies weakness [facility] Medical History: Medical History (Last Reviewed 06/08/24 @ 09:16 by Gabriela Thurman RN) Acute renal failure Aftercare following left shoulder joint replacement surgery Atrial fibrillation Borderline hyperlipidemia BPH (benign prostatic hyperplasia) C. difficile colitis Cancer of kidney End stage renal disease EtOH dependence High cholesterol HTN (hypertension) Hypertension Ileus Inhibited sex excitement Mild cognitive impairment OA (osteoarthritis) Obesity Pacemaker Postoperative hematoma involving digestive system following digestive system procedure Recto-vesical fistula Sick sinus syndrome Sinus bradycardia UTI (urinary tract infection) Family History: Family History (Last Reviewed 06/06/24 @ 17:21 by Marily German MD) Mother Heart problem Family history: reviewed and not pertinent Surgical History: Surgical History (Last Reviewed 06/08/24 @ 09:16 by Gabriela Thurman RN) Atrial fibrillation with rapid ventricular response Encounter for interrogation of cardiac pacemaker Malignant neoplasm of rectum Rectal carcinoma Rectal mass Social History: Social History (Last Reviewed 06/06/24 @ 17:21 by Marily German MD) Living Situation History: Household Members: Family Housing: House Do you presently have visiting nurse or other home services: No Alcohol History Details: 1. How often do you have a drink containing alcohol?: a. Never 3. How often do you have six or more drinks on one occasion?: a. Never AUDIT-C Alcohol total score: 0 Last drink: Unknown Currently Displaying Signs/Symptoms of Alcohol Withdrawal: No Tobacco History: Patient Tobacco Use Status: Former Tobacco user Tobacco use type: Cigarette Smoked in Last 30 Days: No e-Cigarette/Vaping Use: Never Used Patient Interested in Nicotine Replacement: No Patient Given Instructions on How to Stop Smoking: No Second Hand Smoke Exposure: No Substance Use History: Use of substances other than those prescribed or required for medical reasons : No Last Used Substance: Unknown Currently Displaying Signs/Symptoms of Drug Intoxication Withdrawal: No Any prior treatment program specific to substance use: No Domestic Abuse History: Have you been hit, kicked, punched, or otherwise hurt by someone within the past year? If so, by whom?: No Do you feel safe in your current relationship?: Yes Is there a partner from a previous relationship who is making you feel unsafe now?: No Are you made to feel afraid or neglected: No Advance Directives: Advance Directives: Yes Advance Directives on File: Yes Advance Directives Date on File: 11/29/22 Homicidal Assessment: Do you have a plan to hurt others: No Plan Nutrition Assessment: Recently lost weight without trying: No How much weight loss: 14-23 pounds Eating poorly because of decreased appetite: No Nutrition screen score: 4 Nutrition Risks: No Nutritional Risk Poor oral hygiene: No Occupation Assessmet: service: No Home Medications and Allergies Current Medications: Current Medications Acetaminophen (Acetaminophen 325 Mg Tablet) 650 mg PO Q6H PRN PRN Reason: Pain, Mild 1-3,fever,headache Last Admin: 06/06/24 05:40 Dose: 650 mg Amiodarone HCl (Amiodarone Hcl 200 Mg Tablet) 200 mg PO DAILY [facility] Last Admin: 06/10/24 08:55 Dose: 200 mg Calcium Carbonate (Calcium Carbonate 750 Mg Tab.Chew) 750 mg PO Q4H PRN PRN Reason: Heartburn Cholestyramine Resin (Cholestyramine (With Sugar) 4 Gm Powd.Pack) 4 gm PO DAILY [facility] Last Admin: 06/10/24 08:48 Dose: 4 gm Dextrose (Dextrose 50 % 25 Gm/50 Ml Syringe) 25 gm IVPUSH Q15M PRN PRN Reason: per Hypoglycemia Standing Ord. Last Admin: 06/09/24 17:55 Dose: 25 gm Diltiazem HCl (Diltiazem Hcl Cd 240 Mg Cap.Er.Deg) 240 mg PO DAILY [facility]; Protocol Last Admin: 06/10/24 08:54 Dose: 240 mg Dextrose (D10) 1,000 mls @ 75 mls/hr IVCONT .[id number] [facility] Last Admin: 06/10/24 03:56 Dose: 75 mls/hr Nutrition (Parenteral) (Parenteral Nutrition) 1,200 mls @ 50 mls/hr IV .Q24H [facility]; Protocol Stop: 06/11/24 20:59 Lactic Acid (Ammonium Lactate 12 % Lotion 226 Gm Bottle) 1 appl TOPICAL DAILY PRN; Protocol PRN Reason: Dry Skin Magnesium Hydroxide (Milk Of Magnesia 30 Ml Oral.Susp) 30 ml PO DAILY PRN PRN Reason: Constipation Melatonin (Melatonin 3 Mg Tablet) 6 mg PO BEDTIME PRN PRN Reason: Insomnia Metoprolol Tartrate (Metoprolol Tartrate 25 Mg Tablet) 25 mg PO DAILY [facility]; Protocol Last Admin: 06/10/24 08:55 Dose: 25 mg Omeprazole (Omeprazole 20 Mg Capsule.Dr) 20 mg PO DAILY@629 [facility] Last Admin: 06/10/24 06:36 Dose: 20 mg Ondansetron HCl (Ondansetron Hcl 4 Mg/2 Ml Vial) 4 mg IVPUSH Q8H PRN PRN Reason: Nausea and Vomiting Pharmacy Consult (Consult Rx Parenteral Nutrition Ordering) 1 each MISCELLANE DAILY PRN PRN Reason: Consult order Sodium Chloride (0.9 % Sodium Chloride Flush 3 Ml Syringe) 3 ml IVFLUSH QSHIFT [facility] Last Admin: 06/10/24 08:50 Dose: 3 ml Vancomycin HCl (Vancomycin Hcl 125 Mg Capsule) 125 mg PO Q6H [facility] Stop: 06/12/24 15:59 Last Admin: 06/10/24 08:50 Dose: 125 mg Vancomycin HCl (Vancomycin Hcl 125 Mg Capsule) 125 mg PO TID [facility] Stop: 06/19/24 21:59 Vancomycin HCl (Vancomycin Hcl 125 Mg Capsule) 125 mg PO BID [facility] Stop: 06/26/24 21:59 Home Medications ?Medication ?Instructions ?Recorded ?Confirmed ?Type ammonium lactate 12 % lotion 1 appl topical DAILY PRN Dry Skin 06/02/24 06/02/24 History apixaban 5 mg tablet (Eliquis) 5 mg PO BID 06/02/24 06/02/24 History cholestyramine (with sugar) 4 gram 1 ea PO DAILY 06/02/24 06/02/24 History powder for susp in a packet diltiazem HCl 240 mg 240 mg PO DAILY 06/02/24 06/02/24 History capsule,extended release 24 hr metoprolol tartrate 25 mg tablet 25 mg PO DAILY 06/02/24 06/02/24 History pantoprazole 20 mg tablet,delayed 20 mg PO DAILY@0630 06/02/24 06/02/24 History release vancomycin 125 mg capsule 125 mg PO MOWEFR@0900 06/02/24 06/02/24 History Allergies Allergy/AdvReac Type Severity Reaction Status Date / Time No Known Allergies [NKA] Allergy Mild NOT Verified 06/02/24 09:42 APPLICABLE Exam Vital signs: Vital Signs Temp 97.8 F 06/10/24 09:00 Pulse 73 06/10/24 09:00 Resp 18 06/10/24 09:00 BP 135/73 06/10/24 08:55 Pulse Ox 100 06/10/24 09:00 O2 Del Method Room Air 06/10/24 09:00 O2 Flow Rate 2 06/07/24 07:09 Intake & Output 06/09/24 06/10/24 06/10/24 18:59 06:59 18:59 Intake Total 1500.48 / 2500.48 1000 / 2500.48 Output Total 50 / 200 150 / 200 Balance 1450.48 / 2300.48 850 / 2300.48 Urine Output (Average ml/kg/hr) 0.07 0.21 0.21 Intake: Intake, Oral Amount 480 / 480 Intake, IV Amount 1020.48 / 2020.48 1000 / 2020.48 Argatroban 250 mg In 0.9 % 20.48 / 20.48 Sodium Chloride 250 ml @ 2 MCG/ KG/MIN 7.369 mls/hr IV .Q24H [facility] Rx#:[id number] Dextrose 10 % 1,000 ml @ 75 mls 1000 / 2000 1000 / 2000 /hr IVCONT .[id number] [facility] Rx#: [id number] Output: Output, Urine Amount 50 / 200 150 / 200 Other: Meal Refused No NPO No Breakfast % Eaten 50% Lunch % Eaten 50% Dinner % Eaten 50% Eating (Feeding) Ability Set Up only Number of Bowel Movements 2 3 Urine Urinal Urine Color Yellow Last Bowel Movement 06/09/24 06/09/24 Stool Bedpan Bedpan Stool Amount Large Small Stool Color Brown Brown Stool Consistency Soft Liquid Weight 60.8 kg Weight 60.8 kg BMI result Body Mass Index 19.8 - Constitutional Present: average body habitus, chronically ill appearing - Routine HEENT Exam Head: Present: normal inspection - Routine Neck Exam Present: full ROM - Routine Respiratory Exam Present: decreased breath sounds, CTAB - Routine Cardiovascular Exam Cardiovascular: Present: RRR, S1, S2 - Routine Abdominal Exam Present: diminished bowel sounds, soft - Routine Extremities Exam Present: pedal edema - Routine Skin Exam Present: intact Data - Labs CBC & Chem 7: 06/09/24 08:10 06/09/24 11:41 - Imaging Radiologist's impression: ITS Impressions Venous Duplex 06/04/24 14:25 IMPRESSION: No evidence of deep venous thrombosis involving the right upper extremity. Electronically signed by: Lior Lewis MD 06/04/2024 03:08 PM EDT Assessment and Plan Patient Active problem list reviewed?: Yes (1) Left leg DVT Status: Acute Assessment and plan: 1. This is a 78-year-old male with multiple medical problems and complicated medical history who is now admitted for recurrent C diff colitis and left lower extremity DVT. Left lower extremity ultrasound showed extensive DVT extending from calf veins into popliteal, femoral and proximal deep femoral and common femoral veins. CT abdomen/pelvis without contrast shows right percutaneous nephrostomy catheter in place, air in the collecting system, probably iatrogenic, infectious or fistula. Indeterminate exophytic lesion of left kidney. Ward colitis with indeterminate soft tissue density with air just below aortic bifurcation, fistulous process can not be excluded. He noticed swelling in his left leg since 05/31/2024. He says he was not taking Eliquis since he left the hospital on April 18. Unfortunately he has developed recurrent thrombocytopenia with platelet counts of 25 K. he has leukocytosis with WBC count of 26.6 with toxic vacuolation, hemoglobin returned to his baseline of 11.9 gram/dL. He is afebrile, blood and urine cultures are pending. He has been started on Zosyn, linezolid, vancomycin and Flagyl. Cause of DVT is probably prolonged hospitalization for over a month and not being on anticoagulation/prophylaxis. Heparin induced thrombocytopenia is also in the differential as he has had ongoing exposure to heparin during dialysis and he has had greater than 50% drop in platelet counts since April. However it is difficult to ascertain the timeline and exposure to heparin. This could also explain thrombosis. HIT assay is pending. Cause of drop in platelet count could also be DIC because of sepsis. He has mild elevation of PT/PTT and decline in fibrinogen level. He received platelet transfusion and underwent IVC filter placement on 06/04/2024. For his left lower extremity DVT, anticoagulation is needed. If platelet counts come at least above 30,000, he could be started on low-dose anticoagulation with argatroban until HIT assay comes back. Patient continues to deny any pain in his left leg or foot. Fibrinogen level is mildly decreased. Hit assay was negative. Over the weekend he was on argatroban, this has now been discontinued. His blood counts are stable. No signs of bleeding. Consider resuming Eliquis at a dose of 2.5 mg b.i.d.. Transfuse platelets to keep them above 30 K. - Time Spent With Patient Time Spent with Patient (in minutes): 15
--- NOTE | 2024-06-10 11:12 | P.PNIM_ITS ---
Subjective Subjective Date of Service: 06/10/24 Interval History: Seen in follow-up for pancolitis/C diff, UTI, DVT Reports feeling well overall. He is making small amounts of urine and continues with HD on TThS. Review of Systems Review of Systems: Yes all other systems are reviewed and are negative Physical Exam 2 Vital Signs: Vital Signs: Last Vital Signs Temp 97.8 F 06/10/24 09:00 Pulse 73 06/10/24 11:02 Resp 18 06/10/24 09:00 BP 135/73 06/10/24 08:55 Pulse Ox 100 06/10/24 11:02 O2 Del Method Room Air 06/10/24 09:00 O2 Flow Rate 2 06/07/24 07:09 BMI result Body Mass Index 19.8 Appearing in no acute distress lung sounds are clear to auscultation heart regular rate rhythm, clear S1, S2 positive bowel sounds, abdomen is soft, nontender neuro patient is alert x3, no focal deficits Objective Data Active Medications Acetaminophen (Acetaminophen 325 Mg Tablet) 650 mg PO Q6H PRN PRN Reason: Pain, Mild 1-3,fever,headache Last Admin: 06/06/24 05:40 Dose: 650 mg Documented By: JESUS Amiodarone HCl (Amiodarone Hcl 200 Mg Tablet) 200 mg PO DAILY [facility] Last Admin: 06/10/24 08:55 Dose: 200 mg Documented By: DEISY Calcium Carbonate (Calcium Carbonate 750 Mg Tab.Chew) 750 mg PO Q4H PRN PRN Reason: Heartburn Cholestyramine Resin (Cholestyramine (With Sugar) 4 Gm Powd.Pack) 4 gm PO DAILY [facility] Last Admin: 06/10/24 08:48 Dose: 4 gm Documented By: DEISY Dextrose (Dextrose 50 % 25 Gm/50 Ml Syringe) 25 gm IVPUSH Q15M PRN PRN Reason: per Hypoglycemia Standing Ord. Last Admin: 06/09/24 17:55 Dose: 25 gm Documented By: TAMARA Comments: POC 41. Pt asymptomatic. notified Diltiazem HCl (Diltiazem Hcl Cd 240 Mg Cap.Er.Deg) 240 mg PO DAILY [facility]; Protocol Last Admin: 06/10/24 08:54 Dose: 240 mg Documented By: DEISY Dextrose (D10) 1,000 mls @ 75 mls/hr IVCONT .[id number] [facility] Last Admin: 06/10/24 03:56 Dose: 75 mls/hr Documented By: GWENDOLYN Nutrition (Parenteral) (Parenteral Nutrition) 1,200 mls @ 50 mls/hr IV .Q24H [facility]; Protocol Stop: 06/11/24 20:59 Lactic Acid (Ammonium Lactate 12 % Lotion 226 Gm Bottle) 1 appl TOPICAL DAILY PRN; Protocol PRN Reason: Dry Skin Magnesium Hydroxide (Milk Of Magnesia 30 Ml Oral.Susp) 30 ml PO DAILY PRN PRN Reason: Constipation Melatonin (Melatonin 3 Mg Tablet) 6 mg PO BEDTIME PRN PRN Reason: Insomnia Metoprolol Tartrate (Metoprolol Tartrate 25 Mg Tablet) 25 mg PO DAILY [facility]; Protocol Last Admin: 06/10/24 08:55 Dose: 25 mg Documented By: DEISY Omeprazole (Omeprazole 20 Mg Capsule.Dr) 20 mg PO DAILY@0630 [facility] Last Admin: 06/10/24 06:36 Dose: 20 mg Documented By: GWENDOLYN Ondansetron HCl (Ondansetron Hcl 4 Mg/2 Ml Vial) 4 mg IVPUSH Q8H PRN PRN Reason: Nausea and Vomiting Pharmacy Consult (Consult Rx Parenteral Nutrition Ordering) 1 each MISCELLANE DAILY PRN PRN Reason: Consult order Sodium Chloride (0.9 % Sodium Chloride Flush 3 Ml Syringe) 3 ml IVFLUSH QSHIFT [facility] Last Admin: 06/10/24 08:50 Dose: 3 ml Documented By: DEISY Vancomycin HCl (Vancomycin Hcl 125 Mg Capsule) 125 mg PO Q6H [facility] Stop: 06/12/24 15:59 Last Admin: 06/10/24 08:50 Dose: 125 mg Documented By: DEISY Vancomycin HCl (Vancomycin Hcl 125 Mg Capsule) 125 mg PO TID [facility] Stop: 06/19/24 21:59 Vancomycin HCl (Vancomycin Hcl 125 Mg Capsule) 125 mg PO BID [facility] Stop: 06/26/24 21:59 Labs 06/09/24 08:10 06/09/24 11:41 Labs: Laboratory Results - last 24 hr 06/09/24 06/09/24 06/09/24 11:29 11:41 17:51 APTT 53.8 H Anion Gap 10 L Estim Creat Clear Calc 16.2 Estimated GFR 18 POC Glucose 69 41 L* Random Glucose 91 Calcium 6.5 L Lactate Dehydrogenase 315 H 06/09/24 06/09/24 06/09/24 18:35 20:16 23:28 APTT Anion Gap Estim Creat Clear Calc Estimated GFR POC Glucose 162 H 112 57 L* Random Glucose Calcium Lactate Dehydrogenase 06/10/24 06/10/24 05:35 08:54 APTT Anion Gap Estim Creat Clear Calc Estimated GFR POC Glucose 64 67 Random Glucose Calcium Lactate Dehydrogenase Assessment and Plan (1) Recurrent Clostridioides difficile diarrhea: Status: Acute (2) Thrombocytopenia: Status: Acute (3) ESRD (end stage renal disease) on dialysis: Status: Acute (4) UTI (urinary tract infection): Status: Acute Plan 78-year-old male with history of BPH, recurrent C diff colitis, hyperlipidemia, hypertension, history of alcohol use disorder, mild cognitive impairments, sick sinus syndrome s/p pacemaker placement, ESRD on HD MWF, chronic thrombocytopenia admitted for pancolitis and catheter associated UTI Moderately malnourished BMI 19.8 very poor appetite leading to hypoglycemia Declined NGT, start PPN Nutrition following Ensure added to diet will add remeron Hypoglycemia likely secondary to poor appetite and malnutrition On D10 D50 for BS less than 60 Acute on chronic thrombocytopenia Platelets 13191 HIT panel negative s/p actroban Hold Eliquis until plt reaches 50K Follow platelets closely Heme following Acute pancolitis secondary to cdiff Cdiff toxin and gene positive, recurrent ID>Stop zosyn. PO vanco (06/02) QID x 10 days then TID x 1 week, then daily x1 week, then MWF indefinitely given recurrence Diet as tolerated Follow CBC, cultures Concern for UTI Complicated by Right-sided nephrostomy tube. CT Right percutaneous nephrostomy catheter in place air within the collecting system on the right probably iatrogenic infectious process or fistula can not be excluded nephro tube removed History VRE UTI>Initially treated with IV linezolid, urine cx negative Extensive LLE DVT No AC due to profound thombocytopenia Vascular surgery following s/p IVC filter 06/04 ESRD on HD MWF Nephrology following no heparin for flushing Recent dialysis catheter line infection Blood cultures 03/28 positive for Klebsiella. Treated with meropenem during last admission blood cx negative Paroxysmal atrial fibrillation-rate controlled Hold Eliquis as above continue diltiazem, metoprolol and amiodarone Hypertension Diltiazem and metoprolol Sick sinus syndrome Pacemaker in place DVT prophylaxis- SCPs Full code Quality Stroke Does the patient have a stroke diagnosis?: No VTE Prior VTE?: No VTE Risk Level:: Medical - moderate - high VTE Device Contraindication: N/A - Device Ordered VTE Drug Contraindication: Treatment Not Indicated
[2024-06-10 12:25] LABS: Glucose, Whole Blood 63 mg/dL (60-115)
[2024-06-10 13:57] LABS: Hematocrit 23.7 % (42.0-52.0); Hemoglobin 7.8 g/dl (14.0-18.0); Mean Corpuscular HGB Conc 32.9 g/dl (31.0-36.0); Mean Corpuscular Hemoglobin 31.7 pg (27.0-33.0); Mean Corpuscular Volume 96.3 fL (80.0-98.0); Red Blood Count 2.46 X10*6/uL (4.60-5.80); Red Cell Distribution Width 17.2 % (11.0-16.0); White Blood Count 15.8 X10*3/uL (4.8-10.8)
[2024-06-10 14:05] LABS: Platelet Count 19 X10*3/uL (160-400)
[2024-06-10 14:30] LABS: Cortisol Random 14.1 ug/dL
[2024-06-10 14:34] LABS: Albumin Level 1.3 g/dL (3.5-5.0); Anion Gap 6 (12-20); Blood Urea Nitrogen 19 mg/dL (9-16); Carbon Dioxide 24 mmol/L (22-29); Chloride 95 mmol/L (96-108); Creatinine Clr Calc Pharmacy 16.7; Estimated Glomerular Filt Rate 19; Glucose Random 116 mg/dL (60-115); Magnesium 1.3 mg/dL (1.6-2.6); Phosphorus 1.7 mg/dL (2.7-4.5); Potassium 3.4 mmol/L (3.3-5.1); Sodium 122 mmol/L (135-145)
[2024-06-10] MEDS: Potassium Phosphate/NS 15 MMOL/250 ML PLAST..BAG 62.5 MMOL IV (15:52)
[2024-06-10] MEDS: Magnesium Sulfate/H2O 2 GM/50 ML PIGGYBACK IV (16:05)
[2024-06-10] MEDS: Magnesium Oxide 400 MG TABLET PO (17:38)
[2024-06-10 18:45] LABS: Glucose, Whole Blood 69 mg/dL (60-115)
[2024-06-10] MEDS: Calcium Oyster Shell Elemental 500 MG TABLET PO (19:53)
[2024-06-10 20:42] LABS: Glucose, Whole Blood 73 mg/dL (60-115)
[2024-06-10 21:50] LABS: Anion Gap 15 (12-20); Blood Urea Nitrogen 10 mg/dL (9-16); Carbon Dioxide 22 mmol/L (22-29); Chloride 101 mmol/L (96-108); Creatinine Clr Calc Pharmacy 29.2; Estimated Glomerular Filt Rate 36; Glucose Random 94 mg/dL (60-115); Potassium 3.8 mmol/L (3.3-5.1); Sodium 134 mmol/L (135-145)
[2024-06-10] MEDS: Albumin Human 25 % 100 ML IV ×2 (22:11→23:13)
[2024-06-11] VITALS (17 sets, daily range): BP systolic 126–162; BP diastolic 56–79; PULSE 60–68; RESP 13–37; TEMP 36–36.7; O2SAT 94–100
[2024-06-11] MEDS: vancomycin HCL 125 MG CAPSULE PO ×4 (03:40→21:43)
--- NOTE | 2024-06-11 03:49 | PC.NURSE ---
Addendum entered by Yuki Brennan RN 06/11/24 05:19: stool output Addendum entered by Yuki Brennan RN 06/11/24 04:22: noted 0420 that Hospitalist wrote an event note with orders for IVP Protonix, GI consult, and make diet NPO at this time. Original Note: Patient was a transfer from [facility] at approx 1915 for [facility], room 345. alert, oriented, and cooperative. Patient is [place] Islander and Armenian speaking. Noted C-Diff precautions in effect and incontinent of frequent brown/black stools, skin care and barrier cream utilized with each incontinent episode. Incontinent episode at close to 0305 was noted with moderate amount mucous and blood. Photo obtained and sent to Hospitalist on duty, no new orders at this time and he acknowledged the message. Patient arrived in the middle of RBC blood transfusion and thus far that finished, received 2 bags of Albumin, One bag platelets with one more to be administered, then one more unit of RBC's. Patient doing well with transfusions. see vitals. Assistance sought from nursing blood donor recruiter supervisor for order of products to be given. Will continue to monitor
--- NOTE | 2024-06-11 04:07 | PM.EVENT ---
Event Note Date of Service: 06/11/24 Event Note: Nurse reported dark stools, last one being bloody. Initiating IV protonix and consulting GI. As per nurse, patient has one bag of platelet and prbc left to transfuse. Also noted sodium 130>122>134. ?Lab error. Closely monitor Time Spent With Patient Time: Total time managing care of this patient today ____ minutes.
[2024-06-11] MEDS: Pantoprazole Sodium 40 MG/10 ML VIAL IVPUSH ×2 (05:32→16:43)
[2024-06-11 05:34] LABS: Glucose, Whole Blood 49 mg/dL (60-115)
[2024-06-11] MEDS: Dextrose 50 % 25 GM/50 ML SYRINGE IVPUSH ×4 (05:42→20:11)
--- NOTE | 2024-06-11 06:30 | P.PNNP_ITS ---
Subjective Subjective Date of Service: 06/09/24 Principal diagnosis: ESRD Interval history: Seen and examined,avi shahiain Seen in follow-up for pancolitis/C diff, UTI, DVT Reports feeling well overall. He is making small amounts of urine and continues with HD on TTh[facility]. Physical Exam 2 Vital Signs: Vital Signs: Last Vital Signs Temp 97.0 F 06/11/24 05:12 Pulse 62 06/11/24 05:12 Resp 18 06/11/24 05:12 BP 142/66 H 06/11/24 05:12 Pulse Ox 96 06/11/24 03:55 O2 Del Method Room Air 06/11/24 03:55 O2 Flow Rate 2 06/07/24 07:09 BMI result Body Mass Index 19.8 Const: General: comfortable and no acute distress O rientation/consciousness: patient oriented x3 HEENT: Ears: hearing grossly normal bilaterally Resp: Effort & Inspection: normal respiratory effort and able to speak in complete sentences Auscultation: clear to auscultation bilaterally Cardio: Rate: regular rate Rhythm: regular rhythm Heart sounds: S1 normal heart sound present and S2 normal heart sound present Bruits: no abdominal aortic bruits, no carotid bruits, no femoral bruits and no renal bruits GI: Palpation (GI): No Abdominal aortic bruit present : Other: Right groin: C/D/I, no drainage or bleeding noted. Neuro: General: patient oriented x3 Cranial nerves: Yes CN's II-XII intact bilaterally and Yes Normal hearing present Sensory Exam: No Sensory deficit (Neuro) Extrem: Other: Left lower extremity: swollen from groin to the ankle, no erythema noted. Not painful to palpation. Objective Data Labs 06/10/24 13:29 06/10/24 20:43 Labs: Laboratory Results - last 24 hr 06/10/24 06/10/24 06/10/24 08:54 11:45 13:29 WBC 15.8 H RBC 2.46 L Hgb 7.8 L Hct 23.7 L MCV 96.3 MCH 31.7 MCHC 32.9 RDW 17.2 H Plt Count 19 L* MPV Not Reportable Absolute Nucleated RBC 0.000 Nucleated RBC % (auto) 0.0 Sodium 122 L Potassium 3.4 Chloride 95 L Carbon Dioxide 24 Anion Gap 6 L BUN 19 H Creatinine 3.18 H Estim Creat Clear Calc 16.7 Estimated GFR 19 POC Glucose 67 63 Random Glucose 116 H Calcium 6.0 L* D Phosphorus 1.7 L Magnesium 1.3 L* Albumin 1.3 L Random Cortisol 14.1 Blood Type Antibody Screen Crossmatch 06/10/24 06/10/24 06/10/24 14:57 18:41 20:34 WBC RBC Hgb Hct MCV MCH MCHC RDW Plt Count MPV Absolute Nucleated RBC Nucleated RBC % (auto) Sodium Potassium Chloride Carbon Dioxide Anion Gap BUN Creatinine Estim Creat Clear Calc Estimated GFR POC Glucose 69 73 Random Glucose Calcium Phosphorus Magnesium Albumin Random Cortisol Blood Type A Positive Antibody Screen NEGATIVE Crossmatch See Detail 06/10/24 06/11/24 20:43 05:30 WBC RBC Hgb Hct MCV MCH MCHC RDW Plt Count MPV Absolute Nucleated RBC Nucleated RBC % (auto) Sodium 134 L Potassium 3.8 Chloride 101 Carbon Dioxide 22 Anion Gap 15 BUN 10 Creatinine 1.82 H Estim Creat Clear Calc 29.2 Estimated GFR 36 POC Glucose 49 L* Random Glucose 94 Calcium 7.0 L D Phosphorus Magnesium Albumin Random Cortisol Blood Type Antibody Screen Crossmatch Microbiology Microbiology Results: Microbiology 06/02/24 17:46 Blood - Central Line Blood Culture - Final No growth after 5 days. 06/02/24 10:35 Blood - Venous Blood Culture - Final No growth after 5 days. 06/02/24 10:34 Blood - Venous Blood Culture - Final No growth after 5 days. 06/02/24 Unknown Urine Other - Nephrostomy Urine Culture - Final Procedures Date of Service Date of Service: 06/11/24 Assessment & Plan Assessment and plan (1) ESRD (end stage renal disease) on dialysis: Status: Acute Plan ESRD on HD m-w- at [employer] [facility] via PC Admitted with L Lower ext DVT/ Ward colitis sepsis Klebsiella bacteremia in the past s/p new dialysis tunnelled catheter- last admission CT abdomen unchanged c/w right-sided hydronephrosis, complex hemorrhagic exophytic lesion nephrogenic anemia Thrombocytopenia ? HIT REC Usual HD MWF bit now on TTS scheduel d/t scheduling issues TTS schedule in hospital - Can be changed to MWF when he gets discharged NO HEPARIN to prime machine OR TO LOCK PERMCATH - Will use NS - D/w HD nurse in detail Hematology f/u - s/p IVC filterplacemnet Antibiotics as per medical team Cont ID and Urol and nutrtion consultants Avoid PIC lkine if possible Time Spent With Patient Time: Total time managing care of this patient today ____ minutes. Progress Note: Quality Stroke Does the patient have a stroke diagnosis?: No
[2024-06-11 06:38] LABS: Hematocrit 25.1 % (42.0-52.0); Hemoglobin 8.1 g/dl (14.0-18.0); Mean Corpuscular HGB Conc 32.3 g/dl (31.0-36.0); Mean Corpuscular Hemoglobin 30.8 pg (27.0-33.0); Mean Corpuscular Volume 95.4 fL (80.0-98.0); Mean Platelet Volume 10.4 fL (9.4-12.4); Red Blood Count 2.63 X10*6/uL (4.60-5.80); Red Cell Distribution Width 17.3 % (11.0-16.0); White Blood Count 11.2 X10*3/uL (4.8-10.8)
[2024-06-11 06:47] LABS: Platelet Count 34 X10*3/uL (160-400)
[2024-06-11 06:52] LABS: Albumin Level 2.2 g/dL (3.5-5.0); Anion Gap 14 (12-20); Blood Urea Nitrogen 12 mg/dL (9-16); Calcium 7.1 mg/dL (8.4-10.2); Carbon Dioxide 25 mmol/L (22-29); Chloride 99 mmol/L (96-108); Creatinine Clr Calc Pharmacy 23.5; Estimated Glomerular Filt Rate 28; Glucose Random 147 mg/dL (60-115); Magnesium 1.9 mg/dL (1.6-2.6); Phosphorus 2.2 mg/dL (2.7-4.5); Potassium 3.6 mmol/L (3.3-5.1); Sodium 134 mmol/L (135-145); Triglycerides 42 mg/dL (<150)
--- NOTE | 2024-06-11 07:06 | PC.NURSE ---
0530 POC value was 49, Patient with no s/sx hypoglycemia, offered no complaints, willing to take juice, however, patient was made NPO secondary to rectal bleeding. 25 gm dextrose ivp given as per md orders with recheck at 106. Patient receiving 2nd bag of platelets and day RN given full report to complete platelets and the need for one more unit of RBC's. After Hospitalist alerted to bloody stool he ordered ivp Protonix, Labwork, and GI consult. C-Diff precautions maintained. vss, skin care, barrier cream, pillows, and air loss mattress in use. Pt received unit of RBC's, 2 bags of Albumin, and platelets as ordered. Incontinent of frequent black/brown stool, then noted with mucous and blood, see photo in nursing note, followed by 2 small bloody stools. monitored closely throughout this 12 shift.
[2024-06-11 07:43] LABS: Glucose, Whole Blood 74 mg/dL (60-115)
[2024-06-11 07:43] LABS: Glucose, Whole Blood 106 mg/dL (60-115)
[2024-06-11] MEDS: Cholestyramine (With Sugar) 4 GM POWD.PACK PO (08:00)
[2024-06-11] MEDS: Magnesium Oxide 400 MG TABLET PO ×2 (08:00→16:43)
[2024-06-11] MEDS: dilTIAZem HCL CD 240 MG CAP.ER.DEG PO (08:00)
[2024-06-11] MEDS: Amiodarone HCL 200 MG TABLET PO (08:01)
[2024-06-11] MEDS: Metoprolol Tartrate 25 MG TABLET PO (08:01)
[2024-06-11] MEDS: Calcium Oyster Shell Elemental 500 MG TABLET PO (08:01)
--- NOTE | 2024-06-11 09:19 | MHC.CLN ---
F/U DIET=NPO. ESRD ON HD. PPN NOT STARTED 06/10 SINCE AWAITING DIALYSIS LABS. PPN TO START TODAY. REVIEWED LABS. COMMUNICATED WITH PHARMACY. RECOMMEND STARTING PPN AT 50ML/HR TO PROVIDE 612KCALS, 120G DEXTROSE, 51G PROTEIN. REPLETE LYTES NEEDED. CHECK TRIGLYCERIDES. FOLLOW FOR PPN TOLERANCE, LYTES AND DIET ADVANCEMENT.
[2024-06-11 09:29] LABS: MANUAL DIFF FLAG NO
[2024-06-11 09:35] LABS: Basophils Percent Auto 0.2 % (0-2); Eosinophils Percent Auto 0.3 % (0-4); Hematocrit 26.6 % (42.0-52.0); Hemoglobin 8.7 g/dl (14.0-18.0); Imm Gran Pct Auto 2.5 % (0.0-0.4); Lymphocytes Absolute Auto 0.9 X10*3/uL (1.2-4.9); Lymphocytes Percent Auto 7.2 % (20-40); Mean Corpuscular HGB Conc 32.7 g/dl (31.0-36.0); Mean Corpuscular Hemoglobin 31.2 pg (27.0-33.0); Mean Corpuscular Volume 95.3 fL (80.0-98.0); Mean Platelet Volume 10.2 fL (9.4-12.4); Monocytes Absolute Auto 1.1 X10*3/uL (0.1-1.2); Monocytes Percent Auto 9.2 % (2-11); Neutrophils Absolute Auto 9.8 x10*3/uL (2.0-8.3); Neutrophils Percent Auto 80.6 % (45-73); Platelet Count 42 X10*3/uL (160-400); Red Blood Count 2.79 X10*6/uL (4.60-5.80); Red Cell Distribution Width 17.4 % (11.0-16.0); White Blood Count 12.2 X10*3/uL (4.8-10.8)
[2024-06-11 09:48] LABS: Fibrinogen 251 MG/DL (259-690); INTERNATIONAL NORM RATIO 1.1 (0.9-1.1)
[2024-06-11 09:51] LABS: Partial Thromboplastin Time 38.8 SEC (26.0-36.8)
--- NOTE | 2024-06-11 10:10 | P.PNIM_ITS ---
Subjective Subjective Date of Service: 06/11/24 Interval History: Seen in follow-up for pancolitis/C diff, UTI, DVT, anemia, thrombocytopenia PLT count up and down, no ac at this time poor appetite, started on PPN Review of Systems Review of Systems: Yes all other systems are reviewed and are negative Physical Exam 2 Vital Signs: Vital Signs: Last Vital Signs Temp 97.1 F 06/11/24 09:05 Pulse 60 06/11/24 09:05 Resp 18 06/11/24 09:05 BP 131/65 06/11/24 09:05 Pulse Ox 96 06/11/24 08:00 O2 Del Method Room Air 06/11/24 08:00 O2 Flow Rate 2 06/07/24 07:09 BMI result Body Mass Index 19.8 Appearing in no acute distress lung sounds are clear to auscultation heart regular rate rhythm, clear S1, S2 positive bowel sounds, abdomen is soft, nontender neuro patient is alert x3, no focal deficits Objective Data Active Medications Acetaminophen (Acetaminophen 325 Mg Tablet) 650 mg PO Q6H PRN PRN Reason: Pain, Mild 1-3,fever,headache Last Admin: 06/06/24 05:40 Dose: 650 mg Documented By: JESUS Amiodarone HCl (Amiodarone Hcl 200 Mg Tablet) 200 mg PO DAILY [facility] Last Admin: 06/11/24 08:01 Dose: 200 mg Documented By: SUZETTE Calcium Carbonate (Calcium Carbonate 750 Mg Tab.Chew) 750 mg PO Q4H PRN PRN Reason: Heartburn Calcium Carbonate (Calcium Oyster Shell Elemental 500 Mg Tablet) 500 mg PO DAILY [facility] Last Admin: 06/11/24 08:01 Dose: 500 mg Documented By: SUZETTE Cholestyramine Resin (Cholestyramine (With Sugar) 4 Gm Powd.Pack) 4 gm PO DAILY [facility] Last Admin: 06/11/24 08:00 Dose: 4 gm Documented By: SUZETTE Dextrose (Dextrose 50 % 25 Gm/50 Ml Syringe) 25 gm IVPUSH Q15M PRN PRN Reason: per Hypoglycemia Standing Ord. Last Admin: 06/11/24 05:42 Dose: 25 gm Documented By: FALLON Diltiazem HCl (Diltiazem Hcl Cd 240 Mg Cap.Er.Deg) 240 mg PO DAILY [facility]; Protocol Last Admin: 06/11/24 08:00 Dose: 240 mg Documented By: SUZETTE Nutrition (Parenteral) (Parenteral Nutrition) 1,200 mls @ 50 mls/hr IV .Q24H [facility]; Protocol Stop: 06/12/24 20:59 Lactic Acid (Ammonium Lactate 12 % Lotion 226 Gm Bottle) 1 appl TOPICAL DAILY PRN; Protocol PRN Reason: Dry Skin Magnesium Hydroxide (Milk Of Magnesia 30 Ml Oral.Susp) 30 ml PO DAILY PRN PRN Reason: Constipation Magnesium Oxide (Magnesium Oxide 400 Mg Tablet) 400 mg PO BIDPC [facility] Last Admin: 06/11/24 08:00 Dose: 400 mg Documented By: SUZETTE Melatonin (Melatonin 3 Mg Tablet) 6 mg PO BEDTIME PRN PRN Reason: Insomnia Metoprolol Tartrate (Metoprolol Tartrate 25 Mg Tablet) 25 mg PO DAILY [facility]; Protocol Last Admin: 06/11/24 08:01 Dose: 25 mg Documented By: SUZETTE Ondansetron HCl (Ondansetron Hcl 4 Mg/2 Ml Vial) 4 mg IVPUSH Q8H PRN PRN Reason: Nausea and Vomiting Pantoprazole Sodium (Pantoprazole Sodium 40 Mg/10 Ml Vial) 40 mg IVPUSH BID@0630,1630 [facility] Last Admin: 06/11/24 05:32 Dose: 40 mg Documented By: FALLON Pharmacy Consult (Consult Rx Parenteral Nutrition Ordering) 1 each MISCELLANE DAILY PRN PRN Reason: Consult order Sodium Chloride (0.9 % Sodium Chloride Flush 3 Ml Syringe) 3 ml IVFLUSH QSHIFT [facility] Last Admin: 06/11/24 07:14 Dose: Not Given Documented By: SUZETTE Non-Admin Reason: IV Running Vancomycin HCl (Vancomycin Hcl 125 Mg Capsule) 125 mg PO Q6H [facility] Stop: 06/12/24 15:59 Last Admin: 06/11/24 09:53 Dose: 125 mg Documented By: SUZETTE Vancomycin HCl (Vancomycin Hcl 125 Mg Capsule) 125 mg PO TID [facility] Stop: 06/19/24 21:59 Vancomycin HCl (Vancomycin Hcl 125 Mg Capsule) 125 mg PO BID [facility] Stop: 06/26/24 21:59 Labs 06/11/24 09:22 06/11/24 06:25 Labs: Laboratory Results - last 24 hr 06/10/24 06/10/24 06/10/24 11:45 13:29 14:57 MCV 96.3 MCH 31.7 MCHC 32.9 RDW 17.2 H Plt Count 19 L* MPV Not Reportable Immature Gran % (Auto) Neut % (Auto) Lymph % (Auto) Dixie % (Auto) Eos % (Auto) Baso % (Auto) Lymph # (Auto) Dixie # (Auto) Eos # (Auto) Baso # (Auto) Abs Immat Gran (auto) Absolute Neuts (auto) Absolute Nucleated RBC 0.000 Nucleated RBC % (auto) 0.0 PT INR APTT Fibrinogen Anion Gap 6 L Estim Creat Clear Calc 16.7 Estimated GFR 19 POC Glucose 63 Random Glucose 116 H Calcium 6.0 L* D Phosphorus 1.7 L Magnesium 1.3 L* Albumin 1.3 L Triglycerides Random Cortisol 14.1 Blood Type A Positive Antibody Screen NEGATIVE Crossmatch See Detail 06/10/24 06/10/24 06/10/24 18:41 20:34 20:43 MCV MCH MCHC RDW Plt Count MPV Immature Gran % (Auto) Neut % (Auto) Lymph % (Auto) Dixie % (Auto) Eos % (Auto) Baso % (Auto) Lymph # (Auto) Dixie # (Auto) Eos # (Auto) Baso # (Auto) Abs Immat Gran (auto) Absolute Neuts (auto) Absolute Nucleated RBC Nucleated RBC % (auto) PT INR APTT Fibrinogen Anion Gap 15 Estim Creat Clear Calc 29.2 Estimated GFR 36 POC Glucose 69 73 Random Glucose 94 Calcium 7.0 L D Phosphorus Magnesium Albumin Triglycerides Random Cortisol Blood Type Antibody Screen Crossmatch 06/11/24 06/11/24 06/11/24 05:30 06:11 06:25 MCV 95.4 MCH 30.8 MCHC 32.3 RDW 17.3 H Plt Count 34 L D MPV 10.4 Immature Gran % (Auto) Neut % (Auto) Lymph % (Auto) Dixie % (Auto) Eos % (Auto) Baso % (Auto) Lymph # (Auto) Dixie # (Auto) Eos # (Auto) Baso # (Auto) Abs Immat Gran (auto) Absolute Neuts (auto) Absolute Nucleated RBC 0.000 Nucleated RBC % (auto) 0.0 PT INR APTT Fibrinogen Anion Gap 14 Estim Creat Clear Calc 23.5 Estimated GFR 28 POC Glucose 49 L* 106 Random Glucose 147 H Calcium 7.1 L Phosphorus 2.2 L Magnesium 1.9 Albumin 2.2 L Triglycerides 42 Random Cortisol Blood Type Antibody Screen Crossmatch 06/11/24 06/11/24 07:39 09:22 MCV 95.3 MCH 31.2 MCHC 32.7 RDW 17.4 H Plt Count 42 L MPV 10.2 Immature Gran % (Auto) 2.5 H Neut % (Auto) 80.6 H Lymph % (Auto) 7.2 L Dixie % (Auto) 9.2 Eos % (Auto) 0.3 Baso % (Auto) 0.2 Lymph # (Auto) 0.9 L Dixie # (Auto) 1.1 Eos # (Auto) 0.0 Baso # (Auto) 0.0 Abs Immat Gran (auto) 0.30 H Absolute Neuts (auto) 9.8 H Absolute Nucleated RBC 0.000 Nucleated RBC % (auto) 0.0 PT 13.0 H INR 1.1 APTT 38.8 H D Fibrinogen 251 L Anion Gap Estim Creat Clear Calc Estimated GFR POC Glucose 74 Random Glucose Calcium Phosphorus Magnesium Albumin Triglycerides Random Cortisol Blood Type Antibody Screen Crossmatch Assessment and Plan (1) Recurrent Clostridioides difficile diarrhea: Status: Acute (2) Thrombocytopenia: Status: Acute (3) ESRD (end stage renal disease) on dialysis: Status: Acute (4) UTI (urinary tract infection): Status: Acute Plan 78-year-old male with history of BPH, recurrent C diff colitis, hyperlipidemia, hypertension, history of alcohol use disorder, mild cognitive impairments, sick sinus syndrome s/p pacemaker placement, ESRD on HD MWF, chronic thrombocytopenia admitted for pancolitis and catheter associated UTI Black stool overnight Stable HH s/p 2 units PRBC GI consultation Acute on chronic thrombocytopenia Platelets 63319 HIT panel negative s/p actroban Hold Eliquis until plt reaches 50K Follow platelets closely Heme following s/p 2 units PLT Fibrinogen 251, INR 1.1 Hypomagnesemia/hypophosphatemia/hyponatremia Likely secondary to D10 running, stopped Resolved with repletion Moderately malnourished BMI 19.8 very poor appetite leading to hypoglycemia Declined NGT Nutrition following Ensure added to diet will add remeron start PPN today Plan for Walker catheter today as patient is requiring frequent blood draws and has very poor venous access Hypoglycemia likely secondary to poor appetite and malnutrition s/p D10 D50 for BS less than 60 Acute pancolitis secondary to cdiff Cdiff toxin and gene positive, recurrent ID>Stop zosyn. PO vanco (06/02) QID x 10 days then TID x 1 week, then daily x1 week, then MWF indefinitely given recurrence Diet as tolerated Follow CBC, cultures Concern for UTI Complicated by Right-sided nephrostomy tube. CT Right percutaneous nephrostomy catheter in place air within the collecting system on the right probably iatrogenic infectious process or fistula can not be excluded nephro tube removed History VRE UTI>Initially treated with IV linezolid, urine cx negative Extensive LLE DVT No AC due to profound thombocytopenia Vascular surgery following s/p IVC filter 06/04 ESRD on HD MWF Nephrology following no heparin for flushing Recent dialysis catheter line infection Blood cultures 03/28 positive for Klebsiella. Treated with meropenem during last admission blood cx negative Paroxysmal atrial fibrillation-rate controlled Hold Eliquis as above continue diltiazem, metoprolol and amiodarone Hypertension Diltiazem and metoprolol Sick sinus syndrome Pacemaker in place DVT prophylaxis- SCPs Full code Quality Stroke Does the patient have a stroke diagnosis?: No VTE Prior VTE?: No VTE Risk Level:: Medical - moderate - high VTE Device Contraindication: N/A - Device Ordered VTE Drug Contraindication: Treatment Not Indicated
--- NOTE | 2024-06-11 10:15 | P.CNGI_ITS ---
History of Present Illness Data of Consult Service Date: 06/11/24 Primary Care Provider: Joao Duncan MD HPI Reason for consult: bloody stools 78-year-old male with history of BPH, hx of rectal cancer, recurrent C diff colitis, hyperlipidemia, hypertension, history of alcohol use disorder, mild cognitive impairments, sick sinus syndrome s/p pacemaker placement, ESRD on HD MWF, chronic thrombocytopenia who I am seeing for rectl bleeding Patient was admitted for recurrent c diff and cather assocaited infection. He had episode of rectal bleeding noted in house with melenic stools, Plts counts have been low <50. Seen by hematology and thought t be due to meds and splenomegaly. Smear with schistocytes, and mild raised LDH with increaed retics. No fevers, chills, abdominal pain, nausea, vomiting. Tolerating diet but on PPn due to malnutrition he had also been on eliqusi but stopped due to low plts. Diarrhea is less now, not as frequent Review of Systems 2 Review of Systems: Constitutional : + Weight loss, No Fever, No Chills ENT/Mouth : No sore throat, No Rhinorrhea Eyes: No Swelling, No Redness Cardiovascular : No Chest Pain, No SOB, No Edema Respiratory : No Cough, No Sputum, No Wheezing Gastrointestinal : see HPI Genitourinary : NO Dysuria, No Urinary Frequency, No Hematuria, No Urgency Musculoskeletal : no joint pain, No Myalgias, No Joint Swelling Skin : No Skin Lesions, No rash Neuro : No Weakness, No Numbness, No Dizziness, No Headache Psych : No Anxiety/Panic, No Depression Heme/Lymph: No Bruising, No Lymphadenopathy Endocrine : No Polyuria, No Polydipsia All other systems reviewed and are negative. [facility] Past Medical History Medical History UTI (urinary tract infection) Ileus C. difficile colitis Acute renal failure BPH (benign prostatic hyperplasia) Sinus bradycardia Recto-vesical fistula End stage renal disease Sick sinus syndrome Postoperative hematoma involving digestive system following digestive system procedure Aftercare following left shoulder joint replacement surgery Pacemaker OA (osteoarthritis) Borderline hyperlipidemia Obesity HTN (hypertension) EtOH dependence Mild cognitive impairment Inhibited sex excitement Atrial fibrillation Cancer of kidney High cholesterol Hypertension Family History Family History Mother Heart problem Family history: reviewed and not pertinent Surgical History Surgical History Rectal carcinoma Malignant neoplasm of rectum Rectal mass Encounter for interrogation of cardiac pacemaker Atrial fibrillation with rapid ventricular response Social History Social History Household Members: Family Housing: House Do you presently have visiting nurse or other home services: No Alcohol intake: unknown Comment: PATIENT BEDBOUND AT THIS TIME Patient Tobacco Use Status: Former Tobacco user Tobacco use type: Cigarette Smoked in Last 30 Days: No e-Cigarette/Vaping Use: Never Used Patient Interested in Nicotine Replacement: No Patient Given Instructions on How to Stop Smoking: No Second Hand Smoke Exposure: No Use of substances other than those prescribed or required for medical reasons: No Last Used Substance: Unknown Currently Displaying Signs/Symptoms of Drug Intoxication Withdrawal: No Any prior treatment program specific to substance use: No Have you been hit, kicked, punched, or otherwise hurt by someone within the past year? If so, by whom?: No Do you feel safe in your current relationship?: Yes Is there a partner from a previous relationship who is making you feel unsafe now?: No Are you made to feel afraid or neglected: No Are you DNR?: No Advance Directives: Yes Advance Directives on File: Yes Advance Directives Date on File: 11/29/22 Do you have a plan to hurt others: No Plan Recently lost weight without trying: No How much weight loss: 14-23 pounds Eating poorly because of decreased appetite: No Nutrition screen score: 2 Nutrition Risks: No Nutritional Risk Poor oral hygiene: No service: No Meds Allergies Allergy/AdvReac Type Severity Reaction Status Date / Time No Known Allergies [NKA] Allergy Mild NOT Verified 06/02/24 09:42 APPLICABLE Active Medications: Current Medications Acetaminophen (Acetaminophen 325 Mg Tablet) 650 mg PO Q6H PRN PRN Reason: Pain, Mild 1-3,fever,headache Last Admin: 06/06/24 05:40 Dose: 650 mg Amiodarone HCl (Amiodarone Hcl 200 Mg Tablet) 200 mg PO DAILY NILE Last Admin: 06/11/24 08:01 Dose: 200 mg Calcium Carbonate (Calcium Carbonate 750 Mg Tab.Chew) 750 mg PO Q4H PRN PRN Reason: Heartburn Calcium Carbonate (Calcium Oyster Shell Elemental 500 Mg Tablet) 500 mg PO DAILY [facility] Last Admin: 06/11/24 08:01 Dose: 500 mg Cholestyramine Resin (Cholestyramine (With Sugar) 4 Gm Powd.Pack) 4 gm PO DAILY [facility] Last Admin: 06/11/24 08:00 Dose: 4 gm Dextrose (Dextrose 50 % 25 Gm/50 Ml Syringe) 25 gm IVPUSH Q15M PRN PRN Reason: per Hypoglycemia Standing Ord. Last Admin: 06/11/24 05:42 Dose: 25 gm Diltiazem HCl (Diltiazem Hcl Cd 240 Mg Cap.Er.Deg) 240 mg PO DAILY [facility]; Protocol Last Admin: 06/11/24 08:00 Dose: 240 mg Nutrition (Parenteral) (Parenteral Nutrition) 1,200 mls @ 50 mls/hr IV .Q24H [facility]; Protocol Stop: 06/12/24 20:59 Lactic Acid (Ammonium Lactate 12 % Lotion 226 Gm Bottle) 1 appl TOPICAL DAILY PRN; Protocol PRN Reason: Dry Skin Magnesium Hydroxide (Milk Of Magnesia 30 Ml Oral.Susp) 30 ml PO DAILY PRN PRN Reason: Constipation Magnesium Oxide (Magnesium Oxide 400 Mg Tablet) 400 mg PO BIDPC [facility] Last Admin: 06/11/24 08:00 Dose: 400 mg Melatonin (Melatonin 3 Mg Tablet) 6 mg PO BEDTIME PRN PRN Reason: Insomnia Metoprolol Tartrate (Metoprolol Tartrate 25 Mg Tablet) 25 mg PO DAILY [facility]; Protocol Last Admin: 06/11/24 08:01 Dose: 25 mg Ondansetron HCl (Ondansetron Hcl 4 Mg/2 Ml Vial) 4 mg IVPUSH Q8H PRN PRN Reason: Nausea and Vomiting Pantoprazole Sodium (Pantoprazole Sodium 40 Mg/10 Ml Vial) 40 mg IVPUSH BID@0630,1630 [facility] Last Admin: 06/11/24 05:32 Dose: 40 mg Pharmacy Consult (Consult Rx Parenteral Nutrition Ordering) 1 each MISCELLANE DAILY PRN PRN Reason: Consult order Sodium Chloride (0.9 % Sodium Chloride Flush 3 Ml Syringe) 3 ml IVFLUSH QSHIFT [facility] Last Admin: 06/11/24 07:14 Dose: Not Given Vancomycin HCl (Vancomycin Hcl 125 Mg Capsule) 125 mg PO Q6H [facility] Stop: 06/12/24 15:59 Last Admin: 06/11/24 09:53 Dose: 125 mg Vancomycin HCl (Vancomycin Hcl 125 Mg Capsule) 125 mg PO TID [facility] Stop: 06/19/24 21:59 Vancomycin HCl (Vancomycin Hcl 125 Mg Capsule) 125 mg PO BID [facility] Stop: 06/26/24 21:59 Home Medications ?Medication ?Instructions ?Recorded ?Confirmed ?Last Taken ?Type ammonium lactate 12 % lotion 1 appl topical DAILY PRN Dry Skin 06/02/24 06/02/24 Unknown History apixaban 5 mg tablet (Eliquis) 5 mg PO BID 06/02/24 06/02/24 Unknown History cholestyramine (with sugar) 4 gram 1 ea PO DAILY 06/02/24 06/02/24 Unknown History powder for susp in a packet diltiazem HCl 240 mg 240 mg PO DAILY 06/02/24 06/02/24 Unknown History capsule,extended release 24 hr metoprolol tartrate 25 mg tablet 25 mg PO DAILY 06/02/24 06/02/24 Unknown History pantoprazole 20 mg tablet,delayed 20 mg PO DAILY@0630 06/02/24 06/02/24 Unknown History release vancomycin 125 mg capsule 125 mg PO MOWEFR@0900 06/02/24 06/02/24 Unknown History Physical Exam 2 Vital Signs: Vital Signs: Last Vital Signs Temp 97.1 F 06/11/24 09:05 Pulse 60 06/11/24 09:05 Resp 18 06/11/24 09:05 BP 131/65 06/11/24 09:05 Pulse Ox 96 06/11/24 08:00 O2 Del Method Room Air 06/11/24 08:00 O2 Flow Rate 2 06/07/24 07:09 BMI result Body Mass Index 19.8 EXAM: GENERAL: The patient is frail, VITAL SIGNS:see workflow HEENT: Nonicteric sclerae, PERRLA, EOMI. Oropharynx clear. Moist mucous membranes. Conjunctivae appear well perfused. No thyroid mass. CHEST: Chest wall is nontender. HEART: Regular rate and rhythm without murmurs. LUNGS: Clear to auscultation bilaterally. ABDOMEN: Soft, positive bowel sounds, nontender, no organomegaly.no flank tenderness SKIN: No rash, no excessive bruising, petechiae, or purpura. NEUROLOGIC: Cranial nerves II-XII intact without motor/sensory deficit. Psych: normal affect Results Labs 06/12/24 06:08 06/13/24 06:09 Labs: Short CBC 06/10/24 06/11/24 06/11/24 Range/Units 13:29 06: 09:22 WBC 15.8 H 11.2 H 12.2 H (4.8-10.8) X10*3/uL Hgb 7.8 L 8.1 L 8.7 L (14.0-18.0) g/dl Hct 23.7 L 25.1 L 26.6 L (42.0-52.0) % Plt Count 19 L* 34 L D 42 L (160-400) X10*3/uL BMP 06/10/24 06/10/24 06/11/24 13:29 20:43 06:25 Sodium 122 L 134 L 134 L Potassium 3.4 3.8 3.6 Chloride 95 L 101 99 Carbon Dioxide 24 22 25 BUN 19 H 10 12 Creatinine 3.18 H 1.82 H 2.26 H Calcium 6.0 L* D 7.0 L D 7.1 L Liver Function 06/10/24 06/11/24 Range/Units 13: 06:25 Albumin 1.3 L 2.2 L (3.5-5.0) g/dL Microbiology Microbiology Results: Microbiology 06/02/24 17:46 Blood - Central Line Blood Culture - Final No growth after 5 days. 06/02/24 10:35 Blood - Venous Blood Culture - Final No growth after 5 days. 06/02/24 10:34 Blood - Venous Blood Culture - Final No growth after 5 days. 06/02/24 Unknown Urine Other - Nephrostomy Urine Culture - Final Assessment and Plan (1) Acute blood loss anemia: Status: Acute Plan 1/ Bloody stool in setting of recent colitis, and low plts, likely mucosal bleeding, could be gastritis or from the colitis, low plts being ic by hematology. PLAN: 1/ cont conservative mx, PPI, can add carfate, 2/ hold on endoscopies due to low plts, may cause more trauma 3/ add zinc supplement, Vit C and probiotics, may help healing and recovery - consider checking for thiamine def can also be assocaited [facility] diarrhea Procedures Date of Service Date of Service: 06/13/24
[2024-06-11 11:24] LABS: Glucose, Whole Blood 50 mg/dL (60-115)
[2024-06-11 12:15] LABS: Glucose, Whole Blood 102 mg/dL (60-115)
--- NOTE | 2024-06-11 14:32 | PC.NURSE ---
shortly after arrival pt required bedpan. pt was noted to have a small heme liquid stool. this was reported to Kaleb HART
--- NOTE | 2024-06-11 15:12 | MHC.CM.PN ---
per rounds pt to be started on tpn dcplan remains home with services when medically stable
[2024-06-11 15:46] LABS: Glucose, Whole Blood 34 mg/dL (60-115)
[2024-06-11 16:29] LABS: Glucose, Whole Blood 73 mg/dL (60-115)
[2024-06-11] MEDS: 0.9 % Sodium Chloride Flush 3 ML SYRINGE IVFLUSH (16:43)
--- NOTE | 2024-06-11 17:30 | PM.HEMONCPN ---
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 Patient had prolonged hospitalization at [facility] [place] [facility] from March 25 to 04/18/2024 following which he was in a penitentiary for 3 weeks and just got home a few days back. He says he came back to the hospital because of recurrent diarrhea as well as pain at the site of right nephrostomy tube. He says he is unable to sleep at night because of this. He had right nephrostomy tube placed in March 2024 because of disruption of distal right ureter which may have occurred during reversal of colostomy performed at [facility] as per urology. During the prolonged hospitalization in March and April 2024 patient had developed severe thrombocytopenia with platelet counts below 20 K. he also developed GI bleeding requiring 3 units PRBC transfusion. EGD showed gastritis, duodenitis and candidal esophagitis that was treated with Diflucan. 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 His Eliquis was stopped. Thrombocytopenia was felt to be multifactorial, related to sepsis with Klebsiella line infection, use of antibiotics, as well as previous alcohol use, splenomegaly. At the time of discharge his platelet counts had come up to about 85 K. During that same admission he was noted to have obstruction of the right distal ureter and right PCN was placed on 04/08/2024. Patient states that he was never diagnosed with DVT in the past. He noticed swelling of his left leg last week after being home for a few days. He denies any pleuritic chest pain, shortness of breath or cough. The left leg swelling is about the same. He denies any significant pain in the leg. He had IVC filter placed and received platelet transfusion. He feels about the same but reports lack of appetite. No bruising or bleeding. No hematuria hematochezia. He denies any pain in the left foot or leg although it remains swollen. He had melanotic stools last night. He received both blood and platelet transfusions. Review of Systems - Neurologic Reports no additional neurologic complaints, Reports as per HPI, Reports hearing normal, Denies dizziness, Denies numbness, Denies sensory deficit, Denies weakness [facility] Medical History: Medical History (Last Reviewed 06/08/24 @ 09:16 by Gabriela Thurman RN) Acute renal failure Aftercare following left shoulder joint replacement surgery Atrial fibrillation Borderline hyperlipidemia BPH (benign prostatic hyperplasia) C. difficile colitis Cancer of kidney End stage renal disease EtOH dependence High cholesterol HTN (hypertension) Hypertension Ileus Inhibited sex excitement Mild cognitive impairment OA (osteoarthritis) Obesity Pacemaker Postoperative hematoma involving digestive system following digestive system procedure Recto-vesical fistula Sick sinus syndrome Sinus bradycardia UTI (urinary tract infection) Family History: Family History (Last Reviewed 06/06/24 @ 17:21 by Marily German MD) Mother Heart problem Family history: reviewed and not pertinent Surgical History: Surgical History (Last Reviewed 06/08/24 @ 09:16 by Gabriela Thurman RN) Atrial fibrillation with rapid ventricular response Encounter for interrogation of cardiac pacemaker Malignant neoplasm of rectum Rectal carcinoma Rectal mass Social History: Social History (Last Reviewed 06/06/24 @ 17:21 by Marily German MD) Living Situation History: Household Members: Family Housing: House Do you presently have visiting nurse or other home services: No Alcohol History Details: 1. How often do you have a drink containing alcohol?: a. Never 3. How often do you have six or more drinks on one occasion?: a. Never AUDIT-C Alcohol total score: 0 Last drink: Unknown Currently Displaying Signs/Symptoms of Alcohol Withdrawal: No Tobacco History: Patient Tobacco Use Status: Former Tobacco user Tobacco use type: Cigarette Smoked in Last 30 Days: No e-Cigarette/Vaping Use: Never Used Patient Interested in Nicotine Replacement: No Patient Given Instructions on How to Stop Smoking: No Second Hand Smoke Exposure: No Substance Use History: Use of substances other than those prescribed or required for medical reasons: No Last Used Substance: Unknown Currently Displaying Signs/Symptoms of Drug Intoxication Withdrawal: No Any prior treatment program specific to substance use: No Domestic Abuse History: Have you been hit, kicked, punched, or otherwise hurt by someone within the past year? If so, by whom?: No Do you feel safe in your current relationship?: Yes Is there a partner from a previous relationship who is making you feel unsafe now?: No Are you made to feel afraid or neglected: No Advance Directives: Advance Directives: Yes Advance Directives on File: Yes Advance Directives Date on File: 11/29/22 Homicidal Assessment: Do you have a plan to hurt others: No Plan Nutrition Assessment: Recently lost weight without trying: No How much weight loss: 14-23 pounds Eating poorly because of decreased appetite: No Nutrition screen score: 4 Nutrition Risks: No Nutritional Risk Poor oral hygiene: No Occupation Assessmet: service: No Home Medications and Allergies Current Medications: Current Medications Acetaminophen (Acetaminophen 325 Mg Tablet) 650 mg PO Q6H PRN PRN Reason: Pain, Mild 1-3,fever,headache Last Admin: 06/06/24 05:40 Dose: 650 mg Amiodarone HCl (Amiodarone Hcl 200 Mg Tablet) 200 mg PO DAILY [facility] Last Admin: 06/11/24 08:01 Dose: 200 mg Calcium Carbonate (Calcium Carbonate 750 Mg Tab.Chew) 750 mg PO Q4H PRN PRN Reason: Heartburn Calcium Carbonate (Calcium Oyster Shell Elemental 500 Mg Tablet) 500 mg PO DAILY [facility] Last Admin: 06/11/24 08:01 Dose: 500 mg Cholestyramine Resin (Cholestyramine (With Sugar) 4 Gm Powd.Pack) 4 gm PO DAILY [facility] Last Admin: 06/11/24 08:00 Dose: 4 gm Dextrose (Dextrose 50 % 25 Gm/50 Ml Syringe) 25 gm IVPUSH Q15M PRN PRN Reason: per Hypoglycemia Standing Ord. Last Admin: 06/11/24 15:59 Dose: 25 gm Diltiazem HCl (Diltiazem Hcl Cd 240 Mg Cap.Er.Deg) 240 mg PO DAILY [facility]; Protocol Last Admin: 06/11/24 08:00 Dose: 240 mg Nutrition (Parenteral) (Parenteral Nutrition) 1,200 mls @ 50 mls/hr IV .Q24H [facility]; Protocol Stop: 06/12/24 20:59 Lactic Acid (Ammonium Lactate 12 % Lotion 226 Gm Bottle) 1 appl TOPICAL DAILY PRN; Protocol PRN Reason: Dry Skin Magnesium Hydroxide (Milk Of Magnesia 30 Ml Oral.Susp) 30 ml PO DAILY PRN PRN Reason: Constipation Magnesium Oxide (Magnesium Oxide 400 Mg Tablet) 400 mg PO BIDPC [facility] Last Admin: 06/11/24 16:43 Dose: 400 mg Melatonin (Melatonin 3 Mg Tablet) 6 mg PO BEDTIME PRN PRN Reason: Insomnia Metoprolol Tartrate (Metoprolol Tartrate 25 Mg Tablet) 25 mg PO DAILY [facility]; Protocol Last Admin: 06/11/24 08:01 Dose: 25 mg Ondansetron HCl (Ondansetron Hcl 4 Mg/2 Ml Vial) 4 mg IVPUSH Q8H PRN PRN Reason: Nausea and Vomiting Pantoprazole Sodium (Pantoprazole Sodium 40 Mg/10 Ml Vial) 40 mg IVPUSH BID@0630,1630 [facility] Last Admin: 06/11/24 16:43 Dose: 40 mg Pharmacy Consult (Consult Rx Parenteral Nutrition Ordering) 1 each MISCELLANE DAILY PRN PRN Reason: Consult order Sodium Chloride (0.9 % Sodium Chloride Flush 3 Ml Syringe) 3 ml IVFLUSH QSHIFT [facility] Last Admin: 06/11/24 16:43 Dose: 3 ml Vancomycin HCl (Vancomycin Hcl 125 Mg Capsule) 125 mg PO Q6H [facility] Stop: 06/12/24 15:59 Last Admin: 06/11/24 16:43 Dose: 125 mg Vancomycin HCl (Vancomycin Hcl 125 Mg Capsule) 125 mg PO TID [facility] Stop: 06/19/24 21:59 Vancomycin HCl (Vancomycin Hcl 125 Mg Capsule) 125 mg PO BID [facility] Stop: 06/26/24 21:59 Home Medications ?Medication ?Instructions ?Recorded ?Confirmed ?Type ammonium lactate 12 % lotion 1 appl topical DAILY PRN Dry Skin 06/02/24 06/02/24 History apixaban 5 mg tablet (Eliquis) 5 mg PO BID 06/02/24 06/02/24 History cholestyramine (with sugar) 4 gram 1 ea PO DAILY 06/02/24 06/02/24 History powder for susp in a packet diltiazem HCl 240 mg 240 mg PO DAILY 06/02/24 06/02/24 History capsule,extended release 24 hr metoprolol tartrate 25 mg tablet 25 mg PO DAILY 06/02/24 06/02/24 History pantoprazole 20 mg tablet,delayed 20 mg PO DAILY@0630 06/02/24 06/02/24 History release vancomycin 125 mg capsule 125 mg PO MOWEFR@0900 06/02/24 06/02/24 History Allergies Allergy/AdvReac Type Severity Reaction Status Date / Time No Known Allergies [NKA] Allergy Mild NOT Verified 06/02/24 09:42 APPLICABLE Exam Vital signs: Vital Signs Temp 97.6 F 06/11/24 15:36 Pulse 60 06/11/24 15:36 Resp 18 06/11/24 15:36 BP 158/73 H 06/11/24 15:36 Pulse Ox 94 06/11/24 15:36 O2 Del Method Room Air 06/11/24 15:36 O2 Flow Rate 2 06/07/24 07:09 Intake & Output 06/10/24 06/11/24 06/11/24 18:59 06:59 18:59 Intake Total 1348.75 / 2734.75 1386 / 2734.75 672 / 672 Output Total 200 / 200 Balance 1348.75 / 2534.75 1186 / 2534.75 672 / 672 Urine Output (Average ml/kg/hr) 0.27 0.27 Intake: Intake, Oral Amount 360 / 600 240 / 600 Intake (Blood Product) Amount 0 / 696 696 / 696 672 / 672 Plt Aph Pas Pathreduced(E8342) 346 / 346 Unit [id number] Plt Aph Pas Pathreduced(E8342) 0 / 0 322 / 322 Unit [id number] Red Blood Cells (E0336) Unit 0 / 350 350 / 350 [id number] Red Blood Cells (E0336) Unit 350 / 350 [id number] Intake, IV Amount 988.75 / 1438.75 450 / 1438.75 Albumin Human 25 % 100 ml @ 100 200 / 200 mls/hr IV Q6H [facility] Rx#: [id number] Magnesium Sulfate/H2O 2 gm In 50 / 50 50 ml @ 25 mls/hr IV ONCE ONE Rx#:[id number] Potassium Phosphate/NS 15 mmol 250 / 250 In 250 ml @ 62.5 mls/hr IV ONCE ONE Rx#:[id number] Dextrose 10 % 1,000 ml @ 75 mls 938.75 / 938.75 /hr IVCONT .[id number] [facility] Rx#: [id number] Output: Output, Urine Amount 200 / 200 Other: Meal Refused No No NPO No Yes Yes Breakfast % Eaten 75% npo Lunch % Eaten npo Dinner % Eaten 50% Eating (Feeding) Ability Set Up only Independent Number of Bowel Movements 2 1 10 Urine Urinal Urine Color Yellow Last Bowel Movement 06/09/24 06/11/24 06/11/24 Stool Bedpan Bathroom Incontinent Stool Amount Moderate Small Small Stool Color Brown Blood Tinged Blood Tinged Stool Consistency Loose Liquid Gelatinous Weight 60.8 kg Weight 60.8 kg BMI result Body Mass Index 19.8 - Constitutional Present: average body habitus, chronically ill appearing - Routine HEENT Exam Head: Present: normal inspection - Routine Neck Exam Present: full ROM - Routine Respiratory Exam Present: decreased breath sounds, CTAB - Routine Cardiovascular Exam Cardiovascular: Present: RRR, S1, S2 - Routine Abdominal Exam Present: diminished bowel sounds, soft - Routine Extremities Exam Present: pedal edema - Routine Skin Exam Present: intact Data - Labs CBC & Chem 7: 06/11/24 09:22 06/11/24 06:25 - Imaging Radiologist's impression: ITS Impressions Venous Duplex 06/04/24 14:25 IMPRESSION: No evidence of deep venous thrombosis involving the right upper extremity. Electronically signed by: Lior Lewis MD 06/04/2024 03:08 PM EDT RP Assessment and Plan Patient Active problem list reviewed?: Yes (1) Left leg DVT Status: Acute Assessment and plan: 1. This is a 78-year-old male with multiple medical problems and complicated medical history who is now admitted for recurrent C diff colitis and left lower extremity DVT. Left lower extremity ultrasound showed extensive DVT extending from calf veins into popliteal, femoral and proximal deep femoral and common femoral veins. CT abdomen/pelvis without contrast shows right percutaneous nephrostomy catheter in place, air in the collecting system, probably iatrogenic, infectious or fistula. Indeterminate exophytic lesion of left kidney. Ward colitis with indeterminate soft tissue density with air just below aortic bifurcation, fistulous process can not be excluded. He noticed swelling in his left leg since 05/31/2024. He says he was not taking Eliquis since he left the hospital on April 18. Unfortunately he has developed recurrent thrombocytopenia with platelet counts of 25 K. he has leukocytosis with WBC count of 26.6 with toxic vacuolation, hemoglobin returned to his baseline of 11.9 gram/dL. He is afebrile, blood and urine cultures are pending. He has been started on Zosyn, linezolid, vancomycin and Flagyl. Cause of DVT is probably prolonged hospitalization for over a month and not being on anticoagulation/prophylaxis. Heparin induced thrombocytopenia is also in the differential as he has had ongoing exposure to heparin during dialysis and he has had greater than 50% drop in platelet counts since April. However it is difficult to ascertain the timeline and exposure to heparin. This could also explain thrombosis. HIT assay is pending. Cause of drop in platelet count could also be DIC because of sepsis. He has mild elevation of PT/PTT and decline in fibrinogen level. He received platelet transfusion and underwent IVC filter placement on 06/04/2024. For his left lower extremity DVT, anticoagulation is needed. If platelet counts come at least above 30,000, he could be started on low-dose anticoagulation with argatroban until HIT assay comes back. Patient continues to deny any pain in his left leg or foot. Hit assay was negative. Over the weekend he was on argatroban, this has now been discontinued. He developed melanotic stools yesterday, probably related to anticoagulation. His blood counts responded appropriately to platelet and blood transfusion. DIC panel fortunately shows improvement in fibrinogen panel, therefore he is not in DIC. Continue to monitor off anticoagulation. - Time Spent With Patient Time Spent with Patient (in minutes): 10
[2024-06-11 18:15] LABS: Glucose, Whole Blood 64 mg/dL (60-115)
[2024-06-11 20:10] LABS: Glucose, Whole Blood 48 mg/dL (60-115)
[2024-06-11 20:41] LABS: Glucose, Whole Blood 102 mg/dL (60-115)
[2024-06-11] MEDS: Parenteral Nutrition 1,200 ML 50 ML IV (21:39)
--- NOTE | 2024-06-11 22:26 | PC.NURSE ---
At 2004 patient's POC 48, patient asymptomatic, D50 administered per protocol. recheck POC 102. Hospitalist made aware.
[2024-06-12] VITALS (8 sets, daily range): BP systolic 120–173; BP diastolic 60–77; PULSE 63–92; RESP 16–18; TEMP 36.2–36.7; O2SAT 94–100
[2024-06-12] MEDS: Dextrose 50 % 25 GM/50 ML SYRINGE IVPUSH ×4 (00:26→17:04)
[2024-06-12 00:46] LABS: Glucose, Whole Blood 62 mg/dL (60-115)
[2024-06-12 00:58] LABS: Glucose, Whole Blood 125 mg/dL (60-115)
[2024-06-12 03:19] LABS: Glucose, Whole Blood 55 mg/dL (60-115)
[2024-06-12] MEDS: vancomycin HCL 125 MG CAPSULE PO ×3 (03:23→21:16)
[2024-06-12 04:23] LABS: Glucose, Whole Blood 120 mg/dL (60-115)
[2024-06-12] MEDS: Pantoprazole Sodium 40 MG/10 ML VIAL IVPUSH ×2 (05:41→17:04)
[2024-06-12 05:52] LABS: Glucose, Whole Blood 79 mg/dL (60-115)
[2024-06-12 07:20] LABS: Glucose, Whole Blood 79 mg/dL (60-115)
--- NOTE | 2024-06-12 07:27 | PC.NURSE ---
Late entry: Assumed care of pt at 23:00, A&Ox4, vague, no c/o of pain, on PPN at 50mls/hr.. Per report pt's POC was 102 at 20:37. At 00:09, pt's POC 62, asymptomatic, MD Gamboa notified of the situation, PRN D50 was pushed, see MAR and one cup of OJ given to pt. Recheck POC 125 at 00:54, per MD Gamboa to check POC at 03:00. At 03:12, POC went down to 55, asymptomatic. MD Gamboa notified, PRN D50 given IV push and increased PPN to 75mls/hr. Rechecked POC 120 at 04:15. At 05:49, pt's POC was 79, MD Gamboa notified of the update, no new orders given at this time. Will continue to monitor pt's POC.
[2024-06-12 07:37] LABS: Hematocrit 27.3 % (42.0-52.0); Hemoglobin 9.1 g/dl (14.0-18.0); Mean Corpuscular HGB Conc 33.3 g/dl (31.0-36.0); Mean Corpuscular Hemoglobin 30.8 pg (27.0-33.0); Mean Corpuscular Volume 92.5 fL (80.0-98.0); Mean Platelet Volume 12.5 fL (9.4-12.4); Red Blood Count 2.95 X10*6/uL (4.60-5.80); Red Cell Distribution Width 17.1 % (11.0-16.0)
[2024-06-12 07:38] LABS: Platelet Count 28 X10*3/uL (160-400)
[2024-06-12 07:45] LABS: Anion Gap 10 (12-20); Blood Urea Nitrogen 19 mg/dL (9-16); Calcium 7.2 mg/dL (8.4-10.2); Carbon Dioxide 27 mmol/L (22-29); Chloride 99 mmol/L (96-108); Estimated Glomerular Filt Rate 24; Glucose Random 88 mg/dL (60-115); Magnesium 2.1 mg/dL (1.6-2.6); Phosphorus 2.6 mg/dL (2.7-4.5); Potassium 3.5 mmol/L (3.3-5.1); Sodium 132 mmol/L (135-145)
--- NOTE | 2024-06-12 10:13 | MHC.CLN ---
F/U DIET ADVANCED TO 2GM NA PT ALSO RECEIVING ENSURE TID TO INCREASE PO NO PO INTAKE RECORDS FOR 06/11 NOTED REMERON ADDED PER MD REVIEWED LABS DISCUSSED WITH PHARMACY RECOMMEND INCREASING PPN TO 70ML/HR TO PROVIDE 857KCALS, 168G DEXTROSE, 71G PROTEIN (1.2G/KG) REPLETE LYTES NEEDED-MONITOR MG, PHOS, AND K+ CLOSELY GOAL TO DECREASE PPN PO INTAKE IMPROVES
[2024-06-12 11:45] LABS: Glucose, Whole Blood 53 mg/dL (60-115)
[2024-06-12 12:55] LABS: Glucose, Whole Blood 95 mg/dL (60-115)
[2024-06-12] MEDS: dilTIAZem HCL CD 240 MG CAP.ER.DEG PO (13:03)
[2024-06-12] MEDS: Amiodarone HCL 200 MG TABLET PO (13:03)
[2024-06-12] MEDS: Metoprolol Tartrate 25 MG TABLET PO (13:03)
[2024-06-12] MEDS: Calcium Oyster Shell Elemental 500 MG TABLET PO (13:03)
[2024-06-12] MEDS: Cholestyramine (With Sugar) 4 GM POWD.PACK PO (13:04)
--- NOTE | 2024-06-12 14:55 | P.PNIM_ITS ---
Subjective Subjective Date of Service: 06/12/24 Interval History: Seen and examined this morning-seen in dialysis Follow-up for multiple issues History obtained with the assistance of a senior agricultural assistant Patient reports no specific complaints Review of Systems Review of Systems: Yes all other systems are reviewed and are negative Constitutional Constitutional: Denies chills and Denies fever(s) Cardiovascular Cardiovascular: Denies chest pain, Denies palpitations and Denies dyspnea Respiratory Respiratory: Denies cough and Denies dyspnea Gastrointestinal Gastrointestinal: Denies abdominal pain Endocrine Endocrine: Denies palpitations Physical Exam 2 Vital Signs: Vital Signs: Last Vital Signs Temp 98.0 F 06/12/24 12:46 Pulse 92 06/12/24 13:03 Resp 18 06/12/24 12:46 BP 150/74 H 06/12/24 13:03 Pulse Ox 99 06/12/24 12:46 O2 Del Method Room Air 06/12/24 12:46 O2 Flow Rate 2 06/07/24 07:09 BMI result Body Mass Index 19.8 Const: General: cooperative, comfortable, alert and awake O rientation/consciousness: oriented to person and oriented to place Chest: Other: walker right chest Resp: Effort & Inspection: normal respiratory effort, able to speak in complete sentences, no respiratory distress and no use of accessory muscles Cardio: Rate: regular rate GI: Inspection: No distended Palpation (GI): Soft to palpation and nontender Neuro: Other: grossly nonfocal General: oriented to person and oriented to place Extrem: Other: LLE edema Objective Data Active Medications Acetaminophen (Acetaminophen 325 Mg Tablet) 650 mg PO Q6H PRN PRN Reason: Pain, Mild 1-3,fever,headache Last Admin: 06/06/24 05:40 Dose: 650 mg Documented By: JESUS Amiodarone HCl (Amiodarone Hcl 200 Mg Tablet) 200 mg PO DAILY [facility] Last Admin: 06/12/24 13:03 Dose: 200 mg Documented By: CAROLINA Calcium Carbonate (Calcium Carbonate 750 Mg Tab.Chew) 750 mg PO Q4H PRN PRN Reason: Heartburn Calcium Carbonate (Calcium Oyster Shell Elemental 500 Mg Tablet) 500 mg PO DAILY [facility] Last Admin: 06/12/24 13:03 Dose: 500 mg Documented By: CAROLINA Cholestyramine Resin (Cholestyramine (With Sugar) 4 Gm Powd.Pack) 4 gm PO DAILY [facility] Last Admin: 06/12/24 13:04 Dose: 4 gm Documented By: CAROLINA Dextrose (Dextrose 50 % 25 Gm/50 Ml Syringe) 25 gm IVPUSH Q15M PRN PRN Reason: per Hypoglycemia Standing Ord. Last Admin: 06/12/24 11:59 Dose: 25 gm Documented By: BRYNN Diltiazem HCl (Diltiazem Hcl Cd 240 Mg Cap.Er.Deg) 240 mg PO DAILY [facility]; Protocol Last Admin: 06/12/24 13:03 Dose: 240 mg Documented By: CAROLINA Nutrition (Parenteral) (Parenteral Nutrition) 1,200 mls @ 75 mls/hr IV .Q16H [facility]; Protocol Stop: 06/12/24 15:04 Last Infusion: 06/12/24 13:12 Dose: 75 mls/hr Documented By: CAROLINA Nutrition (Parenteral) (Parenteral Nutrition) 1,680 mls @ 70 mls/hr IV .Q24H [facility]; Protocol Stop: 06/13/24 20:59 Lactic Acid (Ammonium Lactate 12 % Lotion 226 Gm Bottle) 1 appl TOPICAL DAILY PRN; Protocol PRN Reason: Dry Skin Magnesium Hydroxide (Milk Of Magnesia 30 Ml Oral.Susp) 30 ml PO DAILY PRN PRN Reason: Constipation Magnesium Oxide (Magnesium Oxide 400 Mg Tablet) 400 mg PO BIDPC [facility] Last Admin: 06/12/24 13:05 Dose: Not Given Documented By: CAROLINA Non-Admin Reason: Off unit: Dialysis Melatonin (Melatonin 3 Mg Tablet) 6 mg PO BEDTIME PRN PRN Reason: Insomnia Metoprolol Tartrate (Metoprolol Tartrate 25 Mg Tablet) 25 mg PO DAILY [facility]; Protocol Last Admin: 06/12/24 13:03 Dose: 25 mg Documented By: CAROLINA Ondansetron HCl (Ondansetron Hcl 4 Mg/2 Ml Vial) 4 mg IVPUSH Q8H PRN PRN Reason: Nausea and Vomiting Pantoprazole Sodium (Pantoprazole Sodium 40 Mg/10 Ml Vial) 40 mg IVPUSH BID@0630,1630 [facility] Last Admin: 06/12/24 05:41 Dose: 40 mg Documented By: EMILIANO Pharmacy Consult (Consult Rx Parenteral Nutrition Ordering) 1 each MISCELLANE DAILY PRN PRN Reason: Consult order Sodium Chloride (0.9 % Sodium Chloride Flush 3 Ml Syringe) 3 ml IVFLUSH QSHIFT [facility] Last Admin: 06/12/24 07:25 Dose: Not Given Documented By: CAROLINA Non-Admin Reason: IV Running Vancomycin HCl (Vancomycin Hcl 125 Mg Capsule) 125 mg PO Q6H [facility] Stop: 06/12/24 15:59 Last Admin: 06/12/24 13:04 Dose: 125 mg Documented By: CAROLINA Vancomycin HCl (Vancomycin Hcl 125 Mg Capsule) 125 mg PO TID [facility] Stop: 06/19/24 21:59 Vancomycin HCl (Vancomycin Hcl 125 Mg Capsule) 125 mg PO BID [facility] Stop: 06/26/24 21:59 Labs 06/12/24 06:08 06/12/24 06:08 Labs: Laboratory Results - last 24 hr 06/11/24 06/11/24 06/11/24 15:41 16:25 18:11 MCV MCH MCHC RDW Plt Count MPV Absolute Nucleated RBC Nucleated RBC % (auto) Anion Gap Estim Creat Clear Calc Estimated GFR POC Glucose 34 L* 73 64 Random Glucose Calcium Phosphorus Magnesium Albumin 06/11/24 06/11/24 06/12/24 20:04 20:37 00:09 MCV MCH MCHC RDW Plt Count MPV Absolute Nucleated RBC Nucleated RBC % (auto) Anion Gap Estim Creat Clear Calc Estimated GFR POC Glucose 48 L* 102 62 Random Glucose Calcium Phosphorus Magnesium Albumin 06/12/24 06/12/24 06/12/24 00:54 03:12 04:15 MCV MCH MCHC RDW Plt Count MPV Absolute Nucleated RBC Nucleated RBC % (auto) Anion Gap Estim Creat Clear Calc Estimated GFR POC Glucose 125 H 55 L* 120 H Random Glucose Calcium Phosphorus Magnesium Albumin 06/12/24 06/12/24 06/12/24 05:49 06:08 07:16 MCV 92.5 MCH 30.8 MCHC 33.3 RDW 17.1 H Plt Count 28 L D MPV 12.5 H Absolute Nucleated RBC 0.000 Nucleated RBC % (auto) 0.0 Anion Gap 10 L Estim Creat Clear Calc 20.0 Estimated GFR 24 POC Glucose 79 79 Random Glucose 88 Calcium 7.2 L Phosphorus 2.6 L Magnesium 2.1 Albumin 2.0 L 06/12/24 06/12/24 11:40 12:50 MCV MCH MCHC RDW Plt Count MPV Absolute Nucleated RBC Nucleated RBC % (auto) Anion Gap Estim Creat Clear Calc Estimated GFR POC Glucose 53 L* 95 Random Glucose Calcium Phosphorus Magnesium Albumin Assessment and Plan (1) Left leg DVT: Status: Acute (2) Heme positive stool: Status: Acute (3) Thrombocytopenia: Status: Acute (4) ESRD (end stage renal disease) on dialysis: Status: Acute Plan This is a 78-year-old male with history of BPH, recurrent C diff colitis, hyperlipidemia, hypertension, history of alcohol use disorder, mild cognitive impairments, sick sinus syndrome s/p pacemaker placement, ESRD on HD MWF, chronic thrombocytopenia admitted for pancolitis and catheter associated UTI rectal bleeding overnight 06/11 s/p 2 units PRBC repeat H/H stable had EGD 03/2024, showing gastritis, severe duodenitis GI consult pending Acute on chronic thrombocytopenia HIT panel negative s/p argatroban Hold Eliquis until plt reaches 50K Follow platelets closely Heme following s/p 2 units PLT Fibrinogen 251, INR 1.1 Hypomagnesemia/hypophosphatemia/hyponatremia Likely secondary to D10 running, stopped Resolved with repletion Moderately malnourished BMI 19.8 very poor appetite leading to hypoglycemia Declined NGT Nutrition following Ensure added to diet started on PPN today s/p Walker catheter 06/11 as patient is requiring frequent blood draws and has very poor venous access Hypoglycemia likely secondary to poor appetite and malnutrition s/p D10 D50 for BS less than 60 Acute pancolitis secondary to cdiff Cdiff toxin and gene positive, recurrent ID>Stop zosyn. PO vanco (06/02) QID x 10 days then TID x 1 week, then daily x1 week, then MWF indefinitely given recurrence Diet as tolerated Follow CBC, cultures Concern for UTI Complicated by Right-sided nephrostomy tube. CT Right percutaneous nephrostomy catheter in place air within the collecting system on the right probably iatrogenic infectious process or fistula can not be excluded nephro tube removed History VRE UTI>Initially treated with IV linezolid, urine cx negative seen by ID, rec no abx Extensive LLE DVT No AC due to profound thombocytopenia Vascular surgery following s/p IVC filter 06/04 ESRD on HD MWF Nephrology following no heparin for flushing Recent dialysis catheter line infection Blood cultures 03/28 positive for Klebsiella. Treated with meropenem during last admission blood cx negative Paroxysmal atrial fibrillation-rate controlled Hold Eliquis as above continue diltiazem, metoprolol and amiodarone Hypertension Diltiazem and metoprolol Sick sinus syndrome Pacemaker in place DVT prophylaxis- SCPs Full code Quality Stroke Does the patient have a stroke diagnosis?: No VTE Prior VTE?: No VTE Risk Level:: Medical - moderate - high VTE Device Contraindication: N/A - Device Ordered VTE Drug Contraindication: Treatment Not Indicated
[2024-06-12 16:28] LABS: Glucose, Whole Blood 58 mg/dL (60-115)
[2024-06-12] MEDS: Dextrose 5 % 1,000 ML 80 ML IVCONT (17:04)
[2024-06-12] MEDS: Magnesium Oxide 400 MG TABLET PO (17:04)
[2024-06-12 17:57] LABS: Glucose, Whole Blood 140 mg/dL (60-115)
[2024-06-12 20:26] LABS: Glucose, Whole Blood 95 mg/dL (60-115)
[2024-06-12] MEDS: Parenteral Nutrition 1,680 ML 70 ML IV (21:16)
[2024-06-12 21:59] LABS: Anion Gap 9 (12-20); Blood Urea Nitrogen 12 mg/dL (9-16); Calcium 7.5 mg/dL (8.4-10.2); Carbon Dioxide 28 mmol/L (22-29); Chloride 101 mmol/L (96-108); Creatinine Clr Calc Pharmacy 29.8; Estimated Glomerular Filt Rate 37; Glucose Random 126 mg/dL (60-115); Potassium 3.5 mmol/L (3.3-5.1); Sodium 134 mmol/L (135-145)
[2024-06-13] VITALS (11 sets, daily range): BP systolic 117–165; BP diastolic 55–70; PULSE 55–63; RESP 16–20; TEMP 36.2–37.1; O2SAT 94–100
[2024-06-13 00:23] LABS: Glucose, Whole Blood 115 mg/dL (60-115)
[2024-06-13] MEDS: Dextrose 5 % 1,000 ML 80 ML IVCONT (03:39)
[2024-06-13] MEDS: Pantoprazole Sodium 40 MG/10 ML VIAL IVPUSH ×2 (06:14→16:31)
[2024-06-13 06:22] LABS: Glucose, Whole Blood 112 mg/dL (60-115)
[2024-06-13 06:51] LABS: Hematocrit 25.1 % (42.0-52.0); Hemoglobin 8.4 g/dl (14.0-18.0); Mean Corpuscular HGB Conc 33.5 g/dl (31.0-36.0); Mean Corpuscular Hemoglobin 31.6 pg (27.0-33.0); Mean Corpuscular Volume 94.4 fL (80.0-98.0); Red Blood Count 2.66 X10*6/uL (4.60-5.80); Red Cell Distribution Width 16.7 % (11.0-16.0); White Blood Count 14.7 X10*3/uL (4.8-10.8)
[2024-06-13 07:02] LABS: Albumin Level 1.8 g/dL (3.5-5.0); Anion Gap 8 (12-20); Blood Urea Nitrogen 17 mg/dL (9-16); Calcium 7.4 mg/dL (8.4-10.2); Carbon Dioxide 28 mmol/L (22-29); Chloride 99 mmol/L (96-108); Creatinine Clr Calc Pharmacy 28.6; Estimated Glomerular Filt Rate 35; Glucose Random 118 mg/dL (60-115); Phosphorus 1.6 mg/dL (2.7-4.5); Potassium 3.8 mmol/L (3.3-5.1); Sodium 131 mmol/L (135-145)
[2024-06-13 07:31] LABS: Glucose, Whole Blood 104 mg/dL (60-115)
[2024-06-13 07:48] LABS: Platelet Count 16 X10*3/uL (160-400)
[2024-06-13] MEDS: Amiodarone HCL 200 MG TABLET PO (08:35)
[2024-06-13] MEDS: dilTIAZem HCL CD 240 MG CAP.ER.DEG PO (08:35)
[2024-06-13] MEDS: Magnesium Oxide 400 MG TABLET PO ×2 (08:35→16:31)
[2024-06-13 08:41] LABS: Lactate Dehydrogenase 294 U/L (118-273)
[2024-06-13] MEDS: Cholestyramine (With Sugar) 4 GM POWD.PACK PO (08:41)
[2024-06-13] MEDS: Calcium Oyster Shell Elemental 500 MG TABLET PO (08:41)
[2024-06-13] MEDS: predniSONE 20 MG TABLET 40 MG PO (08:41)
[2024-06-13] MEDS: Metoprolol Tartrate 25 MG TABLET PO (08:41)
[2024-06-13 08:44] LABS: Haptoglobin < 8 mg/dL (40-268)
--- NOTE | 2024-06-13 09:04 | PM.HEMONCPN ---
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 Patient had prolonged hospitalization at [facility] from March 25 to 04/18/2024 following which he was in a alf for 3 weeks and just got home a few days back. He says he came back to the hospital because of recurrent diarrhea as well as pain at the site of right nephrostomy tube. He says he is unable to sleep at night because of this. He had right nephrostomy tube placed in March 2024 because of disruption of distal right ureter which may have occurred during reversal of colostomy performed at [facility] as per urology. During the prolonged hospitalization in March and April 2024 patient had developed severe thrombocytopenia with platelet counts below 20 K. he also developed GI bleeding requiring 3 units PRBC transfusion. EGD showed gastritis, duodenitis and candidal esophagitis that was treated with Diflucan. 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 His Eliquis was stopped. Thrombocytopenia was felt to be multifactorial, related to sepsis with Klebsiella line infection, use of antibiotics, as well as previous alcohol use, splenomegaly. At the time of discharge his platelet counts had come up to about 85 K. During that same admission he was noted to have obstruction of the right distal ureter and right PCN was placed on 04/08/2024. Patient states that he was never diagnosed with DVT in the past. He noticed swelling of his left leg last week after being home for a few days. He denies any pleuritic chest pain, shortness of breath or cough. The left leg swelling is about the same. He denies any significant pain in the leg. He had IVC filter placed and received platelet transfusion. He feels about the same but reports lack of appetite. No bruising or bleeding. No hematuria hematochezia. He denies any pain in the left foot or leg although it remains swollen. He offers no complaints today. Review of Systems - Neurologic Reports system reviewed and no additional complaints, except as documented, Reports as per HPI, Reports hearing normal, Denies dizziness, Denies numbness, Denies sensory deficit, Denies weakness [facility] Medical History: Medical History (Last Reviewed 06/08/24 @ 09:16 by Gabriela Thurman RN) Acute renal failure Aftercare following left shoulder joint replacement surgery Atrial fibrillation Borderline hyperlipidemia BPH (benign prostatic hyperplasia) C. difficile colitis Cancer of kidney End stage renal disease EtOH dependence High cholesterol HTN (hypertension) Hypertension Ileus Inhibited sex excitement Mild cognitive impairment OA (osteoarthritis) Obesity Pacemaker Postoperative hematoma involving digestive system following digestive system procedure Recto-vesical fistula Sick sinus syndrome Sinus bradycardia UTI (urinary tract infection) Family History: Family History (Last Reviewed 06/06/24 @ 17:21 by Marily German MD) Mother Heart problem Family history: reviewed and not pertinent Surgical History: Surgical History (Last Reviewed 06/08/24 @ 09:16 by Gabriela Thurman RN) Atrial fibrillation with rapid ventricular response Encounter for interrogation of cardiac pacemaker Malignant neoplasm of rectum Rectal carcinoma Rectal mass Social History: Social History (Last Reviewed 06/06/24 @ 17:21 by Marily German MD) Living Situation History: Household Members: Family Housing: House Do you presently have visiting nurse or other home services: No Alcohol History Details: 1. How often do you have a drink containing alcohol?: a. Never 3. How often do you have six or more drinks on one occasion?: a. Never AUDIT-C Alcohol total score: 0 Last drink: Unknown Currently Displaying Signs/Symptoms of Alcohol Withdrawal: No Tobacco History: Patient Tobacco Use Status: Former Tobacco user Tobacco use type: Cigarette Smoked in Last 30 Days: No e-Cigarette/Vaping Use: Never Used Patient Interested in Nicotine Replacement: No Patient Given Instructions on How to Stop Smoking: No Second Hand Smoke Exposure: No Substance Use History: Use of substances other than those prescribed or required for medical reasons: No Last Used Substance: Unknown Currently Displaying Signs/Symptoms of Drug Intoxication Withdrawal: No Any prior treatment program specific to substance use: No Domestic Abuse History: Have you been hit, kicked, punched, or otherwise hurt by someone within the past year? If so, by whom?: No Do you feel safe in your current relationship?: Yes Is there a partner from a previous relationship who is making you feel unsafe now?: No Are you made to feel afraid or neglected: No Advance Directives: Advance Directives: Yes Advance Directives on File: Yes Advance Directives Date on File: 11/29/22 Homicidal Assessment: Do you have a plan to hurt others: No Plan Nutrition Assessment: Recently lost weight without trying: No How much weight loss: 14-23 pounds Eating poorly because of decreased appetite: No Nutrition screen score: 4 Nutrition Risks: No Nutritional Risk Poor oral hygiene: No Occupation Assessmet: service: No Home Medications and Allergies Current Medications: Current Medications Acetaminophen (Acetaminophen 325 Mg Tablet) 650 mg PO Q6H PRN PRN Reason: Pain, Mild 1-3,fever,headache Last Admin: 06/06/24 05:40 Dose: 650 mg Amiodarone HCl (Amiodarone Hcl 200 Mg Tablet) 200 mg PO DAILY [facility] Last Admin: 06/13/24 08:35 Dose: 200 mg Calcium Carbonate (Calcium Carbonate 750 Mg Tab.Chew) 750 mg PO Q4H PRN PRN Reason: Heartburn Calcium Carbonate (Calcium Oyster Shell Elemental 500 Mg Tablet) 500 mg PO DAILY [facility] Last Admin: 06/13/24 08:41 Dose: 500 mg Cholestyramine Resin (Cholestyramine (With Sugar) 4 Gm Powd.Pack) 4 gm PO DAILY [facility] Last Admin: 06/13/24 08:41 Dose: 4 gm Dextrose (Dextrose 50 % 25 Gm/50 Ml Syringe) 25 gm IVPUSH Q15M PRN PRN Reason: per Hypoglycemia Standing Ord. Last Admin: 06/12/24 17:04 Dose: 25 gm Diltiazem HCl (Diltiazem Hcl Cd 240 Mg Cap.Er.Deg) 240 mg PO DAILY [facility]; Protocol Last Admin: 06/13/24 08:35 Dose: 240 mg Nutrition (Parenteral) (Parenteral Nutrition) 1,680 mls @ 70 mls/hr IV .Q24H [facility]; Protocol Stop: 06/13/24 20:59 Last Admin: 06/12/24 21:16 Dose: 70 mls/hr Dextrose (D5w) 1,000 mls @ 80 mls/hr IVCONT .[id number] [facility] Last Admin: 06/13/24 06:17 Dose: Not Given Lactic Acid (Ammonium Lactate 12 % Lotion 226 Gm Bottle) 1 appl TOPICAL DAILY PRN; Protocol PRN Reason: Dry Skin Magnesium Hydroxide (Milk Of Magnesia 30 Ml Oral.Susp) 30 ml PO DAILY PRN PRN Reason: Constipation Magnesium Oxide (Magnesium Oxide 400 Mg Tablet) [facility] Last Admin: 06/13/24 08:35 Dose: 400 mg Melatonin (Melatonin 3 Mg Tablet) 6 mg PO BEDTIME PRN PRN Reason: Insomnia Metoprolol Tartrate (Metoprolol Tartrate 25 Mg Tablet) 25 mg PO DAILY [facility]; Protocol Last Admin: 06/13/24 08:41 Dose: 25 mg Ondansetron HCl (Ondansetron Hcl 4 Mg/2 Ml Vial) 4 mg IVPUSH Q8H PRN PRN Reason: Nausea and Vomiting Pantoprazole Sodium (Pantoprazole Sodium 40 Mg/10 Ml Vial) 40 mg IVPUSH BID@0630,1630 [facility] Last Admin: 06/13/24 06:14 Dose: 40 mg Pharmacy Consult (Consult Rx Parenteral Nutrition Ordering) 1 each MISCELLANE DAILY PRN PRN Reason: Consult order Prednisone (Prednisone 20 Mg Tablet) 40 mg PO DAILY [facility] Last Admin: 06/13/24 08:41 Dose: 40 mg Sodium Chloride (0.9 % Sodium Chloride Flush 3 Ml Syringe) 3 ml IVFLUSH QSHIFT [facility] Last Admin: 06/13/24 07:01 Dose: Not Given Vancomycin HCl (Vancomycin Hcl 125 Mg Capsule) 125 mg PO TID [facility] Stop: 06/19/24 21:59 Last Admin: 06/12/24 21:16 Dose: 125 mg Vancomycin HCl (Vancomycin Hcl 125 Mg Capsule) 125 mg PO BID [facility] Stop: 06/26/24 21:59 Home Medications ?Medication ?Instructions ?Recorded ?Confirmed ?Type ammonium lactate 12 % lotion 1 appl topical DAILY PRN Dry Skin 06/02/24 06/02/24 History apixaban 5 mg tablet (Eliquis) 5 mg PO BID 06/02/24 06/02/24 History cholestyramine (with sugar) 4 gram 1 ea PO DAILY 06/02/24 06/02/24 History powder for susp in a packet diltiazem HCl 240 mg 240 mg PO DAILY 06/02/24 06/02/24 History capsule,extended release 24 hr metoprolol tartrate 25 mg tablet 25 mg PO DAILY 06/02/24 06/02/24 History pantoprazole 20 mg tablet,delayed 20 mg PO DAILY@0630 06/02/24 06/02/24 History release vancomycin 125 mg capsule 125 mg PO MOWEFR@0900 06/02/24 06/02/24 History Allergies Allergy/AdvReac Type Severity Reaction Status Date / Time No Known Allergies [NKA] Allergy Mild NOT Verified 06/02/24 09:42 APPLICABLE Exam Vital signs: Vital Signs Temp 97.4 F 06/13/24 08:00 Pulse 60 06/13/24 08:41 Resp 16 06/13/24 08:00 BP 147/65 H 06/13/24 08:41 Pulse Ox 95 06/13/24 08:00 O2 Del Method Room Air 06/13/24 08:00 O2 Flow Rate 2 06/07/24 07:09 Intake & Output 06/12/24 06/13/24 06/13/24 18:59 06:59 18:59 Intake Total 1487.083 / 2646.667 1159.584 / 2646.667 Output Total 300 / 350 50 / 350 Balance 1187.083 / 2296.667 1109.584 / 2296.667 Urine Output (Average ml/kg/hr) 0.41 0.07 Intake: Intake, Oral Amount 480 / 600 120 / 600 Intake, IV Amount 1007.083 / 2046.667 1039.584 / 2046.667 Parenteral Nutrition 1,200 ml @ 1007.083 / 1200.000 192.917 / 1200.000 50 mls/hr IV .Q24H [facility] Rx#: [id number] Dextrose 5 % 1,000 ml @ 80 mls/ 846.667 / 846.667 hr IVCONT .[id number] [facility] Rx#: [id number] Output: Output, Urine Amount 300 / 350 50 / 350 Other: Meal Refused No NPO No Breakfast % Eaten 0% Lunch % Eaten 50% Dinner % Eaten 75% Eating (Feeding) Ability Independent Number of Bowel Movements 1 3 Urine Urinal Urinal Urine Color Yellow Straw Last Bowel Movement 06/12/24 06/13/24 Stool Incontinent Incontinent Stool Amount Moderate Small Stool Color Brown Blood Tinged Stool Consistency Liquid Loose Weight 60.8 kg BMI result Body Mass Index 19.8 - Constitutional Present: average body habitus, chronically ill appearing - Routine HEENT Exam Head: Present: normal inspection - Routine Neck Exam Present: full ROM - Routine Respiratory Exam Present: decreased breath sounds, CTAB - Routine Cardiovascular Exam Cardiovascular: Present: RRR, S1, S2 - Routine Abdominal Exam Present: diminished bowel sounds, soft - Routine Extremities Exam Present: pedal edema - Routine Skin Exam Present: intact Data - Labs CBC & Chem 7: 06/16/24 06:19 06/16/24 06:19 - Imaging Radiologist's impression: ITS Impressions Removal Nephrostomy 06/04/24 11:30 IMPRESSION: The right nephrostomy catheter was removed as it was not needed anymore. Electronically signed by: Alfredo Ramirez MD 06/13/2024 06:57 AM EDT RP Venous Duplex 06/04/24 14:25 IMPRESSION: No evidence of deep venous thrombosis involving the right upper extremity. Electronically signed by: Lior Lewis MD 06/04/2024 03:08 PM EDT RP Guidance Ultrasound 06/11/24 14:00 IMPRESSION: Placement of a tunneled central venous catheter in the right internal jugular vein. PLAN: -The catheter may be used immediately. Electronically signed by: Rodolfo Hunter MD 06/11/2024 03:12 PM EDT RP Insertion Tunneled Catheter 06/11/24 15:07 IMPRESSION: Placement of a tunneled central venous catheter in the right internal jugular vein. PLAN: -The catheter may be used immediately. Electronically signed by: Rodolfo Hunter MD 06/11/2024 03:12 PM EDT RP Assessment and Plan Patient Active problem list reviewed?: Yes (1) Left leg DVT Status: Acute Assessment and plan: 1. This is a 78-year-old male with multiple medical problems and complicated medical history who is now admitted for recurrent C diff colitis and left lower extremity DVT. Left lower extremity ultrasound showed extensive DVT extending from calf veins into popliteal, femoral and proximal deep femoral and common femoral veins. CT abdomen/pelvis without contrast shows right percutaneous nephrostomy catheter in place, air in the collecting system, probably iatrogenic, infectious or fistula. Indeterminate exophytic lesion of left kidney. Ward colitis with indeterminate soft tissue density with air just below aortic bifurcation, fistulous process can not be excluded. He noticed swelling in his left leg since 05/31/2024. He was not taking Eliquis since he left the hospital on April 18. He received platelet transfusion and underwent IVC filter placement on 06/04/2024. Causes of thrombocytopenia-heparin induced thrombocytopenia and DIC have been ruled out. TTP has been ruled out as his kidney functions remained stable on dialysis and LDH has been declining. Haptoglobin is less than 8 suggesting ongoing hemolysis. Submit Juan Diego test. Therefore autoimmune causes of thrombocytopenia is in the differential. Underlying malignancy, myelodysplastic syndrome is also a possibility. Recommend starting him on prednisone 40 mg once a day along with GI prophylaxis. 2. Left lower extremity DVT, status post IVC filter placement. He has not resumed anticoagulation because of severe thrombocytopenia as well as GI bleeding. - Time Spent With Patient Time Spent with Patient (in minutes): 10
[2024-06-13] MEDS: vancomycin HCL 125 MG CAPSULE PO ×3 (09:15→21:06)
[2024-06-13 09:35] LABS: Glucose, Whole Blood 138 mg/dL (60-115)
[2024-06-13 09:48] LABS: Alanine Aminotransferase < 6 U/L (0-40); Alkaline Phosphatase 80 U/L (39-117); Aspartate Amino Transferase 12 U/L (5-37); Bilirubin Direct 0.3 mg/dL (0.0-0.5); Bilirubin Total 0.5 mg/dL (0.0-1.0); Total Protein 4.1 g/dL (6.5-8.0)
[2024-06-13 11:14] LABS: Glucose, Whole Blood 105 mg/dL (60-115)
[2024-06-13 11:18] LABS: Procalcitonin 2.65 ng/mL
--- NOTE | 2024-06-13 11:28 | MHC.CLN ---
F/U COMMUNICATED WITH PROVIDER. OK TO STOP PPN TODAY. INTAKE APPROX 50% AT MEALS. DIET CHANGED TO REGULAR TO PROMOTE PO INTAKE. SUPPLEMENT ENSURE TID (1050 KCALS, 60 G PROTEIN). PATIENT LIKES/ACCEPTS SUPPLEMENT. CONTINUES WITH HEMODIALYSIS. MONITOR PO INTAKE AND LABS.
[2024-06-13] MEDS: Potassium Phosphate/NS 15 MMOL/250 ML PLAST..BAG 62.5 MMOL IV (11:47)
[2024-06-13 16:03] LABS: Glucose, Whole Blood 125 mg/dL (60-115)
[2024-06-13] MEDS: 0.9 % Sodium Chloride Flush 3 ML SYRINGE IVFLUSH ×2 (16:30→23:54)
--- NOTE | 2024-06-13 18:12 | HO.PM.IMPN ---
Subjective Subjective Date of Service: 06/14/24 Interval History: Seen and examined this morning Patient reporting shortness of breath Denies cough Review of Systems Review of Systems: Yes all other systems are reviewed and are negative Constitutional Constitutional: Reports chills and Denies fever(s) ENT Ears, Nose, Mouth, and Throat: Denies dizziness Neurologic Neurologic: Denies dizziness Physical Exam Vital Signs: Vital Signs: Last Vital Signs Temp 97.4 F 06/13/24 15:17 Pulse 55 06/13/24 15:17 Resp 16 06/13/24 15:17 BP 131/58 L 06/13/24 15:17 Pulse Ox 98 06/13/24 15:17 O2 Del Method Nasal Cannula 06/13/24 15:17 O2 Flow Rate 3 06/13/24 15:17 BMI result Body Mass Index 19.8 Const: Other: frail, ill apperring General: cooperative, comfortable, alert and awake Chest: Other: walker right chest Resp: Other: diminished breath sounds, increased wob Effort & Inspection: normal respiratory effort and able to speak in complete sentences Cardio: Rate: regular rate GI: Inspection: No distended Palpation (GI): Soft to palpation and nontender Neuro: Other: grossly nonfocal Extrem: Other: LLE edema Objective Data Active Medications Acetaminophen (Acetaminophen 325 Mg Tablet) 650 mg PO Q6H PRN PRN Reason: Pain, Mild 1-3,fever,headache Last Admin: 06/06/24 05:40 Dose: 650 mg Documented By: JESUS Amiodarone HCl (Amiodarone Hcl 200 Mg Tablet) 200 mg PO DAILY [facility] Last Admin: 06/13/24 08:35 Dose: 200 mg Documented By: CAROLINA Calcium Carbonate (Calcium Carbonate 750 Mg Tab.Chew) 750 mg PO Q4H PRN PRN Reason: Heartburn Calcium Carbonate (Calcium Oyster Shell Elemental 500 Mg Tablet) 500 mg PO DAILY [facility] Last Admin: 06/13/24 08:41 Dose: 500 mg Documented By: CAROLINA Cholestyramine Resin (Cholestyramine (With Sugar) 4 Gm Powd.Pack) 4 gm PO DAILY [facility] Last Admin: 06/13/24 08:41 Dose: 4 gm Documented By: CAROLINA Dextrose (Dextrose 50 % 25 Gm/50 Ml Syringe) 25 gm IVPUSH Q15M PRN PRN Reason: per Hypoglycemia Standing Ord. Last Admin: 06/12/24 17:04 Dose: 25 gm Documented By: CAROLINA Diltiazem HCl (Diltiazem Hcl Cd 240 Mg Cap.Er.Deg) 240 mg PO DAILY [facility]; Protocol Last Admin: 06/13/24 08:35 Dose: 240 mg Documented By: CAROLINA Nutrition (Parenteral) (Parenteral Nutrition) 1,680 mls @ 70 mls/hr IV .Q24H [facility]; Protocol Stop: 06/13/24 20:59 Last Admin: 06/12/24 21:16 Dose: 70 mls/hr Documented By: SERENITY Lactic Acid (Ammonium Lactate 12 % Lotion 226 Gm Bottle) 1 appl TOPICAL DAILY PRN; Protocol PRN Reason: Dry Skin Magnesium Hydroxide (Milk Of Magnesia 30 Ml Oral.Susp) 30 ml PO DAILY PRN PRN Reason: Constipation Magnesium Oxide (Magnesium Oxide 400 Mg Tablet) 400 mg PO BIDPC [facility] Last Admin: 06/13/24 16:31 Dose: 400 mg Documented By: LIZA Melatonin (Melatonin 3 Mg Tablet) 6 mg PO BEDTIME PRN PRN Reason: Insomnia Metoprolol Tartrate (Metoprolol Tartrate 25 Mg Tablet) 25 mg PO DAILY [facility]; Protocol Last Admin: 06/13/24 08:41 Dose: 25 mg Documented By: CAROLINA Ondansetron HCl (Ondansetron Hcl 4 Mg/2 Ml Vial) 4 mg IVPUSH Q8H PRN PRN Reason: Nausea and Vomiting Pantoprazole Sodium (Pantoprazole Sodium 40 Mg/10 Ml Vial) 40 mg IVPUSH BID@0630,1630 [facility] Last Admin: 06/13/24 16:31 Dose: 40 mg Documented By: LIZA Pharmacy Consult (Consult Rx Parenteral Nutrition Ordering) 1 each MISCELLANE DAILY PRN PRN Reason: Consult order Prednisone (Prednisone 20 Mg Tablet) 40 mg PO DAILY [facility] Last Admin: 06/13/24 08:41 Dose: 40 mg Documented By: CAROLINA Sodium Chloride (0.9 % Sodium Chloride Flush 3 Ml Syringe) 3 ml IVFLUSH QSHIFT [facility] Last Admin: 06/13/24 16:30 Dose: 3 ml Documented By: LIZA Vancomycin HCl (Vancomycin Hcl 125 Mg Capsule) 125 mg PO TID [facility] Stop: 06/19/24 21:59 Last Admin: 06/13/24 16:30 Dose: 125 mg Documented By: LIZA Vancomycin HCl (Vancomycin Hcl 125 Mg Capsule) 125 mg PO BID [facility] Stop: 06/26/24 21:59 Labs 06/13/24 06:09 06/13/24 06:09 Labs: Laboratory Results - last 24 hr 06/12/24 06/12/24 06/13/24 20:21 21:41 00:19 MCV MCH MCHC RDW Plt Count MPV Absolute Nucleated RBC Nucleated RBC % (auto) Anion Gap 9 L Estim Creat Clear Calc 29.8 Estimated GFR 37 POC Glucose 95 115 Random Glucose 126 H Haptoglobin Calcium 7.5 L Phosphorus Magnesium Total Bilirubin Direct Bilirubin AST ALT Alkaline Phosphatase Lactate Dehydrogenase Total Protein Albumin Procalcitonin BILL, Polyspecific Positive BILL Work-up 06/13/24 06/13/24 06/13/24 06:09 06:13 07:16 MCV 94.4 MCH 31.6 MCHC 33.5 RDW 16.7 H Plt Count 16 L* MPV Not Reportable Absolute Nucleated RBC 0.000 Nucleated RBC % (auto) 0.0 Anion Gap 8 L Estim Creat Clear Calc 28.6 Estimated GFR 35 POC Glucose 112 104 Random Glucose 118 H Haptoglobin < 8 L Calcium 7.4 L Phosphorus 1.6 L Magnesium 2.0 Total Bilirubin 0.5 Direct Bilirubin 0.3 AST 12 ALT < 6 Alkaline Phosphatase 80 Lactate Dehydrogenase 294 H Total Protein 4.1 L Albumin 1.8 L Procalcitonin 2.65 BILL, Polyspecific Positive BILL Work-up 06/13/24 06/13/24 06/13/24 09:29 10:03 11:09 MCV MCH MCHC RDW Plt Count MPV Absolute Nucleated RBC Nucleated RBC % (auto) Anion Gap Estim Creat Clear Calc Estimated GFR POC Glucose 138 H 105 Random Glucose Haptoglobin Calcium Phosphorus Magnesium Total Bilirubin Direct Bilirubin AST ALT Alkaline Phosphatase Lactate Dehydrogenase Total Protein Albumin Procalcitonin BILL, Polyspecific NEGATIVE Positive BILL Work-up TNP 06/13/24 15:58 MCV MCH MCHC RDW Plt Count MPV Absolute Nucleated RBC Nucleated RBC % (auto) Anion Gap Estim Creat Clear Calc Estimated GFR POC Glucose 125 H Random Glucose Haptoglobin Calcium Phosphorus Magnesium Total Bilirubin Direct Bilirubin AST ALT Alkaline Phosphatase Lactate Dehydrogenase Total Protein Albumin Procalcitonin BILL, Polyspecific Positive BILL Work-up Assessment and Plan (1) ESRD (end stage renal disease) on dialysis: Status: Acute (2) Left leg DVT: Status: Acute (3) Thrombocytopenia: Status: Acute Plan This is a 78-year-old male with history of BPH, recurrent C diff colitis, hyperlipidemia, hypertension, history of alcohol use disorder, mild cognitive impairments, sick sinus syndrome s/p pacemaker placement, ESRD on HD MWF, chronic thrombocytopenia admitted for pancolitis and catheter associated UTI sob cxr ?pna d/w ID, rec to avoid abx if possible due to recurrent cdif, will check chest CT CT showing primarily edema does make some urine, will discuss with nephrology dose of IV lasix and HD tomorrow rectal bleeding overnight 06/11 s/p 2 units PRBC repeat H/H stable had EGD 03/2024, showing gastritis, severe duodenitis seen by GI, would avoid scope due to severe thrombocytopenia. Continue PPI, add Carafate Acute on chronic thrombocytopenia Platelets trending down again HIT panel negative, DIC ruled out, TTp ruled out. haptoglobin low, will check heraclio test autoimmune causes of tcp in differential. Underlying malignancy, myelodysplastic syndrome is also a possibility s/p argatroban Hold Eliquis until plt reaches 50K s/p 2 units PLT Fibrinogen 251, INR 1.1 Hematology following, recommend to start prednisone If no response to prednisone will likely need bone marrow biopsy Hypomagnesemia/hypophosphatemia/hyponatremia Likely secondary to D10 running, stopped Resolved with repletion Moderately malnourished BMI 19.8 poor appetite leading to hypoglycemia Declined NGT Nutrition following Ensure added to diet s/p PPN today, tolerating 50% of meals. requested regular diet so he has more options that he enjoys. s/p Walker catheter 06/11 as patient is requiring frequent blood draws and has very poor venous access Hypoglycemia likely secondary to poor appetite and malnutrition s/p D10 D50 for BS less than 60 Acute pancolitis secondary to cdiff Cdiff toxin and gene positive, recurrent ID>Stop zosyn. PO vanco (06/02) QID x 10 days then TID x 1 week, then daily x1 week, then MWF indefinitely given recurrence Diet as tolerated Follow CBC, cultures Concern for UTI Complicated by Right-sided nephrostomy tube. CT Right percutaneous nephrostomy catheter in place air within the collecting system on the right probably iatrogenic infectious process or fistula can not be excluded nephro tube removed History VRE UTI>Initially treated with IV linezolid, urine cx negative seen by ID, rec no abx Extensive LLE DVT No AC due to profound thombocytopenia Vascular surgery following s/p IVC filter 06/04 ESRD on HD MWF normally; TTS while in hosptial Nephrology following no heparin for flushing Recent dialysis catheter line infection Blood cultures 03/28 positive for Klebsiella. Treated with meropenem during last admission blood cx negative Paroxysmal atrial fibrillation-rate controlled Hold Eliquis as above continue diltiazem, metoprolol and amiodarone Hypertension Diltiazem and metoprolol Sick sinus syndrome Pacemaker in place incidental findings of linear foreign bodies in duodenum. had egd in March with two clips applied in the duodenum DVT prophylaxis- SCPs Full code Quality Stroke Does the patient have a stroke diagnosis?: No VTE Prior VTE?: No VTE Risk Level:: Medical - moderate - high VTE Device Contraindication: N/A - Device Ordered VTE Drug Contraindication: Treatment Not Indicated
[2024-06-13] MEDS: Furosemide 100 MG/10 ML VIAL 60 MG IVPUSH (19:26)
[2024-06-13] MEDS: Sucralfate Oral Suspension 1 GM/10 ML ORAL.SUSP PO (21:06)
--- NOTE | 2024-06-13 22:28 | P.PNNP_ITS ---
Subjective Subjective Date of Service: 06/18/24 Principal diagnosis: ESRD Interval history: Seen and examined, events noited Physical Exam 2 Vital Signs: Vital Signs: Last Vital Signs Temp 97.2 F 06/13/24 19:42 Pulse 60 06/13/24 19:42 Resp 17 06/13/24 19:42 BP 118/58 L 06/13/24 19:42 Pulse Ox 100 06/13/24 19:42 O2 Del Method Nasal Cannula 06/13/24 19:42 O2 Flow Rate 3 06/13/24 19:42 BMI result Body Mass Index 19.8 Const: General: comfortable and no acute distress O rientation/consciousness: patient oriented x3 HEENT: Ears: hearing grossly normal bilaterally Resp: Effort & Inspection: normal respiratory effort and able to speak in complete sentences Auscultation: clear to auscultation bilaterally Cardio: Rate: regular rate Rhythm: regular rhythm Heart sounds: S1 normal heart sound present and S2 normal heart sound present Bruits: no abdominal aortic bruits, no carotid bruits, no femoral bruits and no renal bruits GI: Palpation (GI): No Abdominal aortic bruit present : Other: Right groin: C/D/I, no drainage or bleeding noted. Neuro: General: patient oriented x3 Cranial nerves: Yes CN's II-XII intact bilaterally and Yes Normal hearing present Sensory Exam: No Sensory deficit (Neuro) Extrem: Other: Left lower extremity: swollen from groin to the ankle, no erythema noted. Not painful to palpation. Objective Data Labs 06/18/24 07:08 06/18/24 07:08 Labs: Laboratory Results - last 24 hr 06/13/24 06/13/24 06/13/24 00:19 06:09 06:13 WBC 14.7 H RBC 2.66 L Hgb 8.4 L Hct 25.1 L MCV 94.4 MCH 31.6 MCHC 33.5 RDW 16.7 H Plt Count 16 L* MPV Not Reportable Absolute Nucleated RBC 0.000 Nucleated RBC % (auto) 0.0 Sodium 131 L Potassium 3.8 Chloride 99 Carbon Dioxide 28 Anion Gap 8 L BUN 17 H Creatinine 1.86 H Estim Creat Clear Calc 28.6 Estimated GFR 35 POC Glucose 115 112 Random Glucose 118 H Haptoglobin < 8 L Calcium 7.4 L Phosphorus 1.6 L Magnesium 2.0 Total Bilirubin 0.5 Direct Bilirubin 0.3 AST 12 ALT < 6 Alkaline Phosphatase 80 Lactate Dehydrogenase 294 H Total Protein 4.1 L Albumin 1.8 L Procalcitonin 2.65 BILL, Polyspecific Positive BILL Work-up 06/13/24 06/13/24 06/13/24 07:16 09:29 10:03 WBC RBC Hgb Hct MCV MCH MCHC RDW Plt Count MPV Absolute Nucleated RBC Nucleated RBC % (auto) Sodium Potassium Chloride Carbon Dioxide Anion Gap BUN Creatinine Estim Creat Clear Calc Estimated GFR POC Glucose 104 138 H Random Glucose Haptoglobin Calcium Phosphorus Magnesium Total Bilirubin Direct Bilirubin AST ALT Alkaline Phosphatase Lactate Dehydrogenase Total Protein Albumin Procalcitonin BILL, Polyspecific NEGATIVE Positive BILL Work-up TNP 06/13/24 06/13/24 11:09 15:58 WBC RBC Hgb Hct MCV MCH MCHC RDW Plt Count MPV Absolute Nucleated RBC Nucleated RBC % (auto) Sodium Potassium Chloride Carbon Dioxide Anion Gap BUN Creatinine Estim Creat Clear Calc Estimated GFR POC Glucose 105 125 H Random Glucose Haptoglobin Calcium Phosphorus Magnesium Total Bilirubin Direct Bilirubin AST ALT Alkaline Phosphatase Lactate Dehydrogenase Total Protein Albumin Procalcitonin BILL, Polyspecific Positive BILL Work-up Microbiology Microbiology Results: Microbiology 06/02/24 17:46 Blood - Central Line Blood Culture - Final No growth after 5 days. 06/02/24 10:35 Blood - Venous Blood Culture - Final No growth after 5 days. 06/02/24 10:34 Blood - Venous Blood Culture - Final No growth after 5 days. 06/02/24 Unknown Urine Other - Nephrostomy Urine Culture - Final Procedures Date of Service Date of Service: 06/18/24 Assessment & Plan Assessment and plan (1) ESRD (end stage renal disease) on dialysis: Status: Acute Plan ESRD on HD m-w- at [facility] via PC Admitted with L Lower ext DVT/ Ward colitis sepsis Klebsiella bacteremia in the past s/p new dialysis tunnelled catheter- last admission CT abdomen unchanged c/w right-sided hydronephrosis, complex hemorrhagic exophytic lesion nephrogenic anemia Thrombocytopenia: cont heme eval REC Usual HD MWF bit now on TTS scheduel d/t scheduling issues TTS schedule in hospital - Can be changed to MWF when he gets discharged NO HEPARIN to prime machine OR TO LOCK PERMCATH - Will use NS - D/w HD nurse in detail Hematology f/u and TX of low PLTs; s/p IVC filterplacemnet Antibiotics as per medical team Cont ID, Heme and Urol and nutrtion consultants Avoid PIC lkine if possible HD in am and cont TTS for now Time Spent With Patient Time: Total time managing care of this patient today ____ minutes. Progress Note: Quality Stroke Does the patient have a stroke diagnosis?: No
--- NOTE | 2024-06-13 23:22 | P.PNID_ITS ---
Subjective Subjective Date of Service: 06/13/24 Critical Care Time (minutes): 15 Comment: He has had shortness of breath earlier but no fever He is not on oxygen with saturation 100 percent. He has no sputum production. He has had some increased procalcitonin. CT chest some pleural effusion and interstitial edema,no lymphadenopathy. Objective Data Labs 06/13/24 06:09 06/13/24 06:09 Labs: Laboratory Results - last 24 hr 06/13/24 06/13/24 06/13/24 00:19 06:09 06:13 WBC 14.7 H RBC 2.66 L Hgb 8.4 L Hct 25.1 L MCV 94.4 MCH 31.6 MCHC 33.5 RDW 16.7 H Plt Count 16 L* MPV Not Reportable Absolute Nucleated RBC 0.000 Nucleated RBC % (auto) 0.0 Sodium 131 L Potassium 3.8 Chloride 99 Carbon Dioxide 28 Anion Gap 8 L BUN 17 H Creatinine 1.86 H Estim Creat Clear Calc 28.6 Estimated GFR 35 POC Glucose 115 112 Random Glucose 118 H Haptoglobin < 8 L Calcium 7.4 L Phosphorus 1.6 L Magnesium 2.0 Total Bilirubin 0.5 Direct Bilirubin 0.3 AST 12 ALT < 6 Alkaline Phosphatase 80 Lactate Dehydrogenase 294 H Total Protein 4.1 L Albumin 1.8 L Procalcitonin 2.65 BILL, Polyspecific Positive BILL Work-up 06/13/24 06/13/24 06/13/24 07:16 09:29 10:03 WBC RBC Hgb Hct MCV MCH MCHC RDW Plt Count MPV Absolute Nucleated RBC Nucleated RBC % (auto) Sodium Potassium Chloride Carbon Dioxide Anion Gap BUN Creatinine Estim Creat Clear Calc Estimated GFR POC Glucose 104 138 H Random Glucose Haptoglobin Calcium Phosphorus Magnesium Total Bilirubin Direct Bilirubin AST ALT Alkaline Phosphatase Lactate Dehydrogenase Total Protein Albumin Procalcitonin BILL, Polyspecific NEGATIVE Positive BILL Work-up TNP 06/13/24 06/13/24 11:09 15:58 WBC RBC Hgb Hct MCV MCH MCHC RDW Plt Count MPV Absolute Nucleated RBC Nucleated RBC % (auto) Sodium Potassium Chloride Carbon Dioxide Anion Gap BUN Creatinine Estim Creat Clear Calc Estimated GFR POC Glucose 105 125 H Random Glucose Haptoglobin Calcium Phosphorus Magnesium Total Bilirubin Direct Bilirubin AST ALT Alkaline Phosphatase Lactate Dehydrogenase Total Protein Albumin Procalcitonin BILL, Polyspecific Positive BILL Work-up Microbiology Microbiology Results: Microbiology 06/02/24 17:46 Blood - Central Line Blood Culture - Final No growth after 5 days. 06/02/24 10:35 Blood - Venous Blood Culture - Final No growth after 5 days. 06/02/24 10:34 Blood - Venous Blood Culture - Final No growth after 5 days. 06/02/24 Unknown Urine Other - Nephrostomy Urine Culture - Final Physical Exam 2 Vital Signs: Vital Signs: Last Vital Signs Temp 97.2 F 06/13/24 19:42 Pulse 60 06/13/24 19:42 Resp 17 06/13/24 19:42 BP 118/58 L 06/13/24 19:42 Pulse Ox 100 06/13/24 19:42 O2 Del Method Nasal Cannula 06/13/24 19:42 O2 Flow Rate 3 06/13/24 19:42 BMI result Body Mass Index 19.8 Const: General: cooperative HEENT: Head: Yes normal to inspection Face and sinus: Yes normal facial exam Mouth: Normal oral and palatal mucosa present Teeth and gingiva: d entition normal Eyes: General: appearance normal, both eyes and all related structures P upils: Equal, round and reactive pupils present Resp: Effort & Inspection: normal respiratory effort Cardio: Rate: regular rate Rhythm: regular rhythm GI: Palpation (GI): Soft to palpation and nontender : General: Yes no CVA tenderness Back/Spine/Pelvis: Back: no CVA tenderness Skin: General skin exam: no rashes or lesions noted Neuro: General: moves all extremities Cranial nerves: Yes Equal, round and reactive pupils present Extrem: General: Yes normal to inspection Psych: Appearance: grossly normal Assessment and Plan Assessment and plan (1) ESRD (end stage renal disease) on dialysis: Problem details: pleural effusions no lobar infiltrate Drain effusions if appropriate. Continue po Vancomycin Status: Acute (2) Renal failure, chronic: Status: Acute Time Spent With Patient Time: Total time managing care of this patient today ____ minutes.
[2024-06-14] VITALS (11 sets, daily range): BP systolic 101–135; BP diastolic 52–62; PULSE 60–75; RESP 16–18; TEMP 36.3–36.9; O2SAT 95–99
[2024-06-14] MEDS: Pantoprazole Sodium 40 MG/10 ML VIAL IVPUSH ×2 (05:38→17:47)
[2024-06-14 05:53] LABS: Glucose, Whole Blood 100 mg/dL (60-115)
[2024-06-14 07:44] LABS: Basophils Percent Auto 0.1 % (0-2); Hemoglobin 7.5 g/dl (14.0-18.0); Lymphocytes Percent Auto 10.8 % (20-40); Mean Corpuscular Volume 93.6 fL (80.0-98.0); Monocytes Percent Auto 6.2 % (2-11); SCAN SMEAR FLAG 1
[2024-06-14 07:46] LABS: Hematocrit 21.8 % (42.0-52.0); Imm Gran Abs Auto 0.07 X10*3/uL (0.00-0.03); Imm Gran Pct Auto 0.7 % (0.0-0.4); Lymphocytes Absolute Auto 1.1 X10*3/uL (1.2-4.9); MANUAL DIFF FLAG SCAN; Mean Corpuscular HGB Conc 34.4 g/dl (31.0-36.0); Mean Corpuscular Hemoglobin 32.2 pg (27.0-33.0); Monocytes Absolute Auto 0.7 X10*3/uL (0.1-1.2); Neutrophils Absolute Auto 8.7 x10*3/uL (2.0-8.3); Neutrophils Percent Auto 82.2 % (45-73); Red Blood Count 2.33 X10*6/uL (4.60-5.80); Red Cell Distribution Width 16.4 % (11.0-16.0); White Blood Count 10.6 X10*3/uL (4.8-10.8)
[2024-06-14 08:06] LABS: PLT ABN DIST 1; Platelet Count 15 X10*3/uL (160-400)
[2024-06-14 08:17] LABS: SLIDE REVIEW VERIFIED
[2024-06-14 08:24] LABS: Albumin Level 1.9 g/dL (3.5-5.0); Anion Gap 12 (12-20); Blood Urea Nitrogen 25 mg/dL (9-16); Calcium 7.3 mg/dL (8.4-10.2); Carbon Dioxide 25 mmol/L (22-29); Chloride 99 mmol/L (96-108); Creatinine Clr Calc Pharmacy 22.3; Estimated Glomerular Filt Rate 27; Glucose Random 87 mg/dL (60-115); Magnesium 2.1 mg/dL (1.6-2.6); Phosphorus 2.8 mg/dL (2.7-4.5); Potassium 5.1 mmol/L (3.3-5.1); Sodium 131 mmol/L (135-145)
[2024-06-14 08:45] LABS: Folate 3.8 ng/mL (> or = 4.0); Vitamin B12 813 pg/mL (200-900)
[2024-06-14 12:51] LABS: Glucose, Whole Blood 40 mg/dL (60-115)
[2024-06-14] MEDS: Folic Acid 1 MG TABLET PO (12:56)
[2024-06-14] MEDS: Metoprolol Tartrate 25 MG TABLET PO (12:56)
[2024-06-14] MEDS: Cholestyramine (With Sugar) 4 GM POWD.PACK PO (12:56)
[2024-06-14] MEDS: Sucralfate Oral Suspension 1 GM/10 ML ORAL.SUSP PO ×3 (12:56→21:46)
[2024-06-14] MEDS: Amiodarone HCL 200 MG TABLET PO (12:56)
[2024-06-14] MEDS: vancomycin HCL 125 MG CAPSULE PO ×2 (12:56→21:47)
[2024-06-14] MEDS: Calcium Oyster Shell Elemental 500 MG TABLET PO (12:57)
[2024-06-14] MEDS: dilTIAZem HCL CD 240 MG CAP.ER.DEG PO (12:57)
[2024-06-14] MEDS: predniSONE 20 MG TABLET 40 MG PO (12:57)
[2024-06-14] MEDS: 0.9 % Sodium Chloride Flush 3 ML SYRINGE IVFLUSH ×3 (12:57→21:47)
[2024-06-14 13:27] LABS: Glucose, Whole Blood 90 mg/dL (60-115)
--- NOTE | 2024-06-14 14:19 | HO.PM.IMPN ---
Subjective Subjective Date of Service: 06/14/24 Interval History: seen and examined this morning follow up for thrombocytopenia, DVT seen in HD this am; history obtained with the assistance of a director client Had a long discussion this morning regarding goals of care. Patient expressed frustration with prolonged hospitalization, frequent blood draws, he describes as ?no answers ? He initially stated that he does not want any more testing and he wants us to just leave him alone, after further discussion it seems he is just frustrated but did re-iterate multiple times that he wants to live he does want to remain a full code and wants to continue to pursue treatment. we discussed having family meeting for more family support/assistance with making medical decisions but he asked that i do not disturb his family stating he does not want me to call or update any of his family members at this time His sob has resolved. he denies pain at this time Review of Systems Review of Systems: Yes all other systems are reviewed and are negative Constitutional Constitutional: Denies chills and Denies fever(s) Cardiovascular Cardiovascular: Denies chest pain and Denies dyspnea Respiratory Respiratory: Denies cough and Denies dyspnea Gastrointestinal Gastrointestinal: Denies abdominal pain, Denies nausea and Denies vomiting Physical Exam Vital Signs: Vital Signs: Last Vital Signs Temp 98 F 06/14/24 12:00 Pulse 75 06/14/24 12:00 Resp 17 06/14/24 12:00 BP 110/53 L 06/14/24 12:00 Pulse Ox 98 06/14/24 12:00 O2 Del Method Nasal Cannula 06/14/24 12:00 O2 Flow Rate 1 06/14/24 12:00 BMI result Body Mass Index 19.8 Const: Other: frail, ill apperring General: cooperative, comfortable, alert and awake Orientation/consciousness: oriented to person and oriented to place Chest: Other: walker right chest Resp: Effort & Inspection: normal respiratory effort, able to speak in complete sentences, no respiratory distress and no use of accessory muscles Cardio: Rate: regular rate GI: Inspection: No distended Palpation (GI): Soft to palpation and nontender Neuro: Other: grossly nonfocal General: oriented to person and oriented to place Extrem: Other: LLE edema Objective Data Active Medications Acetaminophen (Acetaminophen 325 Mg Tablet) 650 mg PO Q6H PRN PRN Reason: Pain, Mild 1-3,fever,headache Last Admin: 06/06/24 05:40 Dose: 650 mg Documented By: JESUS Amiodarone HCl (Amiodarone Hcl 200 Mg Tablet) 200 mg PO DAILY [facility] Last Admin: 06/14/24 12:56 Dose: 200 mg Documented By: YOU Calcium Carbonate (Calcium Carbonate 750 Mg Tab.Chew) 750 mg PO Q4H PRN PRN Reason: Heartburn Calcium Carbonate (Calcium Oyster Shell Elemental 500 Mg Tablet) 500 mg PO DAILY [facility] Last Admin: 06/14/24 12:57 Dose: 500 mg Documented By: YOU Cholestyramine Resin (Cholestyramine (With Sugar) 4 Gm Powd.Pack) 4 gm PO DAILY [facility] Last Admin: 06/14/24 12:56 Dose: 4 gm Documented By: YOU Dextrose (Dextrose 50 % 25 Gm/50 Ml Syringe) 25 gm IVPUSH Q15M PRN PRN Reason: per Hypoglycemia Standing Ord. Last Admin: 06/12/24 17:04 Dose: 25 gm Documented By: CAROLINA Diltiazem HCl (Diltiazem Hcl Cd 240 Mg Cap.Er.Deg) 240 mg PO DAILY [facility]; Protocol Last Admin: 06/14/24 12:57 Dose: 240 mg Documented By: YOU Folic Acid (Folic Acid 1 Mg Tablet) 1 mg PO DAILY [facility] Last Admin: 06/14/24 12:56 Dose: 1 mg Documented By: YOU Lactic Acid (Ammonium Lactate 12 % Lotion 226 Gm Bottle) 1 appl TOPICAL DAILY PRN; Protocol PRN Reason: Dry Skin Magnesium Hydroxide (Milk Of Magnesia 30 Ml Oral.Susp) 30 ml PO DAILY PRN PRN Reason: Constipation Magnesium Oxide (Magnesium Oxide 400 Mg Tablet) 400 mg PO BIDPC [facility] Last Admin: 06/14/24 12:57 Dose: Not Given Documented By: YOU Non-Admin Reason: Off unit: Dialysis Melatonin (Melatonin 3 Mg Tablet) 6 mg PO BEDTIME PRN PRN Reason: Insomnia Metoprolol Tartrate (Metoprolol Tartrate 25 Mg Tablet) 25 mg PO DAILY [facility]; Protocol Last Admin: 06/14/24 12:56 Dose: 25 mg Documented By: YOU Ondansetron HCl (Ondansetron Hcl 4 Mg/2 Ml Vial) 4 mg IVPUSH Q8H PRN PRN Reason: Nausea and Vomiting Pantoprazole Sodium (Pantoprazole Sodium 40 Mg/10 Ml Vial) 40 mg IVPUSH BID@0630,1630 [facility] Last Admin: 06/14/24 05:38 Dose: 40 mg Documented By: SIENNA Pharmacy Consult (Consult Rx Parenteral Nutrition Ordering) 1 each MISCELLANE DAILY PRN PRN Reason: Consult order Prednisone (Prednisone 20 Mg Tablet) 40 mg PO DAILY [facility] Last Admin: 06/14/24 12:57 Dose: 40 mg Documented By: YOU Sodium Chloride (0.9 % Sodium Chloride Flush 3 Ml Syringe) 3 ml IVFLUSH QSHIFT [facility] Last Admin: 06/14/24 12:57 Dose: 3 ml Documented By: YOU Sucralfate (Sucralfate Oral Suspension 1 Gm/10 Ml Oral.Susp) 1 gm PO QIDACHS [facility] Last Admin: 06/14/24 12:56 Dose: 1 gm Documented By: YOU Vancomycin HCl (Vancomycin Hcl 125 Mg Capsule) 125 mg PO TID [facility] Stop: 06/19/24 21:59 Last Admin: 06/14/24 13:48 Dose: Not Given Documented By: YOU Non-Admin Reason: 9AM DOSE GIVEN LATE DUE TO DIALYSIS Vancomycin HCl (Vancomycin Hcl 125 Mg Capsule) 125 mg PO BID [facility] Stop: 06/26/24 21:59 Labs 06/14/24 07:00 06/14/24 07:26 Labs: Laboratory Results - last 24 hr 06/13/24 06/14/24 06/14/24 15:58 05:49 07:00 MCV 93.6 MCH 32.2 MCHC 34.4 RDW 16.4 H Plt Count 15 L* MPV Not Reportable Immature Gran % (Auto) 0.7 H Neut % (Auto) 82.2 H Lymph % (Auto) 10.8 L [place] % (Auto) 6.2 Eos % (Auto) 0.0 Baso % (Auto) 0.1 Lymph # (Auto) 1.1 L [place] # (Auto) 0.7 Eos # (Auto) 0.0 Baso # (Auto) 0.0 Abs Immat Gran (auto) 0.07 H Absolute Neuts (auto) 8.7 H Absolute Nucleated RBC 0.000 Nucleated RBC % (auto) 0.0 Smear Tech's Comments VERIFIED Hold Purple Top SEE NOTE Anion Gap Estim Creat Clear Calc Estimated GFR POC Glucose 125 H 100 Random Glucose Calcium Phosphorus Magnesium Albumin Vitamin B12 Folate Blood Type Antibody Screen 06/14/24 06/14/24 06/14/24 07:26 12:46 12:55 MCV MCH MCHC RDW Plt Count MPV Immature Gran % (Auto) Neut % (Auto) Lymph % (Auto) [place] % (Auto) Eos % (Auto) Baso % (Auto) Lymph # (Auto) [place] # (Auto) Eos # (Auto) Baso # (Auto) Abs Immat Gran (auto) Absolute Neuts (auto) Absolute Nucleated RBC Nucleated RBC % (auto) Smear Tech's Comments Hold Purple Top Anion Gap 12 Estim Creat Clear Calc 22.3 Estimated GFR 27 POC Glucose 40 L* Random Glucose 87 Calcium 7.3 L Phosphorus 2.8 Magnesium 2.1 Albumin 1.9 L Vitamin B12 813 Folate 3.8 L Blood Type A Positive Antibody Screen NEGATIVE 06/14/24 13:21 MCV MCH MCHC RDW Plt Count MPV Immature Gran % (Auto) Neut % (Auto) Lymph % (Auto) [place] % (Auto) Eos % (Auto) Baso % (Auto) Lymph # (Auto) [place] # (Auto) Eos # (Auto) Baso # (Auto) Abs Immat Gran (auto) Absolute Neuts (auto) Absolute Nucleated RBC Nucleated RBC % (auto) Smear Tech's Comments Hold Purple Top Anion Gap Estim Creat Clear Calc Estimated GFR POC Glucose 90 Random Glucose Calcium Phosphorus Magnesium Albumin Vitamin B12 Folate Blood Type Antibody Screen Microbiology Microbiology Results: Microbiology 06/13/24 11:04 Blood Culture - Preliminary Blood - Venous No growth after 24 hours. 06/13/24 10:03 Blood Culture - Preliminary Blood - Venous No growth after 24 hours. Assessment and Plan (1) ESRD (end stage renal disease) on dialysis: Status: Acute (2) Left leg DVT: Status: Acute (3) Heme positive stool: Status: Acute (4) Thrombocytopenia: Status: Acute Plan This is a 78-year-old male with history of BPH, recurrent C diff colitis, hyperlipidemia, hypertension, history of alcohol use disorder, mild cognitive impairments, sick sinus syndrome s/p pacemaker placement, ESRD on HD MWF, chronic thrombocytopenia admitted for pancolitis and catheter associated UTI sob cxr ?pna d/w ID, rec to avoid abx if possible due to recurrent cdif, will check chest CT CT showing primarily edema does make some urine, received 1 dose of IV Lasix; had dialysis this morning Shortness of breath resolved rectal bleeding overnight 06/11 s/p 2 units PRBC. no further episodes of bleeding had EGD 03/2024, showing gastritis, severe duodenitis seen by GI, would avoid scope at this time due to severe thrombocytopenia. Continue PPI, add Carafate Acute on chronic thrombocytopenia Platelets trending down again HIT panel negative, DIC ruled out, TTP ruled out. haptoglobin low, LDH slightly high; LFTs normal, heraclio test normal Hold Eliquis until plt reaches 50K s/p 2 units PLT, will transfuse additional unit of platelets Hematology following started on prednisone 06/13 - If no response to prednisone will likely need bone marrow biopsy Hypomagnesemia/hypophosphatemia/hyponatremia Likely secondary to D10 running, stopped Resolved with repletion Moderately malnourished BMI 19.8. poor appetite leading to hypoglycemia. s/p PPN, s/p D5W drip. Nutrition following Ensure added to diet requested regular diet so he has more options that he enjoys and now appetite improving s/p Walker catheter 06/11 as patient is requiring frequent blood draws and has very poor venous access Hypoglycemia likely secondary to poor appetite and malnutrition. Episode of hypoglycemia this morning due to not eating breakfast as he was at dialysis. s/p D10 D50 for BS less than 60 Acute pancolitis secondary to cdiff Cdiff toxin and gene positive, recurrent ID>Stop zosyn. PO vanco (06/02) QID x 10 days then TID x 1 week, then daily x1 week, then MWF indefinitely given recurrence Diet as tolerated Concern for UTI Complicated by Right-sided nephrostomy tube. CT Right percutaneous nephrostomy catheter in place air within the collecting system on the right probably iatrogenic infectious process or fistula can not be excluded nephro tube removed History VRE UTI>Initially treated with IV linezolid, urine cx negative seen by ID, rec no abx Extensive LLE DVT No AC due to profound thombocytopenia seen by Vascular surgery - s/p IVC filter 06/04 ESRD on HD MWF normally; TTS while in hospital Nephrology following no heparin for flushing Recent dialysis catheter line infection Blood cultures 03/28 positive for Klebsiella. Treated with meropenem during last admission blood cx negative Paroxysmal atrial fibrillation-rate controlled Hold Eliquis as above continue diltiazem, metoprolol and amiodarone Hypertension Diltiazem and metoprolol Sick sinus syndrome Pacemaker in place incidental findings of linear foreign bodies in duodenum. had egd in March with two clips applied in the duodenum DVT prophylaxis- SCPs Full code Requires ongoing inpatient stay for management of severe thrombocytopenia Quality Stroke Does the patient have a stroke diagnosis?: No VTE Prior VTE?: No VTE Risk Level:: Medical - moderate - high VTE Device Contraindication: N/A - Device Ordered VTE Drug Contraindication: Treatment Not Indicated
[2024-06-14 16:27] LABS: Glucose, Whole Blood 94 mg/dL (60-115)
[2024-06-14] MEDS: Magnesium Oxide 400 MG TABLET PO (17:46)
[2024-06-14 20:39] LABS: Glucose, Whole Blood 120 mg/dL (60-115)
[2024-06-15] VITALS (9 sets, daily range): BP systolic 108–119; BP diastolic 54–60; PULSE 60–62; RESP 14–18; TEMP 36.6–37; O2SAT 96–100
[2024-06-15] MEDS: Pantoprazole Sodium 40 MG/10 ML VIAL IVPUSH ×2 (06:35→16:24)
[2024-06-15] MEDS: Sucralfate Oral Suspension 1 GM/10 ML ORAL.SUSP PO ×4 (06:35→20:17)
[2024-06-15 07:18] LABS: Glucose, Whole Blood 90 mg/dL (60-115)
[2024-06-15 07:20] LABS: MANUAL DIFF FLAG NO
[2024-06-15 07:36] LABS: Basophils Percent Auto 0.1 % (0-2); Hematocrit 23.4 % (42.0-52.0); Hemoglobin 7.8 g/dl (14.0-18.0); Imm Gran Pct Auto 0.9 % (0.0-0.4); Lymphocytes Absolute Auto 0.9 X10*3/uL (1.2-4.9); Lymphocytes Percent Auto 7.8 % (20-40); Mean Corpuscular HGB Conc 33.3 g/dl (31.0-36.0); Mean Corpuscular Hemoglobin 31.3 pg (27.0-33.0); Mean Platelet Volume 11.3 fL (9.4-12.4); Monocytes Absolute Auto 0.7 X10*3/uL (0.1-1.2); Monocytes Percent Auto 6.5 % (2-11); Neutrophils Absolute Auto 9.5 x10*3/uL (2.0-8.3); Neutrophils Percent Auto 84.7 % (45-73); Red Blood Count 2.49 X10*6/uL (4.60-5.80); Red Cell Distribution Width 15.9 % (11.0-16.0); White Blood Count 11.2 X10*3/uL (4.8-10.8)
[2024-06-15 07:37] LABS: Platelet Count 34 X10*3/uL (160-400)
[2024-06-15 07:51] LABS: Anion Gap 8 (12-20); Blood Urea Nitrogen 20 mg/dL (9-16); Carbon Dioxide 29 mmol/L (22-29); Chloride 103 mmol/L (96-108); Creatinine Clr Calc Pharmacy 26.6; Estimated Glomerular Filt Rate 33; Glucose Random 89 mg/dL (60-115); Potassium 4.4 mmol/L (3.3-5.1); Sodium 136 mmol/L (135-145)
[2024-06-15] MEDS: Metoprolol Tartrate 25 MG TABLET PO (10:02)
[2024-06-15] MEDS: Calcium Oyster Shell Elemental 500 MG TABLET PO (10:02)
[2024-06-15] MEDS: 0.9 % Sodium Chloride Flush 3 ML SYRINGE IVFLUSH ×3 (10:02→20:19)
[2024-06-15] MEDS: Amiodarone HCL 200 MG TABLET PO (10:02)
[2024-06-15] MEDS: predniSONE 20 MG TABLET 40 MG PO (10:02)
[2024-06-15] MEDS: Ascorbic Acid 250 MG TABLET PO (10:02)
[2024-06-15] MEDS: Folic Acid 1 MG TABLET PO (10:02)
[2024-06-15] MEDS: Cholestyramine (With Sugar) 4 GM POWD.PACK PO (10:03)
[2024-06-15] MEDS: Magnesium Oxide 400 MG TABLET PO ×2 (10:03→16:24)
[2024-06-15] MEDS: vancomycin HCL 125 MG CAPSULE PO ×3 (10:03→20:19)
[2024-06-15] MEDS: dilTIAZem HCL CD 240 MG CAP.ER.DEG PO (10:03)
--- NOTE | 2024-06-15 11:07 | P.PNIM_ITS ---
Subjective Subjective Date of Service: 06/15/24 Interval History: Seen and examined this morning Follow-up for DVT, thrombocytopenia History obtained with the assistance of a replenisher Awake, alert, in no acute distress. In better spirits today as compared to yesterday. Has no specific complaints. no sob Constitutional Constitutional: Denies chills Cardiovascular Cardiovascular: Denies chest pain, Denies palpitations and Denies dyspnea Respiratory Respiratory: Denies dyspnea Endocrine Endocrine: Denies palpitations Physical Exam 2 Vital Signs: Vital Signs: Last Vital Signs Temp 98 F 06/15/24 07:08 Pulse 61 06/15/24 10:03 Resp 16 06/15/24 07:08 BP 119/60 06/15/24 10:03 Pulse Ox 100 06/15/24 07:08 O2 Del Method Nasal Cannula 06/15/24 07:08 O2 Flow Rate 1 06/15/24 07:08 BMI result Body Mass Index 19.8 Const: Other: frail, ill apperring General: cooperative, comfortable, alert and awake O rientation/consciousness: patient oriented x3 Chest: Other: walker right chest Resp: Other: diminished breath sounds, increased wob Effort & Inspection: normal respiratory effort, able to speak in complete sentences, no respiratory distress and no use of accessory muscles Cardio: Rate: regular rate GI: Inspection: No distended Palpation (GI): Soft to palpation and nontender Neuro: Other: grossly nonfocal General: patient oriented x3 Extrem: Other: LLE edema Objective Data Active Medications Acetaminophen (Acetaminophen 325 Mg Tablet) 650 mg PO Q6H PRN PRN Reason: Pain, Mild 1-3,fever,headache Last Admin: 06/06/24 05:40 Dose: 650 mg Documented By: JESUS Amiodarone HCl (Amiodarone Hcl 200 Mg Tablet) 200 mg PO DAILY [facility] Last Admin: 06/15/24 10:02 Dose: 200 mg Documented By: NELA Ascorbic Acid (Ascorbic Acid 250 Mg Tablet) 250 mg PO DAILY [facility] Last Admin: 06/15/24 10:02 Dose: 250 mg Documented By: NELA Calcium Carbonate (Calcium Carbonate 750 Mg Tab.Chew) 750 mg PO Q4H PRN PRN Reason: Heartburn Calcium Carbonate (Calcium Oyster Shell Elemental 500 Mg Tablet) 500 mg PO DAILY [facility] Last Admin: 06/15/24 10:02 Dose: 500 mg Documented By: NELA Cholestyramine Resin (Cholestyramine (With Sugar) 4 Gm Powd.Pack) 4 gm PO DAILY [facility] Last Admin: 06/15/24 10:03 Dose: 4 gm Documented By: NELA Dextrose (Dextrose 50 % 25 Gm/50 Ml Syringe) 25 gm IVPUSH Q15M PRN PRN Reason: per Hypoglycemia Standing Ord. Last Admin: 06/12/24 17:04 Dose: 25 gm Documented By: CAROLINA Diltiazem HCl (Diltiazem Hcl Cd 240 Mg Cap.Er.Deg) 240 mg PO DAILY [facility]; Protocol Last Admin: 06/15/24 10:03 Dose: 240 mg Documented By: NELA Folic Acid (Folic Acid 1 Mg Tablet) 1 mg PO DAILY [facility] Last Admin: 06/15/24 10:02 Dose: 1 mg Documented By: NELA Lactic Acid (Ammonium Lactate 12 % Lotion 226 Gm Bottle) 1 appl TOPICAL DAILY PRN; Protocol PRN Reason: Dry Skin Magnesium Hydroxide (Milk Of Magnesia 30 Ml Oral.Susp) 30 ml PO DAILY PRN PRN Reason: Constipation Magnesium Oxide (Magnesium Oxide 400 Mg Tablet) 400 mg PO BIDPC [facility] Last Admin: 06/15/24 10:03 Dose: 400 mg Documented By: NELA Melatonin (Melatonin 3 Mg Tablet) 6 mg PO BEDTIME PRN PRN Reason: Insomnia Metoprolol Tartrate (Metoprolol Tartrate 25 Mg Tablet) 25 mg PO DAILY [facility]; Protocol Last Admin: 06/15/24 10:02 Dose: 25 mg Documented By: NELA Ondansetron HCl (Ondansetron Hcl 4 Mg/2 Ml Vial) 4 mg IVPUSH Q8H PRN PRN Reason: Nausea and Vomiting Pantoprazole Sodium (Pantoprazole Sodium 40 Mg/10 Ml Vial) 40 mg IVPUSH BID@0630,1630 [facility] Last Admin: 06/15/24 06:35 Dose: 40 mg Documented By: JAKOB Pharmacy Consult (Consult Rx Parenteral Nutrition Ordering) 1 each MISCELLANE DAILY PRN PRN Reason: Consult order Prednisone (Prednisone 20 Mg Tablet) 40 mg PO DAILY [facility] Last Admin: 06/15/24 10:02 Dose: 40 mg Documented By: NELA Sodium Chloride (0.9 % Sodium Chloride Flush 3 Ml Syringe) 3 ml IVFLUSH QSHIFT [facility] Last Admin: 06/15/24 10:02 Dose: 3 ml Documented By: NELA Sucralfate (Sucralfate Oral Suspension 1 Gm/10 Ml Oral.Susp) 1 gm PO QIDACHS [facility] Last Admin: 06/15/24 06:35 Dose: 1 gm Documented By: JAKOB Vancomycin HCl (Vancomycin Hcl 125 Mg Capsule) 125 mg PO TID [facility] Stop: 06/19/24 21:59 Last Admin: 06/15/24 10:03 Dose: 125 mg Documented By: NELA Vancomycin HCl (Vancomycin Hcl 125 Mg Capsule) 125 mg PO BID [facility] Stop: 06/26/24 21:59 Labs 06/15/24 07:11 06/15/24 07:11 Labs: Laboratory Results - last 24 hr 06/14/24 06/14/24 06/14/24 12:46 12:55 13:21 MCV MCH MCHC RDW Plt Count MPV Immature Gran % (Auto) Neut % (Auto) Lymph % (Auto) [place] % (Auto) Eos % (Auto) Baso % (Auto) Lymph # (Auto) [place] # (Auto) Eos # (Auto) Baso # (Auto) Abs Immat Gran (auto) Absolute Neuts (auto) Absolute Nucleated RBC Nucleated RBC % (auto) Anion Gap Estim Creat Clear Calc Estimated GFR POC Glucose 40 L* 90 Random Glucose Calcium Blood Type A Positive Antibody Screen NEGATIVE Crossmatch See Detail 06/14/24 06/14/24 06/15/24 16:23 20:36 07:11 MCV 94.0 MCH 31.3 MCHC 33.3 RDW 15.9 Plt Count 34 L D MPV 11.3 Immature Gran % (Auto) 0.9 H Neut % (Auto) 84.7 H Lymph % (Auto) 7.8 L [place] % (Auto) 6.5 Eos % (Auto) 0.0 Baso % (Auto) 0.1 Lymph # (Auto) 0.9 L [place] # (Auto) 0.7 Eos # (Auto) 0.0 Baso # (Auto) 0.0 Abs Immat Gran (auto) 0.10 H Absolute Neuts (auto) 9.5 H Absolute Nucleated RBC 0.000 Nucleated RBC % (auto) 0.0 Anion Gap 8 L Estim Creat Clear Calc 26.6 Estimated GFR 33 POC Glucose 94 120 H Random Glucose 89 Calcium 7.0 L Blood Type Antibody Screen Crossmatch 06/15/24 07:13 MCV MCH MCHC RDW Plt Count MPV Immature Gran % (Auto) Neut % (Auto) Lymph % (Auto) [place] % (Auto) Eos % (Auto) Baso % (Auto) Lymph # (Auto) [place] # (Auto) Eos # (Auto) Baso # (Auto) Abs Immat Gran (auto) Absolute Neuts (auto) Absolute Nucleated RBC Nucleated RBC % (auto) Anion Gap Estim Creat Clear Calc Estimated GFR POC Glucose 90 Random Glucose Calcium Blood Type Antibody Screen Crossmatch Microbiology Microbiology Results: Microbiology 06/13/24 11:04 Blood Culture - Preliminary Blood - Venous No growth after 24 hours. 06/13/24 10:03 Blood Culture - Preliminary Blood - Venous No growth after 24 hours. Assessment and Plan (1) ESRD (end stage renal disease) on dialysis: Status: Acute (2) Left leg DVT: Status: Acute Plan This is a 78-year-old male with history of BPH, recurrent C diff colitis, hyperlipidemia, hypertension, history of alcohol use disorder, mild cognitive impairments, sick sinus syndrome s/p pacemaker placement, ESRD on HD MWF, chronic thrombocytopenia admitted for pancolitis and catheter associated UTI sob cxr ?pna d/w ID, rec to avoid abx if possible due to recurrent cdif, will check chest CT ->CT showing primarily edema does make some urine, received 1 dose of IV Lasix and had regularly scheduled HD on Shortness of breath resolved acute GI bleed overnight 06/11 s/p 2 units PRBC. no further episodes of bleeding had EGD 03/2024, showing gastritis, severe duodenitis seen by GI, would avoid scope at this time due to severe thrombocytopenia. Continue PPI, added Carafate Acute on chronic thrombocytopenia HIT panel negative, DIC ruled out, TTP ruled out. haptoglobin low, LDH slightly high; LFTs normal, heracloi test normal Hold Eliquis until plt reaches 50K s/p 2 units PLT; 3rd unit transfused on 06/14 started on prednisone 06/13 - If no response to prednisone will likely need bone marrow biopsy platlets up to 34 today hematology following chronic anemia H/H remains low s/p blood transfusion 06/14 follow CBC Hypomagnesemia/hypophosphatemia/hyponatremia Likely secondary to D10 running, stopped Resolved with repletion Moderately malnourished BMI 19.8. poor appetite leading to hypoglycemia. s/p PPN, s/p D5W drip. Nutrition following Ensure added to diet requested regular diet so he has more options that he enjoys and now appetite improving s/p Walker catheter 06/11 as patient is requiring frequent blood draws and has very poor venous access Hypoglycemia likely secondary to poor appetite and malnutrition. Episode of hypoglycemia 06/14 due to not eating breakfast as he was at dialysis. other cast[place] sugars have been stable, better appetite s/p D10 D50 for BS less than 60 Acute pancolitis secondary to cdiff Cdiff toxin and gene positive, recurrent ID>Stop zosyn. PO vanco (06/02) QID x 10 days then TID x 1 week, then daily x1 week, then MWF indefinitely given recurrence Concern for UTI Complicated by Right-sided nephrostomy tube. CT Right percutaneous nephrostomy catheter in place air within the collecting system on the right probably iatrogenic infectious process or fistula can not be excluded nephro tube removed History VRE UTI>Initially treated with IV linezolid, urine cx negative seen by ID, rec no abx Extensive LLE DVT No AC due to profound thombocytopenia seen by Vascular surgery - s/p IVC filter 06/04 ESRD on HD MWF normally; TTS while in hospital Nephrology following no heparin for flushing Recent dialysis catheter line infection Blood cultures 03/28 positive for Klebsiella. Treated with meropenem during last admission blood cx negative Paroxysmal atrial fibrillation-rate controlled Hold Eliquis as above continue diltiazem, metoprolol and amiodarone Hypertension Diltiazem and metoprolol Sick sinus syndrome Pacemaker in place incidental findings of linear foreign bodies in duodenum. had egd in March with two clips applied in the duodenum DVT prophylaxis- SCPs Full code Requires ongoing inpatient stay for management of severe thrombocytopenia Quality Stroke Does the patient have a stroke diagnosis?: No VTE Prior VTE?: No VTE Risk Level:: Medical - moderate - high VTE Device Contraindication: N/A - Device Ordered VTE Drug Contraindication: Treatment Not Indicated
[2024-06-15 11:21] LABS: Glucose, Whole Blood 82 mg/dL (60-115)
[2024-06-15 17:38] LABS: Glucose, Whole Blood 117 mg/dL (60-115)
[2024-06-15 20:40] LABS: Glucose, Whole Blood 130 mg/dL (60-115)
[2024-06-16] VITALS (8 sets, daily range): BP systolic 123–137; BP diastolic 56–66; PULSE 60–70; RESP 16–20; TEMP 36.9–37.2; O2SAT 94–98
[2024-06-16] MEDS: Pantoprazole Sodium 40 MG/10 ML VIAL IVPUSH (06:08)
[2024-06-16 06:34] LABS: MANUAL DIFF FLAG NO
[2024-06-16 06:56] LABS: Anion Gap 8 (12-20); Blood Urea Nitrogen 30 mg/dL (9-16); Calcium 7.1 mg/dL (8.4-10.2); Carbon Dioxide 29 mmol/L (22-29); Chloride 103 mmol/L (96-108); Creatinine Clr Calc Pharmacy 18.6; Estimated Glomerular Filt Rate 22; Glucose Random 92 mg/dL (60-115); Potassium 5.2 mmol/L (3.3-5.1); Sodium 135 mmol/L (135-145)
[2024-06-16 07:07] LABS: Basophils Percent Auto 0.2 % (0-2); Hematocrit 24.7 % (42.0-52.0); Hemoglobin 8.1 g/dl (14.0-18.0); Imm Gran Abs Auto 0.21 X10*3/uL (0.00-0.03); Imm Gran Pct Auto 1.6 % (0.0-0.4); Lymphocytes Percent Auto 7.5 % (20-40); Mean Corpuscular HGB Conc 32.8 g/dl (31.0-36.0); Mean Corpuscular Hemoglobin 31.3 pg (27.0-33.0); Mean Corpuscular Volume 95.4 fL (80.0-98.0); Mean Platelet Volume 12.9 fL (9.4-12.4); Monocytes Absolute Auto 0.8 X10*3/uL (0.1-1.2); Monocytes Percent Auto 6.3 % (2-11); Neutrophils Absolute Auto 11.2 x10*3/uL (2.0-8.3); Neutrophils Percent Auto 84.4 % (45-73); Red Blood Count 2.59 X10*6/uL (4.60-5.80); Red Cell Distribution Width 16.1 % (11.0-16.0); White Blood Count 13.2 X10*3/uL (4.8-10.8)
[2024-06-16 07:12] LABS: Platelet Count 45 X10*3/uL (160-400)
[2024-06-16 07:13] LABS: Glucose, Whole Blood 80 mg/dL (60-115)
[2024-06-16] MEDS: predniSONE 20 MG TABLET 40 MG PO (10:32)
[2024-06-16] MEDS: dilTIAZem HCL CD 240 MG CAP.ER.DEG PO (10:32)
[2024-06-16] MEDS: Ascorbic Acid 250 MG TABLET PO (10:32)
[2024-06-16] MEDS: Magnesium Oxide 400 MG TABLET PO ×2 (10:32→18:41)
[2024-06-16] MEDS: Calcium Oyster Shell Elemental 500 MG TABLET PO (10:32)
[2024-06-16] MEDS: Folic Acid 1 MG TABLET PO (10:32)
[2024-06-16] MEDS: Metoprolol Tartrate 25 MG TABLET PO (10:32)
[2024-06-16] MEDS: Amiodarone HCL 200 MG TABLET PO (10:33)
[2024-06-16] MEDS: 0.9 % Sodium Chloride Flush 3 ML SYRINGE IVFLUSH ×3 (10:33→20:16)
[2024-06-16] MEDS: Sucralfate Oral Suspension 1 GM/10 ML ORAL.SUSP PO ×3 (10:33→20:16)
[2024-06-16] MEDS: vancomycin HCL 125 MG CAPSULE PO ×3 (10:33→20:16)
--- NOTE | 2024-06-16 10:45 | HO.PM.IMPN ---
Subjective Subjective Date of Service: 06/16/24 Interval History: Follow-up for DVT, thrombocytopenia Has no specific complaints. no sob Constitutional Constitutional: Denies chills Cardiovascular Cardiovascular: Denies chest pain, Denies palpitations and Denies dyspnea Respiratory Respiratory: Denies dyspnea Endocrine Endocrine: Denies palpitations Physical Exam Vital Signs: Vital Signs: Last Vital Signs Temp 98.9 F 06/16/24 07:40 Pulse 60 06/16/24 10:32 Resp 16 06/16/24 07:40 BP 137/66 06/16/24 10:32 Pulse Ox 97 06/16/24 07:40 O2 Del Method Nasal Cannula 06/16/24 07:40 O2 Flow Rate 2 06/16/24 07:40 BMI result Body Mass Index 19.8 Appearing in no acute distress lung sounds are clear to auscultation heart regular rate rhythm, clear S1, S2 positive bowel sounds, abdomen is soft, nontender neuro patient is alert x3, no focal deficits Objective Data Active Medications Acetaminophen (Acetaminophen 325 Mg Tablet) 650 mg PO Q6H PRN PRN Reason: Pain, Mild 1-3,fever,headache Last Admin: 06/06/24 05:40 Dose: 650 mg Documented By: JESUS Amiodarone HCl (Amiodarone Hcl 200 Mg Tablet) 200 mg PO DAILY [facility] Last Admin: 06/16/24 10:33 Dose: 200 mg Documented By: NELA Ascorbic Acid (Ascorbic Acid 250 Mg Tablet) 250 mg PO DAILY [facility] Last Admin: 06/16/24 10:32 Dose: 250 mg Documented By: NELA Calcium Carbonate (Calcium Carbonate 750 Mg Tab.Chew) 750 mg PO Q4H PRN PRN Reason: Heartburn Calcium Carbonate (Calcium Oyster Shell Elemental 500 Mg Tablet) 500 mg PO DAILY [facility] Last Admin: 06/16/24 10:32 Dose: 500 mg Documented By: NELA Cholestyramine Resin (Cholestyramine (With Sugar) 4 Gm Powd.Pack) 4 gm PO DAILY [facility] Last Admin: 06/16/24 10:34 Dose: Not Given Documented By: NELA Non-Admin Reason: Patient Refused Dextrose (Dextrose 50 % 25 Gm/50 Ml Syringe) 25 gm IVPUSH Q15M PRN PRN Reason: per Hypoglycemia Standing Ord. Last Admin: 06/12/24 17:04 Dose: 25 gm Documented By: CAROLINA Diltiazem HCl (Diltiazem Hcl Cd 240 Mg Cap.Er.Deg) 240 mg PO DAILY [facility]; Protocol Last Admin: 06/16/24 10:32 Dose: 240 mg Documented By: NELA Folic Acid (Folic Acid 1 Mg Tablet) 1 mg PO DAILY [facility] Last Admin: 06/16/24 10:32 Dose: 1 mg Documented By: NELA Lactic Acid (Ammonium Lactate 12 % Lotion 226 Gm Bottle) 1 appl TOPICAL DAILY PRN; Protocol PRN Reason: Dry Skin Magnesium Hydroxide (Milk Of Magnesia 30 Ml Oral.Susp) 30 ml PO DAILY PRN PRN Reason: Constipation Magnesium Oxide (Magnesium Oxide 400 Mg Tablet) 400 mg PO BIDPC [facility] Last Admin: 06/16/24 10:32 Dose: 400 mg Documented By: NELA Melatonin (Melatonin 3 Mg Tablet) 6 mg PO BEDTIME PRN PRN Reason: Insomnia Metoprolol Tartrate (Metoprolol Tartrate 25 Mg Tablet) 25 mg PO DAILY [facility]; Protocol Last Admin: 06/16/24 10:32 Dose: 25 mg Documented By: NELA Ondansetron HCl (Ondansetron Hcl 4 Mg/2 Ml Vial) 4 mg IVPUSH Q8H PRN PRN Reason: Nausea and Vomiting Pharmacy Consult (Consult Rx Parenteral Nutrition Ordering) 1 each MISCELLANE DAILY PRN PRN Reason: Consult order Prednisone (Prednisone 20 Mg Tablet) 40 mg PO DAILY [facility] Last Admin: 06/16/24 10:32 Dose: 40 mg Documented By: NELA Sodium Chloride (0.9 % Sodium Chloride Flush 3 Ml Syringe) 3 ml IVFLUSH QSHIFT [facility] Last Admin: 06/16/24 10:33 Dose: 3 ml Documented By: NELA Sucralfate (Sucralfate Oral Suspension 1 Gm/10 Ml Oral.Susp) 1 gm PO QIDACHS [facility] Last Admin: 06/16/24 10:33 Dose: 1 gm Documented By: NELA Vancomycin HCl (Vancomycin Hcl 125 Mg Capsule) 125 mg PO TID [facility] Stop: 06/19/24 21:59 Last Admin: 06/16/24 10:33 Dose: 125 mg Documented By: NELA Vancomycin HCl (Vancomycin Hcl 125 Mg Capsule) 125 mg PO BID [facility] Stop: 06/26/24 21:59 Labs 06/16/24 06:19 06/16/24 06:19 Labs: Laboratory Results - last 24 hr 06/15/24 06/15/24 06/15/24 11:05 16:31 20:36 MCV MCH MCHC RDW Plt Count MPV Immature Gran % (Auto) Neut % (Auto) Lymph % (Auto) [place] % (Auto) Eos % (Auto) Baso % (Auto) Lymph # (Auto) [place] # (Auto) Eos # (Auto) Baso # (Auto) Abs Immat Gran (auto) Absolute Neuts (auto) Absolute Nucleated RBC Nucleated RBC % (auto) Anion Gap Estim Creat Clear Calc Estimated GFR POC Glucose 82 117 H 130 H Random Glucose Calcium 06/16/24 06/16/24 06:19 07:06 MCV 95.4 MCH 31.3 MCHC 32.8 RDW 16.1 H Plt Count 45 L D MPV 12.9 H Immature Gran % (Auto) 1.6 H Neut % (Auto) 84.4 H Lymph % (Auto) 7.5 L [place] % (Auto) 6.3 Eos % (Auto) 0.0 Baso % (Auto) 0.2 Lymph # (Auto) 1.0 L [place] # (Auto) 0.8 Eos # (Auto) 0.0 Baso # (Auto) 0.0 Abs Immat Gran (auto) 0.21 H Absolute Neuts (auto) 11.2 H Absolute Nucleated RBC 0.000 Nucleated RBC % (auto) 0.0 Anion Gap 8 L Estim Creat Clear Calc 18.6 Estimated GFR 22 POC Glucose 80 Random Glucose 92 Calcium 7.1 L Microbiology Microbiology Results: Microbiology 06/13/24 11:04 Blood Culture - Preliminary Blood - Venous No growth after 48 hours. 06/13/24 10:03 Blood Culture - Preliminary Blood - Venous No growth after 48 hours. Assessment and Plan (1) ESRD (end stage renal disease) on dialysis: Status: Acute (2) Left leg DVT: Status: Acute Plan 78-year-old male with history of BPH, recurrent C diff colitis, hyperlipidemia, hypertension, history of alcohol use disorder, mild cognitive impairments, sick sinus syndrome s/p pacemaker placement, ESRD on HD MWF, chronic thrombocytopenia admitted for pancolitis and catheter associated UTI SOB cxr ?pna d/w ID, rec to avoid abx if possible due to recurrent cdiff, will check chest CT ->CT showing primarily edema does make some urine, received 1 dose of IV Lasix and had regularly scheduled HD on sunday Shortness of breath resolved Acute GI bleed overnight 06/11 s/p 2 units PRBC. no further episodes of bleeding had EGD 03/2024, showing gastritis, severe duodenitis seen by GI, would avoid scope at this time due to severe thrombocytopenia. Continue PPI, added Carafate Acute on chronic thrombocytopenia HIT panel negative, DIC ruled out, TTP ruled out. haptoglobin low, LDH slightly high; LFTs normal, heraclio test normal Hold Eliquis until plt reaches 50K s/p 2 units PLT; 3rd unit transfused on 06/14 started on prednisone 06/13 - If no response to prednisone will likely need bone marrow biopsy platelets 45 hematology following Chronic anemia H/H stable today s/p blood transfusion x3 follow CBC Hypomagnesemia/hypophosphatemia/hyponatremia Likely secondary to D10 running, stopped Resolved with repletion Moderately malnourished BMI 19.8. poor appetite leading to hypoglycemia. s/p PPN, s/p D5W drip. Nutrition following Ensure added to diet requested regular diet so he has more options that he enjoys and now appetite improving s/p Walker catheter 06/11 as patient is requiring frequent blood draws and has very poor venous access Hypoglycemia likely secondary to poor appetite and malnutrition. Episode of hypoglycemia 06/14 due to not eating breakfast as he was at dialysis. other castillo sugars have been stable, better appetite s/p D10 D50 for BS less than 60 Acute pancolitis secondary to cdiff Cdiff toxin and gene positive, recurrent ID>Stop zosyn. PO vanco (06/02) QID x 10 days then TID x 1 week, then daily x1 week, then MWF indefinitely given recurrence Concern for UTI Complicated by Right-sided nephrostomy tube. CT Right percutaneous nephrostomy catheter in place air within the collecting system on the right probably iatrogenic infectious process or fistula can not be excluded nephro tube removed History VRE UTI>Initially treated with IV linezolid, urine cx negative seen by ID, rec no abx Extensive LLE DVT No AC due to profound thombocytopenia seen by Vascular surgery - s/p IVC filter 06/04 ESRD on HD MWF normally; TTS while in hospital Nephrology following no heparin for flushing Recent dialysis catheter line infection Blood cultures 03/28 positive for Klebsiella. Treated with meropenem during last admission blood cx negative Paroxysmal atrial fibrillation-rate controlled Hold Eliquis as above continue diltiazem, metoprolol and amiodarone Hypertension Diltiazem and metoprolol Sick sinus syndrome Pacemaker in place incidental findings of linear foreign bodies in duodenum. had egd in March with two clips applied in the duodenum DVT prophylaxis- SCPs Full code Requires ongoing inpatient stay for management of severe thrombocytopenia Quality Stroke Does the patient have a stroke diagnosis?: No VTE Prior VTE?: No VTE Risk Level:: Medical - moderate - high VTE Device Contraindication: N/A - Device Ordered VTE Drug Contraindication: Treatment Not Indicated
[2024-06-16 11:07] LABS: Glucose, Whole Blood 107 mg/dL (60-115)
--- NOTE | 2024-06-16 13:03 | MHC.CLN ---
F/U PO INTAKE 75-100% X4 MEALS DIET RX: REGULAR 1800ML FLUID RESTRICTION DIET LIBERALIZED R/T HYPOGLYCEMIA AND POOR PO PT CONTINUES WITH HD PT RECEIVING ENSURE TID PROVIDES 1050KCALS, 60G PROTEIN, 576ML FREE WATER FOR FLUID RESTRICTION CONTINUE TO MONITOR PO INTAKE AND ENCOURAGE SUPPLEMENTS
[2024-06-16 14:18] LABS: Immature Retic Fraction 34.8 % (2.3-13.4); Reticulocytes Absolute 0.026 X10*6/uL (0.026-0.095)
--- NOTE | 2024-06-16 14:22 | MHC.CM.PN ---
EMR reviewed and per MD rounds, pt is not medically cleared for discharge due to management of severe thrombocytopenia.
[2024-06-16 16:23] LABS: Glucose, Whole Blood 121 mg/dL (60-115)
[2024-06-16 20:21] LABS: Glucose, Whole Blood 132 mg/dL (60-115)
[2024-06-17 03:33] VITALS: BP 148/70; PULSE 79; RESP 20; TEMP 36.5; O2SAT 96
[2024-06-17 06:59] LABS: Glucose, Whole Blood 78 mg/dL (60-115)
[2024-06-17 07:02] VITALS: BP 142/64; PULSE 60; RESP 20; TEMP 36.7; O2SAT 100
[2024-06-17 07:08] LABS: MANUAL DIFF FLAG NO
[2024-06-17 07:12] LABS: Basophils Percent Auto 0.1 % (0-2); Eosinophils Percent Auto 0.1 % (0-4); Hematocrit 25.2 % (42.0-52.0); Imm Gran Abs Auto 0.18 X10*3/uL (0.00-0.03); Imm Gran Pct Auto 1.5 % (0.0-0.4); Lymphocytes Percent Auto 8.6 % (20-40); Mean Corpuscular HGB Conc 31.7 g/dl (31.0-36.0); Mean Corpuscular Hemoglobin 30.9 pg (27.0-33.0); Mean Corpuscular Volume 97.3 fL (80.0-98.0); Mean Platelet Volume 12.1 fL (9.4-12.4); Monocytes Absolute Auto 0.9 X10*3/uL (0.1-1.2); Monocytes Percent Auto 7.6 % (2-11); Neutrophils Absolute Auto 9.8 x10*3/uL (2.0-8.3); Neutrophils Percent Auto 82.1 % (45-73); Red Blood Count 2.59 X10*6/uL (4.60-5.80); Red Cell Distribution Width 16.7 % (11.0-16.0)
[2024-06-17 07:17] LABS: Platelet Count 54 X10*3/uL (160-400)
[2024-06-17 07:30] LABS: Anion Gap 11 (12-20); Blood Urea Nitrogen 47 mg/dL (9-16); Carbon Dioxide 27 mmol/L (22-29); Chloride 106 mmol/L (96-108); Creatinine Clr Calc Pharmacy 15.6; Estimated Glomerular Filt Rate 18; Glucose Random 82 mg/dL (60-115); Sodium 139 mmol/L (135-145)
--- NOTE | 2024-06-17 09:31 | HO.PM.IMPN ---
Subjective Subjective Date of Service: 06/17/24 Interval History: Follow-up for DVT, thrombocytopenia Has no specific complaints. no sob PLT better Constitutional Constitutional: Denies chills Cardiovascular Cardiovascular: Denies chest pain, Denies palpitations and Denies dyspnea Respiratory Respiratory: Denies dyspnea Endocrine Endocrine: Denies palpitations Physical Exam Vital Signs: Vital Signs: Last Vital Signs Temp 98.0 F 06/17/24 07:02 Pulse 60 06/17/24 07:02 Resp 20 06/17/24 07:02 BP 142/64 H 06/17/24 07:02 Pulse Ox 100 06/17/24 07:02 O2 Del Method Nasal Cannula 06/17/24 07:02 O2 Flow Rate 1 06/17/24 07:02 BMI result Body Mass Index 19.8 Appearing in no acute distress lung sounds are clear to auscultation heart regular rate rhythm, clear S1, S2 positive bowel sounds, abdomen is soft, nontender neuro patient is alert x3, no focal deficits Objective Data Active Medications Acetaminophen (Acetaminophen 325 Mg Tablet) 650 mg PO Q6H PRN PRN Reason: Pain, Mild 1-3,fever,headache Last Admin: 06/06/24 05:40 Dose: 650 mg Documented By: JESUS Amiodarone HCl (Amiodarone Hcl 200 Mg Tablet) 200 mg PO DAILY [facility] Last Admin: 06/16/24 10:33 Dose: 200 mg Documented By: NELA Ascorbic Acid (Ascorbic Acid 250 Mg Tablet) 250 mg PO DAILY [facility] Last Admin: 06/16/24 10:32 Dose: 250 mg Documented By: NELA Calcium Carbonate (Calcium Carbonate 750 Mg Tab.Chew) 750 mg PO Q4H PRN PRN Reason: Heartburn Calcium Carbonate (Calcium Oyster Shell Elemental 500 Mg Tablet) 500 mg PO DAILY [facility] Last Admin: 06/16/24 10:32 Dose: 500 mg Documented By: NELA Cholestyramine Resin (Cholestyramine (With Sugar) 4 Gm Powd.Pack) 4 gm PO DAILY [facility] Last Admin: 06/16/24 10:34 Dose: Not Given Documented By: NELA Non-Admin Reason: Patient Refused Dextrose (Dextrose 50 % 25 Gm/50 Ml Syringe) 25 gm IVPUSH Q15M PRN PRN Reason: per Hypoglycemia Standing Ord. Last Admin: 06/12/24 17:04 Dose: 25 gm Documented By: CAROLINA Diltiazem HCl (Diltiazem Hcl Cd 240 Mg Cap.Er.Deg) 240 mg PO DAILY [facility]; Protocol Last Admin: 06/16/24 10:32 Dose: 240 mg Documented By: NELA Folic Acid (Folic Acid 1 Mg Tablet) 1 mg PO DAILY [facility] Last Admin: 06/16/24 10:32 Dose: 1 mg Documented By: NELA Lactic Acid (Ammonium Lactate 12 % Lotion 226 Gm Bottle) 1 appl TOPICAL DAILY PRN; Protocol PRN Reason: Dry Skin Magnesium Hydroxide (Milk Of Magnesia 30 Ml Oral.Susp) 30 ml PO DAILY PRN PRN Reason: Constipation Magnesium Oxide (Magnesium Oxide 400 Mg Tablet) 400 mg PO BIDPC [facility] Last Admin: 06/16/24 18:41 Dose: 400 mg Documented By: NELA Melatonin (Melatonin 3 Mg Tablet) 6 mg PO BEDTIME PRN PRN Reason: Insomnia Metoprolol Tartrate (Metoprolol Tartrate 25 Mg Tablet) 25 mg PO DAILY [facility]; Protocol Last Admin: 06/16/24 10:32 Dose: 25 mg Documented By: NELA Ondansetron HCl (Ondansetron Hcl 4 Mg/2 Ml Vial) 4 mg IVPUSH Q8H PRN PRN Reason: Nausea and Vomiting Pharmacy Consult (Consult Rx Parenteral Nutrition Ordering) 1 each MISCELLANE DAILY PRN PRN Reason: Consult order Prednisone (Prednisone 20 Mg Tablet) 40 mg PO DAILY [facility] Last Admin: 06/16/24 10:32 Dose: 40 mg Documented By: NELA Sodium Chloride (0.9 % Sodium Chloride Flush 3 Ml Syringe) 3 ml IVFLUSH QSHIFT [facility] Last Admin: 06/16/24 20:16 Dose: 3 ml Documented By: TAMARA Sucralfate (Sucralfate Oral Suspension 1 Gm/10 Ml Oral.Susp) 1 gm PO QIDACHS [facility] Last Admin: 06/16/24 20:16 Dose: 1 gm Documented By: TAMARA Vancomycin HCl (Vancomycin Hcl 125 Mg Capsule) 125 mg PO TID [facility] Stop: 06/19/24 21:59 Last Admin: 06/16/24 20:16 Dose: 125 mg Documented By: TAMARA Vancomycin HCl (Vancomycin Hcl 125 Mg Capsule) 125 mg PO BID [facility] Stop: 06/26/24 21:59 Labs 06/17/24 06:29 06/17/24 06:29 Labs: Laboratory Results - last 24 hr 06/16/24 06/16/24 06/16/24 06:19 11:03 16:14 MCV MCH MCHC RDW Plt Count MPV Immature Gran % (Auto) Neut % (Auto) Lymph % (Auto) [place] % (Auto) Eos % (Auto) Baso % (Auto) Lymph # (Auto) [place] # (Auto) Eos # (Auto) Baso # (Auto) Abs Immat Gran (auto) Absolute Neuts (auto) Absolute Nucleated RBC Nucleated RBC % (auto) Absolute Retic 0.026 Percent Retic 1.0 Immature Retic Fraction 34.8 H Retic Hgb Equivalent 38.0 H Anion Gap Estim Creat Clear Calc Estimated GFR POC Glucose 107 121 H Random Glucose Calcium 06/16/24 06/17/24 06/17/24 20:17 06:29 06:55 MCV 97.3 MCH 30.9 MCHC 31.7 RDW 16.7 H Plt Count 54 L MPV 12.1 Immature Gran % (Auto) 1.5 H Neut % (Auto) 82.1 H Lymph % (Auto) 8.6 L [place] % (Auto) 7.6 Eos % (Auto) 0.1 Baso % (Auto) 0.1 Lymph # (Auto) 1.0 L [place] # (Auto) 0.9 Eos # (Auto) 0.0 Baso # (Auto) 0.0 Abs Immat Gran (auto) 0.18 H Absolute Neuts (auto) 9.8 H Absolute Nucleated RBC 0.000 Nucleated RBC % (auto) 0.0 Absolute Retic Percent Retic Immature Retic Fraction Retic Hgb Equivalent Anion Gap 11 L Estim Creat Clear Calc 15.6 Estimated GFR 18 POC Glucose 132 H 78 Random Glucose 82 Calcium 7.0 L Assessment and Plan (1) ESRD (end stage renal disease) on dialysis: Status: Acute (2) Left leg DVT: Status: Acute Plan 78-year-old male with history of BPH, recurrent C diff colitis, hyperlipidemia, hypertension, history of alcohol use disorder, mild cognitive impairments, sick sinus syndrome s/p pacemaker placement, ESRD on HD MWF, chronic thrombocytopenia admitted for pancolitis and catheter associated UTI Acute on chronic thrombocytopenia HIT panel negative, DIC ruled out, TTP ruled out. haptoglobin low, LDH slightly high; LFTs normal, heraclio test normal Hold Eliquis until plt reaches 50K s/p 2 units PLT; 3rd unit transfused on 06/14 started on prednisone 06/13 - If no response to prednisone will likely need bone marrow biopsy platelets 54 hematology following>PLT >70 restart AC Extensive LLE DVT No AC due to profound thombocytopenia seen by Vascular surgery - s/p IVC filter 06/04 SOB. Resolved cxr ?pna d/w ID, rec to avoid abx if possible due to recurrent cdiff, will check chest CT ->CT showing primarily edema does make some urine, received 1 dose of IV Lasix and had regularly scheduled HD on sunday Shortness of breath resolved Acute GI bleed overnight 06/11 s/p 2 units PRBC. no further episodes of bleeding had EGD 03/2024, showing gastritis, severe duodenitis seen by GI, would avoid scope at this time due to severe thrombocytopenia. Continue PPI, added Carafate Chronic anemia H/H stable today s/p blood transfusion x3 follow CBC Hypomagnesemia/hypophosphatemia/hyponatremia Likely secondary to D10 running, stopped Resolved with repletion Moderately malnourished BMI 19.8. poor appetite leading to hypoglycemia. s/p PPN, s/p D5W drip. Nutrition following Ensure added to diet requested regular diet so he has more options that he enjoys and now appetite improving s/p Walker catheter 06/11 as patient is requiring frequent blood draws and has very poor venous access Hypoglycemia. Resolved likely secondary to poor appetite and malnutrition. Episode of hypoglycemia 06/14 due to not eating breakfast as he was at dialysis. other castillo sugars have been stable, better appetite s/p D10 D50 for BS less than 60 Acute pancolitis secondary to cdiff Cdiff toxin and gene positive, recurrent ID>Stop zosyn. PO vanco (06/02) QID x 10 days then TID x 1 week, then daily x1 week, then MWF indefinitely given recurrence Concern for UTI. Resolved Complicated by Right-sided nephrostomy tube. CT Right percutaneous nephrostomy catheter in place air within the collecting system on the right probably iatrogenic infectious process or fistula can not be excluded nephro tube removed History VRE UTI>Initially treated with IV linezolid, urine cx negative seen by ID, rec no abx ESRD on HD MWF normally; TTS while in hospital Nephrology following no heparin for flushing Recent dialysis catheter line infection Blood cultures 03/28 positive for Klebsiella. Treated with meropenem during last admission blood cx negative Paroxysmal atrial fibrillation-rate controlled Hold Eliquis as above continue diltiazem, metoprolol and amiodarone Hypertension Diltiazem and metoprolol Sick sinus syndrome Pacemaker in place incidental findings of linear foreign bodies in duodenum. had egd in March with two clips applied in the duodenum DVT prophylaxis- SCPs Full code Requires ongoing inpatient stay for management of severe thrombocytopenia Quality Stroke Does the patient have a stroke diagnosis?: No VTE Prior VTE?: No VTE Risk Level:: Medical - moderate - high VTE Device Contraindication: N/A - Device Ordered VTE Drug Contraindication: Treatment Not Indicated
[2024-06-17 10:52] LABS: Glucose, Whole Blood 60 mg/dL (60-115)
--- NOTE | 2024-06-17 12:33 | P.PNHO-ONC_ITS ---
Medical Summary - Medical Summary Date of Service: 06/17/24 Chief complaint: Weakness Primary Care Provider: Joao Duncan MD Industrial Safety And Health Technician Utilized?: No - Finnish Speaking Interval History Interval history: Mehran Samuel is a 78 year old male with past medical history significant for recurrent DVT since January 2024, rectal cancer status post chemo RT followed by LAR, chronic atrial fibrillation, end-stage renal disease on hemodialysis who is currently admitted for recurrent diarrhea secondary to C diff infection. [place] [facility] [place] following which he was in a penitentiary for 3 weeks and just got home a few days back. He says he came back to the hospital because of recurrent diarrhea as well as pain at the site of right nephrostomy tube. He says he is unable to sleep at night because of this. He had right nephrostomy tube placed in March 2024 because of disruption of distal right ureter which may have occurred during reversal of colostomy performed at [facility] as per urology. During the prolonged hospitalization in March and April 2024 patient had developed severe thrombocytopenia with platelet counts below 20 K. he also developed GI bleeding requiring 3 units PRBC transfusion. EGD showed gastritis, duodenitis and candidal esophagitis that was treated with Diflucan. 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 His Eliquis was stopped. Thrombocytopenia was felt to be multifactorial, related to sepsis with Klebsiella line infection, use of antibiotics, as well as previous alcohol use, splenomegaly. At the time of discharge his platelet counts had come up to about 85 K. During that same admission he was noted to have obstruction of the right distal ureter and right PCN was placed on 04/08/2024. Patient states that he was never diagnosed with DVT in the past. He noticed swelling of his left leg last week after being home for a few days. He denies any pleuritic chest pain, shortness of breath or cough. The left leg swelling is about the same. He denies any significant pain in the leg. He had IVC filter placed and received platelet transfusion. He feels about the same but reports lack of appetite. No bruising or bleeding. No hematuria hematochezia. He denies any pain in the left foot or leg although it remains swollen. He offers no complaints today. Review of Systems - Neurologic Reports system reviewed and no additional complaints, except as documented, Reports as per HPI, Reports hearing normal, Denies dizziness, Denies numbness, Denies sensory deficit, Denies weakness [facility] Medical History: Medical History (Last Reviewed 06/08/24 @ 09:16 by Gabriela Thurman RN) Acute renal failure Aftercare following left shoulder joint replacement surgery Atrial fibrillation Borderline hyperlipidemia BPH (benign prostatic hyperplasia) C. difficile colitis Cancer of kidney End stage renal disease EtOH dependence High cholesterol HTN (hypertension) Hypertension Ileus Inhibited sex excitement Mild cognitive impairment OA (osteoarthritis) Obesity Pacemaker Postoperative hematoma involving digestive system following digestive system procedure Recto-vesical fistula Sick sinus syndrome Sinus bradycardia UTI (urinary tract infection) Family History: Family History (Last Reviewed 06/06/24 @ 17:21 by Marily German MD) Mother Heart problem Family history: reviewed and not pertinent Surgical History: Surgical History (Last Reviewed 06/08/24 @ 09:16 by Gabriela Thurman RN) Atrial fibrillation with rapid ventricular response Encounter for interrogation of cardiac pacemaker Malignant neoplasm of rectum Rectal carcinoma Rectal mass Social History: Social History (Last Reviewed 06/06/24 @ 17:21 by Marily German MD) Living Situation History: Household Members: Family Housing: House Do you presently have visiting nurse or other home services: No Alcohol History Details: 1. How often do you have a drink containing alcohol?: a. Never 3. How often do you have six or more drinks on one occasion?: a. Never AUDIT-C Alcohol total score: 0 Last drink: Unknown Currently Displaying Signs/Symptoms of Alcohol Withdrawal: No Tobacco History: Patient Tobacco Use Status: Former Tobacco user Tobacco use type: Cigarette Smoked in Last 30 Days: No e-Cigarette/Vaping Use: Never Used Patient Interested in Nicotine Replacement: No Patient Given Instructions on How to Stop Smoking: No Second Hand Smoke Exposure: No Substance Use History: Use of substances other than those prescribed or required for medical reasons : No Last Used Substance: Unknown Currently Displaying Signs/Symptoms of Drug Intoxication Withdrawal: No Any prior treatment program specific to substance use: No Domestic Abuse History: Have you been hit, kicked, punched, or otherwise hurt by someone within the past year? If so, by whom?: No Do you feel safe in your current relationship?: Yes Is there a partner from a previous relationship who is making you feel unsafe now?: No Are you made to feel afraid or neglected: No Advance Directives: Advance Directives: Yes Advance Directives on File: Yes Advance Directives Date on File: 11/29/22 Homicidal Assessment: Do you have a plan to hurt others: No Plan Nutrition Assessment: Recently lost weight without trying: No How much weight loss: 14-23 pounds Eating poorly because of decreased appetite: No Nutrition screen score: 4 Nutrition Risks: No Nutritional Risk Poor oral hygiene: No Occupation Assessmet: service: No Home Medications and Allergies Current Medications: Current Medications Acetaminophen (Acetaminophen 325 Mg Tablet) 650 mg PO Q6H PRN PRN Reason: Pain, Mild 1-3,fever,headache Last Admin: 06/06/24 05:40 Dose: 650 mg Amiodarone HCl (Amiodarone Hcl 200 Mg Tablet) 200 mg PO DAILY [facility] Last Admin: 06/16/24 10:33 Dose: 200 mg Ascorbic Acid (Ascorbic Acid 250 Mg Tablet) 250 mg PO DAILY [facility] Last Admin: 06/16/24 10:32 Dose: 250 mg Calcium Carbonate (Calcium Carbonate 750 Mg Tab.Chew) 750 mg PO Q4H PRN PRN Reason: Heartburn Calcium Carbonate (Calcium Oyster Shell Elemental 500 Mg Tablet) 500 mg PO DAILY [facility] Last Admin: 06/16/24 10:32 Dose: 500 mg Cholestyramine Resin (Cholestyramine (With Sugar) 4 Gm Powd.Pack) 4 gm PO DAILY [facility] Last Admin: 06/16/24 10:34 Dose: Not Given Dextrose (Dextrose 50 % 25 Gm/50 Ml Syringe) 25 gm IVPUSH Q15M PRN PRN Reason: per Hypoglycemia Standing Ord. Last Admin: 06/12/24 17:04 Dose: 25 gm Diltiazem HCl (Diltiazem Hcl Cd 240 Mg Cap.Er.Deg) 240 mg PO DAILY [facility]; Protocol Last Admin: 06/16/24 10:32 Dose: 240 mg Folic Acid (Folic Acid 1 Mg Tablet) 1 mg PO DAILY [facility] Last Admin: 06/16/24 10:32 Dose: 1 mg Lactic Acid (Ammonium Lactate 12 % Lotion 226 Gm Bottle) 1 appl TOPICAL DAILY PRN; Protocol PRN Reason: Dry Skin Magnesium Hydroxide (Milk Of Magnesia 30 Ml Oral.Susp) 30 ml PO DAILY PRN PRN Reason: Constipation Magnesium Oxide (Magnesium Oxide 400 Mg Tablet) 400 mg PO BIDPC [facility] Last Admin: 06/16/24 18:41 Dose: 400 mg Melatonin (Melatonin 3 Mg Tablet) 6 mg PO BEDTIME PRN PRN Reason: Insomnia Metoprolol Tartrate (Metoprolol Tartrate 25 Mg Tablet) 25 mg PO DAILY [facility]; Protocol Last Admin: 06/16/24 10:32 Dose: 25 mg Ondansetron HCl (Ondansetron Hcl 4 Mg/2 Ml Vial) 4 mg IVPUSH Q8H PRN PRN Reason: Nausea and Vomiting Pharmacy Consult (Consult Rx Parenteral Nutrition Ordering) 1 each MISCELLANE DAILY PRN PRN Reason: Consult order Prednisone (Prednisone 20 Mg Tablet) 40 mg PO DAILY [facility] Last Admin: 06/16/24 10:32 Dose: 40 mg Sodium Chloride (0.9 % Sodium Chloride Flush 3 Ml Syringe) 3 ml IVFLUSH QSHIFT [facility] Last Admin: 06/16/24 20:16 Dose: 3 ml Sucralfate (Sucralfate Oral Suspension 1 Gm/10 Ml Oral.Susp) 1 gm PO QIDACHS [facility] Last Admin: 06/16/24 20:16 Dose: 1 gm Vancomycin HCl (Vancomycin Hcl 125 Mg Capsule) 125 mg PO TID [facility] Stop: 06/19/24 21:59 Last Admin: 06/16/24 20:16 Dose: 125 mg Vancomycin HCl (Vancomycin Hcl 125 Mg Capsule) 125 mg PO BID [facility] Stop: 06/26/24 21:59 Home Medications ?Medication ?Instructions ?Recorded ?Confirmed ?Type ammonium lactate 12 % lotion 1 appl topical DAILY PRN Dry Skin 06/02/24 06/02/24 History apixaban 5 mg tablet (Eliquis) 5 mg PO BID 06/02/24 06/02/24 History cholestyramine (with sugar) 4 gram 1 ea PO DAILY 06/02/24 06/02/24 History powder for susp in a packet diltiazem HCl 240 mg 240 mg PO DAILY 06/02/24 06/02/24 History capsule,extended release 24 hr metoprolol tartrate 25 mg tablet 25 mg PO DAILY 06/02/24 06/02/24 History pantoprazole 20 mg tablet,delayed 20 mg PO DAILY@0630 06/02/24 06/02/24 History release vancomycin 125 mg capsule 125 mg PO MOWEFR@0900 06/02/24 06/02/24 History Allergies Allergy/AdvReac Type Severity Reaction Status Date / Time No Known Allergies [NKA] Allergy Mild NOT Verified 06/02/24 09:42 APPLICABLE Exam Vital signs: Vital Signs Temp 98.0 F 06/17/24 07:02 Pulse 60 06/17/24 07:02 Resp 20 06/17/24 07:02 BP 142/64 H 06/17/24 07:02 Pulse Ox 100 06/17/24 07:02 O2 Del Method Nasal Cannula 06/17/24 07:02 O2 Flow Rate 1 06/17/24 07:02 Intake & Output 06/16/24 06/17/24 06/17/24 18:59 06:59 18:59 Intake Total 480 / 540 60 / 540 Output Total 50 / 50 Balance 430 / 490 60 / 490 Urine Output (Average ml/kg/hr) 0.07 0.07 0.07 Intake: Intake, Oral Amount 480 / 540 60 / 540 Output: Output, Urine Amount 50 / 50 Other: Breakfast % Eaten 75% Lunch % Eaten 75% Eating (Feeding) Ability Independent Number of Unmeasured Voids 0 Number of Bowel Movements 2 3 Urine Urinal Urine Color Yellow Last Bowel Movement 06/16/24 06/17/24 06/17/24 Stool Incontinent Incontinent Stool Amount Moderate Large Stool Color Brown Dark Brown Stool Consistency Loose Loose Weight 60.8 kg BMI result Body Mass Index 19.8 - Constitutional Present: average body habitus, chronically ill appearing - Routine HEENT Exam Head: Present: normal inspection - Routine Neck Exam Present: full ROM - Routine Respiratory Exam Present: decreased breath sounds, CTAB - Routine Cardiovascular Exam Cardiovascular: Present: RRR, S1, S2 - Routine Abdominal Exam Present: diminished bowel sounds, soft - Routine Extremities Exam Present: pedal edema - Routine Skin Exam Present: intact Data - Labs CBC & Chem 7: 06/17/24 06:29 06/17/24 06:29 - Imaging Radiologist's impression: ITS Impressions Removal Nephrostomy 06/04/24 11:30 IMPRESSION: The right nephrostomy catheter was removed as it was not needed anymore. Electronically signed by: Alfredo Ramirez MD 06/13/2024 06:57 AM EDT RP Venous Duplex 06/04/24 14:25 IMPRESSION: No evidence of deep venous thrombosis involving the right upper extremity. Electronically signed by: Lior Lewis MD 06/04/2024 03:08 PM EDT RP Guidance Ultrasound 06/11/24 14:00 IMPRESSION: Placement of a tunneled central venous catheter in the right internal jugular vein. PLAN: -The catheter may be used immediately. Electronically signed by: Rodolfo Hunter MD 06/11/2024 03:12 PM EDT RP Insertion Tunneled Catheter 06/11/24 15:07 IMPRESSION: Placement of a tunneled central venous catheter in the right internal jugular vein. PLAN: -The catheter may be used immediately. Electronically signed by: Rodolfo Hunter MD 06/11/2024 03:12 PM EDT RP Chest X-Ray 06/13/24 09:30 IMPRESSION: 1. Lines and tubes in satisfactory position. 2. Right-sided Dual-lead pacer in place, unchanged. 3. Mild cardiac enlargement, with development of mild interstitial pulmonary edema. There is a slightly larger small left effusion. 4. Opacity in the right lower lung, possibly alveolar edema versus developing pneumonia. Follow-up recommended. 5. There is no perceptible pneumothorax. Electronically signed by: Lior Lewis MD 06/13/2024 10:00 AM EDT RP Assessment and Plan Patient Active problem list reviewed?: Yes (1) Left leg DVT Status: Acute Assessment and plan: 1. This is a 78-year-old male with multiple medical problems and complicated medical history who is now admitted for recurrent C diff colitis and left lower extremity DVT. Left lower extremity ultrasound showed extensive DVT extending from calf veins into popliteal, femoral and proximal deep femoral and common femoral veins. CT abdomen/pelvis without contrast shows right percutaneous nephrostomy catheter in place, air in the collecting system, probably iatrogenic, infectious or fistula. Indeterminate exophytic lesion of left kidney. Ward colitis with indeterminate soft tissue density with air just below aortic bifurcation, fistulous process can not be excluded. He noticed swelling in his left leg since 05/31/2024. He was not taking Eliquis since he left the hospital on April 18. He received platelet transfusion and underwent IVC filter placement on 06/04/2024. Causes of thrombocytopenia-heparin induced thrombocytopenia and DIC have been ruled out. TTP has been ruled out as his kidney functions remained stable on dialysis and LDH has been declining. Haptoglobin is less than 8 suggesting ongoing hemolysis. Juan Diego test is negative. Therefore autoimmune causes of thrombocytopenia is in the differential. Underlying malignancy, myelodysplastic syndrome is also a possibility. He was started on prednisone 40 mg once a day along with GI prophylaxis. Platelet counts are improving. Hemoglobin is stable. He will need to resume PATTI therapy with hemodialysis. 2. Left lower extremity DVT, status post IVC filter placement. He has not resumed anticoagulation because of severe thrombocytopenia as well as GI bleeding. Start Eliquis at 2.5 mg p.o. b.i.d. if his platelet counts continue to increase and his anemia does not worsen. - Time Spent With Patient Time Spent with Patient (in minutes): 10
[2024-06-17] MEDS: Folic Acid 1 MG TABLET PO (12:57)
[2024-06-17] MEDS: Magnesium Oxide 400 MG TABLET PO ×2 (12:57→16:10)
[2024-06-17] MEDS: Calcium Oyster Shell Elemental 500 MG TABLET PO (12:57)
[2024-06-17] MEDS: predniSONE 20 MG TABLET 40 MG PO (12:58)
[2024-06-17] MEDS: Sucralfate Oral Suspension 1 GM/10 ML ORAL.SUSP PO ×3 (12:58→22:11)
[2024-06-17] MEDS: vancomycin HCL 125 MG CAPSULE PO ×3 (12:58→22:11)
[2024-06-17] MEDS: dilTIAZem HCL CD 240 MG CAP.ER.DEG PO (12:58)
[2024-06-17] MEDS: Metoprolol Tartrate 25 MG TABLET PO (12:58)
[2024-06-17] MEDS: Amiodarone HCL 200 MG TABLET PO (12:58)
[2024-06-17] MEDS: 0.9 % Sodium Chloride Flush 3 ML SYRINGE IVFLUSH ×3 (12:59→22:12)
[2024-06-17] MEDS: Ascorbic Acid 250 MG TABLET PO (12:59)
[2024-06-17] MEDS: Cholestyramine (With Sugar) 4 GM POWD.PACK PO (13:00)
[2024-06-17 13:12] LABS: Glucose, Whole Blood 75 mg/dL (60-115)
[2024-06-17 13:17] VITALS: BP 120/60; PULSE 80; RESP 20; TEMP 36.4; O2SAT 97
[2024-06-17 15:36] VITALS: BP 132/60; PULSE 65; RESP 16; TEMP 36.5; O2SAT 99
[2024-06-17 16:22] LABS: Glucose, Whole Blood 99 mg/dL (60-115)
[2024-06-17 19:57] VITALS: BP 134/64; PULSE 62; RESP 16; TEMP 37.1; O2SAT 99
[2024-06-17 20:11] LABS: Glucose, Whole Blood 146 mg/dL (60-115)
[2024-06-17 23:34] VITALS: BP 131/63; PULSE 65; RESP 18; TEMP 37; O2SAT 99
[2024-06-18] VITALS (7 sets, daily range): BP systolic 101–148; BP diastolic 53–70; PULSE 53–68; RESP 16–18; TEMP 36.2–37.1; O2SAT 93–100
[2024-06-18] MEDS: Sucralfate Oral Suspension 1 GM/10 ML ORAL.SUSP PO ×4 (06:21→21:03)
[2024-06-18 06:51] LABS: Glucose, Whole Blood 73 mg/dL (60-115)
[2024-06-18 07:29] LABS: Basophils Percent Auto 0.1 % (0-2); Hematocrit 24.8 % (42.0-52.0); Imm Gran Abs Auto 0.24 X10*3/uL (0.00-0.03); Imm Gran Pct Auto 2.2 % (0.0-0.4); Lymphocytes Absolute Auto 1.2 X10*3/uL (1.2-4.9); Lymphocytes Percent Auto 10.5 % (20-40); Mean Corpuscular HGB Conc 32.3 g/dl (31.0-36.0); Mean Corpuscular Hemoglobin 31.4 pg (27.0-33.0); Mean Corpuscular Volume 97.3 fL (80.0-98.0); Mean Platelet Volume 11.6 fL (9.4-12.4); Monocytes Absolute Auto 0.8 X10*3/uL (0.1-1.2); Monocytes Percent Auto 6.8 % (2-11); Neutrophils Absolute Auto 8.8 x10*3/uL (2.0-8.3); Neutrophils Percent Auto 80.4 % (45-73); Red Blood Count 2.55 X10*6/uL (4.60-5.80)
[2024-06-18 07:30] LABS: Platelet Count 53 X10*3/uL (160-400)
[2024-06-18] MEDS: predniSONE 20 MG TABLET 40 MG PO (07:32)
[2024-06-18] MEDS: Amiodarone HCL 200 MG TABLET PO (07:32)
[2024-06-18] MEDS: Ascorbic Acid 250 MG TABLET PO (07:32)
[2024-06-18] MEDS: Cholestyramine (With Sugar) 4 GM POWD.PACK PO (07:32)
[2024-06-18] MEDS: Magnesium Oxide 400 MG TABLET PO ×2 (07:32→16:18)
[2024-06-18] MEDS: Metoprolol Tartrate 25 MG TABLET PO (07:32)
[2024-06-18] MEDS: vancomycin HCL 125 MG CAPSULE PO ×3 (07:32→21:03)
[2024-06-18] MEDS: dilTIAZem HCL CD 240 MG CAP.ER.DEG PO (07:32)
[2024-06-18] MEDS: Folic Acid 1 MG TABLET PO (07:32)
[2024-06-18] MEDS: Calcium Oyster Shell Elemental 500 MG TABLET PO (07:32)
[2024-06-18] MEDS: 0.9 % Sodium Chloride Flush 3 ML SYRINGE IVFLUSH ×3 (07:33→21:03)
[2024-06-18 07:35] LABS: Anion Gap 8 (12-20); Blood Urea Nitrogen 34 mg/dL (9-16); Carbon Dioxide 30 mmol/L (22-29); Chloride 105 mmol/L (96-108); Estimated Glomerular Filt Rate 24; Glucose Random 89 mg/dL (60-115); Potassium 5.1 mmol/L (3.3-5.1); Sodium 138 mmol/L (135-145)
[2024-06-18 09:01] LABS: MANUAL DIFF FLAG SCAN; SLIDE REVIEW VERIFIED
--- NOTE | 2024-06-18 10:28 | PM.DS ---
DS: Providers Provider Date of Service: 06/18/24 Date of admission: 06/02/24 13:55 Date of discharge: 06/18/24 Primary care physician: Joao Duncan MD Consults: 06/02/24 13:33 Consult to Nephrology Routine Consulting Provider: [facility] Reason for consultation: esrd missed hd 06/02/24 13:51 Consult to Urology Routine Consulting Provider: [facility] Reason for consultation: L nephrostomy tube, catheter associated UTI 06/02/24 15:24 Consult to Vascular Surgery Routine Consulting Provider: [facility] V[facility] Reason for consultation: acute lle dvt, plt 25,000 06/02/24 16:55 Consult to Hematology / Oncology Routine Consulting Provider: [facility] Oncology/Hematology Reason for consultation: severe thombocytopenia, ?HIT. Please see mrcp 06/05/24 07:54 Consult to Infectious Diseases Routine Consulting Provider: [facility] Reason for consultation: Cdiff, complicated kidney infection with neg cultures 06/11/24 04:10 Consult to Gastroenterology Routine Consulting Provider: Nawaf Lara Reason for consultation: GI bleed DS: Diagnosis Discharge Diagnosis (1) Left leg DVT: Status: Acute DS: Summary Hospital Course Hospital Course: History and physical as per admitting provider. 78-year-old male with history of BPH, recurrent C diff colitis, hyperlipidemia, hypertension, history of alcohol use disorder, mild cognitive impairments, sick sinus syndrome s/p pacemaker placement, ESRD on HD MWF, chronic thrombocytopenia for evaluation of diarrhea and perianal burning ongoing for several days. There has been no blood in the diarrhea per patient. No fevers, chills, abdominal pain, nausea, vomiting. Tolerating diet. He is also reporting swelling in the left lower extremity ongoing for 3 days. He also has right-sided nephrostomy tube in place and is reporting burning around the catheter site. Reports this was supposed to be changed but was not. He was recently admitted from 03/25-04/18 with a complicated admission with Klebsiella line infection with septic shock and bacteremia treated with meropenem. He also developed GI bleeding requiring 3 units packed red blood cells. Had a positive C diff face toxin which was likely colonization and recommended by ID to have a p.o. vancomycin taper. He denies any ongoing alcohol use, cigarette smoking, or drug use. He denies any recent antibiotic use (though was on Mirapex item and p.o. vancomycin in the last 2 months). No travel outside of the country or bad foods. No one at home sick with similar symptoms. On review of chart, diarrhea appears chronic with known history of C diff colonization. Also reporting swelling LLE ongoing x 3 days. no sob, cp, palpitations. Compliant with eliquis. In the ED, vitals stable. There is a leukocytosis 26.6. H/H11.9/37.1%. Platelets 25,000. 92% neutrophil predominance with 5% bands. Creatinine 4.5, BUN 23, electrolyte levels normal. Lactic acid 2.8. CRP 14.34, ESR 2. Urinalysis with 3+ leukocytes, positive nitrites, 3+ blood, positive urinary sediment, 4+ bacteria. Stool occult blood positive. C diff PCR and GI panel pending. CT abdomen/pelvis shows right percutaneous nephrostomy catheter in place with air in the collecting system on the right probably iatrogenic infectious process versus fistula. No obstructive uropathy. There is an intermittent exophytic lesion left kidney as well as persistent pleural parenchymal disease on the left, improved on the right. There is also root colitis, proctitis, cystitis, fistulous process can not be excluded given air just below the aortic bifurcation. In the ED has been given IV cefepime, Flagyl, and vancomycin. Discussed with Hematology. For now avoid anticoagulation even with argatroban or fondaparinux; continue to use heparin flushes for dialysis. Consider IR IVC filter placement though thrombocyoptenia may limit this. sent HIT screening test/cascade. C.diff gene/toxin positive likely representing C.difficile colitis. Will treat with vancomycin pulse/taper. Acute on chronic thrombocytopenia HIT panel negative, DIC ruled out, TTP ruled out. haptoglobin low, LDH slightly high; LFTs normal, heraclio test normal Hold Eliquis until plt reaches 70K, followup with hematology for guidance with this s/p 3 units PLT started on prednisone 5/2, plan for slow ramesh, 5 mg a week for 8 weeks platelets 53 hematology following>PLT >70 restart AC Extensive LLE DVT No AC due to profound thombocytopenia seen by Vascular surgery - s/p IVC filter 06/04 unable to restart AC due to thrombocytopenia SOB. Resolved cxr, pna d/w ID, rec to avoid abx if possible due to recurrent cdiff does make some urine, received 1 dose of IV Lasix and had regularly scheduled HD on sunday Shortness of breath resolved Acute GI bleed overnight 06/11 s/p 2 units PRBC. no further episodes of bleeding had EGD 03/2024, showing gastritis, severe duodenitis seen by GI, would avoid scope at this time due to severe thrombocytopenia. Continue PPI, added Carafate Chronic anemia H/H stable s/p blood transfusion x3 follow CBC Hypomagnesemia/hypophosphatemia/hyponatremia Likely secondary to D10 running, stopped Resolved with repletion Moderately malnourished BMI 19.8. poor appetite leading to hypoglycemia. s/p PPN, s/p D5W drip. Ensure added to diet s/p Walker catheter 06/11 as patient is requiring frequent blood draws and has very poor venous access Hypoglycemia. Resolved likely secondary to poor appetite and malnutrition. Episode of hypoglycemia / due to not eating breakfast as he was at dialysis. other castillo sugars have been stable, better appetite s/p D10 D50 for BS less than 60 Acute pancolitis secondary to cdiff Cdiff toxin and gene positive, recurrent ID>Stop zosyn. PO vanco (06/02) QID x 10 days then TID x 1 week, then daily x1 week, then MWF indefinitely given recurrence Concern for UTI. Resolved Complicated by Right-sided nephrostomy tube. CT Right percutaneous nephrostomy catheter in place air within the collecting system on the right probably iatrogenic infectious process or fistula can not be excluded nephro tube removed History VRE UTI>Initially treated with IV linezolid, urine cx negative seen by ID, rec no abx ESRD on HD MWF normally; TTS while in hospital Nephrology following no heparin for flushing Recent dialysis catheter line infection Blood cultures 03/28 positive for Klebsiella. Treated with meropenem during last admission blood cx negative Paroxysmal atrial fibrillation-rate controlled Hold Eliquis as above continue diltiazem, metoprolol and amiodarone Hypertension Diltiazem and metoprolol Sick sinus syndrome Pacemaker in place incidental findings of linear foreign bodies in duodenum. had egd in March with two clips applied in the duodenum Time Attestation Discharge Coordination Time (in mins): 45 Quality: Safe Use of Opioids Does Pt have an Active Cancer Diagnosis on the Problem List?: No Quality: Stroke Does the patient have a stroke diagnosis?: No Physical Exam Vital Signs: Vital Signs: Last Vital Signs Temp 98.8 F 06/18/24 06:49 Pulse 66 06/18/24 07:32 Resp 18 06/18/24 06:49 BP 129/60 06/18/24 07:32 Pulse Ox 100 06/18/24 06:49 O2 Del Method Nasal Cannula 06/18/24 06:49 O2 Flow Rate 1 06/18/24 06:49 BMI result Body Mass Index 19.8 Appearing in no acute distress, weak and frail head is normocephalic atraumatic eyes pupils are PERRLA sclera is anicteric mouth throat mucous membranes are intact and moist neck is supple no lymphadenopathy, no JVD noted lung sounds are clear to auscultation heart regular rate rhythm, clear S1, S2 positive bowel sounds, abdomen is soft, nontender neuro patient is alert x3, no focal deficits DS: Data Data Completed and Pending Completed studies during hospitalization [Text1]: Procedures Bypass Right Kidney Pelvis to Cutaneous with Synthetic Substitute, Percutaneous Approach (03/25/24) Control Bleeding in Gastrointestinal Tract, Via Natural or Artificial Opening Endoscopic (03/25/24) Destruction of Stomach, Pylorus, Via Natural or Artificial Opening Endoscopic (06/18/22) Excision of Ascending Colon, Via Natural or Artificial Opening Endoscopic, Diagnostic (06/18/22) Excision of Descending Colon, Via Natural or Artificial Opening Endoscopic, Diagnostic (06/18/22) Excision of Duodenum, Via Natural or Artificial Opening Endoscopic, Diagnostic (06/18/22) Excision of Rectum, Via Natural or Artificial Opening Endoscopic, Diagnostic (06/18/22) Excision of Stomach, Pylorus, Via Natural or Artificial Opening Endoscopic, Diagnostic (06/18/22) Insertion of Infusion Device into Right Atrium, Percutaneous Approach (03/25/24) Insertion of Infusion Device into Right Internal Jugular Vein, Percutaneous Approach (03/25/24) Insertion of Pacemaker Lead into Right Atrium, Percutaneous Approach (06/18/22) Insertion of Pacemaker Lead into Right Ventricle, Percutaneous Approach (06/18/22) Insertion of Pacemaker, Dual Chamber into Chest Subcutaneous Tissue and Fascia, Open Approach (06/18/22) Insertion of Tunneled Vascular Access Device into Chest Subcutaneous Tissue and Fascia, Percutaneous Approach (03/25/24) Inspection of Ureter, Via Natural or Artificial Opening Endoscopic (03/25/24) Introduction of Mineral-based Topical Hemostatic Agent into Lower GI, Via Natural or Artificial Opening Endoscopic, [employer] (11/09/22) Introduction of Mineral-based Topical Hemostatic Agent into Upper GI, Via Natural or Artificial Opening Endoscopic, [employer] (03/25/24) Introduction of Vasopressor into Peripheral Vein, Percutaneous Approach (03/25/24) Occlusion of Inferior Mesenteric Artery with Intraluminal Device, Percutaneous Approach (11/09/22) Performance of Urinary Filtration, Intermittent, Less than 6 Hours Per Day (03/25/24) Removal of Tunneled Vascular Access Device from Trunk Subcutaneous Tissue and Fascia, Open Approach (03/25/24) Transfusion of Nonautologous Platelets into Peripheral Vein, Percutaneous Approach (03/25/24) Transfusion of Nonautologous Red Blood Cells into Peripheral Vein, Percutaneous Approach (03/25/24) Ultrasonography of Right Jugular Veins, Guidance (03/25/24) Ultrasonography of Superior Vena Cava, Guidance (03/25/24) Labs on day of discharge: Laboratory Results - last 24 hr 06/17/24 06/17/24 06/17/24 10:48 12:59 16:18 WBC RBC Hgb Hct MCV MCH MCHC RDW Plt Count MPV Immature Gran % (Auto) Neut % (Auto) Lymph % (Auto) [place] % (Auto) Eos % (Auto) Baso % (Auto) Lymph # (Auto) [place] # (Auto) Eos # (Auto) Baso # (Auto) Abs Immat Gran (auto) Absolute Neuts (auto) Absolute Nucleated RBC Nucleated RBC % (auto) Smear Tech's Comments Sodium Potassium Chloride Carbon Dioxide Anion Gap BUN Creatinine Estim Creat Clear Calc Estimated GFR POC Glucose 60 75 99 Random Glucose Calcium 06/17/24 06/18/24 06/18/24 20:06 06:48 07:08 WBC 11.0 H RBC 2.55 L Hgb 8.0 L Hct 24.8 L MCV 97.3 MCH 31.4 MCHC 32.3 RDW 17.0 H Plt Count 53 L MPV 11.6 Immature Gran % (Auto) 2.2 H Neut % (Auto) 80.4 H Lymph % (Auto) 10.[address] [place] % (Auto) 6.8 Eos % (Auto) 0.0 Baso % (Auto) 0.1 Lymph # (Auto) 1.2 [place] # (Auto) 0.8 Eos # (Auto) 0.0 Baso # (Auto) 0.0 Abs Immat Gran (auto) 0.24 H Absolute Neuts (auto) 8.8 H Absolute Nucleated RBC 0.000 Nucleated RBC % (auto) 0.0 Smear Tech's Comments VERIFIED Sodium 138 Potassium 5.1 Chloride 105 Carbon Dioxide 30 H Anion Gap 8 L BUN 34 H Creatinine 2.65 H Estim Creat Clear Calc 20.0 Estimated GFR 24 POC Glucose 146 H 73 Random Glucose 89 Calcium 7.0 L Preliminary micro results at discharge 06/13/24 11:04 Blood Culture - Preliminary Blood - Venous No growth after 48 hours. 06/13/24 10:03 Blood Culture - Preliminary Blood - Venous No growth after 48 hours. Discharge Plan Discharge Anticipated Discharge Date/Time: 06/18/24 09:56 Patient Disposition: Home Health Service Discharge Diagnosis: Acute pancolitis secondary to C diff Hypoglycemia Moderately malnourished Acute GI bleed Extensive left lower extremity DVT Acute on chronic thrombocytopenia Referrals: Letty Barahona [Outside] - 1 Week Joao Duncan MD [Primary Care Provider] - 1 Week Yu Gaxiola MD [Physician] - 1 Week Discharge Medications: New prednisone 10 mg tablet See Taper PO DIRECTED Qty: 128 0RF Taper: Prednisone 40 mg daily for 7 Days and 0 Hour 35 mg daily for 7 Days and 0 Hour 30 mg daily for 7 Days and 0 Hour 25 mg daily for 7 Days and 0 Hour 20 mg daily for 7 Days 15 mg daily for 7 Days 10 mg daily for 7 Days 5 mg daily for 7 Days Rx Instructions: see taper instructions vancomycin 125 mg Capsule 125 mg PO BID Qty: 60 2RF Rx Instructions: Take 1 tab BID until 06/26/24 then 1 tab every Sunday, Sunday and Sunday Continued (DME) radha [facility] [place] See Rx Instructions .Route Qty: 1 0RF Rx Instructions: As directed ammonium lactate 12 % Lotion 1 appl TOPICAL DAILY PRN (Reason: Dry Skin) diltiazem HCl 240 mg Capsule,Extended Release 24hr 240 mg PO DAILY pantoprazole 20 mg Tablet,Delayed Release (Dr/Ec) 20 mg PO DAILY@0630 cholestyramine (with sugar) 4 gram powder in packet 1 ea PO DAILY metoprolol tartrate 25 mg tablet 25 mg PO DAILY Protocol: Hold for SBP/HR < HOLD for SBP < : 90 HOLD for HR < : 60 amiodarone 200 mg tablet 200 mg PO DAILY Qty: 90 1RF Rx Instructions: After loading dose. Discontinued vancomycin 125 mg capsule 125 mg PO MOWEFR@0900 Eliquis 5 mg Tablet 5 mg PO BID Discharge Orders: Discharge Order (Routine); Ordered 06/18/24 Ordered By: Nathalia Dawn Diet: Advance to usual diet Activity on Discharge: As tolerated Stand Alone Forms: Patient Portal Discharge page Print Language: Japanese Other Ambulatory Orders: Complete Blood Count Auto Diff (Routine) Timeframe: 20240623 Facility: [facility] - Location: Laboratory Ordered By: Nathalia Dawn Care Plan Goals: Complete steroid taper Follow up with Dr. Gaxiola in oncology to discuss when to restart Eliquis Health Concerns: Acute pancolitis secondary to C diff Hypoglycemia Moderately malnourished Acute GI bleed Extensive left lower extremity DVT Acute on chronic thrombocytopenia Plan of Treatment: Follow up with primary care provider as needed Take all medications as prescribed Assessment: See discharge summary
[2024-06-18 11:00] LABS: Glucose, Whole Blood 120 mg/dL (60-115)
--- NOTE | 2024-06-18 12:06 | MHC.CLN ---
F/U PO INTAKE 50-75% DIET RX: REGULAR 1800ML FLUID RESTRICTION DIET LIBERALIZED R/T HYPOGLYCEMIA AND POOR PO PT CONTINUES WITH HD PT RECEIVING ENSURE TID PROVIDES 1050KCALS, 60G PROTEIN, 576ML FREE WATER FOR FLUID RESTRICTION CONTINUE TO MONITOR PO INTAKE AND ENCOURAGE SUPPLEMENTS
--- NOTE | 2024-06-18 14:41 | W.MHC.F2F ---
Service Date Service Date: 06/18/24 Encounter Date of encounter: 06/18/24 Reasons for Services Signs and symptoms assessed: Thrombocytopenia Reason for intermediate: CV/CP assess and/or care and other (Monitoring blood work) Reason for physical therapy: home safety and mobility and energy conservation Homebound: Leaving the home is medically contraindicated at this time without the asist of a device and/or another person due th the listed conditions above and below. Reason homebound: unsteady gait / fall risk and weakness related to hospital stay Certification: Based on the above findings, I certify that this patient is confined to the home and needs intermittent intermediate care, physical therapy and/or speech therapy, or continues to need occupational therapy. The patient is under my care, and I have initiated the establishment of the plan of care. The patient will be followed by a physician who will periodically review the plan of care. Time Spent With Patient Time: Total time managing care of this patient today ____ minutes.
--- NOTE | 2024-06-18 14:59 | MHC.CM.PN ---
Patient is discharged to home today with resumption of [facility]. All dc info has been sent to the agency. Transportation is booked with [facility] 4:30 pm parts picker is scheduled.
--- NOTE | 2024-06-18 16:33 | P.PNIM_ITS ---
Subjective Subjective Date of Service: 06/18/24 Interval History: Follow-up for DVT, thrombocytopenia Has no specific complaints. no sob PLT better Constitutional Constitutional: Denies chills Cardiovascular Cardiovascular: Denies chest pain, Denies palpitations and Denies dyspnea Respiratory Respiratory: Denies dyspnea Endocrine Endocrine: Denies palpitations Physical Exam 2 Vital Signs: Vital Signs: Last Vital Signs Temp 98.4 F 06/18/24 11:06 Pulse 60 06/18/24 11:06 Resp 18 06/18/24 11:06 BP 126/56 L 06/18/24 11:06 Pulse Ox 100 06/18/24 11:06 O2 Del Method Nasal Cannula 06/18/24 11:06 O2 Flow Rate 1 06/18/24 11:06 BMI result Body Mass Index 19.8 Appearing in no acute distress lung sounds are clear to auscultation heart regular rate rhythm, clear S1, S2 positive bowel sounds, abdomen is soft, nontender neuro patient is alert x3, no focal deficits Objective Data Active Medications Acetaminophen (Acetaminophen 325 Mg Tablet) 650 mg PO Q6H PRN PRN Reason: Pain, Mild 1-3,fever,headache Last Admin: 06/06/24 05:40 Dose: 650 mg Documented By: JESUS Amiodarone HCl (Amiodarone Hcl 200 Mg Tablet) 200 mg PO DAILY [facility] Last Admin: 06/18/24 07:32 Dose: 200 mg Documented By: FAYE Ascorbic Acid (Ascorbic Acid 250 Mg Tablet) 250 mg PO DAILY [facility] Last Admin: 06/18/24 07:32 Dose: 250 mg Documented By: FAYE Calcium Carbonate (Calcium Carbonate 750 Mg Tab.Chew) 750 mg PO Q4H PRN PRN Reason: Heartburn Calcium Carbonate (Calcium Oyster Shell Elemental 500 Mg Tablet) 500 mg PO DAILY [facility] Last Admin: 06/18/24 07:32 Dose: 500 mg Documented By: FAYE Cholestyramine Resin (Cholestyramine (With Sugar) 4 Gm Powd.Pack) 4 gm PO DAILY [facility] Last Admin: 06/18/24 07:32 Dose: 4 gm Documented By: FAYE Dextrose (Dextrose 50 % 25 Gm/50 Ml Syringe) 25 gm IVPUSH Q15M PRN PRN Reason: per Hypoglycemia Standing Ord. Last Admin: 06/12/24 17:04 Dose: 25 gm Documented By: CAROLINA Diltiazem HCl (Diltiazem Hcl Cd 240 Mg Cap.Er.Deg) 240 mg PO DAILY [facility]; Protocol Last Admin: 06/18/24 07:32 Dose: 240 mg Documented By: FAYE Folic Acid (Folic Acid 1 Mg Tablet) 1 mg PO DAILY [facility] Last Admin: 06/18/24 07:32 Dose: 1 mg Documented By: FAYE Lactic Acid (Ammonium Lactate 12 % Lotion 226 Gm Bottle) 1 appl TOPICAL DAILY PRN; Protocol PRN Reason: Dry Skin Magnesium Hydroxide (Milk Of Magnesia 30 Ml Oral.Susp) 30 ml PO DAILY PRN PRN Reason: Constipation Magnesium Oxide (Magnesium Oxide 400 Mg Tablet) 400 mg PO BIDPC [facility] Last Admin: 06/18/24 16:18 Dose: 400 mg Documented By: FAYE Melatonin (Melatonin 3 Mg Tablet) 6 mg PO BEDTIME PRN PRN Reason: Insomnia Metoprolol Tartrate (Metoprolol Tartrate 25 Mg Tablet) 25 mg PO DAILY [facility]; Protocol Last Admin: 06/18/24 07:32 Dose: 25 mg Documented By: FAYE Ondansetron HCl (Ondansetron Hcl 4 Mg/2 Ml Vial) 4 mg IVPUSH Q8H PRN PRN Reason: Nausea and Vomiting Pharmacy Consult (Consult Rx Parenteral Nutrition Ordering) 1 each MISCELLANE DAILY PRN PRN Reason: Consult order Prednisone (Prednisone 20 Mg Tablet) 40 mg PO DAILY [facility] Last Admin: 06/18/24 07:32 Dose: 40 mg Documented By: FAYE Sodium Chloride (0.9 % Sodium Chloride Flush 3 Ml Syringe) 3 ml IVFLUSH QSHIFT [facility] Last Admin: 06/18/24 15:15 Dose: 3 ml Documented By: FAYE Sucralfate (Sucralfate Oral Suspension 1 Gm/10 Ml Oral.Susp) 1 gm PO QIDACHS [facility] Last Admin: 06/18/24 15:15 Dose: 1 gm Documented By: FAYE Vancomycin HCl (Vancomycin Hcl 125 Mg Capsule) 125 mg PO TID [facility] Stop: 06/19/24 21:59 Last Admin: 06/18/24 15:15 Dose: 125 mg Documented By: FAYE Vancomycin HCl (Vancomycin Hcl 125 Mg Capsule) 125 mg PO BID [facility] Stop: 06/26/24 21:59 Labs 06/18/24 07:08 06/18/24 07:08 Labs: Laboratory Results - last 24 hr 06/17/24 06/18/24 06/18/24 20:06 06:48 07:08 MCV 97.3 MCH 31.4 MCHC 32.3 RDW 17.0 H Plt Count 53 L MPV 11.6 Immature Gran % (Auto) 2.2 H Neut % (Auto) 80.4 H Lymph % (Auto) 10.5 L [place] % (Auto) 6.8 Eos % (Auto) 0.0 Baso % (Auto) 0.1 Lymph # (Auto) 1.2 [place] # (Auto) 0.8 Eos # (Auto) 0.0 Baso # (Auto) 0.0 Abs Immat Gran (auto) 0.24 H Absolute Neuts (auto) 8.8 H Absolute Nucleated RBC 0.000 Nucleated RBC % (auto) 0.0 Smear Tech's Comments VERIFIED Anion Gap 8 L Estim Creat Clear Calc 20.0 Estimated GFR 24 POC Glucose 146 H 73 Random Glucose 89 Calcium 7.0 L 06/18/24 10:55 MCV MCH MCHC RDW Plt Count MPV Immature Gran % (Auto) Neut % (Auto) Lymph % (Auto) [place] % (Auto) Eos % (Auto) Baso % (Auto) Lymph # (Auto) [place] # (Auto) Eos # (Auto) Baso # (Auto) Abs Immat Gran (auto) Absolute Neuts (auto) Absolute Nucleated RBC Nucleated RBC % (auto) Smear Tech's Comments Anion Gap Estim Creat Clear Calc Estimated GFR POC Glucose 120 H Random Glucose Calcium Microbiology Microbiology Results: Microbiology 06/13/24 11:04 Blood Culture - Final Blood - Venous No growth after 5 days. 06/13/24 10:03 Blood Culture - Final Blood - Venous No growth after 5 days. Assessment and Plan (1) ESRD (end stage renal disease) on dialysis: Status: Acute (2) Left leg DVT: Status: Acute Plan 78-year-old male with history of BPH, recurrent C diff colitis, hyperlipidemia, hypertension, history of alcohol use disorder, mild cognitive impairments, sick sinus syndrome s/p pacemaker placement, ESRD on HD MWF, chronic thrombocytopenia admitted for pancolitis and catheter associated UTI Acute on chronic thrombocytopenia HIT panel negative, DIC ruled out, TTP ruled out. haptoglobin low, LDH slightly high; LFTs normal, heraclio test normal Hold Eliquis until plt reaches 50K s/p 2 units PLT; 3rd unit transfused on 06/14 started on prednisone 06/13 - If no response to prednisone will likely need bone marrow biopsy platelets 53 hematology following>PLT >70 restart AC, prednisone taper 40 mg, then 5mg down weekly for 8 weeks walker catheter to be removed Extensive LLE DVT No AC due to profound thombocytopenia seen by Vascular surgery - s/p IVC filter 06/04 SOB. Resolved cxr ?pna d/w ID, rec to avoid abx if possible due to recurrent cdiff, will check chest CT ->CT showing primarily edema does make some urine, received 1 dose of IV Lasix and had regularly scheduled HD on sunday Shortness of breath resolved Acute GI bleed overnight 06/11 s/p 2 units PRBC. no further episodes of bleeding had EGD 03/2024, showing gastritis, severe duodenitis seen by GI, would avoid scope at this time due to severe thrombocytopenia. Continue PPI, added Carafate Chronic anemia H/H stable today s/p blood transfusion x3 follow CBC Hypomagnesemia/hypophosphatemia/hyponatremia Likely secondary to D10 running, stopped Resolved with repletion Moderately malnourished BMI 19.8. poor appetite leading to hypoglycemia. s/p PPN, s/p D5W drip. Nutrition following Ensure added to diet requested regular diet so he has more options that he enjoys and now appetite improving s/p Walker catheter 06/11 as patient is requiring frequent blood draws and has very poor venous access Hypoglycemia. Resolved likely secondary to poor appetite and malnutrition. Episode of hypoglycemia 06/14 due to not eating breakfast as he was at dialysis. other castillo sugars have been stable, better appetite s/p D10 D50 for BS less than 60 Acute pancolitis secondary to cdiff Cdiff toxin and gene positive, recurrent ID>Stop zosyn. PO vanco (06/02) QID x 10 days then TID x 1 week, then daily x1 week, then MWF indefinitely given recurrence Concern for UTI. Resolved Complicated by Right-sided nephrostomy tube. CT Right percutaneous nephrostomy catheter in place air within the collecting system on the right probably iatrogenic infectious process or fistula can not be excluded nephro tube removed History VRE UTI>Initially treated with IV linezolid, urine cx negative seen by ID, rec no abx ESRD on HD MWF normally; TTS while in hospital Nephrology following no heparin for flushing Recent dialysis catheter line infection Blood cultures 03/28 positive for Klebsiella. Treated with meropenem during last admission blood cx negative Paroxysmal atrial fibrillation-rate controlled Hold Eliquis as above continue diltiazem, metoprolol and amiodarone Hypertension Diltiazem and metoprolol Sick sinus syndrome Pacemaker in place incidental findings of linear foreign bodies in duodenum. had egd in March with two clips applied in the duodenum DVT prophylaxis- SCPs Full code Requires ongoing inpatient stay for management of severe thrombocytopenia Quality Stroke Does the patient have a stroke diagnosis?: No VTE Prior VTE?: No VTE Risk Level:: Medical - moderate - high VTE Device Contraindication: N/A - Device Ordered VTE Drug Contraindication: Treatment Not Indicated
--- NOTE | 2024-06-18 18:11 | P.PNNP_ITS ---
Subjective Subjective Date of Service: 06/18/24 Principal diagnosis: ESRD Interval history: Seen and examine Physical Exam 2 Vital Signs: Vital Signs: Last Vital Signs Temp 98.8 F 06/18/24 16:00 Pulse 53 06/18/24 16:00 Resp 16 06/18/24 16:00 BP 141/63 H 06/18/24 16:00 Pulse Ox 99 06/18/24 16:00 O2 Del Method Room Air 06/18/24 16:00 O2 Flow Rate 1 06/18/24 11:06 BMI result Body Mass Index 19.8 Const: General: comfortable and no acute distress O rientation/consciousness: patient oriented x3 HEENT: Ears: hearing grossly normal bilaterally Resp: Effort & Inspection: normal respiratory effort and able to speak in complete sentences Auscultation: clear to auscultation bilaterally Cardio: Rate: regular rate Rhythm: regular rhythm Heart sounds: S1 normal heart sound present and S2 normal heart sound present Bruits: no abdominal aortic bruits, no carotid bruits, no femoral bruits and no renal bruits GI: Palpation (GI): No Abdominal aortic bruit present : Other: Right groin: C/D/I, no drainage or bleeding noted. Neuro: General: patient oriented x3 Cranial nerves: Yes CN's II-XII intact bilaterally and Yes Normal hearing present Sensory Exam: No Sensory deficit (Neuro) Extrem: Other: Left lower extremity: swollen from groin to the ankle, no erythema noted. Not painful to palpation. Objective Data Labs 06/18/24 07:08 06/18/24 07:08 Labs: Laboratory Results - last 24 hr 06/17/24 06/18/24 06/18/24 20:06 06:48 07:08 WBC 11.0 H RBC 2.55 L Hgb 8.0 L Hct 24.8 L MCV 97.3 MCH 31.4 MCHC 32.3 RDW 17.0 H Plt Count 53 L MPV 11.6 Immature Gran % (Auto) 2.2 H Neut % (Auto) 80.4 H Lymph % (Auto) 10.5 L [place] % (Auto) 6.8 Eos % (Auto) 0.0 Baso % (Auto) 0.1 Lymph # (Auto) 1.2 [place] # (Auto) 0.8 Eos # (Auto) 0.0 Baso # (Auto) 0.0 Abs Immat Gran (auto) 0.24 H Absolute Neuts (auto) 8.8 H Absolute Nucleated RBC 0.000 Nucleated RBC % (auto) 0.0 Smear Tech's Comments VERIFIED Sodium 138 Potassium 5.1 Chloride 105 Carbon Dioxide 30 H Anion Gap 8 L BUN 34 H Creatinine 2.65 H Estim Creat Clear Calc 20.0 Estimated GFR 24 POC Glucose 146 H 73 Random Glucose 89 Calcium 7.0 L 06/18/24 10:55 WBC RBC Hgb Hct MCV MCH MCHC RDW Plt Count MPV Immature Gran % (Auto) Neut % (Auto) Lymph % (Auto) [place] % (Auto) Eos % (Auto) Baso % (Auto) Lymph # (Auto) [place] # (Auto) Eos # (Auto) Baso # (Auto) Abs Immat Gran (auto) Absolute Neuts (auto) Absolute Nucleated RBC Nucleated RBC % (auto) Smear Tech's Comments Sodium Potassium Chloride Carbon Dioxide Anion Gap BUN Creatinine Estim Creat Clear Calc Estimated GFR POC Glucose 120 H Random Glucose Calcium Microbiology Microbiology Results: Microbiology 06/13/24 11:04 Blood - Venous Blood Culture - Final No growth after 5 days. 06/13/24 10:03 Blood - Venous Blood Culture - Final No growth after 5 days. 06/02/24 17:46 Blood - Central Line Blood Culture - Final No growth after 5 days. 06/02/24 10:35 Blood - Venous Blood Culture - Final No growth after 5 days. 06/02/24 10:34 Blood - Venous Blood Culture - Final No growth after 5 days. 06/02/24 Unknown Urine Other - Nephrostomy Urine Culture - Final Procedures Date of Service Date of Service: 06/18/24 Assessment & Plan Assessment and plan (1) ESRD (end stage renal disease) on dialysis: Status: Acute Plan ESRD on HD -- at [place] [facility] via PC Admitted with L Lower ext DVT/ Ward colitis sepsis Klebsiella bacteremia in the past s/p new dialysis tunnelled catheter- last admission CT abdomen unchanged c/w right-sided hydronephrosis, complex hemorrhagic exophytic lesion nephrogenic anemia Thrombocytopenia: cont heme eval REC Usual HD MWF bit now on TTS scheduel d/t scheduling issues TTS schedule in hospital - Can be changed to MWF when he gets discharged NO HEPARIN to prime machine OR TO LOCK PERMCATH - Will use NS - D/w HD nurse in detail Hematology f/u and TX of low PLTs; s/p IVC filterplacemnet Antibiotics as per medical team Cont ID, Heme and Urol and nutrtion consultants Avoid PIC lkine if possible HD in am and cont TTS for now Time Spent With Patient Time: Total time managing care of this patient today ____ minutes. Progress Note: Quality Stroke Does the patient have a stroke diagnosis?: No
[2024-06-18 19:42] LABS: Glucose, Whole Blood 111 mg/dL (60-115)
[2024-06-19 03:22] VITALS: BP 159/70; PULSE 66; RESP 18; TEMP 36.6; O2SAT 98
[2024-06-19 07:09] VITALS: BP 128/60; PULSE 65; RESP 18; TEMP 36.8; O2SAT 98
[2024-06-19 07:28] LABS: Glucose, Whole Blood 77 mg/dL (60-115)
--- NOTE | 2024-06-19 09:21 | P.PNNP_ITS ---
Subjective Subjective Date of Service: 06/16/24 Principal diagnosis: ESRD Interval history: Seen and examine Physical Exam 2 Vital Signs: Vital Signs: Last Vital Signs Temp 98.2 F 06/19/24 07:09 Pulse 65 06/19/24 07:09 Resp 18 06/19/24 07:09 BP 128/60 06/19/24 07:09 Pulse Ox 98 06/19/24 07:09 O2 Del Method Room Air 06/19/24 07:09 O2 Flow Rate 1 06/18/24 11:06 BMI result Body Mass Index 19.8 Const: General: comfortable and no acute distress O rientation/consciousness: patient oriented x3 HEENT: Ears: hearing grossly normal bilaterally Resp: Effort & Inspection: normal respiratory effort and able to speak in complete sentences Auscultation: clear to auscultation bilaterally Cardio: Rate: regular rate Rhythm: regular rhythm Heart sounds: S1 normal heart sound present and S2 normal heart sound present Bruits: no abdominal aortic bruits, no carotid bruits, no femoral bruits and no renal bruits GI: Palpation (GI): No Abdominal aortic bruit present : Other: Right groin: C/D/I, no drainage or bleeding noted. Neuro: General: patient oriented x3 Cranial nerves: Yes CN's II-XII intact bilaterally and Yes Normal hearing present Sensory Exam: No Sensory deficit (Neuro) Extrem: Other: Left lower extremity: swollen from groin to the ankle, no erythema noted. Not painful to palpation. Objective Data Labs 06/18/24 07:08 06/18/24 07:08 Labs: Laboratory Results - last 24 hr 06/18/24 06/18/24 06/19/24 10:55 19:39 07:24 POC Glucose 120 H 111 77 Microbiology Microbiology Results: Microbiology 06/13/24 11:04 Blood - Venous Blood Culture - Final No growth after 5 days. 06/13/24 10:03 Blood - Venous Blood Culture - Final No growth after 5 days. 06/02/24 17:46 Blood - Central Line Blood Culture - Final No growth after 5 days. 06/02/24 10:35 Blood - Venous Blood Culture - Final No growth after 5 days. 06/02/24 10:34 Blood - Venous Blood Culture - Final No growth after 5 days. 06/02/24 Unknown Urine Other - Nephrostomy Urine Culture - Final Procedures Date of Service Date of Service: 06/19/24 Assessment & Plan Assessment and plan (1) ESRD (end stage renal disease) on dialysis: Status: Acute Plan ESRD on HD at [place] [facility] via PC Admitted with L Lower ext DVT/ Ward colitis sepsis Klebsiella bacteremia in the past s/p new dialysis tunnelled catheter- last admission CT abdomen unchanged c/w right-sided hydronephrosis, complex hemorrhagic exophytic lesion nephrogenic anemia Thrombocytopenia: cont heme eval REC Usual HD MWF bit now on TTS scheduel d/t scheduling issues TTS schedule in hospital - Can be changed to MWF when he gets discharged NO HEPARIN to prime machine OR TO LOCK PERMCATH - Will use NS - D/w HD nurse in detail Hematology f/u and TX of low PLTs; s/p IVC filterplacemnet Antibiotics as per medical team Cont ID, Heme and Urol and nutrtion consultants Avoid PIC lkine if possible HD in am and cont TTS for now Time Spent With Patient Time: Total time managing care of this patient today ____ minutes. Progress Note: Quality Stroke Does the patient have a stroke diagnosis?: No
[2024-06-19] MEDS: Calcium Oyster Shell Elemental 500 MG TABLET PO (09:53)
[2024-06-19] MEDS: dilTIAZem HCL CD 240 MG CAP.ER.DEG PO (09:53)
[2024-06-19] MEDS: Cholestyramine (With Sugar) 4 GM POWD.PACK PO (09:53)
[2024-06-19] MEDS: Sucralfate Oral Suspension 1 GM/10 ML ORAL.SUSP PO ×2 (09:53→14:52)
[2024-06-19] MEDS: Folic Acid 1 MG TABLET PO (09:53)
[2024-06-19] MEDS: vancomycin HCL 125 MG CAPSULE PO ×2 (09:53→14:52)
[2024-06-19] MEDS: predniSONE 20 MG TABLET 40 MG PO (09:54)
[2024-06-19] MEDS: Ascorbic Acid 250 MG TABLET PO (09:54)
[2024-06-19] MEDS: Acetaminophen 325 MG TABLET 650 MG PO (09:54)
[2024-06-19] MEDS: Metoprolol Tartrate 25 MG TABLET PO (09:54)
[2024-06-19] MEDS: Magnesium Oxide 400 MG TABLET PO (09:54)
[2024-06-19] MEDS: Amiodarone HCL 200 MG TABLET PO (09:54)
--- NOTE | 2024-06-19 10:53 | PC.NURSE ---
Patient 's preferred pharmacy is [facility] in [place], [place] on [facility].
[2024-06-19 11:23] LABS: Glucose, Whole Blood 69 mg/dL (60-115)
[2024-06-19 11:34] VITALS: BP 130/64; PULSE 64; RESP 18; TEMP 37.2; O2SAT 98
[2024-06-19] MEDS: Glucose Gel 15 GM GEL..GRAM. PO (11:37)
--- NOTE | 2024-06-19 12:02 | MHC.CM.PN ---
Patient has been medically cleared for dc to home today with services. Patient is active with [facility], who has been notified of today's dc (he could not dc yesterday until his Walker was removed this morning).
--- NOTE | 2024-06-19 12:13 | P.PNNP_ITS ---
Subjective Subjective Date of Service: 06/19/24 Principal diagnosis: ESRD Interval history: Seen and examine Physical Exam 2 Vital Signs: Vital Signs: Last Vital Signs Temp 98.9 F 06/19/24 11:34 Pulse 64 06/19/24 11:34 Resp 18 06/19/24 11:34 BP 130/64 06/19/24 11:34 Pulse Ox 98 06/19/24 11:34 O2 Del Method Room Air 06/19/24 11:34 O2 Flow Rate 1 06/18/24 11:06 BMI result Body Mass Index 19.8 Const: General: comfortable and no acute distress O rientation/consciousness: patient oriented x3 HEENT: Ears: hearing grossly normal bilaterally Resp: Effort & Inspection: normal respiratory effort and able to speak in complete sentences Auscultation: clear to auscultation bilaterally Cardio: Rate: regular rate Rhythm: regular rhythm Heart sounds: S1 normal heart sound present and S2 normal heart sound present Bruits: no abdominal aortic bruits, no carotid bruits, no femoral bruits and no renal bruits GI: Palpation (GI): No Abdominal aortic bruit present : Other: Right groin: C/D/I, no drainage or bleeding noted. Neuro: General: patient oriented x3 Cranial nerves: Yes CN's II-XII intact bilaterally and Yes Normal hearing present Sensory Exam: No Sensory deficit (Neuro) Extrem: Other: Left lower extremity: swollen from groin to the ankle, no erythema noted. Not painful to palpation. Objective Data Labs 06/18/24 07:08 06/18/24 07:08 Labs: Laboratory Results - last 24 hr 06/18/24 06/19/24 06/19/24 19:39 07:24 11:20 POC Glucose 111 77 69 Microbiology Microbiology Results: Microbiology 06/13/24 11:04 Blood - Venous Blood Culture - Final No growth after 5 days. 06/13/24 10:03 Blood - Venous Blood Culture - Final No growth after 5 days. 06/02/24 17:46 Blood - Central Line Blood Culture - Final No growth after 5 days. 06/02/24 10:35 Blood - Venous Blood Culture - Final No growth after 5 days. 06/02/24 10:34 Blood - Venous Blood Culture - Final No growth after 5 days. 06/02/24 Unknown Urine Other - Nephrostomy Urine Culture - Final Procedures Date of Service Date of Service: 06/19/24 Assessment & Plan Assessment and plan (1) ESRD (end stage renal disease) on dialysis: Status: Acute Plan ESRD on HD at [place] [facility] via PC Admitted with L Lower ext DVT/ Ward colitis sepsis Klebsiella bacteremia in the past s/p new dialysis tunnelled catheter- last admission CT abdomen unchanged c/w right-sided hydronephrosis, complex hemorrhagic exophytic lesion nephrogenic anemia Thrombocytopenia: cont heme eval REC Usual HD MWF but now on TTS scheduel d/t scheduling issues TTS schedule in hospital - Can be changed to MWF when he gets discharged NO HEPARIN to prime machine OR TO LOCK PERMCATH - Will use NS - D/w HD nurse in detail Hematology f/u and TX of low PLTs; s/p IVC filterplacemnet Antibiotics as per medical team Cont ID, Heme and Urol and nutrtion consultants Avoid PIC lkine if possible HD today scheduled Time Spent With Patient Time: Total time managing care of this patient today ____ minutes. Progress Note: Quality Stroke Does the patient have a stroke diagnosis?: No
--- NOTE | 2024-06-19 12:33 | MHC.CM.PN ---
CM spoke with /[place] @ [phone], who confirmed that she will be transporting Patient to home today at 3 PM (yesterday an ambulance was arranged for transport, but per fellow CM, Patient family refused it r/t the cost and decided to transport themselves). RN is aware.
[2024-06-19 12:59] LABS: Glucose, Whole Blood 108 mg/dL (60-115)
[2024-06-19 15:32] VITALS: BP 137/64; PULSE 60; RESP 18; TEMP 36.9; O2SAT 99
[2024-06-21 08:28] LABS: Vitamin B1 36 nmol/L (8-30)
== END 2024-06-19 16:20 | disposition home health service (06) | DRG 698 ==
LOC: HO.ED 12:50 → HO.EDOVER 13:56 → HO.S3 14:06 → HO.IMC 06-08 08:25 → HO.S3 06-10 18:26 → HO.IMC 06-13 13:39
PROVIDERS: Family Medicine; Hospitalist; Internal Medicine; Nurse Practitioner Acute Care; Student in an Organized Health Care Education/Training Program; Surgery Vascular Surgery; Admitting Provider Physician Assistant; Emergency Provider Emergency Medicine; PCP Internal Medicine; Visit Provider Physician Assistant Medical
PROC: 06H03DZ Insertion of Intraluminal Device into Inferior Vena Cava, Percutaneous Approach (ICD-10-PCS; principal; 2024-06-04 07:30)
PROC: 0JH63XZ Insertion of Tunneled Vascular Access Device into Chest Subcutaneous Tissue and Fascia, Percutaneous Approach (ICD-10-PCS; principal; 2024-06-11 14:00)
DX: T83.512A Infection and inflammatory reaction due to nephrostomy catheter, initial encounter (principal); J18.9 Pneumonia, unspecified organism; N18.6 End stage renal disease; J91.8 Pleural effusion in other conditions classified elsewhere; I12.0 Hypertensive chronic kidney disease with stage 5 chronic kidney disease or end stage renal disease; A04.71 Enterocolitis due to Clostridium difficile, recurrent; I82.412 Acute embolism and thrombosis of left femoral vein; I82.432 Acute embolism and thrombosis of left popliteal vein; N13.6 Pyonephrosis; R64 Cachexia; Z68.1 Body mass index [BMI] 19.9 or less, adult; E87.1 Hypo-osmolality and hyponatremia; E44.0 Moderate protein-calorie malnutrition; D62 Acute posthemorrhagic anemia; K62.5 Hemorrhage of anus and rectum; I48.0 Paroxysmal atrial fibrillation; F10.21 Alcohol dependence, in remission; E83.42 Hypomagnesemia; Z99.2 Dependence on renal dialysis; E16.2 Hypoglycemia, unspecified; E83.39 Other disorders of phosphorus metabolism; N40.0 Benign prostatic hyperplasia without lower urinary tract symptoms; D69.59 Other secondary thrombocytopenia; D63.1 Anemia in chronic kidney disease; I49.5 Sick sinus syndrome; Z85.048 Personal history of other malignant neoplasm of rectum, rectosigmoid junction, and anus; Z95.0 Presence of cardiac pacemaker; Z87.891 Personal history of nicotine dependence; Z79.899 Other long term (current) drug therapy
CPT/HCPCS: 36415; 36558; 36589; 37191; 50389; 71045; 71250; 74176; 76937; 80048; 80053; 80076; 81001; 82040; 82272; 82533; 82607; 82746; 82947; 83010; 83605; 83615; 83735; 84100; 84145; 84425; 84478; 85007; 85025; 85027; 85045; 85379; 85384; 85610; 85652; 85730; 86022; 86140; 86850; 86880; 86900; 86901; 86923; 87040; 87086; 87324; 87493; 87507; 90999; 93971; 97116; 97162; 97530; 99285; C1751; C1769; C1880; J0692; J0883; J1642; J1644; J1836; J1938; J2020; J2470; J2543; J3371; J3475; J7120; P9016; P9047; P9073; Q9967

== ENCOUNTER → 2024-06-02 10:12 | Outpatient (BNV) | payer OTHER, SELFPAY | PROVIDERS: Emergency Provider Emergency Medicine; Visit Provider Radiology Diagnostic Radiology | DX: Z93.6 Other artificial openings of urinary tract status (principal); D49.512 Neoplasm of unspecified behavior of left kidney; J84.89 Other specified interstitial pulmonary diseases; I82.412 Acute embolism and thrombosis of left femoral vein; I82.432 Acute embolism and thrombosis of left popliteal vein; J90 Pleural effusion, not elsewhere classified | CPT/HCPCS: 71045; 74176; 93971 ==

== ENCOUNTER 2024-06-02 13:55 | Outpatient (BNV) | payer OTHER, SELFPAY | END 2024-06-11 15:07 | PROVIDERS: Admitting Provider Physician Assistant; Emergency Provider Emergency Medicine; PCP Internal Medicine; Visit Provider Student in an Organized Health Care Education/Training Program | DX: N18.6 End stage renal disease (principal); Z99.2 Dependence on renal dialysis | CPT/HCPCS: 36558; 76937; 77001 ==

== ENCOUNTER 2024-06-02 13:55 | Outpatient (BNV) | payer OTHER, SELFPAY | END 2024-06-04 14:25 | PROVIDERS: Admitting Provider Physician Assistant; Emergency Provider Emergency Medicine; PCP Internal Medicine; Visit Provider Radiology Diagnostic Radiology | DX: I73.9 Peripheral vascular disease, unspecified (principal); Z79.01 Long term (current) use of anticoagulants | CPT/HCPCS: 50389; 93971 ==

== ENCOUNTER 2024-06-02 13:55 | Outpatient (BNV) | payer OTHER, SELFPAY | END 2024-06-18 07:30 | PROVIDERS: Admitting Provider Physician Assistant; Emergency Provider Emergency Medicine; PCP Internal Medicine; Visit Provider Radiology Diagnostic Radiology | DX: Z45.2 Encounter for adjustment and management of vascular access device (principal) | CPT/HCPCS: 36589 ==

== ENCOUNTER 2024-06-02 13:55 | Outpatient (BNV) | payer OTHER, SELFPAY | END 2024-06-13 09:18 | PROVIDERS: Admitting Provider Physician Assistant; Emergency Provider Emergency Medicine; PCP Internal Medicine; Visit Provider Radiology Diagnostic Radiology | DX: J90 Pleural effusion, not elsewhere classified (principal); R91.8 Other nonspecific abnormal finding of lung field; I50.810 Right heart failure, unspecified; D41.02 Neoplasm of uncertain behavior of left kidney | CPT/HCPCS: 71045; 71250 ==

== ENCOUNTER → 2024-06-02 13:55 | Outpatient (BNV) | payer OTHER, SELFPAY | PROVIDERS: Admitting Provider Physician Assistant; Emergency Provider Emergency Medicine; Visit Provider Physician Assistant | DX: A04.71 Enterocolitis due to Clostridium difficile, recurrent (principal); D69.6 Thrombocytopenia, unspecified; N18.6 End stage renal disease; Z99.2 Dependence on renal dialysis; N39.0 Urinary tract infection, site not specified | CPT/HCPCS: 99223; 99232; 99233 ==

== ENCOUNTER → 2024-06-02 13:55 | Outpatient (BNV) | payer OTHER, SELFPAY | PROVIDERS: Admitting Provider Physician Assistant; Emergency Provider Emergency Medicine; PCP Internal Medicine; Visit Provider Internal Medicine Gastroenterology | DX: D62 Acute posthemorrhagic anemia (principal); K92.1 Melena | CPT/HCPCS: 99223 ==

== ENCOUNTER → 2024-06-02 13:55 | Outpatient (BNV) | payer OTHER, SELFPAY | PROVIDERS: Admitting Provider Physician Assistant; Emergency Provider Emergency Medicine; PCP Internal Medicine; Visit Provider Internal Medicine | DX: N18.6 End stage renal disease (principal); Z99.2 Dependence on renal dialysis; K52.9 Noninfective gastroenteritis and colitis, unspecified; A04.71 Enterocolitis due to Clostridium difficile, recurrent | CPT/HCPCS: 99222 ==

== ENCOUNTER → 2024-06-02 13:55 | Outpatient (BNV) | payer OTHER, SELFPAY | PROVIDERS: Admitting Provider Physician Assistant; Emergency Provider Emergency Medicine; PCP Internal Medicine; Visit Provider Internal Medicine | DX: I82.432 Acute embolism and thrombosis of left popliteal vein (principal); I82.412 Acute embolism and thrombosis of left femoral vein; I82.462 Acute embolism and thrombosis of left calf muscular vein | CPT/HCPCS: 99222; 99232 ==

== ENCOUNTER → 2024-06-02 13:55 | Outpatient (BNV) | payer OTHER, SELFPAY | PROVIDERS: Admitting Provider Physician Assistant; Emergency Provider Emergency Medicine; PCP Internal Medicine; Visit Provider Urology | DX: N13.5 Crossing vessel and stricture of ureter without hydronephrosis (principal) | CPT/HCPCS: 99222 ==

== ENCOUNTER → 2024-06-02 13:55 | Outpatient (BNV) | payer OTHER, SELFPAY | PROVIDERS: Admitting Provider Physician Assistant; Emergency Provider Emergency Medicine; PCP Internal Medicine; Visit Provider Physician Assistant Surgical | DX: I82.402 Acute embolism and thrombosis of unspecified deep veins of left lower extremity (principal) | CPT/HCPCS: 37191; 99222 ==

== ENCOUNTER → 2024-06-23 23:59 | Outpatient (BNV) | payer OTHER, SELFPAY ==
--- NOTE | 2024-06-24 09:41 | A.OFFVIS_ITS ---
Intake Visit Reasons: Remote device check- [facility] Allergies No Known Allergies [NKA] Allergy (Mild, Verified 06/02/24 09:42) NOT APPLICABLE [facility] Medical History (Updated 06/24/24 @ 09:43 by Randy Melgar MD) Pacemaker UTI (urinary tract infection) Ileus C. difficile colitis Acute renal failure BPH (benign prostatic hyperplasia) Sinus bradycardia Recto-vesical fistula End stage renal disease Sick sinus syndrome Postoperative hematoma involving digestive system following digestive system procedure Aftercare following left shoulder joint replacement surgery OA (osteoarthritis) Borderline hyperlipidemia Obesity HTN (hypertension) EtOH dependence Mild cognitive impairment Inhibited sex excitement Atrial fibrillation Cancer of kidney High cholesterol Hypertension Surgical History Rectal carcinoma Malignant neoplasm of rectum Rectal mass Encounter for interrogation of cardiac pacemaker Atrial fibrillation with rapid ventricular response Family History Mother Heart problem Social History Household Members: Family Housing: House Do you presently have visiting nurse or other home services: No Alcohol intake: unknown Comment: PATIENT BEDBOUND AT THIS TIME Patient Tobacco Use Status: Former Tobacco user Tobacco use type: Cigarette e-Cigarette/Vaping Use: Never Used Second Hand Smoke Exposure: No Advance Directives Date on File: 11/29/22 service: No Office Procedures Cardiac Device Check Cardiac Device Check Details: Date of service- 06/23/2024 ; Battery life >7 years; normal lead parameters; AP 59%; 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 Overall normal device function. [id number] Cardiac Device Interrogation, pacemaker Procedure code (CPT) selection complete Assessment & Plan Assessment & Plan (1) Pacemaker: Code(s): Z95.0 - Presence of cardiac pacemaker Category: Medical (2) Atrial fibrillation: Code(s): I48.91 - Unspecified atrial fibrillation Category: Medical Plan x Coding Level of Care Code Procedure Only Diagnoses Pacemaker Z95.0 Atrial fibrillation I48.91 CPT Codes Cardiac Device Check - Cardiac Device 12: [id number] Cardiac Device Interrogation, pacemaker ([id number])
== END ==
PROVIDERS: PCP Internal Medicine; Visit Provider Internal Medicine
DX: I48.91 Unspecified atrial fibrillation (principal); Z95.0 Presence of cardiac pacemaker
CPT/HCPCS: 93294

== ENCOUNTER 2024-07-08 14:20 | Outpatient (AMB) | payer OTHER, SELFPAY ==
--- OUTSIDE RECORDS SUMMARY | 2024-07-08 14:27 | XMS_ITS | Encounter Summary ---
Author Organization [employer] Address [address] [place] [address] Care Team Providers Care Material Control Associate Name Role Phone Naty Harvey MD Primary Care Provider [phone] Encounter Details Date Type Department Care Team (Late st Contact Info) Description 04/21/[address] [facility] - Main Lab [address] [place] [address] Naty Harvey MD [address] [place] [phone] Essential (primary) hypertension; Anemia, unspecified; Enterocolitis due [...] mmol/L LAB CHEMISTRY METHOD 04/22/2024 9:24 AM [facility] Potassium 3.4(L) 3.5 - 5.5 mmol/L LAB CHEMISTRY METHOD 04/22/2024 9:24 AM [facility] Chloride 110 96 - 110 mmol/L LAB CHEMISTRY METHOD 04/22/2024 9:24 AM [facility] CO2 27 21 - 32 mmol/L LAB CHEMISTRY METHOD 04/22/2024 9:24 AM [facility] Anion Gap 8 3 - 11 LAB CHEMISTRY METHOD 04/22/2024 9:24 AM [facility] Glucose 60(L) 70 - 100 mg/dL LAB CHEMISTRY METHOD 04/22/2024 9:24 AM [facility] BUN 21 5 - 25 mg/dL LAB CHEMISTRY METHOD 04/22/2024 9:24 AM [facility] Comment:Results verified by repeat testing Creatinine 3.41(H) 0.70 - 1.30 mg/dL LAB CHEMISTRY METHOD 04/22/2024 9:24 AM [facility] Comment:Results verified by repeat testing eGFR 18(L) >=60 mL/min/1. 73m2 LAB CHEMISTRY METHOD 04/22/2024 9:24 AM [facility] Comment:Calculation based on the??Chronic Kidney Disease Epidemiology Collaboration (CKD-EPI) equation refit??without adjustment for race. BUN/Creatinine Ratio 6.2 LAB CHEMISTRY METHOD 04/22/2024 9:24 AM [facility] Calcium 6.6(L) 8.5 - 10.5 mg/dL LAB CHEMISTRY METHOD 04/22/2024 9:24 AM [facility] Blood Venous blood specimen / Unknown Venipuncture / Unknown 04/22/2024 5:47 AM EDT 04/22/2024 7:46 AM EDT Naty Harvey MD LAB BLOOD ORDERABLES Final Resul t [facility] [address] [place] [address], documented in this encounter Visit Diagnoses Diagnosis Essential (primary) hypertension Unspecified essential hypertension Anemia, unspecified Enterocolitis due to Clostridium difficile, not specified as recurrent documented in this encounter Care Teams Material Control Associate Relationship Specialty Start Date End Date Naty Harvey MD [address] [place] [phone] PCP - General Hospitalist Medicine 04/19/24 documented as of this encounter
--- NOTE | 2024-07-08 14:42 | A.OFFVIS_ITS ---
Vital Signs 07/08/24 14:46 BP 130/72 Blood Pressure Location Rt brachial Position Sitting Pulse 80 Pulse Source Pulse Oximeter Pulse Oximetry (%) 97 Oxygen Delivery Method Room Air Intake Visit Reasons: FU After Hospital Intake Note: Patient presents for follow up Allergies No Known Allergies [NKA] Allergy (Mild, Verified 07/08/24 14:45) NOT APPLICABLE Medication List - Last Reconciled 07/08/24 by Gerry Paz NP amiodarone 200 mg PO DAILY ammonium lactate 12% 1 appl topical DAILY PRN cholestyramine (with sugar) 4 gram 1 ea PO DAILY diltiazem HCl CD 240 mg PO DAILY metoprolol tartrate 25 mg See Protocol PO DAILY nystatin 400,000 units (4 mL) PO QID 10 days pantoprazole 20 mg PO DAILY@0630 prednisone See Taper mg PO DIRECTED vancomycin 125 mg PO BID walker As directed HPI Comments Details: This is a 78-year-old male patient coming in for a hospital discharge follow-up. Patient with a history of AFib, chronic thrombocytopenia, sick sinus syndrome status post pacemaker placement, and ESRD on HD MWF Patient has been frequently in and out of the hospital. Recently pt was in for Cdiff and GI bleed. Prior to this, pt was in for GI bleed and dialysis catheter line infection. Due to his recurrent bleeds and ongoing thrombocytopenia, pt's Eliquis has been held. Today, he reports doing well over all and denies any cardiac symptoms including exertional chest pain, SOB, palpitations, fatigue, dizziness, orthopnea, PND, leg edema, presyncope, or syncope. Pt denies any acute bleeds or falls since discharge. Pt reports he has been complaint with all his precribed medications. [facility] Medical History (Updated 07/08/24 @ 16:56 by Gerry Pza NP) Sick sinus syndrome ESRD (end stage renal disease) on dialysis Pacemaker UTI (urinary tract infection) Ileus C. difficile colitis Acute renal failure BPH (benign prostatic hyperplasia) Sinus bradycardia Recto-vesical fistula End stage renal disease Postoperative hematoma involving digestive system following digestive system procedure Aftercare following left shoulder joint replacement surgery OA (osteoarthritis) Borderline hyperlipidemia Obesity HTN (hypertension) EtOH dependence Mild cognitive impairment Inhibited sex excitement Atrial fibrillation Cancer of kidney High cholesterol Hypertension Surgical History Rectal carcinoma Malignant neoplasm of rectum Rectal mass Encounter for interrogation of cardiac pacemaker Atrial fibrillation with rapid ventricular response Family History Mother Heart problem Social History Household Members: Family Housing: House Do you presently have visiting nurse or other home services: No Alcohol intake: unknown Comment: PATIENT BEDBOUND AT THIS TIME Patient Tobacco Use Status: Former Tobacco user Tobacco use type: Cigarette e-Cigarette/Vaping Use: Never Used Second Hand Smoke Exposure: No Advance Directives Date on File: 11/29/22 service: No Physical Exam Vital Signs: Last Vital Signs Pulse 80 07/08/24 14:46 BP 130/72 07/08/24 14:46 Pulse Ox 97 07/08/24 14:46 Oxygen Delivery Method Room Air 07/08/24 14:46 Const General: cooperative, healthy appearing, comfortable and no acute distress Orientation/consciousness: patient oriented x3 HEENT Head: Yes normal to inspection Neck Neck: Yes normal visual inspection, Yes trachea midline and Yes supple Chest Chest palpation & inspection: normal inspection of the chest Resp Effort & Inspection: normal respiratory effort Auscultation: clear to auscultation bilaterally, no crackles, no rales, no rhonchi and no wheezes Cardio Jugular venous distension: no JVD Palpation: normal PMI Rate: regular rate Rhythm: regular rhythm Heart sounds: S1 normal heart sound present, S2 normal heart sound present, no click, no gallops, no murmurs and no rubs Peripheral pulses: Peripheral pulses 2+ throughout GI Inspection: Yes normal to inspection Palpation (GI): Soft to palpation Auscultation: normal bowel sounds Skin Other: Dialysis catheter on his left chest General skin exam: no rashes or lesions noted Neuro General: patient oriented x3 Extrem General: Yes normal to inspection, No no pedal edema and No calf tenderness Psych Appearance: grossly normal Mental Status: mental status grossly normal Speech and movement: Normal speech and movement present Assessment & Plan Assessment & Plan (1) Atrial fibrillation: Code(s): I48.91 - Unspecified atrial fibrillation Category: Medical Plan: History of paroxysmal AFib. Remote monitoring showed patient with high V rates. AF burden at 3.1%. Refusing AV node ablation. Patient's Eliquis has been discontinued due to his recurrent GI bleeds as well as thrombocytopenia. Rec ommended Watchman procedure however, patient refusing this as well. Patient understands his risks for stroke. Continue amiodarone, diltiazem, and metoprolol therapy for rate and rhythm control. We will monitor labs periodically. (2) Pacemaker: Code(s): Z95.0 - Presence of cardiac pacemaker Category: Medical Plan: [employer] dual-chamber pacemaker in place. Battery life at 7.8 years. We will continue to follow this remotely. (3) Sick sinus syndrome: Code(s): I49.5 - Sick sinus syndrome Category: Medical Plan: Status post pacemaker. As above. (4) Hypertension: Code(s): I10 - Essential (primary) hypertension Category: Medical Plan: Blood pressure is well-controlled. Continue current regimen. Advised monitoring blood pressures at home with an ideal goal less than 130/80. (5) Hospital discharge follow-up: Code(s): Z09 - Encounter for follow-up examination after completed treatment for conditions other than malignant neoplasm Plan: As above. Advised heart healthy diet, regular exercise as tolerated, med compliance, and management of vascular risk factors. Follow up in 4 months, sooner if needed. In the interim, patient will call the office with any concerns or change in symptoms. This note was generated using voice recognition software. While every effort has been made to ensure accuracy and proper vascular ultrasound technologist, there may be occasional errors that could affect the content or meaning of the described symptoms. Orders: Orders TSH reflex Free T4 Today I48.91 - Unspecified atrial fibrillation Basic Metabolic Panel Today I48.91 - Unspecified atrial fibrillation Medications: New metoprolol succinate ER 50 mg PO DAILY 90 tabs 3RF Coding Level of Care Code Est Pt Level 4 (73787) Complex EM visit Add On G2211 Diagnoses Atrial fibrillation I48.91 Pacemaker Z95.0 Sick sinus syndrome I49.5 Hypertension I10 Hospital discharge follow-up Z09 Time Spent (min) 38 Comment Time spent in reviewing the chart, test results, assessment, counseling and documentation.
[2024-07-08 14:46] VITALS: BP 130/72; PULSE 80; O2SAT 97
== END 2024-07-08 15:15 | disposition home or self-care (01) ==
PROVIDERS: PCP Internal Medicine
DX: I48.91 Unspecified atrial fibrillation (principal); Z95.0 Presence of cardiac pacemaker; I49.5 Sick sinus syndrome; I10 Essential (primary) hypertension; Z09 Encounter for follow-up examination after completed treatment for conditions other than malignant neoplasm
CPT/HCPCS: 99214; G2211

== ENCOUNTER → 2024-07-08 14:20 | Outpatient (BNVA) | payer OTHER, SELFPAY | PROVIDERS: PCP Internal Medicine | DX: I48.91 Unspecified atrial fibrillation (principal); I49.5 Sick sinus syndrome; I10 Essential (primary) hypertension; Z09 Encounter for follow-up examination after completed treatment for conditions other than malignant neoplasm; Z95.0 Presence of cardiac pacemaker | CPT/HCPCS: 99212 ==

== ENCOUNTER 2024-08-20 15:39 | Outpatient (AMB) | payer OTHER, SELFPAY ==
--- OUTSIDE RECORDS SUMMARY | 2024-08-20 15:41 | XMS_ITS | Encounter Summary ---
Author Organization [employer] Address [address] [place] [address] Care Team Providers Care Creative Writer Name Role Phone Naty Harvey MD Primary Care Provider [phone] Encounter Details Date Type Department Care Team (Late st Contact Info) Description 04/21/2024 Lab Requisition [facility] - Main Lab [address] [place] [address] Naty Harvey MD [address] [place] [phone] Essential (primary) hypertension; Anemia, unspecified; Enterocolitis due [...] mmol/L LAB CHEMISTRY METHOD 04/22/2024 9:24 AM [facility] Potassium 3.4(L) 3.5 - 5.5 mmol/L LAB CHEMISTRY METHOD 04/22/2024 9:24 AM [facility] Chloride 110 96 - 110 mmol/L LAB CHEMISTRY METHOD 04/22/2024 9:24 AM [facility] CO2 27 21 - 32 mmol/L LAB CHEMISTRY METHOD 04/22/2024 9:24 AM [facility] Anion Gap 8 3 - 11 LAB CHEMISTRY METHOD 04/22/2024 9:24 AM [facility] Glucose 60(L) 70 - 100 mg/dL LAB CHEMISTRY METHOD 04/22/2024 9:24 AM [facility] BUN 21 5 - 25 mg/dL LAB CHEMISTRY METHOD 04/22/2024 9:24 AM [facility] Comment:Results verified by repeat testing Creatinine 3.41(H) 0.70 - 1.30 mg/dL LAB CHEMISTRY METHOD 04/22/2024 9:24 AM [facility] Comment:Results verified by repeat testing eGFR 18(L) >=60 mL/min/1. 73m2 LAB CHEMISTRY METHOD 04/22/2024 9:24 AM [facility] Comment:Calculation based on the Chronic Kidney Disease Epidemiology Collaboration (CKD-EPI) equation refit without adjustment for race. BUN/Creatinine Ratio 6.2 LAB CHEMISTRY METHOD 04/22/2024 9:24 AM [facility] Calcium 6.6(L) 8.5 - 10.5 mg/dL LAB CHEMISTRY METHOD 04/22/2024 9:24 AM [facility] Blood Venous blood specimen / Unknown Venipuncture / Unknown 04/22/2024 5:47 AM EDT 04/22/2024 7:46 AM EDT us Naty Harvey MD LAB BLOOD ORDERABLES Final Resul t [facility] [address] [place] [address], documented in this encounter Visit Diagnoses Diagnosis Essential (primary) hypertension Unspecified essential hypertension Anemia, unspecified Enterocolitis due to Clostridium difficile, not specified as recurrent documented in this encounter Care Teams Creative Writer Relationship Specialty Start Date End Date Naty Harvey MD [address] [place] [address] PCP - General Hospitalist Medicine 04/19/24 documented as of this encounter
--- OUTSIDE RECORDS SUMMARY | 2024-08-20 15:41 | XMS_ITS | Encounter Summary ---
Author Organization [facility], Address [address] [place] [address] Phone Care Team Providers Care Clamshell Operator Name Role Phone Joao Duncan MD Primary Care Provider [phone] Encounter Details Date Type Department Care Team (Late st Contact Info) Description 07/23/2024 Office Communication [facility] [address] [place] [phone] Jacob Guzman MD [address] [place] [phone] Social History Tobacco Use Types Packs/Day Years [...] as of this encounter Plan of Treatment Upcoming Encounters Date Type Department Care Team (Late st Contact Info) Description 08/28/2024 2:00 PM EDT Procedure visit [facility] - [facility] [address] [place] [phone] documented as of this encounter Visit Diagnoses Not on filedocumented in this encounter Care Teams Clamshell Operator Relationship Specialty Start Date End Date Joao Duncan MD [address] [place] [address] PCP - General Internal Medicine 12/20/22 documented as of this encounter
--- NOTE | 2024-08-25 13:11 | MHC.AM.SUB ---
Intake Visit Reasons: [facility]/ Allergies No Known Allergies (NKA) Allergy (Mild, Verified 08/22/24 08:52) NOT APPLICABLE HPI HPI [facility] Reffer/: Details: He reports taking 125 mg po Vancomycin every ,,Sunday. He has no concerns and reports no diarrhea. Review of Systems Const All systems reviewed & are unremarkable except as noted in HPI and below Physical Exam Const General: cooperative Orientation/consciousness: patient oriented x3 HEENT Head: Yes normal to inspection Mouth: Normal oral and palatal mucosa present Eyes General: appearance normal, both eyes and all related structures Pupils: Equal, round and reactive pupils present Resp Effort & Inspection: normal respiratory effort Cardio Rate: regular rate Rhythm: regular rhythm GI Palpation (GI): Soft to palpation and nontender General: Yes no CVA tenderness Back/Spine/Pelvis Back: no CVA tenderness Skin General skin exam: no rashes or lesions noted Neuro General: patient oriented x3 Cranial nerves: Yes CN's II-XII intact bilaterally and Yes Equal, round and reactive pupils present Extrem General: Yes normal to inspection Psych Appearance: grossly normal [facility] Medical History Sick sinus syndrome ESRD (end stage renal disease) on dialysis Pacemaker UTI (urinary tract infection) Ileus C. difficile colitis Acute renal failure BPH (benign prostatic hyperplasia) Sinus bradycardia Recto-vesical fistula End stage renal disease Postoperative hematoma involving digestive system following digestive system procedure Aftercare following left shoulder joint replacement surgery OA (osteoarthritis) Borderline hyperlipidemia Obesity HTN (hypertension) EtOH dependence Mild cognitive impairment Inhibited sex excitement Atrial fibrillation Cancer of kidney High cholesterol Hypertension Surgical History Rectal carcinoma Malignant neoplasm of rectum Rectal mass Encounter for interrogation of cardiac pacemaker Atrial fibrillation with rapid ventricular response Family History Mother Heart problem Social History Household Members: Spouse Housing: House Do you presently have visiting nurse or other home services: Yes Unable to assess alcohol history related to: Unable to respond Alcohol intake: unknown Comment: PATIENT BEDBOUND AT THIS TIME Patient Tobacco Use Status: Former Tobacco user Tobacco use type: Cigarette e-Cigarette/Vaping Use: Never Used Second Hand Smoke Exposure: No Advance Directives Date on File: 11/29/22 service: Yes Assessment & Plan Assessment & Plan (1) Recurrent Clostridioides difficile diarrhea: Comment: He has not had any episodes Code(s): A04.71 - Enterocolitis due to Clostridium difficile, recurrent Category: Medical Plan Would continue po Vancomycin 125 mg three times a week. See in six months. Medications: New vancomycin 125 mg PO .,,Sun 30 days 13 caps 5RF
== END 2024-08-20 16:43 | disposition home or self-care (01) ==
LOC: HO.HCC 15:39
PROVIDERS: PCP Internal Medicine; Visit Provider Internal Medicine
DX: A04.71 Enterocolitis due to Clostridium difficile, recurrent (principal)
CPT/HCPCS: 99213

== ENCOUNTER → 2024-08-20 15:39 | Outpatient (BNVA) | payer OTHER, SELFPAY | PROVIDERS: PCP Internal Medicine; Visit Provider Internal Medicine | DX: A04.71 Enterocolitis due to Clostridium difficile, recurrent (principal) | CPT/HCPCS: 99212 ==

== ENCOUNTER 2024-08-22 08:36 | Inpatient (IN) | payer OTHER, SELFPAY ==
[2024-08-22] VITALS (15 sets, daily range): BP systolic 103–117; BP diastolic 37–64; PULSE 60–89; RESP 11–24; TEMP 36.1–37.1; O2SAT 94–99; BMI 17.6
--- NOTE | 2024-08-22 | ECG_ITS ---
Test Reason : CHEST PAIN Blood Pressure : */* mmHG Vent. Rate : 85 BPM Atrial Rate : 85 BPM P-R Int : 150 ms QRS Dur : 100 ms QT Int : 410 ms P-R-T Axes : 49 -1 50 degrees QTcB Int : 487 ms Normal sinus rhythm Cannot rule out Anterior infarct , age undetermined Abnormal ECG When compared with ECG of 25-Mar-2024 02:53, Sinus rhythm has replaced Electronic atrial pacemaker Nonspecific T wave abnormality no longer evident in Inferior leads Referred By: Generic ED Physician Electronically Signed By: Jarred Flores
--- NOTE | ~2024-08-22 | CT_ITS ---
EXAMINATION: CT ANGIOGRAM CHEST CLINICAL INFORMATION: History of DVT, chest pain. COMPARISON: CT chest 06/13/2024. CT abdomen pelvis 06/02/2024, and dating back to 07/06/2022. TECHNIQUE: Multiple axial images were obtained through the chest after the administration of 50 mL of Omnipaque 350 intravenous contrast. Extensive vascular post-processing including two-dimensional and three-dimensional reformatted images were created and reviewed on an independent workstation. This CT examination was performed using dose optimization techniques as appropriate, variously including the following: *Automated exposure control *Adjustment of mA and/or kV according to patient size (this includes techniques or standardized protocols for targeted exams where dose is matched to indication/reason for exam; i.e. extremities or head) *Use of iterative reconstruction technique FINDINGS: VASCULAR: There is no evidence of pulmonary embolus. Main pulmonary artery is mildly prominent, suggesting possible increased pulmonary pressures. The aorta is normal in caliber and course with mild to moderate atheromatous calcification. There is no aneurysm or acute aortic syndrome. There is top normal cardiac size. There are pacer leads present in the right atrium and right ventricle. No pericardial effusion. There are heavy coronary calcifications present. The great vessels branch normally and are somewhat tortuous although patent. LUNGS: There is moderate centrilobular and paraseptal emphysema. There is a small layering left effusion with associated mild passive atelectasis. There are no consolidations or abnormal groundglass opacities. There is a 4 mm nodule along the minor fissure, consistent with an intrapulmonary lymph node. There are no suspicious pulmonary nodules present. Small airways appear normal. MEDIASTINUM: Mild Global enlargement of the thyroid with a right macrocalcification. No nodules seen. No masses or lymphadenopathy. Central airways patent. Normal esophagus. AXILLA/CHEST WALL: No lymphadenopathy or mass. Right chest wall pacer device. UPPER ABDOMEN: -There is a 1.5 x 1.3 cm partially imaged nodule/mass arising from the lateral left kidney mid pole, measuring 35 Hounsfield units. Cannot exclude a renal mass. Ultrasound recommended. -The gallbladder is distended without wall thickening. Calcifications in the gallbladder wall may indicate adenomyomatosis. -There is a granuloma in the lateral right hepatic lobe. OSSEOUS STRUCTURES: There is no suspicious lytic or blastic bone lesion. There are degenerative changes throughout the spine, mild to moderate in severity. CT/CT angio chest PE protocol IMPRESSION: 1. There is no evidence of pulmonary embolus. There is no evidence of acute aortic syndrome. 2. There is moderate centrilobular and paraseptal emphysema. There is a small layering left pleural effusion. Lungs are otherwise clear without consolidation or abnormal opacities. 3. There is a possible left renal mass measuring 1.5 x 1.3 cm, incompletely imaged. Recommend correlating with ultrasound. This was mentioned on the prior CT 06/13/2024. This was present 07/01/2022 CT abdomen/pelvis and currently appears slightly larger, raising suspicion of neoplasm. 4. There are numerous ancillary findings as discussed in the body of the report. Electronically signed by: Lior Lewis MD 08/22/2024 04:17 PM EDT
--- NOTE | ~2024-08-22 | XR_ITS ---
EXAMINATION: XR CHEST CLINICAL INFORMATION: chest pain COMPARISON: 06/13/2024 x-ray and CT chest TECHNIQUE: AP view of the chest was obtained. FINDINGS: Left-sided dialysis catheter is in place with tip in the right atrium. Right-sided dual-lead pacer device is in place, with leads extending into the right atrium and right ventricle. The cardiac, hilar, and mediastinal contours are normal. Aortic mural calcifications. The lungs are clear bilaterally. There is underlying COPD. No pneumothorax or effusion. Previously seen left effusion and patchy airspace disease bilaterally has resolved. No focal osseous or soft tissue abnormality. There are degenerative changes in the bilateral shoulder joints and throughout the spine. XR/XR chest 1V IMPRESSION: 1. Stable dialysis catheter and right chest wall pacemaker. 2. COPD with no active pulmonary disease. Previously seen patchy airspace disease and left effusion has resolved. Electronically signed by: Lior Lewis MD 08/22/2024 09:14 AM EDT
--- NOTE | 2024-08-22 08:56 | ED_ITS ---
HPI - Chest Pain General Chief Complaint: Chest Pain Stated Complaint: chest heaviness on way to HD Time Seen by Provider: 08/22/24 08:53 Source: patient, EMS, old records reviewed and product development actuary Mode of arrival: EMS Limitations: no limitations History of Present Illness ED Provider: JUNI HPI narrative: 78 yo male with PMH of afib not on thinners, GIB, SSS s/p PPM, ESRD on HD MWF went Sunday had normal session, LLE chronic swelling with DVT now s/p IVC filter, chronic c diff infection started chronic PO vancomycin takes it MWF with HD - this AM in bed around 8am started with L chest tightness and some dyspnea. He denies cough, fevers, sore throat. He states mild dyspnea. He notes nothing makes pain worse and he has no pain now. Pain is intermittent and squeezing in nature. MD complaint: chest pain Onset (ago): hour(s) (8am) Timing of current episode: now resolved Prior episodes: Yes Onset: during rest Pain location: left chest Pain radiation: none Severity: mild Quality: tightness Relieving factors: nothing Exacerbating factors: nothing Context: recent illness Associated symptoms: nausea and dyspnea Treatment prior to arrival: none Related Data Home Medications ?Medication ?Instructions ?Recorded ?Confirmed ammonium lactate 12 % lotion 1 appl topical DAILY PRN Dry Skin 06/02/24 07/08/24 cholestyramine (with sugar) 4 gram 1 ea PO DAILY 06/0207/08/24 powder for susp in a packet diltiazem HCl 240 mg 240 mg PO DAILY 06/02/24 capsule,extended release 24 hr pantoprazole 20 mg tablet,delayed 20 mg PO DAILY@0630 06/02/24 07/08/24 release Previous Rx's ?Medication ?Instructions ?Recorded amiodarone 200 mg tablet 200 mg PO DAILY #90 tabs 03/07 walker #1 ea 11/29/23 prednisone 10 mg tablet See Taper PO DIRECTED #12 8 tabs 06/18/24 vancomycin 125 mg capsule 125 mg PO BID #60 caps 06/18 nystatin 100,000 unit/mL oral 400,000 unit (4 mL) PO Q ID 10 days 06/19/24 suspension #160 mL metoprolol succinate 50 mg 75 mg (1.5 x 50 mg) PO LINNEA Y #90 08/11/24 tablet,extended release 24 hr tabs vancomycin 125 mg capsule 125 mg PO .,,Sun 30 days # 13 caps 08/20/24 Allergies Allergy/AdvReac Type Severity Reaction Status Date / Time No Known Allergies (NKA) Allergy Mild NOT Verified 08/22/24 08:52 APPLICABLE Review of Systems 2 Review of Systems: Constitutional : No Weight loss, No Fever, No Chills ENT/Mouth : No sore throat, No Rhinorrhea Eyes: No Eye Pain, No Swelling Cardiovascular : pos Chest Pain, pos SOB, no Dyspnea on Exertion, No Orthopnea, No Edema, No Palpitations Respiratory : No Cough, No Sputum Gastrointestinal : no Nausea, No Vomiting, No Diarrhea, No abdominal Pain, No Hematochezia, No Melena Genitourinary : No Dysuria, No Urinary Frequency Musculoskeletal : No joint pain, No Myalgias, No Joint Swelling Skin : No Skin Lesions, No rash Neuro : No Weakness, No Numbness, No Dizziness, No Headache All other systems reviewed and are negative [facility] Past Medical History Attestation statement: The following information was validated with the patient. Source: old records reviewed Medical History Sick sinus syndrome ESRD (end stage renal disease) on dialysis Pacemaker UTI (urinary tract infection) Ileus C. difficile colitis Acute renal failure BPH (benign prostatic hyperplasia) Sinus bradycardia Recto-vesical fistula End stage renal disease Postoperative hematoma involving digestive system following digestive system procedure Aftercare following left shoulder joint replacement surgery OA (osteoarthritis) Borderline hyperlipidemia Obesity HTN (hypertension) EtOH dependence Mild cognitive impairment Inhibited sex excitement Atrial fibrillation Cancer of kidney High cholesterol Hypertension Surgical History Rectal carcinoma Malignant neoplasm of rectum Rectal mass Encounter for interrogation of cardiac pacemaker Atrial fibrillation with rapid ventricular response Family History Family History Mother Heart problem Social History Social History Household Members: Family Housing: House Do you presently have visiting nurse or other home services: No Alcohol intake: unknown Comment: PATIENT BEDBOUND AT THIS TIME Patient Tobacco Use Status: Former Tobacco user Tobacco use type: Cigarette e-Cigarette/Vaping Use: Never Used Second Hand Smoke Exposure: No Advance Directives: Yes Advance Directives on File: Yes Advance Directives Date on File: 11/29/22 service: No Physical Exam 2 Vital Signs: Vital Signs: Last Vital Signs Temp 97.5 F 08/22/24 16:14 Pulse 60 08/22/24 16:14 Resp 14 08/22/24 16:14 BP 103/50 L 08/22/24 16:14 Pulse Ox 94 08/22/24 16:14 O2 Del Method Room Air 08/22/24 16:14 BMI result Body Mass Index 17.6 Appearance: Alert. Oriented X3. No acute distress. Eyes: Pupils equal, round and reactive to light. ENT: Pharynx normal. Neck: Normal inspection. Neck supple. pos JVD CVS: Normal heart rate and rhythm. Pulses normal. Respiratory: No respiratory distress. Breath sounds diminished both bases Abdomen: Soft and nontender. Rectal: dark tarry stool Skin: Skin warm and dry. Normal skin color. skin tears superficial uninfected L arm Extremities: left leg swelling pitting edema, bigger than right Neuro: Oriented X 3. No motor deficit. No sensory deficit. CN2-12 intact Course Course Course Narrative: had melena while here IV protonix ordered, repeat CBC and order type and screen hx of same but given his platelets not a candidate for EGD Medications Administered Discontinued Medications Generic Name Dose Route Start Last Admin Trade Name Boq PRN Reason Stop Dose Admin Iohexol 100 ml 08/22/24 15:43 08/22/24 15:43 Iohexol 350 Mg/Ml 100 Ml Infus..Btl IV 08/22/24 15:44 65 ml ONCE ONE Administration Pantoprazole Sodium 40 mg 08/22/24 15:23 08/22/24 16:21 Pantoprazole Sodium 40 Mg/10 Ml Vial IVPUSH 08/22/24 15:24 40 mg ONCE ONE Administration Medical Decision Making Medical Decision Making MDM Narrative: 78 yo male with PMH of afib not on thinners, GIB, SSS s/p PPM, ESRD on HD MWF went Sunday had normal session, LLE chronic swelling with DVT now s/p IVC filter, chronic c diff infection here with chest pain at 8am that has resolved with dyspnea. At this time clinically he does appear to have some volume overload - he has IVC filter in place so VTE less likely. He will need labs, CXR, trop x 2. He has no infectious symptoms other than the diarrhea. Differential Diagnosis Differential Diagnoses: The differential diagnosis associated with the presentation includes CHF, acs, volume overload low probability of VTE Admission/Observation Consideration of admission/observation: Escalation of care including admission/observation considered admit given his anemia and UGIB symptoms - GI notified Consult Healthcare Provider Management of the patient was discussed with: Hospitalist (will admit) and Booth Cleaner Dr. Flores to see patient - CTA:PE and ECHO ECHO no GWMA no change from prior, EF at baseline, no effusion Dr Levine aware will follow along Lab Data MDM Lab Attestation statement: I reviewed the patient's lab results. chronic WBC count could be due to chronic c diff he has no new pneumonia on CXR 08/22/24 16:11 08/22/24 09:17 Labs: Lab Results 08/22/24 08/22/24 08/22/24 Range/Units 09:17 12:04 14:36 WBC 18.5 H (4.8-10.8) X10*3/uL RBC 2.94 L (4.60-5.80) X10*6/uL Hgb 8.5 L (14.0-18.0) g/dl Hct 27.6 L (42.0-52.0) % MCV 93.9 (80.0-98.0) fL MCH 28.9 (27.0-33.0) pg MCHC 30.8 L (31.0-36.0) g/dl RDW 17.5 H (11.0-16.0) % Plt Count 30 L D (160-400) X10*3/uL MPV Not Reportable Immature Gran % (Auto) 1.9 H (0.0-0.4) % Neut % (Auto) 86.8 H (45-73) % Lymph % (Auto) 5.1 L (20-40) % [place]lin % (Auto) 5.9 (2-11) % Eos % (Auto) 0.1 (0-4) % Baso % (Auto) 0.2 (0-2) % Lymph # (Auto) 0.9 L (1.2-4.9) X10*3/uL [place] # (Auto) 1.1 (0.1-1.2) X10*3/uL Eos # (Auto) 0.0 (0.0-0.4) X10*3/uL Baso # (Auto) 0.0 (0.0-0.2) X10*3/uL Abs Immat Gran (auto) 0.35 H (0.00-0.03) X10*3/uL Absolute Neuts (auto) 16.1 H (2.0-8.3) x10*3/uL Absolute Nucleated RBC 0.000 (0.0-0.012) X10*3/uL Nucleated RBC % (auto) 0.0 (0.0-0.2) /100WBC Sodium 137 (135-145) mmol/L Potassium 4.2 (3.3-5.1) mmol/L Chloride 100 (96-108) mmol/L Carbon Dioxide 25 (22-29) mmol/L Anion Gap 16 (12-20) BUN 28 H (9-16) mg/dL Creatinine 4.35 H* (0.5-1.4) mg/dL Estim Creat Clear Calc 11.1 Estimated GFR 13 Random Glucose 85 (60-115) mg/dL Calcium 7.7 L D (8.4-10.2) mg/dL Magnesium 2.0 (1.6-2.6) mg/dL Total Bilirubin 0.8 (0.0-1.0) mg/dL Direct Bilirubin 0.3 (0.0-0.5) mg/dL AST 12 (5-37) U/L ALT < 6 (0-40) U/L Alkaline Phosphatase 91 (39-117) U/L Troponin I High Sens 143.9 H* D 134.9 H* (<3.5-35.0) ng/L B-Natriuretic Peptide 262 H (<100) pg/mL Total Protein 4.5 L (6.5-8.0) g/dL Albumin 1.9 L (3.5-5.0) g/dL Stool Occult Blood POSITIVE (NEGATIVE) 08/22/24 Range/Units 16:11 WBC 14.7 H (4.8-10.8) X10*3/uL RBC 2.40 L (4.60-5.80) X10*6/uL Hgb 6.9 L* (14.0-18.0) g/dl Hct 22.4 L (42.0-52.0) % MCV 93.3 (80.0-98.0) fL MCH 28.8 (27.0-33.0) pg MCHC 30.8 L (31.0-36.0) g/dl RDW 17.6 H (11.0-16.0) % Plt Count 26 L (160-400) X10*3/uL MPV Not Reportable Immature Gran % (Auto) (0.0-0.4) % Neut % (Auto) (45-73) % Lymph % (Auto) (20-40) % Hamlin % (Auto) (2-11) % Eos % (Auto) (0-4) % Baso % (Auto) (0-2) % Lymph # (Auto) (1.2-4.9) X10*3/uL [place]lin # (Auto) (0.1-1.2) X10*3/uL Eos # (Auto) (0.0-0.4) X10*3/uL Baso # (Auto) (0.0-0.2) X10*3/uL Abs Immat Gran (auto) (0.00-0.03) X10*3/uL Absolute Neuts (auto) (2.0-8.3) x10*3/uL Absolute Nucleated RBC 0.000 (0.0-0.012) X10*3/uL Nucleated RBC % (auto) 0.0 (0.0-0.2) /100WBC Sodium (135-145) mmol/L Potassium (3.3-5.1) mmol/L Chloride (96-108) mmol/L Carbon Dioxide (22-29) mmol/L Anion Gap (12-20) BUN (9-16) mg/dL Creatinine (0.5-1.4) mg/dL Estim Creat Clear Calc Estimated GFR Random Glucose (60-115) mg/dL Calcium (8.4-10.2) mg/dL Magnesium (1.6-2.6) mg/dL Total Bilirubin (0.0-1.0) mg/dL Direct Bilirubin (0.0-0.5) mg/dL AST (5-37) U/L ALT (0-40) U/L Alkaline Phosphatase (39-117) U/L Troponin I High Sens (<3.5-35.0) ng/L B-Natriuretic Peptide (<100) pg/mL Total Protein (6.5-8.0) g/dL Albumin (3.5-5.0) g/dL Stool Occult Blood (NEGATIVE) Independent Interpretation I performed an independent interpretation of an: EKG, Plain X-Ray (no new consolidations) and CT Scan (no PE no pneumonia there is a concerning left renal lesion ) Interpretation: Rate: 85 Rhythm: NSR [place]: left Normal P waves. Normal FREYA. Normal QRS complex. ST T wave : normal no ORIN qTC: 487 prior studies: no acute ischemia The study has been interpreted contemporaneously by me. . Radiology Impression Discussion of test interpretation with radiology: I have reviewed the radiologist's reading. Independent Historian Clinical information obtained from an independent historian. History obtained from or confirmed by: EMS and Other (family) External Record Review External record reviewed: Inpatient record and Outpatient record Critical Care Time Critical Care Time Critical Care Time: Yes Total Critical Care Time: 60 Attestation: Time is exclusive of separately billable procedures. Time includes: direct patient care, patient reassessment, coordination of patient care, interpretation of data (laboratory data, pulse oximetry, arterial blood gases and chest xrays), review of patient's medical records, medical consultation and documentation of patient care. Repeat blood tests, transfusion of blood. Procedures excluded from critical care time: electrocardiography. I attest to this time spent taking care of the patient Discharge Plan Discharge Clinical Impression: Chest pain, Melena, ABLA (acute blood loss anemia) Patient Disposition: Admitted As Inpatient Print Language: Latvian
[2024-08-22 09:21] LABS: MANUAL DIFF FLAG NO
--- OUTSIDE RECORDS SUMMARY | 2024-08-22 09:25 | XMS_ITS | Encounter Summary ---
Author Organization [facility] Address [address] [address] Phone Care Team Providers Care Miller Kiln Dried Salt Name Role Phone Joao Duncan MD Primary Care Provider [phone] Encounter Details Date Type Department Care Team (Late Contact Info) Description 08/20/2024 Orders Only [facility] [address] [address] Casey Maier MD [address] [address] Social History Tobacco Use Types Packs/Day Years [...] visit [facility] [address] [place] [address] [place] [id number] documented as of this encounter Procedures Procedure Name Priority Date/Time Associated Diagnosis Comments HEMATOLOGY Routine 08/20/2024 CHEMISTRY Routine 08/20/2024 documented in this encounter Results * (ABNORMAL) [facility] (08/20/2024) Calcium 7.5(L) 8.4 - 10.2 mg/dL [facility] 08/20/2024 08/21/2024 10: 02 AM EDT Narrative [facility] - 08/21/2024 Unless otherwise specified, test(s) performed at: [facility], [address] [place] [id number] EDUCATIONAL PSYCHOLOGIST: Aman De La Rosa M.D. For any questions, please call customer service at FREQUENCY:OTHER Resulting Agency Comment Specimen source: Serum Casey Maier MD LAB BLOOD ORDERABLES Final Result Performing Organization Address City/[facility]/ZIP Co de Phone Number [facility] See order comments or contact performing lab Unknown, [place] * (ABNORMAL) HEMATOLOGY (08/20/2024) Hemoglobin 8.5(L) 14.0 - 18.0 g/dL [facility] Hemoglobin x 3 25.5(L) 42.0 - 54.0 % [facility] 08/20/2024 08/21/2024 8:5 3 AM EDT Narrative [facility] - 08/21/2024 Unless otherwise specified, test(s) performed at: [facility], [address] [place] [address] EDUCATIONAL PSYCHOLOGIST: Aman De La Rosa M.D. For any questions, please call customer service at FREQUENCY:OTHER Resulting Agency Comment Specimen source: Blood Casey Maier MD LAB BLOOD ORDERABLES Final Result [facility] See order comments or contact performing lab Unknown, [place] documented in this encounter Visit Diagnoses Not on filedocumented in this encounter Care Teams [employer] Dried Salt Relationship Specialty Start Date End Date Joao Duncan MD [address] [place] [address] PCP - General Internal Medicine 12/20/22 documented as of this encounter
--- OUTSIDE RECORDS SUMMARY | 2024-08-22 09:25 | XMS_ITS | Encounter Summary ---
Author Organization [email or web address] Address [address] [place] [address] Care Team Providers Care Cylinder Block Mechanic Name Role Phone Naty Harvey MD Primary Care Provider [phone] Encounter Details Date Type Department Care Team (Late st Contact Info) Description 04/21/2024 Lab Requisition [facility] - Main Lab [address] [place] [address] Naty Harvey MD [address] [place] [phone] Essential (primary) hypertension; Anemia, unspecified; Enterocolitis due [...] mmol/L LAB CHEMISTRY METHOD 04/22/2024 9:24 AM [facility] Potassium 3.4(L) 3.5 - 5.5 mmol/L LAB CHEMISTRY METHOD 04/22/2024 9:24 AM [facility] Chloride 110 96 - 110 mmol/L LAB CHEMISTRY METHOD 04/22/2024 9:24 AM [facility] CO2 27 21 - 32 mmol/L LAB CHEMISTRY METHOD 04/22/2024 9:24 AM [facility] Anion Gap 8 3 - 11 LAB CHEMISTRY METHOD 04/22/2024 9:24 AM [facility] Glucose 60(L) 70 - 100 mg/dL LAB CHEMISTRY METHOD 04/22/2024 9:24 AM [facility] BUN 21 5 - 25 mg/dL LAB CHEMISTRY METHOD 04/22/2024 9:24 AM [facility] Comment:Results verified by repeat testing Creatinine 3.41(H) 0.70 - 1.30 mg/dL LAB CHEMISTRY METHOD 04/22/2024 9:24 AM [facility] Comment:Results verified by repeat testing eGFR 18(L) >=60 mL/min/1. 73m2 LAB CHEMISTRY METHOD 04/22/2024 9:24 AM [facility] Comment:Calculation based on the Chronic Kidney Disease Epidemiology Collaboration (CKD-EPI) equation refit without adjustment for race. BUN/Creatinine Ratio 6.2 LAB CHEMISTRY METHOD 04/22/2024 9:24 AM [facility] Calcium 6.6(L) 8.5 - 10.5 mg/dL LAB CHEMISTRY METHOD 04/22/2024 9:24 AM [facility] Blood Venous blood specimen / Unknown Venipuncture / Unknown 04/22/2024 5:47 AM EDT 04/22/2024 7:46 AM EDT us Naty Harvey MD LAB BLOOD ORDERABLES Final Resul t [facility] [address] [place] [address], documented in this encounter Visit Diagnoses Diagnosis Essential (primary) hypertension Unspecified essential hypertension Anemia, unspecified Enterocolitis due to Clostridium difficile, not specified as recurrent documented in this encounter Care Teams Cylinder Block Mechanic Relationship Specialty Start Date End Date Naty Harvey MD [address] [place] [address] PCP - General Hospitalist Medicine 04/19/24 documented as of this encounter
[2024-08-22 09:30] LABS: Hematocrit 27.6 % (42.0-52.0); Hemoglobin 8.5 g/dl (14.0-18.0); Imm Gran Abs Auto 0.35 X10*3/uL (0.00-0.03); Imm Gran Pct Auto 1.9 % (0.0-0.4); Lymphocytes Absolute Auto 0.9 X10*3/uL (1.2-4.9); Mean Corpuscular HGB Conc 30.8 g/dl (31.0-36.0); Mean Corpuscular Hemoglobin 28.9 pg (27.0-33.0); Mean Corpuscular Volume 93.9 fL (80.0-98.0); NRBC Abs Auto 0.000 X10*3/uL (0.0-0.012); NRBC Pct Auto 0.0 /100WBC (0.0-0.2); Platelet Count 30 X10*3/uL (160-400); Red Blood Count 2.94 X10*6/uL (4.60-5.80); White Blood Count 18.5 X10*3/uL (4.8-10.8)
[2024-08-22 09:42] LABS: Alanine Aminotransferase < 6 U/L (0-40); Albumin Level 1.9 g/dL (3.5-5.0); Alkaline Phosphatase 91 U/L (39-117); Anion Gap 16 (12-20); Aspartate Amino Transferase 12 U/L (5-37); Blood Urea Nitrogen 28 mg/dL (9-16); Calcium 7.7 mg/dL (8.4-10.2); Carbon Dioxide 25 mmol/L (22-29); Chloride 100 mmol/L (96-108); Creatinine Clr Calc Pharmacy 11.1; Estimated Glomerular Filt Rate 13; Magnesium 2.0 mg/dL (1.6-2.6); Potassium 4.2 mmol/L (3.3-5.1); Sodium 137 mmol/L (135-145); Total Protein 4.5 g/dL (6.5-8.0)
[2024-08-22 09:43] LABS: B Type Natriuretic Peptide 262 pg/mL (<100)
[2024-08-22 09:47] LABS: Troponin-I High Sensitivity 143.9 ng/L (<3.5-35.0)
--- NOTE | 2024-08-22 10:30 | PC.NURSE ---
Sleeping/resting comfortably at this time. at bedside. Plan to repeat troponin level at 12:00pm, ordered by Dr. Reddy. Care ongoing by this RN.
[2024-08-22 12:36] LABS: Troponin-I High Sensitivity 134.9 ng/L (<3.5-35.0)
--- NOTE | 2024-08-22 13:43 | CA_ITS ---
Transthoracic Echocardiogram Patient (Last, First, Middle): Mehran Ku, Gender: Male Date of : 1945 Age: 78 Procedure Date: 08/22/2024 Procedure Type: Transthoracic Echocardiogram Location: ER Height: 177.8 cm Weight: 55.34 kg BSA: 1.69 m2 Heart Rate: 60 bpm BP: 103 / 50 mmHg Machine Stuffer: SB Referring MD: Bhakti Reddy DO Symptoms: chest pain elevated troponins/limited Study Quality: Adequate ECG Rhythm: Sinus Conclusions: - Normal left ventricular cavity size. The left ventricular systolic function is low normal. The visually estimated ejection fraction is between 50-55%. - Normal right ventricular cavity size. There is mildly decreased right ventricular systolic function. There is a pacemaker wire seen in the right ventricle. Findings Left Ventricle Normal left ventricular cavity size. The left ventricular systolic function is low normal. The visually estimated ejection fraction is between 50-55%. There is no evidence of regional wall motion abnormalities. Right Ventricle Normal right ventricular cavity size. There is mildly decreased right ventricular systolic function. There is a pacemaker wire seen in the right ventricle. Pericardium/Pleural There is no evidence of pericardial effusion. Prior Study Comparison Changes noted compared to prior study dated: 11/14/2023. Mild RV dysfunction (was mod to severe before) Measurements 2D Systolic Function EF 4C: 51.50 >55% EF 2C: 54.80 >55% EF BiP: 51.90 >55% Right Ventricle TAPSE (mm): 12.00 TVS' Yonis: 9.00 Tricuspid Valve TR Pk Yonis: 2.44 TR Pk Grad: 24.00 Updated in Other Vendor System with Status of Final Jarred Flores MD electronically signed on 08/23/2024 9:14:10 AM with status of Final
--- NOTE | 2024-08-22 14:22 | PM.CNCAR ---
History of Present Illness History of Present Illness Date of Service: 08/22/24 Requesting physician: Bhakti Reddy Chief complaint: GIB Narrative: 78-year-old gentleman with complex medical issues including known history of GI bleed, hypertension, sick sinus syndrome status post pacemaker, atrial fibrillation and not on anticoagulation due to previous GI bleed, previous DVT and IVC filter and end-stage renal disease on hemodialysis. Today he was due for hemodialysis but developed chest pressure and came to the emergency department. Previously he was noticed to have significant thrombocytopenia and that was 1 of the reasons he has not been on anticoagulation for atrial fibrillation. He said he has been getting chest pressure off and on. Biomarkers are not significantly elevated. EKGs did not show any dynamic changes. We performed echocardiography at bedside which showed low normal ejection fraction as before without any significant new regional wall motion abnormalities. His right ventricular function appeared to be improved. [facility] Past Medical History Medical History Sick sinus syndrome ESRD (end stage renal disease) on dialysis Pacemaker UTI (urinary tract infection) Ileus C. difficile colitis Acute renal failure BPH (benign prostatic hyperplasia) Sinus bradycardia Recto-vesical fistula End stage renal disease Postoperative hematoma involving digestive system following digestive system procedure Aftercare following left shoulder joint replacement surgery OA (osteoarthritis) Borderline hyperlipidemia Obesity HTN (hypertension) EtOH dependence Mild cognitive impairment Inhibited sex excitement Atrial fibrillation Cancer of kidney High cholesterol Hypertension Family History Family History Mother Heart problem Surgical History Surgical History Rectal carcinoma Malignant neoplasm of rectum Rectal mass Encounter for interrogation of cardiac pacemaker Atrial fibrillation with rapid ventricular response Social History Social History Household Members: Family Housing: House Do you presently have visiting nurse or other home services: No Unable to assess alcohol history related to: Unable to respond Alcohol intake: unknown Comment: PATIENT BEDBOUND AT THIS TIME Patient Tobacco Use Status: Former Tobacco user Tobacco use type: Cigarette Smoked in Last 30 Days: No e-Cigarette/Vaping Use: Never Used Second Hand Smoke Exposure: No Advance Directives: Yes Advance Directives on File: Yes Advance Directives Date on File: 11/29/22 service: No Meds Allergies Allergy/AdvReac Type Severity Reaction Status Date / Time No Known Allergies (NKA) Allergy Mild NOT Verified 08/22/24 08:52 APPLICABLE Home Medications ?Medication ?Instructions ?Recorded ?Confirmed ?Last Taken ?Type ammonium lactate 12 % lotion 1 appl topical DAILY PRN Dry Skin 06/02/24 08/22/24 Unknown History cholestyramine (with sugar) 4 gram 1 ea PO DAILY 06/02/24 08/22/24 Unknown History powder for susp in a packet diltiazem HCl 240 mg 240 mg PO DAILY 06/02/24 08/22/24 Unknown History capsule,extended release 24 hr pantoprazole 20 mg tablet,delayed 20 mg PO DAILY@0630 06/02/24 08/22/24 Unknown History release hydrocortisone 2.5 % topical cream 1 appl [place] QID PRN Itching 08/22/24 08/22/24 Unknown History with perineal applicator lidocaine 4 % topical cream 1 appl topical DAILY PRN Itching 08/22/24 08/22/24 Unknown History vancomycin 125 mg capsule 125 mg PO MOWEFR 08/22/24 08/22/24 Unknown History Physical Exam Vital Signs: Vital Signs: Last Vital Signs Temp 8.2 F L 08/22/24 12:04 Pulse 65 08/22/24 12:04 Resp 13 08/22/24 12:04 BP 103/50 L 08/22/24 12:04 Pulse Ox 97 08/22/24 12:04 O2 Del Method Room Air 08/22/24 12:04 BMI result Body Mass Index 17.6 GENERAL APPEARANCE: in no acute distress, pale appearing. Cold peripheries. NECK: no carotid bruit, no jugular venous distention. SKIN: no suspicious lesions, warm and dry. HEART: no murmurs, regular rate and rhythm. LUNGS: clear to auscultation bilaterally. ABDOMEN: soft, nontender. EXTREMITIES: no edema. PERIPHERAL PULSES: equal. NEUROLOGIC: No gross deficits, AAO X 3 Objective Labs and Meds 08/22/24 16:11 08/22/24 09:17 Lab results: Laboratory Results - last 24 hr 08/22/24 08/22/24 09:17 12:04 WBC 18.5 H RBC 2.94 L Hgb 8.5 L Hct 27.6 L MCV 93.9 MCH 28.9 MCHC 30.8 L RDW 17.5 H Plt Count 30 L D MPV Not Reportable Immature Gran % (Auto) 1.9 H Neut % (Auto) 86.8 H Lymph % (Auto) 5.1 L [place] % (Auto) 5.9 Eos % (Auto) 0.1 Baso % (Auto) 0.2 Lymph # (Auto) 0.9 L [place] # (Auto) 1.1 Eos # (Auto) 0.0 Baso # (Auto) 0.0 Abs Immat Gran (auto) 0.35 H Absolute Neuts (auto) 16.1 H Absolute Nucleated RBC 0.000 Nucleated RBC % (auto) 0.0 Sodium 137 Potassium 4.2 Chloride 100 Carbon Dioxide 25 Anion Gap 16 BUN 28 H Creatinine 4.35 H* Estim Creat Clear Calc 11.1 Estimated GFR 13 Random Glucose 85 Calcium 7.7 L D Magnesium 2.0 Total Bilirubin 0.8 Direct Bilirubin 0.3 AST 12 ALT < 6 Alkaline Phosphatase 91 Troponin I High Sens 143.9 H* D 134.9 H* B-Natriuretic Peptide 262 H Total Protein 4.5 L Albumin 1.9 L Imaging Radiologist's impression: Impressions Chest X-Ray 08/22/24 07:56 IMPRESSION: 1. Stable dialysis catheter and right chest wall pacemaker. 2. COPD with no active pulmonary disease. Previously seen patchy airspace disease and left effusion has resolved. Electronically signed by: Lior Lewis MD 08/22/2024 09:14 AM EDT Assessment and Plan (1) Chest pain: Qualifiers: Chest pain type: unspecified Qualified Code(s): R07.9 - Chest pain, unspecified Status: Acute Plan [age] year gentleman with off and on chest discomfort as well as melena. He is noticed to be significantly anemic and this is likely cause for his chest discomfort. Transfuse and monitor hemoglobin closely. He has thrombocytopenia which is chronic. Previously not anticoagulated due to GI bleed and thrombocytopenia although he had indication due to DVT as well as atrial fibrillation in the past. He has an IVC filter increase. Supportive care. Thank you for allowing me to participate in the care of your patient. Please feel free to contact me if you have any questions. Procedures Date of Service Date of Service: 08/22/24
--- NOTE | 2024-08-22 14:25 | PC.NURSE ---
Black tarry stool noted during bowel movement. Dr. Reddy notified. [facility] stool ordered & being sent/analyzed at this time.
[2024-08-22 14:42] LABS: OBS1 POSITIVE (NEGATIVE)
[2024-08-22 14:43] LABS: OBS Int Ctl Valid YES
[2024-08-22] MEDS: iohexoL 350 MG/ML 100 ML INFUS..BTL IV (15:43)
--- NOTE | 2024-08-22 16:13 | PC.NURSE ---
Repeat labs & Type & Screen drawn and sent for analysis. Awaiting results.
[2024-08-22 16:36] LABS: Hematocrit 22.4 % (42.0-52.0); Mean Corpuscular HGB Conc 30.8 g/dl (31.0-36.0); Mean Corpuscular Hemoglobin 28.8 pg (27.0-33.0); Mean Corpuscular Volume 93.3 fL (80.0-98.0); NRBC Abs Auto 0.000 X10*3/uL (0.0-0.012); NRBC Pct Auto 0.0 /100WBC (0.0-0.2); Red Blood Count 2.40 X10*6/uL (4.60-5.80); White Blood Count 14.7 X10*3/uL (4.8-10.8)
[2024-08-22 16:37] LABS: Platelet Count 26 X10*3/uL (160-400)
[2024-08-22 16:38] LABS: Hemoglobin 6.9 g/dl (14.0-18.0)
--- NOTE | 2024-08-22 17:33 | PM.IMHP ---
History of Present Illness Date of Service: 08/22/24 Chief Complaint: Chest pain and blood in the stool 78-year-old male with history of BPH, recurrent C. dif colitis and diarrhea, hyperlipidemia, hypertension, history of alcohol use disorder, mild cognitive impairment, sick sinus syndrome status post pacemaker placement, ESRD on hemodialysis (Mon/Sun/Sun)?he did not go today?chronic thrombocytopenia, and frequent hospitalizations. His last hospitalization was from 06/02 to 06/18, during which he was treated for anemia, GI bleeding, thrombocytopenia, and extensive DVT of the left leg. An IVC filter was placed at that time, as he could not be anticoagulated. While getting ready for dialysis today, he experienced intermittent substernal, squeezing chest pain. CTA was negative for PE. ECG showed no acute ischemic changes. Troponin I was elevated, trending down from 143 to 134. He had melena in the ED, with a drop in hemoglobin from 8.5 to 6.9. Platelet count was 26, which is consistent with his chronic baseline. He did no attend dialysis Review of Systems Review of Systems: Presently no chest pain, swelling in legs, no sob, little diarrhea. All other systems are reviewed and negative. [facility] Medical History Sick sinus syndrome ESRD (end stage renal disease) on dialysis Pacemaker UTI (urinary tract infection) Ileus C. difficile colitis Acute renal failure BPH (benign prostatic hyperplasia) Sinus bradycardia Recto-vesical fistula End stage renal disease Postoperative hematoma involving digestive system following digestive system procedure Aftercare following left shoulder joint replacement surgery OA (osteoarthritis) Borderline hyperlipidemia Obesity HTN (hypertension) EtOH dependence Mild cognitive impairment Inhibited sex excitement Atrial fibrillation Cancer of kidney High cholesterol Hypertension Family History Mother Heart problem Surgical History Rectal carcinoma Malignant neoplasm of rectum Rectal mass Encounter for interrogation of cardiac pacemaker Atrial fibrillation with rapid ventricular response Social History Household Members: Spouse Housing: House Do you presently have visiting nurse or other home services: Yes Unable to assess alcohol history related to: Unable to respond Alcohol intake: unknown Comment: PATIENT BEDBOUND AT THIS TIME Patient Tobacco Use Status: Former Tobacco user Tobacco use type: Cigarette e-Cigarette/Vaping Use: Never Used Second Hand Smoke Exposure: No Advance Directives Date on File: 11/29/22 service: Yes Meds Allergies Allergy/AdvReac Type Severity Reaction Status Date / Time No Known Allergies (NKA) Allergy Mild NOT Verified 08/22/24 08:52 APPLICABLE Active Medications: Current Medications Pantoprazole Sodium (Pantoprazole Sodium 40 Mg/10 Ml Vial) 40 mg IVPUSH BID@0630,1630 [facility] Home Medications ?Medication ?Instructions ?Recorded ?Confirmed ?Last Taken ?Type ammonium lactate 12 % lotion 1 appl topical DAILY PRN Dry Skin 06/02/24 08/22/24 Unknown History cholestyramine (with sugar) 4 gram 1 ea PO DAILY 06/02/24 08/22/24 Unknown History powder for susp in a packet diltiazem HCl 240 mg 240 mg PO DAILY 06/02/24 08/22/24 Unknown History capsule,extended release 24 hr pantoprazole 20 mg tablet,delayed 20 mg PO DAILY@0630 06/02/24 08/22/24 Unknown History release hydrocortisone 2.5 % topical cream 1 appl MO QID PRN Itching 08/22/24 08/22/24 Unknown History with perineal applicator lidocaine 4 % topical cream 1 appl topical DAILY PRN Itching 08/22/24 08/22/24 Unknown History vancomycin 125 mg capsule 125 mg PO MOWEFR 08/22/24 08/22/24 Unknown History Physical Exam Vital Signs and Narrative: Vital Signs: Last Vital Signs Temp 97.5 F 08/22/24 16:14 Pulse 60 08/22/24 16:14 Resp 14 08/22/24 16:14 BP 103/50 L 08/22/24 16:14 Pulse Ox 94 08/22/24 16:14 O2 Del Method Room Air 08/22/24 16:14 BMI result Body Mass Index 17.6 Const: Other: Constitutional - Awake and Alert, No apparent distress, Alert & oriented x3 Eyes - PERRLA, EOMI Cardiovascular - S1S2, RRR, No edema Respiratory - Normal lung expansion, Normal respiratory effort, No respiratory distress, CTA bilaterally Chest- Right upper chest dialysis catheter in place without any purulent drainage or erythema Gastrointestinal - NT / ND; hyperactive BS, No rebound or guarding - R nephrostomy site without any purulent drainage or significant erythema. Extremities - no calf tenderness bilaterally, or palpable cords. +swelling/3+ edema LLE Musculoskeletal - Normal inspection, normal ROM Skin - Warm/Dry Neurological - No focal deficit Results Labs 08/24/24 04:49 08/24/24 04:49 Labs: Laboratory Results - last 24 hr 08/22/24 08/22/24 08/22/24 09:17 14:36 16:11 MCV 93.9 93.3 MCH 28.9 28.8 MCHC 30.8 L 30.8 L RDW 17.5 H 17.6 H Plt Count 30 L D 26 L MPV Not Reportable Not Reportable Immature Gran % (Auto) 1.9 H Neut % (Auto) 86.8 H Lymph % (Auto) 5.1 L [place] % (Auto) 5.9 Eos % (Auto) 0.1 Baso % (Auto) 0.2 Lymph # (Auto) 0.9 L [place] # (Auto) 1.1 Eos # (Auto) 0.0 Baso # (Auto) 0.0 Abs Immat Gran (auto) 0.35 H Absolute Neuts (auto) 16.1 H Absolute Nucleated RBC 0.000 0.000 Nucleated RBC % (auto) 0.0 0.0 Anion Gap 16 Estim Creat Clear Calc 11.1 Estimated GFR 13 Random Glucose 85 Calcium 7.7 L D Magnesium 2.0 Total Bilirubin 0.8 Direct Bilirubin 0.3 AST 12 ALT < 6 Alkaline Phosphatase 91 B-Natriuretic Peptide 262 H Total Protein 4.5 L Albumin 1.9 L Stool Occult Blood POSITIVE Blood Type A Positive Antibody Screen NEGATIVE Crossmatch See Detail Imaging Radiologist's Impressions: Impressions Chest X-Ray 08/22/24 07:56 IMPRESSION: 1. Stable dialysis catheter and right chest wall pacemaker. 2. COPD with no active pulmonary disease. Previously seen patchy airspace disease and left effusion has resolved. Electronically signed by: Lior Lewis MD 08/22/2024 09:14 AM EDT RP Chest CTA 08/22/24 14:36 IMPRESSION: 1. There is no evidence of pulmonary embolus. There is no evidence of acute aortic syndrome. 2. There is moderate centrilobular and paraseptal emphysema. There is a small layering left pleural effusion. Lungs are otherwise clear without consolidation or abnormal opacities. 3. There is a possible left renal mass measuring 1.5 x 1.3 cm, incompletely imaged. Recommend correlating with ultrasound. This was mentioned on the prior CT 06/13/2024. This was present 07/01/2022 CT abdomen/pelvis and currently appears slightly larger, raising suspicion of neoplasm. 4. There are numerous ancillary findings as discussed in the body of the report. Electronically signed by: Lior Lewis MD 08/22/2024 04:17 PM EDT RP Assessment and Plan (1) Melena: Status: Acute (2) Thrombocytopenia: Status: Acute (3) Left leg DVT: Qualifiers: Affected thrombotic vein of extremity: femoral Chronicity: acute Qualified Code(s): I82.412 - Acute embolism and thrombosis of left femoral vein Status: Acute Plan 78-year-old male with history of BPH, recurrent C diff colitis, hyperlipidemia, hypertension, history of alcohol use disorder, mild cognitive impairments, sick sinus syndrome s/p pacemaker placement, ESRD on HD MWF, chronic thrombocytopenia, history of pancolitis, history of extensive LLE DVT in may 2024 here with chest pain, Melana/gib and acute blood loss anemia. Chest pain, ruled NSTEMI, with intermediate trop of 143 down to 134. He is a very complex patient with multiple comorbidieds, elevated trops likely d/t anemia and possible from CKD pain is better at this point, he will be evaluated by cardiology but I don't he's candidate for any agresive treatment, he cannot be on ASA, or heparin in light of his chronic thrombocytopenia, chronic anemia and active GI bleeding. I think just conservative management. Acute on chronic GIB bleeding and acute on chronic blood loss anemia He's been transfused RBC I would continue IV PPI GI consulation, again, I don't think he's a good candiate for invasive studies Monitor H/H and obviously avoid antiplat and anticoagulants Known LLE DVT, swollen leg, has IVC in place ESRD on HD MWF, [facility] Nephro consult, he missed dialysis today Recurrent Cdif, presently says he has little diarrhea Acute on chronic thrombocytopenia, this has been chronic issue, etiology is not certain and likely multifactorial, Monitor for now and if dropping consider transfusion, in past was on eliquis but no longer on it Paroxysmal atrial fibrillation-rate controlled Has been on cardizemm amio and metoprolol in the past resume after med rec Hypertension resume meds after med rec Sick sinus syndrome Pacemaker in place DVT prophylaxis: compression device Code full code Quality Stroke Does the patient have a stroke diagnosis?: No VTE Prior VTE?: Yes VTE Risk Level:: Medical - moderate - high VTE Device Contraindication: Procedure Contraindicated VTE Drug Contraindication: Treatment Not Tolerated
--- NOTE | 2024-08-22 18:16 | PHA.MEDREC ---
Addendum entered by Rodolfo Castro RPh 08/22/24 18:29: med rec reviewed Original Note: Pharmacy Consult ? Medication Reconciliation Pharmacy has completed the medication reconciliation. Utilized list from [facility] to confirm med list.
[2024-08-22 21:47] LABS: INTERNATIONAL NORM RATIO 1.2 (0.9-1.1); Prothrombin Time 14.0 SEC (10.9-12.4)
[2024-08-22] MEDS: 0.9 % Sodium Chloride Flush 3 ML SYRINGE IVFLUSH (23:46)
[2024-08-23] VITALS (8 sets, daily range): BP systolic 96–158; BP diastolic 53–71; PULSE 60–76; RESP 13–18; TEMP 36.3–36.8; O2SAT 95–99; BMI 17.6
[2024-08-23 06:11] LABS: Alanine Aminotransferase < 6 U/L (0-40); Albumin Level 1.9 g/dL (3.5-5.0); Alkaline Phosphatase 89 U/L (39-117); Anion Gap 16 (12-20); Aspartate Amino Transferase 14 U/L (5-37); Blood Urea Nitrogen 37 mg/dL (9-16); Calcium 7.2 mg/dL (8.4-10.2); Carbon Dioxide 24 mmol/L (22-29); Chloride 102 mmol/L (96-108); Creatinine Clr Calc Pharmacy 9.7; Estimated Glomerular Filt Rate 11; Potassium 4.6 mmol/L (3.3-5.1); Sodium 137 mmol/L (135-145); Total Protein 4.3 g/dL (6.5-8.0)
--- NOTE | 2024-08-23 07:32 | PC.NURSE ---
Care of Pt assumed at change of shift. Pt is awake and resting quietly. Breakfast tray provided and Pt boosted in bed. NAD noted at this time. Pt is awaiting inpatient room assignment.
--- NOTE | 2024-08-23 08:45 | MHC.CM.PN ---
Patient lives with his /HCP/[place] and he uses a walker to assist with mobility. Patient is active with [facility] and HD @ [facility] in [facility] M/W/. Home/resume said services is the tentative plan and CM has initiated and will follow dc planning.PCP is Dr. Joao Duncan, from the [facility] in [place]. vs BLS for transport at dc.
[2024-08-23] MEDS: Cholestyramine (With Sugar) 4 GM POWD.PACK PO (09:02)
[2024-08-23] MEDS: Metoprolol Succinate ER 25 MG TAB.ER.24H 75 MG PO (09:02)
[2024-08-23] MEDS: dilTIAZem HCL CD 240 MG CAP.ER.DEG PO (09:02)
[2024-08-23] MEDS: 0.9 % Sodium Chloride Flush 3 ML SYRINGE IVFLUSH ×3 (09:06→19:39)
[2024-08-23 09:32] LABS: Hematocrit 33.9 % (42.0-52.0); Hemoglobin 10.7 g/dl (14.0-18.0); Imm Gran Abs Auto 0.35 X10*3/uL (0.00-0.03); Imm Gran Pct Auto 1.7 % (0.0-0.4); Lymphocytes Absolute Auto 1.1 X10*3/uL (1.2-4.9); MANUAL DIFF FLAG SCAN; Mean Corpuscular HGB Conc 31.6 g/dl (31.0-36.0); Mean Corpuscular Hemoglobin 29.0 pg (27.0-33.0); Mean Corpuscular Volume 91.9 fL (80.0-98.0); NRBC Abs Auto 0.000 X10*3/uL (0.0-0.012); NRBC Pct Auto 0.0 /100WBC (0.0-0.2); Red Blood Count 3.69 X10*6/uL (4.60-5.80); SCAN SMEAR FLAG 1; White Blood Count 20.8 X10*3/uL (4.8-10.8)
[2024-08-23 09:34] LABS: Platelet Count 36 X10*3/uL (160-400)
--- NOTE | 2024-08-23 09:36 | PC.NURSE ---
Pt off the unit for Dialysis. Pt transported with tele monitor.
[2024-08-23 09:52] LABS: Anion Gap 17 (12-20); Blood Urea Nitrogen 39 mg/dL (9-16); Calcium 7.1 mg/dL (8.4-10.2); Carbon Dioxide 26 mmol/L (22-29); Chloride 100 mmol/L (96-108); Creatinine Clr Calc Pharmacy 9.5; Estimated Glomerular Filt Rate 11; Potassium 4.8 mmol/L (3.3-5.1); Sodium 138 mmol/L (135-145)
--- NOTE | 2024-08-23 12:45 | PC.NURSE ---
Pt returns from Dialysis.
--- NOTE | 2024-08-23 15:43 | HO.PM.IMPN ---
Subjective Subjective Date of Service: 08/23/24 Interval History: Seen and examined Interval history: HD this morning. Hemoglobin improved to 10.7. No chest pain no melena or hematochezia. Platelet level slowly improving Review of Systems Review of Systems: Yes all other systems are reviewed and are negative Physical Exam Vital Signs: Vital Signs: Last Vital Signs Temp 98 F 08/23/24 08:00 Pulse 75 08/23/24 09:02 Resp 15 08/23/24 09:00 BP 136/59 L 08/23/24 09:02 Pulse Ox 98 08/23/24 09:00 O2 Del Method Room Air 08/23/24 09:00 BMI result Body Mass Index 17.6 Constitutional - Awake and Alert, No apparent distress Eyes - PERRLA, EOMI Cardiovascular - S1S2, RRR, No edema Respiratory - Normal lung expansion, Normal respiratory effort, No respiratory distress, CTA bilaterally Gastrointestinal - NT / ND; +BS; No rebound or guarding Extremities - no calf tenderness bilaterally, no swelling Skin - Warm/Dry Neurological - Alert & oriented x3 Psychological - Appropriate affect Objective Data Active Medications Acetaminophen (Acetaminophen 325 Mg Tablet) 650 mg PO Q6H PRN PRN Reason: Pain, Mild 1-3,fever,headache Amiodarone HCl (Amiodarone Hcl 200 Mg Tablet) 200 mg PO DAILY [facility] Last Admin: 08/23/24 09:02 Dose: 200 mg Documented By: CHERYL Calcium Carbonate (Calcium Carbonate 750 Mg Tab.Chew) 750 mg PO Q4H PRN PRN Reason: Heartburn Cholestyramine Resin (Cholestyramine (With Sugar) 4 Gm Powd.Pack) 4 gm PO DAILY [facility] Last Admin: 08/23/24 09:02 Dose: 4 gm Documented By: CHERYL Diltiazem HCl (Diltiazem Hcl Cd 240 Mg Cap.Er.Deg) 240 mg PO DAILY [facility]; Protocol Last Admin: 08/23/24 09:02 Dose: 240 mg Documented By: CHERYL Hydrocortisone (Hydrocortisone 2.5 % Rectal Cr 30 Gm Tube) 1 appl LA QID PRN PRN Reason: Itching Lactic Acid (Ammonium Lactate 12 % Lotion 226 Gm Bottle) 1 appl TOPICAL DAILY PRN; Protocol PRN Reason: Dry Skin Magnesium Hydroxide (Milk Of Magnesia 30 Ml Oral.Susp) 30 ml PO DAILY PRN PRN Reason: Constipation Melatonin (Melatonin 3 Mg Tablet) 6 mg PO BEDTIME PRN PRN Reason: Insomnia Metoprolol Succinate (Metoprolol Succinate Er 25 Mg Tab.Er.24h) 75 mg PO DAILY [facility]; Protocol Last Admin: 08/23/24 09:02 Dose: 75 mg Documented By: CHERYL Pantoprazole Sodium (Pantoprazole Sodium 40 Mg/10 Ml Vial) 40 mg IVPUSH BID@0630,1630 [facility] Last Admin: 08/23/24 05:52 Dose: 40 mg Documented By: AMBER Sodium Chloride (0.9 % Sodium Chloride Flush 3 Ml Syringe) 3 ml IVFLUSH QSHIFT [facility] Last Admin: 08/23/24 09:06 Dose: 3 ml Documented By: CHERYL Vancomycin HCl (Vancomycin Hcl 125 Mg Capsule) 125 mg PO MoWeFr@0900 [facility] Labs 08/23/24 09:23 08/23/24 09:23 Labs: Laboratory Results - last 24 hr 08/22/24 08/22/24 08/23/24 16:11 21:17 05:29 MCV 93.3 MCH 28.8 MCHC 30.8 L RDW 17.6 H Plt Count 26 L MPV Not Reportable Immature Gran % (Auto) Neut % (Auto) Lymph % (Auto) [place] % (Auto) Eos % (Auto) Baso % (Auto) Lymph # (Auto) [place] # (Auto) Eos # (Auto) Baso # (Auto) Abs Immat Gran (auto) Absolute Neuts (auto) Absolute Nucleated RBC 0.000 Nucleated RBC % (auto) 0.0 Smear Tech's Comments PT 14.0 H INR 1.2 H Anion Gap 16 Estim Creat Clear Calc 9.7 Estimated GFR 11 Random Glucose 67 Calcium 7.2 L D Total Bilirubin 1.2 H AST 14 ALT < 6 Alkaline Phosphatase 89 Total Protein 4.3 L Albumin 1.9 L Blood Type A Positive Antibody Screen NEGATIVE Crossmatch See Detail 08/23/24 09:23 MCV 91.9 MCH 29.0 MCHC 31.6 RDW 17.2 H Plt Count 36 L D MPV Not Reportable Immature Gran % (Auto) 1.7 H Neut % (Auto) 84.2 H Lymph % (Auto) 5.4 L [place] % (Auto) 8.5 Eos % (Auto) 0.0 Baso % (Auto) 0.2 Lymph # (Auto) 1.1 L [place] # (Auto) 1.8 H Eos # (Auto) 0.0 Baso # (Auto) 0.1 Abs Immat Gran (auto) 0.35 H Absolute Neuts (auto) 17.5 H Absolute Nucleated RBC 0.000 Nucleated RBC % (auto) 0.0 Smear Tech's Comments VERIFIED PT INR Anion Gap 17 Estim Creat Clear Calc 9.5 Estimated GFR 11 Random Glucose 91 Calcium 7.1 L Total Bilirubin AST ALT Alkaline Phosphatase Total Protein Albumin Blood Type Antibody Screen Crossmatch Assessment and Plan (1) Melena: Status: Acute (2) Thrombocytopenia: Status: Acute (3) NSTEMI (non-ST elevated myocardial infarction): Status: Acute Plan 78-year-old male with history of BPH, recurrent C diff colitis, hyperlipidemia, hypertension, history of alcohol use disorder, mild cognitive impairments, sick sinus syndrome s/p pacemaker placement, ESRD on HD MWF, chronic thrombocytopenia, history of pancolitis, history of extensive LLE DVT in may 2024 here with chest pain, Melana/gib and acute blood loss anemia. Chest pain, ruled NSTEMI, with intermediate trop of 143 down to 134. He is a very complex patient with multiple comorbidities elevated trops likely d/t anemia and possible from CKD Cardiology performed echo at bedside showing low-normal ejection fraction without any significant new regional wall motion abnormalities. Right ventricular function improved Cardiology recommending transfusion as anticoagulation can not be performed secondary to GI bleed and thrombocytopenia Conservative management otherwise Acute on chronic GIB bleeding and acute on chronic blood loss anemia He's been transfused RBC 08/22 IV PPI GI consulation, likely not a candidate for invasive studies Monitor H/H and obviously avoid antiplat and anticoagulants Known LLE DVT, swollen leg, has IVC in place ESRD on HD MWF, He belongs to [facility] Nephro consult, he missed dialysis yesterday. Underwent today Recurrent Cdif, presently says he has little diarrhea GI Panel and C Diff pcr ordered Continue PO vanco MWF Acute on chronic thrombocytopenia, this has been chronic issue, etiology is not certain and likely multifactorial, Monitor for now and if dropping consider transfusion, in past was on eliquis but no longer on it Paroxysmal atrial fibrillation-rate controlled Has been on cardizemm amio and metoprolol in the past resume after med rec Hypertension resume meds after med rec Sick sinus syndrome Pacemaker in place DVT prophylaxis: compression device Code full code Ongoing inpt stay due to GI bleed requiring transfusion and NSTEMI which will require transfusions as needed, close cardiac monitoring, and close monitoring of blood counts as well as expert consultation Quality Stroke Does the patient have a stroke diagnosis?: No VTE Prior VTE?: Yes VTE Risk Level:: Medical - moderate - high VTE Device Contraindication: Procedure Contraindicated VTE Drug Contraindication: Treatment Not Tolerated
--- NOTE | 2024-08-23 16:09 | PM.EVENT ---
Event Note Date of Service: 08/23/24 Event Note: GI Consult-Full note dictated-History from patient and EMR Imp/Recs: 1. Recurrent melena and anemia in the setting of multiple comorbidities including chest pain with apparent SC, CRF on HD, and significant thrombocytopenia. He presently seems stable after transfusions. His last upper endoscopy was in 03/2024 with ? of a duodenal Dieulafoy lesion. Given stable appearance currently and high risk for any invasive procedures I would treat conservatively but with aggressive medical regimen of BID PPI orally and Sucralfate. Avoid all blood thinners, including low dose aspirin. Please call if signs of active bleeding. 2. Diarrhea and recurrent C.diff infections with + stool in 05/2024. Recheck stool for C.diff and if still + despite ongoing use of Vanco, I would put him on trial of Fidaxomicin if available and not used on him in the past. Thanks. Time Spent With Patient Time: Total time managing care of this patient today ____ minutes.
[2024-08-23 19:55] LABS: CDiff Gene PCR POSITIVE (Negative)
[2024-08-23 20:41] LABS: CDIFF Internal ctrl Dots and bkg OK (V)
[2024-08-23 20:43] LABS: CDiff Toxin Positive (Negative)
--- NOTE | 2024-08-23 20:54 | PM.EVENT ---
Event Note Date of Service: 08/23/24 Event Note: Patient with recurrent C diff. Lab reported patient positive for toxin and gene. Noted GIs note, will initiate fidaxomicin. Consulted ID. Time Spent With Patient Time: Total time managing care of this patient today ____ minutes.
[2024-08-24] VITALS (16 sets, daily range): BP systolic 68–102; BP diastolic 36–57; PULSE 58–77; RESP 16–18; TEMP 36.1–36.9; O2SAT 94–100
--- NOTE | 2024-08-24 | ECG_ITS ---
Test Reason : bradycardia Blood Pressure : */* mmHG Vent. Rate : 63 BPM Atrial Rate : 63 BPM P-R Int : 164 ms QRS Dur : 114 ms QT Int : 496 ms P-R-T Axes : 48 12 65 degrees QTcB Int : 507 ms Normal sinus rhythm Cannot rule out Anterior infarct (cited on or before 22-Aug-2024) Prolonged QT Abnormal ECG When compared with ECG of 22-Aug-2024 08:42, No significant change was found Referred By: Meli Gamboa Electronically Signed By: Jarred Flores
[2024-08-24] MEDS: Lactated Ringers 1,000 ML 999 ML IV (02:30)
[2024-08-24] MEDS: Calcium Gluconate/NaCl,Iso-Osm 2 GM/100 ML PLAST..BAG IV (02:37)
--- NOTE | 2024-08-24 02:42 | CONS_ITS ---
DATE OF SERVICE: 08/23/2024 REASON FOR CONSULTATION: Melena, anemia, and diarrhea with history of C difficile infection. HISTORY OF PRESENT ILLNESS: This has been obtained from the patient and the medical record. The patient is a 78-year-old male with multiple medical problems including chronic renal failure for which he is on hemodialysis, chronic thrombocytopenia, and most currently coronary artery disease with positive PA on this admission. He has had episodes of previous melena for which he most recently underwent an upper endoscopy in March with Dr. Lara. This exam describes some Cristal esophagitis, gastritis, and some duodenitis with a question of a Dieulafoy lesion that was treated endoscopically. There was no major GI bleeding noted at that time. He was admitted again for some bleeding in May, but was deemed too higher risk for endoscopic intervention due to thrombocytopenia and other medical issues. He was admitted here again on this most recent hospitalization for onset of chest pain and some melena with the finding of recurrent significant anemia with a hemoglobin of 6.9. His hemoglobin in June was 8.0. He did receive 1 unit of blood and 1 unit of platelets since admission. Things seem to have stabilized in that regard with his hemoglobin this morning of 10.7. His platelet count was as low as 26,000 yesterday and went up to 36,000 today. He has ruled in for PA based on his laboratories with elevated troponin levels. The patient denies any further chest pain since admission. He reports that he is eating fairly well at home and denies any significant heartburn or dysphagia. He does have ongoing diarrhea and has had numerous stool specimens that have been positive for C difficile gene and toxin, most recently as of May. It looks like he is on a chronic vancomycin regimen of 125 mg 3 times a week. The patient denies any abdominal pain. MEDICATIONS: His present medications include acetaminophen, amiodarone, Tums p.r.n., cholestyramine daily, diltiazem, melatonin p.r.n., metoprolol, IV pantoprazole, and vancomycin every Sunday, Sunday, Sunday. PAST MEDICAL HISTORY: Chronic renal failure, on hemodialysis. Coronary artery disease with positive PA on this admission. GI bleeding as described above. Placement of inferior vena cava filter in May by Dr. Potts. This was done for a history of DVT but inability to anticoagulate in relation to his history of GI bleeding and thrombocytopenia. He has a history of what sounds like rectal cancer with a low anterior resection and temporary loop ileostomy at [facility]. Atrial fibrillation. Pacemaker. Hypertension. Previous history of alcohol abuse and smoking. Shoulder surgery. SOCIAL HISTORY: Previous alcohol and tobacco abuse. He describes sobriety and abstinence from both of those currently. He is .. FAMILY HISTORY: Noncontributory. REVIEW OF SYSTEMS: CONSTITUTIONAL: He has been feeling poorly at home in relation to weakness and chest pain. CARDIAC: He did have some chest pain that precipitated his admission. PULMONARY: No coughing or hemoptysis. GI: As above. PHYSICAL EXAMINATION: GENERAL: The patient is an elderly, alert male but in no distress. SKIN: Warm and dry. Anicteric sclerae. NECK: Supple. CHEST: Clear. CARDIAC: Normal S1, S2. ABDOMEN: Soft, nondistended, nontender without organomegaly or mass. LABORATORY DATA: As above. Normal electrolytes. BUN 39, creatinine 5.1. Total bilirubin 1.2, AST 14, ALT less than 6, alkaline phosphatase 89, albumin 1.9. Hemoglobin this morning is 10.7, white blood cell count 20.8, platelets 36,000. PT was 14.0 with INR 1.2. His stools are Hemoccult positive. The most recent stool for C difficile was in May and was positive for both gene and toxin. His CT angiogram from yesterday did not reveal any sign of pulmonary embolus. There was evidence of some emphysema. On views of the upper abdomen, there is a described nodule or mass in the left kidney. IMPRESSION: In regard to the patient's GI bleeding, this seems to be stable at the present time with good response to a single unit of blood transfusion. He does not seem to be having any active gastrointestinal bleeding at the present time. This most likely represents some recurrent gastrointestinal bleeding from the upper GI tract in relation to the significant thrombocytopenia and multiple medical issues. Given his multiple comorbidities including an apparent myocardial infarction on this admission, chronic renal failure, and the significant thrombocytopenia, I would hold off on upper endoscopy at this time as he does not show any signs of active bleeding. Certainly, if he shows signs of active bleeding, then we could reassess things and have him undergo upper endoscopy if need be. In the meantime, I would treat with an aggressive medical regimen including a PPI twice a day orally as well as sucralfate at least 2 or 3 times a day. I would continue to avoid all blood thinners including low-dose aspirin despite the recent myocardial infarction. However, if he shows signs of active bleeding, please let us know. At that point, we would reassess him for upper endoscopy if need be. In regard to the ongoing diarrhea and documented recurrent Clostridium difficile infections with the most recent stool specimen positive in May, I would recheck a stool for Clostridium difficile on this admission. If that is still positive for gene and toxin, I would look into giving him oral fidaxomicin if available and if he has not already been treated with that in the past. If the gene and toxin are both positive again, the other option would be giving him another course of vancomycin such as 250 mg q.i.d. for 2 weeks, then a very slow taper until getting him back to a maintenance regimen. Another option would be that of a fecal transplant at a tertiary center if the infection persists. Please advise me if I can be of any further assistance during the hospitalization. Thank you for the consultation. MD LYNN Moreau/JONO / [phone] JOSEPH
[2024-08-24] MEDS: Magnesium Sulfate/H2O 2 GM/50 ML PIGGYBACK IV (03:26)
[2024-08-24] MEDS: Lactated Ringers 500 ML IV ×2 (03:50→04:50)
[2024-08-24 04:21] LABS: Reflex Lactate? Lactic Acid Added
--- NOTE | 2024-08-24 04:30 | PM.EVENT ---
Event Note Date of Service: 08/24/24 Event Note: Patient with copious watery diarrhea overnight. Nurse reported hypotension. Patient asymptomatic all night. Will order colloids and crystalloids. Unfortunately patient got p.o. Lopressor and p.o. diltiazem earlier in the day. Closely monitor blood pressure. Noted patient has a history of ESRD. Hypotension is due to volume loss in the setting of diarrhea and concurrent beta-blanca/calcium channel blanca use. Time Spent With Patient Time: Total time managing care of this patient today ____ minutes.
[2024-08-24] MEDS: Albumin Human 25 % 100 ML 133.33 ML IV ×2 (04:41→05:31)
[2024-08-24 04:54] LABS: MANUAL DIFF FLAG NO
[2024-08-24 05:02] LABS: Hematocrit 25.6 % (42.0-52.0); Hemoglobin 8.3 g/dl (14.0-18.0); Imm Gran Abs Auto 0.31 X10*3/uL (0.00-0.03); Imm Gran Pct Auto 1.6 % (0.0-0.4); Lymphocytes Absolute Auto 0.7 X10*3/uL (1.2-4.9); Mean Corpuscular HGB Conc 32.4 g/dl (31.0-36.0); Mean Corpuscular Hemoglobin 29.9 pg (27.0-33.0); Mean Corpuscular Volume 92.1 fL (80.0-98.0); NRBC Abs Auto 0.000 X10*3/uL (0.0-0.012); NRBC Pct Auto 0.0 /100WBC (0.0-0.2); Red Blood Count 2.78 X10*6/uL (4.60-5.80); White Blood Count 19.0 X10*3/uL (4.8-10.8)
[2024-08-24 05:09] LABS: Platelet Count 17 X10*3/uL (160-400)
[2024-08-24 05:12] LABS: Anion Gap 13 (12-20); Blood Urea Nitrogen 26 mg/dL (9-16); Calcium 7.4 mg/dL (8.4-10.2); Carbon Dioxide 25 mmol/L (22-29); Chloride 105 mmol/L (96-108); Creatinine Clr Calc Pharmacy 12.9; Estimated Glomerular Filt Rate 16; Potassium 4.9 mmol/L (3.3-5.1); Sodium 138 mmol/L (135-145)
[2024-08-24 05:15] LABS: ~Lactic Acid-LAB USE ONLY 2.1 mmol/L (0.5-2.0)
[2024-08-24 06:52] LABS: Reflex Lactate? 2 Y
--- NOTE | 2024-08-24 07:04 | PC.NURSE ---
Blood pressure taken at 01:50 was 68/38. Heart rate sustaining in 50s. Patient reports feeling asymptomatic. MD notified. EKG, lactic acid, labs ordered and obtained. Meds and fluids ordered and administered, see APR. Blood pressure taken at 03:55 for 88/40. Patient reports feeling asymptomatic. MD notified, fluids and albumin ordered and given, see MAR. Blood pressure rechecked at 04:20 for 86/40, MD notified, no further orders. Blood pressure rechecked at 06:00 for 88/44. MD notifed and no further orders placed.
[2024-08-24 07:31] LABS: ~Lactic Acid-LAB USE ONLY 2.8 mmol/L (0.5-2.0)
[2024-08-24] MEDS: 0.9 % Sodium Chloride Flush 3 ML SYRINGE IVFLUSH ×3 (08:34→21:19)
[2024-08-24] MEDS: Cholestyramine (With Sugar) 4 GM POWD.PACK PO (08:34)
--- NOTE | 2024-08-24 11:05 | HO.PM.IMPN ---
Subjective Subjective Date of Service: 08/25/24 Interval History: Seen and examined Interval history:BP is better, plat remasin low but better with transfusion , H/H is better, peristent diarrhea from Cdif Review of Systems Review of Systems: Yes all other systems are reviewed and are negative Physical Exam Vital Signs: Vital Signs: Last Vital Signs Temp 97.0 F 08/24/24 08:46 Pulse 58 08/24/24 08:46 Resp 16 08/24/24 08:46 BP 88/42 L 08/24/24 08:46 Pulse Ox 96 08/24/24 07:45 O2 Del Method Room Air 08/24/24 07:45 BMI result Body Mass Index 17.6 Constitutional - Awake and Alert, No apparent distress Eyes - PERRLA, EOMI Cardiovascular - S1S2, RRR, No edema Respiratory - Normal lung expansion, Normal respiratory effort, No respiratory distress, CTA bilaterally Gastrointestinal - NT / ND; +BS; No rebound or guarding Extremities - no calf tenderness bilaterally, no swelling Skin - Warm/Dry Neurological - Alert & oriented x3 Psychological - Appropriate affect Objective Data Active Medications Acetaminophen (Acetaminophen 325 Mg Tablet) 650 mg PO Q6H PRN PRN Reason: Pain, Mild 1-3,fever,headache Last Admin: 08/23/24 18:11 Dose: 650 mg Documented By: MICHAEL Amiodarone HCl (Amiodarone Hcl 200 Mg Tablet) 200 mg PO DAILY [facility] Last Admin: 08/24/24 07:22 Dose: Not Given Documented By: MICHAEL Non-Admin Reason: Decreased Blood Pressure Calcium Carbonate (Calcium Carbonate 750 Mg Tab.Chew) 750 mg PO Q4H PRN PRN Reason: Heartburn Cholestyramine Resin (Cholestyramine (With Sugar) 4 Gm Powd.Pack) 4 gm PO DAILY [facility] Last Admin: 08/24/24 08:34 Dose: 4 gm Documented By: ALBADIANDRIA Fidaxomicin (Fidaxomicin 200 Mg Tablet) 200 mg PO Q12H [facility] Last Admin: 08/24/24 08:34 Dose: 200 mg Documented By: ALBADIANDRIA Hydrocortisone (Hydrocortisone 2.5 % Rectal Cr 30 Gm Tube) 1 appl NE QID PRN PRN Reason: Itching Vancomycin HCl 500 mg/ Sodium (Chloride) 110 mls @ 110 mls/hr IV ONCE ONE Stop: 08/24/24 10:13 Lactic Acid (Ammonium Lactate 12 % Lotion 226 Gm Bottle) 1 appl TOPICAL DAILY PRN; Protocol PRN Reason: Dry Skin Magnesium Hydroxide (Milk Of Magnesia 30 Ml Oral.Susp) 30 ml PO DAILY PRN PRN Reason: Constipation Melatonin (Melatonin 3 Mg Tablet) 6 mg PO BEDTIME PRN PRN Reason: Insomnia Omeprazole (Omeprazole 20 Mg Capsule.Dr) 20 mg PO BID@0630,1630 [facility] Last Admin: 08/24/24 05:53 Dose: 20 mg Documented By: ELODIA Pharmacy Consult (Consult Rx Vancomycin Dosing) 1 each MISCELLANE DAILY PRN PRN Reason: Consult order Sodium Chloride (0.9 % Sodium Chloride Flush 3 Ml Syringe) 3 ml IVFLUSH QSHIFT [facility] Last Admin: 08/24/24 08:34 Dose: 3 ml Documented By: MICHAEL Sucralfate (Sucralfate 1 Gm Tablet) 1 gm PO QIDACHS [facility] Last Admin: 08/24/24 08:34 Dose: 1 gm Documented By: MICHAEL Labs 08/25/24 08:26 08/25/24 08:26 Labs: Laboratory Results - last 24 hr 08/22/24 08/23/24 08/24/24 16:11 18:00 02:16 MCV MCH MCHC RDW Plt Count MPV Immature Gran % (Auto) Neut % (Auto) Lymph % (Auto) [place] % (Auto) Eos % (Auto) Baso % (Auto) Lymph # (Auto) [place] # (Auto) Eos # (Auto) Baso # (Auto) Abs Immat Gran (auto) Absolute Neuts (auto) Absolute Nucleated RBC Nucleated RBC % (auto) Anion Gap Estim Creat Clear Calc Estimated GFR Random Glucose Lactic Acid 2.7 H* Lactic Acid F/U @ 2Hr Lactic Acid F/U @ 4Hr Calcium C. difficile Tox B Gene POSITIVE A* C. difficile Toxin A&B Positive A* C. difficile Interpret SEE NOTE Blood Type A Positive Antibody Screen NEGATIVE Crossmatch See Detail 08/24/24 08/24/24 04:49 06:58 MCV 92.1 MCH 29.9 MCHC 32.4 RDW 17.4 H Plt Count 17 L* D MPV Not Reportable Immature Gran % (Auto) 1.6 H Neut % (Auto) 86.9 H Lymph % (Auto) 3.5 L [place] % (Auto) 7.7 Eos % (Auto) 0.1 Baso % (Auto) 0.2 Lymph # (Auto) 0.7 L [place] # (Auto) 1.5 H Eos # (Auto) 0.0 Baso # (Auto) 0.0 Abs Immat Gran (auto) 0.31 H Absolute Neuts (auto) 16.5 H Absolute Nucleated RBC 0.000 Nucleated RBC % (auto) 0.0 Anion Gap 13 Estim Creat Clear Calc 12.9 Estimated GFR 16 Random Glucose 90 Lactic Acid Lactic Acid F/U @ 2Hr 2.1 H* Lactic Acid F/U @ 4Hr 2.8 H* Calcium 7.4 L C. difficile Tox B Gene C. difficile Toxin A&B C. difficile Interpret Blood Type Antibody Screen Crossmatch Assessment and Plan (1) Melena: Status: Acute (2) Thrombocytopenia: Status: Acute (3) NSTEMI (non-ST elevated myocardial infarction): Status: Acute Plan 78-year-old male with history of BPH, recurrent C diff colitis, hyperlipidemia, hypertension, history of alcohol use disorder, mild cognitive impairments, sick sinus syndrome s/p pacemaker placement, ESRD on HD MWF, chronic thrombocytopenia, history of pancolitis, history of extensive LLE DVT in may 2024 here with chest pain, Melana/gib and acute blood loss anemia. Chest pain, ruled NSTEMI, with intermediate trop of 143 down to 134. He is a very complex patient with multiple comorbidities elevated trops likely d/t anemia and possible from CKD Cardiology performed echo at bedside showing low-normal ejection fraction without any significant new regional wall motion abnormalities. Right ventricular function improved Cardiology recommending transfusion as anticoagulation can not be performed secondary to GI bleed and thrombocytopenia Conservative management otherwise HypOtension, probably multi factorial elevated WBC is chronic and not due to sepsis empiric Vanco Hold BP meds Has received IVF and albumin Continue Midodrine 5 tid, if persistently low will need ICU evaluation Acute on chronic GIB bleeding and acute on chronic blood loss anemia He's was transfused RBC 08/22, H/H has dropped some but ok IV PPI GI consulation: conservative management Monitor H/H and obviously avoid antiplat and anticoagulants Known LLE DVT, swollen leg, has IVC in place ESRD on HD MWF, He belongs to [facility] Nephro consult, he missed dialysis yesterday. Underwent today Recurrent Cdif, presently says he has little diarrhea GI Panel and C Diff pcr ordered Continue Dificid Acute on chronic thrombocytopenia, this has been chronic issue, etiology is not certain and likely multifactorial, Monitor for now and if dropping consider transfusion, in past was on eliquis but no longer on it Paroxysmal atrial fibrillation-rate controlled Has been on cardizemm amio and metoprolol in the past hold metoprolol and cardizem Hypertension resume meds after med rec Sick sinus syndrome Pacemaker in place DVT prophylaxis: compression device Code full code Ongoing inpt stay due to GI bleed requiring transfusion and NSTEMI which will require transfusions as needed, close cardiac monitoring, and close monitoring of blood counts as well as expert consultation Quality Stroke Does the patient have a stroke diagnosis?: No VTE Prior VTE?: Yes VTE Risk Level:: Medical - moderate - high VTE Device Contraindication: Procedure Contraindicated VTE Drug Contraindication: Treatment Not Tolerated
[2024-08-24 12:10] LABS: E. coli EAEC Not Detected (Not Detect.); E. coli EPEC Detected (Not Detect.); E. coli ETEC Not Detected (Not Detect.); E. coli STEC Not Detected (Not Detect.); Shigella sp./EIEC Not Detected (Not Detect.)
[2024-08-25] VITALS (8 sets, daily range): BP systolic 90–134; BP diastolic 50–63; PULSE 65–92; RESP 16–18; TEMP 36.1–36.8; O2SAT 92–98; BMI 17.6
[2024-08-25 08:41] LABS: Hematocrit 31.9 % (42.0-52.0); Hemoglobin 10.2 g/dl (14.0-18.0); Mean Corpuscular HGB Conc 32.0 g/dl (31.0-36.0); Mean Corpuscular Hemoglobin 29.4 pg (27.0-33.0); Mean Corpuscular Volume 91.9 fL (80.0-98.0); NRBC Abs Auto 0.000 X10*3/uL (0.0-0.012); NRBC Pct Auto 0.0 /100WBC (0.0-0.2); Red Blood Count 3.47 X10*6/uL (4.60-5.80); White Blood Count 14.8 X10*3/uL (4.8-10.8)
[2024-08-25 08:43] LABS: Platelet Count 33 X10*3/uL (160-400)
[2024-08-25 09:04] LABS: Anion Gap 10 (12-20); Blood Urea Nitrogen 15 mg/dL (9-16); Calcium 7.5 mg/dL (8.4-10.2); Carbon Dioxide 28 mmol/L (22-29); Chloride 105 mmol/L (96-108); Creatinine Clr Calc Pharmacy 19.7; Estimated Glomerular Filt Rate 26; Potassium 3.0 mmol/L (3.3-5.1); Sodium 140 mmol/L (135-145)
[2024-08-25] MEDS: Cholestyramine (With Sugar) 4 GM POWD.PACK PO (13:14)
[2024-08-25] MEDS: 0.9 % Sodium Chloride Flush 3 ML SYRINGE IVFLUSH ×3 (13:17→20:06)
--- NOTE | 2024-08-25 13:53 | MHC.CLN ---
PT IS MODERATELY MALNOURISHED PT WITH MILDLY DEPLETED SUBCUTANEOUS FAT AND MUSCLE MASS WITH 40% SIGNIFICANT WT LOSS X 1 YEAR AND BMI 17.6 DIET RX: REGULAR-APPROPRIATE RECOMMEND ADDING ENSURE BID TO PROVIDE 700KCALS, 40G PROTEIN MONITOR PO INTAKE AND ENCOURAGE SUPPLEMENTS SEE FULL ASSESSMENT
--- NOTE | 2024-08-25 19:02 | HE.PHANOTE ---
VANCO DOSE ADJUSTMENT BASED ON SCR AND TROUGH OF 11. 500MG GIVEN. NEXT LEVEL 08/27 @ 1800
[2024-08-26] VITALS (11 sets, daily range): BP systolic 106–196; BP diastolic 54–82; PULSE 60–141; RESP 16–20; TEMP 36.4–37; O2SAT 92–95
--- NOTE | 2024-08-26 01:07 | P.CONNP_ITS ---
History of Present Illness Reason for Consult Consult date: 08/25/24 Reason for consult: ESRD and HD management Chief Complaint Chief complaint: GIB History of Present Illness Narrative: RTANE cnsulted for HD management Adm with symptomatic anemia from GIB with pos Trops and chronic low PLTs S/P Xfusion HD cont MWF Multiple chronic med probs as ntoed below Curently comforatble with no complaints Review of Systems Review of Systems Presently no chest pain, swelling in legs, no sob, little diarrhea. All other systems are reviewed and negative. Yes all other systems are reviewed and are negative [facility] Past Medical History Medical History Sick sinus syndrome ESRD (end stage renal disease) on dialysis Pacemaker UTI (urinary tract infection) Ileus C. difficile colitis Acute renal failure BPH (benign prostatic hyperplasia) Sinus bradycardia Recto-vesical fistula End stage renal disease Postoperative hematoma involving digestive system following digestive system procedure Aftercare following left shoulder joint replacement surgery OA (osteoarthritis) Borderline hyperlipidemia Obesity HTN (hypertension) EtOH dependence Mild cognitive impairment Inhibited sex excitement Atrial fibrillation Cancer of kidney High cholesterol Hypertension Family History Family History Mother Heart problem Surgical History Surgical History Rectal carcinoma Malignant neoplasm of rectum Rectal mass Encounter for interrogation of cardiac pacemaker Atrial fibrillation with rapid ventricular response Social History Social History Household Members: Spouse Housing: House Do you presently have visiting nurse or other home services: Yes Unable to assess alcohol history related to: Unable to respond Alcohol intake: unknown Comment: PATIENT BEDBOUND AT THIS TIME Patient Tobacco Use Status: Former Tobacco user Tobacco use type: Cigarette e-Cigarette/Vaping Use: Never Used Second Hand Smoke Exposure: No Advance Directives Date on File: 11/29/22 service: Yes Meds Allergies Allergy/AdvReac Type Severity Reaction Status Date / Time No Known Allergies (NKA) Allergy Mild NOT Verified 08/22/24 08:52 APPLICABLE Active Medications: Current Medications Acetaminophen (Acetaminophen 325 Mg Tablet) 650 mg PO Q6H PRN PRN Reason: Pain, Mild 1-3,fever,headache Last Admin: 08/23/24 18:11 Dose: 650 mg Amiodarone HCl (Amiodarone Hcl 200 Mg Tablet) 200 mg PO DAILY [facility] Last Admin: 08/25/24 13:14 Dose: 200 mg Calcium Carbonate (Calcium Carbonate 750 Mg Tab.Chew) 750 mg PO Q4H PRN PRN Reason: Heartburn Cholestyramine Resin (Cholestyramine (With Sugar) 4 Gm Powd.Pack) 4 gm PO DAILY [facility] Last Admin: 08/25/24 13:14 Dose: 4 gm Fidaxomicin (Fidaxomicin 200 Mg Tablet) 200 mg PO Q12H [facility] Last Admin: 08/25/24 20:05 Dose: 200 mg Hydrocortisone (Hydrocortisone 2.5 % Rectal Cr 30 Gm Tube) 1 appl DC QID PRN PRN Reason: Itching Vancomycin HCl 500 mg/ Sodium (Chloride) 110 mls @ 110 mls/hr IV ONCE ONE Stop: 08/24/24 10:13 Lactic Acid (Ammonium Lactate 12 % Lotion 226 Gm Bottle) 1 appl TOPICAL DAILY PRN; Protocol PRN Reason: Dry Skin Magnesium Hydroxide (Milk Of Magnesia 30 Ml Oral.Susp) 30 ml PO DAILY PRN PRN Reason: Constipation Melatonin (Melatonin 3 Mg Tablet) 6 mg PO BEDTIME PRN PRN Reason: Insomnia Midodrine (Midodrine Hcl 5 Mg Tablet) 5 mg PO TID [facility] Last Admin: 08/25/24 19:52 Dose: Not Given Omeprazole (Omeprazole 20 Mg Capsule.Dr) 20 mg PO BID@0630,1630 [facility] Last Admin: 08/25/24 15:29 Dose: 20 mg Pharmacy Consult (Consult Rx Vancomycin Dosing) 1 each MISCELLANE DAILY PRN PRN Reason: Consult order Sodium Chloride (0.9 % Sodium Chloride Flush 3 Ml Syringe) 3 ml IVFLUSH QSHIFT [facility] Last Admin: 08/25/24 20:06 Dose: 3 ml Sucralfate (Sucralfate 1 Gm Tablet) 1 gm PO QIDACHS [facility] Last Admin: 08/25/24 20:05 Dose: 1 gm Home Medications ?Medication ?Instructions ?Recorded ?Confirmed ?Last Taken ?Type ammonium lactate 12 % lotion 1 appl topical DAILY PRN Dry Skin 06/02/24 08/22/24 Unknown History cholestyramine (with sugar) 4 gram 1 ea PO DAILY 06/0208/22/24 Unknown History powder for susp in a packet diltiazem HCl 240 mg 240 mg PO DAILY 06/02/2401/06 Unknown History capsule,extended release 24 hr pantoprazole 20 mg tablet,delayed 20 mg PO DAILY@0630 06/02/24 08/22/24 Unknown History release hydrocortisone 2.5 % topical cream 1 appl DC QID PRN I tching 08/22/24 08/22/24 Unknown History with perineal applicator lidocaine 4 % topical cream 1 appl topical DAILY PRN I tching 08/22/24 08/22/24 Unknown History vancomycin 125 mg capsule 125 mg PO MOWEFR 08/22/24 Unknown History Physical Exam Vital Signs: Last Vital Signs Temp 97.9 F 08/25/24 23:34 Pulse 73 08/25/24 23:34 Resp 16 08/25/24 23:34 BP 105/56 L 08/25/24 23:34 Pulse Ox 92 08/25/24 16:00 O2 Del Method Room Air 08/25/24 16:00 BMI result Body Mass Index 17.6 Const Other: Constitutional - Awake and Alert, No apparent distress, Alert & oriented x3 Eyes - PERRLA, EOMI Cardiovascular - S1S2, RRR, No edema Respiratory - Normal lung expansion, Normal respiratory effort, No respiratory distress, CTA bilaterally Chest- Right upper chest dialysis catheter in place without any purulent drainage or erythema Gastrointestinal - NT / ND; hyperactive BS, No rebound or guarding - R nephrostomy site without any purulent drainage or significant erythema. Extremities - no calf tenderness bilaterally, or palpable cords. +swelling/3+ edema LLE Musculoskeletal - Normal inspection, normal ROM Skin - Warm/Dry Neurological - No focal deficit Results Lab Results 08/25/24 08:26 08/25/24 08:26 Lab results: Chemistry 08/23/24 08/23/24 08/24/24 05:29 09:23 04:49 Sodium 137 138 138 Potassium 4.6 4.8 4.9 Carbon Dioxide 24 25 BUN 37 H 39 H 26 H Creatinine 4.97 H* 5.09 H* 3.76 H Calcium 7.2 L D 7.1 L 7.4 L 08/25/24 08:26 Sodium 140 Potassium 3.0 L D Carbon Dioxide 28 BUN 15 Creatinine 2.47 H Calcium 7.5 L Hematology 08/23/24 08/24/24 08/25/24 09:23 04:49 08:26 WBC 20.8 H 19.0 H 14.8 H Hgb 10.7 L D 8.3 L D 10.2 L D Plt Count 36 L D 17 L* D 33 L D Assessment and Plan (1) Melena: Status: Acute (2) Thrombocytopenia: Status: Acute (3) NSTEMI (non-ST elevated myocardial infarction): Status: Acute Plan 78-year-old male with history of BPH, recurrent C diff colitis, hyperlipidemia, hypertension, history of alcohol use disorder, mild cognitive impairments, sick sinus syndrome s/p pacemaker placement, ESRD on HD MWF, chronic thrombocytopenia, history of pancolitis, history of extensive LLE DVT in may 2024 here with chest pain, Melana/gib and acute blood loss anemia. ESRD: cont HD 3x/wk Anemia: GI blood loss s/p xfusion, nephrogenic anemia playing a role as well Low PLTs : chronic issue, multifact; consider Heme consult Low BPs: on midodrine, incr as needed REC: cont HD MWF, will follow w team Procedures Date of Service Date of Service: 08/26/24
[2024-08-26] MEDS: Cholestyramine (With Sugar) 4 GM POWD.PACK PO (08:23)
[2024-08-26] MEDS: 0.9 % Sodium Chloride Flush 3 ML SYRINGE IVFLUSH ×3 (08:23→20:59)
[2024-08-26 08:27] LABS: Hematocrit 29.9 % (42.0-52.0); Hemoglobin 9.4 g/dl (14.0-18.0); Mean Corpuscular HGB Conc 31.4 g/dl (31.0-36.0); Mean Corpuscular Hemoglobin 29.5 pg (27.0-33.0); Mean Corpuscular Volume 93.7 fL (80.0-98.0); NRBC Abs Auto 0.000 X10*3/uL (0.0-0.012); NRBC Pct Auto 0.0 /100WBC (0.0-0.2); Platelet Count 21 X10*3/uL (160-400); Red Blood Count 3.19 X10*6/uL (4.60-5.80); White Blood Count 10.4 X10*3/uL (4.8-10.8)
--- NOTE | 2024-08-26 10:43 | HO.PM.IMPN ---
Subjective Subjective Date of Service: 08/26/24 Interval History: Seen and examined Interval history:He is reporting less diarrhea, Plat still low at 21, no active bleed Review of Systems Review of Systems: Yes all other systems are reviewed and are negative Physical Exam Vital Signs: Vital Signs: Last Vital Signs Temp 98.6 F 08/26/24 07:36 Pulse 70 08/26/24 07:36 Resp 18 08/26/24 07:36 BP 109/54 L 08/26/24 08:23 Pulse Ox 92 08/25/24 16:00 O2 Del Method Room Air 08/25/24 16:00 BMI result Body Mass Index 17.6 Constitutional - Awake and Alert, No apparent distress Eyes - PERRLA, EOMI Cardiovascular - S1S2, RRR, No edema Respiratory - Normal lung expansion, Normal respiratory effort, No respiratory distress, CTA bilaterally Gastrointestinal - NT / ND; +BS; No rebound or guarding Extremities - no calf tenderness bilaterally, no swelling Skin - Warm/Dry Neurological - Alert & oriented x3 Psychological - Appropriate affect Const: Other: Constitutional - Awake and Alert, No apparent distress, Alert & oriented x3 Eyes - PERRLA, EOMI Cardiovascular - S1S2, RRR, No edema Respiratory - Normal lung expansion, Normal respiratory effort, No respiratory distress, CTA bilaterally Chest- Right upper chest dialysis catheter in place without any purulent drainage or erythema Gastrointestinal - NT / ND; hyperactive BS, No rebound or guarding - R nephrostomy site without any purulent drainage or significant erythema. Extremities - no calf tenderness bilaterally, or palpable cords. +swelling/3+ edema LLE Musculoskeletal - Normal inspection, normal ROM Skin - Warm/Dry Neurological - No focal deficit Objective Data Active Medications Acetaminophen (Acetaminophen 325 Mg Tablet) 650 mg PO Q6H PRN PRN Reason: Pain, Mild 1-3,fever,headache Last Admin: 08/23/24 18:11 Dose: 650 mg Documented By: MICHAEL Amiodarone HCl (Amiodarone Hcl 200 Mg Tablet) 200 mg PO DAILY [facility] Last Admin: 08/26/24 08:23 Dose: 200 mg Documented By: WESLY Calcium Carbonate (Calcium Carbonate 750 Mg Tab.Chew) 750 mg PO Q4H PRN PRN Reason: Heartburn Cholestyramine Resin (Cholestyramine (With Sugar) 4 Gm Powd.Pack) 4 gm PO DAILY [facility] Last Admin: 08/26/24 08:23 Dose: 4 gm Documented By: WESLY Fidaxomicin (Fidaxomicin 200 Mg Tablet) 200 mg PO Q12H [facility] Last Admin: 08/26/24 08:23 Dose: 200 mg Documented By: WESLY Hydrocortisone (Hydrocortisone 2.5 % Rectal Cr 30 Gm Tube) 1 appl [place] QID PRN PRN Reason: Itching Vancomycin HCl 500 mg/ Sodium (Chloride) 110 mls @ 110 mls/hr IV ONCE ONE Stop: 08/24/24 10:13 Lactic Acid (Ammonium Lactate 12 % Lotion 226 Gm Bottle) 1 appl TOPICAL DAILY PRN; Protocol PRN Reason: Dry Skin Magnesium Hydroxide (Milk Of Magnesia 30 Ml Oral.Susp) 30 ml PO DAILY PRN PRN Reason: Constipation Melatonin (Melatonin 3 Mg Tablet) 6 mg PO BEDTIME PRN PRN Reason: Insomnia Midodrine (Midodrine Hcl 5 Mg Tablet) 5 mg PO TID [facility] Last Admin: 08/26/24 08:23 Dose: 5 mg Documented By: WESLY Omeprazole (Omeprazole 20 Mg Capsule.) 20 mg PO BID@0630,1630 [facility] Last Admin: 08/26/24 05:31 Dose: 20 mg Documented By: SOCORRO Pharmacy Consult (Consult Rx Vancomycin Dosing) 1 each MISCELLANE DAILY PRN PRN Reason: Consult order Sodium Chloride (0.9 % Sodium Chloride Flush 3 Ml Syringe) 3 ml IVFLUSH QSHIFT [facility] Last Admin: 08/26/24 08:23 Dose: 3 ml Documented By: WESLY Sucralfate (Sucralfate 1 Gm Tablet) 1 gm PO QIDACHS [facility] Last Admin: 08/26/24 08:33 Dose: 1 gm Documented By: WESLY Labs 08/26/24 08:18 08/25/24 08:26 Labs: Laboratory Results - last 24 hr 08/25/24 08/26/24 18:28 08:18 MCV 93.7 MCH 29.5 MCHC 31.4 RDW 17.2 H Plt Count 21 L D MPV TNP Absolute Nucleated RBC 0.000 Nucleated RBC % (auto) 0.0 Random Vancomycin 11.0 L Microbiology Microbiology Results: Microbiology 08/24/24 08:44 Blood Culture - Preliminary Blood - Venous No growth after 24 hours. 08/24/24 08:44 Blood Culture - Preliminary Blood - Venous No growth after 24 hours. Assessment and Plan (1) Melena: Status: Acute (2) Thrombocytopenia: Status: Acute (3) NSTEMI (non-ST elevated myocardial infarction): Status: Acute Plan 78-year-old male with history of BPH, recurrent C diff colitis, hyperlipidemia, hypertension, history of alcohol use disorder, mild cognitive impairments, sick sinus syndrome s/p pacemaker placement, ESRD on HD MWF, chronic thrombocytopenia, history of pancolitis, history of extensive LLE DVT in may 2024 here with chest pain, Melana/gib and acute blood loss anemia. Chest pain, ruled NSTEMI, with intermediate trop of 143 down to 134. He is a very complex patient with multiple comorbidities elevated trops likely d/t anemia and possible from CKD Cardiology performed echo at bedside showing low-normal ejection fraction without any significant new regional wall motion abnormalities. Right ventricular function improved Cardiology recommending transfusion as anticoagulation can not be performed secondary to GI bleed and thrombocytopenia Conservative management otherwise HypOtension, probably multi factorial elevated WBC is chronic and not due to sepsis empiric Vanco IV stopped Hold BP meds Has received IVF and albumin Continue Midodrine 5 tid Acute on chronic GIB bleeding and acute on chronic blood loss anemia He's was transfused RBC 08/22, H/H has dropped some but ok, hgb 9.2 IV PPI to PO GI consulation: conservative management Monitor H/H and obviously avoid antiplat and anticoagulants Known LLE DVT, swollen leg, has IVC in place, not candidate for antiocoagulation d/t recurrent gi bleedinga and low platlets ESRD on HD MWF, He belongs to [facility] Nephro consult, he missed dialysis yesterday. Underwent today Recurrent Cdif, presently says he has little diarrhea GI Panel and C Diff pcr ordered Continue Dificid Acute on chronic thrombocytopenia, this has been chronic issue, etiology is not certain and likely multifactorial, Monitor for now and if dropping consider transfusion, in past was on eliquis but no longer on it..Hematology following Paroxysmal atrial fibrillation-rate controlled Has been on cardizemm amio and metoprolol in the past hold metoprolol and cardizem in light of low BPs Hypertension, BP on low side, hold meds Sick sinus syndrome Pacemaker in place DVT prophylaxis: compression device Code full code Ongoing inpt stay due to GI bleed requiring transfusion and NSTEMI which will require transfusions as needed, close cardiac monitoring, and close monitoring of blood counts as well as expert consultation Quality Stroke Does the patient have a stroke diagnosis?: No VTE Prior VTE?: Yes VTE Risk Level:: Medical - moderate - high VTE Device Contraindication: Procedure Contraindicated VTE Drug Contraindication: Treatment Not Tolerated
--- NOTE | 2024-08-26 12:32 | PM.EVENT ---
Chart reviewed. Patient has been seen multiple times for recurrent thrombocytopenia. He is now admitted for persistent C diff positive diarrhea and worsening thrombocytopenia. On his last admission he was diagnosed with left lower extremity DVT. He had IVC filter placed as he could not be anticoagulated. He was ruled out for heparin induced thrombocytopenia, DIC and TTP. 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 At the time of discharge his platelets were 53 K. Is currently admitted for recurrent anemia secondary to GI bleed. He has also thrombocytopenia. He received blood and platelet transfusion. He remains C diff positive. Submit coagulation tests to rule out DIC. Agree with platelet transfusion to keep his numbers about 30. If sepsis was ruled out, trial of steroids.
--- NOTE | 2024-08-26 13:08 | PM.HEMONCPN ---
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 difficile colitis Cancer of kidney End stage renal disease ESRD (end stage renal disease) on dialysis EtOH dependence High cholesterol HTN (hypertension) Hypertension Ileus Inhibited sex excitement Mild cognitive impairment OA (osteoarthritis) Obesity Pacemaker Postoperative hematoma involving digestive system following digestive system procedure Recto-vesical fistula Sick sinus syndrome Sinus bradycardia UTI (urinary tract infection) Family History: Family History (Last Reviewed 08/25/24 @ 13:12 by Marily German MD) Mother Heart problem Surgical History: Surgical History (Last Reviewed 08/25/24 @ 13:12 by Marily German MD) Atrial fibrillation with rapid ventricular response Encounter for interrogation of cardiac pacemaker Malignant neoplasm of rectum Rectal carcinoma Rectal mass Social History: Social History (Last Reviewed 08/25/24 @ 13:12 by Marily German MD) Living Situation History: Household Members: Spouse Housing: House Do you presently have visiting nurse or other home services: Yes Alcohol History: Unable to assess alcohol history related to: Unable to respond Tobacco History: Patient Tobacco Use Status: Former Tobacco user Tobacco use type: Cigarette e-Cigarette/Vaping Use: Never Used Second Hand Smoke Exposure: No Advance Directives: Advance Directives Date on File: 11/29/22 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 Home Medications and Allergies Current Medications: Current Medications Acetaminophen (Acetaminophen 325 Mg Tablet) 650 mg PO Q6H PRN PRN Reason: Pain, Mild 1-3,fever,headache Last Admin: 08/23/24 18:11 Dose: 650 mg Amiodarone HCl (Amiodarone Hcl 200 Mg Tablet) 200 mg PO DAILY [facility] Last Admin: 08/26/24 08:23 Dose: 200 mg Calcium Carbonate (Calcium Carbonate 750 Mg Tab.Chew) 750 mg PO Q4H PRN PRN Reason: Heartburn Cholestyramine Resin (Cholestyramine (With Sugar) 4 Gm Powd.Pack) 4 gm PO DAILY [facility] Last Admin: 08/26/24 08:23 Dose: 4 gm Fidaxomicin (Fidaxomicin 200 Mg Tablet) 200 mg PO Q12H [facility] Last Admin: 08/26/24 08:23 Dose: 200 mg Hydrocortisone (Hydrocortisone 2.5 % Rectal Cr 30 Gm Tube) 1 appl IN QID PRN PRN Reason: Itching Lactic Acid (Ammonium Lactate 12 % Lotion 226 Gm Bottle) 1 appl TOPICAL DAILY PRN; Protocol PRN Reason: Dry Skin Magnesium Hydroxide (Milk Of Magnesia 30 Ml Oral.Susp) 30 ml PO DAILY PRN PRN Reason: Constipation Melatonin (Melatonin 3 Mg Tablet) 6 mg PO BEDTIME PRN PRN Reason: Insomnia Midodrine (Midodrine Hcl 5 Mg Tablet) 5 mg PO TID [facility] Last Admin: 08/26/24 08:23 Dose: 5 mg Omeprazole (Omeprazole 20 Mg Capsule.Dr) 20 mg PO BID@0630,1630 [facility] Last Admin: 08/26/24 05:31 Dose: 20 mg Pharmacy Consult (Consult Rx Vancomycin Dosing) 1 each MISCELLANE DAILY PRN PRN Reason: Consult order Sodium Chloride (0.9 % Sodium Chloride Flush 3 Ml Syringe) 3 ml IVFLUSH QSHIFT [facility] Last Admin: 08/26/24 08:23 Dose: 3 ml Sucralfate (Sucralfate 1 Gm Tablet) 1 gm PO QIDACHS [facility] Last Admin: 08/26/24 08:33 Dose: 1 gm Home Medications ?Medication ?Instructions ?Recorded ?Confirmed ?Type ammonium lactate 12 % lotion 1 appl topical DAILY PRN Dry Skin 06/02/24 08/22/24 History cholestyramine (with sugar) 4 gram 1 ea PO DAILY 06/02/24 08/22/24 History powder for susp in a packet diltiazem HCl 240 mg 240 mg PO DAILY 06/02/24 08/22/24 History capsule,extended release 24 hr pantoprazole 20 mg tablet,delayed 20 mg PO DAILY@0630 06/02/24 08/22/24 History release hydrocortisone 2.5 % topical cream 1 appl IN QID PRN Itching 08/22/24 08/22/24 History with perineal applicator lidocaine 4 % topical cream 1 appl topical DAILY PRN Itching 08/22/24 08/22/24 History vancomycin 125 mg capsule 125 mg PO MOWEFR 08/22/24 08/22/24 History Allergies Allergy/AdvReac Type Severity Reaction Status Date / Time No Known Allergies (NKA) Allergy Mild NOT Verified 08/22/24 08:52 APPLICABLE Exam Vital signs: Vital Signs Temp 98 F 08/26/24 11:32 Pulse 65 08/26/24 11:32 Resp 18 08/26/24 11:32 BP 106/54 L 08/26/24 11:32 Pulse Ox 92 08/25/24 16:00 O2 Del Method Room Air 08/25/24 16:00 Intake & Output 08/25/24 08/26/24 08/26/24 18:59 06:59 18:59 Intake Total 360 / 710 350 / 710 Balance 360 / 710 350 / 710 Intake: Intake, Oral Amount 360 / 600 240 / 600 Intake, IV Amount 110 / 110 vancomycin HCL 500 mg In 0.9 % 110 / 110 Sodium Chloride 100 ml @ 110 mls/hr IV ONCE ONE Rx#: [id number] Other: Number of Bowel Movements 3 2 Last Bowel Movement 08/25/24 08/26/24 Stool Incontinent Incontinent Stool Amount Large Moderate Stool Color Brown Brown Stool Consistency Liquid Liquid Weight 55.8 kg Weight 55.8 kg BMI result Body Mass Index 17.6 Data - Labs CBC & Chem 7: 08/26/24 08:18 08/25/24 08:26 Labs: Laboratory Last Values WBC 10.4 X10*3/uL (4.8-10.8) 08/26/24 08:18 RBC 3.19 X10*6/uL (4.60-5.80) L 08/26/24 08:18 Hgb 9.4 g/dl (14.0-18.0) L 08/26/24 08:18 Hct 29.9 % (42.0-52.0) L 08/26/24 08:18 MCV 93.7 fL (80.0-98.0) 08/26/24 08:18 MCH 29.5 pg (27.0-33.0) 08/26/24 08:18 MCHC 31.4 g/dl (31.0-36.0) 08/26/24 08:18 RDW 17.2 % (11.0-16.0) H 08/26/24 08:18 Plt Count 21 X10*3/uL (160-400) L D 08/26/24 08:18 MPV TNP 08/26/24 08:18 Immature Gran % (Auto) 1.6 % (0.0-0.4) H 08/24/24 04:49 Neut % (Auto) 86.9 % (45-73) H 08/24/24 04:49 Lymph % (Auto) 3.5 % (20-40) L 08/24/24 04:49 [place] % (Auto) 7.7 % (2-11) 08/24/24 04:49 Eos % (Auto) 0.1 % (0-4) 08/24/24 04:49 Baso % (Auto) 0.2 % (0-2) 08/24/24 04:49 Lymph # (Auto) 0.7 X10*3/uL (1.2-4.9) L 08/24/24 04:49 [place] # (Auto) 1.5 X10*3/uL (0.1-1.2) H 08/24/24 04:49 Eos # (Auto) 0.0 X10*3/uL (0.0-0.4) 08/24/24 04:49 Baso # (Auto) 0.0 X10*3/uL (0.0-0.2) 08/24/24 04:49 Abs Immat Gran (auto) 0.31 X10*3/uL (0.00-0.03) H 08/24/24 04:49 Absolute Neuts (auto) 16.5 x10*3/uL (2.0-8.3) H 08/24/24 04:49 Absolute Nucleated RBC 0.000 X10*3/uL (0.0-0.012) 08/26/24 08:18 Nucleated RBC % (auto) 0.0 /100WBC (0.0-0.2) 08/26/24 08:18 Smear Tech's Comments VERIFIED 08/23/24 09:23 PT 14.0 SEC (10.9-12.4) H 08/22/24 21:17 INR 1.2 (0.9-1.1) H 08/22/24 21:17 Sodium 140 mmol/L (135-145) 08/25/24 08:26 Potassium 3.0 mmol/L (3.3-5.1) L D 08/25/24 08:26 Chloride 105 mmol/L (96-108) 08/25/24 08:26 Carbon Dioxide 28 mmol/L (22-29) 08/25/24 08:26 Anion Gap 10 (12-20) L 08/25/24 08:26 BUN 15 mg/dL (9-16) 08/25/24 08:26 Creatinine 2.47 mg/dL (0.5-1.4) H 08/25/24 08:26 Estim Creat Clear Calc 19.7 08/25/24 08:26 Estimated GFR 26 08/25/24 08:26 Random Glucose 77 mg/dL (60-115) 08/25/24 08:26 Lactic Acid 2.7 mmol/L (0.5-2.0) H* 08/24/24 02:16 Lactic Acid F/U @ 2Hr 2.1 mmol/L (0.5-2.0) H* 08/24/24 04:49 Lactic Acid F/U @ 4Hr 2.8 mmol/L (0.5-2.0) H* 08/24/24 06:58 Calcium 7.5 mg/dL (8.4-10.2) L 08/25/24 08:26 Magnesium 2.0 mg/dL (1.6-2.6) 08/22/24 09:17 Total Bilirubin 1.2 mg/dL (0.0-1.0) H 08/23/24 05:29 Direct Bilirubin 0.3 mg/dL (0.0-0.5) 08/22/24 09:17 AST 14 U/L (5-37) 08/23/24 05:29 ALT < 6 U/L (0-40) 08/23/24 05:29 Alkaline Phosphatase 89 U/L (39-117) 08/23/24 05:29 Troponin I High Sens 134.9 ng/L (<3.5-35.0) H* 08/22/24 12:04 B-Natriuretic Peptide 262 pg/mL (<100) H 08/22/24 09:17 Total Protein 4.3 g/dL (6.5-8.0) L 08/23/24 05:29 Albumin 1.9 g/dL (3.5-5.0) L 08/23/24 05:29 Stool Occult Blood POSITIVE (NEGATIVE) 08/22/24 14:36 Stl C. cayetanensis PCR Not Detected (Not Detect.) 08/23/24 18:00 Stool Rotavirus A PCR Not Detected (Not Detect.) 08/23/24 18:00 Stl Adenov F 40/41 PCR Not Detected (Not Detect.) 08/23/24 18:00 Stool Astrovirus (PCR) Not Detected (Not Detect.) 08/23/24 18:00 Stool Campylobacter PCR Not Detected (Not Detect.) 08/23/24 18:00 Stool Cryptosporidium PCR Not Detected (Not Detect.) 08/23/24 18:00 Stl Sh Tox Pr E STEC PCR Not Detected (Not Detect.) 08/23/24 18: Stool E coli O157 PCR Not applicable (Not Detect.) 08/23/24 18:00 Stl Enterotoxigenic E PCR Not Detected (Not Detect.) 08/23/24 18:00 Stool EPEC (PCR) Detected (Not Detect.) A 08/23/24 18:00 Stool EAEC (PCR) Not Detected (Not Detect.) 08/23/24 18:00 Stl E. histolytica PCR Not Detected (Not Detect.) 08/23/24 18:00 Stool Giardia Lamblia PCR Not Detected (Not Detect.) 08/23/24 18:00 Stl P. shigelloides PCR Not Detected (Not Detect.) 08/23/24 18:00 Stool Salmonella PCR Not Detected (Not Detect.) 08/23/24 18:00 Stool Sapovirus (PCR) Not Detected (Not Detect.) 08/23/24 18:00 Stl Shigella/EIEC PCR Not Detected (Not Detect.) 08/23/24 18:00 St Y.enterocolitica PCR Not Detected (Not Detect.) 08/23/24 18:00 Stool Vibrio (PCR) Not Detected (Not Detect.) 08/23/24 18:00 Stl Vibrio cholerae PCR Not Detected (Not Detect.) 08/23/24 18:00 Stl Norovirus GI/GII PCR Not Detected (Not Detect.) 08/23/24 18:00 Random Vancomycin 11.0 mcg/mL (15-20) L 08/25/24 18:28 C. difficile Tox B Gene POSITIVE (Negative) A* 08/23/24 18:00 C. difficile Toxin A&B Positive (Negative) A* 08/23/24 18:00 C. difficile Interpret SEE NOTE 08/23/24 18:00 Blood Type A Positive 08/22/24 16:11 Antibody Screen NEGATIVE 08/22/24 16:11 Crossmatch See Detail 08/22/24 16:11 - Imaging Radiologist's impression: ITS Impressions Chest X-Ray 08/22/24 07:56 IMPRESSION: 1. Stable dialysis catheter and right chest wall pacemaker. 2. COPD with no active pulmonary disease. Previously seen patchy airspace disease and left effusion has resolved. Electronically signed by: Lior Lewis MD 08/22/2024 09:14 AM EDT RP Chest CTA 08/22/24 14:36 IMPRESSION: 1. There is no evidence of pulmonary embolus. There is no evidence of acute aortic syndrome. 2. There is moderate centrilobular and paraseptal emphysema. There is a small layering left pleural effusion. Lungs are otherwise clear without consolidation or abnormal opacities. 3. There is a possible left renal mass measuring 1.5 x 1.3 cm, incompletely imaged. Recommend correlating with ultrasound. This was mentioned on the prior CT 06/13/2024. This was present 07/01/2022 CT abdomen/pelvis and currently appears slightly larger, raising suspicion of neoplasm. 4. There are numerous ancillary findings as discussed in the body of the report. Electronically signed by: Lior Lewis MD 08/22/2024 04:17 PM EDT RP
[2024-08-26 13:22] LABS: Fibrinogen 121 MG/DL (259-690); INTERNATIONAL NORM RATIO 1.2 (0.9-1.1); Prothrombin Time 13.7 SEC (10.9-12.4)
[2024-08-26 13:25] LABS: Partial Thromboplastin Time 41.2 SEC (26.0-36.8)
--- NOTE | 2024-08-26 13:34 | W.PM.IDCN ---
History of Present Illness Data of Consult Service Date: 08/25/24 Requesting physician: Facundo Addison Primary Care Provider: Joao Duncan MD HPI Reason for consult: concern over Cdiff He presents with chest pain and weakness. He has melena. He has had Cdiff and is on prophylactic treatment with po Vancomycin ,,Sunday 125mg. He has had two bowel movements today,melena and has Cdiff positive. Review of Systems Review of Systems: Yes all other systems are reviewed and are negative [facility] Past Medical History Medical History Sick sinus syndrome ESRD (end stage renal disease) on dialysis Pacemaker UTI (urinary tract infection) Ileus C. difficile colitis Acute renal failure BPH (benign prostatic hyperplasia) Sinus bradycardia Recto-vesical fistula End stage renal disease Postoperative hematoma involving digestive system following digestive system procedure Aftercare following left shoulder joint replacement surgery OA (osteoarthritis) Borderline hyperlipidemia Obesity HTN (hypertension) EtOH dependence Mild cognitive impairment Inhibited sex excitement Atrial fibrillation Cancer of kidney High cholesterol Hypertension Family History Family History Mother Heart problem Family history: reviewed and not pertinent Surgical History Surgical History Rectal carcinoma Malignant neoplasm of rectum Rectal mass Encounter for interrogation of cardiac pacemaker Atrial fibrillation with rapid ventricular response Social History Social History Household Members: Spouse Housing: House Do you presently have visiting nurse or other home services: Yes Unable to assess alcohol history related to: Unable to respond Alcohol intake: unknown Comment: PATIENT BEDBOUND AT THIS TIME Patient Tobacco Use Status: Former Tobacco user Tobacco use type: Cigarette e-Cigarette/Vaping Use: Never Used Second Hand Smoke Exposure: No Advance Directives Date on File: 11/29/22 service: Yes Meds Allergies Allergy/AdvReac Type Severity Reaction Status Date / Time No Known Allergies (NKA) Allergy Mild NOT Verified 08/22/24 08:52 APPLICABLE Active Medications: Current Medications Acetaminophen (Acetaminophen 325 Mg Tablet) 650 mg PO Q6H PRN PRN Reason: Pain, Mild 1-3,fever,headache Last Admin: 08/23/24 18:11 Dose: 650 mg Amiodarone HCl (Amiodarone Hcl 200 Mg Tablet) 200 mg PO DAILY [facility] Last Admin: 08/26/24 08:23 Dose: 200 mg Calcium Carbonate (Calcium Carbonate 750 Mg Tab.Chew) 750 mg PO Q4H PRN PRN Reason: Heartburn Cholestyramine Resin (Cholestyramine (With Sugar) 4 Gm Powd.Pack) 4 gm PO DAILY [facility] Last Admin: 08/26/24 08:23 Dose: 4 gm Hydrocortisone (Hydrocortisone 2.5 % Rectal Cr 30 Gm Tube) 1 appl ND QID PRN PRN Reason: Itching Lactic Acid (Ammonium Lactate 12 % Lotion 226 Gm Bottle) 1 appl TOPICAL DAILY PRN; Protocol PRN Reason: Dry Skin Magnesium Hydroxide (Milk Of Magnesia 30 Ml Oral.Susp) 30 ml PO DAILY PRN PRN Reason: Constipation Melatonin (Melatonin 3 Mg Tablet) 6 mg PO BEDTIME PRN PRN Reason: Insomnia Midodrine (Midodrine Hcl 5 Mg Tablet) 5 mg PO TID [facility] Last Admin: 08/26/24 08:23 Dose: 5 mg Omeprazole (Omeprazole 20 Mg Capsule.Dr) 20 mg PO BID@0630,1630 [facility] Last Admin: 08/26/24 05:31 Dose: 20 mg Pharmacy Consult (Consult Rx Vancomycin Dosing) 1 each MISCELLANE DAILY PRN PRN Reason: Consult order Sodium Chloride (0.9 % Sodium Chloride Flush 3 Ml Syringe) 3 ml IVFLUSH QSHIFT [facility] Last Admin: 08/26/24 08:23 Dose: 3 ml Sucralfate (Sucralfate 1 Gm Tablet) 1 gm PO QIDACHS [facility] Last Admin: 08/26/24 13:23 Dose: 1 gm Home Medications ?Medication ?Instructions ?Recorded ?Confirmed ?Last Taken ?Type ammonium lactate 12 % lotion 1 appl topical DAILY PRN Dry Skin 06/02/24 08/22/24 Unknown History cholestyramine (with sugar) 4 gram 1 ea PO DAILY 06/02/24 08/22/24 Unknown History powder for susp in a packet diltiazem HCl 240 mg 240 mg PO DAILY 06/02/24 08/22/24 Unknown History capsule,extended release 24 hr pantoprazole 20 mg tablet,delayed 20 mg PO DAILY@0630 06/02/24 08/22/24 Unknown History release hydrocortisone 2.5 % topical cream 1 appl ND QID PRN Itching 08/22/24 08/22/24 Unknown History with perineal applicator lidocaine 4 % topical cream 1 appl topical DAILY PRN Itching 08/22/24 08/22/24 Unknown History vancomycin 125 mg capsule 125 mg PO MOWEFR 08/22/24 08/22/24 Unknown History Physical Exam Vital Signs: Vital Signs: Last Vital Signs Temp 98 F 08/26/24 11:32 Pulse 65 08/26/24 11:32 Resp 18 08/26/24 11:32 BP 106/54 L 08/26/24 11:32 Pulse Ox 92 08/25/24 16:00 O2 Del Method Room Air 08/25/24 16:00 BMI result Body Mass Index 17.6 Const: General: cooperative HEENT: Head: Yes normal to inspection Face and sinus: Yes normal facial exam Mouth: Normal oral and palatal mucosa present Teeth and gingiva: dentition normal Eyes: General: appearance normal, both eyes and all related structures Pupils: Equal, round and reactive pupils present Resp: Effort & Inspection: normal respiratory effort Cardio: Rate: regular rate Rhythm: regular rhythm GI: Palpation (GI): Soft to palpation and nontender : General: Yes no CVA tenderness Back/Spine/Pelvis: Back: no CVA tenderness Skin: General skin exam: no rashes or lesions noted Neuro: General: moves all extremities Cranial nerves: Yes Equal, round and reactive pupils present Extrem: General: Yes normal to inspection Psych: Appearance: grossly normal Results Labs 08/26/24 08:18 08/25/24 08:26 Labs: Short CBC 08/26/24 Range/Units 08:18 WBC 10.4 (4.8-10.8) X10*3/uL Hgb 9.4 L (14.0-18.0) g/dl Hct 29.9 L (42.0-52.0) % Plt Count 21 L D (160-400) X10*3/uL Microbiology Microbiology Results: Microbiology 08/24/24 08:44 Blood - Venous Blood Culture - Preliminary No growth after 48 hours. 08/24/24 08:44 Blood - Venous Blood Culture - Preliminary No growth after 48 hours. Assessment and Plan (1) Melena: Status: Acute (2) Recurrent Clostridioides difficile diarrhea: Status: Acute Plan He presents for chest pain. He has GI bleed with melena. 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 He is on preventive po Vancomycin so doubt Cdiff cause of acute bleeding He can continue preventive Vancomycin. Continue investigation GI bleed through GI
--- NOTE | 2024-08-26 15:21 | PM.HEMONCCN ---
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 Patient had [place] [facility] [place] 04/18/2024 following which he was in a residential for 3 weeks and just got home a few days back. He says he came back to the hospital because of recurrent diarrhea as well as pain at the site of right nephrostomy tube. He says he is unable to sleep at night because of this. He had right nephrostomy tube placed in March 2024 because of disruption of distal right ureter which may have occurred during reversal of colostomy performed at [facility] as per urology. During the prolonged hospitalization in March and April 2024 patient had developed severe thrombocytopenia with platelet counts below 20 K. he also developed GI bleeding requiring 3 units PRBC transfusion. EGD showed gastritis, duodenitis and candidal esophagitis that was treated with Diflucan. 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 His Eliquis was stopped. Thrombocytopenia was felt to be multifactorial, related to sepsis with Klebsiella line infection, use of antibiotics, as well as previous alcohol use, splenomegaly. At the time of discharge his platelet counts had come up to about 85 K. During that same admission he was noted to have obstruction of the right distal ureter and right PCN was placed on 04/08/2024. He noticed swelling in his left leg since 05/31/2024. He was diagnosed with extensive DVT in the left leg extending into popliteal, femoral, proximal femoral veins. Because of severe thrombocytopenia he could not be anticoagulated. He was not taking Eliquis since he left the hospital on April 18. He received platelet transfusion and underwent IVC filter placement on 06/04/2024. Patient was admitted on 08/22/2024 for chest pain, who was diagnosed with NSTEMI. He was also noticed to have drop in hemoglobin which was felt to be GI bleeding. He was started on IV PPI and given blood and platelet transfusion. He continues to have some diarrhea and remains positive for C diff. Review of Systems - Constitutional Reports as per [facility] Medical History: Medical History (Last Reviewed 08/26/24 @ 13:42 by Marily German MD) Acute renal failure Aftercare following left shoulder joint replacement surgery Atrial fibrillation Borderline hyperlipidemia BPH (benign prostatic hyperplasia) C. difficile colitis Cancer of kidney End stage renal disease ESRD (end stage renal disease) on dialysis EtOH dependence High cholesterol HTN (hypertension) Hypertension Ileus Inhibited sex excitement Mild cognitive impairment OA (osteoarthritis) Obesity Pacemaker Postoperative hematoma involving digestive system following digestive system procedure Recto-vesical fistula Sick sinus syndrome Sinus bradycardia UTI (urinary tract infection) Family History: Family History (Last Reviewed 08/26/24 @ 13:42 by Marily German MD) Mother Heart problem Family history: reviewed and not pertinent Surgical History: Surgical History (Last Reviewed 08/26/24 @ 13:42 by Marily German MD) Atrial fibrillation with rapid ventricular response Encounter for interrogation of cardiac pacemaker Malignant neoplasm of rectum Rectal carcinoma Rectal mass Social History: Social History (Last Reviewed 08/26/24 @ 13:42 by Marily German MD) Living Situation History: Household Members: Spouse Housing: House Do you presently have visiting nurse or other home services: Yes Alcohol History: Unable to assess alcohol history related to: Unable to respond Tobacco History: Patient Tobacco Use Status: Former Tobacco user Tobacco use type: Cigarette e-Cigarette/Vaping Use: Never Used Second Hand Smoke Exposure: No Advance Directives: Advance Directives Date on File: 11/29/22 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 Home Medications and Allergies Current Medications: Current Medications Acetaminophen (Acetaminophen 325 Mg Tablet) 650 mg PO Q6H PRN PRN Reason: Pain, Mild 1-3,fever,headache Last Admin: 08/23/24 18:11 Dose: 650 mg Amiodarone HCl (Amiodarone Hcl 200 Mg Tablet) 200 mg PO DAILY [facility]ILE Last Admin: 08/26/24 08:23 Dose: 200 mg Calcium Carbonate (Calcium Carbonate 750 Mg Tab.Chew) 750 mg PO Q4H PRN PRN Reason: Heartburn Cholestyramine Resin (Cholestyramine (With Sugar) 4 Gm Powd.Pack) 4 gm PO DAILY NILE Last Admin: 08/26/24 08:23 Dose: 4 gm Hydrocortisone (Hydrocortisone 2.5 % Rectal Cr 30 Gm Tube) 1 appl IN QID PRN PRN Reason: Itching Lactic Acid (Ammonium Lactate 12 % Lotion 226 Gm Bottle) 1 appl TOPICAL DAILY PRN; Protocol PRN Reason: Dry Skin Magnesium Hydroxide (Milk Of Magnesia 30 Ml Oral.Susp) 30 ml PO DAILY PRN PRN Reason: Constipation Melatonin (Melatonin 3 Mg Tablet) 6 mg PO BEDTIME PRN PRN Reason: Insomnia Midodrine (Midodrine Hcl 5 Mg Tablet) 5 mg PO TID [facility] Last Admin: 08/26/24 08:23 Dose: 5 mg Omeprazole (Omeprazole 20 Mg Capsule.Dr) 20 mg PO BID@0630,1630 [facility] Last Admin: 08/26/24 05:31 Dose: 20 mg Pharmacy Consult (Consult Rx Vancomycin Dosing) 1 each MISCELLANE DAILY PRN PRN Reason: Consult order Sodium Chloride (0.9 % Sodium Chloride Flush 3 Ml Syringe) 3 ml IVFLUSH QSHIFT [facility] Last Admin: 08/26/24 08:23 Dose: 3 ml Sucralfate (Sucralfate 1 Gm Tablet) 1 gm PO QIDACHS [facility] Last Admin: 08/26/24 13:23 Dose: 1 gm Vancomycin HCl (Vancomycin Hcl 125 Mg Capsule) 125 mg PO Q48H [facility] Home Medications ?Medication ?Instructions ?Recorded ?Confirmed ?Type ammonium lactate 12 % lotion 1 appl topical DAILY PRN Dry Skin 06/02/24 08/22/24 History cholestyramine (with sugar) 4 gram 1 ea PO DAILY 06/02/24 08/22/24 History powder for susp in a packet diltiazem HCl 240 mg 240 mg PO DAILY 06/02/24 08/22/24 History capsule,extended release 24 hr pantoprazole 20 mg tablet,delayed 20 mg PO DAILY@0630 06/02/24 08/22/24 History release hydrocortisone 2.5 % topical cream 1 appl IN QID PRN Itching 08/22/24 08/22/24 History with perineal applicator lidocaine 4 % topical cream 1 appl topical DAILY PRN Itching 08/22/24 08/22/24 History vancomycin 125 mg capsule 125 mg PO MOWEFR 08/22/24 08/22/24 History Allergies Allergy/AdvReac Type Severity Reaction Status Date / Time No Known Allergies (NKA) Allergy Mild NOT Verified 08/22/24 08:52 APPLICABLE Physical Exam Vital signs: Vital Signs Temp 98 F 08/26/24 11:32 Pulse 65 08/26/24 11:32 Resp 18 08/26/24 11:32 BP 106/54 L 08/26/24 11:32 Pulse Ox 92 08/25/24 16:00 O2 Del Method Room Air 08/25/24 16:00 Intake & Output 08/25/24 08/26/24 08/26/24 18:59 06:59 18:59 Intake Total 360 / 710 350 / 710 440 / 440 Balance 360 / 710 350 / 710 440 / 440 Intake: Intake, Oral Amount 360 / 600 240 / 600 440 / 440 Intake, IV Amount 110 / 110 vancomycin HCL 500 mg In 0.9 % 110 / 110 Sodium Chloride 100 ml @ 110 mls/hr IV ONCE ONE Rx#: [id number] Other: Breakfast % Eaten 50% Lunch % Eaten 0% Number of Incontinent Voids 5 Number of Bowel Movements 3 2 5 Urine inc. Urine Color Yellow Last Bowel Movement 08/25/24 08/26/24 Stool Incontinent Incontinent Incontinent Stool Amount Large Moderate Large Stool Color Brown Brown Brown Stool Consistency Liquid Liquid Watery Weight 55.8 kg Weight 55.8 kg - Constitutional Present: no acute distress, average body habitus - Routine HEENT Exam Head: Present: normal inspection Eye: Present: EOMI, PERRL - Routine Neck Exam Present: supple. Absent: lymphadenopathy - Routine Respiratory Exam Absent: accessory muscle use - Routine Cardiovascular Exam Cardiovascular: Present: RRR, S1, S2 - Routine Abdominal Exam Present: soft. Absent: mass Hem/Onc Consult Result - Labs CBC & Chem 7: 08/26/24 08:18 08/25/24 08:26 Labs: Short CBC 08/26/24 Range/Units 08:18 WBC 10.4 (4.8-10.8) X10*3/uL Hgb 9.4 L (14.0-18.0) g/dl Hct 29.9 L (42.0-52.0) % Plt Count 21 L D (160-400) X10*3/uL Assessment and Plan Patient Active problem list reviewed?: Yes (1) Thrombocytopenia Status: Chronic Assessment and plan: 1. This is a 78-year-old male with multiple medical problems including recurrent DVT, rectal cancer status post chemo RT followed by LAR, chronic atrial fibrillation, end-stage renal disease on hemodialysis who is currently admitted for recurrent diarrhea secondary to C diff infection as well as NSTEMI. On his last admission he was diagnosed with left lower extremity DVT. He had IVC filter placed as he could not be anticoagulated. He was ruled out for heparin induced thrombocytopenia, DIC and TTP. 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 At the time of discharge his platelets were 53 K. Is currently admitted for recurrent anemia secondary to GI bleed. He has also thrombocytopenia. He received blood and platelet transfusion. He remains C diff positive. Submit coagulation tests to rule out DIC. Agree with platelet transfusion to keep his numbers about 30. Patient was supposed to follow up with Hematology upon discharge but he did not do so. He does not want to undergo any further evaluation such as bone marrow biopsy to evaluate thrombocytopenia. Recommend supportive care. Thank you for the consultation. - Time Spent With Patient Time Spent with Patient (in minutes): 20
[2024-08-27 03:59] VITALS: BP 172/94; PULSE 64; RESP 16; TEMP 36.7; O2SAT 95
[2024-08-27 07:25] VITALS: BP 120/58; PULSE 72; RESP 16; TEMP 36.5
[2024-08-27] MEDS: Cholestyramine (With Sugar) 4 GM POWD.PACK PO (08:04)
[2024-08-27] MEDS: 0.9 % Sodium Chloride Flush 3 ML SYRINGE IVFLUSH ×3 (08:04→20:12)
[2024-08-27 11:33] VITALS: BP 130/60; PULSE 67; RESP 18; TEMP 37.1
[2024-08-27 11:44] LABS: Hematocrit 29.6 % (42.0-52.0); Hemoglobin 9.1 g/dl (14.0-18.0); Mean Corpuscular HGB Conc 30.7 g/dl (31.0-36.0); Mean Corpuscular Hemoglobin 29.4 pg (27.0-33.0); Mean Corpuscular Volume 95.5 fL (80.0-98.0); NRBC Abs Auto 0.000 X10*3/uL (0.0-0.012); NRBC Pct Auto 0.0 /100WBC (0.0-0.2); Red Blood Count 3.10 X10*6/uL (4.60-5.80); White Blood Count 10.9 X10*3/uL (4.8-10.8)
[2024-08-27 11:45] LABS: Platelet Count 31 X10*3/uL (160-400)
--- NOTE | 2024-08-27 11:55 | MHC.CLN ---
F/U PT IS MODERATELY MALNOURISHED SEE FULL CLINICAL NUTRITION ASSESSMENT DATED 08/25/24 PO INTAKE 50% DIET RX: REGULAR-APPROPRIATE RECEIVING ENSURE BID TO PROVIDE 700KCALS, 40G PROTEIN MONITOR PO INTAKE AND ENCOURAGE SUPPLEMENTS
--- NOTE | 2024-08-27 11:56 | P.PNIM_ITS ---
Subjective Subjective Date of Service: 08/27/24 Interval History: Seen and examined Interval history:He is reporting less diarrhea, Plat is 31 today after 1 unit, up from 17 Review of Systems Review of Systems: Yes all other systems are reviewed and are negative Physical Exam 2 Vital Signs: Vital Signs: Last Vital Signs Temp 98.8 F 08/27/24 11:33 Pulse 67 08/27/24 11:33 Resp 18 08/27/24 11:33 BP 130/60 08/27/24 11:33 Pulse Ox 95 08/27/24 03:59 O2 Del Method Room Air 08/27/24 03:59 BMI result Body Mass Index 17.6 Constitutional - Awake and Alert, No apparent distress Eyes - PERRLA, EOMI Cardiovascular - S1S2, RRR, No edema Respiratory - Normal lung expansion, Normal respiratory effort, No respiratory distress, CTA bilaterally Gastrointestinal - NT / ND; +BS; No rebound or guarding Extremities - no calf tenderness bilaterally, no swelling Skin - Warm/Dry Neurological - Alert & oriented x3 Psychological - Appropriate affect Const: Other: Constitutional - Awake and Alert, No apparent distress, Alert & oriented x3 Eyes - PERRLA, EOMI Cardiovascular - S1S2, RRR, No edema Respiratory - Normal lung expansion, Normal respiratory effort, No respiratory distress, CTA bilaterally Chest- Right upper chest dialysis catheter in place without any purulent drainage or erythema Gastrointestinal - NT / ND; hyperactive BS, No rebound or guarding - R nephrostomy site without any purulent drainage or significant erythema. Extremities - no calf tenderness bilaterally, or palpable cords. +swelling/3+ edema LLE Musculoskeletal - Normal inspection, normal ROM Skin - Warm/Dry Neurological - No focal deficit Objective Data Active Medications Acetaminophen (Acetaminophen 325 Mg Tablet) 650 mg PO Q6H PRN PRN Reason: Pain, Mild 1-3,fever,headache Last Admin: 08/26/24 15:32 Dose: 650 mg Documented By: WESLY Amiodarone HCl (Amiodarone Hcl 200 Mg Tablet) 200 mg PO DAILY [facility] Last Admin: 08/27/24 08:04 Dose: 200 mg Documented By: LIYAH Calcium Carbonate (Calcium Carbonate 750 Mg Tab.Chew) 750 mg PO Q4H PRN PRN Reason: Heartburn Cholestyramine Resin (Cholestyramine (With Sugar) 4 Gm Powd.Pack) 4 gm PO DAILY [facility] Last Admin: 08/27/24 08:04 Dose: 4 gm Documented By: LIYAH Hydrocortisone (Hydrocortisone 2.5 % Rectal Cr 30 Gm Tube) 1 appl SD QID PRN PRN Reason: Itching Lactic Acid (Ammonium Lactate 12 % Lotion 226 Gm Bottle) 1 appl TOPICAL DAILY PRN; Protocol PRN Reason: Dry Skin Magnesium Hydroxide (Milk Of Magnesia 30 Ml Oral.Susp) 30 ml PO DAILY PRN PRN Reason: Constipation Melatonin (Melatonin 3 Mg Tablet) 6 mg PO BEDTIME PRN PRN Reason: Insomnia Midodrine (Midodrine Hcl 5 Mg Tablet) 5 mg PO TID [facility] Last Admin: 08/27/24 08:04 Dose: 5 mg Documented By: LIYAH Omeprazole (Omeprazole 20 Mg Capsule.) 20 mg PO BID@0630,1630 [facility] Last Admin: 08/27/24 06:39 Dose: 20 mg Documented By: ARASH Sodium Chloride (0.9 % Sodium Chloride Flush 3 Ml Syringe) 3 ml IVFLUSH QSHIFT [facility] Last Admin: 08/27/24 08:04 Dose: 3 ml Documented By: LIYAH Sucralfate (Sucralfate 1 Gm Tablet) 1 gm PO QIDACHS [facility] Last Admin: 08/27/24 10:51 Dose: 1 gm Documented By: LIYAH Vancomycin HCl (Vancomycin Hcl 125 Mg Capsule) 125 mg PO Q48H [facility] Last Admin: 08/26/24 15:33 Dose: 125 mg Documented By: WESLY Labs 08/27/24 11:27 08/25/24 08:26 Labs: Laboratory Results - last 24 hr 08/26/24 08/26/24 08/27/24 12:50 16:00 11:27 MCV 95.5 MCH 29.4 MCHC 30.7 L RDW 17.5 H Plt Count 31 L D MPV 11.7 Absolute Nucleated RBC 0.000 Nucleated RBC % (auto) 0.0 PT 13.7 H INR 1.2 H APTT 41.2 H Fibrinogen 121 L Blood Type A Positive Antibody Screen NEGATIVE Microbiology Microbiology Results: Microbiology 08/24/24 08:44 Blood Culture - Preliminary Blood - Venous No growth after 48 hours. 08/24/24 08:44 Blood Culture - Preliminary Blood - Venous No growth after 48 hours. Assessment and Plan (1) Melena: Status: Acute (2) Thrombocytopenia: Status: Chronic (3) NSTEMI (non-ST elevated myocardial infarction): Status: Acute Plan 78-year-old male with history of BPH, recurrent C diff colitis, hyperlipidemia, hypertension, history of alcohol use disorder, mild cognitive impairments, sick sinus syndrome s/p pacemaker placement, ESRD on HD MWF, chronic thrombocytopenia, history of pancolitis, history of extensive LLE DVT in may 2024 here with chest pain, Melana/gib and acute blood loss anemia. Chest pain, ruled NSTEMI, with intermediate trop of 143 down to 134. He is a very complex patient with multiple comorbidities elevated trops likely d/t anemia and possible from CKD Cardiology performed echo at bedside showing low-normal ejection fraction without any significant new regional wall motion abnormalities. Right ventricular function improved Cardiology recommending transfusion as anticoagulation can not be performed secondary to GI bleed and thrombocytopenia Conservative management otherwise HypOtension, probably multi factorial elevated WBC is chronic and not due to sepsis empiric Vanco IV stopped Hold BP meds Has received IVF and albumin Continue Midodrine 5 tid Acute on chronic GIB bleeding and acute on chronic blood loss anemia He's was transfused RBC 08/22, H/H has dropped some but ok, hgb 9.1 IV PPI to PO GI consulation: conservative management Monitor H/H and obviously avoid antiplat and anticoagulants Known LLE DVT, swollen leg, has IVC in place, not candidate for antiocoagulation d/t recurrent gi bleedinga and low platlets ESRD on HD MWF, He belongs to [facility] Nephro consult, he missed dialysis yesterday. Underwent today Recurrent Cdif, presently says he has little diarrhea GI Panel and C Diff pcr ordered Continue Dificid Acute on chronic thrombocytopenia, this has been chronic issue, etiology is not certain and likely multifactorial, Monitor for now and if dropping consider transfusion, in past was on eliquis but no longer on it..Hematology saw him likely early dic Paroxysmal atrial fibrillation-rate controlled Has been on cardizemm amio and metoprolol in the past hold metoprolol and cardizem in light of low BPs Hypertension, BP on low side, hold meds Sick sinus syndrome Pacemaker in place DVT prophylaxis: compression device Code full code Ongoing inpt stay due to GI bleed requiring transfusion and NSTEMI which will require transfusions as needed, close cardiac monitoring, and close monitoring of blood counts as well as expert consultation will monitor 1 more day and if plat stable, dc in the morning Quality Stroke Does the patient have a stroke diagnosis?: No VTE Prior VTE?: Yes VTE Risk Level:: Medical - moderate - high VTE Device Contraindication: Procedure Contraindicated VTE Drug Contraindication: Treatment Not Tolerated
--- NOTE | 2024-08-27 15:13 | MHC.CM.PN ---
Per rounds, pt. to stay for care for GI bleed. Provider anticipates DC to home 08/28/24, CM to follow.
[2024-08-27 15:49] VITALS: BP 119/66; PULSE 93; RESP 16; TEMP 36.4
[2024-08-27 20:00] VITALS: BP 129/68; PULSE 93; RESP 18; TEMP 36.1
[2024-08-28] VITALS (8 sets, daily range): BP systolic 91–144; BP diastolic 53–73; PULSE 69–82; RESP 16–18; TEMP 36.4–36.8; O2SAT 92–98
--- NOTE | 2024-08-28 03:54 | P.PNNP_ITS ---
Subjective Subjective Date of Service: 08/27/24 Interval history: Seen and examined Events noted Physical Exam 2 Vital Signs: Vital Signs: Last Vital Signs Temp 98 F 08/28/24 00:00 Pulse 79 08/28/24 00:00 Resp 18 08/28/24 00:00 BP 140/64 H 08/28/24 00:00 Pulse Ox 95 08/27/24 03:59 O2 Del Method Room Air 08/27/24 03:59 BMI result Body Mass Index 17.6 Const: Other: Constitutional - Awake and Alert, No apparent distress, Alert & oriented x3 Eyes - PERRLA, EOMI Cardiovascular - S1S2, RRR, No edema Respiratory - Normal lung expansion, Normal respiratory effort, No respiratory distress, CTA bilaterally Chest- Right upper chest dialysis catheter in place without any purulent drainage or erythema Gastrointestinal - NT / ND; hyperactive BS, No rebound or guarding - R nephrostomy site without any purulent drainage or significant erythema. Extremities - no calf tenderness bilaterally, or palpable cords. +swelling/3+ edema LLE Musculoskeletal - Normal inspection, normal ROM Skin - Warm/Dry Neurological - No focal deficit Objective Data Labs 08/27/24 11:27 08/25/24 08:26 Labs: Laboratory Results - last 24 hr 08/27/24 11:27 WBC 10.9 H RBC 3.10 L Hgb 9.1 L Hct 29.6 L MCV 95.5 MCH 29.4 MCHC 30.7 L RDW 17.5 H Plt Count 31 L D MPV 11.7 Absolute Nucleated RBC 0.000 Nucleated RBC % (auto) 0.0 Microbiology Microbiology Results: Microbiology 08/24/24 08:44 Blood - Venous Blood Culture - Preliminary No growth after 48 hours. 08/24/24 08:44 Blood - Venous Blood Culture - Preliminary No growth after 48 hours. Procedures Date of Service Date of Service: 08/28/24 Assessment & Plan Assessment and plan (1) Melena: Status: Acute (2) Thrombocytopenia: Status: Chronic (3) NSTEMI (non-ST elevated myocardial infarction): Status: Acute Plan 78-year-old male with history of BPH, recurrent C diff colitis, hyperlipidemia, hypertension, history of alcohol use disorder, mild cognitive impairments, sick sinus syndrome s/p pacemaker placement, ESRD on HD MWF, chronic thrombocytopenia, history of pancolitis, history of extensive LLE DVT in may 2024 here with chest pain, Melana/gib and acute blood loss anemia. ESRD: cont HD 3x/wk Anemia: GI blood loss s/p xfusion, nephrogenic anemia playing a role as well Low PLTs : chronic issue, multifact; consider Heme consult Low BPs: on midodrine, incr as needed REC: cont HD MWF, will follow w team, may need Tx of low PLTs w xfusion defer to Med and Heme Time Spent With Patient Time: Total time managing care of this patient today ____ minutes. Progress Note: Quality Stroke Does the patient have a stroke diagnosis?: No
[2024-08-28 07:15] LABS: Hematocrit 30.0 % (42.0-52.0); Hemoglobin 9.2 g/dl (14.0-18.0); Mean Corpuscular HGB Conc 30.7 g/dl (31.0-36.0); Mean Corpuscular Hemoglobin 29.2 pg (27.0-33.0); Mean Corpuscular Volume 95.2 fL (80.0-98.0); NRBC Abs Auto 0.000 X10*3/uL (0.0-0.012); NRBC Pct Auto 0.0 /100WBC (0.0-0.2); Red Blood Count 3.15 X10*6/uL (4.60-5.80); White Blood Count 11.6 X10*3/uL (4.8-10.8)
[2024-08-28 07:16] LABS: Platelet Count 23 X10*3/uL (160-400)
[2024-08-28] MEDS: 0.9 % Sodium Chloride Flush 3 ML SYRINGE IVFLUSH ×3 (09:49→19:52)
[2024-08-28] MEDS: Cholestyramine (With Sugar) 4 GM POWD.PACK PO (09:50)
--- NOTE | 2024-08-28 12:03 | P.PNIM_ITS ---
Subjective Subjective Date of Service: 08/28/24 Interval History: Seen and examined Interval history:less, diarrhea, plat is low again at 23, he is angry about not been discharged Review of Systems Review of Systems: Yes all other systems are reviewed and are negative Physical Exam 2 Vital Signs: Vital Signs: Last Vital Signs Temp 97.7 F 08/28/24 11:14 Pulse 74 08/28/24 11:14 Resp 17 08/28/24 11:14 BP 144/66 H 08/28/24 11:14 Pulse Ox 97 08/28/24 11:14 O2 Del Method Room Air 08/28/24 11:14 BMI result Body Mass Index 17.6 Constitutional - Awake and Alert, No apparent distress Eyes - PERRLA, EOMI Cardiovascular - S1S2, RRR, No edema Respiratory - Normal lung expansion, Normal respiratory effort, No respiratory distress, CTA bilaterally Gastrointestinal - NT / ND; +BS; No rebound or guarding Extremities - no calf tenderness bilaterally, no swelling Skin - Warm/Dry Neurological - Alert & oriented x3 Psychological - Appropriate affect Const: Other: Constitutional - Awake and Alert, No apparent distress, Alert & oriented x3 Eyes - PERRLA, EOMI Cardiovascular - S1S2, RRR, No edema Respiratory - Normal lung expansion, Normal respiratory effort, No respiratory distress, CTA bilaterally Chest- Right upper chest dialysis catheter in place without any purulent drainage or erythema Gastrointestinal - NT / ND; hyperactive BS, No rebound or guarding - R nephrostomy site without any purulent drainage or significant erythema. Extremities - no calf tenderness bilaterally, or palpable cords. +swelling/3+ edema LLE Musculoskeletal - Normal inspection, normal ROM Skin - Warm/Dry Neurological - No focal deficit Objective Data Active Medications Acetaminophen (Acetaminophen 325 Mg Tablet) 650 mg PO Q6H PRN PRN Reason: Pain, Mild 1-3,fever,headache Last Admin: 08/26/24 15:32 Dose: 650 mg Documented By: WESLY Amiodarone HCl (Amiodarone Hcl 200 Mg Tablet) 200 mg PO DAILY NILE Last Admin: 08/28/24 09:49 Dose: 200 mg Documented By: NELA Calcium Carbonate (Calcium Carbonate 750 Mg Tab.Chew) 750 mg PO Q4H PRN PRN Reason: Heartburn Cholestyramine Resin (Cholestyramine (With Sugar) 4 Gm Powd.Pack) 4 gm PO DAILY [facility] Last Admin: 08/28/24 09:50 Dose: 4 gm Documented By: NELA Hydrocortisone (Hydrocortisone 2.5 % Rectal Cr 30 Gm Tube) 1 appl NE QID PRN PRN Reason: Itching Lactic Acid (Ammonium Lactate 12 % Lotion 226 Gm Bottle) 1 appl TOPICAL DAILY PRN; Protocol PRN Reason: Dry Skin Magnesium Hydroxide (Milk Of Magnesia 30 Ml Oral.Susp) 30 ml PO DAILY PRN PRN Reason: Constipation Melatonin (Melatonin 3 Mg Tablet) 6 mg PO BEDTIME PRN PRN Reason: Insomnia Midodrine (Midodrine Hcl 5 Mg Tablet) 5 mg PO TID [facility] Last Admin: 08/28/24 09:50 Dose: Not Given Documented By: NELA Non-Admin Reason: pt. refused d/t good BP Omeprazole (Omeprazole 20 Mg Capsule.) 20 mg PO BID@0630,1630 [facility] Last Admin: 08/28/24 05:53 Dose: 20 mg Documented By: ARASH Sodium Chloride (0.9 % Sodium Chloride Flush 3 Ml Syringe) 3 ml IVFLUSH QSHIFT [facility] Last Admin: 08/28/24 09:49 Dose: 3 ml Documented By: NELA Sucralfate (Sucralfate 1 Gm Tablet) 1 gm PO QIDACHS [facility] Last Admin: 08/28/24 09:49 Dose: 1 gm Documented By: NELA Vancomycin HCl (Vancomycin Hcl 125 Mg Capsule) 125 mg PO Q48H [facility] Last Admin: 08/26/24 15:33 Dose: 125 mg Documented By: WESLY Labs 08/28/24 06:39 08/25/24 08:26 Labs: Laboratory Results - last 24 hr 08/28/24 06:39 MCV 95.2 MCH 29.2 MCHC 30.7 L RDW 17.2 H Plt Count 23 L D MPV TNP Absolute Nucleated RBC 0.000 Nucleated RBC % (auto) 0.0 Microbiology Microbiology Results: Microbiology 08/24/24 08:44 Blood Culture - Preliminary Blood - Venous No growth after 48 hours. 08/24/24 08:44 Blood Culture - Preliminary Blood - Venous No growth after 48 hours. Assessment and Plan (1) Melena: Status: Acute (2) Thrombocytopenia: Status: Chronic (3) NSTEMI (non-ST elevated myocardial infarction): Status: Acute Plan 78-year-old male with history of BPH, recurrent C diff colitis, hyperlipidemia, hypertension, history of alcohol use disorder, mild cognitive impairments, sick sinus syndrome s/p pacemaker placement, ESRD on HD MWF, chronic thrombocytopenia, history of pancolitis, history of extensive LLE DVT in may 2024 here with chest pain, Melana/gib and acute blood loss anemia. Chest pain, ruled NSTEMI, with intermediate trop of 143 down to 134. He is a very complex patient with multiple comorbidities elevated trops likely d/t anemia and possible from CKD Cardiology performed echo at bedside showing low-normal ejection fraction without any significant new regional wall motion abnormalities. Right ventricular function improved Cardiology recommending transfusion as anticoagulation can not be performed secondary to GI bleed and thrombocytopenia Conservative management otherwise HypOtension, probably multi factorial, resolved elevated WBC is chronic and not due to sepsis empiric Vanco IV stopped Hold BP meds Has received IVF and albumin Continue Midodrine 5 tid Acute on chronic GIB bleeding and acute on chronic blood loss anemia He's was transfused RBC 08/22, H/H has dropped some but ok, hgb 9.1 IV PPI to PO GI consulation: conservative management Monitor H/H and obviously avoid antiplat and anticoagulants Known LLE DVT, swollen leg, has IVC in place, not candidate for antiocoagulation d/t recurrent gi bleedinga and low platlets ESRD on HD MWF, He belongs to [employer] Nephro consult, he missed dialysis yesterday. Underwent today Recurrent Cdif, presently says he has little diarrhea GI Panel and C Diff pcr ordered Continue Dificid Acute on chronic thrombocytopenia, this has been chronic issue, etiology is not certain and likely multifactorial, Monitor for now and if dropping consider transfusion, in past was on eliquis but no longer on it..Hematology saw him likely early dic, transfuse 1 unit of plat today Paroxysmal atrial fibrillation-rate controlled Has been on cardizemm amio and metoprolol in the past hold metoprolol and cardizem in light of low BPs Hypertension, BP on low side, hold meds Sick sinus syndrome Pacemaker in place DVT prophylaxis: compression device Code full code Ongoing inpt stay due to GI bleed requiring transfusion and NSTEMI which will require transfusions as needed, close cardiac monitoring, and close monitoring of blood counts as well as expert consultation will monitor 1 more day and if plat stable, dc in the morning Quality Stroke Does the patient have a stroke diagnosis?: No VTE Prior VTE?: Yes VTE Risk Level:: Medical - moderate - high VTE Device Contraindication: Procedure Contraindicated VTE Drug Contraindication: Treatment Not Tolerated
--- NOTE | 2024-08-28 14:27 | P.PNNP_ITS ---
Subjective Subjective Date of Service: 08/28/24 Interval history: Seen and examined Interval history:less, diarrhea, plat is low again at 23, Physical Exam 2 Vital Signs: Vital Signs: Last Vital Signs Temp 97.7 F 08/28/24 11:14 Pulse 74 08/28/24 11:14 Resp 17 08/28/24 11:14 BP 144/66 H 08/28/24 11:14 Pulse Ox 97 08/28/24 11:14 O2 Del Method Room Air 08/28/24 11:14 BMI result Body Mass Index 17.6 cvs: s1s2 Rs; cta Abd' soft Objective Data Labs 08/28/24 06:39 08/25/24 08:26 Labs: Laboratory Results - last 24 hr 08/28/24 06:39 WBC 11.6 H RBC 3.15 L Hgb 9.2 L Hct 30.0 L MCV 95.2 MCH 29.2 MCHC 30.7 L RDW 17.2 H Plt Count 23 L D MPV TNP Absolute Nucleated RBC 0.000 Nucleated RBC % (auto) 0.0 Microbiology Microbiology Results: Microbiology 08/24/24 08:44 Blood - Venous Blood Culture - Preliminary No growth after 48 hours. 08/24/24 08:44 Blood - Venous Blood Culture - Preliminary No growth after 48 hours. Procedures Date of Service Date of Service: 08/28/24 Assessment & Plan Assessment and plan (1) Thrombocytopenia: Status: Chronic (2) End stage renal disease: Status: Acute Plan 78-year-old male with history of BPH, recurrent C diff colitis, hyperlipidemia, hypertension, history of alcohol use disorder, mild cognitive impairments, sick sinus syndrome s/p pacemaker placement, ESRD on HD MWF, chronic thrombocytopenia, history of pancolitis, history of extensive LLE DVT in may 2024 here with chest pain, Melana/gib and acute blood loss anemia. ESRD: cont HD 3x/wk Anemia: GI blood loss s/p xfusion, nephrogenic anemia playing a role as well Low PLTs : chronic issue, multifact; Heme consult Low BPs: on midodrine, incr as needed REC: cont HD MWF, will follow w team, may need Tx of low PLTs w xfusion defer to Med and Heme Time Spent With Patient Time: Total time managing care of this patient today ____ minutes. Progress Note: Quality Stroke Does the patient have a stroke diagnosis?: No
[2024-08-29 00:12] VITALS: BP 132/92; PULSE 66; RESP 18; TEMP 36.8
[2024-08-29 00:35] VITALS: BP 143/65; PULSE 67; RESP 20; TEMP 36.7
[2024-08-29 03:35] VITALS: BP 133/61; PULSE 71; RESP 16; TEMP 36.3
[2024-08-29 03:46] VITALS: BP 133/61; PULSE 71; RESP 16; TEMP 36.3; O2SAT 92
[2024-08-29 07:30] VITALS: BP 131/61; PULSE 73; RESP 17; TEMP 36.6; O2SAT 95
[2024-08-29 07:46] LABS: Hematocrit 30.1 % (42.0-52.0); Hemoglobin 9.1 g/dl (14.0-18.0); Mean Corpuscular HGB Conc 30.2 g/dl (31.0-36.0); Mean Corpuscular Hemoglobin 29.1 pg (27.0-33.0); Mean Corpuscular Volume 96.2 fL (80.0-98.0); NRBC Abs Auto 0.000 X10*3/uL (0.0-0.012); NRBC Pct Auto 0.0 /100WBC (0.0-0.2); Red Blood Count 3.13 X10*6/uL (4.60-5.80); White Blood Count 11.2 X10*3/uL (4.8-10.8)
[2024-08-29 07:50] LABS: Platelet Count 40 X10*3/uL (160-400)
--- NOTE | 2024-08-29 09:14 | P.PNHO-ONC_ITS ---
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 Patient had [place] [facility] 04/18/2024 following which he was in a fci for 3 weeks and just got home a few days back. He says he came back to the hospital because of recurrent diarrhea as well as pain at the site of right nephrostomy tube. He says he is unable to sleep at night because of this. He had right nephrostomy tube placed in March 2024 because of disruption of distal right ureter which may have occurred during reversal of colostomy performed at [facility] as per urology. During the prolonged hospitalization in March and April 2024 patient had developed severe thrombocytopenia with platelet counts below 20 K. he also developed GI bleeding requiring 3 units PRBC transfusion. EGD showed gastritis, duodenitis and candidal esophagitis that was treated with Diflucan. 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 His Eliquis was stopped. Thrombocytopenia was felt to be multifactorial, related to sepsis with Klebsiella line infection, use of antibiotics, as well as previous alcohol use, splenomegaly. At the time of discharge his platelet counts had come up to about 85 K. During that same admission he was noted to have obstruction of the right distal ureter and right PCN was placed on 04/08/2024. He noticed swelling in his left leg since 05/31/2024. He was diagnosed with extensive DVT in the left leg extending into popliteal, femoral, proximal femoral veins. Because of severe thrombocytopenia he could not be anticoagulated. He was not taking Eliquis since he left the hospital on April 18. He received platelet transfusion and underwent IVC filter placement on 06/04/2024. Patient was admitted on 08/22/2024 for chest pain, who was diagnosed with NSTEMI. He was also noticed to have drop in hemoglobin which was felt to be GI bleeding. He was started on IV PPI and given blood and platelet transfusion. He continues to have some diarrhea and remains positive for C diff. [facility] Medical History: Medical History (Last Updated 08/28/24 @ 23:23 by Casey Maier MD) Acute renal failure Aftercare following left shoulder joint replacement surgery Atrial fibrillation Borderline hyperlipidemia BPH (benign prostatic hyperplasia) C. difficile colitis Cancer of kidney End stage renal disease ESRD (end stage renal disease) on dialysis EtOH dependence High cholesterol HTN (hypertension) Hypertension Ileus Inhibited sex excitement Mild cognitive impairment OA (osteoarthritis) Obesity Pacemaker Postoperative hematoma involving digestive system following digestive system procedure Recto-vesical fistula Sick sinus syndrome Sinus bradycardia UTI (urinary tract infection) Family History: Family History (Last Reviewed 08/26/24 @ 13:42 by Marily German MD) Mother Heart problem Family history: reviewed and not pertinent Surgical History: Surgical History (Last Reviewed 08/26/24 @ 13:42 by Marily German MD) Atrial fibrillation with rapid ventricular response Encounter for interrogation of cardiac pacemaker Malignant neoplasm of rectum Rectal carcinoma Rectal mass Social History: Social History (Last Reviewed 08/26/24 @ 13:42 by Marily German MD) Living Situation History: Household Members: Spouse Housing: House Do you presently have visiting nurse or other home services: Yes Alcohol History: Unable to assess alcohol history related to: Unable to respond Tobacco History: Patient Tobacco Use Status: Former Tobacco user Tobacco use type: Cigarette e-Cigarette/Vaping Use: Never Used Second Hand Smoke Exposure: No Advance Directives: Advance Directives Date on File: 11/29/22 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 Home Medications and Allergies Current Medications: Current Medications Acetaminophen (Acetaminophen 325 Mg Tablet) 650 mg PO Q6H PRN PRN Reason: Pain, Mild 1-3,fever,headache Last Admin: 08/26/24 15:32 Dose: 650 mg Amiodarone HCl (Amiodarone Hcl 200 Mg Tablet) 200 mg PO DAILY [facility]S [facility]CLUDE 234 BEDS AT THE [facility] Last Admin: 08/28/24 09:49 Dose: 200 mg Calcium Carbonate (Calcium Carbonate 750 Mg Tab.Chew) 750 mg PO Q4H PRN PRN Reason: Heartburn Cholestyramine Resin (Cholestyramine (With Sugar) 4 Gm Powd.Pack) 4 gm PO DAILY NILE Last Admin: 08/28/24 09:50 Dose: 4 gm Dexamethasone (Dexamethasone 4 Mg Tablet) 40 mg PO DAILY COUNTS INCLUDE 234 BEDS AT THE [facility] Hydrocortisone (Hydrocortisone 2.5 % Rectal Cr 30 Gm Tube) [address] QID PRN PRN Reason: Itching Lactic Acid (Ammonium Lactate 12 % Lotion 226 Gm Bottle) 1 appl TOPICAL DAILY PRN; Protocol PRN Reason: Dry Skin Magnesium Hydroxide (Milk Of Magnesia 30 Ml Oral.Susp) 30 ml PO DAILY PRN PRN Reason: Constipation Melatonin (Melatonin 3 Mg Tablet) 6 mg PO BEDTIME PRN PRN Reason: Insomnia Midodrine (Midodrine Hcl 5 Mg Tablet) 5 mg PO TID COUNTS INCLUDE 234 BEDS AT THE [facility] Last Admin: 08/28/24 19:51 Dose: 5 mg Omeprazole (Omeprazole 20 Mg Capsule.Dr) 20 mg PO BID@0630,1630 COUNTS INCLUDE 234 BEDS AT THE [facility] Last Admin: 08/29/24 05:31 Dose: 20 mg Sodium Chloride (0.9 % Sodium Chloride Flush 3 Ml Syringe) 3 ml IVFLUSH QSHIFT COUNTS INCLUDE 234 BEDS AT THE [facility] Last Admin: 08/28/24 19:52 Dose: 3 ml Sucralfate (Sucralfate 1 Gm Tablet) 1 gm PO QIDACHS COUNTS INCLUDE 234 BEDS AT THE [facility] Last Admin: 08/28/24 19:52 Dose: 1 gm Vancomycin HCl (Vancomycin Hcl 125 Mg Capsule) 125 mg PO Q48H COUNTS INCLUDE 234 BEDS AT THE [facility] Last Admin: 08/28/24 12:58 Dose: Not Given Home Medications ?Medication ?Instructions ?Recorded ?Confirmed ?Type ammonium lactate 12 % lotion 1 appl topical DAILY PRN Dry Skin 08/22/24 History cholestyramine (with sugar) 4 gram 1 ea PO DAILY 06/02/24 08/22/24 History powder for susp in a packet pantoprazole 20 mg tablet,delayed 20 mg PO DAILY@0630 06/02/24 08/22/24 Hi story release hydrocortisone 2.5 % topical cream [address] QID PRN Itching 08/22/2408/22 History with perineal applicator lidocaine 4 % topical cream 1 appl topical DAILY PRN Itching 5 08/22/24 History vancomycin 125 mg capsule 125 mg PO MOWEFR 08/22/24 08/22/24 Histo ry Allergies Allergy/AdvReac Type Severity Reaction Status Date / Time No Known Allergies (NKA) Allergy Mild NOT Verified 08/22/24 08:52 APPLICABLE Exam Vital signs: Vital Signs Temp 97.9 F 08/29/24 07:30 Pulse 73 08/29/24 07:30 Resp 17 08/29/24 07:30 BP 131/61 08/29/24 07:30 Pulse Ox 95 08/29/24 07:30 O2 Del Method Room Air 08/29/24 07:30 Intake & Output 08/28/24 08/29/24 08/29/24 18:59 06:59 18:59 Intake Total 551 / 551 Output Total 0 / 0 Balance 0 / 551 551 / 551 Urine Output (Average ml/kg/hr) 0.00 0.00 0.00 Intake: Intake, Oral Amount 300 / 300 Intake (Blood Product) Amount 251 / 251 Plt Aph Pas Pathreduced([id number]) 251 / 251 Unit [id number] Output: Output, Urine Amount 0 / 0 Other: Breakfast % Eaten 100% Lunch % Eaten 75% Dinner % Eaten 50% Eating (Feeding) Ability Independent Number of Bowel Movements 4 5 3 Last Bowel Movement 08/28/24 08/28/24 Stool Incontinent Incontinent Incontinent Stool Amount Moderate Moderate Moderate Stool Color Yellow Blood Tinged Brown Stool Consistency Watery Liquid Liquid Weight 55.8 kg BMI result Body Mass Index 17.6 - Constitutional Present: no acute distress, average body habitus - Routine HEENT Exam Head: Present: normal inspection Eye: Present: PERRL - Routine Neck Exam Absent: lymphadenopathy - Routine Respiratory Exam Absent: accessory muscle use - Routine Cardiovascular Exam Cardiovascular: Present: RRR, S1, S2 - Routine Abdominal Exam Present: soft. Absent: mass Data - Labs CBC & Chem 7: 08/29/24 07:31 08/25/24 08:26 Labs: Laboratory Last Values WBC 11.2 X10*3/uL (4.8-10.8) H 08/29/24 07:31 RBC 3.13 X10*6/uL (4.60-5.80) L 08/29/24 07:31 Hgb 9.1 g/dl (14.0-18.0) L 08/29/24 07:31 Hct 30.1 % (42.0-52.0) L 08/29/24 07:31 MCV 96.2 fL (80.0-98.0) 08/29/24 07:31 MCH 29.1 pg (27.0-33.0) 08/29/24 07:31 MCHC 30.2 g/dl (31.0-36.0) L 08/29/24 07:31 RDW 17.3 % (11.0-16.0) H 08/29/24 07:31 Plt Count 40 X10*3/uL (160-400) L D 08/29/24 07:31 MPV 10.9 fL (9.4-12.4) 08/29/24 07:31 Immature Gran % (Auto) 1.6 % (0.0-0.4) H 08/24/24 04:49 Neut % (Auto) 86.9 % (45-73) H 08/24/24 04:49 Lymph % (Auto) 3.5 % (20-40) L 08/24/24 04:49 Morton % (Auto) 7.7 % (2-11) 08/24/24 04:49 Eos % (Auto) 0.1 % (0-4) 08/24/24 04:49 Baso % (Auto) 0.2 % (0-2) 08/24/24 04:49 Lymph # (Auto) 0.7 X10*3/uL (1.2-4.9) L 08/24/24 04:49 Morton # (Auto) 1.5 X10*3/uL (0.1-1.2) H 08/24/24 04:49 Eos # (Auto) 0.0 X10*3/uL (0.0-0.4) 08/24/24 04:49 Baso # (Auto) 0.0 X10*3/uL (0.0-0.2) 08/24/24 04:49 Abs Immat Gran (auto) 0.31 X10*3/uL (0.00-0.03) H 08/24/24 04:49 Absolute Neuts (auto) 16.5 x10*3/uL (2.0-8.3) H 08/24/24 04:49 Absolute Nucleated RBC 0.000 X10*3/uL (0.0-0.012) 08/29/24 07:31 Nucleated RBC % (auto) 0.0 /100WBC (0.0-0.2) 08/29/24 07:31 Smear Tech's Comments VERIFIED 08/23/24 09:23 PT 13.7 SEC (10.9-12.4) H 08/26/24 12:50 INR 1.2 (0.9-1.1) H 08/26/24 12:50 APTT 41.2 SEC (26.0-36.8) H 08/26/24 12:50 Fibrinogen 121 MG/DL (259-690) L 08/26/24 12:50 Sodium 140 mmol/L (135-145) 08/25/24 08:26 Potassium 3.0 mmol/L (3.3-5.1) L D 08/25/24 08:26 Chloride 105 mmol/L (96-108) 08/25/24 08:26 Carbon Dioxide 28 mmol/L (22-29) 08/25/24 08:26 Anion Gap 10 (12-20) L 08/25/24 08:26 BUN 15 mg/dL (9-16) 08/25/24 08:26 Creatinine 2.47 mg/dL (0.5-1.4) H 08/25/24 08:26 Estim Creat Clear Calc 19.7 08/25/24 08:26 Estimated GFR 26 08/25/24 08:26 Random Glucose 77 mg/dL (60-115) 08/25/24 08:26 Lactic Acid 2.7 mmol/L (0.5-2.0) H* 08/24/24 02:16 Lactic Acid F/U @ 2Hr 2.1 mmol/L (0.5-2.0) H* 08/24/24 04:49 Lactic Acid F/U @ 4Hr 2.8 mmol/L (0.5-2.0) H* 08/24/24 06:58 Calcium 7.5 mg/dL (8.4-10.2) L 08/25/24 08:26 Magnesium 2.0 mg/dL (1.6-2.6) 08/22/24 09:17 Total Bilirubin 1.2 mg/dL (0.0-1.0) H 08/23/24 05:29 Direct Bilirubin 0.3 mg/dL (0.0-0.5) 08/22/24 09:17 AST 14 U/L (5-37) 08/23/24 05:29 ALT < 6 U/L (0-40) 08/23/24 05:29 Alkaline Phosphatase 89 U/L (39-117) 08/23/24 05:29 Troponin I High Sens 134.9 ng/L (<3.5-35.0) H* 08/22/24 12:04 B-Natriuretic Peptide 262 pg/mL (<100) H 08/22/24 09:17 Total Protein 4.3 g/dL (6.5-8.0) L 08/23/24 05:29 Albumin 1.9 g/dL (3.5-5.0) L 08/23/24 05:29 Stool Occult Blood POSITIVE (NEGATIVE) 08/22/24 14:36 Stl C. cayetanensis PCR Not Detected (Not Detect.) 08/23/24 18:00 Stool Rotavirus A PCR Not Detected (Not Detect.) 08/23/24 18:00 Stl Adenov F 40/41 PCR Not Detected (Not Detect.) 08/23/24 18:00 Stool Astrovirus (PCR) Not Detected (Not Detect.) 08/23/24 18:00 Stool Campylobacter PCR Not Detected (Not Detect.) 08/23/24 18:00 Stool Cryptosporidium PCR Not Detected (Not Detect.) 08/23/24 18:00 Stl Sh Tox Pr E STEC PCR Not Detected (Not Detect.) 08/23/24 18:00 Stool E coli O157 PCR Not applicable (Not Detect.) 08/23/24 18:00 Stl Enterotoxigenic E PCR Not Detected (Not Detect.) 08/23/24 18:00 Stool EPEC (PCR) Detected (Not Detect.) A 08/23/24 18:00 Stool EAEC (PCR) Not Detected (Not Detect.) 08/23/24 18:00 Stl E. histolytica PCR Not Detected (Not Detect.) 08/23/24 18:00 Stool Giardia Lamblia PCR Not Detected (Not Detect.) 08/23/24 18:00 Stl P. shigelloides PCR Not Detected (Not Detect.) 08/23/24 18:00 Stool Salmonella PCR Not Detected (Not Detect.) 08/23/24 18:00 Stool Sapovirus (PCR) Not Detected (Not Detect.) 08/23/24 18:00 Stl Shigella/EIEC PCR Not Detected (Not Detect.) 08/23/24 18:00 St Y.enterocolitica PCR Not Detected (Not Detect.) 08/23/24 18:00 Stool Vibrio (PCR) Not Detected (Not Detect.) 08/23/24 18:00 Stl Vibrio cholerae PCR Not Detected (Not Detect.) 08/23/24 18:00 Stl Norovirus GI/GII PCR Not Detected (Not Detect.) 08/23/24 18:00 Random Vancomycin 11.0 mcg/mL (15-20) L 08/25/24 18:28 C. difficile Tox B Gene POSITIVE (Negative) A* 08/23/24 18:00 C. difficile Toxin A&B Positive (Negative) A* 08/23/24 18:00 C. difficile Interpret SEE NOTE 08/23/24 18:00 Blood Type A Positive 08/26/24 16:00 Antibody Screen NEGATIVE 08/26/24 16:00 Crossmatch See Detail 08/22/24 16:11 - Imaging Radiologist's impression: ITS Impressions Chest X-Ray 08/22/24 07:56 IMPRESSION: 1. Stable dialysis catheter and right chest wall pacemaker. 2. COPD with no active pulmonary disease. Previously seen patchy airspace disease and left effusion has resolved. Electronically signed by: Lior Lewis MD 08/22/2024 09:14 AM EDT RP Chest CTA 08/22/24 14:36 IMPRESSION: 1. There is no evidence of pulmonary embolus. There is no evidence of acute aortic syndrome. 2. There is moderate centrilobular and paraseptal emphysema. There is a small layering left pleural effusion. Lungs are otherwise clear without consolidation or abnormal opacities. 3. There is a possible left renal mass measuring 1.5 x 1.3 cm, incompletely imaged. Recommend correlating with ultrasound. This was mentioned on the prior CT 06/13/2024. This was present 07/01/2022 CT abdomen/pelvis and currently appears slightly larger, raising suspicion of neoplasm. 4. There are numerous ancillary findings as discussed in the body of the report. Electronically signed by: Lior Lewis MD 08/22/2024 04:17 PM EDT RP Assessment and Plan Patient Active problem list reviewed?: Yes (1) Thrombocytopenia Status: Chronic Assessment and plan: 1. This is a 78-year-old male with multiple medical problems including recurrent DVT, rectal cancer status post chemo RT followed by LAR, chronic atrial fibrillation, end-stage renal disease on hemodialysis who is currently admitted for recurrent diarrhea secondary to C diff infection as well as NSTEMI. On his last admission he was diagnosed with left lower extremity DVT. He had IVC filter placed as he could not be anticoagulated. He was ruled out for heparin induced thrombocytopenia, DIC and TTP. 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 At the time of discharge his platelets were 53 K. Is currently admitted for recurrent anemia secondary to GI bleed. He has also thrombocytopenia. He received blood and platelet transfusion. He remains C diff positive. He has low-grade DIC. Agree with platelet transfusion to keep his numbers about 30. Patient was supposed to follow up with Hematology upon discharge but he did not do so. He does not want to undergo any further evaluation such as bone marrow biopsy to evaluate thrombocytopenia. Repeat trial of prednisone for possible autoimmune thrombocytopenia. - Time Spent With Patient Time Spent with Patient (in minutes): 15
[2024-08-29] MEDS: 0.9 % Sodium Chloride Flush 3 ML SYRINGE IVFLUSH (10:34)
--- NOTE | 2024-08-29 11:50 | P.DS_ITS ---
DS: Providers Provider Date of Service: 08/29/24 Date of admission: 08/22/24 16:52 Date of discharge: 08/29/24 Primary care physician: Joao Duncan MD Consults: 08/22/24 16:54 Consult to Gastroenterology Routine Consulting Provider: Markos Levine Reason for consultation: GIB, melana Has provider been notified: No 08/22/24 16:55 Consult to Nephrology Routine Consulting Provider: [facility] Reason for consultation: ESRD Has provider been notified: No 08/22/24 19:03 Consult to Hematology / Oncology Routine Consulting Provider: [facility] [place] Reason for consultation: thrombocytopenia Has provider been notified: No 08/23/24 20:54 Consult to Infectious Diseases Routine Consulting Provider: [facility] [place] [facility] Reason for consultation: recurrent cdiff DS: Diagnosis Discharge Diagnosis (1) Thrombocytopenia: Status: Chronic (2) End stage renal disease: Status: Acute DS: Summary Hospital Course Hospital Course: admission hpi Chief Complaint: Chest pain and blood in the stool 78-year-old male with history of BPH, recurrent C. dif colitis and diarrhea, hyperlipidemia, hypertension, history of alcohol use disorder, mild cognitive impairment, sick sinus syndrome status post pacemaker placement, ESRD on hemodialysis (Sun/Sun/Sun)?he did not go today?chronic thrombocytopenia, and frequent hospitalizations. His last hospitalization was from 06/02 to 06/18, during which he was treated for anemia, GI bleeding, thrombocytopenia, and extensive DVT of the left leg. An IVC filter was placed at that time, as he could not be anticoagulated. While getting ready for dialysis today, he experienced intermittent substernal, squeezing chest pain. CTA was negative for PE. ECG showed no acute ischemic changes. Troponin I was elevated, trending down from 143 to 134. He had melena in the ED, with a drop in hemoglobin from 8.5 to 6.9. Platelet count was 26, which is consistent with his chronic baseline. He did no attend dialysis Hospital course: 78-year-old male with history of BPH, recurrent C diff colitis, hyperlipidemia, hypertension, history of alcohol use disorder, mild cognitive impairments, sick sinus syndrome s/p pacemaker placement, ESRD on HD MWF, chronic thrombocytopenia, history of pancolitis, history of extensive LLE DVT in may 2024 here with chest pain, Melana/gib and acute blood loss anemia. Chest pain, ruled out NSTEMI, with intermediate trop of 143 down to 134. He is a very complex patient with multiple comorbidities elevated trops likely d/t anemia and possible from CKD Cardiology performed echo at bedside showing low-normal ejection fraction without any significant new regional wall motion abnormalities. Right luis tricular function improved Cardiology recommending transfusion as anticoagulation can not be performed secondary to GI bleed and thrombocytopenia Conservative management otherwise Acute on chronic GIB bleeding and acute on chronic blood loss anemia He's was transfused RBC 08/22, H/H has dropped some but ok, hgb 9.1 PO PPI at discharge GI consulation: conservative management Monitor H/H and obviously avoid antiplat and anticoagulants Known LLE DVT, swollen leg, has IVC in place, not candidate for antiocoagulation d/t recurrent gi bleedinga and low platlets ESRD on HD MWF, He belongs to [facility] Nephro consult, he missed dialysis yesterday. Underwent today Recurrent Cdif, presently says he has little diarrhea which is chronic and has been on Dificid, iD think recurrent colonization and recommend continue with vanco preventively Acute on chronic thrombocytopenia, this has been chronic issue, etiology is not certain and likely multifactorial, Monitor for now and if dropping consider transfusion, in past was on eliquis but no longer on it. Transfused platlets, no active bleed plat is now 40. Hematology recommemd either prednisone or decadron for for ipt and outpatient follow up for bone marrow biopsy, he wants prednisone as he does not want to take many pills of dexamethasone Paroxysmal atrial fibrillation-rate controlled Has been on cardizemm amio and metoprolol in the past..BPs have been low so cardizem and metoprolol have been stopp and will ad low dose metoprolol 25 bid Hypertension, BP on low side, changing metoprolol to 25 bid and stopping cardizem Sick sinus syndrome Pacemaker in place DVT prophylaxis: compression device Time Attestation Discharge Coordination Time (in mins): 45 Quality: Safe Use of Opioids Does Pt have an Active Cancer Diagnosis on the Problem List?: No Quality: Stroke Does the patient have a stroke diagnosis?: No Physical Exam Vital Signs: Vital Signs: Last Vital Signs Temp 97.9 F 08/29/24 07:30 Pulse 73 08/29/24 07:30 Resp 17 08/29/24 07:30 BP 131/61 08/29/24 07:30 Pulse Ox 95 08/29/24 07:30 O2 Del Method Room Air 08/29/24 07:30 BMI result Body Mass Index 17.6 DS: Data Data Completed and Pending Completed studies during hospitalization [Text1]: Procedures Bypass Right Kidney Pelvis to Cutaneous with Synthetic Substitute, Percutaneous Approach (03/25/24) Control Bleeding in Gastrointestinal Tract, Via Natural or Artificial Opening Endoscopic (03/25/24) Destruction of Stomach, Pylorus, Via Natural or Artificial Opening Endoscopic (06/18/22) Excision of Ascending Colon, Via Natural or Artificial Opening Endoscopic, Diagnostic (06/18/22) Excision of Descending Colon, Via Natural or Artificial Opening Endoscopic, Diagnostic (06/18/22) Excision of Duodenum, Via Natural or Artificial Opening Endoscopic, Diagnostic (06/18/22) Excision of Rectum, Via Natural or Artificial Opening Endoscopic, Diagnostic (06/18/22) Excision of Stomach, Pylorus, Via Natural or Artificial Opening Endoscopic, Diagnostic (06/18/22) Insertion of Infusion Device into Right Atrium, Percutaneous Approach (03/25/24) Insertion of Infusion Device into Right Internal Jugular Vein, Percutaneous Approach (03/25/24) Insertion of Infusion Device into Superior Vena Cava, Percutaneous Approach (06/02/24) Insertion of Intraluminal Device into Inferior Vena Cava, Percutaneous Approach (06/02/24) Insertion of Pacemaker Lead into Right Atrium, Percutaneous Approach (06/18/22) Insertion of Pacemaker Lead into Right Ventricle, Percutaneous Approach (06/18/22) Insertion of Pacemaker, Dual Chamber into Chest Subcutaneous Tissue and Fascia, Open Approach (06/18/22) Insertion of Tunneled Vascular Access Device into Chest Subcutaneous Tissue and Fascia, Percutaneous Approach (06/02/24) Inspection of Ureter, Via Natural or Artificial Opening Endoscopic (03/25/24) Introduction of Mineral-based Topical Hemostatic Agent into Lower GI, Via Natural or Artificial Opening Endoscopic, [employer] (11/09/22) Introduction of Mineral-based Topical Hemostatic Agent into Upper GI, Via Natural or Artificial Opening Endoscopic, [employer] (03/25/24) Introduction of Vasopressor into Peripheral Vein, Percutaneous Approach (03/25/24) Occlusion of Inferior Mesenteric Artery with Intraluminal Device, Percutaneous Approach (11/09/22) Performance of Urinary Filtration, Intermittent, Less than 6 Hours Per Day (06/02/24) Removal of Tunneled Vascular Access Device from Trunk Subcutaneous Tissue and Fascia, Open Approach (03/25/24) Transfusion of Nonautologous Platelets into Peripheral Vein, Percutaneous Approach (06/02/24) Transfusion of Nonautologous Red Blood Cells into Peripheral Vein, Percutaneous Approach (06/02/24) Ultrasonography of Right Jugular Veins, Guidance (03/25/24) Ultrasonography of Superior Vena Cava, Guidance (06/02/24) Labs on day of discharge: Laboratory Results - last 24 hr 08/26/24 08/29/24 16:00 07:31 WBC 11.2 H RBC 3.13 L Hgb 9.1 L Hct 30.1 L MCV 96.2 MCH 29.1 MCHC 30.2 L RDW 17.3 H Plt Count 40 L D MPV 10.9 Absolute Nucleated RBC 0.000 Nucleated RBC % (auto) 0.0 Blood Type A Positive Antibody Screen NEGATIVE Discharge Plan Discharge Anticipated Discharge Date/Time: 08/29/24 11:27 Patient Disposition: Home Health Service Discharge Diagnosis: Acute blood loss anemia, Thrombocytopenia, recurrent cdif Referrals: [facility] [Outside] - 1 Week Nitza Abdul MD [Physician, Hematology & Oncology] - 1 Week Joao Duncan MD [Primary Care Provider, Internal Medicine] - 1 Week Discharge Medications: New midodrine 5 mg Tablet 5 mg PO TID Qty: 270 0RF metoprolol tartrate 25 mg tablet 25 mg PO BID Qty: 60 0RF prednisone 20 mg tablet See Taper PO DAILY Qty: 35 0RF Taper: Prednisone 60 mg daily for 7 Days and 0 Hour 40 mg daily for 7 Days and 0 Hour Continued (EFRAIN) [place] [facility] [place] .Route Qty: 1 0RF Rx Instructions: As directed vancomycin 125 mg capsule 125 mg PO MOWEFR lidocaine 4 % Cream 1 appl TOPICAL DAILY PRN (Reason: Itching) hydrocortisone 2.5 % Cream With Perineal Applicator 1 appl WA QID PRN (Reason: Itching) ammonium lactate 12 % Lotion 1 appl TOPICAL DAILY PRN (Reason: Dry Skin) pantoprazole 20 mg Tablet,Delayed Release (Dr/Ec) 20 mg PO DAILY@0630 cholestyramine (with sugar) 4 gram powder in packet 1 ea PO DAILY amiodarone 200 mg tablet 200 mg PO DAILY Qty: 90 1RF Rx Instructions: After loading dose. Discontinued metoprolol succinate 50 mg tablet extended release 24 hr 75 mg PO DAILY Qty: 90 3RF diltiazem HCl 240 mg Capsule,Extended Release 24hr 240 mg PO DAILY Discharge Orders: Discharge Order (Routine); Ordered 08/29/24 Ordered By: Facundo Addison Diet: Advance to usual diet Activity on Discharge: As tolerated Stand Alone Forms: Patient Portal Discharge page Print Language: Yi Care Plan Goals: recovery from anemia, cdif, and low platlets Health Concerns: recurrent cdif, low platlets, anemia, elevated troponin I Plan of Treatment: stop taking cardizem and metoprolol take midodrine 5 mg 3times a day Take Prednisone 60 mg daily for 1 week, then 40 mg daily for 1 week. You should be seen in the Hematology office and prescribe more Assessment: see above
--- NOTE | 2024-08-29 12:08 | MHC.CLN ---
F/U PO INTAKE VARIABLE RANGING FROM 0-100% DIET RX: REGULAR-APPROPRIATE RECEIVING ENSURE BID TO PROVIDE 700KCALS, 40G PROTEIN CONTINUE TO MONITOR PO INTAKE AND ENCOURAGE SUPPLEMENTS
--- NOTE | 2024-08-29 14:21 | MHC.CM.PN ---
Pt. has been medically cleared to [place], he will call his family to pick him up, he will resume his home care services from [facility].
--- OUTSIDE RECORDS SUMMARY | 2024-09-12 20:00 | XMS_ITS | Clinical Summary ---
Author Organization Unknown Care Team Providers Care Rigger Helper Name Role Phone WINSTON JOHNSON, MIHAELA Unavailable Unavailable OMER RN, ADMISSION NURSE, JONO Unavail able Unavailable CAILIN RN, HALLE Unavailable Unavailable CONSTANZA OT, ARIA Unavailable Unavailable Payers Payer Name Policy Type Policy Number Effective Date Expira tion Date MEDICARE - [facility] [place] - PDGM [id number] Problems Condition Name Condition Details Condition Category Status Onset Date Resolution Date Last Treatment Date Treating Clinician Comments OTHER PERSISTENT ATRIAL FIBRILLATION Active 02-12 00:00: 00 HYP CHR KIDNEY DISEASE W STAGE 5 CHR KIDNEY DISEASE OR ESRD Active 02-12 00:00: 00 END STAGE RENAL DISEASE Active 02-12 00:00: 00 DEPENDENCE ON RENAL DIALYSIS Active 02-12 00:00: 00 UNSPECIFIED PROTEIN-SLICK KENROY MALNUTRITION Active 02-12 00:00: 00 ACUTE EMBOLISM AND THROMBOSIS OF DEEP VEIN OF L LOW EXTREM Active 02-12 00:00: 00 SICK SINUS SYNDROME Active 02-12 00:00: 00 THROMBOCYTOP ENIA, UNSPECIFIED Active 02-12 00:00: 00 OTH DISORDERS OF PLASMA-PROTE IN METABOLISM, NEC Active 02-12 00:00: 00 OTHER SPECIFIED DISEASES OF BILIARY TRACT Active 02-12 00:00: 00 ENTEROCOLITI S D/T CLOSTRIDIUM DIFFICILE, NOT SPCF RECUR Active 02-12 00:00: 00 GASTRO-ESOPH AGEAL REFLUX DISEASE WITHOUT ESOPHAGITIS Active 02-12 00:00: 00 HYPO-OSMOLAL ITY AND HYPONATREMIA Active 02-12 00:00: 00 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 Active 02-12 00:00: 00 UNSPECIFIED OSTEOARTHRIT IS, UNSPECIFIED SITE Active 02-12 00:00: 00 PURE HYPERCHOLEST EROLEMIA, UNSPECIFIED Active 02-12 00:00: 00 ALCOHOL ABUSE, UNCOMPLICATE D Active 02-12 00:00: 00 OBESITY, UNSPECIFIED Active 02-12 00:00: 00 BODY MASS INDEX [BMI] 19.9 OR LESS, ADULT Active 02-12 00:00: 00 PERSONAL HISTORY OF URINARY (TRACT) INFECTIONS Active 02-12 00:00: 00 PERSONAL HISTORY OF MALIGNANT NEOPLASM OF BLADDER Active 02-12 00:00: 00 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 Ordering Clinician Indication Dosage Frequency Signature (SIG) Comments Components amiodarone 200 mg tablet 05-17 00:00: 00 Yes [id number] 1 tablet DAILY 1 tablet DAILY (route: oral) Med Classific ation: Cardiovas cular Therapy Agents ascorbic acid (vitamin C) 250 mg tablet 05-17 00:00: 00 Yes [id number] 1 tablet 2 TIMES DAILY 1 tablet 2 TIMES DAILY (route: oral) Med Classific ation: Electroly te Balance-N utritiona l Products Cholestyram ine Light 4 gram oral powder 05-17 00:00: 00 Yes [id number] 4 gram 2 TIMES DAILY 4 gram 2 TIMES DAILY (route: oral) Med Classific ation: Cardiovas cular Therapy Agents ferrous sulfate 325 mg (65 mg iron) tablet 05-17 00:00: 00 Yes [id number] 1 tablet 2 TIMES DAILY 1 tablet 2 TIMES DAILY (route: oral) Med Classific ation: Electroly te Balance-N utritiona l Products metoprolol tartrate 25 mg tablet 05-17 00:00: 00 Yes [id number] 1 tablet 2 TIMES DAILY 1 tablet 2 TIMES DAILY (route: oral) Med Classific ation: Cardiovas cular Therapy Agents pantoprazol e 20 mg tablet,april yed release 05-17 00:00: 00 Yes [id number] 1 tablet DAILY 1 tablet DAILY (route: oral) Med Classific ation: Gastroint estinal Therapy Agents Tylenol 325 mg tablet 05-17 00:00: 00 Yes [id number] 2 tablet NEEDED 2 tablet NEEDED (route: oral) Med Classific ation: Analgesic , Anti-infl ammatory or Antipyret ic vancomycin 125 mg capsule 06-19 00:00: 00 Yes [id number] 1 capsule 2 TIMES DAILY 1 capsule 2 TIMES DAILY (route: oral) Med Classific ation: Anti-Infe ctive Agents Benadryl 25 mg capsule 07-08 00:00: 00 Yes [id number] 1 capsule DAILY 1 capsule DAILY (route: oral) Med Classific ation: Respirato ry Therapy Agents Pain Relief (lidocaine) 4 % topical cream 07-08 00:00: 00 Yes [id number] 1 inch NEEDED 1 inch NEEDED (route: topical) Med Classific ation: Dermatolo gical Immunizations Ordered Immunization Name Filled Immunization Name Date Status Comments Refusal Reason COVID-19, COVID-19 2024-05-17 00:00:00 Vital Signs Vital Name Observation Time Observation Value Commen ts Temperature 2024-08-21 10:56:00.000 98 [degF] Temperature 2024-08-14 11:36:00.000 98.5 [degF] Temperature 2024-08-14 11:30:00.000 97.1 [degF] Temperature 2024-08-05 13:40:00.000 99.1 [degF] Temperature 2024-08-05 13:38:00.000 99.1 [degF] Temperature 2024-07-31 13:17:00.000 97.6 [degF] Temperature 2024-07-31 12:04:00.000 98 [degF] Temperature 2024-07-22 12:02:00.000 97.6 [degF] Temperature 2024-07-22 10:41:00.000 97.4 [degF] Pulse 2024-08-21 10:56:00.000 74 /min Pulse 2024-08-14 11:36:00.000 82 /min Pulse 2024-08-14 11:30:00.000 77 /min Pulse 2024-08-05 13:40:00.000 79 /min Pulse 2024-08-05 13:39:00.000 79 /min Pulse 2024-07-31 13:17:00.000 72 /min Pulse 2024-07-31 12:04:00.000 77 /min Pulse 2024-07-22 12:02:00.000 74 /min Pulse 2024-07-22 10:41:00.000 62 /min O2 Saturation (%) 2024-08-21 10:56:00.000 95 % O2 Saturation (%) 2024-08-14 11:36:00.000 99 % O2 Saturation (%) 2024-08-05 13:40:00.000 97 % O2 Saturation (%) 2024-07-31 12:04:00.000 99 % O2 Saturation (%) 2024-07-22 10:41:00.000 95 % Respirations 2024-08-21 10:56:00.000 16 /min Respirations 2024-08-14 11:30:00.000 15 /min Respirations 2024-08-05 13:40:00.000 18 /min Respirations 2024-08-05 13:27:00.000 18 /min Respirations 2024-07-31 13:17:00.000 18 /min Respirations 2024-07-31 12:04:00.000 18 /min Respirations 2024-07-22 12:02:00.000 18 /min Respirations 2024-07-22 10:41:00.000 14 /min Weight (lbs) 2024-08-21 10:57:00.000 111 [lb_av] Systolic Blood Pressure 2024-08-21 10:56:00.000 102 mm [Hg] Systolic Blood Pressure 2024-08-14 11:36:00.000 100 mm [Hg] Systolic Blood Pressure 2024-08-14 11:30:00.000 90 mm[ Hg] Systolic Blood Pressure 2024-08-05 13:40:00.000 114 mm [Hg] Systolic Blood Pressure 2024-08-05 13:40:00.000 114 mm [Hg] Systolic Blood Pressure 2024-07-31 13:17:00.000 130 mm [Hg] Systolic Blood Pressure 2024-07-31 12:04:00.000 128 mm [Hg] Systolic Blood Pressure 2024-07-22 12:02:00.000 132 mm [Hg] Systolic Blood Pressure 2024-07-22 10:41:00.000 133 mm [Hg] Diastolic Blood Pressure 2024-08-21 10:56:00.000 60 mm [Hg] Diastolic Blood Pressure 2024-08-14 11:36:00.000 62 mm [Hg] Diastolic Blood Pressure 2024-08-14 11:30:00.000 50 mm [Hg] Diastolic Blood Pressure 2024-08-05 13:40:00.000 60 mm [Hg] Diastolic Blood Pressure 2024-08-05 13:40:00.000 60 mm [Hg] Diastolic Blood Pressure 2024-07-31 13:17:00.000 84 mm [Hg] Diastolic Blood Pressure 2024-07-31 12:04:00.000 62 mm [Hg] Diastolic Blood Pressure 2024-07-22 12:02:00.000 84 mm [Hg] Diastolic Blood Pressure 2024-07-22 10:41:00.000 69 mm [Hg] Plan of Treatment Planned Activity Planned Date Details Comments Future Scheduled Test SKILLED NU RSE TO EVALUATE PATIENT, IDENTIFY PRIMARY AND CO-MORBID CONDITIONS CODED PER CODING GUIDELINES, AND DEVELOP PATIENT SPECIFIC PLAN OF CARE THAT INCLUDES PATIENT GOAL FOR HOME HEALTH. [code = SKILLED NURSE TO EVALUATE PATIENT, IDENTIFY PRIMARY AND CO-MORBID CONDITIONS CODED PER CODING GUIDELINES, AND DEVELOP PATIENT SPECIFIC PLAN OF CARE THAT INCLUDES PATIENT GOAL FOR HOME HEALTH.] Future Scheduled Test SKILLED NU RSE TO PROVIDE TEACHING/REINFORCEMENT RELATED TO URINARY INCONTINENCE. [code = SKILLED NURSE TO PROVIDE TEACHING/REINFORCEMENT RELATED TO URINARY INCONTINENCE.] Future Scheduled Test SKILLED NU RSE MAY COLLECT URINE SAMPLE FOR URINE REAGENT STRIP TESTING AND/OR URINALYSIS WITH CS 1-3 PRN IF INDICATED FOR SIGNS AND SYMPTOMS OF UTI. IF REAGENT STRIP TEST IS POSITIVE FOR UTI, SKILLED NURSE TO TAKE URINE SAMPLE TO LAB FOR URINE CS AND REPORT RESULTS TO PHYSICIAN. [code = SKILLED NURSE MAY COLLECT URINE SAMPLE FOR URINE REAGENT STRIP TESTING AND/OR URINALYSIS WITH CS 1-3 PRN IF INDICATED FOR SIGNS AND SYMPTOMS OF UTI. IF REAGENT STRIP TEST IS POSITIVE FOR UTI, SKILLED NURSE TO TAKE URINE SAMPLE TO LAB FOR URINE CS AND REPORT RESULTS TO PHYSICIAN.] Future Scheduled Test SKILLED NU RSE FOR INSTRUCTION/ REINFORCEMENT OF NEEDS RELATED TO NUTRITION/HYDRATION. [code = SKILLED NURSE FOR INSTRUCTION/ REINFORCEMENT OF NEEDS RELATED TO NUTRITION/HYDRATION. ] Future Scheduled Test SKILLED NU RSE FOR O/A, TEACHING RELATED TO GASTRITIS AND DUODENITIS, COLITIS AND ESOPHAGITIS FOR EARLY IDENTIFICATION OF EXACERBATION OF DISEASE PROCESS. [code = SKILLED NURSE FOR O/A, TEACHING RELATED TO GASTRITIS AND DUODENITIS, COLITIS AND ESOPHAGITIS FOR EARLY IDENTIFICATION OF EXACERBATION OF DISEASE PROCESS.] Future Scheduled Test SKILLED NU RSE FOR O/A, TEACHING AND MANAGEMENT OF ESRD FOR EARLY IDENTIFICATION OF EXACERBATION OF DISEASE PROCESS [code = SKILLED NURSE FOR O/A, TEACHING AND MANAGEMENT OF ESRD FOR EARLY IDENTIFICATION OF EXACERBATION OF DISEASE PROCESS] Future Scheduled Test SKILLED NU RSE FOR O/A AND SKILLED TEACHING RELATED TO SIGNS AND SYMPTOMS OF INFECTION AND INFECTION CONTROL MEASURES. [code = SKILLED NURSE FOR O/A AND SKILLED TEACHING RELATED TO SIGNS AND SYMPTOMS OF INFECTION AND INFECTION CONTROL MEASURES.] Future Scheduled Test SKILLED NU RSE FOR O/A AND SKILLED TEACHING IN MANAGEMENT OF DVT, THROMBOCYTOPENIA DISEASE. [code = SKILLED NURSE FOR O/A AND SKILLED TEACHING IN MANAGEMENT OF DVT, THROMBOCYTOPENIA DISEASE.] Future Scheduled Test PHYSICAL T HERAPIST TO EVALUATE PATIENT FOR GAIT TRAINING AND STRENGTHENING [code = PHYSICAL THERAPIST TO EVALUATE PATIENT FOR GAIT TRAINING AND STRENGTHENING] Future Scheduled Test SKILLED NU RSE TO INSTRUCT PATIENT/CAREGIVER ON SIGNS AND SYMPTOMS, RISK FACTORS, COMPLICATIONS, AND MANAGEMENT OF ATRIAL FIBRILLATION. [code = SKILLED NURSE TO INSTRUCT PATIENT/CAREGIVER ON SIGNS AND SYMPTOMS, RISK FACTORS, COMPLICATIONS, AND MANAGEMENT OF ATRIAL FIBRILLATION.] Future Scheduled Test SKILLED NU RSE TO PROVIDE TEACHING ON SIGNS AND SYMPTOMS AND MANAGEMENT OF HYPERTENSION. [code = SKILLED NURSE TO PROVIDE TEACHING ON SIGNS AND SYMPTOMS AND MANAGEMENT OF HYPERTENSION.] Future Scheduled Test SKILLED NU RSE FOR O/A AND SKILLED TEACHING RELATED TO SIGNS AND SYMPTOMS AND MANAGEMENT OF ACUTE BLOOD LOSS ANEMIA. [code = SKILLED NURSE FOR O/A AND SKILLED TEACHING RELATED TO SIGNS AND SYMPTOMS AND MANAGEMENT OF ACUTE BLOOD LOSS ANEMIA.] Future Scheduled Test PATIENT NELSON S A RISK OF HOSPITALIZATION AND ED USE. SKILLED NURSE TO ESTABLISH SUPPORT MEASURES TO MINIMIZE RISK OF HOSPITALIZATION AND ED USE, AND INSTRUCT PATIENT/CAREGIVER ON METHODS TO REDUCE AVOIDABLE HOSPITALIZATION AND ED USE. [code = PATIENT HAS A RISK OF HOSPITALIZATION AND ED USE. SKILLED NURSE TO ESTABLISH SUPPORT MEASURES TO MINIMIZE RISK OF HOSPITALIZATION AND ED USE, AND INSTRUCT PATIENT/CAREGIVER ON METHODS TO REDUCE AVOIDABLE HOSPITALIZATION AND ED USE.] Future Scheduled Test SKILLED NU RSE TO PROVIDE INSTRUCTION TO PATIENT/CAREGIVER RELATED TO DISCHARGE PLANNING. [code = SKILLED NURSE TO PROVIDE INSTRUCTION TO PATIENT/CAREGIVER RELATED TO DISCHARGE PLANNING.] Future Scheduled Test SKILLED NU RSE TO PERFORM ENVIRONMENTAL SAFETY RISK ASSESSMENT AND FALL RISK ASSESSMENT AND PROVIDE INSTRUCTION TO IMPLEMENT ENVIRONMENTAL SAFETY AND FALL PREVENTION STRATEGIES THROUGHOUT THE CERTIFICATION PERIOD. SKILLED NURSE WILL MAINTAIN SITUATIONAL AWARENESS AND WILL NOTIFY CLINICAL SUPERVISOR [employer] DEPARTMENT AND PHYSICIAN/PROVIDER WITH ANY CHANGE IN CONDITION. [code = SKILLED NURSE TO PERFORM ENVIRONMENTAL SAFETY RISK ASSESSMENT AND FALL RISK ASSESSMENT AND PROVIDE INSTRUCTION TO IMPLEMENT ENVIRONMENTAL SAFETY AND FALL PREVENTION STRATEGIES THROUGHOUT THE CERTIFICATION PERIOD. SKILLED NURSE WILL MAINTAIN SITUATIONAL AWARENESS AND WILL NOTIFY CLINICAL SUPERVISOR [employer] DEPARTMENT AND PHYSICIAN/PROVIDER WITH ANY CHANGE IN CONDITION.] Future Scheduled Test SKILLED NU RSE FOR OBSERVATION AND ASSESSMENT OF PATIENTS PAIN LEVEL AND EFFECTIVENESS OF PAIN MANAGEMENT REGIMEN. SKILLED NURSE TO INSTRUCT PATIENT/CAREGIVER REGARDING PHARMACOLOGIC AND NON-PHARMACOLOGIC PAIN CONTROL MEASURES. SKILLED NURSE TO REPORT TO PHYSICIAN IF PAIN LEVEL IS OUTSIDE OF ESTABLISHED PARAMETERS. [code = SKILLED NURSE FOR OBSERVATION AND ASSESSMENT OF PATIENTS PAIN LEVEL AND EFFECTIVENESS OF PAIN MANAGEMENT REGIMEN. SKILLED NURSE TO INSTRUCT PATIENT/CAREGIVER REGARDING PHARMACOLOGIC AND NON-PHARMACOLOGIC PAIN CONTROL MEASURES. SKILLED NURSE TO REPORT TO PHYSICIAN IF PAIN LEVEL IS OUTSIDE OF ESTABLISHED PARAMETERS.] Future Scheduled Test SKILLED NU RSE TO ASSESS PATIENT'S SKIN INTEGRITY AND INSTRUCT PATIENT/CAREGIVER ON MEASURES TO PREVENT PRESSURE ULCERS. [code = SKILLED NURSE TO ASSESS PATIENT'S SKIN INTEGRITY AND INSTRUCT PATIENT/CAREGIVER ON MEASURES TO PREVENT PRESSURE ULCERS.] Future Scheduled Test SKILLED NU RSE TO REVIEW PATIENT MEDICATIONS (PRESCRIPTION/OTC). INSTRUCT PATIENT/CAREGIVER ON ALL MEDICATIONS INCLUDING PURPOSE, WHEN TO TAKE, IMPORTANCE OF MEDICATION ADHERENCE, MONITORING OF EFFECTIVENESS, ADVERSE DRUG REACTIONS, POSSIBLE SIDE EFFECTS, AND WHEN TO NOTIFY AGENCY OR PHYSICIAN/PROVIDER OF ANY CONCERNS. [code = SKILLED NURSE TO REVIEW PATIENT MEDICATIONS (PRESCRIPTION/OTC). INSTRUCT PATIENT/CAREGIVER ON ALL MEDICATIONS INCLUDING PURPOSE, WHEN TO TAKE, IMPORTANCE OF MEDICATION ADHERENCE, MONITORING OF EFFECTIVENESS, ADVERSE DRUG REACTIONS, POSSIBLE SIDE EFFECTS, AND WHEN TO NOTIFY AGENCY OR PHYSICIAN/PROVIDER OF ANY CONCERNS.] Future Scheduled Test PHYSICAL T HERAPIST TO EVALUATE PATIENT SECONDARY TO FUNCTIONAL DEFICITS/SAFETY CONCERNS. PHYSICAL THERAPY TO ESTABLISH /UPGRADE/DOWNGRADE THERAPEUTIC EXERCISE PROGRAM AND INSTRUCT PATIENT/CAREGIVER ON EXERCISE PRECAUTIONS WITH WRITTEN HOME PROGRAM. MAY INCLUDE PROM, AAROM, AROM, RROM APPROPRIATE TO IMPROVE FUNCTIONAL STRENGTH AND RANGE OF MOTION. PHYSICAL THERAPY TO INSTRUCT PATIENT/CAREGIVER ON SAFE TRANSFER TECHNIQUES USING PROPER BODY MECHANICS AND EQUIPMENT. PHYSICAL THERAPY TO INSTRUCT PATIENT/CAREGIVER ON GAIT TRAINING TECHNIQUES USING APPROPRIATE ASSISTIVE DEVICE, PROPER BODY MECHANICS TO IMPROVE MOBILITY, AND PREVENT INJURY OF PATIENT AND/OR CAREGIVER. PHYSICAL THERAPY TO ASSESS AND RECOMMEND HOME SAFETY ADAPTATIONS AND EDUCATE PATIENT /CAREGIVER ON FALL PREVENTION STRATEGIES. PHYSICAL THERAPY TO INSTRUCT PATIENT/CAREGIVER ON BALANCE AND BALANCE STRATEGIES TO IMPROVE SAFE MOBILITY AND REDUCE RISK FOR FALL AND INJURY SUMMARY OF THERAPY EVAL/ASSESSMENT FINDINGS AND REASON(S) SKILLS OF A THERAPIST ARE INDICATED: PATIENT REFERRED DON'T PHYSICAL THERAPY AFTER FALL. PATIENT WITH MINIMAL PROGRESS DUE TO CANCEL VISITS. CONTINUES WITH BILATERAL LOWER EXTREMITY WEAKNESS GROSSLY 3/5. ASSISTANCE TIMES ONE FOR TRANSFERS AND AMBULATION WITH FRONT-WHEELED WALKER UTILIZING WHEELCHAIR TO LEAVE HOME. ZERO REPETITIONS OF CHAIR RISE TEST. PATIENT HAS FOUR STEPS WITH BILATERAL RAILS TO ENTER AND EXIT HOME. CAREGIVER REPORTS PATIENTS STRUGGLING WITH STAIRS NEEDS TO INCREASE STRENGTH AND MOBILITY ON STAIRS. WILL CONTINUE PHYSICAL THERAPY REINFORCED IMPORTANCE OF NOT CANCELING APPOINTMENTS FOR THERAPY AT THIS TIME. PATIENT AGREES WITH PLAN OF CARE. [code = PHYSICAL THERAPIST TO EVALUATE PATIENT SECONDARY TO FUNCTIONAL DEFICITS/SAFETY CONCERNS. PHYSICAL THERAPY TO ESTABLISH /UPGRADE/DOWNGRADE THERAPEUTIC EXERCISE PROGRAM AND INSTRUCT PATIENT/CAREGIVER ON EXERCISE PRECAUTIONS WITH WRITTEN HOME PROGRAM. MAY INCLUDE PROM, AAROM, AROM, RROM APPROPRIATE TO IMPROVE FUNCTIONAL STRENGTH AND RANGE OF MOTION. PHYSICAL THERAPY TO INSTRUCT PATIENT/CAREGIVER ON SAFE TRANSFER TECHNIQUES USING PROPER BODY MECHANICS AND EQUIPMENT. PHYSICAL THERAPY TO INSTRUCT PATIENT/CAREGIVER ON GAIT TRAINING TECHNIQUES USING APPROPRIATE ASSISTIVE DEVICE, PROPER BODY MECHANICS TO IMPROVE MOBILITY, AND PREVENT INJURY OF PATIENT AND/OR CAREGIVER. PHYSICAL THERAPY TO ASSESS AND RECOMMEND HOME SAFETY ADAPTATIONS AND EDUCATE PATIENT /CAREGIVER ON FALL PREVENTION STRATEGIES. PHYSICAL THERAPY TO INSTRUCT PATIENT/CAREGIVER ON BALANCE AND BALANCE STRATEGIES TO IMPROVE SAFE MOBILITY AND REDUCE RISK FOR FALL AND INJURY SUMMARY OF THERAPY EVAL/ASSESSMENT FINDINGS AND REASON(S) SKILLS OF A THERAPIST ARE INDICATED: PATIENT REFERRED DON'T PHYSICAL THERAPY AFTER FALL. PATIENT WITH MINIMAL PROGRESS DUE TO CANCEL VISITS. CONTINUES WITH BILATERAL LOWER EXTREMITY WEAKNESS GROSSLY 3/5. ASSISTANCE TIMES ONE FOR TRANSFERS AND AMBULATION WITH FRONT-WHEELED WALKER UTILIZING WHEELCHAIR TO LEAVE HOME. ZERO REPETITIONS OF CHAIR RISE TEST. PATIENT HAS FOUR STEPS WITH BILATERAL RAILS TO ENTER AND EXIT HOME. CAREGIVER REPORTS PATIENTS STRUGGLING WITH STAIRS NEEDS TO INCREASE STRENGTH AND MOBILITY ON STAIRS. WILL CONTINUE PHYSICAL THERAPY REINFORCED IMPORTANCE OF NOT CANCELING APPOINTMENTS FOR THERAPY AT THIS TIME. PATIENT AGREES WITH PLAN OF CARE.] Goal Patient Goal - T O STAY OUT OF THE HOSPITAL Goal 2024-07-15 Patient Goal - T O STAY OUT OF THE HOSPITAL Goal 2024-06-24 Patient Goal - T O STAY OUT OF THE HOSPITAL Goal Provider Goal - A PLAN OF CARE WILL BE ESTABLISHED THAT MEETS PATIENT'S [facility] NEEDS AND INCLUDES PATIENT GOAL FOR HOME HEALTH. Goal Provider Goal - PATIENT / CAREGIVER WILL VERBALIZE UNDERSTANDING OF EFFECTS OF URINARY INCONTINENCE BY THE END OF THE CERTIFICATION PERIOD. Goal Provider Goal - URINE SPECIMEN WILL BE OBTAINED PRN FOR SIGNS AND SYMPTOMS OF UTI AND RESULTS WILL BE REPORTED TO PHYSICIAN THROUGHOUT THE CERTIFICATION PERIOD. Goal Provider Goal - PATIENT/CAREGIVER WILL DEMONSTRATE ABILITY TO SELF MANAGE NEEDS RELATED TO NUTRITION/HYDRATION THROUGHOUT THE EPISODE. Goal Provider Goal - EXACERBATIONS OF GASTRITIS AND DUODENITIS, COLITIS AND ESOPHAGITIS. GASTROINTESTINAL DISEASE WILL BE PROMPTLY IDENTIFIED AND INTERVENTIONS IMPLEMENTED TO MINIMIZE RISKS TO PATIENT BY END OF EPISODE. Goal Provider Goal - PATIENT/CAREGIVER WILL VERBALIZE UNDERSTANDING OF ESRD GENITOURINARY DISEASE PROCESS, AND EXACERBATIONS OF GENITOURINARY DISEASE WILL BE PROMPTLY IDENTIFIED FOR EARLY INTERVENTION THROUGHOUT THE CERTIFICATION PERIOD. Goal Provider Goal - PATIENT/CAREGIVER WILL VERBALIZE/DEMONSTRATE UNDERSTANDING OF S/S OF INFECTION AND INFECTION CONTROL MEASURES. SIGNS AND SYMPTOMS OF INFECTION WILL BE IDENTIFIED AND PHYSICIAN NOTIFIED FOR PROMPT INTERVENTION THROUGHOUT THE CERTIFICATION PERIOD. Goal Provider Goal - PATIENT/CAREGIVER WILL VERBALIZE/DEMONSTRATE THE ABILITY TO MANAGE CIRCULATORY DISEASE PROCESS AND EXACERBATIONS WILL BE IDENTIFIED FOR EARLY INTERVENTION THROUGHOUT THE CERTIFICATION PERIOD. Goal Provider Goal - A PHYSICAL THERAPY EVALUATION TO BE COMPLETED WITH RECOMMENDATIONS AND/OR WRITTEN PLAN OF TREATMENT ESTABLISHED FOR PHYSICIANS SIGNATURE. Goal Provider Goal - PATIENT/CAREGIVER WILL VERBALIZE UNDERSTANDING OF SIGNS AND SYMPTOMS, COMPLICATIONS, AND MANAGEMENT OF ATRIAL FIBRILLATION THROUGHOUT THE CERTIFICATION PERIOD. Goal Provider Goal - PATIENT/CAREGIVER WILL VERBALIZE SIGNS AND SYMPTOMS OF HYPERTENSION AND WILL BE ABLE TO DEMONSTRATE ABILITY TO MANAGE EXACERBATION BY END OF THE EPISODE. Goal Provider Goal - PATIENT/CARGIVER WILL VERBALIZE UNDERSTANDING OF ACUTE BLOOD LOSS ANEMIA INCLUDING SIGNS AND SYMPTOMS, MANAGEMENT OF COMPLICATIONS, AND PRESCRIBED TREATMENT REGIMEN BY END OF EPISODE. Goal Provider Goal - PATIENT WILL HAVE SUPPORT MEASURES ESTABLISHED TO PREVENT HOSPITALIZATION AND ED USE AND PATIENT/CAREGIVER WILL VERBALIZE/DEMONSTRATE METHODS TO REDUCE AVOIDABLE HOSPITALIZATION AND ED USE BY END OF EPISODE. Goal Provider Goal - PATIENT/CAREGIVER WILL VERBALIZE UNDERSTANDING OF DISCHARGE PLANNING INSTRUCTIONS BY DATE OF DISCHARGE. Goal Provider Goal - PATIENT/CAREGIVER WILL VERBALIZE/DEMONSTRATE EFFECTIVE ENVIRONMENTAL SAFETY AND FALL PREVENTION STRATEGIES, WILL REMAIN SAFE IN THE COMMUNITY, AND WILL BE FREE OF DANGER TO SELF AND OTHERS THROUGHOUT THE CERTIFICATION PERIOD. Goal Provider Goal - PATIENT/CAREGIVER WILL DEMONSTRATE UNDERSTANDING OF PHARMACOLOGIC AND NONPHARMACOLOGIC PAIN CONTROL MEASURES AND PATIENT WILL HAVE IMPROVEMENT IN PAIN INTERFERING WITH ACTIVITY EVIDENCED BY PAIN AT A LEVEL THAT IS ACCEPTABLE TO THE PATIENT AND PAIN LEVEL WITHIN ESTABLISHED PARAMETERS BY END OF CERTIFICATION PERIOD. Goal Provider Goal - PATIENT/CAREGIVER WILL VERBALIZE UNDERSTANDING OF PRESSURE ULCER PREVENTION BY END OF THE EPISODE. Goal Provider Goal - PATIENT/CAREGIVER WILL VERBALIZE UNDERSTANDING OF EDUCATION PROVIDED ON MEDICATIONS BY THE END OF THE CERTIFICATION PERIOD. Goal Provider Goal - PHYSICAL THERAPY EVALUATION TO BE COMPLETED WITH RECOMMENDATIONS AND/OR WRITTEN TREATMENT PLAN OF CARE ESTABLISHED FOR THE PHYSICIANS SIGNATURE PATIENT/CAREGIVER WILL PERFORM THERAPEUTIC EXERCISE/S AND DEMONSTRATE PARTICIPATION IN A HOME PROGRAM. PATIENT/CAREGIVER WILL DEMONSTRATE SAFE TRANSFERS USING APPROPRIATE ASSISTIVE DEVICE, BODY MECHANICS AND EQUIPMENT. PATIENT/CAREGIVER WILL DEMONSTRATE IMPROVED GAIT TECHNIQUES TO MINIMIZE RISK OF INJURY. PATIENT/CAREGIVER WILL DEMONSTRATE/VERBALIZE UNDERSTANDING OF RECOMMENDATIONS TO INCREASE SAFETY IN THE HOME AND FALL PREVENTION. PATIENT/CAREGIVER WILL DEMONSTRATE IMPROVED BALANCE AND REDUCE THE RISK OF FALLS AND INJURY. Progress Notes Progress Notes <paragraph>[Visit Date: 2024 by RAY TEMPLE LPN]:</paragraph><paragraph>SNV 08/21 ABNORMAL VITALS: WT 111 FALLS: NO FALLS MEDICATION CHANGES: NO CHANGES OBSERVATION AND ASSESSMENT PROVIDED: PATIENT IS ALERT AND ORIENTED X3 ALTHOUGH APPEARS TIRED WHILE RESTING IN BED. PATIENT IS AGREEABLE TO THE VISIT. REPORTS HAVING MET WITH INFECTIOUS DISEASE EARLIER THIS WEEK AND COMPLETED DIALYSIS YESTERDAY. DENIES PAIN. REPORTS EXPERIENCING FREQUENT LOOSE BOWEL MOVEMENTS PER USUAL. PATIENT REPORTS POOR APPETITE, WEAKNESS, STATING THAT HE TYPICALLY CONSUMES ONLY 1 SMALL MEAL PER DAY, NOT TOLERATING ENSURE. CONCERNED ABOUT FLUID INTAKE. PATIENT REQUESTED THIS NURSE CONTACT PCP TO DISCUSS POSSIBILITY OF APPETITE STIMULANT TO IMPROVE NUTRITIONAL INTAKE. CALL MADE TO PCP MADE WITH ABOVE INFORMATION. PATIENT APPEARS FRAIL AND WEAK. VITAL SIGNS ARE STABLE. PATIENT ABLE TO SPEAK IN FULL SENTENCES. NO SIGNS OF ACUTE DISTRESS. NO EDEMA NOTED IN EXTREMITIES. PATIENT VOIDING 1-2 TIMES A DAY. EDUCATION: REINFORCED THE IMPORTANCE OF HYDRATION, DISCUSSED REQUIREMENTS. MONITOR FOR SYMPTOMS OF SEVERE DEHYDRATION, CONFUSION IRRITABILITY, OR LETHARGY, SEVERE FATIGUE, CALL 911 IF THESE SYMPTOMS OCCUR. INTERVENTIONS NEEDED AT NEXT VISIT: ASSESSMENT TEACHING COMMUNICATION WITH MD: PCP NEXT MD APPOINTMENT: DIALYSIS FRI PT AND CAREGIVER INSTRUCTED TO CALL [facility] WITH ANY QUESTIONS OR CONCERNS AND/OR CHANGES IN CONDITION, STATE UNDERSTANDING</paragraph> Encounters Start Date/Time End Date/Time Encounter Type Admission Type Attending Clinicians Care Facility Care Department Encounter ID Discharge Date Discharge Status Discharge Condition Discharge Reason Percent Goals Met 2024-07-16 00:00:00 2024-09-13 00:00:00 Outpatient [facility] [id number] 24.14
== END 2024-08-29 16:20 | disposition home health service (06) | DRG 371 ==
LOC: HO.ED 16:51 → HO.EDOVER 17:01 → HO.S3 19:59 → HO.EDOVER 20:17 → HO.IMC 08-23 15:28
PROVIDERS: Internal Medicine; Physician Assistant; Student in an Organized Health Care Education/Training Program; Admitting Provider Internal Medicine; Emergency Provider Emergency Medicine; PCP Internal Medicine; Referring Provider Emergency Medicine; Visit Provider Internal Medicine
DX: A04.71 Enterocolitis due to Clostridium difficile, recurrent (principal); N18.6 End stage renal disease; D62 Acute posthemorrhagic anemia; I12.0 Hypertensive chronic kidney disease with stage 5 chronic kidney disease or end stage renal disease; K92.1 Melena; D69.6 Thrombocytopenia, unspecified; I49.5 Sick sinus syndrome; D63.1 Anemia in chronic kidney disease; I48.0 Paroxysmal atrial fibrillation; I95.9 Hypotension, unspecified; Z95.0 Presence of cardiac pacemaker; Z99.2 Dependence on renal dialysis; Z85.048 Personal history of other malignant neoplasm of rectum, rectosigmoid junction, and anus; Z86.718 Personal history of other venous thrombosis and embolism; Z79.899 Other long term (current) drug therapy
CPT/HCPCS: 36415; 71045; 71275; 80048; 80053; 80076; 80202; 82272; 83605; 83735; 83880; 84484; 85025; 85027; 85384; 85610; 85730; 86850; 86900; 86901; 86923; 87040; 87324; 87493; 87507; 90999; 93005; 93308; 99285; J0613; J1610; J2470; J3374; J3475; J7120; P9016; P9047; P9073; Q9967

== ENCOUNTER → 2024-08-22 08:56 | Outpatient (BNV) | payer OTHER, SELFPAY | PROVIDERS: Emergency Provider Emergency Medicine; PCP Internal Medicine; Visit Provider Radiology Diagnostic Radiology | DX: J43.2 Centrilobular emphysema (principal); J90 Pleural effusion, not elsewhere classified; J44.9 Chronic obstructive pulmonary disease, unspecified; Z95.0 Presence of cardiac pacemaker | CPT/HCPCS: 71045; 71275 ==

== ENCOUNTER 2024-08-22 16:52 | Outpatient (BNV) | payer OTHER, SELFPAY | END 2024-08-24 01:52 | PROVIDERS: Admitting Provider Internal Medicine; Emergency Provider Emergency Medicine; PCP Internal Medicine; Visit Provider Internal Medicine Cardiovascular Disease | DX: I45.81 Long QT syndrome (principal) | CPT/HCPCS: 93010 ==

== ENCOUNTER → 2024-08-22 16:52 | Outpatient (BNV) | payer OTHER, SELFPAY | PROVIDERS: Admitting Provider Internal Medicine; Emergency Provider Emergency Medicine; PCP Internal Medicine; Visit Provider Internal Medicine | DX: K92.1 Melena (principal); A04.71 Enterocolitis due to Clostridium difficile, recurrent | CPT/HCPCS: 99232 ==

== ENCOUNTER → 2024-08-22 16:52 | Outpatient (BNV) | payer OTHER, SELFPAY | PROVIDERS: Admitting Provider Internal Medicine; Emergency Provider Emergency Medicine; PCP Internal Medicine; Visit Provider Internal Medicine Cardiovascular Disease | DX: R07.9 Chest pain, unspecified (principal); R94.31 Abnormal electrocardiogram [ECG] [EKG] | CPT/HCPCS: 93010; 93308; 99223 ==

== ENCOUNTER → 2024-08-22 16:52 | Outpatient (BNV) | payer OTHER, SELFPAY | PROVIDERS: Admitting Provider Internal Medicine; Emergency Provider Emergency Medicine; PCP Internal Medicine; Visit Provider Internal Medicine | DX: D69.6 Thrombocytopenia, unspecified (principal); C20 Malignant neoplasm of rectum | CPT/HCPCS: 99222; 99232 ==

== ENCOUNTER → 2024-08-22 16:52 | Outpatient (BNV) | payer OTHER, SELFPAY | PROVIDERS: Admitting Provider Internal Medicine; Emergency Provider Emergency Medicine; PCP Internal Medicine; Visit Provider Physician Assistant | DX: K92.1 Melena (principal); D69.6 Thrombocytopenia, unspecified; I21.4 Non-ST elevation (NSTEMI) myocardial infarction | CPT/HCPCS: 99223; 99232; 99233; 99499 ==

== ENCOUNTER → 2024-09-22 23:59 | Outpatient (BNV) | payer OTHER, SELFPAY ==
--- NOTE | 2024-09-24 19:46 | A.OFFVIS_ITS ---
Intake Visit Reasons: Remote device check- [facility] Allergies No Known Allergies (NKA) Allergy (Mild, Verified 08/22/24 08:52) NOT APPLICABLE PFS Medical History (Updated 09/06/24 @ 00:01 by Sofya Bell) Left leg DVT End stage renal disease Sick sinus syndrome ESRD (end stage renal disease) on dialysis Pacemaker UTI (urinary tract infection) Ileus C. difficile colitis Acute renal failure BPH (benign prostatic hyperplasia) Sinus bradycardia Recto-vesical fistula Postoperative hematoma involving digestive system following digestive system procedure Aftercare following left shoulder joint replacement surgery OA (osteoarthritis) Borderline hyperlipidemia Obesity HTN (hypertension) EtOH dependence Mild cognitive impairment Inhibited sex excitement Atrial fibrillation Cancer of kidney High cholesterol Hypertension Surgical History Rectal carcinoma Malignant neoplasm of rectum Rectal mass Encounter for interrogation of cardiac pacemaker Atrial fibrillation with rapid ventricular response Family History Mother Heart problem Social History Household Members: Spouse Housing: House Do you presently have visiting nurse or other home services: Yes Unable to assess alcohol history related to: Unable to respond Alcohol intake: unknown Comment: PATIENT BEDBOUND AT THIS TIME Patient Tobacco Use Status: Former Tobacco user Tobacco use type: Cigarette e-Cigarette/Vaping Use: Never Used Second Hand Smoke Exposure: No Advance Directives Date on File: 11/29/22 service: Yes Office Procedures Cardiac Device Check Cardiac Device Check Details: Date of service- 05/15/2024 ; Battery life >7 years; normal lead parameters; AP 14%; DELIVERY TABLE FEEDER <1%; high ventricular rate episodes but nothing persistent. AT/AF burden 1.6%. Overall normal device function. [id number] Cardiac Device Interrogation, pacemaker Procedure code (CPT) selection complete Assessment & Plan Assessment & Plan (1) Pacemaker: Code(s): Z95.0 - Presence of cardiac pacemaker Category: Medical (2) Atrial fibrillation: Code(s): I48.91 - Unspecified atrial fibrillation Category: Medical Plan x Coding Level of Care Code Procedure Only Diagnoses Pacemaker Z95.0 Atrial fibrillation I48.91 CPT Codes Cardiac Device Check - Cardiac Device 12: [id number] Cardiac Device Interrogation, pacemaker ([id number])
== END ==
PROVIDERS: PCP Internal Medicine; Visit Provider Internal Medicine
DX: I48.91 Unspecified atrial fibrillation (principal); Z95.0 Presence of cardiac pacemaker
CPT/HCPCS: 93294